=== PATIENT | male | born 2000 | race Caucasian/White ===

== ENCOUNTER 2020-04-01 05:00 | Emergency (ER) | payer OTHER ==
[2020-04-01 06:00] LABS: Basophils % 0.3 % (0-1.3); Hematocrit 43.2 % (39.6-49.0); Lymphocytes % 24.4 % (15.3-44.8); MPV 10.8 fL (7.6-11.3); RBC Red Blood Cell Count 4.96 M/uL (4.33-5.43)
[2020-04-01 06:04] LABS: ALT/SGPT 23 U/L (12-78); AST/SGOT 11 U/L (15-37); Albumin 3.6 g/dL (3.4-5.0); Alkaline Phosphatase 66 U/L (45-117); BUN Blood Urea Nitrogen 11 mg/dL (7-18); Bicarbonate 26 mmol/L (21-32); Bilirubin Direct < 0.1 mg/dL (0-0.2); Bilirubin Total 0.4 mg/dL (0.2-1.0); Glucose Level 102 mg/dL (74-106); Lipase 58 U/L (73-393); Potassium 3.6 mmol/L (3.5-5.1); Protein, Total 7.3 g/dL (6.4-8.2); Sodium Level 143 mmol/L (136-145)
[2020-04-01 07:46] LABS: Urine Blood NEGATIVE (NEG); Urine Glucose NEGATIVE (NEG); Urine Protein NEGATIVE (NEG); Urine Specific Gravity 1.025 (1.005-1.030)
--- NOTE | 2020-04-01 08:36 | RAD REPORT ---
EXAM DESCRIPTION: CTAbdomen Pelvis W Contrast - 04/01/2020 8:08 am CLINICAL HISTORY: Abdominal pain. ABD PAIN COMPARISON: No comparisons TECHNIQUE: Biphasic CT imaging of the abdomen and pelvis was performed with 100 ml non-ionic IV cont rast. All CT scans are performed using dose optimization technique as appropriate and may include automated exposure control or mA/KV adjustment according to patient size. FINDINGS: Mild linear opacities in both lung bases likely subsegmental atelectasis. The liver, spleen, pancreas, adrenal glands and kidneys are within normal limits. No bowel obstruction, free air, free fluid or abscess. Moderate stool is retained throughout the colo n. The appendix is normal. Mild thickening of the soft tissues in umbilical region noted. No evidence of significant lymphadenopathy. No suspicious bony findings. IMPRESSION: Moderate thickening of the soft tissues in the umbilical region noted without hernia or drainable abscess collection. Inflammation or infection in this region is possible. Suggest direct cl inical inspection for further evaluation. Moderate fecal retention in the colon.
--- NOTE | 2020-04-01 08:41 | EDPHYS ---
Physician Documentation [facility] Name: Deon Claudio Age: 19 yrs Sex: Male : 2000 Arrival Date: 04/01/2020 Time: 05:03 Bed 17 Private MD: ED Physician Kevin Pinedo HPI: 04/01 06:21 This 19 yrs old Male presents to ER via Ambulatory with complaints of Abcess mh7 On Belly Button, Fever. 06:22 bleeding at umbilical area. Description: bleeding at umbilical area. Onset: The mh7 symptoms/episode began/occurred today. Possible cause(s): Hernia or tear. Associated signs and symptoms: Pertinent positives: drainage, erythema, Pertinent negatives: erythema, foreign body sensation, headache, nausea, shortness of breath, swelling, vomiting. Modifying factors: the symptoms are alleviated by nothing, the symptoms are aggravated by nothing. 06:31 Severity of symptoms: At their worst the symptoms were moderate, earlier today, in the [facility] emergency department the symptoms have improved, moderately. Historical: - Allergies: 05:20 No Known Allergies; mg2 - PMHx: 05:20 Autism; Rumination Sx; Seizures; mg2 - PSHx: 05:20 None; mg2 - Immunization history:: Flu vaccine is up to date. - Social history:: Smoking status: Patient denies any tobacco usage or history of. Patient/guardian denies using alcohol, street drugs, IV drugs. ROS: 06:34 Unable to obtain ROS due to Autistic minimal verbal communication. 7 Exam: 06:34 Constitutional: This is a well developed, well nourished patient who is awake, alert, mh7 and in no acute distress. Head/Face: Normocephalic, atraumatic. Eyes: Pupils equal round and reactive to light, extra-ocular motions intact. Lids and lashes normal. Conjunctiva and sclera are non-icteric and not injected. Cornea within normal limits. Periorbital areas with no swelling, redness, or edema. Neck: Trachea midline, no thyromegaly or masses palpated, and no cervical lymphadenopathy. Supple, full range of motion without nuchal rigidity, or vertebral point tenderness. No Meningismus. Chest/axilla: Normal chest wall appearance and motion. Nontender with no deformity. No lesions are appreciated. Cardiovascular: Regular rate and rhythm with a normal S1 and S2. No gallops, murmurs, or rubs. Normal PMI, no JVD. No pulse deficits. Respiratory: Lungs have equal breath sounds bilaterally, clear to auscultation and percussion. No rales, rhonchi or wheezes noted. No increased work of breathing, no retractions or nasal flaring. 06:34 Back: No spinal tenderness. No costovertebral tenderness. Full range of motion. MS/ Extremity: Pulses equal, no cyanosis. Neurovascular intact. Full, normal range of motion. Neuro: Awake and alert, GCS 15, oriented to person, place, time, and situation. Cranial nerves II-XII grossly intact. Motor strength 5/5 in all extremities. Sensory grossly intact. Cerebellar exam normal. Normal gait. Psych: Awake, alert, with orientation to person, place and time. Behavior, mood, and affect are within normal limits. 06:34 Abdomen/GI: Inspection: obese dried blood at umbilical area, Bowel sounds: normal, in all quadrants, Palpation: mild abdominal tenderness, in the umbilical area, Indicators: McBurney's point is not tender, De Jesus's sign is negative, Rovsing's sign is negative, Obturator sign is negative, Psoas sign is negative, Liver: no appreciated palpable abnormalities, Hernia: not appreciated. 06:34 Skin: dried blood at umbilical area, no obvious injury after cleaning of area. Vital Signs: 05:14 BP 143 / 68; Pulse 60; Resp 18; Temp 98.8; Pulse Ox 100% on R/A; Weight 154.22 kg; mg2 Height 5 ft. 11 in. (180.34 cm); 05:42 BP 124 / 72; Pulse 65; Resp 19; Pulse Ox 99% ; rr5 07:01 BP 133 / 83; Pulse 62; Resp 18; Pulse Ox 98% on R/A; mg2 07:30 BP 108 / 83; Pulse 65; Resp 16; Pulse Ox 99% on R/A; vg1 08:47 BP 153 / 82; Pulse 59; Resp 14; Pulse Ox 96% on R/A; vg1 09:00 BP 130 / 98; Pulse 60; Resp 16; Pulse Ox 98% on R/A; vg1 05:14 Body Mass Index 47.42 (154.22 kg, 180.34 cm) mg2 MDM: 07:10 Patient medically screened. rn 07:26 Differential diagnosis: abscess, cellulitis, Omphalitis. Data reviewed: vital signs, rn nurses notes, lab test result(s). ED course: Signed out to me by Dr. Batres pending CT abdomen, on exam, patient with dry blood at belly button, no active bleeding, no fluctuance. No abd tenderness. . 08:40 Counseling: I had a detailed discussion with the patient and/or guardian regarding: the rn historical points, exam findings, and any diagnostic results supporting the discharge/admit diagnosis, lab results, radiology results, the need for outpatient follow up, to return to the emergency department if symptoms worsen or persist or if there are any questions or concerns that arise at home. ED course: No acute findings on CT, no drainable abscess, most consistent with Omphalitis. . 04/01 05:23 Order name: Basic Metabolic Panel; Complete Time: 06:19 mh7 04/01 05:23 Order name: CBC with Diff; Complete Time: 06:19 7 04/01 05:23 Order name: Hepatic Function; Complete Time: 06:19 mh7 04/01 05:23 Order name: Lipase; Complete Time: 06:19 mh7 04/01 06:20 Order name: CT Abd/Pelvis - PO and IV Contrast; Complete Time: 08:39 mh7 04/01 07:08 Order name: Urine Dipstick--Ancillary (enter results); Complete Time: 07:58 eb 04/01 05:23 Order name: IV Saline Lock; Complete Time: 05:45 mh7 04/01 05:23 Order name: Labs collected and sent; Complete Time: 05:45 7 04/01 05:23 Order name: Urine Dipstick-Ancillary (obtain specimen); Complete Time: 07:02 mh7 Administered Medications: 08:58 Drug: Benadryl 50 mg Route: IVP; Site: right wrist; vg1 09:06 Follow up: Response: Medication administered at discharge. vg1 Disposition: 04/01/20 08:40 Discharged to Home. Impression: Omphalitis not of . - Condition is Stable. - Discharge Instructions: Cellulitis, Adult. - Prescriptions for Clindamycin HCl 300 mg Oral Capsule - take 1 capsule by ORAL route every 6 hours for 10 days; 40 capsule. - Medication Reconciliation Form, Thank You Letter, Antibiotic Education, Prescription Opioid Use form. - Follow up: Private Physician; When: As needed; Reason: Recheck today's complaints, Re-evaluation by your physician. - Problem is new. - Symptoms have improved. Signatures: Dispatcher [employer] EDKevin Mendiola MD MD rn Gardose, Michele, RN RN mg2 Trang Clemente RN RN vg1 Tramaine Batres MD MD mh7 Corrections: (The following items were deleted from the chart) 09:05 08:40 04/01/2020 08:40 Discharged to Home. Impression: Omphalitis not of . vg1 Condition is Stable. Forms are Medication Reconciliation Form, Thank You Letter, Antibiotic Education, Prescription Opioid Use. Follow up: Private Physician; When: As needed; Reason: Recheck today's complaints, Re-evaluation by your physician. Problem is new. Symptoms have improved. rn
--- NOTE | 2020-04-01 08:41 | ER ---
Nurse's Notes [facility] Name: Deon Claudio Age: 19 yrs Sex: Male : 2000 Arrival Date: 04/01/2020 Time: 05:03 Bed 17 Private MD: Diagnosis: Omphalitis not of Presentation: 04/01 05:14 Chief complaint: Parent and/or Guardian states: patient is nonverbal, [place] [facility] [place] and I notice there is bleeding from his belly ton, he has the same problem before and was admitted to [facility] and they said maybe he has abscess/ulcer/hernia. Coronavirus screen: Client denies travel out of the [place] in the last 14 days. At this time, the client does not indicate any symptoms associated with coronavirus-19. Ebola Screen: No symptoms or risks identified at this time. Initial Sepsis Screen: Does the patient meet any 2 criteria? No. Patient's initial sepsis screen is negative. Does the patient have a suspected source of infection? No. Patient's initial sepsis screen is negative. Risk Assessment: Do you want to hurt yourself or someone else? Patient reports no desire to harm self or others. Onset of symptoms was April 01, 2020. 05:14 [place] Of Arrival[place] [facility] [place] Acuity: JORGE A 3 mg2 Historical: - Allergies: 05:20 No Known Allergies; mg2 - PMHx: 05:20 Autism; Rumination Sx; Seizures; mg2 - PSHx: 05:20 None; mg2 - Immunization history:: Flu vaccine is up to date. - Social history:: Smoking status: Patient denies any tobacco usage or history of. Patient/guardian denies using alcohol, street drugs, IV drugs. Screenin:13 Abuse screen: Denies threats or abuse. Denies injuries from another. Nutritional rr5 screening: No deficits noted. Tuberculosis screening: No symptoms or risk factors identified. Fall Risk Mental Status- Overestimates/Forgets Limitations (15 pts.). Total Tadeo Fall Scale indicates No Risk (0-24 pts). Assessment: 05:20 General: Appears in no apparent distress. comfortable, Behavior is quiet. Pain: Unable rr5 to use pain scale. Patient appears quiet. Neuro: Level of Consciousness is awake, obeys commands. Cardiovascular: Capillary refill < 3 seconds Patient's skin is warm and dry. Respiratory: Airway is patent Respiratory effort is even, unlabored, Respiratory pattern is regular, symmetrical. GI: Abdomen is dry blood noted on the umbilical area Parent/caregiver reports the patient having bleeding on the belly button. 05:20 : No signs and/or symptoms were reported regarding the genitourinary system. EENT: No rr5 signs and/or symptoms were reported regarding the EENT system. Derm: Skin is intact, is healthy with good turgor, Skin temperature is warm. Musculoskeletal: Capillary refill < 3 seconds. 06:38 Reassessment: Patient appears in no apparent distress at this time. oral contrast rr5 consumed. CT staff aware. 07:28 General: Appears in no apparent distress. comfortable, Behavior is calm, cooperative. vg1 07:28 Pain: Unable to use pain scale. Patient appears smiling. Neuro: Level of Consciousness vg1 is awake, obeys commands. Cardiovascular: Patient's skin is warm and dry. Respiratory: Airway is patent Respiratory effort is even, unlabored, Respiratory pattern is regular, symmetrical. GI: Abdomen is no bleeding at this time at umbilical. : No signs and/or symptoms were reported regarding the genitourinary system. EENT: No signs and/or symptoms were reported regarding the EENT system. Derm: Skin temperature is warm. Musculoskeletal: Capillary refill < 3 seconds, in bilateral fingers. 07:28 Reassessment: IV site dry and intact. vg1 07:30 Reassessment: Patients mother asked if patient can have 50mg of Benadryl before leaving vg1 the ED. Provider notified. 08:47 Reassessment: Received v/o from Dr Pinedo to give patient 50mg of Benadryl x1. vg1 Vital Signs: 05:14 BP 143 / 68; Pulse 60; Resp 18; Temp 98.8; Pulse Ox 100% on R/A; Weight 154.22 kg; mg2 Height 5 ft. 11 in. (180.34 cm); 05:42 BP 124 / 72; Pulse 65; Resp 19; Pulse Ox 99% ; rr5 07:01 BP 133 / 83; Pulse 62; Resp 18; Pulse Ox 98% on R/A; mg2 07:30 BP 108 / 83; Pulse 65; Resp 16; Pulse Ox 99% on R/A; vg1 08:47 BP 153 / 82; Pulse 59; Resp 14; Pulse Ox 96% on R/A; vg1 09:00 BP 130 / 98; Pulse 60; Resp 16; Pulse Ox 98% on R/A; vg1 05:14 Body Mass Index 47.42 (154.22 kg, 180.34 cm) mg2 ED Course: 05:03 Patient arrived in ED. cl3 05:10 Tramaine Batres MD is Attending Physician. mh7 05:13 Gil Mojica, MOON is Primary Nurse. rr5 05:17 Triage completed. mg2 05:20 Arm band placed on. mg2 05:20 Patient has correct armband on for positive identification. Bed in low position. Call rr5 light in reach. Pulse ox on. NIBP on. 05:40 Inserted saline lock: 20 gauge in right wrist, using aseptic technique. Blood collected.rr5 07:10 Attending Physician role handed off by Tramaine Batres MD rn 07:10 Kevin Pinedo MD is Attending Physician. rn 07:14 Primary Nurse role handed off by Gil Moijca RN vg1 07:14 Trang Clemente RN is Primary Nurse. vg1 08:08 CT Abd/Pelvis - PO and IV Contrast In Process Unspecified. EDMS 08:14 Patient moved back from CT. vg1 09:00 No provider procedures requiring assistance completed. IV discontinued, intact, vg1 bleeding controlled, No redness/swelling at site. Pressure dressing applied. Administered Medications: 08:58 Drug: Benadryl 50 mg Route: IVP; Site: right wrist; vg1 09:06 Follow up: Response: Medication administered at discharge. vg1 Outcome: 08:40 Discharge ordered by . rn 09:04 Discharged to home ambulatory, with family. vg1 09:04 Condition: stable 09:04 Discharge instructions given to patient, family, Instructed on discharge instructions, follow up and referral plans. medication usage, Demonstrated understanding of instructions, follow-up care, medications, Prescriptions given X 1. 09:05 Patient left the ED. vg1 Signatures: Dispatcher [employer] EDMS Kevin Pinedo MD MD rn Gardose, Michele, RN RN mg2 Gil Mojica RN RN rr5 Dominic Mcallister cl3 Trang Clemente RN RN vg1 Batres, Tramaine, MD MD mh7
[2020-04-01] MEDS ORDERED: DIPHENHYDRAMINE 50 MG/ML VIAL ONE (09:07)
[2020-04-03 09:02] VITALS: TEMP 98.8
[2020-04-03 09:06] VITALS: BP 108/83; O2SAT 99
== END 2020-04-01 09:05 | disposition home or self-care (01) ==
LOC: ER 05:00
DX: L08.82 Omphalitis not of newborn (principal); F84.0 Autistic disorder
CPT/HCPCS: 85025; 80048; 36415; 80076; 81003; 83690; 74177; 96374; 99284; Q9967; J1200

== ENCOUNTER 2024-02-02 09:13 | Observation (INO) | payer OTHER ==
[2024-02-02 09:47] LABS: Absolute Eosinophils 0.4 K/uL (0-0.5); Absolute Lymphocytes (CBC) 2.2 K/uL (0.7-4.9); Absolute Monocytes 0.4 K/uL (0.1-1.3); Absolute Neutrophil 5.9 K/uL (1.8-8.0); Basophils % 0.4 % (0-1.3); Eosinophils % 4.7 % (0-4.4); Hemoglobin 15.2 g/dL (13.6-17.9); MCH 28.7 pg (27.0-35.0); MCHC 33.1 g/dL (32.0-36.0); MCV 86.6 fL (80-100); MPV 9.1 fL (7.6-11.3); Neutrophils % 65.9 % (41.7-73.7); Nucleated Red Blood Cells % 0.1 % (0-0); Platelets 257 thou/uL (152-406); RBC Red Blood Cell Count 5.31 M/uL (4.33-5.43); Red Cell Distribution Width 13.5 % (12.1-15.2)
--- OUTSIDE RECORDS SUMMARY | 2024-02-02 09:49 | XMS REPORT | Continuity of Care Document ---
Author Name Unknown Address [address] [place] [address] [facility] Address 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 Attending Clinician Unavailable JOE BLANK Attending Clinician Unavailable Doctor Unassigned, [place] Attending Clinician U Hilda Rowell MD Attending Clinician [phone] HARMEET GUTIERREZ Attending Clinician UnavailHARMEET Delgado Attending Clinician Unavaila Alta Bass MD Attending Clinician [phone] ALTA SALDAÑA Attending Clinician Unavailable Harmeet Gutierrez MD Attending Clinician + [phone] Jose Truong MD Attending Clinician +- [phone] Jackson Daley DO Attending Clinician [phone] LISA JAQUEZ Attending Clinician Unavailable JOSE TRUONG Attending Clinician Unavail able JOSE TRUONG Attending Clinician Unavail able Manda HARRIS, Alex Attending Clinician [phone] MELISA REDDY Attending Clinician Unavailable Martin MUSTAFA, Aziza Ruelas Attending Clinician Unavailab Garima Sebastian DO Attending Clinician + [phone] Sonya Escobedo RN Attending Clinician Unavailable Dominique Becker Attending Clinician +- [phone] Lab, Adc Fam Pob I Attending Clinician Unavailab HILDA Bar Attending Clinician Unavaila VIVIANE Morocho Attending Clinician Percy Link MD, Viviane Samuel Attending Clinician [phone] Trace HARRIS, Leeanna Ruelas Attending Clinician + [phone] UNKNOWN, ATTENDING Attending Clinician Unavailab Surya Orozco MD Attending Clinician +[phone] Nahomy Carey RN Attending Clinician Unavailable Provider, [facility] Attending Clinician Un available Juliet Mercado RN Attending Clinician Unavailable Only, Adc Test Attending Clinician Unavailable Katia Amador RN Attending Clinician UnavailRuss Ahuja MD Attending Clinician [phone] Jan Franco MD Attending Clinician [phone] Delores Noel Attending Clinician [phone] POOJA NEGRON Attending Clinician UnavailLyubov Weber RN Attending Clinician Unav ailable 2, Adc Lab Attending Clinician Unavailable ALEX VILLAGOMEZ Attending Clinician Unavailable Grabiel Govea MD Attending Clinician [phone] Sandra Veliz Attending Clinician [phone] RUPERT SORTO Attending Clinician Unavailable Miriam Sofia MD Attending Clinician + [phone] PÉREZ Admitting Clinician Unavailable Russ Wright MD Admitting Clinician [phone] DO RUPERT SORTO Admitting Clinician Unavailable Payers Payer Name Policy Type Policy Number Effective Date Expirati on Date Source [facility] [id number] 2011 00:00:00 [place] [facility] [id number] 2014 00:00:00 [facility] [id number] 2020 00:00:00 MARIA ELENA [id number] 2011 00:00:00 [facility] [place] (MEDICAID [place]) [id number] 2020 00:00:00 [facility] [place] (MEDICAID HMO) [id number] 2015 00:00:00 2020 00:00:00 Problems Condition Name Condition Details Condition Category Status Onset Date Resolution Date Last Treatment Date Treating Clinician Comments Source Insomnia due to medical condition Insomnia due to medical condition Disease Active 2019-04 00:00: 00 [facility] Restless legs Restless legs Disease Active 2019-04 00:00: 00 [facility] Essential hypertensi on Essential hypertensi on Disease Active 11-10 00:00: 00 [facility] Morbid obesity with body mass index of 40.0-49.9 Morbid obesity with body mass index of 40.0-49.9 Disease Active 10-26 00:00: 00 [facility] Morbid obesity with body mass index of 40.0-49.9 Morbid obesity with body mass index of 40.0-49.9 Disease Active 10-26 00:00: 00 [facility] Fatty liver Fatty liver Disease Active 2017-04 00:00: 00 [facility] 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 Low HDL, elevated TG [facility] Other seasonal allergic rhinitis Other seasonal allergic rhinitis Disease Active 12-24 00:00: 00 Overview: Formattin g of this note might be different from the original. Can be severe when active, seasonal in nature [facility] Eye inflammati on Eye inflammati on Disease Active 4- 00:00: 00 [facility] Tardive dyskinesia Tardive dyskinesia Disease Active 3- 00:00: 00 [facility] Seizures Seizures Disease Active 2014-04 00:00: 00 Overview: Formattin g of this note might be different from the original. New onset seizure - 5 with an unclear trigger. He was hospitali zed at [facility]/Galv eston 03/31 - 5. Head CT and MRI done and were negative. Referred to Dr. Cardona - Neurologdenise bull and has an appointme nt on 05/23/2015 .Update 12/21/2017 : [facility] neurology December 15, 2017, see Care Toño olivier for details - recommend ed to continue Onfi, one year follow-up . [facility] ADHD (attention deficit hyperactiv ity disorder), combined type ADHD (attention deficit hyperactiv ity disorder), combined type Disease Active 2014-04 2 00:00: 00 [facility] Medication management Do not delete Medication management Do not delete Disease Active 05-22 00:00: 00 Overview: Formattin g of this note might be different from the original. 05/22/14 Started Phenergan supp 50 mg BID Started Intuniv 4 mg 1-2 times daily Started Celexa 20 mg daily08-21 Trial Ritalin 20mg TI/31/05 015 Stop phenergan supposito angle Start Phenergan 50 mg BID06/14/19 15 Stop Celexa, increased aggressio n, emotional ity, and irritabil ity Start Lexapro 20 mg06/29/14 Phenergan 50 mg TID - continues to vomit on BID dose Trazodone 100 mg bed time - to help sleep Concrta 54 mg - not started (medicaid ) Lexapro 30 mg - increased from 20 to better control anxiety and self harm Clonidine 0.3 mg tab at bed time started by his PCP Intuniv 4mgx2 in Trial of Concerta 54 mg failed, became aggressiv 03/20/15 Start Concerta 18 mg daily Increase to Intuniv 8 mg in the morning and 4 mg in the [id number] -23-15 Resume afternoon intuniv (family had omitted) Trial invega 1.5 mg04/26/19 16 Increase Invega to [id number] 6 Increase Invega to 6mg Dc trazodon (needs higher doses and QT prolongat ion risk cannot be avoided) Trial Topamax 100mg HS or BID Change lexapro 30mg to home from school instead of bedtime Trial seroquel 100mg for sleep Decrease Topamax to 24zb1-19- 16 D/c invega as possibly causing seizure activity (possibly advanced too quickly) Decrease Topamax to 50mg in PM and 25mg In AM07-14-15 Current meds: Intuniv 4mg BID; continue antiobiot ic eyedrops; seroquel 150 qHs and 50 in AM prn; continue clonidine .3mg HS New trial Briggs 300 TID, Florometh lone eye drops; hold zoloft for now Increase lorazepam 1mg BID D/c lexapro (not helping, maybe causing agitation )07-17-15 Lorazepam at 2mg BID New Trial Luvox 25-50/ Increase Luvox 50 mg daily Stop 50 mg AM dose of Seroquel Increase lithium to 450 mg TID Increase lorazepam to 2 mg TID 08-16-15 Decrease lorazepam to 1-1-2mg Clobazam started by Neurologi for seizure Trial of Neurontin 300 mg upto TID for sleep Attempt to wean Seroquel 10/03/15 Trial Vyvanse 40mg (for appetite suppressi on)12/20/15 Vyvanse was stopped- parents felt it made him scared/an xiolg09-5 -16 Trial Amantadin e 100 BID 7 Increase Phenergan 50 mg to BID dosing [facility] Obstructiv e sleep apnea Obstructiv e sleep apnea Disease Active 2013-04- 00:00: 00 [facility] Rumination disorder Rumination disorder Disease Active - 00:00: 00 Overview: Formattin g of this note might be different from the original. Has appointme nt with Dr. Lebron - [facility] Gastroent erologist on 04/24/2015 . [facility] Increased body mass index Increased body mass index Disease Active 6 00:00: 00 [facility] Esophageal reflux Esophageal reflux Disease Active [facility] Autism spectrum disorder Autism Spectrum Disorder Problem Active [facility] Cellulitis Cellulitis Disease Resolve d - 00:00: 00 2017-04-21 00:00:00 2017-04-21 10:10:35 [facility] Acute urinary tract infection Acute urinary tract infection Disease Resolve d 2014-04 00:00: 00 2015-07-06 00:00:00 2021-10-27 00:38:59 [facility] Allergies, Adverse Reactions, Alerts Allergy Name Allergy Type Status Severity Reaction(s) Onset Date Inactive Date Treating Clinician Comments Source No Known Drug Allergie s DA Active U 05-11 00:00: 00 [facility] NO KNOWN ALLERGIE S Drug Class Active [facility] Family History Family Member Diagnosis Comments Start Date Stop Date Sourc e Maternal Grandfather Diabetes [facility] Maternal Grandfather Heart [facility] Maternal Grandfather Hypertension [facility] Maternal Grandmother Hypertension [facility] Mother Allergies [facility] Mother Asthma [facility] Mother Diabetes [facility] Mother Hypertension [facility] Mother Neurological [facility] Mother Thyroid [facility] Paternal Grandfather Diabetes [facility] Paternal Grandfather Hypertension [facility] Paternal Grandmother Hypertension [facility] Sister Neurological [facility] Sister Other - see comments [facility] Maternal grandfather Diabetes [facility] Maternal grandfather Heart [facility] Maternal grandfather Hypertension [facility] Maternal grandmother Hypertension [facility] Natural [facility] mother Ast[facility] Natural mother [facility] Natural [facility] Hy[facility] Natural mother Thy[facility] Paternal grandmother Diabetes [facility] Paternal grandmother Hypertension [facility] Natural sister [facility]rological [facility] Natural sister Other - see comments [facility] Social History Social Habit Start Date Stop Date Quantity Comments Source Sexual orientation [facility] Exposure to SARS-CoV-2 (event) 2020-12-09 00:00:00 2021-01-08 20:32:00 Unable to assess [facility] Alcohol intake 2021-01-08 00:00:00 2021-01-08 00:00:00 Current non-drinker of alcohol (finding) [facility] Alcoholic beverage intake 2021-01-08 00:00:00 2021-01-08 00:00:00 Current non-drinker of alcohol (finding) [facility] History of Social function 2020-02-03 00:00:00 2020-02-03 00:00:00 [facility] Tobacco use and exposure 2017-10-26 00:00:00 2017-10-26 00:00:00 Smokeless tobacco non-user [facility] Sex assigned at 2000 00:00:00 2000 00:00:00 [facility] Smoking Status Start Date Stop Date Source Never smoked tobacco [facility] Medications Ordered Medication Name Filled Medication Name Start Date Stop Date Current Medication? Ordering Clinician Indication Dosage Frequency Signature (SIG) Comments Components Source mupirocin 2 % ointment 11-14 00:00: 00 Yes [id number] Apply to area(s) 3 (three) times daily. [facility] amoxicillin -clavulanat e (AUGMENTIN) 875-125 mg per tablet 11-14 00:00: 00 11-25 04:59 :00 Yes [id number] 1{tbl} Take 1 tablet by mouth in the morning and 1 tablet in the evening. Do all this for 10 days. [facility] mupirocin 2 % ointment 2 00:00: 00 Yes [id number] Apply to area(s) 3 (three) times daily. [facility] CLOBAZAM 10 mg Tab 4-13 00:00: 00 Yes [id number] TAKE 1 TABLET BY MOUTH EVERY MORNING AND 2 AT BEDTIME [facility] QUEtiapine 400 mg tablet 2-05 00:00: 00 Yes [id number] 600mg Take 1.5 tablets by mouth at bedtime. [facility] sennosides (SENOKOT) 8.6 mg tablet 1-15 00:00: 00 05-12 05:59 :00 No [id number] 8.6mg Take 1 tablet by mouth daily for 14 days. [facility] lithium carbonate CR 300 mg SR tablet 1- 00:00: 00 Yes [id number] 300mg Take 1 tablet by mouth 2 (two) times daily. [facility] QUEtiapine (SEROQUEL) tablet 100 mg - 15:00: 00 Yes 100mg 100 mg, Oral, QAM, First dose on 04/22/20 at 0900, Until Discontinu ed, Routine [facility] divalproex ER (DEPAKOTE ER) 24 hr tablet 500 mg 04-22 15:00: 00 Yes 500mg 500 mg, Oral, QAM, First dose on 04/22/20 at 0900, Until Discontinu ed, Routine [facility] docusate (COLACE) capsule 100 mg - 04:15: 00 Yes 100mg 100 mg, Oral, QHS, First dose on 04/21/20 at 2215, Until Discontinu ed, Routine [facility] melatonin (MELATIN) tablet 3 mg 04-22 04:15: 00 Yes 3mg 3 mg, Oral, QHS, First dose on 04/21/20 at 2215, Until Discontinu ed, Routine [facility] zolpidem (AMBIEN) tablet 10 mg - 04:15: 00 Yes 10mg 10 mg, Oral, QPM, First dose on 04/21/20 at 2215, Until Discontinu ed, VIOLET [facility] QUEtiapine (SEROQUEL) tablet 200 mg 04-22 04:15: 00 Yes 200mg 200 mg, Oral, QPM, First dose on 04/21/20 at 2215, Until Discontinu ed, Routine [facility] divalproex ER (DEPAKOTE ER) 24 hr tablet 1,000 mg 04-22 04:15: 00 Yes 1000mg 1,000 mg, Oral, QPM, First dose on 04/21/20 at 2215, Until Discontinu ed, Routine [facility] sulfamethox azole-trime thoprim (BACTRIM DS) 800-160 mg per tablet 1 tablet 04-22 03:45: 00 04-28 13:59 :00 No 1{tbl} 1 tablet, Oral, BID, 13 doses, First dose on 04/21/20 at 2145, Last dose on Thu04/27/20 at 2000, VIOLET
Re ason for Anti-Infec tive: Documented Infection< br>Documen tarah Infection Site: Abdominal< br>Duratio n of Therapy: 10 days [facility] iohexol (OMNIPAQUE 350 BULK-100 mL) injection 120 mL 04-22 03:15: 00 04-22 02:58 :00 No 120mL 120 mL, Intravenou s, ONCE, 1 dose, 04/21/20 at 2115, Routine [facility] NaCl 0.9% (NS) bolus infusion 1,000 mL 04-22 02:15: 00 04-22 04:46 :00 No 1000mL at 999 mL/hr, 1,000 mL, IV Infusion, ONCE, 1 dose, 04/21/20 at 2015, VIOLET [facility] zolpidem 10 mg tablet 04-20 00:00: 00 Yes [id number] 105 10mg Take 1 tablet by mouth at bedtime as needed for Insomnia. [facility] piperacilli n-tazobacta m (ZOSYN) 3.375 g in NaCl 0.9% (NS) 100 mL MINI-BAG 04-17 20:30: 00 04-17 20:31 :00 No 3.375g 3.375 g, IV Piggyback, ONCE, 1 dose, 04/17/20 at 1430, 100 mL
Reas on for Anti-Infec tive: Documented Infection< br>Documen tarah Infection Site: Abdominal< br>Duratio n of Therapy: Other (see Comments) [facility] iohexol (OMNIPAQUE 350 BULK-150 mL) injection 120 mL 04-17 18:10: 00 04-17 18:10 :00 No 120mL 120 mL, Intravenou s, ONCE, 1 dose, 04/17/20 at 1230, Routine [facility] sulfamethox azole-trime thoprim 800-160 mg per tablet 04-17 00:00: 00 00:00 :00 No [id number] 1{tbl} Take 1 tablet by mouth every 12 (twelve) hours. [facility] pramipexole (MIRAPEX) 0.125 mg tablet 2019-04 00:00: 00 Yes [id number] .125mg Take 1 tablet by mouth at bedtime. [facility] olopatadine (PAZEO) 0.7 % Drop 2019-04 00:00: 00 Yes [id number] 1[drp] Place 1 Drop in each eye daily. [facility] QUEtiapine 50 mg tablet 2019-04 00:00: 00 Yes [id number] Take 1 tablet as needed twice daily. [facility] QUEtiapine (SEROQUEL) 100 mg tablet 2019-04 00:00: 00 05-18 00:00 :00 No [id number] Take 1 tab in the morning and 2 tabs at bedtime. [facility] zolpidem 10 mg tablet 2019-04 00:00: 00 Yes [id number] 105 10mg Take 1 tablet by mouth at bedtime as needed for Insomnia. [facility] olopatadine (PAZEO) 0.7 % Drop 2019-04 00:00: 03-13 00:00 :00 No [id number] 9102 1[drp] Place 1 Drop in each eye daily. [facility] zolpidem 10 mg tablet 2019-04 00:00: 00 Yes [id number] 105 10mg Take 1 tablet by mouth at bedtime as needed for Insomnia. [facility] zolpidem 5 mg tablet 2019-04 00:00: 01-22 00:00 :00 No [id number] 5mg Take 1 tablet by mouth at bedtime. [facility] fexofenadin e 180 mg tablet 01-09 00:00: 03-13 00:00 :00 No [id number] 180mg Take 1 tablet by mouth daily. STOP DIPHENHYDR AMINE [facility] diphenhydrA MINE (BENADRYL) 25 mg capsule 01-01 00:00: 01-09 00:00 :00 No [id number] 25mg Take 1-2 capsules by mouth 2 (two) times daily as needed for Allergies. STOP FEXOFENADI NE. [facility] melatonin 10 mg Tab 12-30 13:25: 51 Yes [id number] 10mg Take 10 mg by mouth at bedtime. [facility] melatonin 10 mg Tab 12-30 08:25: 51 Yes [id number] 10mg Take 10 mg by mouth at bedtime. [facility] olopatadine (PATADAY) 0.1 % ophthalmic solution 12-30 00:00: 01-07 04:59 :00 No [id number] 1[drp] Place 1 Drop in both eyes 2 (two) times daily for 7 days. [facility] guanFACINE ER (INTUNIV ER) 4 mg tablet 11-27 00:00: 00 Yes [id number] 4mg Take 1 tablet by mouth daily. [facility] QUEtiapine (SEROQUEL) 100 mg tablet 11-27 00:00: 03-01 00:00 :00 No [id number] Take 1.5 tabs in the evening. [facility] LORazepam 2 mg tablet 11-27 00:00: 00 01-10 00:00 :00 No [id number] TAKE 1 TABLET BY MOUTH THREE TIMES A DAY [facility] pantoprazol e 40 mg EC tablet 11-24 00:00: 00 12-11 00:00 :00 No [id number] 40mg Take 1 tablet by mouth daily. REPLACES NEXIUM (ESOMEPRAZ OLE). [facility] fexofenadin e 180 mg tablet 11-10 00:00: 00 01-01 00:00 :00 No [id number] 180mg Take 1 tablet by mouth daily. STOP CETIRIZINE . [facility] fexofenadin e 180 mg tablet 11-08 00:00: 00 11-10 00:00 :00 No [id number] 180mg Take 1 tablet by mouth daily. STOP CETIRIZINE . [facility] melatonin 10 mg Tab 10-27 23:11: 56 Yes [id number] 10mg Take 10 mg by mouth at bedtime. [facility] melatonin 10 mg Tab 10-27 21:05: 48 Yes [id number] 10mg Take 10 mg by mouth at bedtime. [facility] pantoprazol e (PROTONIX) EC tablet 40 mg 10-27 14:00: 00 Yes 40mg 40 mg, Oral, DAILY, First dose on Thu10/28/19 at 0900, Until Discontinu ed, Routine [facility] sulfamethox azole-trime thoprim (BACTRIM IV) 400-80 mg/5 mL 160 mg in D5W piggyback 10-27 13:00: 00 Yes 160mg 160 mg, IV Piggyback, Q12H ABX, First dose on Thu10/28/19 at 0800, Until Discontinu ed, 250 mL
Reas on for Anti-Infec tive: Documented Infection< br>Documen tarah Infection Site: Skin / Soft Tissue
Duration of Therapy: Other (see Comments) [facility] QUEtiapine (SEROQUEL) tablet 150 mg 10-27 02:00: 00 Yes 150mg 150 mg, Oral, QHS, First dose on Thu10/27/19 at 2100, Until Discontinu ed, Routine [facility] cloNIDine (CATAPRES) tablet 0.3 mg 10-27 02:00: 00 Yes .3mg 0.3 mg, Oral, QHS, First dose on Maricarmen 10/27/19 at 2100, Until Discontinu ed, Routine [facility] valproate (DEPACON) 500 mg in D5W piggyback 10-27 01:00: 00 Yes 500mg 500 mg, IV Piggyback, BID, First dose on Thu10/27/19 at 1999, Until Discontinu ed, 100 mL [facility] LORazepam (ATIVAN) injection 0.5 mg 10-27 01:00: 00 Yes .5mg 0.5 mg, Slow IV Push, TID, First dose on Maricarmen 10/27/19 at 1999, Until Discontinu ed, Routine [facility] triamcinolo ne acetonide (TRIDERM) 0.1 % cream 10-27 01:00: 00 Yes Topical, BID, First dose on Thu10/27/19 at 2000, Until Discontinu ed, Routine [facility] heparin (porcine) injection 5,000 Units 10-27 01:00: 00 Yes 5000U 5,000 Units, Subcutaneo us, Q12H, First dose on Maricarmen 10/27/19 at 2000, Until Discontinu ed, Routine [facility] fosphenytoi n (CEREBYX) 2,250 mg PE in NaCl 0.9% (NS) piggyback 10-26 23:30: 00 10-27 00:22 :00 No 2250mg{ phenyto in'equi valent} 2,250 mg PE, IV Piggyback, ONCE, 1 dose, [facility] 10/27/19 at 1830, 100 mL [facility] acetaminoph en (TYLENOL) tablet 650 mg 10-26 18:29: 09 Yes 650mg 650 mg, Oral, Q6HPRN, Starting Thu10/27/19 at 1329, Until Discontinu ed, Routine, Pain (scale 4-6), Temp > 38.5 C [facility] docusate (COLACE) capsule 100 mg 10-26 18:29: 09 Yes 100mg 100 mg, Oral, QDAILYPRN, Starting Maricarmen 10/27/19 at 1329, Until Discontinu ed, Routine, Constipati on [facility] melatonin 10 mg Tab 10-26 14:36: 38 Yes [id number] 10mg Take 10 mg by mouth at bedtime. [facility] levETIRAcet am (KEPPRA) in NACL (ISO-OS) 1,000 mg/100 mL RTU 10-26 07:45: 00 10-26 07:00 :00 No 1000mg 1,000 mg, IV Infusion, ONCE, 1 dose, Maricarmen 10/27/19 at 0245, 100 mL [facility] NaCl 0.9% (NS) bolus infusion 1,000 mL 10-26 04:45: 00 10-26 05:05 :00 No 1000mL at 999 mL/hr, 1,000 mL, IV Infusion, ONCE, 1 dose, [facility] 10/26/19 at 2345, STAT [facility] sulfamethox azole-trime thoprim 800-160 mg per tablet 10-18 00:00: 00 10-29 04:59 :00 No [id number] 1{tbl} Take 1 tablet by mouth 2 (two) times daily for 10 days. [facility] ibuprofen 600 mg tablet 10-15 00:00: 00 Yes [id number] 600mg Take 1 tablet by mouth every 6 (six) hours as needed for Pain (scale 4-6). [facility] mupirocin 2 % ointment 10-15 00:00: 00 Yes [id number] Apply to area(s) 3 (three) times daily. [facility] pantoprazol e 40 mg EC tablet 09-28 00:00: 00 11-24 00:00 :00 No [id number] 40mg Take 1 tablet by mouth daily. REPLACES NEXIUM (ESOMEPRAZ OLE). [facility] promethazin e 50 mg tablet 15 00:00: 00 Yes [id number] 50mg Take 1 tablet by mouth 3 (three) times daily. [facility] guanFACINE ER (INTUNIV ER) 4 mg tablet 09-25 00:00: 11-27 00:00 :00 No [id number] 4mg Take 1 tablet by mouth daily. [facility] QUEtiapine (SEROQUEL) 100 mg tablet 09-25 00:00: 00 11-27 00:00 :00 No [id number] Take 1.5 tabs in the evening. [facility] guanFACINE ER (INTUNIV ER) 4 mg tablet 09-22 00:00: 00 09-25 00:00 :00 No [id number] 4mg Take 1 tablet by mouth daily. [facility] QUEtiapine (SEROQUEL) 100 mg tablet 09-22 00:00: 00 09-25 00:00 :00 No [id number] Take 1.5 tabs in the evening. [facility] QUEtiapine (SEROQUEL) 100 mg tablet 08-29 00:00: 00 Yes [id number] Take 1.5 tabs in the evening. [facility] guanFACINE ER (INTUNIV ER) 4 mg tablet 08-29 00:00: 00 Yes [id number] 4mg Take 1 tablet by mouth daily. [facility] guanFACINE ER (INTUNIV ER) 4 mg tablet 4 00:00: 00 Yes [id number] 4mg Take 1 tablet by mouth daily. [facility] QUEtiapine (SEROQUEL) 100 mg tablet 4 00:00: 00 Yes [id number] Take 1.5 tabs in the evening. [facility] sulfamethox azole-trime thoprim (BACTRIM DS) 800-160 mg per tablet 3-24 00:00: 07-15 04:59 :00 No [id number] 1{tbl} Take 1 tablet by mouth 2 (two) times daily for 10 days. [facility] melatonin 10 mg Tab 06-06 22:21: 37 Yes [id number] 10mg Take 10 mg by mouth at bedtime. [facility] guanFACINE ER (INTUNIV ER) 4 mg tablet 06-06 00:00: 00 Yes [id number] 4mg Take 1 tablet by mouth daily. [facility] QUEtiapine (SEROQUEL) 100 mg tablet 06-06 00:00: 00 Yes [id number] Take 1.5 tabs in the evening. [facility] fluvoxaMINE 25 mg tablet 2018-04 00:00: 00 Yes [id number] 50mg Take 2 tablets by mouth at bedtime. Give only one until physician directed [facility] guanFACINE ER (INTUNIV ER) 4 mg tablet 2018-04 00:00: 00 Yes [id number] 4mg Take 1 tablet by mouth daily. [facility] QUEtiapine (SEROQUEL) 100 mg tablet 2018-04 00:00: 00 Yes [id number] Take 1.5 tabs in the evening. [facility] fluvoxaMINE 25 mg tablet 12-06 00:00: 00 Yes [id number] 50mg Take 2 tablets by mouth at bedtime. Give only one until physician directed [facility] guanFACINE ER (INTUNIV ER) 4 mg tablet 12-06 00:00: 00 Yes [id number] 4mg Take 1 tablet by mouth daily. [facility] QUEtiapine (SEROQUEL) 100 mg tablet 12-06 00:00: 00 Yes [id number] Take 1.5 tabs in the evening. [facility] triamcinolo ne acetonide 0.1 % cream 11-18 00:00: 00 Yes [id number] Apply to area(s) 2 (two) times daily. [facility] fexofenadin e 60 mg tablet 11-18 00:00: 00 07-04 00:00 :00 No [id number] 60mg Take 1 tablet by mouth daily. [facility] fluvoxaMINE 25 mg tablet 11-09 00:00: 00 Yes [id number] 50mg Take 2 tablets by mouth at bedtime. Give only one until physician directed [facility] guanFACINE ER (INTUNIV ER) 4 mg tablet 11-09 00:00: 00 Yes [id number] 4mg Take 1 tablet by mouth daily. [facility] melatonin 10 mg Tab 07-05 20:22: 13 Yes [id number] 10mg Take 10 mg by mouth at bedtime. [facility] QUEtiapine (SEROQUEL) 100 mg tablet 07-05 00:00: 00 Yes [id number] Take 1.5 tabs in the evening. [facility] white petrolatum- mineral oil (ARTIFICIAL TEARS) 83-15 % ophthalmic ointment 07-05 00:00: 00 07-04 00:00 :00 No .5[in_u s] Place 0.5 Inches in both eyes at bedtime. [facility] 24 HR Guanfacine 2 MG Extended Release Oral Tablet 24 HR Guanfacine 2 MG Extended Release Oral Tablet Yes 2mg QD [facility] (LUF/LI V/SA) Clonidine Oral Clonidine Oral Yes .3mg [facility] (LUF/LI V/SA) Fluvoxamine Maleate 25 MG Oral Tablet Fluvoxamine Maleate 25 MG Oral Tablet Yes 25mg [facility] (LUF/LI V/SA) azelastine 137 mcg-flutica sone 50 mcg/spray nasal spray ADMINISTER 2 SPRAYS INTO AFFECTED NOSTRIL(S) 2 TIMES A DAY. azelastine 137 mcg-flutica sone 50 mcg/spray nasal spray ADMINISTER 2 SPRAYS INTO AFFECTED NOSTRIL(S) 2 TIMES A DAY. No azelastine 137 mcg-flutic asone 50 mcg/spray nasal spray ADMINISTER 2 SPRAYS INTO AFFECTED NOSTRIL(S) 2 TIMES A DAY. [facility] Benadryl 25 mg capsule Benadryl 25 mg capsule No Benadryl 25 mg capsule [facility] Briggs Carbonate Briggs Carbonate Yes 300mg BID [facility] (LUF/LI V/SA) carbamazepi ne 200 mg tablet TAKE 1 TABLET BY MOUTH EVERY DAY carbamazepi ne 200 mg tablet TAKE 1 TABLET BY MOUTH EVERY DAY No carbamazep ine 200 mg tablet TAKE 1 TABLET BY MOUTH EVERY DAY [facility] cetirizine 10 mg tablet cetirizine 10 mg tablet No cetirizine 10 mg tablet [facility] clobazam 10 mg tablet TAKE 1 TABLET BY MOUTH EVERY MORNING AND 2 EVERY EVENING clobazam 10 mg tablet TAKE 1 TABLET BY MOUTH EVERY MORNING AND 2 EVERY EVENING No clobazam 10 mg tablet TAKE 1 TABLET BY MOUTH EVERY MORNING AND 2 EVERY EVENING [facility] Briggs Carbonate Briggs Carbonate Yes 450mg [facility] (LUF/LI V/SA) clonidine HCl 0.3 mg tablet clonidine HCl 0.3 mg tablet No clonidine HCl 0.3 mg tablet [facility] diazepam 10 mg tablet diazepam 10 mg tablet No diazepam 10 mg tablet [facility] Loratadine Loratadine Yes 10mg QD [facility] (LUF/LI V/SA) diazepam 5 mg tablet TAKE 1 TABLET BY MOUTH AT BEDTIME NEEDED (FOR INSOMNIA, REPEAT IN 1 HOUR IF NEEDED). diazepam 5 mg tablet TAKE 1 TABLET BY MOUTH AT BEDTIME NEEDED (FOR INSOMNIA, REPEAT IN 1 HOUR IF NEEDED). No diazepam 5 mg tablet TAKE 1 TABLET BY MOUTH AT BEDTIME NEEDED (FOR INSOMNIA, REPEAT IN 1 HOUR IF NEEDED). [facility] divalproex 500 mg tablet,ramirez yed release divalproex 500 mg tablet,ramirez yed release No divalproex 500 mg tablet,del ayed release [facility] esomeprazol e magnesium 40 mg capsule,del ayed release TAKE 1 CAPSULE (40 MG TOTAL) BY MOUTH 1 (ONE) TIME EACH DAY DO NOT OPEN CAPSULE. esomeprazol e magnesium 40 mg capsule,del ayed release TAKE 1 CAPSULE (40 MG TOTAL) BY MOUTH 1 (ONE) TIME EACH DAY DO NOT OPEN CAPSULE. No esomeprazo le magnesium 40 mg capsule,de layed release TAKE 1 CAPSULE (40 MG TOTAL) BY MOUTH 1 (ONE) TIME EACH DAY DO NOT OPEN CAPSULE. [facility] fluticasone propionate 50 mcg/actuati on nasal spray,suspe nsion SPRAY 1 SPRAY INTO EACH NOSTRIL EVERY NIGHT fluticasone propionate 50 mcg/actuati on nasal spray,suspe nsion SPRAY 1 SPRAY INTO EACH NOSTRIL EVERY NIGHT No fluticason e propionate 50 mcg/actuat ion nasal spray,susp ension SPRAY 1 SPRAY INTO EACH NOSTRIL EVERY NIGHT [facility] fluvoxamine 50 mg tablet TAKE 1 TABLET BY MOUTH EVERYDAY AT BEDTIME fluvoxamine 50 mg tablet TAKE 1 TABLET BY MOUTH EVERYDAY AT BEDTIME No fluvoxamin e 50 mg tablet TAKE 1 TABLET BY MOUTH EVERYDAY AT BEDTIME [facility] guanfacine 2 mg tablet TAKE 2 TABLETS BY MOUTH AT 5pm guanfacine 2 mg tablet TAKE 2 TABLETS BY MOUTH AT 5pm No guanfacine 2 mg tablet TAKE 2 TABLETS BY MOUTH AT 5pm [facility] guanfacine ER 4 mg tablet,exte nded release 24 hr Take 1 tablet every day by oral route in the morning for 30 days. guanfacine ER 4 mg tablet,exte nded release 24 hr Take 1 tablet every day by oral route in the morning for 30 days. No 1 Q1D guanfacine ER 4 mg tablet,ext ended release 24 hr Take 1 tablet every day by oral route in the morning for 30 days. [facility] Melatonin Melatonin Yes 10mg [facility] (LUF/LI V/SA) lithium carbonate 300 mg capsule lithium carbonate 300 mg capsule No lithium carbonate 300 mg capsule [facility] lithium carbonate 300 mg tablet lithium carbonate 300 mg tablet No lithium carbonate 300 mg tablet [facility] lithium carbonate ER 300 mg tablet,exte nded release Take 4 tablets every day by oral route with meals for 30 days. lithium carbonate ER 300 mg tablet,exte nded release Take 4 tablets every day by oral route with meals for 30 days. No 4 Q1D lithium carbonate ER 300 mg tablet,ext ended release Take 4 tablets every day by oral route with meals for 30 days. [facility] Ondansetron 8 MG Oral Tablet Ondansetron 8 MG Oral Tablet Yes nausea and vomiting 8mg QD [facility] (LUF/LI V/SA) loratadine 10 mg tablet TAKE 1 TABLET BY MOUTH EVERY DAY loratadine 10 mg tablet TAKE 1 TABLET BY MOUTH EVERY DAY No loratadine 10 mg tablet TAKE 1 TABLET BY MOUTH EVERY DAY [facility] lorazepam 2 mg tablet Take 1 tablet 3 times a day by oral route with meals for 30 days. lorazepam 2 mg tablet Take 1 tablet 3 times a day by oral route with meals for 30 days. No lorazepam 2 mg tablet Take 1 tablet 3 times a day by oral route with meals for 30 days. [facility] melatonin melatonin No melatonin [facility] montelukast 10 mg tablet TAKE 1 TABLET BY MOUTH AT BED TIME. montelukast 10 mg tablet TAKE 1 TABLET BY MOUTH AT BED TIME. No montelukas t 10 mg tablet TAKE 1 TABLET BY MOUTH AT BED TIME. [facility] neomycin-po lymyxin-dex ameth 3.5 mg/mL-10,00 0 unit/mL-0.1 % eye drops neomycin-po lymyxin-dex ameth 3.5 mg/mL-10,00 0 unit/mL-0.1 % eye drops No neomycin-p olymyxin-d exameth 3.5 mg/mL-10,0 00 unit/mL-0. 1% eye drops [facility] ondansetron 8 mg disintegrat ing tablet TAKE 1 TABLET BY MOUTH EVERY 8 HOURS IF NEEDED FOR NAUSEA OR VOMITING. ondansetron 8 mg disintegrat ing tablet TAKE 1 TABLET BY MOUTH EVERY 8 HOURS IF NEEDED FOR NAUSEA OR VOMITING. No ondansetro n 8 mg disintegra ting tablet TAKE 1 TABLET BY MOUTH EVERY 8 HOURS IF NEEDED FOR NAUSEA OR VOMITING. [facility] promethazin e 50 mg tablet TAKE 1 TABLET (50 MG TOTAL) BY MOUTH EVERY 6 (SIX) HOURS IF NEEDED FOR NAUSEA OR VOMITING promethazin e 50 mg tablet TAKE 1 TABLET (50 MG TOTAL) BY MOUTH EVERY 6 (SIX) HOURS IF NEEDED FOR NAUSEA OR VOMITING No promethazi ne 50 mg tablet TAKE 1 TABLET (50 MG TOTAL) BY MOUTH EVERY 6 (SIX) HOURS IF NEEDED FOR NAUSEA OR VOMITING [facility] quetiapine 25 mg tablet TAKE 1 TABLET BY MOUTH TWICE DAILY NEEDED quetiapine 25 mg tablet TAKE 1 TABLET BY MOUTH TWICE DAILY NEEDED No quetiapine 25 mg tablet TAKE 1 TABLET BY MOUTH TWICE DAILY [facility] aripiprazol e 5 mg tablet Take 1 tablet every day by oral route with meals for 30 days. aripiprazol e 5 mg tablet Take 1 tablet every day by oral route with meals for 30 days. No 1 Q1D aripiprazo le 5 mg tablet Take 1 tablet every day by oral route with meals for 30 days. [facility] quetiapine 25 MG Oral Tablet quetiapine 25 MG Oral Tablet Yes 25mg QD [facility] (LU/LI V/SA) lorazepam 1 mg tablet TAKE 1 TABLET BY MOUTH IN THE MORNING & AT LUNCH, AND 1 TABLETS BY MOUTH AT BEDTIME. lorazepam 1 mg tablet TAKE 1 TABLET BY MOUTH IN THE MORNING & AT LUNCH, AND 1 TABLETS BY MOUTH AT BEDTIME. No lorazepam 1 mg tablet TAKE 1 TABLET BY MOUTH IN THE MORNING & AT LUNCH, AND 1 TABLETS BY MOUTH AT BEDTIME. [facility] olopatadine 0.2 % eye drops olopatadine 0.2 % eye drops No olopatadin e 0.2 % eye drops [facility] omeprazole 40 mg capsule,del ayed release omeprazole 40 mg capsule,del ayed release No omeprazole 40 mg capsule,de layed release [facility] topiramate 25 mg tablet topiramate 25 mg tablet No topiramate 25 mg tablet [facility] topiramate 50 mg tablet TAKE 1 TABLET BY MOUTH TWICE A DAY topiramate 50 mg tablet TAKE 1 TABLET BY MOUTH TWICE A DAY No topiramate 50 mg tablet TAKE 1 TABLET BY MOUTH TWICE A DAY [facility] cephalexin 500 mg capsule TAKE 1 CAPSULE BY MOUTH 4 TIMES DAILY FOR 7 DAYS. cephalexin 500 mg capsule TAKE 1 CAPSULE BY MOUTH 4 TIMES DAILY FOR 7 DAYS. No cephalexin 500 mg capsule TAKE 1 CAPSULE BY MOUTH 4 TIMES DAILY FOR 7 DAYS. [facility] metformin ER 500 mg tablet,exte nded release 24 hr metformin ER 500 mg tablet,exte nded release 24 hr No metformin ER 500 mg tablet,ext ended release 24 hr [facility] Ozempic 0.25 mg or 0.5 mg (2 mg/3 mL) subcutaneou s pen injector INJECT 0.5 MG SUBCUTANEOU SLY WEEKLY Ozempic 0.25 mg or 0.5 mg (2 mg/3 mL) subcutaneou s pen injector INJECT 0.5 MG SUBCUTANEOU SLY WEEKLY No Ozempic 0.25 mg or 0.5 mg (2 mg/3 mL) subcutaneo us pen injector INJECT 0.5 MG SUBCUTANEO USLY WEEKLY [facility] Pazeo 0.7 % eye drops Pazeo 0.7 % eye drops No Pazeo 0.7 % eye drops [facility] hydroxyzine pamoate 50 mg capsule TAKE 2 CAPSULES BY MOUTH AT BEDTIME hydroxyzine pamoate 50 mg capsule TAKE 2 CAPSULES BY MOUTH AT BEDTIME No hydroxyzin e pamoate 50 mg capsule TAKE 2 CAPSULES BY MOUTH AT BEDTIME [facility] metformin 500 mg tablet TAKE 1 TABLET (500MG TOTAL) BY MOUTH IN THE MORNING AND TAKE 1 TABLET IN THE EVENING WITH MEALS metformin 500 mg tablet TAKE 1 TABLET (500MG TOTAL) BY MOUTH IN THE MORNING AND TAKE 1 TABLET IN THE EVENING WITH MEALS No metformin 500 mg tablet TAKE 1 TABLET (500MG TOTAL) BY MOUTH IN THE MORNING AND TAKE 1 TABLET IN THE EVENING WITH MEALS [facility] trazodone 100 mg tablet Take 1 tablet every day by oral route at bedtime for 30 days. trazodone 100 mg tablet Take 1 tablet every day by oral route at bedtime for 30 days. No 1 Q1D trazodone 100 mg tablet Take 1 tablet every day by oral route at bedtime for 30 days. [facility] quetiapine 400 mg tablet Take 1 tablet every day by oral route at bedtime for 30 days. quetiapine 400 mg tablet Take 1 tablet every day by oral route at bedtime for 30 days. No 1 Q1D quetiapine 400 mg tablet Take 1 tablet every day by oral route at bedtime for 30 days. [facility] Immunizations Ordered Immunization Name Filled Immunization Name Date Status Comments Source Influenza Virus Vaccine Quad .5 mL IM 2020-03-13 00:00:00 Completed [facility] Influenza Virus Vaccine Quad .5 mL IM 6+ MO 2020-03-13 00:00:00 Completed [facility] Influenza Virus Vaccine Quad .5 mL IM 2020-03-13 00:00:00 Completed [facility] Influenza Virus Vaccine Quad .5 mL IM 6+ 2020-03-13 00:00:00 Completed [facility] Influenza Virus Vaccine Quad .5 mL IM 62020-03-13 00:00:00 Completed [facility] Influenza Virus Vaccine Quad .5 mL IM 2020-03-13 00:00:00 Completed [facility] Influenza Virus Vaccine Quad .5 mL IM 62020-03-13 00:00:00 Completed [facility] Influenza Virus Vaccine Quad .5 mL IM 6+ 2020-03-13 00:00:00 Completed [facility] Influenza Virus Vaccine Quad .5 mL IM 6+ MO 2020-03-13 00:00:00 Completed [facility] Influenza Virus Vaccine Quad .5 mL IM 6+ 2020-03-13 00:00:00 Completed [facility] Influenza Virus Vaccine Quad .5 mL IM 62020-03-13 00:00:00 Completed [facility] Influenza Virus Vaccine Quad .5 mL IM 6+ MO 2020-03-13 00:00:00 Completed [facility] Influenza Virus Vaccine Quad .5 mL IM 6+ MO 2020-03-13 00:00:00 Completed [facility] Influenza Virus Vaccine Quad .5 mL IM 6+ MO 2020-03-13 00:00:00 Completed [facility] Influenza Virus Vaccine Quad .5 mL IM 6+ MO 2020-03-13 00:00:00 Completed [facility] Influenza Virus Vaccine Quad .5 mL IM 6+ MO 2020-03-13 00:00:00 Completed [facility] Influenza Virus Vaccine Quad .5 mL IM 6+ MO 2020-03-13 00:00:00 Completed [facility] Influenza Virus Vaccine Quad .5 mL IM 6+ MO 2020-03-13 00:00:00 Completed [facility] Influenza Virus Vaccine Quad .5 mL IM 6+ MO 2020-03-13 00:00:00 Completed [facility] Influenza Virus Vaccine Quad .5 mL IM 6+ MO 2020-03-13 00:00:00 Completed [facility] Influenza Virus Vaccine Quad .5 mL IM 6+ MO 2020-03-13 00:00:00 Completed [facility] Influenza Virus Vaccine Quad .5 mL IM 6+ MO 2020-03-13 00:00:00 Completed [facility] Influenza Virus Vaccine Quad .5 mL IM 6+ MO 2020-03-13 00:00:00 Completed [facility] Influenza Virus Vaccine Quad .5 mL IM 6+ MO 2020-03-13 00:00:00 Completed [facility] Influenza Virus Vaccine Quad .5 mL IM 6+ MO 2020-03-13 00:00:00 Completed [facility] Influenza Virus Vaccine Quad .5 mL IM 6+ MO 2020-03-13 00:00:00 Completed [facility] Influenza Virus Vaccine Quad .5 mL IM 6+ MO 2020-03-13 00:00:00 Completed [facility] Influenza Virus Vaccine Quad .5 mL IM 6+ MO 2020-03-13 00:00:00 Completed [facility] Influenza Virus Vaccine Quad .5 mL IM 6+ MO 2020-03-13 00:00:00 Completed [facility] Influenza Virus Vaccine Quad .5 mL IM 6+ MO 2020-03-13 00:00:00 Completed [facility] Influenza Virus Vaccine Quad .5 mL IM 6+ MO 2020-03-13 00:00:00 Completed [facility] Influenza Virus Vaccine Quad .5 mL IM 6+ MO 2020-03-13 00:00:00 Completed [facility] Influenza Virus Vaccine Quad .5 mL IM 6+ MO 2020-03-13 00:00:00 Completed [facility] Influenza Virus Vaccine Quad .5 mL IM 6+ MO 2020-03-13 00:00:00 Completed [facility] Influenza Virus Vaccine Quad .5 mL IM 6+ MO 2020-03-13 00:00:00 Completed [facility] Influenza Virus Vaccine Quad .5 mL IM 6+ MO 2020-03-13 00:00:00 Completed [facility] Influenza Virus Vaccine Quad .5 mL IM 6+ MO 2020-03-13 00:00:00 Completed [facility] Influenza Virus Vaccine Quad .5 mL IM 6+ MO 2020-03-13 00:00:00 Completed [facility] Influenza Virus Vaccine Quad .5 mL IM 6+ MO 2020-03-13 00:00:00 Completed [facility] Influenza Virus Vaccine Quad .5 mL IM + MO 2020-03-13 00:00:00 Completed [facility] Influenza Virus Vaccine Quad .5 mL IM 6+ MO 2020-03-13 00:00:00 Completed [facility] Influenza Virus Vaccine Quad .5 mL IM 6+ MO 2020-03-13 00:00:00 Completed [facility] Influenza Virus Vaccine Quad .5 mL IM 6 MO 2020-03-13 00:00:00 Completed [facility] Influenza Virus Vaccine Quad .5 mL IM 6+ MO 2020-03-13 00:00:00 Completed [facility] Influenza Virus Vaccine Quad .5 mL IM 6+ MO 2020-03-13 00:00:00 Completed [facility] Influenza Virus Vaccine Quad .5 mL IM 6+ MO 2020-03-13 00:00:00 Completed [facility] Influenza Virus Vaccine Quad .5 mL IM 6+ MO 2020-03-13 00:00:00 Completed [facility] Influenza Virus Vaccine Quad .5 mL IM 6+ MO 2020-03-13 00:00:00 Completed [facility] Influenza Virus Vaccine Quad .5 mL IM 6+ MO 2020-03-13 00:00:00 Completed [facility] Influenza Virus Vaccine Quad .5 mL IM 6+ MO 2020-03-13 00:00:00 Completed [facility] Influenza Virus Vaccine Quad .5 mL IM 6+ MO 2020-03-13 00:00:00 Completed [facility] Influenza Virus Vaccine Quad .5 mL IM 6+ MO 2020-03-13 00:00:00 Completed [facility] Influenza Virus Vaccine Quad .5 mL IM 6+ MO 2020-03-13 00:00:00 Completed [facility] Influenza Virus Vaccine Quad .5 mL IM 6+ MO 2020-03-13 00:00:00 Completed [facility] Influenza Virus Vaccine Quad .5 mL IM 6+ MO 2020-03-13 00:00:00 Completed [facility] Influenza Virus Vaccine Quad .5 mL IM 6+ MO 2020-03-13 00:00:00 Completed [facility] Influenza Virus Vaccine Quad .5 mL IM 6+ MO 2020-03-13 00:00:00 Completed [facility] Influenza Virus Vaccine Quad .5 mL IM 6+ MO 2020-03-13 00:00:00 Completed [facility] Influenza Virus Vaccine Quad .5 mL IM 6 MO 2020-03-13 00:00:00 Completed [facility] Influenza Virus Vaccine Quad .5 mL IM 6+ MO 2020-03-13 00:00:00 Completed [facility] Influenza Virus Vaccine Quad .5 mL IM 6 MO 2020-03-13 00:00:00 Completed [facility] Influenza Virus Vaccine Quad .5 mL IM 6+ MO 2020-03-13 00:00:00 Completed [facility] Influenza Virus Vaccine Quad .5 mL IM MO 2020-03-13 00:00:00 Completed [facility] Influenza Virus Vaccine Quad .5 mL IM 6+ MO 2020-03-13 00:00:00 Completed [facility] Influenza Virus Vaccine Quad .5 mL IM 6+ MO 2020-03-13 00:00:00 Completed [facility] Influenza Virus Vaccine Quad .5 mL IM 6+ MO 2020-03-13 00:00:00 Completed [facility] Influenza Virus Vaccine Quad .5 mL IM 6+ MO 2020-03-13 00:00:00 Completed [facility] Influenza Virus Vaccine Quad .5 mL IM 6+ MO 2020-03-13 00:00:00 Completed [facility] Influenza Virus Vaccine Quad .5 mL IM 6+ MO 2020-03-13 00:00:00 Completed [facility] Influenza Virus Vaccine Quad .5 mL IM 6+ MO 2020-03-13 00:00:00 Completed [facility] Influenza Virus Vaccine Quad .5 mL IM 6+ MO 2020-03-13 00:00:00 Completed [facility] Influenza Virus Vaccine Quad .5 mL IM 6+ MO 2020-03-13 00:00:00 Completed [facility] Influenza Virus Vaccine Quad .5 mL IM 6+ MO 2020-03-13 00:00:00 Completed [facility] Influenza Virus Vaccine Quad .5 mL IM 6+ MO 2020-03-13 00:00:00 Completed [facility] Influenza Virus Vaccine Quad .5 mL IM 6+ MO 2020-03-13 00:00:00 Completed [facility] Influenza Virus Vaccine Quad .5 mL IM 6+ MO 2020-03-13 00:00:00 Completed [facility] Influenza Virus Vaccine Quad .5 mL IM + MO 2020-03-13 00:00:00 Completed [facility] Influenza Virus Vaccine Quad .5 mL IM 6+ MO 2020-03-13 00:00:00 Completed [facility] Influenza Virus Vaccine Quad .5 mL IM 6+ MO 2020-03-13 00:00:00 Completed [facility] Influenza Virus Vaccine Quad .5 mL IM 6+ 2020-03-13 00:00:00 Completed [facility] Influenza Virus Vaccine Quad .5 mL IM 6+ MO 2020-03-13 00:00:00 Completed [facility] Influenza Virus Vaccine Quad .5 mL IM 6+ MO 2020-03-13 00:00:00 Completed [facility] Influenza Virus Vaccine Quad .5 mL IM 6+ MO 2020-03-13 00:00:00 Completed [facility] Meningococcal Polysaccharide (groups A, C, Y and W-135) conjugate vaccine (MCV4P) 2016-07-23 00:00:00 Completed [facility] Meningococcal Polysaccharide (groups A, C, Y and W-135) conjugate vaccine (MCV4P) 2016-07-23 00:00:00 Completed [facility] Meningococcal Polysaccharide (groups A, C, Y and W-135) conjugate vaccine (MCV4P) 2016-07-23 00:00:00 Completed [facility] Meningococcal Polysaccharide (groups A, C, Y and W-135) conjugate vaccine (MCV4P) 2016-07-23 00:00:00 Completed [facility] Meningococcal Polysaccharide (groups A, C, Y and W-135) conjugate vaccine (MCV4P) 2016-07-23 00:00:00 Completed [facility] Meningococcal Polysaccharide (groups A, C, Y and W-135) conjugate vaccine (MCV4P) 2016-07-23 00:00:00 Completed [facility] Meningococcal Polysaccharide (groups A, C, Y and W-135) conjugate vaccine (MCV4P) 2016-07-23 00:00:00 Completed [facility] Meningococcal Polysaccharide (groups A, C, Y and W-135) conjugate vaccine (MCV4P) 2016-07-23 00:00:00 Completed [facility] Meningococcal Polysaccharide (groups A, C, Y and W-135) conjugate vaccine (MCV4P) 2016-07-23 00:00:00 Completed [facility] Meningococcal Polysaccharide (groups A, C, Y and W-135) conjugate vaccine (MCV4P) 2016-07-23 00:00:00 Completed [facility] Meningococcal Polysaccharide (groups A, C, Y and W-135) conjugate vaccine (MCV4P) 2016-07-23 00:00:00 Completed [facility] Meningococcal Polysaccharide (groups A, C, Y and W-135) conjugate vaccine (MCV4P) 2016-07-23 00:00:00 Completed [facility] Meningococcal Polysaccharide (groups A, C, Y and W-135) conjugate vaccine (MCV4P) 2016-07-23 00:00:00 Completed [facility] Meningococcal Polysaccharide (groups A, C, Y and W-135) conjugate vaccine (MCV4P) 2016-07-23 00:00:00 Completed [facility] Meningococcal Polysaccharide (groups A, C, Y and W-135) conjugate vaccine (MCV4P) 2016-07-23 00:00:00 Completed [facility] Meningococcal Polysaccharide (groups A, C, Y and W-135) conjugate vaccine (MCV4P) 2016-07-23 00:00:00 Completed [facility] Meningococcal Polysaccharide (groups A, C, Y and W-135) conjugate vaccine (MCV4P) 2016-07-23 00:00:00 Completed [facility] Meningococcal Polysaccharide (groups A, C, Y and W-135) conjugate vaccine (MCV4P) 2016-07-23 00:00:00 Completed [facility] Meningococcal Polysaccharide (groups A, C, Y and W-135) conjugate vaccine (MCV4P) 2016-07-23 00:00:00 Completed [facility] Meningococcal Polysaccharide (groups A, C, Y and W-135) conjugate vaccine (MCV4P) 2016-07-23 00:00:00 Completed [facility] Meningococcal Polysaccharide (groups A, C, Y and W-135) conjugate vaccine (MCV4P) 2016-07-23 00:00:00 Completed [facility] Meningococcal Polysaccharide (groups A, C, Y and W-135) conjugate vaccine (MCV4P) 2016-07-23 00:00:00 Completed [facility] Meningococcal Polysaccharide (groups A, C, Y and W-135) conjugate vaccine (MCV4P) 2016-07-23 00:00:00 Completed [facility] Meningococcal Polysaccharide (groups A, C, Y and W-135) conjugate vaccine (MCV4P) 2016-07-23 00:00:00 Completed [facility] Meningococcal Polysaccharide (groups A, C, Y and W-135) conjugate vaccine (MCV4P) 2016-07-23 00:00:00 Completed [facility] Meningococcal Polysaccharide (groups A, C, Y and W-135) conjugate vaccine (MCV4P) 2016-07-23 00:00:00 Completed [facility] Meningococcal Polysaccharide (groups A, C, Y and W-135) conjugate vaccine (MCV4P) 2016-07-23 00:00:00 Completed [facility] Meningococcal Polysaccharide (groups A, C, Y and W-135) conjugate vaccine (MCV4P) 2016-07-23 00:00:00 Completed [facility] Meningococcal Polysaccharide (groups A, C, Y and W-135) conjugate vaccine (MCV4P) 2016-07-23 00:00:00 Completed [facility] Meningococcal Polysaccharide (groups A, C, Y and W-135) conjugate vaccine (MCV4P) 2016-07-23 00:00:00 Completed [facility] Meningococcal Polysaccharide (groups A, C, Y and W-135) conjugate vaccine (MCV4P) 2016-07-23 00:00:00 Completed [facility] Meningococcal Polysaccharide (groups A, C, Y and W-135) conjugate vaccine (MCV4P) 2016-07-23 00:00:00 Completed [facility] Meningococcal Polysaccharide (groups A, C, Y and W-135) conjugate vaccine (MCV4P) 2016-07-23 00:00:00 Completed [facility] Meningococcal Polysaccharide (groups A, C, Y and W-135) conjugate vaccine (MCV4P) 2016-07-23 00:00:00 Completed [facility] Meningococcal Polysaccharide (groups A, C, Y and W-135) conjugate vaccine (MCV4P) 2016-07-23 00:00:00 Completed [facility] Meningococcal Polysaccharide (groups A, C, Y and W-135) conjugate vaccine (MCV4P) 2016-07-23 00:00:00 Completed [facility] Meningococcal Polysaccharide (groups A, C, Y and W-135) conjugate vaccine (MCV4P) 2016-07-23 00:00:00 Completed [facility] Meningococcal Polysaccharide (groups A, C, Y and W-135) conjugate vaccine (MCV4P) 2016-07-23 00:00:00 Completed [facility] Meningococcal Polysaccharide (groups A, C, Y and W-135) conjugate vaccine (MCV4P) 2016-07-23 00:00:00 Completed [facility] Meningococcal Polysaccharide (groups A, C, Y and W-135) conjugate vaccine (MCV4P) 2016-07-23 00:00:00 Completed [facility] Meningococcal Polysaccharide (groups A, C, Y and W-135) conjugate vaccine (MCV4P) 2016-07-23 00:00:00 Completed [facility] Meningococcal Polysaccharide (groups A, C, Y and W-135) conjugate vaccine (MCV4P) 2016-07-23 00:00:00 Completed [facility] Meningococcal Polysaccharide (groups A, C, Y and W-135) conjugate vaccine (MCV4P) 2016-07-23 00:00:00 Completed [facility] Meningococcal Polysaccharide (groups A, C, Y and W-135) conjugate vaccine (MCV4P) 2016-07-23 00:00:00 Completed [facility] Meningococcal Polysaccharide (groups A, C, Y and W-135) conjugate vaccine (MCV4P) 2016-07-23 00:00:00 Completed [facility] Meningococcal Polysaccharide (groups A, C, Y and W-135) conjugate vaccine (MCV4P) 2016-07-23 00:00:00 Completed [facility] Meningococcal Polysaccharide (groups A, C, Y and W-135) conjugate vaccine (MCV4P) 2016-07-23 00:00:00 Completed [facility] Meningococcal Polysaccharide (groups A, C, Y and W-135) conjugate vaccine (MCV4P) 2016-07-23 00:00:00 Completed [facility] Meningococcal Polysaccharide (groups A, C, Y and W-135) conjugate vaccine (MCV4P) 2016-07-23 00:00:00 Completed [facility] Meningococcal Polysaccharide (groups A, C, Y and W-135) conjugate vaccine (MCV4P) 2016-07-23 00:00:00 Completed [facility] Meningococcal Polysaccharide (groups A, C, Y and W-135) conjugate vaccine (MCV4P) 2016-07-23 00:00:00 Completed [facility] Meningococcal Polysaccharide (groups A, C, Y and W-135) conjugate vaccine (MCV4P) 2016-07-23 00:00:00 Completed [facility] Meningococcal Polysaccharide (groups A, C, Y and W-135) conjugate vaccine (MCV4P) 2016-07-23 00:00:00 Completed [facility] Meningococcal Polysaccharide (groups A, C, Y and W-135) conjugate vaccine (MCV4P) 2016-07-23 00:00:00 Completed [facility] Meningococcal Polysaccharide (groups A, C, Y and W-135) conjugate vaccine (MCV4P) 2016-07-23 00:00:00 Completed [facility] Meningococcal Polysaccharide (groups A, C, Y and W-135) conjugate vaccine (MCV4P) 2016-07-23 00:00:00 Completed [facility] Meningococcal Polysaccharide (groups A, C, Y and W-135) conjugate vaccine (MCV4P) 2016-07-23 00:00:00 Completed [facility] Meningococcal Polysaccharide (groups A, C, Y and W-135) conjugate vaccine (MCV4P) 2016-07-23 00:00:00 Completed [facility] Meningococcal Polysaccharide (groups A, C, Y and W-135) conjugate vaccine (MCV4P) 2016-07-23 00:00:00 Completed [facility] Meningococcal Polysaccharide (groups A, C, Y and W-135) conjugate vaccine (MCV4P) 2016-07-23 00:00:00 Completed [facility] Meningococcal Polysaccharide (groups A, C, Y and W-135) conjugate vaccine (MCV4P) 2016-07-23 00:00:00 Completed [facility] Meningococcal Polysaccharide (groups A, C, Y and W-135) conjugate vaccine (MCV4P) 2016-07-23 00:00:00 Completed [facility] Meningococcal Polysaccharide (groups A, C, Y and W-135) conjugate vaccine (MCV4P) 2016-07-23 00:00:00 Completed [facility] Meningococcal Polysaccharide (groups A, C, Y and W-135) conjugate vaccine (MCV4P) 2016-07-23 00:00:00 Completed [facility] Meningococcal Polysaccharide (groups A, C, Y and W-135) conjugate vaccine (MCV4P) 2016-07-23 00:00:00 Completed [facility] Meningococcal Polysaccharide (groups A, C, Y and W-135) conjugate vaccine (MCV4P) 2016-07-23 00:00:00 Completed [facility] Meningococcal Polysaccharide (groups A, C, Y and W-135) conjugate vaccine (MCV4P) 2016-07-23 00:00:00 Completed [facility] Meningococcal Polysaccharide (groups A, C, Y and W-135) conjugate vaccine (MCV4P) 2016-07-23 00:00:00 Completed [facility] Meningococcal Polysaccharide (groups A, C, Y and W-135) conjugate vaccine (MCV4P) 2016-07-23 00:00:00 Completed [facility] Meningococcal Polysaccharide (groups A, C, Y and W-135) conjugate vaccine (MCV4P) 2016-07-23 00:00:00 Completed [facility] Meningococcal Polysaccharide (groups A, C, Y and W-135) conjugate vaccine (MCV4P) 2016-07-23 00:00:00 Completed [facility] Meningococcal Polysaccharide (groups A, C, Y and W-135) conjugate vaccine (MCV4P) 2016-07-23 00:00:00 Completed [facility] Meningococcal Polysaccharide (groups A, C, Y and W-135) conjugate vaccine (MCV4P) 2016-07-23 00:00:00 Completed [facility] Meningococcal Polysaccharide (groups A, C, Y and W-135) conjugate vaccine (MCV4P) 2016-07-23 00:00:00 Completed [facility] Meningococcal Polysaccharide (groups A, C, Y and W-135) conjugate vaccine (MCV4P) 2016-07-23 00:00:00 Completed [facility] Meningococcal Polysaccharide (groups A, C, Y and W-135) conjugate vaccine (MCV4P) 2016-07-23 00:00:00 Completed [facility] Meningococcal Polysaccharide (groups A, C, Y and W-135) conjugate vaccine (MCV4P) 2016-07-23 00:00:00 Completed [facility] Meningococcal Polysaccharide (groups A, C, Y and W-135) conjugate vaccine (MCV4P) 2016-07-23 00:00:00 Completed [facility] Meningococcal Polysaccharide (groups A, C, Y and W-135) conjugate vaccine (MCV4P) 2016-07-23 00:00:00 Completed [facility] Meningococcal Polysaccharide (groups A, C, Y and W-135) conjugate vaccine (MCV4P) 2016-07-23 00:00:00 Completed [facility] Meningococcal Polysaccharide (groups A, C, Y and W-135) conjugate vaccine (MCV4P) 2016-07-23 00:00:00 Completed [facility] Meningococcal Polysaccharide (groups A, C, Y and W-135) conjugate vaccine (MCV4P) 2016-07-23 00:00:00 Completed [facility] Meningococcal Polysaccharide (groups A, C, Y and W-135) conjugate vaccine (MCV4P) 2016-07-23 00:00:00 Completed [facility] Meningococcal Polysaccharide (groups A, C, Y and W-135) conjugate vaccine (MCV4P) 2016-07-23 00:00:00 Completed [facility] Meningococcal Polysaccharide (groups A, C, Y and W-135) conjugate vaccine (MCV4P) 2016-07-23 00:00:00 Completed [facility] Meningococcal Polysaccharide (groups A, C, Y and W-135) conjugate vaccine (MCV4P) 2016-07-23 00:00:00 Completed [facility] Meningococcal Polysaccharide (groups A, C, Y and W-135) conjugate vaccine (MCV4P) 2016-07-23 00:00:00 Completed [facility] Meningococcal Polysaccharide (groups A, C, Y and W-135) conjugate vaccine (MCV4P) 2016-07-23 00:00:00 Completed [facility] Meningococcal Polysaccharide (groups A, C, Y and W-135) conjugate vaccine (MCV4P) 2016-07-23 00:00:00 Completed [facility] Meningococcal Polysaccharide (groups A, C, Y and W-135) conjugate vaccine (MCV4P) 2016-07-23 00:00:00 Completed [facility] Meningococcal Polysaccharide (groups A, C, Y and W-135) conjugate vaccine (MCV4P) 2016-07-23 00:00:00 Completed [facility] Meningococcal Polysaccharide (groups A, C, Y and W-135) conjugate vaccine (MCV4P) 2016-07-23 00:00:00 Completed [facility] Meningococcal Polysaccharide (groups A, C, Y and W-135) conjugate vaccine (MCV4P) 2016-07-23 00:00:00 Completed [facility] Meningococcal Polysaccharide (groups A, C, Y and W-135) conjugate vaccine (MCV4P) 2016-07-23 00:00:00 Completed [facility] Meningococcal Polysaccharide (groups A, C, Y and W-135) conjugate vaccine (MCV4P) 2016-07-23 00:00:00 Completed [facility] Meningococcal Polysaccharide (groups A, C, Y and W-135) conjugate vaccine (MCV4P) 2016-07-23 00:00:00 Completed [facility] Meningococcal Polysaccharide (groups A, C, Y and W-135) conjugate vaccine (MCV4P) 2016-07-23 00:00:00 Completed [facility] Meningococcal Polysaccharide (groups A, C, Y and W-135) conjugate vaccine (MCV4P) 2016-07-23 00:00:00 Completed [facility] Meningococcal Polysaccharide (groups A, C, Y and W-135) conjugate vaccine (MCV4P) 2016-07-23 00:00:00 Completed [facility] Meningococcal Polysaccharide (groups A, C, Y and W-135) conjugate vaccine (MCV4P) 2016-07-23 00:00:00 Completed [facility] Meningococcal Polysaccharide (groups A, C, Y and W-135) conjugate vaccine (MCV4P) 2016-07-23 00:00:00 Completed [facility] Meningococcal Polysaccharide (groups A, C, Y and W-135) conjugate vaccine (MCV4P) 2016-07-23 00:00:00 Completed [facility] Meningococcal Polysaccharide (groups A, C, Y and W-135) conjugate vaccine (MCV4P) 2016-07-23 00:00:00 Completed [facility] Meningococcal Polysaccharide (groups A, C, Y and W-135) conjugate vaccine (MCV4P) 2016-07-23 00:00:00 Completed [facility] Meningococcal Polysaccharide (groups A, C, Y and W-135) conjugate vaccine (MCV4P) 2016-07-23 00:00:00 Completed [facility] Meningococcal Polysaccharide (groups A, C, Y and W-135) conjugate vaccine (MCV4P) 2016-07-23 00:00:00 Completed [facility] Meningococcal Polysaccharide (groups A, C, Y and W-135) conjugate vaccine (MCV4P) 2016-07-23 00:00:00 Completed [facility] Meningococcal Polysaccharide (groups A, C, Y and W-135) conjugate vaccine (MCV4P) 2016-07-23 00:00:00 Completed [facility] Meningococcal Polysaccharide (groups A, C, Y and W-135) conjugate vaccine (MCV4P) 2016-07-23 00:00:00 Completed [facility] Meningococcal Polysaccharide (groups A, C, Y and W-135) conjugate vaccine (MCV4P) 2016-07-23 00:00:00 Completed [facility] Meningococcal Polysaccharide (groups A, C, Y and W-135) conjugate vaccine (MCV4P) 2016-07-23 00:00:00 Completed [facility] Meningococcal Polysaccharide (groups A, C, Y and W-135) conjugate vaccine (MCV4P) 2016-07-23 00:00:00 Completed [facility] Meningococcal Polysaccharide (groups A, C, Y and W-135) conjugate vaccine (MCV4P) 2016-07-23 00:00:00 Completed [facility] Meningococcal Polysaccharide (groups A, C, Y and W-135) conjugate vaccine (MCV4P) 2016-07-23 00:00:00 Completed [facility] Meningococcal Polysaccharide (groups A, C, Y and W-135) conjugate vaccine (MCV4P) 2016-07-23 00:00:00 Completed [facility] Meningococcal Polysaccharide (groups A, C, Y and W-135) conjugate vaccine (MCV4P) 2016-07-23 00:00:00 Completed [facility] Meningococcal Polysaccharide (groups A, C, Y and W-135) conjugate vaccine (MCV4P) 2016-07-23 00:00:00 Completed [facility] Meningococcal Polysaccharide (groups A, C, Y and W-135) conjugate vaccine (MCV4P) 2016-07-23 00:00:00 Completed [facility] Meningococcal Polysaccharide (groups A, C, Y and W-135) conjugate vaccine (MCV4P) 2016-07-23 00:00:00 Completed [facility] Meningococcal Polysaccharide (groups A, C, Y and W-135) conjugate vaccine (MCV4P) 2016-07-23 00:00:00 Completed [facility] Meningococcal Polysaccharide (groups A, C, Y and W-135) conjugate vaccine (MCV4P) 2016-07-23 00:00:00 Completed [facility] Meningococcal Polysaccharide (groups A, C, Y and W-135) conjugate vaccine (MCV4P) 2016-07-23 00:00:00 Completed [facility] Meningococcal Polysaccharide (groups A, C, Y and W-135) conjugate vaccine (MCV4P) 2016-07-23 00:00:00 Completed [facility] Meningococcal Polysaccharide (groups A, C, Y and W-135) conjugate vaccine (MCV4P) 2016-07-23 00:00:00 Completed [facility] Meningococcal Polysaccharide (groups A, C, Y and W-135) conjugate vaccine (MCV4P) 2016-07-23 00:00:00 Completed [facility] Meningococcal Polysaccharide (groups A, C, Y and W-135) conjugate vaccine (MCV4P) 2016-07-23 00:00:00 Completed [facility] Meningococcal Polysaccharide (groups A, C, Y and W-135) conjugate vaccine (MCV4P) 2016-07-23 00:00:00 Completed [facility] Meningococcal Polysaccharide (groups A, C, Y and W-135) conjugate vaccine (MCV4P) 2016-07-23 00:00:00 Completed [facility] Meningococcal Polysaccharide (groups A, C, Y and W-135) conjugate vaccine (MCV4P) 2016-07-23 00:00:00 Completed [facility] Meningococcal Polysaccharide (groups A, C, Y and W-135) conjugate vaccine (MCV4P) 2016-07-23 00:00:00 Completed [facility] Meningococcal Polysaccharide (groups A, C, Y and W-135) conjugate vaccine (MCV4P) 2016-07-23 00:00:00 Completed [facility] Meningococcal Polysaccharide (groups A, C, Y and W-135) conjugate vaccine (MCV4P) 2016-07-23 00:00:00 Completed [facility] Meningococcal Polysaccharide (groups A, C, Y and W-135) conjugate vaccine (MCV4P) 2016-07-23 00:00:00 Completed [facility] Meningococcal Polysaccharide (groups A, C, Y and W-135) conjugate vaccine (MCV4P) 2016-07-23 00:00:00 Completed [facility] Meningococcal Polysaccharide (groups A, C, Y and W-135) conjugate vaccine (MCV4P) 2016-07-23 00:00:00 Completed [facility] Meningococcal Polysaccharide (groups A, C, Y and W-135) conjugate vaccine (MCV4P) 2016-07-23 00:00:00 Completed [facility] Meningococcal Polysaccharide (groups A, C, Y and W-135) conjugate vaccine (MCV4P) 2016-07-23 00:00:00 Completed [facility] Meningococcal Polysaccharide (groups A, C, Y and W-135) conjugate vaccine (MCV4P) 2016-07-23 00:00:00 Completed [facility] Meningococcal Polysaccharide (groups A, C, Y and W-135) conjugate vaccine (MCV4P) 2016-07-23 00:00:00 Completed [facility] Meningococcal Polysaccharide (groups A, C, Y and W-135) conjugate vaccine (MCV4P) 2016-07-23 00:00:00 Completed [facility] Meningococcal Polysaccharide (groups A, C, Y and W-135) conjugate vaccine (MCV4P) 2016-07-23 00:00:00 Completed [facility] Meningococcal Polysaccharide (groups A, C, Y and W-135) conjugate vaccine (MCV4P) 2016-07-23 00:00:00 Completed [facility] Meningococcal Polysaccharide (groups A, C, Y and W-135) conjugate vaccine (MCV4P) 2016-07-23 00:00:00 Completed [facility] Meningococcal Polysaccharide (groups A, C, Y and W-135) conjugate vaccine (MCV4P) 2016-07-23 00:00:00 Completed [facility] Meningococcal Polysaccharide (groups A, C, Y and W-135) conjugate vaccine (MCV4P) 2016-07-23 00:00:00 Completed [facility] Meningococcal Polysaccharide (groups A, C, Y and W-135) conjugate vaccine (MCV4P) 2016-07-23 00:00:00 Completed [facility] Meningococcal Polysaccharide (groups A, C, Y and W-135) conjugate vaccine (MCV4P) 2016-07-23 00:00:00 Completed [facility] Meningococcal Polysaccharide (groups A, C, Y and W-135) conjugate vaccine (MCV4P) 2016-07-23 00:00:00 Completed [facility] Meningococcal Polysaccharide (groups A, C, Y and W-135) conjugate vaccine (MCV4P) 2016-07-23 00:00:00 Completed [facility] Meningococcal Polysaccharide (groups A, C, Y and W-135) conjugate vaccine (MCV4P) 2016-07-23 00:00:00 Completed [facility] Meningococcal Polysaccharide (groups A, C, Y and W-135) conjugate vaccine (MCV4P) 2016-07-23 00:00:00 [facility] [facility] Meningococcal Polysaccharide (groups A, C, Y and W-135) conjugate vaccine (MCV4P) 2016-07-23 00:00:00 Completed [facility] Meningococcal Polysaccharide (groups A, C, Y and W-135) conjugate vaccine (MCV4P) 2016-07-23 00:00:00 Completed [facility] Meningococcal Polysaccharide (groups A, C, Y and W-135) conjugate vaccine (MCV4P) 2016-07-23 00:00:00 Completed [facility] Meningococcal Polysaccharide (groups A, C, Y and W-135) conjugate vaccine (MCV4P) 2016-07-23 00:00:00 Completed [facility] Meningococcal Polysaccharide (groups A, C, Y and W-135) conjugate vaccine (MCV4P) 2016-07-23 00:00:00 Completed [facility] Meningococcal Polysaccharide (groups A, C, Y and W-135) conjugate vaccine (MCV4P) 2016-07-23 00:00:00 Completed [facility] Meningococcal Polysaccharide (groups A, C, Y and W-135) conjugate vaccine (MCV4P) 2016-07-23 00:00:00 Completed [facility] Meningococcal Polysaccharide (groups A, C, Y and W-135) conjugate vaccine (MCV4P) 2016-07-23 00:00:00 Completed [facility] Meningococcal Polysaccharide (groups A, C, Y and W-135) conjugate vaccine (MCV4P) 2016-07-23 00:00:00 Completed [facility] Meningococcal Polysaccharide (groups A, C, Y and W-135) conjugate vaccine (MCV4P) 2016-07-23 00:00:00 Completed [facility] Meningococcal Polysaccharide (groups A, C, Y and W-135) conjugate vaccine (MCV4P) 2016-07-23 00:00:00 Completed [facility] Meningococcal Polysaccharide (groups A, C, Y and W-135) conjugate vaccine (MCV4P) 2016-07-23 00:00:00 Completed [facility] Meningococcal Polysaccharide (groups A, C, Y and W-135) conjugate vaccine (MCV4P) 2016-07-23 00:00:00 Completed [facility] Meningococcal Polysaccharide (groups A, C, Y and W-135) conjugate vaccine (MCV4P) 2016-07-23 00:00:00 Completed [facility] Meningococcal Polysaccharide (groups A, C, Y and W-135) conjugate vaccine (MCV4P) 2016-07-23 00:00:00 Completed [facility] Meningococcal Polysaccharide (groups A, C, Y and W-135) conjugate vaccine (MCV4P) 2016-07-23 00:00:00 Completed [facility] Meningococcal Polysaccharide (groups A, C, Y and W-135) conjugate vaccine (MCV4P) 2016-07-23 00:00:00 Completed [facility] Meningococcal Polysaccharide (groups A, C, Y and W-135) conjugate vaccine (MCV4P) 2016-07-23 00:00:00 Completed [facility] Meningococcal Polysaccharide (groups A, C, Y and W-135) conjugate vaccine (MCV4P) 2016-07-23 00:00:00 Completed [facility] Meningococcal Polysaccharide (groups A, C, Y and W-135) conjugate vaccine (MCV4P) 2016-07-23 00:00:00 Completed [facility] Meningococcal Polysaccharide (groups A, C, Y and W-135) conjugate vaccine (MCV4P) 2016-07-23 00:00:00 Completed [facility] Meningococcal Polysaccharide (groups A, C, Y and W-135) conjugate vaccine (MCV4P) 2016-07-23 00:00:00 Completed [facility] Meningococcal Polysaccharide (groups A, C, Y and W-135) conjugate vaccine (MCV4P) 2016-07-23 00:00:00 Completed [facility] Meningococcal Polysaccharide (groups A, C, Y and W-135) conjugate vaccine (MCV4P) 2016-07-23 00:00:00 Completed [facility] Meningococcal Polysaccharide (groups A, C, Y and W-135) conjugate vaccine (MCV4P) 2016-07-23 00:00:00 Completed [facility] Meningococcal Polysaccharide (groups A, C, Y and W-135) conjugate vaccine (MCV4P) 2016-07-23 00:00:00 Completed [facility] Meningococcal Polysaccharide (groups A, C, Y and W-135) conjugate vaccine (MCV4P) 2016-07-23 00:00:00 Completed [facility] Meningococcal Polysaccharide (groups A, C, Y and W-135) conjugate vaccine (MCV4P) 2016-07-23 00:00:00 Completed [facility] Meningococcal Polysaccharide (groups A, C, Y and W-135) conjugate vaccine (MCV4P) 2016-07-23 00:00:00 Completed [facility] Meningococcal Polysaccharide (groups A, C, Y and W-135) conjugate vaccine (MCV4P) 2016-07-23 00:00:00 Completed [facility] Meningococcal Polysaccharide (groups A, C, Y and W-135) conjugate vaccine (MCV4P) 2016-07-23 00:00:00 Completed [facility] Meningococcal Polysaccharide (groups A, C, Y and W-135) conjugate vaccine (MCV4P) 2016-07-23 00:00:00 Completed [facility] Meningococcal Polysaccharide (groups A, C, Y and W-135) conjugate vaccine (MCV4P) 2016-07-23 00:00:00 Completed [facility] Meningococcal Polysaccharide (groups A, C, Y and W-135) conjugate vaccine (MCV4P) 2016-07-23 00:00:00 Completed [facility] Meningococcal Polysaccharide (groups A, C, Y and W-135) conjugate vaccine (MCV4P) 2016-07-23 00:00:00 Completed [facility] Meningococcal Polysaccharide (groups A, C, Y and W-135) conjugate vaccine (MCV4P) 2016-07-23 00:00:00 Completed [facility] Meningococcal Polysaccharide (groups A, C, Y and W-135) conjugate vaccine (MCV4P) 2016-07-23 00:00:00 Completed [facility] Meningococcal Polysaccharide (groups A, C, Y and W-135) conjugate vaccine (MCV4P) 2016-07-23 00:00:00 Completed [facility] Meningococcal Polysaccharide (groups A, C, Y and W-135) conjugate vaccine (MCV4P) 2016-07-23 00:00:00 Completed [facility] Meningococcal Polysaccharide (groups A, C, Y and W-135) conjugate vaccine (MCV4P) 2016-07-23 00:00:00 Completed [facility] Meningococcal Polysaccharide (groups A, C, Y and W-135) conjugate vaccine (MCV4P) 2016-07-23 00:00:00 Completed [facility] Meningococcal Polysaccharide (groups A, C, Y and W-135) conjugate vaccine (MCV4P) 2016-07-23 00:00:00 Completed [facility] Meningococcal Polysaccharide (groups A, C, Y and W-135) conjugate vaccine (MCV4P) 2016-07-23 00:00:00 Completed [facility] Meningococcal Polysaccharide (groups A, C, Y and W-135) conjugate vaccine (MCV4P) 2016-07-23 00:00:00 Completed [facility] Meningococcal Polysaccharide (groups A, C, Y and W-135) conjugate vaccine (MCV4P) 2016-07-23 00:00:00 Completed [facility] Meningococcal Polysaccharide (groups A, C, Y and W-135) conjugate vaccine (MCV4P) 2016-07-23 00:00:00 Completed [facility] Meningococcal Polysaccharide (groups A, C, Y and W-135) conjugate vaccine (MCV4P) 2016-07-23 00:00:00 Completed [facility] Meningococcal Polysaccharide (groups A, C, Y and W-135) conjugate vaccine (MCV4P) 2016-07-23 00:00:00 Completed [facility] Meningococcal Polysaccharide (groups A, C, Y and W-135) conjugate vaccine (MCV4P) 2016-07-23 00:00:00 Completed [facility] Meningococcal Polysaccharide (groups A, C, Y and W-135) conjugate vaccine (MCV4P) 2016-07-23 00:00:00 Completed [facility] Meningococcal Polysaccharide (groups A, C, Y and W-135) conjugate vaccine (MCV4P) 2016-07-23 00:00:00 Completed [facility] Meningococcal Polysaccharide (groups A, C, Y and W-135) conjugate vaccine (MCV4P) 2016-07-23 00:00:00 Completed [facility] Meningococcal Polysaccharide (groups A, C, Y and W-135) conjugate vaccine (MCV4P) 2016-07-23 00:00:00 Completed [facility] Meningococcal Polysaccharide (groups A, C, Y and W-135) conjugate vaccine (MCV4P) 2016-07-23 00:00:00 Completed [facility] Meningococcal Polysaccharide (groups A, C, Y and W-135) conjugate vaccine (MCV4P) 2016-07-23 00:00:00 Completed [facility] Meningococcal Polysaccharide (groups A, C, Y and W-135) conjugate vaccine (MCV4P) 2016-07-23 00:00:00 Completed [facility] Meningococcal Polysaccharide (groups A, C, Y and W-135) conjugate vaccine (MCV4P) 2016-07-23 00:00:00 Completed [facility] Meningococcal Polysaccharide (groups A, C, Y and W-135) conjugate vaccine (MCV4P) 2016-07-23 00:00:00 Completed [facility] Meningococcal Polysaccharide (groups A, C, Y and W-135) conjugate vaccine (MCV4P) 2016-07-23 00:00:00 Completed [facility] Meningococcal Polysaccharide (groups A, C, Y and W-135) conjugate vaccine (MCV4P) 2016-07-23 00:00:00 Completed [facility] Meningococcal Polysaccharide (groups A, C, Y and W-135) conjugate vaccine (MCV4P) 2016-07-23 00:00:00 Completed [facility] Meningococcal Polysaccharide (groups A, C, Y and W-135) conjugate vaccine (MCV4P) 2016-07-23 00:00:00 Completed [facility] Meningococcal Polysaccharide (groups A, C, Y and W-135) conjugate vaccine (MCV4P) 2016-07-23 00:00:00 Completed [facility] Meningococcal Polysaccharide (groups A, C, Y and W-135) conjugate vaccine (MCV4P) 2016-07-23 00:00:00 Completed [facility] Meningococcal Polysaccharide (groups A, C, Y and W-135) conjugate vaccine (MCV4P) 2016-07-23 00:00:00 Completed [facility] Meningococcal Polysaccharide (groups A, C, Y and W-135) conjugate vaccine (MCV4P) Unknown Completed [facility] Influenza Virus Vaccine Quad .5 mL IM 6+ MO (FLUZONE/FLULAVAL/FL UARIX) Unknown Completed [facility] Meningococcal Polysaccharide (groups A, C, Y and W-135) conjugate vaccine (MCV4P) Unknown Completed [facility] Influenza Virus Vaccine Quad .5 mL IM 6+ MO (FLUZONE/FLULAVAL/FL UARIX) Unknown Completed [facility] Meningococcal Polysaccharide (groups A, C, Y and W-135) conjugate vaccine (MCV4P) Unknown Completed [facility] Influenza Virus Vaccine Quad .5 mL IM 6+ MO (FLUZONE/FLULAVAL/FL UARIX) Unknown Completed [facility] Meningococcal Polysaccharide (groups A, C, Y and W-135) conjugate vaccine (MCV4P) Unknown Completed [facility] Influenza Virus Vaccine Quad .5 mL IM 6+ MO (FLUZONE/FLULAVAL/FL UARIX) Unknown Completed [facility] Meningococcal Polysaccharide (groups A, C, Y and W-135) conjugate vaccine (MCV4P) Unknown Completed [facility] Influenza Virus Vaccine Quad .5 mL IM 6+ MO (FLUZONE/FLULAVAL/FL UARIX) Unknown Completed [facility] Meningococcal Polysaccharide (groups A, C, Y and W-135) conjugate vaccine (MCV4P) Unknown Completed [facility] Influenza Virus Vaccine Quad .5 mL IM 6+ MO (FLUZONE/FLULAVAL/FL UARIX) Unknown Completed [facility] Meningococcal Polysaccharide (groups A, C, Y and W-135) conjugate vaccine (MCV4P) Unknown Completed [facility] Meningococcal Polysaccharide (groups A, C, Y and W-135) conjugate vaccine (MCV4P) Unknown Completed [facility] Meningococcal Polysaccharide (groups A, C, Y and W-135) conjugate vaccine (MCV4P) Unknown Completed [facility] Meningococcal Polysaccharide (groups A, C, Y and W-135) conjugate vaccine (MCV4P) Unknown Completed [facility] Meningococcal Polysaccharide (groups A, C, Y and W-135) conjugate vaccine (MCV4P) Unknown Completed [facility] Meningococcal Polysaccharide (groups A, C, Y and W-135) conjugate vaccine (MCV4P) Unknown Completed [facility] Meningococcal Polysaccharide (groups A, C, Y and W-135) conjugate vaccine (MCV4P) Unknown Completed [facility] Meningococcal Polysaccharide (groups A, C, Y and W-135) conjugate vaccine (MCV4P) Unknown Completed [facility] Meningococcal Polysaccharide (groups A, C, Y and W-135) conjugate vaccine (MCV4P) Unknown Completed [facility] Influenza Virus Vaccine Quad .5 mL IM 6+ MO (FLUZONE/FLULAVAL/FL UARIX) Unknown Completed [facility] Meningococcal Polysaccharide (groups A, C, Y and W-135) conjugate vaccine (MCV4P) Unknown Completed [facility] Influenza Virus Vaccine Quad .5 mL IM 6+ MO (FLUZONE/FLULAVAL/FL UARIX) Unknown Completed [facility] Meningococcal Polysaccharide (groups A, C, Y and W-135) conjugate vaccine (MCV4P) Unknown Completed [facility] Influenza Virus Vaccine Quad .5 mL IM 6+ MO (FLUZONE/FLULAVAL/FL UARIX) Unknown Completed [facility] Meningococcal Polysaccharide (groups A, C, Y and W-135) conjugate vaccine (MCV4P) Unknown Completed [facility] Influenza Virus Vaccine Quad .5 mL IM 6+ MO (FLUZONE/FLULAVAL/FL UARIX) Unknown Completed [facility] TDAP Unknown Completed [facility] Vital Signs Vital Name Observation Time Observation Value Comments S ource Systolic blood pressure 2023-11-15 22:40:00 130 mm[Hg] [facility] Diastolic blood pressure 2023-11-15 22:40:00 82 mm[Hg] [facility] Heart rate 2023-11-15 22:40:00 97 /min [facility] Body temperature 2023-11-15 22:40:00 36.94 [facility] Respiratory rate 2023-11-15 22:40:00 14 /min [facility] Body height 2023-11-15 22:40:00 175.3 cm [facility] Body weight 2023-11-15 22:40:00 171.823 kg [facility] BMI 2023-11-15 22:40:00 55.94 kg/m2 [facility] Oxygen saturation in Arterial blood by Pulse oximetry 2023-11-15 22:40:00 98 /min [facility] Systolic blood pressure 2023-06-12 02:13:00 143 mm[Hg] [facility] Diastolic blood pressure 2023-06-12 02:13:00 86 mm[Hg] [facility] Heart rate 2023-06-12 02:12:00 89 /min [facility] Body temperature 2023-06-12 02:12:00 36.78 [facility] Respiratory rate 2023-06-12 02:12:00 20 /min [facility] Body weight 2023-06-12 02:12:00 172.775 kg [facility] Oxygen saturation in Arterial blood by Pulse oximetry 2023-06-12 02:12:00 98 /min [facility] Systolic blood pressure 2021-01-09 03:30:00 116 mm[Hg] [facility] Diastolic blood pressure 2021-01-09 03:30:00 56 mm[Hg] [facility] Heart rate 2021-01-09 03:30:00 78 /min [facility] Respiratory rate 2021-01-09 03:30:00 23 /min [facility] Oxygen saturation in Arterial blood by Pulse oximetry 2021-01-09 03:30:00 96 /min [facility] Body temperature 2021-01-09 01:30:00 36.56 [facility] Systolic blood pressure 2020-04-22 04:00:00 158 mm[Hg] [facility] Diastolic blood pressure 2020-04-22 04:00:00 80 mm[Hg] [facility] Heart rate 2020-04-22 04:00:00 58 /min [facility] Respiratory rate 2020-04-22 04:00:00 18 /min [facility] Oxygen saturation in Arterial blood by Pulse oximetry 2020-04-22 04:00:00 96 /min [facility] Body temperature 2020-04-22 02:18:00 36 [facility] Body weight 2020-04-22 02:18:00 157.398 kg [facility] Systolic blood pressure 2020-04-17 20:30:00 135 mm[Hg] [facility] Diastolic blood pressure 2020-04-17 20:30:00 79 mm[Hg] [facility] Heart rate 2020-04-17 20:30:00 63 /min [facility] Respiratory rate 2020-04-17 20:30:00 18 /min [facility] Oxygen saturation in Arterial blood by Pulse oximetry 2020-04-17 20:30:00 99 /min [facility] Body temperature 2020-04-17 17:04:00 36.17 [facility] Body weight 2020-04-17 17:04:00 157.398 kg [facility] Body temperature 2020-03-13 19:29:00 36.72 [facility] Body height 2020-03-13 19:29:00 180.3 cm [facility] Body weight 2020-03-13 19:29:00 157.398 kg [facility] BMI 2020-03-13 19:29:00 48.40 kg/m2 [facility] Systolic blood pressure 2020-02-03 15:09:00 130 mm[Hg] [facility] Diastolic blood pressure 2020-02-03 15:09:00 80 mm[Hg] [facility] Heart rate 2020-02-03 15:09:00 71 /min [facility] Respiratory rate 2020-02-03 15:09:00 16 /min [facility] Body height 2020-02-03 15:09:00 180.3 cm [facility] Body weight 2020-02-03 15:09:00 149.687 kg [facility] BMI 2020-02-03 15:09:00 46.03 kg/m2 [facility] Oxygen saturation in Arterial blood by Pulse oximetry 2020-02-03 15:09:00 98 /min [facility] Systolic blood pressure 2020-01-05 02:53:52 121 mm[Hg] [facility] Diastolic blood pressure 2020-01-05 02:53:52 71 mm[Hg] [facility] Heart rate 2020-01-05 02:53:52 71 /min [facility] Respiratory rate 2020-01-05 02:53:52 20 /min [facility] Oxygen saturation in Arterial blood by Pulse oximetry 2020-01-05 02:53:52 96 /min [facility] Body temperature 2020-01-04 23:53:00 36.22 [facility] Body weight 2020-01-04 23:53:00 145.151 kg [facility] BMI 2020-01-04 23:53:00 44.63 kg/m2 [facility] Systolic blood pressure 2020-01-03 00:48:00 149 mm[Hg] [facility] Diastolic blood pressure 2020-01-03 00:48:00 76 mm[Hg] [facility] Heart rate 2020-01-03 00:48:00 71 /min [facility] Body temperature 2020-01-03 00:48:00 37.17 [facility] Respiratory rate 2020-01-03 00:48:00 23 /min [facility] Body height 2020-01-03 00:48:00 180.3 cm [facility] Body weight 2020-01-03 00:48:00 145.151 kg [facility] BMI 2020-01-03 00:48:00 44.63 kg/m2 [facility] Oxygen saturation in Arterial blood by Pulse oximetry 2020-01-03 00:48:00 97 /min [facility] Systolic blood pressure 2019-12-31 13:29:00 155 mm[Hg] [facility] Diastolic blood pressure 2019-12-31 13:29:00 86 mm[Hg] [facility] Heart rate 2019-12-31 13:24:00 103 /min [facility] Body temperature 2019-12-31 13:24:00 37.11 [facility] Respiratory rate 2019-12-31 13:24:00 16 /min [facility] Body height 2019-12-31 13:24:00 177.8 cm [facility] Body weight 2019-12-31 13:24:00 145.151 kg [facility] BMI 2019-12-31 13:24:00 45.92 kg/m2 [facility] Oxygen saturation in Arterial blood by Pulse oximetry 2019-12-31 13:24:00 97 /min [facility] Systolic blood pressure 2019-10-28 16:23:00 149 mm[Hg] [facility] Diastolic blood pressure 2019-10-28 16:23:00 83 mm[Hg] [facility] Heart rate 2019-10-28 16:23:00 94 /min [facility] Body temperature 2019-10-28 16:23:00 36.61 [facility] Respiratory rate 2019-10-28 16:23:00 17 /min [facility] Oxygen saturation in Arterial blood by Pulse oximetry 2019-10-28 16:23:00 96 /min [facility] Body height 2019-10-27 06:38:00 180.3 cm [facility] Body weight 2019-10-27 06:38:00 145.151 kg [facility] BMI 2019-10-27 06:38:00 44.63 kg/m2 [facility] Systolic blood pressure 2019-10-27 04:00:00 141 mm[Hg] [facility] Diastolic blood pressure 2019-10-27 04:00:00 84 mm[Hg] [facility] Heart rate 2019-10-27 04:00:00 98 /min [facility] Respiratory rate 2019-10-27 04:00:00 21 /min [facility] Oxygen saturation in Arterial blood by Pulse oximetry 2019-10-27 04:00:00 98 /min [facility] Body temperature 2019-10-27 03:37:00 37.06 [facility] Body weight 2019-10-27 01:37:00 145.151 kg [facility] Systolic blood pressure 2019-10-17 04:20:00 142 mm[Hg] [facility] Diastolic blood pressure 2019-10-17 04:20:00 90 mm[Hg] [facility] Heart rate 2019-10-17 04:20:00 97 /min [facility] Respiratory rate 2019-10-17 04:20:00 18 /min [facility] Oxygen saturation in Arterial blood by Pulse oximetry 2019-10-17 04:20:00 98 /min [facility] Body temperature 2019-10-17 01:49:43 37.72 [facility] Body height 2019-10-17 01:48:00 177.8 cm [facility] Body weight 2019-10-17 01:48:00 145.151 kg [facility] BMI 2019-10-17 01:48:00 45.92 kg/m2 [facility] Systolic blood pressure 2018-11-18 22:15:00 118 mm[Hg] [facility] Diastolic blood pressure 2018-11-18 22:15:00 70 mm[Hg] [facility] Heart rate 2018-11-18 21:21:00 76 /min [facility] Body temperature 2018-11-18 21:21:00 36.94 [facility] Body weight 2018-11-18 21:21:00 148.78 kg [facility] Oxygen saturation in Arterial blood by Pulse oximetry 2018-11-18 21:21:00 94 /min [facility] Systolic blood pressure 2021-01-09 03:30:00 116 mm[Hg] [facility] Diastolic blood pressure 2021-01-09 03:30:00 56 mm[Hg] [facility] Heart rate 2021-01-09 03:30:00 78 /min [facility] Respiratory rate 2021-01-09 03:30:00 23 /min [facility] Oxygen saturation in Arterial blood by Pulse oximetry 2021-01-09 03:30:00 96 /min [facility] Body temperature 2021-01-09 01:30:00 36.56 [facility] Respiratory 2020-05-14 03:47:36 No respirato ry distress /min 02 Sat by Pulse Oximetry 2020-05-14 03:47:36 98 /min Body Mass Index 2020-05-14 03:47:36 43.2 Height 2020-05-14 03:47:36 170\\S\\66.93 Pulse Rate 2020-05-14 03:47:36 75 /min Respiratory Rate 2020-05-14 03:47:36 17 /min Temperature 2020-05-14 03:47:36 36.7\\S\\98.1 Weight 2020-05-14 03:47:36 757147\\S\\4409.245 02 Sat by Pulse Oximetry 2020-05-12 09:21:54 98 /min Body Mass Index 2020-05-12 09:21:54 43.2 Height 2020-05-12 09:21:54 170\\S\\66.93 Pulse Rate 2020-05-12 09:21:54 75 /min Respiratory Rate 2020-05-12 09:21:54 17 /min Temperature 2020-05-12 09:21:54 36.7\\S\\98.1 Weight 2020-05-12 09:21:54 [id number]\\S\\4409.245 Respiratory 2020-05-12 09:21:54 No respirato ry distress /min Respiratory 2020-05-12 09:21:53 No respirato ry distress /min Respiratory 2020-05-12 07:53:22 No respirato ry distress /min 02 Sat by Pulse Oximetry 2020-05-12 07:53:22 98 /min Body Mass Index 2020-05-12 07:53:22 43.2 Height 2020-05-12 07:53:22 170\\S\\66.93 Pulse Rate 2020-05-12 07:53:22 75 /min Respiratory Rate 2020-05-12 07:53:22 17 /min Temperature 2020-05-12 07:53:22 36.7\\S\\98.1 Weight 2020-05-12 07:53:22 675233\\S\\4409.245 Respiratory 2020-05-12 07:52:51 No respirato ry distress /min 02 Sat by Pulse Oximetry 2020-05-12 07:52:51 98 /min Body Mass Index 2020-05-12 07:52:51 43.2 Height 2020-05-12 07:52:51 170\\S\\66.93 Pulse Rate 2020-05-12 07:52:51 75 /min Respiratory Rate 2020-05-12 07:52:51 17 /min Temperature 2020-05-12 07:52:51 36.7\\S\\98.1 Weight 2020-05-12 07:52:51 227149\\S\\4409.245 Height 2020-05-12 00:34:24 170\\S\\66.93 Pulse Rate 2020-05-12 00:34:24 74 /min Respiratory Rate 2020-05-12 00:34:24 18 /min Temperature 2020-05-12 00:34:24 36.9\\S\\98.4 Weight 2020-05-12 00:34:24 848442\\S\\4409.245 02 Sat by Pulse Oximetry 2020-05-12 00:34:23 99 /min Body Mass Index 2020-05-12 00:34:23 43.2 02 Sat by Pulse Oximetry 2020-05-11 23:22:21 99 /min Body Mass Index 2020-05-11 23:22:21 43.2 Height 2020-05-11 23:22:21 170\\S\\66.93 Pulse Rate 2020-05-11 23:22:21 74 /min Respiratory Rate 2020-05-11 23:22:21 18 /min Temperature 2020-05-11 23:22:21 36.9\\S\\98.4 Weight 2020-05-11 23:22:21 919262\\S\\4409.245 02 Sat by Pulse Oximetry 2020-05-11 23:21:51 99 /min Body Mass Index 2020-05-11 23:21:51 43.2 Height 2020-05-11 23:21:51 170\\S\\66.93 Pulse Rate 2020-05-11 23:21:51 74 /min Respiratory Rate 2020-05-11 23:21:51 18 /min Temperature 2020-05-11 23:21:51 36.9\\S\\98.4 Weight 2020-05-11 23:21:51 309565\\S\\4409.245 02 Sat by Pulse Oximetry 2020-05-11 22:28:12 99 /min Body Mass Index 2020-05-11 22:28:12 43.2 Height 2020-05-11 22:28:12 170\\S\\66.93 Pulse Rate 2020-05-11 22:28:12 74 /min Respiratory Rate 2020-05-11 22:28:12 18 /min Temperature 2020-05-11 22:28:12 36.9\\S\\98.4 Weight 2020-05-11 22:28:12 759859\\S\\4409.245 02 Sat by Pulse Oximetry 2020-05-11 22:08:51 99 /min Body Mass Index 2020-05-11 22:08:51 43.2 Height 2020-05-11 22:08:51 170\\S\\66.93 Pulse Rate 2020-05-11 22:08:51 74 /min Respiratory Rate 2020-05-11 22:08:51 18 /min Temperature 2020-05-11 22:08:51 36.9\\S\\98.4 Weight 2020-05-11 22:08:51 115463\\S\\4409.245 02 Sat by Pulse Oximetry 2020-05-11 22:05:48 99 /min Body Mass Index 2020-05-11 22:05:48 43.2 Height 2020-05-11 22:05:48 170\\S\\66.93 Pulse Rate 2020-05-11 22:05:48 74 /min Respiratory Rate 2020-05-11 22:05:48 18 /min Temperature 2020-05-11 22:05:48 36.9\\S\\98.4 Weight 2020-05-11 22:05:48 228738\\S\\4409.245 WEIGHT 2020-05-11 22:03:00 125 kg HEIGHT 2020-05-11 22:03:00 170 cm Systolic blood pressure 2020-04-22 04:00:00 158 mm[Hg] [facility] Diastolic blood pressure 2020-04-22 04:00:00 80 mm[Hg] [facility] Heart rate 2020-04-22 04:00:00 58 /min [facility] Respiratory rate 2020-04-22 04:00:00 18 /min [facility] Oxygen saturation in Arterial blood by Pulse oximetry 2020-04-22 04:00:00 96 /min [facility] Body temperature 2020-04-22 02:18:00 36 Let[facility] Body weight 2020-04-22 02:18:00 157.398 kg [facility] Systolic blood pressure 2020-04-17 20:30:00 135 mm[Hg] [facility] Diastolic blood pressure 2020-04-17 20:30:00 79 mm[Hg] [facility] Heart rate 2020-04-17 20:30:00 63 /min [facility] Respiratory rate 2020-04-17 20:30:00 18 /min [facility] Oxygen saturation in Arterial blood by Pulse oximetry 2020-04-17 20:30:00 99 /min [facility] Body temperature 2020-04-17 17:04:00 36.17 Letitia [facility] Body weight 2020-04-17 17:04:00 157.398 kg [facility] Body temperature 2020-03-13 19:29:00 36.72 Letitia [facility] Body height 2020-03-13 19:29:00 180.3 cm [facility] Body weight 2020-03-13 19:29:00 157.398 kg [facility] BMI 2020-03-13 19:29:00 48.40 kg/m2 [facility] Systolic blood pressure 2020-02-03 15:09:00 130 mm[Hg] [facility] Diastolic blood pressure 2020-02-03 15:09:00 80 mm[Hg] [facility] Heart rate 2020-02-03 15:09:00 71 /min [facility] Respiratory rate 2020-02-03 15:09:00 16 /min [facility] Body height 2020-02-03 15:09:00 180.3 cm [facility] Body weight 2020-02-03 15:09:00 149.687 kg [facility] BMI 2020-02-03 15:09:00 46.03 kg/m2 [facility] Oxygen saturation in Arterial blood by Pulse oximetry 2020-02-03 15:09:00 98 /min [facility] Systolic blood pressure 2020-01-11 14:30:00 132 mm[Hg] [facility] Diastolic blood pressure 2020-01-11 14:30:00 87 mm[Hg] [facility] Heart rate 2020-01-11 14:30:00 82 /min [facility] Respiratory rate 2020-01-11 14:30:00 18 /min [facility] Body height 2020-01-11 14:30:00 180.3 cm [facility] Body weight 2020-01-11 14:30:00 150.141 kg [facility] BMI 2020-01-11 14:30:00 46.17 kg/m2 [facility] Systolic blood pressure 2020-01-05 02:53:52 121 mm[Hg] [facility] Diastolic blood pressure 2020-01-05 02:53:52 71 mm[Hg] [facility] Heart rate 2020-01-05 02:53:52 71 /min [facility] Respiratory rate 2020-01-05 02:53:52 20 /min [facility] Oxygen saturation in Arterial blood by Pulse oximetry 2020-01-05 02:53:52 96 /min [facility] Body temperature 2020-01-04 23:53:00 36.22 Letitia [facility] Body weight 2020-01-04 23:53:00 145.151 kg [facility] BMI 2020-01-04 23:53:00 44.63 kg/m2 [facility] Systolic blood pressure 2020-01-03 00:48:00 149 mm[Hg] [facility] Diastolic blood pressure 2020-01-03 00:48:00 76 mm[Hg] [facility] Heart rate 2020-01-03 00:48:00 71 /min [facility] Body temperature 2020-01-03 00:48:00 37.17 Letitia [facility] Respiratory rate 2020-01-03 00:48:00 23 /min [facility] Body height 2020-01-03 00:48:00 180.3 cm [facility] Body weight 2020-01-03 00:48:00 145.151 kg [facility] BMI 2020-01-03 00:48:00 44.63 kg/m2 [facility] Oxygen saturation in Arterial blood by Pulse oximetry 2020-01-03 00:48:00 97 /min [facility] Systolic blood pressure 2019-12-31 13:29:00 155 mm[Hg] [facility] Diastolic blood pressure 2019-12-31 13:29:00 86 mm[Hg] [facility] Heart rate 2019-12-31 13:24:00 103 /min [facility] Body temperature 2019-12-31 13:24:00 37.11 Letitia [facility] Respiratory rate 2019-12-31 13:24:00 16 /min [facility] Body height 2019-12-31 13:24:00 177.8 cm [facility] Body weight 2019-12-31 13:24:00 145.151 kg [facility] BMI 2019-12-31 13:24:00 45.92 kg/m2 [facility] Oxygen saturation in Arterial blood by Pulse oximetry 2019-12-31 13:24:00 97 /min [facility] Systolic blood pressure 2019-10-28 16:23:00 149 mm[Hg] [facility] Diastolic blood pressure 2019-10-28 16:23:00 83 mm[Hg] [facility] Heart rate 2019-10-28 16:23:00 94 /min [facility] Body temperature 2019-10-28 16:23:00 36.61 Let[facility] Respiratory rate 2019-10-28 16:23:00 17 /min [facility] Oxygen saturation in Arterial blood by Pulse oximetry 2019-10-28 16:23:00 96 /min [facility] Body height 2019-10-27 06:38:00 180.3 cm [facility] Body weight 2019-10-27 06:38:00 145.151 kg [facility] BMI 2019-10-27 06:38:00 44.63 kg/m2 [facility] Systolic blood pressure 2019-06-06 22:21:00 122 mm[Hg] [facility] Diastolic blood pressure 2019-06-06 22:21:00 79 mm[Hg] [facility] Heart rate 2019-06-06 22:21:00 72 /min [facility] Respiratory rate 2019-06-06 22:21:00 20 /min [facility] Body height 2019-06-06 22:21:00 177.8 cm [facility] Body weight 2019-06-06 22:21:00 152.545 kg [facility] BMI 2019-06-06 22:21:00 48.25 kg/m2 [facility] Systolic blood pressure 2019-01-24 13:42:00 114 mm[Hg] [place] [facility] Diastolic blood pressure 2019-01-24 13:42:00 77 mm[Hg] [facility] Heart rate 2019-01-24 13:42:00 67 /min [facility] Body temperature 2019-01-24 13:42:00 36.83 Letitia [facility] Respiratory rate 2019-01-24 13:42:00 18 /min [facility] Body height 2019-01-24 13:42:00 177.8 cm [facility] Body weight 2019-01-24 13:42:00 147.419 kg [facility] BMI 2019-01-24 13:42:00 46.63 kg/m2 [facility] Systolic blood pressure 2018-12-06 21:12:00 116 mm[Hg] [facility] Diastolic blood pressure 2018-12-06 21:12:00 78 mm[Hg] [facility] Heart rate 2018-12-06 21:12:00 73 /min [facility] Respiratory rate 2018-12-06 21:12:00 18 /min [facility] Body height 2018-12-06 21:12:00 172.9 cm [facility] Body weight 2018-12-06 21:12:00 148.326 kg [facility] BMI 2018-12-06 21:12:00 49.59 kg/m2 [facility] Body temperature 2018-11-18 21:21:00 36.94 Letitia [facility] Oxygen saturation in Arterial blood by Pulse oximetry 2018-11-18 21:21:00 94 /min [facility] Body Temperature 2018-10-19 18:05:00 98 F [facility] (LUF/NOEL/SA) Pulse Rate 2018-10-19 18:05:00 80 /min [facility] (F/NOEL/[facility]) Respiratory Rate 2018-10-19 18:05:00 18 /min [facility] ([facility] O2% BldC Oximetry 2018-10-19 18:05:00 96 % [facility] ([facility]/NOEL/SA) BP Systolic 2018-10-19 18:05:00 119 mm[Hg] [facility] ([facility]/NOEL/[facility]) BP Diastolic 2018-10-19 18:05:00 75 mm[Hg] [facility] ([facility]/NOEL/[facility]) Weight Measured 2018-10-19 18:05:00 329.81 lbs [facility] ([facility] Systolic blood pressure 2018-07-05 20:21:00 130 mm[Hg] [facility] Diastolic blood pressure 2018-07-05 20:21:00 89 mm[Hg] [facility] Heart rate 2018-07-05 20:21:00 75 /min [facility] Respiratory rate 2018-07-05 20:21:00 18 /min [facility] Body height 2018-07-05 20:21:00 172.8 cm [facility] Body weight 2018-07-05 20:21:00 152 kg [facility] BMI 2018-07-05 20:21:00 50.88 kg/m2 [facility] Body temperature 2018-02-11 20:01:00 36.44 Letitia [facility] Oxygen saturation in Arterial blood by Pulse oximetry 2018-01-16 21:14:00 97 /min [facility] Procedures Procedure Date / Time Performed Performing Clinician Source TDAP VACCINE, >11 YRS, IM 2023-11-15 22:24:58 Douglas Shen [facility] ASSIGNMENT OF BENEFITS 2023-06-12 02:08:38 Doctor Unassigned, [place] [facility] LIPASE 2021-01-09 01:56:00 Alta Saldaña [facility] MAGNESIUM 2021-01-09 01:56:00 Alta Saldaña [facility] COMP. METABOLIC PANEL ([id number]) 2021-01-09 01:56:00 Alta Saldaña [facility] LITHIUM 2021-01-09 01:56:00 Alta Saldaña [facility] CARBAMAZEPINE 2021-01-09 01:56:00 Alta Saldaña [facility] CBC WITH DIFF 2021-01-09 01:56:00 Alta Saldaña [facility] NOTICE OF PRIVACY PRACTICES 2021-01-09 01:27:21 Doctor Unassigned, [place] [facility] CONSENT/REFUSAL FOR DIAGNOSI S AND TREATMENT 2021-01-09 01:27:01 Doctor Unassigned, [place] [facility] INSURANCE CORRESPONDENCE 2020-07-09 05:01:00 Doctor Unassigned, [place] [facility] AUTHORIZATION FOR RELEASE OF PHI 2020-05-25 06:01:00 Doctor Unassigned, [place] [facility] URINALYSIS 2020-04-22 04:46:00 Garima Anglin [facility] URINALYSIS 2020-04-22 04:46:00 Garima Anglin [facility] CT ABDOMEN PELVIS W CONTRAST 2020-04-22 03:03:39 Garima Anglin [facility] CT ABDOMEN PELVIS W CONTRAST 2020-04-22 03:03:39 Garima Anglin [facility] COVID-19 (ID NOW RAPID TESTING) 2020-04-22 02:26:00 Garima Anglin [facility] COVID-19 (ID NOW RAPID TESTING) 2020-04-22 02:26:00 Garima Anglin [facility] LAB ONLY COVID INTERPRETATION 2020-04-22 02:26:00 Garima Anglin [facility] VALPROIC ACID, TOTAL 2020-04-22 02:24:00 Garima Anglin [facility] VALPROIC ACID, TOTAL 2020-04-22 02:24:00 Garima Anglin [facility] LIPASE 2020-04-22 02:17:00 Garima Anglin [facility] HEPATIC FUNCTION PANEL ([id number]) (ALB,T.PRO,BILI T,BU/BC,ALT,AST,ALK PHOS) 2020-04-22 02:17:00 Garima Anglin [facility] BASIC METABOLIC PANEL (NA, K , CL, CO2, GLUCOSE, BUN, CREATININE, CA) 2020-04-22 02:17:00 Garima Anglin [facility] ETHANOL 2020-04-22 02:17:00 Garima Anglin [facility] CBC WITH DIFF 2020-04-22 02:17:00 Garima Anglin [facility] BASIC METABOLIC PANEL (NA, K , CL, CO2, GLUCOSE, BUN, CREATININE, CA) 2020-04-22 02:17:00 Garima Anglin [facility] CBC WITH DIFF 2020-04-22 02:17:00 Garima Anglin [facility] HEPATIC FUNCTION PANEL ([id number]) (ALB,T.PRO,BILI T,BU/BC,ALT,AST,ALK PHOS) 2020-04-22 02:17:00 Garima Anglin [facility] LIPASE 2020-04-22 02:17:00 Garima Anglin [facility] ETHANOL 2020-04-22 02:17:00 Garima Anglin [facility] NOTICE OF PRIVACY PRACTICES 2020-04-22 02:14:45 Doctor Unassigned, [place] [facility] NOTICE OF PRIVACY PRACTICES 2020-04-22 02:14:45 Doctor Unassigned, [place] [facility] CONSENT/REFUSAL FOR DIAGNOSI S AND TREATMENT 2020-04-22 02:14:20 Doctor Unassigned, [place] [facility] CONSENT/REFUSAL FOR DIAGNOSI S AND TREATMENT 2020-04-22 02:14:20 Doctor Unassigned, [place] [facility] EMERGENCY SERVICES AGREEMENT S AND AUTHORIZATIONS 2020-04-21 06:01:00 Doctor Unassigned, [place] [facility] EMERGENCY DEPARTMENT DOCUMENTS 2020-04-21 06:01:00 Doctor Unassigned, [place] [facility] CT ABDOMEN PELVIS W CONTRAST 2020-04-17 18:20:37 Dominique Ngo [facility] CT ABDOMEN PELVIS W CONTRAST 2020-04-17 18:20:37 Dominique Ngo [facility] COVID-19 (ID NOW RAPID TESTING) 2020-04-17 17:35:00 Dominique Ngo [facility] COVID-19 (ID NOW RAPID TESTING) 2020-04-17 17:35:00 Dominique Ngo [facility] WOUND/ASPIRATE OR ABSCESS CULTURE 2020-04-17 17:35:00 Dominique Ngo [facility] WOUND CULTURE 2020-04-17 17:35:00 Dominique Ngo [facility] LAB ONLY COVID INTERPRETATION 2020-04-17 17:35:00 Dominique Ngo [facility] COMP. METABOLIC PANEL ([id number]) 2020-04-17 17:29:00 Dominique Ngo [facility] CBC WITH DIFF 2020-04-17 17:29:00 Dominique Ngo [facility] CBC WITH DIFF 2020-04-17 17:29:00 Dominique Ngo [facility] COMP. METABOLIC PANEL ([id number]) 2020-04-17 17:29:00 Dominique Ngo [facility] MEDICATION CORRESPONDENCE 2020-04-17 06:01:00 Doctor Unassigned, [place] [facility] EMERGENCY SERVICES AGREEMENT S AND AUTHORIZATIONS 2020-04-17 06:01:00 Doctor Unassigned, [place] [facility] EMERGENCY DEPARTMENT DOCUMENTS 2020-04-17 06:01:00 Doctor Unassigned, [place] [facility] DME/SUPPLY JUSTIFICATION 2020-04-17 06:01:00 Doctor Unassigned, [place] [facility] VALPROIC ACID, TOTAL 2020-04-16 14:21:00 Miriam Pascual [facility] MEDICATION CORRESPONDENCE 2020-03-22 06:01:00 Doctor Unassigned, [place] [facility] MEDICATION CORRESPONDENCE 2020-03-22 06:01:00 Doctor Unassigned, [place] [facility] GLYCOSYLATED HEMOGLOBIN (A1C) 2020-03-13 20:13:00 Hilda Akins [facility] COMP. METABOLIC PANEL ([id number]) 2020-03-13 20:13:00 Hilda Akins [facility] FLU VACC (), 6+ MONTHS, IM, QUAD 2020-03-13 19:47:30 Hilda Akins [facility] FLU VACC (), 6+ MONTHS, IM, QUAD 2020-03-13 19:47:30 Hilda Akins [facility] MEDICATION CORRESPONDENCE 2020-01-30 05:01:00 Doctor Unassigned, [place] [facility] DME/SUPPLY JUSTIFICATION 2020-01-25 05:01:00 Doctor Unassigned, [place] [facility] DME/SUPPLY JUSTIFICATION 2020-01-25 05:01:00 Doctor Unassigned, [place] [facility] DME/SUPPLY JUSTIFICATION 2020-01-18 05:01:00 Doctor Unassigned, [place] [facility] DME/SUPPLY JUSTIFICATION 2020-01-18 05:01:00 Doctor Unassigned, [place] [facility] PHYSICIAN ORDERS 2020-01-16 05:01:00 Doctor Unassigned, [place] [facility] PHYSICIAN ORDERS 2020-01-16 05:01:00 Doctor Unassigned, [place] [facility] DME/SUPPLY JUSTIFICATION 2020-01-11 05:01:00 Doctor Unassigned, [place] [facility] CONSENT TO TREATMENT WITH PSYCHOACTIVE MEDICATION 2020-01-11 05:01:00 Doctor Unassigned, [place] [facility] URINALYSIS 2020-01-05 01:44:00 Alta Saldaña [facility] URINALYSIS 2020-01-05 01:44:00 Alta Saldaña [facility] LIPASE 2020-01-05 01:34:00 Alta Saldaña [facility] COMP. METABOLIC PANEL ([id number]) 2020-01-05 01:34:00 Alta Saldaña [facility] CBC WITH DIFF 2020-01-05 01:34:00 Alta Saldaña [facility] CBC WITH DIFF 2020-01-05 01:34:00 Alat Saldaña [facility] COMP. METABOLIC PANEL ([id number]) 2020-01-05 01:34:00 Alta Saldaña [facility] LIPASE 2020-01-05 01:34:00 Alta Sladaña [facility] CONSENT/REFUSAL FOR DIAGNOSI S AND TREATMENT 2020-01-04 23:43:33 Doctor Unassigned, [place] [facility] CONSENT/REFUSAL FOR DIAGNOSI S AND TREATMENT 2020-01-04 23:43:33 Doctor Unassigned, [place] [facility] EMERGENCY SERVICES AGREEMENT S AND AUTHORIZATIONS 2020-01-04 05:01:00 Doctor Unassigned, [place] [facility] EMERGENCY SERVICES AGREEMENT S AND AUTHORIZATIONS 2020-01-02 05:01:00 Doctor Unassigned, [place] [facility] EMERGENCY DEPARTMENT DOCUMENTS 2020-01-02 05:01:00 Doctor Unassigned, [place] [facility] SLEEP STUDY DATA REPORT 2019-12-20 05:01:00 Doctor Unassigned, [place] [facility] SLEEP LAB RESULTS 2019-12-20 05:01:00 Hilda Akins [facility] COVID-19 (ID NOW RAPID TESTING) 2019-12-16 20:46:00 Harmeet Gutierrez [facility] CONSENT/REFUSAL FOR DIAGNOSI S AND TREATMENT 2019-12-16 19:51:39 Doctor Unassigned, [place] [facility] ASSIGNMENT OF BENEFITS 2019-12-16 19:51:23 Doctor Unassigned, [place] [facility] ASSIGNMENT OF BENEFITS 2019-12-16 19:51:23 Doctor Unassigned, [place] [facility] INSURANCE CORRESPONDENCE 2019-11-03 05:01:00 Doctor Unassigned, [place] [facility] BLOOD CULTURE SCREEN 2019-10-28 09:14:00 Laura Rodriguezjessenia [facility] CBC WITH DIFF 2019-10-28 09:14:00 [facility] BASIC METABOLIC PANEL (NA, K , CL, CO2, GLUCOSE, BUN, CREATININE, CA) 2019-10-28 09:14:00 Uriel Rodriguez [facility] MAGNESIUM 2019-10-28 09:14:00 Uriel Rodriguez [facility] PHOSPHORUS 2019-10-28 09:14:00 [facility] 2019-10-28 09:14:00 Ginette Barney [facility] PHOSPHORUS 2019-10-28 09:14[facility]00 [facility] 2019-10-28 09:14:00 Ginette Barney [facility] MAGNESIUM 2019-10-28 09:14:00 Lalo Dumont [facility] BASIC METABOLIC PANEL (NA, K , CL, CO2, GLUCOSE, BUN, CREATININE, CA) 2019-10-28 09:14:00 Lalo Dumont [facility] CBC WITH DIFF 2019-10-28 09:14:00 Lalo Dumont [facility] XR CHEST 1 VW 2019-10-28 02:53:[address] [facility] XR CHEST 1 VW 2019-10-28 02[facility]53[facility] [facility] (NA, K , CL, CO2, GLUCOSE, BUN, CREATININE, CA) 2019-10-27 23:54:00 Lalo Dumont [facility] MAGNESIUM 2019-10-27 23:54:00 Lalo Dumont [facility] PHOSPHORUS 2019-10-27 23:54:00 Lalo Dumont [facility] CREATINE KINASE 2019-10-27 23:54:00 Lalo Hullga [facility] D-DIMER 2019-10-27 23:54:00 Lalo Dumont [facility] THYROID STIMULATING HORMONE 2019-10-27 23:54:00 Lalo Dumont [facility] FERRITIN SERUM 2019-10-27 23:54[facility] ([id number]) (ALB,T.PRO,BILI T,BU/BC,ALT,AST,ALK PHOS) 2019-10-27 23:54:00 Ginette [facility] PHOSPHORUS 2019-10-27 23:54:00 Lalo Dumont [facility] CREATINE KINASE 2019-10-27 23:54:00 Laura Rodriguezjessenia [facility] MAGNESIUM 2019-10-27 23:54:00 [facility] 2019-10-27 23:54:00 Ginette [facility] THYROID STIMULATING HORMONE 2019-10-27 23:54:00 [facility]EL (58550) (ALB,T.PRO,BILI T,BU/BC,ALT,AST,ALK PHOS) 2019-10-27 23:54:00 Ginette [facility] BASIC METABOLIC PANEL (NA, K , CL, CO2, GLUCOSE, BUN, CREATININE, CA) 2019-10-27 23:54:00 Lalo Dumont [facility] D-DIMER 2019-10-27 23:54:00 Lalo Dumont [facility] EKG-12 LEAD 2019-10-27 19:29:28 Russ Wright [facility] URINALYSIS 2019-10-27 19:29:00 Lalo Dumont [facility] URINE CULTURE 2019-10-27 19:29:00 Lalo Dumont [facility] URINALYSIS 2019-10-27 19:29:00 Lalo Dumont [facility] URINE CULTURE 2019-10-27 19:29:00 [facility] 2019-10-27 09:36:00 Surya Ruby [facility] LITHIUM 2019-10-27 09:36:00 Surya Ruby [facility] HOSPITAL ADMISSION 2019-10-27 05:01:00 Doctor Unassigned, [place] [facility] URINALYSIS 2019-10-27 03:48:00 Surya Ruby [facility] URINALYSIS 2019-10-27 03:48:00 Surya Ruby [facility] BASIC METABOLIC PANEL (NA, K , CL, CO2, GLUCOSE, BUN, CREATININE, CA) 2019-10-27 02:54:00 Surya Ruby [facility] CBC WITH DIFFERENTIAL 2019-10-27 02:54:00 Surya Ruby [facility] CBC WITH DIFF 2019-10-27 02:54:00 Surya Ruby [facility] BASIC METABOLIC PANEL (NA, K , CL, CO2, GLUCOSE, BUN, CREATININE, CA) 2019-10-27 02:54:00 Surya Ruby [facility] CBC WITH DIFFERENTIAL 2019-10-27 02:54:00 Surya Ruby [facility] XR CHEST 1 VW 2019-10-27 02:27:05 Surya Ruby [facility] XR CHEST 1 VW 2019-10-27 02:27:05 Surya Ruby [facility] CT HEAD WO CONTRAST 2019-10-27 02:26:13 Surya Ruby [facility] CT HEAD WO CONTRAST 2019-10-27 02:26:13 Surya Ruby [facility] ELECTROENCEPHALOGRAM 2019-10-27 00:00:00 Laura Rodriguezjessenia [facility] ELECTROENCEPHALOGRAM 2019-10-27 00:00:00 Laura Rodriguezjessenia [facility] EMERGENCY SERVICES AGREEMENT S AND AUTHORIZATIONS 2019-10-26 05:01:00 Doctor Unassigned, [place] [facility] EMERGENCY DEPARTMENT DOCUMENTS 2019-10-26 05:01:00 Doctor Unassigned, [place] [facility] COVID-19 (PCR MOLECULAR TESTING) 2019-10-17 04:25:00 Delores Goodwin [facility] NOTICE OF PRIVACY PRACTICES 2019-10-17 01:34:49 Doctor Unassigned, [place] [facility] NOTICE OF PRIVACY PRACTICES 2019-10-17 01:34:49 Doctor Unassigned, [place] [facility] CONSENT/REFUSAL FOR DIAGNOSI S AND TREATMENT 2019-10-17 01:34:36 Doctor Unassigned, [place] [facility] CONSENT/REFUSAL FOR DIAGNOSI S AND TREATMENT 2019-10-17 01:34:36 Doctor Unassigned, [place] [facility] EMERGENCY SERVICES AGREEMENT S AND AUTHORIZATIONS 2019-10-16 05:01:00 Doctor Unassigned, [place] [facility] DME/SUPPLY JUSTIFICATION 2019-10-13 05:01:00 Doctor Unassigned, [place] [facility] DME/SUPPLY JUSTIFICATION 2019-10-13 05:01:00 Doctor Unassigned, [place] [facility] MEDICATION CORRESPONDENCE 2019-09-21 05:01:00 Doctor Unassigned, [place] [facility] MEDICATION CORRESPONDENCE 2019-09-16 05:01:00 Doctor Unassigned, [place] [facility] MEDICATION CORRESPONDENCE 2019-09-16 05:01:00 Doctor Unassigned, [place] [facility] INSURANCE CORRESPONDENCE 2019-09-03 05:01:00 Doctor Unassigned, [place] [facility] INSURANCE CORRESPONDENCE 2019-09-03 05:01:00 Doctor Unassigned, [place] [facility] INSURANCE CORRESPONDENCE 2019-09-02 05:01:00 Doctor Unassigned, [place] [facility] CBC WITH DIFF 2019-08-02 16:11:00 Hilda Akins [facility] GLYCOSYLATED HEMOGLOBIN (A1C) 2019-08-02 16:11:00 Hilda Akins [facility] CBC WITH DIFFERENTIAL 2019-08-02 16:11:00 Hilda Akins [facility] LIPID PANEL (63886)(TOTAL CHOLESTEROL, TRIGLYCERIDES, HDL) 2019-08-02 16:11:00 Hilda Akins [facility] COMP. METABOLIC PANEL (78653) 2019-08-02 16:11:00 Hilda Akins [facility] AGREEMENTS AUTHORIZATIONS AN D IRREVOCABLE ASSIGNMENTS (FORM 2000) 2019-08-02 05:01:00 Doctor Unassigned, [place] [facility] AGREEMENTS AUTHORIZATIONS AN D IRREVOCABLE ASSIGNMENTS (FORM 2000) 2019-08-02 05:01:00 Doctor Unassigned, [place] [facility] DME/SUPPLY JUSTIFICATION 2019-04-01 06:01:00 Doctor Unassigned, [place] [facility] DME/SUPPLY JUSTIFICATION 2019-04-01 06:01:00 Doctor Unassigned, [place] [facility] SCANNED LAB RESULTS 2019-03-01 06:01:00 Doctor Unassigned, [place] [facility] EXTERNAL PROVIDER RECORDS 2019-01-28 05:01:00 Doctor Unassigned, [place] [facility] PATIENT FINANCIAL POLICY 2019-01-24 13:24:34 Doctor Unassigned, [place] [facility] NO SHOW OR MISSED APPOINTMEN T POLICY ACKNOWLEDGEMENT 2019-01-24 13:24:17 Doctor Unassigned, [place] [facility] URINALYSIS 2018-11-18 22:15:00 Sandra Alexandre [facility] URINALYSIS 2018-11-18 22:15:00 Sandra Alexandre [facility] URINE CULTURE 2018-11-18 22:15:00 Sandra Alexandre [facility] MEDICATION CORRESPONDENCE 2018-11-18 05:01:00 Doctor Unassigned, [place] [facility] MEDICATION CORRESPONDENCE 2018-11-18 05:01:00 Doctor Unassigned, [place] [facility] POCT OCCULT (GUAIAC) BLOOD 2018-11-18 00:00:00 Sandra Alexandre [facility] POCT OCCULT (GUAIAC) BLOOD 2018-11-18 00:00:00 Sandra Alexandre [facility] DME/SUPPLY JUSTIFICATION 2018-11-02 05:01:00 Doctor Unassigned, [place] [facility] DME/SUPPLY JUSTIFICATION 2018-11-02 05:01:00 Doctor Unassigned, [place] [facility] DME/SUPPLY JUSTIFICATION 2018-10-04 05:01:00 Doctor Unassigned, [place] [facility] Encounters Start Date/Time End Date/Time Encounter Type Admission Type Attending [facility] Facility Care Department Encounter ID Source 2021-02-09 16:15:09 Emergency [facility] [id number] [facility] 2021-02-09 15:03:41 Emergency [facility] [id number] [facility] 2021-02-08 19:07:39 Emergency [facility] [id number] [facility] 2021-02-08 18:42:20 Emergency [facility] [id number] [facility] 2021-02-08 07:01:12 Emergency [facility] [id number] [facility] 2021-02-08 07:00:49 Emergency [facility] [id number] [facility] 2021-02-08 04:45:31 Emergency [facility] [id number] [facility] 2020-05-11 21:05:00 Inpatient David Grant [facility] [id number] [facility] 2023-11-15 17:20:00 2023-11-15 17:37:55 Outpatient R DOUGLAS SHEN [facility] [id number] [facility] 2023-11-15 17:20:00 2023-11-15 17:37:55 Urgent Care PepitoDouglas cortes Unknown, Attending [facility] 1.2.840.114 350.1.13.10 4.2.7.2.686 [id number] [facility] 2023-11-12 00:00:00 2023-11-12 00:00:00 Aquilino Wright MD: [address] [place] [address] , Ph. [phone] [facility] [id number] [facility] 2023-10-07 00:00:00 2023-10-07 00:00:00 Joe Navarro [facility] 1.2.840.114 350.1.13.10 4.2.7.2.686 [id number] [facility] 2023-06-16 00:00:00 2023-06-16 00:00:00 Aquilino Wright MD: [address] [place] [address] , Ph. [phone] [facility] [id number] [facility] 2023-06-16 00:00:00 2023-06-16 00:00:00 Aquilino Wright MD: [place] [address] , Ph. [phone] --[phone] [facility] [place] [facility] [id number] [facility] 2023-06-15 00:00:00 2023-06-15 00:00:00 Outpatient PATEL[facility]NILES H [facility] [id number] [facility] 2023-06-12 00:00:00 2023-06-12 00:00:00 Outpatient PATEL[facility]NILES H [facility] [id number] [facility] 2023-06-11 20:20:00 2023-06-11 20:40:00 Urgent Care Joe Blank Unknown, Attending [facility] 1..840.114 350.1.13.10 4.2.7.2.686 [id number] [facility] 2023-06-11 20:20:00 2023-06-11 20:34:01 Outpatient JOE ROLDAN [facility] [id number] [facility] 2023-06-11 00:00:00 2023-06-11 00:00:00 Orders Only Doctor Unassigned, [place] [facility] 1..840.114 350.1.13.10 4.2.7.2.686 [id number] [facility] 2023-03-19 00:00:00 2023-03-19 00:00:00 Aquilino Wright MD: [place] [address] , Ph. [phone] --[phone] [facility] [place] [facility] [id number] [facility] 2023-03-18 00:00:00 2023-03-18 00:00:00 Outpatient [facility] [id number] [facility] 2023-03-18 00:00:00 2023-03-18 00:00:00 Outpatient [facility] [id number] [facility] 2023-03-13 00:00:00 2023-03-13 00:00:00 Outpatient [facility] [id number] [facility] 2023-01-20 00:00:00 2023-01-20 00:00:00 Outpatient [facility] [id number] [facility] 2022-12-19 00:00:00 2022-12-19 00:00:00 Outpatient PATEL[facility]ILES H [facility] [id number] [facility] 2022-12-19 00:00:00 2022-12-19 00:00:00 Aquilino Wright MD: [place] [address] , Ph. [phone] [facility] [id number] [facility] 2022-09-26 00:00:00 2022-09-26 00:00:00 Outpatient [facility] [id number] [facility] 2022-09-26 00:00:00 2022-09-26 00:00:00 Outpatient [facility] [id number] [facility] 2022-09-26 00:00:00 2022-09-26 00:00:00 Aquilino Wright MD: [address] [place] [address] , Ph. [phone] [facility] [id number] [facility] 2022-09-25 00:00:00 2022-09-25 00:00:00 Outpatient PATEL[facility]NILES H [facility] [id number] [facility] 2022-08-21 00:00:00 2022-08-21 00:00:00 Outpatient [facility]EL[facility]NILES H [facility] [id number] [facility] 2022-06-26 00:00:00 2022-06-26 00:00:00 Aquilino Wright MD: [address] [place] [address] , Ph. [phone] [facility] B[facility] [id number] [facility] 2022-06-24 00:00:00 2022-06-24 00:00:00 Outpatient PATEL[facility]NILES H [facility] [id number] [facility] 2022-06-24 00:00:00 2022-06-24 00:00:00 Outpatient PATEL[facility]NILES H [facility] [id number] [facility] 2022-04-05 00:00:00 2022-04-05 00:00:00 Outpatient PATEL[facility]NILES H [facility] [id number] [facility] 2022-04-01 00:00:00 2022-04-01 00:00:00 Outpatient PATEL[facility]NILES H [facility] [id number] [facility] 2022-04-01 00:00:00 2022-04-01 00:00:00 Aquilino Wright MD: [address] [place] [address] , Ph. [phone] [facility] [place] [facility] [place] [facility] [id number] [facility] 2022-03-31 00:00:00 2022-03-31 00:00:00 Outpatient PATEL[facility]NILES H [facility] [id number] [facility] 2022-01-09 00:00:00 2022-01-09 00:00:00 Outpatient [facility]ILES H [facility] [id number] [facility] 2022-01-09 00:00:00 2022-01-09 00:00:00 Aquilino Wright MD: [address] [place] [address] , Ph. [phone] [facility] [id number] [facility] 2022-01-08 00:00:00 2022-01-08 00:00:00 Outpatient PATEL[facility]NILES H [facility] [id number] [facility] 2021-10-05 00:00:00 2021-10-05 00:00:00 Aquilino Wright MD: [address] [place] [address] , Ph. [phone] --[phone] PATEL_NILES H [facility] [place] [facility] [id number] [facility] 2021-10-02 11:41:00 2021-10-02 11:41:00 Outpatient PATEL[facility]NILES H [facility] [id number] [facility] 2021-05-11 10:56:00 2021-05-11 10:56:00 Outpatient PATEL[facility]NILES H [facility] [id number] [facility] 2021-05-09 04:34:00 2021-05-09 04:34:00 Outpatient PATEL[facility]NILES H [facility] [id number] [facility] 2021-04-08 00:00:00 2021-04-08 00:00:00 Joshua Clune Luis Angellaurence Ruelas [facility] OFF[facility] BUILD[facility] ONE ..840.114 350.1.13.10 4.2.7.2.686 [id number] [facility] 2021-03-13 14:00:00 2021-03-13 14:00:00 Outpatient HARMEET ELLIS STRAHIL [facility] [id number] [facility] 2021-02-02 00:00:00 2021-02-02 00:00:00 Aquilino Wright MD: [address] [place] [address] , Ph. [phone] PATEL_NILES H [facility] B[facility] [id number] [facility] 2021-02-01 05:31:00 2021-02-01 05:31:00 Outpatient PATEL[facility]NILES H [facility] [id number] [facility] 2021-01-30 04:59:00 2021-01-30 04:59:00 Outpatient PATEL_NILES H [facility] [id number] [facility] 2021-01-08 20:26:00 2021-01-08 22:55:00 Emergency [facility] ..840.114 350.1.13.10 4.2.7.2.686 [id number] [facility] 2021-01-08 20:26:00 2021-01-08 22:55:00 Emergency X [place] [address] [facility] ERT [id number] [facility] 2021-01-07 00:00:00 2021-01-07 00:00:00 Hilda Parada Jessenia [facility] Office Building One .840.114 350.1.13.10 4.2.7.2.686 [id number] [facility] 2020-09-29 00:00:00 2020-09-29 00:00:00 Aquilino rWight MD: [address] [place] [address] , Ph. [phone] [facility] [id number] [facility] 2020-07-23 00:00:00 2020-07-23 00:00:00 Patient Secure Msg Doctor Unassigned, [place] [facility] 1.840.114 350.1.13.10 4.2.7.2.686 [id number] [facility] 2020-07-18 16:00:00 2020-07-18 16:00:00 Outpatient R HARMEET GUTIERREZ STRAHIL [facility] [id number] [facility] 2020-07-18 09:46:01 2020-07-18 10:16:01 Telemedici ne Visit Harmeet Gutierrez [facility] Building 1.840.114 350.1.13.10 4.2.7.2.686 [id number] [facility] 2020-07-16 00:00:00 2020-07-16 00:00:00 Hilda Parada [facility] Office Building One .84.114 350.1.13.10 4.2.7.2.686 [id number] [facility] 2020-07-16 00:00:00 2020-07-16 00:00:00 Joshua PenaeJose [facility] Professio nal Building 1.2.840.114 350.1.13.10 4.2.7.2.686 [id number] [facility] 2020-07-10 00:00:00 2020-07-10 00:00:00 Telephone Luis Angel Akinslaurence Ruelas [facility] Office Building One 1..840.114 350.1.13.10 4.2.7.2.686 [id number] [facility] 2020-07-09 00:00:00 2020-07-09 00:00:00 Orders Only Doctor Unassigned, [place] [facility] 1.840.114 350.1.13.10 4.2.7.2.686 [id number] [facility] 2020-07-03 00:00:00 2020-07-03 00:00:00 Patient Outreach Jackson Daley [facility] 1.840.114 350.1.13.10 4.2.7.2.686 [id number] [facility] 2020-06-30 00:00:00 2020-06-30 00:00:00 Aquilino Wright MD: [address] [place] [address] , Ph. [phone] BILL_MARCELLE GUERRA [facility] [id number] [facility] 2020-06-26 11:48:00 2020-06-26 11:48:00 Outpatient BILL_MARCELLE [facility] [id number] [facility] 2020-06-18 00:00:00 2020-06-18 00:00:00 Patient Secure g Hilda Akins [facility] Office Building One 1.2.840.114 350.1.13.10 4.2.7.2.686 [id number] [facility] 2020-06-12 00:00:00 2020-06-12 00:00:00 Telephone Hilda Akins [facility] Office Building One 1.2.840.114 350.1.13.10 4.2.7.2.686 [id number] [facility] 2020-06-07 00:00:00 2020-06-07 00:00:00 Telephone Hilda Akins [facility] Office Building One 1.2840.114 350.1.13.10 4.2.7.2.686 [id number] [facility] 2020-06-05 00:00:00 2020-06-05 00:00:00 Patient Secure Hilda Ferreira [facility] Office Building One 1.2840.114 350.1.13.10 4.2.7.2.686 [id number] [facility] 2020-06-05 00:00:00 2020-06-05 00:00:00 Patient Secure g Hilda Akins [facility] OFF[facility] BUILD[facility] ONE 1.2.840.114 350.1.13.10 4.2.7.2.686 [id number] [facility] 2020-06-05 00:00:00 2020-06-05 00:00:00 Patient Secure g Hilda Akins [facility] Office Building One 1.2840.114 350.1.13.10 4.2.7.2.686 [id number] 2020-05-28 13:00:00 2020-05-28 13:00:00 Outpatient LISA CRAIN [facility] [id number] [facility] 2020-05-26 00:00:00 2020-05-26 00:00:00 Aquilino Wright MD: [address] [place] [address] , Ph. [phone] PATEL_LINDAS [facility] [place] [facility] B[facility] [id number] [facility] 2020-05-25 06:10:00 2020-05-25 06:10:00 Outpatient [facility] [id number] [facility] 2020-05-25 00:00:00 2020-05-25 00:00:00 Telephone Hilda Akins [facility] Office Building One 1.840.114 350.1.13.10 4.2.7.2.686 [id number] [facility] 2020-05-25 00:00:00 2020-05-25 00:00:00 Orders Only Doctor Unassigned, [place] [facility] 1..114 350.1.13.10 4.2.7.2.686 [id number] [facility] 2020-05-25 00:00:00 2020-05-25 00:00:00 Telephone Hilda Akins [facility] Office Building One 1.840.114 350.1.13.10 4.2.7.2.686 [id number] 2020-05-21 00:00:00 2020-05-21 00:00:00 Telephone Jose Truong [facility] 1.840.114 350.1.13.10 4.2.7.2.686 [id number] [facility] 2020-05-21 00:00:00 2020-05-21 00:00:[address] [facility] Elliot Muller 1.2.840.114 350.1.13.10 4.2.7.2.686 [id number] 2020-05-14 08:25:29 2020-05-14 17:04:34 Telemedici ne Visit BetsyJose haynes Leroy 1.2.840.1 [id number] 3.104.2.7 .[id number] [id number] [facility] 2020-05-14 14:20:00 2020-05-14 14:20:00 Outpatient JOSE SINGH HOWARD [facility] [id number] [facility] 2020-05-11 21:05:00 2020-05-11 21:05:00 Emergency [facility] [id number] [facility] 2020-05-10 00:00:00 2020-05-10 00:00:00 Telephone Jose Truong 1.2.840.1 [id number] 3.104.2.7 .3.059725 [id number] [facility] 2020-04-27 00:00:00 2020-04-27 00:00:00 Patient Secure Alex Espinoza 1.2.840.1 [id number] 3.104.2.7 .3.350175 .[id number] [facility] 2020-04-23 11:00:00 2020-04-23 11:00:00 Outpatient MELISA REYES [facility] [id number] [facility] 2020-04-23 03:11:00 2020-04-23 03:11:00 Outpatient ELVA GUERRA [id number] [facility] 2020-04-23 00:00:00 2020-04-23 00:00:00 Travel 1.2.840.1 [id number] 3.104.2.7 .[id number] .[id number] 1.2.840.114 350.1.13.10 4.2.7.3.698 [id number] [facility] 2020-04-22 00:00:00 2020-04-22 00:00:00 Nurse Triage Martin Aziza A 1.2.840.1 52499.1.1 3.104.2.7 .3.260959 .8 [id number] [facility] 2020-04-21 20:12:00 2020-04-21 23:36:00 Emergency Garima Anglin 1.2.840.1 13636.1.1 3.104.2.7 .3.874448 .8 [id number] [facility] 2020-04-21 00:00:00 2020-04-21 00:00:00 Nurse Triage Sonya Escobedo 1.2.840.1 26278.1.1 3.104.2.7 .3.066389 .8 [id number] [facility] 2020-04-21 00:00:00 2020-04-21 00:00:00 Travel 1.2.840.1 37783.1.1 3.104.2.7 .3.712121 .8 1.2.840.114 350.1.13.10 4.2.7.3.698 084.8 [id number] [facility] 2020-04-17 11:00:00 2020-04-17 15:12:00 Emergency Dominique Ngo 1.2.840.1 02535.1.1 3.104.2.7 .3.832400 .8 [id number] [facility] 2020-04-17 00:00:00 2020-04-17 00:00:00 Telephone Hilda Akins 1.2.840.1 99690.1.1 3.104.2.7 .3.723777 .8 [id number] [facility] 2020-04-17 00:00:00 2020-04-17 00:00:00 Telephone Adriana Gutierrezsandra Ibrahim 1.2.840.1 77334.1.1 3.104.2.7 .3.561751 .8 [id number] [facility] 2020-04-17 00:00:00 2020-04-17 00:00:00 Travel 1.2.840.1 42870.1.1 3.104.2.7 .3.520258 .8 1.2.840.114 350.1.13.10 4.2.7.3.698 084.8 [id number] [facility] 2020-04-16 08:00:41 2020-04-16 08:37:50 Extern Visit Hilda Akins Lab, Adc Fam Pob I 1.2.840.1 38326.1.1 3.104.2.7 .3.897674 .8 [id number] [facility] 2020-04-16 08:20:00 2020-04-16 08:20:00 Outpatient R HILDA AKINS [facility] [id number] [facility] 2020-04-16 00:00:00 2020-04-16 00:00:00 Jose Mendez 1.2.840.1 16269.1.1 3.104.2.7 .3.543767 .8 [id number] [facility] 2020-04-16 00:00:00 2020-04-16 00:00:00 Travel 1.2.840.1 72321.1.1 3.104.2.7 .3.515708 .8 1.2.840.114 350.1.13.10 4.2.7.3.698 084.8 [id number] [facility] 2020-04-11 00:00:00 2020-04-11 00:00:00 Telephone CluneCong emerygrey A 1.2.840.1 95963.1.1 3.104.2.7 .3.062104 .8 [id number] [facility] 2020-04-09 16:00:00 2020-04-09 16:00:00 Outpatient LISA CRAIN [facility] [id number] [facility] 2020-04-09 00:00:00 2020-04-09 00:00:00 Telephone Jose Truong 1.2.840.1 32356.1.1 3.104.2.7 .3.724349 .8 [id number] [facility] 2020-04-09 00:00:00 2020-04-09 00:00:00 Travel 1.2.840.1 80915.1.1 3.104.2.7 .3.434285 .8 1.2.840.114 350.1.13.10 4.2.7.3.698 084.8 [id number] [facility] 2020-04-03 00:00:00 2020-04-03 00:00:00 Telephone Jose Truong 1.2.840.1 86629.1.1 3.104.2.7 .3.506600 .8 [id number] [facility] 2020-04-02 00:00:00 2020-04-02 00:00:00 Patient Secure Msg Hilda Akins A 1.2.840.1 89629.1.1 3.104.2.7 .3.427919 .8 [id number] [facility] 2020-03-27 08:58:46 2020-03-27 16:25:01 Telemedici ne Visit Jose Truong Gene 1.2840.1 09898.1.1 3.104.2.7 .3.436703 .8 [id number] [facility] 2020-03-27 14:40:00 2020-03-27 14:40:00 Outpatient JOSE SINGH HOWARD [facility] [id number] [facility] 2020-03-22 00:00:00 2020-03-22 00:00:00 Orders Only Doctor Unassigned, [place] 1.2.840.1 53962.1.1 3.104.2.7 .3.318655 .8 [id number] [facility] 2020-03-14 00:00:00 2020-03-14 00:00:00 Telephone Hilda Akins 1.2.840.1 63237.1.1 3.104.2.7 .3.749918 .8 [id number] [facility] 2020-03-14 00:00:00 2020-03-14 00:00:00 RefJose Louis Gene 1.2.840.1 36989.1.1 3.104.2.7 .3.071741 .8 [id number] [facility] 2020-03-13 14:03:17 2020-03-13 14:29:08 Extern Visit Hilda Akins Lab, [facility] I 1.2.840.1 83447.1.1 3.104.2.7 .3.967349 .8 [id number] [facility] 2020-03-13 13:17:45 2020-03-13 14:28:57 Office Visit Hilda Akins 1.2840.1 06369.1.1 3.104.2.7 .3.558804 .8 [id number] [facility] 2020-03-13 13:15:00 2020-03-13 13:15:00 Outpatient HILDA PEARSON [facility] [id number] [facility] 2020-03-13 00:00:00 2020-03-13 00:00:00 Travel 1.2.840.1 28145.1.1 3.104.2.7 .3.180576 .8 1.2.840.114 350.1.13.10 4.2.7.3.698 084.8 [id number] [facility] 2020-03-07 08:11:56 2020-03-07 14:06:30 Telemedici ne Visit Harmeet Gutierrez 1.2.840.1 12530.1.1 3.104.2.7 .3.642491 .8 [id number] [facility] 2020-03-07 13:30:00 2020-03-07 13:30:00 Outpatient R HARMEET GUTIERREZ STRAHIL [facility] [id number] [facility] 2020-03-06 14:00:00 2020-03-06 14:00:00 Outpatient VIVIANE CHOUDHARY [facility] [id number] [facility] 2020-02-25 00:00:00 2020-02-25 00:00:00 Travel 1.2.840.1 38866.1.1 3.104.2.7 .3.900846 .8 1.2.840.114 350.1.13.10 4.2.7.3.698 084.8 [id number] [facility] 2020-02-24 00:00:00 2020-02-24 00:00:00 Nurse Triage Sonya Escobedo 1.2.840.1 76482.1.1 3.104.2.7 .3.380136 .8 [id number] [facility] 2020-02-22 11:00:00 2020-02-22 11:00:00 Outpatient LISA CRAIN [facility] [id number] [facility] 2020-02-03 09:56:46 2020-02-03 11:24:28 Office Visit Viviane Link 1.2.840.1 61096.1.1 3.104.2.7 .3.862255 .8 [id number] [facility] 2020-02-03 10:30:00 2020-02-03 10:30:00 Outpatient VIVIANE CHOUDHARY [facility] [id number] [facility] 2020-02-03 00:00:00 2020-02-03 00:00:00 Travel 1.2.840.1 60508.1.1 3.104.2.7 .3.037062 .8 1.2.840.114 350.1.13.10 4.2.7.3.698 084.8 [id number] [facility] 2020-01-30 00:00:00 2020-01-30 00:00:00 Patient Secure Msg Doctor Unassigned, [place] [facility] ELL[facility] JOHNSON [facility] 1.2.840.114 350.1.13.10 4.2.7.2.686 [id number] [facility] 2020-01-25 00:00:00 2020-01-25 00:00:00 Orders Only Doctor Unassigned, [place] 1.2.840.1 31802.1.1 3.104.2.7 .3.681796 .8 [id number] [facility] 2020-01-25 00:00:00 2020-01-25 00:00:00 Jose Mendez 1.2.840.1 95481.1.1 3.104.2.7 .3.810045 .8 [id number] [facility] 2020-01-16 00:00:00 2020-01-16 00:00:00 Orders Only Doctor Unassigned, [place] 1.2.840.1 49844.1.1 3.104.2.7 .3.957138 .8 [id number] [facility] 2020-01-13 13:00:00 2020-01-13 13:00:00 Outpatient VIVIANE CHOUDHARY [facility] [id number] [facility] 2020-01-13 00:00:00 2020-01-13 00:00:00 Travel 1.2.840.1 06208.1.1 3.104.2.7 .3.322628 .8 1.2.840.114 350.1.13.10 4.2.7.3.698 084.8 [id number] [facility] 2020-01-12 00:00:00 2020-01-12 00:00:00 Travel 1.2.840.1 49036.1.1 3.104.2.7 .3.734327 .8 1.2.840.114 350.1.13.10 4.2.7.3.698 084.8 [id number] [facility] 2020-01-11 16:30:00 2020-01-11 16:30:00 Outpatient R HARMEET GUTIERREZ STRAHIL [facility] [id number] [facility] 2020-01-11 13:20:35 2020-01-11 13:20:35 Office Visit Harmeet Gutierrez T 1.2.840.1 86039.1.1 3.104.2.7 .3.056063 .8 [id number] [facility] 2020-01-11 00:00:00 2020-01-11 00:00:00 Travel 1.2.840.1 12092.1.1 3.104.2.7 .3.905418 .8 1.2.840.114 350.1.13.10 4.2.7.3.698 084.8 [id number] [facility] 2020-01-09 00:00:00 2020-01-09 00:00:00 Telephone Hilda Akins 1.2.840.1 18875.1.1 3.104.2.7 .3.867584 .8 [id number] [facility] 2020-01-09 00:00:00 2020-01-09 00:00:00 Patient Secure Msg Doctor Unassigned, [place] [facility] ONE 1.114 350.1.13.10 4.2.7.2.686 [id number] [id number] [facility] 2020-01-08 11:06:40 2020-01-08 11:59:02 Telemedici ne Visit Unknown, Attending Leeanna Woodward 1.0.1 85338.1.1 3.104.2.7 .3.145790 .8 [id number] [facility] 2020-01-08 11:00:00 2020-01-08 11:00:00 Outpatient R UNKNOWN, ATTENDING [facility] [id number] [facility] 2020-01-05 00:00:00 2020-01-05 00:00:00 Patient Secure Msg Luis Angel Akinslaurence A 1.0.1 21006.1.1 3.104.2.7 .3.674661 .8 [id number] [facility] 2020-01-05 00:00:00 2020-01-05 00:00:00 Telephone Pao Luis Angellaurence Ruelas 1.840.1 75664.1.1 3.104.2.7 .3.366481 .8 [id number] [facility] 2020-01-05 00:00:00 2020-01-05 00:00:00 Patient Secure Msg CluneLuis Angel emerylaurence Jessenia [facility] BUILDING ONE 1..114 350.1.13.10 4.2.7.2.686 [id number] 044 [id number] [facility] 2020-01-05 00:00:00 2020-01-05 00:00:00 Telephone Clune Luis Angellaurence A 1.0.1 94117.1.1 3.104.2.7 .3.480801 .8 [id number] [facility] 2020-01-04 18:44:00 2020-01-04 22:41:00 Emergency Alta Saldaña 1.2.840.1 39592.1.1 3.104.2.7 .3.102353 .8 [id number] [facility] 2020-01-04 00:00:00 2020-01-04 00:00:00 Travel 1.2.840.1 80384.1.1 3.104.2.7 .3.721783 .8 1.2.840.114 350.1.13.10 4.2.7.3.698 084.8 [id number] [facility] 2020-01-02 19:41:00 2020-01-02 21:38:00 Emergency Surya Ruby 1.2.840.1 14280.1.1 3.104.2.7 .3.144355 .8 [id number] [facility] 2020-01-02 11:22:41 2020-01-02 17:15:37 Telemedici ne Visit Hilda Akins 1.2.840.1 48530.1.1 3.104.2.7 .3.252474 .8 [id number] [facility] 2020-01-02 16:30:00 2020-01-02 16:30:00 Outpatient R HILDA AKINS [facility] [id number] [facility] 2020-01-02 00:00:00 2020-01-02 00:00:00 Nurse Triage Nahomy Carey 1.2.840.1 27113.1.1 3.104.2.7 .3.521575 .8 [id number] [facility] 2020-01-02 00:00:00 2020-01-02 00:00:00 Telephone Hilda Akins 1.2.840.1 82712.1.1 3.104.2.7 .3.008590 .8 [id number] [facility] 2020-01-02 00:00:00 2020-01-02 00:00:00 Patient Secure Msg [facility] 1.2.840.114 350.1.13.10 4.2.7.2.686 [id number] 044 [id number] [facility] 2020-01-02 00:00:00 2020-01-02 00:00:00 Patient [facility] 1.2.840.114 350.1.13.10 4.2.7.2.686 [id number] 044 [id number] [facility] 2020-01-02 00:00:00 2020-01-02 00:00:00 Telephone Betsy Jose Leroy 1.2.840.1 35297.1.1 3.104.2.7 .3.142847 .8 [id number] [facility] 2020-01-02 00:00:00 2020-01-02 00:00:00 Nurse Triage Aziza Salazar Jessenia 1.2.840.1 71373.1.1 3.104.2.7 .3.176622 .8 [id number] [facility] 2020-01-02 00:00:00 2020-01-02 00:00:00 Travel 1.2.840.1 88955.1.1 3.104.2.7 .3.307149 .8 1.2.840.114 350.1.13.10 4.2.7.3.698 084.8 [id number] [facility] 2019-12-31 08:16:37 2019-12-31 09:05:46 Urgent Care Unknown, Attending Provider, [facility] 1.2.840.1 50959.1.1 3.104.2.7 .3.472428 .8 [id number] [facility] 2019-12-31 08:20:00 2019-12-31 08:20:00 Outpatient R UNKNOWN, ATTENDING [facility] [id number] [facility] 2019-12-31 00:00:00 2019-12-31 00:00:00 Nurse Triage Juliet Mercado 1.2.840.1 53336.1.1 3.104.2.7 .3.368465 .8 [id number] [facility] 2019-12-31 00:00:00 2019-12-31 00:00:00 Travel 1.2.840.1 36609.1.1 3.104.2.7 .3.499262 .8 1.2.840.114 350.1.13.10 4.2.7.3.698 084.8 [id number] [facility] 2019-12-30 00:00:00 2019-12-30 00:00:00 Nurse Triage Juliet Mercado 1.2.840.1 98852.1.1 3.104.2.7 .3.055653 .8 [id number] [facility] 2019-12-27 00:00:00 2019-12-27 00:00:00 Case Management CluneLuis Angel emerybryangrey A 1.2.840.1 54529.1.1 3.104.2.7 .3.268936 .8 [id number] [facility] 2019-12-27 00:00:00 2019-12-27 00:00:00 Telephone PaoHilda emery A 1.2.840.1 70240.1.1 3.104.2.7 .3.711012 .8 [id number] [facility] 2019-12-20 12:09:04 2019-12-20 12:24:04 Extern Visit Harmeet Gutierrez 1.2.840.1 85555.1.1 3.104.2.7 .3.666342 .8 [id number] [facility] 2019-12-20 12:00:00 2019-12-20 12:00:00 Outpatient R HARMEET GUTIERREZ STRAHIL [facility] [id number] [facility] 2019-12-16 14:52:40 2019-12-16 15:07:40 Laboratory Only Harmeet Gutierrez T Only, Adc Test 1.2.840.1 33050.1.1 3.104.2.7 .3.825051 .8 [id number] [facility] 2019-12-16 15:00:00 2019-12-16 15:00:00 Outpatient R [facility] [id number] [facility] 2019-12-16 00:00:00 2019-12-16 00:00:00 Orders Only Doctor Unassigned, [place] 1.2.840.1 51925.1.1 3.104.2.7 .3.898384 .8 [id number] [facility] 2019-12-16 00:00:00 2019-12-16 00:00:00 Patient Secure Msg Doctor Unassigned, [place] RAISA SALAZAR 1.2.840.114 350.1.13.10 4.2.7.2.686 [id number] [id number] [facility] 2019-12-16 00:00:00 2019-12-16 00:00:00 Travel 1.2.840.1 80563.1.1 3.104.2.7 .3.706751 .8 1.2.840.114 350.1.13.10 4.2.7.3.698 084.8 [id number] [facility] 2019-12-12 00:00:00 2019-12-12 00:00:00 Hilda Parada A 1.2.840.1 40056.1.1 3.104.2.7 .3.892891 .8 [id number] [facility] 2019-11-30 14:00:00 2019-11-30 14:00:00 Outpatient HILDA PEARSON [facility] [id number] [facility] 2019-11-28 09:30:00 2019-11-28 09:30:00 Outpatient R MELISA REDDY [facility] [id number] [facility] 2019-11-28 00:00:00 2019-11-28 00:00:00 Travel 1.2.840.1 62038.1.1 3.104.2.7 .3.677681 .8 1.2.840.114 350.1.13.10 4.2.7.3.698 084.8 [id number] [facility] 2019-11-25 00:00:00 2019-11-25 00:00:00 Patient Secure Msg Luis Angel Akinslaurence A 1.2.840.1 10218.1.1 3.104.2.7 .3.488508 .8 [id number] [facility] 2019-11-17 00:00:00 2019-11-17 00:00:00 Patient Secure g CluneLuis Angel emerybryangrey A [facility] 1.2.840.114 350.1.13.10 4.2.7.2.686 [id number] [facility] 2019-11-16 00:00:00 2019-11-16 00:00:00 Telephone CluneLuis Angel emerylaurence Jessenia 1.2.840.1 00230.1.1 3.104.2.7 .3.680090 .8 [id number] [facility] 2019-11-11 00:00:00 2019-11-11 00:00:00 Patient Secure Msg Luis Angel Akinslaurence A 1.2.840.1 64565.1.1 3.104.2.7 .3.700102 .8 [id number] [facility] 2019-11-09 07:51:08 2019-11-09 16:12:43 Telemedici ne Visit Luis Angel Akinslaurence A 1.2.840.1 52334.1.1 3.104.2.7 .3.571192 .8 [id number] [facility] 2019-11-09 13:45:00 2019-11-09 13:45:00 Outpatient HILDA PEARSON [facility] [id number] [facility] 2019-11-01 15:23:57 2019-11-01 16:17:57 Telemedici ne Visit Jose Truong 1.840.1 30769.1.1 3.104.2.7 .3.688639 .8 [id number] [facility] 2019-11-01 15:40:00 2019-11-01 15:40:00 Outpatient JOSE SINGH HOWARD [facility] [id number] [facility] 2019-10-31 00:00:00 2019-10-31 00:00:00 Patient Secure Hilda Ferreira 1.840.1 47221.1.1 3.104.2.7 .3.947377 .8 [id number] [facility] 2019-10-29 00:00:00 2019-10-29 00:00:00 Nurse Triage Katia Amador 1.840.1 08181.1.1 3.104.2.7 .3.101488 .8 [id number] [facility] 2019-10-27 01:40:14 2019-10-28 17:30:00 Emergency Surya Ruby Chilvana Mathis, Samuel E 1.840.1 70606.1.1 3.104.2.7 .3.735267 .8 [id number] [facility] 2019-10-26 20:30:35 2019-10-27 00:25:00 Emergency Surya Ruby 1.2840.1 97246.1.1 3.104.2.7 .3.806146 .8 [id number] [facility] 2019-10-27 00:00:00 2019-10-27 00:00:00 Telephone Jose Truong 1.840.1 12162.1.1 3.104.2.7 .3.160522 .8 [id number] [facility] 2019-10-27 00:00:00 2019-10-27 00:00:00 Travel 1.2.840.1 65736.1.1 3.104.2.7 .3.832557 .8 1.2.840.114 350.1.13.10 4.2.7.3.698 084.8 [id number] [facility] 2019-10-26 00:00:00 2019-10-26 00:00:00 Travel 1.2.840.1 64688.1.1 3.104.2.7 .3.125274 .8 1.2.840.114 350.1.13.10 4.2.7.3.698 084.8 [id number] [facility] 2019-10-24 00:00:00 2019-10-24 00:00:00 Jose Mendez 1.2.840.1 48582.1.1 3.104.2.7 .3.108412 .8 [id number] [facility] 2019-10-19 08:07:38 2019-10-19 13:43:10 Telemedici ne Visit Hilda Akins 1.2.840.1 93568.1.1 3.104.2.7 .3.051810 .8 [id number] [facility] 2019-10-19 13:15:00 2019-10-19 13:15:00 Outpatient R HILDA AKINS [facility] [id number] [facility] 2019-10-19 00:00:00 2019-10-19 00:00:00 Patient Secure Msg Doctor Unassigned, [place] [facility] ELLIOT ROSEANNE [facility] OFF[facility] BUILDING ONE 1.2.840.114 350.1.13.10 4.2.7.2.686 [id number] [facility] 2019-10-16 20:52:07 2019-10-17 00:08:00 Emergency Christa, K Barb 1.2.840.1 80349.1.1 3.104.2.7 .3.351794 .8 [id number] [facility] 2019-10-17 00:00:00 2019-10-17 00:00:00 Telephone Luis Angel Akinsbryangrey A 1.2.840.1 47490.1.1 3.104.2.7 .3.297720 .8 [id number] [facility] 2019-10-16 00:00:00 2019-10-16 00:00:00 Orders Only Doctor Unassigned, [place] 1.2.840.1 62058.1.1 3.104.2.7 .3.345028 .8 [id number] [facility] 2019-10-16 00:00:00 2019-10-16 00:00:00 Travel 1.2.840.1 95793.1.1 3.104.2.7 .3.300188 .8 1.2.840.114 350.1.13.10 4.2.7.3.698 084.8 [id number] [facility] 2019-10-13 00:00:00 2019-10-13 00:00:00 Telephone Pao Luis Angellaurence A 1.2.840.1 75215.1.1 3.104.2.7 .3.652069 .8 [id number] [facility] 2019-10-13 00:00:00 2019-10-13 00:00:00 Orders Only Doctor Unassigned, [place] 1.2.840.1 41044.1.1 3.104.2.7 .3.051547 .8 [id number] [facility] 2019-10-12 00:00:00 2019-10-12 00:00:00 Telephone Pao Luis Angelbryangrey A 1.2.840.1 15706.1.1 3.104.2.7 .3.028437 .8 [id number] [facility] 2019-09-28 00:00:00 2019-09-28 00:00:00 Telephone Hilda Akins 1.2.840.1 13544.1.1 3.104.2.7 .3.914842 .8 [id number] [facility] 2019-09-26 08:00:00 2019-09-26 08:00:00 Outpatient POOJA ROBERTSON [facility] [id number] [facility] 2019-09-23 00:00:00 2019-09-23 00:00:00 Patient Secure Msg Luis Angel Akinsbryangrey Ruelas 1.2.840.1 20301.1.1 3.104.2.7 .3.416860 .8 [id number] [facility] 2019-09-16 00:00:00 2019-09-16 00:00:00 Orders Only Doctor Unassigned, [place] 1.2.840.1 15041.1.1 3.104.2.7 .3.799640 .8 [id number] [facility] 2019-09-16 00:00:00 2019-09-16 00:00:00 Telephone Hilda Akins 1.2.840.1 60379.1.1 3.104.2.7 .3.969479 .8 [id number] [facility] 2019-09-14 00:00:00 2019-09-14 00:00:00 Case Management Lyubov Garnett 1.2.840.1 60206.1.1 3.104.2.7 .3.503004 .8 [id number] [facility] 2019-09-14 00:00:00 2019-09-14 00:00:00 Case Management Lyubov Garnett 1.2.840.1 23960.1.1 3.104.2.7 .3.691311 .8 [id number] [facility] 2019-09-06 00:00:00 2019-09-06 00:00:00 Telephone Hilda Akins 1.2.840.1 33020.1.1 3.104.2.7 .3.341592 .8 [id number] [facility] 2019-09-03 00:00:00 2019-09-03 00:00:00 Orders Only Doctor Unassigned, [place] 1.2.840.1 34197.1.1 3.104.2.7 .3.669406 .8 [id number] [facility] 2019-09-02 00:00:00 2019-09-02 00:00:00 Telephone Hilda Akins 1.2.840.1 11385.1.1 3.104.2.7 .3.835317 .8 [id number] [facility] 2019-08-02 11:06:11 2019-08-02 11:21:11 Extern Visit Hilda Akins 2, [facility] 1.2.840.1 52683.1.1 3.104.2.7 .3.124711 .8 [id number] [facility] 2019-08-02 11:00:00 2019-08-02 11:00:00 Outpatient R HILDA AKINS [facility] [id number] [facility] 2019-08-02 00:00:00 2019-08-02 00:00:00 Case Management Hilda Akins 1.2.840.1 71658.1.1 3.104.2.7 .3.581847 .8 [id number] [facility] 2019-08-02 00:00:00 2019-08-02 00:00:00 Orders Only Doctor Unassigned, [place] 1.2.840.1 03152.1.1 3.104.2.7 .3.252990 .8 [id number] [facility] 2019-08-02 00:00:00 2019-08-02 00:00:00 Travel 1.2.840.1 62745.1.1 3.104.2.7 .3.049380 .8 1.2.840.114 350.1.13.10 4.2.7.3.698 084.8 [id number] [facility] 2019-07-19 00:00:00 2019-07-19 00:00:00 Telephone Pao Hilda Jessenia 1.2.840.1 33257.1.1 3.104.2.7 .3.972771 .8 [id number] [facility] 2019-07-15 00:00:00 2019-07-15 00:00:00 Telephone Hilda Akins 1.2.840.1 85466.1.1 3.104.2.7 .3.604312 .8 [id number] [facility] 2019-07-12 00:00:00 2019-07-12 00:00:00 Jose Mendez 1.2.840.1 12392.1.1 3.104.2.7 .3.917666 .8 [id number] [facility] 2019-07-05 08:05:47 2019-07-05 14:52:28 Telemedici ne Visit Hilda Akins 1.2.840.1 02887.1.1 3.104.2.7 .3.798541 .8 [id number] [facility] 2019-07-05 14:30:00 2019-07-05 14:30:00 Outpatient R HILDA AKINS [facility] [id number] [facility] 2019-06-23 15:20:00 2019-06-23 15:20:00 Outpatient ALEX MOSHER [facility] [id number] [facility] 2019-06-06 16:00:00 2019-06-06 16:00:00 Outpatient POOJA ROBERTSON [facility] [id number] [facility] 2019-04-01 00:00:00 2019-04-01 00:00:00 Telephone Hilda Akins A 1.2.840.1 43963.1.1 3.104.2.7 .3.668687 .8 [id number] [facility] 2019-04-01 00:00:00 2019-04-01 00:00:00 Orders Only Doctor Unassigned, [place] 1.2.840.1 18863.1.1 3.104.2.7 .3.896926 .8 [id number] [facility] 2019-03-14 00:00:00 2019-03-14 00:00:00 Telephone Hilda Akins A 1.2.840.1 39639.1.1 3.104.2.7 .3.673227 .8 [id number] [facility] 2019-03-14 00:00:00 2019-03-14 00:00:00 Telephone Jose Truong Gene 1.2.840.1 82883.1.1 3.104.2.7 .3.755948 .8 [id number] [facility] 2019-03-01 00:00:00 2019-03-01 00:00:00 Orders Only Doctor Unassigned, [place] 1.2.840.1 99834.1.1 3.104.2.7 .3.472619 .8 [id number] [facility] 2019-02-28 00:00:00 2019-02-28 00:00:00 Telephone Hilda Akins A 1.2.840.1 10639.1.1 3.104.2.7 .3.119605 .8 [id number] [facility] 2019-01-28 00:00:00 2019-01-28 00:00:00 Telephone Betsy Jose Gene 1.2.840.1 81697.1.1 3.104.2.7 .3.595019 .8 [id number] [facility] 2019-01-24 08:24:50 2019-01-24 09:21:00 Office Visit Jose Truong 1.2.840.1 09733.1.1 3.104.2.7 .3.430666 .8 [id number] [facility] 2019-01-24 00:00:00 2019-01-24 00:00:00 Orders Only Doctor Unassigned, [place] 1.2.840.1 25814.1.1 3.104.2.7 .3.039064 .8 [id number] [facility] 2018-12-07 00:00:00 2018-12-07 00:00:00 Telephone Hilda Akins 1.2.840.1 78443.1.1 3.104.2.7 .3.762343 .8 [id number] [facility] 2018-11-23 00:00:00 2018-11-23 00:00:00 Telephone Grabiel Govea 1.2.840.1 02895.1.1 3.104.2.7 .3.345925 .8 [id number] [facility] 2018-11-18 16:02:21 2018-11-18 17:12:44 Office Visit BettieSandra 1.2.840.1 87195.1.1 3.104.2.7 .3.633853 .8 [id number] [facility] 2018-11-18 00:00:00 2018-11-18 00:00:00 Orders Only Doctor Unassigned, [place] 1.2.840.1 [id number] 3.104.2.7 .3.204232 .8 [id number] [facility] 2018-11-02 00:00:00 2018-11-02 00:00:00 Orders Only Doctor Unassigned, [place] 1.2.840.1 44304.1.1 3.104.2.7 .3.489684 .8 [id number] [facility] 2018-10-27 00:00:00 2018-10-27 00:00:00 Telephone Hilda Akins 1.2.840.1 20611.1.1 3.104.2.7 .3.922109 .8 [id number] [facility] 2018-10-19 17:43:00 2018-10-19 22:28:00 Inpatient RUPERT SCALES [facility], [address] [place] [address] [facility] [id number] [facility] [address] Akila samuel (RONALDO/LI V/SA) 2018-10-19 00:00:00 2018-10-19 00:00:00 Telephone Hilda Akins 1.2.840.1 [id number] 3.104.2.7 .3.688376 .8 [id number] [facility] 2018-10-04 00:00:00 2018-10-04 00:00:00 Orders Only Doctor Unassigned, [place] 1.2.840.1 89006.1.1 3.104.2.7 .3.785822 .8 [id number] [facility] 2018-10-04 00:00:00 2018-10-04 00:00:00 Telephone Miriam Sofia 1.2.840.1 20695.1.1 3.104.2.7 .3.268954 .8 [id number] [facility] Results Test Description Test Time Test Comments Results Result Co mments Source [facility] 03:16:09* Test Item Value Reference Range Interpretation Comme nts MAGNESIUM (test code = 0081886026) 1.9 mg/dL 1.7-2.4 Lab Interpretation (test cod e = 11761-1) Normal [facility] METABOLIC PANEL (51087)2021-01-09 02:58:26* Test Item Value Reference Range Interpretation Comme nts NA (test code = 0895842282) 140 mmol/L 135-145 K (test code = 3324074956) 4.6 mmol/L 3.5-5.0 CL (test code = 0663075602) 106 mmol/L 98-108 CO2 TOTAL (test code = 2732558984) 26 mmol/L 23-31 AGAP (test code = 1959575099) 2-16 BUN (test code = 4500534198) 13 mg/dL 7-23 GLUCOSE (test code = 4226997060) 133 mg/dL 70-110 H CREATININE (test code = 7339849291) 0.82 mg/dL 0.60-1.25 TOTAL BILI (test code = 2969745282) 0.3 mg/dL 0.1-1.1 CALCIUM (test code = 1559888012) 9.5 mg/dL 8.6-10.6 T PROTEIN (test code = 9474123308) 7.2 g/dL 6.3-8.2 ALBUMIN (test code = 9608996998) 4.4 g/dL 3.5-5.0 ALK PHOS (test code = 2458021822) 69 U/L 34-122 ALTv (test code = 1742-6) 33 U/L 5-50 AST(SGOT) (test code = 9722077275) 24 U/L 13-40 eGFR (test code = 1933592322) mL/min/1.73m2 BEVERLY (test code = BEVERLY) Association of Glomerular Filtration Rate (GFR) and Staging of Kidney Disease* + --+ --+ ------+| GFR (mL/min/1.73 m2) ?| With Kidney Damage ?| ?Without Kidney Damage+ --------+ --------+ +| ?>90 ?| ?Stage one ?| ? Normal ?+ ---+ ---+ -------+| ?60-89 ?| ?Stage two ?| ? Decreased GFR ? + --+ --+ ------+| ?30-59 ?| ?Stage three ?| ? Stage three ? + --+ --+ ------+| ?15-29 ?| ?Stage four ? | ? Stage four ?+ ---+ ---+ -------+| ?<15 (or dialysis) ? ?| ?Stage five ? | ? Stage five ?+ ---+ ---+ -------+ *Each stage assumes the associated GFR level has been in effect for at least three months. ?Stages 1 to 5, with or without kidney disease, indicate chronic kidney disease. Notes: Determination of stages one and two (with eGFR >59mL/min/1.73 m2) requires estimation of kidney damage for at least three months as defined by structural or functional abnormalities of the kidney, manifested by either:Pathological abnormalities or Markers of kidney damage (including abnormalities in the composition of the blood or urine or abnormalities in imaging tests). Lab Interpretation (test code = 04828-2) Abnormal [facility]2021-[facility] 02:58:06* Test Item Value Reference Range Interpretation Comme nts LIPASE (test code = 0611676028) 72 U/L 0-220 Lab Interpretation (test cod e = 73430-4) Normal [facility]2021-09-29 02:55:42* Test Item Value Reference Range Interpretation Comme nts Briggs (test code = 5791417743) 0.8 mmol/L 0.6-1.2 BEVERLY (test code = BEVERLY) Toxic Range: ? Greater than 1.2 mmol/L Lab Interpretation (test code = 09114-5) Normal [facility] HospitalCB WITH [id number] 02:09:58* Test Item Value Reference Range Interpretation Comme nts WBC (test code = 6690-2) See_Comment [Automated [employer]] The system which generated this result transmitted reference range: 4.20 - 10.70 10*3/?L. The reference range was not used to interpret this result as normal/abnormal. RBC (test code = 789-8) See_Comment [Automated [employer]] The system which generated this result transmitted reference range: 4.26 - 5.52 10*6/?L. The reference range was not used to interpret this result as normal/abnormal. HGB (test code = 718-7) 14.3 g/dL 12.2-16.4 HCT (test code = 4544-3) 43.8 % 38.4-49.3 MCV (test code = 787-2) 91.8 fL 81.7-95.6 MCH (test code = 785-6) 30.0 pg 26.1-32.7 MCHC (test code = 786-4) 32.6 g/dL 31.2-35.0 RDW-SD (test code = 70098-5) 41.8 fL 38.5-51.6 RDW-CV (test code = 788-0) 12.3 % 12.1-15.4 PLT (test code = 777-3) See_Comment [Automated messa ge] The system which generated this result transmitted reference range: 150 - 328 10*3/?L. The reference range was not used to interpret this result as normal/abnormal. MPV (test code = 28279-2) 12.2 fL 9.8-13.0 NRBC/100 WBC (test code = 3547197140) See_Comment [Automated me ssage] The system which generated this result transmitted reference range: 0.0 - 10.0 /100 WBCs. The reference range was not used to interpret this result as normal/abnormal. NRBC x10^3 (test code = 5502975303) <0.01 See_Comment [Automated me ssage] The system which generated this result transmitted reference range: 10*3/?L. The reference range was not used to interpret this result as normal/abnormal. GRAN MAT (NEUT) % (test code = 770-8) 63.8 % IMM GRAN % (test code = 2034810857) 0.60 % LYMPH % (test code = 736-9) 26.2 % MONO % (test code = 5905-5) 5.7 % EOS % (test code = 713-8) 3.3 % BASO % (test code = 706-2) 0.4 % GRAN MAT x10^3(ANC) (test code = 3628959678) 6.54 10*3/uL 1.99-6.95 IMM GRAN x10^3 (test code = 3818823985) 0.06 10*3/uL 0.00-0.06 LYMPH x10^3 (test code = 731-0) 2.68 10*3/uL 1.09-3.23 MONO x10^3 (test code = 742-7) 0.58 10*3/uL 0.36-1.02 EOS x10^3 (test code = 711-2) 0.34 10*3/uL 0.06-0.53 BASO x10^3 (test code = 704-7) 0.04 10*3/uL 0.01-0.09 [facility], Urinalysis Rflx Cult/Mxsgo1135-97-61 08:10:00* Test Item Value Reference Range Interpretation Comme nts Color,Urine (test code = UCOL) Yellow Y Clarity,Urine (test code = UCLAR) Clear Clear PH,Urine (test code = UPH.XX) 6.5 5.5-8.5 Specific Singer,Urine (test code = USG) 1.025 1.005-1.030 N Blood,Urine (test code = UBLD) Negative cells/uL Negative Protein,Urine (test code = UPRO) Negative mg/dL Negative Glucose,Urine (UA) (test code = UGLU) Negative mg/dL Negative Ketones,Urine (test code = UKET) Negative mg/dL Negative Nitrate,Urine (test code = UNIT) Negative Negative Bilirubin,Urine (test code = UBIL) Negative mg/dL Negative Urobilinogen,Urine (test code = UURO) Negative mg/dL Negative Leukocyte Esterase,Urine (test code = ULEU) Negative cells/uL Negative Drug Screen,Qauts6771-64-05 08:10:00* Test Item Value Reference Range Interpretation Comme nts PCP Phencyclidine Screen,Uri ne (test code = PCPU) Negative Negative Amphetamine Screen,Urine (te st code = AMPU) Negative Negative Methadone Screen,Urine (test code = METHU) Negative Negative Opiate Screen,Urine (test co de = UOPIS) Negative Negative Barbituates Screen,Urine (te st code = BARBU) Negative Negative Benzodiazepines Screen,Urine (test code = UBENZS) Positive Negative A Cocaine Screen,Urine (test c ode = UCOCS) Negative Negative Cannabinoid Screen,Urine (te st code = UTHCS) Negative Negative Propoxyphene Screen, Urine ( test code = UPROP) Negative Negative Sars-CoV-2/FLU A/B RSV [id number] 23:20:00* Test Item Value Reference Range Interpretation Comme nts Sars-CoV-2/FLU A/B RSV PCR (test code = SARSFLURSVPCR) For use under Emergency Use Authorization (EUA) only. Sars-CoV-2/FLU A/B RSV PCR (test code = SARSFLURSVPCR1.1) Reference Range: Negative Influenza A PCR: (test code = Influenza A PCR:) Negative by Nucleic Acid Amplification Influenza B PCR: (test code = Influenza B PCR:) Negative by Nucleic Acid Amplification RSV PCR Result: (test code = RSV PCR Result:) Negative by Nucleic Acid Amplification SARS-CoV-2 PCR Result: (test code = SARS-CoV-2 PCR Result:) Negative by PCR Partial Thromboplastin [id number] 22:48:00* Test Item Value Reference Range Interpretation Comme nts Partial Thromboplastin Time (test code = PTT) 30.20 Seconds 24.39-37.25 N Comprehensive Metabolic [id number] 22:48:00* Test Item Value Reference Range Interpretation Comme nts SODIUM (test code = NA) 139.0 mmol/L 136.0-145.0 N Potassium,K (test code = K) 3.9 mmol/L 3.0-5.1 N Chloride (test code = CL) 108 mmol/L 98-107 H Carbon Dioxide (test code = CO2) 23 mmol/L 20-31 N Anion Gap (test code = GAP) 8 mmol/L 5-15 N Blood Urea Nitrogen (test co de = BUN) 12 mg/dL 9-23 N Creatinine (test code = CREATT) 0.80 mg/dL 0.55-1.02 N Creatinine Clr Calc Pharmacy (test code = CRCLPHA) 182.38 mL/min Estimated GFR ( [place] (test code = EGFRAA) > 60 mL/min/1.73m2 Estimated GFR (Non Afr [place] (test code = EGFRNAA) > 60 mL/min/1.73m2 BUN/Creatinine Ratio (test c ode = BCRATIO) 15 ratio 10-20 N Glucose (test code = GLU) 101 mg/dL 74-106 N Osmolality,Calculated (test code = OSMOC) 287.2 Calcium (test code = CA) 8.7 mg/dL 8.3-10.6 N Bilirubin,Total (test code = BILIT) 0.3 mg/dL 0.2-1.1 N Aspartate Amino Transferase (test code = AST) 18 U/L 0-34 N Alanine Aminotransferase (te st code = ALT) 25 U/L 10-49 N Total Protein (test code = TP) 6.4 g/dL 5.7-8.2 N Albumin Level (test code = ALB) 4.5 g/dL 3.2-4.8 N Globulin (test code = GLOB) 1.9 mg/dL 2.3-3.5 L Albumin/Globulin Ratio (test code = AGRATIO) 2.4 ratio 0.8-2.0 H Alkaline Phosphatase (test c ode = ALP) 61 U/L 46-116 N Creatine [id number] 22:48:00* Test Item Value Reference Range Interpretation Comme nts Creatine Kinase (test code = CK) 183 U/L 46-171 H [id number] 22:48:00* Test Item Value Reference Range Interpretation Comme nts Lipase (test code = LIP) 21 U/L 12-53 N [id number] 22:48:00* Test Item Value Reference Range Interpretation Comme nts Briggs (test code = LITH) 0.59 mmol/L 0.60-1.20 L Valproic [id number] 22:48:00* Test Item Value Reference Range Interpretation Comme nts Valproic Acid (test code = VALPA) 8.5 ug/mL(g) 50.0-100.0 L [id number] 22:48:00* Test Item Value Reference Range Interpretation Comme nts Salicylate (test code = ELIESER) < 3.0 mg/dL Complete Blood Count Auto [id number] 22:48:00* Test Item Value Reference Range Interpretation Comme nts White Blood Count (test code = WBCT) 14.5 x10 3/uL 4.4-10.5 H Red Blood Count (test code = RBC) 5.12 x10 6/uL 4.10-5.70 N Hemoglobin (test code = HGBT) 15.1 g/dL 13.4-17.4 N Hematocrit (test code = HCTT) 47.4 % 38.7-52.0 N Mean Corpuscular Volume (leda t code = MCV) 92.60 fL 80.00-100.00 N Mean Corpuscular Hemoglobin (test code = MCH) 29.5 pg 27.0-32.5 N Mean Corpuscular HGB Conc (test code = MCHC) 31.90 g/dL 32.00-37.50 L RDW Coefficient of Variation (test code = RDWCV) 13.0 % 11.5-14.5 N Platelet Count (test code = PLTT) 210.0 x10 3/uL 140.0-440.0 N Mean Platelet Volume (test code = MPV) 12.5 fL Immature Granulocytes % (Aut o) (test code = IMMGRAN%) 0.5 % 0.0-5.0 N Neutrophils % (Auto) (test code = NE%) 71.8 % 36.0-70.0 H Lymphocytes % (Auto) (test code = LY%) 17.8 % 12.0-44.0 N Monocytes % (Auto) (test cod e = MO%) 6.8 % 0.0-11.0 N Eosinophils % (Auto) (test code = EO%) 2.8 % 0.0-7.0 N Basophils % (Auto) (test cod e = BA%) 0.3 % 0.0-2.0 N Immature Granulocytes # (Aut o) (test code = IMMGRAN#) 0.07 x10 3/uL Neutrophils # (Auto) (test code = NE#) 10.4 x10 3/uL 1.6-7.4 H Lymphocytes # (Auto) (test code = LY#) 2.58 x10 3/uL 0.50-4.60 N Monocytes # (Auto) (test cod e = MO#) 0.98 x10 3/uL 0.00-1.20 N Eosinophils # (Auto) (test code = EO#) 0.41 x10 3/uL 0.00-0.74 N Basophils # (Auto) (test cod e = BA#) 0.05 x10 3/uL 0.00-0.21 N nRBC Abs (test code = NRBCA) 0 nRBC Pct (test code = NRBCP) 0 % Prothrombin Time [id number] 22:48:00* Test Item Value Reference Range Interpretation Comme nts Prothrombin Time (test code = PT) 13.3 Seconds 9.8-13.4 N INR (test code = INR) 1.2 ratio 0.6-1.2 N LAB ONLY COVID [id number] 02:49:00COVID DMT InterpretationInterpretation/Recommendations:Molecular NAAT Tests for Active Infection with the SARS-CoV-2 Virus:The patient has currently tested negative for the SARS-CoV-2 virus that causes COVID-19 illness. This most likely indicates that the patient does not have an active infection with the SARS-CoV-2 virus at this time. However, infection is not completely ruled out as the false negative rate for molecular NAAT testing using a nasopharyngeal sample can be up to 30%, mostly dependent on the timing of sample collection in relation to illness onset and any deficiencies in sampling techniques. If the patient continues to have persistent or worsening symptoms concerning for COVID-19 illness, a repeat NAAT test (PCR, Rapid ID Now, etc.) should be performed, at which time the SARS-CoV-2 virus - if present - may have reached a detectable viral load (usually peaking by the end ofthe first week of symptoms). Tests for IgM and/or IgG Antibodies to SARS-CoV-2 Virus:Testing for IgM and IgG antibodies 1-3 weeks after illness onset will indicate whether the patient has produced ant ibodies to the virus. At this time, it is not known if the production of antibodies - specifically IgG antibodies - indicates whether the patient is immune to future infections with the SARS-CoV-2 virus. Interpretation Result Comments:These interpretation comments are based upon all COVID-19 testing the patient has had at [facility], including molecular NAAT testing (more commonly known as PCR testing and Rapid ID Now testing) and antibody testing. It does not take into account any testing that a patient has had outside of the[facility]. [facility] LABORATORY SERVICESCOVID FhslxehBFAL-IqL-9 NAAT (no units) ? ? Date ? Value ? 10/16/2019 ? Positive (A) ? SARS-CoV-2 Rapid ID NOW (no units) ? ? Date ? Value ? 04/21/2020 ? Not Detected ? ? ? 04/17/2020 ? Not Detected ? ? ? 12/16/2019 ? Not Detected ? [facility]OR[facility] SERVICESUnVal[facility]enLAB ONLY COVID [id number] 02:49:00COVID DMT InterpretationInterpretation/Recommendations:Molecular NAAT Tests for Active Infection with the SARS-CoV-2 Virus:The patient has currently tested negative for the SARS-CoV-2 virus that causes COVID-19 illness. This most likely indicates that the patient does not have an active infection with the SARS-CoV-2 virus at this time. However, infection is not completely ruled out as the false negative rate for molecular NAAT testing using a nasopharyngeal sample can be up to 30%, mostly dependent on the timing of sample collection in relation to illness onset and any deficiencies in sampling techniques. If the patient continues to have persistent or worsening symptoms concerning for COVID-19 illness, a repeat NAAT test (PCR, Rapid ID Now, etc.) should be performed, at which time the SARS-CoV-2 virus - if present - may have reached a detectable viral load (usually peaking by the end ofthe first week of symptoms). Tests for IgM and/or IgG Antibodies to SARS-CoV-2 Virus:Testing for IgM and IgG antibodies 1-3 weeks after illness onset will indicate whether the patient has produced ant ibodies to the virus. At this time, it is not known if the production of antibodies - specifically IgG antibodies - indicates whether the patient is immune to future infections with the SARS-CoV-2 virus. Interpretation Result Comments:These interpretation comments are based upon all COVID-19 testing the patient has had at [facility], including molecular NAAT testing (more commonly known as PCR testing and Rapid ID Now testing) and antibody testing. It does not take into account any testing that a patient has had outside of the[facility]. [facility] LABORATORY SERVICESCOVID MmzdmnmTMLG-ToE-4 NAAT (no units) ? ? Date ? Value ? 10/16/2019 ? Positive (A) ? SARS-CoV-2 Rapid ID NOW (no units) ? ? Date ? Value ? 04/21/2020 ? Not Detected ? ? ? 04/17/2020 ? Not Detected ? ? ? 12/16/2019 ? Not Detected ? [facility] LABORATORY SERVICESMethodist [facility] HospitalLAB ONLY COVID [id number] 02:49:00COVID DMT InterpretationInterpretation/Recommendations:Molecular NAAT Tests for Active Infection with the SARS-CoV-2 Virus:The patient has currently tested negative for the SARS-CoV-2 virus that causes COVID-19 illness. This most likely indicates that the patient does not have an active infection with the SARS-CoV-2 virus at this time. However, infection is not completely ruled out as the false negative rate for molecular NAAT testing using a nasopharyngeal sample can be up to 30%, mostly dependent on the timing of sample collection in relation to illness onset and any deficiencies in sampling techniques. If the patient continues to have persistent or worsening symptoms concerning for COVID-19 illness, a repeat NAAT test (PCR, Rapid ID Now, etc.) should be performed, at which time the SARS-CoV-2 virus - if present - may have reached a detectable viral load (usually peaking by the end ofthe first week of symptoms). Tests for IgM and/or IgG Antibodies to SARS-CoV-2 Virus:Testing for IgM and IgG antibodies 1-3 weeks after illness onset will indicate whether the patient has produced ant ibodies to the virus. At this time, it is not known if the production of antibodies - specifically IgG antibodies - indicates whether the patient is immune to future infections with the SARS-CoV-2 virus. Interpretation Result Comments:These interpretation comments are based upon all COVID-19 testing the patient has had at [facility], including molecular NAAT testing (more commonly known as PCR testing and Rapid ID Now testing) and antibody testing. It does not take into account any testing that a patient has had outside of the[facility]. [facility] LABORATORY SERVICESCOVID PlqnuygSDRJ-CfN-2 NAAT (no units) ? ? Date ? Value ? 10/16/2019 ? Positive (A) ? SARS-CoV-2 Rapid ID NOW (no units) ? ? Date ? Value ? 04/21/2020 ? Not Detected ? ? ? 04/17/2020 ? Not Detected ? ? ? 12/16/2019 ? Not Detected ? [facility] LABORATORY SERVICESUnVal[facility]enLAB ONLY COVID [id number] 02:49:00COVID DMT InterpretationInterpretation/Recommendations:Molecular NAAT Tests for Active Infection with the SARS-CoV-2 Virus:The patient has currently tested negative for the SARS-CoV-2 virus that causes COVID-19 illness. This most likely indicates that the patient does not have an active infection with the SARS-CoV-2 virus at this time. However, infection is not completely ruled out as the false negative rate for molecular NAAT testing using a nasopharyngeal sample can be up to 30%, mostly dependent on the timing of sample collection in relation to illness onset and any deficiencies in sampling techniques. If the patient continues to have persistent or worsening symptoms concerning for COVID-19 illness, a repeat NAAT test (PCR, Rapid ID Now, etc.) should be performed, at which time the SARS-CoV-2 virus - if present - may have reached a detectable viral load (usually peaking by the end ofthe first week of symptoms). Tests for IgM and/or IgG Antibodies to SARS-CoV-2 Virus:Testing for IgM and IgG antibodies 1-3 weeks after illness onset will indicate whether the patient has produced ant ibodies to the virus. At this time, it is not known if the production of antibodies - specifically IgG antibodies - indicates whether the patient is immune to future infections with the SARS-CoV-2 virus. Interpretation Result Comments:These interpretation comments are based upon all COVID-19 testing the patient has had at [facility], including molecular NAAT testing (more commonly known as PCR testing and Rapid ID Now testing) and antibody testing. It does not take into account any testing that a patient has had outside of the[facility]. [facility] LABORATORY SERVICESCOVID KaxgwvtKECC-QvU-8 NAAT (no units) ? ? Date ? Value ? 10/16/2019 ? Positive (A) ? SARS-CoV-2 Rapid ID NOW (no units) ? ? Date ? Value ? 04/21/2020 ? Not Detected ? ? ? 04/17/2020 ? Not Detected ? ? ? 12/16/2019 ? Not Detected ? [facility] LABORATORY SERVICESUnVal[facility]lingenLAB ONLY COVID [id number] 02:49:00COVID DMT InterpretationInterpretation/Recommendations:Molecular NAAT Tests for Active Infection with the SARS-CoV-2 Virus:The patient has currently tested negative for the SARS-CoV-2 virus that causes COVID-19 illness. This most likely indicates that the patient does not have an active infection with the SARS-CoV-2 virus at this time. However, infection is not completely ruled out as the false negative rate for molecular NAAT testing using a nasopharyngeal sample can be up to 30%, mostly dependent on the timing of sample collection in relation to illness onset and any deficiencies in sampling techniques. If the patient continues to have persistent or worsening symptoms concerning for COVID-19 illness, a repeat NAAT test (PCR, Rapid ID Now, etc.) should be performed, at which time the SARS-CoV-2 virus - if present - may have reached a detectable viral load (usually peaking by the end ofthe first week of symptoms). Tests for IgM and/or IgG Antibodies to SARS-CoV-2 Virus:Testing for IgM and IgG antibodies 1-3 weeks after illness onset will indicate whether the patient has produced ant ibodies to the virus. At this time, it is not known if the production of antibodies - specifically IgG antibodies - indicates whether the patient is immune to future infections with the SARS-CoV-2 virus. Interpretation Result Comments:These interpretation comments are based upon all COVID-19 testing the patient has had at [facility], including molecular NAAT testing (more commonly known as PCR testing and Rapid ID Now testing) and antibody testing. It does not take into account any testing that a patient has had outside of the[facility]. [facility] LABORATORY SERVICESCOVID XsnplasUJNO-CuR-4 NAAT (no units) ? ? Date ? Value ? 10/16/2019 ? Positive (A) ? SARS-CoV-2 Rapid ID NOW (no units) ? ? Date ? Value ? 04/21/2020 ? Not Detected ? ? ? 04/17/2020 ? Not Detected ? ? ? 12/16/2019 ? Not Detected ? [facility] LABORATORY SERVICESUnVal[facility]enLAB ONLY COVID [id number] 02:49:00COVID DMT InterpretationInterpretation/Recommendations:Molecular NAAT Tests for Active Infection with the SARS-CoV-2 Virus:The patient has currently tested negative for the SARS-CoV-2 virus that causes COVID-19 illness. This most likely indicates that the patient does not have an active infection with the SARS-CoV-2 virus at this time. However, infection is not completely ruled out as the false negative rate for molecular NAAT testing using a nasopharyngeal sample can be up to 30%, mostly dependent on the timing of sample collection in relation to illness onset and any deficiencies in sampling techniques. If the patient continues to have persistent or worsening symptoms concerning for COVID-19 illness, a repeat NAAT test (PCR, Rapid ID Now, etc.) should be performed, at which time the SARS-CoV-2 virus - if present - may have reached a detectable viral load (usually peaking by the end ofthe first week of symptoms). Tests for IgM and/or IgG Antibodies to SARS-CoV-2 Virus:Testing for IgM and IgG antibodies 1-3 weeks after illness onset will indicate whether the patient has produced ant ibodies to the virus. At this time, it is not known if the production of antibodies - specifically IgG antibodies - indicates whether the patient is immune to future infections with the SARS-CoV-2 virus. Interpretation Result Comments:These interpretation comments are based upon all COVID-19 testing the patient has had at [facility], including molecular NAAT testing (more commonly known as PCR testing and Rapid ID Now testing) and antibody testing. It does not take into account any testing that a patient has had outside of the[facility]. [facility] LABORATORY SERVICESCOVID [id number]-[id number]-[id number] NAAT (no units) ? ? Date ? Value ? 10/16/2019 ? Positive (A) ? SARS-CoV-2 Rapid ID NOW (no units) ? ? Date ? Value ? 04/21/2020 ? Not Detected ? ? ? 04/17/2020 ? Not Detected ? ? ? 12/16/2019 ? Not Detected ? [facility] COVID [id number] 02:49:00COVID DMT InterpretationInterpretation/Recommendations:Molecular NAAT Tests for Active Infection with the SARS-CoV-2 Virus:The patient has currently tested negative for the SARS-CoV-2 virus that causes COVID-19 illness. This most likely indicates that the patient does not have an active infection with the SARS-CoV-2 virus at this time. However, infection is not completely ruled out as the false negative rate for molecular NAAT testing using a nasopharyngeal sample can be up to 30%, mostly dependent on the timing of sample collection in relation to illness onset and any deficiencies in sampling techniques. If the patient continues to have persistent or worsening symptoms concerning for COVID-19 illness, a repeat NAAT test (PCR, Rapid ID Now, etc.) should be performed, at which time the SARS-CoV-2 virus - if present - may have reached a detectable viral load (usually peaking by the end ofthe first week of symptoms). Tests for IgM and/or IgG Antibodies to SARS-CoV-2 Virus:Testing for IgM and IgG antibodies 1-3 weeks after illness onset will indicate whether the patient has produced ant ibodies to the virus. At this time, it is not known if the production of antibodies - specifically IgG antibodies - indicates whether the patient is immune to future infections with the SARS-CoV-2 virus. Interpretation Result Comments:These interpretation comments are based upon all COVID-19 testing the patient has had at [facility], including molecular NAAT testing (more commonly known as PCR testing and Rapid ID Now testing) and antibody testing. It does not take into account any testing that a patient has had outside of the[facility]. [facility] LABORATORY SERVICESCOVID [id number]-OwZ-7 NAAT (no units) ? ? Date ? Value ? 10/16/2019 ? Positive (A) ? SARS-CoV-2 Rapid ID NOW (no units) ? ? Date ? Value ? 04/21/2020 ? Not Detected ? ? ? 04/17/2020 ? Not Detected ? ? ? 12/16/2019 ? Not Detected ? [facility]LAB ONLY COVID [id number] 02:49:00COVID DMT InterpretationInterpretation/Recommendations:Molecular NAAT Tests for Active Infection with the SARS-CoV-2 Virus:The patient has currently tested negative for the SARS-CoV-2 virus that causes COVID-19 illness. This most likely indicates that the patient does not have an active infection with the SARS-CoV-2 virus at this time. However, infection is not completely ruled out as the false negative rate for molecular NAAT testing using a nasopharyngeal sample can be up to 30%, mostly dependent on the timing of sample collection in relation to illness onset and any deficiencies in sampling techniques. If the patient continues to have persistent or worsening symptoms concerning for COVID-19 illness, a repeat NAAT test (PCR, Rapid ID Now, etc.) should be performed, at which time the SARS-CoV-2 virus - if present - may have reached a detectable viral load (usually peaking by the end ofthe first week of symptoms). Tests for IgM and/or IgG Antibodies to SARS-CoV-2 Virus:Testing for IgM and IgG antibodies 1-3 weeks after illness onset will indicate whether the patient has produced ant ibodies to the virus. At this time, it is not known if the production of antibodies - specifically IgG antibodies - indicates whether the patient is immune to future infections with the SARS-CoV-2 virus. Interpretation Result Comments:These interpretation comments are based upon all COVID-19 testing the patient has had at [facility], including molecular NAAT testing (more commonly known as PCR testing and Rapid ID Now testing) and antibody testing. It does not take into account any testing that a patient has had outside of the[facility]. [facility] LABORATORY SERVICESCOVID [id number]-[id number] NAAT (no units) ? ? Date ? Value ? 10/16/2019 ? Positive (A) ? SARS-CoV-2 Rapid ID NOW (no units) ? ? Date ? Value ? 04/21/2020 ? Not Detected ? ? ? 04/17/2020 ? Not Detected ? ? ? 12/16/2019 ? Not Detected ? [facility] SERVICESUnVal[facility]enLAB ONLY COVID [id number] 02:49:00COVID DMT InterpretationInterpretation/Recommendations:Molecular NAAT Tests for Active Infection with the SARS-CoV-2 Virus:The patient has currently tested negative for the SARS-CoV-2 virus that causes COVID-19 illness. This most likely indicates that the patient does not have an active infection with the SARS-CoV-2 virus at this time. However, infection is not completely ruled out as the false negative rate for molecular NAAT testing using a nasopharyngeal sample can be up to 30%, mostly dependent on the timing of sample collection in relation to illness onset and any deficiencies in sampling techniques. If the patient continues to have persistent or worsening symptoms concerning for COVID-19 illness, a repeat NAAT test (PCR, Rapid ID Now, etc.) should be performed, at which time the SARS-CoV-2 virus - if present - may have reached a detectable viral load (usually peaking by the end ofthe first week of symptoms). Tests for IgM and/or IgG Antibodies to SARS-CoV-2 Virus:Testing for IgM and IgG antibodies 1-3 weeks after illness onset will indicate whether the patient has produced ant ibodies to the virus. At this time, it is not known if the production of antibodies - specifically IgG antibodies - indicates whether the patient is immune to future infections with the SARS-CoV-2 virus. Interpretation Result Comments:These interpretation comments are based upon all COVID-19 testing the patient has had at [facility], including molecular NAAT testing (more commonly known as PCR testing and Rapid ID Now testing) and antibody testing. It does not take into account any testing that a patient has had outside of the[facility]. [facility] LABORATORY SERVICESCOVID [id number] NAAT (no units) ? ? Date ? Value ? 10/16/2019 ? Positive (A) ? SARS-CoV-2 Rapid ID NOW (no units) ? ? Date ? Value ? 04/21/2020 ? Not Detected ? ? ? 04/17/2020 ? Not Detected ? ? ? 12/16/2019 ? Not Detected ? [facility]ORATORY SERVICESUnVal[facility]enLAB ONLY COVID [id number] 02:49:00COVID DMT InterpretationInterpretation/Recommendations:Molecular NAAT Tests for Active Infection with the SARS-CoV-2 Virus:The patient has currently tested negative for the SARS-CoV-2 virus that causes COVID-19 illness. This most likely indicates that the patient does not have an active infection with the SARS-CoV-2 virus at this time. However, infection is not completely ruled out as the false negative rate for molecular NAAT testing using a nasopharyngeal sample can be up to 30%, mostly dependent on the timing of sample collection in relation to illness onset and any deficiencies in sampling techniques. If the patient continues to have persistent or worsening symptoms concerning for COVID-19 illness, a repeat NAAT test (PCR, Rapid ID Now, etc.) should be performed, at which time the SARS-CoV-2 virus - if present - may have reached a detectable viral load (usually peaking by the end ofthe first week of symptoms). Tests for IgM and/or IgG Antibodies to SARS-CoV-2 Virus:Testing for IgM and IgG antibodies 1-3 weeks after illness onset will indicate whether the patient has produced ant ibodies to the virus. At this time, it is not known if the production of antibodies - specifically IgG antibodies - indicates whether the patient is immune to future infections with the SARS-CoV-2 virus. Interpretation Result Comments:These interpretation comments are based upon all COVID-19 testing the patient has had at [facility], including molecular NAAT testing (more commonly known as PCR testing and Rapid ID Now testing) and antibody testing. It does not take into account any testing that a patient has had outside of the[facility]. [facility] LABORATORY SERVICESCOVID [id number] NAAT (no units) ? ? Date ? Value ? 10/16/2019 ? Positive (A) ? SARS-CoV-2 Rapid ID NOW (no units) ? ? Date ? Value ? 04/21/2020 ? Not Detected ? ? ? 04/17/2020 ? Not Detected ? ? ? 12/16/2019 ? Not Detected ? [facility] LABORATORY SERVICESUnVal[facility]enLAB ONLY COVID [id number] 02:49:00COVID DMT InterpretationInterpretation/Recommendations:Molecular NAAT Tests for Active Infection with the SARS-CoV-2 Virus:The patient has currently tested negative for the SARS-CoV-2 virus that causes COVID-19 illness. This most likely indicates that the patient does not have an active infection with the SARS-CoV-2 virus at this time. However, infection is not completely ruled out as the false negative rate for molecular NAAT testing using a nasopharyngeal sample can be up to 30%, mostly dependent on the timing of sample collection in relation to illness onset and any deficiencies in sampling techniques. If the patient continues to have persistent or worsening symptoms concerning for COVID-19 illness, a repeat NAAT test (PCR, Rapid ID Now, etc.) should be performed, at which time the SARS-CoV-2 virus - if present - may have reached a detectable viral load (usually peaking by the end ofthe first week of symptoms). Tests for IgM and/or IgG Antibodies to SARS-CoV-2 Virus:Testing for IgM and IgG antibodies 1-3 weeks after illness onset will indicate whether the patient has produced ant ibodies to the virus. At this time, it is not known if the production of antibodies - specifically IgG antibodies - indicates whether the patient is immune to future infections with the SARS-CoV-2 virus. Interpretation Result Comments:These interpretation comments are based upon all COVID-19 testing the patient has had at [facility], including molecular NAAT testing (more commonly known as PCR testing and Rapid ID Now testing) and antibody testing. It does not take into account any testing that a patient has had outside of the[facility]. [facility] LABORATORY SERVICESCOVID [id number]-[id number] NAAT (no units) ? ? Date ? Value ? 10/16/2019 ? Positive (A) ? SARS-CoV-2 Rapid ID NOW (no units) ? ? Date ? Value ? 04/21/2020 ? Not Detected ? ? ? 04/17/2020 ? Not Detected ? ? ? 12/16/2019 ? Not Detected ? [facility] SERVICESMethod[facility] HospitalLAB ONLY COVID [id number] 02:49:00COVID DMT InterpretationInterpretation/Recommendations:Molecular NAAT Tests for Active Infection with the SARS-CoV-2 Virus:The patient has currently tested negative for the SARS-CoV-2 virus that causes COVID-19 illness. This most likely indicates that the patient does not have an active infection with the SARS-CoV-2 virus at this time. However, infection is not completely ruled out as the false negative rate for molecular NAAT testing using a nasopharyngeal sample can be up to 30%, mostly dependent on the timing of sample collection in relation to illness onset and any deficiencies in sampling techniques. If the patient continues to have persistent or worsening symptoms concerning for COVID-19 illness, a repeat NAAT test (PCR, Rapid ID Now, etc.) should be performed, at which time the SARS-CoV-2 virus - if present - may have reached a detectable viral load (usually peaking by the end ofthe first week of symptoms). Tests for IgM and/or IgG Antibodies to SARS-CoV-2 Virus:Testing for IgM and IgG antibodies 1-3 weeks after illness onset will indicate whether the patient has produced ant ibodies to the virus. At this time, it is not known if the production of antibodies - specifically IgG antibodies - indicates whether the patient is immune to future infections with the SARS-CoV-2 virus. Interpretation Result Comments:These interpretation comments are based upon all COVID-19 testing the patient has had at [facility], including molecular NAAT testing (more commonly known as PCR testing and Rapid ID Now testing) and antibody testing. It does not take into account any testing that a patient has had outside of the[facility]. [facility] LABORATORY SERVICESCOVID [id number] NAAT (no units) ? ? Date ? Value ? 10/16/2019 ? Positive (A) ? SARS-CoV-2 Rapid ID NOW (no units) ? ? Date ? Value ? 04/21/2020 ? Not Detected ? ? ? 04/17/2020 ? Not Detected ? ? ? 12/16/2019 ? Not Detected ? [facility] SERVICESMethod[facility] HospitalLAB ONLY COVID [id number] 02:49:00COVID DMT InterpretationInterpretation/Recommendations:Molecular NAAT Tests for Active Infection with the SARS-CoV-2 Virus:The patient has currently tested negative for the SARS-CoV-2 virus that causes COVID-19 illness. This most likely indicates that the patient does not have an active infection with the SARS-CoV-2 virus at this time. However, infection is not completely ruled out as the false negative rate for molecular NAAT testing using a nasopharyngeal sample can be up to 30%, mostly dependent on the timing of sample collection in relation to illness onset and any deficiencies in sampling techniques. If the patient continues to have persistent or worsening symptoms concerning for COVID-19 illness, a repeat NAAT test (PCR, Rapid ID Now, etc.) should be performed, at which time the SARS-CoV-2 virus - if present - may have reached a detectable viral load (usually peaking by the end ofthe first week of symptoms). Tests for IgM and/or IgG Antibodies to SARS-CoV-2 Virus:Testing for IgM and IgG antibodies 1-3 weeks after illness onset will indicate whether the patient has produced ant ibodies to the virus. At this time, it is not known if the production of antibodies - specifically IgG antibodies - indicates whether the patient is immune to future infections with the SARS-CoV-2 virus. Interpretation Result Comments:These interpretation comments are based upon all COVID-19 testing the patient has had at [facility], including molecular NAAT testing (more commonly known as PCR testing and Rapid ID Now testing) and antibody testing. It does not take into account any testing that a patient has had outside of the[facility]. [facility] LABORATORY SERVICESCOVID [id number]-[id number] NAAT (no units) ? ? Date ? Value ? 10/16/2019 ? Positive (A) ? SARS-CoV-2 Rapid ID NOW (no units) ? ? Date ? Value ? 04/21/2020 ? Not Detected ? ? ? 04/17/2020 ? Not Detected ? ? ? 12/16/2019 ? Not Detected ? [facility] SERVICESUnVal[facility]enLAB ONLY COVID [id number] 02:49:00COVID DMT InterpretationInterpretation/Recommendations:Molecular NAAT Tests for Active Infection with the SARS-CoV-2 Virus:The patient has currently tested negative for the SARS-CoV-2 virus that causes COVID-19 illness. This most likely indicates that the patient does not have an active infection with the SARS-CoV-2 virus at this time. However, infection is not completely ruled out as the false negative rate for molecular NAAT testing using a nasopharyngeal sample can be up to 30%, mostly dependent on the timing of sample collection in relation to illness onset and any deficiencies in sampling techniques. If the patient continues to have persistent or worsening symptoms concerning for COVID-19 illness, a repeat NAAT test (PCR, Rapid ID Now, etc.) should be performed, at which time the SARS-CoV-2 virus - if present - may have reached a detectable viral load (usually peaking by the end ofthe first week of symptoms). Tests for IgM and/or IgG Antibodies to SARS-CoV-2 Virus:Testing for IgM and IgG antibodies 1-3 weeks after illness onset will indicate whether the patient has produced ant ibodies to the virus. At this time, it is not known if the production of antibodies - specifically IgG antibodies - indicates whether the patient is immune to future infections with the SARS-CoV-2 virus. Interpretation Result Comments:These interpretation comments are based upon all COVID-19 testing the patient has had at [facility], including molecular NAAT testing (more commonly known as PCR testing and Rapid ID Now testing) and antibody testing. It does not take into account any testing that a patient has had outside of the[facility]. [facility] LABORATORY SERVICESCOVID [id number]-[id number]-0 NAAT (no units) ? ? Date ? Value ? 10/16/2019 ? Positive (A) ? SARS-CoV-2 Rapid ID NOW (no units) ? ? Date ? Value ? 04/21/2020 ? Not Detected ? ? ? 04/17/2020 ? Not Detected ? ? ? 12/16/2019 ? Not Detected ? [facility] SERVICESUnVal[facility]enLAB ONLY COVID [id number] 02:49:00COVID DMT InterpretationInterpretation/Recommendations:Molecular NAAT Tests for Active Infection with the SARS-CoV-2 Virus:The patient has currently tested negative for the SARS-CoV-2 virus that causes COVID-19 illness. This most likely indicates that the patient does not have an active infection with the SARS-CoV-2 virus at this time. However, infection is not completely ruled out as the false negative rate for molecular NAAT testing using a nasopharyngeal sample can be up to 30%, mostly dependent on the timing of sample collection in relation to illness onset and any deficiencies in sampling techniques. If the patient continues to have persistent or worsening symptoms concerning for COVID-19 illness, a repeat NAAT test (PCR, Rapid ID Now, etc.) should be performed, at which time the SARS-CoV-2 virus - if present - may have reached a detectable viral load (usually peaking by the end ofthe first week of symptoms). Tests for IgM and/or IgG Antibodies to SARS-CoV-2 Virus:Testing for IgM and IgG antibodies 1-3 weeks after illness onset will indicate whether the patient has produced ant ibodies to the virus. At this time, it is not known if the production of antibodies - specifically IgG antibodies - indicates whether the patient is immune to future infections with the SARS-CoV-2 virus. Interpretation Result Comments:These interpretation comments are based upon all COVID-19 testing the patient has had at [facility], including molecular NAAT testing (more commonly known as PCR testing and Rapid ID Now testing) and antibody testing. It does not take into account any testing that a patient has had outside of the[facility]. [facility] LABORATORY SERVICESCOVID [id number] NAAT (no units) ? ? Date ? Value ? 10/16/2019 ? Positive (A) ? SARS-CoV-2 Rapid ID NOW (no units) ? ? Date ? Value ? 04/21/2020 ? Not Detected ? ? ? 04/17/2020 ? Not Detected ? ? ? 12/16/2019 ? Not Detected ? [facility] SERVICESMethod[facility] HospitalLAB ONLY COVID [id number] 02:49:00COVID DMT InterpretationInterpretation/Recommendations:Molecular NAAT Tests for Active Infection with the SARS-CoV-2 Virus:The patient has currently tested negative for the SARS-CoV-2 virus that causes COVID-19 illness. This most likely indicates that the patient does not have an active infection with the SARS-CoV-2 virus at this time. However, infection is not completely ruled out as the false negative rate for molecular NAAT testing using a nasopharyngeal sample can be up to 30%, mostly dependent on the timing of sample collection in relation to illness onset and any deficiencies in sampling techniques. If the patient continues to have persistent or worsening symptoms concerning for COVID-19 illness, a repeat NAAT test (PCR, Rapid ID Now, etc.) should be performed, at which time the SARS-CoV-2 virus - if present - may have reached a detectable viral load (usually peaking by the end ofthe first week of symptoms). Tests for IgM and/or IgG Antibodies to SARS-CoV-2 Virus:Testing for IgM and IgG antibodies 1-3 weeks after illness onset will indicate whether the patient has produced ant ibodies to the virus. At this time, it is not known if the production of antibodies - specifically IgG antibodies - indicates whether the patient is immune to future infections with the SARS-CoV-2 virus. Interpretation Result Comments:These interpretation comments are based upon all COVID-19 testing the patient has had at [facility], including molecular NAAT testing (more commonly known as PCR testing and Rapid ID Now testing) and antibody testing. It does not take into account any testing that a patient has had outside of the[facility]. [facility] LABORATORY SERVICESCOVID [id number]-[id number] NAAT (no units) ? ? Date ? Value ? 10/16/2019 ? Positive (A) ? SARS-CoV-2 Rapid ID NOW (no units) ? ? Date ? Value ? 04/21/2020 ? Not Detected ? ? ? 04/17/2020 ? Not Detected ? ? ? 12/16/2019 ? Not Detected ? [facility] SERVICESUnVal[facility]enLAB ONLY COVID [id number] 02:49:00COVID DMT InterpretationInterpretation/Recommendations:Molecular NAAT Tests for Active Infection with the SARS-CoV-2 Virus:The patient has currently tested negative for the SARS-CoV-2 virus that causes COVID-19 illness. This most likely indicates that the patient does not have an active infection with the SARS-CoV-2 virus at this time. However, infection is not completely ruled out as the false negative rate for molecular NAAT testing using a nasopharyngeal sample can be up to 30%, mostly dependent on the timing of sample collection in relation to illness onset and any deficiencies in sampling techniques. If the patient continues to have persistent or worsening symptoms concerning for COVID-19 illness, a repeat NAAT test (PCR, Rapid ID Now, etc.) should be performed, at which time the SARS-CoV-2 virus - if present - may have reached a detectable viral load (usually peaking by the end ofthe first week of symptoms). Tests for IgM and/or IgG Antibodies to SARS-CoV-2 Virus:Testing for IgM and IgG antibodies 1-3 weeks after illness onset will indicate whether the patient has produced ant ibodies to the virus. At this time, it is not known if the production of antibodies - specifically IgG antibodies - indicates whether the patient is immune to future infections with the SARS-CoV-2 virus. Interpretation Result Comments:These interpretation comments are based upon all COVID-19 testing the patient has had at [facility], including molecular NAAT testing (more commonly known as PCR testing and Rapid ID Now testing) and antibody testing. It does not take into account any testing that a patient has had outside of the[facility]. [facility] LABORATORY SERVICESCOVID [id number]-[id number]-[id number] NAAT (no units) ? ? Date ? Value ? 10/16/2019 ? Positive (A) ? SARS-CoV-2 Rapid ID NOW (no units) ? ? Date ? Value ? 04/21/2020 ? Not Detected ? ? ? 04/17/2020 ? Not Detected ? ? ? 12/16/2019 ? Not Detected ? [facility] COVID [id number] 02:49:00COVID DMT InterpretationInterpretation/Recommendations:Molecular NAAT Tests for Active Infection with the SARS-CoV-2 Virus:The patient has currently tested negative for the SARS-CoV-2 virus that causes COVID-19 illness. This most likely indicates that the patient does not have an active infection with the SARS-CoV-2 virus at this time. However, infection is not completely ruled out as the false negative rate for molecular NAAT testing using a nasopharyngeal sample can be up to 30%, mostly dependent on the timing of sample collection in relation to illness onset and any deficiencies in sampling techniques. If the patient continues to have persistent or worsening symptoms concerning for COVID-19 illness, a repeat NAAT test (PCR, Rapid ID Now, etc.) should be performed, at which time the SARS-CoV-2 virus - if present - may have reached a detectable viral load (usually peaking by the end ofthe first week of symptoms). Tests for IgM and/or IgG Antibodies to SARS-CoV-2 Virus:Testing for IgM and IgG antibodies 1-3 weeks after illness onset will indicate whether the patient has produced ant ibodies to the virus. At this time, it is not known if the production of antibodies - specifically IgG antibodies - indicates whether the patient is immune to future infections with the SARS-CoV-2 virus. Interpretation Result Comments:These interpretation comments are based upon all COVID-19 testing the patient has had at [facility], including molecular NAAT testing (more commonly known as PCR testing and Rapid ID Now testing) and antibody testing. It does not take into account any testing that a patient has had outside of the[facility]. [facility] LABORATORY SERVICESCOVID [id number]-SuU-7 NAAT (no units) ? ? Date ? Value ? 10/16/2019 ? Positive (A) ? SARS-CoV-2 Rapid ID NOW (no units) ? ? Date ? Value ? 04/21/2020 ? Not Detected ? ? ? 04/17/2020 ? Not Detected ? ? ? 12/16/2019 ? Not Detected ? [facility] SERVICESUnVal[facility]LAB ONLY COVID [id number] 02:49:00COVID DMT InterpretationInterpretation/Recommendations:Molecular NAAT Tests for Active Infection with the SARS-CoV-2 Virus:The patient has currently tested negative for the SARS-CoV-2 virus that causes COVID-19 illness. This most likely indicates that the patient does not have an active infection with the SARS-CoV-2 virus at this time. However, infection is not completely ruled out as the false negative rate for molecular NAAT testing using a nasopharyngeal sample can be up to 30%, mostly dependent on the timing of sample collection in relation to illness onset and any deficiencies in sampling techniques. If the patient continues to have persistent or worsening symptoms concerning for COVID-19 illness, a repeat NAAT test (PCR, Rapid ID Now, etc.) should be performed, at which time the SARS-CoV-2 virus - if present - may have reached a detectable viral load (usually peaking by the end ofthe first week of symptoms). Tests for IgM and/or IgG Antibodies to SARS-CoV-2 Virus:Testing for IgM and IgG antibodies 1-3 weeks after illness onset will indicate whether the patient has produced ant ibodies to the virus. At this time, it is not known if the production of antibodies - specifically IgG antibodies - indicates whether the patient is immune to future infections with the SARS-CoV-2 virus. Interpretation Result Comments:These interpretation comments are based upon all COVID-19 testing the patient has had at [facility], including molecular NAAT testing (more commonly known as PCR testing and Rapid ID Now testing) and antibody testing. It does not take into account any testing that a patient has had outside of the[facility]. [facility] LABORATORY SERVICESCOVID [id number]-[id number] NAAT (no units) ? ? Date ? Value ? 10/16/2019 ? Positive (A) ? SARS-CoV-2 Rapid ID NOW (no units) ? ? Date ? Value ? 04/21/2020 ? Not Detected ? ? ? 04/17/2020 ? Not Detected ? ? ? 12/16/2019 ? Not Detected ? [facility] LABOR[facility] SERVICESUnVal[facility]enLAB ONLY COVID [id number] 02:49:00COVID DMT InterpretationInterpretation/Recommendations:Molecular NAAT Tests for Active Infection with the SARS-CoV-2 Virus:The patient has currently tested negative for the SARS-CoV-2 virus that causes COVID-19 illness. This most likely indicates that the patient does not have an active infection with the SARS-CoV-2 virus at this time. However, infection is not completely ruled out as the false negative rate for molecular NAAT testing using a nasopharyngeal sample can be up to 30%, mostly dependent on the timing of sample collection in relation to illness onset and any deficiencies in sampling techniques. If the patient continues to have persistent or worsening symptoms concerning for COVID-19 illness, a repeat NAAT test (PCR, Rapid ID Now, etc.) should be performed, at which time the SARS-CoV-2 virus - if present - may have reached a detectable viral load (usually peaking by the end ofthe first week of symptoms). Tests for IgM and/or IgG Antibodies to SARS-CoV-2 Virus:Testing for IgM and IgG antibodies 1-3 weeks after illness onset will indicate whether the patient has produced ant ibodies to the virus. At this time, it is not known if the production of antibodies - specifically IgG antibodies - indicates whether the patient is immune to future infections with the SARS-CoV-2 virus. Interpretation Result Comments:These interpretation comments are based upon all COVID-19 testing the patient has had at [facility], including molecular NAAT testing (more commonly known as PCR testing and Rapid ID Now testing) and antibody testing. It does not take into account any testing that a patient has had outside of the[facility]. [facility] LABORATORY SERVICESCOVID [id number]-[id number]-7 NAAT (no units) ? ? Date ? Value ? 10/16/2019 ? Positive (A) ? SARS-CoV-2 Rapid ID NOW (no units) ? ? Date ? Value ? 04/21/2020 ? Not Detected ? ? ? 04/17/2020 ? Not Detected ? ? ? 12/16/2019 ? Not Detected ? [facility] SERVICESMethod[facility] HospitalLAB ONLY COVID [id number] 02:49:00COVID DMT InterpretationInterpretation/Recommendations:Molecular NAAT Tests for Active Infection with the SARS-CoV-2 Virus:The patient has currently tested negative for the SARS-CoV-2 virus that causes COVID-19 illness. This most likely indicates that the patient does not have an active infection with the SARS-CoV-2 virus at this time. However, infection is not completely ruled out as the false negative rate for molecular NAAT testing using a nasopharyngeal sample can be up to 30%, mostly dependent on the timing of sample collection in relation to illness onset and any deficiencies in sampling techniques. If the patient continues to have persistent or worsening symptoms concerning for COVID-19 illness, a repeat NAAT test (PCR, Rapid ID Now, etc.) should be performed, at which time the SARS-CoV-2 virus - if present - may have reached a detectable viral load (usually peaking by the end ofthe first week of symptoms). Tests for IgM and/or IgG Antibodies to SARS-CoV-2 Virus:Testing for IgM and IgG antibodies 1-3 weeks after illness onset will indicate whether the patient has produced ant ibodies to the virus. At this time, it is not known if the production of antibodies - specifically IgG antibodies - indicates whether the patient is immune to future infections with the SARS-CoV-2 virus. Interpretation Result Comments:These interpretation comments are based upon all COVID-19 testing the patient has had at [facility], including molecular NAAT testing (more commonly known as PCR testing and Rapid ID Now testing) and antibody testing. It does not take into account any testing that a patient has had outside of the[facility]. [facility] LABORATORY SERVICESCOVID [id number] NAAT (no units) ? ? Date ? Value ? 10/16/2019 ? Positive (A) ? SARS-CoV-2 Rapid ID NOW (no units) ? ? Date ? Value ? 04/21/2020 ? Not Detected ? ? ? 04/17/2020 ? Not Detected ? ? ? 12/16/2019 ? Not Detected ? [facility] SERVICESMethod[facility] HospitalLAB ONLY COVID [id number] 02:49:00COVID DMT InterpretationInterpretation/Recommendations:Molecular NAAT Tests for Active Infection with the SARS-CoV-2 Virus:The patient has currently tested negative for the SARS-CoV-2 virus that causes COVID-19 illness. This most likely indicates that the patient does not have an active infection with the SARS-CoV-2 virus at this time. However, infection is not completely ruled out as the false negative rate for molecular NAAT testing using a nasopharyngeal sample can be up to 30%, mostly dependent on the timing of sample collection in relation to illness onset and any deficiencies in sampling techniques. If the patient continues to have persistent or worsening symptoms concerning for COVID-19 illness, a repeat NAAT test (PCR, Rapid ID Now, etc.) should be performed, at which time the SARS-CoV-2 virus - if present - may have reached a detectable viral load (usually peaking by the end ofthe first week of symptoms). Tests for IgM and/or IgG Antibodies to SARS-CoV-2 Virus:Testing for IgM and IgG antibodies 1-3 weeks after illness onset will indicate whether the patient has produced ant ibodies to the virus. At this time, it is not known if the production of antibodies - specifically IgG antibodies - indicates whether the patient is immune to future infections with the SARS-CoV-2 virus. Interpretation Result Comments:These interpretation comments are based upon all COVID-19 testing the patient has had at [facility], including molecular NAAT testing (more commonly known as PCR testing and Rapid ID Now testing) and antibody testing. It does not take into account any testing that a patient has had outside of the[facility]. [facility] LABORATORY SERVICESCOVID [id number]-[id number]-3 NAAT (no units) ? ? Date ? Value ? 10/16/2019 ? Positive (A) ? SARS-CoV-2 Rapid ID NOW (no units) ? ? Date ? Value ? 04/21/2020 ? Not Detected ? ? ? 04/17/2020 ? Not Detected ? ? ? 12/16/2019 ? Not Detected ? [facility]ORATORY SERVICESUnVal[facility]enLAB ONLY COVID [id number] 02:49:00COVID DMT InterpretationInterpretation/Recommendations:Molecular NAAT Tests for Active Infection with the SARS-CoV-2 Virus:The patient has currently tested negative for the SARS-CoV-2 virus that causes COVID-19 illness. This most likely indicates that the patient does not have an active infection with the SARS-CoV-2 virus at this time. However, infection is not completely ruled out as the false negative rate for molecular NAAT testing using a nasopharyngeal sample can be up to 30%, mostly dependent on the timing of sample collection in relation to illness onset and any deficiencies in sampling techniques. If the patient continues to have persistent or worsening symptoms concerning for COVID-19 illness, a repeat NAAT test (PCR, Rapid ID Now, etc.) should be performed, at which time the SARS-CoV-2 virus - if present - may have reached a detectable viral load (usually peaking by the end ofthe first week of symptoms). Tests for IgM and/or IgG Antibodies to SARS-CoV-2 Virus:Testing for IgM and IgG antibodies 1-3 weeks after illness onset will indicate whether the patient has produced ant ibodies to the virus. At this time, it is not known if the production of antibodies - specifically IgG antibodies - indicates whether the patient is immune to future infections with the SARS-CoV-2 virus. Interpretation Result Comments:These interpretation comments are based upon all COVID-19 testing the patient has had at [facility], including molecular NAAT testing (more commonly known as PCR testing and Rapid ID Now testing) and antibody testing. It does not take into account any testing that a patient has had outside of the[facility]. [facility] LABORATORY SERVICESCOVID [id number]-[id number] NAAT (no units) ? ? Date ? Value ? 10/16/2019 ? Positive (A) ? SARS-CoV-2 Rapid ID NOW (no units) ? ? Date ? Value ? 04/21/2020 ? Not Detected ? ? ? 04/17/2020 ? Not Detected ? ? ? 12/16/2019 ? Not Detected ? [facility]AT[facility] SERVICESUnVal[facility]enLAB ONLY COVID [id number] 02:49:00COVID DMT InterpretationInterpretation/Recommendations:Molecular NAAT Tests for Active Infection with the SARS-CoV-2 Virus:The patient has currently tested negative for the SARS-CoV-2 virus that causes COVID-19 illness. This most likely indicates that the patient does not have an active infection with the SARS-CoV-2 virus at this time. However, infection is not completely ruled out as the false negative rate for molecular NAAT testing using a nasopharyngeal sample can be up to 30%, mostly dependent on the timing of sample collection in relation to illness onset and any deficiencies in sampling techniques. If the patient continues to have persistent or worsening symptoms concerning for COVID-19 illness, a repeat NAAT test (PCR, Rapid ID Now, etc.) should be performed, at which time the SARS-CoV-2 virus - if present - may have reached a detectable viral load (usually peaking by the end ofthe first week of symptoms). Tests for IgM and/or IgG Antibodies to SARS-CoV-2 Virus:Testing for IgM and IgG antibodies 1-3 weeks after illness onset will indicate whether the patient has produced ant ibodies to the virus. At this time, it is not known if the production of antibodies - specifically IgG antibodies - indicates whether the patient is immune to future infections with the SARS-CoV-2 virus. Interpretation Result Comments:These interpretation comments are based upon all COVID-19 testing the patient has had at [facility], including molecular NAAT testing (more commonly known as PCR testing and Rapid ID Now testing) and antibody testing. It does not take into account any testing that a patient has had outside of the[facility]. [facility] LABORATORY SERVICESCOVID [id number]-[id number]-7 NAAT (no units) ? ? Date ? Value ? 10/16/2019 ? Positive (A) ? SARS-CoV-2 Rapid ID NOW (no units) ? ? Date ? Value ? 04/21/2020 ? Not Detected ? ? ? 04/17/2020 ? Not Detected ? ? ? 12/16/2019 ? Not Detected ? [facility]AT[facility] SERVICESUnVal[facility]enLAB ONLY COVID [id number] 02:49:00COVID DMT InterpretationInterpretation/Recommendations:Molecular NAAT Tests for Active Infection with the SARS-CoV-2 Virus:The patient has currently tested negative for the SARS-CoV-2 virus that causes COVID-19 illness. This most likely indicates that the patient does not have an active infection with the SARS-CoV-2 virus at this time. However, infection is not completely ruled out as the false negative rate for molecular NAAT testing using a nasopharyngeal sample can be up to 30%, mostly dependent on the timing of sample collection in relation to illness onset and any deficiencies in sampling techniques. If the patient continues to have persistent or worsening symptoms concerning for COVID-19 illness, a repeat NAAT test (PCR, Rapid ID Now, etc.) should be performed, at which time the SARS-CoV-2 virus - if present - may have reached a detectable viral load (usually peaking by the end ofthe first week of symptoms). Tests for IgM and/or IgG Antibodies to SARS-CoV-2 Virus:Testing for IgM and IgG antibodies 1-3 weeks after illness onset will indicate whether the patient has produced ant ibodies to the virus. At this time, it is not known if the production of antibodies - specifically IgG antibodies - indicates whether the patient is immune to future infections with the SARS-CoV-2 virus. Interpretation Result Comments:These interpretation comments are based upon all COVID-19 testing the patient has had at [facility], including molecular NAAT testing (more commonly known as PCR testing and Rapid ID Now testing) and antibody testing. It does not take into account any testing that a patient has had outside of the[facility]. [facility] LABORATORY SERVICESCOVID KhzplimCORI-EtP-2 NAAT (no units) ? ? Date ? Value ? 10/16/2019 ? Positive (A) ? SARS-CoV-2 Rapid ID NOW (no units) ? ? Date ? Value ? 04/21/2020 ? Not Detected ? ? ? 04/17/2020 ? Not Detected ? ? ? 12/16/2019 ? Not Detected ? [facility] SERVICESMethod[facility] HospitalLAB ONLY COVID [id number] 02:49:00COVID DMT InterpretationInterpretation/Recommendations:Molecular NAAT Tests for Active Infection with the SARS-CoV-2 Virus:The patient has currently tested negative for the SARS-CoV-2 virus that causes COVID-19 illness. This most likely indicates that the patient does not have an active infection with the SARS-CoV-2 virus at this time. However, infection is not completely ruled out as the false negative rate for molecular NAAT testing using a nasopharyngeal sample can be up to 30%, mostly dependent on the timing of sample collection in relation to illness onset and any deficiencies in sampling techniques. If the patient continues to have persistent or worsening symptoms concerning for COVID-19 illness, a repeat NAAT test (PCR, Rapid ID Now, etc.) should be performed, at which time the SARS-CoV-2 virus - if present - may have reached a detectable viral load (usually peaking by the end ofthe first week of symptoms). Tests for IgM and/or IgG Antibodies to SARS-CoV-2 Virus:Testing for IgM and IgG antibodies 1-3 weeks after illness onset will indicate whether the patient has produced ant ibodies to the virus. At this time, it is not known if the production of antibodies - specifically IgG antibodies - indicates whether the patient is immune to future infections with the SARS-CoV-2 virus. Interpretation Result Comments:These interpretation comments are based upon all COVID-19 testing the patient has had at [facility], including molecular NAAT testing (more commonly known as PCR testing and Rapid ID Now testing) and antibody testing. It does not take into account any testing that a patient has had outside of the[facility]. [facility] LABORATORY SERVICESCOVID FrdygzcEJPD-BpC-2 NAAT (no units) ? ? Date ? Value ? 10/16/2019 ? Positive (A) ? SARS-CoV-2 Rapid ID NOW (no units) ? ? Date ? Value ? 04/21/2020 ? Not Detected ? ? ? 04/17/2020 ? Not Detected ? ? ? 12/16/2019 ? Not Detected ? [facility] SERVICESMethod[facility] HospitalLAB ONLY COVID [id number] 02:49:00COVID DMT InterpretationInterpretation/Recommendations:Molecular NAAT Tests for Active Infection with the SARS-CoV-2 Virus:The patient has currently tested negative for the SARS-CoV-2 virus that causes COVID-19 illness. This most likely indicates that the patient does not have an active infection with the SARS-CoV-2 virus at this time. However, infection is not completely ruled out as the false negative rate for molecular NAAT testing using a nasopharyngeal sample can be up to 30%, mostly dependent on the timing of sample collection in relation to illness onset and any deficiencies in sampling techniques. If the patient continues to have persistent or worsening symptoms concerning for COVID-19 illness, a repeat NAAT test (PCR, Rapid ID Now, etc.) should be performed, at which time the SARS-CoV-2 virus - if present - may have reached a detectable viral load (usually peaking by the end ofthe first week of symptoms). Tests for IgM and/or IgG Antibodies to SARS-CoV-2 Virus:Testing for IgM and IgG antibodies 1-3 weeks after illness onset will indicate whether the patient has produced ant ibodies to the virus. At this time, it is not known if the production of antibodies - specifically IgG antibodies - indicates whether the patient is immune to future infections with the SARS-CoV-2 virus. Interpretation Result Comments:These interpretation comments are based upon all COVID-19 testing the patient has had at [facility], including molecular NAAT testing (more commonly known as PCR testing and Rapid ID Now testing) and antibody testing. It does not take into account any testing that a patient has had outside of the[facility]. [facility] LABORATORY SERVICESCOVID [id number]-FkC-4 NAAT (no units) ? ? Date ? Value ? 10/16/2019 ? Positive (A) ? SARS-CoV-2 Rapid ID NOW (no units) ? ? Date ? Value ? 04/21/2020 ? Not Detected ? ? ? 04/17/2020 ? Not Detected ? ? ? 12/16/2019 ? Not Detected ? [facility] SERVICESUnVal[facility]enLAB ONLY COVID [id number] 02:49:00COVID DMT InterpretationInterpretation/Recommendations:Molecular NAAT Tests for Active Infection with the SARS-CoV-2 Virus:The patient has currently tested negative for the SARS-CoV-2 virus that causes COVID-19 illness. This most likely indicates that the patient does not have an active infection with the SARS-CoV-2 virus at this time. However, infection is not completely ruled out as the false negative rate for molecular NAAT testing using a nasopharyngeal sample can be up to 30%, mostly dependent on the timing of sample collection in relation to illness onset and any deficiencies in sampling techniques. If the patient continues to have persistent or worsening symptoms concerning for COVID-19 illness, a repeat NAAT test (PCR, Rapid ID Now, etc.) should be performed, at which time the SARS-CoV-2 virus - if present - may have reached a detectable viral load (usually peaking by the end ofthe first week of symptoms). Tests for IgM and/or IgG Antibodies to SARS-CoV-2 Virus:Testing for IgM and IgG antibodies 1-3 weeks after illness onset will indicate whether the patient has produced ant ibodies to the virus. At this time, it is not known if the production of antibodies - specifically IgG antibodies - indicates whether the patient is immune to future infections with the SARS-CoV-2 virus. Interpretation Result Comments:These interpretation comments are based upon all COVID-19 testing the patient has had at [facility], including molecular NAAT testing (more commonly known as PCR testing and Rapid ID Now testing) and antibody testing. It does not take into account any testing that a patient has had outside of the[facility]. [facility] [facility] LAB[facility]ATORY SERVICESCOVID [id number] NAAT (no units) ? ? Date ? Value ? 10/16/2019 ? Positive (A) ? SARS-CoV-2 Rapid ID NOW (no units) ? ? Date ? Value ? 04/21/2020 ? Not Detected ? ? ? 04/17/2020 ? Not Detected ? ? ? 12/16/2019 ? Not Detected ? [facility] SERVICESUnVal[facility]LAB ONLY COVID [id number] 02:49:00COVID DMT InterpretationInterpretation/Recommendations:Molecular NAAT Tests for Active Infection with the SARS-CoV-2 Virus:The patient has currently tested negative for the SARS-CoV-2 virus that causes COVID-19 illness. This most likely indicates that the patient does not have an active infection with the SARS-CoV-2 virus at this time. However, infection is not completely ruled out as the false negative rate for molecular NAAT testing using a nasopharyngeal sample can be up to 30%, mostly dependent on the timing of sample collection in relation to illness onset and any deficiencies in sampling techniques. If the patient continues to have persistent or worsening symptoms concerning for COVID-19 illness, a repeat NAAT test (PCR, Rapid ID Now, etc.) should be performed, at which time the SARS-CoV-2 virus - if present - may have reached a detectable viral load (usually peaking by the end ofthe first week of symptoms). Tests for IgM and/or IgG Antibodies to SARS-CoV-2 Virus:Testing for IgM and IgG antibodies 1-3 weeks after illness onset will indicate whether the patient has produced ant ibodies to the virus. At this time, it is not known if the production of antibodies - specifically IgG antibodies - indicates whether the patient is immune to future infections with the SARS-CoV-2 virus. Interpretation Result Comments:These interpretation comments are based upon all COVID-19 testing the patient has had at [facility], including molecular NAAT testing (more commonly known as PCR testing and Rapid ID Now testing) and antibody testing. It does not take into account any testing that a patient has had outside of the[facility]. [facility] LABORATORY SERVICESCOVID [id number] NAAT (no units) ? ? Date ? Value ? 10/16/2019 ? Positive (A) ? SARS-CoV-2 Rapid ID NOW (no units) ? ? Date ? Value ? 04/21/2020 ? Not Detected ? ? ? 04/17/2020 ? Not Detected ? ? ? 12/16/2019 ? Not Detected ? [facility]LAB [facility] COVID [id number] 02:49:00COVID DMT InterpretationInterpretation/Recommendations:Molecular NAAT Tests for Active Infection with the SARS-CoV-2 Virus:The patient has currently tested negative for the SARS-CoV-2 virus that causes COVID-19 illness. This most likely indicates that the patient does not have an active infection with the SARS-CoV-2 virus at this time. However, infection is not completely ruled out as the false negative rate for molecular NAAT testing using a nasopharyngeal sample can be up to 30%, mostly dependent on the timing of sample collection in relation to illness onset and any deficiencies in sampling techniques. If the patient continues to have persistent or worsening symptoms concerning for COVID-19 illness, a repeat NAAT test (PCR, Rapid ID Now, etc.) should be performed, at which time the SARS-CoV-2 virus - if present - may have reached a detectable viral load (usually peaking by the end ofthe first week of symptoms). Tests for IgM and/or IgG Antibodies to SARS-CoV-2 Virus:Testing for IgM and IgG antibodies 1-3 weeks after illness onset will indicate whether the patient has produced ant ibodies to the virus. At this time, it is not known if the production of antibodies - specifically IgG antibodies - indicates whether the patient is immune to future infections with the SARS-CoV-2 virus. Interpretation Result Comments:These interpretation comments are based upon all COVID-19 testing the patient has had at [facility], including molecular NAAT testing (more commonly known as PCR testing and Rapid ID Now testing) and antibody testing. It does not take into account any testing that a patient has had outside of the[facility]. [facility] LABORATORY SERVICESCOVID VrtqcaoMBDG-QwV-2 NAAT (no units) ? ? Date ? Value ? 10/16/2019 ? Positive (A) ? SARS-CoV-2 Rapid ID NOW (no units) ? ? Date ? Value ? 04/21/2020 ? Not Detected ? ? ? 04/17/2020 ? Not Detected ? ? ? 12/16/2019 ? Not Detected ? [facility] SERVICESMethod[facility] HospitalLAB ONLY COVID [id number] 02:49:00COVID DMT InterpretationInterpretation/Recommendations:Molecular NAAT Tests for Active Infection with the SARS-CoV-2 Virus:The patient has currently tested negative for the SARS-CoV-2 virus that causes COVID-19 illness. This most likely indicates that the patient does not have an active infection with the SARS-CoV-2 virus at this time. However, infection is not completely ruled out as the false negative rate for molecular NAAT testing using a nasopharyngeal sample can be up to 30%, mostly dependent on the timing of sample collection in relation to illness onset and any deficiencies in sampling techniques. If the patient continues to have persistent or worsening symptoms concerning for COVID-19 illness, a repeat NAAT test (PCR, Rapid ID Now, etc.) should be performed, at which time the SARS-CoV-2 virus - if present - may have reached a detectable viral load (usually peaking by the end ofthe first week of symptoms). Tests for IgM and/or IgG Antibodies to SARS-CoV-2 Virus:Testing for IgM and IgG antibodies 1-3 weeks after illness onset will indicate whether the patient has produced ant ibodies to the virus. At this time, it is not known if the production of antibodies - specifically IgG antibodies - indicates whether the patient is immune to future infections with the SARS-CoV-2 virus. Interpretation Result Comments:These interpretation comments are based upon all COVID-19 testing the patient has had at [facility], including molecular NAAT testing (more commonly known as PCR testing and Rapid ID Now testing) and antibody testing. It does not take into account any testing that a patient has had outside of the[facility]. [facility] LABORATORY SERVICESCOVID [id number]-KkU-1 NAAT (no units) ? ? Date ? Value ? 10/16/2019 ? Positive (A) ? SARS-CoV-2 Rapid ID NOW (no units) ? ? Date ? Value ? 04/21/2020 ? Not Detected ? ? ? 04/17/2020 ? Not Detected ? ? ? 12/16/2019 ? Not Detected ? [facility] LAB[facility] SERVICESMethod[facility] HospitalLAB ONLY COVID [id number] 03:14:00COVID DMT InterpretationInterpretation/Recommendations: Molecular NAAT Tests for Active Infection with the SARS-CoV-2 Virus: This result indicates that the patient has tested negative twice consecutively for the SARS-CoV-2 virus that causes COVID- 19 illness, subsequent to an initial positive test which demonstrated active infection with the SARS-CoV-2 virus. At this time, the patient is likely tohave recovered from the infection, especially if symptoms are decreasing. The patient should be considered infectious and able to transmit the virus within the first 10 days after symptom onset in jllw-ka-yxmzdcal illness and within the first 20 days after symptom onset in critical illness and/or severe immunocompromise. Asymptomatic patients are considered infectious for the first 10 days subsequent to the initial positive test result. If the patient's symptoms are persistent/worsening, a repeat molecular NAAT test (PCR, Rapid ID Now, etc.) is recommended, especially if it has been greater than 3 months since the initial positive test, in which reinfection may be considered. ? Tests for IgM and/or IgG Antibodies to SARS-CoV-2 Virus: Testing for IgM and IgG antibodies 1-3 weeks after illness onset will indicate whether the patient has produced antibodies to the virus. At this time, it is not known if the production of antibodies - specifically IgG antibodies - indicates whether the patient is immune to future infections with the SARS-CoV-2 virus. ? ? Interpretation Result Comments:These interpretation commentsare based upon all COVID-19 testing the patient has had at [facility], including molecular NAAT testing (more commonly known as PCR testing and Rapid ID Now testing) and antibody testing. It does not take into account any testing that a patient has had outside of the [facility] medical record. [facility] LABORATORY SERVICESCOVID MgstjpsGRAD-[id number]-4 NAAT (no units) ? ? Date ? Value ? 10/16/2019 ? Positive (A) ? SARS-CoV-2 Rapid ID NOW (no units) ? ? Date ? Value ? 04/17/2020 ? Not Detected ? ? ? 12/16/2019 ? Not Detected ? [facility] SERVICESMethod[facility] HospitalLAB ONLY COVID [id number] 03:14:00COVID DMT InterpretationInterpretation/Recommendations: Molecular NAAT Tests for Active Infection with the SARS-CoV-2 Virus: This result indicates that the patient has tested negative twice consecutively for the SARS-CoV-2 virus that causes COVID- 19 illness, subsequent to an initial positive test which demonstrated active infection with the SARS-CoV-2 virus. At this time, the patient is likely tohave recovered from the infection, especially if symptoms are decreasing. The patient should be considered infectious and able to transmit the virus within the first 10 days after symptom onset in qiqa-mv-fdnbhzxn illness and within the first 20 days after symptom onset in critical illness and/or severe immunocompromise. Asymptomatic patients are considered infectious for the first 10 days subsequent to the initial positive test result. If the patient's symptoms are persistent/worsening, a repeat molecular NAAT test (PCR, Rapid ID Now, etc.) is recommended, especially if it has been greater than 3 months since the initial positive test, in which reinfection may be considered. ? Tests for IgM and/or IgG Antibodies to SARS-CoV-2 Virus: Testing for IgM and IgG antibodies 1-3 weeks after illness onset will indicate whether the patient has produced antibodies to the virus. At this time, it is not known if the production of antibodies - specifically IgG antibodies - indicates whether the patient is immune to future infections with the SARS-CoV-2 virus. ? ? Interpretation Result Comments:These interpretation commentsare based upon all COVID-19 testing the patient has had at [facility], including molecular NAAT testing (more commonly known as PCR testing and Rapid ID Now testing) and antibody testing. It does not take into account any testing that a patient has had outside of the [facility] medical record. [facility] LABORATORY SERVICESCOVID [id number]-[id number]-8 NAAT (no units) ? ? Date ? Value ? 10/16/2019 ? Positive (A) ? SARS-CoV-2 Rapid ID NOW (no units) ? ? Date ? Value ? 04/17/2020 ? Not Detected ? ? ? 12/16/2019 ? Not Detected ? [facility] SERVICESMethod[facility] HospitalLAB ONLY COVID [id number] 03:14:00COVID DMT InterpretationInterpretation/Recommendations: Molecular NAAT Tests for Active Infection with the SARS-CoV-2 Virus: This result indicates that the patient has tested negative twice consecutively for the SARS-CoV-2 virus that causes COVID- 19 illness, subsequent to an initial positive test which demonstrated active infection with the SARS-CoV-2 virus. At this time, the patient is likely tohave recovered from the infection, especially if symptoms are decreasing. The patient should be considered infectious and able to transmit the virus within the first 10 days after symptom onset in vcbl-sm-lprtjlfr illness and within the first 20 days after symptom onset in critical illness and/or severe immunocompromise. Asymptomatic patients are considered infectious for the first 10 days subsequent to the initial positive test result. If the patient's symptoms are persistent/worsening, a repeat molecular NAAT test (PCR, Rapid ID Now, etc.) is recommended, especially if it has been greater than 3 months since the initial positive test, in which reinfection may be considered. ? Tests for IgM and/or IgG Antibodies to SARS-CoV-2 Virus: Testing for IgM and IgG antibodies 1-3 weeks after illness onset will indicate whether the patient has produced antibodies to the virus. At this time, it is not known if the production of antibodies - specifically IgG antibodies - indicates whether the patient is immune to future infections with the SARS-CoV-2 virus. ? ? Interpretation Result Comments:These interpretation commentsare based upon all COVID-19 testing the patient has had at [facility], including molecular NAAT testing (more commonly known as PCR testing and Rapid ID Now testing) and antibody testing. It does not take into account any testing that a patient has had outside of the [facility] medical record. [facility] LABORATORY SERVICESCOVID [id number]-NaX-4 NAAT (no units) ? ? Date ? Value ? 10/16/2019 ? Positive (A) ? SARS-CoV-2 Rapid ID NOW (no units) ? ? Date ? Value ? 04/17/2020 ? Not Detected ? ? ? 12/16/2019 ? Not Detected ? [facility] SERVICESUnVal[facility]LAB ONLY COVID [id number] 03:14:00COVID DMT InterpretationInterpretation/Recommendations: Molecular NAAT Tests for Active Infection with the SARS-CoV-2 Virus: This result indicates that the patient has tested negative twice consecutively for the SARS-CoV-2 virus that causes COVID- 19 illness, subsequent to an initial positive test which demonstrated active infection with the SARS-CoV-2 virus. At this time, the patient is likely tohave recovered from the infection, especially if symptoms are decreasing. The patient should be considered infectious and able to transmit the virus within the first 10 days after symptom onset in kcra-ag-zkmletug illness and within the first 20 days after symptom onset in critical illness and/or severe immunocompromise. Asymptomatic patients are considered infectious for the first 10 days subsequent to the initial positive test result. If the patient's symptoms are persistent/worsening, a repeat molecular NAAT test (PCR, Rapid ID Now, etc.) is recommended, especially if it has been greater than 3 months since the initial positive test, in which reinfection may be considered. ? Tests for IgM and/or IgG Antibodies to SARS-CoV-2 Virus: Testing for IgM and IgG antibodies 1-3 weeks after illness onset will indicate whether the patient has produced antibodies to the virus. At this time, it is not known if the production of antibodies - specifically IgG antibodies - indicates whether the patient is immune to future infections with the SARS-CoV-2 virus. ? ? Interpretation Result Comments:These interpretation commentsare based upon all COVID-19 testing the patient has had at [facility], including molecular NAAT testing (more commonly known as PCR testing and Rapid ID Now testing) and antibody testing. It does not take into account any testing that a patient has had outside of the [facility] medical record. [facility] LABORATORY SERVICESCOVID [id number] NAAT (no units) ? ? Date ? Value ? 10/16/2019 ? Positive (A) ? SARS-CoV-2 Rapid ID NOW (no units) ? ? Date ? Value ? 04/17/2020 ? Not Detected ? ? ? 12/16/2019 ? Not Detected ? [facility] LABORAT[facility] SERVICESMethod[facility] and [facility] HospitalCT ABDOMEN PELVIS W [id number] 05:14:25Peripherally enhancing 2.9 x 1.3 cm umbilical collection, previously 3.7 x2.2 cm. This collection is predominantly collapsed with only trace amountof fluid remaining and mild surrounding stranding. No acute findings in the abdomen or pelvis. Preliminary Report Dictated by Resident: Earnest Garcia MD., have reviewed this study and agree with theabove report.CT ABDOMEN AND PELVIS WITH CONTRAST HISTORY: Abd pain, acute, generalized COMPARISON: None. TECHNIQUE: Contiguous axial imaging from the level of the lung basesthrough the proximal thighs was performed after the administration ofiodinated intravenous contrast. Coronal and sagittal reconstructions wereobtained. FINDINGS: LOWER THORAX: Mild bibasilar subsegmental atelectasis. LIVER: Liver measures 18 cm in craniocaudal dimension midclavicular line.No focal hepatic lesions identified. Normal hepatic surface contour. GALLBLADDER: Contracted gallbladder without radiopaque cholelithiasis. Nobiliary ductal dilatation. SPLEEN: No splenomegaly. PANCREAS: No ductal dilation or masses. ADRENAL GLANDS: No adrenal nodules. KIDNEYS: No hydronephrosis, stones, or masses. PERITONEUM AND RETROPERITONEUM: No free air or fluid. A peripherallyenhancing, hypodense collection within the umbilicus measuringapproximately 2.9 x 1.3 cm, previously about 3.7 x 3.2 cm. Mild surroundingsubcutaneous stranding. LYMPH NODES: No lymphadenopathy. GI TRACT: No dilation or abnormal wall thickening. Normal appendix. Mildlypatulous distal esophagus. PELVIS: Urinary bladder is normal for the degree of distention. VESSELS: Patent abdominal vasculature. BONES AND SOFT TISSUES: No aggressive or suspicious osseous lesions. [facility], Radiant Results Inft User - 04/21/2020 11:15 PM CSTCT ABDOMEN AND PELVIS WITH CONTRASTHISTORY: Abd pain, acute, generalized COMPARISON: None.TECHNIQUE: Contiguous axial imaging from the level of the lung basesthrough the proximal thighs was performed after the administration ofiodinated intravenous contrast.Coronal and sagittal reconstructions wereobtained.FINDINGS:LOWER THORAX: Mild bibasilar subsegmental atelectasis.LIVER: Liver measures 18 cm in craniocaudal dimension midclavicular line.No focal hepatic lesions identified. Normal hepatic surface contour.GALLBLADDER: Contracted gallbladder without radiopaque cholelithiasis. Nobiliary ductal dilatation.SPLEEN: No splenomegaly.PANCREAS: No ductal dilation or masses.ADRENAL GLANDS: No adrenal nodules.KIDNEYS: No hydronephrosis, stones, or masses.PERITONEUM AND RETROPERITONEUM: No free air or fluid. A peripherallyenhancing, hypodense collection within the umbilicus measuringapproximately 2.9 x 1.3 cm, previously about 3.7 x 3.2 cm. Mild surroundingsubcutaneous stranding.LYMPH NODES: No lymphadenopathy.GI TRACT: No dilation or abnormal wall thickening. Normal appendix. Mildlypatulous distal esophagus.PELVIS: Urinary bladder is normal for the degree of distention.VESSELS: Patent abdominal vasculature.BONES AND SOFT TISSUES: No aggressive or suspicious osseous lesions.IMPRESSIONPeripherally enhancing 2.9 x 1.3 cm umbilical collection, previously 3.7 x2.2 cm. This collection is predominantly collapsed with only trace amountof fluid remaining and mild surrounding stranding.No acute findings in the abdomen or pelvis.Preliminary Report Dictated by Resident: Earnest Juares MD., have reviewed this study and agree with theabove report.[facility]CT [facility] PEL[facility] W [id number] 05:14:25Peripherally enhancing 2.9 x 1.3 cm umbilical collection, previously 3.7 x2.2 cm. This collection is predominantly collapsed with only trace amountof fluid remaining and mild surrounding stranding. No acute findings in the abdomen or pelvis. Preliminary Report Dictated by Resident: Earnest Garcia MD., have reviewed this study and agree with theabove report.CT ABDOMEN AND PELVIS WITH CONTRAST HISTORY: Abd pain, acute, generalized COMPARISON: None. TECHNIQUE: Contiguous axial imaging from the level of the lung basesthrough the proximal thighs was performed after the administration ofiodinated intravenous contrast. Coronal and sagittal reconstructions wereobtained. FINDINGS: LOWER THORAX: Mild bibasilar subsegmental atelectasis. LIVER: Liver measures 18 cm in craniocaudal dimension midclavicular line.No focal hepatic lesions identified. Normal hepatic surface contour. GALLBLADDER: Contracted gallbladder without radiopaque cholelithiasis. Nobiliary ductal dilatation. SPLEEN: No splenomegaly. PANCREAS: No ductal dilation or masses. ADRENAL GLANDS: No adrenal nodules. KIDNEYS: No hydronephrosis, stones, or masses. PERITONEUM AND RETROPERITONEUM: No free air or fluid. A peripherallyenhancing, hypodense collection within the umbilicus measuringapproximately 2.9 x 1.3 cm, previously about 3.7 x 3.2 cm. Mild surroundingsubcutaneous stranding. LYMPH NODES: No lymphadenopathy. GI TRACT: No dilation or abnormal wall thickening. Normal appendix. Mildlypatulous distal esophagus. PELVIS: Urinary bladder is normal for the degree of distention. VESSELS: Patent abdominal vasculature. BONES AND SOFT TISSUES: No aggressive or suspicious osseous lesions. [facility], Radiant Results Inft User - 04/21/2020 11:15 PM CSTCT ABDOMEN AND PELVIS WITH CONTRASTHISTORY: Abd pain, acute, generalized COMPARISON: None.TECHNIQUE: Contiguous axial imaging from the level of the lung basesthrough the proximal thighs was performed after the administration ofiodinated intravenous contrast.Coronal and sagittal reconstructions wereobtained.FINDINGS:LOWER THORAX: Mild bibasilar subsegmental atelectasis.LIVER: Liver measures 18 cm in craniocaudal dimension midclavicular line.No focal hepatic lesions identified. Normal hepatic surface contour.GALLBLADDER: Contracted gallbladder without radiopaque cholelithiasis. Nobiliary ductal dilatation.SPLEEN: No splenomegaly.PANCREAS: No ductal dilation or masses.ADRENAL GLANDS: No adrenal nodules.KIDNEYS: No hydronephrosis, stones, or masses.PERITONEUM AND RETROPERITONEUM: No free air or fluid. A peripherallyenhancing, hypodense collection within the umbilicus measuringapproximately 2.9 x 1.3 cm, previously about 3.7 x 3.2 cm. Mild surroundingsubcutaneous stranding.LYMPH NODES: No lymphadenopathy.GI TRACT: No dilation or abnormal wall thickening. Normal appendix. Mildlypatulous distal esophagus.PELVIS: Urinary bladder is normal for the degree of distention.VESSELS: Patent abdominal vasculature.BONES AND SOFT TISSUES: No aggressive or suspicious osseous lesions.IMPRESSIONPeripherally enhancing 2.9 x 1.3 cm umbilical collection, previously 3.7 x2.2 cm. This collection is predominantly collapsed with only trace amountof fluid remaining and mild surrounding stranding.No acute findings in the abdomen or pelvis.Preliminary Report Dictated by Resident: Earnest Juares MD., have reviewed this study and agree with theabove report.[facility] W [id number] 05:14:25Peripherally enhancing 2.9 x 1.3 cm umbilical collection, previously 3.7 x2.2 cm. This collection is predominantly collapsed with only trace amountof fluid remaining and mild surrounding stranding. No acute findings in the abdomen or pelvis. Preliminary Report Dictated by Resident: Earnest Garcia MD., have reviewed this study and agree with theabove report.CT ABDOMEN AND PELVIS WITH CONTRAST HISTORY: Abd pain, acute, generalized COMPARISON: None. TECHNIQUE: Contiguous axial imaging from the level of the lung basesthrough the proximal thighs was performed after the administration ofiodinated intravenous contrast. Coronal and sagittal reconstructions wereobtained. FINDINGS: LOWER THORAX: Mild bibasilar subsegmental atelectasis. LIVER: Liver measures 18 cm in craniocaudal dimension midclavicular line.No focal hepatic lesions identified. Normal hepatic surface contour. GALLBLADDER: Contracted gallbladder without radiopaque cholelithiasis. Nobiliary ductal dilatation. SPLEEN: No splenomegaly. PANCREAS: No ductal dilation or masses. ADRENAL GLANDS: No adrenal nodules. KIDNEYS: No hydronephrosis, stones, or masses. PERITONEUM AND RETROPERITONEUM: No free air or fluid. A peripherallyenhancing, hypodense collection within the umbilicus measuringapproximately 2.9 x 1.3 cm, previously about 3.7 x 3.2 cm. Mild surroundingsubcutaneous stranding. LYMPH NODES: No lymphadenopathy. GI TRACT: No dilation or abnormal wall thickening. Normal appendix. Mildlypatulous distal esophagus. PELVIS: Urinary bladder is normal for the degree of distention. VESSELS: Patent abdominal vasculature. BONES AND SOFT TISSUES: No aggressive or suspicious osseous lesions. [facility], Radiant Results Inft User - 04/21/2020 11:15 PM CSTCT ABDOMEN AND PELVIS WITH CONTRASTHISTORY: Abd pain, acute, generalized COMPARISON: None.TECHNIQUE: Contiguous axial imaging from the level of the lung basesthrough the proximal thighs was performed after the administration ofiodinated intravenous contrast.Coronal and sagittal reconstructions wereobtained.FINDINGS:LOWER THORAX: Mild bibasilar subsegmental atelectasis.LIVER: Liver measures 18 cm in craniocaudal dimension midclavicular line.No focal hepatic lesions identified. Normal hepatic surface contour.GALLBLADDER: Contracted gallbladder without radiopaque cholelithiasis. Nobiliary ductal dilatation.SPLEEN: No splenomegaly.PANCREAS: No ductal dilation or masses.ADRENAL GLANDS: No adrenal nodules.KIDNEYS: No hydronephrosis, stones, or masses.PERITONEUM AND RETROPERITONEUM: No free air or fluid. A peripherallyenhancing, hypodense collection within the umbilicus measuringapproximately 2.9 x 1.3 cm, previously about 3.7 x 3.2 cm. Mild surroundingsubcutaneous stranding.LYMPH NODES: No lymphadenopathy.GI TRACT: No dilation or abnormal wall thickening. Normal appendix. Mildlypatulous distal esophagus.PELVIS: Urinary bladder is normal for the degree of distention.VESSELS: Patent abdominal vasculature.BONES AND SOFT TISSUES: No aggressive or suspicious osseous lesions.IMPRESSIONPeripherally enhancing 2.9 x 1.3 cm umbilical collection, previously 3.7 x2.2 cm. This collection is predominantly collapsed with only trace amountof fluid remaining and mild surrounding stranding.No acute findings in the abdomen or pelvis.Preliminary Report Dictated by Resident: Earnest Juares MD., have reviewed this study and agree with theabove report.[facility] [id number] 05:14:25Peripherally enhancing 2.9 x 1.3 cm umbilical collection, previously 3.7 x2.2 cm. This collection is predominantly collapsed with only trace amountof fluid remaining and mild surrounding stranding. No acute findings in the abdomen or pelvis. Preliminary Report Dictated by Resident: Earnest Garcia MD., have reviewed this study and agree with theabove report.CT ABDOMEN AND PELVIS WITH CONTRAST HISTORY: Abd pain, acute, generalized COMPARISON: None. TECHNIQUE: Contiguous axial imaging from the level of the lung basesthrough the proximal thighs was performed after the administration ofiodinated intravenous contrast. Coronal and sagittal reconstructions wereobtained. FINDINGS: LOWER THORAX: Mild bibasilar subsegmental atelectasis. LIVER: Liver measures 18 cm in craniocaudal dimension midclavicular line.No focal hepatic lesions identified. Normal hepatic surface contour. GALLBLADDER: Contracted gallbladder without radiopaque cholelithiasis. Nobiliary ductal dilatation. SPLEEN: No splenomegaly. PANCREAS: No ductal dilation or masses. ADRENAL GLANDS: No adrenal nodules. KIDNEYS: No hydronephrosis, stones, or masses. PERITONEUM AND RETROPERITONEUM: No free air or fluid. A peripherallyenhancing, hypodense collection within the umbilicus measuringapproximately 2.9 x 1.3 cm, previously about 3.7 x 3.2 cm. Mild surroundingsubcutaneous stranding. LYMPH NODES: No lymphadenopathy. GI TRACT: No dilation or abnormal wall thickening. Normal appendix. Mildlypatulous distal esophagus. PELVIS: Urinary bladder is normal for the degree of distention. VESSELS: Patent abdominal vasculature. BONES AND SOFT TISSUES: No aggressive or suspicious osseous lesions. [facility], Radiant Results Inft User - 04/21/2020 11:15 PM CSTCT ABDOMEN AND PELVIS WITH CONTRASTHISTORY: Abd pain, acute, generalized COMPARISON: None.TECHNIQUE: Contiguous axial imaging from the level of the lung basesthrough the proximal thighs was performed after the administration ofiodinated intravenous contrast.Coronal and sagittal reconstructions wereobtained.FINDINGS:LOWER THORAX: Mild bibasilar subsegmental atelectasis.LIVER: Liver measures 18 cm in craniocaudal dimension midclavicular line.No focal hepatic lesions identified. Normal hepatic surface contour.GALLBLADDER: Contracted gallbladder without radiopaque cholelithiasis. Nobiliary ductal dilatation.SPLEEN: No splenomegaly.PANCREAS: No ductal dilation or masses.ADRENAL GLANDS: No adrenal nodules.KIDNEYS: No hydronephrosis, stones, or masses.PERITONEUM AND RETROPERITONEUM: No free air or fluid. A peripherallyenhancing, hypodense collection within the umbilicus measuringapproximately 2.9 x 1.3 cm, previously about 3.7 x 3.2 cm. Mild surroundingsubcutaneous stranding.LYMPH NODES: No lymphadenopathy.GI TRACT: No dilation or abnormal wall thickening. Normal appendix. Mildlypatulous distal esophagus.PELVIS: Urinary bladder is normal for the degree of distention.VESSELS: Patent abdominal vasculature.BONES AND SOFT TISSUES: No aggressive or suspicious osseous lesions.IMPRESSIONPeripherally enhancing 2.9 x 1.3 cm umbilical collection, previously 3.7 x2.2 cm. This collection is predominantly collapsed with only trace amountof fluid remaining and mild surrounding stranding.No acute findings in the abdomen or pelvis.Preliminary Report Dictated by Resident: Earnest Juares MD., have reviewed this study and agree with theabove report.[facility] [id number] 05:14:25Peripherally enhancing 2.9 x 1.3 cm umbilical collection, previously 3.7 x2.2 cm. This collection is predominantly collapsed with only trace amountof fluid remaining and mild surrounding stranding. No acute findings in the abdomen or pelvis. Preliminary Report Dictated by Resident: Earnest Garcia MD., have reviewed this study and agree with theabove report.CT ABDOMEN AND PELVIS WITH CONTRAST HISTORY: Abd pain, acute, generalized COMPARISON: None. TECHNIQUE: Contiguous axial imaging from the level of the lung basesthrough the proximal thighs was performed after the administration ofiodinated intravenous contrast. Coronal and sagittal reconstructions wereobtained. FINDINGS: LOWER THORAX: Mild bibasilar subsegmental atelectasis. LIVER: Liver measures 18 cm in craniocaudal dimension midclavicular line.No focal hepatic lesions identified. Normal hepatic surface contour. GALLBLADDER: Contracted gallbladder without radiopaque cholelithiasis. Nobiliary ductal dilatation. SPLEEN: No splenomegaly. PANCREAS: No ductal dilation or masses. ADRENAL GLANDS: No adrenal nodules. KIDNEYS: No hydronephrosis, stones, or masses. PERITONEUM AND RETROPERITONEUM: No free air or fluid. A peripherallyenhancing, hypodense collection within the umbilicus measuringapproximately 2.9 x 1.3 cm, previously about 3.7 x 3.2 cm. Mild surroundingsubcutaneous stranding. LYMPH NODES: No lymphadenopathy. GI TRACT: No dilation or abnormal wall thickening. Normal appendix. Mildlypatulous distal esophagus. PELVIS: Urinary bladder is normal for the degree of distention. VESSELS: Patent abdominal vasculature. BONES AND SOFT TISSUES: No aggressive or suspicious osseous lesions. [facility], Radiant Results Inft User - 04/21/2020 11:15 PM CSTCT ABDOMEN AND PELVIS WITH CONTRASTHISTORY: Abd pain, acute, generalized COMPARISON: None.TECHNIQUE: Contiguous axial imaging from the level of the lung basesthrough the proximal thighs was performed after the administration ofiodinated intravenous contrast.Coronal and sagittal reconstructions wereobtained.FINDINGS:LOWER THORAX: Mild bibasilar subsegmental atelectasis.LIVER: Liver measures 18 cm in craniocaudal dimension midclavicular line.No focal hepatic lesions identified. Normal hepatic surface contour.GALLBLADDER: Contracted gallbladder without radiopaque cholelithiasis. Nobiliary ductal dilatation.SPLEEN: No splenomegaly.PANCREAS: No ductal dilation or masses.ADRENAL GLANDS: No adrenal nodules.KIDNEYS: No hydronephrosis, stones, or masses.PERITONEUM AND RETROPERITONEUM: No free air or fluid. A peripherallyenhancing, hypodense collection within the umbilicus measuringapproximately 2.9 x 1.3 cm, previously about 3.7 x 3.2 cm. Mild surroundingsubcutaneous stranding.LYMPH NODES: No lymphadenopathy.GI TRACT: No dilation or abnormal wall thickening. Normal appendix. Mildlypatulous distal esophagus.PELVIS: Urinary bladder is normal for the degree of distention.VESSELS: Patent abdominal vasculature.BONES AND SOFT TISSUES: No aggressive or suspicious osseous lesions.IMPRESSIONPeripherally enhancing 2.9 x 1.3 cm umbilical collection, previously 3.7 x2.2 cm. This collection is predominantly collapsed with only trace amountof fluid remaining and mild surrounding stranding.No acute findings in the abdomen or pelvis.Preliminary Report Dictated by Resident: Earnest Juares MD., have reviewed this study and agree with theabove report.[facility] [id number] 05:14:25Peripherally enhancing 2.9 x 1.3 cm umbilical collection, previously 3.7 x2.2 cm. This collection is predominantly collapsed with only trace amountof fluid remaining and mild surrounding stranding. No acute findings in the abdomen or pelvis. Preliminary Report Dictated by Resident: Earnest Garcia MD., have reviewed this study and agree with theabove report.CT ABDOMEN AND PELVIS WITH CONTRAST HISTORY: Abd pain, acute, generalized COMPARISON: None. TECHNIQUE: Contiguous axial imaging from the level of the lung basesthrough the proximal thighs was performed after the administration ofiodinated intravenous contrast. Coronal and sagittal reconstructions wereobtained. FINDINGS: LOWER THORAX: Mild bibasilar subsegmental atelectasis. LIVER: Liver measures 18 cm in craniocaudal dimension midclavicular line.No focal hepatic lesions identified. Normal hepatic surface contour. GALLBLADDER: Contracted gallbladder without radiopaque cholelithiasis. Nobiliary ductal dilatation. SPLEEN: No splenomegaly. PANCREAS: No ductal dilation or masses. ADRENAL GLANDS: No adrenal nodules. KIDNEYS: No hydronephrosis, stones, or masses. PERITONEUM AND RETROPERITONEUM: No free air or fluid. A peripherallyenhancing, hypodense collection within the umbilicus measuringapproximately 2.9 x 1.3 cm, previously about 3.7 x 3.2 cm. Mild surroundingsubcutaneous stranding. LYMPH NODES: No lymphadenopathy. GI TRACT: No dilation or abnormal wall thickening. Normal appendix. Mildlypatulous distal esophagus. PELVIS: Urinary bladder is normal for the degree of distention. VESSELS: Patent abdominal vasculature. BONES AND SOFT TISSUES: No aggressive or suspicious osseous lesions. [facility], Radiant Results Inft User - 04/21/2020 11:15 PM CSTCT ABDOMEN AND PELVIS WITH CONTRASTHISTORY: Abd pain, acute, generalized COMPARISON: None.TECHNIQUE: Contiguous axial imaging from the level of the lung basesthrough the proximal thighs was performed after the administration ofiodinated intravenous contrast.Coronal and sagittal reconstructions wereobtained.FINDINGS:LOWER THORAX: Mild bibasilar subsegmental atelectasis.LIVER: Liver measures 18 cm in craniocaudal dimension midclavicular line.No focal hepatic lesions identified. Normal hepatic surface contour.GALLBLADDER: Contracted gallbladder without radiopaque cholelithiasis. Nobiliary ductal dilatation.SPLEEN: No splenomegaly.PANCREAS: No ductal dilation or masses.ADRENAL GLANDS: No adrenal nodules.KIDNEYS: No hydronephrosis, stones, or masses.PERITONEUM AND RETROPERITONEUM: No free air or fluid. A peripherallyenhancing, hypodense collection within the umbilicus measuringapproximately 2.9 x 1.3 cm, previously about 3.7 x 3.2 cm. Mild surroundingsubcutaneous stranding.LYMPH NODES: No lymphadenopathy.GI TRACT: No dilation or abnormal wall thickening. Normal appendix. Mildlypatulous distal esophagus.PELVIS: Urinary bladder is normal for the degree of distention.VESSELS: Patent abdominal vasculature.BONES AND SOFT TISSUES: No aggressive or suspicious osseous lesions.IMPRESSIONPeripherally enhancing 2.9 x 1.3 cm umbilical collection, previously 3.7 x2.2 cm. This collection is predominantly collapsed with only trace amountof fluid remaining and mild surrounding stranding.No acute findings in the abdomen or pelvis.Preliminary Report Dictated by Resident: Earnest Juares MD., have reviewed this study and agree with theabove report.[facility] [id number] 05:14:25Peripherally enhancing 2.9 x 1.3 cm umbilical collection, previously 3.7 x2.2 cm. This collection is predominantly collapsed with only trace amountof fluid remaining and mild surrounding stranding. No acute findings in the abdomen or pelvis. Preliminary Report Dictated by Resident: Earnest Garcia MD., have reviewed this study and agree with theabove report.CT ABDOMEN AND PELVIS WITH CONTRAST HISTORY: Abd pain, acute, generalized COMPARISON: None. TECHNIQUE: Contiguous axial imaging from the level of the lung basesthrough the proximal thighs was performed after the administration ofiodinated intravenous contrast. Coronal and sagittal reconstructions wereobtained. FINDINGS: LOWER THORAX: Mild bibasilar subsegmental atelectasis. LIVER: Liver measures 18 cm in craniocaudal dimension midclavicular line.No focal hepatic lesions identified. Normal hepatic surface contour. GALLBLADDER: Contracted gallbladder without radiopaque cholelithiasis. Nobiliary ductal dilatation. SPLEEN: No splenomegaly. PANCREAS: No ductal dilation or masses. ADRENAL GLANDS: No adrenal nodules. KIDNEYS: No hydronephrosis, stones, or masses. PERITONEUM AND RETROPERITONEUM: No free air or fluid. A peripherallyenhancing, hypodense collection within the umbilicus measuringapproximately 2.9 x 1.3 cm, previously about 3.7 x 3.2 cm. Mild surroundingsubcutaneous stranding. LYMPH NODES: No lymphadenopathy. GI TRACT: No dilation or abnormal wall thickening. Normal appendix. Mildlypatulous distal esophagus. PELVIS: Urinary bladder is normal for the degree of distention. VESSELS: Patent abdominal vasculature. BONES AND SOFT TISSUES: No aggressive or suspicious osseous lesions. [facility], Radiant Results Inft User - 04/21/2020 11:15 PM CSTCT ABDOMEN AND PELVIS WITH CONTRASTHISTORY: Abd pain, acute, generalized COMPARISON: None.TECHNIQUE: Contiguous axial imaging from the level of the lung basesthrough the proximal thighs was performed after the administration ofiodinated intravenous contrast.Coronal and sagittal reconstructions wereobtained.FINDINGS:LOWER THORAX: Mild bibasilar subsegmental atelectasis.LIVER: Liver measures 18 cm in craniocaudal dimension midclavicular line.No focal hepatic lesions identified. Normal hepatic surface contour.GALLBLADDER: Contracted gallbladder without radiopaque cholelithiasis. Nobiliary ductal dilatation.SPLEEN: No splenomegaly.PANCREAS: No ductal dilation or masses.ADRENAL GLANDS: No adrenal nodules.KIDNEYS: No hydronephrosis, stones, or masses.PERITONEUM AND RETROPERITONEUM: No free air or fluid. A peripherallyenhancing, hypodense collection within the umbilicus measuringapproximately 2.9 x 1.3 cm, previously about 3.7 x 3.2 cm. Mild surroundingsubcutaneous stranding.LYMPH NODES: No lymphadenopathy.GI TRACT: No dilation or abnormal wall thickening. Normal appendix. Mildlypatulous distal esophagus.PELVIS: Urinary bladder is normal for the degree of distention.VESSELS: Patent abdominal vasculature.BONES AND SOFT TISSUES: No aggressive or suspicious osseous lesions.IMPRESSIONPeripherally enhancing 2.9 x 1.3 cm umbilical collection, previously 3.7 x2.2 cm. This collection is predominantly collapsed with only trace amountof fluid remaining and mild surrounding stranding.No acute findings in the abdomen or pelvis.Preliminary Report Dictated by Resident: Earnest Juares MD., have reviewed this study and agree with theabove report.[facility] [id number] 05:14:25Peripherally enhancing 2.9 x 1.3 cm umbilical collection, previously 3.7 x2.2 cm. This collection is predominantly collapsed with only trace amountof fluid remaining and mild surrounding stranding. No acute findings in the abdomen or pelvis. Preliminary Report Dictated by Resident: Earnest Garcia MD., have reviewed this study and agree with theabove report.CT ABDOMEN AND PELVIS WITH CONTRAST HISTORY: Abd pain, acute, generalized COMPARISON: None. TECHNIQUE: Contiguous axial imaging from the level of the lung basesthrough the proximal thighs was performed after the administration ofiodinated intravenous contrast. Coronal and sagittal reconstructions wereobtained. FINDINGS: LOWER THORAX: Mild bibasilar subsegmental atelectasis. LIVER: Liver measures 18 cm in craniocaudal dimension midclavicular line.No focal hepatic lesions identified. Normal hepatic surface contour. GALLBLADDER: Contracted gallbladder without radiopaque cholelithiasis. Nobiliary ductal dilatation. SPLEEN: No splenomegaly. PANCREAS: No ductal dilation or masses. ADRENAL GLANDS: No adrenal nodules. KIDNEYS: No hydronephrosis, stones, or masses. PERITONEUM AND RETROPERITONEUM: No free air or fluid. A peripherallyenhancing, hypodense collection within the umbilicus measuringapproximately 2.9 x 1.3 cm, previously about 3.7 x 3.2 cm. Mild surroundingsubcutaneous stranding. LYMPH NODES: No lymphadenopathy. GI TRACT: No dilation or abnormal wall thickening. Normal appendix. Mildlypatulous distal esophagus. PELVIS: Urinary bladder is normal for the degree of distention. VESSELS: Patent abdominal vasculature. BONES AND SOFT TISSUES: No aggressive or suspicious osseous lesions. [facility], Radiant Results Inft User - 04/21/2020 11:15 PM CSTCT ABDOMEN AND PELVIS WITH CONTRASTHISTORY: Abd pain, acute, generalized COMPARISON: None.TECHNIQUE: Contiguous axial imaging from the level of the lung basesthrough the proximal thighs was performed after the administration ofiodinated intravenous contrast.Coronal and sagittal reconstructions wereobtained.FINDINGS:LOWER THORAX: Mild bibasilar subsegmental atelectasis.LIVER: Liver measures 18 cm in craniocaudal dimension midclavicular line.No focal hepatic lesions identified. Normal hepatic surface contour.GALLBLADDER: Contracted gallbladder without radiopaque cholelithiasis. Nobiliary ductal dilatation.SPLEEN: No splenomegaly.PANCREAS: No ductal dilation or masses.ADRENAL GLANDS: No adrenal nodules.KIDNEYS: No hydronephrosis, stones, or masses.PERITONEUM AND RETROPERITONEUM: No free air or fluid. A peripherallyenhancing, hypodense collection within the umbilicus measuringapproximately 2.9 x 1.3 cm, previously about 3.7 x 3.2 cm. Mild surroundingsubcutaneous stranding.LYMPH NODES: No lymphadenopathy.GI TRACT: No dilation or abnormal wall thickening. Normal appendix. Mildlypatulous distal esophagus.PELVIS: Urinary bladder is normal for the degree of distention.VESSELS: Patent abdominal vasculature.BONES AND SOFT TISSUES: No aggressive or suspicious osseous lesions.IMPRESSIONPeripherally enhancing 2.9 x 1.3 cm umbilical collection, previously 3.7 x2.2 cm. This collection is predominantly collapsed with only trace amountof fluid remaining and mild surrounding stranding.No acute findings in the abdomen or pelvis.Preliminary Report Dictated by Resident: Earnest Juares MD., have reviewed this study and agree with theabove report.[facility] [id number] 05:14:25Peripherally enhancing 2.9 x 1.3 cm umbilical collection, previously 3.7 x2.2 cm. This collection is predominantly collapsed with only trace amountof fluid remaining and mild surrounding stranding. No acute findings in the abdomen or pelvis. Preliminary Report Dictated by Resident: Earnest Garcia MD., have reviewed this study and agree with theabove report.CT ABDOMEN AND PELVIS WITH CONTRAST HISTORY: Abd pain, acute, generalized COMPARISON: None. TECHNIQUE: Contiguous axial imaging from the level of the lung basesthrough the proximal thighs was performed after the administration ofiodinated intravenous contrast. Coronal and sagittal reconstructions wereobtained. FINDINGS: LOWER THORAX: Mild bibasilar subsegmental atelectasis. LIVER: Liver measures 18 cm in craniocaudal dimension midclavicular line.No focal hepatic lesions identified. Normal hepatic surface contour. GALLBLADDER: Contracted gallbladder without radiopaque cholelithiasis. Nobiliary ductal dilatation. SPLEEN: No splenomegaly. PANCREAS: No ductal dilation or masses. ADRENAL GLANDS: No adrenal nodules. KIDNEYS: No hydronephrosis, stones, or masses. PERITONEUM AND RETROPERITONEUM: No free air or fluid. A peripherallyenhancing, hypodense collection within the umbilicus measuringapproximately 2.9 x 1.3 cm, previously about 3.7 x 3.2 cm. Mild surroundingsubcutaneous stranding. LYMPH NODES: No lymphadenopathy. GI TRACT: No dilation or abnormal wall thickening. Normal appendix. Mildlypatulous distal esophagus. PELVIS: Urinary bladder is normal for the degree of distention. VESSELS: Patent abdominal vasculature. BONES AND SOFT TISSUES: No aggressive or suspicious osseous lesions. [facility], Radiant Results Inft User - 04/21/2020 11:15 PM CSTCT ABDOMEN AND PELVIS WITH CONTRASTHISTORY: Abd pain, acute, generalized COMPARISON: None.TECHNIQUE: Contiguous axial imaging from the level of the lung basesthrough the proximal thighs was performed after the administration ofiodinated intravenous contrast.Coronal and sagittal reconstructions wereobtained.FINDINGS:LOWER THORAX: Mild bibasilar subsegmental atelectasis.LIVER: Liver measures 18 cm in craniocaudal dimension midclavicular line.No focal hepatic lesions identified. Normal hepatic surface contour.GALLBLADDER: Contracted gallbladder without radiopaque cholelithiasis. Nobiliary ductal dilatation.SPLEEN: No splenomegaly.PANCREAS: No ductal dilation or masses.ADRENAL GLANDS: No adrenal nodules.KIDNEYS: No hydronephrosis, stones, or masses.PERITONEUM AND RETROPERITONEUM: No free air or fluid. A peripherallyenhancing, hypodense collection within the umbilicus measuringapproximately 2.9 x 1.3 cm, previously about 3.7 x 3.2 cm. Mild surroundingsubcutaneous stranding.LYMPH NODES: No lymphadenopathy.GI TRACT: No dilation or abnormal wall thickening. Normal appendix. Mildlypatulous distal esophagus.PELVIS: Urinary bladder is normal for the degree of distention.VESSELS: Patent abdominal vasculature.BONES AND SOFT TISSUES: No aggressive or suspicious osseous lesions.IMPRESSIONPeripherally enhancing 2.9 x 1.3 cm umbilical collection, previously 3.7 x2.2 cm. This collection is predominantly collapsed with only trace amountof fluid remaining and mild surrounding stranding.No acute findings in the abdomen or pelvis.Preliminary Report Dictated by Resident: Earnest Juares MD., have reviewed this study and agree with theabove report.[facility] [id number] 05:14:25Peripherally enhancing 2.9 x 1.3 cm umbilical collection, previously 3.7 x2.2 cm. This collection is predominantly collapsed with only trace amountof fluid remaining and mild surrounding stranding. No acute findings in the abdomen or pelvis. Preliminary Report Dictated by Resident: Earnest Garcia MD., have reviewed this study and agree with theabove report.CT ABDOMEN AND PELVIS WITH CONTRAST HISTORY: Abd pain, acute, generalized COMPARISON: None. TECHNIQUE: Contiguous axial imaging from the level of the lung basesthrough the proximal thighs was performed after the administration ofiodinated intravenous contrast. Coronal and sagittal reconstructions wereobtained. FINDINGS: LOWER THORAX: Mild bibasilar subsegmental atelectasis. LIVER: Liver measures 18 cm in craniocaudal dimension midclavicular line.No focal hepatic lesions identified. Normal hepatic surface contour. GALLBLADDER: Contracted gallbladder without radiopaque cholelithiasis. Nobiliary ductal dilatation. SPLEEN: No splenomegaly. PANCREAS: No ductal dilation or masses. ADRENAL GLANDS: No adrenal nodules. KIDNEYS: No hydronephrosis, stones, or masses. PERITONEUM AND RETROPERITONEUM: No free air or fluid. A peripherallyenhancing, hypodense collection within the umbilicus measuringapproximately 2.9 x 1.3 cm, previously about 3.7 x 3.2 cm. Mild surroundingsubcutaneous stranding. LYMPH NODES: No lymphadenopathy. GI TRACT: No dilation or abnormal wall thickening. Normal appendix. Mildlypatulous distal esophagus. PELVIS: Urinary bladder is normal for the degree of distention. VESSELS: Patent abdominal vasculature. BONES AND SOFT TISSUES: No aggressive or suspicious osseous lesions. [facility], Radiant Results Inft User - 04/21/2020 11:15 PM CSTCT ABDOMEN AND PELVIS WITH CONTRASTHISTORY: Abd pain, acute, generalized COMPARISON: None.TECHNIQUE: Contiguous axial imaging from the level of the lung basesthrough the proximal thighs was performed after the administration ofiodinated intravenous contrast.Coronal and sagittal reconstructions wereobtained.FINDINGS:LOWER THORAX: Mild bibasilar subsegmental atelectasis.LIVER: Liver measures 18 cm in craniocaudal dimension midclavicular line.No focal hepatic lesions identified. Normal hepatic surface contour.GALLBLADDER: Contracted gallbladder without radiopaque cholelithiasis. Nobiliary ductal dilatation.SPLEEN: No splenomegaly.PANCREAS: No ductal dilation or masses.ADRENAL GLANDS: No adrenal nodules.KIDNEYS: No hydronephrosis, stones, or masses.PERITONEUM AND RETROPERITONEUM: No free air or fluid. A peripherallyenhancing, hypodense collection within the umbilicus measuringapproximately 2.9 x 1.3 cm, previously about 3.7 x 3.2 cm. Mild surroundingsubcutaneous stranding.LYMPH NODES: No lymphadenopathy.GI TRACT: No dilation or abnormal wall thickening. Normal appendix. Mildlypatulous distal esophagus.PELVIS: Urinary bladder is normal for the degree of distention.VESSELS: Patent abdominal vasculature.BONES AND SOFT TISSUES: No aggressive or suspicious osseous lesions.IMPRESSIONPeripherally enhancing 2.9 x 1.3 cm umbilical collection, previously 3.7 x2.2 cm. This collection is predominantly collapsed with only trace amountof fluid remaining and mild surrounding stranding.No acute findings in the abdomen or pelvis.Preliminary Report Dictated by Resident: Earnest Juares MD., have reviewed this study and agree with theabove report.[facility] [id number] 05:14:25Peripherally enhancing 2.9 x 1.3 cm umbilical collection, previously 3.7 x2.2 cm. This collection is predominantly collapsed with only trace amountof fluid remaining and mild surrounding stranding. No acute findings in the abdomen or pelvis. Preliminary Report Dictated by Resident: Earnest Garcia MD., have reviewed this study and agree with theabove report.CT ABDOMEN AND PELVIS WITH CONTRAST HISTORY: Abd pain, acute, generalized COMPARISON: None. TECHNIQUE: Contiguous axial imaging from the level of the lung basesthrough the proximal thighs was performed after the administration ofiodinated intravenous contrast. Coronal and sagittal reconstructions wereobtained. FINDINGS: LOWER THORAX: Mild bibasilar subsegmental atelectasis. LIVER: Liver measures 18 cm in craniocaudal dimension midclavicular line.No focal hepatic lesions identified. Normal hepatic surface contour. GALLBLADDER: Contracted gallbladder without radiopaque cholelithiasis. Nobiliary ductal dilatation. SPLEEN: No splenomegaly. PANCREAS: No ductal dilation or masses. ADRENAL GLANDS: No adrenal nodules. KIDNEYS: No hydronephrosis, stones, or masses. PERITONEUM AND RETROPERITONEUM: No free air or fluid. A peripherallyenhancing, hypodense collection within the umbilicus measuringapproximately 2.9 x 1.3 cm, previously about 3.7 x 3.2 cm. Mild surroundingsubcutaneous stranding. LYMPH NODES: No lymphadenopathy. GI TRACT: No dilation or abnormal wall thickening. Normal appendix. Mildlypatulous distal esophagus. PELVIS: Urinary bladder is normal for the degree of distention. VESSELS: Patent abdominal vasculature. BONES AND SOFT TISSUES: No aggressive or suspicious osseous lesions. [facility], [facility]iant Results In[facility] User - 04/21/2020 11:15 PM CSTCT ABDOMEN AND PELVIS WITH CONTRASTHISTORY: Abd pain, acute, generalized COMPARISON: None.TECHNIQUE: Contiguous axial imaging from the level of the lung basesthrough the proximal thighs was performed after the administration ofiodinated intravenous contrast.Coronal and sagittal reconstructions wereobtained.FINDINGS:LOWER THORAX: Mild bibasilar subsegmental atelectasis.LIVER: Liver measures 18 cm in craniocaudal dimension midclavicular line.No focal hepatic lesions identified. Normal hepatic surface contour.GALLBLADDER: Contracted gallbladder without radiopaque cholelithiasis. Nobiliary ductal dilatation.SPLEEN: No splenomegaly.PANCREAS: No ductal dilation or masses.ADRENAL GLANDS: No adrenal nodules.KIDNEYS: No hydronephrosis, stones, or masses.PERITONEUM AND RETROPERITONEUM: No free air or fluid. A peripherallyenhancing, hypodense collection within the umbilicus measuringapproximately 2.9 x 1.3 cm, previously about 3.7 x 3.2 cm. Mild surroundingsubcutaneous stranding.LYMPH NODES: No lymphadenopathy.GI TRACT: No dilation or abnormal wall thickening. Normal appendix. Mildlypatulous distal esophagus.PELVIS: Urinary bladder is normal for the degree of distention.VESSELS: Patent abdominal vasculature.BONES AND SOFT TISSUES: No aggressive or suspicious osseous lesions.IMPRESSIONPeripherally enhancing 2.9 x 1.3 cm umbilical collection, previously 3.7 x2.2 cm. This collection is predominantly collapsed with only trace amountof fluid remaining and mild surrounding stranding.No acute findings in the abdomen or pelvis.Preliminary Report Dictated by Resident: Earnest Juares MD., have reviewed this study and agree with theabove report.[facility] [id number] 05:14:25Peripherally enhancing 2.9 x 1.3 cm umbilical collection, previously 3.7 x2.2 cm. This collection is predominantly collapsed with only trace amountof fluid remaining and mild surrounding stranding. No acute findings in the abdomen or pelvis. Preliminary Report Dictated by Resident: Earnest Garcia MD., have reviewed this study and agree with theabove report.CT ABDOMEN AND PELVIS WITH CONTRAST HISTORY: Abd pain, acute, generalized COMPARISON: None. TECHNIQUE: Contiguous axial imaging from the level of the lung basesthrough the proximal thighs was performed after the administration ofiodinated intravenous contrast. Coronal and sagittal reconstructions wereobtained. FINDINGS: LOWER THORAX: Mild bibasilar subsegmental atelectasis. LIVER: Liver measures 18 cm in craniocaudal dimension midclavicular line.No focal hepatic lesions identified. Normal hepatic surface contour. GALLBLADDER: Contracted gallbladder without radiopaque cholelithiasis. Nobiliary ductal dilatation. SPLEEN: No splenomegaly. PANCREAS: No ductal dilation or masses. ADRENAL GLANDS: No adrenal nodules. KIDNEYS: No hydronephrosis, stones, or masses. PERITONEUM AND RETROPERITONEUM: No free air or fluid. A peripherallyenhancing, hypodense collection within the umbilicus measuringapproximately 2.9 x 1.3 cm, previously about 3.7 x 3.2 cm. Mild surroundingsubcutaneous stranding. LYMPH NODES: No lymphadenopathy. GI TRACT: No dilation or abnormal wall thickening. Normal appendix. Mildlypatulous distal esophagus. PELVIS: Urinary bladder is normal for the degree of distention. VESSELS: Patent abdominal vasculature. BONES AND SOFT TISSUES: No aggressive or suspicious osseous lesions. [facility], Radiant Results In[facility] User - 04/21/2020 11:15 PM CSTCT ABDOMEN AND PELVIS WITH CONTRASTHISTORY: Abd pain, acute, generalized COMPARISON: None.TECHNIQUE: Contiguous axial imaging from the level of the lung basesthrough the proximal thighs was performed after the administration ofiodinated intravenous contrast.Coronal and sagittal reconstructions wereobtained.FINDINGS:LOWER THORAX: Mild bibasilar subsegmental atelectasis.LIVER: Liver measures 18 cm in craniocaudal dimension midclavicular line.No focal hepatic lesions identified. Normal hepatic surface contour.GALLBLADDER: Contracted gallbladder without radiopaque cholelithiasis. Nobiliary ductal dilatation.SPLEEN: No splenomegaly.PANCREAS: No ductal dilation or masses.ADRENAL GLANDS: No adrenal nodules.KIDNEYS: No hydronephrosis, stones, or masses.PERITONEUM AND RETROPERITONEUM: No free air or fluid. A peripherallyenhancing, hypodense collection within the umbilicus measuringapproximately 2.9 x 1.3 cm, previously about 3.7 x 3.2 cm. Mild surroundingsubcutaneous stranding.LYMPH NODES: No lymphadenopathy.GI TRACT: No dilation or abnormal wall thickening. Normal appendix. Mildlypatulous distal esophagus.PELVIS: Urinary bladder is normal for the degree of distention.VESSELS: Patent abdominal vasculature.BONES AND SOFT TISSUES: No aggressive or suspicious osseous lesions.IMPRESSIONPeripherally enhancing 2.9 x 1.3 cm umbilical collection, previously 3.7 x2.2 cm. This collection is predominantly collapsed with only trace amountof fluid remaining and mild surrounding stranding.No acute findings in the abdomen or pelvis.Preliminary Report Dictated by Resident: Earnest Juares MD., have reviewed this study and agree with theabove report.[facility] [id number] 05:14:25Peripherally enhancing 2.9 x 1.3 cm umbilical collection, previously 3.7 x2.2 cm. This collection is predominantly collapsed with only trace amountof fluid remaining and mild surrounding stranding. No acute findings in the abdomen or pelvis. Preliminary Report Dictated by Resident: Earnest Garcia MD., have reviewed this study and agree with theabove report.CT ABDOMEN AND PELVIS WITH CONTRAST HISTORY: Abd pain, acute, generalized COMPARISON: None. TECHNIQUE: Contiguous axial imaging from the level of the lung basesthrough the proximal thighs was performed after the administration ofiodinated intravenous contrast. Coronal and sagittal reconstructions wereobtained. FINDINGS: LOWER THORAX: Mild bibasilar subsegmental atelectasis. LIVER: Liver measures 18 cm in craniocaudal dimension midclavicular line.No focal hepatic lesions identified. Normal hepatic surface contour. GALLBLADDER: Contracted gallbladder without radiopaque cholelithiasis. Nobiliary ductal dilatation. SPLEEN: No splenomegaly. PANCREAS: No ductal dilation or masses. ADRENAL GLANDS: No adrenal nodules. KIDNEYS: No hydronephrosis, stones, or masses. PERITONEUM AND RETROPERITONEUM: No free air or fluid. A peripherallyenhancing, hypodense collection within the umbilicus measuringapproximately 2.9 x 1.3 cm, previously about 3.7 x 3.2 cm. Mild surroundingsubcutaneous stranding. LYMPH NODES: No lymphadenopathy. GI TRACT: No dilation or abnormal wall thickening. Normal appendix. Mildlypatulous distal esophagus. PELVIS: Urinary bladder is normal for the degree of distention. VESSELS: Patent abdominal vasculature. BONES AND SOFT TISSUES: No aggressive or suspicious osseous lesions. [facility], Radiant Results In[facility] User - 04/21/2020 11:15 PM CSTCT ABDOMEN AND PELVIS WITH CONTRASTHISTORY: Abd pain, acute, generalized COMPARISON: None.TECHNIQUE: Contiguous axial imaging from the level of the lung basesthrough the proximal thighs was performed after the administration ofiodinated intravenous contrast.Coronal and sagittal reconstructions wereobtained.FINDINGS:LOWER THORAX: Mild bibasilar subsegmental atelectasis.LIVER: Liver measures 18 cm in craniocaudal dimension midclavicular line.No focal hepatic lesions identified. Normal hepatic surface contour.GALLBLADDER: Contracted gallbladder without radiopaque cholelithiasis. Nobiliary ductal dilatation.SPLEEN: No splenomegaly.PANCREAS: No ductal dilation or masses.ADRENAL GLANDS: No adrenal nodules.KIDNEYS: No hydronephrosis, stones, or masses.PERITONEUM AND RETROPERITONEUM: No free air or fluid. A peripherallyenhancing, hypodense collection within the umbilicus measuringapproximately 2.9 x 1.3 cm, previously about 3.7 x 3.2 cm. Mild surroundingsubcutaneous stranding.LYMPH NODES: No lymphadenopathy.GI TRACT: No dilation or abnormal wall thickening. Normal appendix. Mildlypatulous distal esophagus.PELVIS: Urinary bladder is normal for the degree of distention.VESSELS: Patent abdominal vasculature.BONES AND SOFT TISSUES: No aggressive or suspicious osseous lesions.IMPRESSIONPeripherally enhancing 2.9 x 1.3 cm umbilical collection, previously 3.7 x2.2 cm. This collection is predominantly collapsed with only trace amountof fluid remaining and mild surrounding stranding.No acute findings in the abdomen or pelvis.Preliminary Report Dictated by Resident: Earnest Juares MD., have reviewed this study and agree with theabove report.[facility] [id number] 05:14:25Peripherally enhancing 2.9 x 1.3 cm umbilical collection, previously 3.7 x2.2 cm. This collection is predominantly collapsed with only trace amountof fluid remaining and mild surrounding stranding. No acute findings in the abdomen or pelvis. Preliminary Report Dictated by Resident: Earnest Garcia MD., have reviewed this study and agree with theabove report.CT ABDOMEN AND PELVIS WITH CONTRAST HISTORY: Abd pain, acute, generalized COMPARISON: None. TECHNIQUE: Contiguous axial imaging from the level of the lung basesthrough the proximal thighs was performed after the administration ofiodinated intravenous contrast. Coronal and sagittal reconstructions wereobtained. FINDINGS: LOWER THORAX: Mild bibasilar subsegmental atelectasis. LIVER: Liver measures 18 cm in craniocaudal dimension midclavicular line.No focal hepatic lesions identified. Normal hepatic surface contour. GALLBLADDER: Contracted gallbladder without radiopaque cholelithiasis. Nobiliary ductal dilatation. SPLEEN: No splenomegaly. PANCREAS: No ductal dilation or masses. ADRENAL GLANDS: No adrenal nodules. KIDNEYS: No hydronephrosis, stones, or masses. PERITONEUM AND RETROPERITONEUM: No free air or fluid. A peripherallyenhancing, hypodense collection within the umbilicus measuringapproximately 2.9 x 1.3 cm, previously about 3.7 x 3.2 cm. Mild surroundingsubcutaneous stranding. LYMPH NODES: No lymphadenopathy. GI TRACT: No dilation or abnormal wall thickening. Normal appendix. Mildlypatulous distal esophagus. PELVIS: Urinary bladder is normal for the degree of distention. VESSELS: Patent abdominal vasculature. BONES AND SOFT TISSUES: No aggressive or suspicious osseous lesions. [facility], Radiant Results In[facility] User - 04/21/2020 11:15 PM CSTCT ABDOMEN AND PELVIS WITH CONTRASTHISTORY: Abd pain, acute, generalized COMPARISON: None.TECHNIQUE: Contiguous axial imaging from the level of the lung basesthrough the proximal thighs was performed after the administration ofiodinated intravenous contrast.Coronal and sagittal reconstructions wereobtained.FINDINGS:LOWER THORAX: Mild bibasilar subsegmental atelectasis.LIVER: Liver measures 18 cm in craniocaudal dimension midclavicular line.No focal hepatic lesions identified. Normal hepatic surface contour.GALLBLADDER: Contracted gallbladder without radiopaque cholelithiasis. Nobiliary ductal dilatation.SPLEEN: No splenomegaly.PANCREAS: No ductal dilation or masses.ADRENAL GLANDS: No adrenal nodules.KIDNEYS: No hydronephrosis, stones, or masses.PERITONEUM AND RETROPERITONEUM: No free air or fluid. A peripherallyenhancing, hypodense collection within the umbilicus measuringapproximately 2.9 x 1.3 cm, previously about 3.7 x 3.2 cm. Mild surroundingsubcutaneous stranding.LYMPH NODES: No lymphadenopathy.GI TRACT: No dilation or abnormal wall thickening. Normal appendix. Mildlypatulous distal esophagus.PELVIS: Urinary bladder is normal for the degree of distention.VESSELS: Patent abdominal vasculature.BONES AND SOFT TISSUES: No aggressive or suspicious osseous lesions.IMPRESSIONPeripherally enhancing 2.9 x 1.3 cm umbilical collection, previously 3.7 x2.2 cm. This collection is predominantly collapsed with only trace amountof fluid remaining and mild surrounding stranding.No acute findings in the abdomen or pelvis.Preliminary Report Dictated by Resident: Earnest Juares MD., have reviewed this study and agree with theabove report.[facility] [id number] 05:14:25Peripherally enhancing 2.9 x 1.3 cm umbilical collection, previously 3.7 x2.2 cm. This collection is predominantly collapsed with only trace amountof fluid remaining and mild surrounding stranding. No acute findings in the abdomen or pelvis. Preliminary Report Dictated by Resident: Earnest Garcia MD., have reviewed this study and agree with theabove report.CT ABDOMEN AND PELVIS WITH CONTRAST HISTORY: Abd pain, acute, generalized COMPARISON: None. TECHNIQUE: Contiguous axial imaging from the level of the lung basesthrough the proximal thighs was performed after the administration ofiodinated intravenous contrast. Coronal and sagittal reconstructions wereobtained. FINDINGS: LOWER THORAX: Mild bibasilar subsegmental atelectasis. LIVER: Liver measures 18 cm in craniocaudal dimension midclavicular line.No focal hepatic lesions identified. Normal hepatic surface contour. GALLBLADDER: Contracted gallbladder without radiopaque cholelithiasis. Nobiliary ductal dilatation. SPLEEN: No splenomegaly. PANCREAS: No ductal dilation or masses. ADRENAL GLANDS: No adrenal nodules. KIDNEYS: No hydronephrosis, stones, or masses. PERITONEUM AND RETROPERITONEUM: No free air or fluid. A peripherallyenhancing, hypodense collection within the umbilicus measuringapproximately 2.9 x 1.3 cm, previously about 3.7 x 3.2 cm. Mild surroundingsubcutaneous stranding. LYMPH NODES: No lymphadenopathy. GI TRACT: No dilation or abnormal wall thickening. Normal appendix. Mildlypatulous distal esophagus. PELVIS: Urinary bladder is normal for the degree of distention. VESSELS: Patent abdominal vasculature. BONES AND SOFT TISSUES: No aggressive or suspicious osseous lesions. [facility], Radiant Results In[facility] User - 04/21/2020 11:15 PM CSTCT ABDOMEN AND PELVIS WITH CONTRASTHISTORY: Abd pain, acute, generalized COMPARISON: None.TECHNIQUE: Contiguous axial imaging from the level of the lung basesthrough the proximal thighs was performed after the administration ofiodinated intravenous contrast.Coronal and sagittal reconstructions wereobtained.FINDINGS:LOWER THORAX: Mild bibasilar subsegmental atelectasis.LIVER: Liver measures 18 cm in craniocaudal dimension midclavicular line.No focal hepatic lesions identified. Normal hepatic surface contour.GALLBLADDER: Contracted gallbladder without radiopaque cholelithiasis. Nobiliary ductal dilatation.SPLEEN: No splenomegaly.PANCREAS: No ductal dilation or masses.ADRENAL GLANDS: No adrenal nodules.KIDNEYS: No hydronephrosis, stones, or masses.PERITONEUM AND RETROPERITONEUM: No free air or fluid. A peripherallyenhancing, hypodense collection within the umbilicus measuringapproximately 2.9 x 1.3 cm, previously about 3.7 x 3.2 cm. Mild surroundingsubcutaneous stranding.LYMPH NODES: No lymphadenopathy.GI TRACT: No dilation or abnormal wall thickening. Normal appendix. Mildlypatulous distal esophagus.PELVIS: Urinary bladder is normal for the degree of distention.VESSELS: Patent abdominal vasculature.BONES AND SOFT TISSUES: No aggressive or suspicious osseous lesions.IMPRESSIONPeripherally enhancing 2.9 x 1.3 cm umbilical collection, previously 3.7 x2.2 cm. This collection is predominantly collapsed with only trace amountof fluid remaining and mild surrounding stranding.No acute findings in the abdomen or pelvis.Preliminary Report Dictated by Resident: Earnest Juares MD., have reviewed this study and agree with theabove report.[facility] [id number] 05:14:25Peripherally enhancing 2.9 x 1.3 cm umbilical collection, previously 3.7 x2.2 cm. This collection is predominantly collapsed with only trace amountof fluid remaining and mild surrounding stranding. No acute findings in the abdomen or pelvis. Preliminary Report Dictated by Resident: Earnest Garcia MD., have reviewed this study and agree with theabove report.CT ABDOMEN AND PELVIS WITH CONTRAST HISTORY: Abd pain, acute, generalized COMPARISON: None. TECHNIQUE: Contiguous axial imaging from the level of the lung basesthrough the proximal thighs was performed after the administration ofiodinated intravenous contrast. Coronal and sagittal reconstructions wereobtained. FINDINGS: LOWER THORAX: Mild bibasilar subsegmental atelectasis. LIVER: Liver measures 18 cm in craniocaudal dimension midclavicular line.No focal hepatic lesions identified. Normal hepatic surface contour. GALLBLADDER: Contracted gallbladder without radiopaque cholelithiasis. Nobiliary ductal dilatation. SPLEEN: No splenomegaly. PANCREAS: No ductal dilation or masses. ADRENAL GLANDS: No adrenal nodules. KIDNEYS: No hydronephrosis, stones, or masses. PERITONEUM AND RETROPERITONEUM: No free air or fluid. A peripherallyenhancing, hypodense collection within the umbilicus measuringapproximately 2.9 x 1.3 cm, previously about 3.7 x 3.2 cm. Mild surroundingsubcutaneous stranding. LYMPH NODES: No lymphadenopathy. GI TRACT: No dilation or abnormal wall thickening. Normal appendix. Mildlypatulous distal esophagus. PELVIS: Urinary bladder is normal for the degree of distention. VESSELS: Patent abdominal vasculature. BONES AND SOFT TISSUES: No aggressive or suspicious osseous lesions. [facility], Radiant Results In[facility] User - 04/21/2020 11:15 PM CSTCT ABDOMEN AND PELVIS WITH CONTRASTHISTORY: Abd pain, acute, generalized COMPARISON: None.TECHNIQUE: Contiguous axial imaging from the level of the lung basesthrough the proximal thighs was performed after the administration ofiodinated intravenous contrast.Coronal and sagittal reconstructions wereobtained.FINDINGS:LOWER THORAX: Mild bibasilar subsegmental atelectasis.LIVER: Liver measures 18 cm in craniocaudal dimension midclavicular line.No focal hepatic lesions identified. Normal hepatic surface contour.GALLBLADDER: Contracted gallbladder without radiopaque cholelithiasis. Nobiliary ductal dilatation.SPLEEN: No splenomegaly.PANCREAS: No ductal dilation or masses.ADRENAL GLANDS: No adrenal nodules.KIDNEYS: No hydronephrosis, stones, or masses.PERITONEUM AND RETROPERITONEUM: No free air or fluid. A peripherallyenhancing, hypodense collection within the umbilicus measuringapproximately 2.9 x 1.3 cm, previously about 3.7 x 3.2 cm. Mild surroundingsubcutaneous stranding.LYMPH NODES: No lymphadenopathy.GI TRACT: No dilation or abnormal wall thickening. Normal appendix. Mildlypatulous distal esophagus.PELVIS: Urinary bladder is normal for the degree of distention.VESSELS: Patent abdominal vasculature.BONES AND SOFT TISSUES: No aggressive or suspicious osseous lesions.IMPRESSIONPeripherally enhancing 2.9 x 1.3 cm umbilical collection, previously 3.7 x2.2 cm. This collection is predominantly collapsed with only trace amountof fluid remaining and mild surrounding stranding.No acute findings in the abdomen or pelvis.Preliminary Report Dictated by Resident: Earnest Juares MD., have reviewed this study and agree with theabove report.[facility] [id number] 05:14:25Peripherally enhancing 2.9 x 1.3 cm umbilical collection, previously 3.7 x2.2 cm. This collection is predominantly collapsed with only trace amountof fluid remaining and mild surrounding stranding. No acute findings in the abdomen or pelvis. Preliminary Report Dictated by Resident: Earnest Garcia MD., have reviewed this study and agree with theabove report.CT ABDOMEN AND PELVIS WITH CONTRAST HISTORY: Abd pain, acute, generalized COMPARISON: None. TECHNIQUE: Contiguous axial imaging from the level of the lung basesthrough the proximal thighs was performed after the administration ofiodinated intravenous contrast. Coronal and sagittal reconstructions wereobtained. FINDINGS: LOWER THORAX: Mild bibasilar subsegmental atelectasis. LIVER: Liver measures 18 cm in craniocaudal dimension midclavicular line.No focal hepatic lesions identified. Normal hepatic surface contour. GALLBLADDER: Contracted gallbladder without radiopaque cholelithiasis. Nobiliary ductal dilatation. SPLEEN: No splenomegaly. PANCREAS: No ductal dilation or masses. ADRENAL GLANDS: No adrenal nodules. KIDNEYS: No hydronephrosis, stones, or masses. PERITONEUM AND RETROPERITONEUM: No free air or fluid. A peripherallyenhancing, hypodense collection within the umbilicus measuringapproximately 2.9 x 1.3 cm, previously about 3.7 x 3.2 cm. Mild surroundingsubcutaneous stranding. LYMPH NODES: No lymphadenopathy. GI TRACT: No dilation or abnormal wall thickening. Normal appendix. Mildlypatulous distal esophagus. PELVIS: Urinary bladder is normal for the degree of distention. VESSELS: Patent abdominal vasculature. BONES AND SOFT TISSUES: No aggressive or suspicious osseous lesions. [facility], Radiant Results Inft User - 04/21/2020 11:15 PM CSTCT ABDOMEN AND PELVIS WITH CONTRASTHISTORY: Abd pain, acute, generalized COMPARISON: None.TECHNIQUE: Contiguous axial imaging from the level of the lung basesthrough the proximal thighs was performed after the administration ofiodinated intravenous contrast.Coronal and sagittal reconstructions wereobtained.FINDINGS:LOWER THORAX: Mild bibasilar subsegmental atelectasis.LIVER: Liver measures 18 cm in craniocaudal dimension midclavicular line.No focal hepatic lesions identified. Normal hepatic surface contour.GALLBLADDER: Contracted gallbladder without radiopaque cholelithiasis. Nobiliary ductal dilatation.SPLEEN: No splenomegaly.PANCREAS: No ductal dilation or masses.ADRENAL GLANDS: No adrenal nodules.KIDNEYS: No hydronephrosis, stones, or masses.PERITONEUM AND RETROPERITONEUM: No free air or fluid. A peripherallyenhancing, hypodense collection within the umbilicus measuringapproximately 2.9 x 1.3 cm, previously about 3.7 x 3.2 cm. Mild surroundingsubcutaneous stranding.LYMPH NODES: No lymphadenopathy.GI TRACT: No dilation or abnormal wall thickening. Normal appendix. Mildlypatulous distal esophagus.PELVIS: Urinary bladder is normal for the degree of distention.VESSELS: Patent abdominal vasculature.BONES AND SOFT TISSUES: No aggressive or suspicious osseous lesions.IMPRESSIONPeripherally enhancing 2.9 x 1.3 cm umbilical collection, previously 3.7 x2.2 cm. This collection is predominantly collapsed with only trace amountof fluid remaining and mild surrounding stranding.No acute findings in the abdomen or pelvis.Preliminary Report Dictated by Resident: Earnest Juares MD., have reviewed this study and agree with theabove report.[facility] [id number] 05:14:25Peripherally enhancing 2.9 x 1.3 cm umbilical collection, previously 3.7 x2.2 cm. This collection is predominantly collapsed with only trace amountof fluid remaining and mild surrounding stranding. No acute findings in the abdomen or pelvis. Preliminary Report Dictated by Resident: Earnest Garcia MD., have reviewed this study and agree with theabove report.CT ABDOMEN AND PELVIS WITH CONTRAST HISTORY: Abd pain, acute, generalized COMPARISON: None. TECHNIQUE: Contiguous axial imaging from the level of the lung basesthrough the proximal thighs was performed after the administration ofiodinated intravenous contrast. Coronal and sagittal reconstructions wereobtained. FINDINGS: LOWER THORAX: Mild bibasilar subsegmental atelectasis. LIVER: Liver measures 18 cm in craniocaudal dimension midclavicular line.No focal hepatic lesions identified. Normal hepatic surface contour. GALLBLADDER: Contracted gallbladder without radiopaque cholelithiasis. Nobiliary ductal dilatation. SPLEEN: No splenomegaly. PANCREAS: No ductal dilation or masses. ADRENAL GLANDS: No adrenal nodules. KIDNEYS: No hydronephrosis, stones, or masses. PERITONEUM AND RETROPERITONEUM: No free air or fluid. A peripherallyenhancing, hypodense collection within the umbilicus measuringapproximately 2.9 x 1.3 cm, previously about 3.7 x 3.2 cm. Mild surroundingsubcutaneous stranding. LYMPH NODES: No lymphadenopathy. GI TRACT: No dilation or abnormal wall thickening. Normal appendix. Mildlypatulous distal esophagus. PELVIS: Urinary bladder is normal for the degree of distention. VESSELS: Patent abdominal vasculature. BONES AND SOFT TISSUES: No aggressive or suspicious osseous lesions. [facility], [facility]iant Results In[facility] User - 04/21/2020 11:15 PM CSTCT ABDOMEN AND PELVIS WITH CONTRASTHISTORY: Abd pain, acute, generalized COMPARISON: None.TECHNIQUE: Contiguous axial imaging from the level of the lung basesthrough the proximal thighs was performed after the administration ofiodinated intravenous contrast.Coronal and sagittal reconstructions wereobtained.FINDINGS:LOWER THORAX: Mild bibasilar subsegmental atelectasis.LIVER: Liver measures 18 cm in craniocaudal dimension midclavicular line.No focal hepatic lesions identified. Normal hepatic surface contour.GALLBLADDER: Contracted gallbladder without radiopaque cholelithiasis. Nobiliary ductal dilatation.SPLEEN: No splenomegaly.PANCREAS: No ductal dilation or masses.ADRENAL GLANDS: No adrenal nodules.KIDNEYS: No hydronephrosis, stones, or masses.PERITONEUM AND RETROPERITONEUM: No free air or fluid. A peripherallyenhancing, hypodense collection within the umbilicus measuringapproximately 2.9 x 1.3 cm, previously about 3.7 x 3.2 cm. Mild surroundingsubcutaneous stranding.LYMPH NODES: No lymphadenopathy.GI TRACT: No dilation or abnormal wall thickening. Normal appendix. Mildlypatulous distal esophagus.PELVIS: Urinary bladder is normal for the degree of distention.VESSELS: Patent abdominal vasculature.BONES AND SOFT TISSUES: No aggressive or suspicious osseous lesions.IMPRESSIONPeripherally enhancing 2.9 x 1.3 cm umbilical collection, previously 3.7 x2.2 cm. This collection is predominantly collapsed with only trace amountof fluid remaining and mild surrounding stranding.No acute findings in the abdomen or pelvis.Preliminary Report Dictated by Resident: Earnest Juares MD., have reviewed this study and agree with theabove report.[facility] [id number] 05:14:25Peripherally enhancing 2.9 x 1.3 cm umbilical collection, previously 3.7 x2.2 cm. This collection is predominantly collapsed with only trace amountof fluid remaining and mild surrounding stranding. No acute findings in the abdomen or pelvis. Preliminary Report Dictated by Resident: Earnest Garcia MD., have reviewed this study and agree with theabove report.CT ABDOMEN AND PELVIS WITH CONTRAST HISTORY: Abd pain, acute, generalized COMPARISON: None. TECHNIQUE: Contiguous axial imaging from the level of the lung basesthrough the proximal thighs was performed after the administration ofiodinated intravenous contrast. Coronal and sagittal reconstructions wereobtained. FINDINGS: LOWER THORAX: Mild bibasilar subsegmental atelectasis. LIVER: Liver measures 18 cm in craniocaudal dimension midclavicular line.No focal hepatic lesions identified. Normal hepatic surface contour. GALLBLADDER: Contracted gallbladder without radiopaque cholelithiasis. Nobiliary ductal dilatation. SPLEEN: No splenomegaly. PANCREAS: No ductal dilation or masses. ADRENAL GLANDS: No adrenal nodules. KIDNEYS: No hydronephrosis, stones, or masses. PERITONEUM AND RETROPERITONEUM: No free air or fluid. A peripherallyenhancing, hypodense collection within the umbilicus measuringapproximately 2.9 x 1.3 cm, previously about 3.7 x 3.2 cm. Mild surroundingsubcutaneous stranding. LYMPH NODES: No lymphadenopathy. GI TRACT: No dilation or abnormal wall thickening. Normal appendix. Mildlypatulous distal esophagus. PELVIS: Urinary bladder is normal for the degree of distention. VESSELS: Patent abdominal vasculature. BONES AND SOFT TISSUES: No aggressive or suspicious osseous lesions. [facility], Radiant Results In[facility] User - 04/21/2020 11:15 PM CSTCT ABDOMEN AND PELVIS WITH CONTRASTHISTORY: Abd pain, acute, generalized COMPARISON: None.TECHNIQUE: Contiguous axial imaging from the level of the lung basesthrough the proximal thighs was performed after the administration ofiodinated intravenous contrast.Coronal and sagittal reconstructions wereobtained.FINDINGS:LOWER THORAX: Mild bibasilar subsegmental atelectasis.LIVER: Liver measures 18 cm in craniocaudal dimension midclavicular line.No focal hepatic lesions identified. Normal hepatic surface contour.GALLBLADDER: Contracted gallbladder without radiopaque cholelithiasis. Nobiliary ductal dilatation.SPLEEN: No splenomegaly.PANCREAS: No ductal dilation or masses.ADRENAL GLANDS: No adrenal nodules.KIDNEYS: No hydronephrosis, stones, or masses.PERITONEUM AND RETROPERITONEUM: No free air or fluid. A peripherallyenhancing, hypodense collection within the umbilicus measuringapproximately 2.9 x 1.3 cm, previously about 3.7 x 3.2 cm. Mild surroundingsubcutaneous stranding.LYMPH NODES: No lymphadenopathy.GI TRACT: No dilation or abnormal wall thickening. Normal appendix. Mildlypatulous distal esophagus.PELVIS: Urinary bladder is normal for the degree of distention.VESSELS: Patent abdominal vasculature.BONES AND SOFT TISSUES: No aggressive or suspicious osseous lesions.IMPRESSIONPeripherally enhancing 2.9 x 1.3 cm umbilical collection, previously 3.7 x2.2 cm. This collection is predominantly collapsed with only trace amountof fluid remaining and mild surrounding stranding.No acute findings in the abdomen or pelvis.Preliminary Report Dictated by Resident: Earnest Juares MD., have reviewed this study and agree with theabove report.[facility] [id number] 05:14:25Peripherally enhancing 2.9 x 1.3 cm umbilical collection, previously 3.7 x2.2 cm. This collection is predominantly collapsed with only trace amountof fluid remaining and mild surrounding stranding. No acute findings in the abdomen or pelvis. Preliminary Report Dictated by Resident: Earnest Garcia MD., have reviewed this study and agree with theabove report.CT ABDOMEN AND PELVIS WITH CONTRAST HISTORY: Abd pain, acute, generalized COMPARISON: None. TECHNIQUE: Contiguous axial imaging from the level of the lung basesthrough the proximal thighs was performed after the administration ofiodinated intravenous contrast. Coronal and sagittal reconstructions wereobtained. FINDINGS: LOWER THORAX: Mild bibasilar subsegmental atelectasis. LIVER: Liver measures 18 cm in craniocaudal dimension midclavicular line.No focal hepatic lesions identified. Normal hepatic surface contour. GALLBLADDER: Contracted gallbladder without radiopaque cholelithiasis. Nobiliary ductal dilatation. SPLEEN: No splenomegaly. PANCREAS: No ductal dilation or masses. ADRENAL GLANDS: No adrenal nodules. KIDNEYS: No hydronephrosis, stones, or masses. PERITONEUM AND RETROPERITONEUM: No free air or fluid. A peripherallyenhancing, hypodense collection within the umbilicus measuringapproximately 2.9 x 1.3 cm, previously about 3.7 x 3.2 cm. Mild surroundingsubcutaneous stranding. LYMPH NODES: No lymphadenopathy. GI TRACT: No dilation or abnormal wall thickening. Normal appendix. Mildlypatulous distal esophagus. PELVIS: Urinary bladder is normal for the degree of distention. VESSELS: Patent abdominal vasculature. BONES AND SOFT TISSUES: No aggressive or suspicious osseous lesions. [facility], Radiant Results In[facility] User - 04/21/2020 11:15 PM CSTCT ABDOMEN AND PELVIS WITH CONTRASTHISTORY: Abd pain, acute, generalized COMPARISON: None.TECHNIQUE: Contiguous axial imaging from the level of the lung basesthrough the proximal thighs was performed after the administration ofiodinated intravenous contrast.Coronal and sagittal reconstructions wereobtained.FINDINGS:LOWER THORAX: Mild bibasilar subsegmental atelectasis.LIVER: Liver measures 18 cm in craniocaudal dimension midclavicular line.No focal hepatic lesions identified. Normal hepatic surface contour.GALLBLADDER: Contracted gallbladder without radiopaque cholelithiasis. Nobiliary ductal dilatation.SPLEEN: No splenomegaly.PANCREAS: No ductal dilation or masses.ADRENAL GLANDS: No adrenal nodules.KIDNEYS: No hydronephrosis, stones, or masses.PERITONEUM AND RETROPERITONEUM: No free air or fluid. A peripherallyenhancing, hypodense collection within the umbilicus measuringapproximately 2.9 x 1.3 cm, previously about 3.7 x 3.2 cm. Mild surroundingsubcutaneous stranding.LYMPH NODES: No lymphadenopathy.GI TRACT: No dilation or abnormal wall thickening. Normal appendix. Mildlypatulous distal esophagus.PELVIS: Urinary bladder is normal for the degree of distention.VESSELS: Patent abdominal vasculature.BONES AND SOFT TISSUES: No aggressive or suspicious osseous lesions.IMPRESSIONPeripherally enhancing 2.9 x 1.3 cm umbilical collection, previously 3.7 x2.2 cm. This collection is predominantly collapsed with only trace amountof fluid remaining and mild surrounding stranding.No acute findings in the abdomen or pelvis.Preliminary Report Dictated by Resident: Earnest Juares MD., have reviewed this study and agree with theabove report.[facility] [id number] 05:14:25Peripherally enhancing 2.9 x 1.3 cm umbilical collection, previously 3.7 x2.2 cm. This collection is predominantly collapsed with only trace amountof fluid remaining and mild surrounding stranding. No acute findings in the abdomen or pelvis. Preliminary Report Dictated by Resident: Earnest Garcia MD., have reviewed this study and agree with theabove report.CT ABDOMEN AND PELVIS WITH CONTRAST HISTORY: Abd pain, acute, generalized COMPARISON: None. TECHNIQUE: Contiguous axial imaging from the level of the lung basesthrough the proximal thighs was performed after the administration ofiodinated intravenous contrast. Coronal and sagittal reconstructions wereobtained. FINDINGS: LOWER THORAX: Mild bibasilar subsegmental atelectasis. LIVER: Liver measures 18 cm in craniocaudal dimension midclavicular line.No focal hepatic lesions identified. Normal hepatic surface contour. GALLBLADDER: Contracted gallbladder without radiopaque cholelithiasis. Nobiliary ductal dilatation. SPLEEN: No splenomegaly. PANCREAS: No ductal dilation or masses. ADRENAL GLANDS: No adrenal nodules. KIDNEYS: No hydronephrosis, stones, or masses. PERITONEUM AND RETROPERITONEUM: No free air or fluid. A peripherallyenhancing, hypodense collection within the umbilicus measuringapproximately 2.9 x 1.3 cm, previously about 3.7 x 3.2 cm. Mild surroundingsubcutaneous stranding. LYMPH NODES: No lymphadenopathy. GI TRACT: No dilation or abnormal wall thickening. Normal appendix. Mildlypatulous distal esophagus. PELVIS: Urinary bladder is normal for the degree of distention. VESSELS: Patent abdominal vasculature. BONES AND SOFT TISSUES: No aggressive or suspicious osseous lesions. [facility], Radiant Results In[facility] User - 04/21/2020 11:15 PM CSTCT ABDOMEN AND PELVIS WITH CONTRASTHISTORY: Abd pain, acute, generalized COMPARISON: None.TECHNIQUE: Contiguous axial imaging from the level of the lung basesthrough the proximal thighs was performed after the administration ofiodinated intravenous contrast.Coronal and sagittal reconstructions wereobtained.FINDINGS:LOWER THORAX: Mild bibasilar subsegmental atelectasis.LIVER: Liver measures 18 cm in craniocaudal dimension midclavicular line.No focal hepatic lesions identified. Normal hepatic surface contour.GALLBLADDER: Contracted gallbladder without radiopaque cholelithiasis. Nobiliary ductal dilatation.SPLEEN: No splenomegaly.PANCREAS: No ductal dilation or masses.ADRENAL GLANDS: No adrenal nodules.KIDNEYS: No hydronephrosis, stones, or masses.PERITONEUM AND RETROPERITONEUM: No free air or fluid. A peripherallyenhancing, hypodense collection within the umbilicus measuringapproximately 2.9 x 1.3 cm, previously about 3.7 x 3.2 cm. Mild surroundingsubcutaneous stranding.LYMPH NODES: No lymphadenopathy.GI TRACT: No dilation or abnormal wall thickening. Normal appendix. Mildlypatulous distal esophagus.PELVIS: Urinary bladder is normal for the degree of distention.VESSELS: Patent abdominal vasculature.BONES AND SOFT TISSUES: No aggressive or suspicious osseous lesions.IMPRESSIONPeripherally enhancing 2.9 x 1.3 cm umbilical collection, previously 3.7 x2.2 cm. This collection is predominantly collapsed with only trace amountof fluid remaining and mild surrounding stranding.No acute findings in the abdomen or pelvis.Preliminary Report Dictated by Resident: Earnest Juares MD., have reviewed this study and agree with theabove report.[facility] [id number] 05:14:25Peripherally enhancing 2.9 x 1.3 cm umbilical collection, previously 3.7 x2.2 cm. This collection is predominantly collapsed with only trace amountof fluid remaining and mild surrounding stranding. No acute findings in the abdomen or pelvis. Preliminary Report Dictated by Resident: Earnest Garcia MD., have reviewed this study and agree with theabove report.CT ABDOMEN AND PELVIS WITH CONTRAST HISTORY: Abd pain, acute, generalized COMPARISON: None. TECHNIQUE: Contiguous axial imaging from the level of the lung basesthrough the proximal thighs was performed after the administration ofiodinated intravenous contrast. Coronal and sagittal reconstructions wereobtained. FINDINGS: LOWER THORAX: Mild bibasilar subsegmental atelectasis. LIVER: Liver measures 18 cm in craniocaudal dimension midclavicular line.No focal hepatic lesions identified. Normal hepatic surface contour. GALLBLADDER: Contracted gallbladder without radiopaque cholelithiasis. Nobiliary ductal dilatation. SPLEEN: No splenomegaly. PANCREAS: No ductal dilation or masses. ADRENAL GLANDS: No adrenal nodules. KIDNEYS: No hydronephrosis, stones, or masses. PERITONEUM AND RETROPERITONEUM: No free air or fluid. A peripherallyenhancing, hypodense collection within the umbilicus measuringapproximately 2.9 x 1.3 cm, previously about 3.7 x 3.2 cm. Mild surroundingsubcutaneous stranding. LYMPH NODES: No lymphadenopathy. GI TRACT: No dilation or abnormal wall thickening. Normal appendix. Mildlypatulous distal esophagus. PELVIS: Urinary bladder is normal for the degree of distention. VESSELS: Patent abdominal vasculature. BONES AND SOFT TISSUES: No aggressive or suspicious osseous lesions. [facility], Radiant Results In[facility] User - 04/21/2020 11:15 PM CSTCT ABDOMEN AND PELVIS WITH CONTRASTHISTORY: Abd pain, acute, generalized COMPARISON: None.TECHNIQUE: Contiguous axial imaging from the level of the lung basesthrough the proximal thighs was performed after the administration ofiodinated intravenous contrast.Coronal and sagittal reconstructions wereobtained.FINDINGS:LOWER THORAX: Mild bibasilar subsegmental atelectasis.LIVER: Liver measures 18 cm in craniocaudal dimension midclavicular line.No focal hepatic lesions identified. Normal hepatic surface contour.GALLBLADDER: Contracted gallbladder without radiopaque cholelithiasis. Nobiliary ductal dilatation.SPLEEN: No splenomegaly.PANCREAS: No ductal dilation or masses.ADRENAL GLANDS: No adrenal nodules.KIDNEYS: No hydronephrosis, stones, or masses.PERITONEUM AND RETROPERITONEUM: No free air or fluid. A peripherallyenhancing, hypodense collection within the umbilicus measuringapproximately 2.9 x 1.3 cm, previously about 3.7 x 3.2 cm. Mild surroundingsubcutaneous stranding.LYMPH NODES: No lymphadenopathy.GI TRACT: No dilation or abnormal wall thickening. Normal appendix. Mildlypatulous distal esophagus.PELVIS: Urinary bladder is normal for the degree of distention.VESSELS: Patent abdominal vasculature.BONES AND SOFT TISSUES: No aggressive or suspicious osseous lesions.IMPRESSIONPeripherally enhancing 2.9 x 1.3 cm umbilical collection, previously 3.7 x2.2 cm. This collection is predominantly collapsed with only trace amountof fluid remaining and mild surrounding stranding.No acute findings in the abdomen or pelvis.Preliminary Report Dictated by Resident: Earnest Juares MD., have reviewed this study and agree with theabove report.[facility] [id number] 05:14:25Peripherally enhancing 2.9 x 1.3 cm umbilical collection, previously 3.7 x2.2 cm. This collection is predominantly collapsed with only trace amountof fluid remaining and mild surrounding stranding. No acute findings in the abdomen or pelvis. Preliminary Report Dictated by Resident: Earnest Garcia MD., have reviewed this study and agree with theabove report.CT ABDOMEN AND PELVIS WITH CONTRAST HISTORY: Abd pain, acute, generalized COMPARISON: None. TECHNIQUE: Contiguous axial imaging from the level of the lung basesthrough the proximal thighs was performed after the administration ofiodinated intravenous contrast. Coronal and sagittal reconstructions wereobtained. FINDINGS: LOWER THORAX: Mild bibasilar subsegmental atelectasis. LIVER: Liver measures 18 cm in craniocaudal dimension midclavicular line.No focal hepatic lesions identified. Normal hepatic surface contour. GALLBLADDER: Contracted gallbladder without radiopaque cholelithiasis. Nobiliary ductal dilatation. SPLEEN: No splenomegaly. PANCREAS: No ductal dilation or masses. ADRENAL GLANDS: No adrenal nodules. KIDNEYS: No hydronephrosis, stones, or masses. PERITONEUM AND RETROPERITONEUM: No free air or fluid. A peripherallyenhancing, hypodense collection within the umbilicus measuringapproximately 2.9 x 1.3 cm, previously about 3.7 x 3.2 cm. Mild surroundingsubcutaneous stranding. LYMPH NODES: No lymphadenopathy. GI TRACT: No dilation or abnormal wall thickening. Normal appendix. Mildlypatulous distal esophagus. PELVIS: Urinary bladder is normal for the degree of distention. VESSELS: Patent abdominal vasculature. BONES AND SOFT TISSUES: No aggressive or suspicious osseous lesions. [facility], Radiant Results In[facility] User - 04/21/2020 11:15 PM CSTCT ABDOMEN AND PELVIS WITH CONTRASTHISTORY: Abd pain, acute, generalized COMPARISON: None.TECHNIQUE: Contiguous axial imaging from the level of the lung basesthrough the proximal thighs was performed after the administration ofiodinated intravenous contrast.Coronal and sagittal reconstructions wereobtained.FINDINGS:LOWER THORAX: Mild bibasilar subsegmental atelectasis.LIVER: Liver measures 18 cm in craniocaudal dimension midclavicular line.No focal hepatic lesions identified. Normal hepatic surface contour.GALLBLADDER: Contracted gallbladder without radiopaque cholelithiasis. Nobiliary ductal dilatation.SPLEEN: No splenomegaly.PANCREAS: No ductal dilation or masses.ADRENAL GLANDS: No adrenal nodules.KIDNEYS: No hydronephrosis, stones, or masses.PERITONEUM AND RETROPERITONEUM: No free air or fluid. A peripherallyenhancing, hypodense collection within the umbilicus measuringapproximately 2.9 x 1.3 cm, previously about 3.7 x 3.2 cm. Mild surroundingsubcutaneous stranding.LYMPH NODES: No lymphadenopathy.GI TRACT: No dilation or abnormal wall thickening. Normal appendix. Mildlypatulous distal esophagus.PELVIS: Urinary bladder is normal for the degree of distention.VESSELS: Patent abdominal vasculature.BONES AND SOFT TISSUES: No aggressive or suspicious osseous lesions.IMPRESSIONPeripherally enhancing 2.9 x 1.3 cm umbilical collection, previously 3.7 x2.2 cm. This collection is predominantly collapsed with only trace amountof fluid remaining and mild surrounding stranding.No acute findings in the abdomen or pelvis.Preliminary Report Dictated by Resident: Earnest Juares MD., have reviewed this study and agree with theabove report.[facility] [id number] 05:14:25Peripherally enhancing 2.9 x 1.3 cm umbilical collection, previously 3.7 x2.2 cm. This collection is predominantly collapsed with only trace amountof fluid remaining and mild surrounding stranding. No acute findings in the abdomen or pelvis. Preliminary Report Dictated by Resident: Earnest Garcia MD., have reviewed this study and agree with theabove report.CT ABDOMEN AND PELVIS WITH CONTRAST HISTORY: Abd pain, acute, generalized COMPARISON: None. TECHNIQUE: Contiguous axial imaging from the level of the lung basesthrough the proximal thighs was performed after the administration ofiodinated intravenous contrast. Coronal and sagittal reconstructions wereobtained. FINDINGS: LOWER THORAX: Mild bibasilar subsegmental atelectasis. LIVER: Liver measures 18 cm in craniocaudal dimension midclavicular line.No focal hepatic lesions identified. Normal hepatic surface contour. GALLBLADDER: Contracted gallbladder without radiopaque cholelithiasis. Nobiliary ductal dilatation. SPLEEN: No splenomegaly. PANCREAS: No ductal dilation or masses. ADRENAL GLANDS: No adrenal nodules. KIDNEYS: No hydronephrosis, stones, or masses. PERITONEUM AND RETROPERITONEUM: No free air or fluid. A peripherallyenhancing, hypodense collection within the umbilicus measuringapproximately 2.9 x 1.3 cm, previously about 3.7 x 3.2 cm. Mild surroundingsubcutaneous stranding. LYMPH NODES: No lymphadenopathy. GI TRACT: No dilation or abnormal wall thickening. Normal appendix. Mildlypatulous distal esophagus. PELVIS: Urinary bladder is normal for the degree of distention. VESSELS: Patent abdominal vasculature. BONES AND SOFT TISSUES: No aggressive or suspicious osseous lesions. [facility], Radiant Results In[facility] User - 04/21/2020 11:15 PM CSTCT ABDOMEN AND PELVIS WITH CONTRASTHISTORY: Abd pain, acute, generalized COMPARISON: None.TECHNIQUE: Contiguous axial imaging from the level of the lung basesthrough the proximal thighs was performed after the administration ofiodinated intravenous contrast.Coronal and sagittal reconstructions wereobtained.FINDINGS:LOWER THORAX: Mild bibasilar subsegmental atelectasis.LIVER: Liver measures 18 cm in craniocaudal dimension midclavicular line.No focal hepatic lesions identified. Normal hepatic surface contour.GALLBLADDER: Contracted gallbladder without radiopaque cholelithiasis. Nobiliary ductal dilatation.SPLEEN: No splenomegaly.PANCREAS: No ductal dilation or masses.ADRENAL GLANDS: No adrenal nodules.KIDNEYS: No hydronephrosis, stones, or masses.PERITONEUM AND RETROPERITONEUM: No free air or fluid. A peripherallyenhancing, hypodense collection within the umbilicus measuringapproximately 2.9 x 1.3 cm, previously about 3.7 x 3.2 cm. Mild surroundingsubcutaneous stranding.LYMPH NODES: No lymphadenopathy.GI TRACT: No dilation or abnormal wall thickening. Normal appendix. Mildlypatulous distal esophagus.PELVIS: Urinary bladder is normal for the degree of distention.VESSELS: Patent abdominal vasculature.BONES AND SOFT TISSUES: No aggressive or suspicious osseous lesions.IMPRESSIONPeripherally enhancing 2.9 x 1.3 cm umbilical collection, previously 3.7 x2.2 cm. This collection is predominantly collapsed with only trace amountof fluid remaining and mild surrounding stranding.No acute findings in the abdomen or pelvis.Preliminary Report Dictated by Resident: Earnest Juares MD., have reviewed this study and agree with theabove report.[facility] [id number] 05:14:25Peripherally enhancing 2.9 x 1.3 cm umbilical collection, previously 3.7 x2.2 cm. This collection is predominantly collapsed with only trace amountof fluid remaining and mild surrounding stranding. No acute findings in the abdomen or pelvis. Preliminary Report Dictated by Resident: Earnest Garcia MD., have reviewed this study and agree with theabove report.CT ABDOMEN AND PELVIS WITH CONTRAST HISTORY: Abd pain, acute, generalized COMPARISON: None. TECHNIQUE: Contiguous axial imaging from the level of the lung basesthrough the proximal thighs was performed after the administration ofiodinated intravenous contrast. Coronal and sagittal reconstructions wereobtained. FINDINGS: LOWER THORAX: Mild bibasilar subsegmental atelectasis. LIVER: Liver measures 18 cm in craniocaudal dimension midclavicular line.No focal hepatic lesions identified. Normal hepatic surface contour. GALLBLADDER: Contracted gallbladder without radiopaque cholelithiasis. Nobiliary ductal dilatation. SPLEEN: No splenomegaly. PANCREAS: No ductal dilation or masses. ADRENAL GLANDS: No adrenal nodules. KIDNEYS: No hydronephrosis, stones, or masses. PERITONEUM AND RETROPERITONEUM: No free air or fluid. A peripherallyenhancing, hypodense collection within the umbilicus measuringapproximately 2.9 x 1.3 cm, previously about 3.7 x 3.2 cm. Mild surroundingsubcutaneous stranding. LYMPH NODES: No lymphadenopathy. GI TRACT: No dilation or abnormal wall thickening. Normal appendix. Mildlypatulous distal esophagus. PELVIS: Urinary bladder is normal for the degree of distention. VESSELS: Patent abdominal vasculature. BONES AND SOFT TISSUES: No aggressive or suspicious osseous lesions. [facility], [facility] Results [facility] User - 04/21/2020 11:15 PM CSTCT ABDOMEN AND PELVIS WITH CONTRASTHISTORY: Abd pain, acute, generalized COMPARISON: None.TECHNIQUE: Contiguous axial imaging from the level of the lung basesthrough the proximal thighs was performed after the administration ofiodinated intravenous contrast.Coronal and sagittal reconstructions wereobtained.FINDINGS:LOWER THORAX: Mild bibasilar subsegmental atelectasis.LIVER: Liver measures 18 cm in craniocaudal dimension midclavicular line.No focal hepatic lesions identified. Normal hepatic surface contour.GALLBLADDER: Contracted gallbladder without radiopaque cholelithiasis. Nobiliary ductal dilatation.SPLEEN: No splenomegaly.PANCREAS: No ductal dilation or masses.ADRENAL GLANDS: No adrenal nodules.KIDNEYS: No hydronephrosis, stones, or masses.PERITONEUM AND RETROPERITONEUM: No free air or fluid. A peripherallyenhancing, hypodense collection within the umbilicus measuringapproximately 2.9 x 1.3 cm, previously about 3.7 x 3.2 cm. Mild surroundingsubcutaneous stranding.LYMPH NODES: No lymphadenopathy.GI TRACT: No dilation or abnormal wall thickening. Normal appendix. Mildlypatulous distal esophagus.PELVIS: Urinary bladder is normal for the degree of distention.VESSELS: Patent abdominal vasculature.BONES AND SOFT TISSUES: No aggressive or suspicious osseous lesions.IMPRESSIONPeripherally enhancing 2.9 x 1.3 cm umbilical collection, previously 3.7 x2.2 cm. This collection is predominantly collapsed with only trace amountof fluid remaining and mild surrounding stranding.No acute findings in the abdomen or pelvis.Preliminary Report Dictated by Resident: Earnest Juares MD., have reviewed this study and agree with theabove report.[facility] [id number] 05:14:25Peripherally enhancing 2.9 x 1.3 cm umbilical collection, previously 3.7 x2.2 cm. This collection is predominantly collapsed with only trace amountof fluid remaining and mild surrounding stranding. No acute findings in the abdomen or pelvis. Preliminary Report Dictated by Resident: Earnest Garcia MD., have reviewed this study and agree with theabove report.CT ABDOMEN AND PELVIS WITH CONTRAST HISTORY: Abd pain, acute, generalized COMPARISON: None. TECHNIQUE: Contiguous axial imaging from the level of the lung basesthrough the proximal thighs was performed after the administration ofiodinated intravenous contrast. Coronal and sagittal reconstructions wereobtained. FINDINGS: LOWER THORAX: Mild bibasilar subsegmental atelectasis. LIVER: Liver measures 18 cm in craniocaudal dimension midclavicular line.No focal hepatic lesions identified. Normal hepatic surface contour. GALLBLADDER: Contracted gallbladder without radiopaque cholelithiasis. Nobiliary ductal dilatation. SPLEEN: No splenomegaly. PANCREAS: No ductal dilation or masses. ADRENAL GLANDS: No adrenal nodules. KIDNEYS: No hydronephrosis, stones, or masses. PERITONEUM AND RETROPERITONEUM: No free air or fluid. A peripherallyenhancing, hypodense collection within the umbilicus measuringapproximately 2.9 x 1.3 cm, previously about 3.7 x 3.2 cm. Mild surroundingsubcutaneous stranding. LYMPH NODES: No lymphadenopathy. GI TRACT: No dilation or abnormal wall thickening. Normal appendix. Mildlypatulous distal esophagus. PELVIS: Urinary bladder is normal for the degree of distention. VESSELS: Patent abdominal vasculature. BONES AND SOFT TISSUES: No aggressive or suspicious osseous lesions. [facility], [facility]iant Results [facility] User - 04/21/2020 11:15 PM CSTCT ABDOMEN AND PELVIS WITH CONTRASTHISTORY: Abd pain, acute, generalized COMPARISON: None.TECHNIQUE: Contiguous axial imaging from the level of the lung basesthrough the proximal thighs was performed after the administration ofiodinated intravenous contrast.Coronal and sagittal reconstructions wereobtained.FINDINGS:LOWER THORAX: Mild bibasilar subsegmental atelectasis.LIVER: Liver measures 18 cm in craniocaudal dimension midclavicular line.No focal hepatic lesions identified. Normal hepatic surface contour.GALLBLADDER: Contracted gallbladder without radiopaque cholelithiasis. Nobiliary ductal dilatation.SPLEEN: No splenomegaly.PANCREAS: No ductal dilation or masses.ADRENAL GLANDS: No adrenal nodules.KIDNEYS: No hydronephrosis, stones, or masses.PERITONEUM AND RETROPERITONEUM: No free air or fluid. A peripherallyenhancing, hypodense collection within the umbilicus measuringapproximately 2.9 x 1.3 cm, previously about 3.7 x 3.2 cm. Mild surroundingsubcutaneous stranding.LYMPH NODES: No lymphadenopathy.GI TRACT: No dilation or abnormal wall thickening. Normal appendix. Mildlypatulous distal esophagus.PELVIS: Urinary bladder is normal for the degree of distention.VESSELS: Patent abdominal vasculature.BONES AND SOFT TISSUES: No aggressive or suspicious osseous lesions.IMPRESSIONPeripherally enhancing 2.9 x 1.3 cm umbilical collection, previously 3.7 x2.2 cm. This collection is predominantly collapsed with only trace amountof fluid remaining and mild surrounding stranding.No acute findings in the abdomen or pelvis.Preliminary Report Dictated by Resident: Earnest Juares MD., have reviewed this study and agree with theabove report.[facility] [id number] 05:14:25Peripherally enhancing 2.9 x 1.3 cm umbilical collection, previously 3.7 x2.2 cm. This collection is predominantly collapsed with only trace amountof fluid remaining and mild surrounding stranding. No acute findings in the abdomen or pelvis. Preliminary Report Dictated by Resident: Earnest Garcia MD., have reviewed this study and agree with theabove report.CT ABDOMEN AND PELVIS WITH CONTRAST HISTORY: Abd pain, acute, generalized COMPARISON: None. TECHNIQUE: Contiguous axial imaging from the level of the lung basesthrough the proximal thighs was performed after the administration ofiodinated intravenous contrast. Coronal and sagittal reconstructions wereobtained. FINDINGS: LOWER THORAX: Mild bibasilar subsegmental atelectasis. LIVER: Liver measures 18 cm in craniocaudal dimension midclavicular line.No focal hepatic lesions identified. Normal hepatic surface contour. GALLBLADDER: Contracted gallbladder without radiopaque cholelithiasis. Nobiliary ductal dilatation. SPLEEN: No splenomegaly. PANCREAS: No ductal dilation or masses. ADRENAL GLANDS: No adrenal nodules. KIDNEYS: No hydronephrosis, stones, or masses. PERITONEUM AND RETROPERITONEUM: No free air or fluid. A peripherallyenhancing, hypodense collection within the umbilicus measuringapproximately 2.9 x 1.3 cm, previously about 3.7 x 3.2 cm. Mild surroundingsubcutaneous stranding. LYMPH NODES: No lymphadenopathy. GI TRACT: No dilation or abnormal wall thickening. Normal appendix. Mildlypatulous distal esophagus. PELVIS: Urinary bladder is normal for the degree of distention. VESSELS: Patent abdominal vasculature. BONES AND SOFT TISSUES: No aggressive or suspicious osseous lesions. [facility], [facility]iant Results In[facility] User - 04/21/2020 11:15 PM CSTCT ABDOMEN AND PELVIS WITH CONTRASTHISTORY: Abd pain, acute, generalized COMPARISON: None.TECHNIQUE: Contiguous axial imaging from the level of the lung basesthrough the proximal thighs was performed after the administration ofiodinated intravenous contrast.Coronal and sagittal reconstructions wereobtained.FINDINGS:LOWER THORAX: Mild bibasilar subsegmental atelectasis.LIVER: Liver measures 18 cm in craniocaudal dimension midclavicular line.No focal hepatic lesions identified. Normal hepatic surface contour.GALLBLADDER: Contracted gallbladder without radiopaque cholelithiasis. Nobiliary ductal dilatation.SPLEEN: No splenomegaly.PANCREAS: No ductal dilation or masses.ADRENAL GLANDS: No adrenal nodules.KIDNEYS: No hydronephrosis, stones, or masses.PERITONEUM AND RETROPERITONEUM: No free air or fluid. A peripherallyenhancing, hypodense collection within the umbilicus measuringapproximately 2.9 x 1.3 cm, previously about 3.7 x 3.2 cm. Mild surroundingsubcutaneous stranding.LYMPH NODES: No lymphadenopathy.GI TRACT: No dilation or abnormal wall thickening. Normal appendix. Mildlypatulous distal esophagus.PELVIS: Urinary bladder is normal for the degree of distention.VESSELS: Patent abdominal vasculature.BONES AND SOFT TISSUES: No aggressive or suspicious osseous lesions.IMPRESSIONPeripherally enhancing 2.9 x 1.3 cm umbilical collection, previously 3.7 x2.2 cm. This collection is predominantly collapsed with only trace amountof fluid remaining and mild surrounding stranding.No acute findings in the abdomen or pelvis.Preliminary Report Dictated by Resident: Earnest Juares MD., have reviewed this study and agree with theabove report.[facility] [id number] 05:14:25Peripherally enhancing 2.9 x 1.3 cm umbilical collection, previously 3.7 x2.2 cm. This collection is predominantly collapsed with only trace amountof fluid remaining and mild surrounding stranding. No acute findings in the abdomen or pelvis. Preliminary Report Dictated by Resident: Earnest Garcia MD., have reviewed this study and agree with theabove report.CT ABDOMEN AND PELVIS WITH CONTRAST HISTORY: Abd pain, acute, generalized COMPARISON: None. TECHNIQUE: Contiguous axial imaging from the level of the lung basesthrough the proximal thighs was performed after the administration ofiodinated intravenous contrast. Coronal and sagittal reconstructions wereobtained. FINDINGS: LOWER THORAX: Mild bibasilar subsegmental atelectasis. LIVER: Liver measures 18 cm in craniocaudal dimension midclavicular line.No focal hepatic lesions identified. Normal hepatic surface contour. GALLBLADDER: Contracted gallbladder without radiopaque cholelithiasis. Nobiliary ductal dilatation. SPLEEN: No splenomegaly. PANCREAS: No ductal dilation or masses. ADRENAL GLANDS: No adrenal nodules. KIDNEYS: No hydronephrosis, stones, or masses. PERITONEUM AND RETROPERITONEUM: No free air or fluid. A peripherallyenhancing, hypodense collection within the umbilicus measuringapproximately 2.9 x 1.3 cm, previously about 3.7 x 3.2 cm. Mild surroundingsubcutaneous stranding. LYMPH NODES: No lymphadenopathy. GI TRACT: No dilation or abnormal wall thickening. Normal appendix. Mildlypatulous distal esophagus. PELVIS: Urinary bladder is normal for the degree of distention. VESSELS: Patent abdominal vasculature. BONES AND SOFT TISSUES: No aggressive or suspicious osseous lesions. [facility], [facility]iant Results In[facility] User - 04/21/2020 11:15 PM CSTCT ABDOMEN AND PELVIS WITH CONTRASTHISTORY: Abd pain, acute, generalized COMPARISON: None.TECHNIQUE: Contiguous axial imaging from the level of the lung basesthrough the proximal thighs was performed after the administration ofiodinated intravenous contrast.Coronal and sagittal reconstructions wereobtained.FINDINGS:LOWER THORAX: Mild bibasilar subsegmental atelectasis.LIVER: Liver measures 18 cm in craniocaudal dimension midclavicular line.No focal hepatic lesions identified. Normal hepatic surface contour.GALLBLADDER: Contracted gallbladder without radiopaque cholelithiasis. Nobiliary ductal dilatation.SPLEEN: No splenomegaly.PANCREAS: No ductal dilation or masses.ADRENAL GLANDS: No adrenal nodules.KIDNEYS: No hydronephrosis, stones, or masses.PERITONEUM AND RETROPERITONEUM: No free air or fluid. A peripherallyenhancing, hypodense collection within the umbilicus measuringapproximately 2.9 x 1.3 cm, previously about 3.7 x 3.2 cm. Mild surroundingsubcutaneous stranding.LYMPH NODES: No lymphadenopathy.GI TRACT: No dilation or abnormal wall thickening. Normal appendix. Mildlypatulous distal esophagus.PELVIS: Urinary bladder is normal for the degree of distention.VESSELS: Patent abdominal vasculature.BONES AND SOFT TISSUES: No aggressive or suspicious osseous lesions.IMPRESSIONPeripherally enhancing 2.9 x 1.3 cm umbilical collection, previously 3.7 x2.2 cm. This collection is predominantly collapsed with only trace amountof fluid remaining and mild surrounding stranding.No acute findings in the abdomen or pelvis.Preliminary Report Dictated by Resident: Earnest Juares MD., have reviewed this study and agree with theabove report.[facility] [id number] 05:14:25Peripherally enhancing 2.9 x 1.3 cm umbilical collection, previously 3.7 x2.2 cm. This collection is predominantly collapsed with only trace amountof fluid remaining and mild surrounding stranding. No acute findings in the abdomen or pelvis. Preliminary Report Dictated by Resident: Earnest Garcia MD., have reviewed this study and agree with theabove report.CT ABDOMEN AND PELVIS WITH CONTRAST HISTORY: Abd pain, acute, generalized COMPARISON: None. TECHNIQUE: Contiguous axial imaging from the level of the lung basesthrough the proximal thighs was performed after the administration ofiodinated intravenous contrast. Coronal and sagittal reconstructions wereobtained. FINDINGS: LOWER THORAX: Mild bibasilar subsegmental atelectasis. LIVER: Liver measures 18 cm in craniocaudal dimension midclavicular line.No focal hepatic lesions identified. Normal hepatic surface contour. GALLBLADDER: Contracted gallbladder without radiopaque cholelithiasis. Nobiliary ductal dilatation. SPLEEN: No splenomegaly. PANCREAS: No ductal dilation or masses. ADRENAL GLANDS: No adrenal nodules. KIDNEYS: No hydronephrosis, stones, or masses. PERITONEUM AND RETROPERITONEUM: No free air or fluid. A peripherallyenhancing, hypodense collection within the umbilicus measuringapproximately 2.9 x 1.3 cm, previously about 3.7 x 3.2 cm. Mild surroundingsubcutaneous stranding. LYMPH NODES: No lymphadenopathy. GI TRACT: No dilation or abnormal wall thickening. Normal appendix. Mildlypatulous distal esophagus. PELVIS: Urinary bladder is normal for the degree of distention. VESSELS: Patent abdominal vasculature. BONES AND SOFT TISSUES: No aggressive or suspicious osseous lesions. [facility], Radiant Results In[facility] User - 04/21/2020 11:15 PM CSTCT ABDOMEN AND PELVIS WITH CONTRASTHISTORY: Abd pain, acute, generalized COMPARISON: None.TECHNIQUE: Contiguous axial imaging from the level of the lung basesthrough the proximal thighs was performed after the administration ofiodinated intravenous contrast.Coronal and sagittal reconstructions wereobtained.FINDINGS:LOWER THORAX: Mild bibasilar subsegmental atelectasis.LIVER: Liver measures 18 cm in craniocaudal dimension midclavicular line.No focal hepatic lesions identified. Normal hepatic surface contour.GALLBLADDER: Contracted gallbladder without radiopaque cholelithiasis. Nobiliary ductal dilatation.SPLEEN: No splenomegaly.PANCREAS: No ductal dilation or masses.ADRENAL GLANDS: No adrenal nodules.KIDNEYS: No hydronephrosis, stones, or masses.PERITONEUM AND RETROPERITONEUM: No free air or fluid. A peripherallyenhancing, hypodense collection within the umbilicus measuringapproximately 2.9 x 1.3 cm, previously about 3.7 x 3.2 cm. Mild surroundingsubcutaneous stranding.LYMPH NODES: No lymphadenopathy.GI TRACT: No dilation or abnormal wall thickening. Normal appendix. Mildlypatulous distal esophagus.PELVIS: Urinary bladder is normal for the degree of distention.VESSELS: Patent abdominal vasculature.BONES AND SOFT TISSUES: No aggressive or suspicious osseous lesions.IMPRESSIONPeripherally enhancing 2.9 x 1.3 cm umbilical collection, previously 3.7 x2.2 cm. This collection is predominantly collapsed with only trace amountof fluid remaining and mild surrounding stranding.No acute findings in the abdomen or pelvis.Preliminary Report Dictated by Resident: Earnest Juares MD., have reviewed this study and agree with theabove report.[facility] [id number] 05:14:25Peripherally enhancing 2.9 x 1.3 cm umbilical collection, previously 3.7 x2.2 cm. This collection is predominantly collapsed with only trace amountof fluid remaining and mild surrounding stranding. No acute findings in the abdomen or pelvis. Preliminary Report Dictated by Resident: Earnest Garcia MD., have reviewed this study and agree with theabove report.CT ABDOMEN AND PELVIS WITH CONTRAST HISTORY: Abd pain, acute, generalized COMPARISON: None. TECHNIQUE: Contiguous axial imaging from the level of the lung basesthrough the proximal thighs was performed after the administration ofiodinated intravenous contrast. Coronal and sagittal reconstructions wereobtained. FINDINGS: LOWER THORAX: Mild bibasilar subsegmental atelectasis. LIVER: Liver measures 18 cm in craniocaudal dimension midclavicular line.No focal hepatic lesions identified. Normal hepatic surface contour. GALLBLADDER: Contracted gallbladder without radiopaque cholelithiasis. Nobiliary ductal dilatation. SPLEEN: No splenomegaly. PANCREAS: No ductal dilation or masses. ADRENAL GLANDS: No adrenal nodules. KIDNEYS: No hydronephrosis, stones, or masses. PERITONEUM AND RETROPERITONEUM: No free air or fluid. A peripherallyenhancing, hypodense collection within the umbilicus measuringapproximately 2.9 x 1.3 cm, previously about 3.7 x 3.2 cm. Mild surroundingsubcutaneous stranding. LYMPH NODES: No lymphadenopathy. GI TRACT: No dilation or abnormal wall thickening. Normal appendix. Mildlypatulous distal esophagus. PELVIS: Urinary bladder is normal for the degree of distention. VESSELS: Patent abdominal vasculature. BONES AND SOFT TISSUES: No aggressive or suspicious osseous lesions. [facility], Radiant Results In[facility] User - 04/21/2020 11:15 PM CSTCT ABDOMEN AND PELVIS WITH CONTRASTHISTORY: Abd pain, acute, generalized COMPARISON: None.TECHNIQUE: Contiguous axial imaging from the level of the lung basesthrough the proximal thighs was performed after the administration ofiodinated intravenous contrast.Coronal and sagittal reconstructions wereobtained.FINDINGS:LOWER THORAX: Mild bibasilar subsegmental atelectasis.LIVER: Liver measures 18 cm in craniocaudal dimension midclavicular line.No focal hepatic lesions identified. Normal hepatic surface contour.GALLBLADDER: Contracted gallbladder without radiopaque cholelithiasis. Nobiliary ductal dilatation.SPLEEN: No splenomegaly.PANCREAS: No ductal dilation or masses.ADRENAL GLANDS: No adrenal nodules.KIDNEYS: No hydronephrosis, stones, or masses.PERITONEUM AND RETROPERITONEUM: No free air or fluid. A peripherallyenhancing, hypodense collection within the umbilicus measuringapproximately 2.9 x 1.3 cm, previously about 3.7 x 3.2 cm. Mild surroundingsubcutaneous stranding.LYMPH NODES: No lymphadenopathy.GI TRACT: No dilation or abnormal wall thickening. Normal appendix. Mildlypatulous distal esophagus.PELVIS: Urinary bladder is normal for the degree of distention.VESSELS: Patent abdominal vasculature.BONES AND SOFT TISSUES: No aggressive or suspicious osseous lesions.IMPRESSIONPeripherally enhancing 2.9 x 1.3 cm umbilical collection, previously 3.7 x2.2 cm. This collection is predominantly collapsed with only trace amountof fluid remaining and mild surrounding stranding.No acute findings in the abdomen or pelvis.Preliminary Report Dictated by Resident: Earnest Juares MD., have reviewed this study and agree with theabove report.[facility] [id number] 05:14:25Peripherally enhancing 2.9 x 1.3 cm umbilical collection, previously 3.7 x2.2 cm. This collection is predominantly collapsed with only trace amountof fluid remaining and mild surrounding stranding. No acute findings in the abdomen or pelvis. Preliminary Report Dictated by Resident: Earnest Garcia MD., have reviewed this study and agree with theabove report.CT ABDOMEN AND PELVIS WITH CONTRAST HISTORY: Abd pain, acute, generalized COMPARISON: None. TECHNIQUE: Contiguous axial imaging from the level of the lung basesthrough the proximal thighs was performed after the administration ofiodinated intravenous contrast. Coronal and sagittal reconstructions wereobtained. FINDINGS: LOWER THORAX: Mild bibasilar subsegmental atelectasis. LIVER: Liver measures 18 cm in craniocaudal dimension midclavicular line.No focal hepatic lesions identified. Normal hepatic surface contour. GALLBLADDER: Contracted gallbladder without radiopaque cholelithiasis. Nobiliary ductal dilatation. SPLEEN: No splenomegaly. PANCREAS: No ductal dilation or masses. ADRENAL GLANDS: No adrenal nodules. KIDNEYS: No hydronephrosis, stones, or masses. PERITONEUM AND RETROPERITONEUM: No free air or fluid. A peripherallyenhancing, hypodense collection within the umbilicus measuringapproximately 2.9 x 1.3 cm, previously about 3.7 x 3.2 cm. Mild surroundingsubcutaneous stranding. LYMPH NODES: No lymphadenopathy. GI TRACT: No dilation or abnormal wall thickening. Normal appendix. Mildlypatulous distal esophagus. PELVIS: Urinary bladder is normal for the degree of distention. VESSELS: Patent abdominal vasculature. BONES AND SOFT TISSUES: No aggressive or suspicious osseous lesions. [facility], Radiant Results Inft User - 04/21/2020 11:15 PM CSTCT ABDOMEN AND PELVIS WITH CONTRASTHISTORY: Abd pain, acute, generalized COMPARISON: None.TECHNIQUE: Contiguous axial imaging from the level of the lung basesthrough the proximal thighs was performed after the administration ofiodinated intravenous contrast.Coronal and sagittal reconstructions wereobtained.FINDINGS:LOWER THORAX: Mild bibasilar subsegmental atelectasis.LIVER: Liver measures 18 cm in craniocaudal dimension midclavicular line.No focal hepatic lesions identified. Normal hepatic surface contour.GALLBLADDER: Contracted gallbladder without radiopaque cholelithiasis. Nobiliary ductal dilatation.SPLEEN: No splenomegaly.PANCREAS: No ductal dilation or masses.ADRENAL GLANDS: No adrenal nodules.KIDNEYS: No hydronephrosis, stones, or masses.PERITONEUM AND RETROPERITONEUM: No free air or fluid. A peripherallyenhancing, hypodense collection within the umbilicus measuringapproximately 2.9 x 1.3 cm, previously about 3.7 x 3.2 cm. Mild surroundingsubcutaneous stranding.LYMPH NODES: No lymphadenopathy.GI TRACT: No dilation or abnormal wall thickening. Normal appendix. Mildlypatulous distal esophagus.PELVIS: Urinary bladder is normal for the degree of distention.VESSELS: Patent abdominal vasculature.BONES AND SOFT TISSUES: No aggressive or suspicious osseous lesions.IMPRESSIONPeripherally enhancing 2.9 x 1.3 cm umbilical collection, previously 3.7 x2.2 cm. This collection is predominantly collapsed with only trace amountof fluid remaining and mild surrounding stranding.No acute findings in the abdomen or pelvis.Preliminary Report Dictated by Resident: Earnest Juares MD., have reviewed this study and agree with theabove report.[facility] [id number] 05:14:25Peripherally enhancing 2.9 x 1.3 cm umbilical collection, previously 3.7 x2.2 cm. This collection is predominantly collapsed with only trace amountof fluid remaining and mild surrounding stranding. No acute findings in the abdomen or pelvis. Preliminary Report Dictated by Resident: Earnest Garcia MD., have reviewed this study and agree with theabove report.CT ABDOMEN AND PELVIS WITH CONTRAST HISTORY: Abd pain, acute, generalized COMPARISON: None. TECHNIQUE: Contiguous axial imaging from the level of the lung basesthrough the proximal thighs was performed after the administration ofiodinated intravenous contrast. Coronal and sagittal reconstructions wereobtained. FINDINGS: LOWER THORAX: Mild bibasilar subsegmental atelectasis. LIVER: Liver measures 18 cm in craniocaudal dimension midclavicular line.No focal hepatic lesions identified. Normal hepatic surface contour. GALLBLADDER: Contracted gallbladder without radiopaque cholelithiasis. Nobiliary ductal dilatation. SPLEEN: No splenomegaly. PANCREAS: No ductal dilation or masses. ADRENAL GLANDS: No adrenal nodules. KIDNEYS: No hydronephrosis, stones, or masses. PERITONEUM AND RETROPERITONEUM: No free air or fluid. A peripherallyenhancing, hypodense collection within the umbilicus measuringapproximately 2.9 x 1.3 cm, previously about 3.7 x 3.2 cm. Mild surroundingsubcutaneous stranding. LYMPH NODES: No lymphadenopathy. GI TRACT: No dilation or abnormal wall thickening. Normal appendix. Mildlypatulous distal esophagus. PELVIS: Urinary bladder is normal for the degree of distention. VESSELS: Patent abdominal vasculature. BONES AND SOFT TISSUES: No aggressive or suspicious osseous lesions. [facility], [facility] Results In[facility] User - 04/21/2020 11:15 PM CSTCT ABDOMEN AND PELVIS WITH CONTRASTHISTORY: Abd pain, acute, generalized COMPARISON: None.TECHNIQUE: Contiguous axial imaging from the level of the lung basesthrough the proximal thighs was performed after the administration ofiodinated intravenous contrast.Coronal and sagittal reconstructions wereobtained.FINDINGS:LOWER THORAX: Mild bibasilar subsegmental atelectasis.LIVER: Liver measures 18 cm in craniocaudal dimension midclavicular line.No focal hepatic lesions identified. Normal hepatic surface contour.GALLBLADDER: Contracted gallbladder without radiopaque cholelithiasis. Nobiliary ductal dilatation.SPLEEN: No splenomegaly.PANCREAS: No ductal dilation or masses.ADRENAL GLANDS: No adrenal nodules.KIDNEYS: No hydronephrosis, stones, or masses.PERITONEUM AND RETROPERITONEUM: No free air or fluid. A peripherallyenhancing, hypodense collection within the umbilicus measuringapproximately 2.9 x 1.3 cm, previously about 3.7 x 3.2 cm. Mild surroundingsubcutaneous stranding.LYMPH NODES: No lymphadenopathy.GI TRACT: No dilation or abnormal wall thickening. Normal appendix. Mildlypatulous distal esophagus.PELVIS: Urinary bladder is normal for the degree of distention.VESSELS: Patent abdominal vasculature.BONES AND SOFT TISSUES: No aggressive or suspicious osseous lesions.IMPRESSIONPeripherally enhancing 2.9 x 1.3 cm umbilical collection, previously 3.7 x2.2 cm. This collection is predominantly collapsed with only trace amountof fluid remaining and mild surrounding stranding.No acute findings in the abdomen or pelvis.Preliminary Report Dictated by Resident: Earnest Juares MD., have reviewed this study and agree with theabove report.[facility] [id number] 05:14:25Peripherally enhancing 2.9 x 1.3 cm umbilical collection, previously 3.7 x2.2 cm. This collection is predominantly collapsed with only trace amountof fluid remaining and mild surrounding stranding. No acute findings in the abdomen or pelvis. Preliminary Report Dictated by Resident: Earnest Garcia MD., have reviewed this study and agree with theabove report.CT ABDOMEN AND PELVIS WITH CONTRAST HISTORY: Abd pain, acute, generalized COMPARISON: None. TECHNIQUE: Contiguous axial imaging from the level of the lung basesthrough the proximal thighs was performed after the administration ofiodinated intravenous contrast. Coronal and sagittal reconstructions wereobtained. FINDINGS: LOWER THORAX: Mild bibasilar subsegmental atelectasis. LIVER: Liver measures 18 cm in craniocaudal dimension midclavicular line.No focal hepatic lesions identified. Normal hepatic surface contour. GALLBLADDER: Contracted gallbladder without radiopaque cholelithiasis. Nobiliary ductal dilatation. SPLEEN: No splenomegaly. PANCREAS: No ductal dilation or masses. ADRENAL GLANDS: No adrenal nodules. KIDNEYS: No hydronephrosis, stones, or masses. PERITONEUM AND RETROPERITONEUM: No free air or fluid. A peripherallyenhancing, hypodense collection within the umbilicus measuringapproximately 2.9 x 1.3 cm, previously about 3.7 x 3.2 cm. Mild surroundingsubcutaneous stranding. LYMPH NODES: No lymphadenopathy. GI TRACT: No dilation or abnormal wall thickening. Normal appendix. Mildlypatulous distal esophagus. PELVIS: Urinary bladder is normal for the degree of distention. VESSELS: Patent abdominal vasculature. BONES AND SOFT TISSUES: No aggressive or suspicious osseous lesions. [facility], [facility]iant Results In[facility] User - 04/21/2020 11:15 PM CSTCT ABDOMEN AND PELVIS WITH CONTRASTHISTORY: Abd pain, acute, generalized COMPARISON: None.TECHNIQUE: Contiguous axial imaging from the level of the lung basesthrough the proximal thighs was performed after the administration ofiodinated intravenous contrast.Coronal and sagittal reconstructions wereobtained.FINDINGS:LOWER THORAX: Mild bibasilar subsegmental atelectasis.LIVER: Liver measures 18 cm in craniocaudal dimension midclavicular line.No focal hepatic lesions identified. Normal hepatic surface contour.GALLBLADDER: Contracted gallbladder without radiopaque cholelithiasis. Nobiliary ductal dilatation.SPLEEN: No splenomegaly.PANCREAS: No ductal dilation or masses.ADRENAL GLANDS: No adrenal nodules.KIDNEYS: No hydronephrosis, stones, or masses.PERITONEUM AND RETROPERITONEUM: No free air or fluid. A peripherallyenhancing, hypodense collection within the umbilicus measuringapproximately 2.9 x 1.3 cm, previously about 3.7 x 3.2 cm. Mild surroundingsubcutaneous stranding.LYMPH NODES: No lymphadenopathy.GI TRACT: No dilation or abnormal wall thickening. Normal appendix. Mildlypatulous distal esophagus.PELVIS: Urinary bladder is normal for the degree of distention.VESSELS: Patent abdominal vasculature.BONES AND SOFT TISSUES: No aggressive or suspicious osseous lesions.IMPRESSIONPeripherally enhancing 2.9 x 1.3 cm umbilical collection, previously 3.7 x2.2 cm. This collection is predominantly collapsed with only trace amountof fluid remaining and mild surrounding stranding.No acute findings in the abdomen or pelvis.Preliminary Report Dictated by Resident: Earnest Juares MD., have reviewed this study and agree with theabove report.[facility] [id number] 05:14:25Peripherally enhancing 2.9 x 1.3 cm umbilical collection, previously 3.7 x2.2 cm. This collection is predominantly collapsed with only trace amountof fluid remaining and mild surrounding stranding. No acute findings in the abdomen or pelvis. Preliminary Report Dictated by Resident: Earnest Garcia MD., have reviewed this study and agree with theabove report.CT ABDOMEN AND PELVIS WITH CONTRAST HISTORY: Abd pain, acute, generalized COMPARISON: None. TECHNIQUE: Contiguous axial imaging from the level of the lung basesthrough the proximal thighs was performed after the administration ofiodinated intravenous contrast. Coronal and sagittal reconstructions wereobtained. FINDINGS: LOWER THORAX: Mild bibasilar subsegmental atelectasis. LIVER: Liver measures 18 cm in craniocaudal dimension midclavicular line.No focal hepatic lesions identified. Normal hepatic surface contour. GALLBLADDER: Contracted gallbladder without radiopaque cholelithiasis. Nobiliary ductal dilatation. SPLEEN: No splenomegaly. PANCREAS: No ductal dilation or masses. ADRENAL GLANDS: No adrenal nodules. KIDNEYS: No hydronephrosis, stones, or masses. PERITONEUM AND RETROPERITONEUM: No free air or fluid. A peripherallyenhancing, hypodense collection within the umbilicus measuringapproximately 2.9 x 1.3 cm, previously about 3.7 x 3.2 cm. Mild surroundingsubcutaneous stranding. LYMPH NODES: No lymphadenopathy. GI TRACT: No dilation or abnormal wall thickening. Normal appendix. Mildlypatulous distal esophagus. PELVIS: Urinary bladder is normal for the degree of distention. VESSELS: Patent abdominal vasculature. BONES AND SOFT TISSUES: No aggressive or suspicious osseous lesions. [facility], Radiant Results Inft User - 04/21/2020 11:15 PM CSTCT ABDOMEN AND PELVIS WITH CONTRASTHISTORY: Abd pain, acute, generalized COMPARISON: None.TECHNIQUE: Contiguous axial imaging from the level of the lung basesthrough the proximal thighs was performed after the administration ofiodinated intravenous contrast.Coronal and sagittal reconstructions wereobtained.FINDINGS:LOWER THORAX: Mild bibasilar subsegmental atelectasis.LIVER: Liver measures 18 cm in craniocaudal dimension midclavicular line.No focal hepatic lesions identified. Normal hepatic surface contour.GALLBLADDER: Contracted gallbladder without radiopaque cholelithiasis. Nobiliary ductal dilatation.SPLEEN: No splenomegaly.PANCREAS: No ductal dilation or masses.ADRENAL GLANDS: No adrenal nodules.KIDNEYS: No hydronephrosis, stones, or masses.PERITONEUM AND RETROPERITONEUM: No free air or fluid. A peripherallyenhancing, hypodense collection within the umbilicus measuringapproximately 2.9 x 1.3 cm, previously about 3.7 x 3.2 cm. Mild surroundingsubcutaneous stranding.LYMPH NODES: No lymphadenopathy.GI TRACT: No dilation or abnormal wall thickening. Normal appendix. Mildlypatulous distal esophagus.PELVIS: Urinary bladder is normal for the degree of distention.VESSELS: Patent abdominal vasculature.BONES AND SOFT TISSUES: No aggressive or suspicious osseous lesions.IMPRESSIONPeripherally enhancing 2.9 x 1.3 cm umbilical collection, previously 3.7 x2.2 cm. This collection is predominantly collapsed with only trace amountof fluid remaining and mild surrounding stranding.No acute findings in the abdomen or pelvis.Preliminary Report Dictated by Resident: Earnest Juares MD., have reviewed this study and agree with theabove report.[facility] [id number] 05:14:25Peripherally enhancing 2.9 x 1.3 cm umbilical collection, previously 3.7 x2.2 cm. This collection is predominantly collapsed with only trace amountof fluid remaining and mild surrounding stranding. No acute findings in the abdomen or pelvis. Preliminary Report Dictated by Resident: Earnest Garcia MD., have reviewed this study and agree with theabove report.CT ABDOMEN AND PELVIS WITH CONTRAST HISTORY: Abd pain, acute, generalized COMPARISON: None. TECHNIQUE: Contiguous axial imaging from the level of the lung basesthrough the proximal thighs was performed after the administration ofiodinated intravenous contrast. Coronal and sagittal reconstructions wereobtained. FINDINGS: LOWER THORAX: Mild bibasilar subsegmental atelectasis. LIVER: Liver measures 18 cm in craniocaudal dimension midclavicular line.No focal hepatic lesions identified. Normal hepatic surface contour. GALLBLADDER: Contracted gallbladder without radiopaque cholelithiasis. Nobiliary ductal dilatation. SPLEEN: No splenomegaly. PANCREAS: No ductal dilation or masses. ADRENAL GLANDS: No adrenal nodules. KIDNEYS: No hydronephrosis, stones, or masses. PERITONEUM AND RETROPERITONEUM: No free air or fluid. A peripherallyenhancing, hypodense collection within the umbilicus measuringapproximately 2.9 x 1.3 cm, previously about 3.7 x 3.2 cm. Mild surroundingsubcutaneous stranding. LYMPH NODES: No lymphadenopathy. GI TRACT: No dilation or abnormal wall thickening. Normal appendix. Mildlypatulous distal esophagus. PELVIS: Urinary bladder is normal for the degree of distention. VESSELS: Patent abdominal vasculature. BONES AND SOFT TISSUES: No aggressive or suspicious osseous lesions. [facility], Radiant Results In[facility] User - 04/21/2020 11:15 PM CSTCT ABDOMEN AND PELVIS WITH CONTRASTHISTORY: Abd pain, acute, generalized COMPARISON: None.TECHNIQUE: Contiguous axial imaging from the level of the lung basesthrough the proximal thighs was performed after the administration ofiodinated intravenous contrast.Coronal and sagittal reconstructions wereobtained.FINDINGS:LOWER THORAX: Mild bibasilar subsegmental atelectasis.LIVER: Liver measures 18 cm in craniocaudal dimension midclavicular line.No focal hepatic lesions identified. Normal hepatic surface contour.GALLBLADDER: Contracted gallbladder without radiopaque cholelithiasis. Nobiliary ductal dilatation.SPLEEN: No splenomegaly.PANCREAS: No ductal dilation or masses.ADRENAL GLANDS: No adrenal nodules.KIDNEYS: No hydronephrosis, stones, or masses.PERITONEUM AND RETROPERITONEUM: No free air or fluid. A peripherallyenhancing, hypodense collection within the umbilicus measuringapproximately 2.9 x 1.3 cm, previously about 3.7 x 3.2 cm. Mild surroundingsubcutaneous stranding.LYMPH NODES: No lymphadenopathy.GI TRACT: No dilation or abnormal wall thickening. Normal appendix. Mildlypatulous distal esophagus.PELVIS: Urinary bladder is normal for the degree of distention.VESSELS: Patent abdominal vasculature.BONES AND SOFT TISSUES: No aggressive or suspicious osseous lesions.IMPRESSIONPeripherally enhancing 2.9 x 1.3 cm umbilical collection, previously 3.7 x2.2 cm. This collection is predominantly collapsed with only trace amountof fluid remaining and mild surrounding stranding.No acute findings in the abdomen or pelvis.Preliminary Report Dictated by Resident: Earnest Juares MD., have reviewed this study and agree with theabove report.[facility] [id number] 05:14:25Peripherally enhancing 2.9 x 1.3 cm umbilical collection, previously 3.7 x2.2 cm. This collection is predominantly collapsed with only trace amountof fluid remaining and mild surrounding stranding. No acute findings in the abdomen or pelvis. Preliminary Report Dictated by Resident: Earnest Garcia MD., have reviewed this study and agree with theabove report.CT ABDOMEN AND PELVIS WITH CONTRAST HISTORY: Abd pain, acute, generalized COMPARISON: None. TECHNIQUE: Contiguous axial imaging from the level of the lung basesthrough the proximal thighs was performed after the administration ofiodinated intravenous contrast. Coronal and sagittal reconstructions wereobtained. FINDINGS: LOWER THORAX: Mild bibasilar subsegmental atelectasis. LIVER: Liver measures 18 cm in craniocaudal dimension midclavicular line.No focal hepatic lesions identified. Normal hepatic surface contour. GALLBLADDER: Contracted gallbladder without radiopaque cholelithiasis. Nobiliary ductal dilatation. SPLEEN: No splenomegaly. PANCREAS: No ductal dilation or masses. ADRENAL GLANDS: No adrenal nodules. KIDNEYS: No hydronephrosis, stones, or masses. PERITONEUM AND RETROPERITONEUM: No free air or fluid. A peripherallyenhancing, hypodense collection within the umbilicus measuringapproximately 2.9 x 1.3 cm, previously about 3.7 x 3.2 cm. Mild surroundingsubcutaneous stranding. LYMPH NODES: No lymphadenopathy. GI TRACT: No dilation or abnormal wall thickening. Normal appendix. Mildlypatulous distal esophagus. PELVIS: Urinary bladder is normal for the degree of distention. VESSELS: Patent abdominal vasculature. BONES AND SOFT TISSUES: No aggressive or suspicious osseous lesions. [facility], Radiant Results Inft User - 04/21/2020 11:15 PM CSTCT ABDOMEN AND PELVIS WITH CONTRASTHISTORY: Abd pain, acute, generalized COMPARISON: None.TECHNIQUE: Contiguous axial imaging from the level of the lung basesthrough the proximal thighs was performed after the administration ofiodinated intravenous contrast.Coronal and sagittal reconstructions wereobtained.FINDINGS:LOWER THORAX: Mild bibasilar subsegmental atelectasis.LIVER: Liver measures 18 cm in craniocaudal dimension midclavicular line.No focal hepatic lesions identified. Normal hepatic surface contour.GALLBLADDER: Contracted gallbladder without radiopaque cholelithiasis. Nobiliary ductal dilatation.SPLEEN: No splenomegaly.PANCREAS: No ductal dilation or masses.ADRENAL GLANDS: No adrenal nodules.KIDNEYS: No hydronephrosis, stones, or masses.PERITONEUM AND RETROPERITONEUM: No free air or fluid. A peripherallyenhancing, hypodense collection within the umbilicus measuringapproximately 2.9 x 1.3 cm, previously about 3.7 x 3.2 cm. Mild surroundingsubcutaneous stranding.LYMPH NODES: No lymphadenopathy.GI TRACT: No dilation or abnormal wall thickening. Normal appendix. Mildlypatulous distal esophagus.PELVIS: Urinary bladder is normal for the degree of distention.VESSELS: Patent abdominal vasculature.BONES AND SOFT TISSUES: No aggressive or suspicious osseous lesions.IMPRESSIONPeripherally enhancing 2.9 x 1.3 cm umbilical collection, previously 3.7 x2.2 cm. This collection is predominantly collapsed with only trace amountof fluid remaining and mild surrounding stranding.No acute findings in the abdomen or pelvis.Preliminary Report Dictated by Resident: Earnest Juares MD., have reviewed this study and agree with theabove report.[facility]inalysis[facility]21-[facility] 05:11:00* Test Item Value Reference Range Interpretation Comme nts APPEARANCE (test code = 2117302855) Clear Clear COLOR (test code = 5933484375) Colorless Yellow A PH (test code = 9435056268) 4.8-8.0 SP GRAVITY (test code = 1814029707) 1.003-1.030 GLU U QUAL (test code = 1667030729) Normal Normal BLOOD (test code = 5366611989) Negative Negative KETONES (test code = 4826237932) Negative Negative PROTEIN (test code = 2887-8) Negative Negative UROBILIN (test code = 6265118899) Normal Normal BILIRUBIN (test code = 1537397812) Negative Negative NITRITE (test code = 3424214291) Negative Negative LEUK BUTCH (test code = 8987250138) Negative Negative RBC/HPF (test code = 9398853532) See_Comment [Automated messa ge] The system which generated this result transmitted reference range: 0 - 3 HPF. The reference range was not used to interpret this result as normal/abnormal. WBC/HPF (test code = 2172989739) <1 See_Comment [Automated messa ge] The system which generated this result transmitted reference range: 0 - 5 HPF. The reference range was not used to interpret this result as normal/abnormal. BACTERIA (test code = 2123036007) Few Negative A Lab Interpretation (test code = 53971-2) Abnormal [facility] 05:11:00* Test Item Value Reference Range Interpretation Comme nts APPEARANCE (test code = 0845706783) Clear Clear COLOR (test code = 6431844617) Colorless Yellow A PH (test code = 0963550208) 4.8-8.0 SP GRAVITY (test code = 8375818381) 1.003-1.030 GLU U QUAL (test code = 1174190639) Normal Normal BLOOD (test code = 4149581838) Negative Negative KETONES (test code = 3043385233) Negative Negative PROTEIN (test code = 2887-8) Negative Negative UROBILIN (test code = 1771148094) Normal Normal BILIRUBIN (test code = 6806330611) Negative Negative NITRITE (test code = 3918258696) Negative Negative LEUK BUTCH (test code = 3838895236) Negative Negative RBC/HPF (test code = 7601452502) See_Comment [Automated messa ge] The system which generated this result transmitted reference range: 0 - 3 HPF. The reference range was not used to interpret this result as normal/abnormal. WBC/HPF (test code = 9439645892) <1 See_Comment [Automated messa ge] The system which generated this result transmitted reference range: 0 - 5 HPF. The reference range was not used to interpret this result as normal/abnormal. BACTERIA (test code = 7616696052) Few Negative A Lab Interpretation (test code = 14794-2) Abnormal [facility] 05:11:00* Test Item Value Reference Range Interpretation Comme nts APPEARANCE (test code = 6042028594) Clear Clear COLOR (test code = 2688843002) Colorless Yellow A PH (test code = 3887191702) 4.8-8.0 SP GRAVITY (test code = 2511544147) 1.003-1.030 GLU U QUAL (test code = 5852178256) Normal Normal BLOOD (test code = 6373674671) Negative Negative KETONES (test code = 6537801809) Negative Negative PROTEIN (test code = 2887-8) Negative Negative UROBILIN (test code = 5433368415) Normal Normal BILIRUBIN (test code = 1509169152) Negative Negative NITRITE (test code = 8830655777) Negative Negative LEUK BUTCH (test code = 4355581971) Negative Negative RBC/HPF (test code = 5042228871) See_Comment [Automated [employer]] The system which generated this result transmitted reference range: 0 - 3 HPF. The reference range was not used to interpret this result as normal/abnormal. WBC/HPF (test code = 5493119226) <1 See_Comment [Automated [employer]] The system which generated this result transmitted reference range: 0 - 5 HPF. The reference range was not used to interpret this result as normal/abnormal. BACTERIA (test code = 8118458752) Few Negative A Lab Interpretation (test code = 19352-1) [facility] Test Item Value Reference Range Interpretation Comme nts APPEARANCE (test code = 6129232446) Clear Clear COLOR (test code = 6818533323) Colorless Yellow A PH (test code = 7408911839) 4.8-8.0 SP GRAVITY (test code = 9368452252) 1.003-1.030 GLU U QUAL (test code = 5591779000) Normal Normal BLOOD (test code = 2910853366) Negative Negative KETONES (test code = 4596734426) Negative Negative PROTEIN (test code = 2887-8) Negative Negative UROBILIN (test code = 7569708465) Normal Normal BILIRUBIN (test code = 0562916726) Negative Negative NITRITE (test code = 5175927136) Negative Negative LEUK BUTCH (test code = 8440622279) Negative Negative RBC/HPF (test code = 7033000561) See_Comment [Automated [employer]] The system which generated this result transmitted reference range: 0 - 3 HPF. The reference range was not used to interpret this result as normal/abnormal. WBC/HPF (test code = 0693983637) <1 See_Comment [Automated [employer]] The system which generated this result transmitted reference range: 0 - 5 HPF. The reference range was not used to interpret this result as normal/abnormal. BACTERIA (test code = 2604796304) Few Negative A Lab Interpretation (test code = 28590-9) [facility] Test Item Value Reference Range Interpretation Comme nts APPEARANCE (test code = 7863347050) Clear Clear COLOR (test code = 3866755059) Colorless Yellow A PH (test code = 8141118268) 4.8-8.0 SP GRAVITY (test code = 1332077407) 1.003-1.030 GLU U QUAL (test code = 9567318406) Normal Normal BLOOD (test code = 6443280578) Negative Negative KETONES (test code = 0207179182) Negative Negative PROTEIN (test code = 2887-8) Negative Negative UROBILIN (test code = 5439367781) Normal Normal BILIRUBIN (test code = 9165522271) Negative Negative NITRITE (test code = 1774681961) Negative Negative LEUK BUTCH (test code = 9579792288) Negative Negative RBC/HPF (test code = 2814846280) See_Comment [Automated [employer]] The system which generated this result transmitted reference range: 0 - 3 HPF. The reference range was not used to interpret this result as normal/abnormal. WBC/HPF (test code = 6576897757) <1 See_Comment [Automated [employer]] The system which generated this result transmitted reference range: 0 - 5 HPF. The reference range was not used to interpret this result as normal/abnormal. BACTERIA (test code = 2000324761) Few Negative A Lab Interpretation (test code = 55440-6) [facility]* Test Item Value Reference Range Interpretation Comme nts APPEARANCE (test code = 0305819729) Clear Clear COLOR (test code = 7516782205) Colorless Yellow A PH (test code = 0255948584) 4.8-8.0 SP GRAVITY (test code = 2914335464) 1.003-1.030 GLU U QUAL (test code = 8407050283) Normal Normal BLOOD (test code = 4380987760) Negative Negative KETONES (test code = 8533530941) Negative Negative PROTEIN (test code = 2887-8) Negative Negative UROBILIN (test code = 4400062608) Normal Normal BILIRUBIN (test code = 8682447761) Negative Negative NITRITE (test code = 6871796815) Negative Negative LEUK BUTCH (test code = 2446877821) Negative Negative RBC/HPF (test code = 1816105757) See_Comment [Automated [employer]] The system which generated this result transmitted reference range: 0 - 3 HPF. The reference range was not used to interpret this result as normal/abnormal. WBC/HPF (test code = 5374684356) <1 See_Comment [Automated [employer]] The system which generated this result transmitted reference range: 0 - 5 HPF. The reference range was not used to interpret this result as normal/abnormal. BACTERIA (test code = 3347949820) Few Negative A Lab Interpretation (test code = 02888-8) [facility]* Test Item Value Reference Range Interpretation Comme nts APPEARANCE (test code = 9505280701) Clear Clear COLOR (test code = 9427464081) Colorless Yellow A PH (test code = 3379339669) 4.8-8.0 SP GRAVITY (test code = 4246460922) 1.003-1.030 GLU U QUAL (test code = 8204856571) Normal Normal BLOOD (test code = 2211061403) Negative Negative KETONES (test code = 7360128311) Negative Negative PROTEIN (test code = 2887-8) Negative Negative UROBILIN (test code = 5463880721) Normal Normal BILIRUBIN (test code = 2188827340) Negative Negative NITRITE (test code = 6920101351) Negative Negative LEUK BUTCH (test code = 7485671363) Negative Negative RBC/HPF (test code = 5065690144) See_Comment [Automated [employer]] The system which generated this result transmitted reference range: 0 - 3 HPF. The reference range was not used to interpret this result as normal/abnormal. WBC/HPF (test code = 0265454285) <1 See_Comment [Automated [employer]] The system which generated this result transmitted reference range: 0 - 5 HPF. The reference range was not used to interpret this result as normal/abnormal. BACTERIA (test code = 1454901895) Few Negative A Lab Interpretation (test code = 52131-5) [facility] Test Item Value Reference Range Interpretation Comme nts APPEARANCE (test code = 1668927435) Clear Clear COLOR (test code = 0396072290) Colorless Yellow A PH (test code = 8906172729) 4.8-8.0 SP GRAVITY (test code = 1549672299) 1.003-1.030 GLU U QUAL (test code = 6986530109) Normal Normal BLOOD (test code = 7044099910) Negative Negative KETONES (test code = 7095244308) Negative Negative PROTEIN (test code = 2887-8) Negative Negative UROBILIN (test code = 3170567876) Normal Normal BILIRUBIN (test code = 5258679883) Negative Negative NITRITE (test code = 2154752739) Negative Negative LEUK BUTCH (test code = 1670595659) Negative Negative RBC/HPF (test code = 6310564980) See_Comment [[employer]ated [employer]] The system which generated this result transmitted reference range: 0 - 3 HPF. The reference range was not used to interpret this result as normal/abnormal. WBC/HPF (test code = 8321910303) <1 See_Comment [[employer]ated [employer]] The system which generated this result transmitted reference range: 0 - 5 HPF. The reference range was not used to interpret this result as normal/abnormal. BACTERIA (test code = 4242029451) Few Negative A Lab Interpretation (test code = 89887-5) [facility]* Test Item Value Reference Range Interpretation Comme nts APPEARANCE (test code = 9917991987) Clear Clear COLOR (test code = 4695470576) Colorless Yellow A PH (test code = 6373957859) 4.8-8.0 SP GRAVITY (test code = 6727465378) 1.003-1.030 GLU U QUAL (test code = 9817839314) Normal Normal BLOOD (test code = 0364428535) Negative Negative KETONES (test code = 5541592302) Negative Negative PROTEIN (test code = 2887-8) Negative Negative UROBILIN (test code = 6365443590) Normal Normal BILIRUBIN (test code = 6297833742) Negative Negative NITRITE (test code = 8378137171) Negative Negative LEUK BUTCH (test code = 5623947725) Negative Negative RBC/HPF (test code = 9021778458) See_Comment [Automated [employer]] The system which generated this result transmitted reference range: 0 - 3 HPF. The reference range was not used to interpret this result as normal/abnormal. WBC/HPF (test code = 3466228809) <1 See_Comment [Automated [employer]] The system which generated this result transmitted reference range: 0 - 5 HPF. The reference range was not used to interpret this result as normal/abnormal. BACTERIA (test code = 7928956390) Few Negative A Lab Interpretation (test code = 17052-8) [facility]* Test Item Value Reference Range Interpretation Comme nts APPEARANCE (test code = 1995929445) Clear Clear COLOR (test code = 0648845452) Colorless Yellow A PH (test code = 5508908087) 4.8-8.0 SP GRAVITY (test code = 8199761290) 1.003-1.030 GLU U QUAL (test code = 4215847140) Normal Normal BLOOD (test code = 8864589108) Negative Negative KETONES (test code = 3578510113) Negative Negative PROTEIN (test code = 2887-8) Negative Negative UROBILIN (test code = 6898046192) Normal Normal BILIRUBIN (test code = 1813043458) Negative Negative NITRITE (test code = 1120981460) Negative Negative LEUK BUTCH (test code = 8838686683) Negative Negative RBC/HPF (test code = 2251252834) See_Comment [Automated [employer]] The system which generated this result transmitted reference range: 0 - 3 HPF. The reference range was not used to interpret this result as normal/abnormal. WBC/HPF (test code = 1793461279) <1 See_Comment [Automated [employer]] The system which generated this result transmitted reference range: 0 - 5 HPF. The reference range was not used to interpret this result as normal/abnormal. BACTERIA (test code = 8848997090) Few Negative A Lab Interpretation (test code = 01724-2) [facility]* Test Item Value Reference Range Interpretation Comme nts APPEARANCE (test code = 1600555133) Clear Clear COLOR (test code = 8874399900) Colorless Yellow A PH (test code = 0117137405) 4.8-8.0 SP GRAVITY (test code = 9445316342) 1.003-1.030 GLU U QUAL (test code = 4923940847) Normal Normal BLOOD (test code = 9044146942) Negative Negative KETONES (test code = 9148477360) Negative Negative PROTEIN (test code = 2887-8) Negative Negative UROBILIN (test code = 5092657839) Normal Normal BILIRUBIN (test code = 3130533401) Negative Negative NITRITE (test code = 7370683044) Negative Negative LEUK BUTCH (test code = 7895981936) Negative Negative RBC/HPF (test code = 3118115252) See_Comment [[employer]ated [employer]] The system which generated this result transmitted reference range: 0 - 3 HPF. The reference range was not used to interpret this result as normal/abnormal. WBC/HPF (test code = 4805423042) <1 See_Comment [[employer]] The system which generated this result transmitted reference range: 0 - 5 HPF. The reference range was not used to interpret this result as normal/abnormal. BACTERIA (test code = 6596444736) Few Negative A Lab Interpretation (test code = 29109-7) [facility]* Test Item Value Reference Range Interpretation Comme nts APPEARANCE (test code = 4048914925) Clear Clear COLOR (test code = 7709233270) Colorless Yellow A PH (test code = 3198748512) 4.8-8.0 SP GRAVITY (test code = 2848786374) 1.003-1.030 GLU U QUAL (test code = 9075483339) Normal Normal BLOOD (test code = 0282163901) Negative Negative KETONES (test code = 2616072055) Negative Negative PROTEIN (test code = 2887-8) Negative Negative UROBILIN (test code = 2955515425) Normal Normal BILIRUBIN (test code = 2580325130) Negative Negative NITRITE (test code = 4620664134) Negative Negative LEUK BUTCH (test code = 5026708867) Negative Negative RBC/HPF (test code = 5097272020) See_Comment [[employer]ated [employer]] The system which generated this result transmitted reference range: 0 - 3 HPF. The reference range was not used to interpret this result as normal/abnormal. WBC/HPF (test code = 7917465890) <1 See_Comment [[employer]] The system which generated this result transmitted reference range: 0 - 5 HPF. The reference range was not used to interpret this result as normal/abnormal. BACTERIA (test code = 9741362598) Few Negative A Lab Interpretation (test code = 91074-6) [facility]* Test Item Value Reference Range Interpretation Comme nts APPEARANCE (test code = 6487184803) Clear Clear COLOR (test code = 1099210284) Colorless Yellow A PH (test code = 9877704560) 4.8-8.0 SP GRAVITY (test code = 6616413017) 1.003-1.030 GLU U QUAL (test code = 0887545532) Normal Normal BLOOD (test code = 6427213288) Negative Negative KETONES (test code = 1839019199) Negative Negative PROTEIN (test code = 2887-8) Negative Negative UROBILIN (test code = 3533360509) Normal Normal BILIRUBIN (test code = 1740567382) Negative Negative NITRITE (test code = 1921450339) Negative Negative LEUK BUTCH (test code = 0740750762) Negative Negative RBC/HPF (test code = 1829797579) See_Comment [[employer]] The system which generated this result transmitted reference range: 0 - 3 HPF. The reference range was not used to interpret this result as normal/abnormal. WBC/HPF (test code = 0824472144) <1 See_Comment [[employer]] The system which generated this result transmitted reference range: 0 - 5 HPF. The reference range was not used to interpret this result as normal/abnormal. BACTERIA (test code = 2270538846) Few Negative A Lab Interpretation (test code = 54917-2) [facility]* Test Item Value Reference Range Interpretation Comme nts APPEARANCE (test code = 8837485107) Clear Clear COLOR (test code = 1154580675) Colorless Yellow A PH (test code = 1913483187) 4.8-8.0 SP GRAVITY (test code = 6501661818) 1.003-1.030 GLU U QUAL (test code = 0378288211) Normal Normal BLOOD (test code = 3302581453) Negative Negative KETONES (test code = 8870341051) Negative Negative PROTEIN (test code = 2887-8) Negative Negative UROBILIN (test code = 6789706235) Normal Normal BILIRUBIN (test code = 2347696989) Negative Negative NITRITE (test code = 3170182860) Negative Negative LEUK BUTCH (test code = 5085011798) Negative Negative RBC/HPF (test code = 8561443707) See_Comment [[employer]] The system which generated this result transmitted reference range: 0 - 3 HPF. The reference range was not used to interpret this result as normal/abnormal. WBC/HPF (test code = 2807222823) <1 See_Comment [[employer]] The system which generated this result transmitted reference range: 0 - 5 HPF. The reference range was not used to interpret this result as normal/abnormal. BACTERIA (test code = 0928549573) Few Negative A Lab Interpretation (test code = 42870-2) [facility]:11:[facility]* Test Item Value Reference Range Interpretation Comme nts APPEARANCE (test code = 7019538923) Clear Clear COLOR (test code = 6106358490) Colorless Yellow A PH (test code = 2097464697) 4.8-8.0 SP GRAVITY (test code = 9596493074) 1.003-1.030 GLU U QUAL (test code = 4594190608) Normal Normal BLOOD (test code = 3666734128) Negative Negative KETONES (test code = 6460922897) Negative Negative PROTEIN (test code = 2887-8) Negative Negative UROBILIN (test code = 3290821494) Normal Normal BILIRUBIN (test code = 5347602160) Negative Negative NITRITE (test code = 2414070855) Negative Negative LEUK BUTCH (test code = 4900057993) Negative Negative RBC/HPF (test code = 9168136482) See_Comment [[employer]] The system which generated this result transmitted reference range: 0 - 3 HPF. The reference range was not used to interpret this result as normal/abnormal. WBC/HPF (test code = 6268436463) <1 See_Comment [[employer]] The system which generated this result transmitted reference range: 0 - 5 HPF. The reference range was not used to interpret this result as normal/abnormal. BACTERIA (test code = 4104130942) Few Negative A Lab Interpretation (test code = 31180-8) [facility]* Test Item Value Reference Range Interpretation Comme nts APPEARANCE (test code = 8479077147) Clear Clear COLOR (test code = 8326163546) Colorless Yellow A PH (test code = 0750248719) 4.8-8.0 SP GRAVITY (test code = 4162049042) 1.003-1.030 GLU U QUAL (test code = 7440988374) Normal Normal BLOOD (test code = 4762818592) Negative Negative KETONES (test code = 7000554550) Negative Negative PROTEIN (test code = 2887-8) Negative Negative UROBILIN (test code = 5265403785) Normal Normal BILIRUBIN (test code = 1809144356) Negative Negative NITRITE (test code = 1294919567) Negative Negative LEUK BUTCH (test code = 6588680707) Negative Negative RBC/HPF (test code = 3648546274) See_Comment [[employer]] The system which generated this result transmitted reference range: 0 - 3 HPF. The reference range was not used to interpret this result as normal/abnormal. WBC/HPF (test code = 4515231786) <1 See_Comment [[employer]] The system which generated this result transmitted reference range: 0 - 5 HPF. The reference range was not used to interpret this result as normal/abnormal. BACTERIA (test code = 8086606464) Few Negative A Lab Interpretation (test code = 65435-9) [facility]* Test Item Value Reference Range Interpretation Comme nts APPEARANCE (test code = 9752873110) Clear Clear COLOR (test code = 8542546851) Colorless Yellow A PH (test code = 7970907102) 4.8-8.0 SP GRAVITY (test code = 1435698922) 1.003-1.030 GLU U QUAL (test code = 3413135287) Normal Normal BLOOD (test code = 8039582636) Negative Negative KETONES (test code = 3389494014) Negative Negative PROTEIN (test code = 2887-8) Negative Negative UROBILIN (test code = 0344412444) Normal Normal BILIRUBIN (test code = 0570530483) Negative Negative NITRITE (test code = 5631172750) Negative Negative LEUK BUTCH (test code = 7126295799) Negative Negative RBC/HPF (test code = 9110813896) See_Comment [[employer]] The system which generated this result transmitted reference range: 0 - 3 HPF. The reference range was not used to interpret this result as normal/abnormal. WBC/HPF (test code = 0671154655) <1 See_Comment [[employer]] The system which generated this result transmitted reference range: 0 - 5 HPF. The reference range was not used to interpret this result as normal/abnormal. BACTERIA (test code = 0146404358) Few Negative A Lab Interpretation (test code = 50583-9) [facility]:11:[facility]* Test Item Value Reference Range Interpretation Comme nts APPEARANCE (test code = 1024426007) Clear Clear COLOR (test code = 1038824970) Colorless Yellow A PH (test code = 2957933449) 4.8-8.0 SP GRAVITY (test code = 3898822969) 1.003-1.030 GLU U QUAL (test code = 7318084902) Normal Normal BLOOD (test code = 4723016422) Negative Negative KETONES (test code = 6378380850) Negative Negative PROTEIN (test code = 2887-8) Negative Negative UROBILIN (test code = 5475795459) Normal Normal BILIRUBIN (test code = 6073037186) Negative Negative NITRITE (test code = 3450808116) Negative Negative LEUK BUTCH (test code = 5971651267) Negative Negative RBC/HPF (test code = 0767851035) See_Comment [[employer]] The system which generated this result transmitted reference range: 0 - 3 HPF. The reference range was not used to interpret this result as normal/abnormal. WBC/HPF (test code = 9892569126) <1 See_Comment [Automated [employer]] The system which generated this result transmitted reference range: 0 - 5 HPF. The reference range was not used to interpret this result as normal/abnormal. BACTERIA (test code = 5252904852) Few Negative A Lab Interpretation (test code = 67182-5) [facility]* Test Item Value Reference Range Interpretation Comme nts APPEARANCE (test code = 5322731170) Clear Clear COLOR (test code = 1278825050) Colorless Yellow A PH (test code = 1537633402) 4.8-8.0 SP GRAVITY (test code = 6921990781) 1.003-1.030 GLU U QUAL (test code = 6227300657) Normal Normal BLOOD (test code = 8915925196) Negative Negative KETONES (test code = 1604183179) Negative Negative PROTEIN (test code = 2887-8) Negative Negative UROBILIN (test code = 2889315904) Normal Normal BILIRUBIN (test code = 9524087389) Negative Negative NITRITE (test code = 0177179938) Negative Negative LEUK BUTCH (test code = 7565704918) Negative Negative RBC/HPF (test code = 8845864258) See_Comment [[employer]] The system which generated this result transmitted reference range: 0 - 3 HPF. The reference range was not used to interpret this result as normal/abnormal. WBC/HPF (test code = 9924105996) <1 See_Comment [Automated [employer]] The system which generated this result transmitted reference range: 0 - 5 HPF. The reference range was not used to interpret this result as normal/abnormal. BACTERIA (test code = 1920763374) Few Negative A Lab Interpretation (test code = 48391-0) [facility]* Test Item Value Reference Range Interpretation Comme nts APPEARANCE (test code = 3991251734) Clear Clear COLOR (test code = 0108279844) Colorless Yellow A PH (test code = 4459424275) 4.8-8.0 SP GRAVITY (test code = 0684611210) 1.003-1.030 GLU U QUAL (test code = 1327210631) Normal Normal BLOOD (test code = 1539486100) Negative Negative KETONES (test code = 5554774425) Negative Negative PROTEIN (test code = 2887-8) Negative Negative UROBILIN (test code = 3439390695) Normal Normal BILIRUBIN (test code = 0342567810) Negative Negative NITRITE (test code = 9747964043) Negative Negative LEUK BUTCH (test code = 3364714455) Negative Negative RBC/HPF (test code = 6176649613) See_Comment [[employer]] The system which generated this result transmitted reference range: 0 - 3 HPF. The reference range was not used to interpret this result as normal/abnormal. WBC/HPF (test code = 1128731941) <1 See_Comment [[employer]] The system which generated this result transmitted reference range: 0 - 5 HPF. The reference range was not used to interpret this result as normal/abnormal. BACTERIA (test code = 3526879746) Few Negative A Lab Interpretation (test code = 48117-0) [facility]* Test Item Value Reference Range Interpretation Comme nts APPEARANCE (test code = 8449404312) Clear Clear COLOR (test code = 4320994236) Colorless Yellow A PH (test code = 9957197257) 4.8-8.0 SP GRAVITY (test code = 5921106089) 1.003-1.030 GLU U QUAL (test code = 1385489072) Normal Normal BLOOD (test code = 1585932254) Negative Negative KETONES (test code = 8500512674) Negative Negative PROTEIN (test code = 2887-8) Negative Negative UROBILIN (test code = 8355361167) Normal Normal BILIRUBIN (test code = 4300710802) Negative Negative NITRITE (test code = 3793524130) Negative Negative LEUK BUTCH (test code = 8120576292) Negative Negative RBC/HPF (test code = 7220327088) See_Comment [[employer]] The system which generated this result transmitted reference range: 0 - 3 HPF. The reference range was not used to interpret this result as normal/abnormal. WBC/HPF (test code = 9462195532) <1 See_Comment [[employer]] The system which generated this result transmitted reference range: 0 - 5 HPF. The reference range was not used to interpret this result as normal/abnormal. BACTERIA (test code = 2969343783) Few Negative A Lab Interpretation (test code = 49136-6) [facility]* Test Item Value Reference Range Interpretation Comme nts APPEARANCE (test code = 1092945462) Clear Clear COLOR (test code = 7410948899) Colorless Yellow A PH (test code = 6784832223) 4.8-8.0 SP GRAVITY (test code = 0049755438) 1.003-1.030 GLU U QUAL (test code = 5136368192) Normal Normal BLOOD (test code = 5536887723) Negative Negative KETONES (test code = 2247655055) Negative Negative PROTEIN (test code = 2887-8) Negative Negative UROBILIN (test code = 5421646288) Normal Normal BILIRUBIN (test code = 2495066446) Negative Negative NITRITE (test code = 7489829474) Negative Negative LEUK BUTCH (test code = 7967398240) Negative Negative RBC/HPF (test code = 5763553542) See_Comment [Automated [employer]] The system which generated this result transmitted reference range: 0 - 3 HPF. The reference range was not used to interpret this result as normal/abnormal. WBC/HPF (test code = 1477449122) <1 See_Comment [Automated [employer]] The system which generated this result transmitted reference range: 0 - 5 HPF. The reference range was not used to interpret this result as normal/abnormal. BACTERIA (test code = 6770040976) Few Negative A Lab Interpretation (test code = 58178-6) [facility]* Test Item Value Reference Range Interpretation Comme nts APPEARANCE (test code = 1695893794) Clear Clear COLOR (test code = 6384749095) Colorless Yellow A PH (test code = 2934478488) 4.8-8.0 SP GRAVITY (test code = 9599378389) 1.003-1.030 GLU U QUAL (test code = 9438317912) Normal Normal BLOOD (test code = 4376327728) Negative Negative KETONES (test code = 8963380339) Negative Negative PROTEIN (test code = 2887-8) Negative Negative UROBILIN (test code = 6700632765) Normal Normal BILIRUBIN (test code = 9379552364) Negative Negative NITRITE (test code = 0316786218) Negative Negative LEUK BUTCH (test code = 4894395970) Negative Negative RBC/HPF (test code = 4425921307) See_Comment [Automated messa ge] The system which generated this result transmitted reference range: 0 - 3 HPF. The reference range was not used to interpret this result as normal/abnormal. WBC/HPF (test code = 1716920718) <1 See_Comment [Automated messa ge] The system which generated this result transmitted reference range: 0 - 5 HPF. The reference range was not used to interpret this result as normal/abnormal. BACTERIA (test code = 4175523090) Few Negative A Lab Interpretation (test code = 23377-6) [facility] Test Item Value Reference Range Interpretation Comme nts APPEARANCE (test code = 0948197394) Clear Clear COLOR (test code = 1695762189) Colorless Yellow A PH (test code = 6265251710) 4.8-8.0 SP GRAVITY (test code = 1016173811) 1.003-1.030 GLU U QUAL (test code = 9534307662) Normal Normal BLOOD (test code = 3924677062) Negative Negative KETONES (test code = 3725766731) Negative Negative PROTEIN (test code = 2887-8) Negative Negative UROBILIN (test code = 5643859870) Normal Normal BILIRUBIN (test code = 9528224655) Negative Negative NITRITE (test code = 5348205734) Negative Negative LEUK BUTCH (test code = 7992840287) Negative Negative RBC/HPF (test code = 2112308987) See_Comment [Automated messa ge] The system which generated this result transmitted reference range: 0 - 3 HPF. The reference range was not used to interpret this result as normal/abnormal. WBC/HPF (test code = 9680805207) <1 See_Comment [Automated messa ge] The system which generated this result transmitted reference range: 0 - 5 HPF. The reference range was not used to interpret this result as normal/abnormal. BACTERIA (test code = 3619287856) Few Negative A Lab Interpretation (test code = 41062-6) [facility]* Test Item Value Reference Range Interpretation Comme nts APPEARANCE (test code = 9296060547) Clear Clear COLOR (test code = 9648495541) Colorless Yellow A PH (test code = 5712024548) 4.8-8.0 SP GRAVITY (test code = 3061303986) 1.003-1.030 GLU U QUAL (test code = 3416837751) Normal Normal BLOOD (test code = 7693442578) Negative Negative KETONES (test code = 4647209497) Negative Negative PROTEIN (test code = 2887-8) Negative Negative UROBILIN (test code = 0487836953) Normal Normal BILIRUBIN (test code = 7032054141) Negative Negative NITRITE (test code = 2887003124) Negative Negative LEUK BUTCH (test code = 2869157257) Negative Negative RBC/HPF (test code = 3726973008) See_Comment [Automated [employer]] The system which generated this result transmitted reference range: 0 - 3 HPF. The reference range was not used to interpret this result as normal/abnormal. WBC/HPF (test code = 1566462548) <1 See_Comment [Automated [employer]] The system which generated this result transmitted reference range: 0 - 5 HPF. The reference range was not used to interpret this result as normal/abnormal. BACTERIA (test code = 1113639300) Few Negative A Lab Interpretation (test code = 18566-6) [facility] Test Item Value Reference Range Interpretation Comme nts APPEARANCE (test code = 4799845043) Clear Clear COLOR (test code = 7146732657) Colorless Yellow A PH (test code = 2479408859) 4.8-8.0 SP GRAVITY (test code = 5433652035) 1.003-1.030 GLU U QUAL (test code = 0799413240) Normal Normal BLOOD (test code = 4442136955) Negative Negative KETONES (test code = 6053921175) Negative Negative PROTEIN (test code = 2887-8) Negative Negative UROBILIN (test code = 8617828024) Normal Normal BILIRUBIN (test code = 8716803169) Negative Negative NITRITE (test code = 2909450755) Negative Negative LEUK BUTCH (test code = 1054406228) Negative Negative RBC/HPF (test code = 8762640510) See_Comment [Automated messa ge] The system which generated this result transmitted reference range: 0 - 3 HPF. The reference range was not used to interpret this result as normal/abnormal. WBC/HPF (test code = 5541803387) <1 See_Comment [Automated messa ge] The system which generated this result transmitted reference range: 0 - 5 HPF. The reference range was not used to interpret this result as normal/abnormal. BACTERIA (test code = 2306600347) Few Negative A Lab Interpretation (test code = 60480-0) [facility]* Test Item Value Reference Range Interpretation Comme nts APPEARANCE (test code = 6224706459) Clear Clear COLOR (test code = 7400224511) Colorless Yellow A PH (test code = 3127116527) 4.8-8.0 SP GRAVITY (test code = 4686258032) 1.003-1.030 GLU U QUAL (test code = 8121476117) Normal Normal BLOOD (test code = 0623278763) Negative Negative KETONES (test code = 5490971869) Negative Negative PROTEIN (test code = 2887-8) Negative Negative UROBILIN (test code = 9875846967) Normal Normal BILIRUBIN (test code = 1821662198) Negative Negative NITRITE (test code = 0388236683) Negative Negative LEUK BUTCH (test code = 9617637352) Negative Negative RBC/HPF (test code = 5795348179) See_Comment [Automated messa ge] The system which generated this result transmitted reference range: 0 - 3 HPF. The reference range was not used to interpret this result as normal/abnormal. WBC/HPF (test code = 2002154178) <1 See_Comment [Automated messa ge] The system which generated this result transmitted reference range: 0 - 5 HPF. The reference range was not used to interpret this result as normal/abnormal. BACTERIA (test code = 8928692546) Few Negative A Lab Interpretation (test code = 49701-8) [facility]* Test Item Value Reference Range Interpretation Comme nts APPEARANCE (test code = 9075397054) Clear Clear COLOR (test code = 8269942013) Colorless Yellow A PH (test code = 5072915387) 4.8-8.0 SP GRAVITY (test code = 2294826498) 1.003-1.030 GLU U QUAL (test code = 1997810716) Normal Normal BLOOD (test code = 6899233320) Negative Negative KETONES (test code = 3801990756) Negative Negative PROTEIN (test code = 2887-8) Negative Negative UROBILIN (test code = 3349911211) Normal Normal BILIRUBIN (test code = 5490234404) Negative Negative NITRITE (test code = 5142424550) Negative Negative LEUK BUTCH (test code = 5842352376) Negative Negative RBC/HPF (test code = 1707900200) See_Comment [Automated [employer]] The system which generated this result transmitted reference range: 0 - 3 HPF. The reference range was not used to interpret this result as normal/abnormal. WBC/HPF (test code = 1810407912) <1 See_Comment [Automated [employer]] The system which generated this result transmitted reference range: 0 - 5 HPF. The reference range was not used to interpret this result as normal/abnormal. BACTERIA (test code = 4661072282) Few Negative A Lab Interpretation (test code = 77235-6) [facility]:11:[facility]* Test Item Value Reference Range Interpretation Comme nts APPEARANCE (test code = 9086142405) Clear Clear COLOR (test code = 1526652405) Colorless Yellow A PH (test code = 1522846231) 4.8-8.0 SP GRAVITY (test code = 9882330457) 1.003-1.030 GLU U QUAL (test code = 4475862801) Normal Normal BLOOD (test code = 5370779911) Negative Negative KETONES (test code = 0220160291) Negative Negative PROTEIN (test code = 2887-8) Negative Negative UROBILIN (test code = 8951364893) Normal Normal BILIRUBIN (test code = 6412532732) Negative Negative NITRITE (test code = 7801770858) Negative Negative LEUK BUTCH (test code = 4595065982) Negative Negative RBC/HPF (test code = 2144719664) See_Comment [Automated [employer]] The system which generated this result transmitted reference range: 0 - 3 HPF. The reference range was not used to interpret this result as normal/abnormal. WBC/HPF (test code = 2359929963) <1 See_Comment [Automated [employer]] The system which generated this result transmitted reference range: 0 - 5 HPF. The reference range was not used to interpret this result as normal/abnormal. BACTERIA (test code = 7237354420) Few Negative A Lab Interpretation (test code = 57640-6) [facility]* Test Item Value Reference Range Interpretation Comme nts APPEARANCE (test code = 7187014566) Clear Clear COLOR (test code = 8356887078) Colorless Yellow A PH (test code = 0577336115) 4.8-8.0 SP GRAVITY (test code = 8763876205) 1.003-1.030 GLU U QUAL (test code = 6516650239) Normal Normal BLOOD (test code = 6249417108) Negative Negative KETONES (test code = 3622535465) Negative Negative PROTEIN (test code = 2887-8) Negative Negative UROBILIN (test code = 9954759330) Normal Normal BILIRUBIN (test code = 1115182698) Negative Negative NITRITE (test code = 3173193428) Negative Negative LEUK BUTCH (test code = 4107925989) Negative Negative RBC/HPF (test code = 5866251195) See_Comment [Automated [employer]] The system which generated this result transmitted reference range: 0 - 3 HPF. The reference range was not used to interpret this result as normal/abnormal. WBC/HPF (test code = 0205408578) <1 See_Comment [[employer]ated [employer]] The system which generated this result transmitted reference range: 0 - 5 HPF. The reference range was not used to interpret this result as normal/abnormal. BACTERIA (test code = 5983441087) Few Negative A Lab Interpretation (test code = 90015-7) [facility]* Test Item Value Reference Range Interpretation Comme nts APPEARANCE (test code = 3164339336) Clear Clear COLOR (test code = 4036554611) Colorless Yellow A PH (test code = 6191153246) 4.8-8.0 SP GRAVITY (test code = 1661007602) 1.003-1.030 GLU U QUAL (test code = 4463492372) Normal Normal BLOOD (test code = 2664434639) Negative Negative KETONES (test code = 9687147235) Negative Negative PROTEIN (test code = 2887-8) Negative Negative UROBILIN (test code = 6751656147) Normal Normal BILIRUBIN (test code = 9452047645) Negative Negative NITRITE (test code = 2289558841) Negative Negative LEUK BUTCH (test code = 6867370228) Negative Negative RBC/HPF (test code = 3607084071) See_Comment [Automated messa ge] The system which generated this result transmitted reference range: 0 - 3 HPF. The reference range was not used to interpret this result as normal/abnormal. WBC/HPF (test code = 1142426144) <1 See_Comment [Automated messa ge] The system which generated this result transmitted reference range: 0 - 5 HPF. The reference range was not used to interpret this result as normal/abnormal. BACTERIA (test code = 9141083276) Few Negative A Lab Interpretation (test code = 00831-4) [facility]11:[facility]* Test Item Value Reference Range Interpretation Comme nts APPEARANCE (test code = 2542544063) Clear Clear COLOR (test code = 5289816485) Colorless Yellow A PH (test code = 7770731718) 4.8-8.0 SP GRAVITY (test code = 3399011367) 1.003-1.030 GLU U QUAL (test code = 6336153388) Normal Normal BLOOD (test code = 7369343579) Negative Negative KETONES (test code = 6585750307) Negative Negative PROTEIN (test code = 2887-8) Negative Negative UROBILIN (test code = 4472564991) Normal Normal BILIRUBIN (test code = 2152201841) Negative Negative NITRITE (test code = 2161526778) Negative Negative LEUK BUTCH (test code = 3733637739) Negative Negative RBC/HPF (test code = 3794799553) See_Comment [Automated messa ge] The system which generated this result transmitted reference range: 0 - 3 HPF. The reference range was not used to interpret this result as normal/abnormal. WBC/HPF (test code = 7557213468) <1 See_Comment [Automated messa ge] The system which generated this result transmitted reference range: 0 - 5 HPF. The reference range was not used to interpret this result as normal/abnormal. BACTERIA (test code = 4458011284) Few Negative A Lab Interpretation (test code = 58344-7) [facility]* Test Item Value Reference Range Interpretation Comme nts APPEARANCE (test code = 6082723489) Clear Clear COLOR (test code = 3458455174) Colorless Yellow A PH (test code = 3872428230) 4.8-8.0 SP GRAVITY (test code = 3279697375) 1.003-1.030 GLU U QUAL (test code = 8872783594) Normal Normal BLOOD (test code = 5009542028) Negative Negative KETONES (test code = 5110169566) Negative Negative PROTEIN (test code = 2887-8) Negative Negative UROBILIN (test code = 7663732385) Normal Normal BILIRUBIN (test code = 6789824342) Negative Negative NITRITE (test code = 1287801325) Negative Negative LEUK BUTCH (test code = 3755772176) Negative Negative RBC/HPF (test code = 6342935662) See_Comment [Automated [employer]] The system which generated this result transmitted reference range: 0 - 3 HPF. The reference range was not used to interpret this result as normal/abnormal. WBC/HPF (test code = 7809923621) <1 See_Comment [Automated [employer]] The system which generated this result transmitted reference range: 0 - 5 HPF. The reference range was not used to interpret this result as normal/abnormal. BACTERIA (test code = 0168834117) Few Negative A Lab Interpretation (test code = 67456-3) [facility]11:[facility]* Test Item Value Reference Range Interpretation Comme nts APPEARANCE (test code = 2390842440) Clear Clear COLOR (test code = 0364793539) Colorless Yellow A PH (test code = 5774933737) 4.8-8.0 SP GRAVITY (test code = 1842882101) 1.003-1.030 GLU U QUAL (test code = 0448565055) Normal Normal BLOOD (test code = 2889183337) Negative Negative KETONES (test code = 6933212642) Negative Negative PROTEIN (test code = 2887-8) Negative Negative UROBILIN (test code = 0524347730) Normal Normal BILIRUBIN (test code = 9252555682) Negative Negative NITRITE (test code = 0937158080) Negative Negative LEUK BUTCH (test code = 7145597964) Negative Negative RBC/HPF (test code = 9163472855) See_Comment [Automated messa ge] The system which generated this result transmitted reference range: 0 - 3 HPF. The reference range was not used to interpret this result as normal/abnormal. WBC/HPF (test code = 6848932202) <1 See_Comment [Automated messa ge] The system which generated this result transmitted reference range: 0 - 5 HPF. The reference range was not used to interpret this result as normal/abnormal. BACTERIA (test code = 5041458045) Few Negative A Lab Interpretation (test code = 26393-8) [facility]:11:00* Test Item Value Reference Range Interpretation Comme nts APPEARANCE (test code = 8576890165) Clear Clear COLOR (test code = 3079690905) Colorless Yellow A PH (test code = 0789929185) 4.8-8.0 SP GRAVITY (test code = 5613702724) 1.003-1.030 GLU U QUAL (test code = 0171177629) Normal Normal BLOOD (test code = 7188908360) Negative Negative KETONES (test code = 0793268463) Negative Negative PROTEIN (test code = 2887-8) Negative Negative UROBILIN (test code = 7657817089) Normal Normal BILIRUBIN (test code = 0385499703) Negative Negative NITRITE (test code = 1516031563) Negative Negative LEUK BUTCH (test code = 7227983007) Negative Negative RBC/HPF (test code = 0953835424) See_Comment [Automated messa ge] The system which generated this result transmitted reference range: 0 - 3 HPF. The reference range was not used to interpret this result as normal/abnormal. WBC/HPF (test code = 0320973190) <1 See_Comment [Automated messa ge] The system which generated this result transmitted reference range: 0 - 5 HPF. The reference range was not used to interpret this result as normal/abnormal. BACTERIA (test code = 8411477619) Few Negative A Lab Interpretation (test code = 25964-8) [facility]:11:00* Test Item Value Reference Range Interpretation Comme nts APPEARANCE (test code = 5936148592) Clear Clear COLOR (test code = 8473822731) Colorless Yellow A PH (test code = 3509145073) 4.8-8.0 SP GRAVITY (test code = 4314027164) 1.003-1.030 GLU U QUAL (test code = 1344878794) Normal Normal BLOOD (test code = 3842931188) Negative Negative KETONES (test code = 6438411440) Negative Negative PROTEIN (test code = 2887-8) Negative Negative UROBILIN (test code = 8071820979) Normal Normal BILIRUBIN (test code = 1238307985) Negative Negative NITRITE (test code = 4029326727) Negative Negative LEUK BUTCH (test code = 3500081883) Negative Negative RBC/HPF (test code = 5630178665) See_Comment [Automated [employer]] The system which generated this result transmitted reference range: 0 - 3 HPF. The reference range was not used to interpret this result as normal/abnormal. WBC/HPF (test code = 3204713860) <1 See_Comment [Automated [employer]] The system which generated this result transmitted reference range: 0 - 5 HPF. The reference range was not used to interpret this result as normal/abnormal. BACTERIA (test code = 3013444445) Few Negative A Lab Interpretation (test code = 28123-7) [facility] [id number] 03:29:00* Test Item Value Reference Range Interpretation Comme nts VALPROIC A (test code = 7215010973) 51 ug/mL 50-100 BEVERLY (test code = BEVERLY) Toxic Range: ?Greater than 100 ug/mL Lab Interpretation (test code = 26059-8) [facility], [id number] 03:29:00* Test Item Value Reference Range Interpretation Comme nts VALPROIC A (test code = 4920920018) 51 ug/mL 50-100 BEVERLY (test code = BEVERLY) Toxic Range: ?Greater than 100 ug/mL Lab Interpretation (test code = 04205-9) [facility], [id number] 03:29:00* Test Item Value Reference Range Interpretation Comme nts VALPROIC A (test code = 0205626876) 51 ug/mL 50-100 BEVERLY (test code = BEVERLY) Toxic Range: ?Greater than 100 ug/mL Lab Interpretation (test code = 77067-9) [id number]* Test Item Value Reference Range Interpretation Comme nts VALPROIC A (test code = 2775661361) 51 ug/mL 50-100 BEVERLY (test code = BEVERLY) Toxic Range: ?Greater than 100 ug/mL Lab Interpretation (test code = 13723-2) [facility] [id number] 03:29:00* Test Item Value Reference Range Interpretation Comme nts VALPROIC A (test code = 8754596561) 51 ug/mL 50-100 BEVERLY (test code = BEVERLY) Toxic Range: ?Greater than 100 ug/mL Lab Interpretation (test code = 64981-6) [facility] [id number] 03:29:00* Test Item Value Reference Range Interpretation Comme nts VALPROIC A (test code = 1335695120) 51 ug/mL 50-100 BEVERLY (test code = BEVERLY) Toxic Range: ?Greater than 100 ug/mL Lab Interpretation (test code = 98812-9) [facility] [id number] 03:29:00* Test Item Value Reference Range Interpretation Comme nts VALPROIC A (test code = 4455395924) 51 ug/mL 50-100 BEVERLY (test code = BEVERLY) Toxic Range: ?Greater than 100 ug/mL Lab Interpretation (test code = 36773-3) [facility] [id number] 03:29:00* Test Item Value Reference Range Interpretation Comme nts VALPROIC A (test code = 0651956038) 51 ug/mL 50-100 BEVERLY (test code = BEVERLY) Toxic Range: ?Greater than 100 ug/mL Lab Interpretation (test code = 87339-3) [facility] [id number] 03:29:00* Test Item Value Reference Range Interpretation Comme nts VALPROIC A (test code = 0683997810) 51 ug/mL 50-100 BEVERLY (test code = BEVERLY) Toxic Range: ?Greater than 100 ug/mL Lab Interpretation (test code = 27934-1) [facility] [id number] 03:29:00* Test Item Value Reference Range Interpretation Comme nts VALPROIC A (test code = 5837669335) 51 ug/mL 50-100 BEVERLY (test code = BEVERLY) Toxic Range: ?Greater than 100 ug/mL Lab Interpretation (test code = 81865-0) [facility] [id number] 03:29:00* Test Item Value Reference Range Interpretation Comme nts VALPROIC A (test code = 4585351123) 51 ug/mL 50-100 BEVERLY (test code = BEVERLY) Toxic Range: ?Greater than 100 ug/mL Lab Interpretation (test code = 51153-7) [facility] [id number] 03:29:00* Test Item Value Reference Range Interpretation Comme nts VALPROIC A (test code = 8387784867) 51 ug/mL 50-100 BEVERLY (test code = BEVERLY) Toxic Range: ?Greater than 100 ug/mL Lab Interpretation (test code = 03120-0) [facility] [id number] 03:29:00* Test Item Value Reference Range Interpretation Comme nts VALPROIC A (test code = 7420302618) 51 ug/mL 50-100 BEVERLY (test code = BEVERLY) Toxic Range: ?Greater than 100 ug/mL Lab Interpretation (test code = 47204-8) [facility] [id number] 03:29:00* Test Item Value Reference Range Interpretation Comme nts VALPROIC A (test code = 9542254382) 51 ug/mL 50-100 BEVERLY (test code = BEVERLY) Toxic Range: ?Greater than 100 ug/mL Lab Interpretation (test code = 11824-4) [facility] [id number] 03:29:00* Test Item Value Reference Range Interpretation Comme nts VALPROIC A (test code = 8316173490) 51 ug/mL 50-100 BEVERLY (test code = BEVERLY) Toxic Range: ?Greater than 100 ug/mL Lab Interpretation (test code = 10523-6) [facility] [id number] 03:29:00* Test Item Value Reference Range Interpretation Comme nts VALPROIC A (test code = 6152583121) 51 ug/mL 50-100 BEVERLY (test code = BEVERLY) Toxic Range: ?Greater than 100 ug/mL Lab Interpretation (test code = 77597-6) [facility] [id number] 03:29:00* Test Item Value Reference Range Interpretation Comme nts VALPROIC A (test code = 7693270948) 51 ug/mL 50-100 BEVERLY (test code = BEVERLY) Toxic Range: ?Greater than 100 ug/mL Lab Interpretation (test code = 91488-4) [facility] [id number] 03:29:00* Test Item Value Reference Range Interpretation Comme nts VALPROIC A (test code = 9145938936) 51 ug/mL 50-100 BEVERLY (test code = BEVERLY) Toxic Range: ?Greater than 100 ug/mL Lab Interpretation (test code = 46998-6) [facility] [id number] 03:29:00* Test Item Value Reference Range Interpretation Comme nts VALPROIC A (test code = 5945694120) 51 ug/mL 50-100 BEVERLY (test code = BEVERLY) Toxic Range: ?Greater than 100 ug/mL Lab Interpretation (test code = 33235-6) [facility] [id number] 03:29:00* Test Item Value Reference Range Interpretation Comme nts VALPROIC A (test code = 5216868171) 51 ug/mL 50-100 BEVERLY (test code = BEVERLY) Toxic Range: ?Greater than 100 ug/mL Lab Interpretation (test code = 26895-8) [facility] ACID, [id number] 03:29:00* Test Item Value Reference Range Interpretation Comme nts VALPROIC A (test code = 0589394913) 51 ug/mL 50-100 BEVERLY (test code = BEVERLY) Toxic Range: ?Greater than 100 ug/mL Lab Interpretation (test code = 96805-7) [facility] [id number] 03:29:00* Test Item Value Reference Range Interpretation Comme nts VALPROIC A (test code = 4516445629) 51 ug/mL 50-100 BEVERLY (test code = BEVERLY) Toxic Range: ?Greater than 100 ug/mL Lab Interpretation (test code = 01397-4) [facility] ACID, [id number] 03:29:00* Test Item Value Reference Range Interpretation Comme nts VALPROIC A (test code = 3729890627) 51 ug/mL 50-100 BEVERLY (test code = BEVERLY) Toxic Range: ?Greater than 100 ug/mL Lab Interpretation (test code = 67139-6) [facility] [id number] 03:29:00* Test Item Value Reference Range Interpretation Comme nts VALPROIC A (test code = 1886875841) 51 ug/mL 50-100 BEVERLY (test code = BEVERLY) Toxic Range: ?Greater than 100 ug/mL Lab Interpretation (test code = 36227-9) [facility] [id number] 03:29:00* Test Item Value Reference Range Interpretation Comme nts VALPROIC A (test code = 2100481155) 51 ug/mL 50-100 BEVERLY (test code = BEVERLY) Toxic Range: ?Greater than 100 ug/mL Lab Interpretation (test code = 62736-4) [facility], [id number] 03:29:00* Test Item Value Reference Range Interpretation Comme nts VALPROIC A (test code = 9635195062) 51 ug/mL 50-100 BEVERLY (test code = BEVERLY) Toxic Range: ?Greater than 100 ug/mL Lab Interpretation (test code = 73675-5) [facility] [id number] 03:29:00* Test Item Value Reference Range Interpretation Comme nts VALPROIC A (test code = 0657572072) 51 ug/mL 50-100 BEVERLY (test code = BEVERLY) Toxic Range: ?Greater than 100 ug/mL Lab Interpretation (test code = 20767-7) [facility] [id number] 03:29:00* Test Item Value Reference Range Interpretation Comme nts VALPROIC A (test code = 1005529846) 51 ug/mL 50-100 BEVERLY (test code = BEVERLY) Toxic Range: ?Greater than 100 ug/mL Lab Interpretation (test code = 48391-6) [facility] [id number] 03:29:00* Test Item Value Reference Range Interpretation Comme nts VALPROIC A (test code = 9038051570) 51 ug/mL 50-100 BEVERLY (test code = BEVERLY) Toxic Range: ?Greater than 100 ug/mL Lab Interpretation (test code = 12109-0) [facility], [id number] 03:29:00* Test Item Value Reference Range Interpretation Comme nts VALPROIC A (test code = 5610415609) 51 ug/mL 50-100 BEVERLY (test code = BEVERLY) Toxic Range: ?Greater than 100 ug/mL Lab Interpretation (test code = 20203-2) [facility] [id number] 03:29:00* Test Item Value Reference Range Interpretation Comme nts VALPROIC A (test code = 0941174865) 51 ug/mL 50-100 BEVERLY (test code = BEVERLY) Toxic Range: ?Greater than 100 ug/mL Lab Interpretation (test code = 90656-3) [facility], [id number] 03:29:00* Test Item Value Reference Range Interpretation Comme nts VALPROIC A (test code = 8308130437) 51 ug/mL 50-100 BEVERLY (test code = BEVERLY) Toxic Range: ?Greater than 100 ug/mL Lab Interpretation (test code = 40779-8) [facility], [id number] 03:29:00* Test Item Value Reference Range Interpretation Comme nts VALPROIC A (test code = 6396434130) 51 ug/mL 50-100 BEVERLY (test code = BEVERLY) Toxic Range: ?Greater than 100 ug/mL Lab Interpretation (test code = 63563-6) [facility] [id number] 03:29:00* Test Item Value Reference Range Interpretation Comme nts VALPROIC A (test code = 9063416030) 51 ug/mL 50-100 BEVERLY (test code = BEVERLY) Toxic Range: ?Greater than 100 ug/mL Lab Interpretation (test code = 48648-8) [facility] [id number] 03:29:00* Test Item Value Reference Range Interpretation Comme nts VALPROIC A (test code = 4204879326) 51 ug/mL 50-100 BEVERLY (test code = BEVERLY) Toxic Range: ?Greater than 100 ug/mL Lab Interpretation (test code = 55417-1) [facility] [id number] 03:29:00* Test Item Value Reference Range Interpretation Comme nts VALPROIC A (test code = 1357629293) 51 ug/mL 50-100 BEVERLY (test code = BEVERLY) Toxic Range: ?Greater than 100 ug/mL Lab Interpretation (test code = 04880-0) [facility] 03:09:00* Test Item Value Reference Range Interpretation Comme nts ALCOHOL (test code = 0525238324) <10 mg/dL BEVERLY (test code = BEVERLY) <10 Tdvafiqc27-023 Toxic>100 Depression of MANAGER CLIENT SUPPORT>400 [facility] 03:09:00* Test Item Value Reference Range Interpretation Comme nts ALCOHOL (test code = 4954487890) <10 mg/dL BEVERLY (test code = BEVERLY) <10 Udmybyao72-645 Toxic>100 Depression of MANAGER CLIENT SUPPORT>400 Fatalities Reported [facility]2021-01-10 03:09:00* Test Item Value Reference Range Interpretation Comme nts ALCOHOL (test code = 6840373016) <10 mg/dL BEVERLY (test code = BEVERLY) <10 Ewtztmys76-139 Toxic>100 Depression of MANAGER CLIENT SUPPORT>400 Fatalities Reported [facility]2021-01-10 03:09:00* Test Item Value Reference Range Interpretation Comme nts ALCOHOL (test code = 3901229295) <10 mg/dL BEVERLY (test code = BEVERLY) <10 Truwfgjg29-256 Toxic>100 Depression of MANAGER CLIENT SUPPORT>400 Fatalities Reported [facility]2021-01-10 03:09:00* Test Item Value Reference Range Interpretation Comme nts ALCOHOL (test code = 4650115374) <10 mg/dL BEVERLY (test code = BEVERLY) <10 Nkmvutey87-663 Toxic>100 Depression of MANAGER CLIENT SUPPORT>400 Fatalities Reported [facility]2021-01-10 03:09:00* Test Item Value Reference Range Interpretation Comme nts ALCOHOL (test code = 8588740485) <10 mg/dL BEVERLY (test code = BEVERLY) <10 Pbgyxgmo34-770 Toxic>100 Depression of MANAGER CLIENT SUPPORT>400 Fatalities Reported [facility]2021-01-10 03:09:00* Test Item Value Reference Range Interpretation Comme nts ALCOHOL (test code = 9436466055) <10 mg/dL BEVERLY (test code = BEVERLY) <10 Tqduwnxc19-172 Toxic>100 Depression of MANAGER CLIENT SUPPORT>400 Fatalities Reported [facility]2021-01-10 03:09:00* Test Item Value Reference Range Interpretation Comme nts ALCOHOL (test code = 2300578972) <10 mg/dL BEVERLY (test code = BEVERLY) <10 Ffckhweu52-958 Toxic>100 Depression of MANAGER CLIENT SUPPORT>400 Fatalities Reported [facility]2021-01-10 03:09:00* Test Item Value Reference Range Interpretation Comme nts ALCOHOL (test code = 1266792715) <10 mg/dL BEVERLY (test code = BEVERLY) <10 Guqqiksa91-768 Toxic>100 Depression of MANAGER CLIENT SUPPORT>400 Fatalities Reported [facility]2021-01-10 03:09:00* Test Item Value Reference Range Interpretation Comme nts ALCOHOL (test code = 9426836829) <10 mg/dL BEVERLY (test code = BEVERLY) <10 Ikancsos86-232 Toxic>100 Depression of MANAGER CLIENT SUPPORT>400 [facility] 03:09:00* Test Item Value Reference Range Interpretation Comme nts ALCOHOL (test code = 9463140916) <10 mg/dL BEVERLY (test code = BEVERLY) <10 Rrgjdfkc09-970 Toxic>100 Depression of MANAGER CLIENT SUPPORT>400 Fatalities Reported [facility]2021-01-10 03:09:00* Test Item Value Reference Range Interpretation Comme nts ALCOHOL (test code = 6143392493) <10 mg/dL BEVERLY (test code = BEVERLY) <10 Bsaysbkg17-802 Toxic>100 Depression of MANAGER CLIENT SUPPORT>400 Fatalities Reported [facility]2021-01-10 03:09:00* Test Item Value Reference Range Interpretation Comme nts ALCOHOL (test code = 5862424284) <10 mg/dL BEVERLY (test code = BEVERLY) <10 Grlbdvlt99-164 Toxic>100 Depression of MANAGER CLIENT SUPPORT>400 Fatalities Reported [facility]2021-01-10 03:09:00* Test Item Value Reference Range Interpretation Comme nts ALCOHOL (test code = 9886494078) <10 mg/dL BEVERLY (test code = BEVERLY) <10 Rcqvlvwn32-832 Toxic>100 Depression of MANAGER CLIENT SUPPORT>400 Fatalities Reported [facility]2021-01-10 03:09:00* Test Item Value Reference Range Interpretation Comme nts ALCOHOL (test code = 9642458548) <10 mg/dL BEVERLY (test code = BEVERLY) <10 Vbixsmzf10-814 Toxic>100 Depression of MANAGER CLIENT SUPPORT>400 Fatalities Reported [facility]2021-01-10 03:09:00* Test Item Value Reference Range Interpretation Comme nts ALCOHOL (test code = 5160840158) <10 mg/dL BEVERLY (test code = BEVERLY) <10 Xjmozyxx39-337 Toxic>100 Depression of MANAGER CLIENT SUPPORT>400 Fatalities Reported [facility]2021-01-10 03:09:00* Test Item Value Reference Range Interpretation Comme nts ALCOHOL (test code = 4961138392) <10 mg/dL BEVERLY (test code = BEVERLY) <10 Tvqndnok01-608 Toxic>100 Depression of MANAGER CLIENT SUPPORT>400 Fatalities Reported [facility]2021-01-10 03:09:00* Test Item Value Reference Range Interpretation Comme nts ALCOHOL (test code = 6386140587) <10 mg/dL BEVERLY (test code = BEVERLY) <10 Eiglitjo20-833 Toxic>100 Depression of MANAGER CLIENT SUPPORT>400 Fatalities Reported [facility]2021-01-10 03:09:00* Test Item Value Reference Range Interpretation Comme nts ALCOHOL (test code = 9801247359) <10 mg/dL BEVERLY (test code = BEVERLY) <10 Soruhjxj09-272 Toxic>100 Depression of MANAGER CLIENT SUPPORT>400 Fatalities Reported [facility]2021-01-10 03:09:00* Test Item Value Reference Range Interpretation Comme nts ALCOHOL (test code = 9403755919) <10 mg/dL BEVERLY (test code = BEVERLY) <10 Gcpckiks97-837 Toxic>100 Depression of MANAGER CLIENT SUPPORT>400 Fatalities Reported [facility]2021-01-10 03:09:00* Test Item Value Reference Range Interpretation Comme nts ALCOHOL (test code = 9628264889) <10 mg/dL BEVERLY (test code = BEVERLY) <10 Zzugtmba57-181 Toxic>100 Depression of MANAGER CLIENT SUPPORT>400 Fatalities Reported [facility]2021-01-10 03:09:00* Test Item Value Reference Range Interpretation Comme nts ALCOHOL (test code = 9688922928) <10 mg/dL BEVERLY (test code = BEVERLY) <10 Otnzpxum96-242 Toxic>100 Depression of MANAGER CLIENT SUPPORT>400 Fatalities Reported [facility]2021-01-10 03:09:00* Test Item Value Reference Range Interpretation Comme nts ALCOHOL (test code = 0718466608) <10 mg/dL BEVERLY (test code = BEVERLY) <10 Vaozjqne63-504 Toxic>100 Depression of MANAGER CLIENT SUPPORT>400 Fatalities Reported [facility]2021-01-10 03:09:00* Test Item Value Reference Range Interpretation Comme nts ALCOHOL (test code = 3589880932) <10 mg/dL BEVERLY (test code = BEVERLY) <10 Llxkuxkq32-493 Toxic>100 Depression of MANAGER CLIENT SUPPORT>400 Fatalities Reported [facility]2021-01-10 03:09:00* Test Item Value Reference Range Interpretation Comme nts ALCOHOL (test code = 0787946939) <10 mg/dL BEVERLY (test code = BEVERLY) <10 Xxrbvfnj98-285 Toxic>100 Depression of MANAGER CLIENT SUPPORT>400 Fatalities Reported [facility]2021-01-10 03:09:00* Test Item Value Reference Range Interpretation Comme nts ALCOHOL (test code = 2016748688) <10 mg/dL BEVERLY (test code = BEVERLY) <10 Zwylxdnd30-209 Toxic>100 Depression of MANAGER CLIENT SUPPORT>400 Fatalities Reported [facility]2021-01-10 03:09:00* Test Item Value Reference Range Interpretation Comme nts ALCOHOL (test code = 1741384535) <10 mg/dL BEVERLY (test code = BEVERLY) <10 Cuupweid91-827 Toxic>100 Depression of MANAGER CLIENT SUPPORT>400 Fatalities Reported [facility]2021-01-10 03:09:00* Test Item Value Reference Range Interpretation Comme nts ALCOHOL (test code = 5110291721) <10 mg/dL BEVERLY (test code = BEVERLY) <10 Gkfavsqr92-281 Toxic>100 Depression of MANAGER CLIENT SUPPORT>400 Fatalities Reported [facility]2021-01-10 03:09:00* Test Item Value Reference Range Interpretation Comme nts ALCOHOL (test code = 0041703928) <10 mg/dL BEVERLY (test code = BEVERLY) <10 Ftakrgdp06-604 Toxic>100 Depression of MANAGER CLIENT SUPPORT>400 Fatalities Reported [facility]2021-01-10 03:09:00* Test Item Value Reference Range Interpretation Comme nts ALCOHOL (test code = 2055914235) <10 mg/dL BEVERLY (test code = BEVERLY) <10 Rjidzqwr54-147 Toxic>100 Depression of MANAGER CLIENT SUPPORT>400 Fatalities Reported [facility]2021-01-10 03:09:00* Test Item Value Reference Range Interpretation Comme nts ALCOHOL (test code = 7408676074) <10 mg/dL BEVERLY (test code = BEVERLY) <10 Skmzjwbj85-366 Toxic>100 Depression of MANAGER CLIENT SUPPORT>400 Fatalities Reported [facility]2021-01-10 03:09:00* Test Item Value Reference Range Interpretation Comme nts ALCOHOL (test code = 6713692875) <10 mg/dL BEVERLY (test code = BEVERLY) <10 Jctuaigc62-494 Toxic>100 Depression of MANAGER CLIENT SUPPORT>400 [facility] 03:09:00* Test Item Value Reference Range Interpretation Comme nts ALCOHOL (test code = 5710156027) <10 mg/dL BEVERLY (test code = BEVERLY) <10 Lprgadzg22-505 Toxic>100 Depression of MANAGER CLIENT SUPPORT>400 [facility] 03:09:00* Test Item Value Reference Range Interpretation Comme nts ALCOHOL (test code = 8503439896) <10 mg/dL BEVERLY (test code = BEVERLY) <10 Hrlgogwb68-735 Toxic>100 Depression of MANAGER CLIENT SUPPORT>400 [facility] 03:09:00* Test Item Value Reference Range Interpretation Comme nts ALCOHOL (test code = 9009023223) <10 mg/dL BEVERLY (test code = BEVERLY) <10 Zhmoxyxj08-852 Toxic>100 Depression of MANAGER CLIENT SUPPORT>400 [facility] 03:09:00* Test Item Value Reference Range Interpretation Comme nts ALCOHOL (test code = 9773767712) <10 mg/dL BEVERLY (test code = BEVERLY) <10 Dglfqrna90-771 Toxic>100 Depression of MANAGER CLIENT SUPPORT>400 [facility] NOW RAPID TESTING)2020-04-22 02:52:00* Test Item Value Reference Range Interpretation Comme nts SARS-CoV-2 Rapid ID NOW (test code = 93135-1) Not Detected Not Detected BEVERLY (test code = BEVERLY) ID NOW COVID-19 As say is an isothermal nucleic acid amplification test intended for the qualitative detection of nucleic acid from SARS-CoV-2 viral RNA in nasopharyngeal (RECYCLING DIRECTOR) specimens. It is used under Emergency Use Authorization (EUA) by FDA. The limit of detection (LOD) of the assay is 125 Genome Equivalents/mL. A positive result is indicative of the presence of SARS-CoV-2 RNA. ?Clinical correlation with patient history and other diagnostic information is necessary to determine patient infection status. A negative (Not Detected) result does not preclude SARS-CoV-2 infection. In patients with clinical symptoms and other tests that are consistent with SARS-CoV-2 infection, negative results should be treated as presumptive negative and a new specimen should be tested with alternative PCR molecular test. Invalid: Please collect a new specimen for repeat patient testing if clinically indicated. Lab Interpretation (test code = 06224-8) Normal [facility]-19 (ID NOW RAPID TESTING)2020-04-22 02:52:00* Test Item Value Reference Range Interpretation Comme nts SARS-CoV-2 Rapid ID NOW (test code = 46556-4) Not Detected Not Detected BEVERLY (test code = BEVERLY) ID NOW COVID-19 As say is an isothermal nucleic acid amplification test intended for the qualitative detection of nucleic acid from SARS-CoV-2 viral RNA in nasopharyngeal (RECYCLING DIRECTOR) specimens. It is used under Emergency Use Authorization (EUA) by FDA. The limit of detection (LOD) of the assay is 125 Genome Equivalents/mL. A positive result is indicative of the presence of SARS-CoV-2 RNA. ?Clinical correlation with patient history and other diagnostic information is necessary to determine patient infection status. A negative (Not Detected) result does not preclude SARS-CoV-2 infection. In patients with clinical symptoms and other tests that are consistent with SARS-CoV-2 infection, negative results should be treated as presumptive negative and a new specimen should be tested with alternative PCR molecular test. Invalid: Please collect a new specimen for repeat patient testing if clinically indicated. Lab Interpretation (test code = 87533-0) [facility]-19 (ID NOW RAPID TESTING)2020-04-22 02:52:00* Test Item Value Reference Range Interpretation Comme nts SARS-CoV-2 Rapid ID NOW (test code = 15809-4) Not Detected Not Detected BEVERLY (test code = BEVERLY) ID NOW COVID-19 As say is an isothermal nucleic acid amplification test intended for the qualitative detection of nucleic acid from SARS-CoV-2 viral RNA in nasopharyngeal (RECYCLING DIRECTOR) specimens. It is used under Emergency Use Authorization (EUA) by FDA. The limit of detection (LOD) of the assay is 125 Genome Equivalents/mL. A positive result is indicative of the presence of SARS-CoV-2 RNA. ?Clinical correlation with patient history and other diagnostic information is necessary to determine patient infection status. A negative (Not Detected) result does not preclude SARS-CoV-2 infection. In patients with clinical symptoms and other tests that are consistent with SARS-CoV-2 infection, negative results should be treated as presumptive negative and a new specimen should be tested with alternative PCR molecular test. Invalid: Please collect a new specimen for repeat patient testing if clinically indicated. Lab Interpretation (test code = 57191-9) Normal [facility]-19 (ID NOW RAPID TESTING)2020-04-22 02:52:00* Test Item Value Reference Range Interpretation Comme nts SARS-CoV-2 Rapid ID NOW (test code = 90074-6) Not Detected Not Detected BEVERLY (test code = BEVERLY) ID NOW COVID-19 As say is an isothermal nucleic acid amplification test intended for the qualitative detection of nucleic acid from SARS-CoV-2 viral RNA in nasopharyngeal (RECYCLING DIRECTOR) specimens. It is used under Emergency Use Authorization (EUA) by FDA. The limit of detection (LOD) of the assay is 125 Genome Equivalents/mL. A positive result is indicative of the presence of SARS-CoV-2 RNA. ?Clinical correlation with patient history and other diagnostic information is necessary to determine patient infection status. A negative (Not Detected) result does not preclude SARS-CoV-2 infection. In patients with clinical symptoms and other tests that are consistent with SARS-CoV-2 infection, negative results should be treated as presumptive negative and a new specimen should be tested with alternative PCR molecular test. Invalid: Please collect a new specimen for repeat patient testing if clinically indicated. Lab Interpretation (test code = 06179-0) [facility]-19 (ID NOW RAPID TESTING)2020-04-22 02:52:00* Test Item Value Reference Range Interpretation Comme nts SARS-CoV-2 Rapid ID NOW (test code = 56153-2) Not Detected Not Detected BEVERLY (test code = BEVERLY) ID NOW COVID-19 As say is an isothermal nucleic acid amplification test intended for the qualitative detection of nucleic acid from SARS-CoV-2 viral RNA in nasopharyngeal (RECYCLING DIRECTOR) specimens. It is used under Emergency Use Authorization (EUA) by FDA. The limit of detection (LOD) of the assay is 125 Genome Equivalents/mL. A positive result is indicative of the presence of SARS-CoV-2 RNA. ?Clinical correlation with patient history and other diagnostic information is necessary to determine patient infection status. A negative (Not Detected) result does not preclude SARS-CoV-2 infection. In patients with clinical symptoms and other tests that are consistent with SARS-CoV-2 infection, negative results should be treated as presumptive negative and a new specimen should be tested with alternative PCR molecular test. Invalid: Please collect a new specimen for repeat patient testing if clinically indicated. Lab Interpretation (test code = 66336-1) [facility]-19 (ID NOW RAPID TESTING)2020-04-22 02:52:00* Test Item Value Reference Range Interpretation Comme nts SARS-CoV-2 Rapid ID NOW (test code = 11426-0) Not Detected Not Detected BEVERLY (test code = BEVERLY) ID NOW COVID-19 As say is an isothermal nucleic acid amplification test intended for the qualitative detection of nucleic acid from SARS-CoV-2 viral RNA in nasopharyngeal (RECYCLING DIRECTOR) specimens. It is used under Emergency Use Authorization (EUA) by FDA. The limit of detection (LOD) of the assay is 125 Genome Equivalents/mL. A positive result is indicative of the presence of SARS-CoV-2 RNA. ?Clinical correlation with patient history and other diagnostic information is necessary to determine patient infection status. A negative (Not Detected) result does not preclude SARS-CoV-2 infection. In patients with clinical symptoms and other tests that are consistent with SARS-CoV-2 infection, negative results should be treated as presumptive negative and a new specimen should be tested with alternative PCR molecular test. Invalid: Please collect a new specimen for repeat patient testing if clinically indicated. Lab Interpretation (test code = 62808-1) [facility]-19 (ID NOW RAPID TESTING)2020-04-22 02:52:00* Test Item Value Reference Range Interpretation Comme nts SARS-CoV-2 Rapid ID NOW (test code = 12332-3) Not Detected Not Detected BEVERLY (test code = BEVERLY) ID NOW COVID-19 As say is an isothermal nucleic acid amplification test intended for the qualitative detection of nucleic acid from SARS-CoV-2 viral RNA in nasopharyngeal (RECYCLING DIRECTOR) specimens. It is used under Emergency Use Authorization (EUA) by FDA. The limit of detection (LOD) of the assay is 125 Genome Equivalents/mL. A positive result is indicative of the presence of SARS-CoV-2 RNA. ?Clinical correlation with patient history and other diagnostic information is necessary to determine patient infection status. A negative (Not Detected) result does not preclude SARS-CoV-2 infection. In patients with clinical symptoms and other tests that are consistent with SARS-CoV-2 infection, negative results should be treated as presumptive negative and a new specimen should be tested with alternative PCR molecular test. Invalid: Please collect a new specimen for repeat patient testing if clinically indicated. Lab Interpretation (test code = 79974-3) [facility]-19 (ID NOW RAPID TESTING)2020-04-22 02:52:00* Test Item Value Reference Range Interpretation Comme nts SARS-CoV-2 Rapid ID NOW (test code = 60481-1) Not Detected Not Detected BEVERLY (test code = BEVERLY) ID NOW COVID-19 As say is an isothermal nucleic acid amplification test intended for the qualitative detection of nucleic acid from SARS-CoV-2 viral RNA in nasopharyngeal (RECYCLING DIRECTOR) specimens. It is used under Emergency Use Authorization (EUA) by FDA. The limit of detection (LOD) of the assay is 125 Genome Equivalents/mL. A positive result is indicative of the presence of SARS-CoV-2 RNA. ?Clinical correlation with patient history and other diagnostic information is necessary to determine patient infection status. A negative (Not Detected) result does not preclude SARS-CoV-2 infection. In patients with clinical symptoms and other tests that are consistent with SARS-CoV-2 infection, negative results should be treated as presumptive negative and a new specimen should be tested with alternative PCR molecular test. Invalid: Please collect a new specimen for repeat patient testing if clinically indicated. Lab Interpretation (test code = 17863-2) [facility] [facility] (ID NOW RAPID TESTING)2020-04-22 02:52:00* Test Item Value Reference Range Interpretation Comme [facility] SARS-CoV-2 Rapid ID NOW (test code = 66984-9) Not Detected Not Detected BEVERLY (test code = BEVERLY) ID NOW COVID-19 As say is an isothermal nucleic acid amplification test intended for the qualitative detection of nucleic acid from SARS-CoV-2 viral RNA in nasopharyngeal (RECYCLING DIRECTOR) specimens. It is used under Emergency Use Authorization (EUA) by FDA. The limit of detection (LOD) of the assay is 125 Genome Equivalents/mL. A positive result is indicative of the presence of SARS-CoV-2 RNA. ?Clinical correlation with patient history and other diagnostic information is necessary to determine patient infection status. A negative (Not Detected) result does not preclude SARS-CoV-2 infection. In patients with clinical symptoms and other tests that are consistent with SARS-CoV-2 infection, negative results should be treated as presumptive negative and a new specimen should be tested with alternative PCR molecular test. Invalid: Please collect a new specimen for repeat patient testing if clinically indicated. Lab Interpretation (test code = 29507-6) [facility] (ID NOW RAPID TESTING)2020-04-22 02:52:00* Test Item Value Reference Range Interpretation Comme nts SARS-CoV-2 Rapid ID NOW (test code = 41453-2) Not Detected Not Detected BEVERLY (test code = BEVELRY) ID NOW COVID-19 As say is an isothermal nucleic acid amplification test intended for the qualitative detection of nucleic acid from SARS-CoV-2 viral RNA in nasopharyngeal (RECYCLING DIRECTOR) specimens. It is used under Emergency Use Authorization (EUA) by FDA. The limit of detection (LOD) of the assay is 125 Genome Equivalents/mL. A positive result is indicative of the presence of SARS-CoV-2 RNA. ?Clinical correlation with patient history and other diagnostic information is necessary to determine patient infection status. A negative (Not Detected) result does not preclude SARS-CoV-2 infection. In patients with clinical symptoms and other tests that are consistent with SARS-CoV-2 infection, negative results should be treated as presumptive negative and a new specimen should be tested with alternative PCR molecular test. Invalid: Please collect a new specimen for repeat patient testing if clinically indicated. Lab Interpretation (test code = 54979-1) [facility]-19 (ID NOW RAPID TESTING)2020-04-22 02:52:00* Test Item Value Reference Range Interpretation Comme nts SARS-CoV-2 Rapid ID NOW (test code = 86534-5) Not Detected Not Detected BEVERLY (test code = BEVERLY) ID NOW COVID-19 As say is an isothermal nucleic acid amplification test intended for the qualitative detection of nucleic acid from SARS-CoV-2 viral RNA in nasopharyngeal (RECYCLING DIRECTOR) specimens. It is used under Emergency Use Authorization (EUA) by FDA. The limit of detection (LOD) of the assay is 125 Genome Equivalents/mL. A positive result is indicative of the presence of SARS-CoV-2 RNA. ?Clinical correlation with patient history and other diagnostic information is necessary to determine patient infection status. A negative (Not Detected) result does not preclude SARS-CoV-2 infection. In patients with clinical symptoms and other tests that are consistent with SARS-CoV-2 infection, negative results should be treated as presumptive negative and a new specimen should be tested with alternative PCR molecular test. Invalid: Please collect a new specimen for repeat patient testing if clinically indicated. Lab Interpretation (test code = 49406-9) [place] [address] (ID NOW RAPID TESTING)2020-04-22 02:52:00* Test Item Value Reference Range Interpretation Comme nts SARS-CoV-2 Rapid ID NOW (test code = 53891-0) Not Detected Not Detected BEVERLY (test code = BEVERLY) ID NOW COVID-19 As say is an isothermal nucleic acid amplification test intended for the qualitative detection of nucleic acid from SARS-CoV-2 viral RNA in nasopharyngeal (RECYCLING DIRECTOR) specimens. It is used under Emergency Use Authorization (EUA) by FDA. The limit of detection (LOD) of the assay is 125 Genome Equivalents/mL. A positive result is indicative of the presence of SARS-CoV-2 RNA. ?Clinical correlation with patient history and other diagnostic information is necessary to determine patient infection status. A negative (Not Detected) result does not preclude SARS-CoV-2 infection. In patients with clinical symptoms and other tests that are consistent with SARS-CoV-2 infection, negative results should be treated as presumptive negative and a new specimen should be tested with alternative PCR molecular test. Invalid: Please collect a new specimen for repeat patient testing if clinically indicated. Lab Interpretation (test code = 19991-2) [place] [address] (ID NOW RAPID TESTING)2020-04-22 02:52:00* Test Item Value Reference Range Interpretation Comme nts SARS-CoV-2 Rapid ID NOW (test code = 05200-4) Not Detected Not Detected BEVERLY (test code = BEVERLY) ID NOW COVID-19 As say is an isothermal nucleic acid amplification test intended for the qualitative detection of nucleic acid from SARS-CoV-2 viral RNA in nasopharyngeal (RECYCLING DIRECTOR) specimens. It is used under Emergency Use Authorization (EUA) by FDA. The limit of detection (LOD) of the assay is 125 Genome Equivalents/mL. A positive result is indicative of the presence of SARS-CoV-2 RNA. ?Clinical correlation with patient history and other diagnostic information is necessary to determine patient infection status. A negative (Not Detected) result does not preclude SARS-CoV-2 infection. In patients with clinical symptoms and other tests that are consistent with SARS-CoV-2 infection, negative results should be treated as presumptive negative and a new specimen should be tested with alternative PCR molecular test. Invalid: Please collect a new specimen for repeat patient testing if clinically indicated. Lab Interpretation (test code = 39874-7) [place] [address] (ID NOW RAPID TESTING)2020-04-22 02:52:00* Test Item Value Reference Range Interpretation Comme nts SARS-CoV-2 Rapid ID NOW (test code = 30755-2) Not Detected Not Detected BEVERLY (test code = BEVERLY) ID NOW COVID-19 As say is an isothermal nucleic acid amplification test intended for the qualitative detection of nucleic acid from SARS-CoV-2 viral RNA in nasopharyngeal (RECYCLING DIRECTOR) specimens. It is used under Emergency Use Authorization (EUA) by FDA. The limit of detection (LOD) of the assay is 125 Genome Equivalents/mL. A positive result is indicative of the presence of SARS-CoV-2 RNA. ?Clinical correlation with patient history and other diagnostic information is necessary to determine patient infection status. A negative (Not Detected) result does not preclude SARS-CoV-2 infection. In patients with clinical symptoms and other tests that are consistent with SARS-CoV-2 infection, negative results should be treated as presumptive negative and a new specimen should be tested with alternative PCR molecular test. Invalid: Please collect a new specimen for repeat patient testing if clinically indicated. Lab Interpretation (test code = 97845-8) [place] [address] (ID NOW RAPID TESTING)2020-04-22 02:52:00* Test Item Value Reference Range Interpretation Comme nts SARS-CoV-2 Rapid ID NOW (test code = 33117-8) Not Detected Not Detected BEVERLY (test code = BEVERLY) ID NOW COVID-19 As say is an isothermal nucleic acid amplification test intended for the qualitative detection of nucleic acid from SARS-CoV-2 viral RNA in nasopharyngeal (RECYCLING DIRECTOR) specimens. It is used under Emergency Use Authorization (EUA) by FDA. The limit of detection (LOD) of the assay is 125 Genome Equivalents/mL. A positive result is indicative of the presence of SARS-CoV-2 RNA. ?Clinical correlation with patient history and other diagnostic information is necessary to determine patient infection status. A negative (Not Detected) result does not preclude SARS-CoV-2 infection. In patients with clinical symptoms and other tests that are consistent with SARS-CoV-2 infection, negative results should be treated as presumptive negative and a new specimen should be tested with alternative PCR molecular test. Invalid: Please collect a new specimen for repeat patient testing if clinically indicated. Lab Interpretation (test code = 83504-3) [place] [address] (ID NOW RAPID TESTING)2020-04-22 02:52:00* Test Item Value Reference Range Interpretation Comme nts SARS-CoV-2 Rapid ID NOW (test code = 73005-9) Not Detected Not Detected BEVERLY (test code = BEVERLY) ID NOW COVID-19 As say is an isothermal nucleic acid amplification test intended for the qualitative detection of nucleic acid from SARS-CoV-2 viral RNA in nasopharyngeal (RECYCLING DIRECTOR) specimens. It is used under Emergency Use Authorization (EUA) by FDA. The limit of detection (LOD) of the assay is 125 Genome Equivalents/mL. A positive result is indicative of the presence of SARS-CoV-2 RNA. ?Clinical correlation with patient history and other diagnostic information is necessary to determine patient infection status. A negative (Not Detected) result does not preclude SARS-CoV-2 infection. In patients with clinical symptoms and other tests that are consistent with SARS-CoV-2 infection, negative results should be treated as presumptive negative and a new specimen should be tested with alternative PCR molecular test. Invalid: Please collect a new specimen for repeat patient testing if clinically indicated. Lab Interpretation (test code = 54938-5) [place] [address] (ID NOW RAPID TESTING)2020-04-22 02:52:00* Test Item Value Reference Range Interpretation Comme nts SARS-CoV-2 Rapid ID NOW (test code = 99344-3) Not Detected Not Detected BEVERLY (test code = BEVERLY) ID NOW COVID-19 As say is an isothermal nucleic acid amplification test intended for the qualitative detection of nucleic acid from SARS-CoV-2 viral RNA in nasopharyngeal (RECYCLING DIRECTOR) specimens. It is used under Emergency Use Authorization (EUA) by FDA. The limit of detection (LOD) of the assay is 125 Genome Equivalents/mL. A positive result is indicative of the presence of SARS-CoV-2 RNA. ?Clinical correlation with patient history and other diagnostic information is necessary to determine patient infection status. A negative (Not Detected) result does not preclude SARS-CoV-2 infection. In patients with clinical symptoms and other tests that are consistent with SARS-CoV-2 infection, negative results should be treated as presumptive negative and a new specimen should be tested with alternative PCR molecular test. Invalid: Please collect a new specimen for repeat patient testing if clinically indicated. Lab Interpretation (test code = 42529-1) [facility]-19 (ID NOW RAPID TESTING)2020-04-22 02:52:00* Test Item Value Reference Range Interpretation Comme nts SARS-CoV-2 Rapid ID NOW (test code = 13987-3) Not Detected Not Detected BEVERLY (test code = BEVERLY) ID NOW COVID-19 As say is an isothermal nucleic acid amplification test intended for the qualitative detection of nucleic acid from SARS-CoV-2 viral RNA in nasopharyngeal (RECYCLING DIRECTOR) specimens. It is used under Emergency Use Authorization (EUA) by FDA. The limit of detection (LOD) of the assay is 125 Genome Equivalents/mL. A positive result is indicative of the presence of SARS-CoV-2 RNA. ?Clinical correlation with patient history and other diagnostic information is necessary to determine patient infection status. A negative (Not Detected) result does not preclude SARS-CoV-2 infection. In patients with clinical symptoms and other tests that are consistent with SARS-CoV-2 infection, negative results should be treated as presumptive negative and a new specimen should be tested with alternative PCR molecular test. Invalid: Please collect a new specimen for repeat patient testing if clinically indicated. Lab Interpretation (test code = 31878-6) [facility]-19 (ID NOW RAPID TESTING)2020-04-22 02:52:00* Test Item Value Reference Range Interpretation Comme nts SARS-CoV-2 Rapid ID NOW (test code = 12733-8) Not Detected Not Detected BEVERLY (test code = BEVERLY) ID NOW COVID-19 As say is an isothermal nucleic acid amplification test intended for the qualitative detection of nucleic acid from SARS-CoV-2 viral RNA in nasopharyngeal (RECYCLING DIRECTOR) specimens. It is used under Emergency Use Authorization (EUA) by FDA. The limit of detection (LOD) of the assay is 125 Genome Equivalents/mL. A positive result is indicative of the presence of SARS-CoV-2 RNA. ?Clinical correlation with patient history and other diagnostic information is necessary to determine patient infection status. A negative (Not Detected) result does not preclude SARS-CoV-2 infection. In patients with clinical symptoms and other tests that are consistent with SARS-CoV-2 infection, negative results should be treated as presumptive negative and a new specimen should be tested with alternative PCR molecular test. Invalid: Please collect a new specimen for repeat patient testing if clinically indicated. Lab Interpretation (test code = 04807-3) [facility]-19 (ID NOW RAPID TESTING)2020-04-22 02:52:00* Test Item Value Reference Range Interpretation Comme nts SARS-CoV-2 Rapid ID NOW (test code = 93067-1) Not Detected Not Detected BEVERLY (test code = BEVERYL) ID NOW COVID-19 As say is an isothermal nucleic acid amplification test intended for the qualitative detection of nucleic acid from SARS-CoV-2 viral RNA in nasopharyngeal (RECYCLING DIRECTOR) specimens. It is used under Emergency Use Authorization (EUA) by FDA. The limit of detection (LOD) of the assay is 125 Genome Equivalents/mL. A positive result is indicative of the presence of SARS-CoV-2 RNA. ?Clinical correlation with patient history and other diagnostic information is necessary to determine patient infection status. A negative (Not Detected) result does not preclude SARS-CoV-2 infection. In patients with clinical symptoms and other tests that are consistent with SARS-CoV-2 infection, negative results should be treated as presumptive negative and a new specimen should be tested with alternative PCR molecular test. Invalid: Please collect a new specimen for repeat patient testing if clinically indicated. Lab Interpretation (test code = 73622-5) [facility]-19 (ID NOW RAPID TESTING)2020-04-22 02:52:00* Test Item Value Reference Range Interpretation Comme nts SARS-CoV-2 Rapid ID NOW (test code = 18106-4) Not Detected Not Detected BEVERLY (test code = BEVERLY) ID NOW COVID-19 As say is an isothermal nucleic acid amplification test intended for the qualitative detection of nucleic acid from SARS-CoV-2 viral RNA in nasopharyngeal (RECYCLING DIRECTOR) specimens. It is used under Emergency Use Authorization (EUA) by FDA. The limit of detection (LOD) of the assay is 125 Genome Equivalents/mL. A positive result is indicative of the presence of SARS-CoV-2 RNA. ?Clinical correlation with patient history and other diagnostic information is necessary to determine patient infection status. A negative (Not Detected) result does not preclude SARS-CoV-2 infection. In patients with clinical symptoms and other tests that are consistent with SARS-CoV-2 infection, negative results should be treated as presumptive negative and a new specimen should be tested with alternative PCR molecular test. Invalid: Please collect a new specimen for repeat patient testing if clinically indicated. Lab Interpretation (test code = 78205-6) Normal [facility]-19 (ID NOW RAPID TESTING)2020-04-22 02:52:00* Test Item Value Reference Range Interpretation Comme nts SARS-CoV-2 Rapid ID NOW (test code = 17855-2) Not Detected Not Detected BEVERLY (test code = BEVERLY) ID NOW COVID-19 As say is an isothermal nucleic acid amplification test intended for the qualitative detection of nucleic acid from SARS-CoV-2 viral RNA in nasopharyngeal (RECYCLING DIRECTOR) specimens. It is used under Emergency Use Authorization (EUA) by FDA. The limit of detection (LOD) of the assay is 125 Genome Equivalents/mL. A positive result is indicative of the presence of SARS-CoV-2 RNA. ?Clinical correlation with patient history and other diagnostic information is necessary to determine patient infection status. A negative (Not Detected) result does not preclude SARS-CoV-2 infection. In patients with clinical symptoms and other tests that are consistent with SARS-CoV-2 infection, negative results should be treated as presumptive negative and a new specimen should be tested with alternative PCR molecular test. Invalid: Please collect a new specimen for repeat patient testing if clinically indicated. Lab Interpretation (test code = 30998-5) [facility]-19 (ID NOW RAPID TESTING)2020-04-22 02:52:00* Test Item Value Reference Range Interpretation Comme nts SARS-CoV-2 Rapid ID NOW (test code = 43920-4) Not Detected Not Detected BEVERLY (test code = BEVERLY) ID NOW COVID-19 As say is an isothermal nucleic acid amplification test intended for the qualitative detection of nucleic acid from SARS-CoV-2 viral RNA in nasopharyngeal (RECYCLING DIRECTOR) specimens. It is used under Emergency Use Authorization (EUA) by FDA. The limit of detection (LOD) of the assay is 125 Genome Equivalents/mL. A positive result is indicative of the presence of SARS-CoV-2 RNA. ?Clinical correlation with patient history and other diagnostic information is necessary to determine patient infection status. A negative (Not Detected) result does not preclude SARS-CoV-2 infection. In patients with clinical symptoms and other tests that are consistent with SARS-CoV-2 infection, negative results should be treated as presumptive negative and a new specimen should be tested with alternative PCR molecular test. Invalid: Please collect a new specimen for repeat patient testing if clinically indicated. Lab Interpretation (test code = 06658-5) [facility]-19 (ID NOW RAPID TESTING)2020-04-22 02:52:00* Test Item Value Reference Range Interpretation Comme nts SARS-CoV-2 Rapid ID NOW (test code = 40889-2) Not Detected Not Detected BEVERLY (test code = BEVERLY) ID NOW COVID-19 As say is an isothermal nucleic acid amplification test intended for the qualitative detection of nucleic acid from SARS-CoV-2 viral RNA in nasopharyngeal (RECYCLING DIRECTOR) specimens. It is used under Emergency Use Authorization (EUA) by FDA. The limit of detection (LOD) of the assay is 125 Genome Equivalents/mL. A positive result is indicative of the presence of SARS-CoV-2 RNA. ?Clinical correlation with patient history and other diagnostic information is necessary to determine patient infection status. A negative (Not Detected) result does not preclude SARS-CoV-2 infection. In patients with clinical symptoms and other tests that are consistent with SARS-CoV-2 infection, negative results should be treated as presumptive negative and a new specimen should be tested with alternative PCR molecular test. Invalid: Please collect a new specimen for repeat patient testing if clinically indicated. Lab Interpretation (test code = 79616-4) [facility]2020[facility] 02:52:00* Test Item Value Reference Range Interpretation Comme nts SARS-CoV-2 Rapid ID NOW (test code = 85604-6) Not Detected Not Detected BEVERLY (test code = BEVERLY) ID NOW COVID-19 As say is an isothermal nucleic acid amplification test intended for the qualitative detection of nucleic acid from SARS-CoV-2 viral RNA in nasopharyngeal (RECYCLING DIRECTOR) specimens. It is used under Emergency Use Authorization (EUA) by FDA. The limit of detection (LOD) of the assay is 125 Genome Equivalents/mL. A positive result is indicative of the presence of SARS-CoV-2 RNA. ?Clinical correlation with patient history and other diagnostic information is necessary to determine patient infection status. A negative (Not Detected) result does not preclude SARS-CoV-2 infection. In patients with clinical symptoms and other tests that are consistent with SARS-CoV-2 infection, negative results should be treated as presumptive negative and a new specimen should be tested with alternative PCR molecular test. Invalid: Please collect a new specimen for repeat patient testing if clinically indicated. Lab Interpretation (test code = 83047-8) [facility]-19 (ID NOW RAPID TESTING)2020-04-22 02:52:00* Test Item Value Reference Range Interpretation Comme nts SARS-CoV-2 Rapid ID NOW (test code = 63296-8) Not Detected Not Detected BEVERLY (test code = BEVERLY) ID NOW COVID-19 As say is an isothermal nucleic acid amplification test intended for the qualitative detection of nucleic acid from SARS-CoV-2 viral RNA in nasopharyngeal (RECYCLING DIRECTOR) specimens. It is used under Emergency Use Authorization (EUA) by FDA. The limit of detection (LOD) of the assay is 125 Genome Equivalents/mL. A positive result is indicative of the presence of SARS-CoV-2 RNA. ?Clinical correlation with patient history and other diagnostic information is necessary to determine patient infection status. A negative (Not Detected) result does not preclude SARS-CoV-2 infection. In patients with clinical symptoms and other tests that are consistent with SARS-CoV-2 infection, negative results should be treated as presumptive negative and a new specimen should be tested with alternative PCR molecular test. Invalid: Please collect a new specimen for repeat patient testing if clinically indicated. Lab Interpretation (test code = 53875-3) [facility]2020-[facility]22 02:52:00* Test Item Value Reference Range Interpretation Comme nts SARS-CoV-2 Rapid ID NOW (test code = 11526-6) Not Detected Not Detected BEVERLY (test code = BEVERLY) ID NOW COVID-19 As say is an isothermal nucleic acid amplification test intended for the qualitative detection of nucleic acid from SARS-CoV-2 viral RNA in nasopharyngeal (RECYCLING DIRECTOR) specimens. It is used under Emergency Use Authorization (EUA) by FDA. The limit of detection (LOD) of the assay is 125 Genome Equivalents/mL. A positive result is indicative of the presence of SARS-CoV-2 RNA. ?Clinical correlation with patient history and other diagnostic information is necessary to determine patient infection status. A negative (Not Detected) result does not preclude SARS-CoV-2 infection. In patients with clinical symptoms and other tests that are consistent with SARS-CoV-2 infection, negative results should be treated as presumptive negative and a new specimen should be tested with alternative PCR molecular test. Invalid: Please collect a new specimen for repeat patient testing if clinically indicated. Lab Interpretation (test code = 05416-2) [facility]2020-04-22 02:52:00* Test Item Value Reference Range Interpretation Comme nts SARS-CoV-2 Rapid ID NOW (test code = 11537-1) Not Detected Not Detected BEVERLY (test code = BEVERLY) ID NOW COVID-19 As say is an isothermal nucleic acid amplification test intended for the qualitative detection of nucleic acid from SARS-CoV-2 viral RNA in nasopharyngeal (RECYCLING DIRECTOR) specimens. It is used under Emergency Use Authorization (EUA) by FDA. The limit of detection (LOD) of the assay is 125 Genome Equivalents/mL. A positive result is indicative of the presence of SARS-CoV-2 RNA. ?Clinical correlation with patient history and other diagnostic information is necessary to determine patient infection status. A negative (Not Detected) result does not preclude SARS-CoV-2 infection. In patients with clinical symptoms and other tests that are consistent with SARS-CoV-2 infection, negative results should be treated as presumptive negative and a new specimen should be tested with alternative PCR molecular test. Invalid: Please collect a new specimen for repeat patient testing if clinically indicated. Lab Interpretation (test code = 31284-5) [facility] RAPID TESTING)2020-04-22 02:52:00* Test Item Value Reference Range Interpretation Comme nts SARS-CoV-2 Rapid ID NOW (test code = 63821-6) Not Detected Not Detected BEVERLY (test code = BEVERLY) ID NOW COVID-19 As say is an isothermal nucleic acid amplification test intended for the qualitative detection of nucleic acid from SARS-CoV-2 viral RNA in nasopharyngeal (RECYCLING DIRECTOR) specimens. It is used under Emergency Use Authorization (EUA) by FDA. The limit of detection (LOD) of the assay is 125 Genome Equivalents/mL. A positive result is indicative of the presence of SARS-CoV-2 RNA. ?Clinical correlation with patient history and other diagnostic information is necessary to determine patient infection status. A negative (Not Detected) result does not preclude SARS-CoV-2 infection. In patients with clinical symptoms and other tests that are consistent with SARS-CoV-2 infection, negative results should be treated as presumptive negative and a new specimen should be tested with alternative PCR molecular test. Invalid: Please collect a new specimen for repeat patient testing if clinically indicated. Lab Interpretation (test code = 06418-7) [facility]2020-04-22 02:52:00* Test Item Value Reference Range Interpretation Comme nts SARS-CoV-2 Rapid ID NOW (test code = 23863-8) Not Detected Not Detected BEVERLY (test code = BEVERLY) ID NOW COVID-19 As say is an isothermal nucleic acid amplification test intended for the qualitative detection of nucleic acid from SARS-CoV-2 viral RNA in nasopharyngeal (RECYCLING DIRECTOR) specimens. It is used under Emergency Use Authorization (EUA) by [facility]. The limit of detection (LOD) of the assay is 125 Genome Equivalents/mL. A positive result is indicative of the presence of SARS-CoV-2 RNA. ?Clinical correlation with patient history and other diagnostic information is necessary to determine patient infection status. A negative (Not Detected) result does not preclude SARS-CoV-2 infection. In patients with clinical symptoms and other tests that are consistent with SARS-CoV-2 infection, negative results should be treated as presumptive negative and a new specimen should be tested with alternative PCR molecular test. Invalid: Please collect a new specimen for repeat patient testing if clinically indicated. Lab Interpretation (test code = 97387-6) [facility]2020-04-22 02:52:00* Test Item Value Reference Range Interpretation Comme nts SARS-CoV-2 Rapid ID NOW (test code = 04275-0) Not Detected Not Detected BEVERLY (test code = BEVERLY) ID NOW COVID-19 As say is an isothermal nucleic acid amplification test intended for the qualitative detection of nucleic acid from SARS-CoV-2 viral RNA in nasopharyngeal (RECYCLING DIRECTOR) specimens. It is used under Emergency Use Authorization (EUA) by FDA. The limit of detection (LOD) of the assay is 125 Genome Equivalents/mL. A positive result is indicative of the presence of SARS-CoV-2 RNA. ?Clinical correlation with patient history and other diagnostic information is necessary to determine patient infection status. A negative (Not Detected) result does not preclude SARS-CoV-2 infection. In patients with clinical symptoms and other tests that are consistent with SARS-CoV-2 infection, negative results should be treated as presumptive negative and a new specimen should be tested with alternative PCR molecular test. Invalid: Please collect a new specimen for repeat patient testing if clinically indicated. Lab Interpretation (test code = 73523-5) [facility]ID [facility]2020-04-22 02:52:00* Test Item Value Reference Range Interpretation Comme nts SARS-CoV-2 Rapid ID NOW (test code = 19180-1) Not Detected Not Detected BEVERLY (test code = BEVERLY) ID NOW COVID-19 As say is an isothermal nucleic acid amplification test intended for the qualitative detection of nucleic acid from SARS-CoV-2 viral RNA in nasopharyngeal (RECYCLING DIRECTOR) specimens. It is used under Emergency Use Authorization (EUA) by FDA. The limit of detection (LOD) of the assay is 125 Genome Equivalents/mL. A positive result is indicative of the presence of SARS-CoV-2 RNA. ?Clinical correlation with patient history and other diagnostic information is necessary to determine patient infection status. A negative (Not Detected) result does not preclude SARS-CoV-2 infection. In patients with clinical symptoms and other tests that are consistent with SARS-CoV-2 infection, negative results should be treated as presumptive negative and a new specimen should be tested with alternative PCR molecular test. Invalid: Please collect a new specimen for repeat patient testing if clinically indicated. Lab Interpretation (test code = 91275-2) [facility]ID TESTING)2020-04-22 02:52:00* Test Item Value Reference Range Interpretation Comme nts SARS-CoV-2 Rapid ID NOW (test code = 29993-1) Not Detected Not Detected BEVERLY (test code = BEVERLY) ID NOW COVID-19 As say is an isothermal nucleic acid amplification test intended for the qualitative detection of nucleic acid from SARS-CoV-2 viral RNA in nasopharyngeal (RECYCLING DIRECTOR) specimens. It is used under Emergency Use Authorization (EUA) by FDA. The limit of detection (LOD) of the assay is 125 Genome Equivalents/mL. A positive result is indicative of the presence of SARS-CoV-2 RNA. ?Clinical correlation with patient history and other diagnostic information is necessary to determine patient infection status. A negative (Not Detected) result does not preclude SARS-CoV-2 infection. In patients with clinical symptoms and other tests that are consistent with SARS-CoV-2 infection, negative results should be treated as presumptive negative and a new specimen should be tested with alternative PCR molecular test. Invalid: Please collect a new specimen for repeat patient testing if clinically indicated. Lab Interpretation (test code = 38743-6) [facility]ID [facility]2020-04-22 02:52:00* Test Item Value Reference Range Interpretation Comme nts SARS-CoV-2 Rapid ID NOW (test code = 01508-9) Not Detected Not Detected BEVERLY (test code = BEVERLY) ID NOW COVID-19 As say is an isothermal nucleic acid amplification test intended for the qualitative detection of nucleic acid from SARS-CoV-2 viral RNA in nasopharyngeal (RECYCLING DIRECTOR) specimens. It is used under Emergency Use Authorization (EUA) by FDA. The limit of detection (LOD) of the assay is 125 Genome Equivalents/mL. A positive result is indicative of the presence of SARS-CoV-2 RNA. ?Clinical correlation with patient history and other diagnostic information is necessary to determine patient infection status. A negative (Not Detected) result does not preclude SARS-CoV-2 infection. In patients with clinical symptoms and other tests that are consistent with SARS-CoV-2 infection, negative results should be treated as presumptive negative and a new specimen should be tested with alternative PCR molecular test. Invalid: Please collect a new specimen for repeat patient testing if clinically indicated. Lab Interpretation (test code = 78951-3) [facility]ID TESTING)2020-04-22 02:52:00* Test Item Value Reference Range Interpretation Comme nts SARS-CoV-2 Rapid ID NOW (test code = 00596-2) Not Detected Not Detected BEVERLY (test code = BEVERLY) ID NOW COVID-19 As say is an isothermal nucleic acid amplification test intended for the qualitative detection of nucleic acid from SARS-CoV-2 viral RNA in nasopharyngeal (RECYCLING DIRECTOR) specimens. It is used under Emergency Use Authorization (EUA) by FDA. The limit of detection (LOD) of the assay is 125 Genome Equivalents/mL. A positive result is indicative of the presence of SARS-CoV-2 RNA. ?Clinical correlation with patient history and other diagnostic information is necessary to determine patient infection status. A negative (Not Detected) result does not preclude SARS-CoV-2 infection. In patients with clinical symptoms and other tests that are consistent with SARS-CoV-2 infection, negative results should be treated as presumptive negative and a new specimen should be tested with alternative PCR molecular test. Invalid: Please collect a new specimen for repeat patient testing if clinically indicated. Lab Interpretation (test code = 71505-6) [facility] NOW RAPID TESTING)2020-04-22 02:52:00* Test Item Value Reference Range Interpretation Comme nts SARS-CoV-2 Rapid ID NOW (test code = 00184-4) Not Detected Not Detected BEVERLY (test code = BEVERLY) ID NOW COVID-19 As say is an isothermal nucleic acid amplification test intended for the qualitative detection of nucleic acid from SARS-CoV-2 viral RNA in nasopharyngeal (RECYCLING DIRECTOR) specimens. It is used under Emergency Use Authorization (EUA) by FDA. The limit of detection (LOD) of the assay is 125 Genome Equivalents/mL. A positive result is indicative of the presence of SARS-CoV-2 RNA. ?Clinical correlation with patient history and other diagnostic information is necessary to determine patient infection status. A negative (Not Detected) result does not preclude SARS-CoV-2 infection. In patients with clinical symptoms and other tests that are consistent with SARS-CoV-2 infection, negative results should be treated as presumptive negative and a new specimen should be tested with alternative PCR molecular test. Invalid: Please collect a new specimen for repeat patient testing if clinically indicated. Lab Interpretation (test code = 13282-3) [facility] (NA, K, CL, CO2, GLUCOSE, BUN, CREATININE, CA)2020-04-22 02:38:00* Test Item Value Reference Range Interpretation Comme nts NA (test code = 0708953318) 139 mmol/L 135-145 K (test code = 9982943780) 4.1 mmol/L 3.5-5 CL (test code = 2974915880) 103 mmol/L 98-108 CO2 TOTAL (test code = 1469682084) 26 mmol/L 23-31 AGAP (test code = 1560012263) 2-16 BUN (test code = 0689207702) 9 mg/dL 7-23 GLUCOSE (test code = 5212343795) 115 mg/dL 70-110 H CREATININE (test code = 0535839361) 0.84 mg/dL 0.6-1.25 CALCIUM (test code = 7450918450) 8.4 mg/dL 8.6-10.6 L eGFR Calculation (Non-) (test code = 5799931244) mL/min/1.73m2 eGFR Calculation () (test code = 1740734268) mL/min/1.73m2 BEVERLY (test code = BEVERLY) Association of Glomerular Filtration Rate (GFR) and Staging of Kidney Disease* + --+ --+ ------+| GFR (mL/min/1.73 m2) ?| With Kidney Damage ?| ?Without Kidney Damage+ --------+ --------+ +| ?>90 ?| ?Stage one ?| ? Normal ?+ ---+ ---+ -------+| ?60-89 ?| ?Stage two ?| ? Decreased GFR ? + --+ --+ ------+| ?30-59 ?| ?Stage three ?| ? Stage three ? + --+ --+ ------+| ?15-29 ?| ?Stage four ? | ? Stage four ?+ ---+ ---+ -------+| ?<15 (or dialysis) ? ?| ?Stage five ? | ? Stage five ?+ ---+ ---+ -------+ *Each stage assumes the associated GFR level has been in effect for at least three months. ?Stages 1 to 5, with or without kidney disease, indicate chronic kidney disease. Notes: Determination of stages one and two (with eGFR >59mL/min/1.73 m2) requires estimation of kidney damage for at least three months as defined by structural or functional abnormalities of the kidney, manifested by either:Pathological abnormalities or Markers of kidney damage (including abnormalities in the composition of the blood or urine or abnormalities in imaging tests). Lab Interpretation (test code = 57085-2) [facility] (ALB, T.PRO, BILI T, BU/BC, ALT, AST, ALK PHOS)2020-04-22 02:38:00* Test Item Value Reference Range Interpretation Comme nts TOTAL BILI (test code = 3843443111) 0.2 mg/dL 0.1-1.1 BILI UNCON (test code = 3496252871) 0.2 mg/dL 0.1-1.1 BILI CONJ (test code = 4287014109) 0.0 mg/dL 0-0.3 T PROTEIN (test code = 4264952269) 7.2 g/dL 6.3-8.2 ALBUMIN (test code = 5906518426) 4.2 g/dL 3.5-5 ALK PHOS (test code = 6028462354) 58 U/L 34-122 ALTv (test code = 1742-6) 18 U/L 5-50 AST(SGOT) (test code = 1513266062) 21 U/L 13-40 Lab Interpretation (test cod e = 08010-9) [facility] [id number] 02:38:00* Test Item Value Reference Range Interpretation Comme nts LIPASE (test code = 3771512560) 40 U/L 0-220 Lab Interpretation (test cod e = 80385-7) [facility] [id number] 02:38:00* Test Item Value Reference Range Interpretation Comme nts LIPASE (test code = 6812992917) 40 U/L 0-220 Lab Interpretation (test cod e = 42905-5) [facility] (ALB, T.PRO, BILI T, BU/BC, ALT, AST, ALK PHOS)2020-04-22 02:38:00* Test Item Value Reference Range Interpretation Comme nts TOTAL BILI (test code = 7230223668) 0.2 mg/dL 0.1-1.1 BILI UNCON (test code = 6445730790) 0.2 mg/dL 0.1-1.1 BILI CONJ (test code = 3674392696) 0.0 mg/dL 0-0.3 T PROTEIN (test code = 0440493703) 7.2 g/dL 6.3-8.2 ALBUMIN (test code = 0759063031) 4.2 g/dL 3.5-5 ALK PHOS (test code = 1782188878) 58 U/L 34-122 ALTv (test code = 1742-6) 18 U/L 5-50 AST(SGOT) (test code = 4965650238) 21 U/L 13-40 Lab Interpretation (test cod e = 58401-7) Normal [facility] Metabolic Panel (NA, K, CL, CO2, GLUCOSE, BUN, CREATININE, CA)2020-04-22 02:38:00* Test Item Value Reference Range Interpretation Comme nts NA (test code = 7355327021) 139 mmol/L 135-145 K (test code = 1785262798) 4.1 mmol/L 3.5-5 CL (test code = 5847834118) 103 mmol/L 98-108 CO2 TOTAL (test code = 8749978044) 26 mmol/L 23-31 AGAP (test code = 8581033336) 2-16 BUN (test code = 0469837522) 9 mg/dL 7-23 GLUCOSE (test code = 6901746602) 115 mg/dL 70-110 H CREATININE (test code = 8021636880) 0.84 mg/dL 0.6-1.25 CALCIUM (test code = 3212915131) 8.4 mg/dL 8.6-10.6 L eGFR Calculation (Non-) (test code = 4892240449) mL/min/1.73m2 eGFR Calculation () (test code = 7173500372) mL/min/1.73m2 BEVERLY (test code = BEVERLY) Association of Glomerular Filtration Rate (GFR) and Staging of Kidney Disease* + --+ --+ ------+| GFR (mL/min/1.73 m2) ?| With Kidney Damage ?| ?Without Kidney Damage+ --------+ --------+ +| ?>90 ?| ?Stage one ?| ? Normal ?+ ---+ ---+ -------+| ?60-89 ?| ?Stage two ?| ? Decreased GFR ? + --+ --+ ------+| ?30-59 ?| ?Stage three ?| ? Stage three ? + --+ --+ ------+| ?15-29 ?| ?Stage four ? | ? Stage four ?+ ---+ ---+ -------+| ?<15 (or dialysis) ? ?| ?Stage five ? | ? Stage five ?+ ---+ ---+ -------+ *Each stage assumes the associated GFR level has been in effect for at least three months. ?Stages 1 to 5, with or without kidney disease, indicate chronic kidney disease. Notes: Determination of stages one and two (with eGFR >59mL/min/1.73 m2) requires estimation of kidney damage for at least three months as defined by structural or functional abnormalities of the kidney, manifested by either:Pathological abnormalities or Markers of kidney damage (including abnormalities in the composition of the blood or urine or abnormalities in imaging tests). Lab Interpretation (test code = 15080-7) [facility]normal [facility] [id number] 02:38:00* Test Item Value Reference Range Interpretation Comme nts LIPASE (test code = 3161279724) 40 U/L 0-220 Lab Interpretation (test cod e = 89854-1) [facility] (ALB, T.PRO, BILI T, BU/BC, ALT, AST, ALK PHOS)2020-04-22 02:38:00* Test Item Value Reference Range Interpretation Comme nts TOTAL BILI (test code = 5777079459) 0.2 mg/dL 0.1-1.1 BILI UNCON (test code = 1013255992) 0.2 mg/dL 0.1-1.1 BILI CONJ (test code = 5467269551) 0.0 mg/dL 0-0.3 T PROTEIN (test code = 9411480394) 7.2 g/dL 6.3-8.2 ALBUMIN (test code = 1888204590) 4.2 g/dL 3.5-5 ALK PHOS (test code = 0236940689) 58 U/L 34-122 ALTv (test code = 1742-6) 18 U/L 5-50 AST(SGOT) (test code = 7162050470) 21 U/L 13-40 Lab Interpretation (test cod e = 37359-0) [facility] (NA, K, CL, CO2, GLUCOSE, BUN, CREATININE, CA)2020-04-22 02:38:00* Test Item Value Reference Range Interpretation Comme nts NA (test code = 1096802831) 139 mmol/L 135-145 K (test code = 7828324727) 4.1 mmol/L 3.5-5 CL (test code = 5601360942) 103 mmol/L 98-108 CO2 TOTAL (test code = 2795365894) 26 mmol/L 23-31 AGAP (test code = 1398255886) 2-16 BUN (test code = 3010908681) 9 mg/dL 7-23 GLUCOSE (test code = 1170601338) 115 mg/dL 70-110 H CREATININE (test code = 3894107413) 0.84 mg/dL 0.6-1.25 CALCIUM (test code = 7891445103) 8.4 mg/dL 8.6-10.6 L eGFR Calculation (Non-) (test code = 4938029537) mL/min/1.73m2 eGFR Calculation () (test code = 8659930205) mL/min/1.73m2 BEVERLY (test code = BEVERLY) Association of Glomerular Filtration Rate (GFR) and Staging of Kidney Disease* + --+ --+ ------+| GFR (mL/min/1.73 m2) ?| With Kidney Damage ?| ?Without Kidney Damage+ --------+ --------+ +| ?>90 ?| ?Stage one ?| ? Normal ?+ ---+ ---+ -------+| ?60-89 ?| ?Stage two ?| ? Decreased GFR ? + --+ --+ ------+| ?30-59 ?| ?Stage three ?| ? Stage three ? + --+ --+ ------+| ?15-29 ?| ?Stage four ? | ? Stage four ?+ ---+ ---+ -------+| ?<15 (or dialysis) ? ?| ?Stage five ? | ? Stage five ?+ ---+ ---+ -------+ *Each stage assumes the associated GFR level has been in effect for at least three months. ?Stages 1 to 5, with or without kidney disease, indicate chronic kidney disease. Notes: Determination of stages one and two (with eGFR >59mL/min/1.73 m2) requires estimation of kidney damage for at least three months as defined by structural or functional abnormalities of the kidney, manifested by either:Pathological abnormalities or Markers of kidney damage (including abnormalities in the composition of the blood or urine or abnormalities in imaging tests). Lab Interpretation (test code = 80652-2) [facility] [id number] 02:38:00* Test Item Value Reference Range Interpretation Comme nts LIPASE (test code = 5131826352) 40 U/L 0-220 Lab Interpretation (test cod e = 62871-6) [facility] (ALB, T.PRO, BILI T, BU/BC, ALT, AST, ALK PHOS)2020-04-22 02:38:00* Test Item Value Reference Range Interpretation Comme nts TOTAL BILI (test code = 9014688504) 0.2 mg/dL 0.1-1.1 BILI UNCON (test code = 5979342638) 0.2 mg/dL 0.1-1.1 BILI CONJ (test code = 2639894150) 0.0 mg/dL 0-0.3 T PROTEIN (test code = 9075623330) 7.2 g/dL 6.3-8.2 ALBUMIN (test code = 1288463029) 4.2 g/dL 3.5-5 ALK PHOS (test code = 4244208277) 58 U/L 34-122 ALTv (test code = 1742-6) 18 U/L 5-50 AST(SGOT) (test code = 9589598993) 21 U/L 13-40 Lab Interpretation (test cod e = 73701-0) [facility] (NA, K, CL, CO2, GLUCOSE, BUN, CREATININE, CA)2020-04-22 02:38:00* Test Item Value Reference Range Interpretation Comme nts NA (test code = 3066067682) 139 mmol/L 135-145 K (test code = 9070872243) 4.1 mmol/L 3.5-5 CL (test code = 6802234708) 103 mmol/L 98-108 CO2 TOTAL (test code = 8012687255) 26 mmol/L 23-31 AGAP (test code = 4382101665) 2-16 BUN (test code = 3890106078) 9 mg/dL 7-23 GLUCOSE (test code = 2439559011) 115 mg/dL 70-110 H CREATININE (test code = 6534317939) 0.84 mg/dL 0.6-1.25 CALCIUM (test code = 4015621679) 8.4 mg/dL 8.6-10.6 L eGFR Calculation (Non-) (test code = 9900232065) mL/min/1.73m2 eGFR Calculation () (test code = 6511295874) mL/min/1.73m2 BEVERLY (test code = BEVERLY) Association of Glomerular Filtration Rate (GFR) and Staging of Kidney Disease* + --+ --+ ------+| GFR (mL/min/1.73 m2) ?| With Kidney Damage ?| ?Without Kidney Damage+ --------+ --------+ +| ?>90 ?| ?Stage one ?| ? Normal ?+ ---+ ---+ -------+| ?60-89 ?| ?Stage two ?| ? Decreased GFR ? + --+ --+ ------+| ?30-59 ?| ?Stage three ?| ? Stage three ? + --+ --+ ------+| ?15-29 ?| ?Stage four ? | ? Stage four ?+ ---+ ---+ -------+| ?<15 (or dialysis) ? ?| ?Stage five ? | ? Stage five ?+ ---+ ---+ -------+ *Each stage assumes the associated GFR level has been in effect for at least three months. ?Stages 1 to 5, with or without kidney disease, indicate chronic kidney disease. Notes: Determination of stages one and two (with eGFR >59mL/min/1.73 m2) requires estimation of kidney damage for at least three months as defined by structural or functional abnormalities of the kidney, manifested by either:Pathological abnormalities or Markers of kidney damage (including abnormalities in the composition of the blood or urine or abnormalities in imaging tests). Lab Interpretation (test code = 87671-9) [facility] [id number] 02:38:00* Test Item Value Reference Range Interpretation Comme nts LIPASE (test code = 6840372110) 40 U/L 0-220 Lab Interpretation (test cod e = 16805-3) [facility] (ALB, T.PRO, BILI T, BU/BC, ALT, AST, ALK PHOS)2020-04-22 02:38:00* Test Item Value Reference Range Interpretation Comme nts TOTAL BILI (test code = 7124320306) 0.2 mg/dL 0.1-1.1 BILI UNCON (test code = 0056423970) 0.2 mg/dL 0.1-1.1 BILI CONJ (test code = 5562497830) 0.0 mg/dL 0-0.3 T PROTEIN (test code = 1042465935) 7.2 g/dL 6.3-8.2 ALBUMIN (test code = 1581269638) 4.2 g/dL 3.5-5 ALK PHOS (test code = 7640769111) 58 U/L 34-122 ALTv (test code = 1742-6) 18 U/L 5-50 AST(SGOT) (test code = 8544799524) 21 U/L 13-40 Lab Interpretation (test cod e = 28942-9) [facility] (NA, K, CL, CO2, GLUCOSE, BUN, CREATININE, CA)2020-04-22 02:38:00* Test Item Value Reference Range Interpretation Comme nts NA (test code = 9998442416) 139 mmol/L 135-145 K (test code = 0824059924) 4.1 mmol/L 3.5-5 CL (test code = 9228675728) 103 mmol/L 98-108 CO2 TOTAL (test code = 7106315972) 26 mmol/L 23-31 AGAP (test code = 4362945197) 2-16 BUN (test code = 0211561071) 9 mg/dL 7-23 GLUCOSE (test code = 6683700642) 115 mg/dL 70-110 H CREATININE (test code = 3779204359) 0.84 mg/dL 0.6-1.25 CALCIUM (test code = 7195113793) 8.4 mg/dL 8.6-10.6 L eGFR Calculation (Non-) (test code = 9471983010) mL/min/1.73m2 eGFR Calculation () (test code = 2955315642) mL/min/1.73m2 BEVERLY (test code = BEVERLY) Association of Glomerular Filtration Rate (GFR) and Staging of Kidney Disease* + --+ --+ ------+| GFR (mL/min/1.73 m2) ?| With Kidney Damage ?| ?Without Kidney Damage+ --------+ --------+ +| ?>90 ?| ?Stage one ?| ? Normal ?+ ---+ ---+ -------+| ?60-89 ?| ?Stage two ?| ? Decreased GFR ? + --+ --+ ------+| ?30-59 ?| ?Stage three ?| ? Stage three ? + --+ --+ ------+| ?15-29 ?| ?Stage four ? | ? Stage four ?+ ---+ ---+ -------+| ?<15 (or dialysis) ? ?| ?Stage five ? | ? Stage five ?+ ---+ ---+ -------+ *Each stage assumes the associated GFR level has been in effect for at least three months. ?Stages 1 to 5, with or without kidney disease, indicate chronic kidney disease. Notes: Determination of stages one and two (with eGFR >59mL/min/1.73 m2) requires estimation of kidney damage for at least three months as defined by structural or functional abnormalities of the kidney, manifested by either:Pathological abnormalities or Markers of kidney damage (including abnormalities in the composition of the blood or urine or abnormalities in imaging tests). Lab Interpretation (test code = 53547-9) [facility] [id number] 02:38:00* Test Item Value Reference Range Interpretation Comme nts LIPASE (test code = 0000917716) 40 U/L 0-220 Lab Interpretation (test cod e = 58925-9) [facility] (ALB, T.PRO, BILI T, BU/BC, ALT, AST, ALK PHOS)2020-04-22 02:38:00* Test Item Value Reference Range Interpretation Comme nts TOTAL BILI (test code = 3087414474) 0.2 mg/dL 0.1-1.1 BILI UNCON (test code = 3006363858) 0.2 mg/dL 0.1-1.1 BILI CONJ (test code = 2449946104) 0.0 mg/dL 0-0.3 T PROTEIN (test code = 0115099577) 7.2 g/dL 6.3-8.2 ALBUMIN (test code = 0809374079) 4.2 g/dL 3.5-5 ALK PHOS (test code = 6088603217) 58 U/L 34-122 ALTv (test code = 1742-6) 18 U/L 5-50 AST(SGOT) (test code = 5722949708) 21 U/L 13-40 Lab Interpretation (test cod e = 30383-8) [facility] (NA, K, CL, CO2, GLUCOSE, BUN, CREATININE, CA)2020-04-22 02:38:00* Test Item Value Reference Range Interpretation Comme nts NA (test code = 7511781993) 139 mmol/L 135-145 K (test code = 4008687444) 4.1 mmol/L 3.5-5 CL (test code = 6424877083) 103 mmol/L 98-108 CO2 TOTAL (test code = 5368074973) 26 mmol/L 23-31 AGAP (test code = 5197956895) 2-16 BUN (test code = 5989002264) 9 mg/dL 7-23 GLUCOSE (test code = 6454165420) 115 mg/dL 70-110 H CREATININE (test code = 8675343604) 0.84 mg/dL 0.6-1.25 CALCIUM (test code = 7938939548) 8.4 mg/dL 8.6-10.6 L eGFR Calculation (Non-) (test code = 2455212294) mL/min/1.73m2 eGFR Calculation () (test code = 8812704961) mL/min/1.73m2 BEVERLY (test code = BEVERLY) Association of Glomerular Filtration Rate (GFR) and Staging of Kidney Disease* + --+ --+ ------+| GFR (mL/min/1.73 m2) ?| With Kidney Damage ?| ?Without Kidney Damage+ --------+ --------+ +| ?>90 ?| ?Stage one ?| ? Normal ?+ ---+ ---+ -------+| ?60-89 ?| ?Stage two ?| ? Decreased GFR ? + --+ --+ ------+| ?30-59 ?| ?Stage three ?| ? Stage three ? + --+ --+ ------+| ?15-29 ?| ?Stage four ? | ? Stage four ?+ ---+ ---+ -------+| ?<15 (or dialysis) ? ?| ?Stage five ? | ? Stage five ?+ ---+ ---+ -------+ *Each stage assumes the associated GFR level has been in effect for at least three months. ?Stages 1 to 5, with or without kidney disease, indicate chronic kidney disease. Notes: Determination of stages one and two (with eGFR >59mL/min/1.73 m2) requires estimation of kidney damage for at least three months as defined by structural or functional abnormalities of the kidney, manifested by either:Pathological abnormalities or Markers of kidney damage (including abnormalities in the composition of the blood or urine or abnormalities in imaging tests). Lab Interpretation (test code = 13976-4) [facility] [id number] 02:38:00* Test Item Value Reference Range Interpretation Comme nts LIPASE (test code = 8240933270) 40 U/L 0-220 Lab Interpretation (test cod e = 88124-5) [facility] (ALB, T.PRO, BILI T, BU/BC, ALT, AST, ALK PHOS)2020-04-22 02:38:00* Test Item Value Reference Range Interpretation Comme nts TOTAL BILI (test code = 1909155930) 0.2 mg/dL 0.1-1.1 BILI UNCON (test code = 2112039241) 0.2 mg/dL 0.1-1.1 BILI CONJ (test code = 8816256021) 0.0 mg/dL 0-0.3 T PROTEIN (test code = 0801059846) 7.2 g/dL 6.3-8.2 ALBUMIN (test code = 5569970546) 4.2 g/dL 3.5-5 ALK PHOS (test code = 1303305522) 58 U/L 34-122 ALTv (test code = 1742-6) 18 U/L 5-50 AST(SGOT) (test code = 7918104041) 21 U/L 13-40 Lab Interpretation (test cod e = 73844-9) Normal [facility] Metabolic Panel (NA, K, CL, CO2, GLUCOSE, BUN, CREATININE, CA)2020-04-22 02:38:00* Test Item Value Reference Range Interpretation Comme nts NA (test code = 7852447592) 139 mmol/L 135-145 K (test code = 8730144974) 4.1 mmol/L 3.5-5 CL (test code = 1378706121) 103 mmol/L 98-108 CO2 TOTAL (test code = 7957064961) 26 mmol/L 23-31 AGAP (test code = 0179199884) 2-16 BUN (test code = 3387442626) 9 mg/dL 7-23 GLUCOSE (test code = 5020285592) 115 mg/dL 70-110 H CREATININE (test code = 8038488811) 0.84 mg/dL 0.6-1.25 CALCIUM (test code = 7561584546) 8.4 mg/dL 8.6-10.6 L eGFR Calculation (Non-) (test code = 3409383324) mL/min/1.73m2 eGFR Calculation () (test code = 7751249729) mL/min/1.73m2 BEVERLY (test code = BEVERLY) Association of Glomerular Filtration Rate (GFR) and Staging of Kidney Disease* + --+ --+ ------+| GFR (mL/min/1.73 m2) ?| With Kidney Damage ?| ?Without Kidney Damage+ --------+ --------+ +| ?>90 ?| ?Stage one ?| ? Normal ?+ ---+ ---+ -------+| ?60-89 ?| ?Stage two ?| ? Decreased GFR ? + --+ --+ ------+| ?30-59 ?| ?Stage three ?| ? Stage three ? + --+ --+ ------+| ?15-29 ?| ?Stage four ? | ? Stage four ?+ ---+ ---+ -------+| ?<15 (or dialysis) ? ?| ?Stage five ? | ? Stage five ?+ ---+ ---+ -------+ *Each stage assumes the associated GFR level has been in effect for at least three months. ?Stages 1 to 5, with or without kidney disease, indicate chronic kidney disease. Notes: Determination of stages one and two (with eGFR >59mL/min/1.73 m2) requires estimation of kidney damage for at least three months as defined by structural or functional abnormalities of the kidney, manifested by either:Pathological abnormalities or Markers of kidney damage (including abnormalities in the composition of the blood or urine or abnormalities in imaging tests). Lab Interpretation (test code = 92362-4) [facility] [id number] 02:38:00* Test Item Value Reference Range Interpretation Comme nts LIPASE (test code = 3249489871) 40 U/L 0-220 Lab Interpretation (test cod e = 40799-2) [facility] (ALB, T.PRO, BILI T, BU/BC, ALT, AST, ALK PHOS)2020-04-22 02:38:00* Test Item Value Reference Range Interpretation Comme nts TOTAL BILI (test code = 0604602986) 0.2 mg/dL 0.1-1.1 BILI UNCON (test code = 7939467343) 0.2 mg/dL 0.1-1.1 BILI CONJ (test code = 0903707213) 0.0 mg/dL 0-0.3 T PROTEIN (test code = 4180698989) 7.2 g/dL 6.3-8.2 ALBUMIN (test code = 8670819375) 4.2 g/dL 3.5-5 ALK PHOS (test code = 7669066961) 58 U/L 34-122 ALTv (test code = 1742-6) 18 U/L 5-50 AST(SGOT) (test code = 0204462411) 21 U/L 13-40 Lab Interpretation (test cod e = 37290-1) [facility] (NA, K, CL, CO2, GLUCOSE, BUN, CREATININE, CA)2020-04-22 02:38:00* Test Item Value Reference Range Interpretation Comme nts NA (test code = 1247515273) 139 mmol/L 135-145 K (test code = 6415674239) 4.1 mmol/L 3.5-5 CL (test code = 9272473248) 103 mmol/L 98-108 CO2 TOTAL (test code = 7487475562) 26 mmol/L 23-31 AGAP (test code = 9201942558) 2-16 BUN (test code = 5516687521) 9 mg/dL 7-23 GLUCOSE (test code = 2861568106) 115 mg/dL 70-110 H CREATININE (test code = 3757831961) 0.84 mg/dL 0.6-1.25 CALCIUM (test code = 2708064511) 8.4 mg/dL 8.6-10.6 L eGFR Calculation (Non-) (test code = 9402261246) mL/min/1.73m2 eGFR Calculation () (test code = 9004217386) mL/min/1.73m2 BEVERLY (test code = BEVERLY) Association of Glomerular Filtration Rate (GFR) and Staging of Kidney Disease* + --+ --+ ------+| GFR (mL/min/1.73 m2) ?| With Kidney Damage ?| ?Without Kidney Damage+ --------+ --------+ +| ?>90 ?| ?Stage one ?| ? Normal ?+ ---+ ---+ -------+| ?60-89 ?| ?Stage two ?| ? Decreased GFR ? + --+ --+ ------+| ?30-59 ?| ?Stage three ?| ? Stage three ? + --+ --+ ------+| ?15-29 ?| ?Stage four ? | ? Stage four ?+ ---+ ---+ -------+| ?<15 (or dialysis) ? ?| ?Stage five ? | ? Stage five ?+ ---+ ---+ -------+ *Each stage assumes the associated GFR level has been in effect for at least three months. ?Stages 1 to 5, with or without kidney disease, indicate chronic kidney disease. Notes: Determination of stages one and two (with eGFR >59mL/min/1.73 m2) requires estimation of kidney damage for at least three months as defined by structural or functional abnormalities of the kidney, manifested by either:Pathological abnormalities or Markers of kidney damage (including abnormalities in the composition of the blood or urine or abnormalities in imaging tests). Lab Interpretation (test code = 22231-1) [facility]normal [facility] [id number] 02:38:00* Test Item Value Reference Range Interpretation Comme nts LIPASE (test code = 8249827861) 40 U/L 0-220 Lab Interpretation (test cod e = 53131-4) [facility] (ALB, T.PRO, BILI T, BU/BC, ALT, AST, ALK PHOS)2020-04-22 02:38:00* Test Item Value Reference Range Interpretation Comme nts TOTAL BILI (test code = 5130168404) 0.2 mg/dL 0.1-1.1 BILI UNCON (test code = 6334271453) 0.2 mg/dL 0.1-1.1 BILI CONJ (test code = 5088653750) 0.0 mg/dL 0-0.3 T PROTEIN (test code = 7779447481) 7.2 g/dL 6.3-8.2 ALBUMIN (test code = 3204836207) 4.2 g/dL 3.5-5 ALK PHOS (test code = 6736926095) 58 U/L 34-122 ALTv (test code = 1742-6) 18 U/L 5-50 AST(SGOT) (test code = 5350459949) 21 U/L 13-40 Lab Interpretation (test cod e = 27592-3) [facility] (NA, K, CL, CO2, GLUCOSE, BUN, CREATININE, CA)2020-04-22 02:38:00* Test Item Value Reference Range Interpretation Comme nts NA (test code = 6018369980) 139 mmol/L 135-145 K (test code = 3119308489) 4.1 mmol/L 3.5-5 CL (test code = 5038351731) 103 mmol/L 98-108 CO2 TOTAL (test code = 0268005379) 26 mmol/L 23-31 AGAP (test code = 7775357063) 2-16 BUN (test code = 4699554580) 9 mg/dL 7-23 GLUCOSE (test code = 5114252077) 115 mg/dL 70-110 H CREATININE (test code = 1069232330) 0.84 mg/dL 0.6-1.25 CALCIUM (test code = 6570807784) 8.4 mg/dL 8.6-10.6 L eGFR Calculation (Non-) (test code = 9034760318) mL/min/1.73m2 eGFR Calculation () (test code = 6887607319) mL/min/1.73m2 BEVERLY (test code = BEVERLY) Association of Glomerular Filtration Rate (GFR) and Staging of Kidney Disease* + --+ --+ ------+| GFR (mL/min/1.73 m2) ?| With Kidney Damage ?| ?Without Kidney Damage+ --------+ --------+ +| ?>90 ?| ?Stage one ?| ? Normal ?+ ---+ ---+ -------+| ?60-89 ?| ?Stage two ?| ? Decreased GFR ? + --+ --+ ------+| ?30-59 ?| ?Stage three ?| ? Stage three ? + --+ --+ ------+| ?15-29 ?| ?Stage four ? | ? Stage four ?+ ---+ ---+ -------+| ?<15 (or dialysis) ? ?| ?Stage five ? | ? Stage five ?+ ---+ ---+ -------+ *Each stage assumes the associated GFR level has been in effect for at least three months. ?Stages 1 to 5, with or without kidney disease, indicate chronic kidney disease. Notes: Determination of stages one and two (with eGFR >59mL/min/1.73 m2) requires estimation of kidney damage for at least three months as defined by structural or functional abnormalities of the kidney, manifested by either:Pathological abnormalities or Markers of kidney damage (including abnormalities in the composition of the blood or urine or abnormalities in imaging tests). Lab Interpretation (test code = 60869-1) [facility] [id number] 02:38:00* Test Item Value Reference Range Interpretation Comme nts LIPASE (test code = 3630279413) 40 U/L 0-220 Lab Interpretation (test cod e = 86476-9) [facility] (ALB, T.PRO, BILI T, BU/BC, ALT, AST, ALK PHOS)2020-04-22 02:38:00* Test Item Value Reference Range Interpretation Comme nts TOTAL BILI (test code = 8078039080) 0.2 mg/dL 0.1-1.1 BILI UNCON (test code = 8828157307) 0.2 mg/dL 0.1-1.1 BILI CONJ (test code = 4743989561) 0.0 mg/dL 0-0.3 T PROTEIN (test code = 0728335023) 7.2 g/dL 6.3-8.2 ALBUMIN (test code = 0691520254) 4.2 g/dL 3.5-5 ALK PHOS (test code = 7636163849) 58 U/L 34-122 ALTv (test code = 1742-6) 18 U/L 5-50 AST(SGOT) (test code = 6998533252) 21 U/L 13-40 Lab Interpretation (test cod e = 47690-5) Normal [facility] Metabolic Panel (NA, K, CL, CO2, GLUCOSE, BUN, CREATININE, CA)2020-04-22 02:38:00* Test Item Value Reference Range Interpretation Comme nts NA (test code = 7502853810) 139 mmol/L 135-145 K (test code = 5363558802) 4.1 mmol/L 3.5-5 CL (test code = 0343866223) 103 mmol/L 98-108 CO2 TOTAL (test code = 0716868143) 26 mmol/L 23-31 AGAP (test code = 6963246509) 2-16 BUN (test code = 0215445761) 9 mg/dL 7-23 GLUCOSE (test code = 7010939889) 115 mg/dL 70-110 H CREATININE (test code = 3547610128) 0.84 mg/dL 0.6-1.25 CALCIUM (test code = 9465074472) 8.4 mg/dL 8.6-10.6 L eGFR Calculation (Non-) (test code = 5506471190) mL/min/1.73m2 eGFR Calculation () (test code = 9112971938) mL/min/1.73m2 BEVERLY (test code = BEVERLY) Association of Glomerular Filtration Rate (GFR) and Staging of Kidney Disease* + --+ --+ ------+| GFR (mL/min/1.73 m2) ?| With Kidney Damage ?| ?Without Kidney Damage+ --------+ --------+ +| ?>90 ?| ?Stage one ?| ? Normal ?+ ---+ ---+ -------+| ?60-89 ?| ?Stage two ?| ? Decreased GFR ? + --+ --+ ------+| ?30-59 ?| ?Stage three ?| ? Stage three ? + --+ --+ ------+| ?15-29 ?| ?Stage four ? | ? Stage four ?+ ---+ ---+ -------+| ?<15 (or dialysis) ? ?| ?Stage five ? | ? Stage five ?+ ---+ ---+ -------+ *Each stage assumes the associated GFR level has been in effect for at least three months. ?Stages 1 to 5, with or without kidney disease, indicate chronic kidney disease. Notes: Determination of stages one and two (with eGFR >59mL/min/1.73 m2) requires estimation of kidney damage for at least three months as defined by structural or functional abnormalities of the kidney, manifested by either:Pathological abnormalities or Markers of kidney damage (including abnormalities in the composition of the blood or urine or abnormalities in imaging tests). Lab Interpretation (test code = 70745-3) [facility] [id number] 02:38:00* Test Item Value Reference Range Interpretation Comme nts LIPASE (test code = 1528335945) 40 U/L 0-220 Lab Interpretation (test cod e = 07666-9) [facility] (ALB, T.PRO, BILI T, BU/BC, ALT, AST, ALK PHOS)2020-04-22 02:38:00* Test Item Value Reference Range Interpretation Comme nts TOTAL BILI (test code = 3473278136) 0.2 mg/dL 0.1-1.1 BILI UNCON (test code = 0716420109) 0.2 mg/dL 0.1-1.1 BILI CONJ (test code = 1312711436) 0.0 mg/dL 0-0.3 T PROTEIN (test code = 8664924207) 7.2 g/dL 6.3-8.2 ALBUMIN (test code = 9146717796) 4.2 g/dL 3.5-5 ALK PHOS (test code = 2727367938) 58 U/L 34-122 ALTv (test code = 1742-6) 18 U/L 5-50 AST(SGOT) (test code = 9353954360) 21 U/L 13-40 Lab Interpretation (test cod e = 57210-2) Normal [facility] Metabolic Panel (NA, K, CL, CO2, GLUCOSE, BUN, CREATININE, CA)2020-04-22 02:38:00* Test Item Value Reference Range Interpretation Comme nts NA (test code = 4755598732) 139 mmol/L 135-145 K (test code = 3134307845) 4.1 mmol/L 3.5-5 CL (test code = 4146853808) 103 mmol/L 98-108 CO2 TOTAL (test code = 4035227598) 26 mmol/L 23-31 AGAP (test code = 5576458500) 2-16 BUN (test code = 8370103950) 9 mg/dL 7-23 GLUCOSE (test code = 1168749403) 115 mg/dL 70-110 H CREATININE (test code = 6610428156) 0.84 mg/dL 0.6-1.25 CALCIUM (test code = 2284383156) 8.4 mg/dL 8.6-10.6 L eGFR Calculation (Non-) (test code = 5862692790) mL/min/1.73m2 eGFR Calculation () (test code = 4066173378) mL/min/1.73m2 BEVERLY (test code = BEVERLY) Association of Glomerular Filtration Rate (GFR) and Staging of Kidney Disease* + --+ --+ ------+| GFR (mL/min/1.73 m2) ?| With Kidney Damage ?| ?Without Kidney Damage+ --------+ --------+ +| ?>90 ?| ?Stage one ?| ? Normal ?+ ---+ ---+ -------+| ?60-89 ?| ?Stage two ?| ? Decreased GFR ? + --+ --+ ------+| ?30-59 ?| ?Stage three ?| ? Stage three ? + --+ --+ ------+| ?15-29 ?| ?Stage four ? | ? Stage four ?+ ---+ ---+ -------+| ?<15 (or dialysis) ? ?| ?Stage five ? | ? Stage five ?+ ---+ ---+ -------+ *Each stage assumes the associated GFR level has been in effect for at least three months. ?Stages 1 to 5, with or without kidney disease, indicate chronic kidney disease. Notes: Determination of stages one and two (with eGFR >59mL/min/1.73 m2) requires estimation of kidney damage for at least three months as defined by structural or functional abnormalities of the kidney, manifested by either:Pathological abnormalities or Markers of kidney damage (including abnormalities in the composition of the blood or urine or abnormalities in imaging tests). Lab Interpretation (test code = 14698-8) [facility] [id number] 02:38:00* Test Item Value Reference Range Interpretation Comme nts LIPASE (test code = 5332440766) 40 U/L 0-220 Lab Interpretation (test cod e = 33439-8) [facility] (ALB, T.PRO, BILI T, BU/BC, ALT, AST, ALK PHOS)2020-04-22 02:38:00* Test Item Value Reference Range Interpretation Comme nts TOTAL BILI (test code = 0905840474) 0.2 mg/dL 0.1-1.1 BILI UNCON (test code = 2543263961) 0.2 mg/dL 0.1-1.1 BILI CONJ (test code = 9363509352) 0.0 mg/dL 0-0.3 T PROTEIN (test code = 7926568538) 7.2 g/dL 6.3-8.2 ALBUMIN (test code = 2311092406) 4.2 g/dL 3.5-5 ALK PHOS (test code = 2601192598) 58 U/L 34-122 ALTv (test code = 1742-6) 18 U/L 5-50 AST(SGOT) (test code = 8675476920) 21 U/L 13-40 Lab Interpretation (test cod e = 68512-3) [facility] (NA, K, CL, CO2, GLUCOSE, BUN, CREATININE, CA)2020-04-22 02:38:00* Test Item Value Reference Range Interpretation Comme nts NA (test code = 7014755122) 139 mmol/L 135-145 K (test code = 1600641494) 4.1 mmol/L 3.5-5 CL (test code = 0737070137) 103 mmol/L 98-108 CO2 TOTAL (test code = 6915761318) 26 mmol/L 23-31 AGAP (test code = 2873690661) 2-16 BUN (test code = 9209167581) 9 mg/dL 7-23 GLUCOSE (test code = 7530743539) 115 mg/dL 70-110 H CREATININE (test code = 1469334058) 0.84 mg/dL 0.6-1.25 CALCIUM (test code = 8109566655) 8.4 mg/dL 8.6-10.6 L eGFR Calculation (Non-) (test code = 2453415166) mL/min/1.73m2 eGFR Calculation () (test code = 8466622475) mL/min/1.73m2 BEVERLY (test code = BEVERLY) Association of Glomerular Filtration Rate (GFR) and Staging of Kidney Disease* + --+ --+ ------+| GFR (mL/min/1.73 m2) ?| With Kidney Damage ?| ?Without Kidney Damage+ --------+ --------+ +| ?>90 ?| ?Stage one ?| ? Normal ?+ ---+ ---+ -------+| ?60-89 ?| ?Stage two ?| ? Decreased GFR ? + --+ --+ ------+| ?30-59 ?| ?Stage three ?| ? Stage three ? + --+ --+ ------+| ?15-29 ?| ?Stage four ? | ? Stage four ?+ ---+ ---+ -------+| ?<15 (or dialysis) ? ?| ?Stage five ? | ? Stage five ?+ ---+ ---+ -------+ *Each stage assumes the associated GFR level has been in effect for at least three months. ?Stages 1 to 5, with or without kidney disease, indicate chronic kidney disease. Notes: Determination of stages one and two (with eGFR >59mL/min/1.73 m2) requires estimation of kidney damage for at least three months as defined by structural or functional abnormalities of the kidney, manifested by either:Pathological abnormalities or Markers of kidney damage (including abnormalities in the composition of the blood or urine or abnormalities in imaging tests). Lab Interpretation (test code = 11296-5) [facility] [id number] 02:38:00* Test Item Value Reference Range Interpretation Comme nts LIPASE (test code = 4044235712) 40 U/L 0-220 Lab Interpretation (test cod e = 05947-5) [facility] (ALB, T.PRO, BILI T, BU/BC, ALT, AST, ALK PHOS)2020-04-22 02:38:00* Test Item Value Reference Range Interpretation Comme nts TOTAL BILI (test code = 8864352298) 0.2 mg/dL 0.1-1.1 BILI UNCON (test code = 2402046949) 0.2 mg/dL 0.1-1.1 BILI CONJ (test code = 8639698132) 0.0 mg/dL 0-0.3 T PROTEIN (test code = 1079140491) 7.2 g/dL 6.3-8.2 ALBUMIN (test code = 0291635234) 4.2 g/dL 3.5-5 ALK PHOS (test code = 8632584249) 58 U/L 34-122 ALTv (test code = 1742-6) 18 U/L 5-50 AST(SGOT) (test code = 9401083911) 21 U/L 13-40 Lab Interpretation (test cod e = 62972-8) [facility] (NA, K, CL, CO2, GLUCOSE, BUN, CREATININE, CA)2020-04-22 02:38:00* Test Item Value Reference Range Interpretation Comme nts NA (test code = 0600426790) 139 mmol/L 135-145 K (test code = 6499738661) 4.1 mmol/L 3.5-5 CL (test code = 7204182193) 103 mmol/L 98-108 CO2 TOTAL (test code = 2755685568) 26 mmol/L 23-31 AGAP (test code = 4318466031) 2-16 BUN (test code = 5173567954) 9 mg/dL 7-23 GLUCOSE (test code = 5649727363) 115 mg/dL 70-110 H CREATININE (test code = 8934297901) 0.84 mg/dL 0.6-1.25 CALCIUM (test code = 0317584138) 8.4 mg/dL 8.6-10.6 L eGFR Calculation (Non-) (test code = 2726024779) mL/min/1.73m2 eGFR Calculation () (test code = 5626883793) mL/min/1.73m2 BEVERLY (test code = BEVERLY) Association of Glomerular Filtration Rate (GFR) and Staging of Kidney Disease* + --+ --+ ------+| GFR (mL/min/1.73 m2) ?| With Kidney Damage ?| ?Without Kidney Damage+ --------+ --------+ +| ?>90 ?| ?Stage one ?| ? Normal ?+ ---+ ---+ -------+| ?60-89 ?| ?Stage two ?| ? Decreased GFR ? + --+ --+ ------+| ?30-59 ?| ?Stage three ?| ? Stage three ? + --+ --+ ------+| ?15-29 ?| ?Stage four ? | ? Stage four ?+ ---+ ---+ -------+| ?<15 (or dialysis) ? ?| ?Stage five ? | ? Stage five ?+ ---+ ---+ -------+ *Each stage assumes the associated GFR level has been in effect for at least three months. ?Stages 1 to 5, with or without kidney disease, indicate chronic kidney disease. Notes: Determination of stages one and two (with eGFR >59mL/min/1.73 m2) requires estimation of kidney damage for at least three months as defined by structural or functional abnormalities of the kidney, manifested by either:Pathological abnormalities or Markers of kidney damage (including abnormalities in the composition of the blood or urine or abnormalities in imaging tests). Lab Interpretation (test code = 38377-6) [facility] [id number] 02:38:00* Test Item Value Reference Range Interpretation Comme nts LIPASE (test code = 2005938808) 40 U/L 0-220 Lab Interpretation (test cod e = 19805-0) [facility] (ALB, T.PRO, BILI T, BU/BC, ALT, AST, ALK PHOS)2020-04-22 02:38:00* Test Item Value Reference Range Interpretation Comme nts TOTAL BILI (test code = 9613797227) 0.2 mg/dL 0.1-1.1 BILI UNCON (test code = 7852461592) 0.2 mg/dL 0.1-1.1 BILI CONJ (test code = 8199669874) 0.0 mg/dL 0-0.3 T PROTEIN (test code = 9954824924) 7.2 g/dL 6.3-8.2 ALBUMIN (test code = 0850677127) 4.2 g/dL 3.5-5 ALK PHOS (test code = 2585877820) 58 U/L 34-122 ALTv (test code = 1742-6) 18 U/L 5-50 AST(SGOT) (test code = 4535202492) 21 U/L 13-40 Lab Interpretation (test cod e = 88848-2) [facility] (NA, K, CL, CO2, GLUCOSE, BUN, CREATININE, CA)2020-04-22 02:38:00* Test Item Value Reference Range Interpretation Comme nts NA (test code = 6930982994) 139 mmol/L 135-145 K (test code = 6542730085) 4.1 mmol/L 3.5-5 CL (test code = 6586747802) 103 mmol/L 98-108 CO2 TOTAL (test code = 9934099224) 26 mmol/L 23-31 AGAP (test code = 4061949772) 2-16 BUN (test code = 7851486156) 9 mg/dL 7-23 GLUCOSE (test code = 8269375200) 115 mg/dL 70-110 H CREATININE (test code = 7944345185) 0.84 mg/dL 0.6-1.25 CALCIUM (test code = 5326517741) 8.4 mg/dL 8.6-10.6 L eGFR Calculation (Non-) (test code = 1789771240) mL/min/1.73m2 eGFR Calculation () (test code = 7724660237) mL/min/1.73m2 BEVERLY (test code = BEVERLY) Association of Glomerular Filtration Rate (GFR) and Staging of Kidney Disease* + --+ --+ ------+| GFR (mL/min/1.73 m2) ?| With Kidney Damage ?| ?Without Kidney Damage+ --------+ --------+ +| ?>90 ?| ?Stage one ?| ? Normal ?+ ---+ ---+ -------+| ?60-89 ?| ?Stage two ?| ? Decreased GFR ? + --+ --+ ------+| ?30-59 ?| ?Stage three ?| ? Stage three ? + --+ --+ ------+| ?15-29 ?| ?Stage four ? | ? Stage four ?+ ---+ ---+ -------+| ?<15 (or dialysis) ? ?| ?Stage five ? | ? Stage five ?+ ---+ ---+ -------+ *Each stage assumes the associated GFR level has been in effect for at least three months. ?Stages 1 to 5, with or without kidney disease, indicate chronic kidney disease. Notes: Determination of stages one and two (with eGFR >59mL/min/1.73 m2) requires estimation of kidney damage for at least three months as defined by structural or functional abnormalities of the kidney, manifested by either:Pathological abnormalities or Markers of kidney damage (including abnormalities in the composition of the blood or urine or abnormalities in imaging tests). Lab Interpretation (test code = 21409-7) [facility] [id number] 02:38:00* Test Item Value Reference Range Interpretation Comme nts LIPASE (test code = 6831686160) 40 U/L 0-220 Lab Interpretation (test cod e = 05096-2) Normal [facility] (ALB, T.PRO, BILI T, BU/BC, ALT, AST, ALK PHOS)2020-04-22 02:38:00* Test Item Value Reference Range Interpretation Comme nts TOTAL BILI (test code = 6288519315) 0.2 mg/dL 0.1-1.1 BILI UNCON (test code = 9223452755) 0.2 mg/dL 0.1-1.1 BILI CONJ (test code = 0792549401) 0.0 mg/dL 0-0.3 T PROTEIN (test code = 2795459683) 7.2 g/dL 6.3-8.2 ALBUMIN (test code = 8269836985) 4.2 g/dL 3.5-5 ALK PHOS (test code = 5232079861) 58 U/L 34-122 ALTv (test code = 1742-6) 18 U/L 5-50 AST(SGOT) (test code = 1578738107) 21 U/L 13-40 Lab Interpretation (test cod e = 95258-6) [facility] (NA, K, CL, CO2, GLUCOSE, BUN, CREATININE, CA)2020-04-22 02:38:00* Test Item Value Reference Range Interpretation Comme nts NA (test code = 1638669967) 139 mmol/L 135-145 K (test code = 9745661826) 4.1 mmol/L 3.5-5 CL (test code = 5061710203) 103 mmol/L 98-108 CO2 TOTAL (test code = 4578498520) 26 mmol/L 23-31 AGAP (test code = 9603479799) 2-16 BUN (test code = 0704155028) 9 mg/dL 7-23 GLUCOSE (test code = 0867920213) 115 mg/dL 70-110 H CREATININE (test code = 0093700039) 0.84 mg/dL 0.6-1.25 CALCIUM (test code = 9105804736) 8.4 mg/dL 8.6-10.6 L eGFR Calculation (Non-) (test code = 7254902242) mL/min/1.73m2 eGFR Calculation () (test code = 4166350168) mL/min/1.73m2 BEVERLY (test code = BEVERLY) Association of Glomerular Filtration Rate (GFR) and Staging of Kidney Disease* + --+ --+ ------+| GFR (mL/min/1.73 m2) ?| With Kidney Damage ?| ?Without Kidney Damage+ --------+ --------+ +| ?>90 ?| ?Stage one ?| ? Normal ?+ ---+ ---+ -------+| ?60-89 ?| ?Stage two ?| ? Decreased GFR ? + --+ --+ ------+| ?30-59 ?| ?Stage three ?| ? Stage three ? + --+ --+ ------+| ?15-29 ?| ?Stage four ? | ? Stage four ?+ ---+ ---+ -------+| ?<15 (or dialysis) ? ?| ?Stage five ? | ? Stage five ?+ ---+ ---+ -------+ *Each stage assumes the associated GFR level has been in effect for at least three months. ?Stages 1 to 5, with or without kidney disease, indicate chronic kidney disease. Notes: Determination of stages one and two (with eGFR >59mL/min/1.73 m2) requires estimation of kidney damage for at least three months as defined by structural or functional abnormalities of the kidney, manifested by either:Pathological abnormalities or Markers of kidney damage (including abnormalities in the composition of the blood or urine or abnormalities in imaging tests). Lab Interpretation (test code = 01088-6) [facility]normal [facility] [id number] 02:38:00* Test Item Value Reference Range Interpretation Comme nts LIPASE (test code = 3811472513) 40 U/L 0-220 Lab Interpretation (test cod e = 46378-7) [facility] (ALB, T.PRO, BILI T, BU/BC, ALT, AST, ALK PHOS)2020-04-22 02:38:00* Test Item Value Reference Range Interpretation Comme nts TOTAL BILI (test code = 7087954900) 0.2 mg/dL 0.1-1.1 BILI UNCON (test code = 0399632161) 0.2 mg/dL 0.1-1.1 BILI CONJ (test code = 7300875640) 0.0 mg/dL 0-0.3 T PROTEIN (test code = 5383344681) 7.2 g/dL 6.3-8.2 ALBUMIN (test code = 2215351224) 4.2 g/dL 3.5-5 ALK PHOS (test code = 9916661650) 58 U/L 34-122 ALTv (test code = 1742-6) 18 U/L 5-50 AST(SGOT) (test code = 6402058173) 21 U/L 13-40 Lab Interpretation (test cod e = 73187-5) Normal [facility] Metabolic Panel (NA, K, CL, CO2, GLUCOSE, BUN, CREATININE, CA)2020-04-22 02:38:00* Test Item Value Reference Range Interpretation Comme nts NA (test code = 1605596670) 139 mmol/L 135-145 K (test code = 6343162318) 4.1 mmol/L 3.5-5 CL (test code = 8995473377) 103 mmol/L 98-108 CO2 TOTAL (test code = 2772778703) 26 mmol/L 23-31 AGAP (test code = 3447657498) 2-16 BUN (test code = 1009190716) 9 mg/dL 7-23 GLUCOSE (test code = 2875956182) 115 mg/dL 70-110 H CREATININE (test code = 0283178444) 0.84 mg/dL 0.6-1.25 CALCIUM (test code = 7934682212) 8.4 mg/dL 8.6-10.6 L eGFR Calculation (Non-) (test code = 2053514735) mL/min/1.73m2 eGFR Calculation () (test code = 0219492266) mL/min/1.73m2 BEVERLY (test code = BEVERLY) Association of Glomerular Filtration Rate (GFR) and Staging of Kidney Disease* + --+ --+ ------+| GFR (mL/min/1.73 m2) ?| With Kidney Damage ?| ?Without Kidney Damage+ --------+ --------+ +| ?>90 ?| ?Stage one ?| ? Normal ?+ ---+ ---+ -------+| ?60-89 ?| ?Stage two ?| ? Decreased GFR ? + --+ --+ ------+| ?30-59 ?| ?Stage three ?| ? Stage three ? + --+ --+ ------+| ?15-29 ?| ?Stage four ? | ? Stage four ?+ ---+ ---+ -------+| ?<15 (or dialysis) ? ?| ?Stage five ? | ? Stage five ?+ ---+ ---+ -------+ *Each stage assumes the associated GFR level has been in effect for at least three months. ?Stages 1 to 5, with or without kidney disease, indicate chronic kidney disease. Notes: Determination of stages one and two (with eGFR >59mL/min/1.73 m2) requires estimation of kidney damage for at least three months as defined by structural or functional abnormalities of the kidney, manifested by either:Pathological abnormalities or Markers of kidney damage (including abnormalities in the composition of the blood or urine or abnormalities in imaging tests). Lab Interpretation (test code = 03850-9) [facility]normal [facility] HospitalLip[facility] [id number] 02:38:00* Test Item Value Reference Range Interpretation Comme nts LIPASE (test code = 3458094816) 40 U/L 0-220 Lab Interpretation (test cod e = 70597-8) Normal [facility] (ALB, T.PRO, BILI T, BU/BC, ALT, AST, ALK PHOS)2020-04-22 02:38:00* Test Item Value Reference Range Interpretation Comme nts TOTAL BILI (test code = 4712995172) 0.2 mg/dL 0.1-1.1 BILI UNCON (test code = 8235697000) 0.2 mg/dL 0.1-1.1 BILI CONJ (test code = 7624239174) 0.0 mg/dL 0-0.3 T PROTEIN (test code = 6103851235) 7.2 g/dL 6.3-8.2 ALBUMIN (test code = 1227420728) 4.2 g/dL 3.5-5 ALK PHOS (test code = 4628502037) 58 U/L 34-122 ALTv (test code = 1742-6) 18 U/L 5-50 AST(SGOT) (test code = 9067784435) 21 U/L 13-40 Lab Interpretation (test cod e = 92162-1) [facility] (NA, K, CL, CO2, GLUCOSE, BUN, CREATININE, CA)2020-04-22 02:38:00* Test Item Value Reference Range Interpretation Comme nts NA (test code = 5780027909) 139 mmol/L 135-145 K (test code = 5927003464) 4.1 mmol/L 3.5-5 CL (test code = 4077670162) 103 mmol/L 98-108 CO2 TOTAL (test code = 9777087970) 26 mmol/L 23-31 AGAP (test code = 2055465237) 2-16 BUN (test code = 7880311601) 9 mg/dL 7-23 GLUCOSE (test code = 5187909362) 115 mg/dL 70-110 H CREATININE (test code = 4374529699) 0.84 mg/dL 0.6-1.25 CALCIUM (test code = 5017310815) 8.4 mg/dL 8.6-10.6 L eGFR Calculation (Non-) (test code = 2789578183) mL/min/1.73m2 eGFR Calculation () (test code = 3188742729) mL/min/1.73m2 BEVERLY (test code = BEVERLY) Association of Glomerular Filtration Rate (GFR) and Staging of Kidney Disease* + --+ --+ ------+| GFR (mL/min/1.73 m2) ?| With Kidney Damage ?| ?Without Kidney Damage+ --------+ --------+ +| ?>90 ?| ?Stage one ?| ? Normal ?+ ---+ ---+ -------+| ?60-89 ?| ?Stage two ?| ? Decreased GFR ? + --+ --+ ------+| ?30-59 ?| ?Stage three ?| ? Stage three ? + --+ --+ ------+| ?15-29 ?| ?Stage four ? | ? Stage four ?+ ---+ ---+ -------+| ?<15 (or dialysis) ? ?| ?Stage five ? | ? Stage five ?+ ---+ ---+ -------+ *Each stage assumes the associated GFR level has been in effect for at least three months. ?Stages 1 to 5, with or without kidney disease, indicate chronic kidney disease. Notes: Determination of stages one and two (with eGFR >59mL/min/1.73 m2) requires estimation of kidney damage for at least three months as defined by structural or functional abnormalities of the kidney, manifested by either:Pathological abnormalities or Markers of kidney damage (including abnormalities in the composition of the blood or urine or abnormalities in imaging tests). Lab Interpretation (test code = 09829-4) [facility]normal [facility] [id number] 02:38:00* Test Item Value Reference Range Interpretation Comme nts LIPASE (test code = 8514806357) 40 U/L 0-220 Lab Interpretation (test cod e = 53902-8) Normal [facility] (ALB, T.PRO, BILI T, BU/BC, ALT, AST, ALK PHOS)2020-04-22 02:38:00* Test Item Value Reference Range Interpretation Comme nts TOTAL BILI (test code = 4647245770) 0.2 mg/dL 0.1-1.1 BILI UNCON (test code = 0077573558) 0.2 mg/dL 0.1-1.1 BILI CONJ (test code = 9828499865) 0.0 mg/dL 0-0.3 T PROTEIN (test code = 1496317277) 7.2 g/dL 6.3-8.2 ALBUMIN (test code = 6665557657) 4.2 g/dL 3.5-5 ALK PHOS (test code = 8199291413) 58 U/L 34-122 ALTv (test code = 1742-6) 18 U/L 5-50 AST(SGOT) (test code = 6049871438) 21 U/L 13-40 Lab Interpretation (test cod e = 80744-1) [facility] (NA, K, CL, CO2, GLUCOSE, BUN, CREATININE, CA)2020-04-22 02:38:00* Test Item Value Reference Range Interpretation Comme nts NA (test code = 2525436628) 139 mmol/L 135-145 K (test code = 9098109154) 4.1 mmol/L 3.5-5 CL (test code = 6990449246) 103 mmol/L 98-108 CO2 TOTAL (test code = 7172946248) 26 mmol/L 23-31 AGAP (test code = 6798755357) 2-16 BUN (test code = 8787238442) 9 mg/dL 7-23 GLUCOSE (test code = 4152182988) 115 mg/dL 70-110 H CREATININE (test code = 4847098469) 0.84 mg/dL 0.6-1.25 CALCIUM (test code = 8824982225) 8.4 mg/dL 8.6-10.6 L eGFR Calculation (Non-) (test code = 4269490188) mL/min/1.73m2 eGFR Calculation () (test code = 0666258229) mL/min/1.73m2 BEVERLY (test code = BEVERLY) Association of Glomerular Filtration Rate (GFR) and Staging of Kidney Disease* + --+ --+ ------+| GFR (mL/min/1.73 m2) ?| With Kidney Damage ?| ?Without Kidney Damage+ --------+ --------+ +| ?>90 ?| ?Stage one ?| ? Normal ?+ ---+ ---+ -------+| ?60-89 ?| ?Stage two ?| ? Decreased GFR ? + --+ --+ ------+| ?30-59 ?| ?Stage three ?| ? Stage three ? + --+ --+ ------+| ?15-29 ?| ?Stage four ? | ? Stage four ?+ ---+ ---+ -------+| ?<15 (or dialysis) ? ?| ?Stage five ? | ? Stage five ?+ ---+ ---+ -------+ *Each stage assumes the associated GFR level has been in effect for at least three months. ?Stages 1 to 5, with or without kidney disease, indicate chronic kidney disease. Notes: Determination of stages one and two (with eGFR >59mL/min/1.73 m2) requires estimation of kidney damage for at least three months as defined by structural or functional abnormalities of the kidney, manifested by either:Pathological abnormalities or Markers of kidney damage (including abnormalities in the composition of the blood or urine or abnormalities in imaging tests). Lab Interpretation (test code = 81261-9) [facility]normal [facility] [id number] 02:38:00* Test Item Value Reference Range Interpretation Comme nts LIPASE (test code = 0613593587) 40 U/L 0-220 Lab Interpretation (test cod e = 67842-6) Normal [facility] (ALB, T.PRO, BILI T, BU/BC, ALT, AST, ALK PHOS)2020-04-22 02:38:00* Test Item Value Reference Range Interpretation Comme nts TOTAL BILI (test code = 0937600188) 0.2 mg/dL 0.1-1.1 BILI UNCON (test code = 0504674064) 0.2 mg/dL 0.1-1.1 BILI CONJ (test code = 1688359207) 0.0 mg/dL 0-0.3 T PROTEIN (test code = 9099323253) 7.2 g/dL 6.3-8.2 ALBUMIN (test code = 3676391538) 4.2 g/dL 3.5-5 ALK PHOS (test code = 2391859230) 58 U/L 34-122 ALTv (test code = 1742-6) 18 U/L 5-50 AST(SGOT) (test code = 0034828514) 21 U/L 13-40 Lab Interpretation (test cod e = 32316-1) Normal [facility] Metabolic Panel (NA, K, CL, CO2, GLUCOSE, BUN, CREATININE, CA)2020-04-22 02:38:00* Test Item Value Reference Range Interpretation Comme nts NA (test code = 7306690674) 139 mmol/L 135-145 K (test code = 8634119970) 4.1 mmol/L 3.5-5 CL (test code = 1926349620) 103 mmol/L 98-108 CO2 TOTAL (test code = 0788398405) 26 mmol/L 23-31 AGAP (test code = 5233943332) 2-16 BUN (test code = 9180908880) 9 mg/dL 7-23 GLUCOSE (test code = 5141843916) 115 mg/dL 70-110 H CREATININE (test code = 8297468047) 0.84 mg/dL 0.6-1.25 CALCIUM (test code = 6185249666) 8.4 mg/dL 8.6-10.6 L eGFR Calculation (Non-) (test code = 5765759504) mL/min/1.73m2 eGFR Calculation () (test code = 9254429049) mL/min/1.73m2 BEVERLY (test code = BEVERLY) Association of Glomerular Filtration Rate (GFR) and Staging of Kidney Disease* + --+ --+ ------+| GFR (mL/min/1.73 m2) ?| With Kidney Damage ?| ?Without Kidney Damage+ --------+ --------+ +| ?>90 ?| ?Stage one ?| ? Normal ?+ ---+ ---+ -------+| ?60-89 ?| ?Stage two ?| ? Decreased GFR ? + --+ --+ ------+| ?30-59 ?| ?Stage three ?| ? Stage three ? + --+ --+ ------+| ?15-29 ?| ?Stage four ? | ? Stage four ?+ ---+ ---+ -------+| ?<15 (or dialysis) ? ?| ?Stage five ? | ? Stage five ?+ ---+ ---+ -------+ *Each stage assumes the associated GFR level has been in effect for at least three months. ?Stages 1 to 5, with or without kidney disease, indicate chronic kidney disease. Notes: Determination of stages one and two (with eGFR >59mL/min/1.73 m2) requires estimation of kidney damage for at least three months as defined by structural or functional abnormalities of the kidney, manifested by either:Pathological abnormalities or Markers of kidney damage (including abnormalities in the composition of the blood or urine or abnormalities in imaging tests). Lab Interpretation (test code = 55811-4) [facility]normal [facility] [id number] 02:38:00* Test Item Value Reference Range Interpretation Comme nts LIPASE (test code = 6679041592) 40 U/L 0-220 Lab Interpretation (test cod e = 30710-1) Normal [facility] (ALB, T.PRO, BILI T, BU/BC, ALT, AST, ALK PHOS)2020-04-22 02:38:00* Test Item Value Reference Range Interpretation Comme nts TOTAL BILI (test code = 5051127870) 0.2 mg/dL 0.1-1.1 BILI UNCON (test code = 2443228333) 0.2 mg/dL 0.1-1.1 BILI CONJ (test code = 8670544157) 0.0 mg/dL 0-0.3 T PROTEIN (test code = 7880650636) 7.2 g/dL 6.3-8.2 ALBUMIN (test code = 8834039639) 4.2 g/dL 3.5-5 ALK PHOS (test code = 3609270988) 58 U/L 34-122 ALTv (test code = 1742-6) 18 U/L 5-50 AST(SGOT) (test code = 1978061157) 21 U/L 13-40 Lab Interpretation (test cod e = 72385-1) Normal [facility] Metabolic Panel (NA, K, CL, CO2, GLUCOSE, BUN, CREATININE, CA)2020-04-22 02:38:00* Test Item Value Reference Range Interpretation Comme nts NA (test code = 8247214285) 139 mmol/L 135-145 K (test code = 1027132032) 4.1 mmol/L 3.5-5 CL (test code = 5376327861) 103 mmol/L 98-108 CO2 TOTAL (test code = 4441738146) 26 mmol/L 23-31 AGAP (test code = 7799031648) 2-16 BUN (test code = 0620565794) 9 mg/dL 7-23 GLUCOSE (test code = 8107915754) 115 mg/dL 70-110 H CREATININE (test code = 1148043749) 0.84 mg/dL 0.6-1.25 CALCIUM (test code = 7860119888) 8.4 mg/dL 8.6-10.6 L eGFR Calculation (Non-) (test code = 1338586156) mL/min/1.73m2 eGFR Calculation () (test code = 6509273998) mL/min/1.73m2 BEVERLY (test code = BEVERLY) Association of Glomerular Filtration Rate (GFR) and Staging of Kidney Disease* + --+ --+ ------+| GFR (mL/min/1.73 m2) ?| With Kidney Damage ?| ?Without Kidney Damage+ --------+ --------+ +| ?>90 ?| ?Stage one ?| ? Normal ?+ ---+ ---+ -------+| ?60-89 ?| ?Stage two ?| ? Decreased GFR ? + --+ --+ ------+| ?30-59 ?| ?Stage three ?| ? Stage three ? + --+ --+ ------+| ?15-29 ?| ?Stage four ? | ? Stage four ?+ ---+ ---+ -------+| ?<15 (or dialysis) ? ?| ?Stage five ? | ? Stage five ?+ ---+ ---+ -------+ *Each stage assumes the associated GFR level has been in effect for at least three months. ?Stages 1 to 5, with or without kidney disease, indicate chronic kidney disease. Notes: Determination of stages one and two (with eGFR >59mL/min/1.73 m2) requires estimation of kidney damage for at least three months as defined by structural or functional abnormalities of the kidney, manifested by either:Pathological abnormalities or Markers of kidney damage (including abnormalities in the composition of the blood or urine or abnormalities in imaging tests). Lab Interpretation (test code = 22527-9) [facility]normal [facility] [id number] 02:38:00* Test Item Value Reference Range Interpretation Comme nts LIPASE (test code = 2599694757) 40 U/L 0-220 Lab Interpretation (test cod e = 48930-8) Normal [facility] (ALB, T.PRO, BILI T, BU/BC, ALT, AST, ALK PHOS)2020-04-22 02:38:00* Test Item Value Reference Range Interpretation Comme nts TOTAL BILI (test code = 1657361038) 0.2 mg/dL 0.1-1.1 BILI UNCON (test code = 2244840434) 0.2 mg/dL 0.1-1.1 BILI CONJ (test code = 4748011062) 0.0 mg/dL 0-0.3 T PROTEIN (test code = 2010785176) 7.2 g/dL 6.3-8.2 ALBUMIN (test code = 1488602314) 4.2 g/dL 3.5-5 ALK PHOS (test code = 6033412817) 58 U/L 34-122 ALTv (test code = 1742-6) 18 U/L 5-50 AST(SGOT) (test code = 0390844420) 21 U/L 13-40 Lab Interpretation (test cod e = 19530-7) [facility] (NA, K, CL, CO2, GLUCOSE, BUN, CREATININE, CA)2020-04-22 02:38:00* Test Item Value Reference Range Interpretation Comme nts NA (test code = 4178690312) 139 mmol/L 135-145 K (test code = 2639068818) 4.1 mmol/L 3.5-5 CL (test code = 3848212920) 103 mmol/L 98-108 CO2 TOTAL (test code = 7709728668) 26 mmol/L 23-31 AGAP (test code = 1391739642) 2-16 BUN (test code = 2502393357) 9 mg/dL 7-23 GLUCOSE (test code = 3220108679) 115 mg/dL 70-110 H CREATININE (test code = 2358058726) 0.84 mg/dL 0.6-1.25 CALCIUM (test code = 0047198150) 8.4 mg/dL 8.6-10.6 L eGFR Calculation (Non-) (test code = 6959002804) mL/min/1.73m2 eGFR Calculation () (test code = 1329530227) mL/min/1.73m2 BEVERLY (test code = BEVERLY) Association of Glomerular Filtration Rate (GFR) and Staging of Kidney Disease* + --+ --+ ------+| GFR (mL/min/1.73 m2) ?| With Kidney Damage ?| ?Without Kidney Damage+ --------+ --------+ +| ?>90 ?| ?Stage one ?| ? Normal ?+ ---+ ---+ -------+| ?60-89 ?| ?Stage two ?| ? Decreased GFR ? + --+ --+ ------+| ?30-59 ?| ?Stage three ?| ? Stage three ? + --+ --+ ------+| ?15-29 ?| ?Stage four ? | ? Stage four ?+ ---+ ---+ -------+| ?<15 (or dialysis) ? ?| ?Stage five ? | ? Stage five ?+ ---+ ---+ -------+ *Each stage assumes the associated GFR level has been in effect for at least three months. ?Stages 1 to 5, with or without kidney disease, indicate chronic kidney disease. Notes: Determination of stages one and two (with eGFR >59mL/min/1.73 m2) requires estimation of kidney damage for at least three months as defined by structural or functional abnormalities of the kidney, manifested by either:Pathological abnormalities or Markers of kidney damage (including abnormalities in the composition of the blood or urine or abnormalities in imaging tests). Lab Interpretation (test code = 09360-2) [facility]normal [facility] [id number] 02:38:00* Test Item Value Reference Range Interpretation Comme nts LIPASE (test code = 7120363237) 40 U/L 0-220 Lab Interpretation (test cod e = 26272-5) Normal [facility] (ALB, T.PRO, BILI T, BU/BC, ALT, AST, ALK PHOS)2020-04-22 02:38:00* Test Item Value Reference Range Interpretation Comme nts TOTAL BILI (test code = 5938940964) 0.2 mg/dL 0.1-1.1 BILI UNCON (test code = 4080190009) 0.2 mg/dL 0.1-1.1 BILI CONJ (test code = 5413415825) 0.0 mg/dL 0-0.3 T PROTEIN (test code = 6239967951) 7.2 g/dL 6.3-8.2 ALBUMIN (test code = 4177917461) 4.2 g/dL 3.5-5 ALK PHOS (test code = 5622369979) 58 U/L 34-122 ALTv (test code = 1742-6) 18 U/L 5-50 AST(SGOT) (test code = 3869424947) 21 U/L 13-40 Lab Interpretation (test cod e = 58749-4) [facility] (NA, K, CL, CO2, GLUCOSE, BUN, CREATININE, CA)2020-04-22 02:38:00* Test Item Value Reference Range Interpretation Comme nts NA (test code = 3774441127) 139 mmol/L 135-145 K (test code = 0204191398) 4.1 mmol/L 3.5-5 CL (test code = 6384910167) 103 mmol/L 98-108 CO2 TOTAL (test code = 3608560851) 26 mmol/L 23-31 AGAP (test code = 1267716168) 2-16 BUN (test code = 5567573355) 9 mg/dL 7-23 GLUCOSE (test code = 1279010740) 115 mg/dL 70-110 H CREATININE (test code = 5609587031) 0.84 mg/dL 0.6-1.25 CALCIUM (test code = 2137453090) 8.4 mg/dL 8.6-10.6 L eGFR Calculation (Non-) (test code = 6247370001) mL/min/1.73m2 eGFR Calculation () (test code = 2543913030) mL/min/1.73m2 BEVERLY (test code = BEVERLY) Association of Glomerular Filtration Rate (GFR) and Staging of Kidney Disease* + --+ --+ ------+| GFR (mL/min/1.73 m2) ?| With Kidney Damage ?| ?Without Kidney Damage+ --------+ --------+ +| ?>90 ?| ?Stage one ?| ? Normal ?+ ---+ ---+ -------+| ?60-89 ?| ?Stage two ?| ? Decreased GFR ? + --+ --+ ------+| ?30-59 ?| ?Stage three ?| ? Stage three ? + --+ --+ ------+| ?15-29 ?| ?Stage four ? | ? Stage four ?+ ---+ ---+ -------+| ?<15 (or dialysis) ? ?| ?Stage five ? | ? Stage five ?+ ---+ ---+ -------+ *Each stage assumes the associated GFR level has been in effect for at least three months. ?Stages 1 to 5, with or without kidney disease, indicate chronic kidney disease. Notes: Determination of stages one and two (with eGFR >59mL/min/1.73 m2) requires estimation of kidney damage for at least three months as defined by structural or functional abnormalities of the kidney, manifested by either:Pathological abnormalities or Markers of kidney damage (including abnormalities in the composition of the blood or urine or abnormalities in imaging tests). Lab Interpretation (test code = 26514-5) [facility] [id number] 02:38:00* Test Item Value Reference Range Interpretation Comme nts LIPASE (test code = 7572636999) 40 U/L 0-220 Lab Interpretation (test cod e = 55437-6) Normal [facility] (ALB, T.PRO, BILI T, BU/BC, ALT, AST, ALK PHOS)2020-04-22 02:38:00* Test Item Value Reference Range Interpretation Comme nts TOTAL BILI (test code = 0985984197) 0.2 mg/dL 0.1-1.1 BILI UNCON (test code = 1082184989) 0.2 mg/dL 0.1-1.1 BILI CONJ (test code = 2296387598) 0.0 mg/dL 0-0.3 T PROTEIN (test code = 8901156735) 7.2 g/dL 6.3-8.2 ALBUMIN (test code = 5931341802) 4.2 g/dL 3.5-5 ALK PHOS (test code = 8532563592) 58 U/L 34-122 ALTv (test code = 1742-6) 18 U/L 5-50 AST(SGOT) (test code = 9237716495) 21 U/L 13-40 Lab Interpretation (test cod e = 40157-5) [facility] (NA, K, CL, CO2, GLUCOSE, BUN, CREATININE, CA)2020-04-22 02:38:00* Test Item Value Reference Range Interpretation Comme nts NA (test code = 8230508154) 139 mmol/L 135-145 K (test code = 7382926190) 4.1 mmol/L 3.5-5 CL (test code = 1300942916) 103 mmol/L 98-108 CO2 TOTAL (test code = 4452290798) 26 mmol/L 23-31 AGAP (test code = 9256107912) 2-16 BUN (test code = 0981621437) 9 mg/dL 7-23 GLUCOSE (test code = 5594190811) 115 mg/dL 70-110 H CREATININE (test code = 0729902776) 0.84 mg/dL 0.6-1.25 CALCIUM (test code = 0714378017) 8.4 mg/dL 8.6-10.6 L eGFR Calculation (Non-) (test code = 6949844290) mL/min/1.73m2 eGFR Calculation () (test code = 2771797044) mL/min/1.73m2 BEVERLY (test code = BEVERLY) Association of Glomerular Filtration Rate (GFR) and Staging of Kidney Disease* + --+ --+ ------+| GFR (mL/min/1.73 m2) ?| With Kidney Damage ?| ?Without Kidney Damage+ --------+ --------+ +| ?>90 ?| ?Stage one ?| ? Normal ?+ ---+ ---+ -------+| ?60-89 ?| ?Stage two ?| ? Decreased GFR ? + --+ --+ ------+| ?30-59 ?| ?Stage three ?| ? Stage three ? + --+ --+ ------+| ?15-29 ?| ?Stage four ? | ? Stage four ?+ ---+ ---+ -------+| ?<15 (or dialysis) ? ?| ?Stage five ? | ? Stage five ?+ ---+ ---+ -------+ *Each stage assumes the associated GFR level has been in effect for at least three months. ?Stages 1 to 5, with or without kidney disease, indicate chronic kidney disease. Notes: Determination of stages one and two (with eGFR >59mL/min/1.73 m2) requires estimation of kidney damage for at least three months as defined by structural or functional abnormalities of the kidney, manifested by either:Pathological abnormalities or Markers of kidney damage (including abnormalities in the composition of the blood or urine or abnormalities in imaging tests). Lab Interpretation (test code = 07918-5) [facility] [id number] 02:38:00* Test Item Value Reference Range Interpretation Comme nts LIPASE (test code = 2815639966) 40 U/L 0-220 Lab Interpretation (test cod e = 22461-8) Normal [facility] (ALB, T.PRO, BILI T, BU/BC, ALT, AST, ALK PHOS)2020-04-22 02:38:00* Test Item Value Reference Range Interpretation Comme nts TOTAL BILI (test code = 3394002394) 0.2 mg/dL 0.1-1.1 BILI UNCON (test code = 2568071771) 0.2 mg/dL 0.1-1.1 BILI CONJ (test code = 7554340379) 0.0 mg/dL 0-0.3 T PROTEIN (test code = 5253252911) 7.2 g/dL 6.3-8.2 ALBUMIN (test code = 4046699319) 4.2 g/dL 3.5-5 ALK PHOS (test code = 4143795509) 58 U/L 34-122 ALTv (test code = 1742-6) 18 U/L 5-50 AST(SGOT) (test code = 6909242035) 21 U/L 13-40 Lab Interpretation (test cod e = 24444-4) [facility] (NA, K, CL, CO2, GLUCOSE, BUN, CREATININE, CA)2020-04-22 02:38:00* Test Item Value Reference Range Interpretation Comme nts NA (test code = 6991817771) 139 mmol/L 135-145 K (test code = 5441979174) 4.1 mmol/L 3.5-5 CL (test code = 1271513633) 103 mmol/L 98-108 CO2 TOTAL (test code = 2545105819) 26 mmol/L 23-31 AGAP (test code = 6805064492) 2-16 BUN (test code = 0685349152) 9 mg/dL 7-23 GLUCOSE (test code = 7603352553) 115 mg/dL 70-110 H CREATININE (test code = 9643527369) 0.84 mg/dL 0.6-1.25 CALCIUM (test code = 9740592741) 8.4 mg/dL 8.6-10.6 L eGFR Calculation (Non-) (test code = 6806965705) mL/min/1.73m2 eGFR Calculation () (test code = 2965075508) mL/min/1.73m2 BEVERLY (test code = BEVERLY) Association of Glomerular Filtration Rate (GFR) and Staging of Kidney Disease* + --+ --+ ------+| GFR (mL/min/1.73 m2) ?| With Kidney Damage ?| ?Without Kidney Damage+ --------+ --------+ +| ?>90 ?| ?Stage one ?| ? Normal ?+ ---+ ---+ -------+| ?60-89 ?| ?Stage two ?| ? Decreased GFR ? + --+ --+ ------+| ?30-59 ?| ?Stage three ?| ? Stage three ? + --+ --+ ------+| ?15-29 ?| ?Stage four ? | ? Stage four ?+ ---+ ---+ -------+| ?<15 (or dialysis) ? ?| ?Stage five ? | ? Stage five ?+ ---+ ---+ -------+ *Each stage assumes the associated GFR level has been in effect for at least three months. ?Stages 1 to 5, with or without kidney disease, indicate chronic kidney disease. Notes: Determination of stages one and two (with eGFR >59mL/min/1.73 m2) requires estimation of kidney damage for at least three months as defined by structural or functional abnormalities of the kidney, manifested by either:Pathological abnormalities or Markers of kidney damage (including abnormalities in the composition of the blood or urine or abnormalities in imaging tests). Lab Interpretation (test code = 30959-5) [facility]normal [facility] [id number] 02:38:00* Test Item Value Reference Range Interpretation Comme nts LIPASE (test code = 8567150177) 40 U/L 0-220 Lab Interpretation (test cod e = 71741-3) [facility] (ALB, T.PRO, BILI T, BU/BC, ALT, AST, ALK PHOS)2020-04-22 02:38:00* Test Item Value Reference Range Interpretation Comme nts TOTAL BILI (test code = 1938176357) 0.2 mg/dL 0.1-1.1 BILI UNCON (test code = 3420543654) 0.2 mg/dL 0.1-1.1 BILI CONJ (test code = 3033273619) 0.0 mg/dL 0-0.3 T PROTEIN (test code = 7374336145) 7.2 g/dL 6.3-8.2 ALBUMIN (test code = 0807994030) 4.2 g/dL 3.5-5 ALK PHOS (test code = 2334052192) 58 U/L 34-122 ALTv (test code = 1742-6) 18 U/L 5-50 AST(SGOT) (test code = 5262310811) 21 U/L 13-40 Lab Interpretation (test cod e = 76554-8) Normal [facility] Metabolic Panel (NA, K, CL, CO2, GLUCOSE, BUN, CREATININE, CA)2020-04-22 02:38:00* Test Item Value Reference Range Interpretation Comme nts NA (test code = 5921790693) 139 mmol/L 135-145 K (test code = 7220601756) 4.1 mmol/L 3.5-5 CL (test code = 5891416561) 103 mmol/L 98-108 CO2 TOTAL (test code = 0743976551) 26 mmol/L 23-31 AGAP (test code = 3390766930) 2-16 BUN (test code = 4829369552) 9 mg/dL 7-23 GLUCOSE (test code = 9886820986) 115 mg/dL 70-110 H CREATININE (test code = 3422051357) 0.84 mg/dL 0.6-1.25 CALCIUM (test code = 7819983318) 8.4 mg/dL 8.6-10.6 L eGFR Calculation (Non-) (test code = 8043120148) mL/min/1.73m2 eGFR Calculation () (test code = 9339578711) mL/min/1.73m2 BEVERLY (test code = BEVERLY) Association of Glomerular Filtration Rate (GFR) and Staging of Kidney Disease* + --+ --+ ------+| GFR (mL/min/1.73 m2) ?| With Kidney Damage ?| ?Without Kidney Damage+ --------+ --------+ +| ?>90 ?| ?Stage one ?| ? Normal ?+ ---+ ---+ -------+| ?60-89 ?| ?Stage two ?| ? Decreased GFR ? + --+ --+ ------+| ?30-59 ?| ?Stage three ?| ? Stage three ? + --+ --+ ------+| ?15-29 ?| ?Stage four ? | ? Stage four ?+ ---+ ---+ -------+| ?<15 (or dialysis) ? ?| ?Stage five ? | ? Stage five ?+ ---+ ---+ -------+ *Each stage assumes the associated GFR level has been in effect for at least three months. ?Stages 1 to 5, with or without kidney disease, indicate chronic kidney disease. Notes: Determination of stages one and two (with eGFR >59mL/min/1.73 m2) requires estimation of kidney damage for at least three months as defined by structural or functional abnormalities of the kidney, manifested by either:Pathological abnormalities or Markers of kidney damage (including abnormalities in the composition of the blood or urine or abnormalities in imaging tests). Lab Interpretation (test code = 39679-5) [facility]normal [facility] [id number] 02:38:00* Test Item Value Reference Range Interpretation Comme nts LIPASE (test code = 3616908372) 40 U/L 0-220 Lab Interpretation (test cod e = 04796-9) Normal [facility] (ALB, T.PRO, BILI T, BU/BC, ALT, AST, ALK PHOS)2020-04-22 02:38:00* Test Item Value Reference Range Interpretation Comme nts TOTAL BILI (test code = 9297836945) 0.2 mg/dL 0.1-1.1 BILI UNCON (test code = 3287115032) 0.2 mg/dL 0.1-1.1 BILI CONJ (test code = 6511382008) 0.0 mg/dL 0-0.3 T PROTEIN (test code = 4147271319) 7.2 g/dL 6.3-8.2 ALBUMIN (test code = 5252737642) 4.2 g/dL 3.5-5 ALK PHOS (test code = 3180033801) 58 U/L 34-122 ALTv (test code = 1742-6) 18 U/L 5-50 AST(SGOT) (test code = 9580274208) 21 U/L 13-40 Lab Interpretation (test cod e = 10794-2) [facility] (NA, K, CL, CO2, GLUCOSE, BUN, CREATININE, CA)2020-04-22 02:38:00* Test Item Value Reference Range Interpretation Comme nts NA (test code = 4729224359) 139 mmol/L 135-145 K (test code = 6123971643) 4.1 mmol/L 3.5-5 CL (test code = 0137329828) 103 mmol/L 98-108 CO2 TOTAL (test code = 6359144418) 26 mmol/L 23-31 AGAP (test code = 1288018537) 2-16 BUN (test code = 4816832993) 9 mg/dL 7-23 GLUCOSE (test code = 8718337411) 115 mg/dL 70-110 H CREATININE (test code = 7093922658) 0.84 mg/dL 0.6-1.25 CALCIUM (test code = 4842874455) 8.4 mg/dL 8.6-10.6 L eGFR Calculation (Non-) (test code = 8818638534) mL/min/1.73m2 eGFR Calculation () (test code = 9459633858) mL/min/1.73m2 BEVERLY (test code = BEVERLY) Association of Glomerular Filtration Rate (GFR) and Staging of Kidney Disease* + --+ --+ ------+| GFR (mL/min/1.73 m2) ?| With Kidney Damage ?| ?Without Kidney Damage+ --------+ --------+ +| ?>90 ?| ?Stage one ?| ? Normal ?+ ---+ ---+ -------+| ?60-89 ?| ?Stage two ?| ? Decreased GFR ? + --+ --+ ------+| ?30-59 ?| ?Stage three ?| ? Stage three ? + --+ --+ ------+| ?15-29 ?| ?Stage four ? | ? Stage four ?+ ---+ ---+ -------+| ?<15 (or dialysis) ? ?| ?Stage five ? | ? Stage five ?+ ---+ ---+ -------+ *Each stage assumes the associated GFR level has been in effect for at least three months. ?Stages 1 to 5, with or without kidney disease, indicate chronic kidney disease. Notes: Determination of stages one and two (with eGFR >59mL/min/1.73 m2) requires estimation of kidney damage for at least three months as defined by structural or functional abnormalities of the kidney, manifested by either:Pathological abnormalities or Markers of kidney damage (including abnormalities in the composition of the blood or urine or abnormalities in imaging tests). Lab Interpretation (test code = 24418-4) [facility]normal [facility] [id number] 02:38:00* Test Item Value Reference Range Interpretation Comme nts LIPASE (test code = 8261368998) 40 U/L 0-220 Lab Interpretation (test cod e = 13086-4) Normal [facility] (ALB, T.PRO, BILI T, BU/BC, ALT, AST, ALK PHOS)2020-04-22 02:38:00* Test Item Value Reference Range Interpretation Comme nts TOTAL BILI (test code = 4325415019) 0.2 mg/dL 0.1-1.1 BILI UNCON (test code = 6533483084) 0.2 mg/dL 0.1-1.1 BILI CONJ (test code = 3417757697) 0.0 mg/dL 0-0.3 T PROTEIN (test code = 1203304991) 7.2 g/dL 6.3-8.2 ALBUMIN (test code = 7125522792) 4.2 g/dL 3.5-5 ALK PHOS (test code = 6391233540) 58 U/L 34-122 ALTv (test code = 1742-6) 18 U/L 5-50 AST(SGOT) (test code = 2775495524) 21 U/L 13-40 Lab Interpretation (test cod e = 99732-9) [facility] (NA, K, CL, CO2, GLUCOSE, BUN, CREATININE, CA)2020-04-22 02:38:00* Test Item Value Reference Range Interpretation Comme nts NA (test code = 7565046444) 139 mmol/L 135-145 K (test code = 2108334147) 4.1 mmol/L 3.5-5 CL (test code = 9684852495) 103 mmol/L 98-108 CO2 TOTAL (test code = 6061532683) 26 mmol/L 23-31 AGAP (test code = 6620961950) 2-16 BUN (test code = 5370472179) 9 mg/dL 7-23 GLUCOSE (test code = 8037153103) 115 mg/dL 70-110 H CREATININE (test code = 0222217540) 0.84 mg/dL 0.6-1.25 CALCIUM (test code = 3383450064) 8.4 mg/dL 8.6-10.6 L eGFR Calculation (Non-) (test code = 9628173591) mL/min/1.73m2 eGFR Calculation () (test code = 2101340406) mL/min/1.73m2 BEVERLY (test code = BEVERLY) Association of Glomerular Filtration Rate (GFR) and Staging of Kidney Disease* + --+ --+ ------+| GFR (mL/min/1.73 m2) ?| With Kidney Damage ?| ?Without Kidney Damage+ --------+ --------+ +| ?>90 ?| ?Stage one ?| ? Normal ?+ ---+ ---+ -------+| ?60-89 ?| ?Stage two ?| ? Decreased GFR ? + --+ --+ ------+| ?30-59 ?| ?Stage three ?| ? Stage three ? + --+ --+ ------+| ?15-29 ?| ?Stage four ? | ? Stage four ?+ ---+ ---+ -------+| ?<15 (or dialysis) ? ?| ?Stage five ? | ? Stage five ?+ ---+ ---+ -------+ *Each stage assumes the associated GFR level has been in effect for at least three months. ?Stages 1 to 5, with or without kidney disease, indicate chronic kidney disease. Notes: Determination of stages one and two (with eGFR >59mL/min/1.73 m2) requires estimation of kidney damage for at least three months as defined by structural or functional abnormalities of the kidney, manifested by either:Pathological abnormalities or Markers of kidney damage (including abnormalities in the composition of the blood or urine or abnormalities in imaging tests). Lab Interpretation (test code = 43487-6) [facility]normal [facility] [id number] 02:38:00* Test Item Value Reference Range Interpretation Comme [facility] LIPASE (test code = 0870232674) 40 U/L 0-220 Lab Interpretation (test cod e = 61653-8) Normal [facility] (ALB, T.PRO, BILI T, BU/BC, ALT, AST, ALK PHOS)2020-04-22 02:38:00* Test Item Value Reference Range Interpretation Comme nts TOTAL BILI (test code = 3833752731) 0.2 mg/dL 0.1-1.1 BILI UNCON (test code = 3178047923) 0.2 mg/dL 0.1-1.1 BILI CONJ (test code = 8543513356) 0.0 mg/dL 0-0.3 T PROTEIN (test code = 8852100003) 7.2 g/dL 6.3-8.2 ALBUMIN (test code = 4225876493) 4.2 g/dL 3.5-5 ALK PHOS (test code = 1068609004) 58 U/L 34-122 ALTv (test code = 1742-6) 18 U/L 5-50 AST(SGOT) (test code = 5515190687) 21 U/L 13-40 Lab Interpretation (test cod e = 49364-7) Normal [facility] Metabolic Panel (NA, K, CL, CO2, GLUCOSE, BUN, CREATININE, CA)2020-04-22 02:38:00* Test Item Value Reference Range Interpretation Comme nts NA (test code = 4323948841) 139 mmol/L 135-145 K (test code = 9733734030) 4.1 mmol/L 3.5-5 CL (test code = 4915636103) 103 mmol/L 98-108 CO2 TOTAL (test code = 6017171480) 26 mmol/L 23-31 AGAP (test code = 3474673661) 2-16 BUN (test code = 9005678831) 9 mg/dL 7-23 GLUCOSE (test code = 2817804564) 115 mg/dL 70-110 H CREATININE (test code = 8964944992) 0.84 mg/dL 0.6-1.25 CALCIUM (test code = 5002395709) 8.4 mg/dL 8.6-10.6 L eGFR Calculation (Non-) (test code = 9161052858) mL/min/1.73m2 eGFR Calculation () (test code = 7865502119) mL/min/1.73m2 BEVERLY (test code = BEVERLY) Association of Glomerular Filtration Rate (GFR) and Staging of Kidney Disease* + --+ --+ ------+| GFR (mL/min/1.73 m2) ?| With Kidney Damage ?| ?Without Kidney Damage+ --------+ --------+ +| ?>90 ?| ?Stage one ?| ? Normal ?+ ---+ ---+ -------+| ?60-89 ?| ?Stage two ?| ? Decreased GFR ? + --+ --+ ------+| ?30-59 ?| ?Stage three ?| ? Stage three ? + --+ --+ ------+| ?15-29 ?| ?Stage four ? | ? Stage four ?+ ---+ ---+ -------+| ?<15 (or dialysis) ? ?| ?Stage five ? | ? Stage five ?+ ---+ ---+ -------+ *Each stage assumes the associated GFR level has been in effect for at least three months. ?Stages 1 to 5, with or without kidney disease, indicate chronic kidney disease. Notes: Determination of stages one and two (with eGFR >59mL/min/1.73 m2) requires estimation of kidney damage for at least three months as defined by structural or functional abnormalities of the kidney, manifested by either:Pathological abnormalities or Markers of kidney damage (including abnormalities in the composition of the blood or urine or abnormalities in imaging tests). Lab Interpretation (test code = 79750-0) [facility]normal [facility] [id number] 02:38:00* Test Item Value Reference Range Interpretation Comme nts LIPASE (test code = 6622788850) 40 U/L 0-220 Lab Interpretation (test cod e = 23335-8) Normal [facility] (ALB, T.PRO, BILI T, BU/BC, ALT, AST, ALK PHOS)2020-04-22 02:38:00* Test Item Value Reference Range Interpretation Comme nts TOTAL BILI (test code = 5300300148) 0.2 mg/dL 0.1-1.1 BILI UNCON (test code = 8608473689) 0.2 mg/dL 0.1-1.1 BILI CONJ (test code = 2878677991) 0.0 mg/dL 0-0.3 T PROTEIN (test code = 0044453927) 7.2 g/dL 6.3-8.2 ALBUMIN (test code = 1892242395) 4.2 g/dL 3.5-5 ALK PHOS (test code = 7122043577) 58 U/L 34-122 ALTv (test code = 1742-6) 18 U/L 5-50 AST(SGOT) (test code = 3228319689) 21 U/L 13-40 Lab Interpretation (test cod e = 26066-6) Normal [facility] Metabolic Panel (NA, K, CL, CO2, GLUCOSE, BUN, CREATININE, CA)2020-04-22 02:38:00* Test Item Value Reference Range Interpretation Comme nts NA (test code = 9812491757) 139 mmol/L 135-145 K (test code = 5390946436) 4.1 mmol/L 3.5-5 CL (test code = 3961197677) 103 mmol/L 98-108 CO2 TOTAL (test code = 6784106717) 26 mmol/L 23-31 AGAP (test code = 9722899766) 2-16 BUN (test code = 6118285196) 9 mg/dL 7-23 GLUCOSE (test code = 9345902536) 115 mg/dL 70-110 H CREATININE (test code = 9970665071) 0.84 mg/dL 0.6-1.25 CALCIUM (test code = 7830158393) 8.4 mg/dL 8.6-10.6 L eGFR Calculation (Non-) (test code = 0161318743) mL/min/1.73m2 eGFR Calculation () (test code = 9530370739) mL/min/1.73m2 BEVERLY (test code = BEVERLY) Association of Glomerular Filtration Rate (GFR) and Staging of Kidney Disease* + --+ --+ ------+| GFR (mL/min/1.73 m2) ?| With Kidney Damage ?| ?Without Kidney Damage+ --------+ --------+ +| ?>90 ?| ?Stage one ?| ? Normal ?+ ---+ ---+ -------+| ?60-89 ?| ?Stage two ?| ? Decreased GFR ? + --+ --+ ------+| ?30-59 ?| ?Stage three ?| ? Stage three ? + --+ --+ ------+| ?15-29 ?| ?Stage four ? | ? Stage four ?+ ---+ ---+ -------+| ?<15 (or dialysis) ? ?| ?Stage five ? | ? Stage five ?+ ---+ ---+ -------+ *Each stage assumes the associated GFR level has been in effect for at least three months. ?Stages 1 to 5, with or without kidney disease, indicate chronic kidney disease. Notes: Determination of stages one and two (with eGFR >59mL/min/1.73 m2) requires estimation of kidney damage for at least three months as defined by structural or functional abnormalities of the kidney, manifested by either:Pathological abnormalities or Markers of kidney damage (including abnormalities in the composition of the blood or urine or abnormalities in imaging tests). Lab Interpretation (test code = 84274-6) [facility] [id number] 02:38:00* Test Item Value Reference Range Interpretation Comme nts LIPASE (test code = 8478745567) 40 U/L 0-220 Lab Interpretation (test cod e = 43598-9) [facility] (ALB, T.PRO, BILI T, BU/BC, ALT, AST, ALK PHOS)2020-04-22 02:38:00* Test Item Value Reference Range Interpretation Comme nts TOTAL BILI (test code = 3665524524) 0.2 mg/dL 0.1-1.1 BILI UNCON (test code = 1829014868) 0.2 mg/dL 0.1-1.1 BILI CONJ (test code = 6088731435) 0.0 mg/dL 0-0.3 T PROTEIN (test code = 4875645180) 7.2 g/dL 6.3-8.2 ALBUMIN (test code = 0906680884) 4.2 g/dL 3.5-5 ALK PHOS (test code = 9604852923) 58 U/L 34-122 ALTv (test code = 1742-6) 18 U/L 5-50 AST(SGOT) (test code = 9678817457) 21 U/L 13-40 Lab Interpretation (test cod e = 59826-5) [facility] (NA, K, CL, CO2, GLUCOSE, BUN, CREATININE, CA)2020-04-22 02:38:00* Test Item Value Reference Range Interpretation Comme nts NA (test code = 6873884923) 139 mmol/L 135-145 K (test code = 6456903458) 4.1 mmol/L 3.5-5 CL (test code = 8342373128) 103 mmol/L 98-108 CO2 TOTAL (test code = 5514931168) 26 mmol/L 23-31 AGAP (test code = 4795161185) 2-16 BUN (test code = 4199417426) 9 mg/dL 7-23 GLUCOSE (test code = 8109540189) 115 mg/dL 70-110 H CREATININE (test code = 7759232723) 0.84 mg/dL 0.6-1.25 CALCIUM (test code = 5538111754) 8.4 mg/dL 8.6-10.6 L eGFR Calculation (Non-) (test code = 6264853244) mL/min/1.73m2 eGFR Calculation () (test code = 4577806415) mL/min/1.73m2 BEVERLY (test code = BEVERLY) Association of Glomerular Filtration Rate (GFR) and Staging of Kidney Disease* + --+ --+ ------+| GFR (mL/min/1.73 m2) ?| With Kidney Damage ?| ?Without Kidney Damage+ --------+ --------+ +| ?>90 ?| ?Stage one ?| ? Normal ?+ ---+ ---+ -------+| ?60-89 ?| ?Stage two ?| ? Decreased GFR ? + --+ --+ ------+| ?30-59 ?| ?Stage three ?| ? Stage three ? + --+ --+ ------+| ?15-29 ?| ?Stage four ? | ? Stage four ?+ ---+ ---+ -------+| ?<15 (or dialysis) ? ?| ?Stage five ? | ? Stage five ?+ ---+ ---+ -------+ *Each stage assumes the associated GFR level has been in effect for at least three months. ?Stages 1 to 5, with or without kidney disease, indicate chronic kidney disease. Notes: Determination of stages one and two (with eGFR >59mL/min/1.73 m2) requires estimation of kidney damage for at least three months as defined by structural or functional abnormalities of the kidney, manifested by either:Pathological abnormalities or Markers of kidney damage (including abnormalities in the composition of the blood or urine or abnormalities in imaging tests). Lab Interpretation (test code = 60055-2) [facility] [id number] 02:38:00* Test Item Value Reference Range Interpretation Comme nts LIPASE (test code = 8762971283) 40 U/L 0-220 Lab Interpretation (test cod e = 36470-6) [facility] (ALB, T.PRO, BILI T, BU/BC, ALT, AST, ALK PHOS)2020-04-22 02:38:00* Test Item Value Reference Range Interpretation Comme nts TOTAL BILI (test code = 4536575018) 0.2 mg/dL 0.1-1.1 BILI UNCON (test code = 6320745387) 0.2 mg/dL 0.1-1.1 BILI CONJ (test code = 0023919994) 0.0 mg/dL 0-0.3 T PROTEIN (test code = 5356445413) 7.2 g/dL 6.3-8.2 ALBUMIN (test code = 8566786303) 4.2 g/dL 3.5-5 ALK PHOS (test code = 2945032482) 58 U/L 34-122 ALTv (test code = 1742-6) 18 U/L 5-50 AST(SGOT) (test code = 3627590728) 21 U/L 13-40 Lab Interpretation (test cod e = 99292-9) [facility] (NA, K, CL, CO2, GLUCOSE, BUN, CREATININE, CA)2020-04-22 02:38:00* Test Item Value Reference Range Interpretation Comme nts NA (test code = 7212478908) 139 mmol/L 135-145 K (test code = 3066483226) 4.1 mmol/L 3.5-5 CL (test code = 1540878656) 103 mmol/L 98-108 CO2 TOTAL (test code = 0765199126) 26 mmol/L 23-31 AGAP (test code = 7993554543) 2-16 BUN (test code = 9776406153) 9 mg/dL 7-23 GLUCOSE (test code = 0451743971) 115 mg/dL 70-110 H CREATININE (test code = 2357646841) 0.84 mg/dL 0.6-1.25 CALCIUM (test code = 3391529629) 8.4 mg/dL 8.6-10.6 L eGFR Calculation (Non-) (test code = 4537027544) mL/min/1.73m2 eGFR Calculation () (test code = 0305438200) mL/min/1.73m2 BEVERLY (test code = BEVERLY) Association of Glomerular Filtration Rate (GFR) and Staging of Kidney Disease* + --+ --+ ------+| GFR (mL/min/1.73 m2) ?| With Kidney Damage ?| ?Without Kidney Damage+ --------+ --------+ +| ?>90 ?| ?Stage one ?| ? Normal ?+ ---+ ---+ -------+| ?60-89 ?| ?Stage two ?| ? Decreased GFR ? + --+ --+ ------+| ?30-59 ?| ?Stage three ?| ? Stage three ? + --+ --+ ------+| ?15-29 ?| ?Stage four ? | ? Stage four ?+ ---+ ---+ -------+| ?<15 (or dialysis) ? ?| ?Stage five ? | ? Stage five ?+ ---+ ---+ -------+ *Each stage assumes the associated GFR level has been in effect for at least three months. ?Stages 1 to 5, with or without kidney disease, indicate chronic kidney disease. Notes: Determination of stages one and two (with eGFR >59mL/min/1.73 m2) requires estimation of kidney damage for at least three months as defined by structural or functional abnormalities of the kidney, manifested by either:Pathological abnormalities or Markers of kidney damage (including abnormalities in the composition of the blood or urine or abnormalities in imaging tests). Lab Interpretation (test code = 35909-2) [facility] [id number] 02:38:00* Test Item Value Reference Range Interpretation Comme nts LIPASE (test code = 8253567866) 40 U/L 0-220 Lab Interpretation (test cod e = 34852-0) [facility] (ALB, T.PRO, BILI T, BU/BC, ALT, AST, ALK PHOS)2020-04-22 02:38:00* Test Item Value Reference Range Interpretation Comme nts TOTAL BILI (test code = 1716659144) 0.2 mg/dL 0.1-1.1 BILI UNCON (test code = 9608633637) 0.2 mg/dL 0.1-1.1 BILI CONJ (test code = 2561728776) 0.0 mg/dL 0-0.3 T PROTEIN (test code = 5222602399) 7.2 g/dL 6.3-8.2 ALBUMIN (test code = 1393684902) 4.2 g/dL 3.5-5 ALK PHOS (test code = 0530729428) 58 U/L 34-122 ALTv (test code = 1742-6) 18 U/L 5-50 AST(SGOT) (test code = 8398316694) 21 U/L 13-40 Lab Interpretation (test cod e = 92158-6) [facility] (NA, K, CL, CO2, GLUCOSE, BUN, CREATININE, CA)2020-04-22 02:38:00* Test Item Value Reference Range Interpretation Comme nts NA (test code = 9002504245) 139 mmol/L 135-145 K (test code = 2254987187) 4.1 mmol/L 3.5-5 CL (test code = 4944557102) 103 mmol/L 98-108 CO2 TOTAL (test code = 2479195873) 26 mmol/L 23-31 AGAP (test code = 0449132610) 2-16 BUN (test code = 4816461689) 9 mg/dL 7-23 GLUCOSE (test code = 6889685540) 115 mg/dL 70-110 H CREATININE (test code = 0592130379) 0.84 mg/dL 0.6-1.25 CALCIUM (test code = 3959367811) 8.4 mg/dL 8.6-10.6 L eGFR Calculation (Non-) (test code = 5632667925) mL/min/1.73m2 eGFR Calculation () (test code = 7043814990) mL/min/1.73m2 BEVERLY (test code = BEVERLY) Association of Glomerular Filtration Rate (GFR) and Staging of Kidney Disease* + --+ --+ ------+| GFR (mL/min/1.73 m2) ?| With Kidney Damage ?| ?Without Kidney Damage+ --------+ --------+ +| ?>90 ?| ?Stage one ?| ? Normal ?+ ---+ ---+ -------+| ?60-89 ?| ?Stage two ?| ? Decreased GFR ? + --+ --+ ------+| ?30-59 ?| ?Stage three ?| ? Stage three ? + --+ --+ ------+| ?15-29 ?| ?Stage four ? | ? Stage four ?+ ---+ ---+ -------+| ?<15 (or dialysis) ? ?| ?Stage five ? | ? Stage five ?+ ---+ ---+ -------+ *Each stage assumes the associated GFR level has been in effect for at least three months. ?Stages 1 to 5, with or without kidney disease, indicate chronic kidney disease. Notes: Determination of stages one and two (with eGFR >59mL/min/1.73 m2) requires estimation of kidney damage for at least three months as defined by structural or functional abnormalities of the kidney, manifested by either:Pathological abnormalities or Markers of kidney damage (including abnormalities in the composition of the blood or urine or abnormalities in imaging tests). Lab Interpretation (test code = 40112-5) [facility] [id number] 02:38:00* Test Item Value Reference Range Interpretation Comme nts LIPASE (test code = 4207123007) 40 U/L 0-220 Lab Interpretation (test cod e = 21780-0) [facility] (ALB, T.PRO, BILI T, BU/BC, ALT, AST, ALK PHOS)2020-04-22 02:38:00* Test Item Value Reference Range Interpretation Comme nts TOTAL BILI (test code = 2125147043) 0.2 mg/dL 0.1-1.1 BILI UNCON (test code = 8377261426) 0.2 mg/dL 0.1-1.1 BILI CONJ (test code = 7396852318) 0.0 mg/dL 0-0.3 T PROTEIN (test code = 0179558608) 7.2 g/dL 6.3-8.2 ALBUMIN (test code = 8082112386) 4.2 g/dL 3.5-5 ALK PHOS (test code = 4669924952) 58 U/L 34-122 ALTv (test code = 1742-6) 18 U/L 5-50 AST(SGOT) (test code = 3351196790) 21 U/L 13-40 Lab Interpretation (test cod e = 36672-1) Normal [facility] Metabolic Panel (NA, K, CL, CO2, GLUCOSE, BUN, CREATININE, CA)2020-04-22 02:38:00* Test Item Value Reference Range Interpretation Comme nts NA (test code = 2797111963) 139 mmol/L 135-145 K (test code = 6116575845) 4.1 mmol/L 3.5-5 CL (test code = 0114232667) 103 mmol/L 98-108 CO2 TOTAL (test code = 3843425723) 26 mmol/L 23-31 AGAP (test code = 2250965526) 2-16 BUN (test code = 4102027969) 9 mg/dL 7-23 GLUCOSE (test code = 0932142802) 115 mg/dL 70-110 H CREATININE (test code = 6124722870) 0.84 mg/dL 0.6-1.25 CALCIUM (test code = 5844158427) 8.4 mg/dL 8.6-10.6 L eGFR Calculation (Non-) (test code = 8311380124) mL/min/1.73m2 eGFR Calculation () (test code = 2097791305) mL/min/1.73m2 BEVERLY (test code = BEVERLY) Association of Glomerular Filtration Rate (GFR) and Staging of Kidney Disease* + --+ --+ ------+| GFR (mL/min/1.73 m2) ?| With Kidney Damage ?| ?Without Kidney Damage+ --------+ --------+ +| ?>90 ?| ?Stage one ?| ? Normal ?+ ---+ ---+ -------+| ?60-89 ?| ?Stage two ?| ? Decreased GFR ? + --+ --+ ------+| ?30-59 ?| ?Stage three ?| ? Stage three ? + --+ --+ ------+| ?15-29 ?| ?Stage four ? | ? Stage four ?+ ---+ ---+ -------+| ?<15 (or dialysis) ? ?| ?Stage five ? | ? Stage five ?+ ---+ ---+ -------+ *Each stage assumes the associated GFR level has been in effect for at least three months. ?Stages 1 to 5, with or without kidney disease, indicate chronic kidney disease. Notes: Determination of stages one and two (with eGFR >59mL/min/1.73 m2) requires estimation of kidney damage for at least three months as defined by structural or functional abnormalities of the kidney, manifested by either:Pathological abnormalities or Markers of kidney damage (including abnormalities in the composition of the blood or urine or abnormalities in imaging tests). Lab Interpretation (test code = 53286-5) [facility] Hibzb5199-36-47 02:38:00* Test Item Value Reference Range Interpretation Comme nts LIPASE (test code = 2956970188) 40 U/L 0-220 Lab Interpretation (test cod e = 95178-9) [facility] (ALB, T.PRO, BILI T, BU/BC, ALT, AST, ALK PHOS)2020-04-22 02:38:00* Test Item Value Reference Range Interpretation Comme nts TOTAL BILI (test code = 7864270078) 0.2 mg/dL 0.1-1.1 BILI UNCON (test code = 4127394634) 0.2 mg/dL 0.1-1.1 BILI CONJ (test code = 3280709617) 0.0 mg/dL 0-0.3 T PROTEIN (test code = 4147864450) 7.2 g/dL 6.3-8.2 ALBUMIN (test code = 9064402172) 4.2 g/dL 3.5-5 ALK PHOS (test code = 9253811492) 58 U/L 34-122 ALTv (test code = 1742-6) 18 U/L 5-50 AST(SGOT) (test code = 5182495696) 21 U/L 13-40 Lab Interpretation (test cod e = 42904-0) Normal [facility] Metabolic Panel (NA, K, CL, CO2, GLUCOSE, BUN, CREATININE, CA)2020-04-22 02:38:00* Test Item Value Reference Range Interpretation Comme nts NA (test code = 4485086202) 139 mmol/L 135-145 K (test code = 1089711450) 4.1 mmol/L 3.5-5 CL (test code = 7704473872) 103 mmol/L 98-108 CO2 TOTAL (test code = 8161832318) 26 mmol/L 23-31 AGAP (test code = 9693276978) 2-16 BUN (test code = 3726275811) 9 mg/dL 7-23 GLUCOSE (test code = 3743457879) 115 mg/dL 70-110 H CREATININE (test code = 4641407398) 0.84 mg/dL 0.6-1.25 CALCIUM (test code = 9626293994) 8.4 mg/dL 8.6-10.6 L eGFR Calculation (Non-) (test code = 4033842570) mL/min/1.73m2 eGFR Calculation () (test code = 0496539130) mL/min/1.73m2 BEVERLY (test code = BEVERLY) Association of Glomerular Filtration Rate (GFR) and Staging of Kidney Disease* + --+ --+ ------+| GFR (mL/min/1.73 m2) ?| With Kidney Damage ?| ?Without Kidney Damage+ --------+ --------+ +| ?>90 ?| ?Stage one ?| ? Normal ?+ ---+ ---+ -------+| ?60-89 ?| ?Stage two ?| ? Decreased GFR ? + --+ --+ ------+| ?30-59 ?| ?Stage three ?| ? Stage three ? + --+ --+ ------+| ?15-29 ?| ?Stage four ? | ? Stage four ?+ ---+ ---+ -------+| ?<15 (or dialysis) ? ?| ?Stage five ? | ? Stage five ?+ ---+ ---+ -------+ *Each stage assumes the associated GFR level has been in effect for at least three months. ?Stages 1 to 5, with or without kidney disease, indicate chronic kidney disease. Notes: Determination of stages one and two (with eGFR >59mL/min/1.73 m2) requires estimation of kidney damage for at least three months as defined by structural or functional abnormalities of the kidney, manifested by either:Pathological abnormalities or Markers of kidney damage (including abnormalities in the composition of the blood or urine or abnormalities in imaging tests). Lab Interpretation (test code = 67007-8) [facility] Hpcln5021-83-28 02:38:00* Test Item Value Reference Range Interpretation Comme nts LIPASE (test code = 6006617215) 40 U/L 0-220 Lab Interpretation (test cod e = 45864-0) [facility] (ALB, T.PRO, BILI T, BU/BC, ALT, AST, ALK PHOS)2020-04-22 02:38:00* Test Item Value Reference Range Interpretation Comme nts TOTAL BILI (test code = 0985136275) 0.2 mg/dL 0.1-1.1 BILI UNCON (test code = 5725431114) 0.2 mg/dL 0.1-1.1 BILI CONJ (test code = 9253544307) 0.0 mg/dL 0-0.3 T PROTEIN (test code = 1067096789) 7.2 g/dL 6.3-8.2 ALBUMIN (test code = 4319163704) 4.2 g/dL 3.5-5 ALK PHOS (test code = 8060285771) 58 U/L 34-122 ALTv (test code = 1742-6) 18 U/L 5-50 AST(SGOT) (test code = 2512679613) 21 U/L 13-40 Lab Interpretation (test cod e = 82246-6) [facility] (NA, K, CL, CO2, GLUCOSE, BUN, CREATININE, CA)2020-04-22 02:38:00* Test Item Value Reference Range Interpretation Comme nts NA (test code = 6042436681) 139 mmol/L 135-145 K (test code = 4077383436) 4.1 mmol/L 3.5-5 CL (test code = 5020390975) 103 mmol/L 98-108 CO2 TOTAL (test code = 3244297443) 26 mmol/L 23-31 AGAP (test code = 0298410943) 2-16 BUN (test code = 7656513529) 9 mg/dL 7-23 GLUCOSE (test code = 5791033926) 115 mg/dL 70-110 H CREATININE (test code = 7275056887) 0.84 mg/dL 0.6-1.25 CALCIUM (test code = 5770944538) 8.4 mg/dL 8.6-10.6 L eGFR Calculation (Non-) (test code = 0642084926) mL/min/1.73m2 eGFR Calculation () (test code = 6383438196) mL/min/1.73m2 BEVERLY (test code = BEVERLY) Association of Glomerular Filtration Rate (GFR) and Staging of Kidney Disease* + --+ --+ ------+| GFR (mL/min/1.73 m2) ?| With Kidney Damage ?| ?Without Kidney Damage+ --------+ --------+ +| ?>90 ?| ?Stage one ?| ? Normal ?+ ---+ ---+ -------+| ?60-89 ?| ?Stage two ?| ? Decreased GFR ? + --+ --+ ------+| ?30-59 ?| ?Stage three ?| ? Stage three ? + --+ --+ ------+| ?15-29 ?| ?Stage four ? | ? Stage four ?+ ---+ ---+ -------+| ?<15 (or dialysis) ? ?| ?Stage five ? | ? Stage five ?+ ---+ ---+ -------+ *Each stage assumes the associated GFR level has been in effect for at least three months. ?Stages 1 to 5, with or without kidney disease, indicate chronic kidney disease. Notes: Determination of stages one and two (with eGFR >59mL/min/1.73 m2) requires estimation of kidney damage for at least three months as defined by structural or functional abnormalities of the kidney, manifested by either:Pathological abnormalities or Markers of kidney damage (including abnormalities in the composition of the blood or urine or abnormalities in imaging tests). Lab Interpretation (test code = 17055-0) [facility] Khoex3741-99-17 02:38:00* Test Item Value Reference Range Interpretation Comme nts LIPASE (test code = 3420651176) 40 U/L 0-220 Lab Interpretation (test cod e = 11638-8) [facility] (ALB, T.PRO, BILI T, BU/BC, ALT, AST, ALK PHOS)2020-04-22 02:38:00* Test Item Value Reference Range Interpretation Comme nts TOTAL BILI (test code = 2023985584) 0.2 mg/dL 0.1-1.1 BILI UNCON (test code = 9038768017) 0.2 mg/dL 0.1-1.1 BILI CONJ (test code = 2109857124) 0.0 mg/dL 0-0.3 T PROTEIN (test code = 7811936321) 7.2 g/dL 6.3-8.2 ALBUMIN (test code = 7290437847) 4.2 g/dL 3.5-5 ALK PHOS (test code = 3699403074) 58 U/L 34-122 ALTv (test code = 1742-6) 18 U/L 5-50 AST(SGOT) (test code = 2494641631) 21 U/L 13-40 Lab Interpretation (test cod e = 75133-0) [facility] (NA, K, CL, CO2, GLUCOSE, BUN, CREATININE, CA)2020-04-22 02:38:00* Test Item Value Reference Range Interpretation Comme nts NA (test code = 0922133806) 139 mmol/L 135-145 K (test code = 6294582194) 4.1 mmol/L 3.5-5 CL (test code = 0710193283) 103 mmol/L 98-108 CO2 TOTAL (test code = 9358477936) 26 mmol/L 23-31 AGAP (test code = 8772092434) 2-16 BUN (test code = 1616527189) 9 mg/dL 7-23 GLUCOSE (test code = 8692745655) 115 mg/dL 70-110 H CREATININE (test code = 2590306543) 0.84 mg/dL 0.6-1.25 CALCIUM (test code = 4717868284) 8.4 mg/dL 8.6-10.6 L eGFR Calculation (Non-) (test code = 0636013044) mL/min/1.73m2 eGFR Calculation () (test code = 3852367355) mL/min/1.73m2 BEVERLY (test code = BEVERLY) Association of Glomerular Filtration Rate (GFR) and Staging of Kidney Disease* + --+ --+ ------+| GFR (mL/min/1.73 m2) ?| With Kidney Damage ?| ?Without Kidney Damage+ --------+ --------+ +| ?>90 ?| ?Stage one ?| ? Normal ?+ ---+ ---+ -------+| ?60-89 ?| ?Stage two ?| ? Decreased GFR ? + --+ --+ ------+| ?30-59 ?| ?Stage three ?| ? Stage three ? + --+ --+ ------+| ?15-29 ?| ?Stage four ? | ? Stage four ?+ ---+ ---+ -------+| ?<15 (or dialysis) ? ?| ?Stage five ? | ? Stage five ?+ ---+ ---+ -------+ *Each stage assumes the associated GFR level has been in effect for at least three months. ?Stages 1 to 5, with or without kidney disease, indicate chronic kidney disease. Notes: Determination of stages one and two (with eGFR >59mL/min/1.73 m2) requires estimation of kidney damage for at least three months as defined by structural or functional abnormalities of the kidney, manifested by either:Pathological abnormalities or Markers of kidney damage (including abnormalities in the composition of the blood or urine or abnormalities in imaging tests). Lab Interpretation (test code = 69495-8) Abnormal [facility] with Uegivfybjoqc7700-67-11 02:32:00* Test Item Value Reference Range Interpretation Comme nts WBC (test code = 6690-2) See_Comment [Automated [employer]] The system which generated this result transmitted reference range: 4.20 - 10.70 10*3/?L. The reference range was not used to interpret this result as normal/abnormal. RBC (test code = 789-8) See_Comment [Automated [employer]] The system which generated this result transmitted reference range: 4.26 - 5.52 10*6/?L. The reference range was not used to interpret this result as normal/abnormal. HGB (test code = 718-7) 15.0 g/dL 12.2-16.4 HCT (test code = 4544-3) 46.6 % 38.4-49.3 MCV (test code = 787-2) 90.3 fL 81.7-95.6 MCH (test code = 785-6) 29.1 pg 26.1-32.7 MCHC (test code = 786-4) 32.2 g/dL 31.2-35 RDW-SD (test code = 24832-1) 40.4 fL 38.5-51.6 RDW-CV (test code = 788-0) 12.2 % 12.1-15.4 PLT (test code = 777-3) See_Comment [Automated messa ge] The system which generated this result transmitted reference range: 150 - 328 10*3/?L. The reference range was not used to interpret this result as normal/abnormal. MPV (test code = 62018-1) 12.7 fL 9.8-13 NRBC/100 WBC (test code = 6963507487) See_Comment [Automated me ssage] The system which generated this result transmitted reference range: 0.0 - 10.0 /100 WBCs. The reference range was not used to interpret this result as normal/abnormal. NRBC x10^3 (test code = 4352216052) <0.01 See_Comment [Automated me ssage] The system which generated this result transmitted reference range: 10*3/?L. The reference range was not used to interpret this result as normal/abnormal. GRAN MAT (NEUT) % (test code = 770-8) 55.4 % IMM GRAN % (test code = 4518053232) 0.60 % LYMPH % (test code = 736-9) 33.8 % MONO % (test code = 5905-5) 7.2 % EOS % (test code = 713-8) 2.5 % BASO % (test code = 706-2) 0.5 % GRAN MAT x10^3(ANC) (test code = 6114461369) 3.56 10*3/uL 1.99-6.95 IMM GRAN x10^3 (test code = 8494331296) 0.04 10*3/uL 0-0.06 LYMPH x10^3 (test code = 731-0) 2.17 10*3/uL 1.09-3.23 MONO x10^3 (test code = 742-7) 0.46 10*3/uL 0.36-1.02 EOS x10^3 (test code = 711-2) 0.16 10*3/uL 0.06-0.53 BASO x10^3 (test code = 704-7) 0.03 10*3/uL 0.01-0.09 [facility] with Vrwolmjsacvb5914-33-40 02:32:00* Test Item Value Reference Range Interpretation Comme nts WBC (test code = 6690-2) See_Comment [Automated [employer]] The system which generated this result transmitted reference range: 4.20 - 10.70 10*3/?L. The reference range was not used to interpret this result as normal/abnormal. RBC (test code = 789-8) See_Comment [Automated [employer]] The system which generated this result transmitted reference range: 4.26 - 5.52 10*6/?L. The reference range was not used to interpret this result as normal/abnormal. HGB (test code = 718-7) 15.0 g/dL 12.2-16.4 HCT (test code = 4544-3) 46.6 % 38.4-49.3 MCV (test code = 787-2) 90.3 fL 81.7-95.6 MCH (test code = 785-6) 29.1 pg 26.1-32.7 MCHC (test code = 786-4) 32.2 g/dL 31.2-35 RDW-SD (test code = 93913-0) 40.4 fL 38.5-51.6 RDW-CV (test code = 788-0) 12.2 % 12.1-15.4 PLT (test code = 777-3) See_Comment [Automated [employer]] The system which generated this result transmitted reference range: 150 - 328 10*3/?L. The reference range was not used to interpret this result as normal/abnormal. MPV (test code = 73040-3) 12.7 fL 9.8-13 NRBC/100 WBC (test code = 9013414432) See_Comment [Automated me ssage] The system which generated this result transmitted reference range: 0.0 - 10.0 /100 WBCs. The reference range was not used to interpret this result as normal/abnormal. NRBC x10^3 (test code = 6413798813) <0.01 See_Comment [Automated me ssage] The system which generated this result transmitted reference range: 10*3/?L. The reference range was not used to interpret this result as normal/abnormal. GRAN MAT (NEUT) % (test code = 770-8) 55.4 % IMM GRAN % (test code = 8485488251) 0.60 % LYMPH % (test code = 736-9) 33.8 % MONO % (test code = 5905-5) 7.2 % EOS % (test code = 713-8) 2.5 % BASO % (test code = 706-2) 0.5 % GRAN MAT x10^3(ANC) (test code = 8544158162) 3.56 10*3/uL 1.99-6.95 IMM GRAN x10^3 (test code = 1590874558) 0.04 10*3/uL 0-0.06 LYMPH x10^3 (test code = 731-0) 2.17 10*3/uL 1.09-3.23 MONO x10^3 (test code = 742-7) 0.46 10*3/uL 0.36-1.02 EOS x10^3 (test code = 711-2) 0.16 10*3/uL 0.06-0.53 BASO x10^3 (test code = 704-7) 0.03 10*3/uL 0.01-0.09 [facility] with Ycfqrfqqjegs9717-27-66 02:32:00* Test Item Value Reference Range Interpretation Comme nts WBC (test code = 6690-2) See_Comment [Automated messa ge] The system which generated this result transmitted reference range: 4.20 - 10.70 10*3/?L. The reference range was not used to interpret this result as normal/abnormal. RBC (test code = 789-8) See_Comment [[employer]ated [employer]] The system which generated this result transmitted reference range: 4.26 - 5.52 10*6/?L. The reference range was not used to interpret this result as normal/abnormal. HGB (test code = 718-7) 15.0 g/dL 12.2-16.4 HCT (test code = 4544-3) 46.6 % 38.4-49.3 MCV (test code = 787-2) 90.3 fL 81.7-95.6 MCH (test code = 785-6) 29.1 pg 26.1-32.7 MCHC (test code = 786-4) 32.2 g/dL 31.2-35 RDW-SD (test code = 69106-9) 40.4 fL 38.5-51.6 RDW-CV (test code = 788-0) 12.2 % 12.1-15.4 PLT (test code = 777-3) See_Comment [[employer]ated [employer]] The system which generated this result transmitted reference range: 150 - 328 10*3/?L. The reference range was not used to interpret this result as normal/abnormal. MPV (test code = 02288-4) 12.7 fL 9.8-13 NRBC/100 WBC (test code = 8735875072) See_Comment [Automated [employer]] The system which generated this result transmitted reference range: 0.0 - 10.0 /100 WBCs. The reference range was not used to interpret this result as normal/abnormal. NRBC x10^3 (test code = 6644829186) <0.01 See_Comment [Automated [employer]] The system which generated this result transmitted reference range: 10*3/?L. The reference range was not used to interpret this result as normal/abnormal. GRAN MAT (NEUT) % (test code = 770-8) 55.4 % IMM GRAN % (test code = 4499058234) 0.60 % LYMPH % (test code = 736-9) 33.8 % MONO % (test code = 5905-5) 7.2 % EOS % (test code = 713-8) 2.5 % BASO % (test code = 706-2) 0.5 % GRAN MAT x10^3(ANC) (test code = 9949026446) 3.56 10*3/uL 1.99-6.95 IMM GRAN x10^3 (test code = 9112604532) 0.04 10*3/uL 0-0.06 LYMPH x10^3 (test code = 731-0) 2.17 10*3/uL 1.09-3.23 MONO x10^3 (test code = 742-7) 0.46 10*3/uL 0.36-1.02 EOS x10^3 (test code = 711-2) 0.16 10*3/uL 0.06-0.53 BASO x10^3 (test code = 704-7) 0.03 10*3/uL 0.01-0.09 [facility] with Ppinxvddtkvj1974-62-66 02:32:00* Test Item Value Reference Range Interpretation Comme nts WBC (test code = 6690-2) See_Comment [Automated messa ge] The system which generated this result transmitted reference range: 4.20 - 10.70 10*3/?L. The reference range was not used to interpret this result as normal/abnormal. RBC (test code = 789-8) See_Comment [Automated messa ge] The system which generated this result transmitted reference range: 4.26 - 5.52 10*6/?L. The reference range was not used to interpret this result as normal/abnormal. HGB (test code = 718-7) 15.0 g/dL 12.2-16.4 HCT (test code = 4544-3) 46.6 % 38.4-49.3 MCV (test code = 787-2) 90.3 fL 81.7-95.6 MCH (test code = 785-6) 29.1 pg 26.1-32.7 MCHC (test code = 786-4) 32.2 g/dL 31.2-35 RDW-SD (test code = 20869-4) 40.4 fL 38.5-51.6 RDW-CV (test code = 788-0) 12.2 % 12.1-15.4 PLT (test code = 777-3) See_Comment [Automated messa ge] The system which generated this result transmitted reference range: 150 - 328 10*3/?L. The reference range was not used to interpret this result as normal/abnormal. MPV (test code = 34618-6) 12.7 fL 9.8-13 NRBC/100 WBC (test code = 8161780339) See_Comment [Automated me ssage] The system which generated this result transmitted reference range: 0.0 - 10.0 /100 WBCs. The reference range was not used to interpret this result as normal/abnormal. NRBC x10^3 (test code = 3364555987) <0.01 See_Comment [Automated me ssage] The system which generated this result transmitted reference range: 10*3/?L. The reference range was not used to interpret this result as normal/abnormal. GRAN MAT (NEUT) % (test code = 770-8) 55.4 % IMM GRAN % (test code = 2407391410) 0.60 % LYMPH % (test code = 736-9) 33.8 % MONO % (test code = 5905-5) 7.2 % EOS % (test code = 713-8) 2.5 % BASO % (test code = 706-2) 0.5 % GRAN MAT x10^3(ANC) (test code = 9126356764) 3.56 10*3/uL 1.99-6.95 IMM GRAN x10^3 (test code = 5333619673) 0.04 10*3/uL 0-0.06 LYMPH x10^3 (test code = 731-0) 2.17 10*3/uL 1.09-3.23 MONO x10^3 (test code = 742-7) 0.46 10*3/uL 0.36-1.02 EOS x10^3 (test code = 711-2) 0.16 10*3/uL 0.06-0.53 BASO x10^3 (test code = 704-7) 0.03 10*3/uL 0.01-0.09 [facility] with Bzzdlyncejwh3480-69-49 02:32:00* Test Item Value Reference Range Interpretation Comme nts WBC (test code = 6690-2) See_Comment [Automated messa ge] The system which generated this result transmitted reference range: 4.20 - 10.70 10*3/?L. The reference range was not used to interpret this result as normal/abnormal. RBC (test code = 789-8) See_Comment [Automated [employer]] The system which generated this result transmitted reference range: 4.26 - 5.52 10*6/?L. The reference range was not used to interpret this result as normal/abnormal. HGB (test code = 718-7) 15.0 g/dL 12.2-16.4 HCT (test code = 4544-3) 46.6 % 38.4-49.3 MCV (test code = 787-2) 90.3 fL 81.7-95.6 MCH (test code = 785-6) 29.1 pg 26.1-32.7 MCHC (test code = 786-4) 32.2 g/dL 31.2-35 RDW-SD (test code = 88900-6) 40.4 fL 38.5-51.6 RDW-CV (test code = 788-0) 12.2 % 12.1-15.4 PLT (test code = 777-3) See_Comment [[employer]ated [employer]] The system which generated this result transmitted reference range: 150 - 328 10*3/?L. The reference range was not used to interpret this result as normal/abnormal. MPV (test code = 21822-2) 12.7 fL 9.8-13 NRBC/100 WBC (test code = 9756837299) See_Comment [Automated [employer]] The system which generated this result transmitted reference range: 0.0 - 10.0 /100 WBCs. The reference range was not used to interpret this result as normal/abnormal. NRBC x10^3 (test code = 6002458860) <0.01 See_Comment [Automated me ssage] The system which generated this result transmitted reference range: 10*3/?L. The reference range was not used to interpret this result as normal/abnormal. GRAN MAT (NEUT) % (test code = 770-8) 55.4 % IMM GRAN % (test code = 3502035946) 0.60 % LYMPH % (test code = 736-9) 33.8 % MONO % (test code = 5905-5) 7.2 % EOS % (test code = 713-8) 2.5 % BASO % (test code = 706-2) 0.5 % GRAN MAT x10^3(ANC) (test code = 5214133926) 3.56 10*3/uL 1.99-6.95 IMM GRAN x10^3 (test code = 6836637055) 0.04 10*3/uL 0-0.06 LYMPH x10^3 (test code = 731-0) 2.17 10*3/uL 1.09-3.23 MONO x10^3 (test code = 742-7) 0.46 10*3/uL 0.36-1.02 EOS x10^3 (test code = 711-2) 0.16 10*3/uL 0.06-0.53 BASO x10^3 (test code = 704-7) 0.03 10*3/uL 0.01-0.09 [facility] with [id number] 02:32:00* Test Item Value Reference Range Interpretation Comme nts WBC (test code = 6690-2) See_Comment [Automated [employer]] The system which generated this result transmitted reference range: 4.20 - 10.70 10*3/?L. The reference range was not used to interpret this result as normal/abnormal. RBC (test code = 789-8) See_Comment [Automated [employer]] The system which generated this result transmitted reference range: 4.26 - 5.52 10*6/?L. The reference range was not used to interpret this result as normal/abnormal. HGB (test code = 718-7) 15.0 g/dL 12.2-16.4 HCT (test code = 4544-3) 46.6 % 38.4-49.3 MCV (test code = 787-2) 90.3 fL 81.7-95.6 MCH (test code = 785-6) 29.1 pg 26.1-32.7 MCHC (test code = 786-4) 32.2 g/dL 31.2-35 RDW-SD (test code = 79588-7) 40.4 fL 38.5-51.6 RDW-CV (test code = 788-0) 12.2 % 12.1-15.4 PLT (test code = 777-3) See_Comment [Automated messa ge] The system which generated this result transmitted reference range: 150 - 328 10*3/?L. The reference range was not used to interpret this result as normal/abnormal. MPV (test code = 85422-4) 12.7 fL 9.8-13 NRBC/100 WBC (test code = 2412449742) See_Comment [Automated me ssage] The system which generated this result transmitted reference range: 0.0 - 10.0 /100 WBCs. The reference range was not used to interpret this result as normal/abnormal. NRBC x10^3 (test code = 9995657297) <0.01 See_Comment [Automated me ssage] The system which generated this result transmitted reference range: 10*3/?L. The reference range was not used to interpret this result as normal/abnormal. GRAN MAT (NEUT) % (test code = 770-8) 55.4 % IMM GRAN % (test code = 1935574934) 0.60 % LYMPH % (test code = 736-9) 33.8 % MONO % (test code = 5905-5) 7.2 % EOS % (test code = 713-8) 2.5 % BASO % (test code = 706-2) 0.5 % GRAN MAT x10^3(ANC) (test code = 2318080106) 3.56 10*3/uL 1.99-6.95 IMM GRAN x10^3 (test code = 7041979688) 0.04 10*3/uL 0-0.06 LYMPH x10^3 (test code = 731-0) 2.17 10*3/uL 1.09-3.23 MONO x10^3 (test code = 742-7) 0.46 10*3/uL 0.36-1.02 EOS x10^3 (test code = 711-2) 0.16 10*3/uL 0.06-0.53 BASO x10^3 (test code = 704-7) 0.03 10*3/uL 0.01-0.09 [facility] with Shnkvtnfzinv7524-28-82 02:32:00* Test Item Value Reference Range Interpretation Comme nts WBC (test code = 6690-2) See_Comment [Automated [employer]] The system which generated this result transmitted reference range: 4.20 - 10.70 10*3/?L. The reference range was not used to interpret this result as normal/abnormal. RBC (test code = 789-8) See_Comment [Automated [employer]] The system which generated this result transmitted reference range: 4.26 - 5.52 10*6/?L. The reference range was not used to interpret this result as normal/abnormal. HGB (test code = 718-7) 15.0 g/dL 12.2-16.4 HCT (test code = 4544-3) 46.6 % 38.4-49.3 MCV (test code = 787-2) 90.3 fL 81.7-95.6 MCH (test code = 785-6) 29.1 pg 26.1-32.7 MCHC (test code = 786-4) 32.2 g/dL 31.2-35 RDW-SD (test code = 76743-0) 40.4 fL 38.5-51.6 RDW-CV (test code = 788-0) 12.2 % 12.1-15.4 PLT (test code = 777-3) See_Comment [Automated [employer]] The system which generated this result transmitted reference range: 150 - 328 10*3/?L. The reference range was not used to interpret this result as normal/abnormal. MPV (test code = 27437-0) 12.7 fL 9.8-13 NRBC/100 WBC (test code = 4592088681) See_Comment [Automated [employer] ssage] The system which generated this result transmitted reference range: 0.0 - 10.0 /100 WBCs. The reference range was not used to interpret this result as normal/abnormal. NRBC x10^3 (test code = 5014221236) <0.01 See_Comment [Automated me ssage] The system which generated this result transmitted reference range: 10*3/?L. The reference range was not used to interpret this result as normal/abnormal. GRAN MAT (NEUT) % (test code = 770-8) 55.4 % IMM GRAN % (test code = 2791074766) 0.60 % LYMPH % (test code = 736-9) 33.8 % MONO % (test code = 5905-5) 7.2 % EOS % (test code = 713-8) 2.5 % BASO % (test code = 706-2) 0.5 % GRAN MAT x10^3(ANC) (test code = 6344596839) 3.56 10*3/uL 1.99-6.95 IMM GRAN x10^3 (test code = 9829875168) 0.04 10*3/uL 0-0.06 LYMPH x10^3 (test code = 731-0) 2.17 10*3/uL 1.09-3.23 MONO x10^3 (test code = 742-7) 0.46 10*3/uL 0.36-1.02 EOS x10^3 (test code = 711-2) 0.16 10*3/uL 0.06-0.53 BASO x10^3 (test code = 704-7) 0.03 10*3/uL 0.01-0.09 [facility] with Vqturragnwre4256-28-06 02:32:00* Test Item Value Reference Range Interpretation Comme nts WBC (test code = 6690-2) See_Comment [Automated [employer]] The system which generated this result transmitted reference range: 4.20 - 10.70 10*3/?L. The reference range was not used to interpret this result as normal/abnormal. RBC (test code = 789-8) See_Comment [Automated [employer]] The system which generated this result transmitted reference range: 4.26 - 5.52 10*6/?L. The reference range was not used to interpret this result as normal/abnormal. HGB (test code = 718-7) 15.0 g/dL 12.2-16.4 HCT (test code = 4544-3) 46.6 % 38.4-49.3 MCV (test code = 787-2) 90.3 fL 81.7-95.6 MCH (test code = 785-6) 29.1 pg 26.1-32.7 MCHC (test code = 786-4) 32.2 g/dL 31.2-35 RDW-SD (test code = 04377-5) 40.4 fL 38.5-51.6 RDW-CV (test code = 788-0) 12.2 % 12.1-15.4 PLT (test code = 777-3) See_Comment [Automated messa ge] The system which generated this result transmitted reference range: 150 - 328 10*3/?L. The reference range was not used to interpret this result as normal/abnormal. MPV (test code = 31502-8) 12.7 fL 9.8-13 NRBC/100 WBC (test code = 1793320810) See_Comment [Automated me ssage] The system which generated this result transmitted reference range: 0.0 - 10.0 /100 WBCs. The reference range was not used to interpret this result as normal/abnormal. NRBC x10^3 (test code = 1848810107) <0.01 See_Comment [Automated me ssage] The system which generated this result transmitted reference range: 10*3/?L. The reference range was not used to interpret this result as normal/abnormal. GRAN MAT (NEUT) % (test code = 770-8) 55.4 % IMM GRAN % (test code = 6018908386) 0.60 % LYMPH % (test code = 736-9) 33.8 % MONO % (test code = 5905-5) 7.2 % EOS % (test code = 713-8) 2.5 % BASO % (test code = 706-2) 0.5 % GRAN MAT x10^3(ANC) (test code = 3668939184) 3.56 10*3/uL 1.99-6.95 IMM GRAN x10^3 (test code = 5495805985) 0.04 10*3/uL 0-0.06 LYMPH x10^3 (test code = 731-0) 2.17 10*3/uL 1.09-3.23 MONO x10^3 (test code = 742-7) 0.46 10*3/uL 0.36-1.02 EOS x10^3 (test code = 711-2) 0.16 10*3/uL 0.06-0.53 BASO x10^3 (test code = 704-7) 0.03 10*3/uL 0.01-0.09 [facility] with Rgxcrnhorwmd0585-16-96 02:32:00* Test Item Value Reference Range Interpretation Comme nts WBC (test code = 6690-2) See_Comment [Automated messa ge] The system which generated this result transmitted reference range: 4.20 - 10.70 10*3/?L. The reference range was not used to interpret this result as normal/abnormal. RBC (test code = 789-8) See_Comment [Automated messa ge] The system which generated this result transmitted reference range: 4.26 - 5.52 10*6/?L. The reference range was not used to interpret this result as normal/abnormal. HGB (test code = 718-7) 15.0 g/dL 12.2-16.4 HCT (test code = 4544-3) 46.6 % 38.4-49.3 MCV (test code = 787-2) 90.3 fL 81.7-95.6 MCH (test code = 785-6) 29.1 pg 26.1-32.7 MCHC (test code = 786-4) 32.2 g/dL 31.2-35 RDW-SD (test code = 12301-1) 40.4 fL 38.5-51.6 RDW-CV (test code = 788-0) 12.2 % 12.1-15.4 PLT (test code = 777-3) See_Comment [Automated messa ge] The system which generated this result transmitted reference range: 150 - 328 10*3/?L. The reference range was not used to interpret this result as normal/abnormal. MPV (test code = 75771-1) 12.7 fL 9.8-13 NRBC/100 WBC (test code = 9368044379) See_Comment [Automated me ssage] The system which generated this result transmitted reference range: 0.0 - 10.0 /100 WBCs. The reference range was not used to interpret this result as normal/abnormal. NRBC x10^3 (test code = 3588034605) <0.01 See_Comment [Automated me ssage] The system which generated this result transmitted reference range: 10*3/?L. The reference range was not used to interpret this result as normal/abnormal. GRAN MAT (NEUT) % (test code = 770-8) 55.4 % IMM GRAN % (test code = 3462081175) 0.60 % LYMPH % (test code = 736-9) 33.8 % MONO % (test code = 5905-5) 7.2 % EOS % (test code = 713-8) 2.5 % BASO % (test code = 706-2) 0.5 % GRAN MAT x10^3(ANC) (test code = 1897136759) 3.56 10*3/uL 1.99-6.95 IMM GRAN x10^3 (test code = 7436685872) 0.04 10*3/uL 0-0.06 LYMPH x10^3 (test code = 731-0) 2.17 10*3/uL 1.09-3.23 MONO x10^3 (test code = 742-7) 0.46 10*3/uL 0.36-1.02 EOS x10^3 (test code = 711-2) 0.16 10*3/uL 0.06-0.53 BASO x10^3 (test code = 704-7) 0.03 10*3/uL 0.01-0.09 [facility] with Ruxvytyoliwq2660-34-09 02:32:00* Test Item Value Reference Range Interpretation Comme nts WBC (test code = 6690-2) See_Comment [Automated [employer]] The system which generated this result transmitted reference range: 4.20 - 10.70 10*3/?L. The reference range was not used to interpret this result as normal/abnormal. RBC (test code = 789-8) See_Comment [Automated [employer]] The system which generated this result transmitted reference range: 4.26 - 5.52 10*6/?L. The reference range was not used to interpret this result as normal/abnormal. HGB (test code = 718-7) 15.0 g/dL 12.2-16.4 HCT (test code = 4544-3) 46.6 % 38.4-49.3 MCV (test code = 787-2) 90.3 fL 81.7-95.6 MCH (test code = 785-6) 29.1 pg 26.1-32.7 MCHC (test code = 786-4) 32.2 g/dL 31.2-35 RDW-SD (test code = 09972-0) 40.4 fL 38.5-51.6 RDW-CV (test code = 788-0) 12.2 % 12.1-15.4 PLT (test code = 777-3) See_Comment [Automated messa ge] The system which generated this result transmitted reference range: 150 - 328 10*3/?L. The reference range was not used to interpret this result as normal/abnormal. MPV (test code = 95744-4) 12.7 fL 9.8-13 NRBC/100 WBC (test code = 1942929820) See_Comment [Automated me ssage] The system which generated this result transmitted reference range: 0.0 - 10.0 /100 WBCs. The reference range was not used to interpret this result as normal/abnormal. NRBC x10^3 (test code = 9700226809) <0.01 See_Comment [Automated me ssage] The system which generated this result transmitted reference range: 10*3/?L. The reference range was not used to interpret this result as normal/abnormal. GRAN MAT (NEUT) % (test code = 770-8) 55.4 % IMM GRAN % (test code = 8557360973) 0.60 % LYMPH % (test code = 736-9) 33.8 % MONO % (test code = 5905-5) 7.2 % EOS % (test code = 713-8) 2.5 % BASO % (test code = 706-2) 0.5 % GRAN MAT x10^3(ANC) (test code = 3288073366) 3.56 10*3/uL 1.99-6.95 IMM GRAN x10^3 (test code = 5544290713) 0.04 10*3/uL 0-0.06 LYMPH x10^3 (test code = 731-0) 2.17 10*3/uL 1.09-3.23 MONO x10^3 (test code = 742-7) 0.46 10*3/uL 0.36-1.02 EOS x10^3 (test code = 711-2) 0.16 10*3/uL 0.06-0.53 BASO x10^3 (test code = 704-7) 0.03 10*3/uL 0.01-0.09 [facility] with Fcsrxwdfufcu0156-91-57 02:32:00* Test Item Value Reference Range Interpretation Comme nts WBC (test code = 6690-2) See_Comment [Automated messa ge] The system which generated this result transmitted reference range: 4.20 - 10.70 10*3/?L. The reference range was not used to interpret this result as normal/abnormal. RBC (test code = 789-8) See_Comment [Automated messa ge] The system which generated this result transmitted reference range: 4.26 - 5.52 10*6/?L. The reference range was not used to interpret this result as normal/abnormal. HGB (test code = 718-7) 15.0 g/dL 12.2-16.4 HCT (test code = 4544-3) 46.6 % 38.4-49.3 MCV (test code = 787-2) 90.3 fL 81.7-95.6 MCH (test code = 785-6) 29.1 pg 26.1-32.7 MCHC (test code = 786-4) 32.2 g/dL 31.2-35 RDW-SD (test code = 83248-7) 40.4 fL 38.5-51.6 RDW-CV (test code = 788-0) 12.2 % 12.1-15.4 PLT (test code = 777-3) See_Comment [Automated messa ge] The system which generated this result transmitted reference range: 150 - 328 10*3/?L. The reference range was not used to interpret this result as normal/abnormal. MPV (test code = 41180-2) 12.7 fL 9.8-13 NRBC/100 WBC (test code = 6211824418) See_Comment [Automated me ssage] The system which generated this result transmitted reference range: 0.0 - 10.0 /100 WBCs. The reference range was not used to interpret this result as normal/abnormal. NRBC x10^3 (test code = 4985437359) <0.01 See_Comment [Automated me ssage] The system which generated this result transmitted reference range: 10*3/?L. The reference range was not used to interpret this result as normal/abnormal. GRAN MAT (NEUT) % (test code = 770-8) 55.4 % IMM GRAN % (test code = 9941035596) 0.60 % LYMPH % (test code = 736-9) 33.8 % MONO % (test code = 5905-5) 7.2 % EOS % (test code = 713-8) 2.5 % BASO % (test code = 706-2) 0.5 % GRAN MAT x10^3(ANC) (test code = 5973090654) 3.56 10*3/uL 1.99-6.95 IMM GRAN x10^3 (test code = 9251959092) 0.04 10*3/uL 0-0.06 LYMPH x10^3 (test code = 731-0) 2.17 10*3/uL 1.09-3.23 MONO x10^3 (test code = 742-7) 0.46 10*3/uL 0.36-1.02 EOS x10^3 (test code = 711-2) 0.16 10*3/uL 0.06-0.53 BASO x10^3 (test code = 704-7) 0.03 10*3/uL 0.01-0.09 [facility] with Vrnogbdwvibb7341-09-20 02:32:00* Test Item Value Reference Range Interpretation Comme nts WBC (test code = 6690-2) See_Comment [Automated messa ge] The system which generated this result transmitted reference range: 4.20 - 10.70 10*3/?L. The reference range was not used to interpret this result as normal/abnormal. RBC (test code = 789-8) See_Comment [Automated messa ge] The system which generated this result transmitted reference range: 4.26 - 5.52 10*6/?L. The reference range was not used to interpret this result as normal/abnormal. HGB (test code = 718-7) 15.0 g/dL 12.2-16.4 HCT (test code = 4544-3) 46.6 % 38.4-49.3 MCV (test code = 787-2) 90.3 fL 81.7-95.6 MCH (test code = 785-6) 29.1 pg 26.1-32.7 MCHC (test code = 786-4) 32.2 g/dL 31.2-35 RDW-SD (test code = 28138-9) 40.4 fL 38.5-51.6 RDW-CV (test code = 788-0) 12.2 % 12.1-15.4 PLT (test code = 777-3) See_Comment [Automated messa ge] The system which generated this result transmitted reference range: 150 - 328 10*3/?L. The reference range was not used to interpret this result as normal/abnormal. MPV (test code = 25725-0) 12.7 fL 9.8-13 NRBC/100 WBC (test code = 2990258501) See_Comment [Automated me ssage] The system which generated this result transmitted reference range: 0.0 - 10.0 /100 WBCs. The reference range was not used to interpret this result as normal/abnormal. NRBC x10^3 (test code = 9515286042) <0.01 See_Comment [Automated me ssage] The system which generated this result transmitted reference range: 10*3/?L. The reference range was not used to interpret this result as normal/abnormal. GRAN MAT (NEUT) % (test code = 770-8) 55.4 % IMM GRAN % (test code = 9603024436) 0.60 % LYMPH % (test code = 736-9) 33.8 % MONO % (test code = 5905-5) 7.2 % EOS % (test code = 713-8) 2.5 % BASO % (test code = 706-2) 0.5 % GRAN MAT x10^3(ANC) (test code = 1710716129) 3.56 10*3/uL 1.99-6.95 IMM GRAN x10^3 (test code = 9958489906) 0.04 10*3/uL 0-0.06 LYMPH x10^3 (test code = 731-0) 2.17 10*3/uL 1.09-3.23 MONO x10^3 (test code = 742-7) 0.46 10*3/uL 0.36-1.02 EOS x10^3 (test code = 711-2) 0.16 10*3/uL 0.06-0.53 BASO x10^3 (test code = 704-7) 0.03 10*3/uL 0.01-0.09 [facility] with Acoxvvteixhv8299-09-45 02:32:00* Test Item Value Reference Range Interpretation Comme nts WBC (test code = 6690-2) See_Comment [Automated [employer]] The system which generated this result transmitted reference range: 4.20 - 10.70 10*3/?L. The reference range was not used to interpret this result as normal/abnormal. RBC (test code = 789-8) See_Comment [Automated [employer]] The system which generated this result transmitted reference range: 4.26 - 5.52 10*6/?L. The reference range was not used to interpret this result as normal/abnormal. HGB (test code = 718-7) 15.0 g/dL 12.2-16.4 HCT (test code = 4544-3) 46.6 % 38.4-49.3 MCV (test code = 787-2) 90.3 fL 81.7-95.6 MCH (test code = 785-6) 29.1 pg 26.1-32.7 MCHC (test code = 786-4) 32.2 g/dL 31.2-35 RDW-SD (test code = 99366-6) 40.4 fL 38.5-51.6 RDW-CV (test code = 788-0) 12.2 % 12.1-15.4 PLT (test code = 777-3) See_Comment [Automated [employer]] The system which generated this result transmitted reference range: 150 - 328 10*3/?L. The reference range was not used to interpret this result as normal/abnormal. MPV (test code = 71707-6) 12.7 fL 9.8-13 NRBC/100 WBC (test code = 1687005093) See_Comment [Automated [employer] ssage] The system which generated this result transmitted reference range: 0.0 - 10.0 /100 WBCs. The reference range was not used to interpret this result as normal/abnormal. NRBC x10^3 (test code = 7163780986) <0.01 See_Comment [Automated me ssage] The system which generated this result transmitted reference range: 10*3/?L. The reference range was not used to interpret this result as normal/abnormal. GRAN MAT (NEUT) % (test code = 770-8) 55.4 % IMM GRAN % (test code = 4086336827) 0.60 % LYMPH % (test code = 736-9) 33.8 % MONO % (test code = 5905-5) 7.2 % EOS % (test code = 713-8) 2.5 % BASO % (test code = 706-2) 0.5 % GRAN MAT x10^3(ANC) (test code = 5880337478) 3.56 10*3/uL 1.99-6.95 IMM GRAN x10^3 (test code = 5695553649) 0.04 10*3/uL 0-0.06 LYMPH x10^3 (test code = 731-0) 2.17 10*3/uL 1.09-3.23 MONO x10^3 (test code = 742-7) 0.46 10*3/uL 0.36-1.02 EOS x10^3 (test code = 711-2) 0.16 10*3/uL 0.06-0.53 BASO x10^3 (test code = 704-7) 0.03 10*3/uL 0.01-0.09 [facility] with Ppjkiqiuzypl9395-45-81 02:32:00* Test Item Value Reference Range Interpretation Comme nts WBC (test code = 6690-2) See_Comment [Automated messa ge] The system which generated this result transmitted reference range: 4.20 - 10.70 10*3/?L. The reference range was not used to interpret this result as normal/abnormal. RBC (test code = 789-8) See_Comment [Automated messa ge] The system which generated this result transmitted reference range: 4.26 - 5.52 10*6/?L. The reference range was not used to interpret this result as normal/abnormal. HGB (test code = 718-7) 15.0 g/dL 12.2-16.4 HCT (test code = 4544-3) 46.6 % 38.4-49.3 MCV (test code = 787-2) 90.3 fL 81.7-95.6 MCH (test code = 785-6) 29.1 pg 26.1-32.7 MCHC (test code = 786-4) 32.2 g/dL 31.2-35 RDW-SD (test code = 00974-1) 40.4 fL 38.5-51.6 RDW-CV (test code = 788-0) 12.2 % 12.1-15.4 PLT (test code = 777-3) See_Comment [Automated messa ge] The system which generated this result transmitted reference range: 150 - 328 10*3/?L. The reference range was not used to interpret this result as normal/abnormal. MPV (test code = 25784-7) 12.7 fL 9.8-13 NRBC/100 WBC (test code = 9391065185) See_Comment [Automated me ssage] The system which generated this result transmitted reference range: 0.0 - 10.0 /100 WBCs. The reference range was not used to interpret this result as normal/abnormal. NRBC x10^3 (test code = 8126032059) <0.01 See_Comment [Automated me ssage] The system which generated this result transmitted reference range: 10*3/?L. The reference range was not used to interpret this result as normal/abnormal. GRAN MAT (NEUT) % (test code = 770-8) 55.4 % IMM GRAN % (test code = 5861388635) 0.60 % LYMPH % (test code = 736-9) 33.8 % MONO % (test code = 5905-5) 7.2 % EOS % (test code = 713-8) 2.5 % BASO % (test code = 706-2) 0.5 % GRAN MAT x10^3(ANC) (test code = 5123171605) 3.56 10*3/uL 1.99-6.95 IMM GRAN x10^3 (test code = 5896791619) 0.04 10*3/uL 0-0.06 LYMPH x10^3 (test code = 731-0) 2.17 10*3/uL 1.09-3.23 MONO x10^3 (test code = 742-7) 0.46 10*3/uL 0.36-1.02 EOS x10^3 (test code = 711-2) 0.16 10*3/uL 0.06-0.53 BASO x10^3 (test code = 704-7) 0.03 10*3/uL 0.01-0.09 [facility] with Trqtzncdrbqa3665-81-86 02:32:00* Test Item Value Reference Range Interpretation Comme nts WBC (test code = 6690-2) See_Comment [Automated messa ge] The system which generated this result transmitted reference range: 4.20 - 10.70 10*3/?L. The reference range was not used to interpret this result as normal/abnormal. RBC (test code = 789-8) See_Comment [Automated messa ge] The system which generated this result transmitted reference range: 4.26 - 5.52 10*6/?L. The reference range was not used to interpret this result as normal/abnormal. HGB (test code = 718-7) 15.0 g/dL 12.2-16.4 HCT (test code = 4544-3) 46.6 % 38.4-49.3 MCV (test code = 787-2) 90.3 fL 81.7-95.6 MCH (test code = 785-6) 29.1 pg 26.1-32.7 MCHC (test code = 786-4) 32.2 g/dL 31.2-35 RDW-SD (test code = 88225-3) 40.4 fL 38.5-51.6 RDW-CV (test code = 788-0) 12.2 % 12.1-15.4 PLT (test code = 777-3) See_Comment [Automated messa ge] The system which generated this result transmitted reference range: 150 - 328 10*3/?L. The reference range was not used to interpret this result as normal/abnormal. MPV (test code = 72011-2) 12.7 fL 9.8-13 NRBC/100 WBC (test code = 8189187542) See_Comment [Automated me ssage] The system which generated this result transmitted reference range: 0.0 - 10.0 /100 WBCs. The reference range was not used to interpret this result as normal/abnormal. NRBC x10^3 (test code = 7614408177) <0.01 See_Comment [Automated me ssage] The system which generated this result transmitted reference range: 10*3/?L. The reference range was not used to interpret this result as normal/abnormal. GRAN MAT (NEUT) % (test code = 770-8) 55.4 % IMM GRAN % (test code = 0489830205) 0.60 % LYMPH % (test code = 736-9) 33.8 % MONO % (test code = 5905-5) 7.2 % EOS % (test code = 713-8) 2.5 % BASO % (test code = 706-2) 0.5 % GRAN MAT x10^3(ANC) (test code = 7431222520) 3.56 10*3/uL 1.99-6.95 IMM GRAN x10^3 (test code = 9150368107) 0.04 10*3/uL 0-0.06 LYMPH x10^3 (test code = 731-0) 2.17 10*3/uL 1.09-3.23 MONO x10^3 (test code = 742-7) 0.46 10*3/uL 0.36-1.02 EOS x10^3 (test code = 711-2) 0.16 10*3/uL 0.06-0.53 BASO x10^3 (test code = 704-7) 0.03 10*3/uL 0.01-0.09 [facility] with Stvzkhkvobtm3847-48-51 02:32:00* Test Item Value Reference Range Interpretation Comme nts WBC (test code = 6690-2) See_Comment [Automated messa ge] The system which generated this result transmitted reference range: 4.20 - 10.70 10*3/?L. The reference range was not used to interpret this result as normal/abnormal. RBC (test code = 789-8) See_Comment [Automated messa ge] The system which generated this result transmitted reference range: 4.26 - 5.52 10*6/?L. The reference range was not used to interpret this result as normal/abnormal. HGB (test code = 718-7) 15.0 g/dL 12.2-16.4 HCT (test code = 4544-3) 46.6 % 38.4-49.3 MCV (test code = 787-2) 90.3 fL 81.7-95.6 MCH (test code = 785-6) 29.1 pg 26.1-32.7 MCHC (test code = 786-4) 32.2 g/dL 31.2-35 RDW-SD (test code = 41418-1) 40.4 fL 38.5-51.6 RDW-CV (test code = 788-0) 12.2 % 12.1-15.4 PLT (test code = 777-3) See_Comment [Automated messa ge] The system which generated this result transmitted reference range: 150 - 328 10*3/?L. The reference range was not used to interpret this result as normal/abnormal. MPV (test code = 83590-5) 12.7 fL 9.8-13 NRBC/100 WBC (test code = 3641040930) See_Comment [Automated me ssage] The system which generated this result transmitted reference range: 0.0 - 10.0 /100 WBCs. The reference range was not used to interpret this result as normal/abnormal. NRBC x10^3 (test code = [id number]) <0.01 See_Comment [Automated me ssage] The system which generated this result transmitted reference range: 10*3/?L. The reference range was not used to interpret this result as normal/abnormal. GRAN MAT (NEUT) % (test code = 770-8) 55.4 % IMM GRAN % (test code = [id number]) 0.60 % LYMPH % (test code = 736-9) 33.8 % MONO % (test code = 5905-5) 7.2 % EOS % (test code = 713-8) 2.5 % BASO % (test code = 706-2) 0.5 % GRAN MAT x10^3(ANC) (test code = 8961227304) 3.56 10*3/uL 1.99-6.95 IMM GRAN x10^3 (test code = 0205811686) 0.04 10*3/uL 0-0.06 LYMPH x10^3 (test code = 731-0) 2.17 10*3/uL 1.09-3.23 MONO x10^3 (test code = 742-7) 0.46 10*3/uL 0.36-1.02 EOS x10^3 (test code = 711-2) 0.16 10*3/uL 0.06-0.53 BASO x10^3 (test code = 704-7) 0.03 10*3/uL 0.01-0.09 [facility] with [id number] 02:32:00* Test Item Value Reference Range Interpretation Comme nts WBC (test code = 6690-2) See_Comment [Automated [employer]] The system which generated this result transmitted reference range: 4.20 - 10.70 10*3/?L. The reference range was not used to interpret this result as normal/abnormal. RBC (test code = 789-8) See_Comment [Automated [employer]] The system which generated this result transmitted reference range: 4.26 - 5.52 10*6/?L. The reference range was not used to interpret this result as normal/abnormal. HGB (test code = 718-7) 15.0 g/dL 12.2-16.4 HCT (test code = 4544-3) 46.6 % 38.4-49.3 MCV (test code = 787-2) 90.3 fL 81.7-95.6 MCH (test code = 785-6) 29.1 pg 26.1-32.7 MCHC (test code = 786-4) 32.2 g/dL 31.2-35 RDW-SD (test code = 25561-5) 40.4 fL 38.5-51.6 RDW-CV (test code = 788-0) 12.2 % 12.1-15.4 PLT (test code = 777-3) See_Comment [Automated [employer]] The system which generated this result transmitted reference range: 150 - 328 10*3/?L. The reference range was not used to interpret this result as normal/abnormal. MPV (test code = 10492-0) 12.7 fL 9.8-13 NRBC/100 WBC (test code = 7181171155) See_Comment [Automated me ssage] The system which generated this result transmitted reference range: 0.0 - 10.0 /100 WBCs. The reference range was not used to interpret this result as normal/abnormal. NRBC x10^3 (test code = 9426920561) <0.01 See_Comment [Automated me ssage] The system which generated this result transmitted reference range: 10*3/?L. The reference range was not used to interpret this result as normal/abnormal. GRAN MAT (NEUT) % (test code = 770-8) 55.4 % IMM GRAN % (test code = 9535687579) 0.60 % LYMPH % (test code = 736-9) 33.8 % MONO % (test code = 5905-5) 7.2 % EOS % (test code = 713-8) 2.5 % BASO % (test code = 706-2) 0.5 % GRAN MAT x10^3(ANC) (test code = 3768230074) 3.56 10*3/uL 1.99-6.95 IMM GRAN x10^3 (test code = 6946272021) 0.04 10*3/uL 0-0.06 LYMPH x10^3 (test code = 731-0) 2.17 10*3/uL 1.09-3.23 MONO x10^3 (test code = 742-7) 0.46 10*3/uL 0.36-1.02 EOS x10^3 (test code = 711-2) 0.16 10*3/uL 0.06-0.53 BASO x10^3 (test code = 704-7) 0.03 10*3/uL 0.01-0.09 [facility] with Ypqsdopgxolk5951-01-99 02:32:00* Test Item Value Reference Range Interpretation Comme nts WBC (test code = 6690-2) See_Comment [Automated messa ge] The system which generated this result transmitted reference range: 4.20 - 10.70 10*3/?L. The reference range was not used to interpret this result as normal/abnormal. RBC (test code = 789-8) See_Comment [Automated messa ge] The system which generated this result transmitted reference range: 4.26 - 5.52 10*6/?L. The reference range was not used to interpret this result as normal/abnormal. HGB (test code = 718-7) 15.0 g/dL 12.2-16.4 HCT (test code = 4544-3) 46.6 % 38.4-49.3 MCV (test code = 787-2) 90.3 fL 81.7-95.6 MCH (test code = 785-6) 29.1 pg 26.1-32.7 MCHC (test code = 786-4) 32.2 g/dL 31.2-35 RDW-SD (test code = 54432-9) 40.4 fL 38.5-51.6 RDW-CV (test code = 788-0) 12.2 % 12.1-15.4 PLT (test code = 777-3) See_Comment [Automated messa ge] The system which generated this result transmitted reference range: 150 - 328 10*3/?L. The reference range was not used to interpret this result as normal/abnormal. MPV (test code = 51988-9) 12.7 fL 9.8-13 NRBC/100 WBC (test code = 6356058363) See_Comment [Automated me ssage] The system which generated this result transmitted reference range: 0.0 - 10.0 /100 WBCs. The reference range was not used to interpret this result as normal/abnormal. NRBC x10^3 (test code = 8316344469) <0.01 See_Comment [Automated me ssage] The system which generated this result transmitted reference range: 10*3/?L. The reference range was not used to interpret this result as normal/abnormal. GRAN MAT (NEUT) % (test code = 770-8) 55.4 % IMM GRAN % (test code = 2259024985) 0.60 % LYMPH % (test code = 736-9) 33.8 % MONO % (test code = 5905-5) 7.2 % EOS % (test code = 713-8) 2.5 % BASO % (test code = 706-2) 0.5 % GRAN MAT x10^3(ANC) (test code = 3213756210) 3.56 10*3/uL 1.99-6.95 IMM GRAN x10^3 (test code = 3321850509) 0.04 10*3/uL 0-0.06 LYMPH x10^3 (test code = 731-0) 2.17 10*3/uL 1.09-3.23 MONO x10^3 (test code = 742-7) 0.46 10*3/uL 0.36-1.02 EOS x10^3 (test code = 711-2) 0.16 10*3/uL 0.06-0.53 BASO x10^3 (test code = 704-7) 0.03 10*3/uL 0.01-0.09 [facility] with Vpljhcuvlmix2804-22-45 02:32:00* Test Item Value Reference Range Interpretation Comme nts WBC (test code = 6690-2) See_Comment [Automated messa ge] The system which generated this result transmitted reference range: 4.20 - 10.70 10*3/?L. The reference range was not used to interpret this result as normal/abnormal. RBC (test code = 789-8) See_Comment [Automated messa ge] The system which generated this result transmitted reference range: 4.26 - 5.52 10*6/?L. The reference range was not used to interpret this result as normal/abnormal. HGB (test code = 718-7) 15.0 g/dL 12.2-16.4 HCT (test code = 4544-3) 46.6 % 38.4-49.3 MCV (test code = 787-2) 90.3 fL 81.7-95.6 MCH (test code = 785-6) 29.1 pg 26.1-32.7 MCHC (test code = 786-4) 32.2 g/dL 31.2-35 RDW-SD (test code = 44156-4) 40.4 fL 38.5-51.6 RDW-CV (test code = 788-0) 12.2 % 12.1-15.4 PLT (test code = 777-3) See_Comment [Automated messa ge] The system which generated this result transmitted reference range: 150 - 328 10*3/?L. The reference range was not used to interpret this result as normal/abnormal. MPV (test code = 97011-4) 12.7 fL 9.8-13 NRBC/100 WBC (test code = 1435590380) See_Comment [Automated me ssage] The system which generated this result transmitted reference range: 0.0 - 10.0 /100 WBCs. The reference range was not used to interpret this result as normal/abnormal. NRBC x10^3 (test code = 1042050852) <0.01 See_Comment [Automated me ssage] The system which generated this result transmitted reference range: 10*3/?L. The reference range was not used to interpret this result as normal/abnormal. GRAN MAT (NEUT) % (test code = 770-8) 55.4 % IMM GRAN % (test code = 1463870212) 0.60 % LYMPH % (test code = 736-9) 33.8 % MONO % (test code = 5905-5) 7.2 % EOS % (test code = 713-8) 2.5 % BASO % (test code = 706-2) 0.5 % GRAN MAT x10^3(ANC) (test code = 0481983380) 3.56 10*3/uL 1.99-6.95 IMM GRAN x10^3 (test code = 8518659205) 0.04 10*3/uL 0-0.06 LYMPH x10^3 (test code = 731-0) 2.17 10*3/uL 1.09-3.23 MONO x10^3 (test code = 742-7) 0.46 10*3/uL 0.36-1.02 EOS x10^3 (test code = 711-2) 0.16 10*3/uL 0.06-0.53 BASO x10^3 (test code = 704-7) 0.03 10*3/uL 0.01-0.09 [facility] with Giipdqbbsycw0617-88-82 02:32:00* Test Item Value Reference Range Interpretation Comme nts WBC (test code = 6690-2) See_Comment [Automated messa ge] The system which generated this result transmitted reference range: 4.20 - 10.70 10*3/?L. The reference range was not used to interpret this result as normal/abnormal. RBC (test code = 789-8) See_Comment [Automated [employer]] The system which generated this result transmitted reference range: 4.26 - 5.52 10*6/?L. The reference range was not used to interpret this result as normal/abnormal. HGB (test code = 718-7) 15.0 g/dL 12.2-16.4 HCT (test code = 4544-3) 46.6 % 38.4-49.3 MCV (test code = 787-2) 90.3 fL 81.7-95.6 MCH (test code = 785-6) 29.1 pg 26.1-32.7 MCHC (test code = 786-4) 32.2 g/dL 31.2-35 RDW-SD (test code = 55036-8) 40.4 fL 38.5-51.6 RDW-CV (test code = 788-0) 12.2 % 12.1-15.4 PLT (test code = 777-3) See_Comment [Automated [employer]] The system which generated this result transmitted reference range: 150 - 328 10*3/?L. The reference range was not used to interpret this result as normal/abnormal. MPV (test code = 64673-8) 12.7 fL 9.8-13 NRBC/100 WBC (test code = 2974746410) See_Comment [Automated [employer]] The system which generated this result transmitted reference range: 0.0 - 10.0 /100 WBCs. The reference range was not used to interpret this result as normal/abnormal. NRBC x10^3 (test code = 8440190795) <0.01 See_Comment [Automated [employer] ss[employer]] The system which generated this result transmitted reference range: 10*3/?L. The reference range was not used to interpret this result as normal/abnormal. GRAN MAT (NEUT) % (test code = 770-8) 55.4 % IMM GRAN % (test code = 7486607860) 0.60 % LYMPH % (test code = 736-9) 33.8 % MONO % (test code = 5905-5) 7.2 % EOS % (test code = 713-8) 2.5 % BASO % (test code = 706-2) 0.5 % GRAN MAT x10^3(ANC) (test code = 8808031608) 3.56 10*3/uL 1.99-6.95 IMM GRAN x10^3 (test code = 5052956575) 0.04 10*3/uL 0-0.06 LYMPH x10^3 (test code = 731-0) 2.17 10*3/uL 1.09-3.23 MONO x10^3 (test code = 742-7) 0.46 10*3/uL 0.36-1.02 EOS x10^3 (test code = 711-2) 0.16 10*3/uL 0.06-0.53 BASO x10^3 (test code = 704-7) 0.03 10*3/uL 0.01-0.09 [facility] with Qnwdncmnoypt0813-84-34 02:32:00* Test Item Value Reference Range Interpretation Comme nts WBC (test code = 6690-2) See_Comment [Automated messa ge] The system which generated this result transmitted reference range: 4.20 - 10.70 10*3/?L. The reference range was not used to interpret this result as normal/abnormal. RBC (test code = 789-8) See_Comment [Automated messa ge] The system which generated this result transmitted reference range: 4.26 - 5.52 10*6/?L. The reference range was not used to interpret this result as normal/abnormal. HGB (test code = 718-7) 15.0 g/dL 12.2-16.4 HCT (test code = 4544-3) 46.6 % 38.4-49.3 MCV (test code = 787-2) 90.3 fL 81.7-95.6 MCH (test code = 785-6) 29.1 pg 26.1-32.7 MCHC (test code = 786-4) 32.2 g/dL 31.2-35 RDW-SD (test code = 89345-9) 40.4 fL 38.5-51.6 RDW-CV (test code = 788-0) 12.2 % 12.1-15.4 PLT (test code = 777-3) See_Comment [Automated messa ge] The system which generated this result transmitted reference range: 150 - 328 10*3/?L. The reference range was not used to interpret this result as normal/abnormal. MPV (test code = 45360-4) 12.7 fL 9.8-13 NRBC/100 WBC (test code = 9211302697) See_Comment [Automated me ssage] The system which generated this result transmitted reference range: 0.0 - 10.0 /100 WBCs. The reference range was not used to interpret this result as normal/abnormal. NRBC x10^3 (test code = 3711996549) <0.01 See_Comment [Automated me ssage] The system which generated this result transmitted reference range: 10*3/?L. The reference range was not used to interpret this result as normal/abnormal. GRAN MAT (NEUT) % (test code = 770-8) 55.4 % IMM GRAN % (test code = 1187634512) 0.60 % LYMPH % (test code = 736-9) 33.8 % MONO % (test code = 5905-5) 7.2 % EOS % (test code = 713-8) 2.5 % BASO % (test code = 706-2) 0.5 % GRAN MAT x10^3(ANC) (test code = 9090504997) 3.56 10*3/uL 1.99-6.95 IMM GRAN x10^3 (test code = 6145384707) 0.04 10*3/uL 0-0.06 LYMPH x10^3 (test code = 731-0) 2.17 10*3/uL 1.09-3.23 MONO x10^3 (test code = 742-7) 0.46 10*3/uL 0.36-1.02 EOS x10^3 (test code = 711-2) 0.16 10*3/uL 0.06-0.53 BASO x10^3 (test code = 704-7) 0.03 10*3/uL 0.01-0.09 [facility] with Yoboifrcftmp9392-90-69 02:32:00* Test Item Value Reference Range Interpretation Comme nts WBC (test code = 6690-2) See_Comment [Automated messa ge] The system which generated this result transmitted reference range: 4.20 - 10.70 10*3/?L. The reference range was not used to interpret this result as normal/abnormal. RBC (test code = 789-8) See_Comment [Automated [employer]] The system which generated this result transmitted reference range: 4.26 - 5.52 10*6/?L. The reference range was not used to interpret this result as normal/abnormal. HGB (test code = 718-7) 15.0 g/dL 12.2-16.4 HCT (test code = 4544-3) 46.6 % 38.4-49.3 MCV (test code = 787-2) 90.3 fL 81.7-95.6 MCH (test code = 785-6) 29.1 pg 26.1-32.7 MCHC (test code = 786-4) 32.2 g/dL 31.2-35 RDW-SD (test code = 65397-4) 40.4 fL 38.5-51.6 RDW-CV (test code = 788-0) 12.2 % 12.1-15.4 PLT (test code = 777-3) See_Comment [Automated [employer]] The system which generated this result transmitted reference range: 150 - 328 10*3/?L. The reference range was not used to interpret this result as normal/abnormal. MPV (test code = 35989-6) 12.7 fL 9.8-13 NRBC/100 WBC (test code = 7186805600) See_Comment [Automated [employer] ssage] The system which generated this result transmitted reference range: 0.0 - 10.0 /100 WBCs. The reference range was not used to interpret this result as normal/abnormal. NRBC x10^3 (test code = 9371793442) <0.01 See_Comment [Automated me ssage] The system which generated this result transmitted reference range: 10*3/?L. The reference range was not used to interpret this result as normal/abnormal. GRAN MAT (NEUT) % (test code = 770-8) 55.4 % IMM GRAN % (test code = 1358815698) 0.60 % LYMPH % (test code = 736-9) 33.8 % MONO % (test code = 5905-5) 7.2 % EOS % (test code = 713-8) 2.5 % BASO % (test code = 706-2) 0.5 % GRAN MAT x10^3(ANC) (test code = 5813343193) 3.56 10*3/uL 1.99-6.95 IMM GRAN x10^3 (test code = 9773476260) 0.04 10*3/uL 0-0.06 LYMPH x10^3 (test code = 731-0) 2.17 10*3/uL 1.09-3.23 MONO x10^3 (test code = 742-7) 0.46 10*3/uL 0.36-1.02 EOS x10^3 (test code = 711-2) 0.16 10*3/uL 0.06-0.53 BASO x10^3 (test code = 704-7) 0.03 10*3/uL 0.01-0.09 [facility] with Xfjftrzwktjb4114-36-31 02:32:00* Test Item Value Reference Range Interpretation Comme nts WBC (test code = 6690-2) See_Comment [Automated messa ge] The system which generated this result transmitted reference range: 4.20 - 10.70 10*3/?L. The reference range was not used to interpret this result as normal/abnormal. RBC (test code = 789-8) See_Comment [Automated [employer]] The system which generated this result transmitted reference range: 4.26 - 5.52 10*6/?L. The reference range was not used to interpret this result as normal/abnormal. HGB (test code = 718-7) 15.0 g/dL 12.2-16.4 HCT (test code = 4544-3) 46.6 % 38.4-49.3 MCV (test code = 787-2) 90.3 fL 81.7-95.6 MCH (test code = 785-6) 29.1 pg 26.1-32.7 MCHC (test code = 786-4) 32.2 g/dL 31.2-35 RDW-SD (test code = 11435-0) 40.4 fL 38.5-51.6 RDW-CV (test code = 788-0) 12.2 % 12.1-15.4 PLT (test code = 777-3) See_Comment [Automated messa ge] The system which generated this result transmitted reference range: 150 - 328 10*3/?L. The reference range was not used to interpret this result as normal/abnormal. MPV (test code = 01164-5) 12.7 fL 9.8-13 NRBC/100 WBC (test code = 9864296719) See_Comment [Automated me ssage] The system which generated this result transmitted reference range: 0.0 - 10.0 /100 WBCs. The reference range was not used to interpret this result as normal/abnormal. NRBC x10^3 (test code = 2891417997) <0.01 See_Comment [Automated me ssage] The system which generated this result transmitted reference range: 10*3/?L. The reference range was not used to interpret this result as normal/abnormal. GRAN MAT (NEUT) % (test code = 770-8) 55.4 % IMM GRAN % (test code = 2297739784) 0.60 % LYMPH % (test code = 736-9) 33.8 % MONO % (test code = 5905-5) 7.2 % EOS % (test code = 713-8) 2.5 % BASO % (test code = 706-2) 0.5 % GRAN MAT x10^3(ANC) (test code = 6891346619) 3.56 10*3/uL 1.99-6.95 IMM GRAN x10^3 (test code = 5532072453) 0.04 10*3/uL 0-0.06 LYMPH x10^3 (test code = 731-0) 2.17 10*3/uL 1.09-3.23 MONO x10^3 (test code = 742-7) 0.46 10*3/uL 0.36-1.02 EOS x10^3 (test code = 711-2) 0.16 10*3/uL 0.06-0.53 BASO x10^3 (test code = 704-7) 0.03 10*3/uL 0.01-0.09 [facility] with Radxatqtrvxa1160-24-81 02:32:00* Test Item Value Reference Range Interpretation Comme nts WBC (test code = 6690-2) See_Comment [Automated [employer]] The system which generated this result transmitted reference range: 4.20 - 10.70 10*3/?L. The reference range was not used to interpret this result as normal/abnormal. RBC (test code = 789-8) See_Comment [Automated [employer]] The system which generated this result transmitted reference range: 4.26 - 5.52 10*6/?L. The reference range was not used to interpret this result as normal/abnormal. HGB (test code = 718-7) 15.0 g/dL 12.2-16.4 HCT (test code = 4544-3) 46.6 % 38.4-49.3 MCV (test code = 787-2) 90.3 fL 81.7-95.6 MCH (test code = 785-6) 29.1 pg 26.1-32.7 MCHC (test code = 786-4) 32.2 g/dL 31.2-35 RDW-SD (test code = 39737-3) 40.4 fL 38.5-51.6 RDW-CV (test code = 788-0) 12.2 % 12.1-15.4 PLT (test code = 777-3) See_Comment [Automated [employer]] The system which generated this result transmitted reference range: 150 - 328 10*3/?L. The reference range was not used to interpret this result as normal/abnormal. MPV (test code = 46692-5) 12.7 fL 9.8-13 NRBC/100 WBC (test code = 6951930813) See_Comment [Automated 2[employer] Watch ssage] The system which generated this result transmitted reference range: 0.0 - 10.0 /100 WBCs. The reference range was not used to interpret this result as normal/abnormal. NRBC x10^3 (test code = 9821205530) <0.01 See_Comment [Automated me ssage] The system which generated this result transmitted reference range: 10*3/?L. The reference range was not used to interpret this result as normal/abnormal. GRAN MAT (NEUT) % (test code = 770-8) 55.4 % IMM GRAN % (test code = 4127264569) 0.60 % LYMPH % (test code = 736-9) 33.8 % MONO % (test code = 5905-5) 7.2 % EOS % (test code = 713-8) 2.5 % BASO % (test code = 706-2) 0.5 % GRAN MAT x10^3(ANC) (test code = 3244789136) 3.56 10*3/uL 1.99-6.95 IMM GRAN x10^3 (test code = 1044407416) 0.04 10*3/uL 0-0.06 LYMPH x10^3 (test code = 731-0) 2.17 10*3/uL 1.09-3.23 MONO x10^3 (test code = 742-7) 0.46 10*3/uL 0.36-1.02 EOS x10^3 (test code = 711-2) 0.16 10*3/uL 0.06-0.53 BASO x10^3 (test code = 704-7) 0.03 10*3/uL 0.01-0.09 [facility] with Uqatnkrksesq1442-88-27 02:32:00* Test Item Value Reference Range Interpretation Comme nts WBC (test code = 6690-2) See_Comment [Automated [employer]] The system which generated this result transmitted reference range: 4.20 - 10.70 10*3/?L. The reference range was not used to interpret this result as normal/abnormal. RBC (test code = 789-8) See_Comment [Automated [employer]] The system which generated this result transmitted reference range: 4.26 - 5.52 10*6/?L. The reference range was not used to interpret this result as normal/abnormal. HGB (test code = 718-7) 15.0 g/dL 12.2-16.4 HCT (test code = 4544-3) 46.6 % 38.4-49.3 MCV (test code = 787-2) 90.3 fL 81.7-95.6 MCH (test code = 785-6) 29.1 pg 26.1-32.7 MCHC (test code = 786-4) 32.2 g/dL 31.2-35 RDW-SD (test code = 14101-8) 40.4 fL 38.5-51.6 RDW-CV (test code = 788-0) 12.2 % 12.1-15.4 PLT (test code = 777-3) See_Comment [Automated messa ge] The system which generated this result transmitted reference range: 150 - 328 10*3/?L. The reference range was not used to interpret this result as normal/abnormal. MPV (test code = 20359-7) 12.7 fL 9.8-13 NRBC/100 WBC (test code = 6987444750) See_Comment [Automated me ssage] The system which generated this result transmitted reference range: 0.0 - 10.0 /100 WBCs. The reference range was not used to interpret this result as normal/abnormal. NRBC x10^3 (test code = 8128524079) <0.01 See_Comment [Automated me ssage] The system which generated this result transmitted reference range: 10*3/?L. The reference range was not used to interpret this result as normal/abnormal. GRAN MAT (NEUT) % (test code = 770-8) 55.4 % IMM GRAN % (test code = 9009799440) 0.60 % LYMPH % (test code = 736-9) 33.8 % MONO % (test code = 5905-5) 7.2 % EOS % (test code = 713-8) 2.5 % BASO % (test code = 706-2) 0.5 % GRAN MAT x10^3(ANC) (test code = 3146544999) 3.56 10*3/uL 1.99-6.95 IMM GRAN x10^3 (test code = 5052820015) 0.04 10*3/uL 0-0.06 LYMPH x10^3 (test code = 731-0) 2.17 10*3/uL 1.09-3.23 MONO x10^3 (test code = 742-7) 0.46 10*3/uL 0.36-1.02 EOS x10^3 (test code = 711-2) 0.16 10*3/uL 0.06-0.53 BASO x10^3 (test code = 704-7) 0.03 10*3/uL 0.01-0.09 [facility] with Kgiyfwdxxrmj2781-65-02 02:32:00* Test Item Value Reference Range Interpretation Comme nts WBC (test code = 6690-2) See_Comment [Automated messa ge] The system which generated this result transmitted reference range: 4.20 - 10.70 10*3/?L. The reference range was not used to interpret this result as normal/abnormal. RBC (test code = 789-8) See_Comment [Automated messa ge] The system which generated this result transmitted reference range: 4.26 - 5.52 10*6/?L. The reference range was not used to interpret this result as normal/abnormal. HGB (test code = 718-7) 15.0 g/dL 12.2-16.4 HCT (test code = 4544-3) 46.6 % 38.4-49.3 MCV (test code = 787-2) 90.3 fL 81.7-95.6 MCH (test code = 785-6) 29.1 pg 26.1-32.7 MCHC (test code = 786-4) 32.2 g/dL 31.2-35 RDW-SD (test code = 70139-2) 40.4 fL 38.5-51.6 RDW-CV (test code = 788-0) 12.2 % 12.1-15.4 PLT (test code = 777-3) See_Comment [Automated messa ge] The system which generated this result transmitted reference range: 150 - 328 10*3/?L. The reference range was not used to interpret this result as normal/abnormal. MPV (test code = 76010-7) 12.7 fL 9.8-13 NRBC/100 WBC (test code = 3211302953) See_Comment [Automated me ssage] The system which generated this result transmitted reference range: 0.0 - 10.0 /100 WBCs. The reference range was not used to interpret this result as normal/abnormal. NRBC x10^3 (test code = 1010287880) <0.01 See_Comment [Automated me ssage] The system which generated this result transmitted reference range: 10*3/?L. The reference range was not used to interpret this result as normal/abnormal. GRAN MAT (NEUT) % (test code = 770-8) 55.4 % IMM GRAN % (test code = 6126855607) 0.60 % LYMPH % (test code = 736-9) 33.8 % MONO % (test code = 5905-5) 7.2 % EOS % (test code = 713-8) 2.5 % BASO % (test code = 706-2) 0.5 % GRAN MAT x10^3(ANC) (test code = 5465289326) 3.56 10*3/uL 1.99-6.95 IMM GRAN x10^3 (test code = 0066806814) 0.04 10*3/uL 0-0.06 LYMPH x10^3 (test code = 731-0) 2.17 10*3/uL 1.09-3.23 MONO x10^3 (test code = 742-7) 0.46 10*3/uL 0.36-1.02 EOS x10^3 (test code = 711-2) 0.16 10*3/uL 0.06-0.53 BASO x10^3 (test code = 704-7) 0.03 10*3/uL 0.01-0.09 [facility] with Trhoocsspjrt4052-36-92 02:32:00* Test Item Value Reference Range Interpretation Comme nts WBC (test code = 6690-2) See_Comment [Automated [employer]] The system which generated this result transmitted reference range: 4.20 - 10.70 10*3/?L. The reference range was not used to interpret this result as normal/abnormal. RBC (test code = 789-8) See_Comment [Automated [employer]] The system which generated this result transmitted reference range: 4.26 - 5.52 10*6/?L. The reference range was not used to interpret this result as normal/abnormal. HGB (test code = 718-7) 15.0 g/dL 12.2-16.4 HCT (test code = 4544-3) 46.6 % 38.4-49.3 MCV (test code = 787-2) 90.3 fL 81.7-95.6 MCH (test code = 785-6) 29.1 pg 26.1-32.7 MCHC (test code = 786-4) 32.2 g/dL 31.2-35 RDW-SD (test code = 95817-4) 40.4 fL 38.5-51.6 RDW-CV (test code = 788-0) 12.2 % 12.1-15.4 PLT (test code = 777-3) See_Comment [Automated messa ge] The system which generated this result transmitted reference range: 150 - 328 10*3/?L. The reference range was not used to interpret this result as normal/abnormal. MPV (test code = 21415-6) 12.7 fL 9.8-13 NRBC/100 WBC (test code = 0323095153) See_Comment [Automated me ssage] The system which generated this result transmitted reference range: 0.0 - 10.0 /100 WBCs. The reference range was not used to interpret this result as normal/abnormal. NRBC x10^3 (test code = 1436202142) <0.01 See_Comment [Automated me ssage] The system which generated this result transmitted reference range: 10*3/?L. The reference range was not used to interpret this result as normal/abnormal. GRAN MAT (NEUT) % (test code = 770-8) 55.4 % IMM GRAN % (test code = 6316647651) 0.60 % LYMPH % (test code = 736-9) 33.8 % MONO % (test code = 5905-5) 7.2 % EOS % (test code = 713-8) 2.5 % BASO % (test code = 706-2) 0.5 % GRAN MAT x10^3(ANC) (test code = 7221587783) 3.56 10*3/uL 1.99-6.95 IMM GRAN x10^3 (test code = 7287812417) 0.04 10*3/uL 0-0.06 LYMPH x10^3 (test code = 731-0) 2.17 10*3/uL 1.09-3.23 MONO x10^3 (test code = 742-7) 0.46 10*3/uL 0.36-1.02 EOS x10^3 (test code = 711-2) 0.16 10*3/uL 0.06-0.53 BASO x10^3 (test code = 704-7) 0.03 10*3/uL 0.01-0.09 [facility] with [id number] 02:32:00* Test Item Value Reference Range Interpretation Comme nts WBC (test code = 6690-2) See_Comment [Automated messa ge] The system which generated this result transmitted reference range: 4.20 - 10.70 10*3/?L. The reference range was not used to interpret this result as normal/abnormal. RBC (test code = 789-8) See_Comment [Automated messa ge] The system which generated this result transmitted reference range: 4.26 - 5.52 10*6/?L. The reference range was not used to interpret this result as normal/abnormal. HGB (test code = 718-7) 15.0 g/dL 12.2-16.4 HCT (test code = 4544-3) 46.6 % 38.4-49.3 MCV (test code = 787-2) 90.3 fL 81.7-95.6 MCH (test code = 785-6) 29.1 pg 26.1-32.7 MCHC (test code = 786-4) 32.2 g/dL 31.2-35 RDW-SD (test code = 03923-5) 40.4 fL 38.5-51.6 RDW-CV (test code = 788-0) 12.2 % 12.1-15.4 PLT (test code = 777-3) See_Comment [Automated messa ge] The system which generated this result transmitted reference range: 150 - 328 10*3/?L. The reference range was not used to interpret this result as normal/abnormal. MPV (test code = 28595-0) 12.7 fL 9.8-13 NRBC/100 WBC (test code = 2545379151) See_Comment [Automated me ssage] The system which generated this result transmitted reference range: 0.0 - 10.0 /100 WBCs. The reference range was not used to interpret this result as normal/abnormal. NRBC x10^3 (test code = 0771555680) <0.01 See_Comment [Automated me ssage] The system which generated this result transmitted reference range: 10*3/?L. The reference range was not used to interpret this result as normal/abnormal. GRAN MAT (NEUT) % (test code = 770-8) 55.4 % IMM GRAN % (test code = 1542440417) 0.60 % LYMPH % (test code = 736-9) 33.8 % MONO % (test code = 5905-5) 7.2 % EOS % (test code = 713-8) 2.5 % BASO % (test code = 706-2) 0.5 % GRAN MAT x10^3(ANC) (test code = 7709826828) 3.56 10*3/uL 1.99-6.95 IMM GRAN x10^3 (test code = 4175686788) 0.04 10*3/uL 0-0.06 LYMPH x10^3 (test code = 731-0) 2.17 10*3/uL 1.09-3.23 MONO x10^3 (test code = 742-7) 0.46 10*3/uL 0.36-1.02 EOS x10^3 (test code = 711-2) 0.16 10*3/uL 0.06-0.53 BASO x10^3 (test code = 704-7) 0.03 10*3/uL 0.01-0.09 [facility] with Cmctcpxqkihu3625-60-58 02:32:00* Test Item Value Reference Range Interpretation Comme nts WBC (test code = 6690-2) See_Comment [Automated messa ge] The system which generated this result transmitted reference range: 4.20 - 10.70 10*3/?L. The reference range was not used to interpret this result as normal/abnormal. RBC (test code = 789-8) See_Comment [Automated messa ge] The system which generated this result transmitted reference range: 4.26 - 5.52 10*6/?L. The reference range was not used to interpret this result as normal/abnormal. HGB (test code = 718-7) 15.0 g/dL 12.2-16.4 HCT (test code = 4544-3) 46.6 % 38.4-49.3 MCV (test code = 787-2) 90.3 fL 81.7-95.6 MCH (test code = 785-6) 29.1 pg 26.1-32.7 MCHC (test code = 786-4) 32.2 g/dL 31.2-35 RDW-SD (test code = 64080-2) 40.4 fL 38.5-51.6 RDW-CV (test code = 788-0) 12.2 % 12.1-15.4 PLT (test code = 777-3) See_Comment [Automated messa ge] The system which generated this result transmitted reference range: 150 - 328 10*3/?L. The reference range was not used to interpret this result as normal/abnormal. MPV (test code = 77826-1) 12.7 fL 9.8-13 NRBC/100 WBC (test code = 6474458521) See_Comment [Automated me ssage] The system which generated this result transmitted reference range: 0.0 - 10.0 /100 WBCs. The reference range was not used to interpret this result as normal/abnormal. NRBC x10^3 (test code = 6570082091) <0.01 See_Comment [Automated me ssage] The system which generated this result transmitted reference range: 10*3/?L. The reference range was not used to interpret this result as normal/abnormal. GRAN MAT (NEUT) % (test code = 770-8) 55.4 % IMM GRAN % (test code = 0785913489) 0.60 % LYMPH % (test code = 736-9) 33.8 % MONO % (test code = 5905-5) 7.2 % EOS % (test code = 713-8) 2.5 % BASO % (test code = 706-2) 0.5 % GRAN MAT x10^3(ANC) (test code = 1232827185) 3.56 10*3/uL 1.99-6.95 IMM GRAN x10^3 (test code = 6138975696) 0.04 10*3/uL 0-0.06 LYMPH x10^3 (test code = 731-0) 2.17 10*3/uL 1.09-3.23 MONO x10^3 (test code = 742-7) 0.46 10*3/uL 0.36-1.02 EOS x10^3 (test code = 711-2) 0.16 10*3/uL 0.06-0.53 BASO x10^3 (test code = 704-7) 0.03 10*3/uL 0.01-0.09 [facility] with Fogskzpntrbu6663-22-78 02:32:00* Test Item Value Reference Range Interpretation Comme nts WBC (test code = 6690-2) See_Comment [Automated messa ge] The system which generated this result transmitted reference range: 4.20 - 10.70 10*3/?L. The reference range was not used to interpret this result as normal/abnormal. RBC (test code = 789-8) See_Comment [Automated messa ge] The system which generated this result transmitted reference range: 4.26 - 5.52 10*6/?L. The reference range was not used to interpret this result as normal/abnormal. HGB (test code = 718-7) 15.0 g/dL 12.2-16.4 HCT (test code = 4544-3) 46.6 % 38.4-49.3 MCV (test code = 787-2) 90.3 fL 81.7-95.6 MCH (test code = 785-6) 29.1 pg 26.1-32.7 MCHC (test code = 786-4) 32.2 g/dL 31.2-35 RDW-SD (test code = 82992-2) 40.4 fL 38.5-51.6 RDW-CV (test code = 788-0) 12.2 % 12.1-15.4 PLT (test code = 777-3) See_Comment [Automated messa ge] The system which generated this result transmitted reference range: 150 - 328 10*3/?L. The reference range was not used to interpret this result as normal/abnormal. MPV (test code = 42880-9) 12.7 fL 9.8-13 NRBC/100 WBC (test code = 2647136104) See_Comment [Automated [employer]age] The system which generated this result transmitted reference range: 0.0 - 10.0 /100 WBCs. The reference range was not used to interpret this result as normal/abnormal. NRBC x10^3 (test code = 7043836158) <0.01 See_Comment [Automated me ssage] The system which generated this result transmitted reference range: 10*3/?L. The reference range was not used to interpret this result as normal/abnormal. GRAN MAT (NEUT) % (test code = 770-8) 55.4 % IMM GRAN % (test code = 4882999535) 0.60 % LYMPH % (test code = 736-9) 33.8 % MONO % (test code = 5905-5) 7.2 % EOS % (test code = 713-8) 2.5 % BASO % (test code = 706-2) 0.5 % GRAN MAT x10^3(ANC) (test code = 9503007616) 3.56 10*3/uL 1.99-6.95 IMM GRAN x10^3 (test code = 8178105743) 0.04 10*3/uL 0-0.06 LYMPH x10^3 (test code = 731-0) 2.17 10*3/uL 1.09-3.23 MONO x10^3 (test code = 742-7) 0.46 10*3/uL 0.36-1.02 EOS x10^3 (test code = 711-2) 0.16 10*3/uL 0.06-0.53 BASO x10^3 (test code = 704-7) 0.03 10*3/uL 0.01-0.09 [facility] with Ckitnhzozaxj0744-47-74 02:32:00* Test Item Value Reference Range Interpretation Comme nts WBC (test code = 6690-2) See_Comment [Automated messa ge] The system which generated this result transmitted reference range: 4.20 - 10.70 10*3/?L. The reference range was not used to interpret this result as normal/abnormal. RBC (test code = 789-8) See_Comment [Automated messa ge] The system which generated this result transmitted reference range: 4.26 - 5.52 10*6/?L. The reference range was not used to interpret this result as normal/abnormal. HGB (test code = 718-7) 15.0 g/dL 12.2-16.4 HCT (test code = 4544-3) 46.6 % 38.4-49.3 MCV (test code = 787-2) 90.3 fL 81.7-95.6 MCH (test code = 785-6) 29.1 pg 26.1-32.7 MCHC (test code = 786-4) 32.2 g/dL 31.2-35 RDW-SD (test code = 17174-6) 40.4 fL 38.5-51.6 RDW-CV (test code = 788-0) 12.2 % 12.1-15.4 PLT (test code = 777-3) See_Comment [Automated messa ge] The system which generated this result transmitted reference range: 150 - 328 10*3/?L. The reference range was not used to interpret this result as normal/abnormal. MPV (test code = 91814-1) 12.7 fL 9.8-13 NRBC/100 WBC (test code = 2241542248) See_Comment [Automated me ssage] The system which generated this result transmitted reference range: 0.0 - 10.0 /100 WBCs. The reference range was not used to interpret this result as normal/abnormal. NRBC x10^3 (test code = 2055173159) <0.01 See_Comment [Automated me ssage] The system which generated this result transmitted reference range: 10*3/?L. The reference range was not used to interpret this result as normal/abnormal. GRAN MAT (NEUT) % (test code = 770-8) 55.4 % IMM GRAN % (test code = 4248542709) 0.60 % LYMPH % (test code = 736-9) 33.8 % MONO % (test code = 5905-5) 7.2 % EOS % (test code = 713-8) 2.5 % BASO % (test code = 706-2) 0.5 % GRAN MAT x10^3(ANC) (test code = 5719140040) 3.56 10*3/uL 1.99-6.95 IMM GRAN x10^3 (test code = 1903690122) 0.04 10*3/uL 0-0.06 LYMPH x10^3 (test code = 731-0) 2.17 10*3/uL 1.09-3.23 MONO x10^3 (test code = 742-7) 0.46 10*3/uL 0.36-1.02 EOS x10^3 (test code = 711-2) 0.16 10*3/uL 0.06-0.53 BASO x10^3 (test code = 704-7) 0.03 10*3/uL 0.01-0.09 [facility] with Yuekinkigkia8066-71-96 02:32:00* Test Item Value Reference Range Interpretation Comme nts WBC (test code = 6690-2) See_Comment [Automated messa ge] The system which generated this result transmitted reference range: 4.20 - 10.70 10*3/?L. The reference range was not used to interpret this result as normal/abnormal. RBC (test code = 789-8) See_Comment [Automated messa ge] The system which generated this result transmitted reference range: 4.26 - 5.52 10*6/?L. The reference range was not used to interpret this result as normal/abnormal. HGB (test code = 718-7) 15.0 g/dL 12.2-16.4 HCT (test code = 4544-3) 46.6 % 38.4-49.3 MCV (test code = 787-2) 90.3 fL 81.7-95.6 MCH (test code = 785-6) 29.1 pg 26.1-32.7 MCHC (test code = 786-4) 32.2 g/dL 31.2-35 RDW-SD (test code = 32700-6) 40.4 fL 38.5-51.6 RDW-CV (test code = 788-0) 12.2 % 12.1-15.4 PLT (test code = 777-3) See_Comment [Automated messa ge] The system which generated this result transmitted reference range: 150 - 328 10*3/?L. The reference range was not used to interpret this result as normal/abnormal. MPV (test code = 12867-1) 12.7 fL 9.8-13 NRBC/100 WBC (test code = 2444312355) See_Comment [Automated me ssage] The system which generated this result transmitted reference range: 0.0 - 10.0 /100 WBCs. The reference range was not used to interpret this result as normal/abnormal. NRBC x10^3 (test code = 4479783807) <0.01 See_Comment [Automated me ssage] The system which generated this result transmitted reference range: 10*3/?L. The reference range was not used to interpret this result as normal/abnormal. GRAN MAT (NEUT) % (test code = 770-8) 55.4 % IMM GRAN % (test code = 5863616659) 0.60 % LYMPH % (test code = 736-9) 33.8 % MONO % (test code = 5905-5) 7.2 % EOS % (test code = 713-8) 2.5 % BASO % (test code = 706-2) 0.5 % GRAN MAT x10^3(ANC) (test code = 8191042252) 3.56 10*3/uL 1.99-6.95 IMM GRAN x10^3 (test code = 8248538206) 0.04 10*3/uL 0-0.06 LYMPH x10^3 (test code = 731-0) 2.17 10*3/uL 1.09-3.23 MONO x10^3 (test code = 742-7) 0.46 10*3/uL 0.36-1.02 EOS x10^3 (test code = 711-2) 0.16 10*3/uL 0.06-0.53 BASO x10^3 (test code = 704-7) 0.03 10*3/uL 0.01-0.09 [facility] with Ytuilfcbmgye6035-40-82 02:32:00* Test Item Value Reference Range Interpretation Comme nts WBC (test code = 6690-2) See_Comment [Automated messa ge] The system which generated this result transmitted reference range: 4.20 - 10.70 10*3/?L. The reference range was not used to interpret this result as normal/abnormal. RBC (test code = 789-8) See_Comment [Automated messa ge] The system which generated this result transmitted reference range: 4.26 - 5.52 10*6/?L. The reference range was not used to interpret this result as normal/abnormal. HGB (test code = 718-7) 15.0 g/dL 12.2-16.4 HCT (test code = 4544-3) 46.6 % 38.4-49.3 MCV (test code = 787-2) 90.3 fL 81.7-95.6 MCH (test code = 785-6) 29.1 pg 26.1-32.7 MCHC (test code = 786-4) 32.2 g/dL 31.2-35 RDW-SD (test code = 81615-5) 40.4 fL 38.5-51.6 RDW-CV (test code = 788-0) 12.2 % 12.1-15.4 PLT (test code = 777-3) See_Comment [Automated messa ge] The system which generated this result transmitted reference range: 150 - 328 10*3/?L. The reference range was not used to interpret this result as normal/abnormal. MPV (test code = 26155-5) 12.7 fL 9.8-13 NRBC/100 WBC (test code = 3696245662) See_Comment [Automated me ssage] The system which generated this result transmitted reference range: 0.0 - 10.0 /100 WBCs. The reference range was not used to interpret this result as normal/abnormal. NRBC x10^3 (test code = 7984219032) <0.01 See_Comment [Automated me ssage] The system which generated this result transmitted reference range: 10*3/?L. The reference range was not used to interpret this result as normal/abnormal. GRAN MAT (NEUT) % (test code = 770-8) 55.4 % IMM GRAN % (test code = 6566154266) 0.60 % LYMPH % (test code = 736-9) 33.8 % MONO % (test code = 5905-5) 7.2 % EOS % (test code = 713-8) 2.5 % BASO % (test code = 706-2) 0.5 % GRAN MAT x10^3(ANC) (test code = 7423819527) 3.56 10*3/uL 1.99-6.95 IMM GRAN x10^3 (test code = 9074534107) 0.04 10*3/uL 0-0.06 LYMPH x10^3 (test code = 731-0) 2.17 10*3/uL 1.09-3.23 MONO x10^3 (test code = 742-7) 0.46 10*3/uL 0.36-1.02 EOS x10^3 (test code = 711-2) 0.16 10*3/uL 0.06-0.53 BASO x10^3 (test code = 704-7) 0.03 10*3/uL 0.01-0.09 [facility] with Krkqxbudyobx2042-59-02 02:32:00* Test Item Value Reference Range Interpretation Comme nts WBC (test code = 6690-2) See_Comment [Automated [employer]] The system which generated this result transmitted reference range: 4.20 - 10.70 10*3/?L. The reference range was not used to interpret this result as normal/abnormal. RBC (test code = 789-8) See_Comment [Automated [employer]] The system which generated this result transmitted reference range: 4.26 - 5.52 10*6/?L. The reference range was not used to interpret this result as normal/abnormal. HGB (test code = 718-7) 15.0 g/dL 12.2-16.4 HCT (test code = 4544-3) 46.6 % 38.4-49.3 MCV (test code = 787-2) 90.3 fL 81.7-95.6 MCH (test code = 785-6) 29.1 pg 26.1-32.7 MCHC (test code = 786-4) 32.2 g/dL 31.2-35 RDW-SD (test code = 98604-5) 40.4 fL 38.5-51.6 RDW-CV (test code = 788-0) 12.2 % 12.1-15.4 PLT (test code = 777-3) See_Comment [Automated [employer] ge] The system which generated this result transmitted reference range: 150 - 328 10*3/?L. The reference range was not used to interpret this result as normal/abnormal. MPV (test code = 56121-0) 12.7 fL 9.8-13 NRBC/100 WBC (test code = 1802790063) See_Comment [Automated me ssage] The system which generated this result transmitted reference range: 0.0 - 10.0 /100 WBCs. The reference range was not used to interpret this result as normal/abnormal. NRBC x10^3 (test code = 2686679007) <0.01 See_Comment [Automated me ssage] The system which generated this result transmitted reference range: 10*3/?L. The reference range was not used to interpret this result as normal/abnormal. GRAN MAT (NEUT) % (test code = 770-8) 55.4 % IMM GRAN % (test code = 9862749815) 0.60 % LYMPH % (test code = 736-9) 33.8 % MONO % (test code = 5905-5) 7.2 % EOS % (test code = 713-8) 2.5 % BASO % (test code = 706-2) 0.5 % GRAN MAT x10^3(ANC) (test code = 1449574408) 3.56 10*3/uL 1.99-6.95 IMM GRAN x10^3 (test code = 6279383465) 0.04 10*3/uL 0-0.06 LYMPH x10^3 (test code = 731-0) 2.17 10*3/uL 1.09-3.23 MONO x10^3 (test code = 742-7) 0.46 10*3/uL 0.36-1.02 EOS x10^3 (test code = 711-2) 0.16 10*3/uL 0.06-0.53 BASO x10^3 (test code = 704-7) 0.03 10*3/uL 0.01-0.09 [facility] with Apdtanirdjlz0999-40-44 02:32:00* Test Item Value Reference Range Interpretation Comme nts WBC (test code = 6690-2) See_Comment [Automated messa ge] The system which generated this result transmitted reference range: 4.20 - 10.70 10*3/?L. The reference range was not used to interpret this result as normal/abnormal. RBC (test code = 789-8) See_Comment [Automated messa ge] The system which generated this result transmitted reference range: 4.26 - 5.52 10*6/?L. The reference range was not used to interpret this result as normal/abnormal. HGB (test code = 718-7) 15.0 g/dL 12.2-16.4 HCT (test code = 4544-3) 46.6 % 38.4-49.3 MCV (test code = 787-2) 90.3 fL 81.7-95.6 MCH (test code = 785-6) 29.1 pg 26.1-32.7 MCHC (test code = 786-4) 32.2 g/dL 31.2-35 RDW-SD (test code = 96409-1) 40.4 fL 38.5-51.6 RDW-CV (test code = 788-0) 12.2 % 12.1-15.4 PLT (test code = 777-3) See_Comment [Automated [employer]] The system which generated this result transmitted reference range: 150 - 328 10*3/?L. The reference range was not used to interpret this result as normal/abnormal. MPV (test code = 88129-6) 12.7 fL 9.8-13 NRBC/100 WBC (test code = 0777380768) See_Comment [Automated [employer]] The system which generated this result transmitted reference range: 0.0 - 10.0 /100 WBCs. The reference range was not used to interpret this result as normal/abnormal. NRBC x10^3 (test code = 3519834727) <0.01 See_Comment [Automated [employer]] The system which generated this result transmitted reference range: 10*3/?L. The reference range was not used to interpret this result as normal/abnormal. GRAN MAT (NEUT) % (test code = 770-8) 55.4 % IMM GRAN % (test code = 7803498603) 0.60 % LYMPH % (test code = 736-9) 33.8 % MONO % (test code = 5905-5) 7.2 % EOS % (test code = 713-8) 2.5 % BASO % (test code = 706-2) 0.5 % GRAN MAT x10^3(ANC) (test code = 5292529891) 3.56 10*3/uL 1.99-6.95 IMM GRAN x10^3 (test code = 5342551326) 0.04 10*3/uL 0-0.06 LYMPH x10^3 (test code = 731-0) 2.17 10*3/uL 1.09-3.23 MONO x10^3 (test code = 742-7) 0.46 10*3/uL 0.36-1.02 EOS x10^3 (test code = 711-2) 0.16 10*3/uL 0.06-0.53 BASO x10^3 (test code = 704-7) 0.03 10*3/uL 0.01-0.09 [facility] with Ouuicqekiwlz5031-29-51 02:32:00* Test Item Value Reference Range Interpretation Comme nts WBC (test code = 6690-2) See_Comment [Automated messa ge] The system which generated this result transmitted reference range: 4.20 - 10.70 10*3/?L. The reference range was not used to interpret this result as normal/abnormal. RBC (test code = 789-8) See_Comment [Automated messa ge] The system which generated this result transmitted reference range: 4.26 - 5.52 10*6/?L. The reference range was not used to interpret this result as normal/abnormal. HGB (test code = 718-7) 15.0 g/dL 12.2-16.4 HCT (test code = 4544-3) 46.6 % 38.4-49.3 MCV (test code = 787-2) 90.3 fL 81.7-95.6 MCH (test code = 785-6) 29.1 pg 26.1-32.7 MCHC (test code = 786-4) 32.2 g/dL 31.2-35 RDW-SD (test code = 70141-6) 40.4 fL 38.5-51.6 RDW-CV (test code = 788-0) 12.2 % 12.1-15.4 PLT (test code = 777-3) See_Comment [Automated messa ge] The system which generated this result transmitted reference range: 150 - 328 10*3/?L. The reference range was not used to interpret this result as normal/abnormal. MPV (test code = 33585-3) 12.7 fL 9.8-13 NRBC/100 WBC (test code = 0722402509) See_Comment [Automated me ssage] The system which generated this result transmitted reference range: 0.0 - 10.0 /100 WBCs. The reference range was not used to interpret this result as normal/abnormal. NRBC x10^3 (test code = 1921327422) <0.01 See_Comment [Automated me ssage] The system which generated this result transmitted reference range: 10*3/?L. The reference range was not used to interpret this result as normal/abnormal. GRAN MAT (NEUT) % (test code = 770-8) 55.4 % IMM GRAN % (test code = 1781747262) 0.60 % LYMPH % (test code = 736-9) 33.8 % MONO % (test code = 5905-5) 7.2 % EOS % (test code = 713-8) 2.5 % BASO % (test code = 706-2) 0.5 % GRAN MAT x10^3(ANC) (test code = 6049624438) 3.56 10*3/uL 1.99-6.95 IMM GRAN x10^3 (test code = 9429000674) 0.04 10*3/uL 0-0.06 LYMPH x10^3 (test code = 731-0) 2.17 10*3/uL 1.09-3.23 MONO x10^3 (test code = 742-7) 0.46 10*3/uL 0.36-1.02 EOS x10^3 (test code = 711-2) 0.16 10*3/uL 0.06-0.53 BASO x10^3 (test code = 704-7) 0.03 10*3/uL 0.01-0.09 [facility] [id number] 18:30:20CT Abdomen and Pelvis with intravenous contrast. CLINICAL HISTORY: Abdominal pain. DOSE: In-sc-vemhZP equipment and radiation dose reduction techniques wereemployed. CTDIvol: 19.76 mGy. DLP: 1305 mGy-cm. TECHNIQUE : Contiguous axial imaging from the level of the lung basesthrough the pubic symphysis were performed after the uncomplicatedadministration of Omnipaque contrast material. Coronal and sagittalreconstructions were obtained. Auto mA and/or iterative reconstruction wereused to reduce radiation dose. FINDINGS: Comparison has been made with previous CT scan of 07/22/2016. Lower lungs: Com promised due to motion. Minimal congestion suspected in thelung bases without focal area of consolidation. No pleural effusion orpericardial effusion. No definite hiatal hernia. Liver, Gallbladder and Spleen: Upper portions of liver and spleen arecompromised due to motion. No gross pathology detected in the liver or inthe spleen. No calcified gallstones. Biliary ducts and the pancreatic ductappear of normal size. Peritoneum: ?No free air or free fluid. No lymphadenopathy. Pancreas and Adrenals:?Unremarkable pancreas and adrenal glands. Kidneys and Ureters: ?No visible calculi in the renal collecting systems. No hydroureter or hydronephrosis. No enhancing kidney lesions visualized. Vessels:Normal. Retroperitoneum: No abnormal fluid or lymphadenopathy. Bowel: Constipation. Normal appendixis visualized Bladder and Reproductive Organs: Unremarkable unopacified urinary bladder. Bones: Unre markable. Soft tissues: Infection noted around the umbilicus with an approximately 4x 2 cm abscess suspected surrounded by congestion of the abdominal fat.Ingestion also noted in the infraumbilical midline subcutaneous tissuewhich could be chronic due to dermatitis. CONCLUSION:1. Recurrent infection in the umbilicus of region with a 4 x 2 cm sizeabscess suspected. Similar but slightly less severefindings are present inApril 2017 study.2. Constipation. [facility], Radiant Results Inft User - 04/17/2020 12:31 PM CSTCT Abdomen and Pelvis with intravenous contrast.CLINICAL HISTORY: Abdominal pain.DOSE: Up-to-date CT equipment and radiation dose reduction techniques wereemployed. CTDIvol: 19.76 mGy. DLP: 1305 mGy-cm.TECHNIQUE : Contiguous axial imaging from the level of the lung basesthrough the pubic symphysis were performed after the uncomplicatedadministration of Omnipaque contrast material. Coronal and sagittalreconstructions were obtained. Auto mA and/or iterative reconstruction wereused to reduce radiation dose.FINDINGS: Comparison has been made with previous CT scan of 07/22/2016.Lower lungs: Compromised due to motion. Minimal congestion suspected in thelung bases without focal area of consolidation. No pleural effusion orpericardial effusion. No definite hiatal hernia.Liver, Gallbladder and Spleen: Upper portions of liver and spleen arecompromised due to motion. No gross pathology detected in the liver or inthe spleen. No calcified gallstones. Biliary ducts and the pancreatic ductappear of normal size.Peritoneum: No free air or free fluid. No lymphadenopathy.Pancreas and Adrenals: Unremarkable pancreas and adrenal glands.Kidneys and Ureters: No visible calculi in the renal collecting systems. No hydroureter or hydronephrosis. No enhancing kidney lesions visualized. Vessels: Normal.Retroperitoneum: No abnormal fluid or lymphadenopathy.Bowel: Constipation. Normal appendixis visualizedBladder and Reproductive Organs: Unremarkable unopacified urinary bladder.Bones: Unremarkable.Soft tissues: Infection noted around the umbilicus with an approximately 4x 2 cm abscess susp ected surrounded by congestion of the abdominal fat.Ingestion also noted in the infraumbilical midline subcutaneous tissuewhich could be chronic due to dermatitis.CONCLUSION:1. Recurrent infection inthe umbilicus of region with a 4 x 2 cm sizeabscess suspected. Similar but slightly less severe findings are present inApril 2017 study.2. Constipation.[facility] W [id number] 18:30:20CT Abdomen and Pelvis with intravenous contrast. CLINICAL HISTORY: Abdominal pain. DOSE: [id number] equipment and radiation dose reduction techniques wereemployed. CTDIvol: 19.76 mGy. DLP: 1305 mGy-cm. TECHNIQUE : Contiguous axial imaging from the level of the lung basesthrough the pubic symphysis were performed after the uncomplicatedadministration of Omnipaque contrast material. Coronal and s agittalreconstructions were obtained. Auto mA and/or iterative reconstruction wereused to reduce radiation dose. FINDINGS: Comparison has been made with previous CT scan of 07/22/2016. Lower lungs: Compromised due to motion. Minimal congestion suspected in thelung bases without focal area of consolidation. No pleural effusion orpericardial effusion. No definite hiatal hernia. Liver, Gallbladder and Spleen: Upper portions of liver and spleen arecompromised due to motion. No gross pathology detected in the liver or inthe spleen. No calcified gallstones. Biliary ducts and the pancreatic ductappear of normal size. Peritoneum: ?No free air or free fluid. No lymphadenopathy. Pancreas and Adrenals:?Unremarkable pancreas and adrenal glands. Kidneys and Ureters: ?No visible calculi in the renal collecting systems. No hydroureter or hydronephrosis. No enhancing kidney lesions visualized. Vessels:Normal. Retroperitoneum: No abnormal fluid or lymphadenopathy. Bowel: Constipation. Normal appendixis visualized Bladder and Reproductive Organs: Unremarkable unopacified urinary bladder. Bones: Unremarkable. Soft tissues: Infection noted around the umbilicus with an approximately 4x 2 cm abscess suspected surrounded by congestion of the abdominal fat.Ingestion also noted in the infraumbilical mi dline subcutaneous tissuewhich could be chronic due to dermatitis. CONCLUSION:1. Recurrent infection in the umbilicus of region with a 4 x 2 cm sizeabscess suspected. Similar but slightly less severefindings are present inApril 2017 study.2. Constipation. [facility], Radiant Results Inft User - 04/17/2020 12:31 PM CSTCT Abdomen and Pelvis with intravenous contrast.CLINICAL HISTORY: Abdominal pain.DOSE: Up-to-date CT equipment and radiation dose reduction techniques wereemployed. CTDIvol: 19.76 mGy. DLP: 1305 mGy-cm.TECHNIQUE : Contiguous axial imaging from the level of the lung basesthrough the pubic symphysis were performed after the uncomplicatedadministration of Omnipaque contrast material. Coronal and sagittalreconstructions were obtained. Auto mA and/or iterative reconstruction wereused to reduce radiation dose.FINDINGS: Comparison has been made with previous CT scan of 07/22/2016.Lower lungs: Compromised due to motion. Minimal congestion suspected in thelung bases without focal area of consolidation. No pleural effusion orpericardial effusion. No definite hiatal hernia.Liver, Gallbladder and Spleen: Upper portions of liver and spleen arecompromised due to motion. No gross pathology detected in the liver or inthe spleen. No calcified gallstones. Biliary ducts and the pancreatic ductappear of normal size.Peritoneum: No free air or free fluid. No lymphadenopathy.Pancreas and Adrenals: Unremarkable pancreas and adrenal glands.Kidneys and Ureters: No visible calculi in the renal collecting systems. No hydroureter or hydronephrosis. No enhancing kidney lesions visualized. Vessels: Normal.Retroperitoneum: No abnormal fluid or lymphadenopathy.Bowel: Constipation. Normal appendixis visualizedBladder and Reproductive Organs: Unremarkable unopacified urinary bladder.Bones: Unremarkable.Soft tissues: Infection noted around the umbilicus with an approximately 4x 2 cm abscess susp ected surrounded by congestion of the abdominal fat.Ingestion also noted in the infraumbilical midline subcutaneous tissuewhich could be chronic due to dermatitis.CONCLUSION:1. Recurrent infection inthe umbilicus of region with a 4 x 2 cm sizeabscess suspected. Similar but slightly less severe findings are present inApril 2017 study.2. Constipation.[facility] [id number] 18:30:20CT Abdomen and Pelvis with intravenous contrast. CLINICAL HISTORY: Abdominal pain. DOSE: [id number] equipment and radiation dose reduction techniques wereemployed. CTDIvol: 19.76 mGy. DLP: 1305 mGy-cm. TECHNIQUE : Contiguous axial imaging from the level of the lung basesthrough the pubic symphysis were performed after the uncomplicatedadministration of Omnipaque contrast material. Coronal and s agittalreconstructions were obtained. Auto mA and/or iterative reconstruction wereused to reduce radiation dose. FINDINGS: Comparison has been made with previous CT scan of 07/22/2016. Lower lungs: Compromised due to motion. Minimal congestion suspected in thelung bases without focal area of consolidation. No pleural effusion orpericardial effusion. No definite hiatal hernia. Liver, Gallbladder and Spleen: Upper portions of liver and spleen arecompromised due to motion. No gross pathology detected in the liver or inthe spleen. No calcified gallstones. Biliary ducts and the pancreatic ductappear of normal size. Peritoneum: ?No free air or free fluid. No lymphadenopathy. Pancreas and Adrenals:?Unremarkable pancreas and adrenal glands. Kidneys and Ureters: ?No visible calculi in the renal collecting systems. No hydroureter or hydronephrosis. No enhancing kidney lesions visualized. Vessels:Normal. Retroperitoneum: No abnormal fluid or lymphadenopathy. Bowel: Constipation. Normal appendixis visualized Bladder and Reproductive Organs: Unremarkable unopacified urinary bladder. Bones: Unremarkable. Soft tissues: Infection noted around the umbilicus with an approximately 4x 2 cm abscess suspected surrounded by congestion of the abdominal fat.Ingestion also noted in the infraumbilical mi dline subcutaneous tissuewhich could be chronic due to dermatitis. CONCLUSION:1. Recurrent infection in the umbilicus of region with a 4 x 2 cm sizeabscess suspected. Similar but slightly less severefindings are present inApril 2017 study.2. Constipation. [facility], Radiant Results Inft User - 04/17/2020 12:31 PM CSTCT Abdomen and Pelvis with intravenous contrast.CLINICAL HISTORY: Abdominal pain.DOSE: Up-to-date CT equipment and radiation dose reduction techniques wereemployed. CTDIvol: 19.76 mGy. DLP: 1305 mGy-cm.TECHNIQUE : Contiguous axial imaging from the level of the lung basesthrough the pubic symphysis were performed after the uncomplicatedadministration of Omnipaque contrast material. Coronal and sagittalreconstructions were obtained. Auto mA and/or iterative reconstruction wereused to reduce radiation dose.FINDINGS: Comparison has been made with previous CT scan of 07/22/2016.Lower lungs: Compromised due to motion. Minimal congestion suspected in thelung bases without focal area of consolidation. No pleural effusion orpericardial effusion. No definite hiatal hernia.Liver, Gallbladder and Spleen: Upper portions of liver and spleen arecompromised due to motion. No gross pathology detected in the liver or inthe spleen. No calcified gallstones. Biliary ducts and the pancreatic ductappear of normal size.Peritoneum: No free air or free fluid. No lymphadenopathy.Pancreas and Adrenals: Unremarkable pancreas and adrenal glands.Kidneys and Ureters: No visible calculi in the renal collecting systems. No hydroureter or hydronephrosis. No enhancing kidney lesions visualized. Vessels: Normal.Retroperitoneum: No abnormal fluid or lymphadenopathy.Bowel: Constipation. Normal appendixis visualizedBladder and Reproductive Organs: Unremarkable unopacified urinary bladder.Bones: Unremarkable.Soft tissues: Infection noted around the umbilicus with an approximately 4x 2 cm abscess susp ected surrounded by congestion of the abdominal fat.Ingestion also noted in the infraumbilical midline subcutaneous tissuewhich could be chronic due to dermatitis.CONCLUSION:1. Recurrent infection inthe umbilicus of region with a 4 x 2 cm sizeabscess suspected. Similar but slightly less severe findings are present inApril 2017 study.2. Constipation.[facility] COVID-19 (ID NOW RAPID TESTING)2020-04-17 18:01:00* Test Item Value Reference Range Interpretation Comme nts SARS-CoV-2 Rapid ID NOW (test code = 88417-2) Not Detected Not Detected BEVERLY (test code = BEVERLY) ID NOW COVID-19 As say is an isothermal nucleic acid amplification test intended for the qualitative detection of nucleic acid from SARS-CoV-2 viral RNA in nasopharyngeal (RECYCLING DIRECTOR) specimens. It is used under Emergency Use Authorization (EUA) by FDA. The limit of detection (LOD) of the assay is 125 Genome Equivalents/mL. A positive result is indicative of the presence of SARS-CoV-2 RNA. ?Clinical correlation with patient history and other diagnostic information is necessary to determine patient infection status. A negative (Not Detected) result does not preclude SARS-CoV-2 infection. In patients with clinical symptoms and other tests that are consistent with SARS-CoV-2 infection, negative results should be treated as presumptive negative and a new specimen should be tested with alternative PCR molecular test. Invalid: Please collect a new specimen for repeat patient testing if clinically indicated. Lab Interpretation (test code = 47891-0) [facility]-19 (ID NOW RAPID TESTING)2020-04-17 18:01:00* Test Item Value Reference Range Interpretation Comme nts SARS-CoV-2 Rapid ID NOW (test code = 48947-5) Not Detected Not Detected BEVERLY (test code = BEVERLY) ID NOW COVID-19 As say is an isothermal nucleic acid amplification test intended for the qualitative detection of nucleic acid from SARS-CoV-2 viral RNA in nasopharyngeal (RECYCLING DIRECTOR) specimens. It is used under Emergency Use Authorization (EUA) by [facility]. The limit of detection (LOD) of the assay is 125 Genome Equivalents/mL. A positive result is indicative of the presence of SARS-CoV-2 RNA. ?Clinical correlation with patient history and other diagnostic information is necessary to determine patient infection status. A negative (Not Detected) result does not preclude SARS-CoV-2 infection. In patients with clinical symptoms and other tests that are consistent with SARS-CoV-2 infection, negative results should be treated as presumptive negative and a new specimen should be tested with alternative PCR molecular test. Invalid: Please collect a new specimen for repeat patient testing if clinically indicated. Lab Interpretation (test code = 30506-7) Normal [facility]- (ID NOW RAPID TESTING)2020-04-17 18:01:00* Test Item Value Reference Range Interpretation Comme nts SARS-CoV-2 Rapid ID NOW (test code = 57174-0) Not Detected Not Detected BEVERLY (test code = BEVERLY) ID NOW COVID-19 As say is an isothermal nucleic acid amplification test intended for the qualitative detection of nucleic acid from SARS-CoV-2 viral RNA in nasopharyngeal (RECYCLING DIRECTOR) specimens. It is used under Emergency Use Authorization (EUA) by FDA. The limit of detection (LOD) of the assay is 125 Genome Equivalents/mL. A positive result is indicative of the presence of SARS-CoV-2 RNA. ?Clinical correlation with patient history and other diagnostic information is necessary to determine patient infection status. A negative (Not Detected) result does not preclude SARS-CoV-2 infection. In patients with clinical symptoms and other tests that are consistent with SARS-CoV-2 infection, negative results should be treated as presumptive negative and a new specimen should be tested with alternative PCR molecular test. Invalid: Please collect a new specimen for repeat patient testing if clinically indicated. Lab Interpretation (test code = 24849-8) Normal [facility]. METABOLIC PANEL ([id number])2020-04-17 17:53:00* Test Item Value Reference Range Interpretation Comme nts NA (test code = 2698873943) 141 mmol/L 135-145 K (test code = 2362277111) 4.3 mmol/L 3.5-5 CL (test code = 8142324522) 105 mmol/L 98-108 CO2 TOTAL (test code = 2071461099) 29 mmol/L 23-31 AGAP (test code = 4834287243) 2-16 BUN (test code = 7708327589) 10 mg/dL 7-23 GLUCOSE (test code = 6073099982) 123 mg/dL 70-110 H CREATININE (test code = 5837302594) 0.85 mg/dL 0.6-1.25 TOTAL BILI (test code = 9584100171) 0.4 mg/dL 0.1-1.1 CALCIUM (test code = 0703694250) 8.6 mg/dL 8.6-10.6 T PROTEIN (test code = 0704522178) 7.0 g/dL 6.3-8.2 ALBUMIN (test code = 7239377155) 3.9 g/dL 3.5-5 ALK PHOS (test code = 3483504066) 62 U/L 34-122 ALTv (test code = 1742-6) 17 U/L 5-50 AST(SGOT) (test code = 1876147441) 19 U/L 13-40 eGFR Calculation (Non-) (test code = 2909021836) mL/min/1.73m2 eGFR Calculation () (test code = 8192856028) mL/min/1.73m2 BEVERLY (test code = BEVERLY) Association of Glomerular Filtration Rate (GFR) and Staging of Kidney Disease* + --+ --+ ------+| GFR (mL/min/1.73 m2) ?| With Kidney Damage ?| ?Without Kidney Damage+ --------+ --------+ +| ?>90 ?| ?Stage one ?| ? Normal ?+ ---+ ---+ -------+| ?60-89 ?| ?Stage two ?| ? Decreased GFR ? + --+ --+ ------+| ?30-59 ?| ?Stage three ?| ? Stage three ? + --+ --+ ------+| ?15-29 ?| ?Stage four ? | ? Stage four ?+ ---+ ---+ -------+| ?<15 (or dialysis) ? ?| ?Stage five ? | ? Stage five ?+ ---+ ---+ -------+ *Each stage assumes the associated GFR level has been in effect for at least three months. ?Stages 1 to 5, with or without kidney disease, indicate chronic kidney disease. Notes: Determination of stages one and two (with eGFR >59mL/min/1.73 m2) requires estimation of kidney damage for at least three months as defined by structural or functional abnormalities of the kidney, manifested by either:Pathological abnormalities or Markers of kidney damage (including abnormalities in the composition of the blood or urine or abnormalities in imaging tests). Lab Interpretation (test code = 73110-4) Abnormal [facility]. METABOLIC PANEL ([id number])2020-04-17 17:53:00* Test Item Value Reference Range Interpretation Comme nts NA (test code = 1139278985) 141 mmol/L 135-145 K (test code = 3425729599) 4.3 mmol/L 3.5-5 CL (test code = 3574245357) 105 mmol/L 98-108 CO2 TOTAL (test code = 3572487967) 29 mmol/L 23-31 AGAP (test code = 1055943023) 2-16 BUN (test code = 1964170609) 10 mg/dL 7-23 GLUCOSE (test code = 0469531740) 123 mg/dL 70-110 H CREATININE (test code = 0169835877) 0.85 mg/dL 0.6-1.25 TOTAL BILI (test code = 2648096548) 0.4 mg/dL 0.1-1.1 CALCIUM (test code = 3142258734) 8.6 mg/dL 8.6-10.6 T PROTEIN (test code = 6858427306) 7.0 g/dL 6.3-8.2 ALBUMIN (test code = 0380486303) 3.9 g/dL 3.5-5 ALK PHOS (test code = 2232147972) 62 U/L 34-122 ALTv (test code = 1742-6) 17 U/L 5-50 AST(SGOT) (test code = 5743697786) 19 U/L 13-40 eGFR Calculation (Non-) (test code = 8624227022) mL/min/1.73m2 eGFR Calculation () (test code = 7061458033) mL/min/1.73m2 BEVERLY (test code = BEVERLY) Association of Glomerular Filtration Rate (GFR) and Staging of Kidney Disease* + --+ --+ ------+| GFR (mL/min/1.73 m2) ?| With Kidney Damage ?| ?Without Kidney Damage+ --------+ --------+ +| ?>90 ?| ?Stage one ?| ? Normal ?+ ---+ ---+ -------+| ?60-89 ?| ?Stage two ?| ? Decreased GFR ? + --+ --+ ------+| ?30-59 ?| ?Stage three ?| ? Stage three ? + --+ --+ ------+| ?15-29 ?| ?Stage four ? | ? Stage four ?+ ---+ ---+ -------+| ?<15 (or dialysis) ? ?| ?Stage five ? | ? Stage five ?+ ---+ ---+ -------+ *Each stage assumes the associated GFR level has been in effect for at least three months. ?Stages 1 to 5, with or without kidney disease, indicate chronic kidney disease. Notes: Determination of stages one and two (with eGFR >59mL/min/1.73 m2) requires estimation of kidney damage for at least three months as defined by structural or functional abnormalities of the kidney, manifested by either:Pathological abnormalities or Markers of kidney damage (including abnormalities in the composition of the blood or urine or abnormalities in imaging tests). Lab Interpretation (test code = 15554-6) [facility] ([id number][facility]2020-04-17 17:53:00* Test Item Value Reference Range Interpretation Comme nts NA (test code = 5117649373) 141 mmol/L 135-145 K (test code = 9490705573) 4.3 mmol/L 3.5-5 CL (test code = 6691743826) 105 mmol/L 98-108 CO2 TOTAL (test code = 5009904664) 29 mmol/L 23-31 AGAP (test code = 1145237799) 2-16 BUN (test code = 7836371901) 10 mg/dL 7-23 GLUCOSE (test code = 0426823252) 123 mg/dL 70-110 H CREATININE (test code = 0562505919) 0.85 mg/dL 0.6-1.25 TOTAL BILI (test code = 6127985033) 0.4 mg/dL 0.1-1.1 CALCIUM (test code = 5236763010) 8.6 mg/dL 8.6-10.6 T PROTEIN (test code = 4337655932) 7.0 g/dL 6.3-8.2 ALBUMIN (test code = 8803327639) 3.9 g/dL 3.5-5 ALK PHOS (test code = 3507904013) 62 U/L 34-122 ALTv (test code = 1742-6) 17 U/L 5-50 AST(SGOT) (test code = 4293339883) 19 U/L 13-40 eGFR Calculation (Non-) (test code = 0905238976) mL/min/1.73m2 eGFR Calculation () (test code = 3073694162) mL/min/1.73m2 BEVERLY (test code = BEVERLY) Association of Glomerular Filtration Rate (GFR) and Staging of Kidney Disease* + --+ --+ ------+| GFR (mL/min/1.73 m2) ?| With Kidney Damage ?| ?Without Kidney Damage+ --------+ --------+ +| ?>90 ?| ?Stage one ?| ? Normal ?+ ---+ ---+ -------+| ?60-89 ?| ?Stage two ?| ? Decreased GFR ? + --+ --+ ------+| ?30-59 ?| ?Stage three ?| ? Stage three ? + --+ --+ ------+| ?15-29 ?| ?Stage four ? | ? Stage four ?+ ---+ ---+ -------+| ?<15 (or dialysis) ? ?| ?Stage five ? | ? Stage five ?+ ---+ ---+ -------+ *Each stage assumes the associated GFR level has been in effect for at least three months. ?Stages 1 to 5, with or without kidney disease, indicate chronic kidney disease. Notes: Determination of stages one and two (with eGFR >59mL/min/1.73 m2) requires estimation of kidney damage for at least three months as defined by structural or functional abnormalities of the kidney, manifested by either:Pathological abnormalities or Markers of kidney damage (including abnormalities in the composition of the blood or urine or abnormalities in imaging tests). Lab Interpretation (test code = 98983-1) Abnormal [facility]. METABOLIC PANEL ([id number])2020-04-17 17:53:00* Test Item Value Reference Range Interpretation Comme nts NA (test code = 2534510246) 141 mmol/L 135-145 K (test code = 9467332567) 4.3 mmol/L 3.5-5 CL (test code = 9504343611) 105 mmol/L 98-108 CO2 TOTAL (test code = 4826519566) 29 mmol/L 23-31 AGAP (test code = 4459211308) 2-16 BUN (test code = 3924953077) 10 mg/dL 7-23 GLUCOSE (test code = 2818058347) 123 mg/dL 70-110 H CREATININE (test code = 6339268385) 0.85 mg/dL 0.6-1.25 TOTAL BILI (test code = 6196220033) 0.4 mg/dL 0.1-1.1 CALCIUM (test code = 0213874947) 8.6 mg/dL 8.6-10.6 T PROTEIN (test code = 8475884118) 7.0 g/dL 6.3-8.2 ALBUMIN (test code = 0495351130) 3.9 g/dL 3.5-5 ALK PHOS (test code = 2716774595) 62 U/L 34-122 ALTv (test code = 1742-6) 17 U/L 5-50 AST(SGOT) (test code = 4034915096) 19 U/L 13-40 eGFR Calculation (Non-) (test code = 7699574187) mL/min/1.73m2 eGFR Calculation () (test code = 3241009206) mL/min/1.73m2 BEVERLY (test code = BEVERLY) Association of Glomerular Filtration Rate (GFR) and Staging of Kidney Disease* + --+ --+ ------+| GFR (mL/min/1.73 m2) ?| With Kidney Damage ?| ?Without Kidney Damage+ --------+ --------+ +| ?>90 ?| ?Stage one ?| ? Normal ?+ ---+ ---+ -------+| ?60-89 ?| ?Stage two ?| ? Decreased GFR ? + --+ --+ ------+| ?30-59 ?| ?Stage three ?| ? Stage three ? + --+ --+ ------+| ?15-29 ?| ?Stage four ? | ? Stage four ?+ ---+ ---+ -------+| ?<15 (or dialysis) ? ?| ?Stage five ? | ? Stage five ?+ ---+ ---+ -------+ *Each stage assumes the associated GFR level has been in effect for at least three months. ?Stages 1 to 5, with or without kidney disease, indicate chronic kidney disease. Notes: Determination of stages one and two (with eGFR >59mL/min/1.73 m2) requires estimation of kidney damage for at least three months as defined by structural or functional abnormalities of the kidney, manifested by either:Pathological abnormalities or Markers of kidney damage (including abnormalities in the composition of the blood or urine or abnormalities in imaging tests). Lab Interpretation (test code = 59711-4) [facility] ([id number])2020-04-17 17:53:00* Test Item Value Reference Range Interpretation Comme nts NA (test code = 0324259343) 141 mmol/L 135-145 K (test code = 7445394558) 4.3 mmol/L 3.5-5 CL (test code = 0436948628) 105 mmol/L 98-108 CO2 TOTAL (test code = 4819745903) 29 mmol/L 23-31 AGAP (test code = 9878392237) 2-16 BUN (test code = 6131769126) 10 mg/dL 7-23 GLUCOSE (test code = 9631716890) 123 mg/dL 70-110 H CREATININE (test code = 4239460857) 0.85 mg/dL 0.6-1.25 TOTAL BILI (test code = 6497964337) 0.4 mg/dL 0.1-1.1 CALCIUM (test code = 4630675054) 8.6 mg/dL 8.6-10.6 T PROTEIN (test code = 4809175296) 7.0 g/dL 6.3-8.2 ALBUMIN (test code = 7045424429) 3.9 g/dL 3.5-5 ALK PHOS (test code = 1253816413) 62 U/L 34-122 ALTv (test code = 1742-6) 17 U/L 5-50 AST(SGOT) (test code = 7539707226) 19 U/L 13-40 eGFR Calculation (Non-) (test code = 9622423800) mL/min/1.73m2 eGFR Calculation () (test code = 4556040419) mL/min/1.73m2 BEVERLY (test code = BEVERLY) Association of Glomerular Filtration Rate (GFR) and Staging of Kidney Disease* + --+ --+ ------+| GFR (mL/min/1.73 m2) ?| With Kidney Damage ?| ?Without Kidney Damage+ --------+ --------+ +| ?>90 ?| ?Stage one ?| ? Normal ?+ ---+ ---+ -------+| ?60-89 ?| ?Stage two ?| ? Decreased GFR ? + --+ --+ ------+| ?30-59 ?| ?Stage three ?| ? Stage three ? + --+ --+ ------+| ?15-29 ?| ?Stage four ? | ? Stage four ?+ ---+ ---+ -------+| ?<15 (or dialysis) ? ?| ?Stage five ? | ? Stage five ?+ ---+ ---+ -------+ *Each stage assumes the associated GFR level has been in effect for at least three months. ?Stages 1 to 5, with or without kidney disease, indicate chronic kidney disease. Notes: Determination of stages one and two (with eGFR >59mL/min/1.73 m2) requires estimation of kidney damage for at least three months as defined by structural or functional abnormalities of the kidney, manifested by either:Pathological abnormalities or Markers of kidney damage (including abnormalities in the composition of the blood or urine or abnormalities in imaging tests). Lab Interpretation (test code = 32163-7) Abnormal [facility]. METABOLIC PANEL ([id number])2020-04-17 17:53:00* Test Item Value Reference Range Interpretation Comme nts NA (test code = 7467256889) 141 mmol/L 135-145 K (test code = 0438663555) 4.3 mmol/L 3.5-5 CL (test code = 0677206716) 105 mmol/L 98-108 CO2 TOTAL (test code = 8125726432) 29 mmol/L 23-31 AGAP (test code = 9983733366) 2-16 BUN (test code = 1250139040) 10 mg/dL 7-23 GLUCOSE (test code = 8423694460) 123 mg/dL 70-110 H CREATININE (test code = 9214354481) 0.85 mg/dL 0.6-1.25 TOTAL BILI (test code = 7268138116) 0.4 mg/dL 0.1-1.1 CALCIUM (test code = 8243101444) 8.6 mg/dL 8.6-10.6 T PROTEIN (test code = 7006441912) 7.0 g/dL 6.3-8.2 ALBUMIN (test code = 1408796463) 3.9 g/dL 3.5-5 ALK PHOS (test code = 4695577500) 62 U/L 34-122 ALTv (test code = 1742-6) 17 U/L 5-50 AST(SGOT) (test code = 2706253539) 19 U/L 13-40 eGFR Calculation (Non-) (test code = 0186768262) mL/min/1.73m2 eGFR Calculation () (test code = 2385524477) mL/min/1.73m2 BEVERLY (test code = BEVERLY) Association of Glomerular Filtration Rate (GFR) and Staging of Kidney Disease* + --+ --+ ------+| GFR (mL/min/1.73 m2) ?| With Kidney Damage ?| ?Without Kidney Damage+ --------+ --------+ +| ?>90 ?| ?Stage one ?| ? Normal ?+ ---+ ---+ -------+| ?60-89 ?| ?Stage two ?| ? Decreased GFR ? + --+ --+ ------+| ?30-59 ?| ?Stage three ?| ? Stage three ? + --+ --+ ------+| ?15-29 ?| ?Stage four ? | ? Stage four ?+ ---+ ---+ -------+| ?<15 (or dialysis) ? ?| ?Stage five ? | ? Stage five ?+ ---+ ---+ -------+ *Each stage assumes the associated GFR level has been in effect for at least three months. ?Stages 1 to 5, with or without kidney disease, indicate chronic kidney disease. Notes: Determination of stages one and two (with eGFR >59mL/min/1.73 m2) requires estimation of kidney damage for at least three months as defined by structural or functional abnormalities of the kidney, manifested by either:Pathological abnormalities or Markers of kidney damage (including abnormalities in the composition of the blood or urine or abnormalities in imaging tests). Lab Interpretation (test code = 42155-4) Abnormal [facility]. METABOLIC PANEL ([id number])2020-04-17 17:53:00* Test Item Value Reference Range Interpretation Comme nts NA (test code = 9915098898) 141 mmol/L 135-145 K (test code = 6608161645) 4.3 mmol/L 3.5-5 CL (test code = 2827521764) 105 mmol/L 98-108 CO2 TOTAL (test code = 1672265477) 29 mmol/L 23-31 AGAP (test code = 9947593152) 2-16 BUN (test code = 9006447735) 10 mg/dL 7-23 GLUCOSE (test code = 7539071687) 123 mg/dL 70-110 H CREATININE (test code = 2128576631) 0.85 mg/dL 0.6-1.25 TOTAL BILI (test code = 4954538618) 0.4 mg/dL 0.1-1.1 CALCIUM (test code = 0181177108) 8.6 mg/dL 8.6-10.6 T PROTEIN (test code = 6560808024) 7.0 g/dL 6.3-8.2 ALBUMIN (test code = 8537889127) 3.9 g/dL 3.5-5 ALK PHOS (test code = 2433701785) 62 U/L 34-122 ALTv (test code = 1742-6) 17 U/L 5-50 AST(SGOT) (test code = 0164752735) 19 U/L 13-40 eGFR Calculation (Non-) (test code = 2343894126) mL/min/1.73m2 eGFR Calculation () (test code = 9779987695) mL/min/1.73m2 BEVERLY (test code = BEVERLY) Association of Glomerular Filtration Rate (GFR) and Staging of Kidney Disease* + --+ --+ ------+| GFR (mL/min/1.73 m2) ?| With Kidney Damage ?| ?Without Kidney Damage+ --------+ --------+ +| ?>90 ?| ?Stage one ?| ? Normal ?+ ---+ ---+ -------+| ?60-89 ?| ?Stage two ?| ? Decreased GFR ? + --+ --+ ------+| ?30-59 ?| ?Stage three ?| ? Stage three ? + --+ --+ ------+| ?15-29 ?| ?Stage four ? | ? Stage four ?+ ---+ ---+ -------+| ?<15 (or dialysis) ? ?| ?Stage five ? | ? Stage five ?+ ---+ ---+ -------+ *Each stage assumes the associated GFR level has been in effect for at least three months. ?Stages 1 to 5, with or without kidney disease, indicate chronic kidney disease. Notes: Determination of stages one and two (with eGFR >59mL/min/1.73 m2) requires estimation of kidney damage for at least three months as defined by structural or functional abnormalities of the kidney, manifested by either:Pathological abnormalities or Markers of kidney damage (including abnormalities in the composition of the blood or urine or abnormalities in imaging tests). Lab Interpretation (test code = 03724-4) Abnormal [facility]. METABOLIC PANEL ([id number])2020-04-17 17:53:00* Test Item Value Reference Range Interpretation Comme nts NA (test code = 5334926030) 141 mmol/L 135-145 K (test code = 5376604060) 4.3 mmol/L 3.5-5 CL (test code = 9182652028) 105 mmol/L 98-108 CO2 TOTAL (test code = 5018702499) 29 mmol/L 23-31 AGAP (test code = 0195006298) 2-16 BUN (test code = 5298269590) 10 mg/dL 7-23 GLUCOSE (test code = 0103799587) 123 mg/dL 70-110 H CREATININE (test code = 0636943201) 0.85 mg/dL 0.6-1.25 TOTAL BILI (test code = 3858529217) 0.4 mg/dL 0.1-1.1 CALCIUM (test code = 0791726210) 8.6 mg/dL 8.6-10.6 T PROTEIN (test code = 7860979438) 7.0 g/dL 6.3-8.2 ALBUMIN (test code = 8239534567) 3.9 g/dL 3.5-5 ALK PHOS (test code = 5974731015) 62 U/L 34-122 ALTv (test code = 1742-6) 17 U/L 5-50 AST(SGOT) (test code = 0161380767) 19 U/L 13-40 eGFR Calculation (Non-) (test code = 6801467263) mL/min/1.73m2 eGFR Calculation () (test code = 5942167347) mL/min/1.73m2 BEVERLY (test code = BEVERLY) Association of Glomerular Filtration Rate (GFR) and Staging of Kidney Disease* + --+ --+ ------+| GFR (mL/min/1.73 m2) ?| With Kidney Damage ?| ?Without Kidney Damage+ --------+ --------+ +| ?>90 ?| ?Stage one ?| ? Normal ?+ ---+ ---+ -------+| ?60-89 ?| ?Stage two ?| ? Decreased GFR ? + --+ --+ ------+| ?30-59 ?| ?Stage three ?| ? Stage three ? + --+ --+ ------+| ?15-29 ?| ?Stage four ? | ? Stage four ?+ ---+ ---+ -------+| ?<15 (or dialysis) ? ?| ?Stage five ? | ? Stage five ?+ ---+ ---+ -------+ *Each stage assumes the associated GFR level has been in effect for at least three months. ?Stages 1 to 5, with or without kidney disease, indicate chronic kidney disease. Notes: Determination of stages one and two (with eGFR >59mL/min/1.73 m2) requires estimation of kidney damage for at least three months as defined by structural or functional abnormalities of the kidney, manifested by either:Pathological abnormalities or Markers of kidney damage (including abnormalities in the composition of the blood or urine or abnormalities in imaging tests). Lab Interpretation (test code = 29746-2) Abnormal [facility]. METABOLIC PANEL ([id number])2020-04-17 17:53:00* Test Item Value Reference Range Interpretation Comme nts NA (test code = 7111795702) 141 mmol/L 135-145 K (test code = 5450583172) 4.3 mmol/L 3.5-5 CL (test code = 7061502366) 105 mmol/L 98-108 CO2 TOTAL (test code = 0326790200) 29 mmol/L 23-31 AGAP (test code = 9921047951) 2-16 BUN (test code = 9703433333) 10 mg/dL 7-23 GLUCOSE (test code = 4029471378) 123 mg/dL 70-110 H CREATININE (test code = 3106649592) 0.85 mg/dL 0.6-1.25 TOTAL BILI (test code = 5735113068) 0.4 mg/dL 0.1-1.1 CALCIUM (test code = 7770010976) 8.6 mg/dL 8.6-10.6 T PROTEIN (test code = 8277577234) 7.0 g/dL 6.3-8.2 ALBUMIN (test code = 2503934609) 3.9 g/dL 3.5-5 ALK PHOS (test code = 2826888320) 62 U/L 34-122 ALTv (test code = 1742-6) 17 U/L 5-50 AST(SGOT) (test code = 2362038463) 19 U/L 13-40 eGFR Calculation (Non-) (test code = 4265582670) mL/min/1.73m2 eGFR Calculation () (test code = 5281887372) mL/min/1.73m2 BEVERLY (test code = BEVERLY) Association of Glomerular Filtration Rate (GFR) and Staging of Kidney Disease* + --+ --+ ------+| GFR (mL/min/1.73 m2) ?| With Kidney Damage ?| ?Without Kidney Damage+ --------+ --------+ +| ?>90 ?| ?Stage one ?| ? Normal ?+ ---+ ---+ -------+| ?60-89 ?| ?Stage two ?| ? Decreased GFR ? + --+ --+ ------+| ?30-59 ?| ?Stage three ?| ? Stage three ? + --+ --+ ------+| ?15-29 ?| ?Stage four ? | ? Stage four ?+ ---+ ---+ -------+| ?<15 (or dialysis) ? ?| ?Stage five ? | ? Stage five ?+ ---+ ---+ -------+ *Each stage assumes the associated GFR level has been in effect for at least three months. ?Stages 1 to 5, with or without kidney disease, indicate chronic kidney disease. Notes: Determination of stages one and two (with eGFR >59mL/min/1.73 m2) requires estimation of kidney damage for at least three months as defined by structural or functional abnormalities of the kidney, manifested by either:Pathological abnormalities or Markers of kidney damage (including abnormalities in the composition of the blood or urine or abnormalities in imaging tests). Lab Interpretation (test code = 99839-3) [facility] ([id number])2020-04-17 17:53:00* Test Item Value Reference Range Interpretation Comme nts NA (test code = 0126765221) 141 mmol/L 135-145 K (test code = 6151113293) 4.3 mmol/L 3.5-5 CL (test code = 1305810260) 105 mmol/L 98-108 CO2 TOTAL (test code = 3253365442) 29 mmol/L 23-31 AGAP (test code = 8436368694) 2-16 BUN (test code = 1224483663) 10 mg/dL 7-23 GLUCOSE (test code = 3739819570) 123 mg/dL 70-110 H CREATININE (test code = 2904139032) 0.85 mg/dL 0.6-1.25 TOTAL BILI (test code = 6307382908) 0.4 mg/dL 0.1-1.1 CALCIUM (test code = 5913333328) 8.6 mg/dL 8.6-10.6 T PROTEIN (test code = 8150601451) 7.0 g/dL 6.3-8.2 ALBUMIN (test code = 9488140473) 3.9 g/dL 3.5-5 ALK PHOS (test code = 2172231669) 62 U/L 34-122 ALTv (test code = 1742-6) 17 U/L 5-50 AST(SGOT) (test code = 9824151060) 19 U/L 13-40 eGFR Calculation (Non-) (test code = 1442982729) mL/min/1.73m2 eGFR Calculation () (test code = 8100648575) mL/min/1.73m2 BEVERLY (test code = BEVERLY) Association of Glomerular Filtration Rate (GFR) and Staging of Kidney Disease* + --+ --+ ------+| GFR (mL/min/1.73 m2) ?| With Kidney Damage ?| ?Without Kidney Damage+ --------+ --------+ +| ?>90 ?| ?Stage one ?| ? Normal ?+ ---+ ---+ -------+| ?60-89 ?| ?Stage two ?| ? Decreased GFR ? + --+ --+ ------+| ?30-59 ?| ?Stage three ?| ? Stage three ? + --+ --+ ------+| ?15-29 ?| ?Stage four ? | ? Stage four ?+ ---+ ---+ -------+| ?<15 (or dialysis) ? ?| ?Stage five ? | ? Stage five ?+ ---+ ---+ -------+ *Each stage assumes the associated GFR level has been in effect for at least three months. ?Stages 1 to 5, with or without kidney disease, indicate chronic kidney disease. Notes: Determination of stages one and two (with eGFR >59mL/min/1.73 m2) requires estimation of kidney damage for at least three months as defined by structural or functional abnormalities of the kidney, manifested by either:Pathological abnormalities or Markers of kidney damage (including abnormalities in the composition of the blood or urine or abnormalities in imaging tests). Lab Interpretation (test code = 67259-6) Abnormal [facility]. METABOLIC PANEL ([id number])2020-04-17 17:53:00* Test Item Value Reference Range Interpretation Comme nts NA (test code = 4609991332) 141 mmol/L 135-145 K (test code = 5243748977) 4.3 mmol/L 3.5-5 CL (test code = 8021506001) 105 mmol/L 98-108 CO2 TOTAL (test code = 3463777132) 29 mmol/L 23-31 AGAP (test code = 3531689201) 2-16 BUN (test code = 0114424648) 10 mg/dL 7-23 GLUCOSE (test code = 5069808122) 123 mg/dL 70-110 H CREATININE (test code = 8034451164) 0.85 mg/dL 0.6-1.25 TOTAL BILI (test code = 8923248695) 0.4 mg/dL 0.1-1.1 CALCIUM (test code = 8466349291) 8.6 mg/dL 8.6-10.6 T PROTEIN (test code = 2977441469) 7.0 g/dL 6.3-8.2 ALBUMIN (test code = 2220138993) 3.9 g/dL 3.5-5 ALK PHOS (test code = 2525681691) 62 U/L 34-122 ALTv (test code = 1742-6) 17 U/L 5-50 AST(SGOT) (test code = 4672183421) 19 U/L 13-40 eGFR Calculation (Non-) (test code = 6997877269) mL/min/1.73m2 eGFR Calculation () (test code = 4668426893) mL/min/1.73m2 BEVERLY (test code = BVEERLY) Association of Glomerular Filtration Rate (GFR) and Staging of Kidney Disease* + --+ --+ ------+| GFR (mL/min/1.73 m2) ?| With Kidney Damage ?| ?Without Kidney Damage+ --------+ --------+ +| ?>90 ?| ?Stage one ?| ? Normal ?+ ---+ ---+ -------+| ?60-89 ?| ?Stage two ?| ? Decreased GFR ? + --+ --+ ------+| ?30-59 ?| ?Stage three ?| ? Stage three ? + --+ --+ ------+| ?15-29 ?| ?Stage four ? | ? Stage four ?+ ---+ ---+ -------+| ?<15 (or dialysis) ? ?| ?Stage five ? | ? Stage five ?+ ---+ ---+ -------+ *Each stage assumes the associated GFR level has been in effect for at least three months. ?Stages 1 to 5, with or without kidney disease, indicate chronic kidney disease. Notes: Determination of stages one and two (with eGFR >59mL/min/1.73 m2) requires estimation of kidney damage for at least three months as defined by structural or functional abnormalities of the kidney, manifested by either:Pathological abnormalities or Markers of kidney damage (including abnormalities in the composition of the blood or urine or abnormalities in imaging tests). Lab Interpretation (test code = 91412-3) Abnormal [facility]. METABOLIC PANEL ([id number])2020-04-17 17:53:00* Test Item Value Reference Range Interpretation Comme nts NA (test code = 1697874431) 141 mmol/L 135-145 K (test code = 6319476597) 4.3 mmol/L 3.5-5 CL (test code = 0729968154) 105 mmol/L 98-108 CO2 TOTAL (test code = 6738409574) 29 mmol/L 23-31 AGAP (test code = 4819895255) 2-16 BUN (test code = 1830633104) 10 mg/dL 7-23 GLUCOSE (test code = 2038996921) 123 mg/dL 70-110 H CREATININE (test code = 5185701552) 0.85 mg/dL 0.6-1.25 TOTAL BILI (test code = 5232531127) 0.4 mg/dL 0.1-1.1 CALCIUM (test code = 6005618837) 8.6 mg/dL 8.6-10.6 T PROTEIN (test code = 9377302010) 7.0 g/dL 6.3-8.2 ALBUMIN (test code = 7617024331) 3.9 g/dL 3.5-5 ALK PHOS (test code = 0390515568) 62 U/L 34-122 ALTv (test code = 1742-6) 17 U/L 5-50 AST(SGOT) (test code = 7400644786) 19 U/L 13-40 eGFR Calculation (Non-) (test code = 2093387624) mL/min/1.73m2 eGFR Calculation () (test code = 5798438101) mL/min/1.73m2 BEVERLY (test code = BEVERLY) Association of Glomerular Filtration Rate (GFR) and Staging of Kidney Disease* + --+ --+ ------+| GFR (mL/min/1.73 m2) ?| With Kidney Damage ?| ?Without Kidney Damage+ --------+ --------+ +| ?>90 ?| ?Stage one ?| ? Normal ?+ ---+ ---+ -------+| ?60-89 ?| ?Stage two ?| ? Decreased GFR ? + --+ --+ ------+| ?30-59 ?| ?Stage three ?| ? Stage three ? + --+ --+ ------+| ?15-29 ?| ?Stage four ? | ? Stage four ?+ ---+ ---+ -------+| ?<15 (or dialysis) ? ?| ?Stage five ? | ? Stage five ?+ ---+ ---+ -------+ *Each stage assumes the associated GFR level has been in effect for at least three months. ?Stages 1 to 5, with or without kidney disease, indicate chronic kidney disease. Notes: Determination of stages one and two (with eGFR >59mL/min/1.73 m2) requires estimation of kidney damage for at least three months as defined by structural or functional abnormalities of the kidney, manifested by either:Pathological abnormalities or Markers of kidney damage (including abnormalities in the composition of the blood or urine or abnormalities in imaging tests). Lab Interpretation (test code = 00678-5) Abnormal [facility]. METABOLIC PANEL ([id number])2020-04-17 17:53:00* Test Item Value Reference Range Interpretation Comme nts NA (test code = 1728721514) 141 mmol/L 135-145 K (test code = 5787037997) 4.3 mmol/L 3.5-5 CL (test code = 5080091977) 105 mmol/L 98-108 CO2 TOTAL (test code = 9373492998) 29 mmol/L 23-31 AGAP (test code = 7170991217) 2-16 BUN (test code = 1877775821) 10 mg/dL 7-23 GLUCOSE (test code = 5317447897) 123 mg/dL 70-110 H CREATININE (test code = 2987123041) 0.85 mg/dL 0.6-1.25 TOTAL BILI (test code = 0623376800) 0.4 mg/dL 0.1-1.1 CALCIUM (test code = 2600410612) 8.6 mg/dL 8.6-10.6 T PROTEIN (test code = 8983935690) 7.0 g/dL 6.3-8.2 ALBUMIN (test code = 2606724832) 3.9 g/dL 3.5-5 ALK PHOS (test code = 9235077369) 62 U/L 34-122 ALTv (test code = 1742-6) 17 U/L 5-50 AST(SGOT) (test code = 5491496538) 19 U/L 13-40 eGFR Calculation (Non-) (test code = 1772076390) mL/min/1.73m2 eGFR Calculation () (test code = 0494960093) mL/min/1.73m2 BEVERLY (test code = BEVERLY) Association of Glomerular Filtration Rate (GFR) and Staging of Kidney Disease* + --+ --+ ------+| GFR (mL/min/1.73 m2) ?| With Kidney Damage ?| ?Without Kidney Damage+ --------+ --------+ +| ?>90 ?| ?Stage one ?| ? Normal ?+ ---+ ---+ -------+| ?60-89 ?| ?Stage two ?| ? Decreased GFR ? + --+ --+ ------+| ?30-59 ?| ?Stage three ?| ? Stage three ? + --+ --+ ------+| ?15-29 ?| ?Stage four ? | ? Stage four ?+ ---+ ---+ -------+| ?<15 (or dialysis) ? ?| ?Stage five ? | ? Stage five ?+ ---+ ---+ -------+ *Each stage assumes the associated GFR level has been in effect for at least three months. ?Stages 1 to 5, with or without kidney disease, indicate chronic kidney disease. Notes: Determination of stages one and two (with eGFR >59mL/min/1.73 m2) requires estimation of kidney damage for at least three months as defined by structural or functional abnormalities of the kidney, manifested by either:Pathological abnormalities or Markers of kidney damage (including abnormalities in the composition of the blood or urine or abnormalities in imaging tests). Lab Interpretation (test code = 54672-8) Abnormal [facility]. METABOLIC PANEL ([id number])2020-04-17 17:53:00* Test Item Value Reference Range Interpretation Comme nts NA (test code = 5219300700) 141 mmol/L 135-145 K (test code = 8321028299) 4.3 mmol/L 3.5-5 CL (test code = 9983816528) 105 mmol/L 98-108 CO2 TOTAL (test code = 4924671116) 29 mmol/L 23-31 AGAP (test code = 7830434445) 2-16 BUN (test code = 5882396028) 10 mg/dL 7-23 GLUCOSE (test code = 3440528974) 123 mg/dL 70-110 H CREATININE (test code = 0073645426) 0.85 mg/dL 0.6-1.25 TOTAL BILI (test code = 9188836815) 0.4 mg/dL 0.1-1.1 CALCIUM (test code = 6345775243) 8.6 mg/dL 8.6-10.6 T PROTEIN (test code = 7698043875) 7.0 g/dL 6.3-8.2 ALBUMIN (test code = 6319969239) 3.9 g/dL 3.5-5 ALK PHOS (test code = 5504664707) 62 U/L 34-122 ALTv (test code = 1742-6) 17 U/L 5-50 AST(SGOT) (test code = 6416782678) 19 U/L 13-40 eGFR Calculation (Non-) (test code = 1652930014) mL/min/1.73m2 eGFR Calculation () (test code = 0345958921) mL/min/1.73m2 BEVERLY (test code = BEVERLY) Association of Glomerular Filtration Rate (GFR) and Staging of Kidney Disease* + --+ --+ ------+| GFR (mL/min/1.73 m2) ?| With Kidney Damage ?| ?Without Kidney Damage+ --------+ --------+ +| ?>90 ?| ?Stage one ?| ? Normal ?+ ---+ ---+ -------+| ?60-89 ?| ?Stage two ?| ? Decreased GFR ? + --+ --+ ------+| ?30-59 ?| ?Stage three ?| ? Stage three ? + --+ --+ ------+| ?15-29 ?| ?Stage four ? | ? Stage four ?+ ---+ ---+ -------+| ?<15 (or dialysis) ? ?| ?Stage five ? | ? Stage five ?+ ---+ ---+ -------+ *Each stage assumes the associated GFR level has been in effect for at least three months. ?Stages 1 to 5, with or without kidney disease, indicate chronic kidney disease. Notes: Determination of stages one and two (with eGFR >59mL/min/1.73 m2) requires estimation of kidney damage for at least three months as defined by structural or functional abnormalities of the kidney, manifested by either:Pathological abnormalities or Markers of kidney damage (including abnormalities in the composition of the blood or urine or abnormalities in imaging tests). Lab Interpretation (test code = 01146-8) Abnormal [facility]. METABOLIC PANEL ([id number])2020-04-17 17:53:00* Test Item Value Reference Range Interpretation Comme nts NA (test code = 4640725707) 141 mmol/L 135-145 K (test code = 2558772620) 4.3 mmol/L 3.5-5 CL (test code = 3592202615) 105 mmol/L 98-108 CO2 TOTAL (test code = 3432782973) 29 mmol/L 23-31 AGAP (test code = 1139341796) 2-16 BUN (test code = 1231212277) 10 mg/dL 7-23 GLUCOSE (test code = 5784959162) 123 mg/dL 70-110 H CREATININE (test code = 5611313361) 0.85 mg/dL 0.6-1.25 TOTAL BILI (test code = 5830842222) 0.4 mg/dL 0.1-1.1 CALCIUM (test code = 3416395663) 8.6 mg/dL 8.6-10.6 T PROTEIN (test code = 0140896000) 7.0 g/dL 6.3-8.2 ALBUMIN (test code = 1423246651) 3.9 g/dL 3.5-5 ALK PHOS (test code = 8642958969) 62 U/L 34-122 ALTv (test code = 1742-6) 17 U/L 5-50 AST(SGOT) (test code = 6480368107) 19 U/L 13-40 eGFR Calculation (Non-) (test code = 5971518147) mL/min/1.73m2 eGFR Calculation () (test code = 3644111973) mL/min/1.73m2 BEVERLY (test code = BEVERLY) Association of Glomerular Filtration Rate (GFR) and Staging of Kidney Disease* + --+ --+ ------+| GFR (mL/min/1.73 m2) ?| With Kidney Damage ?| ?Without Kidney Damage+ --------+ --------+ +| ?>90 ?| ?Stage one ?| ? Normal ?+ ---+ ---+ -------+| ?60-89 ?| ?Stage two ?| ? Decreased GFR ? + --+ --+ ------+| ?30-59 ?| ?Stage three ?| ? Stage three ? + --+ --+ ------+| ?15-29 ?| ?Stage four ? | ? Stage four ?+ ---+ ---+ -------+| ?<15 (or dialysis) ? ?| ?Stage five ? | ? Stage five ?+ ---+ ---+ -------+ *Each stage assumes the associated GFR level has been in effect for at least three months. ?Stages 1 to 5, with or without kidney disease, indicate chronic kidney disease. Notes: Determination of stages one and two (with eGFR >59mL/min/1.73 m2) requires estimation of kidney damage for at least three months as defined by structural or functional abnormalities of the kidney, manifested by either:Pathological abnormalities or Markers of kidney damage (including abnormalities in the composition of the blood or urine or abnormalities in imaging tests). Lab Interpretation (test code = 34579-7) Abnormal [facility]. METABOLIC PANEL ([id number])2020-04-17 17:53:00* Test Item Value Reference Range Interpretation Comme nts NA (test code = 1353659281) 141 mmol/L 135-145 K (test code = 8174809760) 4.3 mmol/L 3.5-5 CL (test code = 7857560759) 105 mmol/L 98-108 CO2 TOTAL (test code = 8413192478) 29 mmol/L 23-31 AGAP (test code = 2019780013) 2-16 BUN (test code = 9640671658) 10 mg/dL 7-23 GLUCOSE (test code = 7531533297) 123 mg/dL 70-110 H CREATININE (test code = 7030001218) 0.85 mg/dL 0.6-1.25 TOTAL BILI (test code = 2682645195) 0.4 mg/dL 0.1-1.1 CALCIUM (test code = 5948056680) 8.6 mg/dL 8.6-10.6 T PROTEIN (test code = 9101253276) 7.0 g/dL 6.3-8.2 ALBUMIN (test code = 1401237454) 3.9 g/dL 3.5-5 ALK PHOS (test code = 8099397416) 62 U/L 34-122 ALTv (test code = 1742-6) 17 U/L 5-50 AST(SGOT) (test code = 3277777975) 19 U/L 13-40 eGFR Calculation (Non-) (test code = 4688227929) mL/min/1.73m2 eGFR Calculation () (test code = 1939560343) mL/min/1.73m2 BEVERLY (test code = BEVERLY) Association of Glomerular Filtration Rate (GFR) and Staging of Kidney Disease* + --+ --+ ------+| GFR (mL/min/1.73 m2) ?| With Kidney Damage ?| ?Without Kidney Damage+ --------+ --------+ +| ?>90 ?| ?Stage one ?| ? Normal ?+ ---+ ---+ -------+| ?60-89 ?| ?Stage two ?| ? Decreased GFR ? + --+ --+ ------+| ?30-59 ?| ?Stage three ?| ? Stage three ? + --+ --+ ------+| ?15-29 ?| ?Stage four ? | ? Stage four ?+ ---+ ---+ -------+| ?<15 (or dialysis) ? ?| ?Stage five ? | ? Stage five ?+ ---+ ---+ -------+ *Each stage assumes the associated GFR level has been in effect for at least three months. ?Stages 1 to 5, with or without kidney disease, indicate chronic kidney disease. Notes: Determination of stages one and two (with eGFR >59mL/min/1.73 m2) requires estimation of kidney damage for at least three months as defined by structural or functional abnormalities of the kidney, manifested by either:Pathological abnormalities or Markers of kidney damage (including abnormalities in the composition of the blood or urine or abnormalities in imaging tests). Lab Interpretation (test code = 20618-1) Abnormal [facility] METABOLIC PANEL ([id number])2020-04-17 17:53:00* Test Item Value Reference Range Interpretation Comme nts NA (test code = 0079144308) 141 mmol/L 135-145 K (test code = 4081790609) 4.3 mmol/L 3.5-5 CL (test code = 3312833565) 105 mmol/L 98-108 CO2 TOTAL (test code = 9231018092) 29 mmol/L 23-31 AGAP (test code = 2577580688) 2-16 BUN (test code = 1289383343) 10 mg/dL 7-23 GLUCOSE (test code = 0013909906) 123 mg/dL 70-110 H CREATININE (test code = 8731606636) 0.85 mg/dL 0.6-1.25 TOTAL BILI (test code = 3264392847) 0.4 mg/dL 0.1-1.1 CALCIUM (test code = 2105168799) 8.6 mg/dL 8.6-10.6 T PROTEIN (test code = 2448432352) 7.0 g/dL 6.3-8.2 ALBUMIN (test code = 2734014481) 3.9 g/dL 3.5-5 ALK PHOS (test code = 1304473025) 62 U/L 34-122 ALTv (test code = 1742-6) 17 U/L 5-50 AST(SGOT) (test code = 6457767946) 19 U/L 13-40 eGFR Calculation (Non-) (test code = 8654286521) mL/min/1.73m2 eGFR Calculation () (test code = 1595829518) mL/min/1.73m2 BEVERLY (test code = BEVERLY) Association of Glomerular Filtration Rate (GFR) and Staging of Kidney Disease* + --+ --+ ------+| GFR (mL/min/1.73 m2) ?| With Kidney Damage ?| ?Without Kidney Damage+ --------+ --------+ +| ?>90 ?| ?Stage one ?| ? Normal ?+ ---+ ---+ -------+| ?60-89 ?| ?Stage two ?| ? Decreased GFR ? + --+ --+ ------+| ?30-59 ?| ?Stage three ?| ? Stage three ? + --+ --+ ------+| ?15-29 ?| ?Stage four ? | ? Stage four ?+ ---+ ---+ -------+| ?<15 (or dialysis) ? ?| ?Stage five ? | ? Stage five ?+ ---+ ---+ -------+ *Each stage assumes the associated GFR level has been in effect for at least three months. ?Stages 1 to 5, with or without kidney disease, indicate chronic kidney disease. Notes: Determination of stages one and two (with eGFR >59mL/min/1.73 m2) requires estimation of kidney damage for at least three months as defined by structural or functional abnormalities of the kidney, manifested by either:Pathological abnormalities or Markers of kidney damage (including abnormalities in the composition of the blood or urine or abnormalities in imaging tests). Lab Interpretation (test code = 53146-0) Abnormal [facility]. METABOLIC PANEL ([id number])2020-04-17 17:53:00* Test Item Value Reference Range Interpretation Comme nts NA (test code = 5392809334) 141 mmol/L 135-145 K (test code = 8639154235) 4.3 mmol/L 3.5-5 CL (test code = 7661344141) 105 mmol/L 98-108 CO2 TOTAL (test code = 9803108851) 29 mmol/L 23-31 AGAP (test code = 0777226501) 2-16 BUN (test code = 4317470797) 10 mg/dL 7-23 GLUCOSE (test code = 2549155592) 123 mg/dL 70-110 H CREATININE (test code = 6490137896) 0.85 mg/dL 0.6-1.25 TOTAL BILI (test code = 5627543450) 0.4 mg/dL 0.1-1.1 CALCIUM (test code = 1905797163) 8.6 mg/dL 8.6-10.6 T PROTEIN (test code = 2330309047) 7.0 g/dL 6.3-8.2 ALBUMIN (test code = 6050580615) 3.9 g/dL 3.5-5 ALK PHOS (test code = 7482383569) 62 U/L 34-122 ALTv (test code = 1742-6) 17 U/L 5-50 AST(SGOT) (test code = 3148036107) 19 U/L 13-40 eGFR Calculation (Non-) (test code = 4630798270) mL/min/1.73m2 eGFR Calculation () (test code = 3530954965) mL/min/1.73m2 BEVERLY (test code = BEVERLY) Association of Glomerular Filtration Rate (GFR) and Staging of Kidney Disease* + --+ --+ ------+| GFR (mL/min/1.73 m2) ?| With Kidney Damage ?| ?Without Kidney Damage+ --------+ --------+ +| ?>90 ?| ?Stage one ?| ? Normal ?+ ---+ ---+ -------+| ?60-89 ?| ?Stage two ?| ? Decreased GFR ? + --+ --+ ------+| ?30-59 ?| ?Stage three ?| ? Stage three ? + --+ --+ ------+| ?15-29 ?| ?Stage four ? | ? Stage four ?+ ---+ ---+ -------+| ?<15 (or dialysis) ? ?| ?Stage five ? | ? Stage five ?+ ---+ ---+ -------+ *Each stage assumes the associated GFR level has been in effect for at least three months. ?Stages 1 to 5, with or without kidney disease, indicate chronic kidney disease. Notes: Determination of stages one and two (with eGFR >59mL/min/1.73 m2) requires estimation of kidney damage for at least three months as defined by structural or functional abnormalities of the kidney, manifested by either:Pathological abnormalities or Markers of kidney damage (including abnormalities in the composition of the blood or urine or abnormalities in imaging tests). Lab Interpretation (test code = 41680-9) Abnormal [facility]. METABOLIC PANEL ([id number])2020-04-17 17:53:00* Test Item Value Reference Range Interpretation Comme nts NA (test code = 0492117893) 141 mmol/L 135-145 K (test code = 3588537984) 4.3 mmol/L 3.5-5 CL (test code = 9591463053) 105 mmol/L 98-108 CO2 TOTAL (test code = 3989328344) 29 mmol/L 23-31 AGAP (test code = 4046770414) 2-16 BUN (test code = 2101833775) 10 mg/dL 7-23 GLUCOSE (test code = 7263484541) 123 mg/dL 70-110 H CREATININE (test code = 9845435972) 0.85 mg/dL 0.6-1.25 TOTAL BILI (test code = 6516602015) 0.4 mg/dL 0.1-1.1 CALCIUM (test code = 4844636055) 8.6 mg/dL 8.6-10.6 T PROTEIN (test code = 7336697723) 7.0 g/dL 6.3-8.2 ALBUMIN (test code = 4165982419) 3.9 g/dL 3.5-5 ALK PHOS (test code = 6686413254) 62 U/L 34-122 ALTv (test code = 1742-6) 17 U/L 5-50 AST(SGOT) (test code = 0571604598) 19 U/L 13-40 eGFR Calculation (Non-) (test code = 1084825451) mL/min/1.73m2 eGFR Calculation () (test code = 7416254811) mL/min/1.73m2 BEVERLY (test code = BEVERLY) Association of Glomerular Filtration Rate (GFR) and Staging of Kidney Disease* + --+ --+ ------+| GFR (mL/min/1.73 m2) ?| With Kidney Damage ?| ?Without Kidney Damage+ --------+ --------+ +| ?>90 ?| ?Stage one ?| ? Normal ?+ ---+ ---+ -------+| ?60-89 ?| ?Stage two ?| ? Decreased GFR ? + --+ --+ ------+| ?30-59 ?| ?Stage three ?| ? Stage three ? + --+ --+ ------+| ?15-29 ?| ?Stage four ? | ? Stage four ?+ ---+ ---+ -------+| ?<15 (or dialysis) ? ?| ?Stage five ? | ? Stage five ?+ ---+ ---+ -------+ *Each stage assumes the associated GFR level has been in effect for at least three months. ?Stages 1 to 5, with or without kidney disease, indicate chronic kidney disease. Notes: Determination of stages one and two (with eGFR >59mL/min/1.73 m2) requires estimation of kidney damage for at least three months as defined by structural or functional abnormalities of the kidney, manifested by either:Pathological abnormalities or Markers of kidney damage (including abnormalities in the composition of the blood or urine or abnormalities in imaging tests). Lab Interpretation (test code = 71354-0) Abnormal [facility]. METABOLIC PANEL ([id number])2020-04-17 17:53:00* Test Item Value Reference Range Interpretation Comme nts NA (test code = 7726049322) 141 mmol/L 135-145 K (test code = 9502959108) 4.3 mmol/L 3.5-5 CL (test code = 1959118667) 105 mmol/L 98-108 CO2 TOTAL (test code = 1383207860) 29 mmol/L 23-31 AGAP (test code = 6048576066) 2-16 BUN (test code = 1070413668) 10 mg/dL 7-23 GLUCOSE (test code = 7959435003) 123 mg/dL 70-110 H CREATININE (test code = 5051637937) 0.85 mg/dL 0.6-1.25 TOTAL BILI (test code = 9916270567) 0.4 mg/dL 0.1-1.1 CALCIUM (test code = 9182311334) 8.6 mg/dL 8.6-10.6 T PROTEIN (test code = 4574443753) 7.0 g/dL 6.3-8.2 ALBUMIN (test code = 6643786144) 3.9 g/dL 3.5-5 ALK PHOS (test code = 3216927292) 62 U/L 34-122 ALTv (test code = 1742-6) 17 U/L 5-50 AST(SGOT) (test code = 1158889492) 19 U/L 13-40 eGFR Calculation (Non-) (test code = 3774207469) mL/min/1.73m2 eGFR Calculation () (test code = 9950029336) mL/min/1.73m2 BEVERLY (test code = BEVERLY) Association of Glomerular Filtration Rate (GFR) and Staging of Kidney Disease* + --+ --+ ------+| GFR (mL/min/1.73 m2) ?| With Kidney Damage ?| ?Without Kidney Damage+ --------+ --------+ +| ?>90 ?| ?Stage one ?| ? Normal ?+ ---+ ---+ -------+| ?60-89 ?| ?Stage two ?| ? Decreased GFR ? + --+ --+ ------+| ?30-59 ?| ?Stage three ?| ? Stage three ? + --+ --+ ------+| ?15-29 ?| ?Stage four ? | ? Stage four ?+ ---+ ---+ -------+| ?<15 (or dialysis) ? ?| ?Stage five ? | ? Stage five ?+ ---+ ---+ -------+ *Each stage assumes the associated GFR level has been in effect for at least three months. ?Stages 1 to 5, with or without kidney disease, indicate chronic kidney disease. Notes: Determination of stages one and two (with eGFR >59mL/min/1.73 m2) requires estimation of kidney damage for at least three months as defined by structural or functional abnormalities of the kidney, manifested by either:Pathological abnormalities or Markers of kidney damage (including abnormalities in the composition of the blood or urine or abnormalities in imaging tests). Lab Interpretation (test code = 48461-4) Abnormal [facility]. METABOLIC PANEL ([id number])2020-04-17 17:53:00* Test Item Value Reference Range Interpretation Comme nts NA (test code = 2555310997) 141 mmol/L 135-145 K (test code = 1594586942) 4.3 mmol/L 3.5-5 CL (test code = 9124166012) 105 mmol/L 98-108 CO2 TOTAL (test code = 4347320680) 29 mmol/L 23-31 AGAP (test code = 5815897921) 2-16 BUN (test code = 8348965458) 10 mg/dL 7-23 GLUCOSE (test code = 3491183897) 123 mg/dL 70-110 H CREATININE (test code = 5312373642) 0.85 mg/dL 0.6-1.25 TOTAL BILI (test code = 5729382912) 0.4 mg/dL 0.1-1.1 CALCIUM (test code = 6653276536) 8.6 mg/dL 8.6-10.6 T PROTEIN (test code = 6007981646) 7.0 g/dL 6.3-8.2 ALBUMIN (test code = 9754630561) 3.9 g/dL 3.5-5 ALK PHOS (test code = 0284197151) 62 U/L 34-122 ALTv (test code = 1742-6) 17 U/L 5-50 AST(SGOT) (test code = 5459052790) 19 U/L 13-40 eGFR Calculation (Non-) (test code = 9314071572) mL/min/1.73m2 eGFR Calculation () (test code = 6172188610) mL/min/1.73m2 BEVERLY (test code = BEVERLY) Association of Glomerular Filtration Rate (GFR) and Staging of Kidney Disease* + --+ --+ ------+| GFR (mL/min/1.73 m2) ?| With Kidney Damage ?| ?Without Kidney Damage+ --------+ --------+ +| ?>90 ?| ?Stage one ?| ? Normal ?+ ---+ ---+ -------+| ?60-89 ?| ?Stage two ?| ? Decreased GFR ? + --+ --+ ------+| ?30-59 ?| ?Stage three ?| ? Stage three ? + --+ --+ ------+| ?15-29 ?| ?Stage four ? | ? Stage four ?+ ---+ ---+ -------+| ?<15 (or dialysis) ? ?| ?Stage five ? | ? Stage five ?+ ---+ ---+ -------+ *Each stage assumes the associated GFR level has been in effect for at least three months. ?Stages 1 to 5, with or without kidney disease, indicate chronic kidney disease. Notes: Determination of stages one and two (with eGFR >59mL/min/1.73 m2) requires estimation of kidney damage for at least three months as defined by structural or functional abnormalities of the kidney, manifested by either:Pathological abnormalities or Markers of kidney damage (including abnormalities in the composition of the blood or urine or abnormalities in imaging tests). Lab Interpretation (test code = 13431-3) [facility][id number][facility]2020-04-17 17:53:00* Test Item Value Reference Range Interpretation Comme nts NA (test code = 4647321356) 141 mmol/L 135-145 K (test code = 7940816645) 4.3 mmol/L 3.5-5 CL (test code = 9847942037) 105 mmol/L 98-108 CO2 TOTAL (test code = 9404758998) 29 mmol/L 23-31 AGAP (test code = 3440371806) 2-16 BUN (test code = 2842304723) 10 mg/dL 7-23 GLUCOSE (test code = 9634496043) 123 mg/dL 70-110 H CREATININE (test code = 4970222862) 0.85 mg/dL 0.6-1.25 TOTAL BILI (test code = 6041657500) 0.4 mg/dL 0.1-1.1 CALCIUM (test code = 8034956344) 8.6 mg/dL 8.6-10.6 T PROTEIN (test code = 8059661488) 7.0 g/dL 6.3-8.2 ALBUMIN (test code = 3892433189) 3.9 g/dL 3.5-5 ALK PHOS (test code = 5147808094) 62 U/L 34-122 ALTv (test code = 1742-6) 17 U/L 5-50 AST(SGOT) (test code = 1076187139) 19 U/L 13-40 eGFR Calculation (Non-) (test code = 3532263219) mL/min/1.73m2 eGFR Calculation () (test code = 3271934303) mL/min/1.73m2 BEVERLY (test code = BEVERLY) Association of Glomerular Filtration Rate (GFR) and Staging of Kidney Disease* + --+ --+ ------+| GFR (mL/min/1.73 m2) ?| With Kidney Damage ?| ?Without Kidney Damage+ --------+ --------+ +| ?>90 ?| ?Stage one ?| ? Normal ?+ ---+ ---+ -------+| ?60-89 ?| ?Stage two ?| ? Decreased GFR ? + --+ --+ ------+| ?30-59 ?| ?Stage three ?| ? Stage three ? + --+ --+ ------+| ?15-29 ?| ?Stage four ? | ? Stage four ?+ ---+ ---+ -------+| ?<15 (or dialysis) ? ?| ?Stage five ? | ? Stage five ?+ ---+ ---+ -------+ *Each stage assumes the associated GFR level has been in effect for at least three months. ?Stages 1 to 5, with or without kidney disease, indicate chronic kidney disease. Notes: Determination of stages one and two (with eGFR >59mL/min/1.73 m2) requires estimation of kidney damage for at least three months as defined by structural or functional abnormalities of the kidney, manifested by either:Pathological abnormalities or Markers of kidney damage (including abnormalities in the composition of the blood or urine or abnormalities in imaging tests). Lab Interpretation (test code = 37026-4) [facility][id number][facility]2020-04-17 17:53:00* Test Item Value Reference Range Interpretation Comme nts NA (test code = 7091242825) 141 mmol/L 135-145 K (test code = 2017750091) 4.3 mmol/L 3.5-5 CL (test code = 9480099185) 105 mmol/L 98-108 CO2 TOTAL (test code = 3927728843) 29 mmol/L 23-31 AGAP (test code = 0659992498) 2-16 BUN (test code = 3099305491) 10 mg/dL 7-23 GLUCOSE (test code = 4912447338) 123 mg/dL 70-110 H CREATININE (test code = 7406192458) 0.85 mg/dL 0.6-1.25 TOTAL BILI (test code = 8180552757) 0.4 mg/dL 0.1-1.1 CALCIUM (test code = 5348202714) 8.6 mg/dL 8.6-10.6 T PROTEIN (test code = 5395710308) 7.0 g/dL 6.3-8.2 ALBUMIN (test code = 1208823925) 3.9 g/dL 3.5-5 ALK PHOS (test code = 9201434592) 62 U/L 34-122 ALTv (test code = 1742-6) 17 U/L 5-50 AST(SGOT) (test code = 8353554026) 19 U/L 13-40 eGFR Calculation (Non-) (test code = 0173549603) mL/min/1.73m2 eGFR Calculation () (test code = 1421866047) mL/min/1.73m2 BEVERLY (test code = BEVERLY) Association of Glomerular Filtration Rate (GFR) and Staging of Kidney Disease* + --+ --+ ------+| GFR (mL/min/1.73 m2) ?| With Kidney Damage ?| ?Without Kidney Damage+ --------+ --------+ +| ?>90 ?| ?Stage one ?| ? Normal ?+ ---+ ---+ -------+| ?60-89 ?| ?Stage two ?| ? Decreased GFR ? + --+ --+ ------+| ?30-59 ?| ?Stage three ?| ? Stage three ? + --+ --+ ------+| ?15-29 ?| ?Stage four ? | ? Stage four ?+ ---+ ---+ -------+| ?<15 (or dialysis) ? ?| ?Stage five ? | ? Stage five ?+ ---+ ---+ -------+ *Each stage assumes the associated GFR level has been in effect for at least three months. ?Stages 1 to 5, with or without kidney disease, indicate chronic kidney disease. Notes: Determination of stages one and two (with eGFR >59mL/min/1.73 m2) requires estimation of kidney damage for at least three months as defined by structural or functional abnormalities of the kidney, manifested by either:Pathological abnormalities or Markers of kidney damage (including abnormalities in the composition of the blood or urine or abnormalities in imaging tests). Lab Interpretation (test code = 50863-6) Abnormal [facility]. METABOLIC PANEL ([id number])2020-04-17 17:53:00* Test Item Value Reference Range Interpretation Comme nts NA (test code = 3343716359) 141 mmol/L 135-145 K (test code = 3703120114) 4.3 mmol/L 3.5-5 CL (test code = 9270183398) 105 mmol/L 98-108 CO2 TOTAL (test code = 2798304082) 29 mmol/L 23-31 AGAP (test code = 4594026824) 2-16 BUN (test code = 9074665920) 10 mg/dL 7-23 GLUCOSE (test code = 6497711553) 123 mg/dL 70-110 H CREATININE (test code = 0668411464) 0.85 mg/dL 0.6-1.25 TOTAL BILI (test code = 0770079192) 0.4 mg/dL 0.1-1.1 CALCIUM (test code = 6117968711) 8.6 mg/dL 8.6-10.6 T PROTEIN (test code = 3010947749) 7.0 g/dL 6.3-8.2 ALBUMIN (test code = 5094107670) 3.9 g/dL 3.5-5 ALK PHOS (test code = 4492145316) 62 U/L 34-122 ALTv (test code = 1742-6) 17 U/L 5-50 AST(SGOT) (test code = 1655551677) 19 U/L 13-40 eGFR Calculation (Non-) (test code = 4835259810) mL/min/1.73m2 eGFR Calculation () (test code = 5399072942) mL/min/1.73m2 BEVERLY (test code = BEVERLY) Association of Glomerular Filtration Rate (GFR) and Staging of Kidney Disease* + --+ --+ ------+| GFR (mL/min/1.73 m2) ?| With Kidney Damage ?| ?Without Kidney Damage+ --------+ --------+ +| ?>90 ?| ?Stage one ?| ? Normal ?+ ---+ ---+ -------+| ?60-89 ?| ?Stage two ?| ? Decreased GFR ? + --+ --+ ------+| ?30-59 ?| ?Stage three ?| ? Stage three ? + --+ --+ ------+| ?15-29 ?| ?Stage four ? | ? Stage four ?+ ---+ ---+ -------+| ?<15 (or dialysis) ? ?| ?Stage five ? | ? Stage five ?+ ---+ ---+ -------+ *Each stage assumes the associated GFR level has been in effect for at least three months. ?Stages 1 to 5, with or without kidney disease, indicate chronic kidney disease. Notes: Determination of stages one and two (with eGFR >59mL/min/1.73 m2) requires estimation of kidney damage for at least three months as defined by structural or functional abnormalities of the kidney, manifested by either:Pathological abnormalities or Markers of kidney damage (including abnormalities in the composition of the blood or urine or abnormalities in imaging tests). Lab Interpretation (test code = 32571-4) [facility][id number])2020-04-17 17:53:00* Test Item Value Reference Range Interpretation Comme nts NA (test code = 3929219191) 141 mmol/L 135-145 K (test code = 0032830479) 4.3 mmol/L 3.5-5 CL (test code = 6626623459) 105 mmol/L 98-108 CO2 TOTAL (test code = 8638764143) 29 mmol/L 23-31 AGAP (test code = 6467605624) 2-16 BUN (test code = 3511718576) 10 mg/dL 7-23 GLUCOSE (test code = 6009139294) 123 mg/dL 70-110 H CREATININE (test code = 7056060747) 0.85 mg/dL 0.6-1.25 TOTAL BILI (test code = 5976566315) 0.4 mg/dL 0.1-1.1 CALCIUM (test code = 3391158309) 8.6 mg/dL 8.6-10.6 T PROTEIN (test code = 9208415337) 7.0 g/dL 6.3-8.2 ALBUMIN (test code = 6517551579) 3.9 g/dL 3.5-5 ALK PHOS (test code = 9989255270) 62 U/L 34-122 ALTv (test code = 1742-6) 17 U/L 5-50 AST(SGOT) (test code = 5854944402) 19 U/L 13-40 eGFR Calculation (Non-) (test code = 6170086384) mL/min/1.73m2 eGFR Calculation () (test code = 8253287935) mL/min/1.73m2 BEVERLY (test code = BEVERLY) Association of Glomerular Filtration Rate (GFR) and Staging of Kidney Disease* + --+ --+ ------+| GFR (mL/min/1.73 m2) ?| With Kidney Damage ?| ?Without Kidney Damage+ --------+ --------+ +| ?>90 ?| ?Stage one ?| ? Normal ?+ ---+ ---+ -------+| ?60-89 ?| ?Stage two ?| ? Decreased GFR ? + --+ --+ ------+| ?30-59 ?| ?Stage three ?| ? Stage three ? + --+ --+ ------+| ?15-29 ?| ?Stage four ? | ? Stage four ?+ ---+ ---+ -------+| ?<15 (or dialysis) ? ?| ?Stage five ? | ? Stage five ?+ ---+ ---+ -------+ *Each stage assumes the associated GFR level has been in effect for at least three months. ?Stages 1 to 5, with or without kidney disease, indicate chronic kidney disease. Notes: Determination of stages one and two (with eGFR >59mL/min/1.73 m2) requires estimation of kidney damage for at least three months as defined by structural or functional abnormalities of the kidney, manifested by either:Pathological abnormalities or Markers of kidney damage (including abnormalities in the composition of the blood or urine or abnormalities in imaging tests). Lab Interpretation (test code = 33969-8) Abnormal [facility]. METABOLIC PANEL ([id number])2020-04-17 17:53:00* Test Item Value Reference Range Interpretation Comme nts NA (test code = 6144962960) 141 mmol/L 135-145 K (test code = 9539740326) 4.3 mmol/L 3.5-5 CL (test code = 4966087223) 105 mmol/L 98-108 CO2 TOTAL (test code = 4196907802) 29 mmol/L 23-31 AGAP (test code = 4795182036) 2-16 BUN (test code = 2223328653) 10 mg/dL 7-23 GLUCOSE (test code = 4822471788) 123 mg/dL 70-110 H CREATININE (test code = 7314795279) 0.85 mg/dL 0.6-1.25 TOTAL BILI (test code = 7177802637) 0.4 mg/dL 0.1-1.1 CALCIUM (test code = 0498904208) 8.6 mg/dL 8.6-10.6 T PROTEIN (test code = 3681804401) 7.0 g/dL 6.3-8.2 ALBUMIN (test code = 6987444443) 3.9 g/dL 3.5-5 ALK PHOS (test code = 2316720863) 62 U/L 34-122 ALTv (test code = 1742-6) 17 U/L 5-50 AST(SGOT) (test code = 8970143442) 19 U/L 13-40 eGFR Calculation (Non-) (test code = 1102900808) mL/min/1.73m2 eGFR Calculation () (test code = 6950042834) mL/min/1.73m2 BEVERLY (test code = BEVERLY) Association of Glomerular Filtration Rate (GFR) and Staging of Kidney Disease* + --+ --+ ------+| GFR (mL/min/1.73 m2) ?| With Kidney Damage ?| ?Without Kidney Damage+ --------+ --------+ +| ?>90 ?| ?Stage one ?| ? Normal ?+ ---+ ---+ -------+| ?60-89 ?| ?Stage two ?| ? Decreased GFR ? + --+ --+ ------+| ?30-59 ?| ?Stage three ?| ? Stage three ? + --+ --+ ------+| ?15-29 ?| ?Stage four ? | ? Stage four ?+ ---+ ---+ -------+| ?<15 (or dialysis) ? ?| ?Stage five ? | ? Stage five ?+ ---+ ---+ -------+ *Each stage assumes the associated GFR level has been in effect for at least three months. ?Stages 1 to 5, with or without kidney disease, indicate chronic kidney disease. Notes: Determination of stages one and two (with eGFR >59mL/min/1.73 m2) requires estimation of kidney damage for at least three months as defined by structural or functional abnormalities of the kidney, manifested by either:Pathological abnormalities or Markers of kidney damage (including abnormalities in the composition of the blood or urine or abnormalities in imaging tests). Lab Interpretation (test code = 07639-1) [facility] ([id number])2020-04-17 17:53:00* Test Item Value Reference Range Interpretation Comme nts NA (test code = 3773761236) 141 mmol/L 135-145 K (test code = 1818550519) 4.3 mmol/L 3.5-5 CL (test code = 6113794825) 105 mmol/L 98-108 CO2 TOTAL (test code = 9710405595) 29 mmol/L 23-31 AGAP (test code = 9649777019) 2-16 BUN (test code = 1965753842) 10 mg/dL 7-23 GLUCOSE (test code = 8540560492) 123 mg/dL 70-110 H CREATININE (test code = 7211267354) 0.85 mg/dL 0.6-1.25 TOTAL BILI (test code = 7795433329) 0.4 mg/dL 0.1-1.1 CALCIUM (test code = 2478239771) 8.6 mg/dL 8.6-10.6 T PROTEIN (test code = 0844221667) 7.0 g/dL 6.3-8.2 ALBUMIN (test code = 0746037353) 3.9 g/dL 3.5-5 ALK PHOS (test code = 9386107762) 62 U/L 34-122 ALTv (test code = 1742-6) 17 U/L 5-50 AST(SGOT) (test code = 4766185804) 19 U/L 13-40 eGFR Calculation (Non-) (test code = 0864830445) mL/min/1.73m2 eGFR Calculation () (test code = 1792918804) mL/min/1.73m2 BEVERLY (test code = BEVERLY) Association of Glomerular Filtration Rate (GFR) and Staging of Kidney Disease* + --+ --+ ------+| GFR (mL/min/1.73 m2) ?| With Kidney Damage ?| ?Without Kidney Damage+ --------+ --------+ +| ?>90 ?| ?Stage one ?| ? Normal ?+ ---+ ---+ -------+| ?60-89 ?| ?Stage two ?| ? Decreased GFR ? + --+ --+ ------+| ?30-59 ?| ?Stage three ?| ? Stage three ? + --+ --+ ------+| ?15-29 ?| ?Stage four ? | ? Stage four ?+ ---+ ---+ -------+| ?<15 (or dialysis) ? ?| ?Stage five ? | ? Stage five ?+ ---+ ---+ -------+ *Each stage assumes the associated GFR level has been in effect for at least three months. ?Stages 1 to 5, with or without kidney disease, indicate chronic kidney disease. Notes: Determination of stages one and two (with eGFR >59mL/min/1.73 m2) requires estimation of kidney damage for at least three months as defined by structural or functional abnormalities of the kidney, manifested by either:Pathological abnormalities or Markers of kidney damage (including abnormalities in the composition of the blood or urine or abnormalities in imaging tests). Lab Interpretation (test code = 25683-4) Abnormal [facility]. METABOLIC PANEL ([id number])2020-04-17 17:53:00* Test Item Value Reference Range Interpretation Comme nts NA (test code = 5989435635) 141 mmol/L 135-145 K (test code = 4891351684) 4.3 mmol/L 3.5-5 CL (test code = 6737333241) 105 mmol/L 98-108 CO2 TOTAL (test code = 8317564648) 29 mmol/L 23-31 AGAP (test code = 7115825307) 2-16 BUN (test code = 8164864976) 10 mg/dL 7-23 GLUCOSE (test code = 9423011499) 123 mg/dL 70-110 H CREATININE (test code = 5818574919) 0.85 mg/dL 0.6-1.25 TOTAL BILI (test code = 4030987567) 0.4 mg/dL 0.1-1.1 CALCIUM (test code = 2167179101) 8.6 mg/dL 8.6-10.6 T PROTEIN (test code = 2015977682) 7.0 g/dL 6.3-8.2 ALBUMIN (test code = 0939283468) 3.9 g/dL 3.5-5 ALK PHOS (test code = 1345206717) 62 U/L 34-122 ALTv (test code = 1742-6) 17 U/L 5-50 AST(SGOT) (test code = 2889980933) 19 U/L 13-40 eGFR Calculation (Non-) (test code = 0261172386) mL/min/1.73m2 eGFR Calculation () (test code = 1679512702) mL/min/1.73m2 BEVERLY (test code = BEVERLY) Association of Glomerular Filtration Rate (GFR) and Staging of Kidney Disease* + --+ --+ ------+| GFR (mL/min/1.73 m2) ?| With Kidney Damage ?| ?Without Kidney Damage+ --------+ --------+ +| ?>90 ?| ?Stage one ?| ? Normal ?+ ---+ ---+ -------+| ?60-89 ?| ?Stage two ?| ? Decreased GFR ? + --+ --+ ------+| ?30-59 ?| ?Stage three ?| ? Stage three ? + --+ --+ ------+| ?15-29 ?| ?Stage four ? | ? Stage four ?+ ---+ ---+ -------+| ?<15 (or dialysis) ? ?| ?Stage five ? | ? Stage five ?+ ---+ ---+ -------+ *Each stage assumes the associated GFR level has been in effect for at least three months. ?Stages 1 to 5, with or without kidney disease, indicate chronic kidney disease. Notes: Determination of stages one and two (with eGFR >59mL/min/1.73 m2) requires estimation of kidney damage for at least three months as defined by structural or functional abnormalities of the kidney, manifested by either:Pathological abnormalities or Markers of kidney damage (including abnormalities in the composition of the blood or urine or abnormalities in imaging tests). Lab Interpretation (test code = 45156-8) Abnormal [facility]. METABOLIC PANEL ([id number])2020-04-17 17:53:00* Test Item Value Reference Range Interpretation Comme nts NA (test code = 0704756072) 141 mmol/L 135-145 K (test code = 4191454720) 4.3 mmol/L 3.5-5 CL (test code = 7751067327) 105 mmol/L 98-108 CO2 TOTAL (test code = 3890593897) 29 mmol/L 23-31 AGAP (test code = 3668599991) 2-16 BUN (test code = 2631320550) 10 mg/dL 7-23 GLUCOSE (test code = 5465496769) 123 mg/dL 70-110 H CREATININE (test code = 0898824559) 0.85 mg/dL 0.6-1.25 TOTAL BILI (test code = 7157122504) 0.4 mg/dL 0.1-1.1 CALCIUM (test code = 0148083602) 8.6 mg/dL 8.6-10.6 T PROTEIN (test code = 4891484734) 7.0 g/dL 6.3-8.2 ALBUMIN (test code = 2223242753) 3.9 g/dL 3.5-5 ALK PHOS (test code = 8777173485) 62 U/L 34-122 ALTv (test code = 1742-6) 17 U/L 5-50 AST(SGOT) (test code = 1074840922) 19 U/L 13-40 eGFR Calculation (Non-) (test code = 3430869553) mL/min/1.73m2 eGFR Calculation () (test code = 4868209912) mL/min/1.73m2 BEVERLY (test code = BEVERLY) Association of Glomerular Filtration Rate (GFR) and Staging of Kidney Disease* + --+ --+ ------+| GFR (mL/min/1.73 m2) ?| With Kidney Damage ?| ?Without Kidney Damage+ --------+ --------+ +| ?>90 ?| ?Stage one ?| ? Normal ?+ ---+ ---+ -------+| ?60-89 ?| ?Stage two ?| ? Decreased GFR ? + --+ --+ ------+| ?30-59 ?| ?Stage three ?| ? Stage three ? + --+ --+ ------+| ?15-29 ?| ?Stage four ? | ? Stage four ?+ ---+ ---+ -------+| ?<15 (or dialysis) ? ?| ?Stage five ? | ? Stage five ?+ ---+ ---+ -------+ *Each stage assumes the associated GFR level has been in effect for at least three months. ?Stages 1 to 5, with or without kidney disease, indicate chronic kidney disease. Notes: Determination of stages one and two (with eGFR >59mL/min/1.73 m2) requires estimation of kidney damage for at least three months as defined by structural or functional abnormalities of the kidney, manifested by either:Pathological abnormalities or Markers of kidney damage (including abnormalities in the composition of the blood or urine or abnormalities in imaging tests). Lab Interpretation (test code = 63531-4) Abnormal [facility]. METABOLIC PANEL ([id number])2020-04-17 17:53:00* Test Item Value Reference Range Interpretation Comme nts NA (test code = 3467120170) 141 mmol/L 135-145 K (test code = 1863346985) 4.3 mmol/L 3.5-5 CL (test code = 1144940720) 105 mmol/L 98-108 CO2 TOTAL (test code = 8566134287) 29 mmol/L 23-31 AGAP (test code = 6911699640) 2-16 BUN (test code = 5465667784) 10 mg/dL 7-23 GLUCOSE (test code = 8639132420) 123 mg/dL 70-110 H CREATININE (test code = 6884960949) 0.85 mg/dL 0.6-1.25 TOTAL BILI (test code = 3287161005) 0.4 mg/dL 0.1-1.1 CALCIUM (test code = 4640458432) 8.6 mg/dL 8.6-10.6 T PROTEIN (test code = 2351893932) 7.0 g/dL 6.3-8.2 ALBUMIN (test code = 1013985868) 3.9 g/dL 3.5-5 ALK PHOS (test code = 2257470431) 62 U/L 34-122 ALTv (test code = 1742-6) 17 U/L 5-50 AST(SGOT) (test code = 0339578119) 19 U/L 13-40 eGFR Calculation (Non-) (test code = 8304523850) mL/min/1.73m2 eGFR Calculation () (test code = 6457136819) mL/min/1.73m2 BEVERLY (test code = BEVERLY) Association of Glomerular Filtration Rate (GFR) and Staging of Kidney Disease* + --+ --+ ------+| GFR (mL/min/1.73 m2) ?| With Kidney Damage ?| ?Without Kidney Damage+ --------+ --------+ +| ?>90 ?| ?Stage one ?| ? Normal ?+ ---+ ---+ -------+| ?60-89 ?| ?Stage two ?| ? Decreased GFR ? + --+ --+ ------+| ?30-59 ?| ?Stage three ?| ? Stage three ? + --+ --+ ------+| ?15-29 ?| ?Stage four ? | ? Stage four ?+ ---+ ---+ -------+| ?<15 (or dialysis) ? ?| ?Stage five ? | ? Stage five ?+ ---+ ---+ -------+ *Each stage assumes the associated GFR level has been in effect for at least three months. ?Stages 1 to 5, with or without kidney disease, indicate chronic kidney disease. Notes: Determination of stages one and two (with eGFR >59mL/min/1.73 m2) requires estimation of kidney damage for at least three months as defined by structural or functional abnormalities of the kidney, manifested by either:Pathological abnormalities or Markers of kidney damage (including abnormalities in the composition of the blood or urine or abnormalities in imaging tests). Lab Interpretation (test code = 94314-4) Abnormal [facility]. METABOLIC PANEL ([id number])2020-04-17 17:53:00* Test Item Value Reference Range Interpretation Comme nts NA (test code = 2541771085) 141 mmol/L 135-145 K (test code = 3665379699) 4.3 mmol/L 3.5-5 CL (test code = 1028188186) 105 mmol/L 98-108 CO2 TOTAL (test code = 1250947819) 29 mmol/L 23-31 AGAP (test code = 7947945333) 2-16 BUN (test code = 2434571700) 10 mg/dL 7-23 GLUCOSE (test code = 9749697503) 123 mg/dL 70-110 H CREATININE (test code = 7804464523) 0.85 mg/dL 0.6-1.25 TOTAL BILI (test code = 0916764215) 0.4 mg/dL 0.1-1.1 CALCIUM (test code = 1018285193) 8.6 mg/dL 8.6-10.6 T PROTEIN (test code = 2911085186) 7.0 g/dL 6.3-8.2 ALBUMIN (test code = 9782785090) 3.9 g/dL 3.5-5 ALK PHOS (test code = 7591016025) 62 U/L 34-122 ALTv (test code = 1742-6) 17 U/L 5-50 AST(SGOT) (test code = 3288098512) 19 U/L 13-40 eGFR Calculation (Non-) (test code = 5784743242) mL/min/1.73m2 eGFR Calculation () (test code = 1145237747) mL/min/1.73m2 BEVERLY (test code = BEVERLY) Association of Glomerular Filtration Rate (GFR) and Staging of Kidney Disease* + --+ --+ ------+| GFR (mL/min/1.73 m2) ?| With Kidney Damage ?| ?Without Kidney Damage+ --------+ --------+ +| ?>90 ?| ?Stage one ?| ? Normal ?+ ---+ ---+ -------+| ?60-89 ?| ?Stage two ?| ? Decreased GFR ? + --+ --+ ------+| ?30-59 ?| ?Stage three ?| ? Stage three ? + --+ --+ ------+| ?15-29 ?| ?Stage four ? | ? Stage four ?+ ---+ ---+ -------+| ?<15 (or dialysis) ? ?| ?Stage five ? | ? Stage five ?+ ---+ ---+ -------+ *Each stage assumes the associated GFR level has been in effect for at least three months. ?Stages 1 to 5, with or without kidney disease, indicate chronic kidney disease. Notes: Determination of stages one and two (with eGFR >59mL/min/1.73 m2) requires estimation of kidney damage for at least three months as defined by structural or functional abnormalities of the kidney, manifested by either:Pathological abnormalities or Markers of kidney damage (including abnormalities in the composition of the blood or urine or abnormalities in imaging tests). Lab Interpretation (test code = 14989-8) Abnormal [facility]. METABOLIC PANEL ([id number])2020-04-17 17:53:00* Test Item Value Reference Range Interpretation Comme nts NA (test code = 9623804492) 141 mmol/L 135-145 K (test code = 5717281380) 4.3 mmol/L 3.5-5 CL (test code = 4278459713) 105 mmol/L 98-108 CO2 TOTAL (test code = 7008150667) 29 mmol/L 23-31 AGAP (test code = 6456763137) 2-16 BUN (test code = 7413233135) 10 mg/dL 7-23 GLUCOSE (test code = 0955592462) 123 mg/dL 70-110 H CREATININE (test code = 3960695656) 0.85 mg/dL 0.6-1.25 TOTAL BILI (test code = 9016026080) 0.4 mg/dL 0.1-1.1 CALCIUM (test code = 2136264609) 8.6 mg/dL 8.6-10.6 T PROTEIN (test code = 7273092375) 7.0 g/dL 6.3-8.2 ALBUMIN (test code = 8058223837) 3.9 g/dL 3.5-5 ALK PHOS (test code = 8797800761) 62 U/L 34-122 ALTv (test code = 1742-6) 17 U/L 5-50 AST(SGOT) (test code = 0236118466) 19 U/L 13-40 eGFR Calculation (Non-) (test code = 2305142059) mL/min/1.73m2 eGFR Calculation () (test code = 4059017598) mL/min/1.73m2 BEVERLY (test code = BEVERLY) Association of Glomerular Filtration Rate (GFR) and Staging of Kidney Disease* + --+ --+ ------+| GFR (mL/min/1.73 m2) ?| With Kidney Damage ?| ?Without Kidney Damage+ --------+ --------+ +| ?>90 ?| ?Stage one ?| ? Normal ?+ ---+ ---+ -------+| ?60-89 ?| ?Stage two ?| ? Decreased GFR ? + --+ --+ ------+| ?30-59 ?| ?Stage three ?| ? Stage three ? + --+ --+ ------+| ?15-29 ?| ?Stage four ? | ? Stage four ?+ ---+ ---+ -------+| ?<15 (or dialysis) ? ?| ?Stage five ? | ? Stage five ?+ ---+ ---+ -------+ *Each stage assumes the associated GFR level has been in effect for at least three months. ?Stages 1 to 5, with or without kidney disease, indicate chronic kidney disease. Notes: Determination of stages one and two (with eGFR >59mL/min/1.73 m2) requires estimation of kidney damage for at least three months as defined by structural or functional abnormalities of the kidney, manifested by either:Pathological abnormalities or Markers of kidney damage (including abnormalities in the composition of the blood or urine or abnormalities in imaging tests). Lab Interpretation (test code = 22051-6) Abnormal [facility]. METABOLIC PANEL ([id number])2020-04-17 17:53:00* Test Item Value Reference Range Interpretation Comme nts NA (test code = 8706375982) 141 mmol/L 135-145 K (test code = 5206967475) 4.3 mmol/L 3.5-5 CL (test code = 5163523523) 105 mmol/L 98-108 CO2 TOTAL (test code = 7959155251) 29 mmol/L 23-31 AGAP (test code = 2445761191) 2-16 BUN (test code = 4736032186) 10 mg/dL 7-23 GLUCOSE (test code = 3102972279) 123 mg/dL 70-110 H CREATININE (test code = 8665282330) 0.85 mg/dL 0.6-1.25 TOTAL BILI (test code = 7629885783) 0.4 mg/dL 0.1-1.1 CALCIUM (test code = 8033143909) 8.6 mg/dL 8.6-10.6 T PROTEIN (test code = 6192619975) 7.0 g/dL 6.3-8.2 ALBUMIN (test code = 7536995491) 3.9 g/dL 3.5-5 ALK PHOS (test code = 6096320579) 62 U/L 34-122 ALTv (test code = 1742-6) 17 U/L 5-50 AST(SGOT) (test code = 8527949341) 19 U/L 13-40 eGFR Calculation (Non-) (test code = 9269435751) mL/min/1.73m2 eGFR Calculation () (test code = 9842223381) mL/min/1.73m2 BEVERLY (test code = BEVERLY) Association of Glomerular Filtration Rate (GFR) and Staging of Kidney Disease* + --+ --+ ------+| GFR (mL/min/1.73 m2) ?| With Kidney Damage ?| ?Without Kidney Damage+ --------+ --------+ +| ?>90 ?| ?Stage one ?| ? Normal ?+ ---+ ---+ -------+| ?60-89 ?| ?Stage two ?| ? Decreased GFR ? + --+ --+ ------+| ?30-59 ?| ?Stage three ?| ? Stage three ? + --+ --+ ------+| ?15-29 ?| ?Stage four ? | ? Stage four ?+ ---+ ---+ -------+| ?<15 (or dialysis) ? ?| ?Stage five ? | ? Stage five ?+ ---+ ---+ -------+ *Each stage assumes the associated GFR level has been in effect for at least three months. ?Stages 1 to 5, with or without kidney disease, indicate chronic kidney disease. Notes: Determination of stages one and two (with eGFR >59mL/min/1.73 m2) requires estimation of kidney damage for at least three months as defined by structural or functional abnormalities of the kidney, manifested by either:Pathological abnormalities or Markers of kidney damage (including abnormalities in the composition of the blood or urine or abnormalities in imaging tests). Lab Interpretation (test code = 85645-0) Abnormal [facility]. METABOLIC PANEL ([id number])2020-04-17 17:53:00* Test Item Value Reference Range Interpretation Comme nts NA (test code = 6390994947) 141 mmol/L 135-145 K (test code = 0665870300) 4.3 mmol/L 3.5-5 CL (test code = 8267273576) 105 mmol/L 98-108 CO2 TOTAL (test code = 0679189293) 29 mmol/L 23-31 AGAP (test code = 5545757909) 2-16 BUN (test code = 8185015514) 10 mg/dL 7-23 GLUCOSE (test code = 2791942181) 123 mg/dL 70-110 H CREATININE (test code = 0975013977) 0.85 mg/dL 0.6-1.25 TOTAL BILI (test code = 4028562871) 0.4 mg/dL 0.1-1.1 CALCIUM (test code = 0611931246) 8.6 mg/dL 8.6-10.6 T PROTEIN (test code = 3764577039) 7.0 g/dL 6.3-8.2 ALBUMIN (test code = 2957107089) 3.9 g/dL 3.5-5 ALK PHOS (test code = 5504427140) 62 U/L 34-122 ALTv (test code = 1742-6) 17 U/L 5-50 AST(SGOT) (test code = 1318285301) 19 U/L 13-40 eGFR Calculation (Non-) (test code = 4848222838) mL/min/1.73m2 eGFR Calculation () (test code = 0217241803) mL/min/1.73m2 BEVERLY (test code = BEVERLY) Association of Glomerular Filtration Rate (GFR) and Staging of Kidney Disease* + --+ --+ ------+| GFR (mL/min/1.73 m2) ?| With Kidney Damage ?| ?Without Kidney Damage+ --------+ --------+ +| ?>90 ?| ?Stage one ?| ? Normal ?+ ---+ ---+ -------+| ?60-89 ?| ?Stage two ?| ? Decreased GFR ? + --+ --+ ------+| ?30-59 ?| ?Stage three ?| ? Stage three ? + --+ --+ ------+| ?15-29 ?| ?Stage four ? | ? Stage four ?+ ---+ ---+ -------+| ?<15 (or dialysis) ? ?| ?Stage five ? | ? Stage five ?+ ---+ ---+ -------+ *Each stage assumes the associated GFR level has been in effect for at least three months. ?Stages 1 to 5, with or without kidney disease, indicate chronic kidney disease. Notes: Determination of stages one and two (with eGFR >59mL/min/1.73 m2) requires estimation of kidney damage for at least three months as defined by structural or functional abnormalities of the kidney, manifested by either:Pathological abnormalities or Markers of kidney damage (including abnormalities in the composition of the blood or urine or abnormalities in imaging tests). Lab Interpretation (test code = 86738-7) Abnormal [facility]. METABOLIC PANEL ([id number])2020-04-17 17:53:00* Test Item Value Reference Range Interpretation Comme nts NA (test code = 1960562484) 141 mmol/L 135-145 K (test code = 4953553501) 4.3 mmol/L 3.5-5 CL (test code = 6709583513) 105 mmol/L 98-108 CO2 TOTAL (test code = 0307236014) 29 mmol/L 23-31 AGAP (test code = 9483057387) 2-16 BUN (test code = 4306895557) 10 mg/dL 7-23 GLUCOSE (test code = 3348445406) 123 mg/dL 70-110 H CREATININE (test code = 4301247491) 0.85 mg/dL 0.6-1.25 TOTAL BILI (test code = 9605410581) 0.4 mg/dL 0.1-1.1 CALCIUM (test code = 3634971009) 8.6 mg/dL 8.6-10.6 T PROTEIN (test code = 8623083049) 7.0 g/dL 6.3-8.2 ALBUMIN (test code = 7635707141) 3.9 g/dL 3.5-5 ALK PHOS (test code = 7416989977) 62 U/L 34-122 ALTv (test code = 1742-6) 17 U/L 5-50 AST(SGOT) (test code = 7474486496) 19 U/L 13-40 eGFR Calculation (Non-) (test code = 6661485783) mL/min/1.73m2 eGFR Calculation () (test code = 7623636053) mL/min/1.73m2 BEVERLY (test code = BEVERLY) Association of Glomerular Filtration Rate (GFR) and Staging of Kidney Disease* + --+ --+ ------+| GFR (mL/min/1.73 m2) ?| With Kidney Damage ?| ?Without Kidney Damage+ --------+ --------+ +| ?>90 ?| ?Stage one ?| ? Normal ?+ ---+ ---+ -------+| ?60-89 ?| ?Stage two ?| ? Decreased GFR ? + --+ --+ ------+| ?30-59 ?| ?Stage three ?| ? Stage three ? + --+ --+ ------+| ?15-29 ?| ?Stage four ? | ? Stage four ?+ ---+ ---+ -------+| ?<15 (or dialysis) ? ?| ?Stage five ? | ? Stage five ?+ ---+ ---+ -------+ *Each stage assumes the associated GFR level has been in effect for at least three months. ?Stages 1 to 5, with or without kidney disease, indicate chronic kidney disease. Notes: Determination of stages one and two (with eGFR >59mL/min/1.73 m2) requires estimation of kidney damage for at least three months as defined by structural or functional abnormalities of the kidney, manifested by either:Pathological abnormalities or Markers of kidney damage (including abnormalities in the composition of the blood or urine or abnormalities in imaging tests). Lab Interpretation (test code = 23684-7) Abnormal [facility]. METABOLIC PANEL ([id number])2020-04-17 17:53:00* Test Item Value Reference Range Interpretation Comme nts NA (test code = 6322378833) 141 mmol/L 135-145 K (test code = 3247462650) 4.3 mmol/L 3.5-5 CL (test code = 4324498169) 105 mmol/L 98-108 CO2 TOTAL (test code = 8925919592) 29 mmol/L 23-31 AGAP (test code = 8473322858) 2-16 BUN (test code = 7676486841) 10 mg/dL 7-23 GLUCOSE (test code = 3454568681) 123 mg/dL 70-110 H CREATININE (test code = 3986840296) 0.85 mg/dL 0.6-1.25 TOTAL BILI (test code = 0100590235) 0.4 mg/dL 0.1-1.1 CALCIUM (test code = 9965867589) 8.6 mg/dL 8.6-10.6 T PROTEIN (test code = 0824195593) 7.0 g/dL 6.3-8.2 ALBUMIN (test code = 4940780154) 3.9 g/dL 3.5-5 ALK PHOS (test code = 8382023287) 62 U/L 34-122 ALTv (test code = 1742-6) 17 U/L 5-50 AST(SGOT) (test code = 1175573261) 19 U/L 13-40 eGFR Calculation (Non-) (test code = 4540936656) mL/min/1.73m2 eGFR Calculation () (test code = 9874183213) mL/min/1.73m2 BEVERLY (test code = BEVERLY) Association of Glomerular Filtration Rate (GFR) and Staging of Kidney Disease* + --+ --+ ------+| GFR (mL/min/1.73 m2) ?| With Kidney Damage ?| ?Without Kidney Damage+ --------+ --------+ +| ?>90 ?| ?Stage one ?| ? Normal ?+ ---+ ---+ -------+| ?60-89 ?| ?Stage two ?| ? Decreased GFR ? + --+ --+ ------+| ?30-59 ?| ?Stage three ?| ? Stage three ? + --+ --+ ------+| ?15-29 ?| ?Stage four ? | ? Stage four ?+ ---+ ---+ -------+| ?<15 (or dialysis) ? ?| ?Stage five ? | ? Stage five ?+ ---+ ---+ -------+ *Each stage assumes the associated GFR level has been in effect for at least three months. ?Stages 1 to 5, with or without kidney disease, indicate chronic kidney disease. Notes: Determination of stages one and two (with eGFR >59mL/min/1.73 m2) requires estimation of kidney damage for at least three months as defined by structural or functional abnormalities of the kidney, manifested by either:Pathological abnormalities or Markers of kidney damage (including abnormalities in the composition of the blood or urine or abnormalities in imaging tests). Lab Interpretation (test code = 00478-3) [facility] ([id number])2020-04-17 17:53:00* Test Item Value Reference Range Interpretation Comme nts NA (test code = 7255142683) 141 mmol/L 135-145 K (test code = 3511280001) 4.3 mmol/L 3.5-5 CL (test code = 1831219887) 105 mmol/L 98-108 CO2 TOTAL (test code = 8366465401) 29 mmol/L 23-31 AGAP (test code = 4815411832) 2-16 BUN (test code = 7563516900) 10 mg/dL 7-23 GLUCOSE (test code = 3034862245) 123 mg/dL 70-110 H CREATININE (test code = 5256504000) 0.85 mg/dL 0.6-1.25 TOTAL BILI (test code = 1842880811) 0.4 mg/dL 0.1-1.1 CALCIUM (test code = 9424451137) 8.6 mg/dL 8.6-10.6 T PROTEIN (test code = 0812941403) 7.0 g/dL 6.3-8.2 ALBUMIN (test code = 4499888130) 3.9 g/dL 3.5-5 ALK PHOS (test code = 1709835143) 62 U/L 34-122 ALTv (test code = 1742-6) 17 U/L 5-50 AST(SGOT) (test code = 5259219333) 19 U/L 13-40 eGFR Calculation (Non-) (test code = 7142490818) mL/min/1.73m2 eGFR Calculation () (test code = 8959839071) mL/min/1.73m2 BEVERLY (test code = BEVERLY) Association of Glomerular Filtration Rate (GFR) and Staging of Kidney Disease* + --+ --+ ------+| GFR (mL/min/1.73 m2) ?| With Kidney Damage ?| ?Without Kidney Damage+ --------+ --------+ +| ?>90 ?| ?Stage one ?| ? Normal ?+ ---+ ---+ -------+| ?60-89 ?| ?Stage two ?| ? Decreased GFR ? + --+ --+ ------+| ?30-59 ?| ?Stage three ?| ? Stage three ? + --+ --+ ------+| ?15-29 ?| ?Stage four ? | ? Stage four ?+ ---+ ---+ -------+| ?<15 (or dialysis) ? ?| ?Stage five ? | ? Stage five ?+ ---+ ---+ -------+ *Each stage assumes the associated GFR level has been in effect for at least three months. ?Stages 1 to 5, with or without kidney disease, indicate chronic kidney disease. Notes: Determination of stages one and two (with eGFR >59mL/min/1.73 m2) requires estimation of kidney damage for at least three months as defined by structural or functional abnormalities of the kidney, manifested by either:Pathological abnormalities or Markers of kidney damage (including abnormalities in the composition of the blood or urine or abnormalities in imaging tests). Lab Interpretation (test code = 97726-7) Abnormal [facility]. METABOLIC PANEL ([id number])2020-04-17 17:53:00* Test Item Value Reference Range Interpretation Comme nts NA (test code = 9648503389) 141 mmol/L 135-145 K (test code = 8951030495) 4.3 mmol/L 3.5-5 CL (test code = 6066288306) 105 mmol/L 98-108 CO2 TOTAL (test code = 8353378563) 29 mmol/L 23-31 AGAP (test code = 8918684724) 2-16 BUN (test code = 3738935296) 10 mg/dL 7-23 GLUCOSE (test code = 3695404723) 123 mg/dL 70-110 H CREATININE (test code = 0312431736) 0.85 mg/dL 0.6-1.25 TOTAL BILI (test code = 4888752183) 0.4 mg/dL 0.1-1.1 CALCIUM (test code = 8662498509) 8.6 mg/dL 8.6-10.6 T PROTEIN (test code = 4332697945) 7.0 g/dL 6.3-8.2 ALBUMIN (test code = 0657218960) 3.9 g/dL 3.5-5 ALK PHOS (test code = 0357754830) 62 U/L 34-122 ALTv (test code = 1742-6) 17 U/L 5-50 AST(SGOT) (test code = 5026919183) 19 U/L 13-40 eGFR Calculation (Non-) (test code = 4252106998) mL/min/1.73m2 eGFR Calculation () (test code = 4212684071) mL/min/1.73m2 BEVERLY (test code = BEVERLY) Association of Glomerular Filtration Rate (GFR) and Staging of Kidney Disease* + --+ --+ ------+| GFR (mL/min/1.73 m2) ?| With Kidney Damage ?| ?Without Kidney Damage+ --------+ --------+ +| ?>90 ?| ?Stage one ?| ? Normal ?+ ---+ ---+ -------+| ?60-89 ?| ?Stage two ?| ? Decreased GFR ? + --+ --+ ------+| ?30-59 ?| ?Stage three ?| ? Stage three ? + --+ --+ ------+| ?15-29 ?| ?Stage four ? | ? Stage four ?+ ---+ ---+ -------+| ?<15 (or dialysis) ? ?| ?Stage five ? | ? Stage five ?+ ---+ ---+ -------+ *Each stage assumes the associated GFR level has been in effect for at least three months. ?Stages 1 to 5, with or without kidney disease, indicate chronic kidney disease. Notes: Determination of stages one and two (with eGFR >59mL/min/1.73 m2) requires estimation of kidney damage for at least three months as defined by structural or functional abnormalities of the kidney, manifested by either:Pathological abnormalities or Markers of kidney damage (including abnormalities in the composition of the blood or urine or abnormalities in imaging tests). Lab Interpretation (test code = 14229-4) Abnormal [facility] WITH [id number] 17:42:00* Test Item Value Reference Range Interpretation Comme nts WBC (test code = 6690-2) See_Comment [Automated [employer]] The system which generated this result transmitted reference range: 4.20 - 10.70 10*3/?L. The reference range was not used to interpret this result as normal/abnormal. RBC (test code = 789-8) See_Comment [Automated [employer]] The system which generated this result transmitted reference range: 4.26 - 5.52 10*6/?L. The reference range was not used to interpret this result as normal/abnormal. HGB (test code = 718-7) 14.7 g/dL 12.2-16.4 HCT (test code = 4544-3) 47.0 % 38.4-49.3 MCV (test code = 787-2) 92.2 fL 81.7-95.6 MCH (test code = 785-6) 28.8 pg 26.1-32.7 MCHC (test code = 786-4) 31.3 g/dL 31.2-35 RDW-SD (test code = 38541-0) 43.3 fL 38.5-51.6 RDW-CV (test code = 788-0) 12.7 % 12.1-15.4 PLT (test code = 777-3) See_Comment [Automated [employer]] The system which generated this result transmitted reference range: 150 - 328 10*3/?L. The reference range was not used to interpret this result as normal/abnormal. MPV (test code = 74105-6) 12.4 fL 9.8-13 NRBC/100 WBC (test code = 9413816190) See_Comment [Automated [employer]] The system which generated this result transmitted reference range: 0.0 - 10.0 /100 WBCs. The reference range was not used to interpret this result as normal/abnormal. NRBC x10^3 (test code = 5343716336) <0.01 See_Comment [Automated me ssage] The system which generated this result transmitted reference range: 10*3/?L. The reference range was not used to interpret this result as normal/abnormal. GRAN MAT (NEUT) % (test code = 770-8) 72.4 % IMM GRAN % (test code = 8235333857) 0.50 % LYMPH % (test code = 736-9) 19.4 % MONO % (test code = 5905-5) 4.9 % EOS % (test code = 713-8) 2.5 % BASO % (test code = 706-2) 0.3 % GRAN MAT x10^3(ANC) (test code = 8834050149) 5.41 10*3/uL 1.99-6.95 IMM GRAN x10^3 (test code = 0041791104) 0.04 10*3/uL 0-0.06 LYMPH x10^3 (test code = 731-0) 1.45 10*3/uL 1.09-3.23 MONO x10^3 (test code = 742-7) 0.37 10*3/uL 0.36-1.02 EOS x10^3 (test code = 711-2) 0.19 10*3/uL 0.06-0.53 BASO x10^3 (test code = 704-7) <0.03 0.01-0.09 [facility] WITH [id number] 17:42:00* Test Item Value Reference Range Interpretation Comme nts WBC (test code = 6690-2) See_Comment [Automated [employer]] The system which generated this result transmitted reference range: 4.20 - 10.70 10*3/?L. The reference range was not used to interpret this result as normal/abnormal. RBC (test code = 789-8) See_Comment [Automated [employer]] The system which generated this result transmitted reference range: 4.26 - 5.52 10*6/?L. The reference range was not used to interpret this result as normal/abnormal. HGB (test code = 718-7) 14.7 g/dL 12.2-16.4 HCT (test code = 4544-3) 47.0 % 38.4-49.3 MCV (test code = 787-2) 92.2 fL 81.7-95.6 MCH (test code = 785-6) 28.8 pg 26.1-32.7 MCHC (test code = 786-4) 31.3 g/dL 31.2-35 RDW-SD (test code = 78517-7) 43.3 fL 38.5-51.6 RDW-CV (test code = 788-0) 12.7 % 12.1-15.4 PLT (test code = 777-3) See_Comment [Automated messa ge] The system which generated this result transmitted reference range: 150 - 328 10*3/?L. The reference range was not used to interpret this result as normal/abnormal. MPV (test code = 84763-7) 12.4 fL 9.8-13 NRBC/100 WBC (test code = 6286737602) See_Comment [Automated me ssage] The system which generated this result transmitted reference range: 0.0 - 10.0 /100 WBCs. The reference range was not used to interpret this result as normal/abnormal. NRBC x10^3 (test code = 7126950112) <0.01 See_Comment [Automated me ssage] The system which generated this result transmitted reference range: 10*3/?L. The reference range was not used to interpret this result as normal/abnormal. GRAN MAT (NEUT) % (test code = 770-8) 72.4 % IMM GRAN % (test code = 0639773769) 0.50 % LYMPH % (test code = 736-9) 19.4 % MONO % (test code = 5905-5) 4.9 % EOS % (test code = 713-8) 2.5 % BASO % (test code = 706-2) 0.3 % GRAN MAT x10^3(ANC) (test code = 6978606122) 5.41 10*3/uL 1.99-6.95 IMM GRAN x10^3 (test code = 7520653362) 0.04 10*3/uL 0-0.06 LYMPH x10^3 (test code = 731-0) 1.45 10*3/uL 1.09-3.23 MONO x10^3 (test code = 742-7) 0.37 10*3/uL 0.36-1.02 EOS x10^3 (test code = 711-2) 0.19 10*3/uL 0.06-0.53 BASO x10^3 (test code = 704-7) <0.03 0.01-0.09 [facility] WITH [id number] 17:42:00* Test Item Value Reference Range Interpretation Comme nts WBC (test code = 6690-2) See_Comment [Automated messa ge] The system which generated this result transmitted reference range: 4.20 - 10.70 10*3/?L. The reference range was not used to interpret this result as normal/abnormal. RBC (test code = 789-8) See_Comment [Automated [employer]] The system which generated this result transmitted reference range: 4.26 - 5.52 10*6/?L. The reference range was not used to interpret this result as normal/abnormal. HGB (test code = 718-7) 14.7 g/dL 12.2-16.4 HCT (test code = 4544-3) 47.0 % 38.4-49.3 MCV (test code = 787-2) 92.2 fL 81.7-95.6 MCH (test code = 785-6) 28.8 pg 26.1-32.7 MCHC (test code = 786-4) 31.3 g/dL 31.2-35 RDW-SD (test code = 45699-9) 43.3 fL 38.5-51.6 RDW-CV (test code = 788-0) 12.7 % 12.1-15.4 PLT (test code = 777-3) See_Comment [Automated [employer]] The system which generated this result transmitted reference range: 150 - 328 10*3/?L. The reference range was not used to interpret this result as normal/abnormal. MPV (test code = 24611-4) 12.4 fL 9.8-13 NRBC/100 WBC (test code = 8698946028) See_Comment [Automated me ssage] The system which generated this result transmitted reference range: 0.0 - 10.0 /100 WBCs. The reference range was not used to interpret this result as normal/abnormal. NRBC x10^3 (test code = 0459689908) <0.01 See_Comment [Automated me ssage] The system which generated this result transmitted reference range: 10*3/?L. The reference range was not used to interpret this result as normal/abnormal. GRAN MAT (NEUT) % (test code = 770-8) 72.4 % IMM GRAN % (test code = 8906228231) 0.50 % LYMPH % (test code = 736-9) 19.4 % MONO % (test code = 5905-5) 4.9 % EOS % (test code = 713-8) 2.5 % BASO % (test code = 706-2) 0.3 % GRAN MAT x10^3(ANC) (test code = 9440485852) 5.41 10*3/uL 1.99-6.95 IMM GRAN x10^3 (test code = 7727917118) 0.04 10*3/uL 0-0.06 LYMPH x10^3 (test code = 731-0) 1.45 10*3/uL 1.09-3.23 MONO x10^3 (test code = 742-7) 0.37 10*3/uL 0.36-1.02 EOS x10^3 (test code = 711-2) 0.19 10*3/uL 0.06-0.53 BASO x10^3 (test code = 704-7) <0.03 0.01-0.09 [facility] [id number] 18:21:00* Test Item Value Reference Range Interpretation Comme nts VALPROIC A (test code = 9910608007) 48 ug/mL 50-100 L BEVERLY (test code = BEVERLY) Toxic Range: ?Greater than 100 ug/mL Lab Interpretation (test code = 57882-9) Abnormal [facility], [id number] 18:21:00* Test Item Value Reference Range Interpretation Comme nts VALPROIC A (test code = 9946205029) 48 ug/mL 50-100 L BEVERLY (test code = BEVERLY) Toxic Range: ?Greater than 100 ug/mL Lab Interpretation (test code = 29279-8) [facility]normal [facility] (A1C)2020-03-13 22:43:00* Test Item Value Reference Range Interpretation Comme nts HGB A1C (test code = 4548-4) 5.2 % 4-6 BEVERLY (test code = BEVERLY) %A1C (NGSP) Interpretation (ADA)4.8-5.6 ? ? Normal or (Non-Diabetic Range)5.7-6.4 ? ? Increased Risk (Pre-Diabetic)>6.5 ?Diabetes Indicated Lab Interpretation (test code = 79335-8) Normal [facility]C)2020-03-13 22:43:00* Test Item Value Reference Range Interpretation Comme nts HGB A1C (test code = 4548-4) 5.2 % 4-6 BEVERLY (test code = BEVERLY) %A1C (NGSP) Interpretation (ADA)4.8-5.6 ? ? Normal or (Non-Diabetic Range)5.7-6.4 ? ? Increased Risk (Pre-Diabetic)>6.5 ?Diabetes Indicated Lab Interpretation (test code = 40832-3) [facility] 22:43:00* Test Item Value Reference Range Interpretation Comme nts HGB A1C (test code = 4548-4) 5.2 % 4-6 BEVERLY (test code = BEVERLY) %A1C (NGSP) Interpretation (ADA)4.8-5.6 ? ? Normal or (Non-Diabetic Range)5.7-6.4 ? ? Increased Risk (Pre-Diabetic)>6.5 ?Diabetes Indicated Lab Interpretation (test code = 74106-7) [facility]2020-[facility]-13 22:43:00* Test Item Value Reference Range Interpretation Comme nts HGB A1C (test code = 4548-4) 5.2 % 4-6 BEVERLY (test code = BEVERLY) %A1C (NGSP) Interpretation (ADA)4.8-5.6 ? ? Normal or (Non-Diabetic Range)5.7-6.4 ? ? Increased Risk (Pre-Diabetic)>6.5 ?Diabetes Indicated Lab Interpretation (test code = 71720-9) [facility]2020-[facility]13 22:43:00* Test Item Value Reference Range Interpretation Comme nts HGB A1C (test code = 4548-4) 5.2 % 4-6 BEVERLY (test code = BEVERLY) %A1C (NGSP) Interpretation (ADA)4.8-5.6 ? ? Normal or (Non-Diabetic Range)5.7-6.4 ? ? Increased Risk (Pre-Diabetic)>6.5 ?Diabetes Indicated Lab Interpretation (test code = 29665-0) Normal [facility]C)2020-03-13 22:43:00* Test Item Value Reference Range Interpretation Comme nts HGB A1C (test code = 4548-4) 5.2 % 4-6 BEVERLY (test code = BEVERLY) %A1C (NGSP) Interpretation (ADA)4.8-5.6 ? ? Normal or (Non-Diabetic Range)5.7-6.4 ? ? Increased Risk (Pre-Diabetic)>6.5 ?Diabetes Indicated Lab Interpretation (test code = 74206-0) Normal [facility])2020-03-13 22:43:00* Test Item Value Reference Range Interpretation Comme nts HGB A1C (test code = 4548-4) 5.2 % 4-6 BEVERLY (test code = BEVERLY) %A1C (NGSP) Interpretation (ADA)4.8-5.6 ? ? Normal or (Non-Diabetic Range)5.7-6.4 ? ? Increased Risk (Pre-Diabetic)>6.5 ?Diabetes Indicated Lab Interpretation (test code = 17625-3) [facility]2020-03-13 22:43:00* Test Item Value Reference Range Interpretation Comme nts HGB A1C (test code = 4548-4) 5.2 % 4-6 BEVERLY (test code = BEVERLY) %A1C (NGSP) Interpretation (ADA)4.8-5.6 ? ? Normal or (Non-Diabetic Range)5.7-6.4 ? ? Increased Risk (Pre-Diabetic)>6.5 ?Diabetes Indicated Lab Interpretation (test code = 21754-3) Normal [facility]C)2020-03-13 22:43:00* Test Item Value Reference Range Interpretation Comme nts HGB A1C (test code = 4548-4) 5.2 % 4-6 BEVERLY (test code = BEVERLY) %A1C (NGSP) Interpretation (ADA)4.8-5.6 ? ? Normal or (Non-Diabetic Range)5.7-6.4 ? ? Increased Risk (Pre-Diabetic)>6.5 ?Diabetes Indicated Lab Interpretation (test code = 04212-4) Normal [facility]C)2020-03-13 22:43:00* Test Item Value Reference Range Interpretation Comme nts HGB A1C (test code = 4548-4) 5.2 % 4-6 BEVERLY (test code = BEVERLY) %A1C (NGSP) Interpretation (ADA)4.8-5.6 ? ? Normal or (Non-Diabetic Range)5.7-6.4 ? ? Increased Risk (Pre-Diabetic)>6.5 ?Diabetes Indicated Lab Interpretation (test code = 91477-9) Normal [facility]C)2020-03-13 22:43:00* Test Item Value Reference Range Interpretation Comme nts HGB A1C (test code = 4548-4) 5.2 % 4-6 BEVERLY (test code = BEVERLY) %A1C (NGSP) Interpretation (ADA)4.8-5.6 ? ? Normal or (Non-Diabetic Range)5.7-6.4 ? ? Increased Risk (Pre-Diabetic)>6.5 ?Diabetes Indicated Lab Interpretation (test code = 27735-0) Normal [facility]2020-03-13 22:43:00* Test Item Value Reference Range Interpretation Comme nts HGB A1C (test code = 4548-4) 5.2 % 4-6 BEVERLY (test code = BEVERLY) %A1C (NGSP) Interpretation (ADA)4.8-5.6 ? ? Normal or (Non-Diabetic Range)5.7-6.4 ? ? Increased Risk (Pre-Diabetic)>6.5 ?Diabetes Indicated Lab Interpretation (test code = 83123-2) Normal [facility]C)2020-03-13 22:43:00* Test Item Value Reference Range Interpretation Comme nts HGB A1C (test code = 4548-4) 5.2 % 4-6 BEVERLY (test code = BEVERLY) %A1C (NGSP) Interpretation (ADA)4.8-5.6 ? ? Normal or (Non-Diabetic Range)5.7-6.4 ? ? Increased Risk (Pre-Diabetic)>6.5 ?Diabetes Indicated Lab Interpretation (test code = 48942-8) Normal [facility]C)2020-03-13 22:43:00* Test Item Value Reference Range Interpretation Comme nts HGB A1C (test code = 4548-4) 5.2 % 4-6 BEVERLY (test code = BEVERLY) %A1C (NGSP) Interpretation (ADA)4.8-5.6 ? ? Normal or (Non-Diabetic Range)5.7-6.4 ? ? Increased Risk (Pre-Diabetic)>6.5 ?Diabetes Indicated Lab Interpretation (test code = 91369-1) Normal [facility]2020-03-13 22:43:00* Test Item Value Reference Range Interpretation Comme nts HGB A1C (test code = 4548-4) 5.2 % 4-6 BEVERLY (test code = BEVERLY) %A1C (NGSP) Interpretation (ADA)4.8-5.6 ? ? Normal or (Non-Diabetic Range)5.7-6.4 ? ? Increased Risk (Pre-Diabetic)>6.5 ?Diabetes Indicated Lab Interpretation (test code = 18678-6) Normal [facility]2020-03-13 22:43:00* Test Item Value Reference Range Interpretation Comme nts HGB A1C (test code = 4548-4) 5.2 % 4-6 BEVERLY (test code = BEVERLY) %A1C (NGSP) Interpretation (ADA)4.8-5.6 ? ? Normal or (Non-Diabetic Range)5.7-6.4 ? ? Increased Risk (Pre-Diabetic)>6.5 ?Diabetes Indicated Lab Interpretation (test code = 41867-9) Normal [facility]C)2020-03-13 22:43:00* Test Item Value Reference Range Interpretation Comme nts HGB A1C (test code = 4548-4) 5.2 % 4-6 BEVERLY (test code = BEVERLY) %A1C (NGSP) Interpretation (ADA)4.8-5.6 ? ? Normal or (Non-Diabetic Range)5.7-6.4 ? ? Increased Risk (Pre-Diabetic)>6.5 ?Diabetes Indicated Lab Interpretation (test code = 29898-9) Normal [facility]C)2020-03-13 22:43:00* Test Item Value Reference Range Interpretation Comme nts HGB A1C (test code = 4548-4) 5.2 % 4-6 BEVERLY (test code = BEVERLY) %A1C (NGSP) Interpretation (ADA)4.8-5.6 ? ? Normal or (Non-Diabetic Range)5.7-6.4 ? ? Increased Risk (Pre-Diabetic)>6.5 ?Diabetes Indicated Lab Interpretation (test code = 97952-0) Normal [facility]C)2020-03-13 22:43:00* Test Item Value Reference Range Interpretation Comme nts HGB A1C (test code = 4548-4) 5.2 % 4-6 BEVERLY (test code = BEVERLY) %A1C (NGSP) Interpretation (ADA)4.8-5.6 ? ? Normal or (Non-Diabetic Range)5.7-6.4 ? ? Increased Risk (Pre-Diabetic)>6.5 ?Diabetes Indicated Lab Interpretation (test code = 63015-6) Normal [facility]C)2020-03-13 22:43:00* Test Item Value Reference Range Interpretation Comme nts HGB A1C (test code = 4548-4) 5.2 % 4-6 BEVERLY (test code = BEVERLY) %A1C (NGSP) Interpretation (ADA)4.8-5.6 ? ? Normal or (Non-Diabetic Range)5.7-6.4 ? ? Increased Risk (Pre-Diabetic)>6.5 ?Diabetes Indicated Lab Interpretation (test code = 07516-2) Normal [facility]2020-03-13 22:43:00* Test Item Value Reference Range Interpretation Comme nts HGB A1C (test code = 4548-4) 5.2 % 4-6 BEVERLY (test code = BEEVRLY) %A1C (NGSP) Interpretation (ADA)4.8-5.6 ? ? Normal or (Non-Diabetic Range)5.7-6.4 ? ? Increased Risk (Pre-Diabetic)>6.5 ?Diabetes Indicated Lab Interpretation (test code = 60390-8) Normal [facility]2020-03-13 22:43:00* Test Item Value Reference Range Interpretation Comme nts HGB A1C (test code = 4548-4) 5.2 % 4-6 BEVERLY (test code = BEVERLY) %A1C (NGSP) Interpretation (ADA)4.8-5.6 ? ? Normal or (Non-Diabetic Range)5.7-6.4 ? ? Increased Risk (Pre-Diabetic)>6.5 ?Diabetes Indicated Lab Interpretation (test code = 30930-5) Normal [facility]2020-03-13 22:43:00* Test Item Value Reference Range Interpretation Comme nts HGB A1C (test code = 4548-4) 5.2 % 4-6 BEVERLY (test code = BEVERLY) %A1C (NGSP) Interpretation (ADA)4.8-5.6 ? ? Normal or (Non-Diabetic Range)5.7-6.4 ? ? Increased Risk (Pre-Diabetic)>6.5 ?Diabetes Indicated Lab Interpretation (test code = 96040-9) Normal [facility]C)2020-03-13 22:43:00* Test Item Value Reference Range Interpretation Comme nts HGB A1C (test code = 4548-4) 5.2 % 4-6 BEVERLY (test code = BEVERLY) %A1C (NGSP) Interpretation (ADA)4.8-5.6 ? ? Normal or (Non-Diabetic Range)5.7-6.4 ? ? Increased Risk (Pre-Diabetic)>6.5 ?Diabetes Indicated Lab Interpretation (test code = 31311-5) Normal [facility]C)2020-03-13 22:43:00* Test Item Value Reference Range Interpretation Comme nts HGB A1C (test code = 4548-4) 5.2 % 4-6 BEVERLY (test code = BEVERLY) %A1C (NGSP) Interpretation (ADA)4.8-5.6 ? ? Normal or (Non-Diabetic Range)5.7-6.4 ? ? Increased Risk (Pre-Diabetic)>6.5 ?Diabetes Indicated Lab Interpretation (test code = 38247-5) Normal [facility]2020-03-13 22:43:00* Test Item Value Reference Range Interpretation Comme nts HGB A1C (test code = 4548-4) 5.2 % 4-6 BEVERLY (test code = BEVERLY) %A1C (NGSP) Interpretation (ADA)4.8-5.6 ? ? Normal or (Non-Diabetic Range)5.7-6.4 ? ? Increased Risk (Pre-Diabetic)>6.5 ?Diabetes Indicated Lab Interpretation (test code = 43599-0) Normal [facility]2020-03-13 22:43:00* Test Item Value Reference Range Interpretation Comme nts HGB A1C (test code = 4548-4) 5.2 % 4-6 BEVERLY (test code = BEVERLY) %A1C (NGSP) Interpretation (ADA)4.8-5.6 ? ? Normal or (Non-Diabetic Range)5.7-6.4 ? ? Increased Risk (Pre-Diabetic)>6.5 ?Diabetes Indicated Lab Interpretation (test code = 91443-6) Normal [facility]2020-03-13 22:43:00* Test Item Value Reference Range Interpretation Comme nts HGB A1C (test code = 4548-4) 5.2 % 4-6 BEVERLY (test code = BEVERLY) %A1C (NGSP) Interpretation (ADA)4.8-5.6 ? ? Normal or (Non-Diabetic Range)5.7-6.4 ? ? Increased Risk (Pre-Diabetic)>6.5 ?Diabetes Indicated Lab Interpretation (test code = 99436-5) Normal [facility]2020-03-13 22:43:00* Test Item Value Reference Range Interpretation Comme nts HGB A1C (test code = 4548-4) 5.2 % 4-6 BEVERLY (test code = BEVERLY) %A1C (NGSP) Interpretation (ADA)4.8-5.6 ? ? Normal or (Non-Diabetic Range)5.7-6.4 ? ? Increased Risk (Pre-Diabetic)>6.5 ?Diabetes Indicated Lab Interpretation (test code = 35965-2) Normal [facility]C)2020-03-13 22:43:00* Test Item Value Reference Range Interpretation Comme nts HGB A1C (test code = 4548-4) 5.2 % 4-6 BEVERLY (test code = BEVERLY) %A1C (NGSP) Interpretation (ADA)4.8-5.6 ? ? Normal or (Non-Diabetic Range)5.7-6.4 ? ? Increased Risk (Pre-Diabetic)>6.5 ?Diabetes Indicated Lab Interpretation (test code = 91824-2) Normal [facility]2020-03-13 22:43:00* Test Item Value Reference Range Interpretation Comme nts HGB A1C (test code = 4548-4) 5.2 % 4-6 BEVERLY (test code = BEVERLY) %A1C (NGSP) Interpretation (ADA)4.8-5.6 ? ? Normal or (Non-Diabetic Range)5.7-6.4 ? ? Increased Risk (Pre-Diabetic)>6.5 ?Diabetes Indicated Lab Interpretation (test code = 20718-2) Normal [facility]2020-03-13 22:43:00* Test Item Value Reference Range Interpretation Comme nts HGB A1C (test code = 4548-4) 5.2 % 4-6 BEVERLY (test code = BEVERLY) %A1C (NGSP) Interpretation (ADA)4.8-5.6 ? ? Normal or (Non-Diabetic Range)5.7-6.4 ? ? Increased Risk (Pre-Diabetic)>6.5 ?Diabetes Indicated Lab Interpretation (test code = 46540-3) Normal [facility]2020-03-13 22:43:00* Test Item Value Reference Range Interpretation Comme nts HGB A1C (test code = 4548-4) 5.2 % 4-6 BEVERLY (test code = BEVERLY) %A1C (NGSP) Interpretation (ADA)4.8-5.6 ? ? Normal or (Non-Diabetic Range)5.7-6.4 ? ? Increased Risk (Pre-Diabetic)>6.5 ?Diabetes Indicated Lab Interpretation (test code = 28414-2) Normal [facility]2020-03-13 22:43:00* Test Item Value Reference Range Interpretation Comme nts HGB A1C (test code = 4548-4) 5.2 % 4-6 BEVERLY (test code = BEVERLY) %A1C (NGSP) Interpretation (ADA)4.8-5.6 ? ? Normal or (Non-Diabetic Range)5.7-6.4 ? ? Increased Risk (Pre-Diabetic)>6.5 ?Diabetes Indicated Lab Interpretation (test code = 01079-1) Normal [facility]2020-03-13 22:43:00* Test Item Value Reference Range Interpretation Comme nts HGB A1C (test code = 4548-4) 5.2 % 4-6 BEVERLY (test code = BEVERLY) %A1C (NGSP) Interpretation (ADA)4.8-5.6 ? ? Normal or (Non-Diabetic Range)5.7-6.4 ? ? Increased Risk (Pre-Diabetic)>6.5 ?Diabetes Indicated Lab Interpretation (test code = 28511-3) Normal [facility]C)2020-03-13 22:43:00* Test Item Value Reference Range Interpretation Comme nts HGB A1C (test code = 4548-4) 5.2 % 4-6 BEVERLY (test code = BEVERLY) %A1C (NGSP) Interpretation (ADA)4.8-5.6 ? ? Normal or (Non-Diabetic Range)5.7-6.4 ? ? Increased Risk (Pre-Diabetic)>6.5 ?Diabetes Indicated Lab Interpretation (test code = 80321-1) Normal [facility]2020-03-13 22:43:00* Test Item Value Reference Range Interpretation Comme nts HGB A1C (test code = 4548-4) 5.2 % 4-6 BEVERLY (test code = BEVERLY) %A1C (NGSP) Interpretation (ADA)4.8-5.6 ? ? Normal or (Non-Diabetic Range)5.7-6.4 ? ? Increased Risk (Pre-Diabetic)>6.5 ?Diabetes Indicated Lab Interpretation (test code = 07873-9) Normal [facility]2020-03-13 22:43:00* Test Item Value Reference Range Interpretation Comme nts HGB A1C (test code = 4548-4) 5.2 % 4-6 BEVERLY (test code = BEVERLY) %A1C (NGSP) Interpretation (ADA)4.8-5.6 ? ? Normal or (Non-Diabetic Range)5.7-6.4 ? ? Increased Risk (Pre-Diabetic)>6.5 ?Diabetes Indicated Lab Interpretation (test code = 36525-3) Normal [facility]2020-03-13 22:43:00* Test Item Value Reference Range Interpretation Comme nts HGB A1C (test code = 4548-4) 5.2 % 4-6 BEVERLY (test code = BEVERLY) %A1C (NGSP) Interpretation (ADA)4.8-5.6 ? ? Normal or (Non-Diabetic Range)5.7-6.4 ? ? Increased Risk (Pre-Diabetic)>6.5 ?Diabetes Indicated Lab Interpretation (test code = 17325-4) Normal [facility]2020-03-13 22:43:00* Test Item Value Reference Range Interpretation Comme nts HGB A1C (test code = 4548-4) 5.2 % 4-6 BEVELRY (test code = BEVERLY) %A1C (NGSP) Interpretation (ADA)4.8-5.6 ? ? Normal or (Non-Diabetic Range)5.7-6.4 ? ? Increased Risk (Pre-Diabetic)>6.5 ?Diabetes Indicated Lab Interpretation (test code = 93131-5) Normal [facility]2020-03-13 22:43:00* Test Item Value Reference Range Interpretation Comme nts HGB A1C (test code = 4548-4) 5.2 % 4-6 BEVERLY (test code = BEVERLY) %A1C (NGSP) Interpretation (ADA)4.8-5.6 ? ? Normal or (Non-Diabetic Range)5.7-6.4 ? ? Increased Risk (Pre-Diabetic)>6.5 ?Diabetes Indicated Lab Interpretation (test code = 16576-8) Normal [facility]2020-03-13 22:43:00* Test Item Value Reference Range Interpretation Comme nts HGB A1C (test code = 4548-4) 5.2 % 4-6 BEVERLY (test code = BEVERLY) %A1C (NGSP) Interpretation (ADA)4.8-5.6 ? ? Normal or (Non-Diabetic Range)5.7-6.4 ? ? Increased Risk (Pre-Diabetic)>6.5 ?Diabetes Indicated Lab Interpretation (test code = 05537-1) Normal [facility]2020-03-13 22:43:00* Test Item Value Reference Range Interpretation Comme nts HGB A1C (test code = 4548-4) 5.2 % 4-6 BEVERLY (test code = BEVERLY) %A1C (NGSP) Interpretation (ADA)4.8-5.6 ? ? Normal or (Non-Diabetic Range)5.7-6.4 ? ? Increased Risk (Pre-Diabetic)>6.5 ?Diabetes Indicated Lab Interpretation (test code = 58644-8) [facility] 22:43:00* Test Item Value Reference Range Interpretation Comme nts HGB A1C (test code = 4548-4) 5.2 % 4-6 BEVERLY (test code = BEVERLY) %A1C (NGSP) Interpretation (ADA)4.8-5.6 ? ? Normal or (Non-Diabetic Range)5.7-6.4 ? ? Increased Risk (Pre-Diabetic)>6.5 ?Diabetes Indicated Lab Interpretation (test code = 80722-6) [facility]2020-[facility]13 22:43:00* Test Item Value Reference Range Interpretation Comme nts HGB A1C (test code = 4548-4) 5.2 % 4-6 BEVERLY (test code = BEVERLY) %A1C (NGSP) Interpretation (ADA)4.8-5.6 ? ? Normal or (Non-Diabetic Range)5.7-6.4 ? ? Increased Risk (Pre-Diabetic)>6.5 ?Diabetes Indicated Lab Interpretation (test code = 42614-7) [facility]2020-[facility]13 22:43:00* Test Item Value Reference Range Interpretation Comme nts HGB A1C (test code = 4548-4) 5.2 % 4-6 BEVERLY (test code = BEVERLY) %A1C (NGSP) Interpretation (ADA)4.8-5.6 ? ? Normal or (Non-Diabetic Range)5.7-6.4 ? ? Increased Risk (Pre-Diabetic)>6.5 ?Diabetes Indicated Lab Interpretation (test code = 10551-5) [facility]2020-03-13 22:43:00* Test Item Value Reference Range Interpretation Comme nts HGB A1C (test code = 4548-4) 5.2 % 4-6 BEVERLY (test code = BEVERLY) %A1C (NGSP) Interpretation (ADA)4.8-5.6 ? ? Normal or (Non-Diabetic Range)5.7-6.4 ? ? Increased Risk (Pre-Diabetic)>6.5 ?Diabetes Indicated Lab Interpretation (test code = 00924-7) [facility] (20876)2020-03-13 22:37:00* Test Item Value Reference Range Interpretation Comme nts NA (test code = 4111975962) 139 mmol/L 135-145 K (test code = 8026175926) 4.5 mmol/L 3.5-5 CL (test code = 7626736502) 102 mmol/L 98-108 CO2 TOTAL (test code = 3697202262) 26 mmol/L 23-31 AGAP (test code = 1305717592) 2-16 BUN (test code = 8999448697) 14 mg/dL 7-23 GLUCOSE (test code = 4494507976) 99 mg/dL 70-110 CREATININE (test code = 6702118599) 0.74 mg/dL 0.6-1.25 TOTAL BILI (test code = 3762758109) 0.4 mg/dL 0.1-1.1 CALCIUM (test code = 2757108879) 9.5 mg/dL 8.6-10.6 T PROTEIN (test code = 6548259492) 7.0 g/dL 6.3-8.2 ALBUMIN (test code = 5081524164) 4.2 g/dL 3.5-5 ALK PHOS (test code = 5192817702) 63 U/L 34-122 ALTv (test code = 1742-6) 43 U/L 5-50 AST(SGOT) (test code = 8820686660) 36 U/L 13-40 eGFR Calculation (Non-) (test code = 8158450806) mL/min/1.73m2 eGFR Calculation () (test code = 5225914356) mL/min/1.73m2 BEVERLY (test code = BEVERLY) Association of Glomerular Filtration Rate (GFR) and Staging of Kidney Disease* + -+ + ---+| GFR (mL/min/1.73 m2) ?| With Kidney Damage ?| ?Without Kidney Damage+ -------+ ------+ ---------+| ?>90 ?| ?Stage one ?| ? Normal ?+ --+ -+ ----+| ?60-89 ?| ?Stage two ?| ? Decreased GFR ? + -+ + ---+| ?30-59 ?| ?Stage three ?| ? Stage three ? + -+ + ---+| ?15-29 ?| ?Stage four ? | ? Stage four ?+ --+ -+ ----+| ?<15 (or dialysis) ? ?| ?Stage five ? | ? Stage five ?+ --+ -+ ----+ *Each stage assumes the associated GFR level has been in effect for at least three months. ?Stages 1 to 5, with or without kidney disease, indicate chronic kidney disease. Notes: Determination of stages one and two (with eGFR >59mL/min/1.73 m2) requires estimation of kidney damage for at least three months as defined by structural or functional abnormalities of the kidney, manifested by either:Pathological abnormalities or Markers of kidney damage (including abnormalities in the composition of the blood or urine or abnormalities in imaging tests). [facility]. METABOLIC PANEL (25375)2020-03-13 22:37:00* Test Item Value Reference Range Interpretation Comme nts NA (test code = 6466729595) 139 mmol/L 135-145 K (test code = 6907556871) 4.5 mmol/L 3.5-5 CL (test code = 0558700951) 102 mmol/L 98-108 CO2 TOTAL (test code = 6638160358) 26 mmol/L 23-31 AGAP (test code = 3068522488) 2-16 BUN (test code = 4936493060) 14 mg/dL 7-23 GLUCOSE (test code = 1459729724) 99 mg/dL 70-110 CREATININE (test code = 5454794766) 0.74 mg/dL 0.6-1.25 TOTAL BILI (test code = 3047164680) 0.4 mg/dL 0.1-1.1 CALCIUM (test code = 7523806120) 9.5 mg/dL 8.6-10.6 T PROTEIN (test code = 1749093484) 7.0 g/dL 6.3-8.2 ALBUMIN (test code = 9814499866) 4.2 g/dL 3.5-5 ALK PHOS (test code = 0191632901) 63 U/L 34-122 ALTv (test code = 1742-6) 43 U/L 5-50 AST(SGOT) (test code = 4685948304) 36 U/L 13-40 eGFR Calculation (Non-) (test code = 1581942782) mL/min/1.73m2 eGFR Calculation () (test code = 3973729808) mL/min/1.73m2 BEVERLY (test code = BEVERLY) Association of Glomerular Filtration Rate (GFR) and Staging of Kidney Disease* + -+ + ---+| GFR (mL/min/1.73 m2) ?| With Kidney Damage ?| ?Without Kidney Damage+ -------+ ------+ ---------+| ?>90 ?| ?Stage one ?| ? Normal ?+ --+ -+ ----+| ?60-89 ?| ?Stage two ?| ? Decreased GFR ? + -+ + ---+| ?30-59 ?| ?Stage three ?| ? Stage three ? + -+ + ---+| ?15-29 ?| ?Stage four ? | ? Stage four ?+ --+ -+ ----+| ?<15 (or dialysis) ? ?| ?Stage five ? | ? Stage five ?+ --+ -+ ----+ *Each stage assumes the associated GFR level has been in effect for at least three months. ?Stages 1 to 5, with or without kidney disease, indicate chronic kidney disease. Notes: Determination of stages one and two (with eGFR >59mL/min/1.73 m2) requires estimation of kidney damage for at least three months as defined by structural or functional abnormalities of the kidney, manifested by either:Pathological abnormalities or Markers of kidney damage (including abnormalities in the composition of the blood or urine or abnormalities in imaging tests). [facility]IC [facility] ([id number])2020-03-13 22:37:00* Test Item Value Reference Range Interpretation Comme nts NA (test code = 3888543821) 139 mmol/L 135-145 K (test code = 9075134912) 4.5 mmol/L 3.5-5 CL (test code = 4996084778) 102 mmol/L 98-108 CO2 TOTAL (test code = 4996698767) 26 mmol/L 23-31 AGAP (test code = 9521685563) 2-16 BUN (test code = 8363831244) 14 mg/dL 7-23 GLUCOSE (test code = 5831095438) 99 mg/dL 70-110 CREATININE (test code = 9166878770) 0.74 mg/dL 0.6-1.25 TOTAL BILI (test code = 9887536039) 0.4 mg/dL 0.1-1.1 CALCIUM (test code = 6836192635) 9.5 mg/dL 8.6-10.6 T PROTEIN (test code = 2113561851) 7.0 g/dL 6.3-8.2 ALBUMIN (test code = 1028777929) 4.2 g/dL 3.5-5 ALK PHOS (test code = 5124540405) 63 U/L 34-122 ALTv (test code = 1742-6) 43 U/L 5-50 AST(SGOT) (test code = 6453031104) 36 U/L 13-40 eGFR Calculation (Non-) (test code = 1915330060) mL/min/1.73m2 eGFR Calculation () (test code = 7639267929) mL/min/1.73m2 BEVERLY (test code = BEVERLY) Association of Glomerular Filtration Rate (GFR) and Staging of Kidney Disease* + -+ + ---+| GFR (mL/min/1.73 m2) ?| With Kidney Damage ?| ?Without Kidney Damage+ -------+ ------+ ---------+| ?>90 ?| ?Stage one ?| ? Normal ?+ --+ -+ ----+| ?60-89 ?| ?Stage two ?| ? Decreased GFR ? + -+ + ---+| ?30-59 ?| ?Stage three ?| ? Stage three ? + -+ + ---+| ?15-29 ?| ?Stage four ? | ? Stage four ?+ --+ -+ ----+| ?<15 (or dialysis) ? ?| ?Stage five ? | ? Stage five ?+ --+ -+ ----+ *Each stage assumes the associated GFR level has been in effect for at least three months. ?Stages 1 to 5, with or without kidney disease, indicate chronic kidney disease. Notes: Determination of stages one and two (with eGFR >59mL/min/1.73 m2) requires estimation of kidney damage for at least three months as defined by structural or functional abnormalities of the kidney, manifested by either:Pathological abnormalities or Markers of kidney damage (including abnormalities in the composition of the blood or urine or abnormalities in imaging tests). [facility]. METABOLIC PANEL ([id number])2020-03-13 22:37:00* Test Item Value Reference Range Interpretation Comme nts NA (test code = 2603115601) 139 mmol/L 135-145 K (test code = 9777736405) 4.5 mmol/L 3.5-5 CL (test code = 5217631876) 102 mmol/L 98-108 CO2 TOTAL (test code = 2679406563) 26 mmol/L 23-31 AGAP (test code = 7799090401) 2-16 BUN (test code = 9200521885) 14 mg/dL 7-23 GLUCOSE (test code = 0998928930) 99 mg/dL 70-110 CREATININE (test code = 7886924661) 0.74 mg/dL 0.6-1.25 TOTAL BILI (test code = 0330524441) 0.4 mg/dL 0.1-1.1 CALCIUM (test code = 3544985075) 9.5 mg/dL 8.6-10.6 T PROTEIN (test code = 4172866058) 7.0 g/dL 6.3-8.2 ALBUMIN (test code = 6274249415) 4.2 g/dL 3.5-5 ALK PHOS (test code = 2439402102) 63 U/L 34-122 ALTv (test code = 1742-6) 43 U/L 5-50 AST(SGOT) (test code = 7681374859) 36 U/L 13-40 eGFR Calculation (Non-) (test code = 9540565528) mL/min/1.73m2 eGFR Calculation () (test code = 3126830750) mL/min/1.73m2 BEVERLY (test code = BEVERLY) Association of Glomerular Filtration Rate (GFR) and Staging of Kidney Disease* + -+ + ---+| GFR (mL/min/1.73 m2) ?| With Kidney Damage ?| ?Without Kidney Damage+ -------+ ------+ ---------+| ?>90 ?| ?Stage one ?| ? Normal ?+ --+ -+ ----+| ?60-89 ?| ?Stage two ?| ? Decreased GFR ? + -+ + ---+| ?30-59 ?| ?Stage three ?| ? Stage three ? + -+ + ---+| ?15-29 ?| ?Stage four ? | ? Stage four ?+ --+ -+ ----+| ?<15 (or dialysis) ? ?| ?Stage five ? | ? Stage five ?+ --+ -+ ----+ *Each stage assumes the associated GFR level has been in effect for at least three months. ?Stages 1 to 5, with or without kidney disease, indicate chronic kidney disease. Notes: Determination of stages one and two (with eGFR >59mL/min/1.73 m2) requires estimation of kidney damage for at least three months as defined by structural or functional abnormalities of the kidney, manifested by either:Pathological abnormalities or Markers of kidney damage (including abnormalities in the composition of the blood or urine or abnormalities in imaging tests). [facility]. METABOLIC PANEL ([id number])2020-03-13 22:37:00* Test Item Value Reference Range Interpretation Comme nts NA (test code = 7930882849) 139 mmol/L 135-145 K (test code = 2188152551) 4.5 mmol/L 3.5-5 CL (test code = 3719542157) 102 mmol/L 98-108 CO2 TOTAL (test code = 7261503310) 26 mmol/L 23-31 AGAP (test code = 8906563310) 2-16 BUN (test code = 4995017974) 14 mg/dL 7-23 GLUCOSE (test code = 7838975813) 99 mg/dL 70-110 CREATININE (test code = 1653530238) 0.74 mg/dL 0.6-1.25 TOTAL BILI (test code = 2201154579) 0.4 mg/dL 0.1-1.1 CALCIUM (test code = 3046053667) 9.5 mg/dL 8.6-10.6 T PROTEIN (test code = 8622323946) 7.0 g/dL 6.3-8.2 ALBUMIN (test code = 1233284462) 4.2 g/dL 3.5-5 ALK PHOS (test code = 8131675331) 63 U/L 34-122 ALTv (test code = 1742-6) 43 U/L 5-50 AST(SGOT) (test code = 6397274416) 36 U/L 13-40 eGFR Calculation (Non-) (test code = 5858763800) mL/min/1.73m2 eGFR Calculation () (test code = 8078071765) mL/min/1.73m2 BEVERLY (test code = BEVERLY) Association of Glomerular Filtration Rate (GFR) and Staging of Kidney Disease* + -+ + ---+| GFR (mL/min/1.73 m2) ?| With Kidney Damage ?| ?Without Kidney Damage+ -------+ ------+ ---------+| ?>90 ?| ?Stage one ?| ? Normal ?+ --+ -+ ----+| ?60-89 ?| ?Stage two ?| ? Decreased GFR ? + -+ + ---+| ?30-59 ?| ?Stage three ?| ? Stage three ? + -+ + ---+| ?15-29 ?| ?Stage four ? | ? Stage four ?+ --+ -+ ----+| ?<15 (or dialysis) ? ?| ?Stage five ? | ? Stage five ?+ --+ -+ ----+ *Each stage assumes the associated GFR level has been in effect for at least three months. ?Stages 1 to 5, with or without kidney disease, indicate chronic kidney disease. Notes: Determination of stages one and two (with eGFR >59mL/min/1.73 m2) requires estimation of kidney damage for at least three months as defined by structural or functional abnormalities of the kidney, manifested by either:Pathological abnormalities or Markers of kidney damage (including abnormalities in the composition of the blood or urine or abnormalities in imaging tests). [facility]. METABOLIC PANEL ([id number])2020-03-13 22:37:00* Test Item Value Reference Range Interpretation Comme nts NA (test code = 9960831492) 139 mmol/L 135-145 K (test code = 4175299488) 4.5 mmol/L 3.5-5 CL (test code = 2703583672) 102 mmol/L 98-108 CO2 TOTAL (test code = 8941942431) 26 mmol/L 23-31 AGAP (test code = 8822690549) 2-16 BUN (test code = 9292608314) 14 mg/dL 7-23 GLUCOSE (test code = 0556573543) 99 mg/dL 70-110 CREATININE (test code = 5183964729) 0.74 mg/dL 0.6-1.25 TOTAL BILI (test code = 5163482837) 0.4 mg/dL 0.1-1.1 CALCIUM (test code = 2878592774) 9.5 mg/dL 8.6-10.6 T PROTEIN (test code = 4468390893) 7.0 g/dL 6.3-8.2 ALBUMIN (test code = 8234447283) 4.2 g/dL 3.5-5 ALK PHOS (test code = 9724478002) 63 U/L 34-122 ALTv (test code = 1742-6) 43 U/L 5-50 AST(SGOT) (test code = 2625569269) 36 U/L 13-40 eGFR Calculation (Non-) (test code = 4986253356) mL/min/1.73m2 eGFR Calculation () (test code = 9035556740) mL/min/1.73m2 BEVERLY (test code = BEVERLY) Association of Glomerular Filtration Rate (GFR) and Staging of Kidney Disease* + -+ + ---+| GFR (mL/min/1.73 m2) ?| With Kidney Damage ?| ?Without Kidney Damage+ -------+ ------+ ---------+| ?>90 ?| ?Stage one ?| ? Normal ?+ --+ -+ ----+| ?60-89 ?| ?Stage two ?| ? Decreased GFR ? + -+ + ---+| ?30-59 ?| ?Stage three ?| ? Stage three ? + -+ + ---+| ?15-29 ?| ?Stage four ? | ? Stage four ?+ --+ -+ ----+| ?<15 (or dialysis) ? ?| ?Stage five ? | ? Stage five ?+ --+ -+ ----+ *Each stage assumes the associated GFR level has been in effect for at least three months. ?Stages 1 to 5, with or without kidney disease, indicate chronic kidney disease. Notes: Determination of stages one and two (with eGFR >59mL/min/1.73 m2) requires estimation of kidney damage for at least three months as defined by structural or functional abnormalities of the kidney, manifested by either:Pathological abnormalities or Markers of kidney damage (including abnormalities in the composition of the blood or urine or abnormalities in imaging tests). [facility]. METABOLIC PANEL ([id number])2020-03-13 22:37:00* Test Item Value Reference Range Interpretation Comme nts NA (test code = 9596663713) 139 mmol/L 135-145 K (test code = 2758241801) 4.5 mmol/L 3.5-5 CL (test code = 0801366866) 102 mmol/L 98-108 CO2 TOTAL (test code = 4914371421) 26 mmol/L 23-31 AGAP (test code = 4234704329) 2-16 BUN (test code = 9990766040) 14 mg/dL 7-23 GLUCOSE (test code = 6141690049) 99 mg/dL 70-110 CREATININE (test code = 9113126771) 0.74 mg/dL 0.6-1.25 TOTAL BILI (test code = 6576641029) 0.4 mg/dL 0.1-1.1 CALCIUM (test code = 0862122445) 9.5 mg/dL 8.6-10.6 T PROTEIN (test code = 9974657403) 7.0 g/dL 6.3-8.2 ALBUMIN (test code = 5177310228) 4.2 g/dL 3.5-5 ALK PHOS (test code = 5772529098) 63 U/L 34-122 ALTv (test code = 1742-6) 43 U/L 5-50 AST(SGOT) (test code = 8212589648) 36 U/L 13-40 eGFR Calculation (Non-) (test code = 8023924645) mL/min/1.73m2 eGFR Calculation () (test code = 8556730113) mL/min/1.73m2 BEVERLY (test code = BEVERLY) Association of Glomerular Filtration Rate (GFR) and Staging of Kidney Disease* + -+ + ---+| GFR (mL/min/1.73 m2) ?| With Kidney Damage ?| ?Without Kidney Damage+ -------+ ------+ ---------+| ?>90 ?| ?Stage one ?| ? Normal ?+ --+ -+ ----+| ?60-89 ?| ?Stage two ?| ? Decreased GFR ? + -+ + ---+| ?30-59 ?| ?Stage three ?| ? Stage three ? + -+ + ---+| ?15-29 ?| ?Stage four ? | ? Stage four ?+ --+ -+ ----+| ?<15 (or dialysis) ? ?| ?Stage five ? | ? Stage five ?+ --+ -+ ----+ *Each stage assumes the associated GFR level has been in effect for at least three months. ?Stages 1 to 5, with or without kidney disease, indicate chronic kidney disease. Notes: Determination of stages one and two (with eGFR >59mL/min/1.73 m2) requires estimation of kidney damage for at least three months as defined by structural or functional abnormalities of the kidney, manifested by either:Pathological abnormalities or Markers of kidney damage (including abnormalities in the composition of the blood or urine or abnormalities in imaging tests). [facility]. METABOLIC PANEL ([id number])2020-03-13 22:37:00* Test Item Value Reference Range Interpretation Comme nts NA (test code = 7565388616) 139 mmol/L 135-145 K (test code = 1088394208) 4.5 mmol/L 3.5-5 CL (test code = 5414933600) 102 mmol/L 98-108 CO2 TOTAL (test code = 4860651799) 26 mmol/L 23-31 AGAP (test code = 8466799194) 2-16 BUN (test code = 4343252574) 14 mg/dL 7-23 GLUCOSE (test code = 6189137940) 99 mg/dL 70-110 CREATININE (test code = 0532214615) 0.74 mg/dL 0.6-1.25 TOTAL BILI (test code = 6494597248) 0.4 mg/dL 0.1-1.1 CALCIUM (test code = 3735952797) 9.5 mg/dL 8.6-10.6 T PROTEIN (test code = 4974871596) 7.0 g/dL 6.3-8.2 ALBUMIN (test code = 3007588531) 4.2 g/dL 3.5-5 ALK PHOS (test code = 2599103735) 63 U/L 34-122 ALTv (test code = 1742-6) 43 U/L 5-50 AST(SGOT) (test code = 3125386485) 36 U/L 13-40 eGFR Calculation (Non-) (test code = 6418794622) mL/min/1.73m2 eGFR Calculation () (test code = 3841380304) mL/min/1.73m2 BEVERLY (test code = BEVERLY) Association of Glomerular Filtration Rate (GFR) and Staging of Kidney Disease* + -+ + ---+| GFR (mL/min/1.73 m2) ?| With Kidney Damage ?| ?Without Kidney Damage+ -------+ ------+ ---------+| ?>90 ?| ?Stage one ?| ? Normal ?+ --+ -+ ----+| ?60-89 ?| ?Stage two ?| ? Decreased GFR ? + -+ + ---+| ?30-59 ?| ?Stage three ?| ? Stage three ? + -+ + ---+| ?15-29 ?| ?Stage four ? | ? Stage four ?+ --+ -+ ----+| ?<15 (or dialysis) ? ?| ?Stage five ? | ? Stage five ?+ --+ -+ ----+ *Each stage assumes the associated GFR level has been in effect for at least three months. ?Stages 1 to 5, with or without kidney disease, indicate chronic kidney disease. Notes: Determination of stages one and two (with eGFR >59mL/min/1.73 m2) requires estimation of kidney damage for at least three months as defined by structural or functional abnormalities of the kidney, manifested by either:Pathological abnormalities or Markers of kidney damage (including abnormalities in the composition of the blood or urine or abnormalities in imaging tests). [facility]. METABOLIC PANEL ([id number])2020-03-13 22:37:00* Test Item Value Reference Range Interpretation Comme nts NA (test code = 2817781666) 139 mmol/L 135-145 K (test code = 4528323911) 4.5 mmol/L 3.5-5 CL (test code = 1486253146) 102 mmol/L 98-108 CO2 TOTAL (test code = 7149837666) 26 mmol/L 23-31 AGAP (test code = 5045599512) 2-16 BUN (test code = 9158093504) 14 mg/dL 7-23 GLUCOSE (test code = 2952070103) 99 mg/dL 70-110 CREATININE (test code = 8460370237) 0.74 mg/dL 0.6-1.25 TOTAL BILI (test code = 2914553229) 0.4 mg/dL 0.1-1.1 CALCIUM (test code = 3383214658) 9.5 mg/dL 8.6-10.6 T PROTEIN (test code = 7437020357) 7.0 g/dL 6.3-8.2 ALBUMIN (test code = 4915442844) 4.2 g/dL 3.5-5 ALK PHOS (test code = 8877562847) 63 U/L 34-122 ALTv (test code = 1742-6) 43 U/L 5-50 AST(SGOT) (test code = 6817911426) 36 U/L 13-40 eGFR Calculation (Non-) (test code = 6137515873) mL/min/1.73m2 eGFR Calculation () (test code = 8398378943) mL/min/1.73m2 BEVERLY (test code = BEVERLY) Association of Glomerular Filtration Rate (GFR) and Staging of Kidney Disease* + -+ + ---+| GFR (mL/min/1.73 m2) ?| With Kidney Damage ?| ?Without Kidney Damage+ -------+ ------+ ---------+| ?>90 ?| ?Stage one ?| ? Normal ?+ --+ -+ ----+| ?60-89 ?| ?Stage two ?| ? Decreased GFR ? + -+ + ---+| ?30-59 ?| ?Stage three ?| ? Stage three ? + -+ + ---+| ?15-29 ?| ?Stage four ? | ? Stage four ?+ --+ -+ ----+| ?<15 (or dialysis) ? ?| ?Stage five ? | ? Stage five ?+ --+ -+ ----+ *Each stage assumes the associated GFR level has been in effect for at least three months. ?Stages 1 to 5, with or without kidney disease, indicate chronic kidney disease. Notes: Determination of stages one and two (with eGFR >59mL/min/1.73 m2) requires estimation of kidney damage for at least three months as defined by structural or functional abnormalities of the kidney, manifested by either:Pathological abnormalities or Markers of kidney damage (including abnormalities in the composition of the blood or urine or abnormalities in imaging tests). [facility]. METABOLIC PANEL ([id number])2020-03-13 22:37:00* Test Item Value Reference Range Interpretation Comme nts NA (test code = 6305204664) 139 mmol/L 135-145 K (test code = 3943780297) 4.5 mmol/L 3.5-5 CL (test code = 3396993864) 102 mmol/L 98-108 CO2 TOTAL (test code = 8141293225) 26 mmol/L 23-31 AGAP (test code = 9869440387) 2-16 BUN (test code = 8230242396) 14 mg/dL 7-23 GLUCOSE (test code = 4181804883) 99 mg/dL 70-110 CREATININE (test code = 6058707896) 0.74 mg/dL 0.6-1.25 TOTAL BILI (test code = 7596975214) 0.4 mg/dL 0.1-1.1 CALCIUM (test code = 9132159494) 9.5 mg/dL 8.6-10.6 T PROTEIN (test code = 1196931372) 7.0 g/dL 6.3-8.2 ALBUMIN (test code = 6031824250) 4.2 g/dL 3.5-5 ALK PHOS (test code = 4870297446) 63 U/L 34-122 ALTv (test code = 1742-6) 43 U/L 5-50 AST(SGOT) (test code = 6129811703) 36 U/L 13-40 eGFR Calculation (Non-) (test code = 9804730454) mL/min/1.73m2 eGFR Calculation () (test code = 7654633231) mL/min/1.73m2 BEVERLY (test code = BEVERLY) Association of Glomerular Filtration Rate (GFR) and Staging of Kidney Disease* + -+ + ---+| GFR (mL/min/1.73 m2) ?| With Kidney Damage ?| ?Without Kidney Damage+ -------+ ------+ ---------+| ?>90 ?| ?Stage one ?| ? Normal ?+ --+ -+ ----+| ?60-89 ?| ?Stage two ?| ? Decreased GFR ? + -+ + ---+| ?30-59 ?| ?Stage three ?| ? Stage three ? + -+ + ---+| ?15-29 ?| ?Stage four ? | ? Stage four ?+ --+ -+ ----+| ?<15 (or dialysis) ? ?| ?Stage five ? | ? Stage five ?+ --+ -+ ----+ *Each stage assumes the associated GFR level has been in effect for at least three months. ?Stages 1 to 5, with or without kidney disease, indicate chronic kidney disease. Notes: Determination of stages one and two (with eGFR >59mL/min/1.73 m2) requires estimation of kidney damage for at least three months as defined by structural or functional abnormalities of the kidney, manifested by either:Pathological abnormalities or Markers of kidney damage (including abnormalities in the composition of the blood or urine or abnormalities in imaging tests). [facility] ([id number])2020-01-05 02:22:00* Test Item Value Reference Range Interpretation Comme nts NA (test code = 6418655721) 139 mmol/L 135-145 K (test code = 4644639461) 4.3 mmol/L 3.5-5 CL (test code = 7690141542) 104 mmol/L 98-108 CO2 TOTAL (test code = 3943504004) 26 mmol/L 23-31 AGAP (test code = 6463583321) 2-16 BUN (test code = 7967031446) 12 mg/dL 7-23 GLUCOSE (test code = 0067043126) 116 mg/dL 70-110 H CREATININE (test code = 3113603741) 0.69 mg/dL 0.6-1.25 TOTAL BILI (test code = 9977489967) 0.2 mg/dL 0.1-1.1 CALCIUM (test code = 7753964813) 9.5 mg/dL 8.6-10.6 T PROTEIN (test code = 0008461448) 7.2 g/dL 6.3-8.2 ALBUMIN (test code = 6666034754) 4.0 g/dL 3.5-5 ALK PHOS (test code = 2612926081) 66 U/L 34-122 ALTv (test code = 1742-6) 20 U/L 5-50 AST(SGOT) (test code = 1073813319) 22 U/L 13-40 eGFR Calculation (Non-) (test code = 4724959926) mL/min/1.73m2 eGFR Calculation () (test code = 3027840544) mL/min/1.73m2 BEVERLY (test code = BEVERLY) Association of Glomerular Filtration Rate (GFR) and Staging of Kidney Disease* + --+ --+ ------+| GFR (mL/min/1.73 m2) ?| With Kidney Damage ?| ?Without Kidney Damage+ --------+ --------+ +| ?>90 ?| ?Stage one ?| ? Normal ?+ ---+ ---+ -------+| ?60-89 ?| ?Stage two ?| ? Decreased GFR ? + --+ --+ ------+| ?30-59 ?| ?Stage three ?| ? Stage three ? + --+ --+ ------+| ?15-29 ?| ?Stage four ? | ? Stage four ?+ ---+ ---+ -------+| ?<15 (or dialysis) ? ?| ?Stage five ? | ? Stage five ?+ ---+ ---+ -------+ *Each stage assumes the associated GFR level has been in effect for at least three months. ?Stages 1 to 5, with or without kidney disease, indicate chronic kidney disease. Notes: Determination of stages one and two (with eGFR >59mL/min/1.73 m2) requires estimation of kidney damage for at least three months as defined by structural or functional abnormalities of the kidney, manifested by either:Pathological abnormalities or Markers of kidney damage (including abnormalities in the composition of the blood or urine or abnormalities in imaging tests). Lab Interpretation (test code = 54320-8) [facility] Test Item Value Reference Range Interpretation Comme nts LIPASE (test code = 2238119239) 48 U/L 0-220 Lab Interpretation (test cod e = 42433-7) Normal [facility]22:[facility]* Test Item Value Reference Range Interpretation Comme nts LIPASE (test code = 0194692280) 48 U/L 0-220 Lab Interpretation (test cod e = 25416-8) [facility] ([id number])2020-01-05 02:22:00* Test Item Value Reference Range Interpretation Comme nts NA (test code = 6530658899) 139 mmol/L 135-145 K (test code = 3447927059) 4.3 mmol/L 3.5-5 CL (test code = 7051940941) 104 mmol/L 98-108 CO2 TOTAL (test code = 2912021254) 26 mmol/L 23-31 AGAP (test code = 6904086039) 2-16 BUN (test code = 9074635618) 12 mg/dL 7-23 GLUCOSE (test code = 0967131824) 116 mg/dL 70-110 H CREATININE (test code = 3127426695) 0.69 mg/dL 0.6-1.25 TOTAL BILI (test code = 0332034658) 0.2 mg/dL 0.1-1.1 CALCIUM (test code = 9723457613) 9.5 mg/dL 8.6-10.6 T PROTEIN (test code = 0829575229) 7.2 g/dL 6.3-8.2 ALBUMIN (test code = 4991380442) 4.0 g/dL 3.5-5 ALK PHOS (test code = 1477999484) 66 U/L 34-122 ALTv (test code = 1742-6) 20 U/L 5-50 AST(SGOT) (test code = 2128335423) 22 U/L 13-40 eGFR Calculation (Non-) (test code = 1538629953) mL/min/1.73m2 eGFR Calculation () (test code = 9152329967) mL/min/1.73m2 BEVERLY (test code = BEVERLY) Association of Glomerular Filtration Rate (GFR) and Staging of Kidney Disease* + --+ --+ ------+| GFR (mL/min/1.73 m2) ?| With Kidney Damage ?| ?Without Kidney Damage+ --------+ --------+ +| ?>90 ?| ?Stage one ?| ? Normal ?+ ---+ ---+ -------+| ?60-89 ?| ?Stage two ?| ? Decreased GFR ? + --+ --+ ------+| ?30-59 ?| ?Stage three ?| ? Stage three ? + --+ --+ ------+| ?15-29 ?| ?Stage four ? | ? Stage four ?+ ---+ ---+ -------+| ?<15 (or dialysis) ? ?| ?Stage five ? | ? Stage five ?+ ---+ ---+ -------+ *Each stage assumes the associated GFR level has been in effect for at least three months. ?Stages 1 to 5, with or without kidney disease, indicate chronic kidney disease. Notes: Determination of stages one and two (with eGFR >59mL/min/1.73 m2) requires estimation of kidney damage for at least three months as defined by structural or functional abnormalities of the kidney, manifested by either:Pathological abnormalities or Markers of kidney damage (including abnormalities in the composition of the blood or urine or abnormalities in imaging tests). Lab Interpretation (test code = 95729-5) [facility]* Test Item Value Reference Range Interpretation Comme nts LIPASE (test code = 0833382162) 48 U/L 0-220 Lab Interpretation (test cod e = 15343-6) [facility]OLIC [facility] ([id number])2020-01-05 02:22:00* Test Item Value Reference Range Interpretation Comme nts NA (test code = 2622083395) 139 mmol/L 135-145 K (test code = 4782271649) 4.3 mmol/L 3.5-5 CL (test code = 0480447767) 104 mmol/L 98-108 CO2 TOTAL (test code = 0068753700) 26 mmol/L 23-31 AGAP (test code = 7897914321) 2-16 BUN (test code = 6183768182) 12 mg/dL 7-23 GLUCOSE (test code = 0128189913) 116 mg/dL 70-110 H CREATININE (test code = 9317225000) 0.69 mg/dL 0.6-1.25 TOTAL BILI (test code = 9740507973) 0.2 mg/dL 0.1-1.1 CALCIUM (test code = 5215835596) 9.5 mg/dL 8.6-10.6 T PROTEIN (test code = 2694425204) 7.2 g/dL 6.3-8.2 ALBUMIN (test code = 1658386692) 4.0 g/dL 3.5-5 ALK PHOS (test code = 1377905756) 66 U/L 34-122 ALTv (test code = 1742-6) 20 U/L 5-50 AST(SGOT) (test code = 7181379687) 22 U/L 13-40 eGFR Calculation (Non-) (test code = 8344656726) mL/min/1.73m2 eGFR Calculation () (test code = 3584218689) mL/min/1.73m2 BEVERLY (test code = BEVERLY) Association of Glomerular Filtration Rate (GFR) and Staging of Kidney Disease* + --+ --+ ------+| GFR (mL/min/1.73 m2) ?| With Kidney Damage ?| ?Without Kidney Damage+ --------+ --------+ +| ?>90 ?| ?Stage one ?| ? Normal ?+ ---+ ---+ -------+| ?60-89 ?| ?Stage two ?| ? Decreased GFR ? + --+ --+ ------+| ?30-59 ?| ?Stage three ?| ? Stage three ? + --+ --+ ------+| ?15-29 ?| ?Stage four ? | ? Stage four ?+ ---+ ---+ -------+| ?<15 (or dialysis) ? ?| ?Stage five ? | ? Stage five ?+ ---+ ---+ -------+ *Each stage assumes the associated GFR level has been in effect for at least three months. ?Stages 1 to 5, with or without kidney disease, indicate chronic kidney disease. Notes: Determination of stages one and two (with eGFR >59mL/min/1.73 m2) requires estimation of kidney damage for at least three months as defined by structural or functional abnormalities of the kidney, manifested by either:Pathological abnormalities or Markers of kidney damage (including abnormalities in the composition of the blood or urine or abnormalities in imaging tests). Lab Interpretation (test code = 75058-2) [facility] Test Item Value Reference Range Interpretation Comme nts LIPASE (test code = 8086431062) 48 U/L 0-220 Lab Interpretation (test cod e = 55923-2) [facility] ([id number])2020-01-05 02:22:00* Test Item Value Reference Range Interpretation Comme nts NA (test code = 8066398615) 139 mmol/L 135-145 K (test code = 8333882383) 4.3 mmol/L 3.5-5 CL (test code = 1519417103) 104 mmol/L 98-108 CO2 TOTAL (test code = 6874923438) 26 mmol/L 23-31 AGAP (test code = 2039413463) 2-16 BUN (test code = 0311828186) 12 mg/dL 7-23 GLUCOSE (test code = 5682988006) 116 mg/dL 70-110 H CREATININE (test code = 3644589865) 0.69 mg/dL 0.6-1.25 TOTAL BILI (test code = 8425396371) 0.2 mg/dL 0.1-1.1 CALCIUM (test code = 5001168409) 9.5 mg/dL 8.6-10.6 T PROTEIN (test code = 3946017000) 7.2 g/dL 6.3-8.2 ALBUMIN (test code = 3612704047) 4.0 g/dL 3.5-5 ALK PHOS (test code = 8478988959) 66 U/L 34-122 ALTv (test code = 1742-6) 20 U/L 5-50 AST(SGOT) (test code = 2119779785) 22 U/L 13-40 eGFR Calculation (Non-) (test code = 6219719862) mL/min/1.73m2 eGFR Calculation () (test code = 9666498483) mL/min/1.73m2 BEVERLY (test code = BEVERLY) Association of Glomerular Filtration Rate (GFR) and Staging of Kidney Disease* + --+ --+ ------+| GFR (mL/min/1.73 m2) ?| With Kidney Damage ?| ?Without Kidney Damage+ --------+ --------+ +| ?>90 ?| ?Stage one ?| ? Normal ?+ ---+ ---+ -------+| ?60-89 ?| ?Stage two ?| ? Decreased GFR ? + --+ --+ ------+| ?30-59 ?| ?Stage three ?| ? Stage three ? + --+ --+ ------+| ?15-29 ?| ?Stage four ? | ? Stage four ?+ ---+ ---+ -------+| ?<15 (or dialysis) ? ?| ?Stage five ? | ? Stage five ?+ ---+ ---+ -------+ *Each stage assumes the associated GFR level has been in effect for at least three months. ?Stages 1 to 5, with or without kidney disease, indicate chronic kidney disease. Notes: Determination of stages one and two (with eGFR >59mL/min/1.73 m2) requires estimation of kidney damage for at least three months as defined by structural or functional abnormalities of the kidney, manifested by either:Pathological abnormalities or Markers of kidney damage (including abnormalities in the composition of the blood or urine or abnormalities in imaging tests). Lab Interpretation (test code = 78997-4) [facility]* Test Item Value Reference Range Interpretation Comme nts LIPASE (test code = 8682357574) 48 U/L 0-220 Lab Interpretation (test cod e = 83885-3) [facility] ([id number])2020-01-05 02:22:00* Test Item Value Reference Range Interpretation Comme nts NA (test code = 3085794136) 139 mmol/L 135-145 K (test code = 9726774509) 4.3 mmol/L 3.5-5 CL (test code = 7092054983) 104 mmol/L 98-108 CO2 TOTAL (test code = 1547048291) 26 mmol/L 23-31 AGAP (test code = 1068553430) 2-16 BUN (test code = 8581987236) 12 mg/dL 7-23 GLUCOSE (test code = 6656577797) 116 mg/dL 70-110 H CREATININE (test code = 4312508478) 0.69 mg/dL 0.6-1.25 TOTAL BILI (test code = 9972163089) 0.2 mg/dL 0.1-1.1 CALCIUM (test code = 7293089664) 9.5 mg/dL 8.6-10.6 T PROTEIN (test code = 4162968908) 7.2 g/dL 6.3-8.2 ALBUMIN (test code = 3860586982) 4.0 g/dL 3.5-5 ALK PHOS (test code = 3951839437) 66 U/L 34-122 ALTv (test code = 1742-6) 20 U/L 5-50 AST(SGOT) (test code = 8703487278) 22 U/L 13-40 eGFR Calculation (Non-) (test code = 4446624862) mL/min/1.73m2 eGFR Calculation () (test code = 3004031230) mL/min/1.73m2 BEVERLY (test code = BEVERLY) Association of Glomerular Filtration Rate (GFR) and Staging of Kidney Disease* + --+ --+ ------+| GFR (mL/min/1.73 m2) ?| With Kidney Damage ?| ?Without Kidney Damage+ --------+ --------+ +| ?>90 ?| ?Stage one ?| ? Normal ?+ ---+ ---+ -------+| ?60-89 ?| ?Stage two ?| ? Decreased GFR ? + --+ --+ ------+| ?30-59 ?| ?Stage three ?| ? Stage three ? + --+ --+ ------+| ?15-29 ?| ?Stage four ? | ? Stage four ?+ ---+ ---+ -------+| ?<15 (or dialysis) ? ?| ?Stage five ? | ? Stage five ?+ ---+ ---+ -------+ *Each stage assumes the associated GFR level has been in effect for at least three months. ?Stages 1 to 5, with or without kidney disease, indicate chronic kidney disease. Notes: Determination of stages one and two (with eGFR >59mL/min/1.73 m2) requires estimation of kidney damage for at least three months as defined by structural or functional abnormalities of the kidney, manifested by either:Pathological abnormalities or Markers of kidney damage (including abnormalities in the composition of the blood or urine or abnormalities in imaging tests). Lab Interpretation (test code = 28238-6) [facility]* Test Item Value Reference Range Interpretation Comme nts LIPASE (test code = 1787663659) 48 U/L 0-220 Lab Interpretation (test cod e = 14936-2) [facility] ([id number])2020-01-05 02:22:00* Test Item Value Reference Range Interpretation Comme nts NA (test code = 7649845849) 139 mmol/L 135-145 K (test code = 8371936508) 4.3 mmol/L 3.5-5 CL (test code = 5151338704) 104 mmol/L 98-108 CO2 TOTAL (test code = 9596177506) 26 mmol/L 23-31 AGAP (test code = 8191985166) 2-16 BUN (test code = 2155048667) 12 mg/dL 7-23 GLUCOSE (test code = 4581374331) 116 mg/dL 70-110 H CREATININE (test code = 4425945886) 0.69 mg/dL 0.6-1.25 TOTAL BILI (test code = 6339537062) 0.2 mg/dL 0.1-1.1 CALCIUM (test code = 5099303863) 9.5 mg/dL 8.6-10.6 T PROTEIN (test code = 3051216737) 7.2 g/dL 6.3-8.2 ALBUMIN (test code = 0084701070) 4.0 g/dL 3.5-5 ALK PHOS (test code = 4164873015) 66 U/L 34-122 ALTv (test code = 1742-6) 20 U/L 5-50 AST(SGOT) (test code = 8449792210) 22 U/L 13-40 eGFR Calculation (Non-) (test code = 1221857389) mL/min/1.73m2 eGFR Calculation () (test code = 6395608725) mL/min/1.73m2 BEVERLY (test code = BEVERLY) Association of Glomerular Filtration Rate (GFR) and Staging of Kidney Disease* + --+ --+ ------+| GFR (mL/min/1.73 m2) ?| With Kidney Damage ?| ?Without Kidney Damage+ --------+ --------+ +| ?>90 ?| ?Stage one ?| ? Normal ?+ ---+ ---+ -------+| ?60-89 ?| ?Stage two ?| ? Decreased GFR ? + --+ --+ ------+| ?30-59 ?| ?Stage three ?| ? Stage three ? + --+ --+ ------+| ?15-29 ?| ?Stage four ? | ? Stage four ?+ ---+ ---+ -------+| ?<15 (or dialysis) ? ?| ?Stage five ? | ? Stage five ?+ ---+ ---+ -------+ *Each stage assumes the associated GFR level has been in effect for at least three months. ?Stages 1 to 5, with or without kidney disease, indicate chronic kidney disease. Notes: Determination of stages one and two (with eGFR >59mL/min/1.73 m2) requires estimation of kidney damage for at least three months as defined by structural or functional abnormalities of the kidney, manifested by either:Pathological abnormalities or Markers of kidney damage (including abnormalities in the composition of the blood or urine or abnormalities in imaging tests). Lab Interpretation (test code = 77896-4) [facility]* Test Item Value Reference Range Interpretation Comme nts LIPASE (test code = 7774836169) 48 U/L 0-220 Lab Interpretation (test cod e = 63915-2) [facility] ([id number])2020-01-05 02:22:00* Test Item Value Reference Range Interpretation Comme nts NA (test code = 8643273304) 139 mmol/L 135-145 K (test code = 4032779608) 4.3 mmol/L 3.5-5 CL (test code = 4549000108) 104 mmol/L 98-108 CO2 TOTAL (test code = 8260619071) 26 mmol/L 23-31 AGAP (test code = 5673261692) 2-16 BUN (test code = 8718469242) 12 mg/dL 7-23 GLUCOSE (test code = 1106630925) 116 mg/dL 70-110 H CREATININE (test code = 4869039456) 0.69 mg/dL 0.6-1.25 TOTAL BILI (test code = 4018114781) 0.2 mg/dL 0.1-1.1 CALCIUM (test code = 6498710976) 9.5 mg/dL 8.6-10.6 T PROTEIN (test code = 9488100852) 7.2 g/dL 6.3-8.2 ALBUMIN (test code = 6934422571) 4.0 g/dL 3.5-5 ALK PHOS (test code = 8963425675) 66 U/L 34-122 ALTv (test code = 1742-6) 20 U/L 5-50 AST(SGOT) (test code = 7131277255) 22 U/L 13-40 eGFR Calculation (Non-) (test code = 2060680215) mL/min/1.73m2 eGFR Calculation () (test code = 5784361266) mL/min/1.73m2 BEVERLY (test code = BEVERLY) Association of Glomerular Filtration Rate (GFR) and Staging of Kidney Disease* + --+ --+ ------+| GFR (mL/min/1.73 m2) ?| With Kidney Damage ?| ?Without Kidney Damage+ --------+ --------+ +| ?>90 ?| ?Stage one ?| ? Normal ?+ ---+ ---+ -------+| ?60-89 ?| ?Stage two ?| ? Decreased GFR ? + --+ --+ ------+| ?30-59 ?| ?Stage three ?| ? Stage three ? + --+ --+ ------+| ?15-29 ?| ?Stage four ? | ? Stage four ?+ ---+ ---+ -------+| ?<15 (or dialysis) ? ?| ?Stage five ? | ? Stage five ?+ ---+ ---+ -------+ *Each stage assumes the associated GFR level has been in effect for at least three months. ?Stages 1 to 5, with or without kidney disease, indicate chronic kidney disease. Notes: Determination of stages one and two (with eGFR >59mL/min/1.73 m2) requires estimation of kidney damage for at least three months as defined by structural or functional abnormalities of the kidney, manifested by either:Pathological abnormalities or Markers of kidney damage (including abnormalities in the composition of the blood or urine or abnormalities in imaging tests). Lab Interpretation (test code = 03808-0) [facility]* Test Item Value Reference Range Interpretation Comme nts LIPASE (test code = 5535368622) 48 U/L 0-220 Lab Interpretation (test cod e = 84468-2) [facility] ([id number])2020-01-05 02:22:00* Test Item Value Reference Range Interpretation Comme nts NA (test code = 1692779190) 139 mmol/L 135-145 K (test code = 8713263163) 4.3 mmol/L 3.5-5 CL (test code = 6999252689) 104 mmol/L 98-108 CO2 TOTAL (test code = 2373797152) 26 mmol/L 23-31 AGAP (test code = 2122900938) 2-16 BUN (test code = 4434560648) 12 mg/dL 7-23 GLUCOSE (test code = 1661529787) 116 mg/dL 70-110 H CREATININE (test code = 2116705618) 0.69 mg/dL 0.6-1.25 TOTAL BILI (test code = 6974202755) 0.2 mg/dL 0.1-1.1 CALCIUM (test code = 0117579803) 9.5 mg/dL 8.6-10.6 T PROTEIN (test code = 3941780898) 7.2 g/dL 6.3-8.2 ALBUMIN (test code = 3231136574) 4.0 g/dL 3.5-5 ALK PHOS (test code = 2199494706) 66 U/L 34-122 ALTv (test code = 1742-6) 20 U/L 5-50 AST(SGOT) (test code = 4443475681) 22 U/L 13-40 eGFR Calculation (Non-) (test code = 2615099569) mL/min/1.73m2 eGFR Calculation () (test code = 3240424638) mL/min/1.73m2 BEVERLY (test code = BEVERLY) Association of Glomerular Filtration Rate (GFR) and Staging of Kidney Disease* + --+ --+ ------+| GFR (mL/min/1.73 m2) ?| With Kidney Damage ?| ?Without Kidney Damage+ --------+ --------+ +| ?>90 ?| ?Stage one ?| ? Normal ?+ ---+ ---+ -------+| ?60-89 ?| ?Stage two ?| ? Decreased GFR ? + --+ --+ ------+| ?30-59 ?| ?Stage three ?| ? Stage three ? + --+ --+ ------+| ?15-29 ?| ?Stage four ? | ? Stage four ?+ ---+ ---+ -------+| ?<15 (or dialysis) ? ?| ?Stage five ? | ? Stage five ?+ ---+ ---+ -------+ *Each stage assumes the associated GFR level has been in effect for at least three months. ?Stages 1 to 5, with or without kidney disease, indicate chronic kidney disease. Notes: Determination of stages one and two (with eGFR >59mL/min/1.73 m2) requires estimation of kidney damage for at least three months as defined by structural or functional abnormalities of the kidney, manifested by either:Pathological abnormalities or Markers of kidney damage (including abnormalities in the composition of the blood or urine or abnormalities in imaging tests). Lab Interpretation (test code = 70124-3) [facility]22:00* Test Item Value Reference Range Interpretation Comme nts LIPASE (test code = 5039336888) 48 U/L 0-220 Lab Interpretation (test cod e = 09977-8) [facility] ([id number])2020-01-05 02:22:00* Test Item Value Reference Range Interpretation Comme nts NA (test code = 4137889895) 139 mmol/L 135-145 K (test code = 0174395912) 4.3 mmol/L 3.5-5 CL (test code = 9365506029) 104 mmol/L 98-108 CO2 TOTAL (test code = 3114773988) 26 mmol/L 23-31 AGAP (test code = 2148561409) 2-16 BUN (test code = 3572646459) 12 mg/dL 7-23 GLUCOSE (test code = 8870625900) 116 mg/dL 70-110 H CREATININE (test code = 8425433064) 0.69 mg/dL 0.6-1.25 TOTAL BILI (test code = 5657444092) 0.2 mg/dL 0.1-1.1 CALCIUM (test code = 3353373393) 9.5 mg/dL 8.6-10.6 T PROTEIN (test code = 4237210120) 7.2 g/dL 6.3-8.2 ALBUMIN (test code = 0397339853) 4.0 g/dL 3.5-5 ALK PHOS (test code = 7976734477) 66 U/L 34-122 ALTv (test code = 1742-6) 20 U/L 5-50 AST(SGOT) (test code = 5657617756) 22 U/L 13-40 eGFR Calculation (Non-) (test code = 8299404858) mL/min/1.73m2 eGFR Calculation () (test code = 1064502784) mL/min/1.73m2 BEVERLY (test code = BEVERLY) Association of Glomerular Filtration Rate (GFR) and Staging of Kidney Disease* + --+ --+ ------+| GFR (mL/min/1.73 m2) ?| With Kidney Damage ?| ?Without Kidney Damage+ --------+ --------+ +| ?>90 ?| ?Stage one ?| ? Normal ?+ ---+ ---+ -------+| ?60-89 ?| ?Stage two ?| ? Decreased GFR ? + --+ --+ ------+| ?30-59 ?| ?Stage three ?| ? Stage three ? + --+ --+ ------+| ?15-29 ?| ?Stage four ? | ? Stage four ?+ ---+ ---+ -------+| ?<15 (or dialysis) ? ?| ?Stage five ? | ? Stage five ?+ ---+ ---+ -------+ *Each stage assumes the associated GFR level has been in effect for at least three months. ?Stages 1 to 5, with or without kidney disease, indicate chronic kidney disease. Notes: Determination of stages one and two (with eGFR >59mL/min/1.73 m2) requires estimation of kidney damage for at least three months as defined by structural or functional abnormalities of the kidney, manifested by either:Pathological abnormalities or Markers of kidney damage (including abnormalities in the composition of the blood or urine or abnormalities in imaging tests). Lab Interpretation (test code = 83648-5) [facility]:22:00* Test Item Value Reference Range Interpretation Comme nts LIPASE (test code = 9708724572) 48 U/L 0-220 Lab Interpretation (test cod e = 92712-1) [facility] ([id number])2020-01-05 02:22:00* Test Item Value Reference Range Interpretation Comme nts NA (test code = 6594611808) 139 mmol/L 135-145 K (test code = 3261411802) 4.3 mmol/L 3.5-5 CL (test code = 4810223191) 104 mmol/L 98-108 CO2 TOTAL (test code = 4548506171) 26 mmol/L 23-31 AGAP (test code = 4417507972) 2-16 BUN (test code = 6282707642) 12 mg/dL 7-23 GLUCOSE (test code = 2256962548) 116 mg/dL 70-110 H CREATININE (test code = 7585654008) 0.69 mg/dL 0.6-1.25 TOTAL BILI (test code = 3890423330) 0.2 mg/dL 0.1-1.1 CALCIUM (test code = 4638413016) 9.5 mg/dL 8.6-10.6 T PROTEIN (test code = 9002897776) 7.2 g/dL 6.3-8.2 ALBUMIN (test code = 2274359618) 4.0 g/dL 3.5-5 ALK PHOS (test code = 9098798522) 66 U/L 34-122 ALTv (test code = 1742-6) 20 U/L 5-50 AST(SGOT) (test code = 1855041092) 22 U/L 13-40 eGFR Calculation (Non-) (test code = 7131655985) mL/min/1.73m2 eGFR Calculation () (test code = 6251149083) mL/min/1.73m2 BEVERLY (test code = BEVERLY) Association of Glomerular Filtration Rate (GFR) and Staging of Kidney Disease* + --+ --+ ------+| GFR (mL/min/1.73 m2) ?| With Kidney Damage ?| ?Without Kidney Damage+ --------+ --------+ +| ?>90 ?| ?Stage one ?| ? Normal ?+ ---+ ---+ -------+| ?60-89 ?| ?Stage two ?| ? Decreased GFR ? + --+ --+ ------+| ?30-59 ?| ?Stage three ?| ? Stage three ? + --+ --+ ------+| ?15-29 ?| ?Stage four ? | ? Stage four ?+ ---+ ---+ -------+| ?<15 (or dialysis) ? ?| ?Stage five ? | ? Stage five ?+ ---+ ---+ -------+ *Each stage assumes the associated GFR level has been in effect for at least three months. ?Stages 1 to 5, with or without kidney disease, indicate chronic kidney disease. Notes: Determination of stages one and two (with eGFR >59mL/min/1.73 m2) requires estimation of kidney damage for at least three months as defined by structural or functional abnormalities of the kidney, manifested by either:Pathological abnormalities or Markers of kidney damage (including abnormalities in the composition of the blood or urine or abnormalities in imaging tests). Lab Interpretation (test code = 24063-4) [facility]22:00* Test Item Value Reference Range Interpretation Comme nts LIPASE (test code = 3774219609) 48 U/L 0-220 Lab Interpretation (test cod e = 14226-0) [facility] ([id number])2020-01-05 02:22:00* Test Item Value Reference Range Interpretation Comme nts NA (test code = 1444753857) 139 mmol/L 135-145 K (test code = 0637350650) 4.3 mmol/L 3.5-5 CL (test code = 3221677410) 104 mmol/L 98-108 CO2 TOTAL (test code = 0009993821) 26 mmol/L 23-31 AGAP (test code = 5104859766) 2-16 BUN (test code = 9936361269) 12 mg/dL 7-23 GLUCOSE (test code = 7686313970) 116 mg/dL 70-110 H CREATININE (test code = 9411231705) 0.69 mg/dL 0.6-1.25 TOTAL BILI (test code = 9371395494) 0.2 mg/dL 0.1-1.1 CALCIUM (test code = 2705474844) 9.5 mg/dL 8.6-10.6 T PROTEIN (test code = 2406128500) 7.2 g/dL 6.3-8.2 ALBUMIN (test code = 9813987225) 4.0 g/dL 3.5-5 ALK PHOS (test code = 4498763319) 66 U/L 34-122 ALTv (test code = 1742-6) 20 U/L 5-50 AST(SGOT) (test code = 7807985525) 22 U/L 13-40 eGFR Calculation (Non-) (test code = 5646528012) mL/min/1.73m2 eGFR Calculation () (test code = 6500226365) mL/min/1.73m2 BEVERLY (test code = BEVERLY) Association of Glomerular Filtration Rate (GFR) and Staging of Kidney Disease* + --+ --+ ------+| GFR (mL/min/1.73 m2) ?| With Kidney Damage ?| ?Without Kidney Damage+ --------+ --------+ +| ?>90 ?| ?Stage one ?| ? Normal ?+ ---+ ---+ -------+| ?60-89 ?| ?Stage two ?| ? Decreased GFR ? + --+ --+ ------+| ?30-59 ?| ?Stage three ?| ? Stage three ? + --+ --+ ------+| ?15-29 ?| ?Stage four ? | ? Stage four ?+ ---+ ---+ -------+| ?<15 (or dialysis) ? ?| ?Stage five ? | ? Stage five ?+ ---+ ---+ -------+ *Each stage assumes the associated GFR level has been in effect for at least three months. ?Stages 1 to 5, with or without kidney disease, indicate chronic kidney disease. Notes: Determination of stages one and two (with eGFR >59mL/min/1.73 m2) requires estimation of kidney damage for at least three months as defined by structural or functional abnormalities of the kidney, manifested by either:Pathological abnormalities or Markers of kidney damage (including abnormalities in the composition of the blood or urine or abnormalities in imaging tests). Lab Interpretation (test code = 32857-5) [facility]22:00* Test Item Value Reference Range Interpretation Comme nts LIPASE (test code = 2169568104) 48 U/L 0-220 Lab Interpretation (test cod e = 43469-7) [facility] ([id number])2020-01-05 02:22:00* Test Item Value Reference Range Interpretation Comme nts NA (test code = 5603215090) 139 mmol/L 135-145 K (test code = 6678835124) 4.3 mmol/L 3.5-5 CL (test code = 2807870882) 104 mmol/L 98-108 CO2 TOTAL (test code = 5369990302) 26 mmol/L 23-31 AGAP (test code = 1410973623) 2-16 BUN (test code = 1555326477) 12 mg/dL 7-23 GLUCOSE (test code = 4962664313) 116 mg/dL 70-110 H CREATININE (test code = 3225277280) 0.69 mg/dL 0.6-1.25 TOTAL BILI (test code = 3522983737) 0.2 mg/dL 0.1-1.1 CALCIUM (test code = 4828499401) 9.5 mg/dL 8.6-10.6 T PROTEIN (test code = 8130486829) 7.2 g/dL 6.3-8.2 ALBUMIN (test code = 6091378255) 4.0 g/dL 3.5-5 ALK PHOS (test code = 4685389015) 66 U/L 34-122 ALTv (test code = 1742-6) 20 U/L 5-50 AST(SGOT) (test code = 3341037050) 22 U/L 13-40 eGFR Calculation (Non-) (test code = 2488925634) mL/min/1.73m2 eGFR Calculation () (test code = 7052487383) mL/min/1.73m2 BEVERLY (test code = BEVERLY) Association of Glomerular Filtration Rate (GFR) and Staging of Kidney Disease* + --+ --+ ------+| GFR (mL/min/1.73 m2) ?| With Kidney Damage ?| ?Without Kidney Damage+ --------+ --------+ +| ?>90 ?| ?Stage one ?| ? Normal ?+ ---+ ---+ -------+| ?60-89 ?| ?Stage two ?| ? Decreased GFR ? + --+ --+ ------+| ?30-59 ?| ?Stage three ?| ? Stage three ? + --+ --+ ------+| ?15-29 ?| ?Stage four ? | ? Stage four ?+ ---+ ---+ -------+| ?<15 (or dialysis) ? ?| ?Stage five ? | ? Stage five ?+ ---+ ---+ -------+ *Each stage assumes the associated GFR level has been in effect for at least three months. ?Stages 1 to 5, with or without kidney disease, indicate chronic kidney disease. Notes: Determination of stages one and two (with eGFR >59mL/min/1.73 m2) requires estimation of kidney damage for at least three months as defined by structural or functional abnormalities of the kidney, manifested by either:Pathological abnormalities or Markers of kidney damage (including abnormalities in the composition of the blood or urine or abnormalities in imaging tests). Lab Interpretation (test code = 23944-1) [facility]22:00* Test Item Value Reference Range Interpretation Comme nts LIPASE (test code = 3631209124) 48 U/L 0-220 Lab Interpretation (test cod e = 22361-8) [facility] ([id number])2020-01-05 02:22:00* Test Item Value Reference Range Interpretation Comme nts NA (test code = 0271216628) 139 mmol/L 135-145 K (test code = 7135824117) 4.3 mmol/L 3.5-5 CL (test code = 6385106291) 104 mmol/L 98-108 CO2 TOTAL (test code = 7910058033) 26 mmol/L 23-31 AGAP (test code = 5041802700) 2-16 BUN (test code = 4345857119) 12 mg/dL 7-23 GLUCOSE (test code = 1986889300) 116 mg/dL 70-110 H CREATININE (test code = 4255782326) 0.69 mg/dL 0.6-1.25 TOTAL BILI (test code = 4174798605) 0.2 mg/dL 0.1-1.1 CALCIUM (test code = 7651203129) 9.5 mg/dL 8.6-10.6 T PROTEIN (test code = 2028376005) 7.2 g/dL 6.3-8.2 ALBUMIN (test code = 6209921028) 4.0 g/dL 3.5-5 ALK PHOS (test code = 6135893771) 66 U/L 34-122 ALTv (test code = 1742-6) 20 U/L 5-50 AST(SGOT) (test code = 2586982837) 22 U/L 13-40 eGFR Calculation (Non-) (test code = 4339530384) mL/min/1.73m2 eGFR Calculation () (test code = 7520375611) mL/min/1.73m2 BEVERLY (test code = BEVERLY) Association of Glomerular Filtration Rate (GFR) and Staging of Kidney Disease* + --+ --+ ------+| GFR (mL/min/1.73 m2) ?| With Kidney Damage ?| ?Without Kidney Damage+ --------+ --------+ +| ?>90 ?| ?Stage one ?| ? Normal ?+ ---+ ---+ -------+| ?60-89 ?| ?Stage two ?| ? Decreased GFR ? + --+ --+ ------+| ?30-59 ?| ?Stage three ?| ? Stage three ? + --+ --+ ------+| ?15-29 ?| ?Stage four ? | ? Stage four ?+ ---+ ---+ -------+| ?<15 (or dialysis) ? ?| ?Stage five ? | ? Stage five ?+ ---+ ---+ -------+ *Each stage assumes the associated GFR level has been in effect for at least three months. ?Stages 1 to 5, with or without kidney disease, indicate chronic kidney disease. Notes: Determination of stages one and two (with eGFR >59mL/min/1.73 m2) requires estimation of kidney damage for at least three months as defined by structural or functional abnormalities of the kidney, manifested by either:Pathological abnormalities or Markers of kidney damage (including abnormalities in the composition of the blood or urine or abnormalities in imaging tests). Lab Interpretation (test code = 90897-0) [facility] [facility] Test Item Value Reference Range Interpretation Comme nts LIPASE (test code = 1124011561) 48 U/L 0-220 Lab Interpretation (test cod e = 08512-8) [facility] ([id number])2020-01-05 02:22:00* Test Item Value Reference Range Interpretation Comme nts NA (test code = 2375485023) 139 mmol/L 135-145 K (test code = 4721839252) 4.3 mmol/L 3.5-5 CL (test code = 6676539996) 104 mmol/L 98-108 CO2 TOTAL (test code = 0583613095) 26 mmol/L 23-31 AGAP (test code = 6931755488) 2-16 BUN (test code = 6865704520) 12 mg/dL 7-23 GLUCOSE (test code = 6565540978) 116 mg/dL 70-110 H CREATININE (test code = 4276135807) 0.69 mg/dL 0.6-1.25 TOTAL BILI (test code = 4653743728) 0.2 mg/dL 0.1-1.1 CALCIUM (test code = 1115083924) 9.5 mg/dL 8.6-10.6 T PROTEIN (test code = 3690590800) 7.2 g/dL 6.3-8.2 ALBUMIN (test code = 7051813541) 4.0 g/dL 3.5-5 ALK PHOS (test code = 9132951170) 66 U/L 34-122 ALTv (test code = 1742-6) 20 U/L 5-50 AST(SGOT) (test code = 2417472725) 22 U/L 13-40 eGFR Calculation (Non-) (test code = 7869494354) mL/min/1.73m2 eGFR Calculation () (test code = 5344245804) mL/min/1.73m2 BEVERLY (test code = BEVERLY) Association of Glomerular Filtration Rate (GFR) and Staging of Kidney Disease* + --+ --+ ------+| GFR (mL/min/1.73 m2) ?| With Kidney Damage ?| ?Without Kidney Damage+ --------+ --------+ +| ?>90 ?| ?Stage one ?| ? Normal ?+ ---+ ---+ -------+| ?60-89 ?| ?Stage two ?| ? Decreased GFR ? + --+ --+ ------+| ?30-59 ?| ?Stage three ?| ? Stage three ? + --+ --+ ------+| ?15-29 ?| ?Stage four ? | ? Stage four ?+ ---+ ---+ -------+| ?<15 (or dialysis) ? ?| ?Stage five ? | ? Stage five ?+ ---+ ---+ -------+ *Each stage assumes the associated GFR level has been in effect for at least three months. ?Stages 1 to 5, with or without kidney disease, indicate chronic kidney disease. Notes: Determination of stages one and two (with eGFR >59mL/min/1.73 m2) requires estimation of kidney damage for at least three months as defined by structural or functional abnormalities of the kidney, manifested by either:Pathological abnormalities or Markers of kidney damage (including abnormalities in the composition of the blood or urine or abnormalities in imaging tests). Lab Interpretation (test code = 78620-6) [facility]* Test Item Value Reference Range Interpretation Comme nts LIPASE (test code = 8764291156) 48 U/L 0-220 Lab Interpretation (test cod e = 24400-5) [facility] ([id number])2020-01-05 02:22:00* Test Item Value Reference Range Interpretation Comme nts NA (test code = 4600008254) 139 mmol/L 135-145 K (test code = 0038664635) 4.3 mmol/L 3.5-5 CL (test code = 5531857809) 104 mmol/L 98-108 CO2 TOTAL (test code = 9188517473) 26 mmol/L 23-31 AGAP (test code = 8003683860) 2-16 BUN (test code = 5500536474) 12 mg/dL 7-23 GLUCOSE (test code = 6798095453) 116 mg/dL 70-110 H CREATININE (test code = 8035536236) 0.69 mg/dL 0.6-1.25 TOTAL BILI (test code = 4765814129) 0.2 mg/dL 0.1-1.1 CALCIUM (test code = 4135582135) 9.5 mg/dL 8.6-10.6 T PROTEIN (test code = 6850286128) 7.2 g/dL 6.3-8.2 ALBUMIN (test code = 1072422216) 4.0 g/dL 3.5-5 ALK PHOS (test code = 8889230499) 66 U/L 34-122 ALTv (test code = 1742-6) 20 U/L 5-50 AST(SGOT) (test code = 3253982983) 22 U/L 13-40 eGFR Calculation (Non-) (test code = 1611011555) mL/min/1.73m2 eGFR Calculation () (test code = 2437238617) mL/min/1.73m2 BEVERLY (test code = BEVERLY) Association of Glomerular Filtration Rate (GFR) and Staging of Kidney Disease* + --+ --+ ------+| GFR (mL/min/1.73 m2) ?| With Kidney Damage ?| ?Without Kidney Damage+ --------+ --------+ +| ?>90 ?| ?Stage one ?| ? Normal ?+ ---+ ---+ -------+| ?60-89 ?| ?Stage two ?| ? Decreased GFR ? + --+ --+ ------+| ?30-59 ?| ?Stage three ?| ? Stage three ? + --+ --+ ------+| ?15-29 ?| ?Stage four ? | ? Stage four ?+ ---+ ---+ -------+| ?<15 (or dialysis) ? ?| ?Stage five ? | ? Stage five ?+ ---+ ---+ -------+ *Each stage assumes the associated GFR level has been in effect for at least three months. ?Stages 1 to 5, with or without kidney disease, indicate chronic kidney disease. Notes: Determination of stages one and two (with eGFR >59mL/min/1.73 m2) requires estimation of kidney damage for at least three months as defined by structural or functional abnormalities of the kidney, manifested by either:Pathological abnormalities or Markers of kidney damage (including abnormalities in the composition of the blood or urine or abnormalities in imaging tests). Lab Interpretation (test code = 33564-2) [facility]* Test Item Value Reference Range Interpretation Comme nts LIPASE (test code = 8737358987) 48 U/L 0-220 Lab Interpretation (test cod e = 51054-1) [facility] ([id number])2020-01-05 02:22:00* Test Item Value Reference Range Interpretation Comme nts NA (test code = 9511467737) 139 mmol/L 135-145 K (test code = 8376068589) 4.3 mmol/L 3.5-5 CL (test code = 3904167045) 104 mmol/L 98-108 CO2 TOTAL (test code = 1503832388) 26 mmol/L 23-31 AGAP (test code = 8828729507) 2-16 BUN (test code = 6132463653) 12 mg/dL 7-23 GLUCOSE (test code = 4449586530) 116 mg/dL 70-110 H CREATININE (test code = 4867200452) 0.69 mg/dL 0.6-1.25 TOTAL BILI (test code = 8329084225) 0.2 mg/dL 0.1-1.1 CALCIUM (test code = 3775467966) 9.5 mg/dL 8.6-10.6 T PROTEIN (test code = 2721946885) 7.2 g/dL 6.3-8.2 ALBUMIN (test code = 0703805252) 4.0 g/dL 3.5-5 ALK PHOS (test code = 1305270902) 66 U/L 34-122 ALTv (test code = 1742-6) 20 U/L 5-50 AST(SGOT) (test code = 1902996025) 22 U/L 13-40 eGFR Calculation (Non-) (test code = 5566217716) mL/min/1.73m2 eGFR Calculation () (test code = 0689760354) mL/min/1.73m2 BEVERLY (test code = BEVERLY) Association of Glomerular Filtration Rate (GFR) and Staging of Kidney Disease* + --+ --+ ------+| GFR (mL/min/1.73 m2) ?| With Kidney Damage ?| ?Without Kidney Damage+ --------+ --------+ +| ?>90 ?| ?Stage one ?| ? Normal ?+ ---+ ---+ -------+| ?60-89 ?| ?Stage two ?| ? Decreased GFR ? + --+ --+ ------+| ?30-59 ?| ?Stage three ?| ? Stage three ? + --+ --+ ------+| ?15-29 ?| ?Stage four ? | ? Stage four ?+ ---+ ---+ -------+| ?<15 (or dialysis) ? ?| ?Stage five ? | ? Stage five ?+ ---+ ---+ -------+ *Each stage assumes the associated GFR level has been in effect for at least three months. ?Stages 1 to 5, with or without kidney disease, indicate chronic kidney disease. Notes: Determination of stages one and two (with eGFR >59mL/min/1.73 m2) requires estimation of kidney damage for at least three months as defined by structural or functional abnormalities of the kidney, manifested by either:Pathological abnormalities or Markers of kidney damage (including abnormalities in the composition of the blood or urine or abnormalities in imaging tests). Lab Interpretation (test code = 67069-5) [facility]* Test Item Value Reference Range Interpretation Comme nts LIPASE (test code = 1258333577) 48 U/L 0-220 Lab Interpretation (test cod e = 81684-1) [facility] ([id number])2020-01-05 02:22:00* Test Item Value Reference Range Interpretation Comme nts NA (test code = 8325728922) 139 mmol/L 135-145 K (test code = 8148934223) 4.3 mmol/L 3.5-5 CL (test code = 8307536999) 104 mmol/L 98-108 CO2 TOTAL (test code = 8562141944) 26 mmol/L 23-31 AGAP (test code = 2657596588) 2-16 BUN (test code = 4335515573) 12 mg/dL 7-23 GLUCOSE (test code = 9573206929) 116 mg/dL 70-110 H CREATININE (test code = 6313856738) 0.69 mg/dL 0.6-1.25 TOTAL BILI (test code = 5252409168) 0.2 mg/dL 0.1-1.1 CALCIUM (test code = 8659393675) 9.5 mg/dL 8.6-10.6 T PROTEIN (test code = 7264588026) 7.2 g/dL 6.3-8.2 ALBUMIN (test code = 7128856841) 4.0 g/dL 3.5-5 ALK PHOS (test code = 4149276248) 66 U/L 34-122 ALTv (test code = 1742-6) 20 U/L 5-50 AST(SGOT) (test code = 7165260247) 22 U/L 13-40 eGFR Calculation (Non-) (test code = 6429922523) mL/min/1.73m2 eGFR Calculation () (test code = 9421357207) mL/min/1.73m2 BEVERLY (test code = BEVERLY) Association of Glomerular Filtration Rate (GFR) and Staging of Kidney Disease* + --+ --+ ------+| GFR (mL/min/1.73 m2) ?| With Kidney Damage ?| ?Without Kidney Damage+ --------+ --------+ +| ?>90 ?| ?Stage one ?| ? Normal ?+ ---+ ---+ -------+| ?60-89 ?| ?Stage two ?| ? Decreased GFR ? + --+ --+ ------+| ?30-59 ?| ?Stage three ?| ? Stage three ? + --+ --+ ------+| ?15-29 ?| ?Stage four ? | ? Stage four ?+ ---+ ---+ -------+| ?<15 (or dialysis) ? ?| ?Stage five ? | ? Stage five ?+ ---+ ---+ -------+ *Each stage assumes the associated GFR level has been in effect for at least three months. ?Stages 1 to 5, with or without kidney disease, indicate chronic kidney disease. Notes: Determination of stages one and two (with eGFR >59mL/min/1.73 m2) requires estimation of kidney damage for at least three months as defined by structural or functional abnormalities of the kidney, manifested by either:Pathological abnormalities or Markers of kidney damage (including abnormalities in the composition of the blood or urine or abnormalities in imaging tests). Lab Interpretation (test code = 79662-0) [facility]:00* Test Item Value Reference Range Interpretation Comme nts LIPASE (test code = 7641269090) 48 U/L 0-220 Lab Interpretation (test cod e = 44951-0) [facility] ([id number])2020-01-05 02:22:00* Test Item Value Reference Range Interpretation Comme nts NA (test code = 8586656898) 139 mmol/L 135-145 K (test code = 2591348434) 4.3 mmol/L 3.5-5 CL (test code = 6806217579) 104 mmol/L 98-108 CO2 TOTAL (test code = 5182552060) 26 mmol/L 23-31 AGAP (test code = 2577795266) 2-16 BUN (test code = 7379364601) 12 mg/dL 7-23 GLUCOSE (test code = 3963340388) 116 mg/dL 70-110 H CREATININE (test code = 8539198355) 0.69 mg/dL 0.6-1.25 TOTAL BILI (test code = 4812859901) 0.2 mg/dL 0.1-1.1 CALCIUM (test code = 1521538867) 9.5 mg/dL 8.6-10.6 T PROTEIN (test code = 5975586710) 7.2 g/dL 6.3-8.2 ALBUMIN (test code = 8653504147) 4.0 g/dL 3.5-5 ALK PHOS (test code = 5490405438) 66 U/L 34-122 ALTv (test code = 1742-6) 20 U/L 5-50 AST(SGOT) (test code = 8467156856) 22 U/L 13-40 eGFR Calculation (Non-) (test code = 8879925729) mL/min/1.73m2 eGFR Calculation () (test code = 9516163996) mL/min/1.73m2 BEVERLY (test code = BEVERLY) Association of Glomerular Filtration Rate (GFR) and Staging of Kidney Disease* + --+ --+ ------+| GFR (mL/min/1.73 m2) ?| With Kidney Damage ?| ?Without Kidney Damage+ --------+ --------+ +| ?>90 ?| ?Stage one ?| ? Normal ?+ ---+ ---+ -------+| ?60-89 ?| ?Stage two ?| ? Decreased GFR ? + --+ --+ ------+| ?30-59 ?| ?Stage three ?| ? Stage three ? + --+ --+ ------+| ?15-29 ?| ?Stage four ? | ? Stage four ?+ ---+ ---+ -------+| ?<15 (or dialysis) ? ?| ?Stage five ? | ? Stage five ?+ ---+ ---+ -------+ *Each stage assumes the associated GFR level has been in effect for at least three months. ?Stages 1 to 5, with or without kidney disease, indicate chronic kidney disease. Notes: Determination of stages one and two (with eGFR >59mL/min/1.73 m2) requires estimation of kidney damage for at least three months as defined by structural or functional abnormalities of the kidney, manifested by either:Pathological abnormalities or Markers of kidney damage (including abnormalities in the composition of the blood or urine or abnormalities in imaging tests). Lab Interpretation (test code = 26505-2) [facility]:00* Test Item Value Reference Range Interpretation Comme nts LIPASE (test code = 8592697926) 48 U/L 0-220 Lab Interpretation (test cod e = 76856-5) [facility] ([id number])2020-01-05 02:22:00* Test Item Value Reference Range Interpretation Comme nts NA (test code = 3621381639) 139 mmol/L 135-145 K (test code = 7145213495) 4.3 mmol/L 3.5-5 CL (test code = 8377297137) 104 mmol/L 98-108 CO2 TOTAL (test code = 6426020706) 26 mmol/L 23-31 AGAP (test code = 0037341341) 2-16 BUN (test code = 9754377579) 12 mg/dL 7-23 GLUCOSE (test code = 2430506193) 116 mg/dL 70-110 H CREATININE (test code = 1901305769) 0.69 mg/dL 0.6-1.25 TOTAL BILI (test code = 7141862266) 0.2 mg/dL 0.1-1.1 CALCIUM (test code = 8542882028) 9.5 mg/dL 8.6-10.6 T PROTEIN (test code = 4882545227) 7.2 g/dL 6.3-8.2 ALBUMIN (test code = 0175169333) 4.0 g/dL 3.5-5 ALK PHOS (test code = 0978532694) 66 U/L 34-122 ALTv (test code = 1742-6) 20 U/L 5-50 AST(SGOT) (test code = 0288278933) 22 U/L 13-40 eGFR Calculation (Non-) (test code = 1448782461) mL/min/1.73m2 eGFR Calculation () (test code = 9013951628) mL/min/1.73m2 BEVERLY (test code = BEVERLY) Association of Glomerular Filtration Rate (GFR) and Staging of Kidney Disease* + --+ --+ ------+| GFR (mL/min/1.73 m2) ?| With Kidney Damage ?| ?Without Kidney Damage+ --------+ --------+ +| ?>90 ?| ?Stage one ?| ? Normal ?+ ---+ ---+ -------+| ?60-89 ?| ?Stage two ?| ? Decreased GFR ? + --+ --+ ------+| ?30-59 ?| ?Stage three ?| ? Stage three ? + --+ --+ ------+| ?15-29 ?| ?Stage four ? | ? Stage four ?+ ---+ ---+ -------+| ?<15 (or dialysis) ? ?| ?Stage five ? | ? Stage five ?+ ---+ ---+ -------+ *Each stage assumes the associated GFR level has been in effect for at least three months. ?Stages 1 to 5, with or without kidney disease, indicate chronic kidney disease. Notes: Determination of stages one and two (with eGFR >59mL/min/1.73 m2) requires estimation of kidney damage for at least three months as defined by structural or functional abnormalities of the kidney, manifested by either:Pathological abnormalities or Markers of kidney damage (including abnormalities in the composition of the blood or urine or abnormalities in imaging tests). Lab Interpretation (test code = 73295-6) [facility]22:00* Test Item Value Reference Range Interpretation Comme nts LIPASE (test code = 0988245325) 48 U/L 0-220 Lab Interpretation (test cod e = 60706-4) [facility] ([id number])2020-01-05 02:22:00* Test Item Value Reference Range Interpretation Comme nts NA (test code = 7209186623) 139 mmol/L 135-145 K (test code = 7366732129) 4.3 mmol/L 3.5-5 CL (test code = 3719629573) 104 mmol/L 98-108 CO2 TOTAL (test code = 8397189170) 26 mmol/L 23-31 AGAP (test code = 9053689919) 2-16 BUN (test code = 8540202278) 12 mg/dL 7-23 GLUCOSE (test code = 3296702681) 116 mg/dL 70-110 H CREATININE (test code = 5728290667) 0.69 mg/dL 0.6-1.25 TOTAL BILI (test code = 3494182571) 0.2 mg/dL 0.1-1.1 CALCIUM (test code = 1473265583) 9.5 mg/dL 8.6-10.6 T PROTEIN (test code = 4473629982) 7.2 g/dL 6.3-8.2 ALBUMIN (test code = 4245677613) 4.0 g/dL 3.5-5 ALK PHOS (test code = 6624973449) 66 U/L 34-122 ALTv (test code = 1742-6) 20 U/L 5-50 AST(SGOT) (test code = 4399292908) 22 U/L 13-40 eGFR Calculation (Non-) (test code = 9491029423) mL/min/1.73m2 eGFR Calculation () (test code = 4404586475) mL/min/1.73m2 BEVERLY (test code = BEVERLY) Association of Glomerular Filtration Rate (GFR) and Staging of Kidney Disease* + --+ --+ ------+| GFR (mL/min/1.73 m2) ?| With Kidney Damage ?| ?Without Kidney Damage+ --------+ --------+ +| ?>90 ?| ?Stage one ?| ? Normal ?+ ---+ ---+ -------+| ?60-89 ?| ?Stage two ?| ? Decreased GFR ? + --+ --+ ------+| ?30-59 ?| ?Stage three ?| ? Stage three ? + --+ --+ ------+| ?15-29 ?| ?Stage four ? | ? Stage four ?+ ---+ ---+ -------+| ?<15 (or dialysis) ? ?| ?Stage five ? | ? Stage five ?+ ---+ ---+ -------+ *Each stage assumes the associated GFR level has been in effect for at least three months. ?Stages 1 to 5, with or without kidney disease, indicate chronic kidney disease. Notes: Determination of stages one and two (with eGFR >59mL/min/1.73 m2) requires estimation of kidney damage for at least three months as defined by structural or functional abnormalities of the kidney, manifested by either:Pathological abnormalities or Markers of kidney damage (including abnormalities in the composition of the blood or urine or abnormalities in imaging tests). Lab Interpretation (test code = 57322-1) [facility]* Test Item Value Reference Range Interpretation Comme nts LIPASE (test code = 9813747145) 48 U/L 0-220 Lab Interpretation (test cod e = 12232-4) [facility] ([id number])2020-01-05 02:22:00* Test Item Value Reference Range Interpretation Comme nts NA (test code = 8753927697) 139 mmol/L 135-145 K (test code = 3897365511) 4.3 mmol/L 3.5-5 CL (test code = 3962302090) 104 mmol/L 98-108 CO2 TOTAL (test code = 5660719520) 26 mmol/L 23-31 AGAP (test code = 4948643821) 2-16 BUN (test code = 0510898353) 12 mg/dL 7-23 GLUCOSE (test code = 6237175909) 116 mg/dL 70-110 H CREATININE (test code = 3280649921) 0.69 mg/dL 0.6-1.25 TOTAL BILI (test code = 2072686529) 0.2 mg/dL 0.1-1.1 CALCIUM (test code = 8812023940) 9.5 mg/dL 8.6-10.6 T PROTEIN (test code = 9188809780) 7.2 g/dL 6.3-8.2 ALBUMIN (test code = 5175976015) 4.0 g/dL 3.5-5 ALK PHOS (test code = 9653292647) 66 U/L 34-122 ALTv (test code = 1742-6) 20 U/L 5-50 AST(SGOT) (test code = 3571003316) 22 U/L 13-40 eGFR Calculation (Non-) (test code = 5642300190) mL/min/1.73m2 eGFR Calculation () (test code = 8344256964) mL/min/1.73m2 BEVERLY (test code = BEVERLY) Association of Glomerular Filtration Rate (GFR) and Staging of Kidney Disease* + --+ --+ ------+| GFR (mL/min/1.73 m2) ?| With Kidney Damage ?| ?Without Kidney Damage+ --------+ --------+ +| ?>90 ?| ?Stage one ?| ? Normal ?+ ---+ ---+ -------+| ?60-89 ?| ?Stage two ?| ? Decreased GFR ? + --+ --+ ------+| ?30-59 ?| ?Stage three ?| ? Stage three ? + --+ --+ ------+| ?15-29 ?| ?Stage four ? | ? Stage four ?+ ---+ ---+ -------+| ?<15 (or dialysis) ? ?| ?Stage five ? | ? Stage five ?+ ---+ ---+ -------+ *Each stage assumes the associated GFR level has been in effect for at least three months. ?Stages 1 to 5, with or without kidney disease, indicate chronic kidney disease. Notes: Determination of stages one and two (with eGFR >59mL/min/1.73 m2) requires estimation of kidney damage for at least three months as defined by structural or functional abnormalities of the kidney, manifested by either:Pathological abnormalities or Markers of kidney damage (including abnormalities in the composition of the blood or urine or abnormalities in imaging tests). Lab Interpretation (test code = 91104-4) [facility]* Test Item Value Reference Range Interpretation Comme nts LIPASE (test code = 9119572052) 48 U/L 0-220 Lab Interpretation (test cod e = 74876-1) [facility] ([id number])2020-01-05 02:22:00* Test Item Value Reference Range Interpretation Comme nts NA (test code = 0734321662) 139 mmol/L 135-145 K (test code = 3652280420) 4.3 mmol/L 3.5-5 CL (test code = 5125885332) 104 mmol/L 98-108 CO2 TOTAL (test code = 5375552515) 26 mmol/L 23-31 AGAP (test code = 1684141089) 2-16 BUN (test code = 0034248935) 12 mg/dL 7-23 GLUCOSE (test code = 0267958311) 116 mg/dL 70-110 H CREATININE (test code = 9694468554) 0.69 mg/dL 0.6-1.25 TOTAL BILI (test code = 6799851912) 0.2 mg/dL 0.1-1.1 CALCIUM (test code = 7812857808) 9.5 mg/dL 8.6-10.6 T PROTEIN (test code = 8456164007) 7.2 g/dL 6.3-8.2 ALBUMIN (test code = 7871291515) 4.0 g/dL 3.5-5 ALK PHOS (test code = 1961707590) 66 U/L 34-122 ALTv (test code = 1742-6) 20 U/L 5-50 AST(SGOT) (test code = 0646365666) 22 U/L 13-40 eGFR Calculation (Non-) (test code = 0359939262) mL/min/1.73m2 eGFR Calculation () (test code = 3329697031) mL/min/1.73m2 BEVERLY (test code = BEVERLY) Association of Glomerular Filtration Rate (GFR) and Staging of Kidney Disease* + --+ --+ ------+| GFR (mL/min/1.73 m2) ?| With Kidney Damage ?| ?Without Kidney Damage+ --------+ --------+ +| ?>90 ?| ?Stage one ?| ? Normal ?+ ---+ ---+ -------+| ?60-89 ?| ?Stage two ?| ? Decreased GFR ? + --+ --+ ------+| ?30-59 ?| ?Stage three ?| ? Stage three ? + --+ --+ ------+| ?15-29 ?| ?Stage four ? | ? Stage four ?+ ---+ ---+ -------+| ?<15 (or dialysis) ? ?| ?Stage five ? | ? Stage five ?+ ---+ ---+ -------+ *Each stage assumes the associated GFR level has been in effect for at least three months. ?Stages 1 to 5, with or without kidney disease, indicate chronic kidney disease. Notes: Determination of stages one and two (with eGFR >59mL/min/1.73 m2) requires estimation of kidney damage for at least three months as defined by structural or functional abnormalities of the kidney, manifested by either:Pathological abnormalities or Markers of kidney damage (including abnormalities in the composition of the blood or urine or abnormalities in imaging tests). Lab Interpretation (test code = 06978-7) [facility]* Test Item Value Reference Range Interpretation Comme nts LIPASE (test code = 5275832444) 48 U/L 0-220 Lab Interpretation (test cod e = 06953-6) [facility] ([id number])2020-01-05 02:22:00* Test Item Value Reference Range Interpretation Comme nts NA (test code = 2846545163) 139 mmol/L 135-145 K (test code = 4888462859) 4.3 mmol/L 3.5-5 CL (test code = 7468126673) 104 mmol/L 98-108 CO2 TOTAL (test code = 3379676535) 26 mmol/L 23-31 AGAP (test code = 9306933621) 2-16 BUN (test code = 6741270007) 12 mg/dL 7-23 GLUCOSE (test code = 0931562095) 116 mg/dL 70-110 H CREATININE (test code = 9608583367) 0.69 mg/dL 0.6-1.25 TOTAL BILI (test code = 3625186740) 0.2 mg/dL 0.1-1.1 CALCIUM (test code = 6781928919) 9.5 mg/dL 8.6-10.6 T PROTEIN (test code = 9348286494) 7.2 g/dL 6.3-8.2 ALBUMIN (test code = 0917160906) 4.0 g/dL 3.5-5 ALK PHOS (test code = 5203332637) 66 U/L 34-122 ALTv (test code = 1742-6) 20 U/L 5-50 AST(SGOT) (test code = 0916932182) 22 U/L 13-40 eGFR Calculation (Non-) (test code = 3844896015) mL/min/1.73m2 eGFR Calculation () (test code = 9182732123) mL/min/1.73m2 BEVERLY (test code = BEVERLY) Association of Glomerular Filtration Rate (GFR) and Staging of Kidney Disease* + --+ --+ ------+| GFR (mL/min/1.73 m2) ?| With Kidney Damage ?| ?Without Kidney Damage+ --------+ --------+ +| ?>90 ?| ?Stage one ?| ? Normal ?+ ---+ ---+ -------+| ?60-89 ?| ?Stage two ?| ? Decreased GFR ? + --+ --+ ------+| ?30-59 ?| ?Stage three ?| ? Stage three ? + --+ --+ ------+| ?15-29 ?| ?Stage four ? | ? Stage four ?+ ---+ ---+ -------+| ?<15 (or dialysis) ? ?| ?Stage five ? | ? Stage five ?+ ---+ ---+ -------+ *Each stage assumes the associated GFR level has been in effect for at least three months. ?Stages 1 to 5, with or without kidney disease, indicate chronic kidney disease. Notes: Determination of stages one and two (with eGFR >59mL/min/1.73 m2) requires estimation of kidney damage for at least three months as defined by structural or functional abnormalities of the kidney, manifested by either:Pathological abnormalities or Markers of kidney damage (including abnormalities in the composition of the blood or urine or abnormalities in imaging tests). Lab Interpretation (test code = 91529-3) [facility]* Test Item Value Reference Range Interpretation Comme nts LIPASE (test code = 4928001335) 48 U/L 0-220 Lab Interpretation (test cod e = 68599-5) [facility] ([id number])2020-01-05 02:22:00* Test Item Value Reference Range Interpretation Comme nts NA (test code = 7188629780) 139 mmol/L 135-145 K (test code = 0788533239) 4.3 mmol/L 3.5-5 CL (test code = 7130132560) 104 mmol/L 98-108 CO2 TOTAL (test code = 6374621851) 26 mmol/L 23-31 AGAP (test code = 0163220644) 2-16 BUN (test code = 5211825011) 12 mg/dL 7-23 GLUCOSE (test code = 3618929804) 116 mg/dL 70-110 H CREATININE (test code = 2467033024) 0.69 mg/dL 0.6-1.25 TOTAL BILI (test code = 3942379781) 0.2 mg/dL 0.1-1.1 CALCIUM (test code = 5251884032) 9.5 mg/dL 8.6-10.6 T PROTEIN (test code = 6097165989) 7.2 g/dL 6.3-8.2 ALBUMIN (test code = 1664944348) 4.0 g/dL 3.5-5 ALK PHOS (test code = 0702660504) 66 U/L 34-122 ALTv (test code = 1742-6) 20 U/L 5-50 AST(SGOT) (test code = 9058990070) 22 U/L 13-40 eGFR Calculation (Non-) (test code = 2027194930) mL/min/1.73m2 eGFR Calculation () (test code = 0915948381) mL/min/1.73m2 BEVERLY (test code = BEVERLY) Association of Glomerular Filtration Rate (GFR) and Staging of Kidney Disease* + --+ --+ ------+| GFR (mL/min/1.73 m2) ?| With Kidney Damage ?| ?Without Kidney Damage+ --------+ --------+ +| ?>90 ?| ?Stage one ?| ? Normal ?+ ---+ ---+ -------+| ?60-89 ?| ?Stage two ?| ? Decreased GFR ? + --+ --+ ------+| ?30-59 ?| ?Stage three ?| ? Stage three ? + --+ --+ ------+| ?15-29 ?| ?Stage four ? | ? Stage four ?+ ---+ ---+ -------+| ?<15 (or dialysis) ? ?| ?Stage five ? | ? Stage five ?+ ---+ ---+ -------+ *Each stage assumes the associated GFR level has been in effect for at least three months. ?Stages 1 to 5, with or without kidney disease, indicate chronic kidney disease. Notes: Determination of stages one and two (with eGFR >59mL/min/1.73 m2) requires estimation of kidney damage for at least three months as defined by structural or functional abnormalities of the kidney, manifested by either:Pathological abnormalities or Markers of kidney damage (including abnormalities in the composition of the blood or urine or abnormalities in imaging tests). Lab Interpretation (test code = 09752-3) [facility]* Test Item Value Reference Range Interpretation Comme nts LIPASE (test code = 6151558761) 48 U/L 0-220 Lab Interpretation (test cod e = 68394-1) [facility] ([id number])2020-01-05 02:22:00* Test Item Value Reference Range Interpretation Comme nts NA (test code = 3841074009) 139 mmol/L 135-145 K (test code = 9229607469) 4.3 mmol/L 3.5-5 CL (test code = 1610375656) 104 mmol/L 98-108 CO2 TOTAL (test code = 3213281702) 26 mmol/L 23-31 AGAP (test code = 1519333800) 2-16 BUN (test code = 4558694696) 12 mg/dL 7-23 GLUCOSE (test code = 3260931405) 116 mg/dL 70-110 H CREATININE (test code = 0570165645) 0.69 mg/dL 0.6-1.25 TOTAL BILI (test code = 8458473707) 0.2 mg/dL 0.1-1.1 CALCIUM (test code = 8804479489) 9.5 mg/dL 8.6-10.6 T PROTEIN (test code = 8373373025) 7.2 g/dL 6.3-8.2 ALBUMIN (test code = 2894551807) 4.0 g/dL 3.5-5 ALK PHOS (test code = 4398959953) 66 U/L 34-122 ALTv (test code = 1742-6) 20 U/L 5-50 AST(SGOT) (test code = 9944487165) 22 U/L 13-40 eGFR Calculation (Non-) (test code = 1824007546) mL/min/1.73m2 eGFR Calculation () (test code = 4993474553) mL/min/1.73m2 BEVERLY (test code = BEVERLY) Association of Glomerular Filtration Rate (GFR) and Staging of Kidney Disease* + --+ --+ ------+| GFR (mL/min/1.73 m2) ?| With Kidney Damage ?| ?Without Kidney Damage+ --------+ --------+ +| ?>90 ?| ?Stage one ?| ? Normal ?+ ---+ ---+ -------+| ?60-89 ?| ?Stage two ?| ? Decreased GFR ? + --+ --+ ------+| ?30-59 ?| ?Stage three ?| ? Stage three ? + --+ --+ ------+| ?15-29 ?| ?Stage four ? | ? Stage four ?+ ---+ ---+ -------+| ?<15 (or dialysis) ? ?| ?Stage five ? | ? Stage five ?+ ---+ ---+ -------+ *Each stage assumes the associated GFR level has been in effect for at least three months. ?Stages 1 to 5, with or without kidney disease, indicate chronic kidney disease. Notes: Determination of stages one and two (with eGFR >59mL/min/1.73 m2) requires estimation of kidney damage for at least three months as defined by structural or functional abnormalities of the kidney, manifested by either:Pathological abnormalities or Markers of kidney damage (including abnormalities in the composition of the blood or urine or abnormalities in imaging tests). Lab Interpretation (test code = 14301-9) [facility]* Test Item Value Reference Range Interpretation Comme nts LIPASE (test code = 3180383708) 48 U/L 0-220 Lab Interpretation (test cod e = 09399-1) [facility] ([id number])2020-01-05 02:22:00* Test Item Value Reference Range Interpretation Comme nts NA (test code = 9643302815) 139 mmol/L 135-145 K (test code = 4552827227) 4.3 mmol/L 3.5-5 CL (test code = 6876199781) 104 mmol/L 98-108 CO2 TOTAL (test code = 3293589999) 26 mmol/L 23-31 AGAP (test code = 0761121228) 2-16 BUN (test code = 6548616897) 12 mg/dL 7-23 GLUCOSE (test code = 2332565912) 116 mg/dL 70-110 H CREATININE (test code = 2069643978) 0.69 mg/dL 0.6-1.25 TOTAL BILI (test code = 0444536295) 0.2 mg/dL 0.1-1.1 CALCIUM (test code = 0932581196) 9.5 mg/dL 8.6-10.6 T PROTEIN (test code = 1350324750) 7.2 g/dL 6.3-8.2 ALBUMIN (test code = 6949471161) 4.0 g/dL 3.5-5 ALK PHOS (test code = 0181641572) 66 U/L 34-122 ALTv (test code = 1742-6) 20 U/L 5-50 AST(SGOT) (test code = 7899491611) 22 U/L 13-40 eGFR Calculation (Non-) (test code = 0658864327) mL/min/1.73m2 eGFR Calculation () (test code = 3939117947) mL/min/1.73m2 BEVERLY (test code = BEVERLY) Association of Glomerular Filtration Rate (GFR) and Staging of Kidney Disease* + --+ --+ ------+| GFR (mL/min/1.73 m2) ?| With Kidney Damage ?| ?Without Kidney Damage+ --------+ --------+ +| ?>90 ?| ?Stage one ?| ? Normal ?+ ---+ ---+ -------+| ?60-89 ?| ?Stage two ?| ? Decreased GFR ? + --+ --+ ------+| ?30-59 ?| ?Stage three ?| ? Stage three ? + --+ --+ ------+| ?15-29 ?| ?Stage four ? | ? Stage four ?+ ---+ ---+ -------+| ?<15 (or dialysis) ? ?| ?Stage five ? | ? Stage five ?+ ---+ ---+ -------+ *Each stage assumes the associated GFR level has been in effect for at least three months. ?Stages 1 to 5, with or without kidney disease, indicate chronic kidney disease. Notes: Determination of stages one and two (with eGFR >59mL/min/1.73 m2) requires estimation of kidney damage for at least three months as defined by structural or functional abnormalities of the kidney, manifested by either:Pathological abnormalities or Markers of kidney damage (including abnormalities in the composition of the blood or urine or abnormalities in imaging tests). Lab Interpretation (test code = 86578-5) [facility]* Test Item Value Reference Range Interpretation Comme nts LIPASE (test code = 7328021434) 48 U/L 0-220 Lab Interpretation (test cod e = 65300-4) [facility] ([id number])2020-01-05 02:22:00* Test Item Value Reference Range Interpretation Comme nts NA (test code = 4949740867) 139 mmol/L 135-145 K (test code = 9064280759) 4.3 mmol/L 3.5-5 CL (test code = 5606731932) 104 mmol/L 98-108 CO2 TOTAL (test code = 8478849653) 26 mmol/L 23-31 AGAP (test code = 4282325238) 2-16 BUN (test code = 6875724742) 12 mg/dL 7-23 GLUCOSE (test code = 7868699802) 116 mg/dL 70-110 H CREATININE (test code = 3088476678) 0.69 mg/dL 0.6-1.25 TOTAL BILI (test code = 5774466850) 0.2 mg/dL 0.1-1.1 CALCIUM (test code = 5264452789) 9.5 mg/dL 8.6-10.6 T PROTEIN (test code = 6131387869) 7.2 g/dL 6.3-8.2 ALBUMIN (test code = 8885635610) 4.0 g/dL 3.5-5 ALK PHOS (test code = 7748093928) 66 U/L 34-122 ALTv (test code = 1742-6) 20 U/L 5-50 AST(SGOT) (test code = 0230768942) 22 U/L 13-40 eGFR Calculation (Non-) (test code = 4585091567) mL/min/1.73m2 eGFR Calculation () (test code = 7275203281) mL/min/1.73m2 BEVERLY (test code = BEVERLY) Association of Glomerular Filtration Rate (GFR) and Staging of Kidney Disease* + --+ --+ ------+| GFR (mL/min/1.73 m2) ?| With Kidney Damage ?| ?Without Kidney Damage+ --------+ --------+ +| ?>90 ?| ?Stage one ?| ? Normal ?+ ---+ ---+ -------+| ?60-89 ?| ?Stage two ?| ? Decreased GFR ? + --+ --+ ------+| ?30-59 ?| ?Stage three ?| ? Stage three ? + --+ --+ ------+| ?15-29 ?| ?Stage four ? | ? Stage four ?+ ---+ ---+ -------+| ?<15 (or dialysis) ? ?| ?Stage five ? | ? Stage five ?+ ---+ ---+ -------+ *Each stage assumes the associated GFR level has been in effect for at least three months. ?Stages 1 to 5, with or without kidney disease, indicate chronic kidney disease. Notes: Determination of stages one and two (with eGFR >59mL/min/1.73 m2) requires estimation of kidney damage for at least three months as defined by structural or functional abnormalities of the kidney, manifested by either:Pathological abnormalities or Markers of kidney damage (including abnormalities in the composition of the blood or urine or abnormalities in imaging tests). Lab Interpretation (test code = 66895-8) [facility]:00* Test Item Value Reference Range Interpretation Comme nts LIPASE (test code = 7629505310) 48 U/L 0-220 Lab Interpretation (test cod e = 66095-2) Normal [facility] ([id number])2020-01-05 02:22:00* Test Item Value Reference Range Interpretation Comme nts NA (test code = 1960578278) 139 mmol/L 135-145 K (test code = 4111227948) 4.3 mmol/L 3.5-5 CL (test code = 4134956292) 104 mmol/L 98-108 CO2 TOTAL (test code = 1250374900) 26 mmol/L 23-31 AGAP (test code = 9549397760) 2-16 BUN (test code = 2963361497) 12 mg/dL 7-23 GLUCOSE (test code = 2301648024) 116 mg/dL 70-110 H CREATININE (test code = 0184077192) 0.69 mg/dL 0.6-1.25 TOTAL BILI (test code = 6491871888) 0.2 mg/dL 0.1-1.1 CALCIUM (test code = 3767007726) 9.5 mg/dL 8.6-10.6 T PROTEIN (test code = 9648978990) 7.2 g/dL 6.3-8.2 ALBUMIN (test code = 4164778552) 4.0 g/dL 3.5-5 ALK PHOS (test code = 3874029643) 66 U/L 34-122 ALTv (test code = 1742-6) 20 U/L 5-50 AST(SGOT) (test code = 4561227803) 22 U/L 13-40 eGFR Calculation (Non-) (test code = 1234534424) mL/min/1.73m2 eGFR Calculation () (test code = 2894177096) mL/min/1.73m2 BEVERLY (test code = BEVERLY) Association of Glomerular Filtration Rate (GFR) and Staging of Kidney Disease* + --+ --+ ------+| GFR (mL/min/1.73 m2) ?| With Kidney Damage ?| ?Without Kidney Damage+ --------+ --------+ +| ?>90 ?| ?Stage one ?| ? Normal ?+ ---+ ---+ -------+| ?60-89 ?| ?Stage two ?| ? Decreased GFR ? + --+ --+ ------+| ?30-59 ?| ?Stage three ?| ? Stage three ? + --+ --+ ------+| ?15-29 ?| ?Stage four ? | ? Stage four ?+ ---+ ---+ -------+| ?<15 (or dialysis) ? ?| ?Stage five ? | ? Stage five ?+ ---+ ---+ -------+ *Each stage assumes the associated GFR level has been in effect for at least three months. ?Stages 1 to 5, with or without kidney disease, indicate chronic kidney disease. Notes: Determination of stages one and two (with eGFR >59mL/min/1.73 m2) requires estimation of kidney damage for at least three months as defined by structural or functional abnormalities of the kidney, manifested by either:Pathological abnormalities or Markers of kidney damage (including abnormalities in the composition of the blood or urine or abnormalities in imaging tests). Lab Interpretation (test code = 17381-0) [facility]:00* Test Item Value Reference Range Interpretation Comme nts LIPASE (test code = 3605179160) 48 U/L 0-220 Lab Interpretation (test cod e = 11105-4) [facility] ([id number])2020-01-05 02:22:00* Test Item Value Reference Range Interpretation Comme nts NA (test code = 0634045359) 139 mmol/L 135-145 K (test code = 1399556671) 4.3 mmol/L 3.5-5 CL (test code = 7675832572) 104 mmol/L 98-108 CO2 TOTAL (test code = 9546070963) 26 mmol/L 23-31 AGAP (test code = 3770506415) 2-16 BUN (test code = 3364182207) 12 mg/dL 7-23 GLUCOSE (test code = 4499815265) 116 mg/dL 70-110 H CREATININE (test code = 4614415143) 0.69 mg/dL 0.6-1.25 TOTAL BILI (test code = 7836359427) 0.2 mg/dL 0.1-1.1 CALCIUM (test code = 3120547808) 9.5 mg/dL 8.6-10.6 T PROTEIN (test code = 2391902440) 7.2 g/dL 6.3-8.2 ALBUMIN (test code = 6233301068) 4.0 g/dL 3.5-5 ALK PHOS (test code = 9976785433) 66 U/L 34-122 ALTv (test code = 1742-6) 20 U/L 5-50 AST(SGOT) (test code = 1889495294) 22 U/L 13-40 eGFR Calculation (Non-) (test code = 0196206321) mL/min/1.73m2 eGFR Calculation () (test code = 2669512045) mL/min/1.73m2 BEVERLY (test code = BEVERLY) Association of Glomerular Filtration Rate (GFR) and Staging of Kidney Disease* + --+ --+ ------+| GFR (mL/min/1.73 m2) ?| With Kidney Damage ?| ?Without Kidney Damage+ --------+ --------+ +| ?>90 ?| ?Stage one ?| ? Normal ?+ ---+ ---+ -------+| ?60-89 ?| ?Stage two ?| ? Decreased GFR ? + --+ --+ ------+| ?30-59 ?| ?Stage three ?| ? Stage three ? + --+ --+ ------+| ?15-29 ?| ?Stage four ? | ? Stage four ?+ ---+ ---+ -------+| ?<15 (or dialysis) ? ?| ?Stage five ? | ? Stage five ?+ ---+ ---+ -------+ *Each stage assumes the associated GFR level has been in effect for at least three months. ?Stages 1 to 5, with or without kidney disease, indicate chronic kidney disease. Notes: Determination of stages one and two (with eGFR >59mL/min/1.73 m2) requires estimation of kidney damage for at least three months as defined by structural or functional abnormalities of the kidney, manifested by either:Pathological abnormalities or Markers of kidney damage (including abnormalities in the composition of the blood or urine or abnormalities in imaging tests). Lab Interpretation (test code = 83287-6) [facility]22:00* Test Item Value Reference Range Interpretation Comme nts LIPASE (test code = 1321643387) 48 U/L 0-220 Lab Interpretation (test cod e = 73355-1) Normal [facility] ([id number])2020-01-05 02:22:00* Test Item Value Reference Range Interpretation Comme nts NA (test code = 3885424665) 139 mmol/L 135-145 K (test code = 9723777381) 4.3 mmol/L 3.5-5 CL (test code = 3802584013) 104 mmol/L 98-108 CO2 TOTAL (test code = 9746913647) 26 mmol/L 23-31 AGAP (test code = 9873419209) 2-16 BUN (test code = 7529344615) 12 mg/dL 7-23 GLUCOSE (test code = 7161185339) 116 mg/dL 70-110 H CREATININE (test code = 0853420485) 0.69 mg/dL 0.6-1.25 TOTAL BILI (test code = 9128966742) 0.2 mg/dL 0.1-1.1 CALCIUM (test code = 4503155264) 9.5 mg/dL 8.6-10.6 T PROTEIN (test code = 8465979999) 7.2 g/dL 6.3-8.2 ALBUMIN (test code = 1372849642) 4.0 g/dL 3.5-5 ALK PHOS (test code = 7043056462) 66 U/L 34-122 ALTv (test code = 1742-6) 20 U/L 5-50 AST(SGOT) (test code = 5957695911) 22 U/L 13-40 eGFR Calculation (Non-) (test code = 5677940368) mL/min/1.73m2 eGFR Calculation () (test code = 1010728929) mL/min/1.73m2 BEVERLY (test code = BEVERLY) Association of Glomerular Filtration Rate (GFR) and Staging of Kidney Disease* + --+ --+ ------+| GFR (mL/min/1.73 m2) ?| With Kidney Damage ?| ?Without Kidney Damage+ --------+ --------+ +| ?>90 ?| ?Stage one ?| ? Normal ?+ ---+ ---+ -------+| ?60-89 ?| ?Stage two ?| ? Decreased GFR ? + --+ --+ ------+| ?30-59 ?| ?Stage three ?| ? Stage three ? + --+ --+ ------+| ?15-29 ?| ?Stage four ? | ? Stage four ?+ ---+ ---+ -------+| ?<15 (or dialysis) ? ?| ?Stage five ? | ? Stage five ?+ ---+ ---+ -------+ *Each stage assumes the associated GFR level has been in effect for at least three months. ?Stages 1 to 5, with or without kidney disease, indicate chronic kidney disease. Notes: Determination of stages one and two (with eGFR >59mL/min/1.73 m2) requires estimation of kidney damage for at least three months as defined by structural or functional abnormalities of the kidney, manifested by either:Pathological abnormalities or Markers of kidney damage (including abnormalities in the composition of the blood or urine or abnormalities in imaging tests). Lab Interpretation (test code = 62789-8) [facility]22:00* Test Item Value Reference Range Interpretation Comme nts LIPASE (test code = 1371828005) 48 U/L 0-220 Lab Interpretation (test cod e = 58568-8) Normal [facility] 02:22:00* Test Item Value Reference Range Interpretation Comme nts LIPASE (test code = 6913086498) 48 U/L 0-220 Lab Interpretation (test cod e = 50441-2) Normal [facility] 02:22:00* Test Item Value Reference Range Interpretation Comme nts LIPASE (test code = 6928231472) 48 U/L 0-220 Lab Interpretation (test cod e = 99185-8) Normal [facility] OdldrlPFYXDZ7915-06-39 02:22:00* Test Item Value Reference Range Interpretation Comme nts LIPASE (test code = 0093971984) 48 U/L 0-220 Lab Interpretation (test cod e = 89527-0) [facility] 02:22:00* Test Item Value Reference Range Interpretation Comme nts LIPASE (test code = 3938392038) 48 U/L 0-220 Lab Interpretation (test cod e = 52544-2) [facility] RdovliEGLYTS8888-75-97 02:22:00* Test Item Value Reference Range Interpretation Comme nts LIPASE (test code = 3033959233) 48 U/L 0-220 Lab Interpretation (test cod e = 90521-3) Normal [facility] AhcuuiJDKBMS3384-21-11 02:22:00* Test Item Value Reference Range Interpretation Comme nts LIPASE (test code = 0631858623) 48 U/L 0-220 Lab Interpretation (test cod e = 45993-4) Normal [facility] XiykalBNAQPM1065-43-49 02:22:00* Test Item Value Reference Range Interpretation Comme nts LIPASE (test code = 5985860604) 48 U/L 0-220 Lab Interpretation (test cod e = 62168-0) Normal [facility] LqczgxQWVWUPZRVS0290-40-88 02:13:00* Test Item Value Reference Range Interpretation Comme nts APPEARANCE (test code = 5674499591) Clear Clear COLOR (test code = 0253418244) Straw Yellow A PH (test code = 3419217796) 4.8-8.0 SP GRAVITY (test code = 7376329538) 1.003-1.030 GLU U QUAL (test code = 9589262614) Normal Normal BLOOD (test code = 8843797558) Negative Negative KETONES (test code = 7262768970) Negative Negative PROTEIN (test code = 2887-8) Negative Negative UROBILIN (test code = 0745250972) Normal Normal BILIRUBIN (test code = 7678963856) Negative Negative NITRITE (test code = 0597965896) Negative Negative LEUK BUTCH (test code = 1621220483) Negative Negative RBC/HPF (test code = 8642170775) <1 See_Comment [Automated [employer]] The system which generated this result transmitted reference range: 0 - 3 HPF. The reference range was not used to interpret this result as normal/abnormal. WBC/HPF (test code = 0348544726) See_Comment [[employer]ated [employer]] The system which generated this result transmitted reference range: 0 - 5 HPF. The reference range was not used to interpret this result as normal/abnormal. BACTERIA (test code = 7162672301) Negative Negative Lab Interpretation (test code = 90806-7) [facility] 02:13:00* Test Item Value Reference Range Interpretation Comme nts APPEARANCE (test code = 8663068720) Clear Clear COLOR (test code = 1983825314) Straw Yellow A PH (test code = 6884581363) 4.8-8.0 SP GRAVITY (test code = 1453983736) 1.003-1.030 GLU U QUAL (test code = 0047855574) Normal Normal BLOOD (test code = 9830284388) Negative Negative KETONES (test code = 9040996637) Negative Negative PROTEIN (test code = 2887-8) Negative Negative UROBILIN (test code = 8703307222) Normal Normal BILIRUBIN (test code = 7621986084) Negative Negative NITRITE (test code = 1252265766) Negative Negative LEUK BUTCH (test code = 0318956157) Negative Negative RBC/HPF (test code = 7428523994) <1 See_Comment [[employer]ated [employer]] The system which generated this result transmitted reference range: 0 - 3 HPF. The reference range was not used to interpret this result as normal/abnormal. WBC/HPF (test code = 6713622557) See_Comment [[employer]ated [employer]] The system which generated this result transmitted reference range: 0 - 5 HPF. The reference range was not used to interpret this result as normal/abnormal. BACTERIA (test code = 2615970926) Negative Negative Lab Interpretation (test code = 03625-5) [facility] Test Item Value Reference Range Interpretation Comme nts APPEARANCE (test code = 7787294950) Clear Clear COLOR (test code = 7484809283) Straw Yellow A PH (test code = 0426827728) 4.8-8.0 SP GRAVITY (test code = 1597032061) 1.003-1.030 GLU U QUAL (test code = 6072988955) Normal Normal BLOOD (test code = 6686444889) Negative Negative KETONES (test code = 3095764884) Negative Negative PROTEIN (test code = 2887-8) Negative Negative UROBILIN (test code = 7423934278) Normal Normal BILIRUBIN (test code = 1827502977) Negative Negative NITRITE (test code = 2202151187) Negative Negative LEUK BUTCH (test code = 2006475647) Negative Negative RBC/HPF (test code = 1480392320) <1 See_Comment [Automated [employer]] The system which generated this result transmitted reference range: 0 - 3 HPF. The reference range was not used to interpret this result as normal/abnormal. WBC/HPF (test code = 2574795458) See_Comment [[employer]ated [employer]] The system which generated this result transmitted reference range: 0 - 5 HPF. The reference range was not used to interpret this result as normal/abnormal. BACTERIA (test code = 6830586073) Negative Negative Lab Interpretation (test code = 39167-5) [facility] 02:13:00* Test Item Value Reference Range Interpretation Comme nts APPEARANCE (test code = 1780163350) Clear Clear COLOR (test code = 7437625253) Straw Yellow A PH (test code = 7275877943) 4.8-8.0 SP GRAVITY (test code = 6216345155) 1.003-1.030 GLU U QUAL (test code = 9463540676) Normal Normal BLOOD (test code = 7410975670) Negative Negative KETONES (test code = 6524929296) Negative Negative PROTEIN (test code = 2887-8) Negative Negative UROBILIN (test code = 2825767128) Normal Normal BILIRUBIN (test code = 5963524966) Negative Negative NITRITE (test code = 0110635906) Negative Negative LEUK BUTCH (test code = 7242669253) Negative Negative RBC/HPF (test code = 2819098734) <1 See_Comment [Automated messa ge] The system which generated this result transmitted reference range: 0 - 3 HPF. The reference range was not used to interpret this result as normal/abnormal. WBC/HPF (test code = 5779461823) See_Comment [Automated messa ge] The system which generated this result transmitted reference range: 0 - 5 HPF. The reference range was not used to interpret this result as normal/abnormal. BACTERIA (test code = 4970662978) Negative Negative Lab Interpretation (test code = 84993-7) [facility] Test Item Value Reference Range Interpretation Comme nts APPEARANCE (test code = 2691758298) Clear Clear COLOR (test code = 3728444307) Straw Yellow A PH (test code = 9863029636) 4.8-8.0 SP GRAVITY (test code = 8720147132) 1.003-1.030 GLU U QUAL (test code = 0126989940) Normal Normal BLOOD (test code = 7225741550) Negative Negative KETONES (test code = 1034993775) Negative Negative PROTEIN (test code = 2887-8) Negative Negative UROBILIN (test code = 0813746840) Normal Normal BILIRUBIN (test code = 8548404648) Negative Negative NITRITE (test code = 7245929860) Negative Negative LEUK BUTCH (test code = 3019238686) Negative Negative RBC/HPF (test code = 3747213905) <1 See_Comment [Automated messa ge] The system which generated this result transmitted reference range: 0 - 3 HPF. The reference range was not used to interpret this result as normal/abnormal. WBC/HPF (test code = 0485672198) See_Comment [Automated messa ge] The system which generated this result transmitted reference range: 0 - 5 HPF. The reference range was not used to interpret this result as normal/abnormal. BACTERIA (test code = 9449812422) Negative Negative Lab Interpretation (test code = 15137-7) [facility] Test Item Value Reference Range Interpretation Comme nts APPEARANCE (test code = 6049526688) Clear Clear COLOR (test code = 8068078671) Straw Yellow A PH (test code = 8733656896) 4.8-8.0 SP GRAVITY (test code = 4622532812) 1.003-1.030 GLU U QUAL (test code = 5279053348) Normal Normal BLOOD (test code = 3664476106) Negative Negative KETONES (test code = 5212456065) Negative Negative PROTEIN (test code = 2887-8) Negative Negative UROBILIN (test code = 4501708524) Normal Normal BILIRUBIN (test code = 3569666297) Negative Negative NITRITE (test code = 1481013067) Negative Negative LEUK BUTCH (test code = 7748079132) Negative Negative RBC/HPF (test code = 2652424534) <1 See_Comment [Automated [employer]] The system which generated this result transmitted reference range: 0 - 3 HPF. The reference range was not used to interpret this result as normal/abnormal. WBC/HPF (test code = 3561470283) See_Comment [[employer]ated [employer]] The system which generated this result transmitted reference range: 0 - 5 HPF. The reference range was not used to interpret this result as normal/abnormal. BACTERIA (test code = 9481934523) Negative Negative Lab Interpretation (test code = 46100-9) [facility] Test Item Value Reference Range Interpretation Comme nts APPEARANCE (test code = 6052708689) Clear Clear COLOR (test code = 6239489186) Straw Yellow A PH (test code = 4946167752) 4.8-8.0 SP GRAVITY (test code = 2078112816) 1.003-1.030 GLU U QUAL (test code = 7917665678) Normal Normal BLOOD (test code = 2942571513) Negative Negative KETONES (test code = 4917333866) Negative Negative PROTEIN (test code = 2887-8) Negative Negative UROBILIN (test code = 4365964739) Normal Normal BILIRUBIN (test code = 5485695218) Negative Negative NITRITE (test code = 4589512769) Negative Negative LEUK BUTCH (test code = 2739284967) Negative Negative RBC/HPF (test code = 9109711421) <1 See_Comment [Automated messa ge] The system which generated this result transmitted reference range: 0 - 3 HPF. The reference range was not used to interpret this result as normal/abnormal. WBC/HPF (test code = 6108452892) See_Comment [[employer]ated [employer]] The system which generated this result transmitted reference range: 0 - 5 HPF. The reference range was not used to interpret this result as normal/abnormal. BACTERIA (test code = 5454163800) Negative Negative Lab Interpretation (test code = 08045-8) [facility] Test Item Value Reference Range Interpretation Comme nts APPEARANCE (test code = 7278818211) Clear Clear COLOR (test code = 9315000933) Straw Yellow A PH (test code = 1168132534) 4.8-8.0 SP GRAVITY (test code = 0709439067) 1.003-1.030 GLU U QUAL (test code = 3304158949) Normal Normal BLOOD (test code = 8817641978) Negative Negative KETONES (test code = 5205035514) Negative Negative PROTEIN (test code = 2887-8) Negative Negative UROBILIN (test code = 6907690743) Normal Normal BILIRUBIN (test code = 1309934413) Negative Negative NITRITE (test code = 5495882206) Negative Negative LEUK BUTCH (test code = 5465177317) Negative Negative RBC/HPF (test code = 8735401937) <1 See_Comment [[employer]ated [employer]] The system which generated this result transmitted reference range: 0 - 3 HPF. The reference range was not used to interpret this result as normal/abnormal. WBC/HPF (test code = 4308824033) See_Comment [Automated messa ge] The system which generated this result transmitted reference range: 0 - 5 HPF. The reference range was not used to interpret this result as normal/abnormal. BACTERIA (test code = 0882408805) Negative Negative Lab Interpretation (test code = 01938-7) [facility]* Test Item Value Reference Range Interpretation Comme nts APPEARANCE (test code = 7673506869) Clear Clear COLOR (test code = 6929761269) Straw Yellow A PH (test code = 3794928210) 4.8-8.0 SP GRAVITY (test code = 0387314174) 1.003-1.030 GLU U QUAL (test code = 1043214579) Normal Normal BLOOD (test code = 4301639643) Negative Negative KETONES (test code = 8840345471) Negative Negative PROTEIN (test code = 2887-8) Negative Negative UROBILIN (test code = 0143207176) Normal Normal BILIRUBIN (test code = 2160140235) Negative Negative NITRITE (test code = 7593526633) Negative Negative LEUK BUTCH (test code = 2516630937) Negative Negative RBC/HPF (test code = 4582990887) <1 See_Comment [[employer]] The system which generated this result transmitted reference range: 0 - 3 HPF. The reference range was not used to interpret this result as normal/abnormal. WBC/HPF (test code = 4542720243) See_Comment [[employer]] The system which generated this result transmitted reference range: 0 - 5 HPF. The reference range was not used to interpret this result as normal/abnormal. BACTERIA (test code = 2976091038) Negative Negative Lab Interpretation (test code = 38441-5) [facility]* Test Item Value Reference Range Interpretation Comme nts APPEARANCE (test code = 5155175356) Clear Clear COLOR (test code = 6790599208) Straw Yellow A PH (test code = 1174912950) 4.8-8.0 SP GRAVITY (test code = 4967331110) 1.003-1.030 GLU U QUAL (test code = 6423530282) Normal Normal BLOOD (test code = 5513231473) Negative Negative KETONES (test code = 8603483070) Negative Negative PROTEIN (test code = 2887-8) Negative Negative UROBILIN (test code = 5747506779) Normal Normal BILIRUBIN (test code = 4681063868) Negative Negative NITRITE (test code = 7437629141) Negative Negative LEUK BUTCH (test code = 0010086551) Negative Negative RBC/HPF (test code = 2760424881) <1 See_Comment [[employer]] The system which generated this result transmitted reference range: 0 - 3 HPF. The reference range was not used to interpret this result as normal/abnormal. WBC/HPF (test code = 4201485107) See_Comment [[employer]] The system which generated this result transmitted reference range: 0 - 5 HPF. The reference range was not used to interpret this result as normal/abnormal. BACTERIA (test code = 4912104046) Negative Negative Lab Interpretation (test code = 42190-6) [facility]* Test Item Value Reference Range Interpretation Comme nts APPEARANCE (test code = 5736095950) Clear Clear COLOR (test code = 7469032298) Straw Yellow A PH (test code = 9390362498) 4.8-8.0 SP GRAVITY (test code = 6283700763) 1.003-1.030 GLU U QUAL (test code = 0531095026) Normal Normal BLOOD (test code = 0594231691) Negative Negative KETONES (test code = 5745858367) Negative Negative PROTEIN (test code = 2887-8) Negative Negative UROBILIN (test code = 6576835524) Normal Normal BILIRUBIN (test code = 3991368526) Negative Negative NITRITE (test code = 0310585898) Negative Negative LEUK BUTCH (test code = 5682043334) Negative Negative RBC/HPF (test code = 7498908071) <1 See_Comment [[employer]] The system which generated this result transmitted reference range: 0 - 3 HPF. The reference range was not used to interpret this result as normal/abnormal. WBC/HPF (test code = 8924464638) See_Comment [[employer]] The system which generated this result transmitted reference range: 0 - 5 HPF. The reference range was not used to interpret this result as normal/abnormal. BACTERIA (test code = 8289132198) Negative Negative Lab Interpretation (test code = 44928-6) [facility]* Test Item Value Reference Range Interpretation Comme nts APPEARANCE (test code = 8507787352) Clear Clear COLOR (test code = 4500072360) Straw Yellow A PH (test code = 1624342086) 4.8-8.0 SP GRAVITY (test code = 7334577313) 1.003-1.030 GLU U QUAL (test code = 1471662437) Normal Normal BLOOD (test code = 0505885356) Negative Negative KETONES (test code = 3421832501) Negative Negative PROTEIN (test code = 2887-8) Negative Negative UROBILIN (test code = 8792851980) Normal Normal BILIRUBIN (test code = 1894229325) Negative Negative NITRITE (test code = 5526582845) Negative Negative LEUK BUTCH (test code = 4887845283) Negative Negative RBC/HPF (test code = 3614391650) <1 See_Comment [[employer]] The system which generated this result transmitted reference range: 0 - 3 HPF. The reference range was not used to interpret this result as normal/abnormal. WBC/HPF (test code = 1985077020) See_Comment [[employer]] The system which generated this result transmitted reference range: 0 - 5 HPF. The reference range was not used to interpret this result as normal/abnormal. BACTERIA (test code = 8537906065) Negative Negative Lab Interpretation (test code = 74488-2) [facility]* Test Item Value Reference Range Interpretation Comme nts APPEARANCE (test code = 1717010043) Clear Clear COLOR (test code = 0491404260) Straw Yellow A PH (test code = 6333456878) 4.8-8.0 SP GRAVITY (test code = 8035340396) 1.003-1.030 GLU U QUAL (test code = 5792318837) Normal Normal BLOOD (test code = 9594694382) Negative Negative KETONES (test code = 2939877891) Negative Negative PROTEIN (test code = 2887-8) Negative Negative UROBILIN (test code = 7226244700) Normal Normal BILIRUBIN (test code = 5576017102) Negative Negative NITRITE (test code = 2127063768) Negative Negative LEUK BUTCH (test code = 7596793693) Negative Negative RBC/HPF (test code = 4955252493) <1 See_Comment [[employer]] The system which generated this result transmitted reference range: 0 - 3 HPF. The reference range was not used to interpret this result as normal/abnormal. WBC/HPF (test code = 6453483721) See_Comment [[employer]] The system which generated this result transmitted reference range: 0 - 5 HPF. The reference range was not used to interpret this result as normal/abnormal. BACTERIA (test code = 6967102088) Negative Negative Lab Interpretation (test code = 37890-7) [facility] Test Item Value Reference Range Interpretation Comme nts APPEARANCE (test code = 1562700784) Clear Clear COLOR (test code = 9125803172) Straw Yellow A PH (test code = 6810021314) 4.8-8.0 SP GRAVITY (test code = 7584752293) 1.003-1.030 GLU U QUAL (test code = 8726502553) Normal Normal BLOOD (test code = 4785750466) Negative Negative KETONES (test code = 7438838429) Negative Negative PROTEIN (test code = 2887-8) Negative Negative UROBILIN (test code = 2607952970) Normal Normal BILIRUBIN (test code = 9258915670) Negative Negative NITRITE (test code = 7380948889) Negative Negative LEUK BUTCH (test code = 8313972067) Negative Negative RBC/HPF (test code = 2331613654) <1 See_Comment [[employer]] The system which generated this result transmitted reference range: 0 - 3 HPF. The reference range was not used to interpret this result as normal/abnormal. WBC/HPF (test code = 6196797807) See_Comment [[employer]] The system which generated this result transmitted reference range: 0 - 5 HPF. The reference range was not used to interpret this result as normal/abnormal. BACTERIA (test code = 9803366669) Negative Negative Lab Interpretation (test code = 84520-3) [facility] Test Item Value Reference Range Interpretation Comme nts APPEARANCE (test code = 7883580128) Clear Clear COLOR (test code = 1736768573) Straw Yellow A PH (test code = 1319129333) 4.8-8.0 SP GRAVITY (test code = 7625902753) 1.003-1.030 GLU U QUAL (test code = 3935431556) Normal Normal BLOOD (test code = 9833387315) Negative Negative KETONES (test code = 8697811446) Negative Negative PROTEIN (test code = 2887-8) Negative Negative UROBILIN (test code = 3713729016) Normal Normal BILIRUBIN (test code = 7947486990) Negative Negative NITRITE (test code = 7318330002) Negative Negative LEUK BUTCH (test code = 5928251670) Negative Negative RBC/HPF (test code = 6181882128) <1 See_Comment [Automated mess[employer] ge] The system which generated this result transmitted reference range: 0 - 3 HPF. The reference range was not used to interpret this result as normal/abnormal. WBC/HPF (test code = 1034186049) See_Comment [Automated mess[employer] ge] The system which generated this result transmitted reference range: 0 - 5 HPF. The reference range was not used to interpret this result as normal/abnormal. BACTERIA (test code = 3784174202) Negative Negative Lab Interpretation (test code = 80422-5) [facility]* Test Item Value Reference Range Interpretation Comme nts APPEARANCE (test code = 1287460916) Clear Clear COLOR (test code = 7613262669) Straw Yellow A PH (test code = 2858893010) 4.8-8.0 SP GRAVITY (test code = 8983383531) 1.003-1.030 GLU U QUAL (test code = 0481065879) Normal Normal BLOOD (test code = 7129982894) Negative Negative KETONES (test code = 6399160854) Negative Negative PROTEIN (test code = 2887-8) Negative Negative UROBILIN (test code = 0681596838) Normal Normal BILIRUBIN (test code = 6969261743) Negative Negative NITRITE (test code = 5983610989) Negative Negative LEUK BUTCH (test code = 6833407572) Negative Negative RBC/HPF (test code = 4619684794) <1 See_Comment [Automated messa ge] The system which generated this result transmitted reference range: 0 - 3 HPF. The reference range was not used to interpret this result as normal/abnormal. WBC/HPF (test code = 1388071348) See_Comment [Automated mess[employer] ge] The system which generated this result transmitted reference range: 0 - 5 HPF. The reference range was not used to interpret this result as normal/abnormal. BACTERIA (test code = 4688321278) Negative Negative Lab Interpretation (test code = 94035-1) [facility] Test Item Value Reference Range Interpretation Comme nts APPEARANCE (test code = 6850604017) Clear Clear COLOR (test code = 8198478604) Straw Yellow A PH (test code = 8341449696) 4.8-8.0 SP GRAVITY (test code = 0750534377) 1.003-1.030 GLU U QUAL (test code = 1183699338) Normal Normal BLOOD (test code = 0657901661) Negative Negative KETONES (test code = 5250094433) Negative Negative PROTEIN (test code = 2887-8) Negative Negative UROBILIN (test code = 4284172763) Normal Normal BILIRUBIN (test code = 4170443439) Negative Negative NITRITE (test code = 9570737918) Negative Negative LEUK BUTCH (test code = 7597607330) Negative Negative RBC/HPF (test code = 9787563830) <1 See_Comment [[employer]] The system which generated this result transmitted reference range: 0 - 3 HPF. The reference range was not used to interpret this result as normal/abnormal. WBC/HPF (test code = 7341215538) See_Comment [[employer]] The system which generated this result transmitted reference range: 0 - 5 HPF. The reference range was not used to interpret this result as normal/abnormal. BACTERIA (test code = 0041350127) Negative Negative Lab Interpretation (test code = 63278-2) [facility] Test Item Value Reference Range Interpretation Comme nts APPEARANCE (test code = 5133349107) Clear Clear COLOR (test code = 4798476197) Straw Yellow A PH (test code = 2327742106) 4.8-8.0 SP GRAVITY (test code = 8623025767) 1.003-1.030 GLU U QUAL (test code = 7177193346) Normal Normal BLOOD (test code = 3530491640) Negative Negative KETONES (test code = 1028093826) Negative Negative PROTEIN (test code = 2887-8) Negative Negative UROBILIN (test code = 3968641938) Normal Normal BILIRUBIN (test code = 5117939058) Negative Negative NITRITE (test code = 2968081666) Negative Negative LEUK BUTCH (test code = 8428740626) Negative Negative RBC/HPF (test code = 3391129453) <1 See_Comment [Automated messa ge] The system which generated this result transmitted reference range: 0 - 3 HPF. The reference range was not used to interpret this result as normal/abnormal. WBC/HPF (test code = 0274697991) See_Comment [Automated messa ge] The system which generated this result transmitted reference range: 0 - 5 HPF. The reference range was not used to interpret this result as normal/abnormal. BACTERIA (test code = 0639269851) Negative Negative Lab Interpretation (test code = 00592-5) [facility] Test Item Value Reference Range Interpretation Comme nts APPEARANCE (test code = 9454824689) Clear Clear COLOR (test code = 8612652333) Straw Yellow A PH (test code = 9724272890) 4.8-8.0 SP GRAVITY (test code = 0903047078) 1.003-1.030 GLU U QUAL (test code = 4511016532) Normal Normal BLOOD (test code = 4511930252) Negative Negative KETONES (test code = 1160437316) Negative Negative PROTEIN (test code = 2887-8) Negative Negative UROBILIN (test code = 3386282474) Normal Normal BILIRUBIN (test code = 5597968104) Negative Negative NITRITE (test code = 5758211104) Negative Negative LEUK BUTCH (test code = 8836332463) Negative Negative RBC/HPF (test code = 7951782639) <1 See_Comment [[employer]] The system which generated this result transmitted reference range: 0 - 3 HPF. The reference range was not used to interpret this result as normal/abnormal. WBC/HPF (test code = 4778157313) See_Comment [Automated messa ge] The system which generated this result transmitted reference range: 0 - 5 HPF. The reference range was not used to interpret this result as normal/abnormal. BACTERIA (test code = 4066514126) Negative Negative Lab Interpretation (test code = 91638-7) [facility]* Test Item Value Reference Range Interpretation Comme nts APPEARANCE (test code = 1726255003) Clear Clear COLOR (test code = 4549507834) Straw Yellow A PH (test code = 0449543920) 4.8-8.0 SP GRAVITY (test code = 9825228662) 1.003-1.030 GLU U QUAL (test code = 1543916206) Normal Normal BLOOD (test code = 4940720147) Negative Negative KETONES (test code = 6516526008) Negative Negative PROTEIN (test code = 2887-8) Negative Negative UROBILIN (test code = 2535959342) Normal Normal BILIRUBIN (test code = 5639356662) Negative Negative NITRITE (test code = 3363598467) Negative Negative LEUK BUTCH (test code = 3012190980) Negative Negative RBC/HPF (test code = 8710983429) <1 See_Comment [[employer]] The system which generated this result transmitted reference range: 0 - 3 HPF. The reference range was not used to interpret this result as normal/abnormal. WBC/HPF (test code = 4309424194) See_Comment [[employer]] The system which generated this result transmitted reference range: 0 - 5 HPF. The reference range was not used to interpret this result as normal/abnormal. BACTERIA (test code = 8381257030) Negative Negative Lab Interpretation (test code = 69032-8) [facility]:13:[facility]* Test Item Value Reference Range Interpretation Comme nts APPEARANCE (test code = 5724576739) Clear Clear COLOR (test code = 0598031925) Straw Yellow A PH (test code = 6930940411) 4.8-8.0 SP GRAVITY (test code = 2707747489) 1.003-1.030 GLU U QUAL (test code = 0270319336) Normal Normal BLOOD (test code = 5208603275) Negative Negative KETONES (test code = 7354013821) Negative Negative PROTEIN (test code = 2887-8) Negative Negative UROBILIN (test code = 7273971626) Normal Normal BILIRUBIN (test code = 3103635746) Negative Negative NITRITE (test code = 1507790998) Negative Negative LEUK BUTCH (test code = 6786350793) Negative Negative RBC/HPF (test code = 4995321003) <1 See_Comment [[employer]] The system which generated this result transmitted reference range: 0 - 3 HPF. The reference range was not used to interpret this result as normal/abnormal. WBC/HPF (test code = 4536398009) See_Comment [[employer]] The system which generated this result transmitted reference range: 0 - 5 HPF. The reference range was not used to interpret this result as normal/abnormal. BACTERIA (test code = 2356918553) Negative Negative Lab Interpretation (test code = 84409-5) [facility]* Test Item Value Reference Range Interpretation Comme nts APPEARANCE (test code = 2939591275) Clear Clear COLOR (test code = 1677810162) Straw Yellow A PH (test code = 5709748706) 4.8-8.0 SP GRAVITY (test code = 7420438290) 1.003-1.030 GLU U QUAL (test code = 7127475952) Normal Normal BLOOD (test code = 9219418166) Negative Negative KETONES (test code = 0694019400) Negative Negative PROTEIN (test code = 2887-8) Negative Negative UROBILIN (test code = 2826101546) Normal Normal BILIRUBIN (test code = 7180081993) Negative Negative NITRITE (test code = 7637180796) Negative Negative LEUK BUTCH (test code = 3745030061) Negative Negative RBC/HPF (test code = 2056776034) <1 See_Comment [[employer]] The system which generated this result transmitted reference range: 0 - 3 HPF. The reference range was not used to interpret this result as normal/abnormal. WBC/HPF (test code = 4369683500) See_Comment [[employer]] The system which generated this result transmitted reference range: 0 - 5 HPF. The reference range was not used to interpret this result as normal/abnormal. BACTERIA (test code = 4825497595) Negative Negative Lab Interpretation (test code = 46562-6) [facility]* Test Item Value Reference Range Interpretation Comme nts APPEARANCE (test code = 4908242061) Clear Clear COLOR (test code = 1283980046) Straw Yellow A PH (test code = 8815921970) 4.8-8.0 SP GRAVITY (test code = 7738586960) 1.003-1.030 GLU U QUAL (test code = 8833030448) Normal Normal BLOOD (test code = 3007094532) Negative Negative KETONES (test code = 2055200400) Negative Negative PROTEIN (test code = 2887-8) Negative Negative UROBILIN (test code = 9417306558) Normal Normal BILIRUBIN (test code = 9863818639) Negative Negative NITRITE (test code = 3319096149) Negative Negative LEUK BUTCH (test code = 4154449203) Negative Negative RBC/HPF (test code = 9077083524) <1 See_Comment [Automated messa ge] The system which generated this result transmitted reference range: 0 - 3 HPF. The reference range was not used to interpret this result as normal/abnormal. WBC/HPF (test code = 3016357068) See_Comment [Automated messa ge] The system which generated this result transmitted reference range: 0 - 5 HPF. The reference range was not used to interpret this result as normal/abnormal. BACTERIA (test code = 6275815340) Negative Negative Lab Interpretation (test code = 53633-3) [facility]* Test Item Value Reference Range Interpretation Comme nts APPEARANCE (test code = 2642182075) Clear Clear COLOR (test code = 1540041638) Straw Yellow A PH (test code = 4639241627) 4.8-8.0 SP GRAVITY (test code = 3731418994) 1.003-1.030 GLU U QUAL (test code = 6930130142) Normal Normal BLOOD (test code = 3798577619) Negative Negative KETONES (test code = 6095074061) Negative Negative PROTEIN (test code = 2887-8) Negative Negative UROBILIN (test code = 7751716375) Normal Normal BILIRUBIN (test code = 8573602217) Negative Negative NITRITE (test code = 9598924212) Negative Negative LEUK BUTCH (test code = 1134049852) Negative Negative RBC/HPF (test code = 4380774337) <1 See_Comment [Automated messa ge] The system which generated this result transmitted reference range: 0 - 3 HPF. The reference range was not used to interpret this result as normal/abnormal. WBC/HPF (test code = 7129865312) See_Comment [Automated messa ge] The system which generated this result transmitted reference range: 0 - 5 HPF. The reference range was not used to interpret this result as normal/abnormal. BACTERIA (test code = 7270984025) Negative Negative Lab Interpretation (test code = 68447-5) [facility] Test Item Value Reference Range Interpretation Comme nts APPEARANCE (test code = 0308787999) Clear Clear COLOR (test code = 0675964416) Straw Yellow A PH (test code = 6223223039) 4.8-8.0 SP GRAVITY (test code = 5004612444) 1.003-1.030 GLU U QUAL (test code = 3291166785) Normal Normal BLOOD (test code = 0557238026) Negative Negative KETONES (test code = 8482275948) Negative Negative PROTEIN (test code = 2887-8) Negative Negative UROBILIN (test code = 9178234796) Normal Normal BILIRUBIN (test code = 2903698997) Negative Negative NITRITE (test code = 2761089991) Negative Negative LEUK BUTCH (test code = 0172449601) Negative Negative RBC/HPF (test code = 4150145133) <1 See_Comment [Automated [employer]] The system which generated this result transmitted reference range: 0 - 3 HPF. The reference range was not used to interpret this result as normal/abnormal. WBC/HPF (test code = 1427847618) See_Comment [[employer]] The system which generated this result transmitted reference range: 0 - 5 HPF. The reference range was not used to interpret this result as normal/abnormal. BACTERIA (test code = 2474801774) Negative Negative Lab Interpretation (test code = 44786-7) [facility] Test Item Value Reference Range Interpretation Comme nts APPEARANCE (test code = 7320114638) Clear Clear COLOR (test code = 8693619741) Straw Yellow A PH (test code = 5761114169) 4.8-8.0 SP GRAVITY (test code = 7764019428) 1.003-1.030 GLU U QUAL (test code = 3961289361) Normal Normal BLOOD (test code = 5434284713) Negative Negative KETONES (test code = 5035175356) Negative Negative PROTEIN (test code = 2887-8) Negative Negative UROBILIN (test code = 5768795425) Normal Normal BILIRUBIN (test code = 3638207826) Negative Negative NITRITE (test code = 4337501602) Negative Negative LEUK BUTCH (test code = 6774639704) Negative Negative RBC/HPF (test code = 9330607009) <1 See_Comment [Automated messa ge] The system which generated this result transmitted reference range: 0 - 3 HPF. The reference range was not used to interpret this result as normal/abnormal. WBC/HPF (test code = 8280442950) See_Comment [Automated messa ge] The system which generated this result transmitted reference range: 0 - 5 HPF. The reference range was not used to interpret this result as normal/abnormal. BACTERIA (test code = 9693449317) Negative Negative Lab Interpretation (test code = 53301-0) [facility]* Test Item Value Reference Range Interpretation Comme nts APPEARANCE (test code = 8925323873) Clear Clear COLOR (test code = 3224558833) Straw Yellow A PH (test code = 5580540791) 4.8-8.0 SP GRAVITY (test code = 2769814973) 1.003-1.030 GLU U QUAL (test code = 3718588574) Normal Normal BLOOD (test code = 1871806429) Negative Negative KETONES (test code = 9290879497) Negative Negative PROTEIN (test code = 2887-8) Negative Negative UROBILIN (test code = 4923432728) Normal Normal BILIRUBIN (test code = 7996180854) Negative Negative NITRITE (test code = 2814097814) Negative Negative LEUK BUTCH (test code = 6419934408) Negative Negative RBC/HPF (test code = 8015517606) <1 See_Comment [Automated messa ge] The system which generated this result transmitted reference range: 0 - 3 HPF. The reference range was not used to interpret this result as normal/abnormal. WBC/HPF (test code = 0991456797) See_Comment [Automated messa ge] The system which generated this result transmitted reference range: 0 - 5 HPF. The reference range was not used to interpret this result as normal/abnormal. BACTERIA (test code = 9618985621) Negative Negative Lab Interpretation (test code = 30551-5) [facility] Test Item Value Reference Range Interpretation Comme nts APPEARANCE (test code = 6869776250) Clear Clear COLOR (test code = 2937532548) Straw Yellow A PH (test code = 4997209918) 4.8-8.0 SP GRAVITY (test code = 1526269307) 1.003-1.030 GLU U QUAL (test code = 2810719064) Normal Normal BLOOD (test code = 4241603754) Negative Negative KETONES (test code = 2304285999) Negative Negative PROTEIN (test code = 2887-8) Negative Negative UROBILIN (test code = 2186895565) Normal Normal BILIRUBIN (test code = 4460525860) Negative Negative NITRITE (test code = 0552715084) Negative Negative LEUK BUTCH (test code = 7642943443) Negative Negative RBC/HPF (test code = 1167826601) <1 See_Comment [Automated [employer]] The system which generated this result transmitted reference range: 0 - 3 HPF. The reference range was not used to interpret this result as normal/abnormal. WBC/HPF (test code = 5779672752) See_Comment [[employer]ated [employer]] The system which generated this result transmitted reference range: 0 - 5 HPF. The reference range was not used to interpret this result as normal/abnormal. BACTERIA (test code = 4595108307) Negative Negative Lab Interpretation (test code = 79248-5) [facility] Test Item Value Reference Range Interpretation Comme nts APPEARANCE (test code = 6289429193) Clear Clear COLOR (test code = 0643489994) Straw Yellow A PH (test code = 3416636737) 4.8-8.0 SP GRAVITY (test code = 0479691679) 1.003-1.030 GLU U QUAL (test code = 5754708031) Normal Normal BLOOD (test code = 9592606596) Negative Negative KETONES (test code = 6655073144) Negative Negative PROTEIN (test code = 2887-8) Negative Negative UROBILIN (test code = 1054990511) Normal Normal BILIRUBIN (test code = 3915503353) Negative Negative NITRITE (test code = 5417930054) Negative Negative LEUK BUTCH (test code = 3399190510) Negative Negative RBC/HPF (test code = 2035601110) <1 See_Comment [[employer]ated [employer]] The system which generated this result transmitted reference range: 0 - 3 HPF. The reference range was not used to interpret this result as normal/abnormal. WBC/HPF (test code = 7264214178) See_Comment [[employer]ated [employer]] The system which generated this result transmitted reference range: 0 - 5 HPF. The reference range was not used to interpret this result as normal/abnormal. BACTERIA (test code = 9848225271) Negative Negative Lab Interpretation (test code = 28146-5) [facility]* Test Item Value Reference Range Interpretation Comme nts APPEARANCE (test code = 9694434295) Clear Clear COLOR (test code = 5825390092) Straw Yellow A PH (test code = 4829965883) 4.8-8.0 SP GRAVITY (test code = 6022146048) 1.003-1.030 GLU U QUAL (test code = 5877320761) Normal Normal BLOOD (test code = 2057440663) Negative Negative KETONES (test code = 1580049655) Negative Negative PROTEIN (test code = 2887-8) Negative Negative UROBILIN (test code = 0577274708) Normal Normal BILIRUBIN (test code = 6972325879) Negative Negative NITRITE (test code = 4725746057) Negative Negative LEUK BUTCH (test code = 9598241742) Negative Negative RBC/HPF (test code = 7161768477) <1 See_Comment [[employer]ated [employer]] The system which generated this result transmitted reference range: 0 - 3 HPF. The reference range was not used to interpret this result as normal/abnormal. WBC/HPF (test code = 3887744215) See_Comment [[employer]ated [employer]] The system which generated this result transmitted reference range: 0 - 5 HPF. The reference range was not used to interpret this result as normal/abnormal. BACTERIA (test code = 1365528001) Negative Negative Lab Interpretation (test code = 54964-2) [facility]13:[facility]* Test Item Value Reference Range Interpretation Comme nts APPEARANCE (test code = 0747998189) Clear Clear COLOR (test code = 1391666522) Straw Yellow A PH (test code = 0187021325) 4.8-8.0 SP GRAVITY (test code = 7425520377) 1.003-1.030 GLU U QUAL (test code = 5731751461) Normal Normal BLOOD (test code = 3143494243) Negative Negative KETONES (test code = 9860343732) Negative Negative PROTEIN (test code = 2887-8) Negative Negative UROBILIN (test code = 3757292499) Normal Normal BILIRUBIN (test code = 2026266423) Negative Negative NITRITE (test code = 5964887292) Negative Negative LEUK BUTCH (test code = 4153699502) Negative Negative RBC/HPF (test code = 0042906662) <1 See_Comment [[employer]ated [employer]] The system which generated this result transmitted reference range: 0 - 3 HPF. The reference range was not used to interpret this result as normal/abnormal. WBC/HPF (test code = 2300700936) See_Comment [[employer]ated [employer]] The system which generated this result transmitted reference range: 0 - 5 HPF. The reference range was not used to interpret this result as normal/abnormal. BACTERIA (test code = 8466891542) Negative Negative Lab Interpretation (test code = 58791-4) [facility]* Test Item Value Reference Range Interpretation Comme nts APPEARANCE (test code = 5737745855) Clear Clear COLOR (test code = 4849183905) Straw Yellow A PH (test code = 7458471516) 4.8-8.0 SP GRAVITY (test code = 1904678080) 1.003-1.030 GLU U QUAL (test code = 1728109115) Normal Normal BLOOD (test code = 7117084788) Negative Negative KETONES (test code = 3948954177) Negative Negative PROTEIN (test code = 2887-8) Negative Negative UROBILIN (test code = 4941040367) Normal Normal BILIRUBIN (test code = 7051855111) Negative Negative NITRITE (test code = 2662929091) Negative Negative LEUK BUTCH (test code = 3178877650) Negative Negative RBC/HPF (test code = 3202070003) <1 See_Comment [Automated messa ge] The system which generated this result transmitted reference range: 0 - 3 HPF. The reference range was not used to interpret this result as normal/abnormal. WBC/HPF (test code = 7554066940) See_Comment [[employer]] The system which generated this result transmitted reference range: 0 - 5 HPF. The reference range was not used to interpret this result as normal/abnormal. BACTERIA (test code = 1133689180) Negative Negative Lab Interpretation (test code = 66992-5) [facility]* Test Item Value Reference Range Interpretation Comme nts APPEARANCE (test code = 8751915794) Clear Clear COLOR (test code = 1436685473) Straw Yellow A PH (test code = 7716097890) 4.8-8.0 SP GRAVITY (test code = 2082651374) 1.003-1.030 GLU U QUAL (test code = 8904967330) Normal Normal BLOOD (test code = 0783858426) Negative Negative KETONES (test code = 5351770388) Negative Negative PROTEIN (test code = 2887-8) Negative Negative UROBILIN (test code = 1423316072) Normal Normal BILIRUBIN (test code = 5557920022) Negative Negative NITRITE (test code = 7843221836) Negative Negative LEUK BUTCH (test code = 3797070099) Negative Negative RBC/HPF (test code = 0559920936) <1 See_Comment [[employer]] The system which generated this result transmitted reference range: 0 - 3 HPF. The reference range was not used to interpret this result as normal/abnormal. WBC/HPF (test code = 4149158291) See_Comment [[employer]] The system which generated this result transmitted reference range: 0 - 5 HPF. The reference range was not used to interpret this result as normal/abnormal. BACTERIA (test code = 1186801153) Negative Negative Lab Interpretation (test code = 11443-2) [facility]* Test Item Value Reference Range Interpretation Comme nts APPEARANCE (test code = 5230770242) Clear Clear COLOR (test code = 0220087883) Straw Yellow A PH (test code = 0285002972) 4.8-8.0 SP GRAVITY (test code = 0242700230) 1.003-1.030 GLU U QUAL (test code = 9236189296) Normal Normal BLOOD (test code = 5911843397) Negative Negative KETONES (test code = 8683301727) Negative Negative PROTEIN (test code = 2887-8) Negative Negative UROBILIN (test code = 9116272699) Normal Normal BILIRUBIN (test code = 4230798338) Negative Negative NITRITE (test code = 8800593804) Negative Negative LEUK BUTCH (test code = 2460786469) Negative Negative RBC/HPF (test code = 6956777281) <1 See_Comment [[employer]] The system which generated this result transmitted reference range: 0 - 3 HPF. The reference range was not used to interpret this result as normal/abnormal. WBC/HPF (test code = 7143506887) See_Comment [[employer]] The system which generated this result transmitted reference range: 0 - 5 HPF. The reference range was not used to interpret this result as normal/abnormal. BACTERIA (test code = 7669939346) Negative Negative Lab Interpretation (test code = 71356-2) [facility]* Test Item Value Reference Range Interpretation Comme nts APPEARANCE (test code = 0993693823) Clear Clear COLOR (test code = 3026209887) Straw Yellow A PH (test code = 0158027945) 4.8-8.0 SP GRAVITY (test code = 7256309665) 1.003-1.030 GLU U QUAL (test code = 5478719007) Normal Normal BLOOD (test code = 0023326964) Negative Negative KETONES (test code = 3188171991) Negative Negative PROTEIN (test code = 2887-8) Negative Negative UROBILIN (test code = 2012478937) Normal Normal BILIRUBIN (test code = 1920789141) Negative Negative NITRITE (test code = 1754007357) Negative Negative LEUK BUTCH (test code = 0617329564) Negative Negative RBC/HPF (test code = 2996505998) <1 See_Comment [[employer]ated [employer]] The system which generated this result transmitted reference range: 0 - 3 HPF. The reference range was not used to interpret this result as normal/abnormal. WBC/HPF (test code = 0078358506) See_Comment [[employer]] The system which generated this result transmitted reference range: 0 - 5 HPF. The reference range was not used to interpret this result as normal/abnormal. BACTERIA (test code = 1499170092) Negative Negative Lab Interpretation (test code = 13198-5) [facility] Test Item Value Reference Range Interpretation Comme nts APPEARANCE (test code = 6926043649) Clear Clear COLOR (test code = 1779568313) Straw Yellow A PH (test code = 3016523478) 4.8-8.0 SP GRAVITY (test code = 8541181539) 1.003-1.030 GLU U QUAL (test code = 8863332943) Normal Normal BLOOD (test code = 8433863647) Negative Negative KETONES (test code = 0728885228) Negative Negative PROTEIN (test code = 2887-8) Negative Negative UROBILIN (test code = 4297590524) Normal Normal BILIRUBIN (test code = 5908670347) Negative Negative NITRITE (test code = 5407747415) Negative Negative LEUK BUTCH (test code = 1131610842) Negative Negative RBC/HPF (test code = 2117829807) <1 See_Comment [[employer]] The system which generated this result transmitted reference range: 0 - 3 HPF. The reference range was not used to interpret this result as normal/abnormal. WBC/HPF (test code = 7138684040) See_Comment [[employer]] The system which generated this result transmitted reference range: 0 - 5 HPF. The reference range was not used to interpret this result as normal/abnormal. BACTERIA (test code = 9677745826) Negative Negative Lab Interpretation (test code = 09799-5) [facility] Test Item Value Reference Range Interpretation Comme nts APPEARANCE (test code = 4867564811) Clear Clear COLOR (test code = 7716621605) Straw Yellow A PH (test code = 1326193702) 4.8-8.0 SP GRAVITY (test code = 0918198194) 1.003-1.030 GLU U QUAL (test code = 0418208980) Normal Normal BLOOD (test code = 2329129741) Negative Negative KETONES (test code = 4719919268) Negative Negative PROTEIN (test code = 2887-8) Negative Negative UROBILIN (test code = 2710642758) Normal Normal BILIRUBIN (test code = 6471006026) Negative Negative NITRITE (test code = 9241186121) Negative Negative LEUK BUTCH (test code = 0107581653) Negative Negative RBC/HPF (test code = 1876011266) <1 See_Comment [[employer]ated [employer]] The system which generated this result transmitted reference range: 0 - 3 HPF. The reference range was not used to interpret this result as normal/abnormal. WBC/HPF (test code = 3413287976) See_Comment [[employer]] The system which generated this result transmitted reference range: 0 - 5 HPF. The reference range was not used to interpret this result as normal/abnormal. BACTERIA (test code = 0027816067) Negative Negative Lab Interpretation (test code = 00581-6) [facility]* Test Item Value Reference Range Interpretation Comme nts APPEARANCE (test code = 0500219748) Clear Clear COLOR (test code = 1259316010) Straw Yellow A PH (test code = 1488453456) 4.8-8.0 SP GRAVITY (test code = 3847205592) 1.003-1.030 GLU U QUAL (test code = 8691647598) Normal Normal BLOOD (test code = 4173208662) Negative Negative KETONES (test code = 4470958498) Negative Negative PROTEIN (test code = 2887-8) Negative Negative UROBILIN (test code = 0830957856) Normal Normal BILIRUBIN (test code = 6984387060) Negative Negative NITRITE (test code = 6305412063) Negative Negative LEUK BUTCH (test code = 1464499140) Negative Negative RBC/HPF (test code = 3356943784) <1 See_Comment [Automated messa ge] The system which generated this result transmitted reference range: 0 - 3 HPF. The reference range was not used to interpret this result as normal/abnormal. WBC/HPF (test code = 5152597668) See_Comment [Automated mess[employer] ge] The system which generated this result transmitted reference range: 0 - 5 HPF. The reference range was not used to interpret this result as normal/abnormal. BACTERIA (test code = 7385777055) Negative Negative Lab Interpretation (test code = 26016-4) Abnormal [facility] WITH [id number] 01:59:00* Test Item Value Reference Range Interpretation Comme nts WBC (test code = 6690-2) See_Comment [Automated messa ge] The system which generated this result transmitted reference range: 4.20 - 10.70 10*3/?L. The reference range was not used to interpret this result as normal/abnormal. RBC (test code = 789-8) See_Comment [Automated mess[employer] ge] The system which generated this result transmitted reference range: 4.26 - 5.52 10*6/?L. The reference range was not used to interpret this result as normal/abnormal. HGB (test code = 718-7) 15.1 g/dL 12.2-16.4 HCT (test code = 4544-3) 46.5 % 38.4-49.3 MCV (test code = 787-2) 89.6 fL 81.7-95.6 MCH (test code = 785-6) 29.1 pg 26.1-32.7 MCHC (test code = 786-4) 32.5 g/dL 31.2-35 RDW-SD (test code = 54407-8) 40.9 fL 38.5-51.6 RDW-CV (test code = 788-0) 12.4 % 12.1-15.4 PLT (test code = 777-3) See_Comment [Automated messa ge] The system which generated this result transmitted reference range: 150 - 328 10*3/?L. The reference range was not used to interpret this result as normal/abnormal. MPV (test code = 27340-1) 12.0 fL 9.8-13 NRBC/100 WBC (test code = 9945480076) See_Comment [Automated [employer]] The system which generated this result transmitted reference range: 0.0 - 10.0 /100 WBCs. The reference range was not used to interpret this result as normal/abnormal. NRBC x10^3 (test code = 9645473447) <0.01 See_Comment [Automated messa ge] The system which generated this result transmitted reference range: 10*3/?L. The reference range was not used to interpret this result as normal/abnormal. GRAN MAT (NEUT) % (test code = 770-8) 71.9 % IMM GRAN % (test code = 9593312798) 0.50 % LYMPH % (test code = 736-9) 20.5 % MONO % (test code = 5905-5) 5.3 % EOS % (test code = 713-8) 1.2 % BASO % (test code = 706-2) 0.6 % GRAN MAT x10^3(ANC) (test code = 7388612626) 7.53 10*3/uL 1.99-6.95 H IMM GRAN x10^3 (test code = 4838330758) 0.05 10*3/uL 0-0.06 LYMPH x10^3 (test code = 731-0) 2.15 10*3/uL 1.09-3.23 MONO x10^3 (test code = 742-7) 0.56 10*3/uL 0.36-1.02 EOS x10^3 (test code = 711-2) 0.13 10*3/uL 0.06-0.53 BASO x10^3 (test code = 704-7) 0.06 10*3/uL 0.01-0.09 Lab Interpretation (test code = 21029-2) Abnormal [facility] WITH [id number] 01:59:00* Test Item Value Reference Range Interpretation Comme nts WBC (test code = 6690-2) See_Comment [[employer]] The system which generated this result transmitted reference range: 4.20 - 10.70 10*3/?L. The reference range was not used to interpret this result as normal/abnormal. RBC (test code = 789-8) See_Comment [[employer]] The system which generated this result transmitted reference range: 4.26 - 5.52 10*6/?L. The reference range was not used to interpret this result as normal/abnormal. HGB (test code = 718-7) 15.1 g/dL 12.2-16.4 HCT (test code = 4544-3) 46.5 % 38.4-49.3 MCV (test code = 787-2) 89.6 fL 81.7-95.6 MCH (test code = 785-6) 29.1 pg 26.1-32.7 MCHC (test code = 786-4) 32.5 g/dL 31.2-35 RDW-SD (test code = 88227-9) 40.9 fL 38.5-51.6 RDW-CV (test code = 788-0) 12.4 % 12.1-15.4 PLT (test code = 777-3) See_Comment [Automated messa ge] The system which generated this result transmitted reference range: 150 - 328 10*3/?L. The reference range was not used to interpret this result as normal/abnormal. MPV (test code = 33822-7) 12.0 fL 9.8-13 NRBC/100 WBC (test code = 6452023783) See_Comment [Automated [employer]] The system which generated this result transmitted reference range: 0.0 - 10.0 /100 WBCs. The reference range was not used to interpret this result as normal/abnormal. NRBC x10^3 (test code = 9593777935) <0.01 See_Comment [Automated messa ge] The system which generated this result transmitted reference range: 10*3/?L. The reference range was not used to interpret this result as normal/abnormal. GRAN MAT (NEUT) % (test code = 770-8) 71.9 % IMM GRAN % (test code = 3903446434) 0.50 % LYMPH % (test code = 736-9) 20.5 % MONO % (test code = 5905-5) 5.3 % EOS % (test code = 713-8) 1.2 % BASO % (test code = 706-2) 0.6 % GRAN MAT x10^3(ANC) (test code = 4483101697) 7.53 10*3/uL 1.99-6.95 H IMM GRAN x10^3 (test code = 8921300333) 0.05 10*3/uL 0-0.06 LYMPH x10^3 (test code = 731-0) 2.15 10*3/uL 1.09-3.23 MONO x10^3 (test code = 742-7) 0.56 10*3/uL 0.36-1.02 EOS x10^3 (test code = 711-2) 0.13 10*3/uL 0.06-0.53 BASO x10^3 (test code = 704-7) 0.06 10*3/uL 0.01-0.09 Lab Interpretation (test code = 09605-8) Abnormal [facility] WITH [id number] 01:59:00* Test Item Value Reference Range Interpretation Comme nts WBC (test code = 6690-2) See_Comment [Automated messa ge] The system which generated this result transmitted reference range: 4.20 - 10.70 10*3/?L. The reference range was not used to interpret this result as normal/abnormal. RBC (test code = 789-8) See_Comment [Automated messa ge] The system which generated this result transmitted reference range: 4.26 - 5.52 10*6/?L. The reference range was not used to interpret this result as normal/abnormal. HGB (test code = 718-7) 15.1 g/dL 12.2-16.4 HCT (test code = 4544-3) 46.5 % 38.4-49.3 MCV (test code = 787-2) 89.6 fL 81.7-95.6 MCH (test code = 785-6) 29.1 pg 26.1-32.7 MCHC (test code = 786-4) 32.5 g/dL 31.2-35 RDW-SD (test code = 85941-1) 40.9 fL 38.5-51.6 RDW-CV (test code = 788-0) 12.4 % 12.1-15.4 PLT (test code = 777-3) See_Comment [Automated messa ge] The system which generated this result transmitted reference range: 150 - 328 10*3/?L. The reference range was not used to interpret this result as normal/abnormal. MPV (test code = 88915-0) 12.0 fL 9.8-13 NRBC/100 WBC (test code = 5827447679) See_Comment [Automated 2nd Watch ssage] The system which generated this result transmitted reference range: 0.0 - 10.0 /100 WBCs. The reference range was not used to interpret this result as normal/abnormal. NRBC x10^3 (test code = 0418880375) <0.01 See_Comment [Automated messa ge] The system which generated this result transmitted reference range: 10*3/?L. The reference range was not used to interpret this result as normal/abnormal. GRAN MAT (NEUT) % (test code = 770-8) 71.9 % IMM GRAN % (test code = 6248701088) 0.50 % LYMPH % (test code = 736-9) 20.5 % MONO % (test code = 5905-5) 5.3 % EOS % (test code = 713-8) 1.2 % BASO % (test code = 706-2) 0.6 % GRAN MAT x10^3(ANC) (test code = 3510750484) 7.53 10*3/uL 1.99-6.95 H IMM GRAN x10^3 (test code = 6433028391) 0.05 10*3/uL 0-0.06 LYMPH x10^3 (test code = 731-0) 2.15 10*3/uL 1.09-3.23 MONO x10^3 (test code = 742-7) 0.56 10*3/uL 0.36-1.02 EOS x10^3 (test code = 711-2) 0.13 10*3/uL 0.06-0.53 BASO x10^3 (test code = 704-7) 0.06 10*3/uL 0.01-0.09 Lab Interpretation (test code = 84278-4) Abnormal [facility] WITH [id number] 01:59:00* Test Item Value Reference Range Interpretation Comme nts WBC (test code = 6690-2) See_Comment [Automated messa ge] The system which generated this result transmitted reference range: 4.20 - 10.70 10*3/?L. The reference range was not used to interpret this result as normal/abnormal. RBC (test code = 789-8) See_Comment [Automated messa ge] The system which generated this result transmitted reference range: 4.26 - 5.52 10*6/?L. The reference range was not used to interpret this result as normal/abnormal. HGB (test code = 718-7) 15.1 g/dL 12.2-16.4 HCT (test code = 4544-3) 46.5 % 38.4-49.3 MCV (test code = 787-2) 89.6 fL 81.7-95.6 MCH (test code = 785-6) 29.1 pg 26.1-32.7 MCHC (test code = 786-4) 32.5 g/dL 31.2-35 RDW-SD (test code = 69653-1) 40.9 fL 38.5-51.6 RDW-CV (test code = 788-0) 12.4 % 12.1-15.4 PLT (test code = 777-3) See_Comment [Automated messa ge] The system which generated this result transmitted reference range: 150 - 328 10*3/?L. The reference range was not used to interpret this result as normal/abnormal. MPV (test code = 65585-1) 12.0 fL 9.8-13 NRBC/100 WBC (test code = 3214407147) See_Comment [Automated 2nd Watch ssage] The system which generated this result transmitted reference range: 0.0 - 10.0 /100 WBCs. The reference range was not used to interpret this result as normal/abnormal. NRBC x10^3 (test code = 8624758806) <0.01 See_Comment [Automated messa ge] The system which generated this result transmitted reference range: 10*3/?L. The reference range was not used to interpret this result as normal/abnormal. GRAN MAT (NEUT) % (test code = 770-8) 71.9 % IMM GRAN % (test code = 1465437765) 0.50 % LYMPH % (test code = 736-9) 20.5 % MONO % (test code = 5905-5) 5.3 % EOS % (test code = 713-8) 1.2 % BASO % (test code = 706-2) 0.6 % GRAN MAT x10^3(ANC) (test code = 0089448622) 7.53 10*3/uL 1.99-6.95 H IMM GRAN x10^3 (test code = 0980436022) 0.05 10*3/uL 0-0.06 LYMPH x10^3 (test code = 731-0) 2.15 10*3/uL 1.09-3.23 MONO x10^3 (test code = 742-7) 0.56 10*3/uL 0.36-1.02 EOS x10^3 (test code = 711-2) 0.13 10*3/uL 0.06-0.53 BASO x10^3 (test code = 704-7) 0.06 10*3/uL 0.01-0.09 Lab Interpretation (test code = 98902-9) Abnormal [facility] WITH [id number] 01:59:00* Test Item Value Reference Range Interpretation Comme nts WBC (test code = 6690-2) See_Comment [Automated [employer]] The system which generated this result transmitted reference range: 4.20 - 10.70 10*3/?L. The reference range was not used to interpret this result as normal/abnormal. RBC (test code = 789-8) See_Comment [Automated [employer]] The system which generated this result transmitted reference range: 4.26 - 5.52 10*6/?L. The reference range was not used to interpret this result as normal/abnormal. HGB (test code = 718-7) 15.1 g/dL 12.2-16.4 HCT (test code = 4544-3) 46.5 % 38.4-49.3 MCV (test code = 787-2) 89.6 fL 81.7-95.6 MCH (test code = 785-6) 29.1 pg 26.1-32.7 MCHC (test code = 786-4) 32.5 g/dL 31.2-35 RDW-SD (test code = 68563-7) 40.9 fL 38.5-51.6 RDW-CV (test code = 788-0) 12.4 % 12.1-15.4 PLT (test code = 777-3) See_Comment [Automated [employer]] The system which generated this result transmitted reference range: 150 - 328 10*3/?L. The reference range was not used to interpret this result as normal/abnormal. MPV (test code = 26419-2) 12.0 fL 9.8-13 NRBC/100 WBC (test code = 8642881396) See_Comment [Automated 2nd Watch ssage] The system which generated this result transmitted reference range: 0.0 - 10.0 /100 WBCs. The reference range was not used to interpret this result as normal/abnormal. NRBC x10^3 (test code = 2617444365) <0.01 See_Comment [Automated messa ge] The system which generated this result transmitted reference range: 10*3/?L. The reference range was not used to interpret this result as normal/abnormal. GRAN MAT (NEUT) % (test code = 770-8) 71.9 % IMM GRAN % (test code = 2421694148) 0.50 % LYMPH % (test code = 736-9) 20.5 % MONO % (test code = 5905-5) 5.3 % EOS % (test code = 713-8) 1.2 % BASO % (test code = 706-2) 0.6 % GRAN MAT x10^3(ANC) (test code = 9292077836) 7.53 10*3/uL 1.99-6.95 H IMM GRAN x10^3 (test code = 2654783602) 0.05 10*3/uL 0-0.06 LYMPH x10^3 (test code = 731-0) 2.15 10*3/uL 1.09-3.23 MONO x10^3 (test code = 742-7) 0.56 10*3/uL 0.36-1.02 EOS x10^3 (test code = 711-2) 0.13 10*3/uL 0.06-0.53 BASO x10^3 (test code = 704-7) 0.06 10*3/uL 0.01-0.09 Lab Interpretation (test code = 97205-6) Abnormal [facility] WITH [id number] 01:59:00* Test Item Value Reference Range Interpretation Comme nts WBC (test code = 6690-2) See_Comment [Automated messa ge] The system which generated this result transmitted reference range: 4.20 - 10.70 10*3/?L. The reference range was not used to interpret this result as normal/abnormal. RBC (test code = 789-8) See_Comment [Automated [employer]] The system which generated this result transmitted reference range: 4.26 - 5.52 10*6/?L. The reference range was not used to interpret this result as normal/abnormal. HGB (test code = 718-7) 15.1 g/dL 12.2-16.4 HCT (test code = 4544-3) 46.5 % 38.4-49.3 MCV (test code = 787-2) 89.6 fL 81.7-95.6 MCH (test code = 785-6) 29.1 pg 26.1-32.7 MCHC (test code = 786-4) 32.5 g/dL 31.2-35 RDW-SD (test code = 99440-8) 40.9 fL 38.5-51.6 RDW-CV (test code = 788-0) 12.4 % 12.1-15.4 PLT (test code = 777-3) See_Comment [Automated [employer]] The system which generated this result transmitted reference range: 150 - 328 10*3/?L. The reference range was not used to interpret this result as normal/abnormal. MPV (test code = 95579-3) 12.0 fL 9.8-13 NRBC/100 WBC (test code = 2752423618) See_Comment [Automated 2nd Watch ssage] The system which generated this result transmitted reference range: 0.0 - 10.0 /100 WBCs. The reference range was not used to interpret this result as normal/abnormal. NRBC x10^3 (test code = 2863469272) <0.01 See_Comment [Automated [employer]] The system which generated this result transmitted reference range: 10*3/?L. The reference range was not used to interpret this result as normal/abnormal. GRAN MAT (NEUT) % (test code = 770-8) 71.9 % IMM GRAN % (test code = 7087617228) 0.50 % LYMPH % (test code = 736-9) 20.5 % MONO % (test code = 5905-5) 5.3 % EOS % (test code = 713-8) 1.2 % BASO % (test code = 706-2) 0.6 % GRAN MAT x10^3(ANC) (test code = 2818874113) 7.53 10*3/uL 1.99-6.95 H IMM GRAN x10^3 (test code = 8368643761) 0.05 10*3/uL 0-0.06 LYMPH x10^3 (test code = 731-0) 2.15 10*3/uL 1.09-3.23 MONO x10^3 (test code = 742-7) 0.56 10*3/uL 0.36-1.02 EOS x10^3 (test code = 711-2) 0.13 10*3/uL 0.06-0.53 BASO x10^3 (test code = 704-7) 0.06 10*3/uL 0.01-0.09 Lab Interpretation (test code = 82597-1) Abnormal [facility] WITH [id number] 01:59:00* Test Item Value Reference Range Interpretation Comme nts WBC (test code = 6690-2) See_Comment [Automated [employer]] The system which generated this result transmitted reference range: 4.20 - 10.70 10*3/?L. The reference range was not used to interpret this result as normal/abnormal. RBC (test code = 789-8) See_Comment [Automated [employer]] The system which generated this result transmitted reference range: 4.26 - 5.52 10*6/?L. The reference range was not used to interpret this result as normal/abnormal. HGB (test code = 718-7) 15.1 g/dL 12.2-16.4 HCT (test code = 4544-3) 46.5 % 38.4-49.3 MCV (test code = 787-2) 89.6 fL 81.7-95.6 MCH (test code = 785-6) 29.1 pg 26.1-32.7 MCHC (test code = 786-4) 32.5 g/dL 31.2-35 RDW-SD (test code = 97606-4) 40.9 fL 38.5-51.6 RDW-CV (test code = 788-0) 12.4 % 12.1-15.4 PLT (test code = 777-3) See_Comment [Automated messa ge] The system which generated this result transmitted reference range: 150 - 328 10*3/?L. The reference range was not used to interpret this result as normal/abnormal. MPV (test code = 37571-1) 12.0 fL 9.8-13 NRBC/100 WBC (test code = 9470359752) See_Comment [Automated 2nd Watch ssage] The system which generated this result transmitted reference range: 0.0 - 10.0 /100 WBCs. The reference range was not used to interpret this result as normal/abnormal. NRBC x10^3 (test code = 1701135146) <0.01 See_Comment [Automated messa ge] The system which generated this result transmitted reference range: 10*3/?L. The reference range was not used to interpret this result as normal/abnormal. GRAN MAT (NEUT) % (test code = 770-8) 71.9 % IMM GRAN % (test code = 8645395634) 0.50 % LYMPH % (test code = 736-9) 20.5 % MONO % (test code = 5905-5) 5.3 % EOS % (test code = 713-8) 1.2 % BASO % (test code = 706-2) 0.6 % GRAN MAT x10^3(ANC) (test code = 6877887513) 7.53 10*3/uL 1.99-6.95 H IMM GRAN x10^3 (test code = 3903338405) 0.05 10*3/uL 0-0.06 LYMPH x10^3 (test code = 731-0) 2.15 10*3/uL 1.09-3.23 MONO x10^3 (test code = 742-7) 0.56 10*3/uL 0.36-1.02 EOS x10^3 (test code = 711-2) 0.13 10*3/uL 0.06-0.53 BASO x10^3 (test code = 704-7) 0.06 10*3/uL 0.01-0.09 Lab Interpretation (test code = 30066-2) Abnormal [facility] WITH [id number] 01:59:00* Test Item Value Reference Range Interpretation Comme nts WBC (test code = 6690-2) See_Comment [Automated messa ge] The system which generated this result transmitted reference range: 4.20 - 10.70 10*3/?L. The reference range was not used to interpret this result as normal/abnormal. RBC (test code = 789-8) See_Comment [Automated messa ge] The system which generated this result transmitted reference range: 4.26 - 5.52 10*6/?L. The reference range was not used to interpret this result as normal/abnormal. HGB (test code = 718-7) 15.1 g/dL 12.2-16.4 HCT (test code = 4544-3) 46.5 % 38.4-49.3 MCV (test code = 787-2) 89.6 fL 81.7-95.6 MCH (test code = 785-6) 29.1 pg 26.1-32.7 MCHC (test code = 786-4) 32.5 g/dL 31.2-35 RDW-SD (test code = 78335-2) 40.9 fL 38.5-51.6 RDW-CV (test code = 788-0) 12.4 % 12.1-15.4 PLT (test code = 777-3) See_Comment [Automated messa ge] The system which generated this result transmitted reference range: 150 - 328 10*3/?L. The reference range was not used to interpret this result as normal/abnormal. MPV (test code = 33041-5) 12.0 fL 9.8-13 NRBC/100 WBC (test code = 8192646783) See_Comment [Automated 2nd Watch ssage] The system which generated this result transmitted reference range: 0.0 - 10.0 /100 WBCs. The reference range was not used to interpret this result as normal/abnormal. NRBC x10^3 (test code = 3465166671) <0.01 See_Comment [Automated messa ge] The system which generated this result transmitted reference range: 10*3/?L. The reference range was not used to interpret this result as normal/abnormal. GRAN MAT (NEUT) % (test code = 770-8) 71.9 % IMM GRAN % (test code = 9655590272) 0.50 % LYMPH % (test code = 736-9) 20.5 % MONO % (test code = 5905-5) 5.3 % EOS % (test code = 713-8) 1.2 % BASO % (test code = 706-2) 0.6 % GRAN MAT x10^3(ANC) (test code = 0773602335) 7.53 10*3/uL 1.99-6.95 H IMM GRAN x10^3 (test code = 4768252569) 0.05 10*3/uL 0-0.06 LYMPH x10^3 (test code = 731-0) 2.15 10*3/uL 1.09-3.23 MONO x10^3 (test code = 742-7) 0.56 10*3/uL 0.36-1.02 EOS x10^3 (test code = 711-2) 0.13 10*3/uL 0.06-0.53 BASO x10^3 (test code = 704-7) 0.06 10*3/uL 0.01-0.09 Lab Interpretation (test code = 24783-0) Abnormal [facility] WITH [id number] 01:59:00* Test Item Value Reference Range Interpretation Comme nts WBC (test code = 6690-2) See_Comment [Automated [employer]] The system which generated this result transmitted reference range: 4.20 - 10.70 10*3/?L. The reference range was not used to interpret this result as normal/abnormal. RBC (test code = 789-8) See_Comment [Automated [employer]] The system which generated this result transmitted reference range: 4.26 - 5.52 10*6/?L. The reference range was not used to interpret this result as normal/abnormal. HGB (test code = 718-7) 15.1 g/dL 12.2-16.4 HCT (test code = 4544-3) 46.5 % 38.4-49.3 MCV (test code = 787-2) 89.6 fL 81.7-95.6 MCH (test code = 785-6) 29.1 pg 26.1-32.7 MCHC (test code = 786-4) 32.5 g/dL 31.2-35 RDW-SD (test code = 21397-4) 40.9 fL 38.5-51.6 RDW-CV (test code = 788-0) 12.4 % 12.1-15.4 PLT (test code = 777-3) See_Comment [Automated messa ge] The system which generated this result transmitted reference range: 150 - 328 10*3/?L. The reference range was not used to interpret this result as normal/abnormal. MPV (test code = 92010-4) 12.0 fL 9.8-13 NRBC/100 WBC (test code = 7132006656) See_Comment [Automated 2nd Watch ssage] The system which generated this result transmitted reference range: 0.0 - 10.0 /100 WBCs. The reference range was not used to interpret this result as normal/abnormal. NRBC x10^3 (test code = 4954467266) <0.01 See_Comment [Automated messa ge] The system which generated this result transmitted reference range: 10*3/?L. The reference range was not used to interpret this result as normal/abnormal. GRAN MAT (NEUT) % (test code = 770-8) 71.9 % IMM GRAN % (test code = 7097431366) 0.50 % LYMPH % (test code = 736-9) 20.5 % MONO % (test code = 5905-5) 5.3 % EOS % (test code = 713-8) 1.2 % BASO % (test code = 706-2) 0.6 % GRAN MAT x10^3(ANC) (test code = 9099852683) 7.53 10*3/uL 1.99-6.95 H IMM GRAN x10^3 (test code = 0290540303) 0.05 10*3/uL 0-0.06 LYMPH x10^3 (test code = 731-0) 2.15 10*3/uL 1.09-3.23 MONO x10^3 (test code = 742-7) 0.56 10*3/uL 0.36-1.02 EOS x10^3 (test code = 711-2) 0.13 10*3/uL 0.06-0.53 BASO x10^3 (test code = 704-7) 0.06 10*3/uL 0.01-0.09 Lab Interpretation (test code = 82179-7) Abnormal [facility] WITH [id number] 01:59:00* Test Item Value Reference Range Interpretation Comme nts WBC (test code = 6690-2) See_Comment [Automated messa ge] The system which generated this result transmitted reference range: 4.20 - 10.70 10*3/?L. The reference range was not used to interpret this result as normal/abnormal. RBC (test code = 789-8) See_Comment [Automated messa ge] The system which generated this result transmitted reference range: 4.26 - 5.52 10*6/?L. The reference range was not used to interpret this result as normal/abnormal. HGB (test code = 718-7) 15.1 g/dL 12.2-16.4 HCT (test code = 4544-3) 46.5 % 38.4-49.3 MCV (test code = 787-2) 89.6 fL 81.7-95.6 MCH (test code = 785-6) 29.1 pg 26.1-32.7 MCHC (test code = 786-4) 32.5 g/dL 31.2-35 RDW-SD (test code = 09011-5) 40.9 fL 38.5-51.6 RDW-CV (test code = 788-0) 12.4 % 12.1-15.4 PLT (test code = 777-3) See_Comment [Automated messa ge] The system which generated this result transmitted reference range: 150 - 328 10*3/?L. The reference range was not used to interpret this result as normal/abnormal. MPV (test code = 41817-8) 12.0 fL 9.8-13 NRBC/100 WBC (test code = 1793441662) See_Comment [Automated 2nd Watch ssage] The system which generated this result transmitted reference range: 0.0 - 10.0 /100 WBCs. The reference range was not used to interpret this result as normal/abnormal. NRBC x10^3 (test code = 5258851549) <0.01 See_Comment [Automated messa ge] The system which generated this result transmitted reference range: 10*3/?L. The reference range was not used to interpret this result as normal/abnormal. GRAN MAT (NEUT) % (test code = 770-8) 71.9 % IMM GRAN % (test code = 4753166422) 0.50 % LYMPH % (test code = 736-9) 20.5 % MONO % (test code = 5905-5) 5.3 % EOS % (test code = 713-8) 1.2 % BASO % (test code = 706-2) 0.6 % GRAN MAT x10^3(ANC) (test code = 0830956577) 7.53 10*3/uL 1.99-6.95 H IMM GRAN x10^3 (test code = 5678730688) 0.05 10*3/uL 0-0.06 LYMPH x10^3 (test code = 731-0) 2.15 10*3/uL 1.09-3.23 MONO x10^3 (test code = 742-7) 0.56 10*3/uL 0.36-1.02 EOS x10^3 (test code = 711-2) 0.13 10*3/uL 0.06-0.53 BASO x10^3 (test code = 704-7) 0.06 10*3/uL 0.01-0.09 Lab Interpretation (test code = 79344-4) Abnormal [facility] WITH [id number] 01:59:00* Test Item Value Reference Range Interpretation Comme nts WBC (test code = 6690-2) See_Comment [Automated messa ge] The system which generated this result transmitted reference range: 4.20 - 10.70 10*3/?L. The reference range was not used to interpret this result as normal/abnormal. RBC (test code = 789-8) See_Comment [Automated messa ge] The system which generated this result transmitted reference range: 4.26 - 5.52 10*6/?L. The reference range was not used to interpret this result as normal/abnormal. HGB (test code = 718-7) 15.1 g/dL 12.2-16.4 HCT (test code = 4544-3) 46.5 % 38.4-49.3 MCV (test code = 787-2) 89.6 fL 81.7-95.6 MCH (test code = 785-6) 29.1 pg 26.1-32.7 MCHC (test code = 786-4) 32.5 g/dL 31.2-35 RDW-SD (test code = 40685-0) 40.9 fL 38.5-51.6 RDW-CV (test code = 788-0) 12.4 % 12.1-15.4 PLT (test code = 777-3) See_Comment [Automated messa ge] The system which generated this result transmitted reference range: 150 - 328 10*3/?L. The reference range was not used to interpret this result as normal/abnormal. MPV (test code = 04816-8) 12.0 fL 9.8-13 NRBC/100 WBC (test code = 8955297743) See_Comment [Automated 2nd Watch ssage] The system which generated this result transmitted reference range: 0.0 - 10.0 /100 WBCs. The reference range was not used to interpret this result as normal/abnormal. NRBC x10^3 (test code = 9465409128) <0.01 See_Comment [Automated messa ge] The system which generated this result transmitted reference range: 10*3/?L. The reference range was not used to interpret this result as normal/abnormal. GRAN MAT (NEUT) % (test code = 770-8) 71.9 % IMM GRAN % (test code = 7898000069) 0.50 % LYMPH % (test code = 736-9) 20.5 % MONO % (test code = 5905-5) 5.3 % EOS % (test code = 713-8) 1.2 % BASO % (test code = 706-2) 0.6 % GRAN MAT x10^3(ANC) (test code = 6435398118) 7.53 10*3/uL 1.99-6.95 H IMM GRAN x10^3 (test code = 3216903238) 0.05 10*3/uL 0-0.06 LYMPH x10^3 (test code = 731-0) 2.15 10*3/uL 1.09-3.23 MONO x10^3 (test code = 742-7) 0.56 10*3/uL 0.36-1.02 EOS x10^3 (test code = 711-2) 0.13 10*3/uL 0.06-0.53 BASO x10^3 (test code = 704-7) 0.06 10*3/uL 0.01-0.09 Lab Interpretation (test code = 49833-6) Abnormal [facility] WITH [id number] 01:59:00* Test Item Value Reference Range Interpretation Comme nts WBC (test code = 6690-2) See_Comment [Automated messa ge] The system which generated this result transmitted reference range: 4.20 - 10.70 10*3/?L. The reference range was not used to interpret this result as normal/abnormal. RBC (test code = 789-8) See_Comment [Automated messa ge] The system which generated this result transmitted reference range: 4.26 - 5.52 10*6/?L. The reference range was not used to interpret this result as normal/abnormal. HGB (test code = 718-7) 15.1 g/dL 12.2-16.4 HCT (test code = 4544-3) 46.5 % 38.4-49.3 MCV (test code = 787-2) 89.6 fL 81.7-95.6 MCH (test code = 785-6) 29.1 pg 26.1-32.7 MCHC (test code = 786-4) 32.5 g/dL 31.2-35 RDW-SD (test code = 52081-4) 40.9 fL 38.5-51.6 RDW-CV (test code = 788-0) 12.4 % 12.1-15.4 PLT (test code = 777-3) See_Comment [Automated messa ge] The system which generated this result transmitted reference range: 150 - 328 10*3/?L. The reference range was not used to interpret this result as normal/abnormal. MPV (test code = 96982-0) 12.0 fL 9.8-13 NRBC/100 WBC (test code = 8838747614) See_Comment [Automated 2nd Watch ssage] The system which generated this result transmitted reference range: 0.0 - 10.0 /100 WBCs. The reference range was not used to interpret this result as normal/abnormal. NRBC x10^3 (test code = 4146949317) <0.01 See_Comment [Automated messa ge] The system which generated this result transmitted reference range: 10*3/?L. The reference range was not used to interpret this result as normal/abnormal. GRAN MAT (NEUT) % (test code = 770-8) 71.9 % IMM GRAN % (test code = 9135619975) 0.50 % LYMPH % (test code = 736-9) 20.5 % MONO % (test code = 5905-5) 5.3 % EOS % (test code = 713-8) 1.2 % BASO % (test code = 706-2) 0.6 % GRAN MAT x10^3(ANC) (test code = 1190250706) 7.53 10*3/uL 1.99-6.95 H IMM GRAN x10^3 (test code = 3180243477) 0.05 10*3/uL 0-0.06 LYMPH x10^3 (test code = 731-0) 2.15 10*3/uL 1.09-3.23 MONO x10^3 (test code = 742-7) 0.56 10*3/uL 0.36-1.02 EOS x10^3 (test code = 711-2) 0.13 10*3/uL 0.06-0.53 BASO x10^3 (test code = 704-7) 0.06 10*3/uL 0.01-0.09 Lab Interpretation (test code = 85364-7) Abnormal [facility] WITH [id number] 01:59:00* Test Item Value Reference Range Interpretation Comme nts WBC (test code = 6690-2) See_Comment [Automated messa ge] The system which generated this result transmitted reference range: 4.20 - 10.70 10*3/?L. The reference range was not used to interpret this result as normal/abnormal. RBC (test code = 789-8) See_Comment [Automated messa ge] The system which generated this result transmitted reference range: 4.26 - 5.52 10*6/?L. The reference range was not used to interpret this result as normal/abnormal. HGB (test code = 718-7) 15.1 g/dL 12.2-16.4 HCT (test code = 4544-3) 46.5 % 38.4-49.3 MCV (test code = 787-2) 89.6 fL 81.7-95.6 MCH (test code = 785-6) 29.1 pg 26.1-32.7 MCHC (test code = 786-4) 32.5 g/dL 31.2-35 RDW-SD (test code = 45895-2) 40.9 fL 38.5-51.6 RDW-CV (test code = 788-0) 12.4 % 12.1-15.4 PLT (test code = 777-3) See_Comment [Automated messa ge] The system which generated this result transmitted reference range: 150 - 328 10*3/?L. The reference range was not used to interpret this result as normal/abnormal. MPV (test code = 26134-3) 12.0 fL 9.8-13 NRBC/100 WBC (test code = 5864745778) See_Comment [Automated 2nd Watch ssage] The system which generated this result transmitted reference range: 0.0 - 10.0 /100 WBCs. The reference range was not used to interpret this result as normal/abnormal. NRBC x10^3 (test code = 1824804391) <0.01 See_Comment [Automated [employer]] The system which generated this result transmitted reference range: 10*3/?L. The reference range was not used to interpret this result as normal/abnormal. GRAN MAT (NEUT) % (test code = 770-8) 71.9 % IMM GRAN % (test code = 4242841892) 0.50 % LYMPH % (test code = 736-9) 20.5 % MONO % (test code = 5905-5) 5.3 % EOS % (test code = 713-8) 1.2 % BASO % (test code = 706-2) 0.6 % GRAN MAT x10^3(ANC) (test code = 9886741871) 7.53 10*3/uL 1.99-6.95 H IMM GRAN x10^3 (test code = [id number]) 0.05 10*3/uL 0-0.06 LYMPH x10^3 (test code = 731-0) 2.15 10*3/uL 1.09-3.23 MONO x10^3 (test code = 742-7) 0.56 10*3/uL 0.36-1.02 EOS x10^3 (test code = 711-2) 0.13 10*3/uL 0.06-0.53 BASO x10^3 (test code = 704-7) 0.06 10*3/uL 0.01-0.09 Lab Interpretation (test code = 47872-8) Abnormal [facility] WITH [id number] 01:59:00* Test Item Value Reference Range Interpretation Comme nts WBC (test code = 6690-2) See_Comment [Automated [employer]] The system which generated this result transmitted reference range: 4.20 - 10.70 10*3/?L. The reference range was not used to interpret this result as normal/abnormal. RBC (test code = 789-8) See_Comment [Automated [employer]] The system which generated this result transmitted reference range: 4.26 - 5.52 10*6/?L. The reference range was not used to interpret this result as normal/abnormal. HGB (test code = 718-7) 15.1 g/dL 12.2-16.4 HCT (test code = 4544-3) 46.5 % 38.4-49.3 MCV (test code = 787-2) 89.6 fL 81.7-95.6 MCH (test code = 785-6) 29.1 pg 26.1-32.7 MCHC (test code = 786-4) 32.5 g/dL 31.2-35 RDW-SD (test code = 96821-4) 40.9 fL 38.5-51.6 RDW-CV (test code = 788-0) 12.4 % 12.1-15.4 PLT (test code = 777-3) See_Comment [Automated [employer]] The system which generated this result transmitted reference range: 150 - 328 10*3/?L. The reference range was not used to interpret this result as normal/abnormal. MPV (test code = 88131-4) 12.0 fL 9.8-13 NRBC/100 WBC (test code = 9481742535) See_Comment [Automated 2nd Watch ssage] The system which generated this result transmitted reference range: 0.0 - 10.0 /100 WBCs. The reference range was not used to interpret this result as normal/abnormal. NRBC x10^3 (test code = 6580843451) <0.01 See_Comment [Automated messa ge] The system which generated this result transmitted reference range: 10*3/?L. The reference range was not used to interpret this result as normal/abnormal. GRAN MAT (NEUT) % (test code = 770-8) 71.9 % IMM GRAN % (test code = 9516915864) 0.50 % LYMPH % (test code = 736-9) 20.5 % MONO % (test code = 5905-5) 5.3 % EOS % (test code = 713-8) 1.2 % BASO % (test code = 706-2) 0.6 % GRAN MAT x10^3(ANC) (test code = 5960690410) 7.53 10*3/uL 1.99-6.95 H IMM GRAN x10^3 (test code = 7751224222) 0.05 10*3/uL 0-0.06 LYMPH x10^3 (test code = 731-0) 2.15 10*3/uL 1.09-3.23 MONO x10^3 (test code = 742-7) 0.56 10*3/uL 0.36-1.02 EOS x10^3 (test code = 711-2) 0.13 10*3/uL 0.06-0.53 BASO x10^3 (test code = 704-7) 0.06 10*3/uL 0.01-0.09 Lab Interpretation (test code = 06668-5) Abnormal [facility] WITH [id number] 01:59:00* Test Item Value Reference Range Interpretation Comme nts WBC (test code = 6690-2) See_Comment [Automated messa ge] The system which generated this result transmitted reference range: 4.20 - 10.70 10*3/?L. The reference range was not used to interpret this result as normal/abnormal. RBC (test code = 789-8) See_Comment [Automated [employer]] The system which generated this result transmitted reference range: 4.26 - 5.52 10*6/?L. The reference range was not used to interpret this result as normal/abnormal. HGB (test code = 718-7) 15.1 g/dL 12.2-16.4 HCT (test code = 4544-3) 46.5 % 38.4-49.3 MCV (test code = 787-2) 89.6 fL 81.7-95.6 MCH (test code = 785-6) 29.1 pg 26.1-32.7 MCHC (test code = 786-4) 32.5 g/dL 31.2-35 RDW-SD (test code = 23099-1) 40.9 fL 38.5-51.6 RDW-CV (test code = 788-0) 12.4 % 12.1-15.4 PLT (test code = 777-3) See_Comment [Automated [employer]] The system which generated this result transmitted reference range: 150 - 328 10*3/?L. The reference range was not used to interpret this result as normal/abnormal. MPV (test code = 51168-9) 12.0 fL 9.8-13 NRBC/100 WBC (test code = 0522429513) See_Comment [Automated 2nd Watch ssage] The system which generated this result transmitted reference range: 0.0 - 10.0 /100 WBCs. The reference range was not used to interpret this result as normal/abnormal. NRBC x10^3 (test code = 4184504697) <0.01 See_Comment [Automated [employer]] The system which generated this result transmitted reference range: 10*3/?L. The reference range was not used to interpret this result as normal/abnormal. GRAN MAT (NEUT) % (test code = 770-8) 71.9 % IMM GRAN % (test code = 0423639193) 0.50 % LYMPH % (test code = 736-9) 20.5 % MONO % (test code = 5905-5) 5.3 % EOS % (test code = 713-8) 1.2 % BASO % (test code = 706-2) 0.6 % GRAN MAT x10^3(ANC) (test code = 5034185463) 7.53 10*3/uL 1.99-6.95 H IMM GRAN x10^3 (test code = 6410141555) 0.05 10*3/uL 0-0.06 LYMPH x10^3 (test code = 731-0) 2.15 10*3/uL 1.09-3.23 MONO x10^3 (test code = 742-7) 0.56 10*3/uL 0.36-1.02 EOS x10^3 (test code = 711-2) 0.13 10*3/uL 0.06-0.53 BASO x10^3 (test code = 704-7) 0.06 10*3/uL 0.01-0.09 Lab Interpretation (test code = 05672-8) Abnormal [facility] WITH [id number] 01:59:00* Test Item Value Reference Range Interpretation Comme nts WBC (test code = 6690-2) See_Comment [Automated [employer]] The system which generated this result transmitted reference range: 4.20 - 10.70 10*3/?L. The reference range was not used to interpret this result as normal/abnormal. RBC (test code = 789-8) See_Comment [Automated [employer]] The system which generated this result transmitted reference range: 4.26 - 5.52 10*6/?L. The reference range was not used to interpret this result as normal/abnormal. HGB (test code = 718-7) 15.1 g/dL 12.2-16.4 HCT (test code = 4544-3) 46.5 % 38.4-49.3 MCV (test code = 787-2) 89.6 fL 81.7-95.6 MCH (test code = 785-6) 29.1 pg 26.1-32.7 MCHC (test code = 786-4) 32.5 g/dL 31.2-35 RDW-SD (test code = 65698-9) 40.9 fL 38.5-51.6 RDW-CV (test code = 788-0) 12.4 % 12.1-15.4 PLT (test code = 777-3) See_Comment [Automated messa ge] The system which generated this result transmitted reference range: 150 - 328 10*3/?L. The reference range was not used to interpret this result as normal/abnormal. MPV (test code = 32710-7) 12.0 fL 9.8-13 NRBC/100 WBC (test code = 0555247589) See_Comment [Automated 2nd Watch ssage] The system which generated this result transmitted reference range: 0.0 - 10.0 /100 WBCs. The reference range was not used to interpret this result as normal/abnormal. NRBC x10^3 (test code = 5172401019) <0.01 See_Comment [Automated messa ge] The system which generated this result transmitted reference range: 10*3/?L. The reference range was not used to interpret this result as normal/abnormal. GRAN MAT (NEUT) % (test code = 770-8) 71.9 % IMM GRAN % (test code = 5025727502) 0.50 % LYMPH % (test code = 736-9) 20.5 % MONO % (test code = 5905-5) 5.3 % EOS % (test code = 713-8) 1.2 % BASO % (test code = 706-2) 0.6 % GRAN MAT x10^3(ANC) (test code = 9092550387) 7.53 10*3/uL 1.99-6.95 H IMM GRAN x10^3 (test code = 7876795227) 0.05 10*3/uL 0-0.06 LYMPH x10^3 (test code = 731-0) 2.15 10*3/uL 1.09-3.23 MONO x10^3 (test code = 742-7) 0.56 10*3/uL 0.36-1.02 EOS x10^3 (test code = 711-2) 0.13 10*3/uL 0.06-0.53 BASO x10^3 (test code = 704-7) 0.06 10*3/uL 0.01-0.09 Lab Interpretation (test code = 17565-8) Abnormal [facility] WITH [id number] 01:59:00* Test Item Value Reference Range Interpretation Comme nts WBC (test code = 6690-2) See_Comment [Automated messa ge] The system which generated this result transmitted reference range: 4.20 - 10.70 10*3/?L. The reference range was not used to interpret this result as normal/abnormal. RBC (test code = 789-8) See_Comment [Automated messa ge] The system which generated this result transmitted reference range: 4.26 - 5.52 10*6/?L. The reference range was not used to interpret this result as normal/abnormal. HGB (test code = 718-7) 15.1 g/dL 12.2-16.4 HCT (test code = 4544-3) 46.5 % 38.4-49.3 MCV (test code = 787-2) 89.6 fL 81.7-95.6 MCH (test code = 785-6) 29.1 pg 26.1-32.7 MCHC (test code = 786-4) 32.5 g/dL 31.2-35 RDW-SD (test code = 94650-7) 40.9 fL 38.5-51.6 RDW-CV (test code = 788-0) 12.4 % 12.1-15.4 PLT (test code = 777-3) See_Comment [Automated messa ge] The system which generated this result transmitted reference range: 150 - 328 10*3/?L. The reference range was not used to interpret this result as normal/abnormal. MPV (test code = 84554-7) 12.0 fL 9.8-13 NRBC/100 WBC (test code = 3301904621) See_Comment [Automated 2nd Watch ssage] The system which generated this result transmitted reference range: 0.0 - 10.0 /100 WBCs. The reference range was not used to interpret this result as normal/abnormal. NRBC x10^3 (test code = 5113995695) <0.01 See_Comment [Automated messa ge] The system which generated this result transmitted reference range: 10*3/?L. The reference range was not used to interpret this result as normal/abnormal. GRAN MAT (NEUT) % (test code = 770-8) 71.9 % IMM GRAN % (test code = 9513917223) 0.50 % LYMPH % (test code = 736-9) 20.5 % MONO % (test code = 5905-5) 5.3 % EOS % (test code = 713-8) 1.2 % BASO % (test code = 706-2) 0.6 % GRAN MAT x10^3(ANC) (test code = 1717384210) 7.53 10*3/uL 1.99-6.95 H IMM GRAN x10^3 (test code = 2165771072) 0.05 10*3/uL 0-0.06 LYMPH x10^3 (test code = 731-0) 2.15 10*3/uL 1.09-3.23 MONO x10^3 (test code = 742-7) 0.56 10*3/uL 0.36-1.02 EOS x10^3 (test code = 711-2) 0.13 10*3/uL 0.06-0.53 BASO x10^3 (test code = 704-7) 0.06 10*3/uL 0.01-0.09 Lab Interpretation (test code = 33229-8) Abnormal [facility] WITH [id number] 01:59:00* Test Item Value Reference Range Interpretation Comme nts WBC (test code = 6690-2) See_Comment [Automated [employer]] The system which generated this result transmitted reference range: 4.20 - 10.70 10*3/?L. The reference range was not used to interpret this result as normal/abnormal. RBC (test code = 789-8) See_Comment [Automated [employer]] The system which generated this result transmitted reference range: 4.26 - 5.52 10*6/?L. The reference range was not used to interpret this result as normal/abnormal. HGB (test code = 718-7) 15.1 g/dL 12.2-16.4 HCT (test code = 4544-3) 46.5 % 38.4-49.3 MCV (test code = 787-2) 89.6 fL 81.7-95.6 MCH (test code = 785-6) 29.1 pg 26.1-32.7 MCHC (test code = 786-4) 32.5 g/dL 31.2-35 RDW-SD (test code = 46801-8) 40.9 fL 38.5-51.6 RDW-CV (test code = 788-0) 12.4 % 12.1-15.4 PLT (test code = 777-3) See_Comment [Automated messa ge] The system which generated this result transmitted reference range: 150 - 328 10*3/?L. The reference range was not used to interpret this result as normal/abnormal. MPV (test code = 87855-6) 12.0 fL 9.8-13 NRBC/100 WBC (test code = 0649136409) See_Comment [Automated 2nd Watch ssage] The system which generated this result transmitted reference range: 0.0 - 10.0 /100 WBCs. The reference range was not used to interpret this result as normal/abnormal. NRBC x10^3 (test code = 2551362893) <0.01 See_Comment [Automated messa ge] The system which generated this result transmitted reference range: 10*3/?L. The reference range was not used to interpret this result as normal/abnormal. GRAN MAT (NEUT) % (test code = 770-8) 71.9 % IMM GRAN % (test code = 7477682377) 0.50 % LYMPH % (test code = 736-9) 20.5 % MONO % (test code = 5905-5) 5.3 % EOS % (test code = 713-8) 1.2 % BASO % (test code = 706-2) 0.6 % GRAN MAT x10^3(ANC) (test code = 1573555365) 7.53 10*3/uL 1.99-6.95 H IMM GRAN x10^3 (test code = 8718165915) 0.05 10*3/uL 0-0.06 LYMPH x10^3 (test code = 731-0) 2.15 10*3/uL 1.09-3.23 MONO x10^3 (test code = 742-7) 0.56 10*3/uL 0.36-1.02 EOS x10^3 (test code = 711-2) 0.13 10*3/uL 0.06-0.53 BASO x10^3 (test code = 704-7) 0.06 10*3/uL 0.01-0.09 Lab Interpretation (test code = 03226-6) Abnormal [facility] WITH [id number] 01:59:00* Test Item Value Reference Range Interpretation Comme nts WBC (test code = 6690-2) See_Comment [Automated messa ge] The system which generated this result transmitted reference range: 4.20 - 10.70 10*3/?L. The reference range was not used to interpret this result as normal/abnormal. RBC (test code = 789-8) See_Comment [Automated messa ge] The system which generated this result transmitted reference range: 4.26 - 5.52 10*6/?L. The reference range was not used to interpret this result as normal/abnormal. HGB (test code = 718-7) 15.1 g/dL 12.2-16.4 HCT (test code = 4544-3) 46.5 % 38.4-49.3 MCV (test code = 787-2) 89.6 fL 81.7-95.6 MCH (test code = 785-6) 29.1 pg 26.1-32.7 MCHC (test code = 786-4) 32.5 g/dL 31.2-35 RDW-SD (test code = 41410-8) 40.9 fL 38.5-51.6 RDW-CV (test code = 788-0) 12.4 % 12.1-15.4 PLT (test code = 777-3) See_Comment [Automated messa ge] The system which generated this result transmitted reference range: 150 - 328 10*3/?L. The reference range was not used to interpret this result as normal/abnormal. MPV (test code = 91170-6) 12.0 fL 9.8-13 NRBC/100 WBC (test code = 7263691435) See_Comment [Automated 2nd Watch ssage] The system which generated this result transmitted reference range: 0.0 - 10.0 /100 WBCs. The reference range was not used to interpret this result as normal/abnormal. NRBC x10^3 (test code = 4273178042) <0.01 See_Comment [Automated messa ge] The system which generated this result transmitted reference range: 10*3/?L. The reference range was not used to interpret this result as normal/abnormal. GRAN MAT (NEUT) % (test code = 770-8) 71.9 % IMM GRAN % (test code = 0183447751) 0.50 % LYMPH % (test code = 736-9) 20.5 % MONO % (test code = 5905-5) 5.3 % EOS % (test code = 713-8) 1.2 % BASO % (test code = 706-2) 0.6 % GRAN MAT x10^3(ANC) (test code = 1902348223) 7.53 10*3/uL 1.99-6.95 H IMM GRAN x10^3 (test code = 4332441624) 0.05 10*3/uL 0-0.06 LYMPH x10^3 (test code = 731-0) 2.15 10*3/uL 1.09-3.23 MONO x10^3 (test code = 742-7) 0.56 10*3/uL 0.36-1.02 EOS x10^3 (test code = 711-2) 0.13 10*3/uL 0.06-0.53 BASO x10^3 (test code = 704-7) 0.06 10*3/uL 0.01-0.09 Lab Interpretation (test code = 14264-2) Abnormal [facility] WITH [id number] 01:59:00* Test Item Value Reference Range Interpretation Comme nts WBC (test code = 6690-2) See_Comment [Automated [employer]] The system which generated this result transmitted reference range: 4.20 - 10.70 10*3/?L. The reference range was not used to interpret this result as normal/abnormal. RBC (test code = 789-8) See_Comment [Automated [employer]] The system which generated this result transmitted reference range: 4.26 - 5.52 10*6/?L. The reference range was not used to interpret this result as normal/abnormal. HGB (test code = 718-7) 15.1 g/dL 12.2-16.4 HCT (test code = 4544-3) 46.5 % 38.4-49.3 MCV (test code = 787-2) 89.6 fL 81.7-95.6 MCH (test code = 785-6) 29.1 pg 26.1-32.7 MCHC (test code = 786-4) 32.5 g/dL 31.2-35 RDW-SD (test code = 24705-2) 40.9 fL 38.5-51.6 RDW-CV (test code = 788-0) 12.4 % 12.1-15.4 PLT (test code = 777-3) See_Comment [Automated messa ge] The system which generated this result transmitted reference range: 150 - 328 10*3/?L. The reference range was not used to interpret this result as normal/abnormal. MPV (test code = 74048-7) 12.0 fL 9.8-13 NRBC/100 WBC (test code = 5529541686) See_Comment [Automated 2nd Watch ssage] The system which generated this result transmitted reference range: 0.0 - 10.0 /100 WBCs. The reference range was not used to interpret this result as normal/abnormal. NRBC x10^3 (test code = 5943344819) <0.01 See_Comment [Automated [employer]] The system which generated this result transmitted reference range: 10*3/?L. The reference range was not used to interpret this result as normal/abnormal. GRAN MAT (NEUT) % (test code = 770-8) 71.9 % IMM GRAN % (test code = 3583640371) 0.50 % LYMPH % (test code = 736-9) 20.5 % MONO % (test code = 5905-5) 5.3 % EOS % (test code = 713-8) 1.2 % BASO % (test code = 706-2) 0.6 % GRAN MAT x10^3(ANC) (test code = 3863878145) 7.53 10*3/uL 1.99-6.95 H IMM GRAN x10^3 (test code = 5676960883) 0.05 10*3/uL 0-0.06 LYMPH x10^3 (test code = 731-0) 2.15 10*3/uL 1.09-3.23 MONO x10^3 (test code = 742-7) 0.56 10*3/uL 0.36-1.02 EOS x10^3 (test code = 711-2) 0.13 10*3/uL 0.06-0.53 BASO x10^3 (test code = 704-7) 0.06 10*3/uL 0.01-0.09 Lab Interpretation (test code = 57199-3) Abnormal [facility] WITH [id number] 01:59:00* Test Item Value Reference Range Interpretation Comme nts WBC (test code = 6690-2) See_Comment [Automated messa ge] The system which generated this result transmitted reference range: 4.20 - 10.70 10*3/?L. The reference range was not used to interpret this result as normal/abnormal. RBC (test code = 789-8) See_Comment [Automated messa ge] The system which generated this result transmitted reference range: 4.26 - 5.52 10*6/?L. The reference range was not used to interpret this result as normal/abnormal. HGB (test code = 718-7) 15.1 g/dL 12.2-16.4 HCT (test code = 4544-3) 46.5 % 38.4-49.3 MCV (test code = 787-2) 89.6 fL 81.7-95.6 MCH (test code = 785-6) 29.1 pg 26.1-32.7 MCHC (test code = 786-4) 32.5 g/dL 31.2-35 RDW-SD (test code = 91609-1) 40.9 fL 38.5-51.6 RDW-CV (test code = 788-0) 12.4 % 12.1-15.4 PLT (test code = 777-3) See_Comment [Automated messa ge] The system which generated this result transmitted reference range: 150 - 328 10*3/?L. The reference range was not used to interpret this result as normal/abnormal. MPV (test code = 54149-7) 12.0 fL 9.8-13 NRBC/100 WBC (test code = 9866584399) See_Comment [Automated 2nd Watch ssage] The system which generated this result transmitted reference range: 0.0 - 10.0 /100 WBCs. The reference range was not used to interpret this result as normal/abnormal. NRBC x10^3 (test code = 9399356699) <0.01 See_Comment [Automated messa ge] The system which generated this result transmitted reference range: 10*3/?L. The reference range was not used to interpret this result as normal/abnormal. GRAN MAT (NEUT) % (test code = 770-8) 71.9 % IMM GRAN % (test code = 1292914630) 0.50 % LYMPH % (test code = 736-9) 20.5 % MONO % (test code = 5905-5) 5.3 % EOS % (test code = 713-8) 1.2 % BASO % (test code = 706-2) 0.6 % GRAN MAT x10^3(ANC) (test code = 3634410167) 7.53 10*3/uL 1.99-6.95 H IMM GRAN x10^3 (test code = 5333931170) 0.05 10*3/uL 0-0.06 LYMPH x10^3 (test code = 731-0) 2.15 10*3/uL 1.09-3.23 MONO x10^3 (test code = 742-7) 0.56 10*3/uL 0.36-1.02 EOS x10^3 (test code = 711-2) 0.13 10*3/uL 0.06-0.53 BASO x10^3 (test code = 704-7) 0.06 10*3/uL 0.01-0.09 Lab Interpretation (test code = 50785-7) Abnormal [facility] WITH [id number] 01:59:00* Test Item Value Reference Range Interpretation Comme nts WBC (test code = 6690-2) See_Comment [Automated messa ge] The system which generated this result transmitted reference range: 4.20 - 10.70 10*3/?L. The reference range was not used to interpret this result as normal/abnormal. RBC (test code = 789-8) See_Comment [Automated messa ge] The system which generated this result transmitted reference range: 4.26 - 5.52 10*6/?L. The reference range was not used to interpret this result as normal/abnormal. HGB (test code = 718-7) 15.1 g/dL 12.2-16.4 HCT (test code = 4544-3) 46.5 % 38.4-49.3 MCV (test code = 787-2) 89.6 fL 81.7-95.6 MCH (test code = 785-6) 29.1 pg 26.1-32.7 MCHC (test code = 786-4) 32.5 g/dL 31.2-35 RDW-SD (test code = 15430-2) 40.9 fL 38.5-51.6 RDW-CV (test code = 788-0) 12.4 % 12.1-15.4 PLT (test code = 777-3) See_Comment [Automated messa ge] The system which generated this result transmitted reference range: 150 - 328 10*3/?L. The reference range was not used to interpret this result as normal/abnormal. MPV (test code = 59754-0) 12.0 fL 9.8-13 NRBC/100 WBC (test code = 7247339586) See_Comment [Automated 2nd Watch ssage] The system which generated this result transmitted reference range: 0.0 - 10.0 /100 WBCs. The reference range was not used to interpret this result as normal/abnormal. NRBC x10^3 (test code = 3635221036) <0.01 See_Comment [Automated messa ge] The system which generated this result transmitted reference range: 10*3/?L. The reference range was not used to interpret this result as normal/abnormal. GRAN MAT (NEUT) % (test code = 770-8) 71.9 % IMM GRAN % (test code = 8852823201) 0.50 % LYMPH % (test code = 736-9) 20.5 % MONO % (test code = 5905-5) 5.3 % EOS % (test code = 713-8) 1.2 % BASO % (test code = 706-2) 0.6 % GRAN MAT x10^3(ANC) (test code = 1668846674) 7.53 10*3/uL 1.99-6.95 H IMM GRAN x10^3 (test code = 4589149183) 0.05 10*3/uL 0-0.06 LYMPH x10^3 (test code = 731-0) 2.15 10*3/uL 1.09-3.23 MONO x10^3 (test code = 742-7) 0.56 10*3/uL 0.36-1.02 EOS x10^3 (test code = 711-2) 0.13 10*3/uL 0.06-0.53 BASO x10^3 (test code = 704-7) 0.06 10*3/uL 0.01-0.09 Lab Interpretation (test code = 44927-6) Abnormal [facility] WITH [id number] 01:59:00* Test Item Value Reference Range Interpretation Comme nts WBC (test code = 6690-2) See_Comment [Automated [employer]] The system which generated this result transmitted reference range: 4.20 - 10.70 10*3/?L. The reference range was not used to interpret this result as normal/abnormal. RBC (test code = 789-8) See_Comment [Automated [employer]] The system which generated this result transmitted reference range: 4.26 - 5.52 10*6/?L. The reference range was not used to interpret this result as normal/abnormal. HGB (test code = 718-7) 15.1 g/dL 12.2-16.4 HCT (test code = 4544-3) 46.5 % 38.4-49.3 MCV (test code = 787-2) 89.6 fL 81.7-95.6 MCH (test code = 785-6) 29.1 pg 26.1-32.7 MCHC (test code = 786-4) 32.5 g/dL 31.2-35 RDW-SD (test code = 35640-4) 40.9 fL 38.5-51.6 RDW-CV (test code = 788-0) 12.4 % 12.1-15.4 PLT (test code = 777-3) See_Comment [[employer]ated [employer]] The system which generated this result transmitted reference range: 150 - 328 10*3/?L. The reference range was not used to interpret this result as normal/abnormal. MPV (test code = 37223-5) 12.0 fL 9.8-13 NRBC/100 WBC (test code = 6195022467) See_Comment [Automated 2nd Watch ssage] The system which generated this result transmitted reference range: 0.0 - 10.0 /100 WBCs. The reference range was not used to interpret this result as normal/abnormal. NRBC x10^3 (test code = 0686155362) <0.01 See_Comment [Automated messa ge] The system which generated this result transmitted reference range: 10*3/?L. The reference range was not used to interpret this result as normal/abnormal. GRAN MAT (NEUT) % (test code = 770-8) 71.9 % IMM GRAN % (test code = 5551291802) 0.50 % LYMPH % (test code = 736-9) 20.5 % MONO % (test code = 5905-5) 5.3 % EOS % (test code = 713-8) 1.2 % BASO % (test code = 706-2) 0.6 % GRAN MAT x10^3(ANC) (test code = 6142823280) 7.53 10*3/uL 1.99-6.95 H IMM GRAN x10^3 (test code = 6221067662) 0.05 10*3/uL 0-0.06 LYMPH x10^3 (test code = 731-0) 2.15 10*3/uL 1.09-3.23 MONO x10^3 (test code = 742-7) 0.56 10*3/uL 0.36-1.02 EOS x10^3 (test code = 711-2) 0.13 10*3/uL 0.06-0.53 BASO x10^3 (test code = 704-7) 0.06 10*3/uL 0.01-0.09 Lab Interpretation (test code = 04143-3) Abnormal [facility] WITH [id number] 01:59:00* Test Item Value Reference Range Interpretation Comme nts WBC (test code = 6690-2) See_Comment [Automated messa ge] The system which generated this result transmitted reference range: 4.20 - 10.70 10*3/?L. The reference range was not used to interpret this result as normal/abnormal. RBC (test code = 789-8) See_Comment [Automated [employer]] The system which generated this result transmitted reference range: 4.26 - 5.52 10*6/?L. The reference range was not used to interpret this result as normal/abnormal. HGB (test code = 718-7) 15.1 g/dL 12.2-16.4 HCT (test code = 4544-3) 46.5 % 38.4-49.3 MCV (test code = 787-2) 89.6 fL 81.7-95.6 MCH (test code = 785-6) 29.1 pg 26.1-32.7 MCHC (test code = 786-4) 32.5 g/dL 31.2-35 RDW-SD (test code = 97940-0) 40.9 fL 38.5-51.6 RDW-CV (test code = 788-0) 12.4 % 12.1-15.4 PLT (test code = 777-3) See_Comment [Automated [employer]] The system which generated this result transmitted reference range: 150 - 328 10*3/?L. The reference range was not used to interpret this result as normal/abnormal. MPV (test code = 44717-7) 12.0 fL 9.8-13 NRBC/100 WBC (test code = [id number]) See_Comment [Automated [employer]] The system which generated this result transmitted reference range: 0.0 - 10.0 /100 WBCs. The reference range was not used to interpret this result as normal/abnormal. NRBC x10^3 (test code = 6916414937) <0.01 See_Comment [Automated [employer]] The system which generated this result transmitted reference range: 10*3/?L. The reference range was not used to interpret this result as normal/abnormal. GRAN MAT (NEUT) % (test code = 770-8) 71.9 % IMM GRAN % (test code = 8342920004) 0.50 % LYMPH % (test code = 736-9) 20.5 % MONO % (test code = 5905-5) 5.3 % EOS % (test code = 713-8) 1.2 % BASO % (test code = 706-2) 0.6 % GRAN MAT x10^3(ANC) (test code = 3730017196) 7.53 10*3/uL 1.99-6.95 H IMM GRAN x10^3 (test code = 7560711804) 0.05 10*3/uL 0-0.06 LYMPH x10^3 (test code = 731-0) 2.15 10*3/uL 1.09-3.23 MONO x10^3 (test code = 742-7) 0.56 10*3/uL 0.36-1.02 EOS x10^3 (test code = 711-2) 0.13 10*3/uL 0.06-0.53 BASO x10^3 (test code = 704-7) 0.06 10*3/uL 0.01-0.09 Lab Interpretation (test code = 80830-7) Abnormal [facility] WITH [id number] 01:59:00* Test Item Value Reference Range Interpretation Comme nts WBC (test code = 6690-2) See_Comment [Automated [employer]] The system which generated this result transmitted reference range: 4.20 - 10.70 10*3/?L. The reference range was not used to interpret this result as normal/abnormal. RBC (test code = 789-8) See_Comment [Automated [employer]] The system which generated this result transmitted reference range: 4.26 - 5.52 10*6/?L. The reference range was not used to interpret this result as normal/abnormal. HGB (test code = 718-7) 15.1 g/dL 12.2-16.4 HCT (test code = 4544-3) 46.5 % 38.4-49.3 MCV (test code = 787-2) 89.6 fL 81.7-95.6 MCH (test code = 785-6) 29.1 pg 26.1-32.7 MCHC (test code = 786-4) 32.5 g/dL 31.2-35 RDW-SD (test code = 56836-0) 40.9 fL 38.5-51.6 RDW-CV (test code = 788-0) 12.4 % 12.1-15.4 PLT (test code = 777-3) See_Comment [Automated messa ge] The system which generated this result transmitted reference range: 150 - 328 10*3/?L. The reference range was not used to interpret this result as normal/abnormal. MPV (test code = 84849-3) 12.0 fL 9.8-13 NRBC/100 WBC (test code = 0576595278) See_Comment [Automated [employer] ssage] The system which generated this result transmitted reference range: 0.0 - 10.0 /100 WBCs. The reference range was not used to interpret this result as normal/abnormal. NRBC x10^3 (test code = 4335080501) <0.01 See_Comment [Automated messa ge] The system which generated this result transmitted reference range: 10*3/?L. The reference range was not used to interpret this result as normal/abnormal. GRAN MAT (NEUT) % (test code = 770-8) 71.9 % IMM GRAN % (test code = 7040563697) 0.50 % LYMPH % (test code = 736-9) 20.5 % MONO % (test code = 5905-5) 5.3 % EOS % (test code = 713-8) 1.2 % BASO % (test code = 706-2) 0.6 % GRAN MAT x10^3(ANC) (test code = 7486880346) 7.53 10*3/uL 1.99-6.95 H IMM GRAN x10^3 (test code = 0890509192) 0.05 10*3/uL 0-0.06 LYMPH x10^3 (test code = 731-0) 2.15 10*3/uL 1.09-3.23 MONO x10^3 (test code = 742-7) 0.56 10*3/uL 0.36-1.02 EOS x10^3 (test code = 711-2) 0.13 10*3/uL 0.06-0.53 BASO x10^3 (test code = 704-7) 0.06 10*3/uL 0.01-0.09 Lab Interpretation (test code = 29097-6) Abnormal [facility] WITH [id number] 01:59:00* Test Item Value Reference Range Interpretation Comme nts WBC (test code = 6690-2) See_Comment [Automated messa ge] The system which generated this result transmitted reference range: 4.20 - 10.70 10*3/?L. The reference range was not used to interpret this result as normal/abnormal. RBC (test code = 789-8) See_Comment [Automated messa ge] The system which generated this result transmitted reference range: 4.26 - 5.52 10*6/?L. The reference range was not used to interpret this result as normal/abnormal. HGB (test code = 718-7) 15.1 g/dL 12.2-16.4 HCT (test code = 4544-3) 46.5 % 38.4-49.3 MCV (test code = 787-2) 89.6 fL 81.7-95.6 MCH (test code = 785-6) 29.1 pg 26.1-32.7 MCHC (test code = 786-4) 32.5 g/dL 31.2-35 RDW-SD (test code = 58130-1) 40.9 fL 38.5-51.6 RDW-CV (test code = 788-0) 12.4 % 12.1-15.4 PLT (test code = 777-3) See_Comment [Automated messa ge] The system which generated this result transmitted reference range: 150 - 328 10*3/?L. The reference range was not used to interpret this result as normal/abnormal. MPV (test code = 25622-4) 12.0 fL 9.8-13 NRBC/100 WBC (test code = 0785695659) See_Comment [Automated 2[employer] ssage] The system which generated this result transmitted reference range: 0.0 - 10.0 /100 WBCs. The reference range was not used to interpret this result as normal/abnormal. NRBC x10^3 (test code = 0149625841) <0.01 See_Comment [Automated messa ge] The system which generated this result transmitted reference range: 10*3/?L. The reference range was not used to interpret this result as normal/abnormal. GRAN MAT (NEUT) % (test code = 770-8) 71.9 % IMM GRAN % (test code = 1195133721) 0.50 % LYMPH % (test code = 736-9) 20.5 % MONO % (test code = 5905-5) 5.3 % EOS % (test code = 713-8) 1.2 % BASO % (test code = 706-2) 0.6 % GRAN MAT x10^3(ANC) (test code = 3647629487) 7.53 10*3/uL 1.99-6.95 H IMM GRAN x10^3 (test code = 4676726902) 0.05 10*3/uL 0-0.06 LYMPH x10^3 (test code = 731-0) 2.15 10*3/uL 1.09-3.23 MONO x10^3 (test code = 742-7) 0.56 10*3/uL 0.36-1.02 EOS x10^3 (test code = 711-2) 0.13 10*3/uL 0.06-0.53 BASO x10^3 (test code = 704-7) 0.06 10*3/uL 0.01-0.09 Lab Interpretation (test code = 28358-4) Abnormal [facility] WITH [id number] 01:59:00* Test Item Value Reference Range Interpretation Comme nts WBC (test code = 6690-2) See_Comment [Automated [employer]] The system which generated this result transmitted reference range: 4.20 - 10.70 10*3/?L. The reference range was not used to interpret this result as normal/abnormal. RBC (test code = 789-8) See_Comment [Automated [employer]] The system which generated this result transmitted reference range: 4.26 - 5.52 10*6/?L. The reference range was not used to interpret this result as normal/abnormal. HGB (test code = 718-7) 15.1 g/dL 12.2-16.4 HCT (test code = 4544-3) 46.5 % 38.4-49.3 MCV (test code = 787-2) 89.6 fL 81.7-95.6 MCH (test code = 785-6) 29.1 pg 26.1-32.7 MCHC (test code = 786-4) 32.5 g/dL 31.2-35 RDW-SD (test code = 68883-5) 40.9 fL 38.5-51.6 RDW-CV (test code = 788-0) 12.4 % 12.1-15.4 PLT (test code = 777-3) See_Comment [Automated messa ge] The system which generated this result transmitted reference range: 150 - 328 10*3/?L. The reference range was not used to interpret this result as normal/abnormal. MPV (test code = 36514-1) 12.0 fL 9.8-13 NRBC/100 WBC (test code = 7057796988) See_Comment [Automated 2nd Watch ssage] The system which generated this result transmitted reference range: 0.0 - 10.0 /100 WBCs. The reference range was not used to interpret this result as normal/abnormal. NRBC x10^3 (test code = 7155267815) <0.01 See_Comment [Automated messa ge] The system which generated this result transmitted reference range: 10*3/?L. The reference range was not used to interpret this result as normal/abnormal. GRAN MAT (NEUT) % (test code = 770-8) 71.9 % IMM GRAN % (test code = 8193373750) 0.50 % LYMPH % (test code = 736-9) 20.5 % MONO % (test code = 5905-5) 5.3 % EOS % (test code = 713-8) 1.2 % BASO % (test code = 706-2) 0.6 % GRAN MAT x10^3(ANC) (test code = 3886439598) 7.53 10*3/uL 1.99-6.95 H IMM GRAN x10^3 (test code = 4599075413) 0.05 10*3/uL 0-0.06 LYMPH x10^3 (test code = 731-0) 2.15 10*3/uL 1.09-3.23 MONO x10^3 (test code = 742-7) 0.56 10*3/uL 0.36-1.02 EOS x10^3 (test code = 711-2) 0.13 10*3/uL 0.06-0.53 BASO x10^3 (test code = 704-7) 0.06 10*3/uL 0.01-0.09 Lab Interpretation (test code = 12796-9) Abnormal [facility] WITH [id number] 01:59:00* Test Item Value Reference Range Interpretation Comme nts WBC (test code = 6690-2) See_Comment [Automated messa ge] The system which generated this result transmitted reference range: 4.20 - 10.70 10*3/?L. The reference range was not used to interpret this result as normal/abnormal. RBC (test code = 789-8) See_Comment [Automated messa ge] The system which generated this result transmitted reference range: 4.26 - 5.52 10*6/?L. The reference range was not used to interpret this result as normal/abnormal. HGB (test code = 718-7) 15.1 g/dL 12.2-16.4 HCT (test code = 4544-3) 46.5 % 38.4-49.3 MCV (test code = 787-2) 89.6 fL 81.7-95.6 MCH (test code = 785-6) 29.1 pg 26.1-32.7 MCHC (test code = 786-4) 32.5 g/dL 31.2-35 RDW-SD (test code = 93503-0) 40.9 fL 38.5-51.6 RDW-CV (test code = 788-0) 12.4 % 12.1-15.4 PLT (test code = 777-3) See_Comment [Automated messa ge] The system which generated this result transmitted reference range: 150 - 328 10*3/?L. The reference range was not used to interpret this result as normal/abnormal. MPV (test code = 22427-3) 12.0 fL 9.8-13 NRBC/100 WBC (test code = 4657085933) See_Comment [Automated 2nd Watch ssage] The system which generated this result transmitted reference range: 0.0 - 10.0 /100 WBCs. The reference range was not used to interpret this result as normal/abnormal. NRBC x10^3 (test code = 5149863003) <0.01 See_Comment [Automated messa ge] The system which generated this result transmitted reference range: 10*3/?L. The reference range was not used to interpret this result as normal/abnormal. GRAN MAT (NEUT) % (test code = 770-8) 71.9 % IMM GRAN % (test code = 2188749173) 0.50 % LYMPH % (test code = 736-9) 20.5 % MONO % (test code = 5905-5) 5.3 % EOS % (test code = 713-8) 1.2 % BASO % (test code = 706-2) 0.6 % GRAN MAT x10^3(ANC) (test code = 4142110557) 7.53 10*3/uL 1.99-6.95 H IMM GRAN x10^3 (test code = 3669757221) 0.05 10*3/uL 0-0.06 LYMPH x10^3 (test code = 731-0) 2.15 10*3/uL 1.09-3.23 MONO x10^3 (test code = 742-7) 0.56 10*3/uL 0.36-1.02 EOS x10^3 (test code = 711-2) 0.13 10*3/uL 0.06-0.53 BASO x10^3 (test code = 704-7) 0.06 10*3/uL 0.01-0.09 Lab Interpretation (test code = 86106-8) Abnormal [facility] WITH [id number] 01:59:00* Test Item Value Reference Range Interpretation Comme nts WBC (test code = 6690-2) See_Comment [Automated [employer]] The system which generated this result transmitted reference range: 4.20 - 10.70 10*3/?L. The reference range was not used to interpret this result as normal/abnormal. RBC (test code = 789-8) See_Comment [Automated messa ge] The system which generated this result transmitted reference range: 4.26 - 5.52 10*6/?L. The reference range was not used to interpret this result as normal/abnormal. HGB (test code = 718-7) 15.1 g/dL 12.2-16.4 HCT (test code = 4544-3) 46.5 % 38.4-49.3 MCV (test code = 787-2) 89.6 fL 81.7-95.6 MCH (test code = 785-6) 29.1 pg 26.1-32.7 MCHC (test code = 786-4) 32.5 g/dL 31.2-35 RDW-SD (test code = 15948-6) 40.9 fL 38.5-51.6 RDW-CV (test code = 788-0) 12.4 % 12.1-15.4 PLT (test code = 777-3) See_Comment [Automated messa ge] The system which generated this result transmitted reference range: 150 - 328 10*3/?L. The reference range was not used to interpret this result as normal/abnormal. MPV (test code = 15037-0) 12.0 fL 9.8-13 NRBC/100 WBC (test code = 0987267129) See_Comment [Automated 2nd Watch ssage] The system which generated this result transmitted reference range: 0.0 - 10.0 /100 WBCs. The reference range was not used to interpret this result as normal/abnormal. NRBC x10^3 (test code = 2879398117) <0.01 See_Comment [Automated [employer]] The system which generated this result transmitted reference range: 10*3/?L. The reference range was not used to interpret this result as normal/abnormal. GRAN MAT (NEUT) % (test code = 770-8) 71.9 % IMM GRAN % (test code = 4714102683) 0.50 % LYMPH % (test code = 736-9) 20.5 % MONO % (test code = 5905-5) 5.3 % EOS % (test code = 713-8) 1.2 % BASO % (test code = 706-2) 0.6 % GRAN MAT x10^3(ANC) (test code = 7722686368) 7.53 10*3/uL 1.99-6.95 H IMM GRAN x10^3 (test code = 2824675757) 0.05 10*3/uL 0-0.06 LYMPH x10^3 (test code = 731-0) 2.15 10*3/uL 1.09-3.23 MONO x10^3 (test code = 742-7) 0.56 10*3/uL 0.36-1.02 EOS x10^3 (test code = 711-2) 0.13 10*3/uL 0.06-0.53 BASO x10^3 (test code = 704-7) 0.06 10*3/uL 0.01-0.09 Lab Interpretation (test code = 16065-2) Abnormal [facility] WITH [id number] 01:59:00* Test Item Value Reference Range Interpretation Comme nts WBC (test code = 6690-2) See_Comment [Automated messa ge] The system which generated this result transmitted reference range: 4.20 - 10.70 10*3/?L. The reference range was not used to interpret this result as normal/abnormal. RBC (test code = 789-8) See_Comment [Automated messa ge] The system which generated this result transmitted reference range: 4.26 - 5.52 10*6/?L. The reference range was not used to interpret this result as normal/abnormal. HGB (test code = 718-7) 15.1 g/dL 12.2-16.4 HCT (test code = 4544-3) 46.5 % 38.4-49.3 MCV (test code = 787-2) 89.6 fL 81.7-95.6 MCH (test code = 785-6) 29.1 pg 26.1-32.7 MCHC (test code = 786-4) 32.5 g/dL 31.2-35 RDW-SD (test code = 27263-9) 40.9 fL 38.5-51.6 RDW-CV (test code = 788-0) 12.4 % 12.1-15.4 PLT (test code = 777-3) See_Comment [Automated messa ge] The system which generated this result transmitted reference range: 150 - 328 10*3/?L. The reference range was not used to interpret this result as normal/abnormal. MPV (test code = 65701-7) 12.0 fL 9.8-13 NRBC/100 WBC (test code = 0689011003) See_Comment [Automated 2nd Watch ssage] The system which generated this result transmitted reference range: 0.0 - 10.0 /100 WBCs. The reference range was not used to interpret this result as normal/abnormal. NRBC x10^3 (test code = 1346630151) <0.01 See_Comment [Automated messa ge] The system which generated this result transmitted reference range: 10*3/?L. The reference range was not used to interpret this result as normal/abnormal. GRAN MAT (NEUT) % (test code = 770-8) 71.9 % IMM GRAN % (test code = 0087978551) 0.50 % LYMPH % (test code = 736-9) 20.5 % MONO % (test code = 5905-5) 5.3 % EOS % (test code = 713-8) 1.2 % BASO % (test code = 706-2) 0.6 % GRAN MAT x10^3(ANC) (test code = 0072974620) 7.53 10*3/uL 1.99-6.95 H IMM GRAN x10^3 (test code = 4900536171) 0.05 10*3/uL 0-0.06 LYMPH x10^3 (test code = 731-0) 2.15 10*3/uL 1.09-3.23 MONO x10^3 (test code = 742-7) 0.56 10*3/uL 0.36-1.02 EOS x10^3 (test code = 711-2) 0.13 10*3/uL 0.06-0.53 BASO x10^3 (test code = 704-7) 0.06 10*3/uL 0.01-0.09 Lab Interpretation (test code = 78451-3) Abnormal [facility] WITH [id number] 01:59:00* Test Item Value Reference Range Interpretation Comme nts WBC (test code = 6690-2) See_Comment [Automated messa ge] The system which generated this result transmitted reference range: 4.20 - 10.70 10*3/?L. The reference range was not used to interpret this result as normal/abnormal. RBC (test code = 789-8) See_Comment [Automated messa ge] The system which generated this result transmitted reference range: 4.26 - 5.52 10*6/?L. The reference range was not used to interpret this result as normal/abnormal. HGB (test code = 718-7) 15.1 g/dL 12.2-16.4 HCT (test code = 4544-3) 46.5 % 38.4-49.3 MCV (test code = 787-2) 89.6 fL 81.7-95.6 MCH (test code = 785-6) 29.1 pg 26.1-32.7 MCHC (test code = 786-4) 32.5 g/dL 31.2-35 RDW-SD (test code = 11354-1) 40.9 fL 38.5-51.6 RDW-CV (test code = 788-0) 12.4 % 12.1-15.4 PLT (test code = 777-3) See_Comment [Automated messa ge] The system which generated this result transmitted reference range: 150 - 328 10*3/?L. The reference range was not used to interpret this result as normal/abnormal. MPV (test code = 17375-2) 12.0 fL 9.8-13 NRBC/100 WBC (test code = 7445922557) See_Comment [Automated 2nd Watch ssage] The system which generated this result transmitted reference range: 0.0 - 10.0 /100 WBCs. The reference range was not used to interpret this result as normal/abnormal. NRBC x10^3 (test code = 1112761770) <0.01 See_Comment [Automated messa ge] The system which generated this result transmitted reference range: 10*3/?L. The reference range was not used to interpret this result as normal/abnormal. GRAN MAT (NEUT) % (test code = 770-8) 71.9 % IMM GRAN % (test code = 3542627449) 0.50 % LYMPH % (test code = 736-9) 20.5 % MONO % (test code = 5905-5) 5.3 % EOS % (test code = 713-8) 1.2 % BASO % (test code = 706-2) 0.6 % GRAN MAT x10^3(ANC) (test code = 4561405461) 7.53 10*3/uL 1.99-6.95 H IMM GRAN x10^3 (test code = 9001054601) 0.05 10*3/uL 0-0.06 LYMPH x10^3 (test code = 731-0) 2.15 10*3/uL 1.09-3.23 MONO x10^3 (test code = 742-7) 0.56 10*3/uL 0.36-1.02 EOS x10^3 (test code = 711-2) 0.13 10*3/uL 0.06-0.53 BASO x10^3 (test code = 704-7) 0.06 10*3/uL 0.01-0.09 Lab Interpretation (test code = 90089-5) Abnormal [facility] WITH [id number] 01:59:00* Test Item Value Reference Range Interpretation Comme nts WBC (test code = 6690-2) See_Comment [Automated [employer]] The system which generated this result transmitted reference range: 4.20 - 10.70 10*3/?L. The reference range was not used to interpret this result as normal/abnormal. RBC (test code = 789-8) See_Comment [Automated [employer]] The system which generated this result transmitted reference range: 4.26 - 5.52 10*6/?L. The reference range was not used to interpret this result as normal/abnormal. HGB (test code = 718-7) 15.1 g/dL 12.2-16.4 HCT (test code = 4544-3) 46.5 % 38.4-49.3 MCV (test code = 787-2) 89.6 fL 81.7-95.6 MCH (test code = 785-6) 29.1 pg 26.1-32.7 MCHC (test code = 786-4) 32.5 g/dL 31.2-35 RDW-SD (test code = 74102-9) 40.9 fL 38.5-51.6 RDW-CV (test code = 788-0) 12.4 % 12.1-15.4 PLT (test code = 777-3) See_Comment [Automated [employer]] The system which generated this result transmitted reference range: 150 - 328 10*3/?L. The reference range was not used to interpret this result as normal/abnormal. MPV (test code = 39951-9) 12.0 fL 9.8-13 NRBC/100 WBC (test code = 8489617375) See_Comment [Automated 2nd Watch ssage] The system which generated this result transmitted reference range: 0.0 - 10.0 /100 WBCs. The reference range was not used to interpret this result as normal/abnormal. NRBC x10^3 (test code = 3436953483) <0.01 See_Comment [Automated messa ge] The system which generated this result transmitted reference range: 10*3/?L. The reference range was not used to interpret this result as normal/abnormal. GRAN MAT (NEUT) % (test code = 770-8) 71.9 % IMM GRAN % (test code = 9274713077) 0.50 % LYMPH % (test code = 736-9) 20.5 % MONO % (test code = 5905-5) 5.3 % EOS % (test code = 713-8) 1.2 % BASO % (test code = 706-2) 0.6 % GRAN MAT x10^3(ANC) (test code = 1116824943) 7.53 10*3/uL 1.99-6.95 H IMM GRAN x10^3 (test code = 5002379808) 0.05 10*3/uL 0-0.06 LYMPH x10^3 (test code = 731-0) 2.15 10*3/uL 1.09-3.23 MONO x10^3 (test code = 742-7) 0.56 10*3/uL 0.36-1.02 EOS x10^3 (test code = 711-2) 0.13 10*3/uL 0.06-0.53 BASO x10^3 (test code = 704-7) 0.06 10*3/uL 0.01-0.09 Lab Interpretation (test code = 55271-0) Abnormal [facility] WITH [id number] 01:59:00* Test Item Value Reference Range Interpretation Comme nts WBC (test code = 6690-2) See_Comment [Automated messa ge] The system which generated this result transmitted reference range: 4.20 - 10.70 10*3/?L. The reference range was not used to interpret this result as normal/abnormal. RBC (test code = 789-8) See_Comment [Automated messa ge] The system which generated this result transmitted reference range: 4.26 - 5.52 10*6/?L. The reference range was not used to interpret this result as normal/abnormal. HGB (test code = 718-7) 15.1 g/dL 12.2-16.4 HCT (test code = 4544-3) 46.5 % 38.4-49.3 MCV (test code = 787-2) 89.6 fL 81.7-95.6 MCH (test code = 785-6) 29.1 pg 26.1-32.7 MCHC (test code = 786-4) 32.5 g/dL 31.2-35 RDW-SD (test code = 51091-3) 40.9 fL 38.5-51.6 RDW-CV (test code = 788-0) 12.4 % 12.1-15.4 PLT (test code = 777-3) See_Comment [Automated [employer]] The system which generated this result transmitted reference range: 150 - 328 10*3/?L. The reference range was not used to interpret this result as normal/abnormal. MPV (test code = 72322-4) 12.0 fL 9.8-13 NRBC/100 WBC (test code = 2909236054) See_Comment [Automated 2nd Watch ssage] The system which generated this result transmitted reference range: 0.0 - 10.0 /100 WBCs. The reference range was not used to interpret this result as normal/abnormal. NRBC x10^3 (test code = 4241619994) <0.01 See_Comment [Automated [employer]] The system which generated this result transmitted reference range: 10*3/?L. The reference range was not used to interpret this result as normal/abnormal. GRAN MAT (NEUT) % (test code = 770-8) 71.9 % IMM GRAN % (test code = 6074268526) 0.50 % LYMPH % (test code = 736-9) 20.5 % MONO % (test code = 5905-5) 5.3 % EOS % (test code = 713-8) 1.2 % BASO % (test code = 706-2) 0.6 % GRAN MAT x10^3(ANC) (test code = 6795211250) 7.53 10*3/uL 1.99-6.95 H IMM GRAN x10^3 (test code = 2669305167) 0.05 10*3/uL 0-0.06 LYMPH x10^3 (test code = 731-0) 2.15 10*3/uL 1.09-3.23 MONO x10^3 (test code = 742-7) 0.56 10*3/uL 0.36-1.02 EOS x10^3 (test code = 711-2) 0.13 10*3/uL 0.06-0.53 BASO x10^3 (test code = 704-7) 0.06 10*3/uL 0.01-0.09 Lab Interpretation (test code = 51444-1) Abnormal [facility] WITH [id number] 01:59:00* Test Item Value Reference Range Interpretation Comme nts WBC (test code = 6690-2) See_Comment [Automated [employer]] The system which generated this result transmitted reference range: 4.20 - 10.70 10*3/?L. The reference range was not used to interpret this result as normal/abnormal. RBC (test code = 789-8) See_Comment [Automated [employer]] The system which generated this result transmitted reference range: 4.26 - 5.52 10*6/?L. The reference range was not used to interpret this result as normal/abnormal. HGB (test code = 718-7) 15.1 g/dL 12.2-16.4 HCT (test code = 4544-3) 46.5 % 38.4-49.3 MCV (test code = 787-2) 89.6 fL 81.7-95.6 MCH (test code = 785-6) 29.1 pg 26.1-32.7 MCHC (test code = 786-4) 32.5 g/dL 31.2-35 RDW-SD (test code = 86002-3) 40.9 fL 38.5-51.6 RDW-CV (test code = 788-0) 12.4 % 12.1-15.4 PLT (test code = 777-3) See_Comment [Automated messa ge] The system which generated this result transmitted reference range: 150 - 328 10*3/?L. The reference range was not used to interpret this result as normal/abnormal. MPV (test code = 01321-1) 12.0 fL 9.8-13 NRBC/100 WBC (test code = [id number]) See_Comment [Automated me ssage] The system which generated this result transmitted reference range: 0.0 - 10.0 /100 WBCs. The reference range was not used to interpret this result as normal/abnormal. NRBC x10^3 (test code = 4211809372) <0.01 See_Comment [Automated messa ge] The system which generated this result transmitted reference range: 10*3/?L. The reference range was not used to interpret this result as normal/abnormal. GRAN MAT (NEUT) % (test code = 770-8) 71.9 % IMM GRAN % (test code = 1027002560) 0.50 % LYMPH % (test code = 736-9) 20.5 % MONO % (test code = 5905-5) 5.3 % EOS % (test code = 713-8) 1.2 % BASO % (test code = 706-2) 0.6 % GRAN MAT x10^3(ANC) (test code = 8575947739) 7.53 10*3/uL 1.99-6.95 H IMM GRAN x10^3 (test code = 3609713083) 0.05 10*3/uL 0-0.06 LYMPH x10^3 (test code = 731-0) 2.15 10*3/uL 1.09-3.23 MONO x10^3 (test code = 742-7) 0.56 10*3/uL 0.36-1.02 EOS x10^3 (test code = 711-2) 0.13 10*3/uL 0.06-0.53 BASO x10^3 (test code = 704-7) 0.06 10*3/uL 0.01-0.09 Lab Interpretation (test code = 94769-1) Abnormal [facility] WITH [id number] 01:59:00* Test Item Value Reference Range Interpretation Comme nts WBC (test code = 6690-2) See_Comment [Automated messa ge] The system which generated this result transmitted reference range: 4.20 - 10.70 10*3/?L. The reference range was not used to interpret this result as normal/abnormal. RBC (test code = 789-8) See_Comment [Automated messa ge] The system which generated this result transmitted reference range: 4.26 - 5.52 10*6/?L. The reference range was not used to interpret this result as normal/abnormal. HGB (test code = 718-7) 15.1 g/dL 12.2-16.4 HCT (test code = 4544-3) 46.5 % 38.4-49.3 MCV (test code = 787-2) 89.6 fL 81.7-95.6 MCH (test code = 785-6) 29.1 pg 26.1-32.7 MCHC (test code = 786-4) 32.5 g/dL 31.2-35 RDW-SD (test code = 44773-1) 40.9 fL 38.5-51.6 RDW-CV (test code = 788-0) 12.4 % 12.1-15.4 PLT (test code = 777-3) See_Comment [Automated [employer]] The system which generated this result transmitted reference range: 150 - 328 10*3/?L. The reference range was not used to interpret this result as normal/abnormal. MPV (test code = 71412-3) 12.0 fL 9.8-13 NRBC/100 WBC (test code = 4121395145) See_Comment [Automated 2nd Watch ssage] The system which generated this result transmitted reference range: 0.0 - 10.0 /100 WBCs. The reference range was not used to interpret this result as normal/abnormal. NRBC x10^3 (test code = 3571630496) <0.01 See_Comment [Automated [employer]] The system which generated this result transmitted reference range: 10*3/?L. The reference range was not used to interpret this result as normal/abnormal. GRAN MAT (NEUT) % (test code = 770-8) 71.9 % IMM GRAN % (test code = 8799554044) 0.50 % LYMPH % (test code = 736-9) 20.5 % MONO % (test code = 5905-5) 5.3 % EOS % (test code = 713-8) 1.2 % BASO % (test code = 706-2) 0.6 % GRAN MAT x10^3(ANC) (test code = 2007759531) 7.53 10*3/uL 1.99-6.95 H IMM GRAN x10^3 (test code = 9013707098) 0.05 10*3/uL 0-0.06 LYMPH x10^3 (test code = 731-0) 2.15 10*3/uL 1.09-3.23 MONO x10^3 (test code = 742-7) 0.56 10*3/uL 0.36-1.02 EOS x10^3 (test code = 711-2) 0.13 10*3/uL 0.06-0.53 BASO x10^3 (test code = 704-7) 0.06 10*3/uL 0.01-0.09 Lab Interpretation (test code = 28401-3) Abnormal [facility] WITH [id number] 01:59:00* Test Item Value Reference Range Interpretation Comme nts WBC (test code = 6690-2) See_Comment [Automated [employer]] The system which generated this result transmitted reference range: 4.20 - 10.70 10*3/?L. The reference range was not used to interpret this result as normal/abnormal. RBC (test code = 789-8) See_Comment [Automated [employer]] The system which generated this result transmitted reference range: 4.26 - 5.52 10*6/?L. The reference range was not used to interpret this result as normal/abnormal. HGB (test code = 718-7) 15.1 g/dL 12.2-16.4 HCT (test code = 4544-3) 46.5 % 38.4-49.3 MCV (test code = 787-2) 89.6 fL 81.7-95.6 MCH (test code = 785-6) 29.1 pg 26.1-32.7 MCHC (test code = 786-4) 32.5 g/dL 31.2-35 RDW-SD (test code = 37217-7) 40.9 fL 38.5-51.6 RDW-CV (test code = 788-0) 12.4 % 12.1-15.4 PLT (test code = 777-3) See_Comment [Automated messa ge] The system which generated this result transmitted reference range: 150 - 328 10*3/?L. The reference range was not used to interpret this result as normal/abnormal. MPV (test code = 70153-7) 12.0 fL 9.8-13 NRBC/100 WBC (test code = 6781435842) See_Comment [Automated 2nd Watch ssage] The system which generated this result transmitted reference range: 0.0 - 10.0 /100 WBCs. The reference range was not used to interpret this result as normal/abnormal. NRBC x10^3 (test code = 8675403850) <0.01 See_Comment [Automated messa ge] The system which generated this result transmitted reference range: 10*3/?L. The reference range was not used to interpret this result as normal/abnormal. GRAN MAT (NEUT) % (test code = 770-8) 71.9 % IMM GRAN % (test code = 8554580657) 0.50 % LYMPH % (test code = 736-9) 20.5 % MONO % (test code = 5905-5) 5.3 % EOS % (test code = 713-8) 1.2 % BASO % (test code = 706-2) 0.6 % GRAN MAT x10^3(ANC) (test code = 7528097609) 7.53 10*3/uL 1.99-6.95 H IMM GRAN x10^3 (test code = 4443760150) 0.05 10*3/uL 0-0.06 LYMPH x10^3 (test code = 731-0) 2.15 10*3/uL 1.09-3.23 MONO x10^3 (test code = 742-7) 0.56 10*3/uL 0.36-1.02 EOS x10^3 (test code = 711-2) 0.13 10*3/uL 0.06-0.53 BASO x10^3 (test code = 704-7) 0.06 10*3/uL 0.01-0.09 Lab Interpretation (test code = 26167-6) Abnormal [facility] WITH [id number] 01:59:00* Test Item Value Reference Range Interpretation Comme nts WBC (test code = 6690-2) See_Comment [Automated messa ge] The system which generated this result transmitted reference range: 4.20 - 10.70 10*3/?L. The reference range was not used to interpret this result as normal/abnormal. RBC (test code = 789-8) See_Comment [Automated messa ge] The system which generated this result transmitted reference range: 4.26 - 5.52 10*6/?L. The reference range was not used to interpret this result as normal/abnormal. HGB (test code = 718-7) 15.1 g/dL 12.2-16.4 HCT (test code = 4544-3) 46.5 % 38.4-49.3 MCV (test code = 787-2) 89.6 fL 81.7-95.6 MCH (test code = 785-6) 29.1 pg 26.1-32.7 MCHC (test code = 786-4) 32.5 g/dL 31.2-35 RDW-SD (test code = 49929-3) 40.9 fL 38.5-51.6 RDW-CV (test code = 788-0) 12.4 % 12.1-15.4 PLT (test code = 777-3) See_Comment [Automated messa ge] The system which generated this result transmitted reference range: 150 - 328 10*3/?L. The reference range was not used to interpret this result as normal/abnormal. MPV (test code = 41139-7) 12.0 fL 9.8-13 NRBC/100 WBC (test code = 0952815520) See_Comment [Automated 2nd Watch ssage] The system which generated this result transmitted reference range: 0.0 - 10.0 /100 WBCs. The reference range was not used to interpret this result as normal/abnormal. NRBC x10^3 (test code = 1058300204) <0.01 See_Comment [Automated messa ge] The system which generated this result transmitted reference range: 10*3/?L. The reference range was not used to interpret this result as normal/abnormal. GRAN MAT (NEUT) % (test code = 770-8) 71.9 % IMM GRAN % (test code = 0011148421) 0.50 % LYMPH % (test code = 736-9) 20.5 % MONO % (test code = 5905-5) 5.3 % EOS % (test code = 713-8) 1.2 % BASO % (test code = 706-2) 0.6 % GRAN MAT x10^3(ANC) (test code = 1252155108) 7.53 10*3/uL 1.99-6.95 H IMM GRAN x10^3 (test code = 8280391564) 0.05 10*3/uL 0-0.06 LYMPH x10^3 (test code = 731-0) 2.15 10*3/uL 1.09-3.23 MONO x10^3 (test code = 742-7) 0.56 10*3/uL 0.36-1.02 EOS x10^3 (test code = 711-2) 0.13 10*3/uL 0.06-0.53 BASO x10^3 (test code = 704-7) 0.06 10*3/uL 0.01-0.09 Lab Interpretation (test code = 27921-0) Abnormal [facility] WITH [id number] 01:59:00* Test Item Value Reference Range Interpretation Comme nts WBC (test code = 6690-2) See_Comment [Automated messa ge] The system which generated this result transmitted reference range: 4.20 - 10.70 10*3/?L. The reference range was not used to interpret this result as normal/abnormal. RBC (test code = 789-8) See_Comment [Automated messa ge] The system which generated this result transmitted reference range: 4.26 - 5.52 10*6/?L. The reference range was not used to interpret this result as normal/abnormal. HGB (test code = 718-7) 15.1 g/dL 12.2-16.4 HCT (test code = 4544-3) 46.5 % 38.4-49.3 MCV (test code = 787-2) 89.6 fL 81.7-95.6 MCH (test code = 785-6) 29.1 pg 26.1-32.7 MCHC (test code = 786-4) 32.5 g/dL 31.2-35 RDW-SD (test code = 63750-4) 40.9 fL 38.5-51.6 RDW-CV (test code = 788-0) 12.4 % 12.1-15.4 PLT (test code = 777-3) See_Comment [Automated [employer]] The system which generated this result transmitted reference range: 150 - 328 10*3/?L. The reference range was not used to interpret this result as normal/abnormal. MPV (test code = 89668-4) 12.0 fL 9.8-13 NRBC/100 WBC (test code = 5697094214) See_Comment [Automated 2nd Watch ssage] The system which generated this result transmitted reference range: 0.0 - 10.0 /100 WBCs. The reference range was not used to interpret this result as normal/abnormal. NRBC x10^3 (test code = 7212300194) <0.01 See_Comment [Automated [employer]] The system which generated this result transmitted reference range: 10*3/?L. The reference range was not used to interpret this result as normal/abnormal. GRAN MAT (NEUT) % (test code = 770-8) 71.9 % IMM GRAN % (test code = 6180032934) 0.50 % LYMPH % (test code = 736-9) 20.5 % MONO % (test code = 5905-5) 5.3 % EOS % (test code = 713-8) 1.2 % BASO % (test code = 706-2) 0.6 % GRAN MAT x10^3(ANC) (test code = 8209575270) 7.53 10*3/uL 1.99-6.95 H IMM GRAN x10^3 (test code = 3145215890) 0.05 10*3/uL 0-0.06 LYMPH x10^3 (test code = 731-0) 2.15 10*3/uL 1.09-3.23 MONO x10^3 (test code = 742-7) 0.56 10*3/uL 0.36-1.02 EOS x10^3 (test code = 711-2) 0.13 10*3/uL 0.06-0.53 BASO x10^3 (test code = 704-7) 0.06 10*3/uL 0.01-0.09 Lab Interpretation (test code = 19929-4) Abnormal [facility]-19 (ID NOW RAPID TESTING)2019-12-16 21:15:00* Test Item Value Reference Range Interpretation Comme nts SARS-CoV-2 Rapid ID NOW (test code = 53899-9) Not Detected Not Detected BEVERLY (test code = BEVERLY) ID NOW COVID-19 As say is an isothermal nucleic acid amplification test intended for the qualitative detection of nucleic acid from SARS-CoV-2 viral RNA in nasopharyngeal (RECYCLING DIRECTOR) specimens. It is used under Emergency Use Authorization (EUA) by FDA. The limit of detection (LOD) of the assay is 125 Genome Equivalents/mL. A positive result is indicative of the presence of SARS-CoV-2 RNA. ?Clinical correlation with patient history and other diagnostic information is necessary to determine patient infection status. A negative (Not Detected) result does not preclude SARS-CoV-2 infection. In patients with clinical symptoms and other tests that are consistent with SARS-CoV-2 infection, negative results should be treated as presumptive negative and a new specimen should be tested with alternative PCR molecular test. Invalid: Please collect a new specimen for repeat patient testing if clinically indicated. Lab Interpretation (test code = 45527-6) Normal [facility]-19 (ID NOW RAPID TESTING)2019-12-16 21:15:00* Test Item Value Reference Range Interpretation Comme nts SARS-CoV-2 Rapid ID NOW (test code = 77159-8) Not Detected Not Detected BEVERLY (test code = BEVERLY) ID NOW COVID-19 As say is an isothermal nucleic acid amplification test intended for the qualitative detection of nucleic acid from SARS-CoV-2 viral RNA in nasopharyngeal (RECYCLING DIRECTOR) specimens. It is used under Emergency Use Authorization (EUA) by FDA. The limit of detection (LOD) of the assay is 125 Genome Equivalents/mL. A positive result is indicative of the presence of SARS-CoV-2 RNA. ?Clinical correlation with patient history and other diagnostic information is necessary to determine patient infection status. A negative (Not Detected) result does not preclude SARS-CoV-2 infection. In patients with clinical symptoms and other tests that are consistent with SARS-CoV-2 infection, negative results should be treated as presumptive negative and a new specimen should be tested with alternative PCR molecular test. Invalid: Please collect a new specimen for repeat patient testing if clinically indicated. Lab Interpretation (test code = 15648-9) Normal [facility]-19 (ID NOW RAPID TESTING)2019-12-16 21:15:00* Test Item Value Reference Range Interpretation Comme [facility] SARS-CoV-2 Rapid ID NOW (test code = 65655-6) Not Detected Not Detected BEVERLY (test code = BEVERLY) ID NOW COVID-19 As say is an isothermal nucleic acid amplification test intended for the qualitative detection of nucleic acid from SARS-CoV-2 viral RNA in nasopharyngeal (RECYCLING DIRECTOR) specimens. It is used under Emergency Use Authorization (EUA) by FDA. The limit of detection (LOD) of the assay is 125 Genome Equivalents/mL. A positive result is indicative of the presence of SARS-CoV-2 RNA. ?Clinical correlation with patient history and other diagnostic information is necessary to determine patient infection status. A negative (Not Detected) result does not preclude SARS-CoV-2 infection. In patients with clinical symptoms and other tests that are consistent with SARS-CoV-2 infection, negative results should be treated as presumptive negative and a new specimen should be tested with alternative PCR molecular test. Invalid: Please collect a new specimen for repeat patient testing if clinically indicated. Lab Interpretation (test code = 10901-0) Normal [facility]-19 (ID NOW RAPID TESTING)2019-12-16 21:15:00* Test Item Value Reference Range Interpretation Comme [facility] SARS-CoV-2 Rapid ID NOW (test code = 72206-2) Not Detected Not Detected BEVERLY (test code = BEVERLY) ID NOW COVID-19 As say is an isothermal nucleic acid amplification test intended for the qualitative detection of nucleic acid from SARS-CoV-2 viral RNA in nasopharyngeal (RECYCLING DIRECTOR) specimens. It is used under Emergency Use Authorization (EUA) by FDA. The limit of detection (LOD) of the assay is 125 Genome Equivalents/mL. A positive result is indicative of the presence of SARS-CoV-2 RNA. ?Clinical correlation with patient history and other diagnostic information is necessary to determine patient infection status. A negative (Not Detected) result does not preclude SARS-CoV-2 infection. In patients with clinical symptoms and other tests that are consistent with SARS-CoV-2 infection, negative results should be treated as presumptive negative and a new specimen should be tested with alternative PCR molecular test. Invalid: Please collect a new specimen for repeat patient testing if clinically indicated. Lab Interpretation (test code = 82481-2) Normal [facility]-19 (ID NOW RAPID TESTING)2019-12-16 21:15:00* Test Item Value Reference Range Interpretation Comme nts SARS-CoV-2 Rapid ID NOW (test code = 41251-0) Not Detected Not Detected BEVERLY (test code = BEVERLY) ID NOW COVID-19 As say is an isothermal nucleic acid amplification test intended for the qualitative detection of nucleic acid from SARS-CoV-2 viral RNA in nasopharyngeal (RECYCLING DIRECTOR) specimens. It is used under Emergency Use Authorization (EUA) by FDA. The limit of detection (LOD) of the assay is 125 Genome Equivalents/mL. A positive result is indicative of the presence of SARS-CoV-2 RNA. ?Clinical correlation with patient history and other diagnostic information is necessary to determine patient infection status. A negative (Not Detected) result does not preclude SARS-CoV-2 infection. In patients with clinical symptoms and other tests that are consistent with SARS-CoV-2 infection, negative results should be treated as presumptive negative and a new specimen should be tested with alternative PCR molecular test. Invalid: Please collect a new specimen for repeat patient testing if clinically indicated. Lab Interpretation (test code = 05226-6) [facility]-19 (ID NOW RAPID TESTING)2019-12-16 21:15:00* Test Item Value Reference Range Interpretation Comme nts SARS-CoV-2 Rapid ID NOW (test code = 91378-9) Not Detected Not Detected BEVERLY (test code = BEVERLY) ID NOW COVID-19 As say is an isothermal nucleic acid amplification test intended for the qualitative detection of nucleic acid from SARS-CoV-2 viral RNA in nasopharyngeal (RECYCLING DIRECTOR) specimens. It is used under Emergency Use Authorization (EUA) by FDA. The limit of detection (LOD) of the assay is 125 Genome Equivalents/mL. A positive result is indicative of the presence of SARS-CoV-2 RNA. ?Clinical correlation with patient history and other diagnostic information is necessary to determine patient infection status. A negative (Not Detected) result does not preclude SARS-CoV-2 infection. In patients with clinical symptoms and other tests that are consistent with SARS-CoV-2 infection, negative results should be treated as presumptive negative and a new specimen should be tested with alternative PCR molecular test. Invalid: Please collect a new specimen for repeat patient testing if clinically indicated. Lab Interpretation (test code = 70793-1) [facility]2019-12[facility]16 21:15:00* Test Item Value Reference Range Interpretation Comme nts SARS-CoV-2 Rapid ID NOW (test code = 30448-0) Not Detected Not Detected BEVERLY (test code = BEVERLY) ID NOW COVID-19 As say is an isothermal nucleic acid amplification test intended for the qualitative detection of nucleic acid from SARS-CoV-2 viral RNA in nasopharyngeal (RECYCLING DIRECTOR) specimens. It is used under Emergency Use Authorization (EUA) by FDA. The limit of detection (LOD) of the assay is 125 Genome Equivalents/mL. A positive result is indicative of the presence of SARS-CoV-2 RNA. ?Clinical correlation with patient history and other diagnostic information is necessary to determine patient infection status. A negative (Not Detected) result does not preclude SARS-CoV-2 infection. In patients with clinical symptoms and other tests that are consistent with SARS-CoV-2 infection, negative results should be treated as presumptive negative and a new specimen should be tested with alternative PCR molecular test. Invalid: Please collect a new specimen for repeat patient testing if clinically indicated. Lab Interpretation (test code = 16718-6) Normal [facility]-19 (ID NOW RAPID TESTING)2019-12-16 21:15:00* Test Item Value Reference Range Interpretation Comme nts SARS-CoV-2 Rapid ID NOW (test code = 83546-0) Not Detected Not Detected BEVERLY (test code = BEVERLY) ID NOW COVID-19 As say is an isothermal nucleic acid amplification test intended for the qualitative detection of nucleic acid from SARS-CoV-2 viral RNA in nasopharyngeal (RECYCLING DIRECTOR) specimens. It is used under Emergency Use Authorization (EUA) by FDA. The limit of detection (LOD) of the assay is 125 Genome Equivalents/mL. A positive result is indicative of the presence of SARS-CoV-2 RNA. ?Clinical correlation with patient history and other diagnostic information is necessary to determine patient infection status. A negative (Not Detected) result does not preclude SARS-CoV-2 infection. In patients with clinical symptoms and other tests that are consistent with SARS-CoV-2 infection, negative results should be treated as presumptive negative and a new specimen should be tested with alternative PCR molecular test. Invalid: Please collect a new specimen for repeat patient testing if clinically indicated. Lab Interpretation (test code = 62781-2) [facility]2019-[facility]16 21:15:00* Test Item Value Reference Range Interpretation Comme nts SARS-CoV-2 Rapid ID NOW (test code = 67190-2) Not Detected Not Detected BEVERLY (test code = BEVERLY) ID NOW COVID-19 As say is an isothermal nucleic acid amplification test intended for the qualitative detection of nucleic acid from SARS-CoV-2 viral RNA in nasopharyngeal (RECYCLING DIRECTOR) specimens. It is used under Emergency Use Authorization (EUA) by FDA. The limit of detection (LOD) of the assay is 125 Genome Equivalents/mL. A positive result is indicative of the presence of SARS-CoV-2 RNA. ?Clinical correlation with patient history and other diagnostic information is necessary to determine patient infection status. A negative (Not Detected) result does not preclude SARS-CoV-2 infection. In patients with clinical symptoms and other tests that are consistent with SARS-CoV-2 infection, negative results should be treated as presumptive negative and a new specimen should be tested with alternative PCR molecular test. Invalid: Please collect a new specimen for repeat patient testing if clinically indicated. Lab Interpretation (test code = 19579-2) [facility]2019-12[facility]16 21:15:00* Test Item Value Reference Range Interpretation Comme nts SARS-CoV-2 Rapid ID NOW (test code = 86353-4) Not Detected Not Detected BEVERLY (test code = BEVERLY) ID NOW COVID-19 As say is an isothermal nucleic acid amplification test intended for the qualitative detection of nucleic acid from SARS-CoV-2 viral RNA in nasopharyngeal (RECYCLING DIRECTOR) specimens. It is used under Emergency Use Authorization (EUA) by FDA. The limit of detection (LOD) of the assay is 125 Genome Equivalents/mL. A positive result is indicative of the presence of SARS-CoV-2 RNA. ?Clinical correlation with patient history and other diagnostic information is necessary to determine patient infection status. A negative (Not Detected) result does not preclude SARS-CoV-2 infection. In patients with clinical symptoms and other tests that are consistent with SARS-CoV-2 infection, negative results should be treated as presumptive negative and a new specimen should be tested with alternative PCR molecular test. Invalid: Please collect a new specimen for repeat patient testing if clinically indicated. Lab Interpretation (test code = 77145-8) [facility]16 21:15:00* Test Item Value Reference Range Interpretation Comme nts SARS-CoV-2 Rapid ID NOW (test code = 21614-9) Not Detected Not Detected BEVERLY (test code = BEVERLY) ID NOW COVID-19 As say is an isothermal nucleic acid amplification test intended for the qualitative detection of nucleic acid from SARS-CoV-2 viral RNA in nasopharyngeal (RECYCLING DIRECTOR) specimens. It is used under Emergency Use Authorization (EUA) by FDA. The limit of detection (LOD) of the assay is 125 Genome Equivalents/mL. A positive result is indicative of the presence of SARS-CoV-2 RNA. ?Clinical correlation with patient history and other diagnostic information is necessary to determine patient infection status. A negative (Not Detected) result does not preclude SARS-CoV-2 infection. In patients with clinical symptoms and other tests that are consistent with SARS-CoV-2 infection, negative results should be treated as presumptive negative and a new specimen should be tested with alternative PCR molecular test. Invalid: Please collect a new specimen for repeat patient testing if clinically indicated. Lab Interpretation (test code = 99457-5) [facility]2019-[facility]-16 21:15:00* Test Item Value Reference Range Interpretation Comme nts SARS-CoV-2 Rapid ID NOW (test code = 01070-1) Not Detected Not Detected BEVERLY (test code = BEVERLY) ID NOW COVID-19 As say is an isothermal nucleic acid amplification test intended for the qualitative detection of nucleic acid from SARS-CoV-2 viral RNA in nasopharyngeal (RECYCLING DIRECTOR) specimens. It is used under Emergency Use Authorization (EUA) by FDA. The limit of detection (LOD) of the assay is 125 Genome Equivalents/mL. A positive result is indicative of the presence of SARS-CoV-2 RNA. ?Clinical correlation with patient history and other diagnostic information is necessary to determine patient infection status. A negative (Not Detected) result does not preclude SARS-CoV-2 infection. In patients with clinical symptoms and other tests that are consistent with SARS-CoV-2 infection, negative results should be treated as presumptive negative and a new specimen should be tested with alternative PCR molecular test. Invalid: Please collect a new specimen for repeat patient testing if clinically indicated. Lab Interpretation (test code = 70394-9) [facility]2019-[facility]-16 21:15:00* Test Item Value Reference Range Interpretation Comme nts SARS-CoV-2 Rapid ID NOW (test code = 88280-0) Not Detected Not Detected BEVERLY (test code = BEVERLY) ID NOW COVID-19 As say is an isothermal nucleic acid amplification test intended for the qualitative detection of nucleic acid from SARS-CoV-2 viral RNA in nasopharyngeal (RECYCLING DIRECTOR) specimens. It is used under Emergency Use Authorization (EUA) by FDA. The limit of detection (LOD) of the assay is 125 Genome Equivalents/mL. A positive result is indicative of the presence of SARS-CoV-2 RNA. ?Clinical correlation with patient history and other diagnostic information is necessary to determine patient infection status. A negative (Not Detected) result does not preclude SARS-CoV-2 infection. In patients with clinical symptoms and other tests that are consistent with SARS-CoV-2 infection, negative results should be treated as presumptive negative and a new specimen should be tested with alternative PCR molecular test. Invalid: Please collect a new specimen for repeat patient testing if clinically indicated. Lab Interpretation (test code = 81475-5) [facility]2019-[facility]-16 21:15:00* Test Item Value Reference Range Interpretation Comme nts SARS-CoV-2 Rapid ID NOW (test code = 58884-5) Not Detected Not Detected BEVERLY (test code = BEVERLY) ID NOW COVID-19 As say is an isothermal nucleic acid amplification test intended for the qualitative detection of nucleic acid from SARS-CoV-2 viral RNA in nasopharyngeal (RECYCLING DIRECTOR) specimens. It is used under Emergency Use Authorization (EUA) by FDA. The limit of detection (LOD) of the assay is 125 Genome Equivalents/mL. A positive result is indicative of the presence of SARS-CoV-2 RNA. ?Clinical correlation with patient history and other diagnostic information is necessary to determine patient infection status. A negative (Not Detected) result does not preclude SARS-CoV-2 infection. In patients with clinical symptoms and other tests that are consistent with SARS-CoV-2 infection, negative results should be treated as presumptive negative and a new specimen should be tested with alternative PCR molecular test. Invalid: Please collect a new specimen for repeat patient testing if clinically indicated. Lab Interpretation (test code = 34929-8) [facility] 21:15:00* Test Item Value Reference Range Interpretation Comme nts SARS-CoV-2 Rapid ID NOW (test code = 34830-8) Not Detected Not Detected BEVERLY (test code = BEVERLY) ID NOW COVID-19 As say is an isothermal nucleic acid amplification test intended for the qualitative detection of nucleic acid from SARS-CoV-2 viral RNA in nasopharyngeal (RECYCLING DIRECTOR) specimens. It is used under Emergency Use Authorization (EUA) by FDA. The limit of detection (LOD) of the assay is 125 Genome Equivalents/mL. A positive result is indicative of the presence of SARS-CoV-2 RNA. ?Clinical correlation with patient history and other diagnostic information is necessary to determine patient infection status. A negative (Not Detected) result does not preclude SARS-CoV-2 infection. In patients with clinical symptoms and other tests that are consistent with SARS-CoV-2 infection, negative results should be treated as presumptive negative and a new specimen should be tested with alternative PCR molecular test. Invalid: Please collect a new specimen for repeat patient testing if clinically indicated. Lab Interpretation (test code = 75336-9) [facility]2019-[facility]-16 21:15:00* Test Item Value Reference Range Interpretation Comme nts SARS-CoV-2 Rapid ID NOW (test code = 15379-1) Not Detected Not Detected BEVERLY (test code = BEVERLY) ID NOW COVID-19 As say is an isothermal nucleic acid amplification test intended for the qualitative detection of nucleic acid from SARS-CoV-2 viral RNA in nasopharyngeal (RECYCLING DIRECTOR) specimens. It is used under Emergency Use Authorization (EUA) by FDA. The limit of detection (LOD) of the assay is 125 Genome Equivalents/mL. A positive result is indicative of the presence of SARS-CoV-2 RNA. ?Clinical correlation with patient history and other diagnostic information is necessary to determine patient infection status. A negative (Not Detected) result does not preclude SARS-CoV-2 infection. In patients with clinical symptoms and other tests that are consistent with SARS-CoV-2 infection, negative results should be treated as presumptive negative and a new specimen should be tested with alternative PCR molecular test. Invalid: Please collect a new specimen for repeat patient testing if clinically indicated. Lab Interpretation (test code = 47334-2) [facility]2019-12-16 21:15:00* Test Item Value Reference Range Interpretation Comme nts SARS-CoV-2 Rapid ID NOW (test code = 43845-1) Not Detected Not Detected BEVERLY (test code = BEVERLY) ID NOW COVID-19 As say is an isothermal nucleic acid amplification test intended for the qualitative detection of nucleic acid from SARS-CoV-2 viral RNA in nasopharyngeal (RECYCLING DIRECTOR) specimens. It is used under Emergency Use Authorization (EUA) by FDA. The limit of detection (LOD) of the assay is 125 Genome Equivalents/mL. A positive result is indicative of the presence of SARS-CoV-2 RNA. ?Clinical correlation with patient history and other diagnostic information is necessary to determine patient infection status. A negative (Not Detected) result does not preclude SARS-CoV-2 infection. In patients with clinical symptoms and other tests that are consistent with SARS-CoV-2 infection, negative results should be treated as presumptive negative and a new specimen should be tested with alternative PCR molecular test. Invalid: Please collect a new specimen for repeat patient testing if clinically indicated. Lab Interpretation (test code = 35308-0) [facility]2019-12-16 21:15:00* Test Item Value Reference Range Interpretation Comme nts SARS-CoV-2 Rapid ID NOW (test code = 53757-5) Not Detected Not Detected BEVERLY (test code = BEVERLY) ID NOW COVID-19 As say is an isothermal nucleic acid amplification test intended for the qualitative detection of nucleic acid from SARS-CoV-2 viral RNA in nasopharyngeal (RECYCLING DIRECTOR) specimens. It is used under Emergency Use Authorization (EUA) by FDA. The limit of detection (LOD) of the assay is 125 Genome Equivalents/mL. A positive result is indicative of the presence of SARS-CoV-2 RNA. ?Clinical correlation with patient history and other diagnostic information is necessary to determine patient infection status. A negative (Not Detected) result does not preclude SARS-CoV-2 infection. In patients with clinical symptoms and other tests that are consistent with SARS-CoV-2 infection, negative results should be treated as presumptive negative and a new specimen should be tested with alternative PCR molecular test. Invalid: Please collect a new specimen for repeat patient testing if clinically indicated. Lab Interpretation (test code = 96868-1) [facility]2019-12-16 21:15:00* Test Item Value Reference Range Interpretation Comme nts SARS-CoV-2 Rapid ID NOW (test code = 47808-5) Not Detected Not Detected BEVERLY (test code = BEVERLY) ID NOW COVID-19 As say is an isothermal nucleic acid amplification test intended for the qualitative detection of nucleic acid from SARS-CoV-2 viral RNA in nasopharyngeal (RECYCLING DIRECTOR) specimens. It is used under Emergency Use Authorization (EUA) by FDA. The limit of detection (LOD) of the assay is 125 Genome Equivalents/mL. A positive result is indicative of the presence of SARS-CoV-2 RNA. ?Clinical correlation with patient history and other diagnostic information is necessary to determine patient infection status. A negative (Not Detected) result does not preclude SARS-CoV-2 infection. In patients with clinical symptoms and other tests that are consistent with SARS-CoV-2 infection, negative results should be treated as presumptive negative and a new specimen should be tested with alternative PCR molecular test. Invalid: Please collect a new specimen for repeat patient testing if clinically indicated. Lab Interpretation (test code = 92348-8) [facility]2019-12-16 21:15:00* Test Item Value Reference Range Interpretation Comme nts SARS-CoV-2 Rapid ID NOW (test code = 85284-8) Not Detected Not Detected BEVERLY (test code = BEVERLY) ID NOW COVID-19 As say is an isothermal nucleic acid amplification test intended for the qualitative detection of nucleic acid from SARS-CoV-2 viral RNA in nasopharyngeal (RECYCLING DIRECTOR) specimens. It is used under Emergency Use Authorization (EUA) by FDA. The limit of detection (LOD) of the assay is 125 Genome Equivalents/mL. A positive result is indicative of the presence of SARS-CoV-2 RNA. ?Clinical correlation with patient history and other diagnostic information is necessary to determine patient infection status. A negative (Not Detected) result does not preclude SARS-CoV-2 infection. In patients with clinical symptoms and other tests that are consistent with SARS-CoV-2 infection, negative results should be treated as presumptive negative and a new specimen should be tested with alternative PCR molecular test. Invalid: Please collect a new specimen for repeat patient testing if clinically indicated. Lab Interpretation (test code = 48814-7) [facility]2019-12-16 21:15:00* Test Item Value Reference Range Interpretation Comme nts SARS-CoV-2 Rapid ID NOW (test code = 45249-8) Not Detected Not Detected BEVERLY (test code = BEVERLY) ID NOW COVID-19 As say is an isothermal nucleic acid amplification test intended for the qualitative detection of nucleic acid from SARS-CoV-2 viral RNA in nasopharyngeal (RECYCLING DIRECTOR) specimens. It is used under Emergency Use Authorization (EUA) by FDA. The limit of detection (LOD) of the assay is 125 Genome Equivalents/mL. A positive result is indicative of the presence of SARS-CoV-2 RNA. ?Clinical correlation with patient history and other diagnostic information is necessary to determine patient infection status. A negative (Not Detected) result does not preclude SARS-CoV-2 infection. In patients with clinical symptoms and other tests that are consistent with SARS-CoV-2 infection, negative results should be treated as presumptive negative and a new specimen should be tested with alternative PCR molecular test. Invalid: Please collect a new specimen for repeat patient testing if clinically indicated. Lab Interpretation (test code = 30108-5) [facility]2019-12-16 21:15:00* Test Item Value Reference Range Interpretation Comme nts SARS-CoV-2 Rapid ID NOW (test code = 57479-4) Not Detected Not Detected BEVERLY (test code = BEVERLY) ID NOW COVID-19 As say is an isothermal nucleic acid amplification test intended for the qualitative detection of nucleic acid from SARS-CoV-2 viral RNA in nasopharyngeal (RECYCLING DIRECTOR) specimens. It is used under Emergency Use Authorization (EUA) by FDA. The limit of detection (LOD) of the assay is 125 Genome Equivalents/mL. A positive result is indicative of the presence of SARS-CoV-2 RNA. ?Clinical correlation with patient history and other diagnostic information is necessary to determine patient infection status. A negative (Not Detected) result does not preclude SARS-CoV-2 infection. In patients with clinical symptoms and other tests that are consistent with SARS-CoV-2 infection, negative results should be treated as presumptive negative and a new specimen should be tested with alternative PCR molecular test. Invalid: Please collect a new specimen for repeat patient testing if clinically indicated. Lab Interpretation (test code = 44512-5) [facility]2019-12-16 21:15:00* Test Item Value Reference Range Interpretation Comme nts SARS-CoV-2 Rapid ID NOW (test code = 45626-9) Not Detected Not Detected BEVERLY (test code = BEVERLY) ID NOW COVID-19 As say is an isothermal nucleic acid amplification test intended for the qualitative detection of nucleic acid from SARS-CoV-2 viral RNA in nasopharyngeal (RECYCLING DIRECTOR) specimens. It is used under Emergency Use Authorization (EUA) by FDA. The limit of detection (LOD) of the assay is 125 Genome Equivalents/mL. A positive result is indicative of the presence of SARS-CoV-2 RNA. ?Clinical correlation with patient history and other diagnostic information is necessary to determine patient infection status. A negative (Not Detected) result does not preclude SARS-CoV-2 infection. In patients with clinical symptoms and other tests that are consistent with SARS-CoV-2 infection, negative results should be treated as presumptive negative and a new specimen should be tested with alternative PCR molecular test. Invalid: Please collect a new specimen for repeat patient testing if clinically indicated. Lab Interpretation (test code = 23137-5) [facility]2019-12-16 21:15:00* Test Item Value Reference Range Interpretation Comme nts SARS-CoV-2 Rapid ID NOW (test code = 70216-9) Not Detected Not Detected BEVERLY (test code = BEVERLY) ID NOW COVID-19 As say is an isothermal nucleic acid amplification test intended for the qualitative detection of nucleic acid from SARS-CoV-2 viral RNA in nasopharyngeal (RECYCLING DIRECTOR) specimens. It is used under Emergency Use Authorization (EUA) by FDA. The limit of detection (LOD) of the assay is 125 Genome Equivalents/mL. A positive result is indicative of the presence of SARS-CoV-2 RNA. ?Clinical correlation with patient history and other diagnostic information is necessary to determine patient infection status. A negative (Not Detected) result does not preclude SARS-CoV-2 infection. In patients with clinical symptoms and other tests that are consistent with SARS-CoV-2 infection, negative results should be treated as presumptive negative and a new specimen should be tested with alternative PCR molecular test. Invalid: Please collect a new specimen for repeat patient testing if clinically indicated. Lab Interpretation (test code = 62775-9) [facility]16 21:15:00* Test Item Value Reference Range Interpretation Comme nts SARS-CoV-2 Rapid ID NOW (test code = 94397-1) Not Detected Not Detected BEVERLY (test code = BEVERLY) ID NOW COVID-19 As say is an isothermal nucleic acid amplification test intended for the qualitative detection of nucleic acid from SARS-CoV-2 viral RNA in nasopharyngeal (RECYCLING DIRECTOR) specimens. It is used under Emergency Use Authorization (EUA) by FDA. The limit of detection (LOD) of the assay is 125 Genome Equivalents/mL. A positive result is indicative of the presence of SARS-CoV-2 RNA. ?Clinical correlation with patient history and other diagnostic information is necessary to determine patient infection status. A negative (Not Detected) result does not preclude SARS-CoV-2 infection. In patients with clinical symptoms and other tests that are consistent with SARS-CoV-2 infection, negative results should be treated as presumptive negative and a new specimen should be tested with alternative PCR molecular test. Invalid: Please collect a new specimen for repeat patient testing if clinically indicated. Lab Interpretation (test code = 42876-5) [facility]2019-12-16 21:15:00* Test Item Value Reference Range Interpretation Comme nts SARS-CoV-2 Rapid ID NOW (test code = 72062-4) Not Detected Not Detected BEVERLY (test code = BEVERLY) ID NOW COVID-19 As say is an isothermal nucleic acid amplification test intended for the qualitative detection of nucleic acid from SARS-CoV-2 viral RNA in nasopharyngeal (RECYCLING DIRECTOR) specimens. It is used under Emergency Use Authorization (EUA) by FDA. The limit of detection (LOD) of the assay is 125 Genome Equivalents/mL. A positive result is indicative of the presence of SARS-CoV-2 RNA. ?Clinical correlation with patient history and other diagnostic information is necessary to determine patient infection status. A negative (Not Detected) result does not preclude SARS-CoV-2 infection. In patients with clinical symptoms and other tests that are consistent with SARS-CoV-2 infection, negative results should be treated as presumptive negative and a new specimen should be tested with alternative PCR molecular test. Invalid: Please collect a new specimen for repeat patient testing if clinically indicated. Lab Interpretation (test code = 09885-5) [facility] 21:15:00* Test Item Value Reference Range Interpretation Comme nts SARS-CoV-2 Rapid ID NOW (test code = 91652-5) Not Detected Not Detected BEVERLY (test code = BEVERLY) ID NOW COVID-19 As say is an isothermal nucleic acid amplification test intended for the qualitative detection of nucleic acid from SARS-CoV-2 viral RNA in nasopharyngeal (RECYCLING DIRECTOR) specimens. It is used under Emergency Use Authorization (EUA) by FDA. The limit of detection (LOD) of the assay is 125 Genome Equivalents/mL. A positive result is indicative of the presence of SARS-CoV-2 RNA. ?Clinical correlation with patient history and other diagnostic information is necessary to determine patient infection status. A negative (Not Detected) result does not preclude SARS-CoV-2 infection. In patients with clinical symptoms and other tests that are consistent with SARS-CoV-2 infection, negative results should be treated as presumptive negative and a new specimen should be tested with alternative PCR molecular test. Invalid: Please collect a new specimen for repeat patient testing if clinically indicated. Lab Interpretation (test code = 85174-4) [facility]16 21:15:00* Test Item Value Reference Range Interpretation Comme nts SARS-CoV-2 Rapid ID NOW (test code = 44192-3) Not Detected Not Detected BEVERLY (test code = BEVERLY) ID NOW COVID-19 As say is an isothermal nucleic acid amplification test intended for the qualitative detection of nucleic acid from SARS-CoV-2 viral RNA in nasopharyngeal (RECYCLING DIRECTOR) specimens. It is used under Emergency Use Authorization (EUA) by FDA. The limit of detection (LOD) of the assay is 125 Genome Equivalents/mL. A positive result is indicative of the presence of SARS-CoV-2 RNA. ?Clinical correlation with patient history and other diagnostic information is necessary to determine patient infection status. A negative (Not Detected) result does not preclude SARS-CoV-2 infection. In patients with clinical symptoms and other tests that are consistent with SARS-CoV-2 infection, negative results should be treated as presumptive negative and a new specimen should be tested with alternative PCR molecular test. Invalid: Please collect a new specimen for repeat patient testing if clinically indicated. Lab Interpretation (test code = 23560-6) [facility]16 21:15:00* Test Item Value Reference Range Interpretation Comme nts SARS-CoV-2 Rapid ID NOW (test code = 33378-9) Not Detected Not Detected BEVERLY (test code = BEVERLY) ID NOW COVID-19 As say is an isothermal nucleic acid amplification test intended for the qualitative detection of nucleic acid from SARS-CoV-2 viral RNA in nasopharyngeal (RECYCLING DIRECTOR) specimens. It is used under Emergency Use Authorization (EUA) by FDA. The limit of detection (LOD) of the assay is 125 Genome Equivalents/mL. A positive result is indicative of the presence of SARS-CoV-2 RNA. ?Clinical correlation with patient history and other diagnostic information is necessary to determine patient infection status. A negative (Not Detected) result does not preclude SARS-CoV-2 infection. In patients with clinical symptoms and other tests that are consistent with SARS-CoV-2 infection, negative results should be treated as presumptive negative and a new specimen should be tested with alternative PCR molecular test. Invalid: Please collect a new specimen for repeat patient testing if clinically indicated. Lab Interpretation (test code = 48432-1) [facility]2019-[facility]-16 21:15:00* Test Item Value Reference Range Interpretation Comme nts SARS-CoV-2 Rapid ID NOW (test code = 76706-9) Not Detected Not Detected BEVERLY (test code = BEVERLY) ID NOW COVID-19 As say is an isothermal nucleic acid amplification test intended for the qualitative detection of nucleic acid from SARS-CoV-2 viral RNA in nasopharyngeal (RECYCLING DIRECTOR) specimens. It is used under Emergency Use Authorization (EUA) by FDA. The limit of detection (LOD) of the assay is 125 Genome Equivalents/mL. A positive result is indicative of the presence of SARS-CoV-2 RNA. ?Clinical correlation with patient history and other diagnostic information is necessary to determine patient infection status. A negative (Not Detected) result does not preclude SARS-CoV-2 infection. In patients with clinical symptoms and other tests that are consistent with SARS-CoV-2 infection, negative results should be treated as presumptive negative and a new specimen should be tested with alternative PCR molecular test. Invalid: Please collect a new specimen for repeat patient testing if clinically indicated. Lab Interpretation (test code = 38014-2) [facility]16 21:15:00* Test Item Value Reference Range Interpretation Comme nts SARS-CoV-2 Rapid ID NOW (test code = 56865-5) Not Detected Not Detected BEVERLY (test code = BEVERLY) ID NOW COVID-19 As say is an isothermal nucleic acid amplification test intended for the qualitative detection of nucleic acid from SARS-CoV-2 viral RNA in nasopharyngeal (RECYCLING DIRECTOR) specimens. It is used under Emergency Use Authorization (EUA) by FDA. The limit of detection (LOD) of the assay is 125 Genome Equivalents/mL. A positive result is indicative of the presence of SARS-CoV-2 RNA. ?Clinical correlation with patient history and other diagnostic information is necessary to determine patient infection status. A negative (Not Detected) result does not preclude SARS-CoV-2 infection. In patients with clinical symptoms and other tests that are consistent with SARS-CoV-2 infection, negative results should be treated as presumptive negative and a new specimen should be tested with alternative PCR molecular test. Invalid: Please collect a new specimen for repeat patient testing if clinically indicated. Lab Interpretation (test code = 06502-2) [facility]2019-[facility]-16 21:15:00* Test Item Value Reference Range Interpretation Comme nts SARS-CoV-2 Rapid ID NOW (test code = 50352-8) Not Detected Not Detected BEVERLY (test code = BEVERLY) ID NOW COVID-19 As say is an isothermal nucleic acid amplification test intended for the qualitative detection of nucleic acid from SARS-CoV-2 viral RNA in nasopharyngeal (RECYCLING DIRECTOR) specimens. It is used under Emergency Use Authorization (EUA) by FDA. The limit of detection (LOD) of the assay is 125 Genome Equivalents/mL. A positive result is indicative of the presence of SARS-CoV-2 RNA. ?Clinical correlation with patient history and other diagnostic information is necessary to determine patient infection status. A negative (Not Detected) result does not preclude SARS-CoV-2 infection. In patients with clinical symptoms and other tests that are consistent with SARS-CoV-2 infection, negative results should be treated as presumptive negative and a new specimen should be tested with alternative PCR molecular test. Invalid: Please collect a new specimen for repeat patient testing if clinically indicated. Lab Interpretation (test code = 10117-2) [facility] (ID NOW RAPID TESTING)2019-12-16 21:15:00* Test Item Value Reference Range Interpretation Comme nts SARS-CoV-2 Rapid ID NOW (test code = 06523-7) Not Detected Not Detected BEVERLY (test code = BEVERLY) ID NOW COVID-19 As say is an isothermal nucleic acid amplification test intended for the qualitative detection of nucleic acid from SARS-CoV-2 viral RNA in nasopharyngeal (RECYCLING DIRECTOR) specimens. It is used under Emergency Use Authorization (EUA) by FDA. The limit of detection (LOD) of the assay is 125 Genome Equivalents/mL. A positive result is indicative of the presence of SARS-CoV-2 RNA. ?Clinical correlation with patient history and other diagnostic information is necessary to determine patient infection status. A negative (Not Detected) result does not preclude SARS-CoV-2 infection. In patients with clinical symptoms and other tests that are consistent with SARS-CoV-2 infection, negative results should be treated as presumptive negative and a new specimen should be tested with alternative PCR molecular test. Invalid: Please collect a new specimen for repeat patient testing if clinically indicated. Lab Interpretation (test code = 13725-5) [facility]2019-12-16 21:15:00* Test Item Value Reference Range Interpretation Comme nts SARS-CoV-2 Rapid ID NOW (test code = 60619-3) Not Detected Not Detected BEVERLY (test code = BEVERLY) ID NOW COVID-19 As say is an isothermal nucleic acid amplification test intended for the qualitative detection of nucleic acid from SARS-CoV-2 viral RNA in nasopharyngeal (RECYCLING DIRECTOR) specimens. It is used under Emergency Use Authorization (EUA) by FDA. The limit of detection (LOD) of the assay is 125 Genome Equivalents/mL. A positive result is indicative of the presence of SARS-CoV-2 RNA. ?Clinical correlation with patient history and other diagnostic information is necessary to determine patient infection status. A negative (Not Detected) result does not preclude SARS-CoV-2 infection. In patients with clinical symptoms and other tests that are consistent with SARS-CoV-2 infection, negative results should be treated as presumptive negative and a new specimen should be tested with alternative PCR molecular test. Invalid: Please collect a new specimen for repeat patient testing if clinically indicated. Lab Interpretation (test code = 77822-4) [facility] CULTURE [id number] 11:02:00* Test Item Value Reference Range Interpretation Comme nts Blood Culture-Aerobic (test code = 47786-2) No organisms isolated No growth Previous preliminary verified result was Culture In Progress on 10/28/2019 at 0901 CDTPrevious preliminary verified result was No growth at 24 hours on 10/29/2019 at 0602 CDTPrevious preliminary verified result was No growth at 48 hours on 10/30/2019 at 0601 CDTPrevious preliminary verified result was No growth at 72 hours on 10/31/2019 at 0601 CDT Blood Culture-Anaerobic (test code = 92058-3) No organisms isolated No growth Previous preliminary verified result was Culture In Progress on 10/28/2019 at 0901 CDTPrevious preliminary verified result was No growth at 24 hours on 10/29/2019 at 0602 CDTPrevious preliminary verified result was No growth at 48 hours on 10/30/2019 at 0601 CDTPrevious preliminary verified result was No growth at 72 hours on 10/31/2019 at 0601 CDT Lab Interpretation (test code = 41489-7) Normal [facility] CULTURE [id number] 11:02:00* Test Item Value Reference Range Interpretation Comme nts Blood Culture-Aerobic (test code = 23050-9) No organisms isolated No growth Previous preliminary verified result was Culture In Progress on 10/28/2019 at 0901 CDTPrevious preliminary verified result was No growth at 24 hours on 10/29/2019 at [facility] CDTPrevious preliminary verified result was No growth at 48 hours on 10/30/2019 at [facility] CDTPrevious preliminary verified result was No growth at 72 hours on 10/31/[address] [place] [address] Blood Culture-Anaerobic (test code = 92091-6) No organisms isolated No growth Previous preliminary verified result was Culture In Progress on 10/28/[address] [place], [place] [address]TPrevious preliminary verified result was No growth at 24 hours on 10/29/2019 at [facility] CDTPrevious preliminary verified result was No growth at 48 hours on 10/30/[address] [place], [place] [address]TPrevious preliminary verified result was No growth at 72 hours on 10/31/[address] [place] [address] Lab Interpretation (test code = 61520-6) [facility] CULTURE [id number] 11:02:00* Test Item Value Reference Range Interpretation Comme nts Blood Culture-Aerobic (test code = 76137-6) No organisms isolated No growth Previous preliminary verified result was Culture In Progress on 10/28/[address] [place], [place] [address]TPrevious preliminary verified result was No growth at 24 hours on 10/29/2019 at [facility] CDTPrevious preliminary verified result was No growth at 48 hours on 10/30/[address] [place], [place] [address]TPrevious preliminary verified result was No growth at 72 hours on 10/31/[address] [place] [address] Blood Culture-Anaerobic (test code = 41901-0) No organisms isolated No growth Previous preliminary verified result was Culture In Progress on 10/28/[address] [place], [place] [address]Previous preliminary verified result was No growth at 24 hours on 10/29/2019 at [facility] CDTPrevious preliminary verified result was No growth at 48 hours on 10/30/2019 at [facility] CDTPrevious preliminary verified result was No growth at 72 hours on 10/31/[address] [place] [address] Lab Interpretation (test code = 70844-6) [facility] CULTURE [id number] 11:02:00* Test Item Value Reference Range Interpretation Comme nts Blood Culture-Aerobic (test code = 84397-6) No organisms isolated No growth Previous preliminary verified result was Culture In Progress on 10/28/2019 at [facility] CDTPrevious preliminary verified result was No growth at 24 hours on 10/29/2019 at [facility] CDTPrevious preliminary verified result was No growth at 48 hours on 10/30/2019 at [facility] CDTPrevious preliminary verified result was No growth at 72 hours on 10/31/[address] [place] [address] Blood Culture-Anaerobic (test code = 07551-8) No organisms isolated No growth Previous preliminary verified result was Culture In Progress on 10/28/[address] [place], [place] [address]Previous preliminary verified result was No growth at 24 hours on 10/29/2019 at [facility] CDTPrevious preliminary verified result was No growth at 48 hours on 10/30/2019 at [facility] CDTPrevious preliminary verified result was No growth at 72 hours on 10/31/[address] [place] [address] Lab Interpretation (test code = 61780-6) [facility] CULTURE [id number] 11:02:00* Test Item Value Reference Range Interpretation Comme nts Blood Culture-Aerobic (test code = 29811-2) No organisms isolated No growth Previous preliminary verified result was Culture In Progress on 10/28/2019 at [facility] CDTPrevious preliminary verified result was No growth at 24 hours on 10/29/2019 at [facility] CDTPrevious preliminary verified result was No growth at 48 hours on 10/30/2019 at [facility] CDTPrevious preliminary verified result was No growth at 72 hours on 10/31/[address] [place] [address] Blood Culture-Anaerobic (test code = 17913-4) No organisms isolated No growth Previous preliminary verified result was Culture In Progress on 10/28/[address] [place], [place] [address]Previous preliminary verified result was No growth at 24 hours on 10/29/2019 at [facility] CDTPrevious preliminary verified result was No growth at 48 hours on 10/30/2019 at [facility] CDTPrevious preliminary verified result was No growth at 72 hours on 10/31/[address] [place] [address] Lab Interpretation (test code = 36305-8) [facility] CULTURE [id number] 11:02:00* Test Item Value Reference Range Interpretation Comme nts Blood Culture-Aerobic (test code = 82309-9) No organisms isolated No growth Previous preliminary verified result was Culture In Progress on 10/28/2019 at [facility] CDTPrevious preliminary verified result was No growth at 24 hours on 10/29/[address] [place], [place] [address]Previous preliminary verified result was No growth at 48 hours on 10/30/2019 at [facility] CDTPrevious preliminary verified result was No growth at 72 hours on 10/31/[address] [place] [address] Blood Culture-Anaerobic (test code = 74918-9) No organisms isolated No growth Previous preliminary verified result was Culture In Progress on 10/28/[address] [place], [place] [address]TPrevious preliminary verified result was No growth at 24 hours on 10/29/2019 at [facility] CDTPrevious preliminary verified result was No growth at 48 hours on 10/30/2019 at [facility] CDTPrevious preliminary verified result was No growth at 72 hours on 10/31/[address] [place] [address] Lab Interpretation (test code = 46893-0) [facility] CULTURE [id number] 11:02:00* Test Item Value Reference Range Interpretation Comme nts Blood Culture-Aerobic (test code = 82722-6) No organisms isolated No growth Previous preliminary verified result was Culture In Progress on 10/28/2019 at [facility] CDTPrevious preliminary verified result was No growth at 24 hours on 10/29/2019 at [facility] CDTPrevious preliminary verified result was No growth at 48 hours on 10/30/2019 at [facility] CDTPrevious preliminary verified result was No growth at 72 hours on 10/31/[address] [place] [address] Blood Culture-Anaerobic (test code = 93997-1) No organisms isolated No growth Previous preliminary verified result was Culture In Progress on 10/28/[address] [place], [place] [address]Previous preliminary verified result was No growth at 24 hours on 10/29/2019 at [facility] CDTPrevious preliminary verified result was No growth at 48 hours on 10/30/2019 at [facility] CDTPrevious preliminary verified result was No growth at 72 hours on 10/31/[address] [place] [address] Lab Interpretation (test code = 17911-6) [facility] CULTURE [id number] 11:02:00* Test Item Value Reference Range Interpretation Comme nts Blood Culture-Aerobic (test code = 72429-7) No organisms isolated No growth Previous preliminary verified result was Culture In Progress on 10/28/2019 at [facility] CDTPrevious preliminary verified result was No growth at 24 hours on 10/29/2019 at 06 CDTPrevious preliminary verified result was No growth at 48 hours on 10/30/2019 at [facility] CDTPrevious preliminary verified result was No growth at 72 hours on 10/31/[address] [place] [address] Blood Culture-Anaerobic (test code = 30122-2) No organisms isolated No growth Previous preliminary verified result was Culture In Progress on 10/28/2019 at [facility] CDTPrevious preliminary verified result was No growth at 24 hours on 10/29/2019 at [facility] CDTPrevious preliminary verified result was No growth at 48 hours on 10/30/2019 at [facility] CDTPrevious preliminary verified result was No growth at 72 hours on 10/31/[address] [place] [address] Lab Interpretation (test code = 78647-1) [facility] CULTURE [id number] 11:02:00* Test Item Value Reference Range Interpretation Comme nts Blood Culture-Aerobic (test code = 28427-9) No organisms isolated No growth Previous preliminary verified result was Culture In Progress on 10/28/2019 at [facility] CDTPrevious preliminary verified result was No growth at 24 hours on 10/29/2019 at [facility] CDTPrevious preliminary verified result was No growth at 48 hours on 10/30/2019 at [facility] CDTPrevious preliminary verified result was No growth at 72 hours on 10/31/[address] [place] [address] Blood Culture-Anaerobic (test code = 20887-6) No organisms isolated No growth Previous preliminary verified result was Culture In Progress on 10/28/2019 at [facility] CDTPrevious preliminary verified result was No growth at 24 hours on 10/29/2019 at [facility] CDTPrevious preliminary verified result was No growth at 48 hours on 10/30/2019 at [facility] CDTPrevious preliminary verified result was No growth at 72 hours on 10/31/[address] [place], [place] [address] Lab Interpretation (test code = 98542-9) [facility] CULTURE [id number] 11:02:00* Test Item Value Reference Range Interpretation Comme nts Blood Culture-Aerobic (test code = 96747-6) No organisms isolated No growth Previous preliminary verified result was Culture In Progress on 10/28/2019 at [facility] CDTPrevious preliminary verified result was No growth at 24 hours on 10/29/2019 at 0602 CDTPrevious preliminary verified result was No growth at 48 hours on 10/30/2019 at [facility] CDTPrevious preliminary verified result was No growth at 72 hours on 10/31/[address] [place], [place] [address] Blood Culture-Anaerobic (test code = 12949-9) No organisms isolated No growth Previous preliminary verified result was Culture In Progress on 10/28/2019 at [facility] CDTPrevious preliminary verified result was No growth at 24 hours on 10/29/2019 at [facility] CDTPrevious preliminary verified result was No growth at 48 hours on 10/30/2019 at [facility] CDTPrevious preliminary verified result was No growth at 72 hours on 10/31/[address] [place] [address] Lab Interpretation (test code = 94677-3) [facility] CULTURE [id number] 11:02:00* Test Item Value Reference Range Interpretation Comme nts Blood Culture-Aerobic (test code = 96880-2) No organisms isolated No growth Previous preliminary verified result was Culture In Progress on 10/28/2019 at [facility] CDTPrevious preliminary verified result was No growth at 24 hours on 10/29/2019 at [facility] CDTPrevious preliminary verified result was No growth at 48 hours on 10/30/2019 at [facility] CDTPrevious preliminary verified result was No growth at 72 hours on 10/31/[address] [place] [address] Blood Culture-Anaerobic (test code = 36609-1) No organisms isolated No growth Previous preliminary verified result was Culture In Progress on 10/28/2019 at [facility] CDTPrevious preliminary verified result was No growth at 24 hours on 10/29/2019 at [facility] CDTPrevious preliminary verified result was No growth at 48 hours on 10/30/2019 at [facility] CDTPrevious preliminary verified result was No growth at 72 hours on 10/31/2019 at [facility] CDT Lab Interpretation (test code = 56733-3) [facility] CULTURE [id number] 11:02:00* Test Item Value Reference Range Interpretation Comme nts Blood Culture-Aerobic (test code = 37957-8) No organisms isolated No growth Previous preliminary verified result was Culture In Progress on 10/28/2019 at [facility] CDTPrevious preliminary verified result was No growth at 24 hours on 10/29/2019 at [facility] CDTPrevious preliminary verified result was No growth at 48 hours on 10/30/2019 at [facility] CDTPrevious preliminary verified result was No growth at 72 hours on 10/31/[address] [place] [address] Blood Culture-Anaerobic (test code = 20771-8) No organisms isolated No growth Previous preliminary verified result was Culture In Progress on 10/28/2019 at [facility] CDTPrevious preliminary verified result was No growth at 24 hours on 10/29/2019 at [facility] CDTPrevious preliminary verified result was No growth at 48 hours on 10/30/2019 at [facility] CDTPrevious preliminary verified result was No growth at 72 hours on 10/31/[address] [place] [address] Lab Interpretation (test code = 35888-3) [facility] CULTURE [id number] 11:02:00* Test Item Value Reference Range Interpretation Comme nts Blood Culture-Aerobic (test code = 18980-3) No organisms isolated No growth Previous preliminary verified result was Culture In Progress on 10/28/[address] [place], [place] [address]Previous preliminary verified result was No growth at 24 hours on 10/29/2019 at [facility] CDTPrevious preliminary verified result was No growth at 48 hours on 10/30/2019 at [facility] CDTPrevious preliminary verified result was No growth at 72 hours on 10/31/[address] [place] [address] Blood Culture-Anaerobic (test code = 61121-8) No organisms isolated No growth Previous preliminary verified result was Culture In Progress on 10/28/2019 at [facility] CDTPrevious preliminary verified result was No growth at 24 hours on 10/29/2019 at [facility] CDTPrevious preliminary verified result was No growth at 48 hours on 10/30/2019 at [facility] CDTPrevious preliminary verified result was No growth at 72 hours on 10/31/[address] [place], [place] [address] Lab Interpretation (test code = 12241-5) [facility] CULTURE [id number] 11:02:00* Test Item Value Reference Range Interpretation Comme nts Blood Culture-Aerobic (test code = 45646-8) No organisms isolated No growth Previous preliminary verified result was Culture In Progress on 10/28/2019 at [facility] CDTPrevious preliminary verified result was No growth at 24 hours on 10/29/2019 at 0602 CDTPrevious preliminary verified result was No growth at 48 hours on 10/30/[address] [place], [place] [address]TPrevious preliminary verified result was No growth at 72 hours on 10/31/[address] [place] [address] Blood Culture-Anaerobic (test code = 25779-6) No organisms isolated No growth Previous preliminary verified result was Culture In Progress on 10/28/2019 at [facility] CDTPrevious preliminary verified result was No growth at 24 hours on 10/29/[address] [place], [place] [address]TPrevious preliminary verified result was No growth at 48 hours on 10/30/[address] [place], [place] [address]TPrevious preliminary verified result was No growth at 72 hours on 10/31/[address] [place] [address] Lab Interpretation (test code = 31665-9) [facility] CULTURE [id number] 11:02:00* Test Item Value Reference Range Interpretation Comme nts Blood Culture-Aerobic (test code = 99344-7) No organisms isolated No growth Previous preliminary verified result was Culture In Progress on 10/28/[address] [place], [place] [address]TPrevious preliminary verified result was No growth at 24 hours on 10/29/[address] [place], [place] [address]TPrevious preliminary verified result was No growth at 48 hours on 10/30/2019 at [facility] CDTPrevious preliminary verified result was No growth at 72 hours on 10/31/[address] [place] [address] Blood Culture-Anaerobic (test code = 63564-8) No organisms isolated No growth Previous preliminary verified result was Culture In Progress on 10/28/[address] [place], [place] [address]TPrevious preliminary verified result was No growth at 24 hours on 10/29/[address] [place], [place] [address]TPrevious preliminary verified result was No growth at 48 hours on 10/30/2019 at [facility] CDTPrevious preliminary verified result was No growth at 72 hours on 10/31/[address] [place], [place] [address]T Lab Interpretation (test code = 95938-4) [facility] CULTURE [id number] 11:02:00* Test Item Value Reference Range Interpretation Comme nts Blood Culture-Aerobic (test code = 98541-7) No organisms isolated No growth Previous preliminary verified result was Culture In Progress on 10/28/2019 at [facility] CDTPrevious preliminary verified result was No growth at 24 hours on 10/29/2019 at [facility] CDTPrevious preliminary verified result was No growth at 48 hours on 10/30/[address] [place], [place] [address]TPrevious preliminary verified result was No growth at 72 hours on 10/31/[address] [place] [address] Blood Culture-Anaerobic (test code = 68623-6) No organisms isolated No growth Previous preliminary verified result was Culture In Progress on 10/28/2019 at [facility] CDTPrevious preliminary verified result was No growth at 24 hours on 10/29/[address] [place], [place] [address]TPrevious preliminary verified result was No growth at 48 hours on 10/30/2019 at [facility] CDTPrevious preliminary verified result was No growth at 72 hours on 10/31/[address] [place] [address] Lab Interpretation (test code = 22208-0) [facility] CULTURE [id number] 11:02:00* Test Item Value Reference Range Interpretation Comme nts Blood Culture-Aerobic (test code = 47969-6) No organisms isolated No growth Previous preliminary verified result was Culture In Progress on 10/28/[address] [place], [place] [address]Previous preliminary verified result was No growth at 24 hours on 10/29/2019 at [facility] CDTPrevious preliminary verified result was No growth at 48 hours on 10/30/2019 at [facility] CDTPrevious preliminary verified result was No growth at 72 hours on 10/31/[address] [place] [address] Blood Culture-Anaerobic (test code = 54777-5) No organisms isolated No growth Previous preliminary verified result was Culture In Progress on 10/28/2019 at [facility] CDTPrevious preliminary verified result was No growth at 24 hours on 10/29/[address] [place], [place] [address]TPrevious preliminary verified result was No growth at 48 hours on 10/30/2019 at [facility] CDTPrevious preliminary verified result was No growth at 72 hours on 10/31/[address] [place], [place] [address]T Lab Interpretation (test code = 62306-0) [facility] CULTURE [id number] 11:02:00* Test Item Value Reference Range Interpretation Comme nts Blood Culture-Aerobic (test code = 33237-4) No organisms isolated No growth Previous preliminary verified result was Culture In Progress on 10/28/2019 at [facility] CDTPrevious preliminary verified result was No growth at 24 hours on 10/29/2019 at [facility] CDTPrevious preliminary verified result was No growth at 48 hours on 10/30/2019 at [facility] CDTPrevious preliminary verified result was No growth at 72 hours on 10/31/[address] [place] [address] Blood Culture-Anaerobic (test code = 73258-9) No organisms isolated No growth Previous preliminary verified result was Culture In Progress on 10/28/2019 at [facility] CDTPrevious preliminary verified result was No growth at 24 hours on 10/29/2019 at [facility] CDTPrevious preliminary verified result was No growth at 48 hours on 10/30/2019 at [facility] CDTPrevious preliminary verified result was No growth at 72 hours on 10/31/[address] [place] [address] Lab Interpretation (test code = 96201-2) [facility] CULTURE [id number] 11:02:00* Test Item Value Reference Range Interpretation Comme nts Blood Culture-Aerobic (test code = 54217-3) No organisms isolated No growth Previous preliminary verified result was Culture In Progress on 10/28/[address] [place], [place] [address]TPrevious preliminary verified result was No growth at 24 hours on 10/29/2019 at [facility] CDTPrevious preliminary verified result was No growth at 48 hours on 10/30/2019 at [facility] CDTPrevious preliminary verified result was No growth at 72 hours on 10/31/[address] [place] [address] Blood Culture-Anaerobic (test code = 29514-1) No organisms isolated No growth Previous preliminary verified result was Culture In Progress on 10/28/2019 at [facility] CDTPrevious preliminary verified result was No growth at 24 hours on 10/29/2019 at [facility] CDTPrevious preliminary verified result was No growth at 48 hours on 10/30/2019 at [facility] CDTPrevious preliminary verified result was No growth at 72 hours on 10/31/[address] [place], [place] [address]T Lab Interpretation (test code = 96412-6) [facility] CULTURE [id number] 11:02:00* Test Item Value Reference Range Interpretation Comme nts Blood Culture-Aerobic (test code = 60162-6) No organisms isolated No growth Previous preliminary verified result was Culture In Progress on 10/28/2019 at [facility] CDTPrevious preliminary verified result was No growth at 24 hours on 10/29/2019 at [facility] CDTPrevious preliminary verified result was No growth at 48 hours on 10/30/2019 at [facility] CDTPrevious preliminary verified result was No growth at 72 hours on 10/31/[address] [place], [place] [address]T Blood Culture-Anaerobic (test code = 11840-4) No organisms isolated No growth Previous preliminary verified result was Culture In Progress on 10/28/2019 at [facility] CDTPrevious preliminary verified result was No growth at 24 hours on 10/29/2019 at [facility] CDTPrevious preliminary verified result was No growth at 48 hours on 10/30/2019 at [facility] CDTPrevious preliminary verified result was No growth at 72 hours on 10/31/[address] [place], [place] [address]T Lab Interpretation (test code = 05109-6) [facility] CULTURE [id number] 11:02:00* Test Item Value Reference Range Interpretation Comme nts Blood Culture-Aerobic (test code = 62561-5) No organisms isolated No growth Previous preliminary verified result was Culture In Progress on 10/28/2019 at [facility] CDTPrevious preliminary verified result was No growth at 24 hours on 10/29/2019 at [facility] CDTPrevious preliminary verified result was No growth at 48 hours on 10/30/2019 at [facility] CDTPrevious preliminary verified result was No growth at 72 hours on 10/31/[address] [place] [address] Blood Culture-Anaerobic (test code = 22335-7) No organisms isolated No growth Previous preliminary verified result was Culture In Progress on 10/28/2019 at [facility] CDTPrevious preliminary verified result was No growth at 24 hours on 10/29/2019 at [facility] CDTPrevious preliminary verified result was No growth at 48 hours on 10/30/2019 at [facility] CDTPrevious preliminary verified result was No growth at 72 hours on 10/31/2019 at [facility] CDT Lab Interpretation (test code = 46813-6) [facility] CULTURE [id number] 11:02:00* Test Item Value Reference Range Interpretation Comme nts Blood Culture-Aerobic (test code = 35408-1) No organisms isolated No growth Previous preliminary verified result was Culture In Progress on 10/28/2019 at [facility] CDTPrevious preliminary verified result was No growth at 24 hours on 10/29/2019 at [facility] CDTPrevious preliminary verified result was No growth at 48 hours on 10/30/2019 at [facility] CDTPrevious preliminary verified result was No growth at 72 hours on 10/31/2019 at [facility] CDT Blood Culture-Anaerobic (test code = 56246-9) No organisms isolated No growth Previous preliminary verified result was Culture In Progress on 10/28/2019 at 09 CDTPrevious preliminary verified result was No growth at 24 hours on 10/29/2019 at [facility] CDTPrevious preliminary verified result was No growth at 48 hours on 10/30/2019 at [facility] CDTPrevious preliminary verified result was No growth at 72 hours on 10/31/2019 at [facility] CDT Lab Interpretation (test code = 41222-3) Normal [facility] [id number] 19:20:00* Test Item Value Reference Range Interpretation Comme nts URINE CULTURE (test code = 630-4) No aerobic growth (< 1000 CFU/mL) [facility] [id number] 19:20:00* Test Item Value Reference Range Interpretation Comme nts URINE CULTURE (test code = 630-4) No aerobic growth (< 1000 CFU/mL) [facility] [id number] 19:20:00* Test Item Value Reference Range Interpretation Comme nts URINE CULTURE (test code = 630-4) No aerobic growth (< 1000 CFU/mL) [facility] [id number] 19:20:00* Test Item Value Reference Range Interpretation Comme nts URINE CULTURE (test code = 630-4) No aerobic growth (< 1000 CFU/mL) [facility] [id number] 19:20:00* Test Item Value Reference Range Interpretation Comme nts URINE CULTURE (test code = 630-4) No aerobic growth (< 1000 CFU/mL) [facility] [id number] 19:20:00* Test Item Value Reference Range Interpretation Comme nts URINE CULTURE (test code = 630-4) No aerobic growth (< 1000 CFU/mL) [facility] [id number] 19:20:00* Test Item Value Reference Range Interpretation Comme nts URINE CULTURE (test code = 630-4) No aerobic growth (< 1000 CFU/mL) [facility] [id number] 19:20:00* Test Item Value Reference Range Interpretation Comme nts URINE CULTURE (test code = 630-4) No aerobic growth (< 1000 CFU/mL) [facility] [id number] 19:20:00* Test Item Value Reference Range Interpretation Comme nts URINE CULTURE (test code = 630-4) No aerobic growth (< 1000 CFU/mL) [facility] [id number] 19:20:00* Test Item Value Reference Range Interpretation Comme nts URINE CULTURE (test code = 630-4) No aerobic growth (< 1000 CFU/mL) [facility] [id number] 19:20:00* Test Item Value Reference Range Interpretation Comme nts URINE CULTURE (test code = 630-4) No aerobic growth (< 1000 CFU/mL) [facility] [id number] 19:20:00* Test Item Value Reference Range Interpretation Comme nts URINE CULTURE (test code = 630-4) No aerobic growth (< 1000 CFU/mL) [facility] [id number] 19:20:00* Test Item Value Reference Range Interpretation Comme nts URINE CULTURE (test code = 630-4) No aerobic growth (< 1000 CFU/mL) [facility] [id number] 19:20:00* Test Item Value Reference Range Interpretation Comme nts URINE CULTURE (test code = 630-4) No aerobic growth (< 1000 CFU/mL) [facility] [id number] 19:20:00* Test Item Value Reference Range Interpretation Comme nts URINE CULTURE (test code = 630-4) No aerobic growth (< 1000 CFU/mL) [facility] [id number] 19:20:00* Test Item Value Reference Range Interpretation Comme nts URINE CULTURE (test code = 630-4) No aerobic growth (< 1000 CFU/mL) [facility] [id number] 19:20:00* Test Item Value Reference Range Interpretation Comme nts URINE CULTURE (test code = 630-4) No aerobic growth (< 1000 CFU/mL) [facility] [id number] 19:20:00* Test Item Value Reference Range Interpretation Comme nts URINE CULTURE (test code = 630-4) No aerobic growth (< 1000 CFU/mL) [facility] [id number] 19:20:00* Test Item Value Reference Range Interpretation Comme nts URINE CULTURE (test code = 630-4) No aerobic growth (< 1000 CFU/mL) [facility] [id number] 19:20:00* Test Item Value Reference Range Interpretation Comme nts URINE CULTURE (test code = 630-4) No aerobic growth (< 1000 CFU/mL) [facility] [id number] 19:20:00* Test Item Value Reference Range Interpretation Comme nts URINE CULTURE (test code = 630-4) No aerobic growth (< 1000 CFU/mL) [facility] [id number] 19:20:00* Test Item Value Reference Range Interpretation Comme nts URINE CULTURE (test code = 630-4) No aerobic growth (< 1000 CFU/mL) [facility] [id number] 19:20:00* Test Item Value Reference Range Interpretation Comme nts URINE CULTURE (test code = 630-4) No aerobic growth (< 1000 CFU/mL) [facility] [id number] 19:20:00* Test Item Value Reference Range Interpretation Comme nts URINE CULTURE (test code = 630-4) No aerobic growth (< 1000 CFU/mL) [facility] [id number] 19:20:00* Test Item Value Reference Range Interpretation Comme nts URINE CULTURE (test code = 630-4) No aerobic growth (< 1000 CFU/mL) [facility] [id number] 10:18:00* Test Item Value Reference Range Interpretation Comme nts LDH (test code = 2616965576) 456 U/L 300-600 Lab Interpretation (test cod e = 51906-8) [facility] [id number] 10:18:00* Test Item Value Reference Range Interpretation Comme nts LDH (test code = 2433402024) 456 U/L 300-600 Lab Interpretation (test cod e = 61309-1) [facility] [id number] 10:18:00* Test Item Value Reference Range Interpretation Comme nts LDH (test code = 4409552972) 456 U/L 300-600 Lab Interpretation (test cod e = 27609-5) Normal [facility] [id number] 10:18:00* Test Item Value Reference Range Interpretation Comme nts LDH (test code = 3964430108) 456 U/L 300-600 Lab Interpretation (test cod e = 12264-2) Normal [facility] [id number] 10:18:00* Test Item Value Reference Range Interpretation Comme nts LDH (test code = 5164611247) 456 U/L 300-600 Lab Interpretation (test cod e = 79415-9) Normal [facility] [id number] 10:18:00* Test Item Value Reference Range Interpretation Comme nts LDH (test code = 6825575602) 456 U/L 300-600 Lab Interpretation (test cod e = 96132-5) [facility]2020-07-17 10:18:00* Test Item Value Reference Range Interpretation Comme nts LDH (test code = 8975622082) 456 U/L 300-600 Lab Interpretation (test cod e = 95237-5) Normal [facility] [id number] 10:18:00* Test Item Value Reference Range Interpretation Comme nts LDH (test code = 8843706078) 456 U/L 300-600 Lab Interpretation (test cod e = 62620-3) Normal [facility] [id number] 10:18:00* Test Item Value Reference Range Interpretation Comme nts LDH (test code = 5358161973) 456 U/L 300-600 Lab Interpretation (test cod e = 58135-3) Normal [facility] [id number] 10:18:00* Test Item Value Reference Range Interpretation Comme nts LDH (test code = 8066209247) 456 U/L 300-600 Lab Interpretation (test cod e = 31090-1) [facility] [id number] 10:18:00* Test Item Value Reference Range Interpretation Comme nts LDH (test code = 5816494029) 456 U/L 300-600 Lab Interpretation (test cod e = 19918-9) [facility]2020-07-17 10:18:00* Test Item Value Reference Range Interpretation Comme nts LDH (test code = 4447148136) 456 U/L 300-600 Lab Interpretation (test cod e = 81481-0) Normal [facility]2020-07-17 10:18:00* Test Item Value Reference Range Interpretation Comme nts LDH (test code = 4754199967) 456 U/L 300-600 Lab Interpretation (test cod e = 43773-9) [facility]2020-07-17 10:18:00* Test Item Value Reference Range Interpretation Comme nts LDH (test code = 0549813224) 456 U/L 300-600 Lab Interpretation (test cod e = 09191-4) [facility]2020-07-17 10:18:00* Test Item Value Reference Range Interpretation Comme nts LDH (test code = 8196473288) 456 U/L 300-600 Lab Interpretation (test cod e = 67440-5) [facility]2020-07-17 10:18:00* Test Item Value Reference Range Interpretation Comme nts LDH (test code = 4265287465) 456 U/L 300-600 Lab Interpretation (test cod e = 15489-3) [facility]2020-07-17 10:18:00* Test Item Value Reference Range Interpretation Comme nts LDH (test code = 0939511585) 456 U/L 300-600 Lab Interpretation (test cod e = 41927-0) [facility]2020-07-17 10:18:00* Test Item Value Reference Range Interpretation Comme nts LDH (test code = 5048427297) 456 U/L 300-600 Lab Interpretation (test cod e = 53744-9) [facility]2020-07-17 10:18:00* Test Item Value Reference Range Interpretation Comme nts LDH (test code = 3049554654) 456 U/L 300-600 Lab Interpretation (test cod e = 53296-2) [facility]2020-07-17 10:18:00* Test Item Value Reference Range Interpretation Comme nts LDH (test code = 6630058467) 456 U/L 300-600 Lab Interpretation (test cod e = 91385-6) [facility] [id number] 10:18:00* Test Item Value Reference Range Interpretation Comme nts LDH (test code = 2515055605) 456 U/L 300-600 Lab Interpretation (test cod e = 08240-1) Normal [facility] [id number] 10:18:00* Test Item Value Reference Range Interpretation Comme nts LDH (test code = 3483325900) 456 U/L 300-600 Lab Interpretation (test cod e = 63127-8) Normal [facility] [id number] 10:18:00* Test Item Value Reference Range Interpretation Comme nts LDH (test code = 6806103654) 456 U/L 300-600 Lab Interpretation (test cod e = 31138-2) [facility] [id number] 10:18:00* Test Item Value Reference Range Interpretation Comme nts LDH (test code = 0316620850) 456 U/L 300-600 Lab Interpretation (test cod e = 90345-6) Normal [facility] [id number] 10:18:00* Test Item Value Reference Range Interpretation Comme nts LDH (test code = 4265001486) 456 U/L 300-600 Lab Interpretation (test cod e = 95532-2) [facility] [id number] 09:54:00* Test Item Value Reference Range Interpretation Comme nts PHOSPHORUS (test code = 9704081059) 4.0 mg/dL 2.5-5 Lab Interpretation (test cod e = 75439-9) Normal [facility] [id number] 09:54:00* Test Item Value Reference Range Interpretation Comme nts MAGNESIUM (test code = 6686502742) 1.9 mg/dL 1.7-2.4 Lab Interpretation (test cod e = 00759-3) Normal [facility] Metabolic Panel (Na, K, Cl, CO2, Glucose, BUN, Creatinine, Ca)2019-10-28 09:54:00* Test Item Value Reference Range Interpretation Comme nts NA (test code = 1265844424) 141 mmol/L 135-145 K (test code = 9584509693) 4.0 mmol/L 3.5-5 CL (test code = 7006050886) 107 mmol/L 98-108 CO2 TOTAL (test code = 4646987199) 23 mmol/L 23-31 AGAP (test code = 7912307517) 2-16 BUN (test code = 9218551104) 7 mg/dL 7-23 GLUCOSE (test code = 1675501590) 99 mg/dL 70-110 CREATININE (test code = 9977356906) 0.61 mg/dL 0.6-1.25 CALCIUM (test code = 5157236317) 9.4 mg/dL 8.6-10.6 eGFR Calculation (Non-) (test code = 6087626666) mL/min/1.73m2 eGFR Calculation () (test code = 9622282938) mL/min/1.73m2 BEVERLY (test code = BEVERLY) Association of Glomerular Filtration Rate (GFR) and Staging of Kidney Disease* + -+ + ---+| GFR (mL/min/1.73 m2) ?| With Kidney Damage ?| ?Without Kidney Damage+ -------+ ------+ ---------+| ?>90 ?| ?Stage one ?| ? Normal ?+ --+ -+ ----+| ?60-89 ?| ?Stage two ?| ? Decreased GFR ? + -+ + ---+| ?30-59 ?| ?Stage three ?| ? Stage three ? + -+ + ---+| ?15-29 ?| ?Stage four ? | ? Stage four ?+ --+ -+ ----+| ?<15 (or dialysis) ? ?| ?Stage five ? | ? Stage five ?+ --+ -+ ----+ *Each stage assumes the associated GFR level has been in effect for at least three months. ?Stages 1 to 5, with or without kidney disease, indicate chronic kidney disease. Notes: Determination of stages one and two (with eGFR >59mL/min/1.73 m2) requires estimation of kidney damage for at least three months as defined by structural or functional abnormalities of the kidney, manifested by either:Pathological abnormalities or Markers of kidney damage (including abnormalities in the composition of the blood or urine or abnormalities in imaging tests). [facility] Metabolic Panel (Na, K, Cl, CO2, Glucose, BUN, Creatinine, Ca)2019-10-28 09:54:00* Test Item Value Reference Range Interpretation Comme nts NA (test code = 8050105845) 141 mmol/L 135-145 K (test code = 1392537551) 4.0 mmol/L 3.5-5 CL (test code = 2053925597) 107 mmol/L 98-108 CO2 TOTAL (test code = 1044880920) 23 mmol/L 23-31 AGAP (test code = 0755733034) 2-16 BUN (test code = 4147688915) 7 mg/dL 7-23 GLUCOSE (test code = 0406615625) 99 mg/dL 70-110 CREATININE (test code = 3456528605) 0.61 mg/dL 0.6-1.25 CALCIUM (test code = 0905197976) 9.4 mg/dL 8.6-10.6 eGFR Calculation (Non-) (test code = 5832158234) mL/min/1.73m2 eGFR Calculation () (test code = 2267181158) mL/min/1.73m2 BEVERLY (test code = BEVERLY) Association of Glomerular Filtration Rate (GFR) and Staging of Kidney Disease* + -+ + ---+| GFR (mL/min/1.73 m2) ?| With Kidney Damage ?| ?Without Kidney Damage+ -------+ ------+ ---------+| ?>90 ?| ?Stage one ?| ? Normal ?+ --+ -+ ----+| ?60-89 ?| ?Stage two ?| ? Decreased GFR ? + -+ + ---+| ?30-59 ?| ?Stage three ?| ? Stage three ? + -+ + ---+| ?15-29 ?| ?Stage four ? | ? Stage four ?+ --+ -+ ----+| ?<15 (or dialysis) ? ?| ?Stage five ? | ? Stage five ?+ --+ -+ ----+ *Each stage assumes the associated GFR level has been in effect for at least three months. ?Stages 1 to 5, with or without kidney disease, indicate chronic kidney disease. Notes: Determination of stages one and two (with eGFR >59mL/min/1.73 m2) requires estimation of kidney damage for at least three months as defined by structural or functional abnormalities of the kidney, manifested by either:Pathological abnormalities or Markers of kidney damage (including abnormalities in the composition of the blood or urine or abnormalities in imaging tests). [facility] [id number] 09:54:00* Test Item Value Reference Range Interpretation Comme nts MAGNESIUM (test code = 4978764531) 1.9 mg/dL 1.7-2.4 Lab Interpretation (test cod e = 00475-1) Normal [facility] [id number] 09:54:00* Test Item Value Reference Range Interpretation Comme nts PHOSPHORUS (test code = 4474217940) 4.0 mg/dL 2.5-5 Lab Interpretation (test cod e = 25246-6) Normal [facility] [id number] 09:54:00* Test Item Value Reference Range Interpretation Comme nts PHOSPHORUS (test code = 3432072023) 4.0 mg/dL 2.5-5 Lab Interpretation (test cod e = 65364-7) Normal [facility] [id number] 09:54:00* Test Item Value Reference Range Interpretation Comme nts MAGNESIUM (test code = 3374909577) 1.9 mg/dL 1.7-2.4 Lab Interpretation (test cod e = 04568-0) Normal [facility] (Na, K, Cl, CO2, Glucose, BUN, Creatinine, Ca)2019-10-28 09:54:00* Test Item Value Reference Range Interpretation Comme nts NA (test code = 2405832366) 141 mmol/L 135-145 K (test code = 9843014116) 4.0 mmol/L 3.5-5 CL (test code = 5393471453) 107 mmol/L 98-108 CO2 TOTAL (test code = 3083629537) 23 mmol/L 23-31 AGAP (test code = 8372458517) 2-16 BUN (test code = 2014211533) 7 mg/dL 7-23 GLUCOSE (test code = 4986320397) 99 mg/dL 70-110 CREATININE (test code = 5612974872) 0.61 mg/dL 0.6-1.25 CALCIUM (test code = 7521234076) 9.4 mg/dL 8.6-10.6 eGFR Calculation (Non-) (test code = 2932812972) mL/min/1.73m2 eGFR Calculation () (test code = 8513291467) mL/min/1.73m2 BEVERLY (test code = BEVERLY) Association of Glomerular Filtration Rate (GFR) and Staging of Kidney Disease* + -+ + ---+| GFR (mL/min/1.73 m2) ?| With Kidney Damage ?| ?Without Kidney Damage+ -------+ ------+ ---------+| ?>90 ?| ?Stage one ?| ? Normal ?+ --+ -+ ----+| ?60-89 ?| ?Stage two ?| ? Decreased GFR ? + -+ + ---+| ?30-59 ?| ?Stage three ?| ? Stage three ? + -+ + ---+| ?15-29 ?| ?Stage four ? | ? Stage four ?+ --+ -+ ----+| ?<15 (or dialysis) ? ?| ?Stage five ? | ? Stage five ?+ --+ -+ ----+ *Each stage assumes the associated GFR level has been in effect for at least three months. ?Stages 1 to 5, with or without kidney disease, indicate chronic kidney disease. Notes: Determination of stages one and two (with eGFR >59mL/min/1.73 m2) requires estimation of kidney damage for at least three months as defined by structural or functional abnormalities of the kidney, manifested by either:Pathological abnormalities or Markers of kidney damage (including abnormalities in the composition of the blood or urine or abnormalities in imaging tests). [facility] [id number] 09:54:00* Test Item Value Reference Range Interpretation Comme nts PHOSPHORUS (test code = 6758677118) 4.0 mg/dL 2.5-5 Lab Interpretation (test cod e = 64888-4) Normal [facility] [id number] 09:54:00* Test Item Value Reference Range Interpretation Comme nts MAGNESIUM (test code = 9249705733) 1.9 mg/dL 1.7-2.4 Lab Interpretation (test cod e = 60893-7) Normal [facility] (Na, K, Cl, CO2, Glucose, BUN, Creatinine, Ca)2019-10-28 09:54:00* Test Item Value Reference Range Interpretation Comme nts NA (test code = 8057710352) 141 mmol/L 135-145 K (test code = 4325148076) 4.0 mmol/L 3.5-5 CL (test code = 6547028396) 107 mmol/L 98-108 CO2 TOTAL (test code = 3979479871) 23 mmol/L 23-31 AGAP (test code = 3414980720) 2-16 BUN (test code = 0198831631) 7 mg/dL 7-23 GLUCOSE (test code = 8354768365) 99 mg/dL 70-110 CREATININE (test code = 1708567808) 0.61 mg/dL 0.6-1.25 CALCIUM (test code = 4119051409) 9.4 mg/dL 8.6-10.6 eGFR Calculation (Non-) (test code = 9588445169) mL/min/1.73m2 eGFR Calculation () (test code = 7354397349) mL/min/1.73m2 BEVERLY (test code = BEVERLY) Association of Glomerular Filtration Rate (GFR) and Staging of Kidney Disease* + -+ + ---+| GFR (mL/min/1.73 m2) ?| With Kidney Damage ?| ?Without Kidney Damage+ -------+ ------+ ---------+| ?>90 ?| ?Stage one ?| ? Normal ?+ --+ -+ ----+| ?60-89 ?| ?Stage two ?| ? Decreased GFR ? + -+ + ---+| ?30-59 ?| ?Stage three ?| ? Stage three ? + -+ + ---+| ?15-29 ?| ?Stage four ? | ? Stage four ?+ --+ -+ ----+| ?<15 (or dialysis) ? ?| ?Stage five ? | ? Stage five ?+ --+ -+ ----+ *Each stage assumes the associated GFR level has been in effect for at least three months. ?Stages 1 to 5, with or without kidney disease, indicate chronic kidney disease. Notes: Determination of stages one and two (with eGFR >59mL/min/1.73 m2) requires estimation of kidney damage for at least three months as defined by structural or functional abnormalities of the kidney, manifested by either:Pathological abnormalities or Markers of kidney damage (including abnormalities in the composition of the blood or urine or abnormalities in imaging tests). [facility] [id number] 09:54:00* Test Item Value Reference Range Interpretation Comme nts PHOSPHORUS (test code = 9954110079) 4.0 mg/dL 2.5-5 Lab Interpretation (test cod e = 71381-3) Normal [facility] [id number] 09:54:00* Test Item Value Reference Range Interpretation Comme nts MAGNESIUM (test code = 1995127466) 1.9 mg/dL 1.7-2.4 Lab Interpretation (test cod e = 52167-8) Normal [facility] (Na, K, Cl, CO2, Glucose, BUN, Creatinine, Ca)2019-10-28 09:54:00* Test Item Value Reference Range Interpretation Comme nts NA (test code = 1508236106) 141 mmol/L 135-145 K (test code = 7511245346) 4.0 mmol/L 3.5-5 CL (test code = 9744842507) 107 mmol/L 98-108 CO2 TOTAL (test code = 5644311464) 23 mmol/L 23-31 AGAP (test code = 7997548982) 2-16 BUN (test code = 2798486721) 7 mg/dL 7-23 GLUCOSE (test code = 1854819547) 99 mg/dL 70-110 CREATININE (test code = 1971909245) 0.61 mg/dL 0.6-1.25 CALCIUM (test code = 5813050233) 9.4 mg/dL 8.6-10.6 eGFR Calculation (Non-) (test code = 5548282673) mL/min/1.73m2 eGFR Calculation () (test code = 5779293642) mL/min/1.73m2 BEVERLY (test code = BEVERLY) Association of Glomerular Filtration Rate (GFR) and Staging of Kidney Disease* + -+ + ---+| GFR (mL/min/1.73 m2) ?| With Kidney Damage ?| ?Without Kidney Damage+ -------+ ------+ ---------+| ?>90 ?| ?Stage one ?| ? Normal ?+ --+ -+ ----+| ?60-89 ?| ?Stage two ?| ? Decreased GFR ? + -+ + ---+| ?30-59 ?| ?Stage three ?| ? Stage three ? + -+ + ---+| ?15-29 ?| ?Stage four ? | ? Stage four ?+ --+ -+ ----+| ?<15 (or dialysis) ? ?| ?Stage five ? | ? Stage five ?+ --+ -+ ----+ *Each stage assumes the associated GFR level has been in effect for at least three months. ?Stages 1 to 5, with or without kidney disease, indicate chronic kidney disease. Notes: Determination of stages one and two (with eGFR >59mL/min/1.73 m2) requires estimation of kidney damage for at least three months as defined by structural or functional abnormalities of the kidney, manifested by either:Pathological abnormalities or Markers of kidney damage (including abnormalities in the composition of the blood or urine or abnormalities in imaging tests). [facility] [id number] 09:54:00* Test Item Value Reference Range Interpretation Comme nts PHOSPHORUS (test code = 1901907545) 4.0 mg/dL 2.5-5 Lab Interpretation (test cod e = 81468-3) Normal [facility] [id number] 09:54:00* Test Item Value Reference Range Interpretation Comme nts MAGNESIUM (test code = 9752091014) 1.9 mg/dL 1.7-2.4 Lab Interpretation (test cod e = 86880-7) Normal [facility] (Na, K, Cl, CO2, Glucose, BUN, Creatinine, Ca)2019-10-28 09:54:00* Test Item Value Reference Range Interpretation Comme nts NA (test code = 3767993640) 141 mmol/L 135-145 K (test code = 8673223760) 4.0 mmol/L 3.5-5 CL (test code = 1552346342) 107 mmol/L 98-108 CO2 TOTAL (test code = 0229784130) 23 mmol/L 23-31 AGAP (test code = 2764016713) 2-16 BUN (test code = 9976688296) 7 mg/dL 7-23 GLUCOSE (test code = 7164360566) 99 mg/dL 70-110 CREATININE (test code = 6230254554) 0.61 mg/dL 0.6-1.25 CALCIUM (test code = 2655015791) 9.4 mg/dL 8.6-10.6 eGFR Calculation (Non-) (test code = 7500767661) mL/min/1.73m2 eGFR Calculation () (test code = 2217877520) mL/min/1.73m2 BEVERLY (test code = BEVERLY) Association of Glomerular Filtration Rate (GFR) and Staging of Kidney Disease* + -+ + ---+| GFR (mL/min/1.73 m2) ?| With Kidney Damage ?| ?Without Kidney Damage+ -------+ ------+ ---------+| ?>90 ?| ?Stage one ?| ? Normal ?+ --+ -+ ----+| ?60-89 ?| ?Stage two ?| ? Decreased GFR ? + -+ + ---+| ?30-59 ?| ?Stage three ?| ? Stage three ? + -+ + ---+| ?15-29 ?| ?Stage four ? | ? Stage four ?+ --+ -+ ----+| ?<15 (or dialysis) ? ?| ?Stage five ? | ? Stage five ?+ --+ -+ ----+ *Each stage assumes the associated GFR level has been in effect for at least three months. ?Stages 1 to 5, with or without kidney disease, indicate chronic kidney disease. Notes: Determination of stages one and two (with eGFR >59mL/min/1.73 m2) requires estimation of kidney damage for at least three months as defined by structural or functional abnormalities of the kidney, manifested by either:Pathological abnormalities or Markers of kidney damage (including abnormalities in the composition of the blood or urine or abnormalities in imaging tests). [facility] [id number] 09:54:00* Test Item Value Reference Range Interpretation Comme nts PHOSPHORUS (test code = 3273861423) 4.0 mg/dL 2.5-5 Lab Interpretation (test cod e = 59806-1) Normal [facility] [id number] 09:54:00* Test Item Value Reference Range Interpretation Comme nts MAGNESIUM (test code = 4556541925) 1.9 mg/dL 1.7-2.4 Lab Interpretation (test cod e = 96561-5) Normal [facility] (Na, K, Cl, CO2, Glucose, BUN, Creatinine, Ca)2019-10-28 09:54:00* Test Item Value Reference Range Interpretation Comme nts NA (test code = 1094461317) 141 mmol/L 135-145 K (test code = 4709529500) 4.0 mmol/L 3.5-5 CL (test code = 0763355255) 107 mmol/L 98-108 CO2 TOTAL (test code = 5988929077) 23 mmol/L 23-31 AGAP (test code = 4261582706) 2-16 BUN (test code = 4800983856) 7 mg/dL 7-23 GLUCOSE (test code = 3468065728) 99 mg/dL 70-110 CREATININE (test code = 9820604994) 0.61 mg/dL 0.6-1.25 CALCIUM (test code = 2518088454) 9.4 mg/dL 8.6-10.6 eGFR Calculation (Non-) (test code = 5238615855) mL/min/1.73m2 eGFR Calculation () (test code = 7320842174) mL/min/1.73m2 BEVERLY (test code = BEVERLY) Association of Glomerular Filtration Rate (GFR) and Staging of Kidney Disease* + -+ + ---+| GFR (mL/min/1.73 m2) ?| With Kidney Damage ?| ?Without Kidney Damage+ -------+ ------+ ---------+| ?>90 ?| ?Stage one ?| ? Normal ?+ --+ -+ ----+| ?60-89 ?| ?Stage two ?| ? Decreased GFR ? + -+ + ---+| ?30-59 ?| ?Stage three ?| ? Stage three ? + -+ + ---+| ?15-29 ?| ?Stage four ? | ? Stage four ?+ --+ -+ ----+| ?<15 (or dialysis) ? ?| ?Stage five ? | ? Stage five ?+ --+ -+ ----+ *Each stage assumes the associated GFR level has been in effect for at least three months. ?Stages 1 to 5, with or without kidney disease, indicate chronic kidney disease. Notes: Determination of stages one and two (with eGFR >59mL/min/1.73 m2) requires estimation of kidney damage for at least three months as defined by structural or functional abnormalities of the kidney, manifested by either:Pathological abnormalities or Markers of kidney damage (including abnormalities in the composition of the blood or urine or abnormalities in imaging tests). [facility] [id number] 09:54:00* Test Item Value Reference Range Interpretation Comme nts PHOSPHORUS (test code = 0622801940) 4.0 mg/dL 2.5-5 Lab Interpretation (test cod e = 99830-6) Normal [facility] [id number] 09:54:00* Test Item Value Reference Range Interpretation Comme nts MAGNESIUM (test code = 2111233554) 1.9 mg/dL 1.7-2.4 Lab Interpretation (test cod e = 20199-7) Normal [facility] (Na, K, Cl, CO2, Glucose, BUN, Creatinine, Ca)2019-10-28 09:54:00* Test Item Value Reference Range Interpretation Comme nts NA (test code = 8295047343) 141 mmol/L 135-145 K (test code = 9895736375) 4.0 mmol/L 3.5-5 CL (test code = 1312289831) 107 mmol/L 98-108 CO2 TOTAL (test code = 5013422310) 23 mmol/L 23-31 AGAP (test code = 8860665926) 2-16 BUN (test code = 4488275094) 7 mg/dL 7-23 GLUCOSE (test code = 4254662478) 99 mg/dL 70-110 CREATININE (test code = 1177414119) 0.61 mg/dL 0.6-1.25 CALCIUM (test code = 8628169604) 9.4 mg/dL 8.6-10.6 eGFR Calculation (Non-) (test code = 3892520439) mL/min/1.73m2 eGFR Calculation () (test code = 4518173133) mL/min/1.73m2 BEVERLY (test code = BEVERLY) Association of Glomerular Filtration Rate (GFR) and Staging of Kidney Disease* + -+ + ---+| GFR (mL/min/1.73 m2) ?| With Kidney Damage ?| ?Without Kidney Damage+ -------+ ------+ ---------+| ?>90 ?| ?Stage one ?| ? Normal ?+ --+ -+ ----+| ?60-89 ?| ?Stage two ?| ? Decreased GFR ? + -+ + ---+| ?30-59 ?| ?Stage three ?| ? Stage three ? + -+ + ---+| ?15-29 ?| ?Stage four ? | ? Stage four ?+ --+ -+ ----+| ?<15 (or dialysis) ? ?| ?Stage five ? | ? Stage five ?+ --+ -+ ----+ *Each stage assumes the associated GFR level has been in effect for at least three months. ?Stages 1 to 5, with or without kidney disease, indicate chronic kidney disease. Notes: Determination of stages one and two (with eGFR >59mL/min/1.73 m2) requires estimation of kidney damage for at least three months as defined by structural or functional abnormalities of the kidney, manifested by either:Pathological abnormalities or Markers of kidney damage (including abnormalities in the composition of the blood or urine or abnormalities in imaging tests). [facility] [id number] 09:54:00* Test Item Value Reference Range Interpretation Comme nts PHOSPHORUS (test code = 5821946543) 4.0 mg/dL 2.5-5 Lab Interpretation (test cod e = 68970-4) Normal [facility] [id number] 09:54:00* Test Item Value Reference Range Interpretation Comme nts MAGNESIUM (test code = 4496953905) 1.9 mg/dL 1.7-2.4 Lab Interpretation (test cod e = 96223-9) Normal [facility] (Na, K, Cl, CO2, Glucose, BUN, Creatinine, Ca)2019-10-28 09:54:00* Test Item Value Reference Range Interpretation Comme nts NA (test code = 4729969402) 141 mmol/L 135-145 K (test code = 7798903679) 4.0 mmol/L 3.5-5 CL (test code = 9633001143) 107 mmol/L 98-108 CO2 TOTAL (test code = 7472472436) 23 mmol/L 23-31 AGAP (test code = 0079944106) 2-16 BUN (test code = 9670858017) 7 mg/dL 7-23 GLUCOSE (test code = 1705926758) 99 mg/dL 70-110 CREATININE (test code = 7285507561) 0.61 mg/dL 0.6-1.25 CALCIUM (test code = 6298414919) 9.4 mg/dL 8.6-10.6 eGFR Calculation (Non-) (test code = 9670148719) mL/min/1.73m2 eGFR Calculation () (test code = 5674607272) mL/min/1.73m2 BEVERLY (test code = BEVERLY) Association of Glomerular Filtration Rate (GFR) and Staging of Kidney Disease* + -+ + ---+| GFR (mL/min/1.73 m2) ?| With Kidney Damage ?| ?Without Kidney Damage+ -------+ ------+ ---------+| ?>90 ?| ?Stage one ?| ? Normal ?+ --+ -+ ----+| ?60-89 ?| ?Stage two ?| ? Decreased GFR ? + -+ + ---+| ?30-59 ?| ?Stage three ?| ? Stage three ? + -+ + ---+| ?15-29 ?| ?Stage four ? | ? Stage four ?+ --+ -+ ----+| ?<15 (or dialysis) ? ?| ?Stage five ? | ? Stage five ?+ --+ -+ ----+ *Each stage assumes the associated GFR level has been in effect for at least three months. ?Stages 1 to 5, with or without kidney disease, indicate chronic kidney disease. Notes: Determination of stages one and two (with eGFR >59mL/min/1.73 m2) requires estimation of kidney damage for at least three months as defined by structural or functional abnormalities of the kidney, manifested by either:Pathological abnormalities or Markers of kidney damage (including abnormalities in the composition of the blood or urine or abnormalities in imaging tests). [facility] [id number] 09:54:00* Test Item Value Reference Range Interpretation Comme nts PHOSPHORUS (test code = 6177610074) 4.0 mg/dL 2.5-5 Lab Interpretation (test cod e = 10143-2) Normal [facility] [id number] 09:54:00* Test Item Value Reference Range Interpretation Comme nts MAGNESIUM (test code = 4039618783) 1.9 mg/dL 1.7-2.4 Lab Interpretation (test cod e = 84214-6) Normal [facility] (Na, K, Cl, CO2, Glucose, BUN, Creatinine, Ca)2019-10-28 09:54:00* Test Item Value Reference Range Interpretation Comme nts NA (test code = 3188719960) 141 mmol/L 135-145 K (test code = 9485703334) 4.0 mmol/L 3.5-5 CL (test code = 6643053244) 107 mmol/L 98-108 CO2 TOTAL (test code = 5180713381) 23 mmol/L 23-31 AGAP (test code = 0048142538) 2-16 BUN (test code = 1891114243) 7 mg/dL 7-23 GLUCOSE (test code = 1092737219) 99 mg/dL 70-110 CREATININE (test code = 6997025104) 0.61 mg/dL 0.6-1.25 CALCIUM (test code = 8269432655) 9.4 mg/dL 8.6-10.6 eGFR Calculation (Non-) (test code = 2160933237) mL/min/1.73m2 eGFR Calculation () (test code = 7974084009) mL/min/1.73m2 BEVERLY (test code = BEVERLY) Association of Glomerular Filtration Rate (GFR) and Staging of Kidney Disease* + -+ + ---+| GFR (mL/min/1.73 m2) ?| With Kidney Damage ?| ?Without Kidney Damage+ -------+ ------+ ---------+| ?>90 ?| ?Stage one ?| ? Normal ?+ --+ -+ ----+| ?60-89 ?| ?Stage two ?| ? Decreased GFR ? + -+ + ---+| ?30-59 ?| ?Stage three ?| ? Stage three ? + -+ + ---+| ?15-29 ?| ?Stage four ? | ? Stage four ?+ --+ -+ ----+| ?<15 (or dialysis) ? ?| ?Stage five ? | ? Stage five ?+ --+ -+ ----+ *Each stage assumes the associated GFR level has been in effect for at least three months. ?Stages 1 to 5, with or without kidney disease, indicate chronic kidney disease. Notes: Determination of stages one and two (with eGFR >59mL/min/1.73 m2) requires estimation of kidney damage for at least three months as defined by structural or functional abnormalities of the kidney, manifested by either:Pathological abnormalities or Markers of kidney damage (including abnormalities in the composition of the blood or urine or abnormalities in imaging tests). [facility] [id number] 09:54:00* Test Item Value Reference Range Interpretation Comme nts PHOSPHORUS (test code = 1564623810) 4.0 mg/dL 2.5-5 Lab Interpretation (test cod e = 82098-8) Normal [facility] [id number] 09:54:00* Test Item Value Reference Range Interpretation Comme nts MAGNESIUM (test code = 9285714347) 1.9 mg/dL 1.7-2.4 Lab Interpretation (test cod e = 58767-8) Normal [facility] (Na, K, Cl, CO2, Glucose, BUN, Creatinine, Ca)2019-10-28 09:54:00* Test Item Value Reference Range Interpretation Comme nts NA (test code = 3536974368) 141 mmol/L 135-145 K (test code = 3381922326) 4.0 mmol/L 3.5-5 CL (test code = 8886713700) 107 mmol/L 98-108 CO2 TOTAL (test code = 9860414028) 23 mmol/L 23-31 AGAP (test code = 8178056817) 2-16 BUN (test code = 3795559538) 7 mg/dL 7-23 GLUCOSE (test code = 5831893951) 99 mg/dL 70-110 CREATININE (test code = 8112256448) 0.61 mg/dL 0.6-1.25 CALCIUM (test code = 2174312259) 9.4 mg/dL 8.6-10.6 eGFR Calculation (Non-) (test code = 5119767464) mL/min/1.73m2 eGFR Calculation () (test code = 1840481469) mL/min/1.73m2 BEVERLY (test code = BEVERLY) Association of Glomerular Filtration Rate (GFR) and Staging of Kidney Disease* + -+ + ---+| GFR (mL/min/1.73 m2) ?| With Kidney Damage ?| ?Without Kidney Damage+ -------+ ------+ ---------+| ?>90 ?| ?Stage one ?| ? Normal ?+ --+ -+ ----+| ?60-89 ?| ?Stage two ?| ? Decreased GFR ? + -+ + ---+| ?30-59 ?| ?Stage three ?| ? Stage three ? + -+ + ---+| ?15-29 ?| ?Stage four ? | ? Stage four ?+ --+ -+ ----+| ?<15 (or dialysis) ? ?| ?Stage five ? | ? Stage five ?+ --+ -+ ----+ *Each stage assumes the associated GFR level has been in effect for at least three months. ?Stages 1 to 5, with or without kidney disease, indicate chronic kidney disease. Notes: Determination of stages one and two (with eGFR >59mL/min/1.73 m2) requires estimation of kidney damage for at least three months as defined by structural or functional abnormalities of the kidney, manifested by either:Pathological abnormalities or Markers of kidney damage (including abnormalities in the composition of the blood or urine or abnormalities in imaging tests). [facility] [id number] 09:54:00* Test Item Value Reference Range Interpretation Comme nts PHOSPHORUS (test code = 0680682194) 4.0 mg/dL 2.5-5 Lab Interpretation (test cod e = 80458-8) Normal [facility] [id number] 09:54:00* Test Item Value Reference Range Interpretation Comme nts MAGNESIUM (test code = 6052943563) 1.9 mg/dL 1.7-2.4 Lab Interpretation (test cod e = 35698-2) Normal [facility] (Na, K, Cl, CO2, Glucose, BUN, Creatinine, Ca)2019-10-28 09:54:00* Test Item Value Reference Range Interpretation Comme nts NA (test code = 4018169839) 141 mmol/L 135-145 K (test code = 2307214343) 4.0 mmol/L 3.5-5 CL (test code = 7496611343) 107 mmol/L 98-108 CO2 TOTAL (test code = 5754597736) 23 mmol/L 23-31 AGAP (test code = 1334619714) 2-16 BUN (test code = 7717845953) 7 mg/dL 7-23 GLUCOSE (test code = 3964201101) 99 mg/dL 70-110 CREATININE (test code = 4004017204) 0.61 mg/dL 0.6-1.25 CALCIUM (test code = 8311449951) 9.4 mg/dL 8.6-10.6 eGFR Calculation (Non-) (test code = 4317396069) mL/min/1.73m2 eGFR Calculation () (test code = 9893809779) mL/min/1.73m2 BEVERLY (test code = BEVERLY) Association of Glomerular Filtration Rate (GFR) and Staging of Kidney Disease* + -+ + ---+| GFR (mL/min/1.73 m2) ?| With Kidney Damage ?| ?Without Kidney Damage+ -------+ ------+ ---------+| ?>90 ?| ?Stage one ?| ? Normal ?+ --+ -+ ----+| ?60-89 ?| ?Stage two ?| ? Decreased GFR ? + -+ + ---+| ?30-59 ?| ?Stage three ?| ? Stage three ? + -+ + ---+| ?15-29 ?| ?Stage four ? | ? Stage four ?+ --+ -+ ----+| ?<15 (or dialysis) ? ?| ?Stage five ? | ? Stage five ?+ --+ -+ ----+ *Each stage assumes the associated GFR level has been in effect for at least three months. ?Stages 1 to 5, with or without kidney disease, indicate chronic kidney disease. Notes: Determination of stages one and two (with eGFR >59mL/min/1.73 m2) requires estimation of kidney damage for at least three months as defined by structural or functional abnormalities of the kidney, manifested by either:Pathological abnormalities or Markers of kidney damage (including abnormalities in the composition of the blood or urine or abnormalities in imaging tests). [facility] [id number] 09:54:00* Test Item Value Reference Range Interpretation Comme nts PHOSPHORUS (test code = 9388944755) 4.0 mg/dL 2.5-5 Lab Interpretation (test cod e = 68244-6) Normal [facility] [id number] 09:54:00* Test Item Value Reference Range Interpretation Comme nts MAGNESIUM (test code = 3058704062) 1.9 mg/dL 1.7-2.4 Lab Interpretation (test cod e = 81049-3) Normal [facility] (Na, K, Cl, CO2, Glucose, BUN, Creatinine, Ca)2019-10-28 09:54:00* Test Item Value Reference Range Interpretation Comme nts NA (test code = 3258601203) 141 mmol/L 135-145 K (test code = 8920766072) 4.0 mmol/L 3.5-5 CL (test code = 7498750107) 107 mmol/L 98-108 CO2 TOTAL (test code = 5775719320) 23 mmol/L 23-31 AGAP (test code = 8615773968) 2-16 BUN (test code = 6312515635) 7 mg/dL 7-23 GLUCOSE (test code = 4135438775) 99 mg/dL 70-110 CREATININE (test code = 5554094049) 0.61 mg/dL 0.6-1.25 CALCIUM (test code = 4086024038) 9.4 mg/dL 8.6-10.6 eGFR Calculation (Non-) (test code = 9937079041) mL/min/1.73m2 eGFR Calculation () (test code = 9446732218) mL/min/1.73m2 BEVERLY (test code = BEVERLY) Association of Glomerular Filtration Rate (GFR) and Staging of Kidney Disease* + -+ + ---+| GFR (mL/min/1.73 m2) ?| With Kidney Damage ?| ?Without Kidney Damage+ -------+ ------+ ---------+| ?>90 ?| ?Stage one ?| ? Normal ?+ --+ -+ ----+| ?60-89 ?| ?Stage two ?| ? Decreased GFR ? + -+ + ---+| ?30-59 ?| ?Stage three ?| ? Stage three ? + -+ + ---+| ?15-29 ?| ?Stage four ? | ? Stage four ?+ --+ -+ ----+| ?<15 (or dialysis) ? ?| ?Stage five ? | ? Stage five ?+ --+ -+ ----+ *Each stage assumes the associated GFR level has been in effect for at least three months. ?Stages 1 to 5, with or without kidney disease, indicate chronic kidney disease. Notes: Determination of stages one and two (with eGFR >59mL/min/1.73 m2) requires estimation of kidney damage for at least three months as defined by structural or functional abnormalities of the kidney, manifested by either:Pathological abnormalities or Markers of kidney damage (including abnormalities in the composition of the blood or urine or abnormalities in imaging tests). [facility] [id number] 09:54:00* Test Item Value Reference Range Interpretation Comme nts PHOSPHORUS (test code = 0519356231) 4.0 mg/dL 2.5-5 Lab Interpretation (test cod e = 77209-0) Normal [facility] [id number] 09:54:00* Test Item Value Reference Range Interpretation Comme nts MAGNESIUM (test code = 3452678188) 1.9 mg/dL 1.7-2.4 Lab Interpretation (test cod e = 51145-8) Normal [facility] (Na, K, Cl, CO2, Glucose, BUN, Creatinine, Ca)2019-10-28 09:54:00* Test Item Value Reference Range Interpretation Comme nts NA (test code = 9558865275) 141 mmol/L 135-145 K (test code = 2448057725) 4.0 mmol/L 3.5-5 CL (test code = 1427474357) 107 mmol/L 98-108 CO2 TOTAL (test code = 8854474679) 23 mmol/L 23-31 AGAP (test code = 8235648289) 2-16 BUN (test code = 0494544897) 7 mg/dL 7-23 GLUCOSE (test code = 6644657191) 99 mg/dL 70-110 CREATININE (test code = 0815949020) 0.61 mg/dL 0.6-1.25 CALCIUM (test code = 7764976212) 9.4 mg/dL 8.6-10.6 eGFR Calculation (Non-) (test code = 9063805647) mL/min/1.73m2 eGFR Calculation () (test code = 1768689704) mL/min/1.73m2 BEVERLY (test code = BEVERLY) Association of Glomerular Filtration Rate (GFR) and Staging of Kidney Disease* + -+ + ---+| GFR (mL/min/1.73 m2) ?| With Kidney Damage ?| ?Without Kidney Damage+ -------+ ------+ ---------+| ?>90 ?| ?Stage one ?| ? Normal ?+ --+ -+ ----+| ?60-89 ?| ?Stage two ?| ? Decreased GFR ? + -+ + ---+| ?30-59 ?| ?Stage three ?| ? Stage three ? + -+ + ---+| ?15-29 ?| ?Stage four ? | ? Stage four ?+ --+ -+ ----+| ?<15 (or dialysis) ? ?| ?Stage five ? | ? Stage five ?+ --+ -+ ----+ *Each stage assumes the associated GFR level has been in effect for at least three months. ?Stages 1 to 5, with or without kidney disease, indicate chronic kidney disease. Notes: Determination of stages one and two (with eGFR >59mL/min/1.73 m2) requires estimation of kidney damage for at least three months as defined by structural or functional abnormalities of the kidney, manifested by either:Pathological abnormalities or Markers of kidney damage (including abnormalities in the composition of the blood or urine or abnormalities in imaging tests). [facility] [id number] 09:54:00* Test Item Value Reference Range Interpretation Comme nts PHOSPHORUS (test code = 4146320916) 4.0 mg/dL 2.5-5 Lab Interpretation (test cod e = 02879-9) Normal [facility] [id number] 09:54:00* Test Item Value Reference Range Interpretation Comme nts MAGNESIUM (test code = 6502492698) 1.9 mg/dL 1.7-2.4 Lab Interpretation (test cod e = 39272-1) Normal [facility] (Na, K, Cl, CO2, Glucose, BUN, Creatinine, Ca)2019-10-28 09:54:00* Test Item Value Reference Range Interpretation Comme nts NA (test code = 4163007930) 141 mmol/L 135-145 K (test code = 3243008100) 4.0 mmol/L 3.5-5 CL (test code = 4318674923) 107 mmol/L 98-108 CO2 TOTAL (test code = 2811148033) 23 mmol/L 23-31 AGAP (test code = 6905530560) 2-16 BUN (test code = 1357464843) 7 mg/dL 7-23 GLUCOSE (test code = 5193286147) 99 mg/dL 70-110 CREATININE (test code = 4355101095) 0.61 mg/dL 0.6-1.25 CALCIUM (test code = 6511495490) 9.4 mg/dL 8.6-10.6 eGFR Calculation (Non-) (test code = 2411798897) mL/min/1.73m2 eGFR Calculation () (test code = 4631201308) mL/min/1.73m2 BEVERLY (test code = BEVERLY) Association of Glomerular Filtration Rate (GFR) and Staging of Kidney Disease* + -+ + ---+| GFR (mL/min/1.73 m2) ?| With Kidney Damage ?| ?Without Kidney Damage+ -------+ ------+ ---------+| ?>90 ?| ?Stage one ?| ? Normal ?+ --+ -+ ----+| ?60-89 ?| ?Stage two ?| ? Decreased GFR ? + -+ + ---+| ?30-59 ?| ?Stage three ?| ? Stage three ? + -+ + ---+| ?15-29 ?| ?Stage four ? | ? Stage four ?+ --+ -+ ----+| ?<15 (or dialysis) ? ?| ?Stage five ? | ? Stage five ?+ --+ -+ ----+ *Each stage assumes the associated GFR level has been in effect for at least three months. ?Stages 1 to 5, with or without kidney disease, indicate chronic kidney disease. Notes: Determination of stages one and two (with eGFR >59mL/min/1.73 m2) requires estimation of kidney damage for at least three months as defined by structural or functional abnormalities of the kidney, manifested by either:Pathological abnormalities or Markers of kidney damage (including abnormalities in the composition of the blood or urine or abnormalities in imaging tests). [facility] [id number] 09:54:00* Test Item Value Reference Range Interpretation Comme nts PHOSPHORUS (test code = 3330345733) 4.0 mg/dL 2.5-5 Lab Interpretation (test cod e = 93771-6) Normal [facility] Cshxv7981-56-33 09:54:00* Test Item Value Reference Range Interpretation Comme nts MAGNESIUM (test code = 8672942526) 1.9 mg/dL 1.7-2.4 Lab Interpretation (test cod e = 27094-0) [facility] (Na, K, Cl, CO2, Glucose, BUN, Creatinine, Ca)2019-10-28 09:54:00* Test Item Value Reference Range Interpretation Comme nts NA (test code = 3527555553) 141 mmol/L 135-145 K (test code = 5844918363) 4.0 mmol/L 3.5-5 CL (test code = 5261190337) 107 mmol/L 98-108 CO2 TOTAL (test code = 9051109516) 23 mmol/L 23-31 AGAP (test code = 9149301162) 2-16 BUN (test code = 7036998964) 7 mg/dL 7-23 GLUCOSE (test code = 2178636389) 99 mg/dL 70-110 CREATININE (test code = 2953834509) 0.61 mg/dL 0.6-1.25 CALCIUM (test code = 9922469266) 9.4 mg/dL 8.6-10.6 eGFR Calculation (Non-) (test code = 3597914390) mL/min/1.73m2 eGFR Calculation () (test code = 9223215530) mL/min/1.73m2 BEVERLY (test code = BEVERLY) Association of Glomerular Filtration Rate (GFR) and Staging of Kidney Disease* + -+ + ---+| GFR (mL/min/1.73 m2) ?| With Kidney Damage ?| ?Without Kidney Damage+ -------+ ------+ ---------+| ?>90 ?| ?Stage one ?| ? Normal ?+ --+ -+ ----+| ?60-89 ?| ?Stage two ?| ? Decreased GFR ? + -+ + ---+| ?30-59 ?| ?Stage three ?| ? Stage three ? + -+ + ---+| ?15-29 ?| ?Stage four ? | ? Stage four ?+ --+ -+ ----+| ?<15 (or dialysis) ? ?| ?Stage five ? | ? Stage five ?+ --+ -+ ----+ *Each stage assumes the associated GFR level has been in effect for at least three months. ?Stages 1 to 5, with or without kidney disease, indicate chronic kidney disease. Notes: Determination of stages one and two (with eGFR >59mL/min/1.73 m2) requires estimation of kidney damage for at least three months as defined by structural or functional abnormalities of the kidney, manifested by either:Pathological abnormalities or Markers of kidney damage (including abnormalities in the composition of the blood or urine or abnormalities in imaging tests). [facility] Mbuqv2186-23-07 09:54:00* Test Item Value Reference Range Interpretation Comme nts PHOSPHORUS (test code = 4476436218) 4.0 mg/dL 2.5-5 Lab Interpretation (test cod e = 81129-4) Normal [facility] Rfjfe8126-27-87 09:54:00* Test Item Value Reference Range Interpretation Comme nts MAGNESIUM (test code = 5653688214) 1.9 mg/dL 1.7-2.4 Lab Interpretation (test cod e = 47861-1) Normal [facility] (Na, K, Cl, CO2, Glucose, BUN, Creatinine, Ca)2019-10-28 09:54:00* Test Item Value Reference Range Interpretation Comme nts NA (test code = 7184782972) 141 mmol/L 135-145 K (test code = 1891020190) 4.0 mmol/L 3.5-5 CL (test code = 0322913383) 107 mmol/L 98-108 CO2 TOTAL (test code = 6075754848) 23 mmol/L 23-31 AGAP (test code = 0179493474) 2-16 BUN (test code = 6774860350) 7 mg/dL 7-23 GLUCOSE (test code = 7125274081) 99 mg/dL 70-110 CREATININE (test code = 1705653133) 0.61 mg/dL 0.6-1.25 CALCIUM (test code = 3834643579) 9.4 mg/dL 8.6-10.6 eGFR Calculation (Non-) (test code = 4514462210) mL/min/1.73m2 eGFR Calculation () (test code = 8425781968) mL/min/1.73m2 BEVERLY (test code = BEVERLY) Association of Glomerular Filtration Rate (GFR) and Staging of Kidney Disease* + -+ + ---+| GFR (mL/min/1.73 m2) ?| With Kidney Damage ?| ?Without Kidney Damage+ -------+ ------+ ---------+| ?>90 ?| ?Stage one ?| ? Normal ?+ --+ -+ ----+| ?60-89 ?| ?Stage two ?| ? Decreased GFR ? + -+ + ---+| ?30-59 ?| ?Stage three ?| ? Stage three ? + -+ + ---+| ?15-29 ?| ?Stage four ? | ? Stage four ?+ --+ -+ ----+| ?<15 (or dialysis) ? ?| ?Stage five ? | ? Stage five ?+ --+ -+ ----+ *Each stage assumes the associated GFR level has been in effect for at least three months. ?Stages 1 to 5, with or without kidney disease, indicate chronic kidney disease. Notes: Determination of stages one and two (with eGFR >59mL/min/1.73 m2) requires estimation of kidney damage for at least three months as defined by structural or functional abnormalities of the kidney, manifested by either:Pathological abnormalities or Markers of kidney damage (including abnormalities in the composition of the blood or urine or abnormalities in imaging tests). [facility] [id number] 09:54:00* Test Item Value Reference Range Interpretation Comme nts PHOSPHORUS (test code = 5577637867) 4.0 mg/dL 2.5-5 Lab Interpretation (test cod e = 44809-8) Normal [facility] Fsllo1370-63-32 09:54:00* Test Item Value Reference Range Interpretation Comme nts MAGNESIUM (test code = 7640518159) 1.9 mg/dL 1.7-2.4 Lab Interpretation (test cod e = 70453-7) Normal [facility] (Na, K, Cl, CO2, Glucose, BUN, Creatinine, Ca)2019-10-28 09:54:00* Test Item Value Reference Range Interpretation Comme nts NA (test code = 1120177722) 141 mmol/L 135-145 K (test code = 0761670175) 4.0 mmol/L 3.5-5 CL (test code = 7937886786) 107 mmol/L 98-108 CO2 TOTAL (test code = 3591470498) 23 mmol/L 23-31 AGAP (test code = 5839437185) 2-16 BUN (test code = 6755305429) 7 mg/dL 7-23 GLUCOSE (test code = 9411605647) 99 mg/dL 70-110 CREATININE (test code = 1466765274) 0.61 mg/dL 0.6-1.25 CALCIUM (test code = 0488080424) 9.4 mg/dL 8.6-10.6 eGFR Calculation (Non-) (test code = 6254837565) mL/min/1.73m2 eGFR Calculation () (test code = 4110305862) mL/min/1.73m2 BEVERLY (test code = BEVERLY) Association of Glomerular Filtration Rate (GFR) and Staging of Kidney Disease* + -+ + ---+| GFR (mL/min/1.73 m2) ?| With Kidney Damage ?| ?Without Kidney Damage+ -------+ ------+ ---------+| ?>90 ?| ?Stage one ?| ? Normal ?+ --+ -+ ----+| ?60-89 ?| ?Stage two ?| ? Decreased GFR ? + -+ + ---+| ?30-59 ?| ?Stage three ?| ? Stage three ? + -+ + ---+| ?15-29 ?| ?Stage four ? | ? Stage four ?+ --+ -+ ----+| ?<15 (or dialysis) ? ?| ?Stage five ? | ? Stage five ?+ --+ -+ ----+ *Each stage assumes the associated GFR level has been in effect for at least three months. ?Stages 1 to 5, with or without kidney disease, indicate chronic kidney disease. Notes: Determination of stages one and two (with eGFR >59mL/min/1.73 m2) requires estimation of kidney damage for at least three months as defined by structural or functional abnormalities of the kidney, manifested by either:Pathological abnormalities or Markers of kidney damage (including abnormalities in the composition of the blood or urine or abnormalities in imaging tests). [facility] [id number] 09:54:00* Test Item Value Reference Range Interpretation Comme nts PHOSPHORUS (test code = 0791086322) 4.0 mg/dL 2.5-5 Lab Interpretation (test cod e = 86245-2) Normal [facility] Acuhm0879-93-41 09:54:00* Test Item Value Reference Range Interpretation Comme nts MAGNESIUM (test code = 5641658135) 1.9 mg/dL 1.7-2.4 Lab Interpretation (test cod e = 25502-4) Normal [facility] (Na, K, Cl, CO2, Glucose, BUN, Creatinine, Ca)2019-10-28 09:54:00* Test Item Value Reference Range Interpretation Comme nts NA (test code = 9512107075) 141 mmol/L 135-145 K (test code = 7722020808) 4.0 mmol/L 3.5-5 CL (test code = 9710242447) 107 mmol/L 98-108 CO2 TOTAL (test code = 6815647304) 23 mmol/L 23-31 AGAP (test code = 2936751515) 2-16 BUN (test code = 9299163913) 7 mg/dL 7-23 GLUCOSE (test code = 3371184840) 99 mg/dL 70-110 CREATININE (test code = 5296700691) 0.61 mg/dL 0.6-1.25 CALCIUM (test code = 7202266289) 9.4 mg/dL 8.6-10.6 eGFR Calculation (Non-) (test code = 0254067063) mL/min/1.73m2 eGFR Calculation () (test code = 1179973195) mL/min/1.73m2 BEVERLY (test code = BEVERLY) Association of Glomerular Filtration Rate (GFR) and Staging of Kidney Disease* + -+ + ---+| GFR (mL/min/1.73 m2) ?| With Kidney Damage ?| ?Without Kidney Damage+ -------+ ------+ ---------+| ?>90 ?| ?Stage one ?| ? Normal ?+ --+ -+ ----+| ?60-89 ?| ?Stage two ?| ? Decreased GFR ? + -+ + ---+| ?30-59 ?| ?Stage three ?| ? Stage three ? + -+ + ---+| ?15-29 ?| ?Stage four ? | ? Stage four ?+ --+ -+ ----+| ?<15 (or dialysis) ? ?| ?Stage five ? | ? Stage five ?+ --+ -+ ----+ *Each stage assumes the associated GFR level has been in effect for at least three months. ?Stages 1 to 5, with or without kidney disease, indicate chronic kidney disease. Notes: Determination of stages one and two (with eGFR >59mL/min/1.73 m2) requires estimation of kidney damage for at least three months as defined by structural or functional abnormalities of the kidney, manifested by either:Pathological abnormalities or Markers of kidney damage (including abnormalities in the composition of the blood or urine or abnormalities in imaging tests). [facility] Ankdg4899-02-34 09:54:00* Test Item Value Reference Range Interpretation Comme nts PHOSPHORUS (test code = 4819506009) 4.0 mg/dL 2.5-5 Lab Interpretation (test cod e = 90048-1) Normal [facility] Etdnv0012-07-57 09:54:00* Test Item Value Reference Range Interpretation Comme nts MAGNESIUM (test code = 1662067266) 1.9 mg/dL 1.7-2.4 Lab Interpretation (test cod e = 70053-9) Normal [facility] (Na, K, Cl, CO2, Glucose, BUN, Creatinine, Ca)2019-10-28 09:54:00* Test Item Value Reference Range Interpretation Comme nts NA (test code = 8565015506) 141 mmol/L 135-145 K (test code = 2845409509) 4.0 mmol/L 3.5-5 CL (test code = 7006923752) 107 mmol/L 98-108 CO2 TOTAL (test code = 4187896629) 23 mmol/L 23-31 AGAP (test code = 5716937994) 2-16 BUN (test code = 3943356856) 7 mg/dL 7-23 GLUCOSE (test code = 2971463024) 99 mg/dL 70-110 CREATININE (test code = 0707075562) 0.61 mg/dL 0.6-1.25 CALCIUM (test code = 3637569714) 9.4 mg/dL 8.6-10.6 eGFR Calculation (Non-) (test code = 5573674628) mL/min/1.73m2 eGFR Calculation () (test code = 1143655595) mL/min/1.73m2 BEVERLY (test code = BEVERLY) Association of Glomerular Filtration Rate (GFR) and Staging of Kidney Disease* + -+ + ---+| GFR (mL/min/1.73 m2) ?| With Kidney Damage ?| ?Without Kidney Damage+ -------+ ------+ ---------+| ?>90 ?| ?Stage one ?| ? Normal ?+ --+ -+ ----+| ?60-89 ?| ?Stage two ?| ? Decreased GFR ? + -+ + ---+| ?30-59 ?| ?Stage three ?| ? Stage three ? + -+ + ---+| ?15-29 ?| ?Stage four ? | ? Stage four ?+ --+ -+ ----+| ?<15 (or dialysis) ? ?| ?Stage five ? | ? Stage five ?+ --+ -+ ----+ *Each stage assumes the associated GFR level has been in effect for at least three months. ?Stages 1 to 5, with or without kidney disease, indicate chronic kidney disease. Notes: Determination of stages one and two (with eGFR >59mL/min/1.73 m2) requires estimation of kidney damage for at least three months as defined by structural or functional abnormalities of the kidney, manifested by either:Pathological abnormalities or Markers of kidney damage (including abnormalities in the composition of the blood or urine or abnormalities in imaging tests). [facility] Evurx3959-59-92 09:54:00* Test Item Value Reference Range Interpretation Comme nts PHOSPHORUS (test code = 8714307874) 4.0 mg/dL 2.5-5 Lab Interpretation (test cod e = 14243-2) Normal [facility] Baslb1049-71-56 09:54:00* Test Item Value Reference Range Interpretation Comme nts MAGNESIUM (test code = 9202939892) 1.9 mg/dL 1.7-2.4 Lab Interpretation (test cod e = 14847-8) Normal [facility] Metabolic Panel (Na, K, Cl, CO2, Glucose, BUN, Creatinine, Ca)2019-10-28 09:54:00* Test Item Value Reference Range Interpretation Comme nts NA (test code = 2203084789) 141 mmol/L 135-145 K (test code = 9817085904) 4.0 mmol/L 3.5-5 CL (test code = 6018805549) 107 mmol/L 98-108 CO2 TOTAL (test code = 9965178146) 23 mmol/L 23-31 AGAP (test code = 1575595200) 2-16 BUN (test code = 3794825227) 7 mg/dL 7-23 GLUCOSE (test code = 7842972593) 99 mg/dL 70-110 CREATININE (test code = 1141764280) 0.61 mg/dL 0.6-1.25 CALCIUM (test code = 4928482203) 9.4 mg/dL 8.6-10.6 eGFR Calculation (Non-) (test code = 1402779379) mL/min/1.73m2 eGFR Calculation () (test code = 0490103437) mL/min/1.73m2 BEVERLY (test code = BEVERLY) Association of Glomerular Filtration Rate (GFR) and Staging of Kidney Disease* + -+ + ---+| GFR (mL/min/1.73 m2) ?| With Kidney Damage ?| ?Without Kidney Damage+ -------+ ------+ ---------+| ?>90 ?| ?Stage one ?| ? Normal ?+ --+ -+ ----+| ?60-89 ?| ?Stage two ?| ? Decreased GFR ? + -+ + ---+| ?30-59 ?| ?Stage three ?| ? Stage three ? + -+ + ---+| ?15-29 ?| ?Stage four ? | ? Stage four ?+ --+ -+ ----+| ?<15 (or dialysis) ? ?| ?Stage five ? | ? Stage five ?+ --+ -+ ----+ *Each stage assumes the associated GFR level has been in effect for at least three months. ?Stages 1 to 5, with or without kidney disease, indicate chronic kidney disease. Notes: Determination of stages one and two (with eGFR >59mL/min/1.73 m2) requires estimation of kidney damage for at least three months as defined by structural or functional abnormalities of the kidney, manifested by either:Pathological abnormalities or Markers of kidney damage (including abnormalities in the composition of the blood or urine or abnormalities in imaging tests). [facility] Dthbu7849-34-40 09:54:00* Test Item Value Reference Range Interpretation Comme nts PHOSPHORUS (test code = 6270387436) 4.0 mg/dL 2.5-5 Lab Interpretation (test cod e = 26415-7) Normal [facility] Rthlc8831-36-16 09:54:00* Test Item Value Reference Range Interpretation Comme nts MAGNESIUM (test code = 7403929382) 1.9 mg/dL 1.7-2.4 Lab Interpretation (test cod e = 43608-7) Normal [facility] (Na, K, Cl, CO2, Glucose, BUN, Creatinine, Ca)2019-10-28 09:54:00* Test Item Value Reference Range Interpretation Comme nts NA (test code = 6853033004) 141 mmol/L 135-145 K (test code = 8937937758) 4.0 mmol/L 3.5-5 CL (test code = 2465483480) 107 mmol/L 98-108 CO2 TOTAL (test code = 7168711642) 23 mmol/L 23-31 AGAP (test code = 1261883728) 2-16 BUN (test code = 0433720023) 7 mg/dL 7-23 GLUCOSE (test code = 2199705682) 99 mg/dL 70-110 CREATININE (test code = 2941414780) 0.61 mg/dL 0.6-1.25 CALCIUM (test code = 3722880976) 9.4 mg/dL 8.6-10.6 eGFR Calculation (Non-) (test code = 4905177477) mL/min/1.73m2 eGFR Calculation () (test code = 1627362772) mL/min/1.73m2 BEVERLY (test code = BEVERLY) Association of Glomerular Filtration Rate (GFR) and Staging of Kidney Disease* + -+ + ---+| GFR (mL/min/1.73 m2) ?| With Kidney Damage ?| ?Without Kidney Damage+ -------+ ------+ ---------+| ?>90 ?| ?Stage one ?| ? Normal ?+ --+ -+ ----+| ?60-89 ?| ?Stage two ?| ? Decreased GFR ? + -+ + ---+| ?30-59 ?| ?Stage three ?| ? Stage three ? + -+ + ---+| ?15-29 ?| ?Stage four ? | ? Stage four ?+ --+ -+ ----+| ?<15 (or dialysis) ? ?| ?Stage five ? | ? Stage five ?+ --+ -+ ----+ *Each stage assumes the associated GFR level has been in effect for at least three months. ?Stages 1 to 5, with or without kidney disease, indicate chronic kidney disease. Notes: Determination of stages one and two (with eGFR >59mL/min/1.73 m2) requires estimation of kidney damage for at least three months as defined by structural or functional abnormalities of the kidney, manifested by either:Pathological abnormalities or Markers of kidney damage (including abnormalities in the composition of the blood or urine or abnormalities in imaging tests). [facility] Kzdrt0754-15-96 09:54:00* Test Item Value Reference Range Interpretation Comme nts PHOSPHORUS (test code = 2174516097) 4.0 mg/dL 2.5-5 Lab Interpretation (test cod e = 76963-4) Normal [facility] Hfuhu1368-90-04 09:54:00* Test Item Value Reference Range Interpretation Comme nts MAGNESIUM (test code = 5525273827) 1.9 mg/dL 1.7-2.4 Lab Interpretation (test cod e = 38132-7) Normal [facility] (Na, K, Cl, CO2, Glucose, BUN, Creatinine, Ca)2019-10-28 09:54:00* Test Item Value Reference Range Interpretation Comme nts NA (test code = 3694444755) 141 mmol/L 135-145 K (test code = 4828317550) 4.0 mmol/L 3.5-5 CL (test code = 6990110932) 107 mmol/L 98-108 CO2 TOTAL (test code = 0403252548) 23 mmol/L 23-31 AGAP (test code = 7338213772) 2-16 BUN (test code = 0659626391) 7 mg/dL 7-23 GLUCOSE (test code = 4512407970) 99 mg/dL 70-110 CREATININE (test code = 1865306458) 0.61 mg/dL 0.6-1.25 CALCIUM (test code = 9994676429) 9.4 mg/dL 8.6-10.6 eGFR Calculation (Non-) (test code = 4745585760) mL/min/1.73m2 eGFR Calculation () (test code = 2753222194) mL/min/1.73m2 BEVERLY (test code = BEVERLY) Association of Glomerular Filtration Rate (GFR) and Staging of Kidney Disease* + -+ + ---+| GFR (mL/min/1.73 m2) ?| With Kidney Damage ?| ?Without Kidney Damage+ -------+ ------+ ---------+| ?>90 ?| ?Stage one ?| ? Normal ?+ --+ -+ ----+| ?60-89 ?| ?Stage two ?| ? Decreased GFR ? + -+ + ---+| ?30-59 ?| ?Stage three ?| ? Stage three ? + -+ + ---+| ?15-29 ?| ?Stage four ? | ? Stage four ?+ --+ -+ ----+| ?<15 (or dialysis) ? ?| ?Stage five ? | ? Stage five ?+ --+ -+ ----+ *Each stage assumes the associated GFR level has been in effect for at least three months. ?Stages 1 to 5, with or without kidney disease, indicate chronic kidney disease. Notes: Determination of stages one and two (with eGFR >59mL/min/1.73 m2) requires estimation of kidney damage for at least three months as defined by structural or functional abnormalities of the kidney, manifested by either:Pathological abnormalities or Markers of kidney damage (including abnormalities in the composition of the blood or urine or abnormalities in imaging tests). [facility] Emrhe9462-60-54 09:54:00* Test Item Value Reference Range Interpretation Comme nts PHOSPHORUS (test code = 8131624083) 4.0 mg/dL 2.5-5 Lab Interpretation (test cod e = 12151-2) Normal [facility] Cdoja2158-12-51 09:54:00* Test Item Value Reference Range Interpretation Comme nts MAGNESIUM (test code = 1958580138) 1.9 mg/dL 1.7-2.4 Lab Interpretation (test cod e = 73375-9) Normal [facility] (Na, K, Cl, CO2, Glucose, BUN, Creatinine, Ca)2019-10-28 09:54:00* Test Item Value Reference Range Interpretation Comme nts NA (test code = 8050003047) 141 mmol/L 135-145 K (test code = 3477298748) 4.0 mmol/L 3.5-5 CL (test code = 3785526490) 107 mmol/L 98-108 CO2 TOTAL (test code = 7184620845) 23 mmol/L 23-31 AGAP (test code = 1985427663) 2-16 BUN (test code = 6843712606) 7 mg/dL 7-23 GLUCOSE (test code = 4609811510) 99 mg/dL 70-110 CREATININE (test code = 1868301197) 0.61 mg/dL 0.6-1.25 CALCIUM (test code = 5129689184) 9.4 mg/dL 8.6-10.6 eGFR Calculation (Non-) (test code = 0037681158) mL/min/1.73m2 eGFR Calculation () (test code = 9981983029) mL/min/1.73m2 BEVERLY (test code = BEVERLY) Association of Glomerular Filtration Rate (GFR) and Staging of Kidney Disease* + -+ + ---+| GFR (mL/min/1.73 m2) ?| With Kidney Damage ?| ?Without Kidney Damage+ -------+ ------+ ---------+| ?>90 ?| ?Stage one ?| ? Normal ?+ --+ -+ ----+| ?60-89 ?| ?Stage two ?| ? Decreased GFR ? + -+ + ---+| ?30-59 ?| ?Stage three ?| ? Stage three ? + -+ + ---+| ?15-29 ?| ?Stage four ? | ? Stage four ?+ --+ -+ ----+| ?<15 (or dialysis) ? ?| ?Stage five ? | ? Stage five ?+ --+ -+ ----+ *Each stage assumes the associated GFR level has been in effect for at least three months. ?Stages 1 to 5, with or without kidney disease, indicate chronic kidney disease. Notes: Determination of stages one and two (with eGFR >59mL/min/1.73 m2) requires estimation of kidney damage for at least three months as defined by structural or functional abnormalities of the kidney, manifested by either:Pathological abnormalities or Markers of kidney damage (including abnormalities in the composition of the blood or urine or abnormalities in imaging tests). [facility] Yvufr9656-56-41 09:54:00* Test Item Value Reference Range Interpretation Comme nts PHOSPHORUS (test code = 1995320484) 4.0 mg/dL 2.5-5 Lab Interpretation (test cod e = 83754-7) Normal [facility] Egjgr3571-96-22 09:54:00* Test Item Value Reference Range Interpretation Comme nts MAGNESIUM (test code = 0647474706) 1.9 mg/dL 1.7-2.4 Lab Interpretation (test cod e = 87369-1) Normal [facility] (Na, K, Cl, CO2, Glucose, BUN, Creatinine, Ca)2019-10-28 09:54:00* Test Item Value Reference Range Interpretation Comme nts NA (test code = 1714200186) 141 mmol/L 135-145 K (test code = 9397310604) 4.0 mmol/L 3.5-5 CL (test code = 9189092499) 107 mmol/L 98-108 CO2 TOTAL (test code = 3978038812) 23 mmol/L 23-31 AGAP (test code = 2798498714) 2-16 BUN (test code = 3828454979) 7 mg/dL 7-23 GLUCOSE (test code = 6362655809) 99 mg/dL 70-110 CREATININE (test code = 7512494970) 0.61 mg/dL 0.6-1.25 CALCIUM (test code = 0515261566) 9.4 mg/dL 8.6-10.6 eGFR Calculation (Non-) (test code = 3078459056) mL/min/1.73m2 eGFR Calculation () (test code = 9958391424) mL/min/1.73m2 BEVERLY (test code = BEVERLY) Association of Glomerular Filtration Rate (GFR) and Staging of Kidney Disease* + -+ + ---+| GFR (mL/min/1.73 m2) ?| With Kidney Damage ?| ?Without Kidney Damage+ -------+ ------+ ---------+| ?>90 ?| ?Stage one ?| ? Normal ?+ --+ -+ ----+| ?60-89 ?| ?Stage two ?| ? Decreased GFR ? + -+ + ---+| ?30-59 ?| ?Stage three ?| ? Stage three ? + -+ + ---+| ?15-29 ?| ?Stage four ? | ? Stage four ?+ --+ -+ ----+| ?<15 (or dialysis) ? ?| ?Stage five ? | ? Stage five ?+ --+ -+ ----+ *Each stage assumes the associated GFR level has been in effect for at least three months. ?Stages 1 to 5, with or without kidney disease, indicate chronic kidney disease. Notes: Determination of stages one and two (with eGFR >59mL/min/1.73 m2) requires estimation of kidney damage for at least three months as defined by structural or functional abnormalities of the kidney, manifested by either:Pathological abnormalities or Markers of kidney damage (including abnormalities in the composition of the blood or urine or abnormalities in imaging tests). [facility] with Icuhlrxgvifd4219-47-05 09:32:00* Test Item Value Reference Range Interpretation Comme nts WBC (test code = 6690-2) See_Comment H [Automated message] The system which generated this result transmitted reference range: 4.20 - 10.70 10*3/?L. The reference range was not used to interpret this result as normal/abnormal. RBC (test code = 789-8) See_Comment [Automated message] The system which generated this result transmitted reference range: 4.26 - 5.52 10*6/?L. The reference range was not used to interpret this result as normal/abnormal. HGB (test code = 718-7) 14.6 g/dL 12.2-16.4 HCT (test code = 4544-3) 44.0 % 38.4-49.3 MCV (test code = 787-2) 88.7 fL 81.7-95.6 MCH (test code = 785-6) 29.4 pg 26.1-32.7 MCHC (test code = 786-4) 33.2 g/dL 31.2-35 RDW-SD (test code = 39562-3) 43.1 fL 38.5-51.6 RDW-CV (test code = 788-0) 13.3 % 12.1-15.4 PLT (test code = 777-3) See_Comment H [Automated message] The system which generated this result transmitted reference range: 150 - 328 10*3/?L. The reference range was not used to interpret this result as normal/abnormal. MPV (test code = 49781-8) 11.7 fL 9.8-13 NRBC/100 WBC (test code = 9938644472) See_Comment [Automated message] The system which generated this result transmitted reference range: 0.0 - 10.0 /100 WBCs. The reference range was not used to interpret this result as normal/abnormal. NRBC x10^3 (test code = 7096164685) <0.01 See_Comment [Automated message] The system which generated this result transmitted reference range: 10*3/?L. The reference range was not used to interpret this result as normal/abnormal. GRAN MAT (NEUT) % (test code = 770-8) 70.6 % IMM GRAN % (test code = 2430833929) 0.70 % LYMPH % (test code = 736-9) 20.7 % MONO % (test code = 5905-5) 6.9 % EOS % (test code = 713-8) 0.7 % BASO % (test code = 706-2) 0.4 % GRAN MAT x10^3(ANC) (test code = 6300560914) 10.71 10*3/uL 1.99-6.95 H IMM GRAN x10^3 (test code = 2785932163) 0.11 10*3/uL 0-0.06 H LYMPH x10^3 (test code = 731-0) 3.13 10*3/uL 1.09-3.23 MONO x10^3 (test code = 742-7) 1.04 10*3/uL 0.36-1.02 H EOS x10^3 (test code = 711-2) 0.10 10*3/uL 0.06-0.53 BASO x10^3 (test code = 704-7) 0.06 10*3/uL 0.01-0.09 Lab Interpretation (test code = 69716-8) Abnormal [facility] with Vwjxqmajjiib7913-96-98 09:32:00* Test Item Value Reference Range Interpretation Comme nts WBC (test code = 6690-2) See_Comment H [Automated message] The system which generated this result transmitted reference range: 4.20 - 10.70 10*3/?L. The reference range was not used to interpret this result as normal/abnormal. RBC (test code = 789-8) See_Comment [Automated message] The system which generated this result transmitted reference range: 4.26 - 5.52 10*6/?L. The reference range was not used to interpret this result as normal/abnormal. HGB (test code = 718-7) 14.6 g/dL 12.2-16.4 HCT (test code = 4544-3) 44.0 % 38.4-49.3 MCV (test code = 787-2) 88.7 fL 81.7-95.6 MCH (test code = 785-6) 29.4 pg 26.1-32.7 MCHC (test code = 786-4) 33.2 g/dL 31.2-35 RDW-SD (test code = 98639-7) 43.1 fL 38.5-51.6 RDW-CV (test code = 788-0) 13.3 % 12.1-15.4 PLT (test code = 777-3) See_Comment H [Automated message] The system which generated this result transmitted reference range: 150 - 328 10*3/?L. The reference range was not used to interpret this result as normal/abnormal. MPV (test code = 35192-8) 11.7 fL 9.8-13 NRBC/100 WBC (test code = 7749912080) See_Comment [Automated message] The system which generated this result transmitted reference range: 0.0 - 10.0 /100 WBCs. The reference range was not used to interpret this result as normal/abnormal. NRBC x10^3 (test code = 1275550170) <0.01 See_Comment [Automated message] The system which generated this result transmitted reference range: 10*3/?L. The reference range was not used to interpret this result as normal/abnormal. GRAN MAT (NEUT) % (test code = 770-8) 70.6 % IMM GRAN % (test code = 0103545474) 0.70 % LYMPH % (test code = 736-9) 20.7 % MONO % (test code = 5905-5) 6.9 % EOS % (test code = 713-8) 0.7 % BASO % (test code = 706-2) 0.4 % GRAN MAT x10^3(ANC) (test code = 8977499064) 10.71 10*3/uL 1.99-6.95 H IMM GRAN x10^3 (test code = 0010244882) 0.11 10*3/uL 0-0.06 H LYMPH x10^3 (test code = 731-0) 3.13 10*3/uL 1.09-3.23 MONO x10^3 (test code = 742-7) 1.04 10*3/uL 0.36-1.02 H EOS x10^3 (test code = 711-2) 0.10 10*3/uL 0.06-0.53 BASO x10^3 (test code = 704-7) 0.06 10*3/uL 0.01-0.09 Lab Interpretation (test code = 76879-0) Abnormal [facility] with Wgttiyzflcss1072-18-00 09:32:00* Test Item Value Reference Range Interpretation Comme nts WBC (test code = 6690-2) See_Comment H [Automated message] The system which generated this result transmitted reference range: 4.20 - 10.70 10*3/?L. The reference range was not used to interpret this result as normal/abnormal. RBC (test code = 789-8) See_Comment [Automated message] The system which generated this result transmitted reference range: 4.26 - 5.52 10*6/?L. The reference range was not used to interpret this result as normal/abnormal. HGB (test code = 718-7) 14.6 g/dL 12.2-16.4 HCT (test code = 4544-3) 44.0 % 38.4-49.3 MCV (test code = 787-2) 88.7 fL 81.7-95.6 MCH (test code = 785-6) 29.4 pg 26.1-32.7 MCHC (test code = 786-4) 33.2 g/dL 31.2-35 RDW-SD (test code = 30599-9) 43.1 fL 38.5-51.6 RDW-CV (test code = 788-0) 13.3 % 12.1-15.4 PLT (test code = 777-3) See_Comment H [Automated message] The system which generated this result transmitted reference range: 150 - 328 10*3/?L. The reference range was not used to interpret this result as normal/abnormal. MPV (test code = 82925-5) 11.7 fL 9.8-13 NRBC/100 WBC (test code = 2959963225) See_Comment [Automated message] The system which generated this result transmitted reference range: 0.0 - 10.0 /100 WBCs. The reference range was not used to interpret this result as normal/abnormal. NRBC x10^3 (test code = 9106099289) <0.01 See_Comment [Automated message] The system which generated this result transmitted reference range: 10*3/?L. The reference range was not used to interpret this result as normal/abnormal. GRAN MAT (NEUT) % (test code = 770-8) 70.6 % IMM GRAN % (test code = 4006917857) 0.70 % LYMPH % (test code = 736-9) 20.7 % MONO % (test code = 5905-5) 6.9 % EOS % (test code = 713-8) 0.7 % BASO % (test code = 706-2) 0.4 % GRAN MAT x10^3(ANC) (test code = 0535197996) 10.71 10*3/uL 1.99-6.95 H IMM GRAN x10^3 (test code = 8456623392) 0.11 10*3/uL 0-0.06 H LYMPH x10^3 (test code = 731-0) 3.13 10*3/uL 1.09-3.23 MONO x10^3 (test code = 742-7) 1.04 10*3/uL 0.36-1.02 H EOS x10^3 (test code = 711-2) 0.10 10*3/uL 0.06-0.53 BASO x10^3 (test code = 704-7) 0.06 10*3/uL 0.01-0.09 Lab Interpretation (test code = 63632-1) Abnormal [facility] with Tgmeldzwtxcs9239-72-51 09:32:00* Test Item Value Reference Range Interpretation Comme nts WBC (test code = 6690-2) See_Comment H [Automated message] The system which generated this result transmitted reference range: 4.20 - 10.70 10*3/?L. The reference range was not used to interpret this result as normal/abnormal. RBC (test code = 789-8) See_Comment [Automated message] The system which generated this result transmitted reference range: 4.26 - 5.52 10*6/?L. The reference range was not used to interpret this result as normal/abnormal. HGB (test code = 718-7) 14.6 g/dL 12.2-16.4 HCT (test code = 4544-3) 44.0 % 38.4-49.3 MCV (test code = 787-2) 88.7 fL 81.7-95.6 MCH (test code = 785-6) 29.4 pg 26.1-32.7 MCHC (test code = 786-4) 33.2 g/dL 31.2-35 RDW-SD (test code = 58189-1) 43.1 fL 38.5-51.6 RDW-CV (test code = 788-0) 13.3 % 12.1-15.4 PLT (test code = 777-3) See_Comment H [Automated message] The system which generated this result transmitted reference range: 150 - 328 10*3/?L. The reference range was not used to interpret this result as normal/abnormal. MPV (test code = 72524-9) 11.7 fL 9.8-13 NRBC/100 WBC (test code = 2946638616) See_Comment [Automated message] The system which generated this result transmitted reference range: 0.0 - 10.0 /100 WBCs. The reference range was not used to interpret this result as normal/abnormal. NRBC x10^3 (test code = 8946124004) <0.01 See_Comment [Automated message] The system which generated this result transmitted reference range: 10*3/?L. The reference range was not used to interpret this result as normal/abnormal. GRAN MAT (NEUT) % (test code = 770-8) 70.6 % IMM GRAN % (test code = 0383987652) 0.70 % LYMPH % (test code = 736-9) 20.7 % MONO % (test code = 5905-5) 6.9 % EOS % (test code = 713-8) 0.7 % BASO % (test code = 706-2) 0.4 % GRAN MAT x10^3(ANC) (test code = 3719749606) 10.71 10*3/uL 1.99-6.95 H IMM GRAN x10^3 (test code = 6971805296) 0.11 10*3/uL 0-0.06 H LYMPH x10^3 (test code = 731-0) 3.13 10*3/uL 1.09-3.23 MONO x10^3 (test code = 742-7) 1.04 10*3/uL 0.36-1.02 H EOS x10^3 (test code = 711-2) 0.10 10*3/uL 0.06-0.53 BASO x10^3 (test code = 704-7) 0.06 10*3/uL 0.01-0.09 Lab Interpretation (test code = 84608-0) Abnormal [facility] with Rbwncufcoxzv5786-69-00 09:32:00* Test Item Value Reference Range Interpretation Comme nts WBC (test code = 6690-2) See_Comment H [Automated message] The system which generated this result transmitted reference range: 4.20 - 10.70 10*3/?L. The reference range was not used to interpret this result as normal/abnormal. RBC (test code = 789-8) See_Comment [Automated message] The system which generated this result transmitted reference range: 4.26 - 5.52 10*6/?L. The reference range was not used to interpret this result as normal/abnormal. HGB (test code = 718-7) 14.6 g/dL 12.2-16.4 HCT (test code = 4544-3) 44.0 % 38.4-49.3 MCV (test code = 787-2) 88.7 fL 81.7-95.6 MCH (test code = 785-6) 29.4 pg 26.1-32.7 MCHC (test code = 786-4) 33.2 g/dL 31.2-35 RDW-SD (test code = 72381-4) 43.1 fL 38.5-51.6 RDW-CV (test code = 788-0) 13.3 % 12.1-15.4 PLT (test code = 777-3) See_Comment H [Automated message] The system which generated this result transmitted reference range: 150 - 328 10*3/?L. The reference range was not used to interpret this result as normal/abnormal. MPV (test code = 53245-2) 11.7 fL 9.8-13 NRBC/100 WBC (test code = 2060111173) See_Comment [Automated message] The system which generated this result transmitted reference range: 0.0 - 10.0 /100 WBCs. The reference range was not used to interpret this result as normal/abnormal. NRBC x10^3 (test code = 4829781271) <0.01 See_Comment [Automated message] The system which generated this result transmitted reference range: 10*3/?L. The reference range was not used to interpret this result as normal/abnormal. GRAN MAT (NEUT) % (test code = 770-8) 70.6 % IMM GRAN % (test code = 8349097931) 0.70 % LYMPH % (test code = 736-9) 20.7 % MONO % (test code = 5905-5) 6.9 % EOS % (test code = 713-8) 0.7 % BASO % (test code = 706-2) 0.4 % GRAN MAT x10^3(ANC) (test code = 9101964662) 10.71 10*3/uL 1.99-6.95 H IMM GRAN x10^3 (test code = 9669475045) 0.11 10*3/uL 0-0.06 H LYMPH x10^3 (test code = 731-0) 3.13 10*3/uL 1.09-3.23 MONO x10^3 (test code = 742-7) 1.04 10*3/uL 0.36-1.02 H EOS x10^3 (test code = 711-2) 0.10 10*3/uL 0.06-0.53 BASO x10^3 (test code = 704-7) 0.06 10*3/uL 0.01-0.09 Lab Interpretation (test code = 74386-3) Abnormal [facility] with Qzidxlvwciuw3088-64-06 09:32:00* Test Item Value Reference Range Interpretation Comme nts WBC (test code = 6690-2) See_Comment H [Automated message] The system which generated this result transmitted reference range: 4.20 - 10.70 10*3/?L. The reference range was not used to interpret this result as normal/abnormal. RBC (test code = 789-8) See_Comment [Automated message] The system which generated this result transmitted reference range: 4.26 - 5.52 10*6/?L. The reference range was not used to interpret this result as normal/abnormal. HGB (test code = 718-7) 14.6 g/dL 12.2-16.4 HCT (test code = 4544-3) 44.0 % 38.4-49.3 MCV (test code = 787-2) 88.7 fL 81.7-95.6 MCH (test code = 785-6) 29.4 pg 26.1-32.7 MCHC (test code = 786-4) 33.2 g/dL 31.2-35 RDW-SD (test code = 90760-9) 43.1 fL 38.5-51.6 RDW-CV (test code = 788-0) 13.3 % 12.1-15.4 PLT (test code = 777-3) See_Comment H [Automated message] The system which generated this result transmitted reference range: 150 - 328 10*3/?L. The reference range was not used to interpret this result as normal/abnormal. MPV (test code = 33116-2) 11.7 fL 9.8-13 NRBC/100 WBC (test code = 7919060490) See_Comment [Automated message] The system which generated this result transmitted reference range: 0.0 - 10.0 /100 WBCs. The reference range was not used to interpret this result as normal/abnormal. NRBC x10^3 (test code = 2931308695) <0.01 See_Comment [Automated message] The system which generated this result transmitted reference range: 10*3/?L. The reference range was not used to interpret this result as normal/abnormal. GRAN MAT (NEUT) % (test code = 770-8) 70.6 % IMM GRAN % (test code = 3798942595) 0.70 % LYMPH % (test code = 736-9) 20.7 % MONO % (test code = 5905-5) 6.9 % EOS % (test code = 713-8) 0.7 % BASO % (test code = 706-2) 0.4 % GRAN MAT x10^3(ANC) (test code = 3951677808) 10.71 10*3/uL 1.99-6.95 H IMM GRAN x10^3 (test code = 0756330840) 0.11 10*3/uL 0-0.06 H LYMPH x10^3 (test code = 731-0) 3.13 10*3/uL 1.09-3.23 MONO x10^3 (test code = 742-7) 1.04 10*3/uL 0.36-1.02 H EOS x10^3 (test code = 711-2) 0.10 10*3/uL 0.06-0.53 BASO x10^3 (test code = 704-7) 0.06 10*3/uL 0.01-0.09 Lab Interpretation (test code = 37924-7) Abnormal [facility] with Lyuiofbevnuv8407-84-45 09:32:00* Test Item Value Reference Range Interpretation Comme nts WBC (test code = 6690-2) See_Comment H [Automated message] The system which generated this result transmitted reference range: 4.20 - 10.70 10*3/?L. The reference range was not used to interpret this result as normal/abnormal. RBC (test code = 789-8) See_Comment [Automated message] The system which generated this result transmitted reference range: 4.26 - 5.52 10*6/?L. The reference range was not used to interpret this result as normal/abnormal. HGB (test code = 718-7) 14.6 g/dL 12.2-16.4 HCT (test code = 4544-3) 44.0 % 38.4-49.3 MCV (test code = 787-2) 88.7 fL 81.7-95.6 MCH (test code = 785-6) 29.4 pg 26.1-32.7 MCHC (test code = 786-4) 33.2 g/dL 31.2-35 RDW-SD (test code = 74499-4) 43.1 fL 38.5-51.6 RDW-CV (test code = 788-0) 13.3 % 12.1-15.4 PLT (test code = 777-3) See_Comment H [Automated message] The system which generated this result transmitted reference range: 150 - 328 10*3/?L. The reference range was not used to interpret this result as normal/abnormal. MPV (test code = 00711-6) 11.7 fL 9.8-13 NRBC/100 WBC (test code = 0561824048) See_Comment [Automated message] The system which generated this result transmitted reference range: 0.0 - 10.0 /100 WBCs. The reference range was not used to interpret this result as normal/abnormal. NRBC x10^3 (test code = 9166654734) <0.01 See_Comment [Automated message] The system which generated this result transmitted reference range: 10*3/?L. The reference range was not used to interpret this result as normal/abnormal. GRAN MAT (NEUT) % (test code = 770-8) 70.6 % IMM GRAN % (test code = 6215898192) 0.70 % LYMPH % (test code = 736-9) 20.7 % MONO % (test code = 5905-5) 6.9 % EOS % (test code = 713-8) 0.7 % BASO % (test code = 706-2) 0.4 % GRAN MAT x10^3(ANC) (test code = 3152974076) 10.71 10*3/uL 1.99-6.95 H IMM GRAN x10^3 (test code = 1298206708) 0.11 10*3/uL 0-0.06 H LYMPH x10^3 (test code = 731-0) 3.13 10*3/uL 1.09-3.23 MONO x10^3 (test code = 742-7) 1.04 10*3/uL 0.36-1.02 H EOS x10^3 (test code = 711-2) 0.10 10*3/uL 0.06-0.53 BASO x10^3 (test code = 704-7) 0.06 10*3/uL 0.01-0.09 Lab Interpretation (test code = 86237-2) Abnormal [facility] with Ucondvffoeed1993-27-80 09:32:00* Test Item Value Reference Range Interpretation Comme nts WBC (test code = 6690-2) See_Comment H [Automated message] The system which generated this result transmitted reference range: 4.20 - 10.70 10*3/?L. The reference range was not used to interpret this result as normal/abnormal. RBC (test code = 789-8) See_Comment [Automated message] The system which generated this result transmitted reference range: 4.26 - 5.52 10*6/?L. The reference range was not used to interpret this result as normal/abnormal. HGB (test code = 718-7) 14.6 g/dL 12.2-16.4 HCT (test code = 4544-3) 44.0 % 38.4-49.3 MCV (test code = 787-2) 88.7 fL 81.7-95.6 MCH (test code = 785-6) 29.4 pg 26.1-32.7 MCHC (test code = 786-4) 33.2 g/dL 31.2-35 RDW-SD (test code = 29754-3) 43.1 fL 38.5-51.6 RDW-CV (test code = 788-0) 13.3 % 12.1-15.4 PLT (test code = 777-3) See_Comment H [Automated message] The system which generated this result transmitted reference range: 150 - 328 10*3/?L. The reference range was not used to interpret this result as normal/abnormal. MPV (test code = 50929-6) 11.7 fL 9.8-13 NRBC/100 WBC (test code = 0512591049) See_Comment [Automated message] The system which generated this result transmitted reference range: 0.0 - 10.0 /100 WBCs. The reference range was not used to interpret this result as normal/abnormal. NRBC x10^3 (test code = 3031398629) <0.01 See_Comment [Automated message] The system which generated this result transmitted reference range: 10*3/?L. The reference range was not used to interpret this result as normal/abnormal. GRAN MAT (NEUT) % (test code = 770-8) 70.6 % IMM GRAN % (test code = 8014381399) 0.70 % LYMPH % (test code = 736-9) 20.7 % MONO % (test code = 5905-5) 6.9 % EOS % (test code = 713-8) 0.7 % BASO % (test code = 706-2) 0.4 % GRAN MAT x10^3(ANC) (test code = 7176986569) 10.71 10*3/uL 1.99-6.95 H IMM GRAN x10^3 (test code = 4299666217) 0.11 10*3/uL 0-0.06 H LYMPH x10^3 (test code = 731-0) 3.13 10*3/uL 1.09-3.23 MONO x10^3 (test code = 742-7) 1.04 10*3/uL 0.36-1.02 H EOS x10^3 (test code = 711-2) 0.10 10*3/uL 0.06-0.53 BASO x10^3 (test code = 704-7) 0.06 10*3/uL 0.01-0.09 Lab Interpretation (test code = 74710-7) Abnormal [facility] with Euznnpxcfkcc8136-50-33 09:32:00* Test Item Value Reference Range Interpretation Comme nts WBC (test code = 6690-2) See_Comment H [Automated message] The system which generated this result transmitted reference range: 4.20 - 10.70 10*3/?L. The reference range was not used to interpret this result as normal/abnormal. RBC (test code = 789-8) See_Comment [Automated message] The system which generated this result transmitted reference range: 4.26 - 5.52 10*6/?L. The reference range was not used to interpret this result as normal/abnormal. HGB (test code = 718-7) 14.6 g/dL 12.2-16.4 HCT (test code = 4544-3) 44.0 % 38.4-49.3 MCV (test code = 787-2) 88.7 fL 81.7-95.6 MCH (test code = 785-6) 29.4 pg 26.1-32.7 MCHC (test code = 786-4) 33.2 g/dL 31.2-35 RDW-SD (test code = 00563-8) 43.1 fL 38.5-51.6 RDW-CV (test code = 788-0) 13.3 % 12.1-15.4 PLT (test code = 777-3) See_Comment H [Automated message] The system which generated this result transmitted reference range: 150 - 328 10*3/?L. The reference range was not used to interpret this result as normal/abnormal. MPV (test code = 91400-3) 11.7 fL 9.8-13 NRBC/100 WBC (test code = 1176093290) See_Comment [Automated message] The system which generated this result transmitted reference range: 0.0 - 10.0 /100 WBCs. The reference range was not used to interpret this result as normal/abnormal. NRBC x10^3 (test code = 9316763879) <0.01 See_Comment [Automated message] The system which generated this result transmitted reference range: 10*3/?L. The reference range was not used to interpret this result as normal/abnormal. GRAN MAT (NEUT) % (test code = 770-8) 70.6 % IMM GRAN % (test code = 4685726393) 0.70 % LYMPH % (test code = 736-9) 20.7 % MONO % (test code = 5905-5) 6.9 % EOS % (test code = 713-8) 0.7 % BASO % (test code = 706-2) 0.4 % GRAN MAT x10^3(ANC) (test code = 4966093509) 10.71 10*3/uL 1.99-6.95 H IMM GRAN x10^3 (test code = 0461142390) 0.11 10*3/uL 0-0.06 H LYMPH x10^3 (test code = 731-0) 3.13 10*3/uL 1.09-3.23 MONO x10^3 (test code = 742-7) 1.04 10*3/uL 0.36-1.02 H EOS x10^3 (test code = 711-2) 0.10 10*3/uL 0.06-0.53 BASO x10^3 (test code = 704-7) 0.06 10*3/uL 0.01-0.09 Lab Interpretation (test code = 83307-6) [facility] (ALB,T.PRO,BILI T,BU/BC,ALT,AST,ALK PHOS)2019-10-28 06:11:00* Test Item Value Reference Range Interpretation Comme nts TOTAL BILI (test code = 2804036250) 0.8 mg/dL 0.1-1.1 BILI UNCON (test code = 3308429113) 0.8 mg/dL 0.1-1.1 BILI CONJ (test code = 6657461692) 0.0 mg/dL 0-0.3 T PROTEIN (test code = 2029679691) 7.6 g/dL 6.3-8.2 ALBUMIN (test code = 0285352421) 4.2 g/dL 3.5-5 ALK PHOS (test code = 0834514920) 66 U/L 34-122 Slight hemolysis ALTv (test code = 1742-6) 96 U/L 5-50 H AST(SGOT) (test code = 8582865886) 46 U/L 13-40 H Slight hemolysis Lab Interpretation (test code = 35485-1) [facility]268[facility] (ALB,T.PRO,BILI T,BU/BC,ALT,AST,ALK PHOS)2019-10-28 06:11:00* Test Item Value Reference Range Interpretation Comme nts TOTAL BILI (test code = 8718894085) 0.8 mg/dL 0.1-1.1 BILI UNCON (test code = 1171035440) 0.8 mg/dL 0.1-1.1 BILI CONJ (test code = 0762830134) 0.0 mg/dL 0-0.3 T PROTEIN (test code = 9798372751) 7.6 g/dL 6.3-8.2 ALBUMIN (test code = 5569889852) 4.2 g/dL 3.5-5 ALK PHOS (test code = 2793402910) 66 U/L 34-122 Slight hemolysis ALTv (test code = 1742-6) 96 U/L 5-50 H AST(SGOT) (test code = 0777472937) 46 U/L 13-40 H Slight hemolysis Lab Interpretation (test code = 39659-9) [facility] (ALB,T.PRO,BILI T,BU/BC,ALT,AST,ALK PHOS)2019-10-28 06:11:00* Test Item Value Reference Range Interpretation Comme nts TOTAL BILI (test code = 2257406124) 0.8 mg/dL 0.1-1.1 BILI UNCON (test code = 1859762164) 0.8 mg/dL 0.1-1.1 BILI CONJ (test code = 6784958767) 0.0 mg/dL 0-0.3 T PROTEIN (test code = 6842295826) 7.6 g/dL 6.3-8.2 ALBUMIN (test code = 8332641643) 4.2 g/dL 3.5-5 ALK PHOS (test code = 0865823028) 66 U/L 34-122 Slight hemolysis ALTv (test code = 1742-6) 96 U/L 5-50 H AST(SGOT) (test code = 1240012627) 46 U/L 13-40 H Slight hemolysis Lab Interpretation (test code = 56320-5) [facility] (ALB,T.PRO,BILI T,BU/BC,ALT,AST,ALK PHOS)2019-10-28 06:11:00* Test Item Value Reference Range Interpretation Comme nts TOTAL BILI (test code = 4776975455) 0.8 mg/dL 0.1-1.1 BILI UNCON (test code = 4941955334) 0.8 mg/dL 0.1-1.1 BILI CONJ (test code = 5233568897) 0.0 mg/dL 0-0.3 T PROTEIN (test code = 6073804790) 7.6 g/dL 6.3-8.2 ALBUMIN (test code = 7054332730) 4.2 g/dL 3.5-5 ALK PHOS (test code = 4336816941) 66 U/L 34-122 Slight hemolysis ALTv (test code = 1742-6) 96 U/L 5-50 H AST(SGOT) (test code = 9828483491) 46 U/L 13-40 H Slight hemolysis Lab Interpretation (test code = 58414-7) [facility]87273[facility] (ALB,T.PRO,BILI T,BU/BC,ALT,AST,ALK PHOS)2019-10-28 06:11:00* Test Item Value Reference Range Interpretation Comme nts TOTAL BILI (test code = 7303133587) 0.8 mg/dL 0.1-1.1 BILI UNCON (test code = 3682295022) 0.8 mg/dL 0.1-1.1 BILI CONJ (test code = 5441724666) 0.0 mg/dL 0-0.3 T PROTEIN (test code = 4405118043) 7.6 g/dL 6.3-8.2 ALBUMIN (test code = 7519686725) 4.2 g/dL 3.5-5 ALK PHOS (test code = 3706466199) 66 U/L 34-122 Slight hemolysis ALTv (test code = 1742-6) 96 U/L 5-50 H AST(SGOT) (test code = 8551558164) 46 U/L 13-40 H Slight hemolysis Lab Interpretation (test code = 44646-2) [facility]98560[facility] (ALB,T.PRO,BILI T,BU/BC,ALT,AST,ALK PHOS)2019-10-28 06:11:00* Test Item Value Reference Range Interpretation Comme nts TOTAL BILI (test code = 2913302684) 0.8 mg/dL 0.1-1.1 BILI UNCON (test code = 3415241631) 0.8 mg/dL 0.1-1.1 BILI CONJ (test code = 2542961947) 0.0 mg/dL 0-0.3 T PROTEIN (test code = 2486233225) 7.6 g/dL 6.3-8.2 ALBUMIN (test code = 5959251126) 4.2 g/dL 3.5-5 ALK PHOS (test code = 1249429079) 66 U/L 34-122 Slight hemolysis ALTv (test code = 1742-6) 96 U/L 5-50 H AST(SGOT) (test code = 1489784783) 46 U/L 13-40 H Slight hemolysis Lab Interpretation (test code = 61362-5) [facility]06861[facility] (ALB,T.PRO,BILI T,BU/BC,ALT,AST,ALK PHOS)2019-10-28 06:11:00* Test Item Value Reference Range Interpretation Comme nts TOTAL BILI (test code = 4735452633) 0.8 mg/dL 0.1-1.1 BILI UNCON (test code = 4785501824) 0.8 mg/dL 0.1-1.1 BILI CONJ (test code = 3189810625) 0.0 mg/dL 0-0.3 T PROTEIN (test code = 2457774066) 7.6 g/dL 6.3-8.2 ALBUMIN (test code = 6090601532) 4.2 g/dL 3.5-5 ALK PHOS (test code = 1475027187) 66 U/L 34-122 Slight hemolysis ALTv (test code = 1742-6) 96 U/L 5-50 H AST(SGOT) (test code = 0873097196) 46 U/L 13-40 H Slight hemolysis Lab Interpretation (test code = 76870-9) [facility][id number][facility] (ALB,T.PRO,BILI T,BU/BC,ALT,AST,ALK PHOS)2019-10-28 06:11:00* Test Item Value Reference Range Interpretation Comme nts TOTAL BILI (test code = 7644149860) 0.8 mg/dL 0.1-1.1 BILI UNCON (test code = 0313866196) 0.8 mg/dL 0.1-1.1 BILI CONJ (test code = 0009273122) 0.0 mg/dL 0-0.3 T PROTEIN (test code = 7983255003) 7.6 g/dL 6.3-8.2 ALBUMIN (test code = 4179465481) 4.2 g/dL 3.5-5 ALK PHOS (test code = 1851075737) 66 U/L 34-122 Slight hemolysis ALTv (test code = 1742-6) 96 U/L 5-50 H AST(SGOT) (test code = 6995552228) 46 U/L 13-40 H Slight hemolysis Lab Interpretation (test code = 33826-8) [facility]59861[facility] (ALB,T.PRO,BILI T,BU/BC,ALT,AST,ALK PHOS)2019-10-28 06:11:00* Test Item Value Reference Range Interpretation Comme nts TOTAL BILI (test code = 8913377066) 0.8 mg/dL 0.1-1.1 BILI UNCON (test code = 7892942134) 0.8 mg/dL 0.1-1.1 BILI CONJ (test code = 6191516895) 0.0 mg/dL 0-0.3 T PROTEIN (test code = 0263654462) 7.6 g/dL 6.3-8.2 ALBUMIN (test code = 0468567902) 4.2 g/dL 3.5-5 ALK PHOS (test code = 6918130857) 66 U/L 34-122 Slight hemolysis ALTv (test code = 1742-6) 96 U/L 5-50 H AST(SGOT) (test code = 9602085793) 46 U/L 13-40 H Slight hemolysis Lab Interpretation (test code = 08377-7) [facility]14626[facility] (ALB,T.PRO,BILI T,BU/BC,ALT,AST,ALK PHOS)2019-10-28 06:11:00* Test Item Value Reference Range Interpretation Comme nts TOTAL BILI (test code = 3414684797) 0.8 mg/dL 0.1-1.1 BILI UNCON (test code = 3516454024) 0.8 mg/dL 0.1-1.1 BILI CONJ (test code = 6440498392) 0.0 mg/dL 0-0.3 T PROTEIN (test code = 0198959534) 7.6 g/dL 6.3-8.2 ALBUMIN (test code = 3968069535) 4.2 g/dL 3.5-5 ALK PHOS (test code = 4267565338) 66 U/L 34-122 Slight hemolysis ALTv (test code = 1742-6) 96 U/L 5-50 H AST(SGOT) (test code = 6315698094) 46 U/L 13-40 H Slight hemolysis Lab Interpretation (test code = 21107-2) [facility] (17694[facility] (ALB,T.PRO,BILI T,BU/BC,ALT,AST,ALK PHOS)2019-10-28 06:11:00* Test Item Value Reference Range Interpretation Comme nts TOTAL BILI (test code = 7034511277) 0.8 mg/dL 0.1-1.1 BILI UNCON (test code = 4950091049) 0.8 mg/dL 0.1-1.1 BILI CONJ (test code = 8607868989) 0.0 mg/dL 0-0.3 T PROTEIN (test code = 3194420265) 7.6 g/dL 6.3-8.2 ALBUMIN (test code = 6861919075) 4.2 g/dL 3.5-5 ALK PHOS (test code = 4935945773) 66 U/L 34-122 Slight hemolysis ALTv (test code = 1742-6) 96 U/L 5-50 H AST(SGOT) (test code = 4123390092) 46 U/L 13-40 H Slight hemolysis Lab Interpretation (test code = 90462-6) [facility]56029[facility] (ALB,T.PRO,BILI T,BU/BC,ALT,AST,ALK PHOS)2019-10-28 06:11:00* Test Item Value Reference Range Interpretation Comme nts TOTAL BILI (test code = 7271828147) 0.8 mg/dL 0.1-1.1 BILI UNCON (test code = 5450056695) 0.8 mg/dL 0.1-1.1 BILI CONJ (test code = 4728527067) 0.0 mg/dL 0-0.3 T PROTEIN (test code = 7643736725) 7.6 g/dL 6.3-8.2 ALBUMIN (test code = 2719809995) 4.2 g/dL 3.5-5 ALK PHOS (test code = 2045294140) 66 U/L 34-122 Slight hemolysis ALTv (test code = 1742-6) 96 U/L 5-50 H AST(SGOT) (test code = 2158735283) 46 U/L 13-40 H Slight hemolysis Lab Interpretation (test code = 85411-7) [facility]42867[facility] (ALB,T.PRO,BILI T,BU/BC,ALT,AST,ALK PHOS)2019-10-28 06:11:00* Test Item Value Reference Range Interpretation Comme nts TOTAL BILI (test code = 9756668710) 0.8 mg/dL 0.1-1.1 BILI UNCON (test code = 9696472712) 0.8 mg/dL 0.1-1.1 BILI CONJ (test code = 9042722777) 0.0 mg/dL 0-0.3 T PROTEIN (test code = 1355393201) 7.6 g/dL 6.3-8.2 ALBUMIN (test code = 0446379462) 4.2 g/dL 3.5-5 ALK PHOS (test code = 7482375276) 66 U/L 34-122 Slight hemolysis ALTv (test code = 1742-6) 96 U/L 5-50 H AST(SGOT) (test code = 9935814552) 46 U/L 13-40 H Slight hemolysis Lab Interpretation (test code = 01311-9) [facility] (78422[facility] (ALB,T.PRO,BILI T,BU/BC,ALT,AST,ALK PHOS)2019-10-28 06:11:00* Test Item Value Reference Range Interpretation Comme nts TOTAL BILI (test code = 0017040496) 0.8 mg/dL 0.1-1.1 BILI UNCON (test code = 3365734169) 0.8 mg/dL 0.1-1.1 BILI CONJ (test code = 9604582741) 0.0 mg/dL 0-0.3 T PROTEIN (test code = 9880920766) 7.6 g/dL 6.3-8.2 ALBUMIN (test code = 8120389502) 4.2 g/dL 3.5-5 ALK PHOS (test code = 7370679358) 66 U/L 34-122 Slight hemolysis ALTv (test code = 1742-6) 96 U/L 5-50 H AST(SGOT) (test code = 9819614674) 46 U/L 13-40 H Slight hemolysis Lab Interpretation (test code = 10828-1) [facility] (44829[facility] (ALB,T.PRO,BILI T,BU/BC,ALT,AST,ALK PHOS)2019-10-28 06:11:00* Test Item Value Reference Range Interpretation Comme nts TOTAL BILI (test code = 7545356483) 0.8 mg/dL 0.1-1.1 BILI UNCON (test code = 2266797598) 0.8 mg/dL 0.1-1.1 BILI CONJ (test code = 0838534064) 0.0 mg/dL 0-0.3 T PROTEIN (test code = 8085340441) 7.6 g/dL 6.3-8.2 ALBUMIN (test code = 7193518059) 4.2 g/dL 3.5-5 ALK PHOS (test code = 0527237415) 66 U/L 34-122 Slight hemolysis ALTv (test code = 1742-6) 96 U/L 5-50 H AST(SGOT) (test code = 9786420291) 46 U/L 13-40 H Slight hemolysis Lab Interpretation (test code = 71717-3) [facility] (99405[facility] (ALB,T.PRO,BILI T,BU/BC,ALT,AST,ALK PHOS)2019-10-28 06:11:00* Test Item Value Reference Range Interpretation Comme nts TOTAL BILI (test code = 4656368697) 0.8 mg/dL 0.1-1.1 BILI UNCON (test code = 3798744077) 0.8 mg/dL 0.1-1.1 BILI CONJ (test code = 3036103382) 0.0 mg/dL 0-0.3 T PROTEIN (test code = 6545962149) 7.6 g/dL 6.3-8.2 ALBUMIN (test code = 3491829323) 4.2 g/dL 3.5-5 ALK PHOS (test code = 6037420036) 66 U/L 34-122 Slight hemolysis ALTv (test code = 1742-6) 96 U/L 5-50 H AST(SGOT) (test code = 8900255030) 46 U/L 13-40 H Slight hemolysis Lab Interpretation (test code = 36566-1) [facility] (28271[facility] (ALB,T.PRO,BILI T,BU/BC,ALT,AST,ALK PHOS)2019-10-28 06:11:00* Test Item Value Reference Range Interpretation Comme nts TOTAL BILI (test code = 3933516635) 0.8 mg/dL 0.1-1.1 BILI UNCON (test code = 0018392688) 0.8 mg/dL 0.1-1.1 BILI CONJ (test code = 9739163306) 0.0 mg/dL 0-0.3 T PROTEIN (test code = 5018530385) 7.6 g/dL 6.3-8.2 ALBUMIN (test code = 5744737639) 4.2 g/dL 3.5-5 ALK PHOS (test code = 7188726766) 66 U/L 34-122 Slight hemolysis ALTv (test code = 1742-6) 96 U/L 5-50 H AST(SGOT) (test code = 3795980685) 46 U/L 13-40 H Slight hemolysis Lab Interpretation (test code = 54819-6) [facility] (82987[facility] (ALB,T.PRO,BILI T,BU/BC,ALT,AST,ALK PHOS)2019-10-28 06:11:00* Test Item Value Reference Range Interpretation Comme nts TOTAL BILI (test code = 3934987913) 0.8 mg/dL 0.1-1.1 BILI UNCON (test code = 5570976706) 0.8 mg/dL 0.1-1.1 BILI CONJ (test code = 3458544502) 0.0 mg/dL 0-0.3 T PROTEIN (test code = 5229364036) 7.6 g/dL 6.3-8.2 ALBUMIN (test code = 2926950643) 4.2 g/dL 3.5-5 ALK PHOS (test code = 1429838428) 66 U/L 34-122 Slight hemolysis ALTv (test code = 1742-6) 96 U/L 5-50 H AST(SGOT) (test code = 9809576361) 46 U/L 13-40 H Slight hemolysis Lab Interpretation (test code = 36137-9) [facility] (01730[facility] (ALB,T.PRO,BILI T,BU/BC,ALT,AST,ALK PHOS)2019-10-28 06:11:00* Test Item Value Reference Range Interpretation Comme nts TOTAL BILI (test code = 5466608951) 0.8 mg/dL 0.1-1.1 BILI UNCON (test code = 5120517767) 0.8 mg/dL 0.1-1.1 BILI CONJ (test code = 0229058072) 0.0 mg/dL 0-0.3 T PROTEIN (test code = 6541895819) 7.6 g/dL 6.3-8.2 ALBUMIN (test code = 8975191264) 4.2 g/dL 3.5-5 ALK PHOS (test code = 0951645705) 66 U/L 34-122 Slight hemolysis ALTv (test code = 1742-6) 96 U/L 5-50 H AST(SGOT) (test code = 0545349994) 46 U/L 13-40 H Slight hemolysis Lab Interpretation (test code = 85910-1) [facility] (95420[facility] (ALB,T.PRO,BILI T,BU/BC,ALT,AST,ALK PHOS)2019-10-28 06:11:00* Test Item Value Reference Range Interpretation Comme nts TOTAL BILI (test code = 8487577903) 0.8 mg/dL 0.1-1.1 BILI UNCON (test code = 4265270996) 0.8 mg/dL 0.1-1.1 BILI CONJ (test code = 5040581184) 0.0 mg/dL 0-0.3 T PROTEIN (test code = 0971974637) 7.6 g/dL 6.3-8.2 ALBUMIN (test code = 9391323072) 4.2 g/dL 3.5-5 ALK PHOS (test code = 0453256320) 66 U/L 34-122 Slight hemolysis ALTv (test code = 1742-6) 96 U/L 5-50 H AST(SGOT) (test code = 9504740834) 46 U/L 13-40 H Slight hemolysis Lab Interpretation (test code = 15090-8) [facility] (11376[facility] (ALB,T.PRO,BILI T,BU/BC,ALT,AST,ALK PHOS)2019-10-28 06:11:00* Test Item Value Reference Range Interpretation Comme nts TOTAL BILI (test code = 5599913392) 0.8 mg/dL 0.1-1.1 BILI UNCON (test code = 1956329143) 0.8 mg/dL 0.1-1.1 BILI CONJ (test code = 6913987328) 0.0 mg/dL 0-0.3 T PROTEIN (test code = 8650422229) 7.6 g/dL 6.3-8.2 ALBUMIN (test code = 2405833820) 4.2 g/dL 3.5-5 ALK PHOS (test code = 5005191349) 66 U/L 34-122 Slight hemolysis ALTv (test code = 1742-6) 96 U/L 5-50 H AST(SGOT) (test code = 2188949241) 46 U/L 13-40 H Slight hemolysis Lab Interpretation (test code = 83602-7) [facility] (01257[facility] (ALB,T.PRO,BILI T,BU/BC,ALT,AST,ALK PHOS)2019-10-28 06:11:00* Test Item Value Reference Range Interpretation Comme nts TOTAL BILI (test code = 4354933407) 0.8 mg/dL 0.1-1.1 BILI UNCON (test code = 5520036969) 0.8 mg/dL 0.1-1.1 BILI CONJ (test code = 1631548244) 0.0 mg/dL 0-0.3 T PROTEIN (test code = 0067984500) 7.6 g/dL 6.3-8.2 ALBUMIN (test code = 2300214446) 4.2 g/dL 3.5-5 ALK PHOS (test code = 9638680991) 66 U/L 34-122 Slight hemolysis ALTv (test code = 1742-6) 96 U/L 5-50 H AST(SGOT) (test code = 3293448347) 46 U/L 13-40 H Slight hemolysis Lab Interpretation (test code = 01159-5) [facility] (36620[facility] (ALB,T.PRO,BILI T,BU/BC,ALT,AST,ALK PHOS)2019-10-28 06:11:00* Test Item Value Reference Range Interpretation Comme nts TOTAL BILI (test code = 7905246277) 0.8 mg/dL 0.1-1.1 BILI UNCON (test code = 9062284519) 0.8 mg/dL 0.1-1.1 BILI CONJ (test code = 3674700178) 0.0 mg/dL 0-0.3 T PROTEIN (test code = 0352236101) 7.6 g/dL 6.3-8.2 ALBUMIN (test code = 4759133902) 4.2 g/dL 3.5-5 ALK PHOS (test code = 8594266758) 66 U/L 34-122 Slight hemolysis ALTv (test code = 1742-6) 96 U/L 5-50 H AST(SGOT) (test code = 7640901522) 46 U/L 13-40 H Slight hemolysis Lab Interpretation (test code = 29970-5) [facility] (96811[facility] (ALB,T.PRO,BILI T,BU/BC,ALT,AST,ALK PHOS)2019-10-28 06:11:00* Test Item Value Reference Range Interpretation Comme nts TOTAL BILI (test code = 8314492623) 0.8 mg/dL 0.1-1.1 BILI UNCON (test code = 7714709207) 0.8 mg/dL 0.1-1.1 BILI CONJ (test code = 8824133826) 0.0 mg/dL 0-0.3 T PROTEIN (test code = 4080204055) 7.6 g/dL 6.3-8.2 ALBUMIN (test code = 0429542819) 4.2 g/dL 3.5-5 ALK PHOS (test code = 8487077037) 66 U/L 34-122 Slight hemolysis ALTv (test code = 1742-6) 96 U/L 5-50 H AST(SGOT) (test code = 2274454389) 46 U/L 13-40 H Slight hemolysis Lab Interpretation (test code = 28253-7) [facility] (62987[facility] (ALB,T.PRO,BILI T,BU/BC,ALT,AST,ALK PHOS)2019-10-28 06:11:00* Test Item Value Reference Range Interpretation Comme nts TOTAL BILI (test code = 3971566461) 0.8 mg/dL 0.1-1.1 BILI UNCON (test code = 2562805114) 0.8 mg/dL 0.1-1.1 BILI CONJ (test code = 9264341956) 0.0 mg/dL 0-0.3 T PROTEIN (test code = 5371532974) 7.6 g/dL 6.3-8.2 ALBUMIN (test code = 2434157287) 4.2 g/dL 3.5-5 ALK PHOS (test code = 8968427434) 66 U/L 34-122 Slight hemolysis ALTv (test code = 1742-6) 96 U/L 5-50 H AST(SGOT) (test code = 0900944625) 46 U/L 13-40 H Slight hemolysis Lab Interpretation (test code = 55083-4) [facility] [id number] 04:32:30Fine perihilar and suprahilar opacities are likely edema although an earlypulmonary atypical infection may give a similar appearance.PROCEDURE: XR CHEST 1 VW CLINICAL INDICATION: covid COMPARISON: 10/26/2019 FINDINGS: The lungs are poor expanded with mild perihilar vascular congestion andfine suprahilar opacities. The right hemidiaphragm is elevated.No pleural effusion or pneumothorax is seen. The cardiomediastinal silhouette is normal. No acute bony abnormality. [facility], Radiant Results Inft User - 10/27/2019 11:33 PM CDTPROCEDURE: XR CHEST 1 VWCLINICAL INDICATION: covid COMPARISON: 10/26/2019FINDINGS:The lungs are poor expanded with mild perihilar vascular congestion andfine suprahilar opacities. The right hemidiaphragm is elevated.No pleural effusion or pneumothorax is seen. The cardiomediastinal silhouette is normal. No acute bony abnormality.IMPRESSIONFine perihilar and suprahilar opacities are likely edema although an earlypulmonary atypical infection may give a similar appearance.[facility] 1 [id number] 04:32:30Fine perihilar and suprahilar opacities are likely edema although an earlypulmonary atypical infection may give a similar appearance.PROCEDURE: XR CHEST 1 CLINICAL INDICATION: covid COMPARISON: 10/26/2019 FINDINGS: The lungs are poor expanded with mild perihilar vascular congestion andfine suprahilar opacities. The right hemidiaphragm is elevated.No pleural effusion or pneumothorax is seen. Thecardiomediastinal silhouette is normal. No acute bony abnormality. [facility], [facility] Results Inft User - 10/27/2019 11:33 PM CDTPROCEDURE: XR CHEST 1 CLINICAL INDICATION: covid COMPARISON: 10/26/2019FINDINGS:The lungs are poor expanded with mild perihilar vascular congestion andfine suprahilar opacities. The right hemidiaphragm is elevated.No pleural effusion or pneumothorax is seen. The cardiomediastinal silhouette is normal. No acute bony abnormality.IMPRESSIONFine perihilar and suprahilar opacities are likely edema although an earlypulmonary atypical infection may give a similar appearance.[facility] 1 [id number] 04:32:30Fine perihilar and suprahilar opacities are likely edema although an earlypulmonary atypical infection may give a similar appearance.PROCEDURE: XR CHEST 1 VW CLINICAL INDICATION: covid COMPARISON: 10/11 FINDINGS: The lungs are poor expanded with mild perihilar vascular congestion andfine suprahilar opacities. The right hemidiaphragm is elevated.No pleural effusion or pneumothorax is seen. Thecardiomediastinal silhouette is normal. No acute bony abnormality. [facility], [facility] Results Inft User - 10/27/2019 11:33 PM CDTPROCEDURE: XR CHEST 1 VWCLINICAL INDICATION: covid COMPARISON: 10/26/2019FINDINGS:The lungs are poor expanded with mild perihilar vascular congestion andfine suprahilar opacities. The right hemidiaphragm is elevated.No pleural effusion or pneumothorax is seen. The cardiomediastinal silhouette is normal. No acute bony abnormality.IMPRESSIONFine perihilar and suprahilar opacit ies are likely edema although an earlypulmonary atypical infection may give a similar appearance.[facility] 1 [id number] 04:32:30Fine perihilar and suprahilar opacities are likely edema although an earlypulmonary atypical infection may give a similar appearance.PROCEDURE: XR CHEST 1 VW CLINICAL INDICATION: covid COMPARISON: 10/26/2019 FINDINGS: The lungs are poor expanded with mild perihilar vascular congestion andfine suprahilar opacities. The right hemidiaphragm is elevated.No pleural effusion or pneumothorax is seen. Thecardiomediastinal silhouette is normal. No acute bony abnormality. [facility], [facility] Results Inft User - 10/27/2019 11:33 PM CDTPROCEDURE: XR CHEST 1 VWCLINICAL INDICATION: covid COMPARISON: 10/26/2019FINDINGS:The lungs are poor expanded with mild perihilar vascular congestion andfine suprahilar opacities. The right hemidiaphragm is elevated.No pleural effusion or pneumothorax is seen. The cardiomediastinal silhouette is normal. No acute bony abnormality.IMPRESSIONFine perihilar and suprahilar opacities are likely edema although an earlypulmonary atypical infection may give a similar appearance. [facility] [id number] 04:32:30Fine perihilar and suprahilar opacities are likely edema although an earlypulmonary atypical infection may give a similar appearance.PROCEDURE: XR CHEST 1 CLINICAL INDICATION: covid COMPARISON: 10/26/2019 FINDINGS: The lungs are poor expanded with mild perihilar vascular congestion andfine suprahilar opacities. The right hemidiaphragm is elevated.No pleural effusion or pneumothorax is seen. The cardiomediastinal silhouette is normal. No acute bony abnormality. [facility], [facility] Results Inft User - 10/27/2019 11:33 PM CDTPROCEDURE: XR CHEST 1 VWCLINICAL INDICATION: covid COMPARISON: 10/26/2019FINDINGS:The lungs are poor expanded with mild perihilar vascular congestion andfine suprahilar opacities. The right hemidiaphragm is elevated.No pleural effusion or pneumothorax is seen. The cardiomediastinal silhouette is normal. No acute bony abnormality.IMPRESSIONFine perihilar and suprahilar opacities are likely edema although an earlypulmonary atypical infection may give a similar appearance.[facility] 1 [id number] 04:32:30Fine perihilar and suprahilar opacities are likely edema although an earlypulmonary atypical infection may give a similar appearance.PROCEDURE: XR CHEST 1 CLINICAL INDICATION: covid COMPARISON: 10/26/2019 FINDINGS: The lungs are poor expanded with mild perihilar vascular congestion andfine suprahilar opacities. The right hemidiaphragm is elevated.No pleural effusion or pneumothorax is seen. Thecardiomediastinal silhouette is normal. No acute bony abnormality. [facility], [facility] Results Inft User - 10/27/2019 11:33 PM CDTPROCEDURE: XR CHEST 1 VWCLINICAL INDICATION: covid COMPARISON: 10/26/2019FINDINGS:The lungs are poor expanded with mild perihilar vascular congestion andfine suprahilar opacities. The right hemidiaphragm is elevated.No pleural effusion or pneumothorax is seen. The cardiomediastinal silhouette is normal. No acute bony abnormality.IMPRESSIONFine perihilar and suprahilar opacities are likely edema although an earlypulmonary atypical infection may give a similar appearance.[facility] 1 [id number] 04:32:30Fine perihilar and suprahilar opacities are likely edema although an earlypulmonary atypical infection may give a similar appearance.PROCEDURE: XR CHEST 1 CLINICAL INDICATION: covid COMPARISON: 10/11 FINDINGS: The lungs are poor expanded with mild perihilar vascular congestion andfine suprahilar opacities. The right hemidiaphragm is elevated.No pleural effusion or pneumothorax is seen. Thecardiomediastinal silhouette is normal. No acute bony abnormality. [facility], [facility] Results Inft User - 10/27/2019 11:33 PM CDTPROCEDURE: XR CHEST 1 VWCLINICAL INDICATION: covid COMPARISON: 10/26/2019FINDINGS:The lungs are poor expanded with mild perihilar vascular congestion andfine suprahilar opacities. The right hemidiaphragm is elevated.No pleural effusion or pneumothorax is seen. The cardiomediastinal silhouette is normal. No acute bony abnormality.IMPRESSIONFine perihilar and suprahilar opacit ies are likely edema although an earlypulmonary atypical infection may give a similar appearance.[facility] 1 [id number] 04:32:30Fine perihilar and suprahilar opacities are likely edema although an earlypulmonary atypical infection may give a similar appearance.PROCEDURE: XR CHEST 1 CLINICAL INDICATION: covid COMPARISON: 10/26/2019 FINDINGS: The lungs are poor expanded with mild perihilar vascular congestion andfine suprahilar opacities. The right hemidiaphragm is elevated.No pleural effusion or pneumothorax is seen. Thecardiomediastinal silhouette is normal. No acute bony abnormality. [facility], [facility] Results Inft User - 10/27/2019 11:33 PM CDTPROCEDURE: XR CHEST 1 VWCLINICAL INDICATION: covid COMPARISON: 10/26/2019FINDINGS:The lungs are poor expanded with mild perihilar vascular congestion andfine suprahilar opacities. The right hemidiaphragm is elevated.No pleural effusion or pneumothorax is seen. The cardiomediastinal silhouette is normal. No acute bony abnormality.IMPRESSIONFine perihilar and suprahilar opacities are likely edema although an earlypulmonary atypical infection may give a similar appearance. [facility] [id number] 04:32:30Fine perihilar and suprahilar opacities are likely edema although an earlypulmonary atypical infection may give a similar appearance.PROCEDURE: XR CHEST 1 CLINICAL INDICATION: covid COMPARISON: 10/26/2019 FINDINGS: The lungs are poor expanded with mild perihilar vascular congestion andfine suprahilar opacities. The right hemidiaphragm is elevated.No pleural effusion or pneumothorax is seen. The cardiomediastinal silhouette is normal. No acute bony abnormality. [facility], [facility] Results Inft User - 10/27/2019 11:33 PM CDTPROCEDURE: XR CHEST 1 VWCLINICAL INDICATION: covid COMPARISON: 10/26/2019FINDINGS:The lungs are poor expanded with mild perihilar vascular congestion andfine suprahilar opacities. The right hemidiaphragm is elevated.No pleural effusion or pneumothorax is seen. The cardiomediastinal silhouette is normal. No acute bony abnormality.IMPRESSIONFine perihilar and suprahilar opacities are likely edema although an earlypulmonary atypical infection may give a similar appearance.[facility] 1 [id number] 04:32:30Fine perihilar and suprahilar opacities are likely edema although an earlypulmonary atypical infection may give a similar appearance.PROCEDURE: XR CHEST 1 VW CLINICAL INDICATION: covid COMPARISON: 10/26/2019 FINDINGS: The lungs are poor expanded with mild perihilar vascular congestion andfine suprahilar opacities. The right hemidiaphragm is elevated.No pleural effusion or pneumothorax is seen. Thecardiomediastinal silhouette is normal. No acute bony abnormality. [facility], [facility]iant Results Inft User - 10/27/2019 11:33 PM CDTPROCEDURE: XR CHEST 1 VWCLINICAL INDICATION: covid COMPARISON: 10/26/2019FINDINGS:The lungs are poor expanded with mild perihilar vascular congestion andfine suprahilar opacities. The right hemidiaphragm is elevated.No pleural effusion or pneumothorax is seen. The cardiomediastinal silhouette is normal. No acute bony abnormality.IMPRESSIONFine perihilar and suprahilar opacities are likely edema although an earlypulmonary atypical infection may give a similar appearance.[facility] 1 [id number] 04:32:30Fine perihilar and suprahilar opacities are likely edema although an earlypulmonary atypical infection may give a similar appearance.PROCEDURE: XR CHEST 1 CLINICAL INDICATION: covid COMPARISON: 10/11 FINDINGS: The lungs are poor expanded with mild perihilar vascular congestion andfine suprahilar opacities. The right hemidiaphragm is elevated.No pleural effusion or pneumothorax is seen. Thecardiomediastinal silhouette is normal. No acute bony abnormality. [facility], [facility]iant Results Inft User - 10/27/2019 11:33 PM CDTPROCEDURE: XR CHEST 1 VWCLINICAL INDICATION: covid COMPARISON: 10/26/2019FINDINGS:The lungs are poor expanded with mild perihilar vascular congestion andfine suprahilar opacities. The right hemidiaphragm is elevated.No pleural effusion or pneumothorax is seen. The cardiomediastinal silhouette is normal. No acute bony abnormality.IMPRESSIONFine perihilar and suprahilar opacit ies are likely edema although an earlypulmonary atypical infection may give a similar appearance.[facility] [id number] 04:32:30Fine perihilar and suprahilar opacities are likely edema although an earlypulmonary atypical infection may give a similar appearance.PROCEDURE: XR CHEST 1 CLINICAL INDICATION: covid COMPARISON: 10/26/2019 FINDINGS: The lungs are poor expanded with mild perihilar vascular congestion andfine suprahilar opacities. The right hemidiaphragm is elevated.No pleural effusion or pneumothorax is seen. Thecardiomediastinal silhouette is normal. No acute bony abnormality. [facility], Radiant Results Inft User - 10/27/2019 11:33 PM CDTPROCEDURE: XR CHEST 1 VWCLINICAL INDICATION: covid COMPARISON: 10/26/2019FINDINGS:The lungs are poor expanded with mild perihilar vascular congestion andfine suprahilar opacities. The right hemidiaphragm is elevated.No pleural effusion or pneumothorax is seen. The cardiomediastinal silhouette is normal. No acute bony abnormality.IMPRESSIONFine perihilar and suprahilar opacities are likely edema although an earlypulmonary atypical infection may give a similar appearance. [facility] [id number] 04:32:30Fine perihilar and suprahilar opacities are likely edema although an earlypulmonary atypical infection may give a similar appearance.PROCEDURE: XR CHEST 1 CLINICAL INDICATION: covid COMPARISON: 10/26/2019 FINDINGS: The lungs are poor expanded with mild perihilar vascular congestion andfine suprahilar opacities. The right hemidiaphragm is elevated.No pleural effusion or pneumothorax is seen. The cardiomediastinal silhouette is normal. No acute bony abnormality. [facility], Radiant Results Inft User - 10/27/2019 11:33 PM CDTPROCEDURE: XR CHEST 1 VWCLINICAL INDICATION: covid COMPARISON: 10/26/2019FINDINGS:The lungs are poor expanded with mild perihilar vascular congestion andfine suprahilar opacities. The right hemidiaphragm is elevated.No pleural effusion or pneumothorax is seen. The cardiomediastinal silhouette is normal. No acute bony abnormality.IMPRESSIONFine perihilar and suprahilar opacities are likely edema although an earlypulmonary atypical infection may give a similar appearance.[facility] [id number] 04:32:30Fine perihilar and suprahilar opacities are likely edema although an earlypulmonary atypical infection may give a similar appearance.PROCEDURE: XR CHEST 1 CLINICAL INDICATION: covid COMPARISON: 10/26/2019 FINDINGS: The lungs are poor expanded with mild perihilar vascular congestion andfine suprahilar opacities. The right hemidiaphragm is elevated.No pleural effusion or pneumothorax is seen. Thecardiomediastinal silhouette is normal. No acute bony abnormality. [facility], Radiant Results Inft User - 10/27/2019 11:33 PM CDTPROCEDURE: XR CHEST 1 VWCLINICAL INDICATION: covid COMPARISON: 10/26/2019FINDINGS:The lungs are poor expanded with mild perihilar vascular congestion andfine suprahilar opacities. The right hemidiaphragm is elevated.No pleural effusion or pneumothorax is seen. The cardiomediastinal silhouette is normal. No acute bony abnormality.IMPRESSIONFine perihilar and suprahilar opacities are likely edema although an earlypulmonary atypical infection may give a similar appearance.[facility] [id number] 04:32:30Fine perihilar and suprahilar opacities are likely edema although an earlypulmonary atypical infection may give a similar appearance.PROCEDURE: XR CHEST 1 CLINICAL INDICATION: covid COMPARISON: 10/11 FINDINGS: The lungs are poor expanded with mild perihilar vascular congestion andfine suprahilar opacities. The right hemidiaphragm is elevated.No pleural effusion or pneumothorax is seen. Thecardiomediastinal silhouette is normal. No acute bony abnormality. [facility], [facility] Results Inft User - 10/27/2019 11:33 PM CDTPROCEDURE: XR CHEST 1 VWCLINICAL INDICATION: covid COMPARISON: 10/26/2019FINDINGS:The lungs are poor expanded with mild perihilar vascular congestion andfine suprahilar opacities. The right hemidiaphragm is elevated.No pleural effusion or pneumothorax is seen. The cardiomediastinal silhouette is normal. No acute bony abnormality.IMPRESSIONFine perihilar and suprahilar opacit ies are likely edema although an earlypulmonary atypical infection may give a similar appearance.[facility] [id number] 04:32:30Fine perihilar and suprahilar opacities are likely edema although an earlypulmonary atypical infection may give a similar appearance.PROCEDURE: XR CHEST 1 CLINICAL INDICATION: covid COMPARISON: 10/26/2019 FINDINGS: The lungs are poor expanded with mild perihilar vascular congestion andfine suprahilar opacities. The right hemidiaphragm is elevated.No pleural effusion or pneumothorax is seen. Thecardiomediastinal silhouette is normal. No acute bony abnormality. [facility], Radiant Results Inft User - 10/27/2019 11:33 PM CDTPROCEDURE: XR CHEST 1 VWCLINICAL INDICATION: covid COMPARISON: 10/26/2019FINDINGS:The lungs are poor expanded with mild perihilar vascular congestion andfine suprahilar opacities. The right hemidiaphragm is elevated.No pleural effusion or pneumothorax is seen. The cardiomediastinal silhouette is normal. No acute bony abnormality.IMPRESSIONFine perihilar and suprahilar opacities are likely edema although an earlypulmonary atypical infection may give a similar appearance. [facility] [id number] 04:32:30Fine perihilar and suprahilar opacities are likely edema although an earlypulmonary atypical infection may give a similar appearance.PROCEDURE: XR CHEST 1 CLINICAL INDICATION: covid COMPARISON: 10/26/2019 FINDINGS: The lungs are poor expanded with mild perihilar vascular congestion andfine suprahilar opacities. The right hemidiaphragm is elevated.No pleural effusion or pneumothorax is seen. The cardiomediastinal silhouette is normal. No acute bony abnormality. [facility], Radiant Results Inft User - 10/27/2019 11:33 PM CDTPROCEDURE: XR CHEST 1 VWCLINICAL INDICATION: covid COMPARISON: 10/26/2019FINDINGS:The lungs are poor expanded with mild perihilar vascular congestion andfine suprahilar opacities. The right hemidiaphragm is elevated.No pleural effusion or pneumothorax is seen. The cardiomediastinal silhouette is normal. No acute bony abnormality.IMPRESSIONFine perihilar and suprahilar opacities are likely edema although an earlypulmonary atypical infection may give a similar appearance.[facility] [id number] 04:32:30Fine perihilar and suprahilar opacities are likely edema although an earlypulmonary atypical infection may give a similar appearance.PROCEDURE: XR CHEST 1 VW CLINICAL INDICATION: covid COMPARISON: 10/26/2019 FINDINGS: The lungs are poor expanded with mild perihilar vascular congestion andfine suprahilar opacities. The right hemidiaphragm is elevated.No pleural effusion or pneumothorax is seen. Thecardiomediastinal silhouette is normal. No acute bony abnormality. [facility], Radiant Results Inft User - 10/27/2019 11:33 PM CDTPROCEDURE: XR CHEST 1 VWCLINICAL INDICATION: covid COMPARISON: 10/26/2019FINDINGS:The lungs are poor expanded with mild perihilar vascular congestion andfine suprahilar opacities. The right hemidiaphragm is elevated.No pleural effusion or pneumothorax is seen. The cardiomediastinal silhouette is normal. No acute bony abnormality.IMPRESSIONFine perihilar and suprahilar opacities are likely edema although an earlypulmonary atypical infection may give a similar appearance.[facility] 1 [id number] 04:32:30Fine perihilar and suprahilar opacities are likely edema although an earlypulmonary atypical infection may give a similar appearance.PROCEDURE: XR CHEST 1 CLINICAL INDICATION: covid COMPARISON: 10/11 FINDINGS: The lungs are poor expanded with mild perihilar vascular congestion andfine suprahilar opacities. The right hemidiaphragm is elevated.No pleural effusion or pneumothorax is seen. Thecardiomediastinal silhouette is normal. No acute bony abnormality. [facility], [facility]iant Results Inft User - 10/27/2019 11:33 PM CDTPROCEDURE: XR CHEST 1 VWCLINICAL INDICATION: covid COMPARISON: 10/26/2019FINDINGS:The lungs are poor expanded with mild perihilar vascular congestion andfine suprahilar opacities. The right hemidiaphragm is elevated.No pleural effusion or pneumothorax is seen. The cardiomediastinal silhouette is normal. No acute bony abnormality.IMPRESSIONFine perihilar and suprahilar opacit ies are likely edema although an earlypulmonary atypical infection may give a similar appearance.[facility] 1 [id number] 04:32:30Fine perihilar and suprahilar opacities are likely edema although an earlypulmonary atypical infection may give a similar appearance.PROCEDURE: XR CHEST 1 CLINICAL INDICATION: covid COMPARISON: 10/26/2019 FINDINGS: The lungs are poor expanded with mild perihilar vascular congestion andfine suprahilar opacities. The right hemidiaphragm is elevated.No pleural effusion or pneumothorax is seen. Thecardiomediastinal silhouette is normal. No acute bony abnormality. [facility], Radiant Results Inft User - 10/27/2019 11:33 PM CDTPROCEDURE: XR CHEST 1 VWCLINICAL INDICATION: covid COMPARISON: 10/26/2019FINDINGS:The lungs are poor expanded with mild perihilar vascular congestion andfine suprahilar opacities. The right hemidiaphragm is elevated.No pleural effusion or pneumothorax is seen. The cardiomediastinal silhouette is normal. No acute bony abnormality.IMPRESSIONFine perihilar and suprahilar opacities are likely edema although an earlypulmonary atypical infection may give a similar appearance. [facility] CHEST 1 [id number] 04:32:30Fine perihilar and suprahilar opacities are likely edema although an earlypulmonary atypical infection may give a similar appearance.PROCEDURE: XR CHEST 1 CLINICAL INDICATION: covid COMPARISON: 10/26/2019 FINDINGS: The lungs are poor expanded with mild perihilar vascular congestion andfine suprahilar opacities. The right hemidiaphragm is elevated.No pleural effusion or pneumothorax is seen. The cardiomediastinal silhouette is normal. No acute bony abnormality. [facility], [facility]iant Results Inft User - 10/27/2019 11:33 PM CDTPROCEDURE: XR CHEST 1 VWCLINICAL INDICATION: covid COMPARISON: 10/26/2019FINDINGS:The lungs are poor expanded with mild perihilar vascular congestion andfine suprahilar opacities. The right hemidiaphragm is elevated.No pleural effusion or pneumothorax is seen. The cardiomediastinal silhouette is normal. No acute bony abnormality.IMPRESSIONFine perihilar and suprahilar opacities are likely edema although an earlypulmonary atypical infection may give a similar appearance.[facility] CHEST 1 [id number] 04:32:30Fine perihilar and suprahilar opacities are likely edema although an earlypulmonary atypical infection may give a similar appearance.PROCEDURE: XR CHEST 1 VW CLINICAL INDICATION: covid COMPARISON: 10/26/2019 FINDINGS: The lungs are poor expanded with mild perihilar vascular congestion andfine suprahilar opacities. The right hemidiaphragm is elevated.No pleural effusion or pneumothorax is seen. Thecardiomediastinal silhouette is normal. No acute bony abnormality. [facility], Radiant Results Inft User - 10/27/2019 11:33 PM CDTPROCEDURE: XR CHEST 1 VWCLINICAL INDICATION: covid COMPARISON: 10/26/2019FINDINGS:The lungs are poor expanded with mild perihilar vascular congestion andfine suprahilar opacities. The right hemidiaphragm is elevated.No pleural effusion or pneumothorax is seen. The cardiomediastinal silhouette is normal. No acute bony abnormality.IMPRESSIONFine perihilar and suprahilar opacities are likely edema although an earlypulmonary atypical infection may give a similar appearance.[facility] 1 [id number] 04:32:30Fine perihilar and suprahilar opacities are likely edema although an earlypulmonary atypical infection may give a similar appearance.PROCEDURE: XR CHEST 1 VW CLINICAL INDICATION: covid COMPARISON: 10/11 FINDINGS: The lungs are poor expanded with mild perihilar vascular congestion andfine suprahilar opacities. The right hemidiaphragm is elevated.No pleural effusion or pneumothorax is seen. Thecardiomediastinal silhouette is normal. No acute bony abnormality. [facility], Radiant Results Inft User - 10/27/2019 11:33 PM CDTPROCEDURE: XR CHEST 1 VWCLINICAL INDICATION: covid COMPARISON: 10/26/2019FINDINGS:The lungs are poor expanded with mild perihilar vascular congestion andfine suprahilar opacities. The right hemidiaphragm is elevated.No pleural effusion or pneumothorax is seen. The cardiomediastinal silhouette is normal. No acute bony abnormality.IMPRESSIONFine perihilar and suprahilar opacit ies are likely edema although an earlypulmonary atypical infection may give a similar appearance.[facility] 1 [id number] 04:32:30Fine perihilar and suprahilar opacities are likely edema although an earlypulmonary atypical infection may give a similar appearance.PROCEDURE: XR CHEST 1 CLINICAL INDICATION: covid COMPARISON: 10/26/2019 FINDINGS: The lungs are poor expanded with mild perihilar vascular congestion andfine suprahilar opacities. The right hemidiaphragm is elevated.No pleural effusion or pneumothorax is seen. Thecardiomediastinal silhouette is normal. No acute bony abnormality. [facility], Radiant Results Inft User - 10/27/2019 11:33 PM CDTPROCEDURE: XR CHEST 1 VWCLINICAL INDICATION: covid COMPARISON: 10/26/2019FINDINGS:The lungs are poor expanded with mild perihilar vascular congestion andfine suprahilar opacities. The right hemidiaphragm is elevated.No pleural effusion or pneumothorax is seen. The cardiomediastinal silhouette is normal. No acute bony abnormality.IMPRESSIONFine perihilar and suprahilar opacities are likely edema although an earlypulmonary atypical infection may give a similar appearance. [facility] [id number] 04:32:30Fine perihilar and suprahilar opacities are likely edema although an earlypulmonary atypical infection may give a similar appearance.PROCEDURE: XR CHEST 1 CLINICAL INDICATION: covid COMPARISON: 10/26/2019 FINDINGS: The lungs are poor expanded with mild perihilar vascular congestion andfine suprahilar opacities. The right hemidiaphragm is elevated.No pleural effusion or pneumothorax is seen. The cardiomediastinal silhouette is normal. No acute bony abnormality. [facility], Radiant Results Inft User - 10/27/2019 11:33 PM CDTPROCEDURE: XR CHEST 1 VWCLINICAL INDICATION: covid COMPARISON: 10/26/2019FINDINGS:The lungs are poor expanded with mild perihilar vascular congestion andfine suprahilar opacities. The right hemidiaphragm is elevated.No pleural effusion or pneumothorax is seen. The cardiomediastinal silhouette is normal. No acute bony abnormality.IMPRESSIONFine perihilar and suprahilar opacities are likely edema although an earlypulmonary atypical infection may give a similar appearance.[facility] [id number] 01:23:00* Test Item Value Reference Range Interpretation Comme nts FERRITIN (test code = 3563225219) 267.0 ng/mL 18-464 BEVERLY (test code = BEVERLY) Biotin has been reported to cause a negative bias, interpret results relative to patient's use of biotin. Lab Interpretation (test code = 96449-4) Normal [address]07-17 01:23:00* Test Item Value Reference Range Interpretation Comme nts FERRITIN (test code = 5533515087) 267.0 ng/mL 18-464 BEVERLY (test code = BEVERLY) Biotin has been reported to cause a negative bias, interpret results relative to patient's use of biotin. Lab Interpretation (test code = 71666-7) Normal [address]07-17 01:23:00* Test Item Value Reference Range Interpretation Comme nts FERRITIN (test code = 1331555357) 267.0 ng/mL 18-464 BEVERLY (test code = BEVERLY) Biotin has been reported to cause a negative bias, interpret results relative to patient's use of biotin. Lab Interpretation (test code = 74934-5) Normal [facility] [id number] 01:23:00* Test Item Value Reference Range Interpretation Comme nts FERRITIN (test code = 3940196224) 267.0 ng/mL 18-464 BEVERLY (test code = BEVERLY) Biotin has been reported to cause a negative bias, interpret results relative to patient's use of biotin. Lab Interpretation (test code = 52268-9) Normal [facility] [id number] 01:23:00* Test Item Value Reference Range Interpretation Comme nts FERRITIN (test code = 8615574579) 267.0 ng/mL 18-464 BEVERLY (test code = BEVERLY) Biotin has been reported to cause a negative bias, interpret results relative to patient's use of biotin. Lab Interpretation (test code = 77824-8) Normal [facility] [id number] 01:23:00* Test Item Value Reference Range Interpretation Comme nts FERRITIN (test code = 2769301141) 267.0 ng/mL 18-464 BEVERLY (test code = BEVERLY) Biotin has been reported to cause a negative bias, interpret results relative to patient's use of biotin. Lab Interpretation (test code = 53394-6) [facility] [id number] 01:23:00* Test Item Value Reference Range Interpretation Comme nts FERRITIN (test code = 0587496476) 267.0 ng/mL 18-464 BEVERLY (test code = BEVERLY) Biotin has been reported to cause a negative bias, interpret results relative to patient's use of biotin. Lab Interpretation (test code = 56090-0) [facility] [id number] 01:23:00* Test Item Value Reference Range Interpretation Comme nts FERRITIN (test code = 6055864897) 267.0 ng/mL 18-464 BEVERLY (test code = BEVERLY) Biotin has been reported to cause a negative bias, interpret results relative to patient's use of biotin. Lab Interpretation (test code = 51059-6) [id number] 01:23:00* Test Item Value Reference Range Interpretation Comme nts FERRITIN (test code = 6383411232) 267.0 ng/mL 18-464 BEVERLY (test code = BEVERLY) Biotin has been reported to cause a negative bias, interpret results relative to patient's use of biotin. Lab Interpretation (test code = 28908-6) [facility] [id number] 01:23:00* Test Item Value Reference Range Interpretation Comme nts FERRITIN (test code = 6022050543) 267.0 ng/mL 18-464 BEVERLY (test code = BEVERLY) Biotin has been reported to cause a negative bias, interpret results relative to patient's use of biotin. Lab Interpretation (test code = 14576-1) [facility] [id number] 01:23:00* Test Item Value Reference Range Interpretation Comme nts FERRITIN (test code = 8413111799) 267.0 ng/mL 18-464 BEVERLY (test code = BEVERLY) Biotin has been reported to cause a negative bias, interpret results relative to patient's use of biotin. Lab Interpretation (test code = 97527-2) Normal [facility] [id number] 01:23:00* Test Item Value Reference Range Interpretation Comme nts FERRITIN (test code = 8679878002) 267.0 ng/mL 18-464 BEVERLY (test code = BEVERLY) Biotin has been reported to cause a negative bias, interpret results relative to patient's use of biotin. Lab Interpretation (test code = 72109-5) [facility] [id number] 01:23:00* Test Item Value Reference Range Interpretation Comme nts FERRITIN (test code = 3075222695) 267.0 ng/mL 18-464 BEVERLY (test code = BEVERLY) Biotin has been reported to cause a negative bias, interpret results relative to patient's use of biotin. Lab Interpretation (test code = 91843-6) [address]07-17 01:23:00* Test Item Value Reference Range Interpretation Comme nts FERRITIN (test code = 7241229425) 267.0 ng/mL 18-464 BEVERLY (test code = BEVERLY) Biotin has been reported to cause a negative bias, interpret results relative to patient's use of biotin. Lab Interpretation (test code = 96362-8) [place] [id number] 01:23:00* Test Item Value Reference Range Interpretation Comme nts FERRITIN (test code = 4196553783) 267.0 ng/mL 18-464 BEVERLY (test code = BEVERLY) Biotin has been reported to cause a negative bias, interpret results relative to patient's use of biotin. Lab Interpretation (test code = 92369-2) [facility] [id number] 01:23:00* Test Item Value Reference Range Interpretation Comme nts FERRITIN (test code = 6752377194) 267.0 ng/mL 18-464 BEVERLY (test code = BEVERLY) Biotin has been reported to cause a negative bias, interpret results relative to patient's use of biotin. Lab Interpretation (test code = 04633-0) [facility] [id number] 01:23:00* Test Item Value Reference Range Interpretation Comme nts FERRITIN (test code = 1491320502) 267.0 ng/mL 18-464 BEVERLY (test code = BEVERLY) Biotin has been reported to cause a negative bias, interpret results relative to patient's use of biotin. Lab Interpretation (test code = 21927-9) [facility] [id number] 01:23:00* Test Item Value Reference Range Interpretation Comme nts FERRITIN (test code = 9545426876) 267.0 ng/mL 18-464 BEVERLY (test code = BEVERLY) Biotin has been reported to cause a negative bias, interpret results relative to patient's use of biotin. Lab Interpretation (test code = 54633-6) [facility] [id number] 01:23:00* Test Item Value Reference Range Interpretation Comme nts FERRITIN (test code = 8526565745) 267.0 ng/mL 18-464 BEVERLY (test code = BEVERLY) Biotin has been reported to cause a negative bias, interpret results relative to patient's use of biotin. Lab Interpretation (test code = 88371-1) [address]07-17 01:23:00* Test Item Value Reference Range Interpretation Comme nts FERRITIN (test code = 7505867531) 267.0 ng/mL 18-464 BEVERLY (test code = BEVERLY) Biotin has been reported to cause a negative bias, interpret results relative to patient's use of biotin. Lab Interpretation (test code = 04722-5) [facility] [id number] 01:23:00* Test Item Value Reference Range Interpretation Comme nts FERRITIN (test code = 9072601807) 267.0 ng/mL 18-464 BEVERLY (test code = BEVERLY) Biotin has been reported to cause a negative bias, interpret results relative to patient's use of biotin. Lab Interpretation (test code = 29803-9) [facility] [id number] 01:23:00* Test Item Value Reference Range Interpretation Comme nts FERRITIN (test code = 9271013613) 267.0 ng/mL 18-464 BEVERLY (test code = BEVERLY) Biotin has been reported to cause a negative bias, interpret results relative to patient's use of biotin. Lab Interpretation (test code = 28184-3) [address]07-17 01:23:00* Test Item Value Reference Range Interpretation Comme nts FERRITIN (test code = 7140830687) 267.0 ng/mL 18-464 BEVERLY (test code = BEVERLY) Biotin has been reported to cause a negative bias, interpret results relative to patient's use of biotin. Lab Interpretation (test code = 11285-5) [facility] [id number] 01:23:00* Test Item Value Reference Range Interpretation Comme nts FERRITIN (test code = 1313011239) 267.0 ng/mL 18-464 BEVERLY (test code = BEVERLY) Biotin has been reported to cause a negative bias, interpret results relative to patient's use of biotin. Lab Interpretation (test code = 34245-5) [facility] [id number] 01:23:00* Test Item Value Reference Range Interpretation Comme nts FERRITIN (test code = 7242583199) 267.0 ng/mL 18-464 BEVERLY (test code = BEVERLY) Biotin has been reported to cause a negative bias, interpret results relative to patient's use of biotin. Lab Interpretation (test code = 52236-1) Normal [facility])2019-10-28 01:08:00* Test Item Value Reference Range Interpretation Comme nts CK (test code = 9461716523) 285 U/L 33-194 H Slight hemolysis Lab Interpretation (test code = 32531-2) [facility] [facility] [id number] 01:08:00 * Test Item Value Reference Range Interpretation Comme nts TSH (test code = 8165594952) See_Comment [Automated [employer]] The system which generated this result transmitted reference range: 0.45 - 4.70 mIU/L. The reference range was not used to interpret this result as normal/abnormal. Lab Interpretation (test code = 13336-4) [facility] (Na, K, Cl, CO2, Glucose, BUN, Creatinine, Ca)2019-10-28 01:08:00* Test Item Value Reference Range Interpretation Comme nts NA (test code = 9674626106) 140 mmol/L 135-145 K (test code = 9853124321) 4.4 mmol/L 3.5-5 Slight hemolysis CL (test code = 4306923133) 109 mmol/L 98-108 H CO2 TOTAL (test code = 4982024626) 20 mmol/L 23-31 L AGAP (test code = 8257613431) 2-16 BUN (test code = 8522690750) 7 mg/dL 7-23 Slight hemolysis GLUCOSE (test code = 0830097301) 102 mg/dL 70-110 CREATININE (test code = 2332069609) 0.53 mg/dL 0.6-1.25 L CALCIUM (test code = 5373523784) 9.0 mg/dL 8.6-10.6 eGFR Calculation (Non-) (test code = 4058148457) mL/min/1.73m2 eGFR Calculation () (test code = 9638300239) mL/min/1.73m2 BEVERLY (test code = BEVERLY) Association of Glomerular Filtration Rate (GFR) and Staging of Kidney Disease* + -----+ --------+ +| GFR (mL/min/1.73 m2) ?| With Kidney Damage ?| ?Without Kidney Damage+ +------- +---- --+| ?>90 ?| ?Stage one ?| ? Normal ?+ ------+ ---------+--------- +| ?60-89 ?| ?Stage two ?| ? Decreased GFR ? + -----+ --------+ +| ?30-59 ?| ?Stage three ?| ? Stage three ? + -----+ --------+ +| ?15-29 ?| ?Stage four ? | ? Stage four ?+ ------+ ---------+--------- +| ?<15 (or dialysis) ? ?| ?Stage five ? | ? Stage five ?+ ------+ ---------+--------- + *Each stage assumes the associated GFR level has been in effect for at least three months. ?Stages 1 to 5, with or without kidney disease, indicate chronic kidney disease. Notes: Determination of stages one and two (with eGFR >59mL/min/1.73 m2) requires estimation of kidney damage for at least three months as defined by structural or functional abnormalities of the kidney, manifested by either:Pathological abnormalities or Markers of kidney damage (including abnormalities in the composition of the blood or urine or abnormalities in imaging tests). Lab Interpretation (test code = 83048-4) [facility] HospitalMagn[facility] [id number] 01:08:00* Test Item Value Reference Range Interpretation Comme nts MAGNESIUM (test code = 6862176271) 1.9 mg/dL 1.7-2.4 Slight hemolysis Lab Interpretation (test code = 62747-7) [facility] HospitalPhosph[facility] [id number] 01:08:00* Test Item Value Reference Range Interpretation Comme nts PHOSPHORUS (test code = 4578952524) 2.6 mg/dL 2.5-5 Slight hemolysis Lab Interpretation (test code = 09393-1) [facility] Hospital[facility] ([facility])2019-10-28 01:08:00* Test Item Value Reference Range Interpretation Comme nts CK (test code = 3149119513) 285 U/L 33-194 H Slight hemolysis Lab Interpretation (test code = 39684-8) [facility] [id number] 01:08:00 * Test Item Value Reference Range Interpretation Comme nts TSH (test code = 1460652237) See_Comment [Automated [employer]] The system which generated this result transmitted reference range: 0.45 - 4.70 mIU/L. The reference range was not used to interpret this result as normal/abnormal. Lab Interpretation (test code = 85200-7) [facility] HospitalCreat[facility] (CK)2019-10-28 01:08:00* Test Item Value Reference Range Interpretation Comme nts CK (test code = 8587629700) 285 U/L 33-194 H Slight hemolysis Lab Interpretation (test code = 60730-4) [facility] [id number] 01:08:00 * Test Item Value Reference Range Interpretation Comme nts TSH (test code = 2858421918) See_Comment [Automated [employer]] The system which generated this result transmitted reference range: 0.45 - 4.70 mIU/L. The reference range was not used to interpret this result as normal/abnormal. Lab Interpretation (test code = 49336-1) [facility] Hospital[facility] (CK)2019-10-28 01:08:00* Test Item Value Reference Range Interpretation Comme nts CK (test code = 7541715679) 285 U/L 33-194 H Slight hemolysis Lab Interpretation (test code = 98017-5) Abnormal [facility]TH[facility] [id number] 01:08:00 * Test Item Value Reference Range Interpretation Comme nts TSH (test code = 1953806145) See_Comment [Automated [employer]] The system which generated this result transmitted reference range: 0.45 - 4.70 mIU/L. The reference range was not used to interpret this result as normal/abnormal. Lab Interpretation (test code = 49622-4) Normal [facility] (CK)2019-10-28 01:08:00* Test Item Value Reference Range Interpretation Comme nts CK (test code = 2430089935) 285 U/L 33-194 H Slight hemolysis Lab Interpretation (test code = 78790-9) [facility] [id number] 01:08:00 * Test Item Value Reference Range Interpretation Comme nts TSH (test code = 8866636123) See_Comment [Automated [employer]] The system which generated this result transmitted reference range: 0.45 - 4.70 mIU/L. The reference range was not used to interpret this result as normal/abnormal. Lab Interpretation (test code = 28352-6) Normal [facility] BranchCreat[facility] Kin[facility] (CK)2019-10-28 01:08:00* Test Item Value Reference Range Interpretation Comme nts CK (test code = 4839567831) 285 U/L 33-194 H Slight hemolysis Lab Interpretation (test code = 12538-0) Abnormal [facility] BranchTHY[facility] STIMULATING [id number] 01:08:00 * Test Item Value Reference Range Interpretation Comme nts TSH (test code = 1087195040) See_Comment [[employer]ated [employer]] The system which generated this result transmitted reference range: 0.45 - 4.70 mIU/L. The reference range was not used to interpret this result as normal/abnormal. Lab Interpretation (test code = 98273-8) Normal [facility] (CK)2019-10-28 01:08:00* Test Item Value Reference Range Interpretation Comme nts CK (test code = 7387191711) 285 U/L 33-194 H Slight hemolysis Lab Interpretation (test code = 55962-1) Abnormal [facility] BranchTHY[facility] STIM[facility]ATING [id number] 01:08:00 * Test Item Value Reference Range Interpretation Comme nts TSH (test code = 2756578320) See_Comment [Automated [employer]] The system which generated this result transmitted reference range: 0.45 - 4.70 mIU/L. The reference range was not used to interpret this result as normal/abnormal. Lab Interpretation (test code = 88205-1) Normal [facility]Creat[facility] (CK)2019-10-28 01:08:00* Test Item Value Reference Range Interpretation Comme nts CK (test code = 0486064975) 285 U/L 33-194 H Slight hemolysis Lab Interpretation (test code = 26282-9) [facility] [id number] 01:08:00 * Test Item Value Reference Range Interpretation Comme nts TSH (test code = 0892528258) See_Comment [[employer]ated [employer]] The system which generated this result transmitted reference range: 0.45 - 4.70 mIU/L. The reference range was not used to interpret this result as normal/abnormal. Lab Interpretation (test code = 11736-8) Normal [facility] BranchCreat[facility] Kin[facility] (CK)2019-10-28 01:08:00* Test Item Value Reference Range Interpretation Comme nts CK (test code = 1324744612) 285 U/L 33-194 H Slight hemolysis Lab Interpretation (test code = 62310-1) Abnormal [facility] BranchTH[facility] STIM[facility]ATING [id number] 01:08:00 * Test Item Value Reference Range Interpretation Comme nts TSH (test code = 2265198788) See_Comment [[employer]ated [employer]] The system which generated this result transmitted reference range: 0.45 - 4.70 mIU/L. The reference range was not used to interpret this result as normal/abnormal. Lab Interpretation (test code = 10478-4) Normal [facility] BranchCreat[facility] (CK)2019-10-28 01:08:00* Test Item Value Reference Range Interpretation Comme nts CK (test code = 9734272971) 285 U/L 33-194 H Slight hemolysis Lab Interpretation (test code = 72887-1) Abnormal [facility] BranchTHYRO[facility] STIMULATING [id number] 01:08:00 * Test Item Value Reference Range Interpretation Comme nts TSH (test code = 5263860753) See_Comment [Automated messa ge] The system which generated this result transmitted reference range: 0.45 - 4.70 mIU/L. The reference range was not used to interpret this result as normal/abnormal. Lab Interpretation (test code = 88069-5) Normal [facility] BranchCreat[facility] Kin[facility] (CK)2019-10-28 01:08:00* Test Item Value Reference Range Interpretation Comme nts CK (test code = 4294422012) 285 U/L 33-194 H Slight hemolysis Lab Interpretation (test code = 96773-8) Abnormal [facility] BranchTHY[facility] STIMULATING [id number] 01:08:00 * Test Item Value Reference Range Interpretation Comme nts TSH (test code = 8054320154) See_Comment [Automated messa ge] The system which generated this result transmitted reference range: 0.45 - 4.70 mIU/L. The reference range was not used to interpret this result as normal/abnormal. Lab Interpretation (test code = 61531-8) Normal [facility] BranchCreat[facility] Kin[facility] (CK)2019-10-28 01:08:00* Test Item Value Reference Range Interpretation Comme nts CK (test code = 9202710615) 285 U/L 33-194 H Slight hemolysis Lab Interpretation (test code = 21368-4) Abnormal [facility] BranchTHY[facility] STIM[facility]ATING [id number] 01:08:00 * Test Item Value Reference Range Interpretation Comme nts TSH (test code = 3291376779) See_Comment [Automated messa ge] The system which generated this result transmitted reference range: 0.45 - 4.70 mIU/L. The reference range was not used to interpret this result as normal/abnormal. Lab Interpretation (test code = 99521-9) Normal [facility] BranchCreat[facility] Kin[facility] (CK)2019-10-28 01:08:00* Test Item Value Reference Range Interpretation Comme nts CK (test code = 5790370186) 285 U/L 33-194 H Slight hemolysis Lab Interpretation (test code = 20125-2) Abnormal [facility] BranchTHYROID STIMULATING [id number] 01:08:00 * Test Item Value Reference Range Interpretation Comme nts TSH (test code = 2206332964) See_Comment [Automated messa ge] The system which generated this result transmitted reference range: 0.45 - 4.70 mIU/L. The reference range was not used to interpret this result as normal/abnormal. Lab Interpretation (test code = 10319-8) Normal [facility] BranchCreat[facility] Kin[facility] (CK)2019-10-28 01:08:00* Test Item Value Reference Range Interpretation Comme nts CK (test code = 4109240442) 285 U/L 33-194 H Slight hemolysis Lab Interpretation (test code = 43694-1) Abnormal [facility] BranchTHYROID STIMULATING [id number] 01:08:00 * Test Item Value Reference Range Interpretation Comme nts TSH (test code = 9045408348) See_Comment [Automated messa ge] The system which generated this result transmitted reference range: 0.45 - 4.70 mIU/L. The reference range was not used to interpret this result as normal/abnormal. Lab Interpretation (test code = 04703-4) Normal [facility] BranchCreat[facility] Kin[facility] (CK)2019-10-28 01:08:00* Test Item Value Reference Range Interpretation Comme nts CK (test code = 0396350502) 285 U/L 33-194 H Slight hemolysis Lab Interpretation (test code = 29100-3) Abnormal [facility] BranchTHY[facility] STIMULATING [id number] 01:08:00 * Test Item Value Reference Range Interpretation Comme nts TSH (test code = 7606859360) See_Comment [Automated messa ge] The system which generated this result transmitted reference range: 0.45 - 4.70 mIU/L. The reference range was not used to interpret this result as normal/abnormal. Lab Interpretation (test code = 57775-0) Normal [facility] BranchCreat[facility] Kin[facility] (CK)2019-10-28 01:08:00* Test Item Value Reference Range Interpretation Comme nts CK (test code = 0395414469) 285 U/L 33-194 H Slight hemolysis Lab Interpretation (test code = 03049-2) Abnormal [facility] BranchTH[facility] ST[facility]ATING [id number] 01:08:00 * Test Item Value Reference Range Interpretation Comme nts TSH (test code = 1600368969) See_Comment [Automated messa ge] The system which generated this result transmitted reference range: 0.45 - 4.70 mIU/L. The reference range was not used to interpret this result as normal/abnormal. Lab Interpretation (test code = 93606-9) Normal [facility] BranchCreat[facility] Kin[facility] (CK)2019-10-28 01:08:00* Test Item Value Reference Range Interpretation Comme nts CK (test code = 6677538191) 285 U/L 33-194 H Slight hemolysis Lab Interpretation (test code = 88635-5) Abnormal [facility] BranchTH[facility] ST[facility]ATING [id number] 01:08:00 * Test Item Value Reference Range Interpretation Comme nts TSH (test code = 5602795460) See_Comment [Automated [employer]] The system which generated this result transmitted reference range: 0.45 - 4.70 mIU/L. The reference range was not used to interpret this result as normal/abnormal. Lab Interpretation (test code = 78075-4) Normal [facility] BranchCreat[facility] Kin[facility] (CK)2019-10-28 01:08:00* Test Item Value Reference Range Interpretation Comme nts CK (test code = 5183743587) 285 U/L 33-194 H Slight hemolysis Lab Interpretation (test code = 47018-0) Abnormal [facility] BranchTH[facility] ST[facility] [id number] 01:08:00 * Test Item Value Reference Range Interpretation Comme nts TSH (test code = 8300183708) See_Comment [[employer]ated [employer]] The system which generated this result transmitted reference range: 0.45 - 4.70 mIU/L. The reference range was not used to interpret this result as normal/abnormal. Lab Interpretation (test code = 92470-4) Normal [facility] BranchCreat[facility] Kin[facility] (CK)2019-10-28 01:08:00* Test Item Value Reference Range Interpretation Comme nts CK (test code = 6318634335) 285 U/L 33-194 H Slight hemolysis Lab Interpretation (test code = 88807-4) Abnormal [facility] BranchTH[facility] ST[facility] [id number] 01:08:00 * Test Item Value Reference Range Interpretation Comme nts TSH (test code = 0419381288) See_Comment [Automated [employer]] The system which generated this result transmitted reference range: 0.45 - 4.70 mIU/L. The reference range was not used to interpret this result as normal/abnormal. Lab Interpretation (test code = 18683-6) Normal [facility] BranchCreat[facility] Kinase (CK)2019-10-28 01:08:00* Test Item Value Reference Range Interpretation Comme nts CK (test code = 5820639246) 285 U/L 33-194 H Slight hemolysis Lab Interpretation (test code = 32136-6) Abnormal [facility] BranchTH[facility] ST[facility] [id number] 01:08:00 * Test Item Value Reference Range Interpretation Comme nts TSH (test code = 2368792565) See_Comment [[employer]ated [employer]] The system which generated this result transmitted reference range: 0.45 - 4.70 mIU/L. The reference range was not used to interpret this result as normal/abnormal. Lab Interpretation (test code = 04189-8) Normal [facility] BranchCreat[facility] Kin[facility] (CK)2019-10-28 01:08:00* Test Item Value Reference Range Interpretation Comme nts CK (test code = 3603843031) 285 U/L 33-194 H Slight hemolysis Lab Interpretation (test code = 59195-1) Abnormal [facility]TH[facility] ST[facility] [id number] 01:08:00 * Test Item Value Reference Range Interpretation Comme nts TSH (test code = 0528058694) See_Comment [[employer]ated [employer]] The system which generated this result transmitted reference range: 0.45 - 4.70 mIU/L. The reference range was not used to interpret this result as normal/abnormal. Lab Interpretation (test code = 02276-6) Normal [facility] BranchCreat[facility] Kin[facility] (CK)2019-10-28 01:08:00* Test Item Value Reference Range Interpretation Comme nts CK (test code = 7088516598) 285 U/L 33-194 H Slight hemolysis Lab Interpretation (test code = 00436-5) Abnormal [facility] BranchTHYRO[facility] STIMULATING [id number] 01:08:00 * Test Item Value Reference Range Interpretation Comme nts TSH (test code = 7526050643) See_Comment [[employer]ated [employer]] The system which generated this result transmitted reference range: 0.45 - 4.70 mIU/L. The reference range was not used to interpret this result as normal/abnormal. Lab Interpretation (test code = 87046-1) Normal [facility] BranchCreat[facility] Kin[facility] (CK)2019-10-28 01:08:00* Test Item Value Reference Range Interpretation Comme nts CK (test code = 8595862077) 285 U/L 33-194 H Slight hemolysis Lab Interpretation (test code = 91584-9) [facility] [id number] 01:08:00 * Test Item Value Reference Range Interpretation Comme nts TSH (test code = 5308305033) See_Comment [Automated messa ge] The system which generated this result transmitted reference range: 0.45 - 4.70 mIU/L. The reference range was not used to interpret this result as normal/abnormal. Lab Interpretation (test code = 15496-2) [facility] (CK)2019-10-28 01:08:00* Test Item Value Reference Range Interpretation Comme nts CK (test code = 1809482530) 285 U/L 33-194 H Slight hemolysis Lab Interpretation (test code = 57834-0) [facility] [id number] 01:08:00 * Test Item Value Reference Range Interpretation Comme nts TSH (test code = 0283191155) See_Comment [Automated messa ge] The system which generated this result transmitted reference range: 0.45 - 4.70 mIU/L. The reference range was not used to interpret this result as normal/abnormal. Lab Interpretation (test code = 49388-2) [facility] ([facility])2019-10-28 01:08:00* Test Item Value Reference Range Interpretation Comme nts CK (test code = 9578321614) 285 U/L 33-194 H Slight hemolysis Lab Interpretation (test code = 81266-0) [facility] [id number] 01:08:00 * Test Item Value Reference Range Interpretation Comme nts TSH (test code = 4267360407) See_Comment [Automated messa ge] The system which generated this result transmitted reference range: 0.45 - 4.70 mIU/L. The reference range was not used to interpret this result as normal/abnormal. Lab Interpretation (test code = 95721-7) [facility] HospitalD-[id number] 00:28:00* Test Item Value Reference Range Interpretation Comments D-DIMER (test code = 7020420801) See_Comment [Automated message] The system which generated this result transmitted reference range: <0.50 ?g/mL (FEU). The reference range was not used to interpret this result as normal/abnormal. BEVERLY (test code = BEVERLY) This test may be used in conjunction with a clinical pretest probability (PTP) assessment model to exclude venous thromboembolism (VTE) in patients suspected of deep venous thrombosis (DVT) and pulmonary embolism (PE) A D-Dimer value less than 0.50 ?g/ml (FEU) has a negative predicative value of 96 to 100% (95% CI)and 97 to 100% (95% CI) as an aid in the diagnosis of deep vein thrombosis (DVT) and pulmonary embolism when there is low or moderate pretest probability of PE or DVT. D-Dimer values are expressed in initial fibrinogen equivalent units (FEU)" The assay results should be used with other information, including the clinical context, in forming a diagnosis. Lab Interpretation (test code = 22843-2) Normal [facility]-[id number] 00:28:00* Test Item Value Reference Range Interpretation Comments D-DIMER (test code = 0330851258) See_Comment [Automated message] The system which generated this result transmitted reference range: <0.50 ?g/mL (FEU). The reference range was not used to interpret this result as normal/abnormal. BEVERLY (test code = BEVERLY) This test may be used in conjunction with a clinical pretest probability (PTP) assessment model to exclude venous thromboembolism (VTE) in patients suspected of deep venous thrombosis (DVT) and pulmonary embolism (PE) A D-Dimer value less than 0.50 ?g/ml (FEU) has a negative predicative value of 96 to 100% (95% CI)and 97 to 100% (95% CI) as an aid in the diagnosis of deep vein thrombosis (DVT) and pulmonary embolism when there is low or moderate pretest probability of PE or DVT. D-Dimer values are expressed in initial fibrinogen equivalent units (FEU)" The assay results should be used with other information, including the clinical context, in forming a diagnosis. Lab Interpretation (test code = 99448-7) Normal [facility]-[id number] 00:28:00* Test Item Value Reference Range Interpretation Comments D-DIMER (test code = 3557542252) See_Comment [Automated message] The system which generated this result transmitted reference range: <0.50 ?g/mL (FEU). The reference range was not used to interpret this result as normal/abnormal. BEVERLY (test code = BEVERLY) This test may be used in conjunction with a clinical pretest probability (PTP) assessment model to exclude venous thromboembolism (VTE) in patients suspected of deep venous thrombosis (DVT) and pulmonary embolism (PE) A D-Dimer value less than 0.50 ?g/ml (FEU) has a negative predicative value of 96 to 100% (95% CI)and 97 to 100% (95% CI) as an aid in the diagnosis of deep vein thrombosis (DVT) and pulmonary embolism when there is low or moderate pretest probability of PE or DVT. D-Dimer values are expressed in initial fibrinogen equivalent units (FEU)" The assay results should be used with other information, including the clinical context, in forming a diagnosis. Lab Interpretation (test code = 65357-9) Normal [facility]-ESJSU7157-09-19 00:28:00* Test Item Value Reference Range Interpretation Comments D-DIMER (test code = 3031888166) See_Comment [Automated message] The system which generated this result transmitted reference range: <0.50 ?g/mL (FEU). The reference range was not used to interpret this result as normal/abnormal. BEVERLY (test code = BEVERLY) This test may be used in conjunction with a clinical pretest probability (PTP) assessment model to exclude venous thromboembolism (VTE) in patients suspected of deep venous thrombosis (DVT) and pulmonary embolism (PE) A D-Dimer value less than 0.50 ?g/ml (FEU) has a negative predicative value of 96 to 100% (95% CI)and 97 to 100% (95% CI) as an aid in the diagnosis of deep vein thrombosis (DVT) and pulmonary embolism when there is low or moderate pretest probability of PE or DVT. D-Dimer values are expressed in initial fibrinogen equivalent units (FEU)" The assay results should be used with other information, including the clinical context, in forming a diagnosis. Lab Interpretation (test code = 52119-8) Normal [facility]-CLLLR5292-58-48 00:28:00* Test Item Value Reference Range Interpretation Comments D-DIMER (test code = [id number]) See_Comment [Automated message] The system which generated this result transmitted reference range: <0.50 ?g/mL (FEU). The reference range was not used to interpret this result as normal/abnormal. BEVERLY (test code = BEVERLY) This test may be used in conjunction with a clinical pretest probability (PTP) assessment model to exclude venous thromboembolism (VTE) in patients suspected of deep venous thrombosis (DVT) and pulmonary embolism (PE) A D-Dimer value less than 0.50 ?g/ml (FEU) has a negative predicative value of 96 to 100% (95% CI)and 97 to 100% (95% CI) as an aid in the diagnosis of deep vein thrombosis (DVT) and pulmonary embolism when there is low or moderate pretest probability of PE or DVT. D-Dimer values are expressed in initial fibrinogen equivalent units (FEU)" The assay results should be used with other information, including the clinical context, in forming a diagnosis. Lab Interpretation (test code = 82904-0) Normal [facility]-[id number] 00:28:00* Test Item Value Reference Range Interpretation Comments D-DIMER (test code = 2991431033) See_Comment [Automated message] The system which generated this result transmitted reference range: <0.50 ?g/mL (FEU). The reference range was not used to interpret this result as normal/abnormal. BEVERLY (test code = BEVERLY) This test may be used in conjunction with a clinical pretest probability (PTP) assessment model to exclude venous thromboembolism (VTE) in patients suspected of deep venous thrombosis (DVT) and pulmonary embolism (PE) A D-Dimer value less than 0.50 ?g/ml (FEU) has a negative predicative value of 96 to 100% (95% CI)and 97 to 100% (95% CI) as an aid in the diagnosis of deep vein thrombosis (DVT) and pulmonary embolism when there is low or moderate pretest probability of PE or DVT. D-Dimer values are expressed in initial fibrinogen equivalent units (FEU)" The assay results should be used with other information, including the clinical context, in forming a diagnosis. Lab Interpretation (test code = 52765-6) Normal [facility]-[id number] 00:28:00* Test Item Value Reference Range Interpretation Comments D-DIMER (test code = 0706532199) See_Comment [Automated message] The system which generated this result transmitted reference range: <0.50 ?g/mL (FEU). The reference range was not used to interpret this result as normal/abnormal. BEVERLY (test code = BEVERLY) This test may be used in conjunction with a clinical pretest probability (PTP) assessment model to exclude venous thromboembolism (VTE) in patients suspected of deep venous thrombosis (DVT) and pulmonary embolism (PE) A D-Dimer value less than 0.50 ?g/ml (FEU) has a negative predicative value of 96 to 100% (95% CI)and 97 to 100% (95% CI) as an aid in the diagnosis of deep vein thrombosis (DVT) and pulmonary embolism when there is low or moderate pretest probability of PE or DVT. D-Dimer values are expressed in initial fibrinogen equivalent units (FEU)" The assay results should be used with other information, including the clinical context, in forming a diagnosis. Lab Interpretation (test code = 61693-8) Normal [facility]-[id number] 00:28:00* Test Item Value Reference Range Interpretation Comments D-DIMER (test code = 9385945519) See_Comment [Automated message] The system which generated this result transmitted reference range: <0.50 ?g/mL (FEU). The reference range was not used to interpret this result as normal/abnormal. BEVERLY (test code = BEVERLY) This test may be used in conjunction with a clinical pretest probability (PTP) assessment model to exclude venous thromboembolism (VTE) in patients suspected of deep venous thrombosis (DVT) and pulmonary embolism (PE) A D-Dimer value less than 0.50 ?g/ml (FEU) has a negative predicative value of 96 to 100% (95% CI)and 97 to 100% (95% CI) as an aid in the diagnosis of deep vein thrombosis (DVT) and pulmonary embolism when there is low or moderate pretest probability of PE or DVT. D-Dimer values are expressed in initial fibrinogen equivalent units (FEU)" The assay results should be used with other information, including the clinical context, in forming a diagnosis. Lab Interpretation (test code = 42245-3) Normal [facility]-[id number] 00:28:00* Test Item Value Reference Range Interpretation Comments D-DIMER (test code = 8734029211) See_Comment [Automated message] The system which generated this result transmitted reference range: <0.50 ?g/mL (FEU). The reference range was not used to interpret this result as normal/abnormal. BEVERLY (test code = BEVERLY) This test may be used in conjunction with a clinical pretest probability (PTP) assessment model to exclude venous thromboembolism (VTE) in patients suspected of deep venous thrombosis (DVT) and pulmonary embolism (PE) A D-Dimer value less than 0.50 ?g/ml (FEU) has a negative predicative value of 96 to 100% (95% CI)and 97 to 100% (95% CI) as an aid in the diagnosis of deep vein thrombosis (DVT) and pulmonary embolism when there is low or moderate pretest probability of PE or DVT. D-Dimer values are expressed in initial fibrinogen equivalent units (FEU)" The assay results should be used with other information, including the clinical context, in forming a diagnosis. Lab Interpretation (test code = 32073-9) Normal [facility]-[id number] 00:28:00* Test Item Value Reference Range Interpretation Comments D-DIMER (test code = 2755963977) See_Comment [Automated message] The system which generated this result transmitted reference range: <0.50 ?g/mL (FEU). The reference range was not used to interpret this result as normal/abnormal. BEVERLY (test code = BEVERLY) This test may be used in conjunction with a clinical pretest probability (PTP) assessment model to exclude venous thromboembolism (VTE) in patients suspected of deep venous thrombosis (DVT) and pulmonary embolism (PE) A D-Dimer value less than 0.50 ?g/ml (FEU) has a negative predicative value of 96 to 100% (95% CI)and 97 to 100% (95% CI) as an aid in the diagnosis of deep vein thrombosis (DVT) and pulmonary embolism when there is low or moderate pretest probability of PE or DVT. D-Dimer values are expressed in initial fibrinogen equivalent units (FEU)" The assay results should be used with other information, including the clinical context, in forming a diagnosis. Lab Interpretation (test code = 52412-9) Normal [facility]-[id number] 00:28:00* Test Item Value Reference Range Interpretation Comments D-DIMER (test code = 7242839850) See_Comment [Automated message] The system which generated this result transmitted reference range: <0.50 ?g/mL (FEU). The reference range was not used to interpret this result as normal/abnormal. BEVERLY (test code = BEVERLY) This test may be used in conjunction with a clinical pretest probability (PTP) assessment model to exclude venous thromboembolism (VTE) in patients suspected of deep venous thrombosis (DVT) and pulmonary embolism (PE) A D-Dimer value less than 0.50 ?g/ml (FEU) has a negative predicative value of 96 to 100% (95% CI)and 97 to 100% (95% CI) as an aid in the diagnosis of deep vein thrombosis (DVT) and pulmonary embolism when there is low or moderate pretest probability of PE or DVT. D-Dimer values are expressed in initial fibrinogen equivalent units (FEU)" The assay results should be used with other information, including the clinical context, in forming a diagnosis. Lab Interpretation (test code = 29427-4) Normal [facility]-[id number] 00:28:00* Test Item Value Reference Range Interpretation Comments D-DIMER (test code = 2542280197) See_Comment [Automated message] The system which generated this result transmitted reference range: <0.50 ?g/mL (FEU). The reference range was not used to interpret this result as normal/abnormal. BEVERLY (test code = BEVERLY) This test may be used in conjunction with a clinical pretest probability (PTP) assessment model to exclude venous thromboembolism (VTE) in patients suspected of deep venous thrombosis (DVT) and pulmonary embolism (PE) A D-Dimer value less than 0.50 ?g/ml (FEU) has a negative predicative value of 96 to 100% (95% CI)and 97 to 100% (95% CI) as an aid in the diagnosis of deep vein thrombosis (DVT) and pulmonary embolism when there is low or moderate pretest probability of PE or DVT. D-Dimer values are expressed in initial fibrinogen equivalent units (FEU)" The assay results should be used with other information, including the clinical context, in forming a diagnosis. Lab Interpretation (test code = 03182-2) Normal [facility]-[id number] 00:28:00* Test Item Value Reference Range Interpretation Comments D-DIMER (test code = 1712298138) See_Comment [Automated message] The system which generated this result transmitted reference range: <0.50 ?g/mL (FEU). The reference range was not used to interpret this result as normal/abnormal. BEVERLY (test code = BEVERLY) This test may be used in conjunction with a clinical pretest probability (PTP) assessment model to exclude venous thromboembolism (VTE) in patients suspected of deep venous thrombosis (DVT) and pulmonary embolism (PE) A D-Dimer value less than 0.50 ?g/ml (FEU) has a negative predicative value of 96 to 100% (95% CI)and 97 to 100% (95% CI) as an aid in the diagnosis of deep vein thrombosis (DVT) and pulmonary embolism when there is low or moderate pretest probability of PE or DVT. D-Dimer values are expressed in initial fibrinogen equivalent units (FEU)" The assay results should be used with other information, including the clinical context, in forming a diagnosis. Lab Interpretation (test code = 05654-3) Normal [facility]-[id number] 00:28:00* Test Item Value Reference Range Interpretation Comments D-DIMER (test code = 0474169023) See_Comment [Automated message] The system which generated this result transmitted reference range: <0.50 ?g/mL (FEU). The reference range was not used to interpret this result as normal/abnormal. BEVERLY (test code = BEVERLY) This test may be used in conjunction with a clinical pretest probability (PTP) assessment model to exclude venous thromboembolism (VTE) in patients suspected of deep venous thrombosis (DVT) and pulmonary embolism (PE) A D-Dimer value less than 0.50 ?g/ml (FEU) has a negative predicative value of 96 to 100% (95% CI)and 97 to 100% (95% CI) as an aid in the diagnosis of deep vein thrombosis (DVT) and pulmonary embolism when there is low or moderate pretest probability of PE or DVT. D-Dimer values are expressed in initial fibrinogen equivalent units (FEU)" The assay results should be used with other information, including the clinical context, in forming a diagnosis. Lab Interpretation (test code = 18532-9) Normal [facility]-[id number] 00:28:00* Test Item Value Reference Range Interpretation Comments D-DIMER (test code = 7800139474) See_Comment [Automated message] The system which generated this result transmitted reference range: <0.50 ?g/mL (FEU). The reference range was not used to interpret this result as normal/abnormal. BEVERLY (test code = BEVERLY) This test may be used in conjunction with a clinical pretest probability (PTP) assessment model to exclude venous thromboembolism (VTE) in patients suspected of deep venous thrombosis (DVT) and pulmonary embolism (PE) A D-Dimer value less than 0.50 ?g/ml (FEU) has a negative predicative value of 96 to 100% (95% CI)and 97 to 100% (95% CI) as an aid in the diagnosis of deep vein thrombosis (DVT) and pulmonary embolism when there is low or moderate pretest probability of PE or DVT. D-Dimer values are expressed in initial fibrinogen equivalent units (FEU)" The assay results should be used with other information, including the clinical context, in forming a diagnosis. Lab Interpretation (test code = 50211-9) Normal [facility]-[id number] 00:28:00* Test Item Value Reference Range Interpretation Comments D-DIMER (test code = 0248980030) See_Comment [Automated message] The system which generated this result transmitted reference range: <0.50 ?g/mL (FEU). The reference range was not used to interpret this result as normal/abnormal. BEVERLY (test code = BEVERLY) This test may be used in conjunction with a clinical pretest probability (PTP) assessment model to exclude venous thromboembolism (VTE) in patients suspected of deep venous thrombosis (DVT) and pulmonary embolism (PE) A D-Dimer value less than 0.50 ?g/ml (FEU) has a negative predicative value of 96 to 100% (95% CI)and 97 to 100% (95% CI) as an aid in the diagnosis of deep vein thrombosis (DVT) and pulmonary embolism when there is low or moderate pretest probability of PE or DVT. D-Dimer values are expressed in initial fibrinogen equivalent units (FEU)" The assay results should be used with other information, including the clinical context, in forming a diagnosis. Lab Interpretation (test code = 71680-7) Normal [facility]-[id number] 00:28:00* Test Item Value Reference Range Interpretation Comments D-DIMER (test code = 1675011393) See_Comment [Automated message] The system which generated this result transmitted reference range: <0.50 ?g/mL (FEU). The reference range was not used to interpret this result as normal/abnormal. BEVERLY (test code = BEVERLY) This test may be used in conjunction with a clinical pretest probability (PTP) assessment model to exclude venous thromboembolism (VTE) in patients suspected of deep venous thrombosis (DVT) and pulmonary embolism (PE) A D-Dimer value less than 0.50 ?g/ml (FEU) has a negative predicative value of 96 to 100% (95% CI)and 97 to 100% (95% CI) as an aid in the diagnosis of deep vein thrombosis (DVT) and pulmonary embolism when there is low or moderate pretest probability of PE or DVT. D-Dimer values are expressed in initial fibrinogen equivalent units (FEU)" The assay results should be used with other information, including the clinical context, in forming a diagnosis. Lab Interpretation (test code = 97980-9) Normal [facility]-[id number] 00:28:00* Test Item Value Reference Range Interpretation Comments D-DIMER (test code = 6671705255) See_Comment [Automated message] The system which generated this result transmitted reference range: <0.50 ?g/mL (FEU). The reference range was not used to interpret this result as normal/abnormal. BEVERLY (test code = BEVERLY) This test may be used in conjunction with a clinical pretest probability (PTP) assessment model to exclude venous thromboembolism (VTE) in patients suspected of deep venous thrombosis (DVT) and pulmonary embolism (PE) A D-Dimer value less than 0.50 ?g/ml (FEU) has a negative predicative value of 96 to 100% (95% CI)and 97 to 100% (95% CI) as an aid in the diagnosis of deep vein thrombosis (DVT) and pulmonary embolism when there is low or moderate pretest probability of PE or DVT. D-Dimer values are expressed in initial fibrinogen equivalent units (FEU)" The assay results should be used with other information, including the clinical context, in forming a diagnosis. Lab Interpretation (test code = 35847-1) Normal [facility]-[id number] 00:28:00* Test Item Value Reference Range Interpretation Comments D-DIMER (test code = 3589929964) See_Comment [Automated message] The system which generated this result transmitted reference range: <0.50 ?g/mL (FEU). The reference range was not used to interpret this result as normal/abnormal. BEVERLY (test code = BEVERLY) This test may be used in conjunction with a clinical pretest probability (PTP) assessment model to exclude venous thromboembolism (VTE) in patients suspected of deep venous thrombosis (DVT) and pulmonary embolism (PE) A D-Dimer value less than 0.50 ?g/ml (FEU) has a negative predicative value of 96 to 100% (95% CI)and 97 to 100% (95% CI) as an aid in the diagnosis of deep vein thrombosis (DVT) and pulmonary embolism when there is low or moderate pretest probability of PE or DVT. D-Dimer values are expressed in initial fibrinogen equivalent units (FEU)" The assay results should be used with other information, including the clinical context, in forming a diagnosis. Lab Interpretation (test code = 20919-2) Normal [facility]-[id number] 00:28:00* Test Item Value Reference Range Interpretation Comments D-DIMER (test code = 9572579050) See_Comment [Automated message] The system which generated this result transmitted reference range: <0.50 ?g/mL (FEU). The reference range was not used to interpret this result as normal/abnormal. BEVERLY (test code = BEVERLY) This test may be used in conjunction with a clinical pretest probability (PTP) assessment model to exclude venous thromboembolism (VTE) in patients suspected of deep venous thrombosis (DVT) and pulmonary embolism (PE) A D-Dimer value less than 0.50 ?g/ml (FEU) has a negative predicative value of 96 to 100% (95% CI)and 97 to 100% (95% CI) as an aid in the diagnosis of deep vein thrombosis (DVT) and pulmonary embolism when there is low or moderate pretest probability of PE or DVT. D-Dimer values are expressed in initial fibrinogen equivalent units (FEU)" The assay results should be used with other information, including the clinical context, in forming a diagnosis. Lab Interpretation (test code = 69501-0) Normal [facility]-[id number] 00:28:00* Test Item Value Reference Range Interpretation Comments D-DIMER (test code = 8712815466) See_Comment [Automated message] The system which generated this result transmitted reference range: <0.50 ?g/mL (FEU). The reference range was not used to interpret this result as normal/abnormal. BEVERLY (test code = BEVERLY) This test may be used in conjunction with a clinical pretest probability (PTP) assessment model to exclude venous thromboembolism (VTE) in patients suspected of deep venous thrombosis (DVT) and pulmonary embolism (PE) A D-Dimer value less than 0.50 ?g/ml (FEU) has a negative predicative value of 96 to 100% (95% CI)and 97 to 100% (95% CI) as an aid in the diagnosis of deep vein thrombosis (DVT) and pulmonary embolism when there is low or moderate pretest probability of PE or DVT. D-Dimer values are expressed in initial fibrinogen equivalent units (FEU)" The assay results should be used with other information, including the clinical context, in forming a diagnosis. Lab Interpretation (test code = 23811-3) Normal [facility]-[id number] 00:28:00* Test Item Value Reference Range Interpretation Comments D-DIMER (test code = 3868508921) See_Comment [Automated message] The system which generated this result transmitted reference range: <0.50 ?g/mL (FEU). The reference range was not used to interpret this result as normal/abnormal. BEVERLY (test code = BEVERLY) This test may be used in conjunction with a clinical pretest probability (PTP) assessment model to exclude venous thromboembolism (VTE) in patients suspected of deep venous thrombosis (DVT) and pulmonary embolism (PE) A D-Dimer value less than 0.50 ?g/ml (FEU) has a negative predicative value of 96 to 100% (95% CI)and 97 to 100% (95% CI) as an aid in the diagnosis of deep vein thrombosis (DVT) and pulmonary embolism when there is low or moderate pretest probability of PE or DVT. D-Dimer values are expressed in initial fibrinogen equivalent units (FEU)" The assay results should be used with other information, including the clinical context, in forming a diagnosis. Lab Interpretation (test code = 46861-3) Normal [facility]-[id number] 00:28:00* Test Item Value Reference Range Interpretation Comments D-DIMER (test code = 0171234247) See_Comment [Automated message] The system which generated this result transmitted reference range: <0.50 ?g/mL (FEU). The reference range was not used to interpret this result as normal/abnormal. BEVERLY (test code = BEVERLY) This test may be used in conjunction with a clinical pretest probability (PTP) assessment model to exclude venous thromboembolism (VTE) in patients suspected of deep venous thrombosis (DVT) and pulmonary embolism (PE) A D-Dimer value less than 0.50 ?g/ml (FEU) has a negative predicative value of 96 to 100% (95% CI)and 97 to 100% (95% CI) as an aid in the diagnosis of deep vein thrombosis (DVT) and pulmonary embolism when there is low or moderate pretest probability of PE or DVT. D-Dimer values are expressed in initial fibrinogen equivalent units (FEU)" The assay results should be used with other information, including the clinical context, in forming a diagnosis. Lab Interpretation (test code = 74379-7) Normal [facility]-[id number] 00:28:00* Test Item Value Reference Range Interpretation Comments D-DIMER (test code = 3026864042) See_Comment [Automated message] The system which generated this result transmitted reference range: <0.50 ?g/mL (FEU). The reference range was not used to interpret this result as normal/abnormal. BEVERLY (test code = BEVERLY) This test may be used in conjunction with a clinical pretest probability (PTP) assessment model to exclude venous thromboembolism (VTE) in patients suspected of deep venous thrombosis (DVT) and pulmonary embolism (PE) A D-Dimer value less than 0.50 ?g/ml (FEU) has a negative predicative value of 96 to 100% (95% CI)and 97 to 100% (95% CI) as an aid in the diagnosis of deep vein thrombosis (DVT) and pulmonary embolism when there is low or moderate pretest probability of PE or DVT. D-Dimer values are expressed in initial fibrinogen equivalent units (FEU)" The assay results should be used with other information, including the clinical context, in forming a diagnosis. Lab Interpretation (test code = 27160-9) Normal [facility]-[id number] 00:28:00* Test Item Value Reference Range Interpretation Comments D-DIMER (test code = 2519088025) See_Comment [Automated message] The system which generated this result transmitted reference range: <0.50 ?g/mL (FEU). The reference range was not used to interpret this result as normal/abnormal. BEVERLY (test code = BEVERLY) This test may be used in conjunction with a clinical pretest probability (PTP) assessment model to exclude venous thromboembolism (VTE) in patients suspected of deep venous thrombosis (DVT) and pulmonary embolism (PE) A D-Dimer value less than 0.50 ?g/ml (FEU) has a negative predicative value of 96 to 100% (95% CI)and 97 to 100% (95% CI) as an aid in the diagnosis of deep vein thrombosis (DVT) and pulmonary embolism when there is low or moderate pretest probability of PE or DVT. D-Dimer values are expressed in initial fibrinogen equivalent units (FEU)" The assay results should be used with other information, including the clinical context, in forming a diagnosis. Lab Interpretation (test code = 70688-1) [facility] Test Item Value Reference Range Interpretation Comme nts APPEARANCE (test code = 8446166660) Clear Clear COLOR (test code = 6757410044) Yellow Yellow PH (test code = 0531753735) 4.8-8.0 SP GRAVITY (test code = 8266060516) 1.003-1.030 GLU U QUAL (test code = 0512924806) Normal Normal BLOOD (test code = 7072017999) Negative Negative KETONES (test code = 4812033674) Negative Negative PROTEIN (test code = 2887-8) Negative Negative UROBILIN (test code = 5356178504) Normal Normal BILIRUBIN (test code = 8653517387) Negative Negative NITRITE (test code = 3358851663) Negative Negative LEUK BUTCH (test code = 8791246534) Negative Negative RBC/HPF (test code = 6483421250) <1 See_Comment [Automated [employer]] The system which generated this result transmitted reference range: 0 - 3 HPF. The reference range was not used to interpret this result as normal/abnormal. WBC/HPF (test code = 8930936851) See_Comment [Automated [employer]] The system which generated this result transmitted reference range: 0 - 5 HPF. The reference range was not used to interpret this result as normal/abnormal. BACTERIA (test code = 4895413306) Negative Negative HYAL CAST (test code = 0750438705) See_Comment H [Automated [employer]] The system which generated this result transmitted reference range: <=2 LPF. The reference range was not used to interpret this result as normal/abnormal. Lab Interpretation (test code = 44511-1) [facility]* Test Item Value Reference Range Interpretation Comme nts APPEARANCE (test code = 0166816043) Clear Clear COLOR (test code = 3856204043) Yellow Yellow PH (test code = 7537460597) 4.8-8.0 SP GRAVITY (test code = 7490259466) 1.003-1.030 GLU U QUAL (test code = 2586411637) Normal Normal BLOOD (test code = 6262308143) Negative Negative KETONES (test code = 5320249755) Negative Negative PROTEIN (test code = 2887-8) Negative Negative UROBILIN (test code = 7827779898) Normal Normal BILIRUBIN (test code = 7405658525) Negative Negative NITRITE (test code = 0664105217) Negative Negative LEUK BUTCH (test code = 7791987787) Negative Negative RBC/HPF (test code = 0648052447) <1 See_Comment [Automated [employer]] The system which generated this result transmitted reference range: 0 - 3 HPF. The reference range was not used to interpret this result as normal/abnormal. WBC/HPF (test code = 5959304603) See_Comment [Automated [employer]] The system which generated this result transmitted reference range: 0 - 5 HPF. The reference range was not used to interpret this result as normal/abnormal. BACTERIA (test code = 5235830031) Negative Negative HYAL CAST (test code = 9851140256) See_Comment H [Automated [employer]] The system which generated this result transmitted reference range: <=2 LPF. The reference range was not used to interpret this result as normal/abnormal. Lab Interpretation (test code = 05132-9) [facility]normal [facility]07:00* Test Item Value Reference Range Interpretation Comme nts APPEARANCE (test code = 5836027594) Clear Clear COLOR (test code = 5469040347) Yellow Yellow PH (test code = 6758052772) 4.8-8.0 SP GRAVITY (test code = 6002240362) 1.003-1.030 GLU U QUAL (test code = 8111739879) Normal Normal BLOOD (test code = 7675511339) Negative Negative KETONES (test code = 1029684615) Negative Negative PROTEIN (test code = 2887-8) Negative Negative UROBILIN (test code = 3890060522) Normal Normal BILIRUBIN (test code = 7400413939) Negative Negative NITRITE (test code = 2391017390) Negative Negative LEUK BUTCH (test code = 3841391980) Negative Negative RBC/HPF (test code = 3618057640) <1 See_Comment [Automated [employer]] The system which generated this result transmitted reference range: 0 - 3 HPF. The reference range was not used to interpret this result as normal/abnormal. WBC/HPF (test code = 4934114395) See_Comment [Automated [employer]] The system which generated this result transmitted reference range: 0 - 5 HPF. The reference range was not used to interpret this result as normal/abnormal. BACTERIA (test code = 7852742508) Negative Negative HYAL CAST (test code = 2457439095) See_Comment H [Automated [employer]] The system which generated this result transmitted reference range: <=2 LPF. The reference range was not used to interpret this result as normal/abnormal. Lab Interpretation (test code = 73269-6) [facility]07:[facility]* Test Item Value Reference Range Interpretation Comme nts APPEARANCE (test code = 0025572667) Clear Clear COLOR (test code = 6366615622) Yellow Yellow PH (test code = 3627025763) 4.8-8.0 SP GRAVITY (test code = 8424280279) 1.003-1.030 GLU U QUAL (test code = 4351304610) Normal Normal BLOOD (test code = 0499533220) Negative Negative KETONES (test code = 7506753964) Negative Negative PROTEIN (test code = 2887-8) Negative Negative UROBILIN (test code = 7994865682) Normal Normal BILIRUBIN (test code = 7286832462) Negative Negative NITRITE (test code = 3767577070) Negative Negative LEUK BUTCH (test code = 7974984130) Negative Negative RBC/HPF (test code = 1966411204) <1 See_Comment [Automated messa ge] The system which generated this result transmitted reference range: 0 - 3 HPF. The reference range was not used to interpret this result as normal/abnormal. WBC/HPF (test code = 5799831262) See_Comment [Automated messa ge] The system which generated this result transmitted reference range: 0 - 5 HPF. The reference range was not used to interpret this result as normal/abnormal. BACTERIA (test code = 1739872855) Negative Negative HYAL CAST (test code = 9994761505) See_Comment H [Automated messa ge] The system which generated this result transmitted reference range: <=2 LPF. The reference range was not used to interpret this result as normal/abnormal. Lab Interpretation (test code = 50667-9) [facility]07:[facility]* Test Item Value Reference Range Interpretation Comme nts APPEARANCE (test code = 5752099461) Clear Clear COLOR (test code = 4729852995) Yellow Yellow PH (test code = 3232901448) 4.8-8.0 SP GRAVITY (test code = 1995019837) 1.003-1.030 GLU U QUAL (test code = 2938039110) Normal Normal BLOOD (test code = 5810672039) Negative Negative KETONES (test code = 9023260770) Negative Negative PROTEIN (test code = 2887-8) Negative Negative UROBILIN (test code = 7396313455) Normal Normal BILIRUBIN (test code = 8190130986) Negative Negative NITRITE (test code = 8890313875) Negative Negative LEUK BUTCH (test code = 0414602952) Negative Negative RBC/HPF (test code = 9719532999) <1 See_Comment [Automated messa ge] The system which generated this result transmitted reference range: 0 - 3 HPF. The reference range was not used to interpret this result as normal/abnormal. WBC/HPF (test code = 9202741361) See_Comment [Automated messa ge] The system which generated this result transmitted reference range: 0 - 5 HPF. The reference range was not used to interpret this result as normal/abnormal. BACTERIA (test code = 6094056628) Negative Negative HYAL CAST (test code = 7515406643) See_Comment H [[employer]ated [employer]] The system which generated this result transmitted reference range: <=2 LPF. The reference range was not used to interpret this result as normal/abnormal. Lab Interpretation (test code = 81734-0) [facility] Test Item Value Reference Range Interpretation Comme nts APPEARANCE (test code = 6822668509) Clear Clear COLOR (test code = 0577454583) Yellow Yellow PH (test code = 9288545669) 4.8-8.0 SP GRAVITY (test code = 9148812295) 1.003-1.030 GLU U QUAL (test code = 3243078000) Normal Normal BLOOD (test code = 9922315240) Negative Negative KETONES (test code = 9891204132) Negative Negative PROTEIN (test code = 2887-8) Negative Negative UROBILIN (test code = 6339905204) Normal Normal BILIRUBIN (test code = 7767644933) Negative Negative NITRITE (test code = 2402746172) Negative Negative LEUK BUTCH (test code = 0025590570) Negative Negative RBC/HPF (test code = 4096188627) <1 See_Comment [Automated messa ge] The system which generated this result transmitted reference range: 0 - 3 HPF. The reference range was not used to interpret this result as normal/abnormal. WBC/HPF (test code = 3153782478) See_Comment [[employer]ated [employer]] The system which generated this result transmitted reference range: 0 - 5 HPF. The reference range was not used to interpret this result as normal/abnormal. BACTERIA (test code = 1651219428) Negative Negative HYAL CAST (test code = 5011215515) See_Comment H [Automated messa ge] The system which generated this result transmitted reference range: <=2 LPF. The reference range was not used to interpret this result as normal/abnormal. Lab Interpretation (test code = 91252-8) [facility]07:[facility]* Test Item Value Reference Range Interpretation Comme nts APPEARANCE (test code = 0925374712) Clear Clear COLOR (test code = 1909838914) Yellow Yellow PH (test code = 0134519295) 4.8-8.0 SP GRAVITY (test code = 1987514516) 1.003-1.030 GLU U QUAL (test code = 3106991942) Normal Normal BLOOD (test code = 3528024368) Negative Negative KETONES (test code = 9378400383) Negative Negative PROTEIN (test code = 2887-8) Negative Negative UROBILIN (test code = 7391189649) Normal Normal BILIRUBIN (test code = 3094053642) Negative Negative NITRITE (test code = 7214730133) Negative Negative LEUK BUTCH (test code = 1696632661) Negative Negative RBC/HPF (test code = 3878859970) <1 See_Comment [Automated messa ge] The system which generated this result transmitted reference range: 0 - 3 HPF. The reference range was not used to interpret this result as normal/abnormal. WBC/HPF (test code = 8857980743) See_Comment [Automated messa ge] The system which generated this result transmitted reference range: 0 - 5 HPF. The reference range was not used to interpret this result as normal/abnormal. BACTERIA (test code = 4122833927) Negative Negative HYAL CAST (test code = 6563446745) See_Comment H [Automated messa ge] The system which generated this result transmitted reference range: <=2 LPF. The reference range was not used to interpret this result as normal/abnormal. Lab Interpretation (test code = 49999-7) [facility]07:00* Test Item Value Reference Range Interpretation Comme nts APPEARANCE (test code = 2200171668) Clear Clear COLOR (test code = 5076308952) Yellow Yellow PH (test code = 5132538315) 4.8-8.0 SP GRAVITY (test code = 3032847340) 1.003-1.030 GLU U QUAL (test code = 1704319230) Normal Normal BLOOD (test code = 5537248996) Negative Negative KETONES (test code = 2196192811) Negative Negative PROTEIN (test code = 2887-8) Negative Negative UROBILIN (test code = 8028643258) Normal Normal BILIRUBIN (test code = 6471776618) Negative Negative NITRITE (test code = 3988982681) Negative Negative LEUK BUTCH (test code = 1715217805) Negative Negative RBC/HPF (test code = 2780224623) <1 See_Comment [Automated messa ge] The system which generated this result transmitted reference range: 0 - 3 HPF. The reference range was not used to interpret this result as normal/abnormal. WBC/HPF (test code = 4897102642) See_Comment [Automated messa ge] The system which generated this result transmitted reference range: 0 - 5 HPF. The reference range was not used to interpret this result as normal/abnormal. BACTERIA (test code = 2940062604) Negative Negative HYAL CAST (test code = 0604313053) See_Comment H [Automated messa ge] The system which generated this result transmitted reference range: <=2 LPF. The reference range was not used to interpret this result as normal/abnormal. Lab Interpretation (test code = 23679-6) [facility]07:[facility]* Test Item Value Reference Range Interpretation Comme nts APPEARANCE (test code = 4091541987) Clear Clear COLOR (test code = 6485947948) Yellow Yellow PH (test code = 8883596824) 4.8-8.0 SP GRAVITY (test code = 0576615993) 1.003-1.030 GLU U QUAL (test code = 4020696103) Normal Normal BLOOD (test code = 7187200313) Negative Negative KETONES (test code = 2371144358) Negative Negative PROTEIN (test code = 2887-8) Negative Negative UROBILIN (test code = 2822603640) Normal Normal BILIRUBIN (test code = 6572008144) Negative Negative NITRITE (test code = 3848141557) Negative Negative LEUK BUTCH (test code = 2231308046) Negative Negative RBC/HPF (test code = 9868909766) <1 See_Comment [Automated messa ge] The system which generated this result transmitted reference range: 0 - 3 HPF. The reference range was not used to interpret this result as normal/abnormal. WBC/HPF (test code = 6385956334) See_Comment [Automated messa ge] The system which generated this result transmitted reference range: 0 - 5 HPF. The reference range was not used to interpret this result as normal/abnormal. BACTERIA (test code = 6360311419) Negative Negative HYAL CAST (test code = 3441851617) See_Comment H [Automated messa ge] The system which generated this result transmitted reference range: <=2 LPF. The reference range was not used to interpret this result as normal/abnormal. Lab Interpretation (test code = 57794-7) Abnormal [facility]2020-07-16 10:47:00* Test Item Value Reference Range Interpretation Comme nts Briggs (test code = 6447174640) 0.9 mmol/L 0.6-1.2 BEVERLY (test code = BEVERLY) Toxic Range: ? Greater than 1.2 mmol/L Lab Interpretation (test code = 84092-2) Normal [address]07-16 10:47:00* Test Item Value Reference Range Interpretation Comme nts Briggs (test code = 3377177340) 0.9 mmol/L 0.6-1.2 BEVERLY (test code = BEVERLY) Toxic Range: ? Greater than 1.2 mmol/L Lab Interpretation (test code = 86013-1) Normal [address]07-16 10:47:00* Test Item Value Reference Range Interpretation Comme nts Briggs (test code = 2290528995) 0.9 mmol/L 0.6-1.2 BEVERLY (test code = BEVERLY) Toxic Range: ? Greater than 1.2 mmol/L Lab Interpretation (test code = 22073-2) Normal [address]07-16 10:47:00* Test Item Value Reference Range Interpretation Comme nts Briggs (test code = 2203733503) 0.9 mmol/L 0.6-1.2 BEVERLY (test code = BEVERLY) Toxic Range: ? Greater than 1.2 mmol/L Lab Interpretation (test code = 15474-7) Normal [address]07-16 10:47:00* Test Item Value Reference Range Interpretation Comme nts Briggs (test code = 0030730912) 0.9 mmol/L 0.6-1.2 BEVERLY (test code = BEVERLY) Toxic Range: ? Greater than 1.2 mmol/L Lab Interpretation (test code = 98928-2) Normal [address]07-16 10:47:00* Test Item Value Reference Range Interpretation Comme nts Briggs (test code = 8670245922) 0.9 mmol/L 0.6-1.2 BEVERLY (test code = BEVERLY) Toxic Range: ? Greater than 1.2 mmol/L Lab Interpretation (test code = 44462-5) [facility]2020-07-16 10:47:00* Test Item Value Reference Range Interpretation Comme nts Briggs (test code = 4080465772) 0.9 mmol/L 0.6-1.2 BEVERLY (test code = BEVERLY) Toxic Range: ? Greater than 1.2 mmol/L Lab Interpretation (test code = 72529-5) [address]07-16 10:47:00* Test Item Value Reference Range Interpretation Comme nts Briggs (test code = 5346459983) 0.9 mmol/L 0.6-1.2 BEVERLY (test code = BEVERLY) Toxic Range: ? Greater than 1.2 mmol/L Lab Interpretation (test code = 70125-5) [address]07-16 10:47:00* Test Item Value Reference Range Interpretation Comme nts Briggs (test code = 9964534465) 0.9 mmol/L 0.6-1.2 BEVERLY (test code = BEVERLY) Toxic Range: ? Greater than 1.2 mmol/L Lab Interpretation (test code = 32415-8) [address]07-16 10:47:00* Test Item Value Reference Range Interpretation Comme nts Briggs (test code = 3328526533) 0.9 mmol/L 0.6-1.2 BEVERLY (test code = BEVERLY) Toxic Range: ? Greater than 1.2 mmol/L Lab Interpretation (test code = 38182-3) [address]07-16 10:47:00* Test Item Value Reference Range Interpretation Comme nts Briggs (test code = 6894153142) 0.9 mmol/L 0.6-1.2 BEVERLY (test code = BEVERLY) Toxic Range: ? Greater than 1.2 mmol/L Lab Interpretation (test code = 04085-5) [facility]2020-07-16 10:47:00* Test Item Value Reference Range Interpretation Comme nts Briggs (test code = 2796093906) 0.9 mmol/L 0.6-1.2 BEVERLY (test code = BEVERLY) Toxic Range: ? Greater than 1.2 mmol/L Lab Interpretation (test code = 63852-4) [place] [address]-07-16 10:47:00* Test Item Value Reference Range Interpretation Comme nts Briggs (test code = 1291545791) 0.9 mmol/L 0.6-1.2 BEVERLY (test code = BEVERLY) Toxic Range: ? Greater than 1.2 mmol/L Lab Interpretation (test code = 01956-5) [facility]2020-07-16 10:47:00* Test Item Value Reference Range Interpretation Comme nts Briggs (test code = 8787795352) 0.9 mmol/L 0.6-1.2 BEVERLY (test code = BEVERLY) Toxic Range: ? Greater than 1.2 mmol/L Lab Interpretation (test code = 23136-1) [facility]2020-07-16 10:47:00* Test Item Value Reference Range Interpretation Comme nts Briggs (test code = 2301776308) 0.9 mmol/L 0.6-1.2 BEVERLY (test code = BEVERLY) Toxic Range: ? Greater than 1.2 mmol/L Lab Interpretation (test code = 15810-8) [place] [address]-07-16 10:47:00* Test Item Value Reference Range Interpretation Comme nts Briggs (test code = 8764986368) 0.9 mmol/L 0.6-1.2 BEVERLY (test code = BEVERLY) Toxic Range: ? Greater than 1.2 mmol/L Lab Interpretation (test code = 36994-7) [facility]2020-07-16 10:47:00* Test Item Value Reference Range Interpretation Comme nts Briggs (test code = 5213366787) 0.9 mmol/L 0.6-1.2 BEVERLY (test code = BEVERLY) Toxic Range: ? Greater than 1.2 mmol/L Lab Interpretation (test code = 65159-8) [facility]2020-07-16 10:47:00* Test Item Value Reference Range Interpretation Comme nts Briggs (test code = 3202489510) 0.9 mmol/L 0.6-1.2 BEVERLY (test code = BEVERLY) Toxic Range: ? Greater than 1.2 mmol/L Lab Interpretation (test code = 86210-5) [address]07-16 10:47:00* Test Item Value Reference Range Interpretation Comme nts Briggs (test code = 0230749519) 0.9 mmol/L 0.6-1.2 BEVERLY (test code = BEVERLY) Toxic Range: ? Greater than 1.2 mmol/L Lab Interpretation (test code = 61259-6) [address]07-16 10:47:00* Test Item Value Reference Range Interpretation Comme nts Briggs (test code = 2682602077) 0.9 mmol/L 0.6-1.2 BEVERLY (test code = BEVERLY) Toxic Range: ? Greater than 1.2 mmol/L Lab Interpretation (test code = 76939-4) [facility]2020-07-16 10:47:00* Test Item Value Reference Range Interpretation Comme nts Briggs (test code = 4281187509) 0.9 mmol/L 0.6-1.2 BEVERLY (test code = BEVERLY) Toxic Range: ? Greater than 1.2 mmol/L Lab Interpretation (test code = 82967-8) [address]07-16 10:47:00* Test Item Value Reference Range Interpretation Comme nts Briggs (test code = 1669402369) 0.9 mmol/L 0.6-1.2 BEVERLY (test code = BEVERLY) Toxic Range: ? Greater than 1.2 mmol/L Lab Interpretation (test code = 50752-0) [address]07-16 10:47:00* Test Item Value Reference Range Interpretation Comme nts Briggs (test code = 1627542430) 0.9 mmol/L 0.6-1.2 BEVERLY (test code = BEVERLY) Toxic Range: ? Greater than 1.2 mmol/L Lab Interpretation (test code = 65462-2) Normal [facility]2020-07-16 10:47:00* Test Item Value Reference Range Interpretation Comme nts Briggs (test code = 3668709358) 0.9 mmol/L 0.6-1.2 BEVERLY (test code = BEVERLY) Toxic Range: ? Greater than 1.2 mmol/L Lab Interpretation (test code = 37125-8) Normal [facility]2020-07-16 10:47:00* Test Item Value Reference Range Interpretation Comme nts Briggs (test code = 4217283070) 0.9 mmol/L 0.6-1.2 BEVERLY (test code = BEVERLY) Toxic Range: ? Greater than 1.2 mmol/L Lab Interpretation (test code = 12201-1) [facility] 04:39:00* Test Item Value Reference Range Interpretation Comme nts APPEARANCE (test code = 5766761565) Clear Clear COLOR (test code = 6736994217) Straw Yellow A PH (test code = 7881451526) 4.8-8.0 SP GRAVITY (test code = 7669678207) 1.003-1.030 GLU U QUAL (test code = 0049527988) Normal Normal BLOOD (test code = 1665122803) Negative Negative KETONES (test code = 9333811133) Negative Negative PROTEIN (test code = 2887-8) Negative Negative UROBILIN (test code = 6436385767) Normal Normal BILIRUBIN (test code = 4405408989) Negative Negative NITRITE (test code = 0759394449) Negative Negative LEUK BUTCH (test code = 5639488382) Negative Negative RBC/HPF (test code = 5856172694) See_Comment [Automated [employer]] The system which generated this result transmitted reference range: 0 - 3 HPF. The reference range was not used to interpret this result as normal/abnormal. WBC/HPF (test code = 8585905185) See_Comment [Automated [employer]] The system which generated this result transmitted reference range: 0 - 5 HPF. The reference range was not used to interpret this result as normal/abnormal. BACTERIA (test code = 3540152433) Few Negative A MUCOUS (test code = 1989269457) Slight Negative LPF A SQ EPITH (test code = 6559811849) <1 HPF Lab Interpretation (test code = 03248-2) Abnormal [facility] METABOLIC PANEL (NA, K, CL, CO2, GLUCOSE, BUN, CREATININE, CA)2019-10-27 03:20:00* Test Item Value Reference Range Interpretation Comme nts NA (test code = 5725309621) 139 mmol/L 135-145 K (test code = 2060460596) 4.2 mmol/L 3.5-5 CL (test code = 7359858824) 107 mmol/L 98-108 CO2 TOTAL (test code = 6073428928) 24 mmol/L 23-31 AGAP (test code = 0119170865) 2-16 BUN (test code = 3819279800) 12 mg/dL 7-23 GLUCOSE (test code = 1667767391) 108 mg/dL 70-110 CREATININE (test code = 8309589618) 0.78 mg/dL 0.6-1.25 CALCIUM (test code = 4757206169) 9.6 mg/dL 8.6-10.6 eGFR Calculation (Non-) (test code = 1298986246) mL/min/1.73m2 eGFR Calculation () (test code = 5513328681) mL/min/1.73m2 BEVERLY (test code = BEVERLY) Association of Glomerular Filtration Rate (GFR) and Staging of Kidney Disease* + -+ + ---+| GFR (mL/min/1.73 m2) ?| With Kidney Damage ?| ?Without Kidney Damage+ -------+ ------+ ---------+| ?>90 ?| ?Stage one ?| ? Normal ?+ --+ -+ ----+| ?60-89 ?| ?Stage two ?| ? Decreased GFR ? + -+ + ---+| ?30-59 ?| ?Stage three ?| ? Stage three ? + -+ + ---+| ?15-29 ?| ?Stage four ? | ? Stage four ?+ --+ -+ ----+| ?<15 (or dialysis) ? ?| ?Stage five ? | ? Stage five ?+ --+ -+ ----+ *Each stage assumes the associated GFR level has been in effect for at least three months. ?Stages 1 to 5, with or without kidney disease, indicate chronic kidney disease. Notes: Determination of stages one and two (with eGFR >59mL/min/1.73 m2) requires estimation of kidney damage for at least three months as defined by structural or functional abnormalities of the kidney, manifested by either:Pathological abnormalities or Markers of kidney damage (including abnormalities in the composition of the blood or urine or abnormalities in imaging tests). [facility] [id number] 03:13:41Mild left parietal scalp swelling. No acute intracranial abnormality. Preliminary Report Dictated by Resident: Eros Figueroa I, Mounika Black MD., have reviewed this study and agree with theabove report.CT HEAD WO CONTRAST HISTORY: Seizure, new, abn neuro exam, nontraumatic COMPARISON: MRI dated 04/02/2015. TECHNIQUE: Noncontrast CT scan of the head with coronal and sagittalreformats was performed. FINDINGS: The ventricles and cerebral sulci are normal in caliberand configuration.No hydrocephalus, midline shift or pathological extra-axial fluidcollection is present. Low-lying cerebellar tonsils with mild crowding ofthe foramen magnum noted without deepika tonsillar ectopia. The basalcisterns are unremarkable. There is no acute intracranial hemorrhage or significant mass effect. Noparenchymal attenuation abnormality. The carvajal-white matter differentiationis preserved. The mastoid air cells and paranasal air sinuses are clear. Left parietalsoft tissue swelling noted. The calvarium and central skull base areunremarkable. [facility], Radiant Results Inft User - 10/26/2019 10:14 PM CDTCT HEAD WO CONTRASTHISTORY: Seizure, new, abn neuro exam, nontraumatic COMPARISON: MRI dated 04/02/2015.TECHNIQUE: Noncontrast CT scan of the head with coronal and sagittalreformats was performed.FINDINGS:The ventricles and cerebral sulci are normal in caliber and configuration.No hydrocephalus, midline shift or pathological extra-axial fluidcollection is present. Low-lying cerebellar tonsils with mild crowding ofthe foramen magnum noted without deepika tonsillar ectopia. Thebasalcisterns are unremarkable.There is no acute intracranial hemorrhage or significant mass effect. Noparenchymal attenuation abnormality. The carvajal-white matter differentiationis preserved. The mastoid air cells and paranasal air sinuses are clear. Left parietalsoft tissue swelling noted. The calvarium and central skull base areunremarkable.IMPRESSIONMild left parietal scalp swelling.No acute int racranial abnormality.Preliminary Report Dictated by Resident: Mounika Covarrubias MD., have reviewed this study and agree with theabove report.[facility] 2019-10-27 03:13:41Mild left parietal scalp swelling. No acute intracranial abnormality. Preliminary Report Dictated by Resident: Mounika Fitzgerald MD., have reviewed this study and agree with theabove report.CT HEAD WO CONTRAST HISTORY: Seizure, new, abn neuro exam, nontraumatic COMPARISON: MRI dated 04/02/2015. TECHNIQUE: Noncontrast CT scan of the head with coronal and sagittalreformats was performed. FINDINGS: The ventricles and cerebral sulci are normal in caliberand configuration.No hydrocephalus, midline shift or pathological extra-axial fluidcollection is pre sent. Low-lying cerebellar tonsils with mild crowding ofthe foramen magnum noted without deepika tonsillar ectopia. The basalcisterns are unremarkable. There is no acute intracranial hemorrhage or significant mass effect. Noparenchymal attenuation abnormality. The carvajal-white matter differentiationis preserved. The mastoid air cells and paranasal air sinuses are clear. Left parietalsoft tissue swelling noted. The calvarium and central skull base areunremarkable. [facility], [facility] Inft User - 10/26/2019 10:14 PM CDTCT HEAD WO CONTRASTHISTORY: Seizure, new, abn neuro exam, nontraumatic COMPARISON: MRI dated 04/02/2015.TECHNIQUE: Noncontrast CT scan of the head with coronal and sagittalreformats was performed.FINDINGS:The ventricles and cerebral sulci are normal in caliber and configuration.No hydrocephalus, midline shift or pathological extra-axial fluidcollection is present. Low-lying cerebellar tonsils with mild crowding ofthe foramen magnum noted without deepika tonsillar ectopia. Thebasalcisterns are unremarkable.There is no acute intracranial hemorrhage or significant mass effect. Noparenchymal attenuation abnormality. The carvajal-white matter differentiationis preserved. The mastoid air cells and paranasal air sinuses are clear. Left parietalsoft tissue swelling noted. The calvarium and central skull base areunremarkable.IMPRESSIONMild left parietal scalp swelling.No acute intracranial abnormality.Preliminary Report Dictated by Resident: Mounika Covarrubias MD., have reviewed this study and agree with theabove report.[facility] [id number] 03:13:41Mild left parietal scalp swelling. No acute intracranial abnormality. Preliminary Report Dictated by Resident: Mounika Fitzgerald MD., have reviewed this study and agree with theabove report.CT HEAD WO CONTRAST HISTORY: Seizure, new, abn neuro exam, nontraumatic COMPARISON: MRI dated 04/02/2015. TECHNIQUE: Noncontrast CT scan of the head with coronal and sagittalreformats was performed. FINDINGS: The ventricles and cerebral sulci are normal in caliberand configuration.No hydrocephalus, midline shift or pathological extra-axial fluidcollection is present. Low-lying cerebellar tonsils with mild crowding ofthe foramen magnum noted without deepika tonsillar ectopia. The basalcisterns are unremarkable. There is no acute intracranial hemorrhage or significant mass effect. Noparenchymal attenuation abnormality. The carvajal-white matter differentiationis preserved. The mastoid air cells and paranasal air sinuses are clear. Left parietalsoft tissue swelling noted. The calvarium and central skull base areunremarkable. [facility], [facility] Inft User - 10/26/2019 10:14 PM CDTCT HEAD WO CONTRASTHISTORY: Seizure, new, abn neuro exam, nontraumatic COMPARISON: MRI dated 04/02/2015.TECHNIQUE: Noncontrast CT scan of the head with coronal and sagittalreformats was performed.FINDINGS:The ventricles and cerebral sulci are normal in caliber and configuration.No hydrocephalus, midline shift or pathological extra-axial fluidcollection is present. Low-lying cerebellar tonsils with mild crowding ofthe foramen magnum noted without deepika tonsillar ectopia. Thebasalcisterns are unremarkable.There is no acute intracranial hemorrhage or significant mass effect. Noparenchymal attenuation abnormality. The carvajal-white matter differentiationis preserved. The mastoid air cells and paranasal air sinuses are clear. Left parietalsoft tissue swelling noted. The calvarium and central skull base areunremarkable.IMPRESSIONMild left parietal scalp swelling.No acute int racranial abnormality.Preliminary Report Dictated by Resident: Mounika Covarrubias MD., have reviewed this study and agree with theabove report.[facility] 2019-10-27 03:13:41Mild left parietal scalp swelling. No acute intracranial abnormality. Preliminary Report Dictated by Resident: Mounika Fitzgerald MD., have reviewed this study and agree with theabove report.CT HEAD WO CONTRAST HISTORY: Seizure, new, abn neuro exam, nontraumatic COMPARISON: MRI dated 04/02/2015. TECHNIQUE: Noncontrast CT scan of the head with coronal and sagittalreformats was performed. FINDINGS: The ventricles and cerebral sulci are normal in caliberand configuration.No hydrocephalus, midline shift or pathological extra-axial fluidcollection is pre sent. Low-lying cerebellar tonsils with mild crowding ofthe foramen magnum noted without deepika tonsillar ectopia. The basalcisterns are unremarkable. There is no acute intracranial hemorrhage or significant mass effect. Noparenchymal attenuation abnormality. The carvajal-white matter differentiationis preserved. The mastoid air cells and paranasal air sinuses are clear. Left parietalsoft tissue swelling noted. The calvarium and central skull base areunremarkable. [facility], [facility] In[facility] User - 10/26/2019 10:14 PM CDTCT HEAD WO CONTRASTHISTORY: Seizure, new, abn neuro exam, nontraumatic COMPARISON: MRI dated 04/02/2015.TECHNIQUE: Noncontrast CT scan of the head with coronal and sagittalreformats was performed.FINDINGS:The ventricles and cerebral sulci are normal in caliber and configuration.No hydrocephalus, midline shift or pathological extra-axial fluidcollection is present. Low-lying cerebellar tonsils with mild crowding ofthe foramen magnum noted without deepika tonsillar ectopia. Thebasalcisterns are unremarkable.There is no acute intracranial hemorrhage or significant mass effect. Noparenchymal attenuation abnormality. The carvajal-white matter differentiationis preserved. The mastoid air cells and paranasal air sinuses are clear. Left parietalsoft tissue swelling noted. The calvarium and central skull base areunremarkable.IMPRESSIONMild left parietal scalp swelling.No acute intracranial abnormality.Preliminary Report Dictated by Resident: Mounika Covarrubias MD., have reviewed this study and agree with theabove report.[facility] [id number] 03:13:41Mild left parietal scalp swelling. No acute intracranial abnormality. Preliminary Report Dictated by Resident: Mounika Fitzgerald MD., have reviewed this study and agree with theabove report.CT HEAD WO CONTRAST HISTORY: Seizure, new, abn neuro exam, nontraumatic COMPARISON: MRI dated 04/02/2015. TECHNIQUE: Noncontrast CT scan of the head with coronal and sagittalreformats was performed. FINDINGS: The ventricles and cerebral sulci are normal in caliberand configuration.No hydrocephalus, midline shift or pathological extra-axial fluidcollection is present. Low-lying cerebellar tonsils with mild crowding ofthe foramen magnum noted without deepika tonsillar ectopia. The basalcisterns are unremarkable. There is no acute intracranial hemorrhage or significant mass effect. Noparenchymal attenuation abnormality. The carvajal-white matter differentiationis preserved. The mastoid air cells and paranasal air sinuses are clear. Left parietalsoft tissue swelling noted. The calvarium and central skull base areunremarkable. [facility], [facility] In[facility] User - 10/26/2019 10:14 PM CDTCT HEAD WO CONTRASTHISTORY: Seizure, new, abn neuro exam, nontraumatic COMPARISON: MRI dated 04/02/2015.TECHNIQUE: Noncontrast CT scan of the head with coronal and sagittalreformats was performed.FINDINGS:The ventricles and cerebral sulci are normal in caliber and configuration.No hydrocephalus, midline shift or pathological extra-axial fluidcollection is present. Low-lying cerebellar tonsils with mild crowding ofthe foramen magnum noted without deepika tonsillar ectopia. Thebasalcisterns are unremarkable.There is no acute intracranial hemorrhage or significant mass effect. Noparenchymal attenuation abnormality. The carvajal-white matter differentiationis preserved. The mastoid air cells and paranasal air sinuses are clear. Left parietalsoft tissue swelling noted. The calvarium and central skull base areunremarkable.IMPRESSIONMild left parietal scalp swelling.No acute int racranial abnormality.Preliminary Report Dictated by Resident: Mounika Covarrubias MD., have reviewed this study and agree with theabove report.[facility] 2019-10-27 03:13:41Mild left parietal scalp swelling. No acute intracranial abnormality. Preliminary Report Dictated by Resident: Mounika Fitzgerald MD., have reviewed this study and agree with theabove report.CT HEAD WO CONTRAST HISTORY: Seizure, new, abn neuro exam, nontraumatic COMPARISON: MRI dated 04/02/2015. TECHNIQUE: Noncontrast CT scan of the head with coronal and sagittalreformats was performed. FINDINGS: The ventricles and cerebral sulci are normal in caliberand configuration.No hydrocephalus, midline shift or pathological extra-axial fluidcollection is pre sent. Low-lying cerebellar tonsils with mild crowding ofthe foramen magnum noted without deepika tonsillar ectopia. The basalcisterns are unremarkable. There is no acute intracranial hemorrhage or significant mass effect. Noparenchymal attenuation abnormality. The carvajal-white matter differentiationis preserved. The mastoid air cells and paranasal air sinuses are clear. Left parietalsoft tissue swelling noted. The calvarium and central skull base areunremarkable. [facility], [facility] Inft User - 10/26/2019 10:14 PM CDTCT HEAD WO CONTRASTHISTORY: Seizure, new, abn neuro exam, nontraumatic COMPARISON: MRI dated 04/02/2015.TECHNIQUE: Noncontrast CT scan of the head with coronal and sagittalreformats was performed.FINDINGS:The ventricles and cerebral sulci are normal in caliber and configuration.No hydrocephalus, midline shift or pathological extra-axial fluidcollection is present. Low-lying cerebellar tonsils with mild crowding ofthe foramen magnum noted without deepika tonsillar ectopia. Thebasalcisterns are unremarkable.There is no acute intracranial hemorrhage or significant mass effect. Noparenchymal attenuation abnormality. The carvajal-white matter differentiationis preserved. The mastoid air cells and paranasal air sinuses are clear. Left parietalsoft tissue swelling noted. The calvarium and central skull base areunremarkable.IMPRESSIONMild left parietal scalp swelling.No acute intracranial abnormality.Preliminary Report Dictated by Resident: Mounika Covarrubias MD., have reviewed this study and agree with theabove report.[facility] [id number] 03:13:41Mild left parietal scalp swelling. No acute intracranial abnormality. Preliminary Report Dictated by Resident: Mounika Fitzgerald MD., have reviewed this study and agree with theabove report.CT HEAD WO CONTRAST HISTORY: Seizure, new, abn neuro exam, nontraumatic COMPARISON: MRI dated 04/02/2015. TECHNIQUE: Noncontrast CT scan of the head with coronal and sagittalreformats was performed. FINDINGS: The ventricles and cerebral sulci are normal in caliberand configuration.No hydrocephalus, midline shift or pathological extra-axial fluidcollection is present. Low-lying cerebellar tonsils with mild crowding ofthe foramen magnum noted without deepika tonsillar ectopia. The basalcisterns are unremarkable. There is no acute intracranial hemorrhage or significant mass effect. Noparenchymal attenuation abnormality. The carvajal-white matter differentiationis preserved. The mastoid air cells and paranasal air sinuses are clear. Left parietalsoft tissue swelling noted. The calvarium and central skull base areunremarkable. [facility], [facility] Inft User - 10/26/2019 10:14 PM CDTCT HEAD WO CONTRASTHISTORY: Seizure, new, abn neuro exam, nontraumatic COMPARISON: MRI dated 04/02/2015.TECHNIQUE: Noncontrast CT scan of the head with coronal and sagittalreformats was performed.FINDINGS:The ventricles and cerebral sulci are normal in caliber and configuration.No hydrocephalus, midline shift or pathological extra-axial fluidcollection is present. Low-lying cerebellar tonsils with mild crowding ofthe foramen magnum noted without deepika tonsillar ectopia. Thebasalcisterns are unremarkable.There is no acute intracranial hemorrhage or significant mass effect. Noparenchymal attenuation abnormality. The carvajal-white matter differentiationis preserved. The mastoid air cells and paranasal air sinuses are clear. Left parietalsoft tissue swelling noted. The calvarium and central skull base areunremarkable.IMPRESSIONMild left parietal scalp swelling.No acute int racranial abnormality.Preliminary Report Dictated by Resident: Mounika Covarrubias MD., have reviewed this study and agree with theabove report.[facility] 2019-10-27 03:13:41Mild left parietal scalp swelling. No acute intracranial abnormality. Preliminary Report Dictated by Resident: Mounika Fitzgerald MD., have reviewed this study and agree with theabove report.CT HEAD WO CONTRAST HISTORY: Seizure, new, abn neuro exam, nontraumatic COMPARISON: MRI dated 04/02/2015. TECHNIQUE: Noncontrast CT scan of the head with coronal and sagittalreformats was performed. FINDINGS: The ventricles and cerebral sulci are normal in caliberand configuration.No hydrocephalus, midline shift or pathological extra-axial fluidcollection is pre sent. Low-lying cerebellar tonsils with mild crowding ofthe foramen magnum noted without deepika tonsillar ectopia. The basalcisterns are unremarkable. There is no acute intracranial hemorrhage or significant mass effect. Noparenchymal attenuation abnormality. The carvajal-white matter differentiationis preserved. The mastoid air cells and paranasal air sinuses are clear. Left parietalsoft tissue swelling noted. The calvarium and central skull base areunremarkable. [facility], [facility] Inft User - 10/26/2019 10:14 PM CDTCT HEAD WO CONTRASTHISTORY: Seizure, new, abn neuro exam, nontraumatic COMPARISON: MRI dated 04/02/2015.TECHNIQUE: Noncontrast CT scan of the head with coronal and sagittalreformats was performed.FINDINGS:The ventricles and cerebral sulci are normal in caliber and configuration.No hydrocephalus, midline shift or pathological extra-axial fluidcollection is present. Low-lying cerebellar tonsils with mild crowding ofthe foramen magnum noted without deepika tonsillar ectopia. Thebasalcisterns are unremarkable.There is no acute intracranial hemorrhage or significant mass effect. Noparenchymal attenuation abnormality. The carvajal-white matter differentiationis preserved. The mastoid air cells and paranasal air sinuses are clear. Left parietalsoft tissue swelling noted. The calvarium and central skull base areunremarkable.IMPRESSIONMild left parietal scalp swelling.No acute intracranial abnormality.Preliminary Report Dictated by Resident: Mounika Covarrubias MD., have reviewed this study and agree with theabove report.[facility] [id number] 03:13:41Mild left parietal scalp swelling. No acute intracranial abnormality. Preliminary Report Dictated by Resident: Mounika Fitzgerald MD., have reviewed this study and agree with theabove report.CT HEAD WO CONTRAST HISTORY: Seizure, new, abn neuro exam, nontraumatic COMPARISON: MRI dated 04/02/2015. TECHNIQUE: Noncontrast CT scan of the head with coronal and sagittalreformats was performed. FINDINGS: The ventricles and cerebral sulci are normal in caliberand configuration.No hydrocephalus, midline shift or pathological extra-axial fluidcollection is present. Low-lying cerebellar tonsils with mild crowding ofthe foramen magnum noted without deepika tonsillar ectopia. The basalcisterns are unremarkable. There is no acute intracranial hemorrhage or significant mass effect. Noparenchymal attenuation abnormality. The carvajal-white matter differentiationis preserved. The mastoid air cells and paranasal air sinuses are clear. Left parietalsoft tissue swelling noted. The calvarium and central skull base areunremarkable. [facility], [facility] Inft User - 10/26/2019 10:14 PM CDTCT HEAD WO CONTRASTHISTORY: Seizure, new, abn neuro exam, nontraumatic COMPARISON: MRI dated 04/02/2015.TECHNIQUE: Noncontrast CT scan of the head with coronal and sagittalreformats was performed.FINDINGS:The ventricles and cerebral sulci are normal in caliber and configuration.No hydrocephalus, midline shift or pathological extra-axial fluidcollection is present. Low-lying cerebellar tonsils with mild crowding ofthe foramen magnum noted without deepika tonsillar ectopia. Thebasalcisterns are unremarkable.There is no acute intracranial hemorrhage or significant mass effect. Noparenchymal attenuation abnormality. The carvajal-white matter differentiationis preserved. The mastoid air cells and paranasal air sinuses are clear. Left parietalsoft tissue swelling noted. The calvarium and central skull base areunremarkable.IMPRESSIONMild left parietal scalp swelling.No acute int racranial abnormality.Preliminary Report Dictated by Resident: Mounika Covarrubias MD., have reviewed this study and agree with theabove report.[facility] 2019-10-27 03:13:41Mild left parietal scalp swelling. No acute intracranial abnormality. Preliminary Report Dictated by Resident: Mounika Fitzgerald MD., have reviewed this study and agree with theabove report.CT HEAD WO CONTRAST HISTORY: Seizure, new, abn neuro exam, nontraumatic COMPARISON: MRI dated 04/02/2015. TECHNIQUE: Noncontrast CT scan of the head with coronal and sagittalreformats was performed. FINDINGS: The ventricles and cerebral sulci are normal in caliber and configuration.No hydrocephalus, midline shift or pathological extra-axial fluidcollection is pr esent. Low-lying cerebellar tonsils with mild crowding ofthe foramen magnum noted without deepika tonsillar ectopia. The basalcisterns are unremarkable. There is no acute intracranial hemorrhage or significant mass effect. Noparenchymal attenuation abnormality. The carvajal-white matter differentiationispreserved. The mastoid air cells and paranasal air sinuses are clear. Left parietalsoft tissue swelling noted. The calvarium and central skull base areunremarkable. [facility], [facility] Inft 10/25/2020 10:14 PM CDTCT HEAD WO CONTRASTHISTORY: Seizure, new, abn neuro exam, nontraumatic COMPARISON: MRI dated 04/02/2015.TECHNIQUE: Noncontrast CT scan of the head with coronal and sagittalreformats was performed.FINDINGS:The ventricles and cerebral sulci are normal in caliber and configuration.No hydrocephalus, midline shift or pathological extra-axial fluidcollection is present. Low-lying cerebellar tonsils with mild crowding ofthe foramen magnum noted without deepika tonsillar ectopia. The basalcisterns are unremarkable.There is no acute intracranial hemorrhage or significant mass effect. Noparenchymal attenuation abnormality. The carvajal-white matter differentiationis preserved. The mastoid air cells and paranasal air sinuses are clear. Left parietalsoft tissue swelling noted. The calvarium and central skull base areunremarkable.IMPRESSIONMild left parietal scalp swelling.No acute intracranial abnormality.Preliminary Report Dictated by Resident: Mounika Covarrubias MD., have reviewed this study and agree with theabove report.[facility] [id number] 03:13:41Mild left parietal scalp swelling. No acute intracranial abnormality. Preliminary Report Dictated by Resident: Mounika Fitzgerald MD., have reviewed this study and agree with theabove report.CT HEAD WO CONTRAST HISTORY: Seizure, new, abn neuro exam, nontraumatic COMPARISON: MRI dated 04/02/2015. TECHNIQUE: Noncontrast CT scan of the head with coronal and sagittalreformats was performed. FINDINGS: The ventricles and cerebral sulci are normal in caliberand configuration.No hydrocephalus, midline shift or pathological extra-axial fluidcollection is present. Low-lying cerebellar tonsils with mild crowding ofthe foramen magnum noted without deepika tonsillar ectopia. The basalcisterns are unremarkable. There is no acute intracranial hemorrhage or significant mass effect. Noparenchymal attenuation abnormality. The carvajal-white matter differentiationis preserved. The mastoid air cells and paranasal air sinuses are clear. Left parietalsoft tissue swelling noted. The calvarium and central skull base areunremarkable. [facility], [facility] In[facility] User - 10/26/2019 10:14 PM CDTCT HEAD WO CONTRASTHISTORY: Seizure, new, abn neuro exam, nontraumatic COMPARISON: MRI dated 04/02/2015.TECHNIQUE: Noncontrast CT scan of the head with coronal and sagittalreformats was performed.FINDINGS:The ventricles and cerebral sulci are normal in caliber and configuration.No hydrocephalus, midline shift or pathological extra-axial fluidcollection is present. Low-lying cerebellar tonsils with mild crowding ofthe foramen magnum noted without deepika tonsillar ectopia. Thebasalcisterns are unremarkable.There is no acute intracranial hemorrhage or significant mass effect. Noparenchymal attenuation abnormality. The carvajal-white matter differentiationis preserved. The mastoid air cells and paranasal air sinuses are clear. Left parietalsoft tissue swelling noted. The calvarium and central skull base areunremarkable.IMPRESSIONMild left parietal scalp swelling.No acute int racranial abnormality.Preliminary Report Dictated by Resident: Mounika Covarrubias MD., have reviewed this study and agree with theabove report.[facility] 2019-10-27 03:13:41Mild left parietal scalp swelling. No acute intracranial abnormality. Preliminary Report Dictated by Resident: Mounika Fitzgerald MD., have reviewed this study and agree with theabove report.CT HEAD WO CONTRAST HISTORY: Seizure, new, abn neuro exam, nontraumatic COMPARISON: MRI dated 04/02/2015. TECHNIQUE: Noncontrast CT scan of the head with coronal and sagittalreformats was performed. FINDINGS: The ventricles and cerebral sulci are normal in caliberand configuration.No hydrocephalus, midline shift or pathological extra-axial fluidcollection is pre sent. Low-lying cerebellar tonsils with mild crowding ofthe foramen magnum noted without deepika tonsillar ectopia. The basalcisterns are unremarkable. There is no acute intracranial hemorrhage or significant mass effect. Noparenchymal attenuation abnormality. The carvajal-white matter differentiationis preserved. The mastoid air cells and paranasal air sinuses are clear. Left parietalsoft tissue swelling noted. The calvarium and central skull base areunremarkable. [facility], [facility] Results Inft User - 10/26/2019 10:14 PM CDTCT HEAD WO CONTRASTHISTORY: Seizure, new, abn neuro exam, nontraumatic COMPARISON: MRI dated 04/02/2015.TECHNIQUE: Noncontrast CT scan of the head with coronal and sagittalreformats was performed.FINDINGS:The ventricles and cerebral sulci are normal in caliber and configuration.No hydrocephalus, midline shift or pathological extra-axial fluidcollection is present. Low-lying cerebellar tonsils with mild crowding ofthe foramen magnum noted without deepika tonsillar ectopia. Thebasalcisterns are unremarkable.There is no acute intracranial hemorrhage or significant mass effect. Noparenchymal attenuation abnormality. The carvajal-white matter differentiationis preserved. The mastoid air cells and paranasal air sinuses are clear. Left parietalsoft tissue swelling noted. The calvarium and central skull base areunremarkable.IMPRESSIONMild left parietal scalp swelling.No acute intracranial abnormality.Preliminary Report Dictated by Resident: Mounika Covarrubias MD., have reviewed this study and agree with theabove report.[facility] [id number] 03:13:41Mild left parietal scalp swelling. No acute intracranial abnormality. Preliminary Report Dictated by Resident: Mounika Fitzgerald MD., have reviewed this study and agree with theabove report.CT HEAD WO CONTRAST HISTORY: Seizure, new, abn neuro exam, nontraumatic COMPARISON: MRI dated 04/02/2015. TECHNIQUE: Noncontrast CT scan of the head with coronal and sagittalreformats was performed. FINDINGS: The ventricles and cerebral sulci are normal in caliberand configuration.No hydrocephalus, midline shift or pathological extra-axial fluidcollection is present. Low-lying cerebellar tonsils with mild crowding ofthe foramen magnum noted without deepika tonsillar ectopia. The basalcisterns are unremarkable. There is no acute intracranial hemorrhage or significant mass effect. Noparenchymal attenuation abnormality. The carvajal-white matter differentiationis preserved. The mastoid air cells and paranasal air sinuses are clear. Left parietalsoft tissue swelling noted. The calvarium and central skull base areunremarkable. [facility], [facility] Inft User - 10/26/2019 10:14 PM CDTCT HEAD WO CONTRASTHISTORY: Seizure, new, abn neuro exam, nontraumatic COMPARISON: MRI dated 04/02/2015.TECHNIQUE: Noncontrast CT scan of the head with coronal and sagittalreformats was performed.FINDINGS:The ventricles and cerebral sulci are normal in caliber and configuration.No hydrocephalus, midline shift or pathological extra-axial fluidcollection is present. Low-lying cerebellar tonsils with mild crowding ofthe foramen magnum noted without deepika tonsillar ectopia. Thebasalcisterns are unremarkable.There is no acute intracranial hemorrhage or significant mass effect. Noparenchymal attenuation abnormality. The carvajal-white matter differentiationis preserved. The mastoid air cells and paranasal air sinuses are clear. Left parietalsoft tissue swelling noted. The calvarium and central skull base areunremarkable.IMPRESSIONMild left parietal scalp swelling.No acute int racranial abnormality.Preliminary Report Dictated by Resident: Mounika Covarrubias MD., have reviewed this study and agree with theabove report.[facility] 2019-10-27 03:13:41Mild left parietal scalp swelling. No acute intracranial abnormality. Preliminary Report Dictated by Resident: Mounika Fitzgerald MD., have reviewed this study and agree with theabove report.CT HEAD WO CONTRAST HISTORY: Seizure, new, abn neuro exam, nontraumatic COMPARISON: MRI dated 04/02/2015. TECHNIQUE: Noncontrast CT scan of the head with coronal and sagittalreformats was performed. FINDINGS: The ventricles and cerebral sulci are normal in caliberand configuration.No hydrocephalus, midline shift or pathological extra-axial fluidcollection is pre sent. Low-lying cerebellar tonsils with mild crowding ofthe foramen magnum noted without deepika tonsillar ectopia. The basalcisterns are unremarkable. There is no acute intracranial hemorrhage or significant mass effect. Noparenchymal attenuation abnormality. The carvajal-white matter differentiationis preserved. The mastoid air cells and paranasal air sinuses are clear. Left parietalsoft tissue swelling noted. The calvarium and central skull base areunremarkable. [facility], [facility] User - 10/26/2019 10:14 PM CDTCT HEAD WO CONTRASTHISTORY: Seizure, new, abn neuro exam, nontraumatic COMPARISON: MRI dated 04/02/2015.TECHNIQUE: Noncontrast CT scan of the head with coronal and sagittalreformats was performed.FINDINGS:The ventricles and cerebral sulci are normal in caliber and configuration.No hydrocephalus, midline shift or pathological extra-axial fluidcollection is present. Low-lying cerebellar tonsils with mild crowding ofthe foramen magnum noted without deepika tonsillar ectopia. Thebasalcisterns are unremarkable.There is no acute intracranial hemorrhage or significant mass effect. Noparenchymal attenuation abnormality. The carvajal-white matter differentiationis preserved. The mastoid air cells and paranasal air sinuses are clear. Left parietalsoft tissue swelling noted. The calvarium and central skull base areunremarkable.IMPRESSIONMild left parietal scalp swelling.No acute intracranial abnormality.Preliminary Report Dictated by Resident: Mounika Covarrubias MD., have reviewed this study and agree with theabove report.[facility] [id number] 03:13:41Mild left parietal scalp swelling. No acute intracranial abnormality. Preliminary Report Dictated by Resident: Mounika Fitzgerald MD., have reviewed this study and agree with theabove report.CT HEAD WO CONTRAST HISTORY: Seizure, new, abn neuro exam, nontraumatic COMPARISON: MRI dated 04/02/2015. TECHNIQUE: Noncontrast CT scan of the head with coronal and sagittalreformats was performed. FINDINGS: The ventricles and cerebral sulci are normal in caliberand configuration.No hydrocephalus, midline shift or pathological extra-axial fluidcollection is present. Low-lying cerebellar tonsils with mild crowding ofthe foramen magnum noted without deepika tonsillar ectopia. The basalcisterns are unremarkable. There is no acute intracranial hemorrhage or significant mass effect. Noparenchymal attenuation abnormality. The carvajal-white matter differentiationis preserved. The mastoid air cells and paranasal air sinuses are clear. Left parietalsoft tissue swelling noted. The calvarium and central skull base areunremarkable. [facility], [facility] User - 10/26/2019 10:14 PM CDTCT HEAD WO CONTRASTHISTORY: Seizure, new, abn neuro exam, nontraumatic COMPARISON: MRI dated 04/02/2015.TECHNIQUE: Noncontrast CT scan of the head with coronal and sagittalreformats was performed.FINDINGS:The ventricles and cerebral sulci are normal in caliber and configuration.No hydrocephalus, midline shift or pathological extra-axial fluidcollection is present. Low-lying cerebellar tonsils with mild crowding ofthe foramen magnum noted without deepika tonsillar ectopia. Thebasalcisterns are unremarkable.There is no acute intracranial hemorrhage or significant mass effect. Noparenchymal attenuation abnormality. The carvajal-white matter differentiationis preserved. The mastoid air cells and paranasal air sinuses are clear. Left parietalsoft tissue swelling noted. The calvarium and central skull base areunremarkable.IMPRESSIONMild left parietal scalp swelling.No acute int racranial abnormality.Preliminary Report Dictated by Resident: Mounika Covarrubias MD., have reviewed this study and agree with theabove report.[facility] 2019-10-27 03:13:41Mild left parietal scalp swelling. No acute intracranial abnormality. Preliminary Report Dictated by Resident: Mounika Fitzgerald MD., have reviewed this study and agree with theabove report.CT HEAD WO CONTRAST HISTORY: Seizure, new, abn neuro exam, nontraumatic COMPARISON: MRI dated 04/02/2015. TECHNIQUE: Noncontrast CT scan of the head with coronal and sagittalreformats was performed. FINDINGS: The ventricles and cerebral sulci are normal in caliberand configuration.No hydrocephalus, midline shift or pathological extra-axial fluidcollection is pre sent. Low-lying cerebellar tonsils with mild crowding ofthe foramen magnum noted without deepika tonsillar ectopia. The basalcisterns are unremarkable. There is no acute intracranial hemorrhage or significant mass effect. Noparenchymal attenuation abnormality. The carvajal-white matter differentiationis preserved. The mastoid air cells and paranasal air sinuses are clear. Left parietalsoft tissue swelling noted. The calvarium and central skull base areunremarkable. [facility], [facility] User - 10/26/2019 10:14 PM CDTCT HEAD WO CONTRASTHISTORY: Seizure, new, abn neuro exam, nontraumatic COMPARISON: MRI dated 04/02/2015.TECHNIQUE: Noncontrast CT scan of the head with coronal and sagittalreformats was performed.FINDINGS:The ventricles and cerebral sulci are normal in caliber and configuration.No hydrocephalus, midline shift or pathological extra-axial fluidcollection is present. Low-lying cerebellar tonsils with mild crowding ofthe foramen magnum noted without deepika tonsillar ectopia. Thebasalcisterns are unremarkable.There is no acute intracranial hemorrhage or significant mass effect. Noparenchymal attenuation abnormality. The carvajal-white matter differentiationis preserved. The mastoid air cells and paranasal air sinuses are clear. Left parietalsoft tissue swelling noted. The calvarium and central skull base areunremarkable.IMPRESSIONMild left parietal scalp swelling.No acute intracranial abnormality.Preliminary Report Dictated by Resident: Mounika Covarrubias MD., have reviewed this study and agree with theabove report.[facility] [id number] 03:13:41Mild left parietal scalp swelling. No acute intracranial abnormality. Preliminary Report Dictated by Resident: Mounika Fitzgerald MD., have reviewed this study and agree with theabove report.CT HEAD WO CONTRAST HISTORY: Seizure, new, abn neuro exam, nontraumatic COMPARISON: MRI dated 04/02/2015. TECHNIQUE: Noncontrast CT scan of the head with coronal and sagittalreformats was performed. FINDINGS: The ventricles and cerebral sulci are normal in caliberand configuration.No hydrocephalus, midline shift or pathological extra-axial fluidcollection is present. Low-lying cerebellar tonsils with mild crowding ofthe foramen magnum noted without deepika tonsillar ectopia. The basalcisterns are unremarkable. There is no acute intracranial hemorrhage or significant mass effect. Noparenchymal attenuation abnormality. The carvajal-white matter differentiationis preserved. The mastoid air cells and paranasal air sinuses are clear. Left parietalsoft tissue swelling noted. The calvarium and central skull base areunremarkable. [facility], [facility] User - 10/26/2019 10:14 PM CDTCT HEAD WO CONTRASTHISTORY: Seizure, new, abn neuro exam, nontraumatic COMPARISON: MRI dated 04/02/2015.TECHNIQUE: Noncontrast CT scan of the head with coronal and sagittalreformats was performed.FINDINGS:The ventricles and cerebral sulci are normal in caliber and configuration.No hydrocephalus, midline shift or pathological extra-axial fluidcollection is present. Low-lying cerebellar tonsils with mild crowding ofthe foramen magnum noted without deepika tonsillar ectopia. Thebasalcisterns are unremarkable.There is no acute intracranial hemorrhage or significant mass effect. Noparenchymal attenuation abnormality. The carvajal-white matter differentiationis preserved. The mastoid air cells and paranasal air sinuses are clear. Left parietalsoft tissue swelling noted. The calvarium and central skull base areunremarkable.IMPRESSIONMild left parietal scalp swelling.No acute int racranial abnormality.Preliminary Report Dictated by Resident: Mounika Covarrubias MD., have reviewed this study and agree with theabove report.[facility] 2019-10-27 03:13:41Mild left parietal scalp swelling. No acute intracranial abnormality. Preliminary Report Dictated by Resident: Mounika Fitzgerald MD., have reviewed this study and agree with theabove report.CT HEAD WO CONTRAST HISTORY: Seizure, new, abn neuro exam, nontraumatic COMPARISON: MRI dated 04/02/2015. TECHNIQUE: Noncontrast CT scan of the head with coronal and sagittalreformats was performed. FINDINGS: The ventricles and cerebral sulci are normal in caliberand configuration.No hydrocephalus, midline shift or pathological extra-axial fluidcollection is pre sent. Low-lying cerebellar tonsils with mild crowding ofthe foramen magnum noted without deepika tonsillar ectopia. The basalcisterns are unremarkable. There is no acute intracranial hemorrhage or significant mass effect. Noparenchymal attenuation abnormality. The carvajal-white matter differentiationis preserved. The mastoid air cells and paranasal air sinuses are clear. Left parietalsoft tissue swelling noted. The calvarium and central skull base areunremarkable. [facility], [facility] In[facility] User - 10/26/2019 10:14 PM CDTCT HEAD WO CONTRASTHISTORY: Seizure, new, abn neuro exam, nontraumatic COMPARISON: MRI dated 04/02/2015.TECHNIQUE: Noncontrast CT scan of the head with coronal and sagittalreformats was performed.FINDINGS:The ventricles and cerebral sulci are normal in caliber and configuration.No hydrocephalus, midline shift or pathological extra-axial fluidcollection is present. Low-lying cerebellar tonsils with mild crowding ofthe foramen magnum noted without deepika tonsillar ectopia. Thebasalcisterns are unremarkable.There is no acute intracranial hemorrhage or significant mass effect. Noparenchymal attenuation abnormality. The carvajal-white matter differentiationis preserved. The mastoid air cells and paranasal air sinuses are clear. Left parietalsoft tissue swelling noted. The calvarium and central skull base areunremarkable.IMPRESSIONMild left parietal scalp swelling.No acute intracranial abnormality.Preliminary Report Dictated by Resident: Mounika Covarrubias MD., have reviewed this study and agree with theabove report.[facility] [id number] 03:13:41Mild left parietal scalp swelling. No acute intracranial abnormality. Preliminary Report Dictated by Resident: Mounika Fitzgerald MD., have reviewed this study and agree with theabove report.CT HEAD WO CONTRAST HISTORY: Seizure, new, abn neuro exam, nontraumatic COMPARISON: MRI dated 04/02/2015. TECHNIQUE: Noncontrast CT scan of the head with coronal and sagittalreformats was performed. FINDINGS: The ventricles and cerebral sulci are normal in caliberand configuration.No hydrocephalus, midline shift or pathological extra-axial fluidcollection is present. Low-lying cerebellar tonsils with mild crowding ofthe foramen magnum noted without deepika tonsillar ectopia. The basalcisterns are unremarkable. There is no acute intracranial hemorrhage or significant mass effect. Noparenchymal attenuation abnormality. The carvajal-white matter differentiationis preserved. The mastoid air cells and paranasal air sinuses are clear. Left parietalsoft tissue swelling noted. The calvarium and central skull base areunremarkable. [facility], [facility] In[facility] User - 10/26/2019 10:14 PM CDTCT HEAD WO CONTRASTHISTORY: Seizure, new, abn neuro exam, nontraumatic COMPARISON: MRI dated 04/02/2015.TECHNIQUE: Noncontrast CT scan of the head with coronal and sagittalreformats was performed.FINDINGS:The ventricles and cerebral sulci are normal in caliber and configuration.No hydrocephalus, midline shift or pathological extra-axial fluidcollection is present. Low-lying cerebellar tonsils with mild crowding ofthe foramen magnum noted without deepika tonsillar ectopia. Thebasalcisterns are unremarkable.There is no acute intracranial hemorrhage or significant mass effect. Noparenchymal attenuation abnormality. The carvajal-white matter differentiationis preserved. The mastoid air cells and paranasal air sinuses are clear. Left parietalsoft tissue swelling noted. The calvarium and central skull base areunremarkable.IMPRESSIONMild left parietal scalp swelling.No acute int racranial abnormality.Preliminary Report Dictated by Resident: Mounika Covarrubias MD., have reviewed this study and agree with theabove report.[facility] 2019-10-27 03:13:41Mild left parietal scalp swelling. No acute intracranial abnormality. Preliminary Report Dictated by Resident: Mounika Fitzgerald MD., have reviewed this study and agree with theabove report.CT HEAD WO CONTRAST HISTORY: Seizure, new, abn neuro exam, nontraumatic COMPARISON: MRI dated 04/02/2015. TECHNIQUE: Noncontrast CT scan of the head with coronal and sagittalreformats was performed. FINDINGS: The ventricles and cerebral sulci are normal in caliberand configuration.No hydrocephalus, midline shift or pathological extra-axial fluidcollection is pre sent. Low-lying cerebellar tonsils with mild crowding ofthe foramen magnum noted without deepika tonsillar ectopia. The basalcisterns are unremarkable. There is no acute intracranial hemorrhage or significant mass effect. Noparenchymal attenuation abnormality. The carvajal-white matter differentiationis preserved. The mastoid air cells and paranasal air sinuses are clear. Left parietalsoft tissue swelling noted. The calvarium and central skull base areunremarkable. [facility], [facility] In[facility] User - 10/26/2019 10:14 PM CDTCT HEAD WO CONTRASTHISTORY: Seizure, new, abn neuro exam, nontraumatic COMPARISON: MRI dated 04/02/2015.TECHNIQUE: Noncontrast CT scan of the head with coronal and sagittalreformats was performed.FINDINGS:The ventricles and cerebral sulci are normal in caliber and configuration.No hydrocephalus, midline shift or pathological extra-axial fluidcollection is present. Low-lying cerebellar tonsils with mild crowding ofthe foramen magnum noted without deepika tonsillar ectopia. Thebasalcisterns are unremarkable.There is no acute intracranial hemorrhage or significant mass effect. Noparenchymal attenuation abnormality. The carvajal-white matter differentiationis preserved. The mastoid air cells and paranasal air sinuses are clear. Left parietalsoft tissue swelling noted. The calvarium and central skull base areunremarkable.IMPRESSIONMild left parietal scalp swelling.No acute intracranial abnormality.Preliminary Report Dictated by Resident: Mounika Covarrubias MD., have reviewed this study and agree with theabove report.[facility] [id number] 03:13:41Mild left parietal scalp swelling. No acute intracranial abnormality. Preliminary Report Dictated by Resident: Mounika Fitzgerald MD., have reviewed this study and agree with theabove report.CT HEAD WO CONTRAST HISTORY: Seizure, new, abn neuro exam, nontraumatic COMPARISON: MRI dated 04/02/2015. TECHNIQUE: Noncontrast CT scan of the head with coronal and sagittalreformats was performed. FINDINGS: The ventricles and cerebral sulci are normal in caliberand configuration.No hydrocephalus, midline shift or pathological extra-axial fluidcollection is present. Low-lying cerebellar tonsils with mild crowding ofthe foramen magnum noted without deepika tonsillar ectopia. The basalcisterns are unremarkable. There is no acute intracranial hemorrhage or significant mass effect. Noparenchymal attenuation abnormality. The carvajal-white matter differentiationis preserved. The mastoid air cells and paranasal air sinuses are clear. Left parietalsoft tissue swelling noted. The calvarium and central skull base areunremarkable. [facility], [facility] In[facility] User - 10/26/2019 10:14 PM CDTCT HEAD WO CONTRASTHISTORY: Seizure, new, abn neuro exam, nontraumatic COMPARISON: MRI dated 04/02/2015.TECHNIQUE: Noncontrast CT scan of the head with coronal and sagittalreformats was performed.FINDINGS:The ventricles and cerebral sulci are normal in caliber and configuration.No hydrocephalus, midline shift or pathological extra-axial fluidcollection is present. Low-lying cerebellar tonsils with mild crowding ofthe foramen magnum noted without deepika tonsillar ectopia. Thebasalcisterns are unremarkable.There is no acute intracranial hemorrhage or significant mass effect. Noparenchymal attenuation abnormality. The carvajal-white matter differentiationis preserved. The mastoid air cells and paranasal air sinuses are clear. Left parietalsoft tissue swelling noted. The calvarium and central skull base areunremarkable.IMPRESSIONMild left parietal scalp swelling.No acute int racranial abnormality.Preliminary Report Dictated by Resident: Mounika Covarrubias MD., have reviewed this study and agree with theabove report.[facility] 2019-10-27 03:13:41Mild left parietal scalp swelling. No acute intracranial abnormality. Preliminary Report Dictated by Resident: Mounika Fitzgerald MD., have reviewed this study and agree with theabove report.CT HEAD WO CONTRAST HISTORY: Seizure, new, abn neuro exam, nontraumatic COMPARISON: MRI dated 04/02/2015. TECHNIQUE: Noncontrast CT scan of the head with coronal and sagittalreformats was performed. FINDINGS: The ventricles and cerebral sulci are normal in caliberand configuration.No hydrocephalus, midline shift or pathological extra-axial fluidcollection is pre sent. Low-lying cerebellar tonsils with mild crowding ofthe foramen magnum noted without deepika tonsillar ectopia. The basalcisterns are unremarkable. There is no acute intracranial hemorrhage or significant mass effect. Noparenchymal attenuation abnormality. The carvajal-white matter differentiationis preserved. The mastoid air cells and paranasal air sinuses are clear. Left parietalsoft tissue swelling noted. The calvarium and central skull base areunremarkable. [facility], [facility] In[facility] User - 10/26/2019 10:14 PM CDTCT HEAD WO CONTRASTHISTORY: Seizure, new, abn neuro exam, nontraumatic COMPARISON: MRI dated 04/02/2015.TECHNIQUE: Noncontrast CT scan of the head with coronal and sagittalreformats was performed.FINDINGS:The ventricles and cerebral sulci are normal in caliber and configuration.No hydrocephalus, midline shift or pathological extra-axial fluidcollection is present. Low-lying cerebellar tonsils with mild crowding ofthe foramen magnum noted without deepika tonsillar ectopia. Thebasalcisterns are unremarkable.There is no acute intracranial hemorrhage or significant mass effect. Noparenchymal attenuation abnormality. The carvajal-white matter differentiationis preserved. The mastoid air cells and paranasal air sinuses are clear. Left parietalsoft tissue swelling noted. The calvarium and central skull base areunremarkable.IMPRESSIONMild left parietal scalp swelling.No acute intracranial abnormality.Preliminary Report Dictated by Resident: Mounika Covarrubias MD., have reviewed this study and agree with theabove report.[facility] [id number] 03:13:41Mild left parietal scalp swelling. No acute intracranial abnormality. Preliminary Report Dictated by Resident: Mounika Fitzgerald MD., have reviewed this study and agree with theabove report.CT HEAD WO CONTRAST HISTORY: Seizure, new, abn neuro exam, nontraumatic COMPARISON: MRI dated 04/02/2015. TECHNIQUE: Noncontrast CT scan of the head with coronal and sagittalreformats was performed. FINDINGS: The ventricles and cerebral sulci are normal in caliberand configuration.No hydrocephalus, midline shift or pathological extra-axial fluidcollection is present. Low-lying cerebellar tonsils with mild crowding ofthe foramen magnum noted without deepika tonsillar ectopia. The basalcisterns are unremarkable. There is no acute intracranial hemorrhage or significant mass effect. Noparenchymal attenuation abnormality. The carvajal-white matter differentiationis preserved. The mastoid air cells and paranasal air sinuses are clear. Left parietalsoft tissue swelling noted. The calvarium and central skull base areunremarkable. [facility], [facility] Results Inft User - 10/26/2019 10:14 PM CDTCT HEAD WO CONTRASTHISTORY: Seizure, new, abn neuro exam, nontraumatic COMPARISON: MRI dated 04/02/2015.TECHNIQUE: Noncontrast CT scan of the head with coronal and sagittalreformats was performed.FINDINGS:The ventricles and cerebral sulci are normal in caliber and configuration.No hydrocephalus, midline shift or pathological extra-axial fluidcollection is present. Low-lying cerebellar tonsils with mild crowding ofthe foramen magnum noted without deepika tonsillar ectopia. Thebasalcisterns are unremarkable.There is no acute intracranial hemorrhage or significant mass effect. Noparenchymal attenuation abnormality. The carvajal-white matter differentiationis preserved. The mastoid air cells and paranasal air sinuses are clear. Left parietalsoft tissue swelling noted. The calvarium and central skull base areunremarkable.IMPRESSIONMild left parietal scalp swelling.No acute int racranial abnormality.Preliminary Report Dictated by Resident: Mounika Covarrubias MD., have reviewed this study and agree with theabove report.[facility] 2019-[facility]27 03:13:41Mild left parietal scalp swelling. No acute intracranial abnormality. Preliminary Report Dictated by Resident: Mounika Fitzgerald MD., have reviewed this study and agree with theabove report.CT HEAD WO CONTRAST HISTORY: Seizure, new, abn neuro exam, nontraumatic COMPARISON: MRI dated 04/02/2015. TECHNIQUE: Noncontrast CT scan of the head with coronal and sagittalreformats was performed. FINDINGS: The ventricles and cerebral sulci are normal in caliberand configuration.No hydrocephalus, midline shift or pathological extra-axial fluidcollection is pre sent. Low-lying cerebellar tonsils with mild crowding ofthe foramen magnum noted without deepika tonsillar ectopia. The basalcisterns are unremarkable. There is no acute intracranial hemorrhage or significant mass effect. Noparenchymal attenuation abnormality. The carvajal-white matter differentiationis preserved. The mastoid air cells and paranasal air sinuses are clear. Left parietalsoft tissue swelling noted. The calvarium and central skull base areunremarkable. [facility], [facility] Results Inft User - 10/26/2019 10:14 PM CDTCT HEAD WO CONTRASTHISTORY: Seizure, new, abn neuro exam, nontraumatic COMPARISON: MRI dated 04/02/2015.TECHNIQUE: Noncontrast CT scan of the head with coronal and sagittalreformats was performed.FINDINGS:The ventricles and cerebral sulci are normal in caliber and configuration.No hydrocephalus, midline shift or pathological extra-axial fluidcollection is present. Low-lying cerebellar tonsils with mild crowding ofthe foramen magnum noted without deepika tonsillar ectopia. Thebasalcisterns are unremarkable.There is no acute intracranial hemorrhage or significant mass effect. Noparenchymal attenuation abnormality. The carvajal-white matter differentiationis preserved. The mastoid air cells and paranasal air sinuses are clear. Left parietalsoft tissue swelling noted. The calvarium and central skull base areunremarkable.IMPRESSIONMild left parietal scalp swelling.No acute intracranial abnormality.Preliminary Report Dictated by Resident: Mounika Covarrubias MD., have reviewed this study and agree with theabove report.[facility] [id number] 03:13:41Mild left parietal scalp swelling. No acute intracranial abnormality. Preliminary Report Dictated by Resident: Mounika Fitzgerald MD., have reviewed this study and agree with theabove report.CT HEAD WO CONTRAST HISTORY: Seizure, new, abn neuro exam, nontraumatic COMPARISON: MRI dated 04/02/2015. TECHNIQUE: Noncontrast CT scan of the head with coronal and sagittalreformats was performed. FINDINGS: The ventricles and cerebral sulci are normal in caliberand configuration.No hydrocephalus, midline shift or pathological extra-axial fluidcollection is present. Low-lying cerebellar tonsils with mild crowding ofthe foramen magnum noted without deepika tonsillar ectopia. The basalcisterns are unremarkable. There is no acute intracranial hemorrhage or significant mass effect. Noparenchymal attenuation abnormality. The carvajal-white matter differentiationis preserved. The mastoid air cells and paranasal air sinuses are clear. Left parietalsoft tissue swelling noted. The calvarium and central skull base areunremarkable. [facility], [facility] Results Inft User - 10/26/2019 10:14 PM CDTCT HEAD WO CONTRASTHISTORY: Seizure, new, abn neuro exam, nontraumatic COMPARISON: MRI dated 04/02/2015.TECHNIQUE: Noncontrast CT scan of the head with coronal and sagittalreformats was performed.FINDINGS:The ventricles and cerebral sulci are normal in caliber and configuration.No hydrocephalus, midline shift or pathological extra-axial fluidcollection is present. Low-lying cerebellar tonsils with mild crowding ofthe foramen magnum noted without deepika tonsillar ectopia. Thebasalcisterns are unremarkable.There is no acute intracranial hemorrhage or significant mass effect. Noparenchymal attenuation abnormality. The carvajal-white matter differentiationis preserved. The mastoid air cells and paranasal air sinuses are clear. Left parietalsoft tissue swelling noted. The calvarium and central skull base areunremarkable.IMPRESSIONMild left parietal scalp swelling.No acute int racranial abnormality.Preliminary Report Dictated by Resident: Eros Shah, Mounika Black MD., have reviewed this study and agree with theabove report.[facility] WITH [id number] 03:03:00* Test Item Value Reference Range Interpretation Comme nts WBC (test code = 6690-2) See_Comment H [Automated message] The system which generated this result transmitted reference range: 4.20 - 10.70 10*3/?L. The reference range was not used to interpret this result as normal/abnormal. RBC (test code = 789-8) See_Comment [Automated message] The system which generated this result transmitted reference range: 4.26 - 5.52 10*6/?L. The reference range was not used to interpret this result as normal/abnormal. HGB (test code = 718-7) 15.6 g/dL 12.2-16.4 HCT (test code = 4544-3) 47.7 % 38.4-49.3 MCV (test code = 787-2) 89.0 fL 81.7-95.6 MCH (test code = 785-6) 29.1 pg 26.1-32.7 MCHC (test code = 786-4) 32.7 g/dL 31.2-35 RDW-SD (test code = 35286-5) 42.6 fL 38.5-51.6 RDW-CV (test code = 788-0) 13.2 % 12.1-15.4 PLT (test code = 777-3) See_Comment H [Automated message] The system which generated this result transmitted reference range: 150 - 328 10*3/?L. The reference range was not used to interpret this result as normal/abnormal. MPV (test code = 60163-5) 11.6 fL 9.8-13 NRBC/100 WBC (test code = 3461440508) See_Comment [Automated message] The system which generated this result transmitted reference range: 0.0 - 10.0 /100 WBCs. The reference range was not used to interpret this result as normal/abnormal. NRBC x10^3 (test code = 6519354557) <0.01 See_Comment [Automated message] The system which generated this result transmitted reference range: 10*3/?L. The reference range was not used to interpret this result as normal/abnormal. GRAN MAT (NEUT) % (test code = 770-8) 80.4 % IMM GRAN % (test code = 5411533156) 0.80 % LYMPH % (test code = 736-9) 11.2 % MONO % (test code = 5905-5) 6.7 % EOS % (test code = 713-8) 0.6 % BASO % (test code = 706-2) 0.3 % GRAN MAT x10^3(ANC) (test code = 9957869787) 13.24 10*3/uL 1.99-6.95 H IMM GRAN x10^3 (test code = 4456372311) 0.13 10*3/uL 0-0.06 H LYMPH x10^3 (test code = 731-0) 1.85 10*3/uL 1.09-3.23 MONO x10^3 (test code = 742-7) 1.11 10*3/uL 0.36-1.02 H EOS x10^3 (test code = 711-2) 0.10 10*3/uL 0.06-0.53 BASO x10^3 (test code = 704-7) 0.05 10*3/uL 0.01-0.09 Lab Interpretation (test code = 54512-5) Abnormal [facility] WITH [id number] 03:03:00* Test Item Value Reference Range Interpretation Comme nts WBC (test code = 6690-2) See_Comment H [Automated message] The system which generated this result transmitted reference range: 4.20 - 10.70 10*3/?L. The reference range was not used to interpret this result as normal/abnormal. RBC (test code = 789-8) See_Comment [Automated message] The system which generated this result transmitted reference range: 4.26 - 5.52 10*6/?L. The reference range was not used to interpret this result as normal/abnormal. HGB (test code = 718-7) 15.6 g/dL 12.2-16.4 HCT (test code = 4544-3) 47.7 % 38.4-49.3 MCV (test code = 787-2) 89.0 fL 81.7-95.6 MCH (test code = 785-6) 29.1 pg 26.1-32.7 MCHC (test code = 786-4) 32.7 g/dL 31.2-35 RDW-SD (test code = 29109-7) 42.6 fL 38.5-51.6 RDW-CV (test code = 788-0) 13.2 % 12.1-15.4 PLT (test code = 777-3) See_Comment H [Automated message] The system which generated this result transmitted reference range: 150 - 328 10*3/?L. The reference range was not used to interpret this result as normal/abnormal. MPV (test code = 34429-9) 11.6 fL 9.8-13 NRBC/100 WBC (test code = 8783936598) See_Comment [Automated message] The system which generated this result transmitted reference range: 0.0 - 10.0 /100 WBCs. The reference range was not used to interpret this result as normal/abnormal. NRBC x10^3 (test code = 0115753399) <0.01 See_Comment [Automated message] The system which generated this result transmitted reference range: 10*3/?L. The reference range was not used to interpret this result as normal/abnormal. GRAN MAT (NEUT) % (test code = 770-8) 80.4 % IMM GRAN % (test code = 0396867922) 0.80 % LYMPH % (test code = 736-9) 11.2 % MONO % (test code = 5905-5) 6.7 % EOS % (test code = 713-8) 0.6 % BASO % (test code = 706-2) 0.3 % GRAN MAT x10^3(ANC) (test code = 2411617725) 13.24 10*3/uL 1.99-6.95 H IMM GRAN x10^3 (test code = 9658165153) 0.13 10*3/uL 0-0.06 H LYMPH x10^3 (test code = 731-0) 1.85 10*3/uL 1.09-3.23 MONO x10^3 (test code = 742-7) 1.11 10*3/uL 0.36-1.02 H EOS x10^3 (test code = 711-2) 0.10 10*3/uL 0.06-0.53 BASO x10^3 (test code = 704-7) 0.05 10*3/uL 0.01-0.09 Lab Interpretation (test code = 51245-4) Abnormal [facility] WITH [id number] 03:03:00* Test Item Value Reference Range Interpretation Comme nts WBC (test code = 6690-2) See_Comment H [Automated message] The system which generated this result transmitted reference range: 4.20 - 10.70 10*3/?L. The reference range was not used to interpret this result as normal/abnormal. RBC (test code = 789-8) See_Comment [Automated message] The system which generated this result transmitted reference range: 4.26 - 5.52 10*6/?L. The reference range was not used to interpret this result as normal/abnormal. HGB (test code = 718-7) 15.6 g/dL 12.2-16.4 HCT (test code = 4544-3) 47.7 % 38.4-49.3 MCV (test code = 787-2) 89.0 fL 81.7-95.6 MCH (test code = 785-6) 29.1 pg 26.1-32.7 MCHC (test code = 786-4) 32.7 g/dL 31.2-35 RDW-SD (test code = 45721-7) 42.6 fL 38.5-51.6 RDW-CV (test code = 788-0) 13.2 % 12.1-15.4 PLT (test code = 777-3) See_Comment H [Automated message] The system which generated this result transmitted reference range: 150 - 328 10*3/?L. The reference range was not used to interpret this result as normal/abnormal. MPV (test code = 10727-2) 11.6 fL 9.8-13 NRBC/100 WBC (test code = 0024385681) See_Comment [Automated message] The system which generated this result transmitted reference range: 0.0 - 10.0 /100 WBCs. The reference range was not used to interpret this result as normal/abnormal. NRBC x10^3 (test code = 1338191427) <0.01 See_Comment [Automated message] The system which generated this result transmitted reference range: 10*3/?L. The reference range was not used to interpret this result as normal/abnormal. GRAN MAT (NEUT) % (test code = 770-8) 80.4 % IMM GRAN % (test code = 3943420096) 0.80 % LYMPH % (test code = 736-9) 11.2 % MONO % (test code = 5905-5) 6.7 % EOS % (test code = 713-8) 0.6 % BASO % (test code = 706-2) 0.3 % GRAN MAT x10^3(ANC) (test code = 1389951096) 13.24 10*3/uL 1.99-6.95 H IMM GRAN x10^3 (test code = 8804920206) 0.13 10*3/uL 0-0.06 H LYMPH x10^3 (test code = 731-0) 1.85 10*3/uL 1.09-3.23 MONO x10^3 (test code = 742-7) 1.11 10*3/uL 0.36-1.02 H EOS x10^3 (test code = 711-2) 0.10 10*3/uL 0.06-0.53 BASO x10^3 (test code = 704-7) 0.05 10*3/uL 0.01-0.09 Lab Interpretation (test code = 88046-3) Abnormal [facility] WITH [id number] 03:03:00* Test Item Value Reference Range Interpretation Comme nts WBC (test code = 6690-2) See_Comment H [Automated message] The system which generated this result transmitted reference range: 4.20 - 10.70 10*3/?L. The reference range was not used to interpret this result as normal/abnormal. RBC (test code = 789-8) See_Comment [Automated message] The system which generated this result transmitted reference range: 4.26 - 5.52 10*6/?L. The reference range was not used to interpret this result as normal/abnormal. HGB (test code = 718-7) 15.6 g/dL 12.2-16.4 HCT (test code = 4544-3) 47.7 % 38.4-49.3 MCV (test code = 787-2) 89.0 fL 81.7-95.6 MCH (test code = 785-6) 29.1 pg 26.1-32.7 MCHC (test code = 786-4) 32.7 g/dL 31.2-35 RDW-SD (test code = 87931-6) 42.6 fL 38.5-51.6 RDW-CV (test code = 788-0) 13.2 % 12.1-15.4 PLT (test code = 777-3) See_Comment H [Automated message] The system which generated this result transmitted reference range: 150 - 328 10*3/?L. The reference range was not used to interpret this result as normal/abnormal. MPV (test code = 70349-0) 11.6 fL 9.8-13 NRBC/100 WBC (test code = 8446896897) See_Comment [Automated message] The system which generated this result transmitted reference range: 0.0 - 10.0 /100 WBCs. The reference range was not used to interpret this result as normal/abnormal. NRBC x10^3 (test code = 2212199850) <0.01 See_Comment [Automated message] The system which generated this result transmitted reference range: 10*3/?L. The reference range was not used to interpret this result as normal/abnormal. GRAN MAT (NEUT) % (test code = 770-8) 80.4 % IMM GRAN % (test code = 5520280164) 0.80 % LYMPH % (test code = 736-9) 11.2 % MONO % (test code = 5905-5) 6.7 % EOS % (test code = 713-8) 0.6 % BASO % (test code = 706-2) 0.3 % GRAN MAT x10^3(ANC) (test code = 9511460471) 13.24 10*3/uL 1.99-6.95 H IMM GRAN x10^3 (test code = 3546211666) 0.13 10*3/uL 0-0.06 H LYMPH x10^3 (test code = 731-0) 1.85 10*3/uL 1.09-3.23 MONO x10^3 (test code = 742-7) 1.11 10*3/uL 0.36-1.02 H EOS x10^3 (test code = 711-2) 0.10 10*3/uL 0.06-0.53 BASO x10^3 (test code = 704-7) 0.05 10*3/uL 0.01-0.09 Lab Interpretation (test code = 51343-6) Abnormal [facility] WITH [id number] 03:03:00* Test Item Value Reference Range Interpretation Comme nts WBC (test code = 6690-2) See_Comment H [Automated message] The system which generated this result transmitted reference range: 4.20 - 10.70 10*3/?L. The reference range was not used to interpret this result as normal/abnormal. RBC (test code = 789-8) See_Comment [Automated message] The system which generated this result transmitted reference range: 4.26 - 5.52 10*6/?L. The reference range was not used to interpret this result as normal/abnormal. HGB (test code = 718-7) 15.6 g/dL 12.2-16.4 HCT (test code = 4544-3) 47.7 % 38.4-49.3 MCV (test code = 787-2) 89.0 fL 81.7-95.6 MCH (test code = 785-6) 29.1 pg 26.1-32.7 MCHC (test code = 786-4) 32.7 g/dL 31.2-35 RDW-SD (test code = 88270-5) 42.6 fL 38.5-51.6 RDW-CV (test code = 788-0) 13.2 % 12.1-15.4 PLT (test code = 777-3) See_Comment H [Automated message] The system which generated this result transmitted reference range: 150 - 328 10*3/?L. The reference range was not used to interpret this result as normal/abnormal. MPV (test code = 04225-7) 11.6 fL 9.8-13 NRBC/100 WBC (test code = 0431158616) See_Comment [Automated message] The system which generated this result transmitted reference range: 0.0 - 10.0 /100 WBCs. The reference range was not used to interpret this result as normal/abnormal. NRBC x10^3 (test code = 7026598481) <0.01 See_Comment [Automated message] The system which generated this result transmitted reference range: 10*3/?L. The reference range was not used to interpret this result as normal/abnormal. GRAN MAT (NEUT) % (test code = 770-8) 80.4 % IMM GRAN % (test code = 9087410346) 0.80 % LYMPH % (test code = 736-9) 11.2 % MONO % (test code = 5905-5) 6.7 % EOS % (test code = 713-8) 0.6 % BASO % (test code = 706-2) 0.3 % GRAN MAT x10^3(ANC) (test code = 3911603493) 13.24 10*3/uL 1.99-6.95 H IMM GRAN x10^3 (test code = 5025787534) 0.13 10*3/uL 0-0.06 H LYMPH x10^3 (test code = 731-0) 1.85 10*3/uL 1.09-3.23 MONO x10^3 (test code = 742-7) 1.11 10*3/uL 0.36-1.02 H EOS x10^3 (test code = 711-2) 0.10 10*3/uL 0.06-0.53 BASO x10^3 (test code = 704-7) 0.05 10*3/uL 0.01-0.09 Lab Interpretation (test code = 15610-1) Abnormal [facility] WITH [id number] 03:03:00* Test Item Value Reference Range Interpretation Comme nts WBC (test code = 6690-2) See_Comment H [Automated message] The system which generated this result transmitted reference range: 4.20 - 10.70 10*3/?L. The reference range was not used to interpret this result as normal/abnormal. RBC (test code = 789-8) See_Comment [Automated message] The system which generated this result transmitted reference range: 4.26 - 5.52 10*6/?L. The reference range was not used to interpret this result as normal/abnormal. HGB (test code = 718-7) 15.6 g/dL 12.2-16.4 HCT (test code = 4544-3) 47.7 % 38.4-49.3 MCV (test code = 787-2) 89.0 fL 81.7-95.6 MCH (test code = 785-6) 29.1 pg 26.1-32.7 MCHC (test code = 786-4) 32.7 g/dL 31.2-35 RDW-SD (test code = 44520-6) 42.6 fL 38.5-51.6 RDW-CV (test code = 788-0) 13.2 % 12.1-15.4 PLT (test code = 777-3) See_Comment H [Automated message] The system which generated this result transmitted reference range: 150 - 328 10*3/?L. The reference range was not used to interpret this result as normal/abnormal. MPV (test code = 25750-1) 11.6 fL 9.8-13 NRBC/100 WBC (test code = 0548984477) See_Comment [Automated message] The system which generated this result transmitted reference range: 0.0 - 10.0 /100 WBCs. The reference range was not used to interpret this result as normal/abnormal. NRBC x10^3 (test code = 1655705133) <0.01 See_Comment [Automated message] The system which generated this result transmitted reference range: 10*3/?L. The reference range was not used to interpret this result as normal/abnormal. GRAN MAT (NEUT) % (test code = 770-8) 80.4 % IMM GRAN % (test code = 4314678436) 0.80 % LYMPH % (test code = 736-9) 11.2 % MONO % (test code = 5905-5) 6.7 % EOS % (test code = 713-8) 0.6 % BASO % (test code = 706-2) 0.3 % GRAN MAT x10^3(ANC) (test code = 2306389946) 13.24 10*3/uL 1.99-6.95 H IMM GRAN x10^3 (test code = 0130826495) 0.13 10*3/uL 0-0.06 H LYMPH x10^3 (test code = 731-0) 1.85 10*3/uL 1.09-3.23 MONO x10^3 (test code = 742-7) 1.11 10*3/uL 0.36-1.02 H EOS x10^3 (test code = 711-2) 0.10 10*3/uL 0.06-0.53 BASO x10^3 (test code = 704-7) 0.05 10*3/uL 0.01-0.09 Lab Interpretation (test code = 21992-5) Abnormal [facility] WITH [id number] 03:03:00* Test Item Value Reference Range Interpretation Comme nts WBC (test code = 6690-2) See_Comment H [Automated message] The system which generated this result transmitted reference range: 4.20 - 10.70 10*3/?L. The reference range was not used to interpret this result as normal/abnormal. RBC (test code = 789-8) See_Comment [Automated message] The system which generated this result transmitted reference range: 4.26 - 5.52 10*6/?L. The reference range was not used to interpret this result as normal/abnormal. HGB (test code = 718-7) 15.6 g/dL 12.2-16.4 HCT (test code = 4544-3) 47.7 % 38.4-49.3 MCV (test code = 787-2) 89.0 fL 81.7-95.6 MCH (test code = 785-6) 29.1 pg 26.1-32.7 MCHC (test code = 786-4) 32.7 g/dL 31.2-35 RDW-SD (test code = 40140-0) 42.6 fL 38.5-51.6 RDW-CV (test code = 788-0) 13.2 % 12.1-15.4 PLT (test code = 777-3) See_Comment H [Automated message] The system which generated this result transmitted reference range: 150 - 328 10*3/?L. The reference range was not used to interpret this result as normal/abnormal. MPV (test code = 01979-7) 11.6 fL 9.8-13 NRBC/100 WBC (test code = 9223530505) See_Comment [Automated message] The system which generated this result transmitted reference range: 0.0 - 10.0 /100 WBCs. The reference range was not used to interpret this result as normal/abnormal. NRBC x10^3 (test code = 2267111289) <0.01 See_Comment [Automated message] The system which generated this result transmitted reference range: 10*3/?L. The reference range was not used to interpret this result as normal/abnormal. GRAN MAT (NEUT) % (test code = 770-8) 80.4 % IMM GRAN % (test code = 0732873440) 0.80 % LYMPH % (test code = 736-9) 11.2 % MONO % (test code = 5905-5) 6.7 % EOS % (test code = 713-8) 0.6 % BASO % (test code = 706-2) 0.3 % GRAN MAT x10^3(ANC) (test code = 6934012459) 13.24 10*3/uL 1.99-6.95 H IMM GRAN x10^3 (test code = 8343464423) 0.13 10*3/uL 0-0.06 H LYMPH x10^3 (test code = 731-0) 1.85 10*3/uL 1.09-3.23 MONO x10^3 (test code = 742-7) 1.11 10*3/uL 0.36-1.02 H EOS x10^3 (test code = 711-2) 0.10 10*3/uL 0.06-0.53 BASO x10^3 (test code = 704-7) 0.05 10*3/uL 0.01-0.09 Lab Interpretation (test code = 49453-8) Abnormal [facility] WITH [id number] 03:03:00* Test Item Value Reference Range Interpretation Comme nts WBC (test code = 6690-2) See_Comment H [Automated message] The system which generated this result transmitted reference range: 4.20 - 10.70 10*3/?L. The reference range was not used to interpret this result as normal/abnormal. RBC (test code = 789-8) See_Comment [Automated message] The system which generated this result transmitted reference range: 4.26 - 5.52 10*6/?L. The reference range was not used to interpret this result as normal/abnormal. HGB (test code = 718-7) 15.6 g/dL 12.2-16.4 HCT (test code = 4544-3) 47.7 % 38.4-49.3 MCV (test code = 787-2) 89.0 fL 81.7-95.6 MCH (test code = 785-6) 29.1 pg 26.1-32.7 MCHC (test code = 786-4) 32.7 g/dL 31.2-35 RDW-SD (test code = 93246-5) 42.6 fL 38.5-51.6 RDW-CV (test code = 788-0) 13.2 % 12.1-15.4 PLT (test code = 777-3) See_Comment H [Automated message] The system which generated this result transmitted reference range: 150 - 328 10*3/?L. The reference range was not used to interpret this result as normal/abnormal. MPV (test code = 67818-9) 11.6 fL 9.8-13 NRBC/100 WBC (test code = 8729678396) See_Comment [Automated message] The system which generated this result transmitted reference range: 0.0 - 10.0 /100 WBCs. The reference range was not used to interpret this result as normal/abnormal. NRBC x10^3 (test code = 9361795920) <0.01 See_Comment [Automated message] The system which generated this result transmitted reference range: 10*3/?L. The reference range was not used to interpret this result as normal/abnormal. GRAN MAT (NEUT) % (test code = 770-8) 80.4 % IMM GRAN % (test code = 7712824672) 0.80 % LYMPH % (test code = 736-9) 11.2 % MONO % (test code = 5905-5) 6.7 % EOS % (test code = 713-8) 0.6 % BASO % (test code = 706-2) 0.3 % GRAN MAT x10^3(ANC) (test code = 1983839453) 13.24 10*3/uL 1.99-6.95 H IMM GRAN x10^3 (test code = 8839525053) 0.13 10*3/uL 0-0.06 H LYMPH x10^3 (test code = 731-0) 1.85 10*3/uL 1.09-3.23 MONO x10^3 (test code = 742-7) 1.11 10*3/uL 0.36-1.02 H EOS x10^3 (test code = 711-2) 0.10 10*3/uL 0.06-0.53 BASO x10^3 (test code = 704-7) 0.05 10*3/uL 0.01-0.09 Lab Interpretation (test code = 19730-2) Abnormal [facility] WITH [id number] 03:03:00* Test Item Value Reference Range Interpretation Comme nts WBC (test code = 6690-2) See_Comment H [Automated message] The system which generated this result transmitted reference range: 4.20 - 10.70 10*3/?L. The reference range was not used to interpret this result as normal/abnormal. RBC (test code = 789-8) See_Comment [Automated message] The system which generated this result transmitted reference range: 4.26 - 5.52 10*6/?L. The reference range was not used to interpret this result as normal/abnormal. HGB (test code = 718-7) 15.6 g/dL 12.2-16.4 HCT (test code = 4544-3) 47.7 % 38.4-49.3 MCV (test code = 787-2) 89.0 fL 81.7-95.6 MCH (test code = 785-6) 29.1 pg 26.1-32.7 MCHC (test code = 786-4) 32.7 g/dL 31.2-35 RDW-SD (test code = 38201-7) 42.6 fL 38.5-51.6 RDW-CV (test code = 788-0) 13.2 % 12.1-15.4 PLT (test code = 777-3) See_Comment H [Automated message] The system which generated this result transmitted reference range: 150 - 328 10*3/?L. The reference range was not used to interpret this result as normal/abnormal. MPV (test code = 96923-0) 11.6 fL 9.8-13 NRBC/100 WBC (test code = 5312004385) See_Comment [Automated message] The system which generated this result transmitted reference range: 0.0 - 10.0 /100 WBCs. The reference range was not used to interpret this result as normal/abnormal. NRBC x10^3 (test code = 1797342738) <0.01 See_Comment [Automated message] The system which generated this result transmitted reference range: 10*3/?L. The reference range was not used to interpret this result as normal/abnormal. GRAN MAT (NEUT) % (test code = 770-8) 80.4 % IMM GRAN % (test code = 5461085394) 0.80 % LYMPH % (test code = 736-9) 11.2 % MONO % (test code = 5905-5) 6.7 % EOS % (test code = 713-8) 0.6 % BASO % (test code = 706-2) 0.3 % GRAN MAT x10^3(ANC) (test code = 2124612544) 13.24 10*3/uL 1.99-6.95 H IMM GRAN x10^3 (test code = 5562142174) 0.13 10*3/uL 0-0.06 H LYMPH x10^3 (test code = 731-0) 1.85 10*3/uL 1.09-3.23 MONO x10^3 (test code = 742-7) 1.11 10*3/uL 0.36-1.02 H EOS x10^3 (test code = 711-2) 0.10 10*3/uL 0.06-0.53 BASO x10^3 (test code = 704-7) 0.05 10*3/uL 0.01-0.09 Lab Interpretation (test code = 13399-4) Abnormal [facility] WITH [id number] 03:03:00* Test Item Value Reference Range Interpretation Comme nts WBC (test code = 6690-2) See_Comment H [Automated message] The system which generated this result transmitted reference range: 4.20 - 10.70 10*3/?L. The reference range was not used to interpret this result as normal/abnormal. RBC (test code = 789-8) See_Comment [Automated message] The system which generated this result transmitted reference range: 4.26 - 5.52 10*6/?L. The reference range was not used to interpret this result as normal/abnormal. HGB (test code = 718-7) 15.6 g/dL 12.2-16.4 HCT (test code = 4544-3) 47.7 % 38.4-49.3 MCV (test code = 787-2) 89.0 fL 81.7-95.6 MCH (test code = 785-6) 29.1 pg 26.1-32.7 MCHC (test code = 786-4) 32.7 g/dL 31.2-35 RDW-SD (test code = 92247-9) 42.6 fL 38.5-51.6 RDW-CV (test code = 788-0) 13.2 % 12.1-15.4 PLT (test code = 777-3) See_Comment H [Automated message] The system which generated this result transmitted reference range: 150 - 328 10*3/?L. The reference range was not used to interpret this result as normal/abnormal. MPV (test code = 40412-4) 11.6 fL 9.8-13 NRBC/100 WBC (test code = 7896208684) See_Comment [Automated message] The system which generated this result transmitted reference range: 0.0 - 10.0 /100 WBCs. The reference range was not used to interpret this result as normal/abnormal. NRBC x10^3 (test code = 1697344505) <0.01 See_Comment [Automated message] The system which generated this result transmitted reference range: 10*3/?L. The reference range was not used to interpret this result as normal/abnormal. GRAN MAT (NEUT) % (test code = 770-8) 80.4 % IMM GRAN % (test code = 9924638038) 0.80 % LYMPH % (test code = 736-9) 11.2 % MONO % (test code = 5905-5) 6.7 % EOS % (test code = 713-8) 0.6 % BASO % (test code = 706-2) 0.3 % GRAN MAT x10^3(ANC) (test code = 8985675032) 13.24 10*3/uL 1.99-6.95 H IMM GRAN x10^3 (test code = 1878374100) 0.13 10*3/uL 0-0.06 H LYMPH x10^3 (test code = 731-0) 1.85 10*3/uL 1.09-3.23 MONO x10^3 (test code = 742-7) 1.11 10*3/uL 0.36-1.02 H EOS x10^3 (test code = 711-2) 0.10 10*3/uL 0.06-0.53 BASO x10^3 (test code = 704-7) 0.05 10*3/uL 0.01-0.09 Lab Interpretation (test code = 90417-5) Abnormal [facility] WITH [id number] 03:03:00* Test Item Value Reference Range Interpretation Comme nts WBC (test code = 6690-2) See_Comment H [Automated message] The system which generated this result transmitted reference range: 4.20 - 10.70 10*3/?L. The reference range was not used to interpret this result as normal/abnormal. RBC (test code = 789-8) See_Comment [Automated message] The system which generated this result transmitted reference range: 4.26 - 5.52 10*6/?L. The reference range was not used to interpret this result as normal/abnormal. HGB (test code = 718-7) 15.6 g/dL 12.2-16.4 HCT (test code = 4544-3) 47.7 % 38.4-49.3 MCV (test code = 787-2) 89.0 fL 81.7-95.6 MCH (test code = 785-6) 29.1 pg 26.1-32.7 MCHC (test code = 786-4) 32.7 g/dL 31.2-35 RDW-SD (test code = 57793-6) 42.6 fL 38.5-51.6 RDW-CV (test code = 788-0) 13.2 % 12.1-15.4 PLT (test code = 777-3) See_Comment H [Automated message] The system which generated this result transmitted reference range: 150 - 328 10*3/?L. The reference range was not used to interpret this result as normal/abnormal. MPV (test code = 11222-6) 11.6 fL 9.8-13 NRBC/100 WBC (test code = 8187376721) See_Comment [Automated message] The system which generated this result transmitted reference range: 0.0 - 10.0 /100 WBCs. The reference range was not used to interpret this result as normal/abnormal. NRBC x10^3 (test code = 7693276760) <0.01 See_Comment [Automated message] The system which generated this result transmitted reference range: 10*3/?L. The reference range was not used to interpret this result as normal/abnormal. GRAN MAT (NEUT) % (test code = 770-8) 80.4 % IMM GRAN % (test code = 0244899022) 0.80 % LYMPH % (test code = 736-9) 11.2 % MONO % (test code = 5905-5) 6.7 % EOS % (test code = 713-8) 0.6 % BASO % (test code = 706-2) 0.3 % GRAN MAT x10^3(ANC) (test code = 8317964469) 13.24 10*3/uL 1.99-6.95 H IMM GRAN x10^3 (test code = 0139199253) 0.13 10*3/uL 0-0.06 H LYMPH x10^3 (test code = 731-0) 1.85 10*3/uL 1.09-3.23 MONO x10^3 (test code = 742-7) 1.11 10*3/uL 0.36-1.02 H EOS x10^3 (test code = 711-2) 0.10 10*3/uL 0.06-0.53 BASO x10^3 (test code = 704-7) 0.05 10*3/uL 0.01-0.09 Lab Interpretation (test code = 33568-9) Abnormal [facility] WITH [id number] 03:03:00* Test Item Value Reference Range Interpretation Comme nts WBC (test code = 6690-2) See_Comment H [Automated message] The system which generated this result transmitted reference range: 4.20 - 10.70 10*3/?L. The reference range was not used to interpret this result as normal/abnormal. RBC (test code = 789-8) See_Comment [Automated message] The system which generated this result transmitted reference range: 4.26 - 5.52 10*6/?L. The reference range was not used to interpret this result as normal/abnormal. HGB (test code = 718-7) 15.6 g/dL 12.2-16.4 HCT (test code = 4544-3) 47.7 % 38.4-49.3 MCV (test code = 787-2) 89.0 fL 81.7-95.6 MCH (test code = 785-6) 29.1 pg 26.1-32.7 MCHC (test code = 786-4) 32.7 g/dL 31.2-35 RDW-SD (test code = 40539-9) 42.6 fL 38.5-51.6 RDW-CV (test code = 788-0) 13.2 % 12.1-15.4 PLT (test code = 777-3) See_Comment H [Automated message] The system which generated this result transmitted reference range: 150 - 328 10*3/?L. The reference range was not used to interpret this result as normal/abnormal. MPV (test code = 88337-1) 11.6 fL 9.8-13 NRBC/100 WBC (test code = 9595148956) See_Comment [Automated message] The system which generated this result transmitted reference range: 0.0 - 10.0 /100 WBCs. The reference range was not used to interpret this result as normal/abnormal. NRBC x10^3 (test code = 0281293288) <0.01 See_Comment [Automated message] The system which generated this result transmitted reference range: 10*3/?L. The reference range was not used to interpret this result as normal/abnormal. GRAN MAT (NEUT) % (test code = 770-8) 80.4 % IMM GRAN % (test code = 5607699715) 0.80 % LYMPH % (test code = 736-9) 11.2 % MONO % (test code = 5905-5) 6.7 % EOS % (test code = 713-8) 0.6 % BASO % (test code = 706-2) 0.3 % GRAN MAT x10^3(ANC) (test code = 6558217526) 13.24 10*3/uL 1.99-6.95 H IMM GRAN x10^3 (test code = 0615125980) 0.13 10*3/uL 0-0.06 H LYMPH x10^3 (test code = 731-0) 1.85 10*3/uL 1.09-3.23 MONO x10^3 (test code = 742-7) 1.11 10*3/uL 0.36-1.02 H EOS x10^3 (test code = 711-2) 0.10 10*3/uL 0.06-0.53 BASO x10^3 (test code = 704-7) 0.05 10*3/uL 0.01-0.09 Lab Interpretation (test code = 74322-6) Abnormal [facility] WITH [id number] 03:03:00* Test Item Value Reference Range Interpretation Comme nts WBC (test code = 6690-2) See_Comment H [Automated message] The system which generated this result transmitted reference range: 4.20 - 10.70 10*3/?L. The reference range was not used to interpret this result as normal/abnormal. RBC (test code = 789-8) See_Comment [Automated message] The system which generated this result transmitted reference range: 4.26 - 5.52 10*6/?L. The reference range was not used to interpret this result as normal/abnormal. HGB (test code = 718-7) 15.6 g/dL 12.2-16.4 HCT (test code = 4544-3) 47.7 % 38.4-49.3 MCV (test code = 787-2) 89.0 fL 81.7-95.6 MCH (test code = 785-6) 29.1 pg 26.1-32.7 MCHC (test code = 786-4) 32.7 g/dL 31.2-35 RDW-SD (test code = 29154-5) 42.6 fL 38.5-51.6 RDW-CV (test code = 788-0) 13.2 % 12.1-15.4 PLT (test code = 777-3) See_Comment H [Automated message] The system which generated this result transmitted reference range: 150 - 328 10*3/?L. The reference range was not used to interpret this result as normal/abnormal. MPV (test code = 42488-5) 11.6 fL 9.8-13 NRBC/100 WBC (test code = 8673532477) See_Comment [Automated message] The system which generated this result transmitted reference range: 0.0 - 10.0 /100 WBCs. The reference range was not used to interpret this result as normal/abnormal. NRBC x10^3 (test code = 5747165469) <0.01 See_Comment [Automated message] The system which generated this result transmitted reference range: 10*3/?L. The reference range was not used to interpret this result as normal/abnormal. GRAN MAT (NEUT) % (test code = 770-8) 80.4 % IMM GRAN % (test code = 2426990642) 0.80 % LYMPH % (test code = 736-9) 11.2 % MONO % (test code = 5905-5) 6.7 % EOS % (test code = 713-8) 0.6 % BASO % (test code = 706-2) 0.3 % GRAN MAT x10^3(ANC) (test code = 0427040719) 13.24 10*3/uL 1.99-6.95 H IMM GRAN x10^3 (test code = 5237759940) 0.13 10*3/uL 0-0.06 H LYMPH x10^3 (test code = 731-0) 1.85 10*3/uL 1.09-3.23 MONO x10^3 (test code = 742-7) 1.11 10*3/uL 0.36-1.02 H EOS x10^3 (test code = 711-2) 0.10 10*3/uL 0.06-0.53 BASO x10^3 (test code = 704-7) 0.05 10*3/uL 0.01-0.09 Lab Interpretation (test code = 42962-2) Abnormal [facility] WITH [id number] 03:03:00* Test Item Value Reference Range Interpretation Comme nts WBC (test code = 6690-2) See_Comment H [Automated message] The system which generated this result transmitted reference range: 4.20 - 10.70 10*3/?L. The reference range was not used to interpret this result as normal/abnormal. RBC (test code = 789-8) See_Comment [Automated message] The system which generated this result transmitted reference range: 4.26 - 5.52 10*6/?L. The reference range was not used to interpret this result as normal/abnormal. HGB (test code = 718-7) 15.6 g/dL 12.2-16.4 HCT (test code = 4544-3) 47.7 % 38.4-49.3 MCV (test code = 787-2) 89.0 fL 81.7-95.6 MCH (test code = 785-6) 29.1 pg 26.1-32.7 MCHC (test code = 786-4) 32.7 g/dL 31.2-35 RDW-SD (test code = 90309-3) 42.6 fL 38.5-51.6 RDW-CV (test code = 788-0) 13.2 % 12.1-15.4 PLT (test code = 777-3) See_Comment H [Automated message] The system which generated this result transmitted reference range: 150 - 328 10*3/?L. The reference range was not used to interpret this result as normal/abnormal. MPV (test code = 28219-2) 11.6 fL 9.8-13 NRBC/100 WBC (test code = 0711688229) See_Comment [Automated message] The system which generated this result transmitted reference range: 0.0 - 10.0 /100 WBCs. The reference range was not used to interpret this result as normal/abnormal. NRBC x10^3 (test code = 5529793945) <0.01 See_Comment [Automated message] The system which generated this result transmitted reference range: 10*3/?L. The reference range was not used to interpret this result as normal/abnormal. GRAN MAT (NEUT) % (test code = 770-8) 80.4 % IMM GRAN % (test code = 6636419411) 0.80 % LYMPH % (test code = 736-9) 11.2 % MONO % (test code = 5905-5) 6.7 % EOS % (test code = 713-8) 0.6 % BASO % (test code = 706-2) 0.3 % GRAN MAT x10^3(ANC) (test code = 2899555185) 13.24 10*3/uL 1.99-6.95 H IMM GRAN x10^3 (test code = 9060939708) 0.13 10*3/uL 0-0.06 H LYMPH x10^3 (test code = 731-0) 1.85 10*3/uL 1.09-3.23 MONO x10^3 (test code = 742-7) 1.11 10*3/uL 0.36-1.02 H EOS x10^3 (test code = 711-2) 0.10 10*3/uL 0.06-0.53 BASO x10^3 (test code = 704-7) 0.05 10*3/uL 0.01-0.09 Lab Interpretation (test code = 89688-8) Abnormal [facility] WITH [id number] 03:03:00* Test Item Value Reference Range Interpretation Comme nts WBC (test code = 6690-2) See_Comment H [Automated message] The system which generated this result transmitted reference range: 4.20 - 10.70 10*3/?L. The reference range was not used to interpret this result as normal/abnormal. RBC (test code = 789-8) See_Comment [Automated message] The system which generated this result transmitted reference range: 4.26 - 5.52 10*6/?L. The reference range was not used to interpret this result as normal/abnormal. HGB (test code = 718-7) 15.6 g/dL 12.2-16.4 HCT (test code = 4544-3) 47.7 % 38.4-49.3 MCV (test code = 787-2) 89.0 fL 81.7-95.6 MCH (test code = 785-6) 29.1 pg 26.1-32.7 MCHC (test code = 786-4) 32.7 g/dL 31.2-35 RDW-SD (test code = 05542-2) 42.6 fL 38.5-51.6 RDW-CV (test code = 788-0) 13.2 % 12.1-15.4 PLT (test code = 777-3) See_Comment H [Automated message] The system which generated this result transmitted reference range: 150 - 328 10*3/?L. The reference range was not used to interpret this result as normal/abnormal. MPV (test code = 92953-9) 11.6 fL 9.8-13 NRBC/100 WBC (test code = 9050739768) See_Comment [Automated message] The system which generated this result transmitted reference range: 0.0 - 10.0 /100 WBCs. The reference range was not used to interpret this result as normal/abnormal. NRBC x10^3 (test code = 5427012332) <0.01 See_Comment [Automated message] The system which generated this result transmitted reference range: 10*3/?L. The reference range was not used to interpret this result as normal/abnormal. GRAN MAT (NEUT) % (test code = 770-8) 80.4 % IMM GRAN % (test code = 0033373680) 0.80 % LYMPH % (test code = 736-9) 11.2 % MONO % (test code = 5905-5) 6.7 % EOS % (test code = 713-8) 0.6 % BASO % (test code = 706-2) 0.3 % GRAN MAT x10^3(ANC) (test code = 3842675959) 13.24 10*3/uL 1.99-6.95 H IMM GRAN x10^3 (test code = 7388680003) 0.13 10*3/uL 0-0.06 H LYMPH x10^3 (test code = 731-0) 1.85 10*3/uL 1.09-3.23 MONO x10^3 (test code = 742-7) 1.11 10*3/uL 0.36-1.02 H EOS x10^3 (test code = 711-2) 0.10 10*3/uL 0.06-0.53 BASO x10^3 (test code = 704-7) 0.05 10*3/uL 0.01-0.09 Lab Interpretation (test code = 47239-4) Abnormal [facility] WITH [id number] 03:03:00* Test Item Value Reference Range Interpretation Comme nts WBC (test code = 6690-2) See_Comment H [Automated message] The system which generated this result transmitted reference range: 4.20 - 10.70 10*3/?L. The reference range was not used to interpret this result as normal/abnormal. RBC (test code = 789-8) See_Comment [Automated message] The system which generated this result transmitted reference range: 4.26 - 5.52 10*6/?L. The reference range was not used to interpret this result as normal/abnormal. HGB (test code = 718-7) 15.6 g/dL 12.2-16.4 HCT (test code = 4544-3) 47.7 % 38.4-49.3 MCV (test code = 787-2) 89.0 fL 81.7-95.6 MCH (test code = 785-6) 29.1 pg 26.1-32.7 MCHC (test code = 786-4) 32.7 g/dL 31.2-35 RDW-SD (test code = 31016-6) 42.6 fL 38.5-51.6 RDW-CV (test code = 788-0) 13.2 % 12.1-15.4 PLT (test code = 777-3) See_Comment H [Automated message] The system which generated this result transmitted reference range: 150 - 328 10*3/?L. The reference range was not used to interpret this result as normal/abnormal. MPV (test code = 72920-8) 11.6 fL 9.8-13 NRBC/100 WBC (test code = 7655737714) See_Comment [Automated message] The system which generated this result transmitted reference range: 0.0 - 10.0 /100 WBCs. The reference range was not used to interpret this result as normal/abnormal. NRBC x10^3 (test code = 4485705127) <0.01 See_Comment [Automated message] The system which generated this result transmitted reference range: 10*3/?L. The reference range was not used to interpret this result as normal/abnormal. GRAN MAT (NEUT) % (test code = 770-8) 80.4 % IMM GRAN % (test code = 5109159527) 0.80 % LYMPH % (test code = 736-9) 11.2 % MONO % (test code = 5905-5) 6.7 % EOS % (test code = 713-8) 0.6 % BASO % (test code = 706-2) 0.3 % GRAN MAT x10^3(ANC) (test code = 9659509162) 13.24 10*3/uL 1.99-6.95 H IMM GRAN x10^3 (test code = 1194115606) 0.13 10*3/uL 0-0.06 H LYMPH x10^3 (test code = 731-0) 1.85 10*3/uL 1.09-3.23 MONO x10^3 (test code = 742-7) 1.11 10*3/uL 0.36-1.02 H EOS x10^3 (test code = 711-2) 0.10 10*3/uL 0.06-0.53 BASO x10^3 (test code = 704-7) 0.05 10*3/uL 0.01-0.09 Lab Interpretation (test code = 27696-8) Abnormal [facility] WITH [id number] 03:03:00* Test Item Value Reference Range Interpretation Comme nts WBC (test code = 6690-2) See_Comment H [Automated message] The system which generated this result transmitted reference range: 4.20 - 10.70 10*3/?L. The reference range was not used to interpret this result as normal/abnormal. RBC (test code = 789-8) See_Comment [Automated message] The system which generated this result transmitted reference range: 4.26 - 5.52 10*6/?L. The reference range was not used to interpret this result as normal/abnormal. HGB (test code = 718-7) 15.6 g/dL 12.2-16.4 HCT (test code = 4544-3) 47.7 % 38.4-49.3 MCV (test code = 787-2) 89.0 fL 81.7-95.6 MCH (test code = 785-6) 29.1 pg 26.1-32.7 MCHC (test code = 786-4) 32.7 g/dL 31.2-35 RDW-SD (test code = 36008-8) 42.6 fL 38.5-51.6 RDW-CV (test code = 788-0) 13.2 % 12.1-15.4 PLT (test code = 777-3) See_Comment H [Automated message] The system which generated this result transmitted reference range: 150 - 328 10*3/?L. The reference range was not used to interpret this result as normal/abnormal. MPV (test code = 57887-5) 11.6 fL 9.8-13 NRBC/100 WBC (test code = 6346566200) See_Comment [Automated message] The system which generated this result transmitted reference range: 0.0 - 10.0 /100 WBCs. The reference range was not used to interpret this result as normal/abnormal. NRBC x10^3 (test code = 1958650538) <0.01 See_Comment [Automated message] The system which generated this result transmitted reference range: 10*3/?L. The reference range was not used to interpret this result as normal/abnormal. GRAN MAT (NEUT) % (test code = 770-8) 80.4 % IMM GRAN % (test code = 6266265718) 0.80 % LYMPH % (test code = 736-9) 11.2 % MONO % (test code = 5905-5) 6.7 % EOS % (test code = 713-8) 0.6 % BASO % (test code = 706-2) 0.3 % GRAN MAT x10^3(ANC) (test code = 7848877355) 13.24 10*3/uL 1.99-6.95 H IMM GRAN x10^3 (test code = 6437251995) 0.13 10*3/uL 0-0.06 H LYMPH x10^3 (test code = 731-0) 1.85 10*3/uL 1.09-3.23 MONO x10^3 (test code = 742-7) 1.11 10*3/uL 0.36-1.02 H EOS x10^3 (test code = 711-2) 0.10 10*3/uL 0.06-0.53 BASO x10^3 (test code = 704-7) 0.05 10*3/uL 0.01-0.09 Lab Interpretation (test code = 11545-0) Abnormal [facility] WITH [id number] 03:03:00* Test Item Value Reference Range Interpretation Comme nts WBC (test code = 6690-2) See_Comment H [Automated message] The system which generated this result transmitted reference range: 4.20 - 10.70 10*3/?L. The reference range was not used to interpret this result as normal/abnormal. RBC (test code = 789-8) See_Comment [Automated message] The system which generated this result transmitted reference range: 4.26 - 5.52 10*6/?L. The reference range was not used to interpret this result as normal/abnormal. HGB (test code = 718-7) 15.6 g/dL 12.2-16.4 HCT (test code = 4544-3) 47.7 % 38.4-49.3 MCV (test code = 787-2) 89.0 fL 81.7-95.6 MCH (test code = 785-6) 29.1 pg 26.1-32.7 MCHC (test code = 786-4) 32.7 g/dL 31.2-35 RDW-SD (test code = 96287-1) 42.6 fL 38.5-51.6 RDW-CV (test code = 788-0) 13.2 % 12.1-15.4 PLT (test code = 777-3) See_Comment H [Automated message] The system which generated this result transmitted reference range: 150 - 328 10*3/?L. The reference range was not used to interpret this result as normal/abnormal. MPV (test code = 27615-1) 11.6 fL 9.8-13 NRBC/100 WBC (test code = 2741070326) See_Comment [Automated message] The system which generated this result transmitted reference range: 0.0 - 10.0 /100 WBCs. The reference range was not used to interpret this result as normal/abnormal. NRBC x10^3 (test code = 7937738634) <0.01 See_Comment [Automated message] The system which generated this result transmitted reference range: 10*3/?L. The reference range was not used to interpret this result as normal/abnormal. GRAN MAT (NEUT) % (test code = 770-8) 80.4 % IMM GRAN % (test code = 3014700480) 0.80 % LYMPH % (test code = 736-9) 11.2 % MONO % (test code = 5905-5) 6.7 % EOS % (test code = 713-8) 0.6 % BASO % (test code = 706-2) 0.3 % GRAN MAT x10^3(ANC) (test code = 4162971694) 13.24 10*3/uL 1.99-6.95 H IMM GRAN x10^3 (test code = 0622213076) 0.13 10*3/uL 0-0.06 H LYMPH x10^3 (test code = 731-0) 1.85 10*3/uL 1.09-3.23 MONO x10^3 (test code = 742-7) 1.11 10*3/uL 0.36-1.02 H EOS x10^3 (test code = 711-2) 0.10 10*3/uL 0.06-0.53 BASO x10^3 (test code = 704-7) 0.05 10*3/uL 0.01-0.09 Lab Interpretation (test code = 55284-8) Abnormal [facility] WITH [id number] 03:03:00* Test Item Value Reference Range Interpretation Comme nts WBC (test code = 6690-2) See_Comment H [Automated message] The system which generated this result transmitted reference range: 4.20 - 10.70 10*3/?L. The reference range was not used to interpret this result as normal/abnormal. RBC (test code = 789-8) See_Comment [Automated message] The system which generated this result transmitted reference range: 4.26 - 5.52 10*6/?L. The reference range was not used to interpret this result as normal/abnormal. HGB (test code = 718-7) 15.6 g/dL 12.2-16.4 HCT (test code = 4544-3) 47.7 % 38.4-49.3 MCV (test code = 787-2) 89.0 fL 81.7-95.6 MCH (test code = 785-6) 29.1 pg 26.1-32.7 MCHC (test code = 786-4) 32.7 g/dL 31.2-35 RDW-SD (test code = 84474-2) 42.6 fL 38.5-51.6 RDW-CV (test code = 788-0) 13.2 % 12.1-15.4 PLT (test code = 777-3) See_Comment H [Automated message] The system which generated this result transmitted reference range: 150 - 328 10*3/?L. The reference range was not used to interpret this result as normal/abnormal. MPV (test code = 48791-6) 11.6 fL 9.8-13 NRBC/100 WBC (test code = [id number]) See_Comment [Automated message] The system which generated this result transmitted reference range: 0.0 - 10.0 /100 WBCs. The reference range was not used to interpret this result as normal/abnormal. NRBC x10^3 (test code = [id number]) <0.01 See_Comment [Automated message] The system which generated this result transmitted reference range: 10*3/?L. The reference range was not used to interpret this result as normal/abnormal. GRAN MAT (NEUT) % (test code = 770-8) 80.4 % IMM GRAN % (test code = 3215421231) 0.80 % LYMPH % (test code = 736-9) 11.2 % MONO % (test code = 5905-5) 6.7 % EOS % (test code = 713-8) 0.6 % BASO % (test code = 706-2) 0.3 % GRAN MAT x10^3(ANC) (test code = 2744396862) 13.24 10*3/uL 1.99-6.95 H IMM GRAN x10^3 (test code = 9924795060) 0.13 10*3/uL 0-0.06 H LYMPH x10^3 (test code = 731-0) 1.85 10*3/uL 1.09-3.23 MONO x10^3 (test code = 742-7) 1.11 10*3/uL 0.36-1.02 H EOS x10^3 (test code = 711-2) 0.10 10*3/uL 0.06-0.53 BASO x10^3 (test code = 704-7) 0.05 10*3/uL 0.01-0.09 Lab Interpretation (test code = 63438-6) Abnormal [facility] WITH [id number] 03:03:00* Test Item Value Reference Range Interpretation Comme nts WBC (test code = 6690-2) See_Comment H [Automated message] The system which generated this result transmitted reference range: 4.20 - 10.70 10*3/?L. The reference range was not used to interpret this result as normal/abnormal. RBC (test code = 789-8) See_Comment [Automated message] The system which generated this result transmitted reference range: 4.26 - 5.52 10*6/?L. The reference range was not used to interpret this result as normal/abnormal. HGB (test code = 718-7) 15.6 g/dL 12.2-16.4 HCT (test code = 4544-3) 47.7 % 38.4-49.3 MCV (test code = 787-2) 89.0 fL 81.7-95.6 MCH (test code = 785-6) 29.1 pg 26.1-32.7 MCHC (test code = 786-4) 32.7 g/dL 31.2-35 RDW-SD (test code = 54614-4) 42.6 fL 38.5-51.6 RDW-CV (test code = 788-0) 13.2 % 12.1-15.4 PLT (test code = 777-3) See_Comment H [Automated message] The system which generated this result transmitted reference range: 150 - 328 10*3/?L. The reference range was not used to interpret this result as normal/abnormal. MPV (test code = 95293-3) 11.6 fL 9.8-13 NRBC/100 WBC (test code = 1060478747) See_Comment [Automated message] The system which generated this result transmitted reference range: 0.0 - 10.0 /100 WBCs. The reference range was not used to interpret this result as normal/abnormal. NRBC x10^3 (test code = 1891969080) <0.01 See_Comment [Automated message] The system which generated this result transmitted reference range: 10*3/?L. The reference range was not used to interpret this result as normal/abnormal. GRAN MAT (NEUT) % (test code = 770-8) 80.4 % IMM GRAN % (test code = 3694359391) 0.80 % LYMPH % (test code = 736-9) 11.2 % MONO % (test code = 5905-5) 6.7 % EOS % (test code = 713-8) 0.6 % BASO % (test code = 706-2) 0.3 % GRAN MAT x10^3(ANC) (test code = 8306098683) 13.24 10*3/uL 1.99-6.95 H IMM GRAN x10^3 (test code = 2585570521) 0.13 10*3/uL 0-0.06 H LYMPH x10^3 (test code = 731-0) 1.85 10*3/uL 1.09-3.23 MONO x10^3 (test code = 742-7) 1.11 10*3/uL 0.36-1.02 H EOS x10^3 (test code = 711-2) 0.10 10*3/uL 0.06-0.53 BASO x10^3 (test code = 704-7) 0.05 10*3/uL 0.01-0.09 Lab Interpretation (test code = 84695-4) Abnormal [facility] WITH [id number] 03:03:00* Test Item Value Reference Range Interpretation Comme nts WBC (test code = 6690-2) See_Comment H [Automated message] The system which generated this result transmitted reference range: 4.20 - 10.70 10*3/?L. The reference range was not used to interpret this result as normal/abnormal. RBC (test code = 789-8) See_Comment [Automated message] The system which generated this result transmitted reference range: 4.26 - 5.52 10*6/?L. The reference range was not used to interpret this result as normal/abnormal. HGB (test code = 718-7) 15.6 g/dL 12.2-16.4 HCT (test code = 4544-3) 47.7 % 38.4-49.3 MCV (test code = 787-2) 89.0 fL 81.7-95.6 MCH (test code = 785-6) 29.1 pg 26.1-32.7 MCHC (test code = 786-4) 32.7 g/dL 31.2-35 RDW-SD (test code = 65749-9) 42.6 fL 38.5-51.6 RDW-CV (test code = 788-0) 13.2 % 12.1-15.4 PLT (test code = 777-3) See_Comment H [Automated message] The system which generated this result transmitted reference range: 150 - 328 10*3/?L. The reference range was not used to interpret this result as normal/abnormal. MPV (test code = 89002-0) 11.6 fL 9.8-13 NRBC/100 WBC (test code = 1171616731) See_Comment [Automated message] The system which generated this result transmitted reference range: 0.0 - 10.0 /100 WBCs. The reference range was not used to interpret this result as normal/abnormal. NRBC x10^3 (test code = 2566891555) <0.01 See_Comment [Automated message] The system which generated this result transmitted reference range: 10*3/?L. The reference range was not used to interpret this result as normal/abnormal. GRAN MAT (NEUT) % (test code = 770-8) 80.4 % IMM GRAN % (test code = 8993354143) 0.80 % LYMPH % (test code = 736-9) 11.2 % MONO % (test code = 5905-5) 6.7 % EOS % (test code = 713-8) 0.6 % BASO % (test code = 706-2) 0.3 % GRAN MAT x10^3(ANC) (test code = 5008794030) 13.24 10*3/uL 1.99-6.95 H IMM GRAN x10^3 (test code = 8813167491) 0.13 10*3/uL 0-0.06 H LYMPH x10^3 (test code = 731-0) 1.85 10*3/uL 1.09-3.23 MONO x10^3 (test code = 742-7) 1.11 10*3/uL 0.36-1.02 H EOS x10^3 (test code = 711-2) 0.10 10*3/uL 0.06-0.53 BASO x10^3 (test code = 704-7) 0.05 10*3/uL 0.01-0.09 Lab Interpretation (test code = 09105-0) Abnormal [facility] WITH [id number] 03:03:00* Test Item Value Reference Range Interpretation Comme nts WBC (test code = 6690-2) See_Comment H [Automated message] The system which generated this result transmitted reference range: 4.20 - 10.70 10*3/?L. The reference range was not used to interpret this result as normal/abnormal. RBC (test code = 789-8) See_Comment [Automated message] The system which generated this result transmitted reference range: 4.26 - 5.52 10*6/?L. The reference range was not used to interpret this result as normal/abnormal. HGB (test code = 718-7) 15.6 g/dL 12.2-16.4 HCT (test code = 4544-3) 47.7 % 38.4-49.3 MCV (test code = 787-2) 89.0 fL 81.7-95.6 MCH (test code = 785-6) 29.1 pg 26.1-32.7 MCHC (test code = 786-4) 32.7 g/dL 31.2-35 RDW-SD (test code = 99019-2) 42.6 fL 38.5-51.6 RDW-CV (test code = 788-0) 13.2 % 12.1-15.4 PLT (test code = 777-3) See_Comment H [Automated message] The system which generated this result transmitted reference range: 150 - 328 10*3/?L. The reference range was not used to interpret this result as normal/abnormal. MPV (test code = 30466-3) 11.6 fL 9.8-13 NRBC/100 WBC (test code = 1311128940) See_Comment [Automated message] The system which generated this result transmitted reference range: 0.0 - 10.0 /100 WBCs. The reference range was not used to interpret this result as normal/abnormal. NRBC x10^3 (test code = 1093172650) <0.01 See_Comment [Automated message] The system which generated this result transmitted reference range: 10*3/?L. The reference range was not used to interpret this result as normal/abnormal. GRAN MAT (NEUT) % (test code = 770-8) 80.4 % IMM GRAN % (test code = 8526568242) 0.80 % LYMPH % (test code = 736-9) 11.2 % MONO % (test code = 5905-5) 6.7 % EOS % (test code = 713-8) 0.6 % BASO % (test code = 706-2) 0.3 % GRAN MAT x10^3(ANC) (test code = 9934378405) 13.24 10*3/uL 1.99-6.95 H IMM GRAN x10^3 (test code = 2573900399) 0.13 10*3/uL 0-0.06 H LYMPH x10^3 (test code = 731-0) 1.85 10*3/uL 1.09-3.23 MONO x10^3 (test code = 742-7) 1.11 10*3/uL 0.36-1.02 H EOS x10^3 (test code = 711-2) 0.10 10*3/uL 0.06-0.53 BASO x10^3 (test code = 704-7) 0.05 10*3/uL 0.01-0.09 Lab Interpretation (test code = 51151-4) Abnormal [facility] WITH [id number] 03:03:00* Test Item Value Reference Range Interpretation Comme nts WBC (test code = 6690-2) See_Comment H [Automated message] The system which generated this result transmitted reference range: 4.20 - 10.70 10*3/?L. The reference range was not used to interpret this result as normal/abnormal. RBC (test code = 789-8) See_Comment [Automated message] The system which generated this result transmitted reference range: 4.26 - 5.52 10*6/?L. The reference range was not used to interpret this result as normal/abnormal. HGB (test code = 718-7) 15.6 g/dL 12.2-16.4 HCT (test code = 4544-3) 47.7 % 38.4-49.3 MCV (test code = 787-2) 89.0 fL 81.7-95.6 MCH (test code = 785-6) 29.1 pg 26.1-32.7 MCHC (test code = 786-4) 32.7 g/dL 31.2-35 RDW-SD (test code = 68644-5) 42.6 fL 38.5-51.6 RDW-CV (test code = 788-0) 13.2 % 12.1-15.4 PLT (test code = 777-3) See_Comment H [Automated message] The system which generated this result transmitted reference range: 150 - 328 10*3/?L. The reference range was not used to interpret this result as normal/abnormal. MPV (test code = 42489-6) 11.6 fL 9.8-13 NRBC/100 WBC (test code = 5422071465) See_Comment [Automated message] The system which generated this result transmitted reference range: 0.0 - 10.0 /100 WBCs. The reference range was not used to interpret this result as normal/abnormal. NRBC x10^3 (test code = 2833329061) <0.01 See_Comment [Automated message] The system which generated this result transmitted reference range: 10*3/?L. The reference range was not used to interpret this result as normal/abnormal. GRAN MAT (NEUT) % (test code = 770-8) 80.4 % IMM GRAN % (test code = 2758748641) 0.80 % LYMPH % (test code = 736-9) 11.2 % MONO % (test code = 5905-5) 6.7 % EOS % (test code = 713-8) 0.6 % BASO % (test code = 706-2) 0.3 % GRAN MAT x10^3(ANC) (test code = 2294438223) 13.24 10*3/uL 1.99-6.95 H IMM GRAN x10^3 (test code = 7590791649) 0.13 10*3/uL 0-0.06 H LYMPH x10^3 (test code = 731-0) 1.85 10*3/uL 1.09-3.23 MONO x10^3 (test code = 742-7) 1.11 10*3/uL 0.36-1.02 H EOS x10^3 (test code = 711-2) 0.10 10*3/uL 0.06-0.53 BASO x10^3 (test code = 704-7) 0.05 10*3/uL 0.01-0.09 Lab Interpretation (test code = 25072-1) Abnormal [facility] WITH [id number] 03:03:00* Test Item Value Reference Range Interpretation Comme nts WBC (test code = 6690-2) See_Comment H [Automated message] The system which generated this result transmitted reference range: 4.20 - 10.70 10*3/?L. The reference range was not used to interpret this result as normal/abnormal. RBC (test code = 789-8) See_Comment [Automated message] The system which generated this result transmitted reference range: 4.26 - 5.52 10*6/?L. The reference range was not used to interpret this result as normal/abnormal. HGB (test code = 718-7) 15.6 g/dL 12.2-16.4 HCT (test code = 4544-3) 47.7 % 38.4-49.3 MCV (test code = 787-2) 89.0 fL 81.7-95.6 MCH (test code = 785-6) 29.1 pg 26.1-32.7 MCHC (test code = 786-4) 32.7 g/dL 31.2-35 RDW-SD (test code = 09519-0) 42.6 fL 38.5-51.6 RDW-CV (test code = 788-0) 13.2 % 12.1-15.4 PLT (test code = 777-3) See_Comment H [Automated message] The system which generated this result transmitted reference range: 150 - 328 10*3/?L. The reference range was not used to interpret this result as normal/abnormal. MPV (test code = 82324-6) 11.6 fL 9.8-13 NRBC/100 WBC (test code = 4961579783) See_Comment [Automated message] The system which generated this result transmitted reference range: 0.0 - 10.0 /100 WBCs. The reference range was not used to interpret this result as normal/abnormal. NRBC x10^3 (test code = 7576657010) <0.01 See_Comment [Automated message] The system which generated this result transmitted reference range: 10*3/?L. The reference range was not used to interpret this result as normal/abnormal. GRAN MAT (NEUT) % (test code = 770-8) 80.4 % IMM GRAN % (test code = 4641673327) 0.80 % LYMPH % (test code = 736-9) 11.2 % MONO % (test code = 5905-5) 6.7 % EOS % (test code = 713-8) 0.6 % BASO % (test code = 706-2) 0.3 % GRAN MAT x10^3(ANC) (test code = 0932571614) 13.24 10*3/uL 1.99-6.95 H IMM GRAN x10^3 (test code = 2316121436) 0.13 10*3/uL 0-0.06 H LYMPH x10^3 (test code = 731-0) 1.85 10*3/uL 1.09-3.23 MONO x10^3 (test code = 742-7) 1.11 10*3/uL 0.36-1.02 H EOS x10^3 (test code = 711-2) 0.10 10*3/uL 0.06-0.53 BASO x10^3 (test code = 704-7) 0.05 10*3/uL 0.01-0.09 Lab Interpretation (test code = 30727-0) Abnormal [facility] WITH [id number] 03:03:00* Test Item Value Reference Range Interpretation Comme nts WBC (test code = 6690-2) See_Comment H [Automated message] The system which generated this result transmitted reference range: 4.20 - 10.70 10*3/?L. The reference range was not used to interpret this result as normal/abnormal. RBC (test code = 789-8) See_Comment [Automated message] The system which generated this result transmitted reference range: 4.26 - 5.52 10*6/?L. The reference range was not used to interpret this result as normal/abnormal. HGB (test code = 718-7) 15.6 g/dL 12.2-16.4 HCT (test code = 4544-3) 47.7 % 38.4-49.3 MCV (test code = 787-2) 89.0 fL 81.7-95.6 MCH (test code = 785-6) 29.1 pg 26.1-32.7 MCHC (test code = 786-4) 32.7 g/dL 31.2-35 RDW-SD (test code = 86569-7) 42.6 fL 38.5-51.6 RDW-CV (test code = 788-0) 13.2 % 12.1-15.4 PLT (test code = 777-3) See_Comment H [Automated message] The system which generated this result transmitted reference range: 150 - 328 10*3/?L. The reference range was not used to interpret this result as normal/abnormal. MPV (test code = 35856-0) 11.6 fL 9.8-13 NRBC/100 WBC (test code = 4635863230) See_Comment [Automated message] The system which generated this result transmitted reference range: 0.0 - 10.0 /100 WBCs. The reference range was not used to interpret this result as normal/abnormal. NRBC x10^3 (test code = 9347293494) <0.01 See_Comment [Automated message] The system which generated this result transmitted reference range: 10*3/?L. The reference range was not used to interpret this result as normal/abnormal. GRAN MAT (NEUT) % (test code = 770-8) 80.4 % IMM GRAN % (test code = 7161866966) 0.80 % LYMPH % (test code = 736-9) 11.2 % MONO % (test code = 5905-5) 6.7 % EOS % (test code = 713-8) 0.6 % BASO % (test code = 706-2) 0.3 % GRAN MAT x10^3(ANC) (test code = 4222461239) 13.24 10*3/uL 1.99-6.95 H IMM GRAN x10^3 (test code = 9893405691) 0.13 10*3/uL 0-0.06 H LYMPH x10^3 (test code = 731-0) 1.85 10*3/uL 1.09-3.23 MONO x10^3 (test code = 742-7) 1.11 10*3/uL 0.36-1.02 H EOS x10^3 (test code = 711-2) 0.10 10*3/uL 0.06-0.53 BASO x10^3 (test code = 704-7) 0.05 10*3/uL 0.01-0.09 Lab Interpretation (test code = 13756-9) [facility] [id number] 02:54:05Underinflation with hazy central predominant opacities, nonspecific.Infection, including COVID pneumonia may be present. Disclaimer: Generally, the findings on chest imaging in COVID-19 are notspecific, and overlap with other infections, including influenza, H1N1,SARS and MERS.According to the Centers for Disease Control (CDC) and recent statement ofthe [employer], viral testing remains the only specificmethod of diagnosis. Confirmation with the viral test is required, even ifradiologic findings are suggestive of COVID-[address] Preliminary Report Dictated by Resident: Eliezer Dove MD., have reviewed this study and agree withthe above report.EXAM: XR CHEST 1 VW HISTORY: SOB/recent covid positive COMPARISON: Chest On 03/31/2015 TECHNIQUE: : ?Single view radiograph of the chest FINDINGS: The right hemidiaphragm is elevated. Ill-defined right suprahilar andbilateral central hazy opacities are noted. No pleural effusion orpneumothorax. The heart size is enlarged. No acute osseous abnormality is identified. [facility], Radiant Results Inft User - 10/26/2019 9:55 PM CDTEXAM: XR CHEST 1 VWHISTORY: SOB/recent covid positive COMPARISON: ChestOn 03/31/2015TECHNIQUE: : Single view radiograph of the chestFINDINGS:The right hemidiaphragm is elevated. Ill-defined right suprahilar andbilateral central hazy opacities are noted. No pleural effusion orpneumothorax. The heart size is enlarged.No acute osseous abnormality is identified.IMPRESSIONUnderinflation with hazy central predominant opacities, nonspecific.Infection, including COVID pneumonia may be present.Disclaimer: Generally, the findings on chest imaging in COVID-19 are notspecific, and overlap with other infections, including influenza, H1N1,SARS and MERS.According to the Centers for Disease Control (CDC) and recent statement ofthe [employer], viral testing remains the only specificmethod of diagnosis. Confirmation with the viral test is required, evenifradiologic findings are suggestive of COVID-[address]Preliminary Report Dictated by Resident: Eliezer Leigh MD., have reviewed this study and agree withthe above report.[facility] Electroencephalogram (EEG) - Duration of test: 20-60 [id number] 00:00:00Date and Time of Procedure: 10/27/2019, 15:35:31-16:01:22 REPORT TECHNICAL SUMMARY: The EEG was recorded digitally. Electrodes were applied using the International 10/20 System of electrode placement.Eye movements and rhythm strip ECG were monitored on separate channels of the ongoing EEG recording. The occipital dominant rhythm consists of moderate amplitude 7.5-8 Hz activity. More anteriorly, similar as well as faster frequencies are present, including low amplitude 18-22 Hz activities in theanterior leads. There is an excessive amount of 4-8 Hz activity diffusely. Drowsiness and sleep do not reveal additional abnormalities. IMPRESSION: This EEG is abnormal due to mild diffuse slowing, wh ich can be suggestive of a mild diffuse disturbance in cerebral function but can also be related tosedating medications. No electrographic seizures or epileptiform abnormalities are seen. The absence of epileptiform abnormalities in one EEG does not necessarily rule out a diagnosis of epilepsy or the potential for epileptic seizures, however. The diagnostic sensitivity can be enhanced by a repeat study, which would be appropriate if clinically indicated. Christiano Kirby Rai, MD Date [facility] interpretation: [facility]2019[facility] Duration of test: 20-60 [id number] 00:00:00Date and Time of Procedure: 10/27/2019, 15:35:31-::22 REPORT TECHNICAL SUMMARY: The EEG was recorded digitally. Electrodes were applied using the International 10/20 System of electrode placement.Eye movements and rhythm strip ECG were monitored on separate channels of the ongoing EEG recording. The occipital dominant rhythm consists of moderate amplitude 7.5-8 Hz activity. More anteriorly, similar as well as faster frequencies are present, including low amplitude 18-22 Hz activities in theanterior leads. There is an excessive amount of 4-8 Hz activity diffusely. Drowsiness and sleep do not reveal additional abnormalities. IMPRESSION: This EEG is abnormal due to mild diffuse slowing, which can be suggestive of a mild diffuse disturbance in cerebral function but can also be related tosedating medications. No electrographic seizures or epileptiform abnormalities are seen. The absence of epileptiform abnormalities in one EEG does not necessarily rule out a diagnosis of epilepsy or the potential for epileptic seizures, however. The diagnostic sensitivity can be enhanced by a repeat study, which would be appropriate if clinically indicated. Christiano Kirby Rai, MD Date [facility]: [facility]2019[facility] Duration of test: 20-60 [id number] 00:00:00Date and Time of Procedure: 10/27/2019, :35:31-::22 REPORT TECHNICAL SUMMARY: The EEG was recorded digitally. Electrodes were applied using the International 10/20 System of electrode placement.Eye movements and rhythm strip ECG were monitored on separate channels of the ongoing EEG recording. The occipital dominant rhythm consists of moderate amplitude 7.5-8 Hz activity. More anteriorly, similar as well as faster frequencies are present, including low amplitude 18-22 Hz activities in theanterior leads. There is an excessive amount of 4-8 Hz activity diffusely. Drowsiness and sleep do not reveal additional abnormalities. IMPRESSION: This EEG is abnormal due to mild diffuse slowing, which can be suggestive of a mild diffuse disturbance in cerebral function but can also be related tosedating medications. No electrographic seizures or epileptiform abnormalities are seen. The absence of epileptiform abnormalities in one EEG does not necessarily rule out a diagnosis of epilepsy or the potential for epileptic seizures, however. The diagnostic sensitivity can be enhanced by a repeat study, which would be appropriate if clinically indicated. Christiano Kirby Rai, MD Date of interpretation: 10/27/2019[facility] - Duration of test: 20-60 [id number] 00:00:00Date and Time of Procedure: 10/27/2019, 15:35:31-16:01:22 REPORT TECHNICAL SUMMARY: The EEG was recorded digitally. Electrodes were applied using the International 10/20 System of electrode placement.Eye movements and rhythm strip ECG were monitored on separate channels of the ongoing EEG recording. The occipital dominant rhythm consists of moderate amplitude 7.5-8 Hz activity. More anteriorly, similar as well as faster frequencies are present, including low amplitude 18-22 Hz activities in theanterior leads. There is an excessive amount of 4-8 Hz activity diffusely. Drowsiness and sleep do not reveal additional abnormalities. IMPRESSION: This EEG is abnormal due to mild diffuse slowing, which can be suggestive of a mild diffuse disturbance in cerebral function but can also be related tosedating medications. No electrographic seizures or epileptiform abnormalities are seen. The absence of epileptiform abnormalities in one EEG does not necessarily rule out a diagnosis of epilepsy or the potential for epileptic seizures, however. The diagnostic sensitivity can be enhanced by a repeat study, which would be appropriate if clinically indicated. Christiano Kirby Rai, MD Date of interpretation: 10/27/2019[facility] - Duration of test: 20-60 [id number] 00:00:00Date and Time of Procedure: 10/27/2019, 15:35:31-16:01:22 REPORT TECHNICAL SUMMARY: The EEG was recorded digitally. Electrodes were applied using the International 10/20 System of electrode placement.Eye movements and rhythm strip ECG were monitored on separate channels of the ongoing EEG recording. The occipital dominant rhythm consists of moderate amplitude 7.5-8 Hz activity. More anteriorly, similar as well as faster frequencies are present, including low amplitude 18-22 Hz activities in theanterior leads. There is an excessive amount of 4-8 Hz activity diffusely. Drowsiness and sleep do not reveal additional abnormalities. IMPRESSION: This EEG is abnormal due to mild diffuse slowing, which can be suggestive of a mild diffuse disturbance in cerebral function but can also be related tosedating medications. No electrographic seizures or epileptiform abnormalities are seen. The absence of epileptiform abnormalities in one EEG does not necessarily rule out a diagnosis of epilepsy or the potential for epileptic seizures, however. The diagnostic sensitivity can be enhanced by a repeat study, which would be appropriate if clinically indicated. Christiano Kirby Rai, MD Date of interpretation: 10/27/2019[facility] - Duration of test: 20-60 [id number] 00:00:00Date and Time of Procedure: 10/27/2019, 15:35:31-::22 REPORT TECHNICAL SUMMARY: The EEG was recorded digitally. Electrodes were applied using the International 10/20 System of electrode placement.Eye movements and rhythm strip ECG were monitored on separate channels of the ongoing EEG recording. The occipital dominant rhythm consists of moderate amplitude 7.5-8 Hz activity. More anteriorly, similar as well as faster frequencies are present, including low amplitude 18-22 Hz activities in theanterior leads. There is an excessive amount of 4-8 Hz activity diffusely. Drowsiness and sleep do not reveal additional abnormalities. IMPRESSION: This EEG is abnormal due to mild diffuse slowing, which can be suggestive of a mild diffuse disturbance in cerebral function but can also be related tosedating medications. No electrographic seizures or epileptiform abnormalities are seen. The absence of epileptiform abnormalities in one EEG does not necessarily rule out a diagnosis of epilepsy or the potential for epileptic seizures, however. The diagnostic sensitivity can be enhanced by a repeat study, which would be appropriate if clinically indicated. Christiano Kirby Rai, MD Date of interpretation: 10/27/2019[facility] - Duration of test: 20-60 [id number] 00:00:00Date and Time of Procedure: 10/27/2019, :35:31-::22 REPORT TECHNICAL SUMMARY: The EEG was recorded digitally. Electrodes were applied using the International 10/20 System of electrode placement.Eye movements and rhythm strip ECG were monitored on separate channels of the ongoing EEG recording. The occipital dominant rhythm consists of moderate amplitude 7.5-8 Hz activity. More anteriorly, similar as well as faster frequencies are present, including low amplitude 18-22 Hz activities in theanterior leads. There is an excessive amount of 4-8 Hz activity diffusely. Drowsiness and sleep do not reveal additional abnormalities. IMPRESSION: This EEG is abnormal due to mild diffuse slowing, which can be suggestive of a mild diffuse disturbance in cerebral function but can also be related tosedating medications. No electrographic seizures or epileptiform abnormalities are seen. The absence of epileptiform abnormalities in one EEG does not necessarily rule out a diagnosis of epilepsy or the potential for epileptic seizures, however. The diagnostic sensitivity can be enhanced by a repeat study, which would be appropriate if clinically indicated. Christiano Kirby Rai, MD Date of [facility]: [facility]/2019[facility] - Duration of test: 20-60 [id number] 00:00:00Date and Time of Procedure: 10/27/2019, :35:31-16:01:22 REPORT TECHNICAL SUMMARY: The EEG was recorded digitally. Electrodes were applied using the International 10/20 System of electrode placement.Eye movements and rhythm strip ECG were monitored on separate channels of the ongoing EEG recording. The occipital dominant rhythm consists of moderate amplitude 7.5-8 Hz activity. More anteriorly, similar as well as faster frequencies are present, including low amplitude 18-22 Hz activities in theanterior leads. There is an excessive amount of 4-8 Hz activity diffusely. Drowsiness and sleep do not reveal additional abnormalities. IMPRESSION: This EEG is abnormal due to mild diffuse slowing, which can be suggestive of a mild diffuse disturbance in cerebral function but can also be related tosedating medications. No electrographic seizures or epileptiform abnormalities are seen. The absence of epileptiform abnormalities in one EEG does not necessarily rule out a diagnosis of epilepsy or the potential for epileptic seizures, however. The diagnostic sensitivity can be enhanced by a repeat study, which would be appropriate if clinically indicated. Christiano Kirby Rai, MD Date of [facility]: 10/27/2019[facility] Duration of test: 20-60 [id number] 00:00:00Date and Time of Procedure: 10/27/2019, 15:35:31-16:01:22 REPORT TECHNICAL SUMMARY: The EEG was recorded digitally. Electrodes were applied using the International 10/20 System of electrode placement.Eye movements and rhythm strip ECG were monitored on separate channels of the ongoing EEG recording. The occipital dominant rhythm consists of moderate amplitude 7.5-8 Hz activity. More anteriorly, similar as well as faster frequencies are present, including low amplitude 18-22 Hz activities in theanterior leads. There is an excessive amount of 4-8 Hz activity diffusely. Drowsiness and sleep do not reveal additional abnormalities. IMPRESSION: This EEG is abnormal due to mild diffuse slowing, which can be suggestive of a mild diffuse disturbance in cerebral function but can also be related tosedating medications. No electrographic seizures or epileptiform abnormalities are seen. The absence of epileptiform abnormalities in one EEG does not necessarily rule out a diagnosis of epilepsy or the potential for epileptic seizures, however. The diagnostic sensitivity can be enhanced by a repeat study, which would be appropriate if clinically indicated. Christiano Kirby Rai, MD Date of interpretation: 10/27/2019[facility] - Duration of test: 20-60 [id number] 00:00:00Date and Time of Procedure: 10/27/2019, 15:35:31-::22 REPORT TECHNICAL SUMMARY: The EEG was recorded digitally. Electrodes were applied using the International 10/20 System of electrode placement.Eye movements and rhythm strip ECG were monitored on separate channels of the ongoing EEG recording. The occipital dominant rhythm consists of moderate amplitude 7.5-8 Hz activity. More anteriorly, similar as well as faster frequencies are present, including low amplitude 18-22 Hz activities in theanterior leads. There is an excessive amount of 4-8 Hz activity diffusely. Drowsiness and sleep do not reveal additional abnormalities. IMPRESSION: This EEG is abnormal due to mild diffuse slowing, which can be suggestive of a mild diffuse disturbance in cerebral function but can also be related tosedating medications. No electrographic seizures or epileptiform abnormalities are seen. The absence of epileptiform abnormalities in one EEG does not necessarily rule out a diagnosis of epilepsy or the potential for epileptic seizures, however. The diagnostic sensitivity can be enhanced by a repeat study, which would be appropriate if clinically indicated. Christiano Kirby Rai, MD Date of interpretation: 10/27/2019[facility] - Duration of test: 20-60 [id number] 00:00:00Date and Time of Procedure: 10/27/2019, 15:35:31-::22 REPORT TECHNICAL SUMMARY: The EEG was recorded digitally. Electrodes were applied using the International 10/20 System of electrode placement.Eye movements and rhythm strip ECG were monitored on separate channels of the ongoing EEG recording. The occipital dominant rhythm consists of moderate amplitude 7.5-8 Hz activity. More anteriorly, similar as well as faster frequencies are present, including low amplitude 18-22 Hz activities in theanterior leads. There is an excessive amount of 4-8 Hz activity diffusely. Drowsiness and sleep do not reveal additional abnormalities. IMPRESSION: This EEG is abnormal due to mild diffuse slowing, which can be suggestive of a mild diffuse disturbance in cerebral function but can also be related tosedating medications. No electrographic seizures or epileptiform abnormalities are seen. The absence of epileptiform abnormalities in one EEG does not necessarily rule out a diagnosis of epilepsy or the potential for epileptic seizures, however. The diagnostic sensitivity can be enhanced by a repeat study, which would be appropriate if clinically indicated. Christiano Kirby Rai, MD Date of interpretation: 10[facility]27/2019[facility] Duration of test: 20-60 [id number] 00:00:00Date and Time of Procedure: 10/27/2019, 15:35:31-16:01:22 REPORT TECHNICAL SUMMARY: The EEG was recorded digitally. Electrodes were applied using the International 10/20 System of electrode placement.Eye movements and rhythm strip ECG were monitored on separate channels of the ongoing EEG recording. The occipital dominant rhythm consists of moderate amplitude 7.5-8 Hz activity. More anteriorly, similar as well as faster frequencies are present, including low amplitude 18-22 Hz activities in theanterior leads. There is an excessive amount of 4-8 Hz activity diffusely. Drowsiness and sleep do not reveal additional abnormalities. IMPRESSION: This EEG is abnormal due to mild diffuse slowing, which can be suggestive of a mild diffuse disturbance in cerebral function but can also be related tosedating medications. No electrographic seizures or epileptiform abnormalities are seen. The absence of epileptiform abnormalities in one EEG does not necessarily rule out a diagnosis of epilepsy or the potential for epileptic seizures, however. The diagnostic sensitivity can be enhanced by a repeat study, which would be appropriate if clinically indicated. Christiano Kirby Rai, MD Date of interpretation: 10/27/2019[facility] - Duration of test: 20-60 [id number] 00:00:00Date and Time of Procedure: 10/27/2019, 15:35:31-16:01:22 REPORT TECHNICAL SUMMARY: The EEG was recorded digitally. Electrodes were applied using the International 10/20 System of electrode placement.Eye movements and rhythm strip ECG were monitored on separate channels of the ongoing EEG recording. The occipital dominant rhythm consists of moderate amplitude 7.5-8 Hz activity. More anteriorly, similar as well as faster frequencies are present, including low amplitude 18-22 Hz activities in theanterior leads. There is an excessive amount of 4-8 Hz activity diffusely. Drowsiness and sleep do not reveal additional abnormalities. IMPRESSION: This EEG is abnormal due to mild diffuse slowing, which can be suggestive of a mild diffuse disturbance in cerebral function but can also be related tosedating medications. No electrographic seizures or epileptiform abnormalities are seen. The absence of epileptiform abnormalities in one EEG does not necessarily rule out a diagnosis of epilepsy or the potential for epileptic seizures, however. The diagnostic sensitivity can be enhanced by a repeat study, which would be appropriate if clinically indicated. Christiano Kirby Rai, MD Date of interpretation: 10/27/2019[facility] - Duration of test: 20-60 [id number] 00:00:00Date and Time of Procedure: 10/27/2019, 15:35:31-16:01:22 REPORT TECHNICAL SUMMARY: The EEG was recorded digitally. Electrodes were applied using the International 10/20 System of electrode placement.Eye movements and rhythm strip ECG were monitored on separate channels of the ongoing EEG recording. The occipital dominant rhythm consists of moderate amplitude 7.5-8 Hz activity. More anteriorly, similar as well as faster frequencies are present, including low amplitude 18-22 Hz activities in theanterior leads. There is an excessive amount of 4-8 Hz activity diffusely. Drowsiness and sleep do not reveal additional abnormalities. IMPRESSION: This EEG is abnormal due to mild diffuse slowing, which can be suggestive of a mild diffuse disturbance in cerebral function but can also be related tosedating medications. No electrographic seizures or epileptiform abnormalities are seen. The absence of epileptiform abnormalities in one EEG does not necessarily rule out a diagnosis of epilepsy or the potential for epileptic seizures, however. The diagnostic sensitivity can be enhanced by a repeat study, which would be appropriate if clinically indicated. Christiano Kirby Rai, MD Date of interpretation: 10/27/2019[facility] - Duration of test: 20-60 [id number] 00:00:00Date and Time of Procedure: 10/27/2019, 15:35:31-16:01:22 REPORT TECHNICAL SUMMARY: The EEG was recorded digitally. Electrodes were applied using the International 10/20 System of electrode placement.Eye movements and rhythm strip ECG were monitored on separate channels of the ongoing EEG recording. The occipital dominant rhythm consists of moderate amplitude 7.5-8 Hz activity. More anteriorly, similar as well as faster frequencies are present, including low amplitude 18-22 Hz activities in theanterior leads. There is an excessive amount of 4-8 Hz activity diffusely. Drowsiness and sleep do not reveal additional abnormalities. IMPRESSION: This EEG is abnormal due to mild diffuse slowing, which can be suggestive of a mild diffuse disturbance in cerebral function but can also be related tosedating medications. No electrographic seizures or epileptiform abnormalities are seen. The absence of epileptiform abnormalities in one EEG does not necessarily rule out a diagnosis of epilepsy or the potential for epileptic seizures, however. The diagnostic sensitivity can be enhanced by a repeat study, which would be appropriate if clinically indicated. Christiano Kirby Rai, MD Date of interpretation: 10/27/2019[facility] - Duration of test: 20-60 [id number] 00:00:00Date and Time of Procedure: 10/27/2019, 15:35:31-16:01:22 REPORT TECHNICAL SUMMARY: The EEG was recorded digitally. Electrodes were applied using the International 10/20 System of electrode placement.Eye movements and rhythm strip ECG were monitored on separate channels of the ongoing EEG recording. The occipital dominant rhythm consists of moderate amplitude 7.5-8 Hz activity. More anteriorly, similar as well as faster frequencies are present, including low amplitude 18-22 Hz activities in theanterior leads. There is an excessive amount of 4-8 Hz activity diffusely. Drowsiness and sleep do not reveal additional abnormalities. IMPRESSION: This EEG is abnormal due to mild diffuse slowing, which can be suggestive of a mild diffuse disturbance in cerebral function but can also be related tosedating medications. No electrographic seizures or epileptiform abnormalities are seen. The absence of epileptiform abnormalities in one EEG does not necessarily rule out a diagnosis of epilepsy or the potential for epileptic seizures, however. The diagnostic sensitivity can be enhanced by a repeat study, which would be appropriate if clinically indicated. Christiano Kirby Rai, MD Date of interpretation: 10/27/2019[facility] - Duration of test: 20-60 [id number] 00:00:00Date and Time of Procedure: 10/27/2019, 15:35:31-16:01:22 REPORT TECHNICAL SUMMARY: The EEG was recorded digitally. Electrodes were applied using the International 10/20 System of electrode placement.Eye movements and rhythm strip ECG were monitored on separate channels of the ongoing EEG recording. The occipital dominant rhythm consists of moderate amplitude 7.5-8 Hz activity. More anteriorly, similar as well as faster frequencies are present, including low amplitude 18-22 Hz activities in theanterior leads. There is an excessive amount of 4-8 Hz activity diffusely. Drowsiness and sleep do not reveal additional abnormalities. IMPRESSION: This EEG is abnormal due to mild diffuse slowing, which can be suggestive of a mild diffuse disturbance in cerebral function but can also be related tosedating medications. No electrographic seizures or epileptiform abnormalities are seen. The absence of epileptiform abnormalities in one EEG does not necessarily rule out a diagnosis of epilepsy or the potential for epileptic seizures, however. The diagnostic sensitivity can be enhanced by a repeat study, which would be appropriate if clinically indicated. Christiano Kirby Rai, MD Date of interpretation: 10/27/2019[facility] - Duration of test: 20-60 [id number] 00:00:00Date and Time of Procedure: 10/27/2019, 15:35:31-16:01:22 REPORT TECHNICAL SUMMARY: The EEG was recorded digitally. Electrodes were applied using the International 10/20 System of electrode placement.Eye movements and rhythm strip ECG were monitored on separate channels of the ongoing EEG recording. The occipital dominant rhythm consists of moderate amplitude 7.5-8 Hz activity. More anteriorly, similar as well as faster frequencies are present, including low amplitude 18-22 Hz activities in theanterior leads. There is an excessive amount of 4-8 Hz activity diffusely. Drowsiness and sleep do not reveal additional abnormalities. IMPRESSION: This EEG is abnormal due to mild diffuse slowing, which can be suggestive of a mild diffuse disturbance in cerebral function but can also be related tosedating medications. No electrographic seizures or epileptiform abnormalities are seen. The absence of epileptiform abnormalities in one EEG does not necessarily rule out a diagnosis of epilepsy or the potential for epileptic seizures, however. The diagnostic sensitivity can be enhanced by a repeat study, which would be appropriate if clinically indicated. Christiano Kirby Rai, MD Date of interpretation: 10/27/2019[facility] - Duration of test: 20-60 [id number] 00:00:00Date and Time of Procedure: 10/27/2019, 15:35:31-16:01:22 REPORT TECHNICAL SUMMARY: The EEG was recorded digitally. Electrodes were applied using the International 10/20 System of electrode placement.Eye movements and rhythm strip ECG were monitored on separate channels of the ongoing EEG recording. The occipital dominant rhythm consists of moderate amplitude 7.5-8 Hz activity. More anteriorly, similar as well as faster frequencies are present, including low amplitude 18-22 Hz activities in theanterior leads. There is an excessive amount of 4-8 Hz activity diffusely. Drowsiness and sleep do not reveal additional abnormalities. IMPRESSION: This EEG is abnormal due to mild diffuse slowing, which can be suggestive of a mild diffuse disturbance in cerebral function but can also be related tosedating medications. No electrographic seizures or epileptiform abnormalities are seen. The absence of epileptiform abnormalities in one EEG does not necessarily rule out a diagnosis of epilepsy or the potential for epileptic seizures, however. The diagnostic sensitivity can be enhanced by a repeat study, which would be appropriate if clinically indicated. Christiano Kirby Rai, MD Date of interpretation: 10/27/2019[facility] Duration of test: 20-60 [id number] 00:00:00Date and Time of Procedure: 10/27/2019, 15:35:31-16:01:22 REPORT TECHNICAL SUMMARY: The EEG was recorded digitally. Electrodes were applied using the International 10/20 System of electrode placement.Eye movements and rhythm strip ECG were monitored on separate channels of the ongoing EEG recording. The occipital dominant rhythm consists of moderate amplitude 7.5-8 Hz activity. More anteriorly, similar as well as faster frequencies are present, including low amplitude 18-22 Hz activities in theanterior leads. There is an excessive amount of 4-8 Hz activity diffusely. Drowsiness and sleep do not reveal additional abnormalities. IMPRESSION: This EEG is abnormal due to mild diffuse slowing, which can be suggestive of a mild diffuse disturbance in cerebral function but can also be related tosedating medications. No electrographic seizures or epileptiform abnormalities are seen. The absence of epileptiform abnormalities in one EEG does not necessarily rule out a diagnosis of epilepsy or the potential for epileptic seizures, however. The diagnostic sensitivity can be enhanced by a repeat study, which would be appropriate if clinically indicated. Christiano Kirby Rai, MD Date of interpretation: 10/27/2019[facility] - Duration of test: 20-60 [id number] 00:00:00Date and Time of Procedure: 10/27/2019, 15:35:31-16:01:22 REPORT TECHNICAL SUMMARY: The EEG was recorded digitally. Electrodes were applied using the International 10/20 System of electrode placement.Eye movements and rhythm strip ECG were monitored on separate channels of the ongoing EEG recording. The occipital dominant rhythm consists of moderate amplitude 7.5-8 Hz activity. More anteriorly, similar as well as faster frequencies are present, including low amplitude 18-22 Hz activities in theanterior leads. There is an excessive amount of 4-8 Hz activity diffusely. Drowsiness and sleep do not reveal additional abnormalities. IMPRESSION: This EEG is abnormal due to mild diffuse slowing, which can be suggestive of a mild diffuse disturbance in cerebral function but can also be related tosedating medications. No electrographic seizures or epileptiform abnormalities are seen. The absence of epileptiform abnormalities in one EEG does not necessarily rule out a diagnosis of epilepsy or the potential for epileptic seizures, however. The diagnostic sensitivity can be enhanced by a repeat study, which would be appropriate if clinically indicated. Christiano Kirby Rai, MD Date of interpretation: 10/27/2019[facility] - Duration of test: 20-60 [id number] 00:00:00Date and Time of Procedure: 10/27/2019, 15:35:31-16:01:22 REPORT TECHNICAL SUMMARY: The EEG was recorded digitally. Electrodes were applied using the International 10/20 System of electrode placement.Eye movements and rhythm strip ECG were monitored on separate channels of the ongoing EEG recording. The occipital dominant rhythm consists of moderate amplitude 7.5-8 Hz activity. More anteriorly, similar as well as faster frequencies are present, including low amplitude 18-22 Hz activities in theanterior leads. There is an excessive amount of 4-8 Hz activity diffusely. Drowsiness and sleep do not reveal additional abnormalities. IMPRESSION: This EEG is abnormal due to mild diffuse slowing, which can be suggestive of a mild diffuse disturbance in cerebral function but can also be related tosedating medications. No electrographic seizures or epileptiform abnormalities are seen. The absence of epileptiform abnormalities in one EEG does not necessarily rule out a diagnosis of epilepsy or the potential for epileptic seizures, however. The diagnostic sensitivity can be enhanced by a repeat study, which would be appropriate if clinically indicated. Christiano Kirby Rai, MD Date of interpretation: 10/27/2019[facility] - Duration of test: 20-60 [id number] 00:00:00Date and Time of Procedure: 10/27/2019, 15:35:31-16:01:22 REPORT TECHNICAL SUMMARY: The EEG was recorded digitally. Electrodes were applied using the International 10/20 System of electrode placement.Eye movements and rhythm strip ECG were monitored on separate channels of the ongoing EEG recording. The occipital dominant rhythm consists of moderate amplitude 7.5-8 Hz activity. More anteriorly, similar as well as faster frequencies are present, including low amplitude 18-22 Hz activities in theanterior leads. There is an excessive amount of 4-8 Hz activity diffusely. Drowsiness and sleep do not reveal additional abnormalities. IMPRESSION: This EEG is abnormal due to mild diffuse slowing, which can be suggestive of a mild diffuse disturbance in cerebral function but can also be related tosedating medications. No electrographic seizures or epileptiform abnormalities are seen. The absence of epileptiform abnormalities in one EEG does not necessarily rule out a diagnosis of epilepsy or the potential for epileptic seizures, however. The diagnostic sensitivity can be enhanced by a repeat study, which would be appropriate if clinically indicated. Christiano Kirby Rai, MD Date of interpretation: 10/27/2019[facility] - Duration of test: 20-60 [id number] 00:00:00Date and Time of Procedure: 10/27/2019, 15:35:31-16:01:22 REPORT TECHNICAL SUMMARY: The EEG was recorded digitally. Electrodes were applied using the International 10/20 System of electrode placement.Eye movements and rhythm strip ECG were monitored on separate channels of the ongoing EEG recording. The occipital dominant rhythm consists of moderate amplitude 7.5-8 Hz activity. More anteriorly, similar as well as faster frequencies are present, including low amplitude 18-22 Hz activities in theanterior leads. There is an excessive amount of 4-8 Hz activity diffusely. Drowsiness and sleep do not reveal additional abnormalities. IMPRESSION: This EEG is abnormal due to mild diffuse slowing, which can be suggestive of a mild diffuse disturbance in cerebral function but can also be related tosedating medications. No electrographic seizures or epileptiform abnormalities are seen. The absence of epileptiform abnormalities in one EEG does not necessarily rule out a diagnosis of epilepsy or the potential for epileptic seizures, however. The diagnostic sensitivity can be enhanced by a repeat study, which would be appropriate if clinically indicated. Christiano Kirby Rai, MD Date of interpretation: 10/27/2019[facility] Duration of test: 20-60 [id number] 00:00:00Date and Time of Procedure: 10/27/2019, 15:35:31-16:01:22 REPORT TECHNICAL SUMMARY: The EEG was recorded digitally. Electrodes were applied using the International 10/20 System of electrode placement.Eye movements and rhythm strip ECG were monitored on separate channels of the ongoing EEG recording. The occipital dominant rhythm consists of moderate amplitude 7.5-8 Hz activity. More anteriorly, similar as well as faster frequencies are present, including low amplitude 18-22 Hz activities in theanterior leads. There is an excessive amount of 4-8 Hz activity diffusely. Drowsiness and sleep do not reveal additional abnormalities. IMPRESSION: This EEG is abnormal due to mild diffuse slowing, which can be suggestive of a mild diffuse disturbance in cerebral function but can also be related tosedating medications. No electrographic seizures or epileptiform abnormalities are seen. The absence of epileptiform abnormalities in one EEG does not necessarily rule out a diagnosis of epilepsy or the potential for epileptic seizures, however. The diagnostic sensitivity can be enhanced by a repeat study, which would be appropriate if clinically indicated. Christiano Kirby Rai, MD Date [facility]: [facility] [id number] 02:51:00* Test Item Value Reference Range Interpretation Comme nts SARS-CoV-2 PCR (test code = 77774-1) Positive Not Detected A BEVERLY (test code = BEVERLY) Hologic Aptima SARS-CoV-2 Assay is a nucleic acid amplification test intended for the qualitative detection of RNA from SARS-CoV-2 from nasopharyngeal (RECYCLING DIRECTOR) specimens. ?It is used under Emergency Use Authorization (EUA) by FDA. A positive result is indicative of the presence of SARS-CoV-2 RNA. ?Clinical correlation with patient history and other diagnostic information is necessary to determine patient infection status. A negative (Not Detected) result does not preclude SARS-CoV-2 infection. ?Clinical correlation with patient history and other diagnostic information should be used in patient management decisions. Invalid: Unable to generate a valid test result on this specimen. ?Please submit a new specimen for repeat testing if clinically indicated. Lab Interpretation (test code = 37149-7) [facility] [id number] 02:51:00* Test Item Value Reference Range Interpretation Comme nts SARS-CoV-2 PCR (test code = 44560-9) Positive Not Detected A BEVERLY (test code = BEVERLY) Hologic Aptima SARS-CoV-2 Assay is a nucleic acid amplification test intended for the qualitative detection of RNA from SARS-CoV-2 from nasopharyngeal (RECYCLING DIRECTOR) specimens. ?It is used under Emergency Use Authorization (EUA) by FDA. A positive result is indicative of the presence of SARS-CoV-2 RNA. ?Clinical correlation with patient history and other diagnostic information is necessary to determine patient infection status. A negative (Not Detected) result does not preclude SARS-CoV-2 infection. ?Clinical correlation with patient history and other diagnostic information should be used in patient management decisions. Invalid: Unable to generate a valid test result on this specimen. ?Please submit a new specimen for repeat testing if clinically indicated. Lab Interpretation (test code = 43611-5) [facility] [id number] 02:51:00* Test Item Value Reference Range Interpretation Comme nts SARS-CoV-2 PCR (test code = 25108-2) Positive Not Detected A BEVERLY (test code = BEVERLY) Hologic Aptima SARS-CoV-2 Assay is a nucleic acid amplification test intended for the qualitative detection of RNA from SARS-CoV-2 from nasopharyngeal (RECYCLING DIRECTOR) specimens. ?It is used under Emergency Use Authorization (EUA) by FDA. A positive result is indicative of the presence of SARS-CoV-2 RNA. ?Clinical correlation with patient history and other diagnostic information is necessary to determine patient infection status. A negative (Not Detected) result does not preclude SARS-CoV-2 infection. ?Clinical correlation with patient history and other diagnostic information should be used in patient management decisions. Invalid: Unable to generate a valid test result on this specimen. ?Please submit a new specimen for repeat testing if clinically indicated. Lab Interpretation (test code = 34697-0) [facility] [id number] 02:51:00* Test Item Value Reference Range Interpretation Comme nts SARS-CoV-2 PCR (test code = 40318-3) Positive Not Detected A BEVERLY (test code = BEVERLY) Hologic Aptima SARS-CoV-2 Assay is a nucleic acid amplification test intended for the qualitative detection of RNA from SARS-CoV-2 from nasopharyngeal (RECYCLING DIRECTOR) specimens. ?It is used under Emergency Use Authorization (EUA) by FDA. A positive result is indicative of the presence of SARS-CoV-2 RNA. ?Clinical correlation with patient history and other diagnostic information is necessary to determine patient infection status. A negative (Not Detected) result does not preclude SARS-CoV-2 infection. ?Clinical correlation with patient history and other diagnostic information should be used in patient management decisions. Invalid: Unable to generate a valid test result on this specimen. ?Please submit a new specimen for repeat testing if clinically indicated. Lab Interpretation (test code = 99205-2) [facility] [id number] 02:51:00* Test Item Value Reference Range Interpretation Comme nts SARS-CoV-2 PCR (test code = 16229-0) Positive Not Detected A BEVERLY (test code = BEVERLY) Hologic Aptima SARS-CoV-2 Assay is a nucleic acid amplification test intended for the qualitative detection of RNA from SARS-CoV-2 from nasopharyngeal (RECYCLING DIRECTOR) specimens. ?It is used under Emergency Use Authorization (EUA) by FDA. A positive result is indicative of the presence of SARS-CoV-2 RNA. ?Clinical correlation with patient history and other diagnostic information is necessary to determine patient infection status. A negative (Not Detected) result does not preclude SARS-CoV-2 infection. ?Clinical correlation with patient history and other diagnostic information should be used in patient management decisions. Invalid: Unable to generate a valid test result on this specimen. ?Please submit a new specimen for repeat testing if clinically indicated. Lab Interpretation (test code = 62633-1) [facility] [id number] 02:51:00* Test Item Value Reference Range Interpretation Comme nts SARS-CoV-2 PCR (test code = 08957-1) Positive Not Detected A BEVERLY (test code = BEVERLY) Hologic Aptima SARS-CoV-2 Assay is a nucleic acid amplification test intended for the qualitative detection of RNA from SARS-CoV-2 from nasopharyngeal (RECYCLING DIRECTOR) specimens. ?It is used under Emergency Use Authorization (EUA) by FDA. A positive result is indicative of the presence of SARS-CoV-2 RNA. ?Clinical correlation with patient history and other diagnostic information is necessary to determine patient infection status. A negative (Not Detected) result does not preclude SARS-CoV-2 infection. ?Clinical correlation with patient history and other diagnostic information should be used in patient management decisions. Invalid: Unable to generate a valid test result on this specimen. ?Please submit a new specimen for repeat testing if clinically indicated. Lab Interpretation (test code = 60413-9) [facility] [id number] 02:51:00* Test Item Value Reference Range Interpretation Comme nts SARS-CoV-2 PCR (test code = 78238-5) Positive Not Detected A BEVERLY (test code = BEVERLY) Hologic Aptima SARS-CoV-2 Assay is a nucleic acid amplification test intended for the qualitative detection of RNA from SARS-CoV-2 from nasopharyngeal (RECYCLING DIRECTOR) specimens. ?It is used under Emergency Use Authorization (EUA) by FDA. A positive result is indicative of the presence of SARS-CoV-2 RNA. ?Clinical correlation with patient history and other diagnostic information is necessary to determine patient infection status. A negative (Not Detected) result does not preclude SARS-CoV-2 infection. ?Clinical correlation with patient history and other diagnostic information should be used in patient management decisions. Invalid: Unable to generate a valid test result on this specimen. ?Please submit a new specimen for repeat testing if clinically indicated. Lab Interpretation (test code = 36401-2) [facility] [id number] 02:51:00* Test Item Value Reference Range Interpretation Comme nts SARS-CoV-2 PCR (test code = 70387-0) Positive Not Detected A BEVERLY (test code = BEVERLY) Hologic Aptima SARS-CoV-2 Assay is a nucleic acid amplification test intended for the qualitative detection of RNA from SARS-CoV-2 from nasopharyngeal (RECYCLING DIRECTOR) specimens. ?It is used under Emergency Use Authorization (EUA) by FDA. A positive result is indicative of the presence of SARS-CoV-2 RNA. ?Clinical correlation with patient history and other diagnostic information is necessary to determine patient infection status. A negative (Not Detected) result does not preclude SARS-CoV-2 infection. ?Clinical correlation with patient history and other diagnostic information should be used in patient management decisions. Invalid: Unable to generate a valid test result on this specimen. ?Please submit a new specimen for repeat testing if clinically indicated. Lab Interpretation (test code = 71611-4) [facility] [id number] 02:51:00* Test Item Value Reference Range Interpretation Comme nts SARS-CoV-2 PCR (test code = 76967-0) Positive Not Detected A BEVERLY (test code = BEVERLY) Hologic Aptima SARS-CoV-2 Assay is a nucleic acid amplification test intended for the qualitative detection of RNA from SARS-CoV-2 from nasopharyngeal (RECYCLING DIRECTOR) specimens. ?It is used under Emergency Use Authorization (EUA) by FDA. A positive result is indicative of the presence of SARS-CoV-2 RNA. ?Clinical correlation with patient history and other diagnostic information is necessary to determine patient infection status. A negative (Not Detected) result does not preclude SARS-CoV-2 infection. ?Clinical correlation with patient history and other diagnostic information should be used in patient management decisions. Invalid: Unable to generate a valid test result on this specimen. ?Please submit a new specimen for repeat testing if clinically indicated. Lab Interpretation (test code = 52773-3) [facility] [id number] 02:51:00* Test Item Value Reference Range Interpretation Comme nts SARS-CoV-2 PCR (test code = 39084-9) Positive Not Detected A BEVERLY (test code = BEVERLY) Hologic Aptima SARS-CoV-2 Assay is a nucleic acid amplification test intended for the qualitative detection of RNA from SARS-CoV-2 from nasopharyngeal (RECYCLING DIRECTOR) specimens. ?It is used under Emergency Use Authorization (EUA) by FDA. A positive result is indicative of the presence of SARS-CoV-2 RNA. ?Clinical correlation with patient history and other diagnostic information is necessary to determine patient infection status. A negative (Not Detected) result does not preclude SARS-CoV-2 infection. ?Clinical correlation with patient history and other diagnostic information should be used in patient management decisions. Invalid: Unable to generate a valid test result on this specimen. ?Please submit a new specimen for repeat testing if clinically indicated. Lab Interpretation (test code = 87166-8) [facility] [id number] 02:51:00* Test Item Value Reference Range Interpretation Comme nts SARS-CoV-2 PCR (test code = 09232-6) Positive Not Detected A BEVERLY (test code = BEVERLY) Hologic Aptima SARS-CoV-2 Assay is a nucleic acid amplification test intended for the qualitative detection of RNA from SARS-CoV-2 from nasopharyngeal (RECYCLING DIRECTOR) specimens. ?It is used under Emergency Use Authorization (EUA) by FDA. A positive result is indicative of the presence of SARS-CoV-2 RNA. ?Clinical correlation with patient history and other diagnostic information is necessary to determine patient infection status. A negative (Not Detected) result does not preclude SARS-CoV-2 infection. ?Clinical correlation with patient history and other diagnostic information should be used in patient management decisions. Invalid: Unable to generate a valid test result on this specimen. ?Please submit a new specimen for repeat testing if clinically indicated. Lab Interpretation (test code = 20439-3) [facility] [id number] 02:51:00* Test Item Value Reference Range Interpretation Comme nts SARS-CoV-2 PCR (test code = 59596-0) Positive Not Detected A BEVERLY (test code = BEVERLY) Hologic Aptima SARS-CoV-2 Assay is a nucleic acid amplification test intended for the qualitative detection of RNA from SARS-CoV-2 from nasopharyngeal (RECYCLING DIRECTOR) specimens. ?It is used under Emergency Use Authorization (EUA) by FDA. A positive result is indicative of the presence of SARS-CoV-2 RNA. ?Clinical correlation with patient history and other diagnostic information is necessary to determine patient infection status. A negative (Not Detected) result does not preclude SARS-CoV-2 infection. ?Clinical correlation with patient history and other diagnostic information should be used in patient management decisions. Invalid: Unable to generate a valid test result on this specimen. ?Please submit a new specimen for repeat testing if clinically indicated. Lab Interpretation (test code = 25035-1) [facility] [id number] 02:51:00* Test Item Value Reference Range Interpretation Comme nts SARS-CoV-2 PCR (test code = 22660-6) Positive Not Detected A BEVERLY (test code = BEVERLY) Hologic Aptima SARS-CoV-2 Assay is a nucleic acid amplification test intended for the qualitative detection of RNA from SARS-CoV-2 from nasopharyngeal (RECYCLING DIRECTOR) specimens. ?It is used under Emergency Use Authorization (EUA) by FDA. A positive result is indicative of the presence of SARS-CoV-2 RNA. ?Clinical correlation with patient history and other diagnostic information is necessary to determine patient infection status. A negative (Not Detected) result does not preclude SARS-CoV-2 infection. ?Clinical correlation with patient history and other diagnostic information should be used in patient management decisions. Invalid: Unable to generate a valid test result on this specimen. ?Please submit a new specimen for repeat testing if clinically indicated. Lab Interpretation (test code = 89581-2) [facility] [id number] 02:51:00* Test Item Value Reference Range Interpretation Comme nts SARS-CoV-2 PCR (test code = 82808-7) Positive Not Detected A BEVERLY (test code = BEVERLY) Hologic Aptima SARS-CoV-2 Assay is a nucleic acid amplification test intended for the qualitative detection of RNA from SARS-CoV-2 from nasopharyngeal (RECYCLING DIRECTOR) specimens. ?It is used under Emergency Use Authorization (EUA) by FDA. A positive result is indicative of the presence of SARS-CoV-2 RNA. ?Clinical correlation with patient history and other diagnostic information is necessary to determine patient infection status. A negative (Not Detected) result does not preclude SARS-CoV-2 infection. ?Clinical correlation with patient history and other diagnostic information should be used in patient management decisions. Invalid: Unable to generate a valid test result on this specimen. ?Please submit a new specimen for repeat testing if clinically indicated. Lab Interpretation (test code = 23367-3) [facility] [id number] 02:51:00* Test Item Value Reference Range Interpretation Comme nts SARS-CoV-2 PCR (test code = 44261-5) Positive Not Detected A BEVERLY (test code = BEVERLY) Hologic Aptima SARS-CoV-2 Assay is a nucleic acid amplification test intended for the qualitative detection of RNA from SARS-CoV-2 from nasopharyngeal (RECYCLING DIRECTOR) specimens. ?It is used under Emergency Use Authorization (EUA) by FDA. A positive result is indicative of the presence of SARS-CoV-2 RNA. ?Clinical correlation with patient history and other diagnostic information is necessary to determine patient infection status. A negative (Not Detected) result does not preclude SARS-CoV-2 infection. ?Clinical correlation with patient history and other diagnostic information should be used in patient management decisions. Invalid: Unable to generate a valid test result on this specimen. ?Please submit a new specimen for repeat testing if clinically indicated. Lab Interpretation (test code = 50629-7) [facility] [id number] 02:51:00* Test Item Value Reference Range Interpretation Comme nts SARS-CoV-2 PCR (test code = 71851-2) Positive Not Detected A BEVERLY (test code = BEVERLY) Hologic Aptima SARS-CoV-2 Assay is a nucleic acid amplification test intended for the qualitative detection of RNA from SARS-CoV-2 from nasopharyngeal (RECYCLING DIRECTOR) specimens. ?It is used under Emergency Use Authorization (EUA) by FDA. A positive result is indicative of the presence of SARS-CoV-2 RNA. ?Clinical correlation with patient history and other diagnostic information is necessary to determine patient infection status. A negative (Not Detected) result does not preclude SARS-CoV-2 infection. ?Clinical correlation with patient history and other diagnostic information should be used in patient management decisions. Invalid: Unable to generate a valid test result on this specimen. ?Please submit a new specimen for repeat testing if clinically indicated. Lab Interpretation (test code = 62393-8) [facility] [id number] 02:51:00* Test Item Value Reference Range Interpretation Comme nts SARS-CoV-2 PCR (test code = 59252-8) Positive Not Detected A BEVERLY (test code = BEVERLY) Hologic Aptima SARS-CoV-2 Assay is a nucleic acid amplification test intended for the qualitative detection of RNA from SARS-CoV-2 from nasopharyngeal (RECYCLING DIRECTOR) specimens. ?It is used under Emergency Use Authorization (EUA) by FDA. A positive result is indicative of the presence of SARS-CoV-2 RNA. ?Clinical correlation with patient history and other diagnostic information is necessary to determine patient infection status. A negative (Not Detected) result does not preclude SARS-CoV-2 infection. ?Clinical correlation with patient history and other diagnostic information should be used in patient management decisions. Invalid: Unable to generate a valid test result on this specimen. ?Please submit a new specimen for repeat testing if clinically indicated. Lab Interpretation (test code = 41265-4) [facility] [id number] 02:51:00* Test Item Value Reference Range Interpretation Comme nts SARS-CoV-2 PCR (test code = 65919-3) Positive Not Detected A BEVERLY (test code = BEVERLY) Hologic Aptima SARS-CoV-2 Assay is a nucleic acid amplification test intended for the qualitative detection of RNA from SARS-CoV-2 from nasopharyngeal (RECYCLING DIRECTOR) specimens. ?It is used under Emergency Use Authorization (EUA) by FDA. A positive result is indicative of the presence of SARS-CoV-2 RNA. ?Clinical correlation with patient history and other diagnostic information is necessary to determine patient infection status. A negative (Not Detected) result does not preclude SARS-CoV-2 infection. ?Clinical correlation with patient history and other diagnostic information should be used in patient management decisions. Invalid: Unable to generate a valid test result on this specimen. ?Please submit a new specimen for repeat testing if clinically indicated. Lab Interpretation (test code = 26818-9) [facility] [id number] 02:51:00* Test Item Value Reference Range Interpretation Comme nts SARS-CoV-2 PCR (test code = 18861-1) Positive Not Detected A BEVERLY (test code = BEVERLY) [employer] SARS-CoV-2 Assay is a nucleic acid amplification test intended for the qualitative detection of RNA from SARS-CoV-2 from nasopharyngeal (RECYCLING DIRECTOR) specimens. ?It is used under Emergency Use Authorization (EUA) by FDA. A positive result is indicative of the presence of SARS-CoV-2 RNA. ?Clinical correlation with patient history and other diagnostic information is necessary to determine patient infection status. A negative (Not Detected) result does not preclude SARS-CoV-2 infection. ?Clinical correlation with patient history and other diagnostic information should be used in patient management decisions. Invalid: Unable to generate a valid test result on this specimen. ?Please submit a new specimen for repeat testing if clinically indicated. Lab Interpretation (test code = 71182-9) [facility]OLIC PAN[facility] ([id number])2019-08-02 17:48:00* Test Item Value Reference Range Interpretation Comme nts NA (test code = 5849764602) 144 mmol/L 135-145 K (test code = 5190630747) 5.4 mmol/L 3.5-5 H CL (test code = 6163699705) 107 mmol/L 98-108 CO2 TOTAL (test code = 6350829286) 29 mmol/L 23-31 AGAP (test code = 0100835190) 2-16 BUN (test code = 6027964936) 8 mg/dL 7-23 GLUCOSE (test code = 7223178679) 109 mg/dL 70-110 CREATININE (test code = 4773425612) 0.73 mg/dL 0.6-1.25 TOTAL BILI (test code = 7307208219) 0.4 mg/dL 0.1-1.1 CALCIUM (test code = 9998871661) 9.9 mg/dL 8.6-10.6 T PROTEIN (test code = 3636126893) 7.4 g/dL 6.3-8.2 ALBUMIN (test code = 9925910787) 4.4 g/dL 3.5-5 ALK PHOS (test code = 7363363039) 60 U/L 34-122 ALTv (test code = 1742-6) 22 U/L 5-50 AST(SGOT) (test code = 1577302691) 19 U/L 13-40 eGFR Calculation (Non-) (test code = 9028067565) mL/min/1.73m2 eGFR Calculation () (test code = 3326202311) mL/min/1.73m2 BEVERLY (test code = BEVERLY) Association of Glomerular Filtration Rate (GFR) and Staging of Kidney Disease* + --+ --+ ------+| GFR (mL/min/1.73 m2) ?| With Kidney Damage ?| ?Without Kidney Damage+ --------+ --------+ +| ?>90 ?| ?Stage one ?| ? Normal ?+ ---+ ---+ -------+| ?60-89 ?| ?Stage two ?| ? Decreased GFR ? + --+ --+ ------+| ?30-59 ?| ?Stage three ?| ? Stage three ? + --+ --+ ------+| ?15-29 ?| ?Stage four ? | ? Stage four ?+ ---+ ---+ -------+| ?<15 (or dialysis) ? ?| ?Stage five ? | ? Stage five ?+ ---+ ---+ -------+ *Each stage assumes the associated GFR level has been in effect for at least three months. ?Stages 1 to 5, with or without kidney disease, indicate chronic kidney disease. Notes: Determination of stages one and two (with eGFR >59mL/min/1.73 m2) requires estimation of kidney damage for at least three months as defined by structural or functional abnormalities of the kidney, manifested by either:Pathological abnormalities or Markers of kidney damage (including abnormalities in the composition of the blood or urine or abnormalities in imaging tests). Lab Interpretation (test code = 57382-8) [facility] ([id number])(TOTAL CHOLESTEROL, TRIGLYCERIDES, HDL)2019-08-02 17:48:00* Test Item Value Reference Range Interpretation Comme nts CHOL (test code = 7677733927) 183 mg/dL 120-200 HDL (test code = 4402791743) 33 mg/dL >40 L HDLC RATIO (test code = 0029955837) See_Comment H [[employer]ated [employer]] The system which generated this result transmitted reference range: <=5.0. The reference range was not used to interpret this result as normal/abnormal. TRIG (test code = 8588962819) 129 mg/dL 30-170 LDL CHOL (test code = 34004-3) 124 mg/dL See_Comment [[employer]ated [employer]] The system which generated this result transmitted reference range: <=160. The reference range was not used to interpret this result as normal/abnormal. VLDL (test code = 8232306846) 26 mg/dL 5-60 Lab Interpretation (test code = 05931-9) Abnormal [facility]. METABOLIC PANEL ([id number])2019-08-02 17:48:00* Test Item Value Reference Range Interpretation Comme nts NA (test code = 9559376380) 144 mmol/L 135-145 K (test code = 6826456113) 5.4 mmol/L 3.5-5 H CL (test code = 8577780127) 107 mmol/L 98-108 CO2 TOTAL (test code = 5780302262) 29 mmol/L 23-31 AGAP (test code = 5169187844) 2-16 BUN (test code = 6973245542) 8 mg/dL 7-23 GLUCOSE (test code = 2249505368) 109 mg/dL 70-110 CREATININE (test code = 5306112417) 0.73 mg/dL 0.6-1.25 TOTAL BILI (test code = 1708371189) 0.4 mg/dL 0.1-1.1 CALCIUM (test code = 6805784537) 9.9 mg/dL 8.6-10.6 T PROTEIN (test code = 0162834661) 7.4 g/dL 6.3-8.2 ALBUMIN (test code = 7613914730) 4.4 g/dL 3.5-5 ALK PHOS (test code = 0663706132) 60 U/L 34-122 ALTv (test code = 1742-6) 22 U/L 5-50 AST(SGOT) (test code = 0636339639) 19 U/L 13-40 eGFR Calculation (Non-) (test code = 2858861328) mL/min/1.73m2 eGFR Calculation () (test code = 4537528053) mL/min/1.73m2 BEVERLY (test code = BEVERLY) Association of Glomerular Filtration Rate (GFR) and Staging of Kidney Disease* + --+ --+ ------+| GFR (mL/min/1.73 m2) ?| With Kidney Damage ?| ?Without Kidney Damage+ --------+ --------+ +| ?>90 ?| ?Stage one ?| ? Normal ?+ ---+ ---+ -------+| ?60-89 ?| ?Stage two ?| ? Decreased GFR ? + --+ --+ ------+| ?30-59 ?| ?Stage three ?| ? Stage three ? + --+ --+ ------+| ?15-29 ?| ?Stage four ? | ? Stage four ?+ ---+ ---+ -------+| ?<15 (or dialysis) ? ?| ?Stage five ? | ? Stage five ?+ ---+ ---+ -------+ *Each stage assumes the associated GFR level has been in effect for at least three months. ?Stages 1 to 5, with or without kidney disease, indicate chronic kidney disease. Notes: Determination of stages one and two (with eGFR >59mL/min/1.73 m2) requires estimation of kidney damage for at least three months as defined by structural or functional abnormalities of the kidney, manifested by either:Pathological abnormalities or Markers of kidney damage (including abnormalities in the composition of the blood or urine or abnormalities in imaging tests). Lab Interpretation (test code = 37775-4) [facility]normal [id number][facility]TOTAL CHOLESTEROL, TRIGLYCERIDES, HDL)2019-08-02 17:48:00* Test Item Value Reference Range Interpretation Comme nts CHOL (test code = 8323791457) 183 mg/dL 120-200 HDL (test code = 8492110677) 33 mg/dL >40 L HDLC RATIO (test code = 2500765067) See_Comment H [[employer]] The system which generated this result transmitted reference range: <=5.0. The reference range was not used to interpret this result as normal/abnormal. TRIG (test code = 6883385252) 129 mg/dL 30-170 LDL CHOL (test code = 71493-4) 124 mg/dL See_Comment [[employer]ated [employer]] The system which generated this result transmitted reference range: <=160. The reference range was not used to interpret this result as normal/abnormal. VLDL (test code = 5991427881) 26 mg/dL 5-60 Lab Interpretation (test code = 27373-5) [facility] ([id number][facility]2019-08-02 17:48:00* Test Item Value Reference Range Interpretation Comme nts NA (test code = 4127102415) 144 mmol/L 135-145 K (test code = 9523227295) 5.4 mmol/L 3.5-5 H CL (test code = 5219918689) 107 mmol/L 98-108 CO2 TOTAL (test code = 1602175111) 29 mmol/L 23-31 AGAP (test code = 6874905852) 2-16 BUN (test code = 2434970271) 8 mg/dL 7-23 GLUCOSE (test code = 5958038177) 109 mg/dL 70-110 CREATININE (test code = 0489691017) 0.73 mg/dL 0.6-1.25 TOTAL BILI (test code = 9126848906) 0.4 mg/dL 0.1-1.1 CALCIUM (test code = 6162709816) 9.9 mg/dL 8.6-10.6 T PROTEIN (test code = 2137222145) 7.4 g/dL 6.3-8.2 ALBUMIN (test code = 3663678836) 4.4 g/dL 3.5-5 ALK PHOS (test code = 2196481150) 60 U/L 34-122 ALTv (test code = 1742-6) 22 U/L 5-50 AST(SGOT) (test code = 7346148107) 19 U/L 13-40 eGFR Calculation (Non-) (test code = 6284013227) mL/min/1.73m2 eGFR Calculation () (test code = 7610770749) mL/min/1.73m2 BEVERLY (test code = BEVERLY) Association of Glomerular Filtration Rate (GFR) and Staging of Kidney Disease* + --+ --+ ------+| GFR (mL/min/1.73 m2) ?| With Kidney Damage ?| ?Without Kidney Damage+ --------+ --------+ +| ?>90 ?| ?Stage one ?| ? Normal ?+ ---+ ---+ -------+| ?60-89 ?| ?Stage two ?| ? Decreased GFR ? + --+ --+ ------+| ?30-59 ?| ?Stage three ?| ? Stage three ? + --+ --+ ------+| ?15-29 ?| ?Stage four ? | ? Stage four ?+ ---+ ---+ -------+| ?<15 (or dialysis) ? ?| ?Stage five ? | ? Stage five ?+ ---+ ---+ -------+ *Each stage assumes the associated GFR level has been in effect for at least three months. ?Stages 1 to 5, with or without kidney disease, indicate chronic kidney disease. Notes: Determination of stages one and two (with eGFR >59mL/min/1.73 m2) requires estimation of kidney damage for at least three months as defined by structural or functional abnormalities of the kidney, manifested by either:Pathological abnormalities or Markers of kidney damage (including abnormalities in the composition of the blood or urine or abnormalities in imaging tests). Lab Interpretation (test code = 40527-3) [facility][id number][facility]TOTAL CHOLESTEROL, TRIGLYCERIDES, HDL)2019-08-02 17:48:00* Test Item Value Reference Range Interpretation Comme nts CHOL (test code = 5411839521) 183 mg/dL 120-200 HDL (test code = 6328176432) 33 mg/dL >40 L HDLC RATIO (test code = 5938780341) See_Comment H [[employer]] The system which generated this result transmitted reference range: <=5.0. The reference range was not used to interpret this result as normal/abnormal. TRIG (test code = 1320752083) 129 mg/dL 30-170 LDL CHOL (test code = 33894-4) 124 mg/dL See_Comment [[employer]] The system which generated this result transmitted reference range: <=160. The reference range was not used to interpret this result as normal/abnormal. VLDL (test code = 2969602630) 26 mg/dL 5-60 Lab Interpretation (test code = 83231-8) Abnormal [facility]. METABOLIC PANEL ([id number])2019-08-02 17:48:00* Test Item Value Reference Range Interpretation Comme nts NA (test code = 7901833058) 144 mmol/L 135-145 K (test code = 9979460550) 5.4 mmol/L 3.5-5 H CL (test code = 7680276577) 107 mmol/L 98-108 CO2 TOTAL (test code = 0952039243) 29 mmol/L 23-31 AGAP (test code = 7781294030) 2-16 BUN (test code = 7592763896) 8 mg/dL 7-23 GLUCOSE (test code = 7093775779) 109 mg/dL 70-110 CREATININE (test code = 9451367329) 0.73 mg/dL 0.6-1.25 TOTAL BILI (test code = 1469231913) 0.4 mg/dL 0.1-1.1 CALCIUM (test code = 0481521678) 9.9 mg/dL 8.6-10.6 T PROTEIN (test code = 7279231830) 7.4 g/dL 6.3-8.2 ALBUMIN (test code = 7123221841) 4.4 g/dL 3.5-5 ALK PHOS (test code = 9062688122) 60 U/L 34-122 ALTv (test code = 1742-6) 22 U/L 5-50 AST(SGOT) (test code = 0874540553) 19 U/L 13-40 eGFR Calculation (Non-) (test code = 3445828953) mL/min/1.73m2 eGFR Calculation () (test code = 2321238572) mL/min/1.73m2 BEVERLY (test code = BEVERLY) Association of Glomerular Filtration Rate (GFR) and Staging of Kidney Disease* + --+ --+ ------+| GFR (mL/min/1.73 m2) ?| With Kidney Damage ?| ?Without Kidney Damage+ --------+ --------+ +| ?>90 ?| ?Stage one ?| ? Normal ?+ ---+ ---+ -------+| ?60-89 ?| ?Stage two ?| ? Decreased GFR ? + --+ --+ ------+| ?30-59 ?| ?Stage three ?| ? Stage three ? + --+ --+ ------+| ?15-29 ?| ?Stage four ? | ? Stage four ?+ ---+ ---+ -------+| ?<15 (or dialysis) ? ?| ?Stage five ? | ? Stage five ?+ ---+ ---+ -------+ *Each stage assumes the associated GFR level has been in effect for at least three months. ?Stages 1 to 5, with or without kidney disease, indicate chronic kidney disease. Notes: Determination of stages one and two (with eGFR >59mL/min/1.73 m2) requires estimation of kidney damage for at least three months as defined by structural or functional abnormalities of the kidney, manifested by either:Pathological abnormalities or Markers of kidney damage (including abnormalities in the composition of the blood or urine or abnormalities in imaging tests). Lab Interpretation (test code = 16705-3) [facility] ([id number])(TOTAL CHOLESTEROL, TRIGLYCERIDES, HDL)2019-08-02 17:48:00* Test Item Value Reference Range Interpretation Comme nts CHOL (test code = 5070776157) 183 mg/dL 120-200 HDL (test code = 1441708979) 33 mg/dL >40 L HDLC RATIO (test code = 6465190029) See_Comment H [[employer]] The system which generated this result transmitted reference range: <=5.0. The reference range was not used to interpret this result as normal/abnormal. TRIG (test code = 7554066522) 129 mg/dL 30-170 LDL CHOL (test code = 99368-3) 124 mg/dL See_Comment [[employer]] The system which generated this result transmitted reference range: <=160. The reference range was not used to interpret this result as normal/abnormal. VLDL (test code = 0143633824) 26 mg/dL 5-60 Lab Interpretation (test code = 22593-4) [facility] ([id number])2019-08-02 17:48:00* Test Item Value Reference Range Interpretation Comme nts NA (test code = 3496298469) 144 mmol/L 135-145 K (test code = 7252921037) 5.4 mmol/L 3.5-5 H CL (test code = 0373281686) 107 mmol/L 98-108 CO2 TOTAL (test code = 0219358351) 29 mmol/L 23-31 AGAP (test code = 6905695376) 2-16 BUN (test code = 8149608038) 8 mg/dL 7-23 GLUCOSE (test code = 6076215273) 109 mg/dL 70-110 CREATININE (test code = 8389433123) 0.73 mg/dL 0.6-1.25 TOTAL BILI (test code = 1305348053) 0.4 mg/dL 0.1-1.1 CALCIUM (test code = 4564763795) 9.9 mg/dL 8.6-10.6 T PROTEIN (test code = 8124136982) 7.4 g/dL 6.3-8.2 ALBUMIN (test code = 8108646787) 4.4 g/dL 3.5-5 ALK PHOS (test code = 0238901693) 60 U/L 34-122 ALTv (test code = 1742-6) 22 U/L 5-50 AST(SGOT) (test code = 6087305701) 19 U/L 13-40 eGFR Calculation (Non-) (test code = 6491437794) mL/min/1.73m2 eGFR Calculation () (test code = 0079529198) mL/min/1.73m2 BEVERLY (test code = BEVERLY) Association of Glomerular Filtration Rate (GFR) and Staging of Kidney Disease* + --+ --+ ------+| GFR (mL/min/1.73 m2) ?| With Kidney Damage ?| ?Without Kidney Damage+ --------+ --------+ +| ?>90 ?| ?Stage one ?| ? Normal ?+ ---+ ---+ -------+| ?60-89 ?| ?Stage two ?| ? Decreased GFR ? + --+ --+ ------+| ?30-59 ?| ?Stage three ?| ? Stage three ? + --+ --+ ------+| ?15-29 ?| ?Stage four ? | ? Stage four ?+ ---+ ---+ -------+| ?<15 (or dialysis) ? ?| ?Stage five ? | ? Stage five ?+ ---+ ---+ -------+ *Each stage assumes the associated GFR level has been in effect for at least three months. ?Stages 1 to 5, with or without kidney disease, indicate chronic kidney disease. Notes: Determination of stages one and two (with eGFR >59mL/min/1.73 m2) requires estimation of kidney damage for at least three months as defined by structural or functional abnormalities of the kidney, manifested by either:Pathological abnormalities or Markers of kidney damage (including abnormalities in the composition of the blood or urine or abnormalities in imaging tests). Lab Interpretation (test code = 62318-3) [facility] ([id number])(TOTAL CHOLESTEROL, TRIGLYCERIDES, HDL)2019-08-02 17:48:00* Test Item Value Reference Range Interpretation Comme nts CHOL (test code = 5525615059) 183 mg/dL 120-200 HDL (test code = 9214403231) 33 mg/dL >40 L HDLC RATIO (test code = 0643299661) See_Comment H [[employer]] The system which generated this result transmitted reference range: <=5.0. The reference range was not used to interpret this result as normal/abnormal. TRIG (test code = 5626323963) 129 mg/dL 30-170 LDL CHOL (test code = 36707-4) 124 mg/dL See_Comment [[employer]] The system which generated this result transmitted reference range: <=160. The reference range was not used to interpret this result as normal/abnormal. VLDL (test code = 3564799819) 26 mg/dL 5-60 Lab Interpretation (test code = 99446-1) [facility] (07828)2019-08-02 17:48:00* Test Item Value Reference Range Interpretation Comme nts NA (test code = 1063730763) 144 mmol/L 135-145 K (test code = 2457755721) 5.4 mmol/L 3.5-5 H CL (test code = 3435837880) 107 mmol/L 98-108 CO2 TOTAL (test code = 8512500631) 29 mmol/L 23-31 AGAP (test code = 4900670284) 2-16 BUN (test code = 2068377607) 8 mg/dL 7-23 GLUCOSE (test code = 9476610461) 109 mg/dL 70-110 CREATININE (test code = 6009456114) 0.73 mg/dL 0.6-1.25 TOTAL BILI (test code = 3337877598) 0.4 mg/dL 0.1-1.1 CALCIUM (test code = 1712973433) 9.9 mg/dL 8.6-10.6 T PROTEIN (test code = 0167109459) 7.4 g/dL 6.3-8.2 ALBUMIN (test code = 2262239659) 4.4 g/dL 3.5-5 ALK PHOS (test code = 0046394696) 60 U/L 34-122 ALTv (test code = 1742-6) 22 U/L 5-50 AST(SGOT) (test code = 5396047025) 19 U/L 13-40 eGFR Calculation (Non-) (test code = 6033623389) mL/min/1.73m2 eGFR Calculation () (test code = 0052670224) mL/min/1.73m2 BEVERLY (test code = BEVERLY) Association of Glomerular Filtration Rate (GFR) and Staging of Kidney Disease* + --+ --+ ------+| GFR (mL/min/1.73 m2) ?| With Kidney Damage ?| ?Without Kidney Damage+ --------+ --------+ +| ?>90 ?| ?Stage one ?| ? Normal ?+ ---+ ---+ -------+| ?60-89 ?| ?Stage two ?| ? Decreased GFR ? + --+ --+ ------+| ?30-59 ?| ?Stage three ?| ? Stage three ? + --+ --+ ------+| ?15-29 ?| ?Stage four ? | ? Stage four ?+ ---+ ---+ -------+| ?<15 (or dialysis) ? ?| ?Stage five ? | ? Stage five ?+ ---+ ---+ -------+ *Each stage assumes the associated GFR level has been in effect for at least three months. ?Stages 1 to 5, with or without kidney disease, indicate chronic kidney disease. Notes: Determination of stages one and two (with eGFR >59mL/min/1.73 m2) requires estimation of kidney damage for at least three months as defined by structural or functional abnormalities of the kidney, manifested by either:Pathological abnormalities or Markers of kidney damage (including abnormalities in the composition of the blood or urine or abnormalities in imaging tests). Lab Interpretation (test code = 29091-0) [facility] ([id number])(TOTAL CHOLESTEROL, TRIGLYCERIDES, HDL)2019-08-02 17:48:00* Test Item Value Reference Range Interpretation Comme nts CHOL (test code = 3918818415) 183 mg/dL 120-200 HDL (test code = 6230260886) 33 mg/dL >40 L HDLC RATIO (test code = 5567389568) See_Comment H [[employer]] The system which generated this result transmitted reference range: <=5.0. The reference range was not used to interpret this result as normal/abnormal. TRIG (test code = 6078800951) 129 mg/dL 30-170 LDL CHOL (test code = 63651-0) 124 mg/dL See_Comment [[employer]] The system which generated this result transmitted reference range: <=160. The reference range was not used to interpret this result as normal/abnormal. VLDL (test code = 6799565301) 26 mg/dL 5-60 Lab Interpretation (test code = 71163-8) [facility] (A1C)2019-08-02 17:33:00* Test Item Value Reference Range Interpretation Comments HGB A1C (test code = 4548-4) See_Comment [Automated message] The system which generated this result transmitted reference range: 4.0 - 6.0 % NGSP. The reference range was not used to interpret this result as normal/abnormal. BEVERLY (test code = BEVERLY) %A1C (NGSP) Interpretation (ADA)4.8-5.6 ? ? Normal or (Non-Diabetic Range)5.7-6.4 ? ? Increased Risk (Pre-Diabetic)>6.5 ?Diabetes Indicated Lab Interpretation (test code = 49576-3) Normal [facility]A1C)2019-08-02 17:33:00* Test Item Value Reference Range Interpretation Comments HGB A1C (test code = 4548-4) See_Comment [Automated message] The system which generated this result transmitted reference range: 4.0 - 6.0 % NGSP. The reference range was not used to interpret this result as normal/abnormal. BEVERLY (test code = BEVERLY) %A1C (NGSP) Interpretation (ADA)4.8-5.6 ? ? Normal or (Non-Diabetic Range)5.7-6.4 ? ? Increased Risk (Pre-Diabetic)>6.5 ?Diabetes Indicated Lab Interpretation (test code = 03981-1) Normal [facility]A1C)2019-08-02 17:33:00* Test Item Value Reference Range Interpretation Comments HGB A1C (test code = 4548-4) See_Comment [Automated message] The system which generated this result transmitted reference range: 4.0 - 6.0 % NGSP. The reference range was not used to interpret this result as normal/abnormal. BEVERLY (test code = BEVERLY) %A1C (NGSP) Interpretation (ADA)4.8-5.6 ? ? Normal or (Non-Diabetic Range)5.7-6.4 ? ? Increased Risk (Pre-Diabetic)>6.5 ?Diabetes Indicated Lab Interpretation (test code = 95683-1) Normal [facility] (A1C)2019-08-02 17:33:00* Test Item Value Reference Range Interpretation Comments HGB A1C (test code = 4548-4) See_Comment [Automated message] The system which generated this result transmitted reference range: 4.0 - 6.0 % NGSP. The reference range was not used to interpret this result as normal/abnormal. BEVERLY (test code = BEVERLY) %A1C (NGSP) Interpretation (ADA)4.8-5.6 ? ? Normal or (Non-Diabetic Range)5.7-6.4 ? ? Increased Risk (Pre-Diabetic)>6.5 ?Diabetes Indicated Lab Interpretation (test code = 28573-5) Normal [facility]A1C)2019-08-02 17:33:00* Test Item Value Reference Range Interpretation Comments HGB A1C (test code = 4548-4) See_Comment [Automated message] The system which generated this result transmitted reference range: 4.0 - 6.0 % NGSP. The reference range was not used to interpret this result as normal/abnormal. BEVERLY (test code = BEVERLY) %A1C (NGSP) Interpretation (ADA)4.8-5.6 ? ? Normal or (Non-Diabetic Range)5.7-6.4 ? ? Increased Risk (Pre-Diabetic)>6.5 ?Diabetes Indicated Lab Interpretation (test code = 99387-2) Normal [facility]A1C)2019-08-02 17:33:00* Test Item Value Reference Range Interpretation Comments HGB A1C (test code = 4548-4) See_Comment [Automated message] The system which generated this result transmitted reference range: 4.0 - 6.0 % NGSP. The reference range was not used to interpret this result as normal/abnormal. BEVERLY (test code = BEVERLY) %A1C (NGSP) Interpretation (ADA)4.8-5.6 ? ? Normal or (Non-Diabetic Range)5.7-6.4 ? ? Increased Risk (Pre-Diabetic)>6.5 ?Diabetes Indicated Lab Interpretation (test code = 04227-5) [facility] [id number] 17:19:00* Test Item Value Reference Range Interpretation Comme nts WBC (test code = 6690-2) See_Comment [[employer]] The system which generated this result transmitted reference range: 4.20 - 10.70 10*3/?L. The reference range was not used to interpret this result as normal/abnormal. RBC (test code = 789-8) See_Comment [[employer]] The system which generated this result transmitted reference range: 4.26 - 5.52 10*6/?L. The reference range was not used to interpret this result as normal/abnormal. HGB (test code = 718-7) 15.8 g/dL 12.2-16.4 HCT (test code = 4544-3) 48.5 % 38.4-49.3 MCV (test code = 787-2) 91.3 fL 81.7-95.6 MCH (test code = 785-6) 29.8 pg 26.1-32.7 MCHC (test code = 786-4) 32.6 g/dL 31.2-35 RDW-SD (test code = 95829-9) 42.0 fL 38.5-51.6 RDW-CV (test code = 788-0) 12.6 % 12.1-15.4 PLT (test code = 777-3) See_Comment [Automated messa ge] The system which generated this result transmitted reference range: 150 - 328 10*3/?L. The reference range was not used to interpret this result as normal/abnormal. MPV (test code = 45513-7) 12.3 fL 9.8-13 NRBC/100 WBC (test code = 5608693822) See_Comment [Automated me [employer]age] The system which generated this result transmitted reference range: 0.0 - 10.0 /100 WBCs. The reference range was not used to interpret this result as normal/abnormal. NRBC x10^3 (test code = 2196097457) <0.01 See_Comment [Automated me [employer]age] The system which generated this result transmitted reference range: 10*3/?L. The reference range was not used to interpret this result as normal/abnormal. GRAN MAT (NEUT) % (test code = 770-8) 63.9 % IMM GRAN % (test code = 7706164667) 0.60 % LYMPH % (test code = 736-9) 26.1 % MONO % (test code = 5905-5) 5.4 % EOS % (test code = 713-8) 3.6 % BASO % (test code = 706-2) 0.4 % GRAN MAT x10^3(ANC) (test code = 4184904533) 5.29 10*3/uL 1.99-6.95 IMM GRAN x10^3 (test code = 2773761137) 0.05 10*3/uL 0-0.06 LYMPH x10^3 (test code = 731-0) 2.16 10*3/uL 1.09-3.23 MONO x10^3 (test code = 742-7) 0.45 10*3/uL 0.36-1.02 EOS x10^3 (test code = 711-2) 0.30 10*3/uL 0.06-0.53 BASO x10^3 (test code = 704-7) 0.03 10*3/uL 0.01-0.09 [facility] WITH [id number] 17:19:00* Test Item Value Reference Range Interpretation Comme nts WBC (test code = 6690-2) See_Comment [Automated messa ge] The system which generated this result transmitted reference range: 4.20 - 10.70 10*3/?L. The reference range was not used to interpret this result as normal/abnormal. RBC (test code = 789-8) See_Comment [Automated messa ge] The system which generated this result transmitted reference range: 4.26 - 5.52 10*6/?L. The reference range was not used to interpret this result as normal/abnormal. HGB (test code = 718-7) 15.8 g/dL 12.2-16.4 HCT (test code = 4544-3) 48.5 % 38.4-49.3 MCV (test code = 787-2) 91.3 fL 81.7-95.6 MCH (test code = 785-6) 29.8 pg 26.1-32.7 MCHC (test code = 786-4) 32.6 g/dL 31.2-35 RDW-SD (test code = 18704-7) 42.0 fL 38.5-51.6 RDW-CV (test code = 788-0) 12.6 % 12.1-15.4 PLT (test code = 777-3) See_Comment [Automated messa ge] The system which generated this result transmitted reference range: 150 - 328 10*3/?L. The reference range was not used to interpret this result as normal/abnormal. MPV (test code = 01237-2) 12.3 fL 9.8-13 NRBC/100 WBC (test code = 0816931110) See_Comment [Automated me ssage] The system which generated this result transmitted reference range: 0.0 - 10.0 /100 WBCs. The reference range was not used to interpret this result as normal/abnormal. NRBC x10^3 (test code = 4745847465) <0.01 See_Comment [Automated me ssage] The system which generated this result transmitted reference range: 10*3/?L. The reference range was not used to interpret this result as normal/abnormal. GRAN MAT (NEUT) % (test code = 770-8) 63.9 % IMM GRAN % (test code = 6880661179) 0.60 % LYMPH % (test code = 736-9) 26.1 % MONO % (test code = 5905-5) 5.4 % EOS % (test code = 713-8) 3.6 % BASO % (test code = 706-2) 0.4 % GRAN MAT x10^3(ANC) (test code = 6791351878) 5.29 10*3/uL 1.99-6.95 IMM GRAN x10^3 (test code = 1485739403) 0.05 10*3/uL 0-0.06 LYMPH x10^3 (test code = 731-0) 2.16 10*3/uL 1.09-3.23 MONO x10^3 (test code = 742-7) 0.45 10*3/uL 0.36-1.02 EOS x10^3 (test code = 711-2) 0.30 10*3/uL 0.06-0.53 BASO x10^3 (test code = 704-7) 0.03 10*3/uL 0.01-0.09 [facility] WITH [id number] 17:19:00* Test Item Value Reference Range Interpretation Comme nts WBC (test code = 6690-2) See_Comment [Automated messa ge] The system which generated this result transmitted reference range: 4.20 - 10.70 10*3/?L. The reference range was not used to interpret this result as normal/abnormal. RBC (test code = 789-8) See_Comment [Automated messa ge] The system which generated this result transmitted reference range: 4.26 - 5.52 10*6/?L. The reference range was not used to interpret this result as normal/abnormal. HGB (test code = 718-7) 15.8 g/dL 12.2-16.4 HCT (test code = 4544-3) 48.5 % 38.4-49.3 MCV (test code = 787-2) 91.3 fL 81.7-95.6 MCH (test code = 785-6) 29.8 pg 26.1-32.7 MCHC (test code = 786-4) 32.6 g/dL 31.2-35 RDW-SD (test code = 11732-8) 42.0 fL 38.5-51.6 RDW-CV (test code = 788-0) 12.6 % 12.1-15.4 PLT (test code = 777-3) See_Comment [Automated messa ge] The system which generated this result transmitted reference range: 150 - 328 10*3/?L. The reference range was not used to interpret this result as normal/abnormal. MPV (test code = 37818-1) 12.3 fL 9.8-13 NRBC/100 WBC (test code = 0635679921) See_Comment [Automated me ssage] The system which generated this result transmitted reference range: 0.0 - 10.0 /100 WBCs. The reference range was not used to interpret this result as normal/abnormal. NRBC x10^3 (test code = 5127008557) <0.01 See_Comment [Automated me ssage] The system which generated this result transmitted reference range: 10*3/?L. The reference range was not used to interpret this result as normal/abnormal. GRAN MAT (NEUT) % (test code = 770-8) 63.9 % IMM GRAN % (test code = 9518630159) 0.60 % LYMPH % (test code = 736-9) 26.1 % MONO % (test code = 5905-5) 5.4 % EOS % (test code = 713-8) 3.6 % BASO % (test code = 706-2) 0.4 % GRAN MAT x10^3(ANC) (test code = 7611085514) 5.29 10*3/uL 1.99-6.95 IMM GRAN x10^3 (test code = 9848235435) 0.05 10*3/uL 0-0.06 LYMPH x10^3 (test code = 731-0) 2.16 10*3/uL 1.09-3.23 MONO x10^3 (test code = 742-7) 0.45 10*3/uL 0.36-1.02 EOS x10^3 (test code = 711-2) 0.30 10*3/uL 0.06-0.53 BASO x10^3 (test code = 704-7) 0.03 10*3/uL 0.01-0.09 [facility] WITH [id number] 17:19:00* Test Item Value Reference Range Interpretation Comme nts WBC (test code = 6690-2) See_Comment [Automated messa ge] The system which generated this result transmitted reference range: 4.20 - 10.70 10*3/?L. The reference range was not used to interpret this result as normal/abnormal. RBC (test code = 789-8) See_Comment [Automated messa ge] The system which generated this result transmitted reference range: 4.26 - 5.52 10*6/?L. The reference range was not used to interpret this result as normal/abnormal. HGB (test code = 718-7) 15.8 g/dL 12.2-16.4 HCT (test code = 4544-3) 48.5 % 38.4-49.3 MCV (test code = 787-2) 91.3 fL 81.7-95.6 MCH (test code = 785-6) 29.8 pg 26.1-32.7 MCHC (test code = 786-4) 32.6 g/dL 31.2-35 RDW-SD (test code = 41801-0) 42.0 fL 38.5-51.6 RDW-CV (test code = 788-0) 12.6 % 12.1-15.4 PLT (test code = 777-3) See_Comment [Automated messa ge] The system which generated this result transmitted reference range: 150 - 328 10*3/?L. The reference range was not used to interpret this result as normal/abnormal. MPV (test code = 02075-7) 12.3 fL 9.8-13 NRBC/100 WBC (test code = 9917730055) See_Comment [Automated [employer] ssage] The system which generated this result transmitted reference range: 0.0 - 10.0 /100 WBCs. The reference range was not used to interpret this result as normal/abnormal. NRBC x10^3 (test code = 9689695337) <0.01 See_Comment [Automated me ssage] The system which generated this result transmitted reference range: 10*3/?L. The reference range was not used to interpret this result as normal/abnormal. GRAN MAT (NEUT) % (test code = 770-8) 63.9 % IMM GRAN % (test code = 0956180949) 0.60 % LYMPH % (test code = 736-9) 26.1 % MONO % (test code = 5905-5) 5.4 % EOS % (test code = 713-8) 3.6 % BASO % (test code = 706-2) 0.4 % GRAN MAT x10^3(ANC) (test code = 3005487383) 5.29 10*3/uL 1.99-6.95 IMM GRAN x10^3 (test code = 3107644066) 0.05 10*3/uL 0-0.06 LYMPH x10^3 (test code = 731-0) 2.16 10*3/uL 1.09-3.23 MONO x10^3 (test code = 742-7) 0.45 10*3/uL 0.36-1.02 EOS x10^3 (test code = 711-2) 0.30 10*3/uL 0.06-0.53 BASO x10^3 (test code = 704-7) 0.03 10*3/uL 0.01-0.09 [facility] [id number] 12:20:00* Test Item Value Reference Range Interpretation Comme nts URINE CULTURE (test code = 630-4) 10,000 - 100,000 CFU/mL mixed aerobic organisms - suggests endogenous microbial contamination [facility] [id number] 12:20:00* Test Item Value Reference Range Interpretation Comme nts URINE CULTURE (test code = 630-4) 10,000 - 100,000 CFU/mL mixed aerobic organisms - suggests endogenous microbial contamination [facility] [id number] 12:20:00* Test Item Value Reference Range Interpretation Comme nts URINE CULTURE (test code = 630-4) 10,000 - 100,000 CFU/mL mixed aerobic organisms - suggests endogenous microbial contamination [facility] [id number] 12:20:00* Test Item Value Reference Range Interpretation Comme nts URINE CULTURE (test code = 630-4) 10,000 - 100,000 CFU/mL mixed aerobic organisms - suggests endogenous microbial contamination [facility] [id number] 12:20:00* Test Item Value Reference Range Interpretation Comme nts URINE CULTURE (test code = 630-4) 10,000 - 100,000 CFU/mL mixed aerobic organisms - suggests endogenous microbial contamination [facility] [id number] 12:20:00* Test Item Value Reference Range Interpretation Comme nts URINE CULTURE (test code = 630-4) 10,000 - 100,000 CFU/mL mixed aerobic organisms - suggests endogenous microbial contamination [facility] [id number] 12:20:00* Test Item Value Reference Range Interpretation Comme nts URINE CULTURE (test code = 630-4) 10,000 - 100,000 CFU/mL mixed aerobic organisms - suggests endogenous microbial contamination [facility] [id number] 12:20:00* Test Item Value Reference Range Interpretation Comme nts URINE CULTURE (test code = 630-4) 10,000 - 100,000 CFU/mL mixed aerobic organisms - suggests endogenous microbial contamination [facility]* Test Item Value Reference Range Interpretation Comme nts APPEARANCE (test code = 4700577490) Clear Clear COLOR (test code = 7014372700) Yellow Yellow PH (test code = 8047714373) 4.8-8.0 SP GRAVITY (test code = 3996618253) 1.003-1.030 GLU U QUAL (test code = 2851797519) Negative Negative BLOOD (test code = 0569725766) Negative Negative KETONES (test code = 7607843128) Negative Negative PROTEIN (test code = 2887-8) Negative Negative UROBILIN (test code = 6820486453) 0.2 mg/dL See_Comment [Automated messa ge] The system which generated this result transmitted reference range: 0-1.0 mg/dL. The reference range was not used to interpret this result as normal/abnormal. BILIRUBIN (test code = 0238916870) Negative Negative NITRITE (test code = 8030162186) Negative Negative LEUK BUTCH (test code = 4125512071) Negative Negative RBC/HPF (test code = 2875878114) See_Comment [Automated messa ge] The system which generated this result transmitted reference range: 0 - 3 HPF. The reference range was not used to interpret this result as normal/abnormal. WBC/HPF (test code = 3755269919) See_Comment [Automated messa ge] The system which generated this result transmitted reference range: 0 - 5 HPF. The reference range was not used to interpret this result as normal/abnormal. BACTERIA (test code = 5789106462) Negative Negative Lab Interpretation (test code = 67200-8) [facility]:00* Test Item Value Reference Range Interpretation Comme nts APPEARANCE (test code = 3456032990) Clear Clear COLOR (test code = 4459053388) Yellow Yellow PH (test code = 9427522888) 4.8-8.0 SP GRAVITY (test code = 7108906345) 1.003-1.030 GLU U QUAL (test code = 1855445408) Negative Negative BLOOD (test code = 7529614999) Negative Negative KETONES (test code = 7479925709) Negative Negative PROTEIN (test code = 2887-8) Negative Negative UROBILIN (test code = 0678161794) 0.2 mg/dL See_Comment [Automated messa ge] The system which generated this result transmitted reference range: 0-1.0 mg/dL. The reference range was not used to interpret this result as normal/abnormal. BILIRUBIN (test code = 3910376869) Negative Negative NITRITE (test code = 9767706619) Negative Negative LEUK BUTCH (test code = 1208004630) Negative Negative RBC/HPF (test code = 4573166697) See_Comment [Automated messa ge] The system which generated this result transmitted reference range: 0 - 3 HPF. The reference range was not used to interpret this result as normal/abnormal. WBC/HPF (test code = 9889314709) See_Comment [Automated messa ge] The system which generated this result transmitted reference range: 0 - 5 HPF. The reference range was not used to interpret this result as normal/abnormal. BACTERIA (test code = 1839391842) Negative Negative Lab Interpretation (test code = 44154-5) [facility] 00:37:00* Test Item Value Reference Range Interpretation Comme nts APPEARANCE (test code = 6420500978) Clear Clear COLOR (test code = 3854562227) Yellow Yellow PH (test code = 9148789663) 4.8-8.0 SP GRAVITY (test code = 8514632131) 1.003-1.030 GLU U QUAL (test code = 4143928713) Negative Negative BLOOD (test code = 3466174065) Negative Negative KETONES (test code = 6901384390) Negative Negative PROTEIN (test code = 2887-8) Negative Negative UROBILIN (test code = 1150538107) 0.2 mg/dL See_Comment [Automated messa ge] The system which generated this result transmitted reference range: 0-1.0 mg/dL. The reference range was not used to interpret this result as normal/abnormal. BILIRUBIN (test code = 0452584585) Negative Negative NITRITE (test code = 6775015785) Negative Negative LEUK BUTCH (test code = 6886385922) Negative Negative RBC/HPF (test code = 4618785779) See_Comment [Automated messa ge] The system which generated this result transmitted reference range: 0 - 3 HPF. The reference range was not used to interpret this result as normal/abnormal. WBC/HPF (test code = 5426216808) See_Comment [Automated messa ge] The system which generated this result transmitted reference range: 0 - 5 HPF. The reference range was not used to interpret this result as normal/abnormal. BACTERIA (test code = 3368174864) Negative Negative Lab Interpretation (test code = 89101-8) [facility] 00:37:00* Test Item Value Reference Range Interpretation Comme nts APPEARANCE (test code = 5910600806) Clear Clear COLOR (test code = 3604287888) Yellow Yellow PH (test code = 6565863190) 4.8-8.0 SP GRAVITY (test code = 4358791877) 1.003-1.030 GLU U QUAL (test code = 9415891679) Negative Negative BLOOD (test code = 1016443307) Negative Negative KETONES (test code = 3793878368) Negative Negative PROTEIN (test code = 2887-8) Negative Negative UROBILIN (test code = 1388355453) 0.2 mg/dL See_Comment [Automated messa ge] The system which generated this result transmitted reference range: 0-1.0 mg/dL. The reference range was not used to interpret this result as normal/abnormal. BILIRUBIN (test code = 2674674402) Negative Negative NITRITE (test code = 3849946927) Negative Negative LEUK BUTCH (test code = 8086868603) Negative Negative RBC/HPF (test code = 1611486851) See_Comment [Automated messa ge] The system which generated this result transmitted reference range: 0 - 3 HPF. The reference range was not used to interpret this result as normal/abnormal. WBC/HPF (test code = 7327196256) See_Comment [Automated messa ge] The system which generated this result transmitted reference range: 0 - 5 HPF. The reference range was not used to interpret this result as normal/abnormal. BACTERIA (test code = 6720194447) Negative Negative Lab Interpretation (test code = 52919-9) [facility]:37:00* Test Item Value Reference Range Interpretation Comme nts APPEARANCE (test code = 1062646410) Clear Clear COLOR (test code = 4376013584) Yellow Yellow PH (test code = 8441865898) 4.8-8.0 SP GRAVITY (test code = 7576625484) 1.003-1.030 GLU U QUAL (test code = 7882354776) Negative Negative BLOOD (test code = 9336054402) Negative Negative KETONES (test code = 2002739670) Negative Negative PROTEIN (test code = 2887-8) Negative Negative UROBILIN (test code = 9042316822) 0.2 mg/dL See_Comment [Automated messa ge] The system which generated this result transmitted reference range: 0-1.0 mg/dL. The reference range was not used to interpret this result as normal/abnormal. BILIRUBIN (test code = 4000857651) Negative Negative NITRITE (test code = 3668226668) Negative Negative LEUK BUTCH (test code = 4502762326) Negative Negative RBC/HPF (test code = 9324742019) See_Comment [Automated [employer]] The system which generated this result transmitted reference range: 0 - 3 HPF. The reference range was not used to interpret this result as normal/abnormal. WBC/HPF (test code = 8084563055) See_Comment [Automated [employer]] The system which generated this result transmitted reference range: 0 - 5 HPF. The reference range was not used to interpret this result as normal/abnormal. BACTERIA (test code = 5465913965) Negative Negative Lab Interpretation (test code = 22729-3) [facility] Test Item Value Reference Range Interpretation Comme nts APPEARANCE (test code = 5907730688) Clear Clear COLOR (test code = 5611484837) Yellow Yellow PH (test code = 2157002752) 4.8-8.0 SP GRAVITY (test code = 6159580064) 1.003-1.030 GLU U QUAL (test code = 7651126864) Negative Negative BLOOD (test code = 1910009124) Negative Negative KETONES (test code = 1746743275) Negative Negative PROTEIN (test code = 2887-8) Negative Negative UROBILIN (test code = 8811539156) 0.2 mg/dL See_Comment [Automated [employer]] The system which generated this result transmitted reference range: 0-1.0 mg/dL. The reference range was not used to interpret this result as normal/abnormal. BILIRUBIN (test code = 4878182880) Negative Negative NITRITE (test code = 4347027877) Negative Negative LEUK BUTCH (test code = 1613968296) Negative Negative RBC/HPF (test code = 9865895477) See_Comment [Automated [employer]] The system which generated this result transmitted reference range: 0 - 3 HPF. The reference range was not used to interpret this result as normal/abnormal. WBC/HPF (test code = 5122127234) See_Comment [Automated [employer]] The system which generated this result transmitted reference range: 0 - 5 HPF. The reference range was not used to interpret this result as normal/abnormal. BACTERIA (test code = 7133915420) Negative Negative Lab Interpretation (test code = 78590-4) [facility] 00:37:00* Test Item Value Reference Range Interpretation Comme nts APPEARANCE (test code = 2908586803) Clear Clear COLOR (test code = 2047548776) Yellow Yellow PH (test code = 7023822160) 4.8-8.0 SP GRAVITY (test code = 4263377862) 1.003-1.030 GLU U QUAL (test code = 8539797467) Negative Negative BLOOD (test code = 3066494845) Negative Negative KETONES (test code = 4292128036) Negative Negative PROTEIN (test code = 2887-8) Negative Negative UROBILIN (test code = 9379130900) 0.2 mg/dL See_Comment [Automated messa ge] The system which generated this result transmitted reference range: 0-1.0 mg/dL. The reference range was not used to interpret this result as normal/abnormal. BILIRUBIN (test code = 4809818772) Negative Negative NITRITE (test code = 5328761196) Negative Negative LEUK BUTCH (test code = 6492173575) Negative Negative RBC/HPF (test code = 0584122646) See_Comment [Automated messa ge] The system which generated this result transmitted reference range: 0 - 3 HPF. The reference range was not used to interpret this result as normal/abnormal. WBC/HPF (test code = 3835537649) See_Comment [Automated messa ge] The system which generated this result transmitted reference range: 0 - 5 HPF. The reference range was not used to interpret this result as normal/abnormal. BACTERIA (test code = 4838139232) Negative Negative Lab Interpretation (test code = 22958-0) [facility] 00:37:00* Test Item Value Reference Range Interpretation Comme nts APPEARANCE (test code = 3533199364) Clear Clear COLOR (test code = 5318379543) Yellow Yellow PH (test code = 8195585429) 4.8-8.0 SP GRAVITY (test code = 3871381078) 1.003-1.030 GLU U QUAL (test code = 4897984771) Negative Negative BLOOD (test code = 9094461605) Negative Negative KETONES (test code = 4787859813) Negative Negative PROTEIN (test code = 2887-8) Negative Negative UROBILIN (test code = 5345699511) 0.2 mg/dL See_Comment [Automated messa ge] The system which generated this result transmitted reference range: 0-1.0 mg/dL. The reference range was not used to interpret this result as normal/abnormal. BILIRUBIN (test code = 0807681202) Negative Negative NITRITE (test code = 7588327401) Negative Negative LEUK BUTCH (test code = 2513613786) Negative Negative RBC/HPF (test code = 4001281822) See_Comment [Automated messa ge] The system which generated this result transmitted reference range: 0 - 3 HPF. The reference range was not used to interpret this result as normal/abnormal. WBC/HPF (test code = 1404373354) See_Comment [Automated messa ge] The system which generated this result transmitted reference range: 0 - 5 HPF. The reference range was not used to interpret this result as normal/abnormal. BACTERIA (test code = 3101737311) Negative Negative Lab Interpretation (test code = 82321-6) [facility] 00:37:00* Test Item Value Reference Range Interpretation Comme nts APPEARANCE (test code = 0137648189) Clear Clear COLOR (test code = 8027059110) Yellow Yellow PH (test code = 7110213886) 4.8-8.0 SP GRAVITY (test code = 8331662812) 1.003-1.030 GLU U QUAL (test code = 5358390266) Negative Negative BLOOD (test code = 6511127951) Negative Negative KETONES (test code = 9457924299) Negative Negative PROTEIN (test code = 2887-8) Negative Negative UROBILIN (test code = 6109150997) 0.2 mg/dL See_Comment [Automated messa ge] The system which generated this result transmitted reference range: 0-1.0 mg/dL. The reference range was not used to interpret this result as normal/abnormal. BILIRUBIN (test code = 4589727472) Negative Negative NITRITE (test code = 2421511222) Negative Negative LEUK BUTCH (test code = 4684919086) Negative Negative RBC/HPF (test code = 9870698446) See_Comment [Automated messa ge] The system which generated this result transmitted reference range: 0 - 3 HPF. The reference range was not used to interpret this result as normal/abnormal. WBC/HPF (test code = 2134868930) See_Comment [Automated messa ge] The system which generated this result transmitted reference range: 0 - 5 HPF. The reference range was not used to interpret this result as normal/abnormal. BACTERIA (test code = 5705555341) Negative Negative Lab Interpretation (test code = 04934-4) Normal [facility] SobtqzRUJWKOLBDZ9822-27-63 00:37:00* Test Item Value Reference Range Interpretation Comme nts APPEARANCE (test code = 5013137384) Clear Clear COLOR (test code = 2657630017) Yellow Yellow PH (test code = 9875415493) 4.8-8.0 SP GRAVITY (test code = 2103974112) 1.003-1.030 GLU U QUAL (test code = 4434626908) Negative Negative BLOOD (test code = 8976225681) Negative Negative KETONES (test code = 4193521630) Negative Negative PROTEIN (test code = 2887-8) Negative Negative UROBILIN (test code = 7140744656) 0.2 mg/dL See_Comment [[employer]] The system which generated this result transmitted reference range: 0-1.0 mg/dL. The reference range was not used to interpret this result as normal/abnormal. BILIRUBIN (test code = 0780968493) Negative Negative NITRITE (test code = 5852562853) Negative Negative LEUK BUTCH (test code = 5246525712) Negative Negative RBC/HPF (test code = 3171713513) See_Comment [[employer]] The system which generated this result transmitted reference range: 0 - 3 HPF. The reference range was not used to interpret this result as normal/abnormal. WBC/HPF (test code = 1654972627) See_Comment [[employer]] The system which generated this result transmitted reference range: 0 - 5 HPF. The reference range was not used to interpret this result as normal/abnormal. BACTERIA (test code = 5594136706) Negative Negative Lab Interpretation (test code = 01995-2) [facility] [id number] 21:46:00 * Test Item Value Reference Range Interpretation Comme nts POCT Occult (Guaiac) Blood ( test code = 2335-8) NEGATIVE Negative - Negative [facility] [id number] 21:46:00 * Test Item Value Reference Range Interpretation Comme nts POCT Occult (Guai[place]) Blood ( test code = 2335-8) NEGATIVE Negative - Negative [facility] ([facility]) [id number] 21:46:00 * Test Item Value Reference Range Interpretation Comme nts POCT Occult ([place]ai[place]) Blood ( test code = 2335-8) NEGATIVE Negative - [facility] [id number] 21:46:00 * Test Item Value Reference Range Interpretation Comme nts POCT Occult ([place]ai[place]) Blood ( test code = 2335-8) NEGATIVE Negative - Negative [facility]) [id number] 21:46:00 * Test Item Value Reference Range Interpretation Comme nts POCT Occult (Guaiac) Blood ( test code = 2335-8) NEGATIVE Negative - Negative [facility] ([facility]) [id number] 21:46:00 * Test Item Value Reference Range Interpretation Comme nts POCT Occult (Guai[place]) Blood ( test code = 2335-8) NEGATIVE Negative - Negative [facility]PO[facility] (GU[facility]) [id number] 21:46:00 * Test Item Value Reference Range Interpretation Comme nts POCT Occult ([place]) Blood ( test code = 2335-8) NEGATIVE Negative - Negative [facility]PO[facility] ([facility]) [id number] 21:46:00 * Test Item Value Reference Range Interpretation Comme nts POCT Occult ([place]) Blood ( test code = 2335-8) NEGATIVE Negative - Negative [facility]PO[facility] (GU[facility]) [id number] 21:46:00 * Test Item Value Reference Range Interpretation Comme nts POCT Occult ([place]) Blood ( test code = 2335-8) NEGATIVE Negative - Negative [facility]PO[facility] ([facility]) [id number] 21:46:00 * Test Item Value Reference Range Interpretation Comme nts POCT Occult ([place]) Blood ( test code = 2335-8) NEGATIVE Negative - Negative [facility] [id number] 04:33:00* Test Item Value Reference Range Interpretation Comme nts Sodium (test code = NA) 140 mmol/l 138-146 Potassium (test code = K) 3.9 mmol/l 3.5-4.9 Chloride (test code = CL) 106 mmol/l 98-109 IONIZED CALCIUM (test code = ICA) 1.04 CO2 (test code = CO2) 22 mmol/l 24-29 L Glucose (test code = GLU) 105 mg/dl 70-105 BUN (test code = BUN) 8 mg/dl 6-17 Creatinine (test code = CREA) 0.7 mg/dl 0.6-1.[address] [facility] LAB CBC WITH AUTO [id number] 04:32:00* Test Item Value Reference Range Interpretation Comme nts WBC (test code = WBC) 12.83 10\\S\\3/ul 4.80-10.80 H RBC (test code = RBC) 5.11 10\\S\\6/ul 4.70-6.10 Hemoglobin (test code = HGB) 14.8 gm/dl 14.0-18.0 Hematocrit (test code = HCT) 46.9 % 42.0-50.0 MCV (test code = MCV) 91.8 fL 80.0-94.0 MCH (test code = MCH) 29.0 pg 27.0-31.0 MCHC (test code = MCHC) 31.6 gm/dl 33.0-37.0 L Platelet (test code = PLT) 227 10\\S\\3/ul 130-400 RDW (test code = RDWVC) 12.7 % 11.5-14.5 MPV (test code = MPV) 12.4 fL 7.4-10.4 A NE% (test code = NE) 76.9 % 42.0-75.0 H LY% (test code = LY) 16.3 % 13.0-42.0 MO% (test code = MO) 4.1 % 4.0-14.0 EO% (test code = EO) 2.3 % 1.0-3.0 BA% (test code = BA) 0.2 % 1.0-3.0 L IG% (test code = IG%) 0.2 % 0.0-0.4 [facility] InckinHEPATIC FUNCTION PANEL (LIVER)2018-10-19 22:33:00 * Test Item Value Reference Range Interpretation Comme nts T Protein (test code = TP) 7.3 gm/dl 6.4-8.2 Albumin (test code = ALB) 3.7 gm/dl 3.4-5.0 AST (SGOT) (test code = AST) 15 U/L 15-37 ALT (SGPT) (test code = ALT) 24 U/L 13-61 Alkaline Phos (test code = ALKP) 67 U/L 45-117 Total Bilirubin (test code = TBIL) 0.5 mg/dl 0.2-1.0 Direct Bilirubin (test code = DBIL) <0.1 mg/dl 0.0-0.2 N Indirect Bilirubin (test cod e = IBIL) 0.5 mg/dl 0.0-1.1 ER [address] [facility]-fkinCT ABDOMEN/PELVIS W/CONTRAST 2018-10-19 21:40:04EXAM:CT Abdomen and Pelvis With ContrastEXAM DATE/TIME:10/19/2018 7:48 PMCLINICAL HISTORY:18 years old, male; Constipation; Abdominal painTECHNIQUE:Imaging protocol: Axial computed tomography images ofthe abdomen and pelviswith intravenous contrast. Coronal and sagittal reformatted images were createdand reviewed.Radiation optimization: All CT scans at this facility use at least one ofthese dose optimization techniques: automated exposure control; mA and/or kVadjustment per patient size (includes targeted exams where dose is matched toclinical indication); or iterative reconstruction.Contrast material: ISOVUE 300; Contrast volume: 80 ml; Contrast route: IV;COMPARISON:No relevant prior studies available.FINDINGS:Lungs: Thin linear atelectasis at the right lung base. Lung bases otherwiseclear.Liver: Normal. No mass.Gallbladder and bile ducts: Normal. No calcified stones. No ductal dilation.Pancreas: Normal. No ductal dilation.Spleen: Normal. No splenomegaly.Adrenals: Normal. No mass.Kidneys and ureters: Normal. No hydronephrosis.Stomach and bowel: No acute findings. No obstruction. No mucosal thickening.No diverticulitis.Appendix: No evidence of appendicitis.Intraperitoneal space: Normal. No free air. No significant fluid collection.Vasculature: Normal. No abdominal aortic aneurysm.Lymph nodes: Normal. No enlarged lymph nodes.Bladder: Unremarkable as visualized.Reproductive: Unremarkable as visualized.Bones/joints: No acute fracture. No dislocation.Soft tissues: Unremarkable.IMPRESSION:No acute findings.This Final report was electronically signed by Mariella Cuba MD on 9:39 PM CDT.Dictated By: MARIELLA CUBADate: 10/19/2018 21:39[facility]2018-10-19 19:48:18Procedure: XR ABDOMEN 1 VIEW (KUB)Order Date: 10/19/2018 7:06 PMOrdering Provider: DAYRON Nginical Indication: [id number]: ConstipationComparison: NoneFindings:There is moderate retained stool within the colon.There is no small or large bowel distention.There are no air-fluid levels. There isno pneumoperitoneum.There are no suspicious calcifications.There is no skeletal abnormality.Impression:1. Constipation without bowel obstruction.2. Exam is otherwise negative.This final report was electronically signed by Dr Jere Whaley MD 10/19/20187:42 PMDictated By: JERE WHALEY.Date: 10/19/2018 19:42[facility]
[2024-02-02 10:07] LABS: Albumin 3.5 g/dL (3.4-5.0); Albumin/Globulin Ratio 0.9 (1.1-1.8); Bilirubin Total 0.3 mg/dL (0.2-1.0); Protein, Total 7.5 g/dL (6.4-8.2)
--- NOTE | 2024-02-02 10:26 | RAD REPORT ---
EXAMINATION: CT ABDOMEN AND PELVIS WITH CONTRAST CLINICAL INDICATION: umbilical infection TECHNIQUE: CT abdomen and pelvis was performed, after the administration of IV contrast, as [facility]. Axial, sagittal and coronal reconstructions were obtained. One or more of the following dose reduction techniques were used: Automated exposure control, adjustment of the mA and k V according to patient size, and iterative reconstruction. Unless otherwise specified, incidental findings do not require dedicated imaging follow-up. COMPARISON: 04/01/2020 FINDINGS: LOWER CHEST: The visualized lung bases are clear. LIVER: Normal in size and contour. No focal lesion. Grossly unremarkable gallbladder. SPLEEN: Normal size. No focal lesion. PANCREAS: No mass, ductal dilation, or aaliyah-pancreatic fluid. ADRENALS: Normal; no mass. KIDNEYS: Normal size and contour. No hydronephrosis. GASTROINTESTINAL TRACT: No evidence of free air, significant intra-abdominal free fluid, bowel obstru ction or abscess. Moderate stool is retained throughout the colon. APPENDIX: Normal appendix. LYMPH NODES: No lymphadenopathy. MUSCULOSKELETAL: No acute or suspicious osseous abnormality. ADDITIONAL FINDINGS: Mild soft tissue thickening in the region of the umbilicus. No focal fluid colle ction to suggest abscess. IMPRESSION: Mild focal skin thickening in the region of the umbilicus without drainable abscess. Moderate stool throughout the colon.
--- NOTE | 2024-02-02 10:43 | ER ---
Nurse's Notes [facility] Name: Deon Claudio Age: 23 yrs Sex: Male : 2000 Arrival Date: 02/02/2024 Time: 09:13 Bed 14 Private MD: Diagnosis: Cellulitis of abdominal wall Presentation: 02/01 09:25 Chief complaint: Patient states: Belly button infection for over 2 weeks. Completed ll1 antibiotics but site is not better. No fever. Brownish green liquid from site. Coronavirus screen: Client denies travel out of the [place] in the last 14 days. At this time, the client does not indicate any symptoms associated with coronavirus-19. Ebola Screen: Patient denies travel to an Ebola-affected area in the 21 days before illness onset. Initial Sepsis Screen: Does the patient meet any 2 criteria? No. Patient's initial sepsis screen is negative. Does the patient have a suspected source of infection? No. Patient's initial sepsis screen is negative. Risk Assessment: Do you want to hurt yourself or someone else? Patient reports no desire to harm self or others. Onset of symptoms was January 19, 2024. 09:25 Method Of Arrival: Ambulatory ll1 09:25 Acuity: JORGE A 3 ll1 Triage Assessment: 09:58 General: Appears uncomfortable, Behavior is calm, cooperative, appropriate for age. ll1 Pain: Complains of pain in umbilical area. GI: Reports lower abdominal pain. Derm: Abscess located on umbilical area. Historical: - Allergies: 09:25 No Known Allergies; ll1 - PMHx: 09:25 Seizures; Rumination Sx; Autism; ll1 - Immunization history:: Adult Immunizations up to date. - Infectious Disease History:: Denies. - Social history:: Smoking status: Patient denies any tobacco usage or history of. - Family history:: not pertinent. - Hospitalizations: : No recent hospitalization is reported. Screenin:44 [facility] ED Fall Risk Assessment (Adult) History of falling in the last 3 months, mb9 including since admission No falls in past 3 months (0 pts) Confusion or Disorientation No (0 pts) Intoxicated or Sedated No (0 pts) Impaired Gait No (0 pts) Mobility Assist Device Used No (0 pt) Altered Elimination No (0 pt) Score/Fall Risk Level 0 - 2 = Low Risk Oriented to surroundings, Maintained a safe environment, Educated pt \T\ family on fall prevention, incl call for assistance when getting out of bed. Abuse screen: Denies threats or abuse. Nutritional screening: No deficits noted. Tuberculosis screening: No symptoms or risk factors identified. Assessment: 09:42 General: Appears in no apparent distress. Behavior is calm, cooperative. Pain: mb9 Complains of pain in abdomen. Neuro: Level of Consciousness is awake, obeys commands, Oriented to Appropriate for age. Cardiovascular: Patient's skin is warm and dry. Respiratory: Airway is patent Respiratory effort is even, unlabored, Respiratory pattern is regular, symmetrical. GI: Abdomen is round non-distended, Bowel sounds present X 4 quads. Abd is soft Abdomen is tender to palpation in umbilical area. : No signs and/or symptoms were reported regarding the genitourinary system. EENT: No signs and/or symptoms were reported regarding the EENT system. Derm: purulent drainage noted to umbilicus. Erythema noted. Musculoskeletal: Range of motion: intact in all extremities. 11:20 Reassessment: No changes from previously documented assessment. Patient and/or family mb9 updated on plan of care and expected duration. Pain level reassessed. Patient is alert, oriented x 3, equal unlabored respirations, skin warm/dry/pink. Vital Signs: 09:25 BP 144 / 93; Pulse 76; Resp 20; Temp 97; Pulse Ox 95% ; Weight 170.1 kg; Height 5 ft. ll1 11 in. ; Pain 7/10; 11:20 BP 113 / 78; Pulse 70; Resp 18; Pulse Ox 100% on R/A; mb9 09:25 Body Mass Index 52.30 (170.10 kg, 180.34 cm) ll1 09:25 Pain Scale: Adult ll1 ED Course: 09:17 Patient arrived in ED. ra3 09:19 Kevin Pinedo MD is Attending Physician. rn 09:27 Triage completed. ll1 09:27 Arm band placed on. ll1 09:30 Ramona Zhang, MOON is Primary Nurse. mb9 09:31 Placed in gown. Bed in low position. Call light in reach. Side rails up X 1. Provided mb9 Education on: press call light if needing anything. Client placed on continuous cardiac and pulse oximetry monitoring. NIBP monitoring applied. 09:41 CBC with Diff Sent. bc6 09:41 CMP Sent. bc6 09:41 Initial lab(s) drawn, by me, sent to lab. Inserted saline lock: 20 gauge in right bc6 antecubital area, using aseptic technique. Blood collected. Flushed with 10 mL NS. 10:11 CT Abd/Pelvis - IV Contrast Only In Process Unspecified. EDMS 10:29 No provider procedures requiring assistance completed. mb9 10:43 John Thomas MD is Hospitalizing Provider. rn 11:21 Patient admitted, IV remains in place. mb9 Administered Medications: 11:01 Drug: vancoMYCIN IVPB 1 grams IVPB once over 2 hrs Route: IVPB; Infused Over: 2 hrs; mb9 Site: right antecubital; 11:20 Follow up: Response: No adverse reaction; IV Status: Infusion continued upon admission mb9 Medication: 09:45 VIS not applicable for this client. mb9 Outcome: 10:43 Decision to Hospitalize by Provider. rn 11:21 Admitted to Med/surg accompanied by tech, via wheelchair, reba 11:21 Condition: stable 11:21 Instructed on the need for admit, 11:35 Patient left the ED. mb9 Signatures: Dispatcher [employer] EDMS Kevin Pinedo MD MD rn Lewis, Lynsay, RN RN tony1 Ramona Zhang RN RN mb9 Lizzie Garnett [facility] Maribel Paiz ra3
--- NOTE | 2024-02-02 10:43 | EDPHYS ---
Physician Documentation [facility] Name: Deon Claudio Age: 23 yrs Sex: Male : 2000 Arrival Date: 02/02/2024 Time: 09:13 Bed 14 Private MD: ED Physician Kevin Pinedo HPI: 02/01 10:11 This 23 yrs old Male presents to ER via Ambulatory with complaints of sent by pooja Longoria: belly button psbl infection. 10:11 The patient presents with cellulitis of the abdomen. Description: draining, swollen, rn warm. Onset: The symptoms/episode began/occurred 2 week(s) ago. Possible cause(s): unknown. Modifying factors: the symptoms are alleviated by nothing, the symptoms are aggravated by touching. The patient has experienced similar episodes in the past. Patient reports on doxycycline and Bactrim for the last [address] Thomas for evaluation of possible abscess. Patient has had umbilical infections in the past that resolved with antibiotics, not this time. Continues to have drainage and pain. No fever or chills. No vomiting.. Historical: - Allergies: 09:25 No Known Allergies; ll1 - PMHx: 09:25 Seizures; Rumination Sx; Autism; ll1 - Immunization history:: Adult Immunizations up to date. - Infectious Disease History:: Denies. - Social history:: Smoking status: Patient denies any tobacco usage or history of. - Family history:: not pertinent. - Hospitalizations: : No recent hospitalization is reported. ROS: 10:11 Constitutional: Negative for fever, chills, and weight loss, Cardiovascular: Negative rn for chest pain, palpitations, and edema, Respiratory: Negative for shortness of breath, cough, wheezing, and pleuritic chest pain, Abdomen/GI: Positive for pain and swelling to umbilicus Skin: Positive for erythema around umbilicus Exam: 10:11 Constitutional: This is a well developed, well nourished patient who is awake, alert, rn and in no acute distress. Cardiovascular: Regular rate and rhythm. No pulse deficits. Abdomen/GI: Soft, mild erythema with drainage and foul smell of umbilicus. MS/ Extremity: Pulses equal, no cyanosis. Neuro: Awake and alert, GCS 15 Vital Signs: 09:25 BP 144 / 93; Pulse 76; Resp 20; Temp 97; Pulse Ox 95% ; Weight 170.1 kg; Height 5 ft. ll1 11 in. ; Pain 7/10; 11:20 BP 113 / 78; Pulse 70; Resp 18; Pulse Ox 100% on R/A; mb9 09:25 Body Mass Index 52.30 (170.10 kg, 180.34 cm) ll1 09:25 Pain Scale: Adult ll1 MDM: 09:19 Medical Screening Exam initiated rn 10:42 Differential diagnosis: abscess, cellulitis. Data reviewed: vital signs, nurses notes, furniture mechanic test result(s), radiologic studies, CT scan, and as a result, I will admit patient. Consideration of Admission/Observation Patient was admitted/placed on observation. Escalation of care including admission/observation considered. Management of patient was discussed with the following: Sheep Herder: Discussed case with Dr. Thomas, will admit to his service for IV antibiotics due to failure of outpatient antibiotic therapy.. Counseling: I had a detailed discussion with the patient and/or guardian regarding the historical points, exam findings, and any diagnostic results supporting the discharge/admit diagnosis, lab results, radiology results, the need for further work-up and treatment in the hospital. 02/01 09:34 Order name: CBC with Diff; Complete Time: 10:15 rn 02/01 09:34 Order name: CMP; Complete Time: 10:15 rn 02/01 09:34 Order name: CT Abd/Pelvis - IV Contrast Only; Complete Time: 10:38 rn 02/01 09:34 Order name: IV Saline Lock; Complete Time: 09:39 rn 02/01 09:34 Order name: Labs collected and sent; Complete Time: 09:39 rn Administered Medications: 11:01 Drug: vancoMYCIN IVPB 1 grams IVPB once over 2 hrs Route: IVPB; Infused Over: 2 hrs; mb9 Site: right antecubital; 11:20 Follow up: Response: No adverse reaction; IV Status: Infusion continued upon admission mb9 Disposition Summary: 02/02/24 10:43 Hospitalization Ordered Notes: Hospitalization Status: Observation rn Provider: John Thomas rn [facility] rn Condition: Stable rn Problem: an acute exacerbation rn Symptoms: are unchanged rn Bed/Room Type: Standard rn Room Assignment: 229(02/02/24 11:03) john Diagnosis - Cellulitis of abdominal wall rn Forms: - Medication Reconciliation Form rn - SBAR form rn - Leadership Thank You Letter rn Signatures: Dispatcher [employer] Mariel Dunn Roman, MD MD rn Addy Mcallister RN RN ll1 Leatha, Ramona Guerra RN RN mb9 Corrections: (The following items were deleted from the chart) 11:03 10:43 pooja lopez
[2024-02-02] MEDS ORDERED: NA CHLORIDE 0.9% 250 ML ONE (10:51)
[2024-02-02] MEDS ORDERED: VANCOMYCIN 1 GM/VIAL ONE (10:51)
[2024-02-02 12:06] VITALS: BMI 54.2
[2024-02-02] MEDS ORDERED: propofoL 200 MG/20 ML VIAL IV ONE ×2 (12:14→13:48)
[2024-02-02] MEDS ORDERED: MIDAZOLAM HCL 2 MG/2 ML INJ IV ONE (12:14)
[2024-02-02] MEDS ORDERED: FENTANYL CITR 100 MCG/2 ML IV ONE (12:14)
[2024-02-02] MEDS: VANCOMYCIN 1 GM in NA CHLORIDE 0.9% 250 ML IVPB ONE (12:59)
[2024-02-02] MEDS: D5.45NS W/KCL 20MEQ 1,000 ML IV SCH (13:00)
--- NOTE | 2024-02-02 13:09 | P.HP ---
Date of Service: 02/02/24 PC: This 23-year-old male presents with increased drainage and discharge from his umbilicus. HPC: This patient, who saw me about 2 weeks ago, has an area at his umbilicus that is draining thick purulent material. It has been going on for a while. He was placed on antibiotics at the time of the office visit. However it has not helped to resolve this issue. PSHx: Negative PMHx: Autism Social Hx: No known allergies Sys R: No cough, wheeze, shortness of breath no chest pain or palpitations per his mother. He is nonverbal. O/E: Awake alert vital signs are stable HEENT: Within normal limits Chest: Air entry equal bilaterally Abd: Just below the umbilicus, there is a area of redness and cellulitis. Coming from the actual bellybutton itself there is some purulent material. It is not possible to examine this at the moment due to the patient's reluctance to comply. He will be going to the operating room so I did not force the issue. [place]: Intact Data: CT scan demonstrates cellulitis around the area of the umbilicus. I was more concerned to see if this communicates with the peritoneal cavity. I feel that that is not conclusive at the moment. Impression: Periumbilical abscess Plan: I will taken the operating room for a exploration and debridement of this umbilical abscess. The risks procedure have been explained to the patient's mom. She understands and says he and wants to proceed.
[2024-02-02] MEDS: Ringers Lactate 1,000 ML IV ONE (13:13)
[2024-02-02] MEDS: DEXMEDETOMIDINE HCL 200 MCG/2 ML VIAL ONE (13:37)
[2024-02-02] MEDS: FLU (Fluarix Triv) TS24-25(6MOS UP)/PF 45 MCG/0.5 ML Syringe IM ONE (14:00)
[2024-02-02] MEDS: HYDROMORPHONE HCL 1 MG/ML INJ ONE (14:29)
--- NOTE | 2024-02-02 15:12 | P.OP ---
Preoperative diagnosis: Periumbilical abscess Postoperative diagnosis: The same Primary procedure: Exploration of periumbilical abscess Secondary procedure: Removal of infected umbilical ligament Other procedure(s): Primary closure Anesthesia: General Estimated blood loss: Less than 20 cc Specimen: Umbilical ligament and contents Operative Technique: Patient brought the operating room and placed upon the table. After the induction of adequate general anesthesia, attention was turned towards the bellybutton. On inspection we could see that there was a foreign body and there does appear to be a surgical dressing that been placed in the umbilicus to help with control the drainage. On taking a hemostat we were able to gently passively inside the wound and we can see the opening at the external umbo the local scar actually communicated downwards for about an inch and 4 inch tract which went up to where the true umbilicus of the anterior abdominal wall would be located with this in mind the area of the abdomen was now prepped with a DuraPrep solution and he was draped in the usual aseptic manner. A generous midline incision was made above the umbilical Citrix. This is brought down through the skin and subcutaneous tissue. In the fat we found the remains of the old umbilical ligament there was somewhat dilated this was dissected free from the surrounding fatty tissue and detached from the skin surfaces. This was then amputated at the level of the to umbilical cicatrix. At this point there was about a fingertip degree of laxity in this area we were able to pick at the edges of the fascial opening and approximated with some PDS sutures. The wound was now inspected to ensure adequate hemostasis. This having been done a few subcutaneous stitches were placed and the fat did not help approximated. We then used some suture subcuticular stitches to hold the skin edges together. Blanca were placed in the upper portion of the wound. 3 form the CA tricks we pursestringed a chromic stitch around this area of eschar tissue. This also had a deep suture to help hold it down to the subcutaneous tissue creating any. Surgicel cotton was now placed over our suture and staple line. Trace was placed on top of this. Using suction a OpSite, were able to vacuum close the umbilical wound. At the end the procedure he was in a stable condition was sent to the recovery room. Needle sponge instrument count were correct. No drains were placed. Transferred to: Recovery Room Condition: Good
[2024-02-02] MEDS ORDERED: HYDROCODONE/APAP 7.5/325 MG TAB PO PRN (15:52)
[2024-02-02 16:17] VITALS: O2SAT 94
[2024-02-02 16:44] VITALS: BP 119/67; TEMP 97.3
[2024-02-03] MEDS ORDERED: VANCOMYCIN 2 GM in NA CHLORIDE 0.9% 500 ML IVPB SCH
== END 2024-02-02 18:09 | disposition home or self-care (01) ==
LOC: ER 09:13 → ERHOLD 10:44 → 2ND 11:12
PROVIDERS: ADMIT Surgery; ATTEND Surgery
PROC: 0MB Bursae and Ligaments, Excision (ICD-10-PCS; 2024-02-02)
PROC: 0MBJ0ZZ Excision of Left Abdomen Bursa and Ligament, Open Approach (ICD-10-PCS; principal; 2024-02-02 13:15)
DX: M27.1 Giant cell granuloma, central (principal); L92.3 Foreign body granuloma of the skin and subcutaneous tissue; L02.216 Cutaneous abscess of umbilicus; L03.316 Cellulitis of umbilicus; F84.0 Autistic disorder
CPT/HCPCS: 96365; 85025; 36415; 88304; 80053; 74177; 99285; 20999; Q9967; J2704; J2250; J3010; J1171; G0378 ×3; J7120; J7050 ×2